=== PATIENT | male | born 1980 | race American Indian/Alaskan Native ===

== ENCOUNTER 2021-05-23 12:15 | Inpatient (IN) | payer OTHER ==
[2021-05-23] MEDS ORDERED: KETAMINE 500 MG/5 ML VIAL MDV ONE (12:18)
[2021-05-23] MEDS ORDERED: MINERAL OIL/PETROLATUM, WHITE OPHTH OINT 3.5 GM OU PRN (12:34)
[2021-05-23] MEDS ORDERED: LIP THERAPY VASELINE TP PRN (12:34)
[2021-05-23] MEDS ORDERED: KETAMINE 500 MG/5 ML VIAL MDV IV ONE (12:36)
[2021-05-23] MEDS ORDERED: TETANUS,DIPH,PERTUSS(ACELL) VACCINE 0.5 ML SYRINGE IM ONE ×2 (12:37→18:04)
--- NOTE | 2021-05-23 12:38 | Emergency Department Report ---
ED General Adult HPI - General Chief complaint: Altered Mental Status Stated complaint: UNRESPONSIVE PUI?: No Time Seen by Provider: 05/23/21 12:33 Source: EMS (Verbal report received from emergency medical services. EMS documentation not available at time of chart dictation ), RN notes reviewed, old records reviewed Mode of arrival: Stretcher Limitations: Altered Mental Status, Physical Limitation - History of Present Illness Initial comments: The patient is a 41-year-old gentleman. He is not known to myself previously. He appears to have a history of morbid obesity, hypertension, and obstructive sleep apnea. The patient arrives with EMS. History obtained from EMS as the patient is altered. EMS presents with this patient while he is receiving hys-[id number]-[id number] ventilation, with a nasal trumpet. EMS reports that they were called for complaint of altered mental status. They are not certain of the patient's last known well time. They state that the patient was apparently altered in the field, and slid down to the floor from a bed. They reported to myself her normal Accu-Chek, and it was reported to EMS that the patient is compliant with CPAP/BiPAP. EMS reported to myself that the patient moves 4 extremities in the field. EMS unable to obtain IV access in the field, and place left lower extremity IO. Upon arrival to the emergency room the patient is obtunded, without a gag reflex. Accu-Chek acceptable. EMS did report that the patient was hypoxic in the field EMS reports that they gave Narcan in the field with no effect. EMS reports they believe the patient aspirated prior to their arrival, or in the field. Patient intubated emergently for airway protection. Please see my procedure note. Patient is now post intubation. He does respond to stimuli and moves extremities intermittently. He is not able to describe the qualitative nature of symptoms, exacerbating factors, relieving factors or aggravating factors. No additional history is available at this time. Patient at this point time is not accompanied by friends or family at this time for collateral information or additional information EMS reported to myself that the patient had recently been at [facility]. -: unknown - Related Data Previous Rx's Medication Instructions Recorded Last Taken Type Amoxicillin [Amoxicillin TAB] 875 mg PO BID #20 tablet 11/12/14 Unknown Rx Allergies Allergy/AdvReac Type Severity Reaction Status Date / Time No Known Allergies Allergy Unverified 11/12/14 11:12 ED Review of Systems ROS: Stated complaint: UNRESPONSIVE Other details as noted in HPI Comment: Unobtainable due to pts medical conditions ED Past Medical Hx - Past Medical History Hx Hypertension: Yes - Social History Smoking Status: Never Smoker Substance Use Type: None - Medications Home Medications: Home Medications Medication Instructions Recorded Confirmed Last Taken Type Amoxicillin [Amoxicillin TAB] 875 mg PO BID #20 tablet 11/12/14 Unknown Rx ED Physical Exam - General Limitations: Altered Mental Status General appearance: obtunded - Head Head exam: Present: atraumatic, normocephalic - Eye Eye exam: Absent: normal appearance (Pupils are 2 mm, and minimally react to light) - ENT ENT exam: Present: mucous membranes dry, normal external ear exam, other (Oral secretions noted in the oropharynx. Poor dentition.). Absent: normal orophrayn x - Neck Neck exam: Present: normal inspection. Absent: tenderness, meningismus - Respiratory Respiratory exam: Present: respiratory distress, rhonchi, accessory muscle use. Absent: stridor - Cardiovascular Cardiovascular Exam: Present: regular rate, normal rhythm, normal heart sounds, JVD. Absent: bradycardia, tachycardia, irregular rhythm - GI/Abdominal GI/Abdominal exam: Present: soft. Absent: distended, tenderness, guarding, rebound, rigid, pulsatile mass - Rectal Rectal exam: Present: normal inspection - exam: Present: normal inspection External exam: Present: normal external exam - Extremities Exam Extremities exam: Present: pedal edema (2-3+ edema in the bilateral lower extrem ity), other (I/O line noted in the left lower extremity). Absent: normal inspection (Patient has an avulsed left great toenail. There is a superficial wound noted to the left great toe), tenderness - Back Exam Back exam: Absent: tenderness, CVA tenderness (R), CVA tenderness (L), paraspinal tenderness, vertebral tenderness - Neurological Exam Neurological exam: Present: altered, other (Upon arrival the patient is non verbal. Presents with a GCS of 3) - Skin Skin exam: Present: warm, dry, intact, normal color. Absent: rash ED Course Vital Signs 05/23/21 05/23/21 05/23/21 12:15 12:20 12:34 Temperature 99.1 F Pulse Rate 91 H 85 Respiratory 27 H 16 Rate Blood Pressure 121/76 70/34 Blood Pressure [Right] O2 Sat by Pulse 84 94 92 Oximetry 05/23/21 05/23/21 05/23/21 12:45 12:50 12:56 Temperature Pulse Rate 67 96 H 91 H Respiratory 16 23 15 Rate Blood Pressure 106/50 106/50 Blood Pressure [Right] O2 Sat by Pulse 93 95 93 Oximetry 05/23/21 05/23/21 05/23/21 13:00 13:06 13:10 Temperature Pulse Rate 90 89 90 Respiratory 15 16 16 Rate Blood Pressure 106/50 146/76 146/76 Blood Pressure [Right] O2 Sat by Pulse 95 95 96 Oximetry 05/23/21 05/23/21 05/23/21 13:16 13:20 13:26 Temperature Pulse Rate 90 88 81 Respiratory 16 19 13 Rate Blood Pressure 146/76 139/98 139/98 Blood Pressure [Right] O2 Sat by Pulse 96 97 96 Oximetry 05/23/21 05/23/21 05/23/21 13:30 13:36 13:40 Temperature Pulse Rate 83 81 85 Respiratory 10 L 16 13 Rate Blood Pressure 139/98 98/79 98/79 Blood Pressure [Right] O2 Sat by Pulse 94 94 96 Oximetry 05/23/21 05/23/21 05/23/21 13:46 13:50 13:56 Temperature Pulse Rate 84 85 85 Respiratory 9 L 14 15 Rate Blood Pressure 98/79 129/64 129/64 Blood Pressure [Right] O2 Sat by Pulse 97 97 98 Oximetry 05/23/21 05/23/21 05/23/21 14:00 14:06 14:10 Temperature Pulse Rate 84 85 82 Respiratory 16 14 13 Rate Blood Pressure 129/64 143/82 143/82 Blood Pressure [Right] O2 Sat by Pulse 98 98 99 Oximetry 05/23/21 05/23/21 05/23/21 14:16 14:20 14:26 Temperature Pulse Rate 83 85 84 Respiratory 24 14 17 Rate Blood Pressure 143/82 143/82 143/82 Blood Pressure [Right] O2 Sat by Pulse 92 99 95 Oximetry 05/23/21 05/23/21 05/23/21 14:30 14:40 14:45 Temperature Pulse Rate 84 84 Respiratory 18 16 Rate Blood Pressure 143/82 98/79 94/28 Blood Pressure [Right] O2 Sat by Pulse 95 63 L Oximetry 05/23/21 05/23/21 05/23/21 14:50 14:56 15:00 Temperature Pulse Rate 82 75 86 Respiratory 16 17 17 Rate Blood Pressure 100/40 100/40 100/40 Blood Pressure [Right] O2 Sat by Pulse 96 94 98 Oximetry 05/23/21 05/23/21 05/23/21 15:06 15:10 15:16 Temperature Pulse Rate 81 80 79 Respiratory 24 14 16 Rate Blood Pressure 95/48 95/48 95/48 Blood Pressure [Right] O2 Sat by Pulse 98 99 98 Oximetry 05/23/21 05/23/21 05/23/21 15:20 15:30 15:46 Temperature Pulse Rate 77 81 80 Respiratory 16 22 24 Rate Blood Pressure 93/41 107/84 90/53 Blood Pressure [Right] O2 Sat by Pulse 99 99 100 Oximetry 05/23/21 05/23/21 05/23/21 16:00 16:16 16:23 Temperature Pulse Rate 82 83 82 Respiratory 24 24 Rate Blood Pressure 81/30 87/39 93/41 Blood Pressure [Right] O2 Sat by Pulse 97 95 100 Oximetry 05/23/21 05/23/21 05/23/21 16:30 16:46 17:00 Temperature Pulse Rate 81 70 75 Respiratory 24 21 22 Rate Blood Pressure 86/59 95/62 93/54 Blood Pressure [Right] O2 Sat by Pulse 96 97 95 Oximetry 05/23/21 05/23/21 05/23/21 17:16 17:40 17:46 Temperature Pulse Rate 78 79 77 Respiratory 24 16 7 L Rate Blood Pressure 93/54 98/44 Blood Pressure 113/76 [Right] O2 Sat by Pulse 97 63 L 96 Oximetry 05/23/21 05/23/21 05/23/21 17:50 18:00 18:15 Temperature Pulse Rate 79 74 80 Respiratory 24 16 Rate Blood Pressure 89/35 89/35 92/45 Blood Pressure [Right] O2 Sat by Pulse 97 96 98 Oximetry 05/23/21 05/23/21 18:30 18:48 Temperature Pulse Rate 76 81 Respiratory 21 25 H Rate Blood Pressure 103/52 Blood Pressure 91/52 [Right] O2 Sat by Pulse 98 97 Oximetry - Reevaluation(s) Reevaluation #1: 05/23/21 14:33 Differential diagnosis, including but not limited to: Hypercapnic respiratory failure, hypoxemic respiratory failure, metabolic acidosis, encephalopathy, intracranial hemorrhage, bony cervical spine injury, electrolyte derangement, pneumonia, urinary tract infection, DVT, pulmonary embolism, congestive heart failure, pulmonary hypertension Assessment and plan: 41-year-old gentleman who is morbidly obese, with evidence of acute respiratory failure, requiring intubation and mechanical ventilation. Given body habitus and history, I highly suspect hypoxemic and hypercapnic respiratory failure. The patient is intubated. Contacted critical care physician on-call, Dr. Ramsey Discussed the patient's history, physical, and overall clinical impression. Requests arterial blood gas, and states that he will discuss appropriate ventilator settings with respiratory therapist. Agrees with my initial settings of volume AC, tidal volume 500, PEEP of 8, respiratory rate of 16. Patient is also found to have an avulsion to the left great toe. Local wound care will be ordered. Patient was medicated empirically with ceftriaxone and azithromycin for presumed pneumonia/and/or aspiration. Noncontrast CT scan of the brain and cervical spine ordered. CT scan of the chest is ordered. The patient may be too obese to fit on the CT scanner for CT scan of the chest. Therefore, a lower extremity DVT study was acquired, and was negative for acute findings. Doubt Covid at this time, but we will order Covid swab as well. The patient will require admission to our ICU once his initial diagnostics have been completed. Please note that this patient experienced a delay in disposition as the phlebotomy team had difficulty obtaining laboratory studies. Therefore, have requested that respiratory therapy obtain arterial blood gas, and simultaneously obtain needed laboratory studies for our phlebotomy colleagues. 05/23/21 15:57 Laboratory studies demonstrate hyperammonemia, and renal insufficiency. Elevated troponin is likely a type II troponin leak. IV fluids, and lactulose ordered. Garcia catheter in place, draining dark yellow urine. Blood pressure reviewed and appreciated. Blood pressure cuff is noted to be around the patient's elbow/forearm. It is not around his upper extremity as it should be. Have communicated to nursing team the need to reposition the blood pressure cuff. CT angiogram chest will be canceled. 05/23/21 17:40 Blood pressure 96 systolic milliliters of mercury. Hospital physician, Dr. Jacobo Hill to admit to ICU I have personally evaluated the patient's noncontrast CT scan of the brain. I do not appreciate any abnormality. I have evaluated the noncontrast CT scan of the cervical spine. I do not appreciate any abnormality. Formal radiology interpretation pending 05/23/21 17:43 05/23/21 19:39 Blood pressure improved, 110 systolic. - EJ/Peripheral Line Neck R Time Out Performed: No (Emergency situation) Indications: multiple IV sites needed Skin Cleansed in Sterile Fashion: Yes Size: 20 Dressing Placed: Tegaderm Patient Tolerated Procedure: well - Intubation Time Out Performed: No (Emergency situation) Sedative: Ketamine Mg Given: 100 Laryngoscope: fiberoptic video scope Size: 4 ET Tube Size: 7.5 Tube Secured Depth (cm): 23 Tube Secured Location: teeth Tube Placement Confirmation: visualized tube passing t, equal breath sounds bilat, no breath sounds over epi, confirmation by capnometr Patient Tolerated Procedure: well Intubation Complications: difficult intubation Additional Comments: Upon arrival, patient hypoxic, without a gag reflex. He has a nasal trumpet in the right nostril, and is receiving [id number]-raxhj-cdap ventilation. He does not have a gag reflex. He is not protecting his airway, has evidence of oral secretions in the oropharynx. Patient placed on nasal cannula at 15 L/min. R eceives [id number]-biof ventilation. Video laryngoscopy performed, larynx is identified easily, and aggressively suctioned. The patient did not require preintubation paralysis or induction, and a 7.5 endotracheal tube is inserted in the trachea/larynx under direct visualization. ED Medical Decision Making - Lab Data Result diagrams: 05/23/21 15:09 05/23/21 15:09 Vital Signs 05/23/21 05/23/21 05/23/21 12:15 12:20 12:45 Temperature 99.1 F Pulse Rate 91 H 85 67 Respiratory 27 H 16 Rate Blood Pressure 121/76 70/34 O2 Sat by Pulse 84 94 93 Oximetry 05/23/21 12:50 Temperature Pulse Rate 96 H Respiratory 23 Rate Blood Pressure 106/50 O2 Sat by Pulse 95 Oximetry - EKG Data -: EKG Interpreted by Ak EKG shows normal: sinus rhythm Rate: normal - EKG Data When compared to previous EKG there are: previous EKG unavailable 05/23/21 14:32 The EKG is interpreted at 12: 40 Sinus rhythm, 85 bpm. Normal axis, normal P wave axis, QTC 477 ms. Incomplete right bundle branch block. Lateral T wave abnormalities. This is an abnormal EKG. This is not a STEMI. - Radiology Data Radiology results: pending, report reviewed, image reviewed CHEST 1 VIEW 05/23/2021 12:09 PM INDICATION / CLINICAL INFORMATION: Altered Mental Status /ett placement. COMPARISON: None available. FINDINGS: SUPPORT DEVICES: The tip of the endotracheal tube is positioned approximately 1 cm above the jade. Nasogastric tube descends into the stomach. HEART / MEDIASTINUM: There is enlargement of the cardiac silhouette. LUNGS / PLEURA: There are low lung volumes bilaterally. There is elevation of the right hemidiaphragm. No pneumothorax is seen. No pneumothorax. ADDITIONAL FINDINGS: No significant additional findings. IMPRESSION: 1. The tip of endotracheal tube is positioned approximately 1 cm above the jade. 2. There are low lung volumes. There is elevation of the right hemidiaphragm. 3. There is enlargement of the cardiac silhouette. Signer Name: Jag Swift MD Signed: 05/23/2021 12:17 PM Workstation Name: [id number] LEFT GREAT TOE 5 VIEWS INDICATION / CLINICAL INFORMATION: Left great toe injury and in a lot of pain with limited movement. COMPARISON: None available. FINDINGS: BONES / JOINT(S): There is slight hallux valgus. No acute fracture or subluxation. There are small dorsal and plantar calcaneal spurs. There are are mild degenerative changes involving the dorsum of the midfoot. SOFT TISSUES: There is mild soft tissue swelling involving the dorsum of the foot distally. ADDITIONAL FINDINGS: None. Signer Name: Jp Cerna MD Signed: 05/23/2021 12:14 PM Workstation Name: [id number] DUPLEX DOPPLER LOWER EXTREMITY VEINS, BILATERAL INDICATION / CLINICAL INFORMATION: Lower extremity swelling; acute respiratory failure. Unresponsive. TECHNIQUE: Duplex doppler imaging was performed through the veins of both lower extremities using venous compression and other maneuvers. COMPARISON: None available. FINDINGS: RIGHT COMMON FEMORAL VEIN: Negative. RIGHT FEMORAL VEIN: Negative. RIGHT POPLITEAL VEIN: Negative. RIGHT CALF VEINS: Negative. LEFT C OMMON FEMORAL VEIN: Negative. LEFT FEMORAL VEIN: Negative. LEFT POPLITEAL VEIN: Negative. LEFT CALF VEINS: Negative. ADDITIONAL FINDINGS: No abnormal mass or fluid collection is seen. IMPRESSION: No sonographic evidence for DVT in either lower extremity. Signer Name: Jp Cerna MD Signed: 05/23/2021 1:01 PM Workstation Name: [id number] CT head/brain wo con INDICATION / CLINICAL INFORMATION: 41 years Male; Altered Mental Status. TECHNIQUE: Routine CT head without contrast. All CT scans at this location are performed using CT dose reduction for ALARA by means of automated exposure control. COMPARISON: None. FINDINGS: BRAIN / INTRACRANIAL CONTENTS: No acute hemorrhage, mass effect, midline shift, hydrocephalus, or acute, large territorial infarct. No signs of significant atrophy or chronic infarct. No significant white matter abnormality seen. CRANIOCERVICAL JUNCTION: No significant abnormality. ORBITS: No significant abnormality of visualized orbits. SINUSES / MASTOIDS: Air-fluid level seen in the right maxillary antrum, which is partially opacified. Partial opacification of the mastoids noted on the right. Patient is intubated. NG tube is in place. ADDITIONAL FINDINGS: Subcutaneous soft tissue swelling seen in the right parietal region. No signs of underlying calvarial fracture. IMPRESSION: 1. No focal mass, hemorrhage, hydrocephalus, or acute, large territorial infarct. Signer Name: Ivan Archuleta MD, III Signed: 05/23/2021 5:09 PM Workstation Name: [id number] CT cervical spine wo con INDICATION / CLINICAL INFORMATION: 41 years Male; ams fell. TECHNIQUE: Axial CT images of the cervical spine were obtained. Sagittal and coronal reformatted images were produced. All CT scans at this location are performed using CT dose reduction for ALARA by means of automated exposure control. COMPARISON: None available. FINDINGS: POST-SURGICAL CHANGES: None. ALIGNMENT: No significant abnormality. VERTEBRAE: No signs of fracture. Vertebral bodies are grossly normal in height throughout. No significant facet joint disease or osseous foraminal narrowing appreciated. INTRAVERTEBRAL DISCS: Disc spaces are fairly well-maintained throughout without significant canal stenosis. PARASPINAL SOFT TISSUES: No significant abnormality. ADDITIONAL FINDINGS: Mild to moderate mucosal thickening in the ethmoids. Air-fluid level with moderate opacification seen in the right maxillary antrum. Partial opacification of the mastoids and middle ear cavity noted. Desiccated secretions seen in the nasopharynx. Patient is intubated. NG tube is in place. Poor dentition noted. Right upper lobe consolidation suggested posteriorly. IMPRESSION: 1. No signs of acute bony trauma to the cervical spine. 2. Right upper lobe consolidation suggested posteriorly. Signer Name: Ivan Archuleta MD, III Signed: 05/23/2021 5:12 PM Critical Care Time: Yes Critical care time in (mins) excluding proc time.: 65 Critical care attestation.: If time is entered above; I have spent that time in minutes in the direct care of this critically ill patient, excluding procedure time. ED Disposition Clinical Impression: Acute respiratory failure, Morbid obesity, Acute encephalopathy, Hyperammonemia, Renal insufficiency, Consolidation lung Disposition: ADMITTED INPATIENT Is pt being admited?: Yes Does the pt Need Aspirin: No Condition: Critical Referrals: PRIMARY CARE, [Primary Care Provider] - 3-5 Days
[2021-05-23] MEDS ORDERED: cefTRIAXone/NS 2 GM/100 ML 2 GM/100 ML BAG IV ONE (13:18)
[2021-05-23] MEDS ORDERED: AZITHROMYCIN/NS 500 MG/250 ML 500 MG/250 ML BAG IV ONE (13:18)
--- NOTE | 2021-05-23 13:19 | XRay Report ---
LEFT GREAT TOE 5 VIEWS INDICATION / CLINICAL INFORMATION: Left great toe injury and in a lot of pain with limited movement. COMPARISON: None available. FINDINGS: BONES / JOINT(S): There is slight hallux valgus. No acute fracture or subluxation. There are small do rsal and plantar calcaneal spurs. There are are mild degenerative changes involving the dorsum of the midfoot. SOFT TISSUES: There is mild soft tissue swelling involving the dorsum of the foot distally. ADDITIONAL FINDINGS: None. Signer Name: Jp Cerna MD Signed: 05/23/2021 1:14 PM Workstation Name: [id number]
--- NOTE | 2021-05-23 13:21 | XRay Report ---
CHEST 1 VIEW 05/23/2021 12:09 PM INDICATION / CLINICAL INFORMATION: Altered Mental Status /ett placement. COMPARISON: None available. FINDINGS: SUPPORT DEVICES: The tip of the endotracheal tube is positioned approximately 1 cm above the jade. Nasogastric tube descends into the stomach. HEART / MEDIASTINUM: There is enlargement of the cardiac silhouette. LUNGS / PLEURA: There are low lung volumes bilaterally. There is elevation of the right hemidiaphragm . No pneumothorax is seen. No pneumothorax. ADDITIONAL FINDINGS: No significant additional findings. IMPRESSION: 1. The tip of endotracheal tube is positioned approximately 1 cm above the jade. 2. There are low lung volumes. There is elevation of the right hemidiaphragm. 3. There is enlargement of the cardiac silhouette. Signer Name: Jag Swift MD Signed: 05/23/2021 1:17 PM Workstation Name: [id number]
--- NOTE | 2021-05-23 14:06 | Vascular Lab Report ---
DUPLEX DOPPLER LOWER EXTREMITY VEINS, BILATERAL INDICATION / CLINICAL INFORMATION: Lower extremity swelling; acute respiratory failure. Unresponsive. TECHNIQUE: Duplex doppler imaging was performed through the veins of both lower extremities using venous rimma eamon and other maneuvers. COMPARISON: None available. FINDINGS: RIGHT COMMON FEMORAL VEIN: Negative. RIGHT FEMORAL VEIN: Negative. RIGHT POPLITEAL VEIN: Negative. RIGHT CALF VEINS: Negative. LEFT COMMON FEMORAL VEIN: Negative. LEFT FEMORAL VEIN: Negative. LEFT POPLITEAL VEIN: Negative. LEFT CALF VEINS: Negative. ADDITIONAL FINDINGS: No abnormal mass or fluid collection is seen. IMPRESSION: No sonographic evidence for DVT in either lower extremity. Signer Name: Jp Cerna MD Signed: 05/23/2021 2:01 PM Workstation Name: [id number]
[2021-05-23 15:11] LABS: ABG Base Excess -1.1 mmol/L (-2.0-3.0); ABG HCO3 28.4 mmol/L (20.0-26.0); ABG Methemoglobin 0.6 % (0.0-1.5); ABG Oxygen Saturation 95.1 % (95.0-99.0); ABG PCO2 71.9 mm Hg; ABG PH 7.215 pH Units (7.350-7.450); ABG PO2 86.5 mm Hg (80.0-90.0)
[2021-05-23 15:26] LABS: Eosinophils % (Auto) 0.2 % (0.0-4.3); INR 1.36 (0.87-1.13); Monocytes # (Auto) 0.6 K/mm3 (0.0-0.8); Monocytes % (Auto) 6.1 % (0.0-7.3); Partial Thromboplastin Time 23.1 Sec. (24.2-36.6)
[2021-05-23 15:28] LABS: Hemoglobin 13.1 gm/dl (11.8-15.2); Mean Corpuscular Volume 95 fl (84-94); Red Blood Count 4.51 M/mm3 (3.65-5.03)
[2021-05-23 15:29] LABS: Basophils % (Auto) 0.3 % (0.0-1.8); Lymphocytes # (Auto) 0.6 K/mm3 (1.2-5.4); Lymphocytes % (Auto) 5.9 % (13.4-35.0); Mean Corpuscular HGB Conc 30 % (32-34); Platelet Count 177 K/mm3 (140-440); Red Cell Distribution Width 20.1 % (13.2-15.2)
[2021-05-23 15:43] LABS: Calcium 8.6 mg/dL (8.4-10.2)
[2021-05-23] MEDS ORDERED: LACTULOSE 20 GM/30 ML ORAL LIQD PO ONE (15:56)
[2021-05-23] MEDS ORDERED: LACTATED RINGERS 1,000 ML IV ONE (15:56)
[2021-05-23] MEDS ORDERED: SODIUM CHLORIDE 0.9% 1000 ML 1,000 ML IV ONE (16:18)
[2021-05-23 16:19] LABS: Chol/HDL Ratio 3.65 %
--- NOTE | 2021-05-23 18:13 | Cat Scan Report ---
CT head/brain wo con INDICATION / CLINICAL INFORMATION: 41 years Male; Altered Mental Status. TECHNIQUE: Routine CT head without contrast. All CT scans at this location are performed using CT dos e reduction for ALARA by means of automated exposure control. COMPARISON: None. FINDINGS: BRAIN / INTRACRANIAL CONTENTS: No acute hemorrhage, mass effect, midline shift, hydrocephalus, or acu te, large territorial infarct. No signs of significant atrophy or chronic infarct. No significant whi te matter abnormality seen. CRANIOCERVICAL JUNCTION: No significant abnormality. ORBITS: No significant abnormality of visualized orbits. SINUSES / MASTOIDS: Air-fluid level seen in the right maxillary antrum, which is partially opacified. Partial opacification of the mastoids noted on the right. Patient is intubated. NG tube is in place. ADDITIONAL FINDINGS: Subcutaneous soft tissue swelling seen in the right parietal region. No signs of underlying calvarial fracture. IMPRESSION: 1. No focal mass, hemorrhage, hydrocephalus, or acute, large territorial infarct. Signer Name: Ivan Archuleta MD, III Signed: 05/23/2021 6:09 PM Workstation Name: [id number]
--- NOTE | 2021-05-23 18:16 | Cat Scan Report ---
CT cervical spine wo con INDICATION / CLINICAL INFORMATION: 41 years Male; ams fell. TECHNIQUE: Axial CT images of the cervical spine were obtained. Sagittal and coronal reformatted images were pr oduced. All CT scans at this location are performed using CT dose reduction for ALARA by means of aut omated exposure control. COMPARISON: None available. FINDINGS: POST-SURGICAL CHANGES: None. ALIGNMENT: No significant abnormality. VERTEBRAE: No signs of fracture. Vertebral bodies are grossly normal in height throughout. No signif icant facet joint disease or osseous foraminal narrowing appreciated. INTRAVERTEBRAL DISCS: Disc spaces are fairly well-maintained throughout without significant canal wenceslao nosis. PARASPINAL SOFT TISSUES: No significant abnormality. ADDITIONAL FINDINGS: Mild to moderate mucosal thickening in the ethmoids. Air-fluid level with modera te opacification seen in the right maxillary antrum. Partial opacification of the mastoids and middle ear cavity noted. Desiccated secretions seen in the nasopharynx. Patient is intubated. NG tube is in place. Poor dentition noted. Right upper lobe consolidation suggested posteriorly. IMPRESSION: 1. No signs of acute bony trauma to the cervical spine. 2. Right upper lobe consolidation suggested posteriorly. Signer Name: Ivan Archuleta MD, III Signed: 05/23/2021 6:12 PM Workstation Name: [id number]
[2021-05-23] MEDS ORDERED: SODIUM CHLORIDE 0.9% 1000 ML 2,000 ML IV ONE (18:45)
--- NOTE | 2021-05-23 18:49 | Consultation ---
History of Present Illness Consult date: 05/23/21 Requesting physician: SHWETA MOORE Reason for consult: other (Acute hypercapnic and hypoxemic Respiratory [place]; PUI COVID-19) History of present illness: PCCM CONSULT NOTE (Full dictation # [id number]) Please see dictated notes for full details Medications and Allergies Allergies Allergy/AdvReac Type Severity Reaction Status Date / Time No Known Allergies Allergy Unverified 11/12/14 11:12 Home Medications Medication Instructions Recorded Confirmed Last Taken Type Amoxicillin [Amoxicillin TAB] 875 mg PO BID #20 tablet 11/12/14 Unknown Rx Active Meds: Active Medications Famotidine (Famotidine 20 Mg/2 Ml Inj) 20 mg IV BID [facility] Fentanyl (Fentanyl 100 Mcg/2 Ml Inj) 50 mcg IV Q10MIN PRN PRN Reason: ANALGESIA Hydrophilic Ointment (Lip Therapy Vaseline) 1 applic TP Q2HR PRN PRN Reason: Dry Lips Fentanyl Citrate (Fentanyl Drip Premix) 2,000 mcg in 100 mls @ 8.528 mls/hr IV TITR [facility]; Protocol Sodium Chloride (Nacl 0.9% 1000 Ml) 2,000 mls @ 999 mls/hr IV BOLUS ONE Stop: 05/23/21 20:45 Multi-Ingred Cream/Lotion/Oil/Oint (Mineral Oil/Petrolatum, White Ophth Oint 3.5 Gm) 1 applic OU Q4HR PRN PRN Reason: Dry Eye(s) Senna/Docusate Sodium (Sennosides/Docusate Sodium 8.6/50 Mg Tab) 1 tab FEEDTUBE BID [facility] Physical Examination Vital signs: Vital Signs Temp Pulse Resp BP Pulse Ox 99.1 F 91 H 27 H 121/76 84 05/23/21 12:15 05/23/21 12:15 05/23/21 12:15 05/23/21 12:15 05/23/21 12:15 Results - Laboratory Findings CBC and BMP: 05/23/21 15:09 05/23/21 15:09 ABG ABG pH 7.215 pH Units (7.350-7.450) L 05/23/21 15:00 ABG pCO2 71.9 mm Hg 05/23/21 15:00 ABG pO2 86.5 mm Hg (80.0-90.0) 05/23/21 15:00 ABG O2 Saturation 95.1 % (95.0-99.0) 05/23/21 15:00 PT/INR, D-dimer PT 18.1 Sec. (12.2-14.9) H 05/23/21 15:09 INR 1.36 (0.87-1.13) H 05/23/21 15:09 Abnormal lab findings: Abnormal Labs 05/23/21 05/23/21 05/23/21 15:00 15:09 15:09 MCV 95 H MCHC 30 L RDW 20.1 H Lymph % (Auto) 5.9 L Lymph # (Auto) 0.6 L Seg Neutrophils % 87.5 H Seg Neutrophils # 8.2 H PT 18.1 H INR 1.36 H APTT 23.1 L ABG pH 7.215 L ABG HCO3 28.4 H ABG Hemoglobin 13.5 L Oxyhemoglobin 92.6 L Potassium BUN Creatinine Glucose AST ALT Ammonia Total Creatine Kinase Troponin T NT-Pro-B Natriuret Pep Albumin HDL Cholesterol Salicylates Acetaminophen 05/23/21 05/23/21 05/23/21 15:09 15:09 15:09 MCV MCHC RDW Lymph % (Auto) Lymph # (Auto) Seg Neutrophils % Seg Neutrophils # PT INR APTT ABG pH ABG HCO3 ABG Hemoglobin Oxyhemoglobin Potassium 5.2 H BUN 40 H Creatinine 3.2 H Glucose 133 H AST 1094 H ALT 1089 H Ammonia 75.0 H Total Creatine Kinase Troponin T 0.038 H NT-Pro-B Natriuret Pep Albumin 3.0 L HDL Cholesterol 29 L Salicylates < 0.3 L Acetaminophen 05/23/21 05/23/21 15:09 15:09 MCV MCHC RDW Lymph % (Auto) Lymph # (Auto) Seg Neutrophils % Seg Neutrophils # PT INR APTT ABG pH ABG HCO3 ABG Hemoglobin Oxyhemoglobin Potassium BUN Creatinine Glucose AST ALT Ammonia Total Creatine Kinase 48 L Troponin T NT-Pro-B Natriuret Pep 00247 H Albumin HDL Cholesterol Salicylates Acetaminophen 5.0 L
[2021-05-23] MEDS: fentaNYL 100 MCG/2 ML INJ IV PRN (18:50)
[2021-05-23] MEDS: fentaNYL DRIP Premix 2,000 MCG/100 ML BAG IV SCH (19:36)
[2021-05-23] MEDS: HEPARIN 5,000 UNIT/1 ML VIAL SUB-Q SCH (19:51)
[2021-05-23] MEDS: NORepinephrine/NS 4 MG-250 ML 4 MG/250 ML BAG IV SCH (19:59)
[2021-05-23] MEDS ORDERED: methylPREDNISolone Sod Succinate 40 MG/1 ML INJ IV ONE (20:00)
[2021-05-23] MEDS ORDERED: IPRATROPIUM/ALBUTEROL SULFATE 3 ML AMPUL.NEB IH SCH (20:00)
--- NOTE | 2021-05-23 20:40 | History and Physical Report ---
History of Present Illness Date of examination: 05/23/21 Date of admission: 05/23/21 17:43 Chief complaint: Severe respiratory distress for unknown time History of present illness: 41-year-old -[place] male morbidly obese with history of hypertension and obstructive sleep apnea called EMS for severe respiratory distress. The EMS arrived the patient was altered and patient's slid down from the bed to the floor. Patient was totally altered and confused. Bladder wall mass was initiated. Patient moves moving all 4 extremities. Decreased responsiveness. No fever. Vaccination status not known. ED course because of the patient's lethargy and severe respiratory distress patient was intubated for airway protection and for maintaining oxygenation. - Past Medical History --Hypertension: Yes - Past surgical history -- Not available - Social History --Smoking Status: Never Smoker --Substance Use Type: None Family history --unavailable -Review of Systems --Stated complaint: UNRESPONSIVE --Other details as noted in HPI --Comment: Unobtainable due to pts medical conditions Medications and Allergies Allergies Allergy/AdvReac Type Severity Reaction Status Date / Time No Known Allergies Allergy Unverified 11/12/14 11:12 Home Medications Medication Instructions Recorded Confirmed Last Taken Type Amoxicillin [Amoxicillin TAB] 875 mg PO BID #20 tablet 11/12/14 Unknown Rx Active Meds: Active Medications Albuterol/Ipratropium (Ipratropium/Albuterol Sulfate 3 Ml Ampul.Neb) 1 ampul IH TIDRT [facility] Ascorbic Acid (Ascorbic Acid 500 Mg Tab) 500 mg PO BID [facility] Famotidine (Famotidine 20 Mg/2 Ml Inj) 20 mg IV BID [facility] Fentanyl (Fentanyl 100 Mcg/2 Ml Inj) 50 mcg IV Q10MIN PRN PRN Reason: ANALGESIA Heparin Sodium (Porcine) (Heparin 5,000 Unit/1 Ml Vial) 5,000 unit SUB-Q Q8HR [facility] Last Admin: 05/23/21 19:51 Dose: 5,000 unit Documented by: Hydrophilic Ointment (Lip Therapy Vaseline) 1 applic TP Q2HR PRN PRN Reason: Dry Lips Fentanyl Citrate (Fentanyl Drip Premix) 2,000 mcg in 100 mls @ 8.528 mls/hr IV TITR [facility]; Protocol Last Admin: 05/23/21 19:36 Dose: 1 mcg/kg/hr, 8.528 mls/hr Documented by: Sodium Chloride (Nacl 0.9% 1000 Ml) 2,000 mls @ 999 mls/hr IV BOLUS ONE Stop: 05/23/21 20:45 Last Admin: 05/23/21 19:36 Dose: 999 mls/hr Documented by: Ceftriaxone Sodium (Rocephin/Ns 1 Gm/50 Ml) 1 gm in 50 mls @ 100 mls/hr IV Q24H [facility]; Protocol Stop: 05/28/21 13:59 Azithromycin (Zithromax/Ns) 500 mg in 250 mls @ 250 mls/hr IV Q24H [facility] Stop: 05/27/21 07:59 Norepinephrine (Levophed Drip 4 Mg/Ns 250 Ml) 4 mg in 250 mls @ 7.5 mls/hr IV T ITR [facility]; Protocol Last Titration: 05/23/21 20:31 Dose: 4 mcg/min, 15 mls/hr Documented by: Multi-Ingred Cream/Lotion/Oil/Oint (Mineral Oil/Petrolatum, White Ophth Oint 3.5 Gm) 1 applic OU Q4HR PRN PRN Reason: Dry Eye(s) Senna/Docusate Sodium (Sennosides/Docusate Sodium 8.6/50 Mg Tab) 1 tab FEEDTUBE BID [facility] Zinc Sulfate (Zinc Sulfate 220 Mg Cap) 220 mg PO BID [facility] Exam - Physical Exam Narrative exam: Morbidly obese individual with decreased responsiveness intubated - Constitutional Vitals: Temp Pulse Resp BP Pulse Ox 99.1 F 72 25 H 110/48 97 05/23/21 12:15 05/23/21 19:52 05/23/21 18:48 05/23/21 19:52 05/23/21 19:52 General appearance: Present: severe distress, well-nourished - EENT Eyes: Present: PERRL ENT: hearing intact, clear oral mucosa - Neck Neck: Present: supple, normal ROM - Respiratory Respiratory effort: normal Respiratory: bilateral: diminished, rhonchi, wheezing - Cardiovascular Heart rate: 88 Rhythm: regular Heart Sounds: Present: S1 & S2. Absent: rub, click - Extremities Extremities: no ischemia, pulses symmetrical, No edema, abnormal (Stasis dermatitis both lower extremities below knees) Extremity abnormal: other (Stasis dermatitis of both lower extremities below knees) Peripheral Pulses: within normal limits - Abdominal General gastrointestinal: Present: soft, non-tender, non-distended, normal bowel sounds Male genitourinary: Present: normal - Integumentary Integumentary: Present: clear, warm, dry - Musculoskeletal Musculoskeletal: generalized weakness - Psychiatric Psychiatric: other (Decreased responsiveness patient is sedated) - Neurologic Neurologic: moves all extremities, other (Decreased responsiveness) HEART Score - HEART Score Troponin: Troponin T 0.038 ng/mL (0.00-0.029) H 05/23/21 15:09 Results - Labs CBC & Chem 7: 05/24/21 04:55 05/24/21 04:55 Labs: Laboratory Last Values WBC 9.3 K/mm3 (4.5-11.0) 05/23/21 15:09 RBC 4.51 M/mm3 (3.65-5.03) 05/23/21 15:09 Hgb 13.1 gm/dl (11.8-15.2) 05/23/21 15:09 Hct 43.0 % (35.5-45.6) 05/23/21 15:09 MCV 95 fl (84-94) H 05/23/21 15:09 MCH 29 pg (28-32) 05/23/21 15:09 MCHC 30 % (32-34) L 05/23/21 15:09 RDW 20.1 % (13.2-15.2) H 05/23/21 15:09 Plt Count 177 K/mm3 (140-440) 05/23/21 15:09 Lymph % (Auto) 5.9 % (13.4-35.0) L 05/23/21 15:09 [place] % (Auto) 6.1 % (0.0-7.3) 05/23/21 15:09 Eos % (Auto) 0.2 % (0.0-4.3) 05/23/21 15:09 Baso % (Auto) 0.3 % (0.0-1.8) 05/23/21 15:09 Lymph # (Auto) 0.6 K/mm3 (1.2-5.4) L 05/23/21 15:09 [place] # (Auto) 0.6 K/mm3 (0.0-0.8) 05/23/21 15:09 Eos # (Auto) 0.0 K/mm3 (0.0-0.4) 05/23/21 15:09 Baso # (Auto) 0.0 K/mm3 (0.0-0.1) 05/23/21 15:09 Seg Neutrophils % 87.5 % (40.0-70.0) H 05/23/21 15:09 Seg Neutrophils # 8.2 K/mm3 (1.8-7.7) H 05/23/21 15:09 PT 18.1 Sec. (12.2-14.9) H 05/23/21 15:09 INR 1.36 (0.87-1.13) H 05/23/21 15:09 APTT 23.1 Sec. (24.2-36.6) L 05/23/21 15:09 D-Dimer 4444.85 ng/mlDDU (0-234) H 05/23/21 15:09 ABG pH 7.215 pH Units (7.350-7.450) L 05/23/21 15:00 ABG pCO2 71.9 mm Hg 05/23/21 15:00 ABG pO2 86.5 mm Hg (80.0-90.0) 05/23/21 15:00 ABG HCO3 28.4 mmol/L (20.0-26.0) H 05/23/21 15:00 ABG O2 Saturation 95.1 % (95.0-99.0) 05/23/21 15:00 ABG O2 Content 17.6 (0.0-44) 05/23/21 15:00 ABG Base Excess -1.1 mmol/L (-2.0-3.0) 05/23/21 15:00 ABG Hemoglobin 13.5 gm/dl (14.0-18.0) L 05/23/21 15:00 ABG Carboxyhemoglobin 2.0 % (0.0-5.0) 05/23/21 15:00 ABG Methemoglobin 0.6 % (0.0-1.5) 05/23/21 15:00 Oxyhemoglobin 92.6 % (95.0-99.0) L 05/23/21 15:00 FiO2 100 % 05/23/21 15:00 Sodium 138 mmol/L (137-145) 05/23/21 15:09 Potassium 5.2 mmol/L (3.6-5.0) H 05/23/21 15:09 Chloride 101.3 mmol/L (98-107) 05/23/21 15:09 Carbon Dioxide 23 mmol/L (22-30) 05/23/21 15:09 Anion Gap 19 mmol/L 05/23/21 15:09 BUN 40 mg/dL (9-20) H 05/23/21 15:09 Creatinine 3.2 mg/dL (0.8-1.3) H 05/23/21 15:09 Estimated GFR 26 ml/min 05/23/21 15:09 BUN/Creatinine Ratio 13 % 05/23/21 15:09 Glucose 133 mg/dL (75-100) H 05/23/21 15:09 Lactic Acid 1.50 mmol/L (0.7-2.0) 05/23/21 15:09 Calcium 8.6 mg/dL (8.4-10.2) 05/23/21 15:09 Magnesium 2.30 mg/dL (1.7-2.3) 05/23/21 15:09 Total Bilirubin 1.00 mg/dL (0.1-1.2) 05/23/21 15:09 AST 1094 units/L (5-40) H 05/23/21 15:09 ALT 1089 units/L (7-56) H 05/23/21 15:09 Alkaline Phosphatase 91 units/L (35-129) 05/23/21 15:09 Ammonia 75.0 umol/L (25-60) H 05/23/21 15:09 Total Creatine Kinase 48 units/L (55-170) L 05/23/21 15:09 Troponin T 0.038 ng/mL (0.00-0.029) H 05/23/21 15:09 C-Reactive Protein 10.00 mg/dL (0.00-1.30) H 05/23/21 19:10 NT-Pro-B Natriuret Pep 33299 pg/mL (0-450) H 05/23/21 15:09 Total Protein 7.6 g/dL (6.3-8.2) 05/23/21 15:09 Albumin 3.0 g/dL (3.9-5) L 05/23/21 15:09 Albumin/Globulin Ratio 0.7 % 05/23/21 15:09 Triglycerides 88 mg/dL (2-149) 05/23/21 15:09 Cholesterol 106 mg/dL (50-199) 05/23/21 15:09 LDL Cholesterol Direct 58 mg/dL (50-130) 05/23/21 15:09 HDL Cholesterol 29 mg/dL (40-59) L 05/23/21 15:09 Cholesterol/HDL Ratio 3.65 % 05/23/21 15:09 TSH 2.380 mlU/mL (0.270-4.200) 05/23/21 15:09 Salicylates < 0.3 mg/dL (2.8-20.0) L 05/23/21 15:09 Acetaminophen 5.0 ug/mL (10.0-30.0) L 05/23/21 15:09 Plasma/Serum Alcohol < 0.01 % (0-0.07) 05/23/21 15:09 Blood Type O POSITIVE 05/23/21 15:01 Antibody Screen Negative 05/23/21 15:01 Short CBC 05/23/21 05/24/21 Range/Units 15:09 04:55 WBC 9.3 8.7 (4.5-11.0) K/mm3 Hgb 13.1 13.2 (11.8-15.2) gm/dl Hct 43.0 43.2 (35.5-45.6) % Plt Count 177 183 (140-440) K/mm3 BMP 05/23/21 05/24/21 15:09 04:55 Sodium 138 141 Potassium 5.2 H 5.5 H Chloride 101.3 104.7 Carbon Dioxide 23 20 L BUN 40 H 39 H Creatinine 3.2 H 2.2 H Glucose 133 H 155 H Calcium 8.6 8.3 L Cardiac Enzymes 05/23/21 05/23/21 Range/Units 15:09 15:09 Total Creatine Kinase 48 L (55-170) units/L Troponin T 0.038 H (0.00-0.029) ng/mL Liver Function 05/23/21 05/24/21 Range/Units 15:09 04:55 Total Bilirubin 1.00 0.80 (0.1-1.2) mg/dL AST 1094 H 571 H (5-40) units/L ALT 1089 H 951 H (7-56) units/L Alkaline Phosphatase 91 84 (35-129) units/L Albumin 3.0 L 3.2 L (3.9-5) g/dL Urine 05/23/21 Range/Units Unknown Urine Color [place] (Yellow) Urine pH 5.0 (5.0-7.0) Ur Specific [place] 1.014 (1.003-1.030) Urine Protein 30 mg/dl (Negative) mg/dL Urine Glucose (UA) Neg (Negative) mg/dL Microbiology: Microbiology 05/23/21 15:09 Peripheral/Venous Blood Culture - Preliminary Culture in Progress 05/23/21 15:09 Peripheral/Venous Blood Culture - Preliminary Culture in Progress - Imaging and Cardiology EKG: report reviewed (Sinus tachycardia no acute ST-T wave changes) Imaging and Cardiology: Chest x-ray Low lung volumes evaluation of the right hemidiaphragm There is enlargement of the cardiac silhouette The tip of endotracheal tube is positioned approximately 1 cm above the jade Cervical spine CT No signs of acute bony trauma to the cervical spine Right upper lobe consolidation suggestive posteriorly Head CT No focal mass hemorrhage hydrocephalus or acute large territorial infarct Left great toe No acute findings Duplex scan venous No sonographic evidence for DVT in either lower extremity Assessment and Plan Assessment and plan: Critical care statement The high probability OF a clinically significant sudden or life-threatening deterioration of the cardiorespiratory system and endocrine system required my full and direct attention, intervention and postoperative management. The aggregate critical care time was 40 minutes. The time is in addition to time spent performing reported procedures but includes the followin: Data review and interpretation 2: Patient assessment and monitoring of vital signs 3: Documentation 4:: Medication orders and management Advance Directives: Yes (Full code) VTE prophylaxis?: Chemical Plan of care discussed with patient/family: Yes - Patient Problems (1) Acute respiratory failure with hypoxia Current Visit: Yes Status: Acute Plan to address problem: Patient is intubated and on vent support Vent management as per protocol IV Solu-Medrol at high doses IV antibiotics cefepime and vancomycin Small Boat Engineer consult Duo nebs [id number] And as needed (2) Acute encephalopathy Current Visit: Yes Status: Acute Plan to address problem: Secondary to hypoxia and possible hypercarbia (3) Systemic inflammatory response syndrome Current Visit: Yes Status: Acute Plan to address problem: Patient's inflammatory markers are very elevated with high D-dimers and CRP of 10. (4) Right lower lobe pneumonia Current Visit: Yes Status: Acute Plan to address problem: Questionable aspiration Patient started on cefepime and vancomycin also Zithromax to cover Legionella and atypical organisms (5) Morbid obesity Current Visit: Yes Status: Acute Plan to address problem: Patient to be referred to bariatric surgery at the time of discharge (6) Hyperammonemia Current Visit: Yes Status: Acute Plan to address problem: Etiology unclear Lactulose as needed (7) Transaminitis Current Visit: Yes Status: Acute Plan to address problem: Liver enzymes are highly elevated AST is 1094 and ALT is 1089 Acute hepatitis profile requested (8) Elevated brain natriuretic peptide (BNP) level Current Visit: Yes Status: Acute Plan to address problem: Echocardiogram for ejection fraction IV fluids discontinued Cardiology consult requested (9) Hyperkalemia Current Visit: Yes Status: Acute Plan to address problem: Corrected (10) DVT prophylaxis Current Visit: Yes Status: Acute Plan to address problem: On anticoagulation GI prophylaxis
[2021-05-23] MEDS ORDERED: ONDANSETRON 4 MG/2 ML INJ IV PRN (20:42)
[2021-05-23] MEDS ORDERED: HYDROmorphone 1 MG/1 ML INJ IV PRN (20:43)
[2021-05-23] MEDS ORDERED: MORPHINE 2 MG/1 ML INJ IV PRN (20:43)
[2021-05-23] MEDS ORDERED: IPRATROPIUM/ALBUTEROL SULFATE 3 ML AMPUL.NEB IH PRN (20:50)
[2021-05-23] MEDS ORDERED: CEFEPIME/NS 2 GM/100 ML 2 GM/100 ML BAG IV SCH (21:00)
[2021-05-23 21:07] LABS: ABG Base Excess -1.1 mmol/L (-2.0-3.0); ABG HCO3 25.2 mmol/L (20.0-26.0); ABG Methemoglobin 0.6 % (0.0-1.5); ABG Oxygen Saturation 94.4 % (95.0-99.0); ABG PCO2 48.6 mm Hg; ABG PH 7.332 pH Units (7.350-7.450)
[2021-05-23] MEDS ORDERED: ALBUTEROL 2.5 MG/3 ML NEBU IH PRN (21:11)
[2021-05-23 21:32] LABS: Amphetamine Screen,Urine Negative; Benzodiazepines Screen,Urine Negative; Cannabinoid Screen,Urine Negative; Cocaine Screen,Urine Negative; Methadone Screen,Urine Negative; Opiate Screen,Urine Negative
[2021-05-23] MEDS: SODIUM CHLORIDE 0.45% 1000 ML 1,000 ML IV SCH (21:46)
[2021-05-23 21:47] LABS: Bacteria,Urine 1+ /HPF (Negative); Bilirubin,Urine NEG (Negative); Blood,Urine MOD (Negative); Color,Urine Amber (Yellow); Mucus,Urine FEW /HPF
[2021-05-23] MEDS: methylPREDNISolone Sod Succinate 125 MG/2 ML INJ IV SCH (23:19)
[2021-05-23] MEDS: CEFEPIME/NS 2 GM/100 ML 2 GM/100 ML BAG IV SCH (23:19)
[2021-05-23] MEDS: FAMOTIDINE 20 MG/2 ML INJ IV SCH (23:19)
[2021-05-24] MEDS: fentaNYL DRIP Premix 2,000 MCG/100 ML BAG IV SCH ×6 (00:21→20:01)
[2021-05-24] MEDS: ZINC SULFATE 220 MG CAP PO SCH ×3 (00:22→21:39)
[2021-05-24] MEDS: SENNOSIDES/DOCUSATE SODIUM 8.6/50 MG TAB FEEDTUBE SCH ×3 (00:22→21:38)
[2021-05-24] MEDS: ASCORBIC ACID 500 MG TAB PO SCH ×3 (00:22→21:47)
[2021-05-24] MEDS: NORepinephrine/NS 4 MG-250 ML 4 MG/250 ML BAG IV SCH (04:23)
[2021-05-24 05:16] LABS: Mean Corpuscular HGB Conc 31 % (32-34); Mean Corpuscular Volume 95 fl (84-94); Platelet Count 183 K/mm3 (140-440); Red Blood Count 4.57 M/mm3 (3.65-5.03); Red Cell Distribution Width 19.4 % (13.2-15.2)
[2021-05-24 05:28] LABS: Hematocrit 43.2 % (35.5-45.6); Hemoglobin 13.2 gm/dl (11.8-15.2)
[2021-05-24 05:45] LABS: Albumin 3.2 g/dL (3.9-5); Calcium 8.3 mg/dL (8.4-10.2)
--- NOTE | 2021-05-24 06:25 | Consultation ---
DATE OF CONSULTATION: 05/23/2021 PULMONARY CRITICAL CARE CONSULT NOTE CONSULTING PHYSICIAN: Dr. Prabhu Seth. REASON FOR CONSULTATION: Acute hypercapnic and hypoxemic respiratory failure, on mechanical ventilatory support. CHIEF COMPLAINT AND HISTORY OF PRESENT ILLNESS: The patient is a 41-year-old morbidly obese male, unknown to me, presented to the Emergency Room via [facility] with altered mental status. He reportedly also has a history of obstructive sleep apnea and hypertension. He was receiving bag valve mask ventilation with a nasal trumpet at presentation. Evaluation by the Emergency Room physician showed that he required intubation to maintain an airway. He was obtunded at that time. He did not have a gag reflex and to protect his airway at the same time. We are asked to assist with management. When I stopped by to see him, he was resting in bed, on the mechanical ventilator. I believe his settings were assist control mode of ventilation, tidal volumes 450, rate was initially 18, PEEP of 6 and 100% FiO2. O2 sats when I saw him were about 98%. I do not have any history of vomiting or overt aspiration, although I cannot rule that out. The patient's tobacco use/abuse history is unknown, but he is described as a never smoker in the charts. The above is as much of the history of presentation as I have. PAST MEDICAL HISTORY: Hypertension, morbid obesity, obstructive sleep apnea. PAST SURGICAL HISTORY: Unknown. MEDICATIONS: He was on at the time I stopped by to see him according to the medication administration record included the following: Pepcid 20 mg IV b.i.d., fentanyl drip was going at 1 mcg per kilogram per hour. Senna, docusate 1 tablet p.o. b.i.d. ALLERGIES: No known drug allergies. DIET: Morbidly obese gentleman, acute weight loss or gain history is unknown. FAMILY AND SOCIAL HISTORY: Lives in the community, described as a never smoker. Alcohol, illicit drug use or abuse history are unknown. Family history is otherwise unknown. REVIEW OF SYSTEMS: Unobtainable secondary to the patient's medical and mental condition. Since he has been here, no gross hematochezia or melena, no gross hematuria, no hematemesis, no witnessed seizures, no bloody tracheal secretions. Review of systems otherwise unobtainable or as in the body of history above. PHYSICAL EXAMINATION: VITAL SIGNS: At presentation in the Emergency Room revealed, vital signs shows he was febrile, temperature 100.5 degrees Fahrenheit; pulse of 110; respiratory rate 20; blood pressure 167/92; O2 sats were 97%; inspired oxygen concentration at that time was not recorded. GENERAL: He is a middle-aged, morbidly obese male. Normocephalic, atraumatic, on the mechanical ventilator without significant patient ventilator dyssynchrony. Attempts to open his eyes to name calling. HEAD, EYES, EARS, NOSE, AND THROAT: Anicteric. No conjunctival erythema. Oropharynx was moist. He has ET tube around 25-26 cm taped at the lips. NECK: No gross jugular venous distention. He does have a large neck circumference. Grossly, there were no palpable lymph nodes in the supraclavicular or submandibular lymph node chains. LUNGS: Auscultation of both lung brantley significant for diminished bilateral breath sounds. Occasional rhonchi, no active wheezing. HEART: Sounds 1 and 2 are heard at the time of my evaluation, regular rate and rhythm without overt rubs or murmurs. ABDOMEN: Soft, full, protuberant. Bowel sounds are positive, nontender. No palpable hepatosplenomegaly. EXTREMITIES: Without overt digital clubbing or cyanosis. He has about 2+ bipedal pitting edema. Pedal pulses are 2+ bilaterally. NEUROLOGIC: Pupils were equal, round, about 3 mm, sluggishly reactive to light. Extraocular muscle movements cannot be assessed. He did have spontaneous movements to his extremities. He moves his extremities a little bit to touch, opened his eyes to name calling, but was not following commands. SKIN: Normal turgor. He had stasis dermatitis type rash to the lower extremities. Of note, the left big toe, I believe, the nail was missing, otherwise, no overt cellulitis noted. Please see the wound care nurses' notes for full description of his skin. PSYCHIATRIC: Mood and affect could not be evaluated, he was sedated. LABORATORY DATA: From my review are as follows: White count at presentation 9300, hemoglobin 13.1, hematocrit 43.0, platelet count 177. No manual differential. INR was 1.36. Arterial blood gas showed a pH of 7.22, pCO2 of 72, pO2 of 87 that was on 100% at that time and the above-mentioned vent settings. Serum sodium 138, potassium 5.2, chloride 101, bicarbonate 23, BUN 40, creatinine of 3.2. Creatinine was 0.8 in 09/2017. Glucose 133. AST 1094, ALT 1089. Ammonia level was elevated at 75. Troponin elevated at 0.038. BNP elevated at 29,050. LDL cholesterol within normal limits. Aspirin, Tylenol, alcohol levels within normal limits. Two sets of blood cultures, no growth to date. Chest x-ray has been reviewed. ____ chest x-ray ____ elevation of the right hemidiaphragm. I do not see a gross pneumothorax. I cannot rule out the right lower lobe infiltrate, really low lung volumes. X-ray was done of the foot. Mild soft tissue swelling involving the dorsum of the foot distally. This was of the left great toe. Vascular ultrasounds were done bilateral. No evidence of DVTs. CT of the head was done, no acute process. CT of the neck was done. No C-spine fracture. ASSESSMENT: 1. Acute possibly on chronic hypoxemic and hypercapnic respiratory failure. 2. Pneumonia, community-acquired. 3. Acute toxic metabolic encephalopathy. 4. Person under investigation for COVID-19. 5. Morbid obesity. 6. Obstructive sleep apnea. 7. History of hypertension. 8. Acute kidney injury. 9. Hyperkalemia, mild. 10. Elevated serum transaminases. 11. Possible shock liver. 12. Hyperammonemia. 13. Non-ST elevation myocardial infarction. PLAN: I will increase the set rate to 24, blow off some of the CO2 as he is not too far from being compensated. I will also increase the PEEP to 10 and begin to wean the FiO2 down. The elevation of the right hemidiaphragm might be chronic, we will keep a close eye on that. I will get a stat D-dimer level and consideration will be given for a CT angio. Ventilator-associated pneumonia bundle has been introduced. Oxygen will be weaned to keep sats greater than or equal to about 90%. Aspiration precautions will be maintained. I will begin empiric community-acquired pneumonia therapy and empiric systemic steroids for possible COVID-19 infection. He is not a candidate for remdesivir. I will put him on zinc and vitamin C in the short term supplementation. In the absence of a DVT, he will be placed on VTE prophylaxis doses of heparin. He is appropriately on GI prophylaxis and about to go on DVT prophylaxis. Flu and pneumonia vaccination will be addressed per protocol. I have put in an order for vasopressors, to begin Levophed for MAP less than 65. At this time, his mean arterial pressure is about 66-67. Nephrology evaluation is appropriate. Neurology evaluation may be appropriate. I will defer to the attending physician. Enteral nutrition will be the feeding modality of choice. Glycemic control will be for a serum blood glucose of about 140-180 mg/dL while critically ill. Thank you very much for the consult, Dr. Seth. We will follow along and make further recommendations as picture progresses/becomes clearer. I should mention he will also be placed empirically in contact and airborne precautions. At this time, I spent about 35-40 minutes of critical care time without overlap and excluding any procedural time that may be necessary. TID: [id number] RECEIPT: [id number] KIEL/DENISHA/YELENA
[2021-05-24] MEDS: methylPREDNISolone Sod Succinate 125 MG/2 ML INJ IV SCH ×3 (06:57→21:38)
[2021-05-24] MEDS: HEPARIN 5,000 UNIT/1 ML VIAL SUB-Q SCH ×3 (06:57→21:39)
[2021-05-24 07:55] LABS: Anisocytosis 1+; Total Cells Counted 100
[2021-05-24 07:56] LABS: Platelet Estimate Consistent w Auto
--- NOTE | 2021-05-24 08:12 | Progress Note ---
Assessment and Plan Assessment and plan: 05/24/2021: Patient intubated and sedated. VQ scan ordered secondary to elevated D-dimer. Cardiology consulted secondary to elevated troponin and elevated BNP. Echocardiogram ordered and pending. #Acute hypoxic hypercapnic respiratory failure -intubated, vent settings: A/C FIO2 75%, TV 405, rate 24, PEEP 10 -V/Q scan ordered -COVID PCR pending -Pulmonology/Critical care following, appreciate assistance #Right upper lobe pneumonia -CT cervical spine showed R upper lobe consolidation -rocephin and azithromycin for now #Acute encephalopathy -UDS, salicylate, tylenol, and ETOH levels negative -CT head and cervical spine negative for acute process -TSH WNL -could be 2/2 to hypercapnea #FERMIN -SCr 3.2 -> 2.2 -baseline 0.8 in 2018 -likely 2/2 to vasomotor nephropathy -will continue to monitor -will consider Nephrology consult #Hypotension -hx of hypertension -currently requiring norepinephrine, will wean as tolerated -will continue to monitor #Elevated D-dimer -4444.85 d-dimer -duplex of lower extremities negative for DVT -V/Q scan ordered to r/o PE #Elevated BNP -NTproBNP 36270 -Cardiology following, recs appreciated -TTE ordered #Elevated liver enzymes -AST, ALT downtrending #hx of obstructive sleep apnea -complaint with CPAP at home -continue mechanical ventillation for now Disposition Plan: Continue medical management, CCU Total Time Spent with Patient (Minutes): 60 minutes History Interval history: No acute events. Patient intubated. Opens eyes spontaneously but does not respond to commands. Hospitalist Physical - Physical exam Narrative exam: GENERAL: Obese. Intubated on mechanical ventilation. HEENT: ETT in place CHEST/LUNGS: Coarse breath sounds bilaterally. HEART/CARDIOVASCULAR: RRR. No murmur, rubs or gallops appreciated. ABDOMEN: +BS. NT/ND. NEURO: Unable to assess. EXTREMITIES: Chronic venous stasis changes noted bilateral lower extremity. Left great toe bleeding, present on presentation. No edema appreciated PSYCH: Unable to assess. - Constitutional Vitals: Temp Pulse Resp BP Pulse Ox 99.1 F 58 L 25 H 111/56 98 05/23/21 12:15 05/24/21 07:00 05/24/21 07:00 05/24/21 07:00 05/24/21 07:00 General appearance: Present: severe distress, well-nourished HEART Score - HEART Score Troponin: Troponin T 0.038 ng/mL (0.00-0.029) H 05/23/21 15:09 Results - Labs CBC & Chem 7: 05/24/21 04:55 05/24/21 04:55 Labs: Laboratory Last Values WBC 8.7 K/mm3 (4.5-11.0) 05/24/21 04:55 RBC 4.57 M/mm3 (3.65-5.03) 05/24/21 04:55 Hgb 13.2 gm/dl (11.8-15.2) 05/24/21 04:55 Hct 43.2 % (35.5-45.6) 05/24/21 04:55 MCV 95 fl (84-94) H 05/24/21 04:55 MCH 29 pg (28-32) 05/24/21 04:55 MCHC 31 % (32-34) L 05/24/21 04:55 RDW 19.4 % (13.2-15.2) H 05/24/21 04:55 Plt Count 183 K/mm3 (140-440) 05/24/21 04:55 Lymph % (Auto) 5.9 % (13.4-35.0) L 05/23/21 15:09 [place] % (Auto) 6.1 % (0.0-7.3) 05/23/21 15:09 Eos % (Auto) 0.2 % (0.0-4.3) 05/23/21 15:09 Baso % (Auto) 0.3 % (0.0-1.8) 05/23/21 15:09 Lymph # (Auto) 0.6 K/mm3 (1.2-5.4) L 05/23/21 15:09 [place] # (Auto) 0.6 K/mm3 (0.0-0.8) 05/23/21 15:09 Eos # (Auto) 0.0 K/mm3 (0.0-0.4) 05/23/21 15:09 Baso # (Auto) 0.0 K/mm3 (0.0-0.1) 05/23/21 15:09 Add Manual Diff Complete 05/24/21 04:55 Total Counted 100 05/24/21 04:55 Seg Neutrophils % Zoning Assistant 05/24/21 04:55 Seg Neuts % (Manual) 97.0 % (40.0-70.0) H 05/24/21 04:55 Lymphocytes % (Manual) 3.0 % (13.4-35.0) L 05/24/21 04:55 Nucleated RBC % Not Reportable 05/24/21 04:55 Seg Neutrophils # 8.2 K/mm3 (1.8-7.7) H 05/23/21 15:09 Seg Neutrophils # Man 8.4 K/mm3 (1.8-7.7) H 05/24/21 04:55 Band Neutrophils # 0.0 K/mm3 05/24/21 04:55 Lymphocytes # (Manual) 0.3 K/mm3 (1.2-5.4) L 05/24/21 04:55 Abs React Lymphs (Man) 0.0 K/mm3 05/24/21 04:55 Monocytes # (Manual) 0.0 K/mm3 (0.0-0.8) 05/24/21 04:55 Eosinophils # (Manual) 0.0 K/mm3 (0.0-0.4) 05/24/21 04:55 Basophils # (Manual) 0.0 K/mm3 (0.0-0.1) 05/24/21 04:55 Metamyelocytes # 0.0 K/mm3 05/24/21 04:55 Myelocytes # 0.0 K/mm3 05/24/21 04:55 Promyelocytes # 0.0 K/mm3 05/24/21 04:55 Blast Cells # 0.0 K/mm3 05/24/21 04:55 WBC Morphology Not Reportable 05/24/21 04:55 Hypersegmented Neuts Not Reportable 05/24/21 04:55 Hyposegmented Neuts Not Reportable 05/24/21 04:55 Hypogranular Neuts Not Reportable 05/24/21 04:55 Smudge Cells Not Reportable 05/24/21 04:55 Toxic Granulation Not Reportable 05/24/21 04:55 Toxic Vacuolation Not Reportable 05/24/21 04:55 Dohle Bodies Not Reportable 05/24/21 04:55 Pelger-Huet Anomaly Not Reportable 05/24/21 04:55 Cynthia Rods Not Reportable 05/24/21 04:55 Platelet Estimate Consistent w auto 05/24/21 04:55 Clumped Platelets Not Reportable 05/24/21 04:55 Plt Clumps, EDTA Not Reportable 05/24/21 04:55 Large Platelets Not Reportable 05/24/21 04:55 Giant Platelets Not Reportable 05/24/21 04:55 Platelet Satelliting Not Reportable 05/24/21 04:55 Plt Morphology Comment Not Reportable 05/24/21 04:55 RBC Morphology Not Reportable 05/24/21 04:55 Dimorphic RBCs Not Reportable 05/24/21 04:55 Polychromasia Not Reportable 05/24/21 04:55 Hypochromasia Not Reportable 05/24/21 04:55 Poikilocytosis Not Reportable 05/24/21 04:55 Anisocytosis 1+ 05/24/21 04:55 Microcytosis Not Reportable 05/24/21 04:55 Macrocytosis Not Reportable 05/24/21 04:55 Spherocytes Not Reportable 05/24/21 04:55 Pappenheimer Bodies Not Reportable 05/24/21 04:55 Sickle Cells Not Reportable 05/24/21 04:55 Target Cells Not Reportable 05/24/21 04:55 Tear Drop Cells Not Reportable 05/24/21 04:55 Ovalocytes Not Reportable 05/24/21 04:55 Helmet Cells Not Reportable 05/24/21 04:55 [place] Bodies Not Reportable 05/24/21 04:55 [place] Rings Not Reportable 05/24/21 04:55 [place] Cells Not Reportable 05/24/21 04:55 Bite Cells Not Reportable 05/24/21 04:55 Crenated Cell Not Reportable 05/24/21 04:55 Elliptocytes Not Reportable 05/24/21 04:55 Acanthocytes (Spur) Not Reportable 05/24/21 04:55 Rouleaux Not Reportable 05/24/21 04:55 Hemoglobin C Crystals Not Reportable 05/24/21 04:55 Schistocytes Not Reportable 05/24/21 04:55 Malaria parasites Not Reportable 05/24/21 04:55 Uli Bodies Not Reportable 05/24/21 04:55 Hem Pathologist Commnt No 05/24/21 04:55 PT 18.1 Sec. (12.2-14.9) H 05/23/21 15:09 INR 1.36 (0.87-1.13) H 05/23/21 15:09 APTT 23.1 Sec. (24.2-36.6) L 05/23/21 15:09 D-Dimer 4444.85 ng/mlDDU (0-234) H 05/23/21 15:09 ABG pH 7.332 pH Units (7.350-7.450) L 05/23/21 20:48 ABG pCO2 48.6 mm Hg 05/23/21 20:48 ABG pO2 74.0 mm Hg (80.0-90.0) L 05/23/21 20:48 ABG HCO3 25.2 mmol/L (20.0-26.0) 05/23/21 20:48 ABG O2 Saturation 94.4 % (95.0-99.0) L 05/23/21 20:48 ABG O2 Content 16.2 (0.0-44) 05/23/21 20:48 ABG Base Excess -1.1 mmol/L (-2.0-3.0) 05/23/21 20:48 ABG Hemoglobin 12.5 gm/dl (14.0-18.0) L 05/23/21 20:48 ABG Carboxyhemoglobin 1.7 % (0.0-5.0) 05/23/21 20:48 ABG Methemoglobin 0.6 % (0.0-1.5) 05/23/21 20:48 Oxyhemoglobin 92.3 % (95.0-99.0) L 05/23/21 20:48 FiO2 80 % 05/23/21 20:48 Sodium 141 mmol/L (137-145) 05/24/21 04:55 Potassium 5.5 mmol/L (3.6-5.0) H 05/24/21 04:55 Chloride 104.7 mmol/L (98-107) 05/24/21 04:55 Carbon Dioxide 20 mmol/L (22-30) L 05/24/21 04:55 Anion Gap 22 mmol/L 05/24/21 04:55 BUN 39 mg/dL (9-20) H 05/24/21 04:55 Creatinine 2.2 mg/dL (0.8-1.3) H 05/24/21 04:55 Estimated GFR 40 ml/min 05/24/21 04:55 BUN/Creatinine Ratio 18 % 05/24/21 04:55 Glucose 155 mg/dL (75-100) H 05/24/21 04:55 Lactic Acid 1.50 mmol/L (0.7-2.0) 05/23/21 15:09 Calcium 8.3 mg/dL (8.4-10.2) L 05/24/21 04:55 Magnesium 2.30 mg/dL (1.7-2.3) 05/23/21 15:09 Total Bilirubin 0.80 mg/dL (0.1-1.2) 05/24/21 04:55 AST 571 units/L (5-40) H 05/24/21 04:55 ALT 951 units/L (7-56) H 05/24/21 04:55 Alkaline Phosphatase 84 units/L (35-129) 05/24/21 04:55 Ammonia 30.0 umol/L (25-60) 05/24/21 04:55 Total Creatine Kinase 48 units/L (55-170) L 05/23/21 15:09 Troponin T 0.038 ng/mL (0.00-0.029) H 05/23/21 15:09 C-Reactive Protein 10.00 mg/dL (0.00-1.30) H 05/23/21 19:10 NT-Pro-B Natriuret Pep 19764 pg/mL (0-450) H 05/23/21 15:09 Total Protein 7.0 g/dL (6.3-8.2) 05/24/21 04:55 Albumin 3.2 g/dL (3.9-5) L 05/24/21 04:55 Albumin/Globulin Ratio 0.8 % 05/24/21 04:55 Triglycerides 88 mg/dL (2-149) 05/23/21 15:09 Cholesterol 106 mg/dL (50-199) 05/23/21 15:09 LDL Cholesterol Direct 58 mg/dL (50-130) 05/23/21 15:09 HDL Cholesterol 29 mg/dL (40-59) L 05/23/21 15:09 Cholesterol/HDL Ratio 3.65 % 05/23/21 15:09 TSH 2.380 mlU/mL (0.270-4.200) 05/23/21 15:09 Urine Color [place] (Yellow) 05/23/21 Unknown Urine Turbidity Slightly-cloudy (Clear) 05/23/21 Unknown Urine pH 5.0 (5.0-7.0) 05/23/21 Unknown Ur Specific [place] 1.014 (1.003-1.030) 05/23/21 Unknown Urine Protein 30 mg/dl mg/dL (Negative) 05/23/21 Unknown Urine Glucose (UA) Neg mg/dL (Negative) 05/23/21 Unknown Urine Ketones Neg mg/dL (Negative) 05/23/21 Unknown Urine Blood Mod (Negative) 05/23/21 Unknown Urine Nitrite Neg (Negative) 05/23/21 Unknown Urine Bilirubin Neg (Negative) 05/23/21 Unknown Urine Urobilinogen 4.0 mg/dL (<2.0) 05/23/21 Unknown Ur Leukocyte Esterase Tr (Negative) 05/23/21 Unknown Urine WBC (Auto) 34.0 /HPF (0.0-6.0) H 05/23/21 Unknown Urine RBC (Auto) 20.0 /HPF (0.0-6.0) 05/23/21 Unknown U Epithel Cells (Auto) 2.0 /HPF (0-13.0) 05/23/21 Unknown Urine Bacteria (Auto) 1+ /HPF (Negative) 05/23/21 Unknown Urine Mucus Few /HPF 05/23/21 Unknown Salicylates < 0.3 mg/dL (2.8-20.0) L 05/23/21 15:09 Urine Opiates Screen Negative 05/23/21 Unknown Urine Methadone Screen Negative 05/23/21 Unknown Acetaminophen 5.0 ug/mL (10.0-30.0) L 05/23/21 15:09 Ur Barbiturates Screen Negative 05/23/21 Unknown Ur Phencyclidine Scrn Negative 05/23/21 Unknown Ur Amphetamines Screen Negative 05/23/21 Unknown U Benzodiazepines Scrn Negative 05/23/21 Unknown Urine Cocaine Screen Negative 05/23/21 Unknown U Marijuana (THC) Screen Negative 05/23/21 Unknown Drugs of Abuse Note Disclamer 05/23/21 Unknown Plasma/Serum Alcohol < 0.01 % (0-0.07) 05/23/21 15:09 Blood Type O POSITIVE 05/23/21 15:01 Antibody Screen Negative 05/23/21 15:01 Microbiology: Microbiology 05/23/21 15:09 Peripheral/Venous Blood Culture - Preliminary Culture in Progress 05/23/21 15:09 Peripheral/Venous Blood Culture - Preliminary Culture in Progress Active Medications - Current Medications Current Medications: Generic Name Dose Route Start Last Admin Trade Name Freq PRN Reason Stop Dose Admin Acetaminophen 650 mg 05/23/21 20:42 Acetaminophen 325 Mg Tab PO Q4H PRN Pain MILD(1-3)/Fever >100.5/CASTORENA Albuterol 2.5 mg 05/23/21 21:11 Albuterol 2.5 Mg/3 Ml Nebu IH Q4HRT PRN Shortness Of Breath Albuterol/Ipratropium 1 ampul 05/24/21 08:00 Ipratropium/Albuterol Sulfate 3 Ml Ampul.Neb IH QIDRT ROSEMARIE Ascorbic Acid 500 mg 05/23/21 22:00 05/24/21 00:22 Ascorbic Acid 500 Mg Tab PO 500 mg BID ROSEMARIE Administration Famotidine 20 mg 05/23/21 22:00 05/23/21 23:19 Famotidine 20 Mg/2 Ml Inj IV 20 mg BID ROSEMARIE Administration Fentanyl 50 mcg 05/23/21 12:34 05/23/21 18:50 Fentanyl 100 Mcg/2 Ml Inj IV 50 mcg Q10MIN PRN Administration ANALGESIA Heparin Sodium (Porcine) 5,000 unit 05/23/21 20:00 05/24/21 06:57 Heparin 5,000 Unit/1 Ml Vial SUB-Q 5,000 unit Q8HR ROSEMARIE Administration Hydromorphone HCl 0.5 mg 05/23/21 20:43 Hydromorphone 1 Mg/1 Ml Inj IV Q3H PRN Pain , Severe (7-10) Hydrophilic Ointment 1 applic 05/23/21 12:34 Lip Therapy Vaseline TP Q2HR PRN Dry Lips Fentanyl Citrate 2,000 mcg in 100 mls @ 8.528 mls/hr 05/23/21 13:00 05/24/21 06:53 Fentanyl Drip Premix IV 4 mcg/kg/hr TITR ROSEMARIE 34.11 mls/hr Administration Protocol 1 MCG/KG/HR Azithromycin 500 mg in 250 mls @ 250 mls/hr 05/24/21 08:00 Zithromax/Ns IV 05/27/21 07:59 Q24H ROSEMARIE Norepinephrine 4 mg in 250 mls @ 7.5 mls/hr 05/23/21 20:00 05/24/21 04:23 Levophed Drip 4 Mg/Ns 250 Ml IV 8 mcg/min TITR ROSEMARIE 30 mls/hr Administration Protocol 2 MCG/MIN Sodium Chloride 1,000 mls @ 75 mls/hr 05/23/21 21:00 05/23/21 21:46 Nacl 0.45% 1000 Ml IV 05/24/21 10:00 75 mls/hr DIRECT ROSEMARIE Administration Cefepime HCl 2 gm in 100 mls @ 200 mls/hr 05/23/21 22:00 05/23/21 23:19 Cefepime/Ns 2 Gm/100 Ml IV 200 mls/hr Q12H ROSEMARIE Administration Protocol Methylprednisolone Sodium Succinate 125 mg 05/23/21 22:00 05/24/21 06:57 Methylprednisolone Sod Succinate 125 Mg/2 Ml Inj IV 125 mg Q8HR ROSEMARIE Administration Morphine Sulfate 2 mg 05/23/21 20:43 Morphine 2 Mg/1 Ml Inj IV Q4H PRN Pain, Moderate (4-6) Multi-Ingred Cream/Lotion/Oil/Oint 1 applic 05/23/21 12:34 Mineral Oil/Petrolatum, White Ophth Oint 3.5 Gm OU Q4HR PRN Dry Eye(s) Ondansetron HCl 4 mg 05/23/21 20:42 Ondansetron 4 Mg/2 Ml Inj IV Q8H PRN Nausea And Vomiting Senna/Docusate Sodium 1 tab 05/23/21 22:00 05/24/21 00:22 Sennosides/Docusate Sodium 8.6/50 Mg Tab FEEDTUBE 1 tab BID ROSEMARIE Administration Sodium Chloride 10 ml 05/23/21 22:00 05/23/21 23:29 Sodium Chloride 0.9% 10 Ml Flush Syringe IV 10 ml BID ROSEMARIE Administration Sodium Chloride 10 ml 05/23/21 20:42 Sodium Chloride 0.9% 10 Ml Flush Syringe IV PRN PRN LINE FLUSH Zinc Sulfate 220 mg 05/23/21 22:00 05/24/21 00:22 Zinc Sulfate 220 Mg Cap PO 220 mg BID ROSEMARIE Administration
[2021-05-24] MEDS: AZITHROMYCIN/NS 500 MG/250 ML 500 MG/250 ML BAG IV SCH (08:30)
[2021-05-24] MEDS: IPRATROPIUM/ALBUTEROL SULFATE 3 ML AMPUL.NEB IH SCH ×3 (08:59→16:47)
--- NOTE | 2021-05-24 09:09 | XRay Report ---
CHEST 1 VIEW 05/24/2021 7:58 AM INDICATION / CLINICAL INFORMATION: Follow-up respiratory failure. COMPARISON: Yesterday. FINDINGS: SUPPORT DEVICES: The tip of the endotracheal tube is approximately 2 cm above the jade. The positio n of the nasogastric tube has not changed. HEART / MEDIASTINUM: Enlargement of the cardiopericardial silhouette is stable. LUNGS / PLEURA: There are low lung volumes. Diffuse pleuroparenchymal disease bilaterally has not daniel nged significantly. The right hemidiaphragm is elevated and obscured No pneumothorax. ADDITIONAL FINDINGS: No significant additional findings. IMPRESSION: Diffuse bilateral pleuroparenchymal disease is similar to yesterday. Signer Name: Jp Cerna MD Signed: 05/24/2021 9:05 AM Workstation Name: [id number]
[2021-05-24 09:42] LABS: ABG Base Excess -3.7 mmol/L (-2.0-3.0); ABG HCO3 21.6 mmol/L (20.0-26.0); ABG Methemoglobin 0.5 % (0.0-1.5); ABG Oxygen Saturation 96.9 % (95.0-99.0); ABG PH 7.35 pH Units (7.350-7.450); ABG PO2 90.6 mm Hg (80.0-90.0)
[2021-05-24] MEDS ORDERED: SIMPLE SYRUP 15 ML FEEDTUBE PRN ×2 (10:14)
[2021-05-24] MEDS ORDERED: SODIUM BICARBONATE 325 MG TAB FEEDTUBE PRN (10:14)
[2021-05-24] MEDS ORDERED: LIPASE 10,500/PROTEASE 25,000/AMYLASE 43,750 (UNITS) DR CAP FEEDTUBE PRN (10:14)
[2021-05-24] MEDS: SODIUM CHLORIDE 0.45% 1000 ML 1,000 ML IV SCH (10:25)
[2021-05-24] MEDS: CEFEPIME/NS 2 GM/100 ML 2 GM/100 ML BAG IV SCH ×2 (10:30→21:39)
[2021-05-24] MEDS: FAMOTIDINE 20 MG/2 ML INJ IV SCH ×2 (10:30→21:38)
[2021-05-24] MEDS ORDERED: cefTRIAXone/NS 1 GM/50 ML 1 GM/50 ML BAG IV SCH (14:00)
--- NOTE | 2021-05-24 14:36 | Consultation ---
History of Present Illness Consult date: 05/24/21 Consult reason: other (Elevated BNP) History of present illness: a 41 years old male with history of HTN and REVA presented with respi ratory failure and acute mental status change. His CXR indicated Rt lower lung pneumonia;Cardiology is consulted for elevated BNP (81879) and troponin (0.038); High D-dime, FERMIN,hyperkalemia and transaminitis were noted. Patient is intubated and cannot provide history; All history is obtained from chartes. Patient is on pressors. Past History Past Medical History: hypertension, other (REVA) Medications and Allergies Allergies Allergy/AdvReac Type Severity Reaction Status Date / Time No Known Allergies Allergy Unverified 11/12/14 11:12 Home Medications Medication Instructions Recorded Confirmed Last Taken Type Amoxicillin [Amoxicillin TAB] 875 mg PO BID #20 tablet 11/12/14 Unknown Rx Active Meds: Active Medications Acetaminophen (Acetaminophen 325 Mg Tab) 650 mg PO Q4H PRN PRN Reason: Pain MILD(1-3)/Fever >100.5/CAST[place]NA Albuterol (Albuterol 2.5 Mg/3 Ml Nebu) 2.5 mg IH Q4HRT PRN PRN Reason: Shortness Of Breath Albuterol/Ipratropium (Ipratropium/Albuterol Sulfate 3 Ml Ampul.Neb) 1 ampul IH QIDRT [facility] Last Admin: 05/24/21 13:17 Dose: 1 ampul Documented by: Lipase/Protease/Amylase (Lipase 10,500/Protease 25,000/Amylase 43,750 (Units) Dr Higgins) 1 each FEEDTUBE PRN PRN PRN Reason: For Clogged Feeding Tube Ascorbic Acid (Ascorbic Acid 500 Mg Tab) 500 mg PO BID [facility] Last Admin: 05/24/21 10:30 Dose: 500 mg Documented by: Famotidine (Famotidine 20 Mg/2 Ml Inj) 20 mg IV BID [facility] Last Admin: 05/24/21 10:30 Dose: 20 mg Documented by: Fentanyl (Fentanyl 100 Mcg/2 Ml Inj) 50 mcg IV Q10MIN PRN PRN Reason: ANALGESIA Last Admin: 05/23/21 18:50 Dose: 50 mcg Documented by: Heparin Sodium (Porcine) (Heparin 5,000 Unit/1 Ml Vial) 5,000 unit SUB-Q Q8HR [facility] Last Admin: 05/24/21 06:57 Dose: 5,000 unit Documented by: Hydromorphone HCl (Hydromorphone 1 Mg/1 Ml Inj) 0.5 mg IV Q3H PRN PRN Reason: Pain , Severe (7-10) Hydrophilic Ointment (Lip Therapy Vaseline) 1 applic TP Q2HR PRN PRN Reason: Dry Lips Fentanyl Citrate (Fentanyl Drip Premix) 2,000 mcg in 100 mls @ 8.528 mls/hr IV TITR [facility]; Protocol Last Admin: 05/24/21 10:31 Dose: 4 mcg/kg/hr, 34.11 mls/hr Documented by: Azithromycin (Zithromax/Ns) 500 mg in 250 mls @ 250 mls/hr IV Q24H [facility] Stop: 05/27/21 07:59 Last Admin: 05/24/21 08:30 Dose: 250 mls/hr Documented by: Norepinephrine (Levophed Drip 4 Mg/Ns 250 Ml) 4 mg in 250 mls @ 7.5 mls/hr IV TITR [facility]; Protocol Last Titration: 05/24/21 10:33 Dose: 7 mcg/min, 26.25 mls/hr Documented by: Cefepime HCl (Cefepime/Ns 2 Gm/100 Ml) 2 gm in 100 mls @ 200 mls/hr IV Q12H [facility]; Protocol Last Admin: 05/24/21 10:30 Dose: 200 mls/hr Documented by: Methylprednisolone Sodium Succinate (Methylprednisolone Sod Succinate 125 Mg/2 Ml Inj) 125 mg IV Q8HR [facility] Last Admin: 05/24/21 06:57 Dose: 125 mg Documented by: Morphine Sulfate (Morphine 2 Mg/1 Ml Inj) 2 mg IV Q4H PRN PRN Reason: Pain, Moderate (4-6) Multi-Ingred Cream/Lotion/Oil/Oint (Mineral Oil/Petrolatum, White Ophth Oint 3.5 Gm) 1 applic OU Q4HR PRN PRN Reason: Dry Eye(s) Ondansetron HCl (Ondansetron 4 Mg/2 Ml Inj) 4 mg IV Q8H PRN PRN Reason: Nausea And Vomiting Senna/Docusate Sodium (Sennosides/Docusate Sodium 8.6/50 Mg Tab) 1 tab FEEDTUBE BID [facility] Last Admin: 10/31/21 10:30 Dose: 1 tab Documented by: Simple Syrup (Simple Syrup 15 Ml) 15 ml FEEDTUBE PRN PRN PRN Reason: Hypoglycemia Simple Syrup (Simple Syrup 15 Ml) 30 ml FEEDTUBE PRN PRN PRN Reason: Hypoglycemia Sodium Bicarbonate (Sodium Bicarbonate 325 Mg Tab) 325 mg FEEDTUBE PRN PRN PRN Reason: For Clogged Feeding Tube Sodium Chloride (Sodium Chloride 0.9% 10 Ml Flush Syringe) 10 ml IV BID [facility] Last Admin: 05/24/21 10:51 Dose: Not Given Documented by: Sodium Chloride (Sodium Chloride 0.9% 10 Ml Flush Syringe) 10 ml IV PRN PRN PRN Reason: LINE FLUSH Zinc Sulfate (Zinc Sulfate 220 Mg Cap) 220 mg PO BID [facility] Last Admin: 05/24/21 10:30 Dose: 220 mg Documented by: Review of Systems ROS unobtainable: due to endotracheal tube, due to mental status Physical Examination Vital Signs Temp Pulse Resp BP Pulse Ox 99.1 F 91 H 27 H 121/76 84 05/23/21 12:15 05/23/21 12:15 05/23/21 12:15 05/23/21 12:15 05/23/21 12:15 General appearance: other (Intubated) Neck: Positive: JVD/HJR (Could not assess JVD) Cardiac: Positive: Regular Rate, Regular Rhythm Lungs: Positive: Ventilated Respirations Extremities: Present: +1 Edema Results 05/24/21 04:55 05/24/21 04:55 Cardiac Enzymes 05/23/21 05/24/21 Range/Units 15:09 04:55 AST 1094 H 571 H (5-40) units/L Coagulation 05/23/21 Range/Units 15:09 PT 18.1 H (12.2-14.9) Sec. INR 1.36 H (0.87-1.13) APTT 23.1 L (24.2-36.6) Sec. Lipids 05/23/21 Range/Units 15:09 Triglycerides 88 (2-149) mg/dL Cholesterol 106 (50-199) mg/dL HDL Cholesterol 29 L (40-59) mg/dL Cholesterol/HDL Ratio 3.65 % CBC 05/23/21 05/24/21 Range/Units 15:09 04:55 WBC 9.3 8.7 (4.5-11.0) K/mm3 RBC 4.51 4.57 (3.65-5.03) M/mm3 Hgb 13.1 13.2 (11.8-15.2) gm/dl Hct 43.0 43.2 (35.5-45.6) % Plt Count 177 183 (140-440) K/mm3 Lymph # (Auto) 0.6 L (1.2-5.4) K/mm3 [place] # (Auto) 0.6 (0.0-0.8) K/mm3 Eos # (Auto) 0.0 (0.0-0.4) K/mm3 Baso # (Auto) 0.0 (0.0-0.1) K/mm3 Comprehensive Metabolic Panel 05/23/21 05/24/21 Range/Units 15:09 04:55 Sodium 138 141 (137-145) mmol/L Potassium 5.2 H 5.5 H (3.6-5.0) mmol/L Chloride 101.3 104.7 (98-107) mmol/L Carbon Dioxide 23 20 L (22-30) mmol/L BUN 40 H 39 H (9-20) mg/dL Creatinine 3.2 H 2.2 H (0.8-1.3) mg/dL Glucose 133 H 155 H (75-100) mg/dL Calcium 8.6 8.3 L (8.4-10.2) mg/dL AST 1094 H 571 H (5-40) units/L ALT 1089 H 951 H (7-56) units/L Alkaline Phosphatase 91 84 (35-129) units/L Total Protein 7.6 7.0 (6.3-8.2) g/dL Albumin 3.0 L 3.2 L (3.9-5) g/dL Assessment and Plan # Elevated BNP # Elevation of troponin - ECG showed sinus rhythm with non-specific ST-T change - recommend V/Q study given high D-dimer (>4000); elevated BNP and troponin may be secondary to RV strain - Slightly elevated troponin with non-specific ST-T change in setting of Sepsis and FERMIN, demanded type 2 VA more likely; Recommend to trend troponin till peaked; - pending ECHO for LVEF, RV function - Patient's transminitis and FERMIN improved a lots after IVF in the ER; Further recommendations will follow after V/Q study. - Defer to primary team for management of septic shock. Thanks for consult, we will continue to follow.
[2021-05-24] MEDS ORDERED: SODIUM CHLORIDE 0.9% 1000 ML 1,000 ML IV ONE (15:24)
[2021-05-24] MEDS ORDERED: ALBUMIN HUMAN 25% (25 GM/100 ML) INJ IV STA (15:33)
--- NOTE | 2021-05-24 19:07 | Progress Note ---
Assessment and Plan Acute possibly on chronic hypoxemic and hypercapnic respiratory failure Pneumonia, community-acquired Acute toxic metabolic encephalopathy Person under investigation for COVID-19 Morbid obesity Obstructive sleep apnea History of hypertension Acute kidney injury Hyperkalemia Elevated serum transaminases Possible shock liver Hyperammonemia Non-ST elevation myocardial infarction - volume resuscitation (1 liter IVNS bolus and 50 gm's IV Albumin bolus) - wean off Levophed aggressively thereafter - will place CVL if unable to wean off - sending urine lytes - azotemia improving - nephrology consultation per attending - continue care as below otherwise; - continue Daily SAT and SBT assessment as tolerated - continue to wean supplemental oxygen for target O2 sat's > 90% acutely - VAP bundle addressed - continue lung protective strategies - continue bronchodilators with pulmonary hygiene per RT - wean per pulmonary driven protocols otherwise - avoid nephrotoxins, renally dose all medications - continue accuchecks with glycemic control per SSI (While critically ill target blood glucose of 140-180 mg/dL; avoid hypoglycemia) - sedation prn for target RASS 0 to -1 - continue to avoid benzodiazepine's, reduce the possibility of delirium - AB's per ID rec's - prn analgesia per CPOT score - Maintenance of sleep-wake cycle, avoid delirium - continue enteral nutritional support at goal rate as tolerated - G.I. & VTE prophylaxis - PT/OT/ROM exercises - continue mobility protocols for pressure ulcer prophylaxis - Monitor hemodynamics closely - continue other care per attending / other consultants - discharge planning ongoing concurrently COVID SPECIFIC INTERVENTIONS - COVID-19 test result pending .... Re-evaluate in am & prn CONDITION: CRITICAL PROGNOSIS: GUARDED CODE STATUS: FULL CODE The high probability of a clinically significant, sudden or life-threatening deterioration of the [respiratory, cardiovascular, renal & neurologic] system(s) required my full and direct attention, intervention and personal management. The aggregate critical care time was [35] minutes without overlap. Time includes spent on; [x] Data Review and interpretation [x] Patient assessment and monitoring of vital signs [x] Documentation [x] Medication orders and management Subjective Date of service: 05/24/21 Principal diagnosis: Acute hypoxemic and hypercapnic resp failure; PUI COVID-19; Pneumonia; FERMIN Interval history: Patient is seen today for: Acute hypoxemic and hypercapnic respiratory failure; PUI NCOVID-19; Pneumonia; CAP; FERMIN; REVA Seen and examined at bedside; 24hour events reviewed; nursing and respiratory care staff consulted; no adverse overnight events reported to me; remaions on MVS; COVID-19 test result pending; remains on Levophed drip but down to 6 gunnar's/min; no emesis or overt aspiration Objective Vital Signs - 12hr 05/24/21 05/24/21 05/24/21 07:16 07:30 07:46 Pulse Rate 60 59 L 65 Pulse Rate [ Throughout] Respiratory 24 24 23 Rate Respiratory Rate [ Throughout] Blood Pressure 102/55 115/60 111/56 O2 Sat by Pulse 99 99 99 Oximetry 05/24/21 05/24/21 05/24/21 08:00 08:16 08:30 Pulse Rate 60 63 61 Pulse Rate [ Throughout] Respiratory 24 24 24 Rate Respiratory Rate [ Throughout] Blood Pressure 126/92 127/83 111/52 O2 Sat by Pulse 98 98 98 Oximetry 05/24/21 05/24/21 05/24/21 08:46 08:59 09:00 Pulse Rate 75 68 71 Pulse Rate [ 72 Throughout] Respiratory 24 24 Rate Respiratory 24 Rate [ Throughout] Blood Pressure 112/56 122/63 O2 Sat by Pulse 96 96 Oximetry 05/24/21 05/24/21 05/24/21 09:16 09:30 09:46 Pulse Rate 70 69 70 Pulse Rate [ Throughout] Respiratory 24 24 24 Rate Respiratory Rate [ Throughout] Blood Pressure 115/56 110/56 115/63 O2 Sat by Pulse 94 97 97 Oximetry 05/24/21 05/24/21 05/24/21 10:00 10:16 10:30 Pulse Rate 68 68 72 Pulse Rate [ Throughout] Respiratory 24 24 24 Rate Respiratory Rate [ Throughout] Blood Pressure 107/58 111/57 113/57 O2 Sat by Pulse 97 97 96 Oximetry 05/24/21 05/24/21 05/24/21 10:46 11:00 11:16 Pulse Rate 74 88 73 Pulse Rate [ Throughout] Respiratory 24 18 24 Rate Respiratory Rate [ Throughout] Blood Pressure 106/56 100/55 100/62 O2 Sat by Pulse 97 97 97 Oximetry 05/24/21 05/24/21 05/24/21 11:30 11:46 12:00 Pulse Rate 71 75 71 Pulse Rate [ Throughout] Respiratory 24 24 24 Rate Respiratory Rate [ Throughout] Blood Pressure 101/60 108/60 105/57 O2 Sat by Pulse 97 96 96 Oximetry 05/24/21 05/24/21 05/24/21 12:16 12:30 12:46 Pulse Rate 83 68 80 Pulse Rate [ Throughout] Respiratory 18 24 24 Rate Respiratory Rate [ Throughout] Blood Pressure 106/54 112/59 105/57 O2 Sat by Pulse 94 97 96 Oximetry 05/24/21 05/24/21 05/24/21 12:58 13:00 13:15 Pulse Rate 68 71 68 Pulse Rate [ 74 Throughout] Respiratory 24 24 Rate Respiratory 24 Rate [ Throughout] Blood Pressure 111/59 90/46 90/46 O2 Sat by Pulse 96 96 97 Oximetry 05/24/21 05/24/21 05/24/21 13:30 13:46 14:00 Pulse Rate 66 76 72 Pulse Rate [ Throughout] Respiratory 24 24 24 Rate Respiratory Rate [ Throughout] Blood Pressure 108/55 95/59 90/46 O2 Sat by Pulse 95 94 95 Oximetry 05/24/21 05/24/21 05/24/21 14:16 14:30 14:46 Pulse Rate 79 77 76 Pulse Rate [ Throughout] Respiratory 24 24 24 Rate Respiratory Rate [ Throughout] Blood Pressure 107/55 108/53 102/50 O2 Sat by Pulse 94 93 94 Oximetry 05/24/21 05/24/21 05/24/21 15:00 15:16 15:30 Pulse Rate 68 70 68 Pulse Rate [ Throughout] Respiratory 24 24 25 H Rate Respiratory Rate [ Throughout] Blood Pressure 107/55 107/48 101/47 O2 Sat by Pulse 94 94 94 Oximetry 05/24/21 05/24/21 05/24/21 15:46 16:00 16:16 Pulse Rate 67 66 73 Pulse Rate [ Throughout] Respiratory 24 24 24 Rate Respiratory Rate [ Throughout] Blood Pressure 103/50 106/51 102/49 O2 Sat by Pulse 94 94 93 Oximetry 05/24/21 05/24/21 05/24/21 16:30 16:44 16:46 Pulse Rate 67 69 69 Pulse Rate [ Throughout] Respiratory 24 24 Rate Respiratory Rate [ Throughout] Blood Pressure 95/49 91/42 91/42 O2 Sat by Pulse 95 95 95 Oximetry 05/24/21 05/24/21 05/24/21 16:48 17:00 17:16 Pulse Rate 70 68 Pulse Rate [ 80 Throughout] Respiratory 24 24 Rate Respiratory 24 Rate [ Throughout] Blood Pressure 102/42 93/40 O2 Sat by Pulse 95 93 Oximetry 05/24/21 05/24/21 05/24/21 17:30 17:46 18:00 Pulse Rate 68 77 79 Pulse Rate [ Throughout] Respiratory 24 24 24 Rate Respiratory Rate [ Throughout] Blood Pressure 92/42 95/43 85/49 O2 Sat by Pulse 94 94 94 Oximetry 05/24/21 05/24/21 18:16 18:30 Pulse Rate 90 80 Pulse Rate [ Throughout] Respiratory 20 25 H Rate Respiratory Rate [ Throughout] Blood Pressure 97/54 80/54 O2 Sat by Pulse 95 94 Oximetry Constitutional: appears uncomfortable, other (middle aged morbidly obese male with mildly increased respiratory effort at rest on MVS) Eyes: non-icteric ENT: oropharynx moist, other (ETT 24 cm FRANCIS) Neck: supple, no lymphadenopathy, no JVD Effort: mildly labored Ascultation: Bilateral: rhonchi Percussion: Bilateral: not dull Cardiovascular: regular rate and rhythm Gastrointestinal: normoactive bowel sounds, soft, non-tender, non-distended Integumentary: rash (stasis dermatitis) Extremities: no cyanosis, no edema, pulses normal, no ischemia or petechiae Neurologic: non-focal exam (grossly), pupils equal and round, unable to assess, other (sedated) Psychiatric: other (unable to assess re: AMS) CBC and BMP: 05/24/21 04:55 05/24/21 04:55 ABG, PT/INR, D-dimer: ABG ABG pH 7.350 pH Units (7.350-7.450) 05/24/21 09:15 ABG pCO2 40.0 mm Hg 05/24/21 09:15 ABG pO2 90.6 mm Hg (80.0-90.0) H 05/24/21 09:15 ABG O2 Saturation 96.9 % (95.0-99.0) 05/24/21 09:15 PT/INR, D-dimer PT 18.1 Sec. (12.2-14.9) H 05/23/21 15:09 INR 1.36 (0.87-1.13) H 05/23/21 15:09 D-Dimer 4444.85 ng/mlDDU (0-234) H 05/23/21 15:09 Abnormal lab findings: Abnormal Labs 05/23/21 05/23/21 05/23/21 15:00 15:09 15:09 MCV 95 H MCHC 30 L RDW 20.1 H Lymph % (Auto) 5.9 L Lymph # (Auto) 0.6 L Seg Neutrophils % 87.5 H Seg Neuts % (Manual) Lymphocytes % (Manual) Seg Neutrophils # 8.2 H Seg Neutrophils # Man Lymphocytes # (Manual) PT 18.1 H INR 1.36 H APTT 23.1 L D-Dimer ABG pH 7.215 L ABG pO2 ABG HCO3 28.4 H ABG O2 Saturation ABG Base Excess ABG Hemoglobin 13.5 L Oxyhemoglobin 92.6 L Potassium Carbon Dioxide BUN Creatinine Glucose Calcium AST ALT Ammonia Total Creatine Kinase Troponin T C-Reactive Protein NT-Pro-B Natriuret Pep Albumin HDL Cholesterol Urine WBC (Auto) Salicylates Acetaminophen 05/23/21 05/23/21 05/23/21 15:09 15:09 15:09 MCV MCHC RDW Lymph % (Auto) Lymph # (Auto) Seg Neutrophils % Seg Neuts % (Manual) Lymphocytes % (Manual) Seg Neutrophils # Seg Neutrophils # Man Lymphocytes # (Manual) PT INR APTT D-Dimer ABG pH ABG pO2 ABG HCO3 ABG O2 Saturation ABG Base Excess ABG Hemoglobin Oxyhemoglobin Potassium 5.2 H Carbon Dioxide BUN 40 H Creatinine 3.2 H Glucose 133 H Calcium AST 1094 H ALT 1089 H Ammonia 75.0 H Total Creatine Kinase Troponin T 0.038 H C-Reactive Protein NT-Pro-B Natriuret Pep Albumin 3.0 L HDL Cholesterol 29 L Urine WBC (Auto) Salicylates < 0.3 L Acetaminophen 05/23/21 05/23/21 05/23/21 15:09 15:09 15:09 MCV MCHC RDW Lymph % (Auto) Lymph # (Auto) Seg Neutrophils % Seg Neuts % (Manual) Lymphocytes % (Manual) Seg Neutrophils # Seg Neutrophils # Man Lymphocytes # (Manual) PT INR APTT D-Dimer 4444.85 H ABG pH ABG pO2 ABG HCO3 ABG O2 Saturation ABG Base Excess ABG Hemoglobin Oxyhemoglobin Potassium Carbon Dioxide BUN Creatinine Glucose Calcium AST ALT Ammonia Total Creatine Kinase 48 L Troponin T C-Reactive Protein NT-Pro-B Natriuret Pep 87611 H Albumin HDL Cholesterol Urine WBC (Auto) Salicylates Acetaminophen 5.0 L 05/23/21 05/23/21 05/23/21 19:10 20:48 Unknown MCV MCHC RDW Lymph % (Auto) Lymph # (Auto) Seg Neutrophils % Seg Neuts % (Manual) Lymphocytes % (Manual) Seg Neutrophils # Seg Neutrophils # Man Lymphocytes # (Manual) PT INR APTT D-Dimer ABG pH 7.332 L ABG pO2 74.0 L ABG HCO3 ABG O2 Saturation 94.4 L ABG Base Excess ABG Hemoglobin 12.5 L Oxyhemoglobin 92.3 L Potassium Carbon Dioxide BUN Creatinine Glucose Calcium AST ALT Ammonia Total Creatine Kinase Troponin T C-Reactive Protein 10.00 H NT-Pro-B Natriuret Pep Albumin HDL Cholesterol Urine WBC (Auto) 34.0 H Salicylates Acetaminophen 05/24/21 05/24/21 05/24/21 04:55 04:55 09:15 MCV 95 H MCHC 31 L RDW 19.4 H Lymph % (Auto) Lymph # (Auto) Seg Neutrophils % Seg Neuts % (Manual) 97.0 H Lymphocytes % (Manual) 3.0 L Seg Neutrophils # Seg Neutrophils # Man 8.4 H Lymphocytes # (Manual) 0.3 L PT INR APTT D-Dimer ABG pH ABG pO2 90.6 H ABG HCO3 ABG O2 Saturation ABG Base Excess -3.7 L ABG Hemoglobin 13.5 L Oxyhemoglobin Potassium 5.5 H Carbon Dioxide 20 L BUN 39 H Creatinine 2.2 H Glucose 155 H Calcium 8.3 L AST 571 H ALT 951 H Ammonia Total Creatine Kinase Troponin T C-Reactive Protein NT-Pro-B Natriuret Pep Albumin 3.2 L HDL Cholesterol Urine WBC (Auto) Salicylates Acetaminophen Chest x-ray: image reviewed (stable with basilar infiltrates and right radha- diaphragm elevation) Allied health notes reviewed: nursing
[2021-05-24] MEDS: NORepinephrine/NS 8 MG-250 ML 8 MG/250 ML INFUS..BTL IV SCH (21:39)
[2021-05-25] MEDS: IPRATROPIUM/ALBUTEROL SULFATE 3 ML AMPUL.NEB IH SCH ×5 (00:08→20:41)
[2021-05-25] MEDS: fentaNYL DRIP Premix 2,000 MCG/100 ML BAG IV SCH ×4 (05:19→22:07)
--- NOTE | 2021-05-25 06:17 | XRay Report ---
CHEST 1 VIEW INDICATION: follow up respiratory failure. COMPARISON: One day prior. FINDINGS: Support devices: Unchanged. Heart: Enlarged, unchanged. Lungs/Pleura: Bilateral pulmonary opacities have improved. No pneumothorax. IMPRESSION: 1. Interval improvement. Signer Name: Brennan Sanders MD Signed: 05/25/2021 6:12 AM Workstation Name: [id number]
[2021-05-25] MEDS: HEPARIN 5,000 UNIT/1 ML VIAL SUB-Q SCH ×2 (06:25→22:08)
[2021-05-25] MEDS: methylPREDNISolone Sod Succinate 125 MG/2 ML INJ IV SCH ×2 (06:25→22:07)
[2021-05-25] MEDS: AZITHROMYCIN/NS 500 MG/250 ML 500 MG/250 ML BAG IV SCH (08:19)
[2021-05-25] MEDS: NORepinephrine/NS 8 MG-250 ML 8 MG/250 ML INFUS..BTL IV SCH (08:26)
[2021-05-25] MEDS ORDERED: VANCOMYCIN 2,000 MG in SODIUM CHLORIDE 0.9% 500 ML 500 ML IV SCH (09:00)
[2021-05-25] MEDS: FAMOTIDINE 20 MG/2 ML INJ IV SCH ×2 (11:49→22:07)
[2021-05-25] MEDS: ZINC SULFATE 220 MG CAP PO SCH ×2 (11:49→22:07)
[2021-05-25] MEDS: CEFEPIME/NS 2 GM/100 ML 2 GM/100 ML BAG IV SCH (11:49)
[2021-05-25] MEDS: ASCORBIC ACID 500 MG TAB PO SCH ×2 (11:49→22:07)
[2021-05-25] MEDS: SENNOSIDES/DOCUSATE SODIUM 8.6/50 MG TAB FEEDTUBE SCH ×2 (11:50→22:08)
--- NOTE | 2021-05-25 13:50 | Progress Note ---
Assessment and Plan Assessment and plan: 05/24/2021: Patient intubated and sedated. VQ scan ordered secondary to elevated D-dimer. Cardiology consulted secondary to elevated troponin and elevated BNP. Echocardiogram ordered and pending. 05/25/2021: Patient still intubated. Responsive to commands. Hypotensive, norepinephrine increased to 15mcg. Unable to get V/Q scan due to body habitus. #Acute hypoxic hypercapnic respiratory failure -intubated, vent settings: A/C FIO2 75%, TV 405, rate 24, PEEP 10 -V/Q scan not completed due to size -COVID PCR pending -Pulmonology/Critical care following, appreciate assistance #Right upper lobe pneumonia -CT cervical spine showed R upper lobe consolidation -rocephin and azithromycin for now #Acute encephalopathy -UDS, salicylate, tylenol, and ETOH levels negative -CT head and cervical spine negative for acute process -TSH WNL -could be 2/2 to hypercapnea #FERMIN -morning labs pending -baseline 0.8 in 2018 -likely 2/2 to vasomotor nephropathy -will continue to monitor -will consider Nephrology consult #Hypotension -hx of hypertension -currently requiring norepinephrine, will wean as tolerated -will continue to monitor #Elevated D-dimer -4444.85 d-dimer -duplex of lower extremities negative for DVT -V/Q scan not completed due to size #Elevated BNP -NTproBNP 71546 -Cardiology following, recs appreciated -TTE ordered #Elevated liver enzymes -AST, ALT downtrending on 05/24 -todays labs pending #hx of obstructive sleep apnea -complaint with CPAP at home -continue mechanical ventillation for now Disposition Plan: ICU Total Time Spent with Patient (Minutes): 40 minutes History Interval history: No acute events. Patient intubated. Opens eyes spontaneously but does not respond to commands. Hospitalist Physical - Physical exam Narrative exam: GENERAL: Obese. Intubated on mechanical ventilation. HEENT: ETT in place CHEST/LUNGS: Coarse breath sounds bilaterally. HEART/CARDIOVASCULAR: RRR. No murmur, rubs or gallops appreciated. ABDOMEN: +BS. NT/ND. NEURO: Unable to assess. EXTREMITIES: Chronic venous stasis changes noted bilateral lower extremity. Left great toe bleeding, present on presentation. No edema appreciated PSYCH: Unable to assess. - Constitutional Vitals: Temp Pulse Resp BP Pulse Ox 99.1 F 109 H 28 H 138/83 89 05/23/21 12:15 05/25/21 13:31 05/25/21 13:31 05/25/21 13:31 05/25/21 13:31 General appearance: Present: other (Intubated) HEART Score - HEART Score Troponin: Troponin T 0.038 ng/mL (0.00-0.029) H 05/23/21 15:09 Results - Labs CBC & Chem 7: 05/24/21 04:55 05/24/21 04:55 Labs: Laboratory Last Values WBC 8.7 K/mm3 (4.5-11.0) 05/24/21 04:55 RBC 4.57 M/mm3 (3.65-5.03) 05/24/21 04:55 Hgb 13.2 gm/dl (11.8-15.2) 05/24/21 04:55 Hct 43.2 % (35.5-45.6) 05/24/21 04:55 MCV 95 fl (84-94) H 05/24/21 04:55 MCH 29 pg (28-32) 05/24/21 04:55 MCHC 31 % (32-34) L 05/24/21 04:55 RDW 19.4 % (13.2-15.2) H 05/24/21 04:55 Plt Count 183 K/mm3 (140-440) 05/24/21 04:55 Lymph % (Auto) 5.9 % (13.4-35.0) L 05/23/21 15:09 [place] % (Auto) 6.1 % (0.0-7.3) 05/23/21 15:09 Eos % (Auto) 0.2 % (0.0-4.3) 05/23/21 15:09 Baso % (Auto) 0.3 % (0.0-1.8) 05/23/21 15:09 Lymph # (Auto) 0.6 K/mm3 (1.2-5.4) L 05/23/21 15:09 [place] # (Auto) 0.6 K/mm3 (0.0-0.8) 05/23/21 15:09 Eos # (Auto) 0.0 K/mm3 (0.0-0.4) 05/23/21 15:09 Baso # (Auto) 0.0 K/mm3 (0.0-0.1) 05/23/21 15:09 Add Manual Diff Complete 05/24/21 04:55 Total Counted 100 05/24/21 04:55 Seg Neutrophils % [place] 05/24/21 04:55 Seg Neuts % (Manual) 97.0 % (40.0-70.0) H 05/24/21 04:55 Lymphocytes % (Manual) 3.0 % (13.4-35.0) L 05/24/21 04:55 Nucleated RBC % Not Reportable 05/24/21 04:55 Seg Neutrophils # 8.2 K/mm3 (1.8-7.7) H 05/23/21 15:09 Seg Neutrophils # Man 8.4 K/mm3 (1.8-7.7) H 05/24/21 04:55 Band Neutrophils # 0.0 K/mm3 05/24/21 04:55 Lymphocytes # (Manual) 0.3 K/mm3 (1.2-5.4) L 05/24/21 04:55 Abs React Lymphs (Man) 0.0 K/mm3 05/24/21 04:55 Monocytes # (Manual) 0.0 K/mm3 (0.0-0.8) 05/24/21 04:55 Eosinophils # (Manual) 0.0 K/mm3 (0.0-0.4) 05/24/21 04:55 Basophils # (Manual) 0.0 K/mm3 (0.0-0.1) 05/24/21 04:55 Metamyelocytes # 0.0 K/mm3 05/24/21 04:55 Myelocytes # 0.0 K/mm3 05/24/21 04:55 Promyelocytes # 0.0 K/mm3 05/24/21 04:55 Blast Cells # 0.0 K/mm3 05/24/21 04:55 WBC Morphology Not Reportable 05/24/21 04:55 Hypersegmented Neuts Not Reportable 05/24/21 04:55 Hyposegmented Neuts Not Reportable 05/24/21 04:55 Hypogranular Neuts Not Reportable 05/24/21 04:55 Smudge Cells Not Reportable 05/24/21 04:55 Toxic Granulation Not Reportable 05/24/21 04:55 Toxic Vacuolation Not Reportable 05/24/21 04:55 Dohle Bodies Not Reportable 05/24/21 04:55 Pelger-Huet Anomaly Not Reportable 05/24/21 04:55 Cynthia Rods Not Reportable 05/24/21 04:55 Platelet Estimate Consistent w auto 05/24/21 04:55 Clumped Platelets Not Reportable 05/24/21 04:55 Plt Clumps, EDTA Not Reportable 05/24/21 04:55 Large Platelets Not Reportable 05/24/21 04:55 Giant Platelets Not Reportable 05/24/21 04:55 Platelet Satelliting Not Reportable 05/24/21 04:55 Plt Morphology Comment Not Reportable 05/24/21 04:55 RBC Morphology Not Reportable 05/24/21 04:55 Dimorphic RBCs Not Reportable 05/24/21 04:55 Polychromasia Not Reportable 05/24/21 04:55 Hypochromasia Not Reportable 05/24/21 04:55 Poikilocytosis Not Reportable 05/24/21 04:55 Anisocytosis 1+ 05/24/21 04:55 Microcytosis Not Reportable 05/24/21 04:55 Macrocytosis Not Reportable 05/24/21 04:55 Spherocytes Not Reportable 05/24/21 04:55 Pappenheimer Bodies Not Reportable 05/24/21 04:55 Sickle Cells Not Reportable 05/24/21 04:55 Target Cells Not Reportable 05/24/21 04:55 Tear Drop Cells Not Reportable 05/24/21 04:55 Ovalocytes Not Reportable 05/24/21 04:55 Helmet Cells Not Reportable 05/24/21 04:55 [place] Bodies Not Reportable 05/24/21 04:55 [place] Rings Not Reportable 05/24/21 04:55 [place] Cells Not Reportable 05/24/21 04:55 Bite Cells Not Reportable 05/24/21 04:55 Crenated Cell Not Reportable 05/24/21 04:55 Elliptocytes Not Reportable 05/24/21 04:55 Acanthocytes (Spur) Not Reportable 05/24/21 04:55 Rouleaux Not Reportable 05/24/21 04:55 Hemoglobin C Crystals Not Reportable 05/24/21 04:55 Schistocytes Not Reportable 05/24/21 04:55 Malaria parasites Not Reportable 05/24/21 04:55 Uli Bodies Not Reportable 05/24/21 04:55 Hem Pathologist Commnt No 05/24/21 04:55 PT 18.1 Sec. (12.2-14.9) H 05/23/21 15:09 INR 1.36 (0.87-1.13) H 05/23/21 15:09 APTT 23.1 Sec. (24.2-36.6) L 05/23/21 15:09 D-Dimer 4444.85 ng/mlDDU (0-234) H 05/23/21 15:09 ABG pH 7.222 (7.320-7.450) L 05/25/21 04:20 POC ABG pCO2 57.8 mmHg (32.0-48.0) H 05/25/21 04:20 ABG pCO2 40.0 mm Hg 05/24/21 09:15 POC ABG pO2 67.3 mmHg (83-108) L 05/25/21 04:20 ABG pO2 90.6 mm Hg (80.0-90.0) H 05/24/21 09:15 POC ABG HCO3 23.2 05/25/21 04:20 ABG HCO3 21.6 mmol/L (20.0-26.0) 05/24/21 09:15 ABG O2 Saturation 89.9 (0-100) 05/25/21 04:20 ABG O2 Content 89.9 05/25/21 04:20 POC ABG Base Excess -5.3 05/25/21 04:20 ABG Base Excess -3.7 mmol/L (-2.0-3.0) L 05/24/21 09:15 ABG Hemoglobin 14.3 (12.0-17.5) 05/25/21 04:20 ABG Oxyhemoglobin 89.1 (94-98) L 05/25/21 04:20 ABG Carboxyhemoglobin 1.5 % (0.0-5.0) 05/24/21 09:15 ABG Methemoglobin 0.2 (0.0-1.5) 05/25/21 04:20 ABG Sodium 140.6 mmol/L (136.0-145.0) 05/25/21 04:20 ABG Potassium 5.1 mmol/L (3.40-4.50) H 05/25/21 04:20 ABG Chloride 104.0 mmol/L (98-107) 05/25/21 04:20 ABG Glucose 182 mg/dL (65-95) H 05/25/21 04:20 Oxyhemoglobin 95.0 % (95.0-99.0) 05/24/21 09:15 Carboxyhemoglobin 0.7 (0.5-1.5) 05/25/21 04:20 FiO2 75 % 05/24/21 09:15 FiO2 % 75.0 05/25/21 04:20 Sodium 141 mmol/L (137-145) 05/24/21 04:55 Potassium 5.5 mmol/L (3.6-5.0) H 05/24/21 04:55 Chloride 104.7 mmol/L (98-107) 05/24/21 04:55 Carbon Dioxide 20 mmol/L (22-30) L 05/24/21 04:55 Anion Gap 22 mmol/L 05/24/21 04:55 BUN 39 mg/dL (9-20) H 05/24/21 04:55 Creatinine 2.2 mg/dL (0.8-1.3) H 05/24/21 04:55 Estimated GFR 40 ml/min 05/24/21 04:55 BUN/Creatinine Ratio 18 % 05/24/21 04:55 Glucose 155 mg/dL (75-100) H 05/24/21 04:55 Lactic Acid 1.50 mmol/L (0.7-2.0) 05/23/21 15:09 Calcium 8.3 mg/dL (8.4-10.2) L 05/24/21 04:55 Magnesium 2.30 mg/dL (1.7-2.3) 05/23/21 15:09 Total Bilirubin 0.80 mg/dL (0.1-1.2) 05/24/21 04:55 AST 571 units/L (5-40) H 05/24/21 04:55 ALT 951 units/L (7-56) H 05/24/21 04:55 Alkaline Phosphatase 84 units/L (35-129) 05/24/21 04:55 Ammonia 30.0 umol/L (25-60) 05/24/21 04:55 Total Creatine Kinase 48 units/L (55-170) L 05/23/21 15:09 Troponin T 0.038 ng/mL (0.00-0.029) H 05/23/21 15:09 C-Reactive Protein 10.00 mg/dL (0.00-1.30) H 05/23/21 19:10 NT-Pro-B Natriuret Pep 72720 pg/mL (0-450) H 05/23/21 15:09 Total Protein 7.0 g/dL (6.3-8.2) 05/24/21 04:55 Albumin 3.2 g/dL (3.9-5) L 05/24/21 04:55 Albumin/Globulin Ratio 0.8 % 05/24/21 04:55 Triglycerides 88 mg/dL (2-149) 05/23/21 15:09 Cholesterol 106 mg/dL (50-199) 05/23/21 15:09 LDL Cholesterol Direct 58 mg/dL (50-130) 05/23/21 15:09 HDL Cholesterol 29 mg/dL (40-59) L 05/23/21 15:09 Cholesterol/HDL Ratio 3.65 % 05/23/21 15:09 Procalcitonin 0.83 ng/mL (<0.15) 05/23/21 15:09 TSH 2.380 mlU/mL (0.270-4.200) 05/23/21 15:09 Arterial Blood Glucose 182 mg/dL (65-95) H 05/25/21 04:20 Urine Color [place] (Yellow) 05/23/21 Unknown Urine Turbidity Slightly-cloudy (Clear) 05/23/21 Unknown Urine pH 5.0 (5.0-7.0) 05/23/21 Unknown Ur Specific [place] 1.014 (1.003-1.030) 05/23/21 Unknown Urine Protein 30 mg/dl mg/dL (Negative) 05/23/21 Unknown Urine Glucose (UA) Neg mg/dL (Negative) 05/23/21 Unknown Urine Ketones Neg mg/dL (Negative) 05/23/21 Unknown Urine Blood Mod (Negative) 05/23/21 Unknown Urine Nitrite Neg (Negative) 05/23/21 Unknown Urine Bilirubin Neg (Negative) 05/23/21 Unknown Urine Urobilinogen 4.0 mg/dL (<2.0) 05/23/21 Unknown Ur Leukocyte Esterase Tr (Negative) 05/23/21 Unknown Urine WBC (Auto) 34.0 /HPF (0.0-6.0) H 05/23/21 Unknown Urine RBC (Auto) 20.0 /HPF (0.0-6.0) 05/23/21 Unknown U Epithel Cells (Auto) 2.0 /HPF (0-13.0) 05/23/21 Unknown Urine Bacteria (Auto) 1+ /HPF (Negative) 05/23/21 Unknown Urine Mucus Few /HPF 05/23/21 Unknown Salicylates < 0.3 mg/dL (2.8-20.0) L 05/23/21 15:09 Urine Opiates Screen Negative 05/23/21 Unknown Urine Methadone Screen Negative 05/23/21 Unknown Acetaminophen 5.0 ug/mL (10.0-30.0) L 05/23/21 15:09 Ur Barbiturates Screen Negative 05/23/21 Unknown Ur Phencyclidine Scrn Negative 05/23/21 Unknown Ur Amphetamines Screen Negative 05/23/21 Unknown U Benzodiazepines Scrn Negative 05/23/21 Unknown Urine Cocaine Screen Negative 05/23/21 Unknown U Marijuana (THC) Screen Negative 05/23/21 Unknown Drugs of Abuse Note Disclamer 05/23/21 Unknown Plasma/Serum Alcohol < 0.01 % (0-0.07) 05/23/21 15:09 Blood Type O POSITIVE 05/23/21 15:01 Antibody Screen Negative 05/23/21 15:01 Microbiology: Microbiology 05/23/21 15:00 Tracheal Aspirate Sputum Culture - Final 05/23/21 15:09 Peripheral/Venous Blood Culture - Preliminary 05/23/21 Unknown Urine,Catheterized - Indwelling Catheter Urine Culture - Final NO GROWTH AFTER 48 HOURS 05/23/21 15:09 Peripheral/Venous Blood Culture - Preliminary NO GROWTH AFTER 24 HOURS Garcia/IV: Voiding Method Indwelling Catheter Active Medications - Current Medications Current Medications: Generic Name Dose Route Start Last Admin Trade Name Freq PRN Reason Stop Dose Admin Acetaminophen 650 mg 05/23/21 20:42 Acetaminophen 325 Mg Tab PO Q4H PRN Pain MILD(1-3)/Fever >100.5/CASTORENA Albuterol 2.5 mg 05/23/21 21:11 Albuterol 2.5 Mg/3 Ml Nebu IH Q4HRT PRN Shortness Of Breath Albuterol/Ipratropium 1 ampul 05/24/21 08:00 05/25/21 12:40 Ipratropium/Albuterol Sulfate 3 Ml Ampul.Neb IH 1 ampul QIDRT ROSEMARIE Administration Lipase/Protease/Amylase 1 each 05/24/21 10:14 Lipase 10,500/Protease 25,000/Amylase 43,750 (Units) Dr Cap FEEDTUBE PRN PRN For Clogged Feeding Tube Ascorbic Acid 500 mg 05/23/21 22:00 05/25/21 11:49 Ascorbic Acid 500 Mg Tab PO 500 mg BID ROSEMARIE Administration Famotidine 20 mg 05/23/21 22:00 05/25/21 11:49 Famotidine 20 Mg/2 Ml Inj IV 20 mg BID ROSEMARIE Administration Fentanyl 50 mcg 05/23/21 12:34 05/23/21 18:50 Fentanyl 100 Mcg/2 Ml Inj IV 50 mcg Q10MIN PRN Administration ANALGESIA Heparin Sodium (Porcine) 5,000 unit 05/23/21 20:00 05/25/21 06:25 Heparin 5,000 Unit/1 Ml Vial SUB-Q 5,000 unit Q8HR ROSEMARIE Administration Hydromorphone HCl 0.5 mg 05/23/21 20:43 Hydromorphone 1 Mg/1 Ml Inj IV Q3H PRN Pain , Severe (7-10) Hydrophilic Ointment 1 applic 05/23/21 12:34 Lip Therapy Vaseline TP Q2HR PRN Dry Lips Fentanyl Citrate 2,000 mcg in 100 mls @ 8.528 mls/hr 05/23/21 13:00 05/25/21 11:04 Fentanyl Drip Premix IV 2 mcg/kg/hr TITR ROSEMARIE 17.055 mls/hr Administration Protocol 1 MCG/KG/HR Azithromycin 500 mg in 250 mls @ 250 mls/hr 05/24/21 08:00 05/25/21 08:19 Zithromax/Ns IV 05/27/21 07:59 250 mls/hr Q24H ROSEMARIE Administration Cefepime HCl 2 gm in 100 mls @ 200 mls/hr 05/23/21 22:00 05/25/21 11:49 Cefepime/Ns 2 Gm/100 Ml IV 200 mls/hr Q12H ROSEMARIE Administration Protocol NORepinephrine/NS 8 MG-250 ML 8 mg in 250 mls @ 3.75 mls/hr 05/24/21 20:00 05/25/21 12:08 Norepinephrine/Ns 8 Mg-250 Ml (Double Conc) IV 8 mcg/min TITRATE ROSEMARIE 15 mls/hr Titration Protocol 2 MCG/MIN Methylprednisolone Sodium Succinate 125 mg 05/23/21 22:00 05/25/21 06:25 Methylprednisolone Sod Succinate 125 Mg/2 Ml Inj IV 125 mg Q8HR ROSEMARIE Administration Morphine Sulfate 2 mg 05/23/21 20:43 Morphine 2 Mg/1 Ml Inj IV Q4H PRN Pain, Moderate (4-6) Multi-Ingred Cream/Lotion/Oil/Oint 1 applic 05/23/21 12:34 Mineral Oil/Petrolatum, White Ophth Oint 3.5 Gm OU Q4HR PRN Dry Eye(s) Ondansetron HCl 4 mg 05/23/21 20:42 Ondansetron 4 Mg/2 Ml Inj IV Q8H PRN Nausea And Vomiting Senna/Docusate Sodium 1 tab 05/23/21 22:00 05/25/21 11:50 Sennosides/Docusate Sodium 8.6/50 Mg Tab FEEDTUBE 1 tab BID ROSEMARIE Administration Simple Syrup 15 ml 05/24/21 10:14 Simple Syrup 15 Ml FEEDTUBE PRN PRN Hypoglycemia Simple Syrup 30 ml 05/24/21 10:14 Simple Syrup 15 Ml FEEDTUBE PRN PRN Hypoglycemia Sodium Bicarbonate 325 mg 05/24/21 10:14 Sodium Bicarbonate 325 Mg Tab FEEDTUBE PRN PRN For Clogged Feeding Tube Sodium Chloride 10 ml 05/23/21 22:00 05/25/21 11:50 Sodium Chloride 0.9% 10 Ml Flush Syringe IV 10 ml BID ROSEMARIE Administration Sodium Chloride 10 ml 05/23/21 20:42 Sodium Chloride 0.9% 10 Ml Flush Syringe IV PRN PRN LINE FLUSH Zinc Sulfate 220 mg 05/23/21 22:00 05/25/21 11:49 Zinc Sulfate 220 Mg Cap PO 220 mg BID ROSEMARIE Administration Nutrition/Malnutrition Assess - Dietary Evaluation Nutrition/Malnutrition Findings: Nutrition Notes Start: 05/24/21 09:53 Freq: Status: Active Protocol: Document 05/25/21 12:00 GB (Rec: 05/25/21 12:14 GB [id number]) Nutrition Notes Initial or Follow up Reassessment Current Diagnosis Acute Kidney Injury, Hypertension,Respiratory Failure Other Pertinent Diagnosis SIRS, encephalopathy, pneu, transaminitis Current Diet NPO, Tube Feeding Nepro @ 45m/ hr Labs/Tests K 5.5 - increasing trend x2days, Ca 8.3 BUN 39 Cr 2.2 AST 571, ALT 951 (both showing improvement) BG 155 Pertinent Medications VitC, Azithromycin, Fentanyl Citrate, Norepenephrin/NS 8 Mg 250, Vancomycin HCl/NaCl, Zn Sulfate Height 5 ft 8 in Weight 170.551 kg [place] Body Weight (kg) 70.00 BMI 57.2 Weight change and time frame Admit weight. No reports of change upon admission Weight Status Morbidly Obese Subjective/Other Information Pt continues Intubated/sedated TF started MD note Bilateral pumponary opacities have improved. No pneumothorax BM: none recorded at time of assessment Skin: BLE edema 1+ non-pitting Percent of energy/protein needs met: TF at goal to meet 75% or greater of minimal estimated energy needs Burn Absent Trauma Absent GI Symptoms Other Difficulty In Swallowing Food Allergy No Skin Integrity/Comment not WNL Current % PO Other Minimum of two criteria No #1 Nutrition Diagnosis Swallowing difficulty Comments: 05/25: intubation/sedation continues. TF started Etiology ARF As Evidenced by Signs and Symptoms pt on vent and unable to consume PO Diagnosis Progress(for reassessment Continues documentation) Is patient on ventilator? Yes Is Patient Ambulatory and/or Out of Bed No REE-([facility]-confined to bed) 3092.088 Kcal/Kg value to use for calculation 11 Approximate Energy Requirements Using 1876 kcal/Kg Calculation Used for Recommendations Kcal/kg Additional Notes Protein: 0.6g/kg or greater @ 170kg Fluid: 1 ml/kcal or per MD Nutrition Intervention Change Diet Order: Continue NPO, Tube feeding Nutrition Support: Nepro 1.8 at 45 ml/hr Flush 175 ml q4h or per MD Total free water: TF@goal + flush = 1835ml Kcal 1,944 Protein (gm) 87 Fluid (mL) 785 Add Supplement/Snack (indicate name/kcal n/a /protein ) Goal #1 Meet at least 75% or greater of EEN via TF 05/25: met, continues Goal #2 TF (Nepro) at goal rate (45ml/ hr) by f/u 05/25: TF started Follow-Up By: 05/28/21 Additional Comments F/u: TF tolerance, renal labs, vent status
--- NOTE | 2021-05-25 14:47 | Progress Note ---
Assessment and Plan Acute possibly on chronic hypoxemic and hypercapnic respiratory failure Pneumonia, community-acquired Acute toxic metabolic encephalopathy Person under investigation for COVID-19 Morbid obesity Obstructive sleep apnea History of hypertension Acute kidney injury Hyperkalemia Elevated serum transaminases Possible shock liver Hyperammonemia Non-ST elevation myocardial infarction - wean Levophed for target MAP > 65 mmHg - nephrology evaluation ongoing - continue care as below otherwise; - continue Daily SAT and SBT assessment as tolerated - continue to wean supplemental oxygen for target O2 sat's > 90% acutely - VAP bundle addressed - continue lung protective strategies - continue bronchodilators with pulmonary hygiene per RT - wean per pulmonary driven protocols otherwise - avoid nephrotoxins, renally dose all medications - continue accuchecks with glycemic control per SSI (While critically ill target blood glucose of 140-180 mg/dL; avoid hypoglycemia) - sedation prn for target RASS 0 to -1 - continue to avoid benzodiazepine's, reduce the possibility of delirium - AB's per ID rec's - prn analgesia per CPOT score - Maintenance of sleep-wake cycle, avoid delirium - continue enteral nutritional support at goal rate as tolerated - G.I. & VTE prophylaxis - PT/OT/ROM exercises - continue mobility protocols for pressure ulcer prophylaxis - Monitor hemodynamics closely - continue other care per attending / other consultants - discharge planning ongoing concurrently COVID SPECIFIC INTERVENTIONS - COVID-19 test result pending .... Re-evaluate in am & prn CONDITION: CRITICAL PROGNOSIS: GUARDED CODE STATUS: FULL CODE The high probability of a clinically significant, sudden or life-threatening deterioration of the [respiratory, cardiovascular, renal & neurologic] system(s) required my full and direct attention, intervention and personal management. The aggregate critical care time was [33] minutes without overlap. Time includes spe nt on; [x] Data Review and interpretation [x] Patient assessment and monitoring of vital signs [x] Documentation [x] Medication orders and management Subjective Date of service: 05/25/21 Principal diagnosis: Acute hypoxemic and hypercapnic resp failure; PUI COVID-19; Pneumonia; FERMIN Interval history: Patient is seen today for: Acute hypoxemic and hypercapnic respiratory failure; PUI NCOVID-19; Pneumonia; CAP; FERMIN; REVA Seen and examined at bedside; 24hour events reviewed; nursing and respiratory care staff consulted; no adverse overnight events reported to me; remaions on MVS; COVID-19 test result still pending; s/p PICC line placement; azotemia is improved but persistent; no emesdis or overt aspiration; follows simple commands Objective Vital Signs - 12hr 05/25/21 05/25/21 05/25/21 03:01 03:15 03:31 Pulse Rate 86 84 94 H Pulse Rate [ Anterior Bilateral Throughout] Pulse Rate [ Throughout] Respiratory 29 H 28 H 28 H Rate Respiratory Rate [Anterior Bilateral Throughout] Respiratory Rate [ Throughout] Blood Pressure 97/49 98/49 100/48 O2 Sat by Pulse 94 94 93 Oximetry 05/25/21 05/25/21 05/25/21 03:45 04:00 04:01 Pulse Rate 99 H 112 H 99 H Pulse Rate [ Anterior Bilateral Throughout] Pulse Rate [ Throughout] Respiratory 27 H 27 H Rate Respiratory Rate [Anterior Bilateral Throughout] Respiratory Rate [ Throughout] Blood Pressure 98/49 97/49 94/46 O2 Sat by Pulse 92 92 92 Oximetry 05/25/21 05/25/21 05/25/21 04:15 04:31 04:45 Pulse Rate 102 H 94 H 95 H Pulse Rate [ Anterior Bilateral Throughout] Pulse Rate [ Throughout] Respiratory 24 28 H 28 H Rate Respiratory Rate [Anterior Bilateral Throughout] Respiratory Rate [ Throughout] Blood Pressure 97/49 101/66 91/61 O2 Sat by Pulse 92 93 93 Oximetry 05/25/21 05/25/21 05/25/21 05:01 05:15 05:31 Pulse Rate 106 H 100 H 100 H Pulse Rate [ Anterior Bilateral Throughout] Pulse Rate [ Throughout] Respiratory 26 H 20 25 H Rate Respiratory Rate [Anterior Bilateral Throughout] Respiratory Rate [ Throughout] Blood Pressure 94/54 96/49 87/47 O2 Sat by Pulse 93 93 93 Oximetry 05/25/21 05/25/21 05/25/21 05:45 06:01 06:15 Pulse Rate 82 97 H 84 Pulse Rate [ Anterior Bilateral Throughout] Pulse Rate [ Throughout] Respiratory 28 H 29 H 28 H Rate Respiratory Rate [Anterior Bilateral Throughout] Respiratory Rate [ Throughout] Blood Pressure 87/47 98/56 O2 Sat by Pulse 94 93 94 Oximetry 05/25/21 05/25/21 05/25/21 06:31 06:45 07:01 Pulse Rate 84 76 82 Pulse Rate [ Anterior Bilateral Throughout] Pulse Rate [ Throughout] Respiratory 29 H 30 H 30 H Rate Respiratory Rate [Anterior Bilateral Throughout] Respiratory Rate [ Throughout] Blood Pressure 97/51 99/49 102/46 O2 Sat by Pulse 93 93 94 Oximetry 05/25/21 05/25/21 05/25/21 07:15 07:31 07:45 Pulse Rate 73 79 70 Pulse Rate [ Anterior Bilateral Throughout] Pulse Rate [ Throughout] Respiratory 29 H 30 H 30 H Rate Respiratory Rate [Anterior Bilateral Throughout] Respiratory Rate [ Throughout] Blood Pressure 94/48 86/41 94/48 O2 Sat by Pulse 95 94 95 Oximetry 05/25/21 05/25/21 05/25/21 08:01 08:15 08:31 Pulse Rate 99 H 97 H 89 Pulse Rate [ Anterior Bilateral Throughout] Pulse Rate [ Throughout] Respiratory 16 30 H 30 H Rate Respiratory Rate [Anterior Bilateral Throughout] Respiratory Rate [ Throughout] Blood Pressure 98/47 102/38 107/54 O2 Sat by Pulse 93 92 92 Oximetry 05/25/21 05/25/21 05/25/21 08:45 09:01 09:03 Pulse Rate 98 H 93 H 102 H Pulse Rate [ Anterior Bilateral Throughout] Pulse Rate [ Throughout] Respiratory 22 30 H Rate Respiratory Rate [Anterior Bilateral Throughout] Respiratory Rate [ Throughout] Blood Pressure 126/64 96/55 97/53 O2 Sat by Pulse 93 94 93 Oximetry 05/25/21 05/25/21 05/25/21 09:05 09:15 09:31 Pulse Rate 102 H 100 H Pulse Rate [ 92 H Anterior Bilateral Throughout] Pulse Rate [ 106 H Throughout] Respiratory 16 25 H Rate Respiratory 31 H Rate [Anterior Bilateral Throughout] Respiratory 30 H Rate [ Throughout] Blood Pressure 97/53 90/50 O2 Sat by Pulse 92 93 Oximetry 05/25/21 05/25/21 05/25/21 09:45 10:01 10:15 Pulse Rate 93 H 95 H 85 Pulse Rate [ Anterior Bilateral Throughout] Pulse Rate [ Throughout] Respiratory 30 H 29 H 29 H Rate Respiratory Rate [Anterior Bilateral Throughout] Respiratory Rate [ Throughout] Blood Pressure 86/48 88/54 97/47 O2 Sat by Pulse 93 94 93 Oximetry 05/25/21 05/25/21 05/25/21 10:31 10:45 11:00 Pulse Rate 87 85 93 H Pulse Rate [ Anterior Bilateral Throughout] Pulse Rate [ Throughout] Respiratory 30 H 30 H 28 H Rate Respiratory Rate [Anterior Bilateral Throughout] Respiratory Rate [ Throughout] Blood Pressure 94/51 102/43 102/43 O2 Sat by Pulse 92 92 91 Oximetry 05/25/21 05/25/21 05/25/21 11:15 11:31 11:45 Pulse Rate 105 H 92 H 86 Pulse Rate [ Anterior Bilateral Throughout] Pulse Rate [ Throughout] Respiratory 22 23 30 H Rate Respiratory Rate [Anterior Bilateral Throughout] Respiratory Rate [ Throughout] Blood Pressure 101/56 154/79 133/76 O2 Sat by Pulse 91 93 92 Oximetry 05/25/21 05/25/21 05/25/21 12:01 12:15 12:30 Pulse Rate 95 H 102 H 98 H Pulse Rate [ Anterior Bilateral Throughout] Pulse Rate [ Throughout] Respiratory 28 H 30 H Rate Respiratory Rate [Anterior Bilateral Throughout] Respiratory Rate [ Throughout] Blood Pressure 151/85 150/79 O2 Sat by Pulse 92 91 92 Oximetry 05/25/21 05/25/21 05/25/21 12:31 12:40 12:45 Pulse Rate 89 108 H Pulse Rate [ 98 H Anterior Bilateral Throughout] Pulse Rate [ 107 H Throughout] Respiratory 31 H 31 H Rate Respiratory 30 H Rate [Anterior Bilateral Throughout] Respiratory 30 H Rate [ Throughout] Blood Pressure 135/77 134/74 O2 Sat by Pulse 92 90 Oximetry 05/25/21 05/25/21 05/25/21 13:01 13:15 13:31 Pulse Rate 86 91 H 109 H Pulse Rate [ Anterior Bilateral Throughout] Pulse Rate [ Throughout] Respiratory 30 H 22 28 H Rate Respiratory Rate [Anterior Bilateral Throughout] Respiratory Rate [ Throughout] Blood Pressure 141/78 142/72 138/83 O2 Sat by Pulse 91 93 89 Oximetry Constitutional: appears uncomfortable, other (middle aged morbidly obese male with mildly increased respiratory effort at rest on MVS) Eyes: non-icteric ENT: oropharynx moist, other (ETT 24 cm FRANCIS) Neck: supple, no lymphadenopathy, no JVD Effort: mildly labored Ascultation: Bilateral: rhonchi Percussion: Bilateral: not dull Cardiovascular: regular rate and rhythm Gastrointestinal: normoactive bowel sounds, soft, non-tender, non-distended Integumentary: rash (stasis dermatitis) Extremities: no cyanosis, no edema, pulses normal, no ischemia or petechiae Neurologic: non-focal exam (grossly), pupils equal and round, unable to assess, other (sedated) Psychiatric: other (unable to assess re: AMS) CBC and BMP: 05/26/21 Unknown 05/26/21 Unknown ABG, PT/INR, D-dimer: ABG ABG pH 7.222 (7.320-7.450) L 05/25/21 04:20 POC ABG pCO2 57.8 mmHg (32.0-48.0) H 05/25/21 04:20 ABG pCO2 40.0 mm Hg 05/24/21 09:15 POC ABG pO2 67.3 mmHg (83-108) L 05/25/21 04:20 ABG pO2 90.6 mm Hg (80.0-90.0) H 05/24/21 09:15 POC ABG HCO3 23.2 05/25/21 04:20 ABG O2 Saturation 89.9 (0-100) 05/25/21 04:20 PT/INR, D-dimer PT 18.1 Sec. (12.2-14.9) H 05/23/21 15:09 INR 1.36 (0.87-1.13) H 05/23/21 15:09 D-Dimer 4444.85 ng/mlDDU (0-234) H 05/23/21 15:09 Abnormal lab findings: Abnormal Labs 05/23/21 05/23/21 05/23/21 15:00 15:09 15:09 MCV 95 H MCHC 30 L RDW 20.1 H Lymph % (Auto) 5.9 L Lymph # (Auto) 0.6 L Seg Neutrophils % 87.5 H Seg Neuts % (Manual) Lymphocytes % (Manual) Seg Neutrophils # 8.2 H Seg Neutrophils # Man Lymphocytes # (Manual) PT 18.1 H INR 1.36 H APTT 23.1 L D-Dimer ABG pH 7.215 L POC ABG pCO2 POC ABG pO2 ABG pO2 ABG HCO3 28.4 H ABG O2 Saturation ABG Base Excess ABG Hemoglobin 13.5 L ABG Oxyhemoglobin ABG Potassium ABG Glucose Oxyhemoglobin 92.6 L Potassium Carbon Dioxide BUN Creatinine Glucose Calcium AST ALT Ammonia Total Creatine Kinase Troponin T C-Reactive Protein NT-Pro-B Natriuret Pep Albumin HDL Cholesterol Arterial Blood Glucose Urine WBC (Auto) Salicylates Acetaminophen 05/23/21 05/23/21 05/23/21 15:09 15:09 15:09 MCV MCHC RDW Lymph % (Auto) Lymph # (Auto) Seg Neutrophils % Seg Neuts % (Manual) Lymphocytes % (Manual) Seg Neutrophils # Seg Neutrophils # Man Lymphocytes # (Manual) PT INR APTT D-Dimer ABG pH POC ABG pCO2 POC ABG pO2 ABG pO2 ABG HCO3 ABG O2 Saturation ABG Base Excess ABG Hemoglobin ABG Oxyhemoglobin ABG Potassium ABG Glucose Oxyhemoglobin Potassium 5.2 H Carbon Dioxide BUN 40 H Creatinine 3.2 H Glucose 133 H Calcium AST 1094 H ALT 1089 H Ammonia 75.0 H Total Creatine Kinase Troponin T 0.038 H C-Reactive Protein NT-Pro-B Natriuret Pep Albumin 3.0 L HDL Cholesterol 29 L Arterial Blood Glucose Urine WBC (Auto) Salicylates < 0.3 L Acetaminophen 05/23/21 05/23/21 05/23/21 15:09 15:09 15:09 MCV MCHC RDW Lymph % (Auto) Lymph # (Auto) Seg Neutrophils % Seg Neuts % (Manual) Lymphocytes % (Manual) Seg Neutrophils # Seg Neutrophils # Man Lymphocytes # (Manual) PT INR APTT D-Dimer 4444.85 H ABG pH POC ABG pCO2 POC ABG pO2 ABG pO2 ABG HCO3 ABG O2 Saturation ABG Base Excess ABG Hemoglobin ABG Oxyhemoglobin ABG Potassium ABG Glucose Oxyhemoglobin Potassium Carbon Dioxide BUN Creatinine Glucose Calcium AST ALT Ammonia Total Creatine Kinase 48 L Troponin T C-Reactive Protein NT-Pro-B Natriuret Pep 60082 H Albumin HDL Cholesterol Arterial Blood Glucose Urine WBC (Auto) Salicylates Acetaminophen 5.0 L 05/23/21 05/23/21 05/23/21 19:10 20:48 Unknown MCV MCHC RDW Lymph % (Auto) Lymph # (Auto) Seg Neutrophils % Seg Neuts % (Manual) Lymphocytes % (Manual) Seg Neutrophils # Seg Neutrophils # Man Lymphocytes # (Manual) PT INR APTT D-Dimer ABG pH 7.332 L POC ABG pCO2 POC ABG pO2 ABG pO2 74.0 L ABG HCO3 ABG O2 Saturation 94.4 L ABG Base Excess ABG Hemoglobin 12.5 L ABG Oxyhemoglobin ABG Potassium ABG Glucose Oxyhemoglobin 92.3 L Potassium Carbon Dioxide BUN Creatinine Glucose Calcium AST ALT Ammonia Total Creatine Kinase Troponin T C-Reactive Protein 10.00 H NT-Pro-B Natriuret Pep Albumin HDL Cholesterol Arterial Blood Glucose Urine WBC (Auto) 34.0 H Salicylates Acetaminophen 05/24/21 05/24/21 05/24/21 04:55 04:55 09:15 MCV 95 H MCHC 31 L RDW 19.4 H Lymph % (Auto) Lymph # (Auto) Seg Neutrophils % Seg Neuts % (Manual) 97.0 H Lymphocytes % (Manual) 3.0 L Seg Neutrophils # Seg Neutrophils # Man 8.4 H Lymphocytes # (Manual) 0.3 L PT INR APTT D-Dimer ABG pH POC ABG pCO2 POC ABG pO2 ABG pO2 90.6 H ABG HCO3 ABG O2 Saturation ABG Base Excess -3.7 L ABG Hemoglobin 13.5 L ABG Oxyhemoglobin ABG Potassium ABG Glucose Oxyhemoglobin Potassium 5.5 H Carbon Dioxide 20 L BUN 39 H Creatinine 2.2 H Glucose 155 H Calcium 8.3 L AST 571 H ALT 951 H Ammonia Total Creatine Kinase Troponin T C-Reactive Protein NT-Pro-B Natriuret Pep Albumin 3.2 L HDL Cholesterol Arterial Blood Glucose Urine WBC (Auto) Salicylates Acetaminophen 05/25/21 04:20 MCV MCHC RDW Lymph % (Auto) Lymph # (Auto) Seg Neutrophils % Seg Neuts % (Manual) Lymphocytes % (Manual) Seg Neutrophils # Seg Neutrophils # Man Lymphocytes # (Manual) PT INR APTT D-Dimer ABG pH 7.222 L POC ABG pCO2 57.8 H POC ABG pO2 67.3 L ABG pO2 ABG HCO3 ABG O2 Saturation ABG Base Excess ABG Hemoglobin ABG Oxyhemoglobin 89.1 L ABG Potassium 5.1 H ABG Glucose 182 H Oxyhemoglobin Potassium Carbon Dioxide BUN Creatinine Glucose Calcium AST ALT Ammonia Total Creatine Kinase Troponin T C-Reactive Protein NT-Pro-B Natriuret Pep Albumin HDL Cholesterol Arterial Blood Glucose 182 H Urine WBC (Auto) Salicylates Acetaminophen Chest x-ray: image reviewed (PICC line in good position) Allied health notes reviewed: nursing
--- NOTE | 2021-05-25 14:57 | XRay Report ---
CHEST 1 VIEW 05/25/2021 1:50 PM INDICATION / CLINICAL INFORMATION: VERIFICATION picc line. COMPARISON: 05/25/2021 FINDINGS: SUPPORT DEVICES: Left sided PICC line which terminates at the cavoatrial junction. Endotracheal tube terminates approximately 1.0 cm the jade, consider retraction. Unchanged positioning of enteric tub e. HEART / MEDIASTINUM: No significant abnormality. LUNGS / PLEURA: Redemonstrated bibasilar opacities. No pneumothorax. ADDITIONAL FINDINGS: No significant additional findings. IMPRESSION: 1. Left-sided PICC line terminating at the cavoatrial junction. 2. Endotracheal tube terminating approximately 1.0 cm from the jade, consider retraction. 3. Otherwise no significant change Signer Name: Xavier Greer DO Signed: 05/25/2021 2:53 PM Workstation Name: [id number]
[2021-05-25 15:03] LABS: Hematocrit 40.9 % (35.5-45.6); Hemoglobin 12.4 gm/dl (11.8-15.2); Mean Corpuscular HGB Conc 30 % (32-34); Mean Corpuscular Volume 96 fl (84-94); Platelet Count 161 K/mm3 (140-440); Red Blood Count 4.28 M/mm3 (3.65-5.03); Red Cell Distribution Width 20.7 % (13.2-15.2)
[2021-05-25 15:08] LABS: Albumin 3.6 g/dL (3.9-5); Calcium 8.7 mg/dL (8.4-10.2)
--- NOTE | 2021-05-25 17:42 | Progress Note ---
Assessment and Plan - Patient Problems (1) Acute respiratory failure Current Visit: Yes Status: Acute Plan to address problem: 41-year-old man who is morbidly obese, weighing over 375 pounds, admitted with acute respiratory failure. Cardiology consultation is requested for assessment of heart failure, chest x-ray shows a normal-sized cardiac silhouette and clear lungs. EKG is sinus with an incomplete right bundle branch block. In addition to his chronic pulmonary disease, possible underlying sleep apnea, we have recommended further assessment for pulmonary embolism as likely etiologies of his respiratory decompensation, but patient is reported not able to undergo pulmonary embolism evaluation due to his large size. An echocardiogram is pending for left ventricular function and right ventricular function size and assessment. Further cardiac evaluation will depend on clinical course. Subjective Date of service: 05/25/21 Principal diagnosis: Acute hypoxemic and hypercapnic resp failure; PUI COVID-19; Pneumonia; FERMIN Interval history: Patient is sedated, on the vent, and the emergency room awaiting CCU admission. On acid patroller there is a sinus rhythm at 99. Blood pressure is 131 systolic, patient is Levophed infusion therapy. No new cardiac issues have been reported. Objective Vital Signs Pulse Pulse Pulse Resp Resp Resp BP 05/25/21 16:35 91 H 87 30 H 30 H 05/25/21 16:31 89 26 H 123/64 05/25/21 16:30 91 H 123/64 05/25/21 16:15 88 30 H 115/65 05/25/21 16:01 108 H 29 H 112/74 05/25/21 15:45 97 H 30 H 118/70 05/25/21 15:31 100 H 30 H 118/71 05/25/21 15:15 108 H 30 H 134/79 05/25/21 15:01 126 H 22 141/76 05/25/21 14:45 136 H 16 143/78 05/25/21 14:31 116 H 22 123/87 05/25/21 14:15 97 H 30 H 130/76 05/25/21 14:01 104 H 16 141/73 05/25/21 14:00 96 H 05/25/21 13:45 100 H 27 H 136/88 05/25/21 13:31 109 H 28 H 138/83 05/25/21 13:15 91 H 22 142/72 05/25/21 13:01 86 30 H 141/78 05/25/21 12:45 108 H 31 H 134/74 05/25/21 12:40 98 H 107 H 30 H 30 H 05/25/21 12:31 89 31 H 135/77 05/25/21 12:30 98 H 05/25/21 12:15 102 H 30 H 150/79 05/25/21 12:01 95 H 28 H 151/85 05/25/21 11:45 86 30 H 133/76 05/25/21 11:31 92 H 23 154/79 05/25/21 11:15 105 H 22 101/56 05/25/21 11:00 93 H 28 H 102/43 05/25/21 10:45 85 30 H 102/43 05/25/21 10:31 87 30 H 94/51 05/25/21 10:15 85 29 H 97/47 05/25/21 10:01 95 H 29 H 88/54 05/25/21 10:00 16 05/25/21 09:45 93 H 30 H 86/48 05/25/21 09:31 100 H 25 H 90/50 05/25/21 09:15 102 H 16 97/53 05/25/21 09:05 92 H 106 H 31 H 30 H 05/25/21 09:03 102 H 97/53 05/25/21 09:01 93 H 30 H 96/55 05/25/21 08:45 98 H 22 126/64 05/25/21 08:31 89 30 H 107/54 05/25/21 08:15 97 H 30 H 102/38 05/25/21 08:01 99 H 16 98/47 05/25/21 07:45 70 30 H 94/48 05/25/21 07:31 79 30 H 86/41 05/25/21 07:15 73 29 H 94/48 05/25/21 07:01 82 30 H 102/46 05/25/21 06:45 76 30 H 99/49 05/25/21 06:31 84 29 H 97/51 05/25/21 06:15 84 28 H 98/56 05/25/21 06:01 97 H 29 H 87/47 05/25/21 05:45 82 28 H 05/25/21 05:31 100 H 25 H 87/47 05/25/21 05:15 100 H 20 96/49 05/25/21 05:01 106 H 26 H 94/54 05/25/21 04:45 95 H 28 H 91/61 05/25/21 04:31 94 H 28 H 101/66 05/25/21 04:15 102 H 24 97/49 05/25/21 04:01 99 H 27 H 94/46 05/25/21 04:00 112 H 97/49 05/25/21 03:45 99 H 27 H 98/49 05/25/21 03:31 94 H 28 H 100/48 05/25/21 03:15 84 28 H 98/49 05/25/21 03:01 86 29 H 97/49 05/25/21 02:45 96 H 27 H 77/53 05/25/21 02:31 129 H 18 05/25/21 02:16 92 H 31 H 95/47 05/25/21 02:00 82 27 H 95/47 05/25/21 01:46 78 26 H 102/51 05/25/21 01:30 86 29 H 105/49 05/25/21 01:16 94 H 25 H 98/59 05/25/21 01:00 99 H 27 H 102/50 05/25/21 00:46 92 H 28 H 108/56 05/25/21 00:30 91 H 22 98/59 05/25/21 00:16 85 29 H 99/52 05/25/21 00:00 106 H 22 95/44 05/24/21 23:46 74 25 H 99/52 05/24/21 23:30 102 H 29 H 91/44 05/24/21 23:16 79 26 H 93/49 05/24/21 23:00 92 H 25 H 91/50 05/24/21 22:46 91 H 25 H 97/49 05/24/21 22:30 88 30 H 94/46 05/24/21 22:16 94 H 19 97/49 05/24/21 22:00 88 30 H 99/50 05/24/21 21:46 92 H 30 H 98/55 05/24/21 21:30 89 29 H 96/48 05/24/21 21:16 87 29 H 94/52 05/24/21 21:00 89 30 H 92/52 05/24/21 20:59 116 H 104/51 05/24/21 20:46 113 H 29 H 103/50 05/24/21 20:30 89 30 H 98/52 05/24/21 20:16 91 H 29 H 103/50 05/24/21 20:00 100 H 26 H 109/58 05/24/21 19:46 87 28 H 92/53 05/24/21 19:30 82 28 H 102/53 05/24/21 19:16 84 28 H 91/40 05/24/21 19:00 91 H 30 H 91/41 05/24/21 18:46 90 29 H 86/47 05/24/21 18:34 79 24 86/47 05/24/21 18:30 80 25 H 80/54 05/24/21 18:16 90 20 97/54 05/24/21 18:00 79 24 85/49 05/24/21 17:46 77 24 95/43 Pulse Ox 05/25/21 16:35 05/25/21 16:31 97 05/25/21 16:30 96 05/25/21 16:15 96 05/25/21 16:01 94 05/25/21 15:45 94 05/25/21 15:31 94 05/25/21 15:15 94 05/25/21 15:01 94 05/25/21 14:45 87 05/25/21 14:31 89 05/25/21 14:15 91 05/25/21 14:01 90 05/25/21 14:00 05/25/21 13:45 90 05/25/21 13:31 89 05/25/21 13:15 93 05/25/21 13:01 91 05/25/21 12:45 90 05/25/21 12:40 05/25/21 12:31 92 05/25/21 12:30 92 05/25/21 12:15 91 05/25/21 12:01 92 05/25/21 11:45 92 05/25/21 11:31 93 05/25/21 11:15 91 05/25/21 11:00 91 05/25/21 10:45 92 05/25/21 10:31 92 05/25/21 10:15 93 05/25/21 10:01 94 05/25/21 10:00 94 05/25/21 09:45 93 05/25/21 09:31 93 05/25/21 09:15 92 05/25/21 09:05 05/25/21 09:03 93 05/25/21 09:01 94 05/25/21 08:45 93 05/25/21 08:31 92 05/25/21 08:15 92 05/25/21 08:01 93 05/25/21 07:45 95 05/25/21 07:31 94 05/25/21 07:15 95 05/25/21 07:01 94 05/25/21 06:45 93 05/25/21 06:31 93 05/25/21 06:15 94 05/25/21 06:01 93 05/25/21 05:45 94 05/25/21 05:31 93 05/25/21 05:15 93 05/25/21 05:01 93 05/25/21 04:45 93 05/25/21 04:31 93 05/25/21 04:15 92 05/25/21 04:01 92 05/25/21 04:00 92 05/25/21 03:45 92 05/25/21 03:31 93 05/25/21 03:15 94 05/25/21 03:01 94 05/25/21 02:45 94 05/25/21 02:31 92 05/25/21 02:16 92 05/25/21 02:00 95 05/25/21 01:46 95 05/25/21 01:30 95 05/25/21 01:16 93 05/25/21 01:00 93 05/25/21 00:46 92 05/25/21 00:30 93 05/25/21 00:16 94 05/25/21 00:00 93 05/24/21 23:46 95 05/24/21 23:30 95 05/24/21 23:16 94 05/24/21 23:00 94 05/24/21 22:46 93 05/24/21 22:30 94 05/24/21 22:16 95 05/24/21 22:00 94 05/24/21 21:46 94 05/24/21 21:30 95 05/24/21 21:16 95 05/24/21 21:00 95 05/24/21 20:59 94 05/24/21 20:46 95 05/24/21 20:30 95 05/24/21 20:16 95 05/24/21 20:00 95 05/24/21 19:46 95 05/24/21 19:30 95 05/24/21 19:16 96 05/24/21 19:00 94 05/24/21 18:46 95 05/24/21 18:34 94 05/24/21 18:30 94 05/24/21 18:16 95 05/24/21 18:00 94 05/24/21 17:46 94 - Physical Examination General: Other (Sedated, on the vent) HEENT: Positive: Normocephaly Neck: Positive: neck supple Cardiac: Positive: Reg Rate and Rhythm Lungs: Positive: Decreased Breath Sounds Neuro: Positive: Other (Sedated, on the vent) Abdomen: Positive: Soft Skin: Positive: Clear Extremities: Present: +1 Edema - Labs and Meds Cardiac Enzymes 05/25/21 Range/Units 14:37 AST 93 H (5-40) units/L CBC 05/25/21 Range/Units 14:37 WBC 5.5 (4.5-11.0) K/mm3 RBC 4.28 (3.65-5.03) M/mm3 Hgb 12.4 (11.8-15.2) gm/dl Hct 40.9 (35.5-45.6) % Plt Count 161 (140-440) K/mm3 Comprehensive Metabolic Panel 05/25/21 Range/Units 14:37 Sodium 140 (137-145) mmol/L Potassium 5.3 H (3.6-5.0) mmol/L Chloride 104.6 (98-107) mmol/L Carbon Dioxide 22 (22-30) mmol/L BUN 47 H (9-20) mg/dL Creatinine 2.0 H (0.8-1.3) mg/dL Glucose 154 H (75-100) mg/dL Calcium 8.7 (8.4-10.2) mg/dL AST 93 H (5-40) units/L ALT 590 H (7-56) units/L Alkaline Phosphatase 71 (35-129) units/L Total Protein 7.9 (6.3-8.2) g/dL Albumin 3.6 L (3.9-5) g/dL - Imaging and Cardiology EKG: report reviewed (Sinus tachycardia no acute ST-T wave changes) - Allied health notes Allied health notes reviewed: nursing
[2021-05-25 22:01] LABS: ABG Base Excess -2.4 mmol/L (-2.0-3.0); ABG HCO3 23.7 mmol/L (20.0-26.0); ABG Methemoglobin 0.5 % (0.0-1.5); ABG Oxygen Saturation 92.1 % (95.0-99.0); ABG PCO2 46.1 mm Hg; ABG PH 7.328 pH Units (7.350-7.450); ABG PO2 63.3 mm Hg (80.0-90.0)
[2021-05-26] MEDS: CEFEPIME/NS 2 GM/100 ML 2 GM/100 ML BAG IV SCH ×3 (01:08→22:21)
[2021-05-26] MEDS: fentaNYL DRIP Premix 2,000 MCG/100 ML BAG IV SCH ×4 (03:20→20:11)
[2021-05-26] MEDS: methylPREDNISolone Sod Succinate 125 MG/2 ML INJ IV SCH ×4 (05:03→22:23)
[2021-05-26] MEDS: HEPARIN 5,000 UNIT/1 ML VIAL SUB-Q SCH ×4 (05:03→22:23)
[2021-05-26 05:19] LABS: Hematocrit 37.8 % (35.5-45.6); Hemoglobin 11.7 gm/dl (11.8-15.2); Mean Corpuscular HGB Conc 31 % (32-34); Mean Corpuscular Volume 94 fl (84-94); Platelet Count 132 K/mm3 (140-440); Red Blood Count 4.03 M/mm3 (3.65-5.03)
[2021-05-26 05:25] LABS: Red Cell Distribution Width 20.3 % (13.2-15.2)
[2021-05-26 05:46] LABS: Albumin 3.4 g/dL (3.9-5); Calcium 8.8 mg/dL (8.4-10.2)
--- NOTE | 2021-05-26 05:54 | XRay Report ---
CHEST 1 VIEW INDICATION: follow up respiratory failure. COMPARISON: One day prior. FINDINGS: Support devices: Unchanged. Heart: Stable. Lungs/Pleura: Bibasilar opacities are stable. No pneumothorax. IMPRESSION: 1. No significant change. Signer Name: Brennan Sanders MD Signed: 05/26/2021 5:50 AM Workstation Name: [id number]
[2021-05-26] MEDS: IPRATROPIUM/ALBUTEROL SULFATE 3 ML AMPUL.NEB IH SCH ×4 (07:53→21:48)
[2021-05-26] MEDS: AZITHROMYCIN/NS 500 MG/250 ML 500 MG/250 ML BAG IV SCH (09:05)
[2021-05-26] MEDS: FAMOTIDINE 20 MG/2 ML INJ IV SCH ×2 (09:05→22:23)
[2021-05-26] MEDS: SENNOSIDES/DOCUSATE SODIUM 8.6/50 MG TAB FEEDTUBE SCH ×2 (09:06→22:24)
[2021-05-26] MEDS: ASCORBIC ACID 500 MG TAB PO SCH ×2 (09:06→22:24)
[2021-05-26] MEDS: ZINC SULFATE 220 MG CAP PO SCH ×2 (09:06→22:24)
[2021-05-26 10:05] LABS: ABG Base Excess -1.8 mmol/L (-2.0-3.0); ABG Methemoglobin 0.5 % (0.0-1.5); ABG Oxygen Saturation 90.7 % (95.0-99.0); ABG PCO2 44.9 mm Hg; ABG PH 7.346 pH Units (7.350-7.450); ABG PO2 60.5 mm Hg (80.0-90.0)
--- NOTE | 2021-05-26 11:04 | Consultation ---
History of Present Illness - Reason for Consult Consult date: 05/26/21 chronic renal failure - History of Present Illness This is a 41 year old male who presented to the hospital for respiratory failure requiring intubation. Patient is currently seen in ICU sedated and intubated. Patient has history of Obesity, Hypertension and REVA. Pertinent labs revealed an elevated serum creatinine of 3.2 on admission. Baseline serum creatinine unknown at present, it was 0.8 in 2018. We are being consulted for management of this patient's Acute on CKD. Past History Past Medical History: hypertension, other (REVA, obesity) Past Surgical History: No surgical history Social history: no significant social history Family history: no significant family history Medications and Allergies Allergies Allergy/AdvReac Type Severity Reaction Status Date / Time No Known Allergies Allergy Unverified 05/25/21 12:48 Home Medications Medication Instructions Recorded Confirmed Last Taken Type Amoxicillin [Amoxicillin TAB] 875 mg PO BID #20 tablet 11/12/14 Unknown Rx Active Meds: Active Medications Acetaminophen (Acetaminophen 325 Mg Tab) 650 mg PO Q4H PRN PRN Reason: Pain MILD(1-3)/Fever >100.5/[place] Albuterol (Albuterol 2.5 Mg/3 Ml Nebu) 2.5 mg IH Q4HRT PRN PRN Reason: Shortness Of Breath Albuterol/Ipratropium (Ipratropium/Albuterol Sulfate 3 Ml Ampul.Neb) 1 ampul IH QIDRT [facility] Last Admin: 05/26/21 07:53 Dose: 1 ampul Documented by: Lipase/Protease/Amylase (Lipase 10,500/Protease 25,000/Amylase 43,750 (Units) Dr Higgins) 1 each FEEDTUBE PRN PRN PRN Reason: For Clogged Feeding Tube Ascorbic Acid (Ascorbic Acid 500 Mg Tab) 500 mg PO BID [facility] Last Admin: 05/26/21 09:06 Dose: 500 mg Documented by: Famotidine (Famotidine 20 Mg/2 Ml Inj) 20 mg IV BID [facility] Last Admin: 05/26/21 09:05 Dose: 20 mg Documented by: Fentanyl (Fentanyl 100 Mcg/2 Ml Inj) 50 mcg IV Q10MIN PRN PRN Reason: ANALGESIA Last Admin: 05/23/21 18:50 Dose: 50 mcg Documented by: Heparin Sodium (Porcine) (Heparin 5,000 Unit/1 Ml Vial) 5,000 unit SUB-Q Q8HR [facility] Last Admin: 05/26/21 05:03 Dose: 5,000 unit Documented by: Hydrophilic Ointment (Lip Therapy Vaseline) 1 applic TP Q2HR PRN PRN Reason: Dry Lips Fentanyl Citrate (Fentanyl Drip Premix) 2,000 mcg in 100 mls @ 8.528 mls/hr IV TITR [facility]; Protocol Last Admin: 05/26/21 09:02 Dose: 2 mcg/kg/hr, 17.055 mls/hr Documented by: Azithromycin (Zithromax/Ns) 500 mg in 250 mls @ 250 mls/hr IV Q24H [facility] Stop: 05/27/21 07:59 Last Admin: 05/26/21 09:05 Dose: 250 mls/hr Documented by: Cefepime HCl (Cefepime/Ns 2 Gm/100 Ml) 2 gm in 100 mls @ 200 mls/hr IV Q12H [facility]; Protocol Last Admin: 05/26/21 09:04 Dose: 200 mls/hr Documented by: NORepinephrine/NS 8 MG-250 ML (Norepinephrine/Ns 8 Mg-250 Ml (Double Conc)) 8 mg in 250 mls @ 3.75 mls/hr IV TITRATE [facility]; Protocol Last Titration: 05/25/21 15:20 Dose: 0 mcg/min, 0 mls/hr Documented by: Propofol (Diprivan 10 Mg/Ml) 1,000 mg in 100 mls @ 5.117 mls/hr IV TITR [facility]; Protocol Last Titration: 05/26/21 10:30 Dose: 20 mcg/kg/min, 20.466 mls/hr Documented by: Methylprednisolone Sodium Succinate (Methylprednisolone Sod Succinate 125 Mg/2 Ml Inj) 125 mg IV Q8HR [facility] Last Admin: 05/26/21 05:04 Dose: Not Given Documented by: Multi-Ingred Cream/Lotion/Oil/Oint (Mineral Oil/Petrolatum, White Ophth Oint 3.5 Gm) 1 applic OU Q4HR PRN PRN Reason: Dry Eye(s) Ondansetron HCl (Ondansetron 4 Mg/2 Ml Inj) 4 mg IV Q8H PRN PRN Reason: Nausea And Vomiting Senna/Docusate Sodium (Sennosides/Docusate Sodium 8.6/50 Mg Tab) 1 tab FEEDTUBE BID [facility] Last Admin: 05/26/21 09:06 Dose: 1 tab Documented by: Simple Syrup (Simple Syrup 15 Ml) 15 ml FEEDTUBE PRN PRN PRN Reason: Hypoglycemia Simple Syrup (Simple Syrup 15 Ml) 30 ml FEEDTUBE PRN PRN PRN Reason: Hypoglycemia Sodium Bicarbonate (Sodium Bicarbonate 325 Mg Tab) 325 mg FEEDTUBE PRN PRN PRN Reason: For Clogged Feeding Tube Sodium Chloride (Sodium Chloride 0.9% 10 Ml Flush Syringe) 10 ml IV BID [facility] Last Admin: 05/26/21 09:06 Dose: 10 ml Documented by: Sodium Chloride (Sodium Chloride 0.9% 10 Ml Flush Syringe) 10 ml IV PRN PRN PRN Reason: LINE FLUSH Zinc Sulfate (Zinc Sulfate 220 Mg Cap) 220 mg PO BID [facility] Last Admin: 05/26/21 09:06 Dose: 220 mg Documented by: Review of Systems ROS unobtainable: due to endotracheal tube, due to mental status Exam - Vital Signs Vital signs: Vital Signs Temp Pulse Resp BP Pulse Ox 99.1 F 91 H 27 H 121/76 84 05/23/21 12:15 05/23/21 12:15 05/23/21 12:15 05/23/21 12:15 05/23/21 12:15 - General Appearance General appearance: sedated on ventilator, intubated EENT: ATNC Neck: Present: neck supple Respiratory: Decreased Breath Sounds Heart: S1S2 Gastrointestinal: Present: other (Obese abdomen) Integumentary: other (has calluus to feet and dry skin) Neurologic: other (Sedated) Musculoskeletal: Present: joint swelling, other (has 1+ edema to BLE) Results - Lab Results 05/26/21 Unknown 05/26/21 Unknown Most recent lab results WBC 4.2 K/mm3 (4.5-11.0) L 05/26/21 Unknown RBC 4.03 M/mm3 (3.65-5.03) 05/26/21 Unknown Hgb 11.7 gm/dl (11.8-15.2) L 05/26/21 Unknown Hct 37.8 % (35.5-45.6) 05/26/21 Unknown MCV 94 fl (84-94) 05/26/21 Unknown MCH 29 pg (28-32) 05/26/21 Unknown MCHC 31 % (32-34) L 05/26/21 Unknown RDW 20.3 % (13.2-15.2) H 05/26/21 Unknown Plt Count 132 K/mm3 (140-440) L 05/26/21 Unknown Lymph % (Auto) 5.9 % (13.4-35.0) L 05/23/21 15:09 [place] % (Auto) 6.1 % (0.0-7.3) 05/23/21 15:09 Eos % (Auto) 0.2 % (0.0-4.3) 05/23/21 15:09 Baso % (Auto) 0.3 % (0.0-1.8) 05/23/21 15:09 Lymph # (Auto) 0.6 K/mm3 (1.2-5.4) L 05/23/21 15:09 [place] # (Auto) 0.6 K/mm3 (0.0-0.8) 05/23/21 15:09 Eos # (Auto) 0.0 K/mm3 (0.0-0.4) 05/23/21 15:09 Baso # (Auto) 0.0 K/mm3 (0.0-0.1) 05/23/21 15:09 Add Manual Diff Complete 05/24/21 04:55 Total Counted 100 05/24/21 04:55 Seg Neutrophils % [place] [employer] 05/24/21 04:55 Seg Neuts % (Manual) 97.0 % (40.0-70.0) H 05/24/21 04:55 Lymphocytes % (Manual) 3.0 % (13.4-35.0) L 05/24/21 04:55 Nucleated RBC % Not Reportable 05/24/21 04:55 Seg Neutrophils # 8.2 K/mm3 (1.8-7.7) H 05/23/21 15:09 Seg Neutrophils # Man 8.4 K/mm3 (1.8-7.7) H 05/24/21 04:55 Band Neutrophils # 0.0 K/mm3 05/24/21 04:55 Lymphocytes # (Manual) 0.3 K/mm3 (1.2-5.4) L 05/24/21 04:55 Abs React Lymphs (Man) 0.0 K/mm3 05/24/21 04:55 Monocytes # (Manual) 0.0 K/mm3 (0.0-0.8) 05/24/21 04:55 Eosinophils # (Manual) 0.0 K/mm3 (0.0-0.4) 05/24/21 04:55 Basophils # (Manual) 0.0 K/mm3 (0.0-0.1) 05/24/21 04:55 Metamyelocytes # 0.0 K/mm3 05/24/21 04:55 Myelocytes # 0.0 K/mm3 05/24/21 04:55 Promyelocytes # 0.0 K/mm3 05/24/21 04:55 Blast Cells # 0.0 K/mm3 05/24/21 04:55 WBC Morphology Not Reportable 05/24/21 04:55 Hypersegmented Neuts Not Reportable 05/24/21 04:55 Hyposegmented Neuts Not Reportable 05/24/21 04:55 Hypogranular Neuts Not Reportable 05/24/21 04:55 Smudge Cells Not Reportable 05/24/21 04:55 Toxic Granulation Not Reportable 05/24/21 04:55 Toxic Vacuolation Not Reportable 05/24/21 04:55 Dohle Bodies Not Reportable 05/24/21 04:55 Pelger-Huet Anomaly Not Reportable 05/24/21 04:55 Cynthia Rods Not Reportable 05/24/21 04:55 Platelet Estimate Consistent w auto 05/24/21 04:55 Clumped Platelets Not Reportable 05/24/21 04:55 Plt Clumps, EDTA Not Reportable 05/24/21 04:55 Large Platelets Not Reportable 05/24/21 04:55 Giant Platelets Not Reportable 05/24/21 04:55 Platelet Satelliting Not Reportable 05/24/21 04:55 Plt Morphology Comment Not Reportable 05/24/21 04:55 RBC Morphology Not Reportable 05/24/21 04:55 Dimorphic RBCs Not Reportable 05/24/21 04:55 Polychromasia Not Reportable 05/24/21 04:55 Hypochromasia Not Reportable 05/24/21 04:55 Poikilocytosis Not Reportable 05/24/21 04:55 Anisocytosis 1+ 05/24/21 04:55 Microcytosis Not Reportable 05/24/21 04:55 Macrocytosis Not Reportable 05/24/21 04:55 Spherocytes Not Reportable 05/24/21 04:55 Pappenheimer Bodies Not Reportable 05/24/21 04:55 Sickle Cells Not Reportable 05/24/21 04:55 Target Cells Not Reportable 05/24/21 04:55 Tear Drop Cells Not Reportable 05/24/21 04:55 Ovalocytes Not Reportable 05/24/21 04:55 Helmet Cells Not Reportable 05/24/21 04:55 James-[place]andal Bodies Not Reportable 05/24/21 04:55 [place] Rings Not Reportable 05/24/21 04:55 [place] Cells Not Reportable 05/24/21 04:55 Bite Cells Not Reportable 05/24/21 04:55 Crenated Cell Not Reportable 05/24/21 04:55 Elliptocytes Not Reportable 05/24/21 04:55 Acanthocytes (Spur) Not Reportable 05/24/21 04:55 Rouleaux Not Reportable 05/24/21 04:55 Hemoglobin C Crystals Not Reportable 05/24/21 04:55 Schistocytes Not Reportable 05/24/21 04:55 Malaria parasites Not Reportable 05/24/21 04:55 Uli Bodies Not Reportable 05/24/21 04:55 Hem Pathologist Commnt No 05/24/21 04:55 PT 18.1 Sec. (12.2-14.9) H 05/23/21 15:09 INR 1.36 (0.87-1.13) H 05/23/21 15:09 APTT 23.1 Sec. (24.2-36.6) L 05/23/21 15:09 D-Dimer 4444.85 ng/mlDDU (0-234) H 05/23/21 15:09 ABG pH 7.346 pH Units (7.350-7.450) L 05/26/21 09:02 POC ABG pCO2 57.8 mmHg (32.0-48.0) H 05/25/21 04:20 ABG pCO2 44.9 mm Hg 05/26/21 09:02 POC ABG pO2 67.3 mmHg (83-108) L 05/25/21 04:20 ABG pO2 60.5 mm Hg (80.0-90.0) L 05/26/21 09:02 POC ABG HCO3 23.2 05/25/21 04:20 ABG HCO3 24.0 mmol/L (20.0-26.0) 05/26/21 09:02 ABG O2 Saturation 90.7 % (95.0-99.0) L 05/26/21 09:02 ABG O2 Content 16.4 (0.0-44) 05/26/21 09:02 POC ABG Base Excess -5.3 05/25/21 04:20 ABG Base Excess -1.8 mmol/L (-2.0-3.0) 05/26/21 09:02 ABG Hemoglobin 13.1 gm/dl (14.0-18.0) L 05/26/21 09:02 ABG Oxyhemoglobin 89.1 (94-98) L 05/25/21 04:20 ABG Carboxyhemoglobin 1.4 % (0.0-5.0) 05/26/21 09:02 ABG Methemoglobin 0.5 % (0.0-1.5) 05/26/21 09:02 ABG Sodium 140.6 mmol/L (136.0-145.0) 05/25/21 04:20 ABG Potassium 5.1 mmol/L (3.40-4.50) H 05/25/21 04:20 ABG Chloride 104.0 mmol/L (98-107) 05/25/21 04:20 ABG Glucose 182 mg/dL (65-95) H 05/25/21 04:20 Oxyhemoglobin 88.9 % (95.0-99.0) L 05/26/21 09:02 Carboxyhemoglobin 0.7 (0.5-1.5) 05/25/21 04:20 FiO2 100 % 05/26/21 09:02 FiO2 % 75.0 05/25/21 04:20 Sodium 142 mmol/L (137-145) 05/26/21 Unknown Potassium 5.2 mmol/L (3.6-5.0) H 05/26/21 Unknown Chloride 106.6 mmol/L (98-107) 05/26/21 Unknown Carbon Dioxide 23 mmol/L (22-30) 05/26/21 Unknown Anion Gap 18 mmol/L 05/26/21 Unknown BUN 47 mg/dL (9-20) H 05/26/21 Unknown Creatinine 2.0 mg/dL (0.8-1.3) H 05/26/21 Unknown Estimated GFR 44 ml/min 05/26/21 Unknown BUN/Creatinine Ratio 24 % 05/26/21 Unknown Glucose 136 mg/dL (75-100) H 05/26/21 Unknown POC Glucose 127 mg/dL (70-105) H 05/26/21 10:57 Lactic Acid 1.50 mmol/L (0.7-2.0) 05/23/21 15:09 Calcium 8.8 mg/dL (8.4-10.2) 05/26/21 Unknown Magnesium 2.30 mg/dL (1.7-2.3) 05/23/21 15:09 Total Bilirubin 0.60 mg/dL (0.1-1.2) 05/26/21 Unknown AST 64 units/L (5-40) H 05/26/21 Unknown ALT 448 units/L (7-56) H 05/26/21 Unknown Alkaline Phosphatase 58 units/L (35-129) 05/26/21 Unknown Ammonia 30.0 umol/L (25-60) 05/24/21 04:55 Total Creatine Kinase 48 units/L (55-170) L 05/23/21 15:09 Troponin T 0.038 ng/mL (0.00-0.029) H 05/23/21 15:09 C-Reactive Protein 10.00 mg/dL (0.00-1.30) H 05/23/21 19:10 NT-Pro-B Natriuret Pep 26591 pg/mL (0-450) H 05/23/21 15:09 Total Protein 7.0 g/dL (6.3-8.2) 05/26/21 Unknown Albumin 3.4 g/dL (3.9-5) L 05/26/21 Unknown Albumin/Globulin Ratio 0.9 % 05/26/21 Unknown Triglycerides 88 mg/dL (2-149) 05/23/21 15:09 Cholesterol 106 mg/dL (50-199) 05/23/21 15:09 LDL Cholesterol Direct 58 mg/dL (50-130) 05/23/21 15:09 HDL Cholesterol 29 mg/dL (40-59) L 05/23/21 15:09 Cholesterol/HDL Ratio 3.65 % 05/23/21 15:09 Procalcitonin 0.83 ng/mL (<0.15) 05/23/21 15:09 TSH 2.380 mlU/mL (0.270-4.200) 05/23/21 15:09 Arterial Blood Glucose 182 mg/dL (65-95) H 05/25/21 04:20 Urine Color [place] (Yellow) 05/23/21 Unknown Urine Turbidity Slightly-cloudy (Clear) 05/23/21 Unknown Urine pH 5.0 (5.0-7.0) 05/23/21 Unknown Ur Specific [place] 1.014 (1.003-1.030) 05/23/21 Unknown Urine Protein 30 mg/dl mg/dL (Negative) 05/23/21 Unknown Urine Glucose (UA) Neg mg/dL (Negative) 05/23/21 Unknown Urine Ketones Neg mg/dL (Negative) 05/23/21 Unknown Urine Blood Mod (Negative) 05/23/21 Unknown Urine Nitrite Neg (Negative) 05/23/21 Unknown Urine Bilirubin Neg (Negative) 05/23/21 Unknown Urine Urobilinogen 4.0 mg/dL (<2.0) 05/23/21 Unknown Ur Leukocyte Esterase Tr (Negative) 05/23/21 Unknown Urine WBC (Auto) 34.0 /HPF (0.0-6.0) H 05/23/21 Unknown Urine RBC (Auto) 20.0 /HPF (0.0-6.0) 05/23/21 Unknown U Epithel Cells (Auto) 2.0 /HPF (0-13.0) 05/23/21 Unknown Urine Bacteria (Auto) 1+ /HPF (Negative) 05/23/21 Unknown Urine Mucus Few /HPF 05/23/21 Unknown Salicylates < 0.3 mg/dL (2.8-20.0) L 05/23/21 15:09 Urine Opiates Screen Negative 05/23/21 Unknown Urine Methadone Screen Negative 05/23/21 Unknown Acetaminophen 5.0 ug/mL (10.0-30.0) L 05/23/21 15:09 Ur Barbiturates Screen Negative 05/23/21 Unknown Ur Phencyclidine Scrn Negative 05/23/21 Unknown Ur Amphetamines Screen Negative 05/23/21 Unknown U Benzodiazepines Scrn Negative 05/23/21 Unknown Urine Cocaine Screen Negative 05/23/21 Unknown U Marijuana (THC) Screen Negative 05/23/21 Unknown Drugs of Abuse Note Disclamer 05/23/21 Unknown Plasma/Serum Alcohol < 0.01 % (0-0.07) 05/23/21 15:09 Coronavirus (PCR) Negative (Negative) 05/23/21 Unknown Assessment and Plan Assessment: Acute Renal Failure likely on CKD Hypertension Acute Respiratory Failure Pneumonia, community-acquired Morbid obesity Obstructive sleep apnea Edema Plan: Renal labs reviewed. Serum creatinine trend down to 2.0 today, admission level was 3.2, non-oliguric May have unerlying CKD given history of Obesity and Hypertension. His serum creatinine was 0.8 in 2018 but current baseline is to be determined Obtain urine lytes, protein and eosinophils Not a candidate for renal ultrasound due to size/ body habitus Renally dose medications Obtain daily weights Monitor I/O's daily Avoid nephrotoxic agents No acute indication for HEATING AND VENTILATING TENDER Will monitor renal function closely Plan of care reviewed by Dr. Santos
[2021-05-26] MEDS ORDERED: SODIUM POLYSTYRENE 15 GM/60 ML ORAL LIQD PR SCH (13:00)
--- NOTE | 2021-05-26 13:06 | Progress Note ---
Assessment and Plan Acute respiratory failure intubated on the vent an echo shows mild to moderate dilated right heart chambers, mild to moderate TR, with moderate pulmonary HTN. RVSP 53 mmHG. Normal LVEF 55%. Renal failure Morbidly obese Underlying sleep apnea pt not able to undergo pulmonary embolism evaluation due to his large size. Conservative cardiac management. Subjective Date of service: 05/26/21 Principal diagnosis: Acute hypoxemic and hypercapnic resp failure; PUI COVID-19; Pneumonia; FERMIN Interval history: Pt remains intubated, unresponsive, on mechanical ventilation. Objective Vital Signs Temp Pulse Pulse Pulse Resp Resp Resp 05/26/21 12:31 61 30 H 05/26/21 12:21 60 30 H 05/26/21 12:10 60 30 H 05/26/21 12:00 98.6 F 65 30 H 05/26/21 11:51 61 30 H 05/26/21 11:41 59 L 30 H 05/26/21 11:31 62 30 H 05/26/21 11:21 60 20 05/26/21 11:19 60 05/26/21 11:10 64 30 H 05/26/21 11:00 70 29 H 05/26/21 10:50 62 30 H 05/26/21 10:41 61 23 05/26/21 10:31 66 30 H 05/26/21 10:21 69 30 H 05/26/21 10:11 74 30 H 05/26/21 10:00 96 H 30 H 05/26/21 09:51 79 30 H 05/26/21 09:41 89 29 H 05/26/21 09:31 86 30 H 05/26/21 09:21 94 H 28 H 05/26/21 09:11 89 30 H 05/26/21 09:00 105 H 22 05/26/21 08:51 64 30 H 05/26/21 08:41 62 30 H 05/26/21 08:31 60 30 H 05/26/21 08:21 64 30 H 05/26/21 08:11 66 24 05/26/21 08:00 67 30 H 05/26/21 07:53 74 77 30 H 05/26/21 07:51 73 30 H 05/26/21 07:44 98.2 F 05/26/21 07:41 78 30 H 05/26/21 07:31 66 30 H 05/26/21 07:21 66 30 H 05/26/21 07:11 66 30 H 05/26/21 07:00 72 30 H 05/26/21 06:51 69 30 H 05/26/21 06:41 67 30 H 05/26/21 06:30 73 29 H 05/26/21 06:21 71 30 H 05/26/21 06:11 69 30 H 05/26/21 06:00 71 30 H 05/26/21 05:51 70 30 H 05/26/21 05:41 75 30 H 05/26/21 05:31 85 30 H 05/26/21 05:21 76 30 H 05/26/21 05:11 78 30 H 05/26/21 05:00 92 H 30 H 05/26/21 04:51 104 H 22 05/26/21 04:41 100 H 19 05/26/21 04:30 78 30 H 05/26/21 04:21 101 H 19 05/26/21 04:11 90 26 H 05/26/21 04:00 69 26 H 05/26/21 03:51 71 16 05/26/21 03:41 63 23 05/26/21 03:30 91 H 15 05/26/21 03:26 99.8 F H 05/26/21 03:23 65 05/26/21 03:21 64 30 H 05/26/21 03:11 65 30 H 05/26/21 03:00 68 13 05/26/21 02:51 64 4 L 05/26/21 02:41 64 6 L 05/26/21 02:30 70 0 L 05/26/21 02:21 70 7 L 05/26/21 02:11 87 16 05/26/21 02:00 85 12 05/26/21 01:51 98 H 13 05/26/21 01:41 97 H 11 L 05/26/21 01:30 69 12 05/26/21 01:21 75 15 05/26/21 01:11 68 8 L 05/26/21 01:00 69 15 05/26/21 00:51 68 24 05/26/21 00:41 67 27 H 05/26/21 00:30 76 13 05/26/21 00:21 68 11 L 05/26/21 00:11 73 9 L 05/26/21 00:00 81 30 H 05/25/21 23:51 87 15 05/25/21 23:41 90 12 05/25/21 23:39 98.8 F 05/25/21 23:30 96 H 11 L 05/25/21 23:21 93 H 13 05/25/21 23:11 88 13 05/25/21 23:00 69 8 L 05/25/21 22:51 67 12 05/25/21 22:41 68 30 H 05/25/21 22:30 70 30 H 05/25/21 22:21 68 30 H 05/25/21 22:11 69 30 H 05/25/21 22:00 74 30 H 05/25/21 21:51 69 13 05/25/21 21:41 69 9 L 05/25/21 21:30 69 9 L 05/25/21 21:21 70 13 05/25/21 21:11 71 6 L 05/25/21 21:00 71 8 L 05/25/21 20:51 70 11 L 05/25/21 20:41 70 8 L 05/25/21 20:30 67 9 L 05/25/21 20:21 74 7 L 05/25/21 20:11 69 11 L 05/25/21 20:05 74 7 L 05/25/21 20:00 98.9 F 71 05/25/21 18:00 108 H 21 05/25/21 17:50 19 05/25/21 17:41 05/25/21 17:34 87 30 H 05/25/21 17:31 27 H 05/25/21 17:20 28 H 05/25/21 17:15 118 H 15 05/25/21 17:01 12 05/25/21 16:45 81 30 H 05/25/21 16:35 91 H 87 30 H 30 H 05/25/21 16:31 89 26 H 05/25/21 16:30 91 H 05/25/21 16:15 88 30 H 05/25/21 16:01 108 H 29 H 05/25/21 15:45 97 H 30 H 05/25/21 15:31 100 H 30 H 05/25/21 15:15 108 H 30 H 05/25/21 15:01 126 H 22 05/25/21 14:45 136 H 16 05/25/21 14:31 116 H 22 05/25/21 14:15 97 H 30 H 05/25/21 14:01 104 H 16 05/25/21 14:00 96 H 05/25/21 13:45 100 H 27 H 05/25/21 13:31 109 H 28 H 05/25/21 13:15 91 H 22 BP Pulse Ox 05/26/21 12:31 122/63 95 05/26/21 12:21 122/63 95 05/26/21 12:10 129/68 96 05/26/21 12:00 122/63 96 05/26/21 11:51 129/68 96 05/26/21 11:41 129/68 96 05/26/21 11:31 129/68 95 05/26/21 11:21 129/68 96 05/26/21 11:19 129/68 96 05/26/21 11:10 129/68 96 05/26/21 11:00 129/68 95 05/26/21 10:50 126/75 96 05/26/21 10:41 126/75 96 05/26/21 10:31 126/75 97 05/26/21 10:21 126/75 96 05/26/21 10:11 126/75 95 05/26/21 10:00 126/75 94 05/26/21 09:51 131/84 95 05/26/21 09:41 131/84 94 05/26/21 09:31 131/84 95 05/26/21 09:21 131/84 94 05/26/21 09:11 131/84 95 05/26/21 09:00 131/84 94 05/26/21 08:51 118/66 96 05/26/21 08:41 118/66 96 05/26/21 08:31 118/66 96 05/26/21 08:21 118/66 95 05/26/21 08:11 118/66 97 05/26/21 08:00 118/66 96 05/26/21 07:53 120/66 96 05/26/21 07:51 120/66 96 05/26/21 07:44 05/26/21 07:41 120/66 96 05/26/21 07:31 120/66 96 05/26/21 07:21 120/66 95 05/26/21 07:11 120/66 95 05/26/21 07:00 120/66 94 05/26/21 06:51 122/69 95 05/26/21 06:41 122/69 95 05/26/21 06:30 122/69 95 05/26/21 06:21 122/69 96 05/26/21 06:11 122/69 96 05/26/21 06:00 122/69 95 05/26/21 05:51 142/80 97 05/26/21 05:41 142/80 96 05/26/21 05:31 142/80 93 05/26/21 05:21 142/80 95 05/26/21 05:11 142/80 94 05/26/21 05:00 142/80 92 05/26/21 04:51 141/80 91 05/26/21 04:41 121/67 90 05/26/21 04:30 121/67 95 05/26/21 04:21 123/62 92 05/26/21 04:11 123/62 93 05/26/21 04:00 123/62 95 05/26/21 03:51 123/74 98 05/26/21 03:41 123/70 97 05/26/21 03:30 123/70 96 05/26/21 03:26 05/26/21 03:23 05/26/21 03:21 118/67 96 05/26/21 03:11 130/69 95 05/26/21 03:00 130/69 96 05/26/21 02:51 130/64 96 05/26/21 02:41 124/65 95 05/26/21 02:30 127/66 93 05/26/21 02:21 124/65 92 05/26/21 02:11 130/77 91 05/26/21 02:00 130/77 88 05/26/21 01:51 128/87 85 05/26/21 01:41 124/68 86 05/26/21 01:30 124/68 88 05/26/21 01:21 125/69 90 05/26/21 01:11 124/67 90 05/26/21 01:00 124/67 94 05/26/21 00:51 119/69 96 05/26/21 00:41 119/65 92 05/26/21 00:30 120/66 94 05/26/21 00:21 119/65 97 05/26/21 00:11 122/68 98 05/26/21 00:00 122/68 99 05/25/21 23:51 125/75 98 05/25/21 23:41 120/67 97 05/25/21 23:39 05/25/21 23:30 137/82 97 05/25/21 23:21 133/99 100 05/25/21 23:11 118/60 89 05/25/21 23:00 120/67 96 05/25/21 22:51 118/60 98 05/25/21 22:41 112/60 97 05/25/21 22:30 113/62 93 05/25/21 22:21 112/60 96 05/25/21 22:11 121/62 96 05/25/21 22:00 121/62 98 05/25/21 21:51 113/60 96 05/25/21 21:41 120/63 95 05/25/21 21:30 114/59 96 05/25/21 21:21 114/64 97 05/25/21 21:11 120/63 96 05/25/21 21:00 120/63 96 05/25/21 20:51 112/60 97 05/25/21 20:41 116/61 94 05/25/21 20:30 114/60 97 05/25/21 20:21 116/61 97 05/25/21 20:11 98 05/25/21 20:05 97 05/25/21 20:00 112/60 97 05/25/21 18:00 129/64 93 05/25/21 17:50 132/60 92 05/25/21 17:41 129/64 93 05/25/21 17:34 133/68 95 05/25/21 17:31 127/68 93 05/25/21 17:20 127/68 94 05/25/21 17:15 128/66 92 05/25/21 17:01 127/68 92 05/25/21 16:45 119/71 95 05/25/21 16:35 05/25/21 16:31 123/64 97 05/25/21 16:30 123/64 96 05/25/21 16:15 115/65 96 05/25/21 16:01 112/74 94 05/25/21 15:45 118/70 94 05/25/21 15:31 118/71 94 05/25/21 15:15 134/79 94 05/25/21 15:01 141/76 94 05/25/21 14:45 143/78 87 05/25/21 14:31 123/87 89 05/25/21 14:15 130/76 91 05/25/21 14:01 141/73 90 05/25/21 14:00 05/25/21 13:45 136/88 90 05/25/21 13:31 138/83 89 05/25/21 13:15 142/72 93 - Physical Examination General: Other (Sedated, on the vent; obese) Cardiac: Positive: Reg Rate and Rhythm - Labs and Meds Cardiac Enzymes 05/25/21 05/26/21 Range/Units 14:37 Unknown AST 93 H 64 H (5-40) units/L CBC 05/25/21 05/26/21 Range/Units 14:37 Unknown WBC 5.5 4.2 L (4.5-11.0) K/mm3 RBC 4.28 4.03 (3.65-5.03) M/mm3 Hgb 12.4 11.7 L (11.8-15.2) gm/dl Hct 40.9 37.8 (35.5-45.6) % Plt Count 161 132 L (140-440) K/mm3 Comprehensive Metabolic Panel 05/25/21 05/26/21 Range/Units 14:37 Unknown Sodium 140 142 (137-145) mmol/L Potassium 5.3 H 5.2 H (3.6-5.0) mmol/L Chloride 104.6 106.6 (98-107) mmol/L Carbon Dioxide 22 23 (22-30) mmol/L BUN 47 H 47 H (9-20) mg/dL Creatinine 2.0 H 2.0 H (0.8-1.3) mg/dL Glucose 154 H 136 H (75-100) mg/dL Calcium 8.7 8.8 (8.4-10.2) mg/dL AST 93 H 64 H (5-40) units/L ALT 590 H 448 H (7-56) units/L Alkaline Phosphatase 71 58 (35-129) units/L Total Protein 7.9 7.0 (6.3-8.2) g/dL Albumin 3.6 L 3.4 L (3.9-5) g/dL - Allied health notes Allied health notes reviewed: nursing
--- NOTE | 2021-05-26 14:08 | Progress Note ---
Assessment and Plan Acute possibly on chronic hypoxemic and hypercapnic respiratory failure Pneumonia, community-acquired Acute toxic metabolic encephalopathy Person under investigation for COVID-19 Morbid obesity Obstructive sleep apnea History of hypertension Acute kidney injury Hyperkalemia Elevated serum transaminases Possible shock liver Hyperammonemia Non-ST elevation myocardial infarction - increased peep to 14 cm H2O - [id number] FiO2 to 90% - ABG at 9 pm and address - wean vasopressors for target MAP > 65 mmHg - nephrology evaluation ongoing - continue care as below otherwise; - continue Daily SAT and SBT assessment as tolerated - continue to wean supplemental oxygen for target O2 sat's > 90% acutely - VAP bundle addressed - continue lung protective strategies - continue bronchodilators with pulmonary hygiene per RT - wean per pulmonary driven protocols otherwise - avoid nephrotoxins, renally dose all medications - continue accuchecks with glycemic control per SSI (While critically ill target blood glucose of 140-180 mg/dL; avoid hypoglycemia) - sedation prn for target RASS 0 to -1 - continue to avoid benzodiazepine's, reduce the possibility of delirium - AB's per ID rec's - prn analgesia per CPOT score - Maintenance of sleep-wake cycle, avoid delirium - continue enteral nutritional support at goal rate as tolerated - G.I. & VTE prophylaxis - PT/OT/ROM exercises - continue mobility protocols for pressure ulcer prophylaxis - Monitor hemodynamics closely - continue other care per attending / other consultants - discharge planning ongoing concurrently COVID SPECIFIC INTERVENTIONS - COVID-19 test result pending .... Re-evaluate in am & prn CONDITION: CRITICAL PROGNOSIS: GUARDED CODE STATUS: FULL CODE The high probability of a clinically significant, sudden or life-threatening deterioration of the [respiratory, cardiovascular, renal & neurologic] system(s) required my full and direct attention, intervention and personal management. The aggregate critical care time was [33] minutes without overlap. Time includes spent on; [x] Data Review and interpretation [x] Patient assessment and monitoring of vital signs [x] Documentation [x] Medication orders and management Subjective Date of service: 05/26/21 Principal diagnosis: Acute hypoxemic and hypercapnic resp failure; PUI COVID-19; Pneumonia; FERMIN Interval history: Patient is seen today for: Acute hypoxemic and hypercapnic respiratory failure; PUI NCOVID-19; Pneumonia; CAP; FERMIN; REVA Seen and examined at bedside; 24hour events reviewed; nursing and respiratory care staff consulted; no adverse overnight events reported to me; remaions on MVS; COVID-19 test result still pending; dopplers negative for VTE; remains on 100% FiO2 and peep of 12 with minimal room to wean Objective Vital Signs - 12hr 05/26/21 05/26/21 05/26/21 02:11 02:21 02:30 Temperature Pulse Rate 87 70 70 Pulse Rate [ Anterior Bilateral Throughout] Respiratory 16 7 L 0 L Rate Respiratory Rate [Anterior Bilateral Throughout] Blood Pressure 130/77 124/65 127/66 O2 Sat by Pulse 91 92 93 Oximetry 05/26/21 05/26/21 05/26/21 02:41 02:51 03:00 Temperature Pulse Rate 64 64 68 Pulse Rate [ Anterior Bilateral Throughout] Respiratory 6 L 4 L 13 Rate Respiratory Rate [Anterior Bilateral Throughout] Blood Pressure 124/65 130/64 130/69 O2 Sat by Pulse 95 96 96 Oximetry 05/26/21 05/26/21 05/26/21 03:11 03:21 03:23 Temperature Pulse Rate 65 64 65 Pulse Rate [ Anterior Bilateral Throughout] Respiratory 30 H 30 H Rate Respiratory Rate [Anterior Bilateral Throughout] Blood Pressure 130/69 118/67 O2 Sat by Pulse 95 96 Oximetry 05/26/21 05/26/21 05/26/21 03:26 03:30 03:41 Temperature 99.8 F H Pulse Rate 91 H 63 Pulse Rate [ Anterior Bilateral Throughout] Respiratory 15 23 Rate Respiratory Rate [Anterior Bilateral Throughout] Blood Pressure 123/70 123/70 O2 Sat by Pulse 96 97 Oximetry 05/26/21 05/26/21 05/26/21 03:51 04:00 04:11 Temperature Pulse Rate 71 69 90 Pulse Rate [ Anterior Bilateral Throughout] Respiratory 16 26 H 26 H Rate Respiratory Rate [Anterior Bilateral Throughout] Blood Pressure 123/74 123/62 123/62 O2 Sat by Pulse 98 95 93 Oximetry 05/26/21 05/26/21 05/26/21 04:21 04:30 04:41 Temperature Pulse Rate 101 H 78 100 H Pulse Rate [ Anterior Bilateral Throughout] Respiratory 19 30 H 19 Rate Respiratory Rate [Anterior Bilateral Throughout] Blood Pressure 123/62 121/67 121/67 O2 Sat by Pulse 92 95 90 Oximetry 05/26/21 05/26/21 05/26/21 04:51 05:00 05:11 Temperature Pulse Rate 104 H 92 H 78 Pulse Rate [ Anterior Bilateral Throughout] Respiratory 22 30 H 30 H Rate Respiratory Rate [Anterior Bilateral Throughout] Blood Pressure 141/80 142/80 142/80 O2 Sat by Pulse 91 92 94 Oximetry 05/26/21 05/26/21 05/26/21 05:21 05:31 05:41 Temperature Pulse Rate 76 85 75 Pulse Rate [ Anterior Bilateral Throughout] Respiratory 30 H 30 H 30 H Rate Respiratory Rate [Anterior Bilateral Throughout] Blood Pressure 142/80 142/80 142/80 O2 Sat by Pulse 95 93 96 Oximetry 05/26/21 05/26/21 05/26/21 05:51 06:00 06:11 Temperature Pulse Rate 70 71 69 Pulse Rate [ Anterior Bilateral Throughout] Respiratory 30 H 30 H 30 H Rate Respiratory Rate [Anterior Bilateral Throughout] Blood Pressure 142/80 122/69 122/69 O2 Sat by Pulse 97 95 96 Oximetry 05/26/21 05/26/21 05/26/21 06:21 06:30 06:41 Temperature Pulse Rate 71 73 67 Pulse Rate [ Anterior Bilateral Throughout] Respiratory 30 H 29 H 30 H Rate Respiratory Rate [Anterior Bilateral Throughout] Blood Pressure 122/69 122/69 122/69 O2 Sat by Pulse 96 95 95 Oximetry 05/26/21 05/26/21 05/26/21 06:51 07:00 07:11 Temperature Pulse Rate 69 72 66 Pulse Rate [ Anterior Bilateral Throughout] Respiratory 30 H 30 H 30 H Rate Respiratory Rate [Anterior Bilateral Throughout] Blood Pressure 122/69 120/66 120/66 O2 Sat by Pulse 95 94 95 Oximetry 05/26/21 05/26/21 05/26/21 07:21 07:31 07:41 Temperature Pulse Rate 66 66 78 Pulse Rate [ Anterior Bilateral Throughout] Respiratory 30 H 30 H 30 H Rate Respiratory Rate [Anterior Bilateral Throughout] Blood Pressure 120/66 120/66 120/66 O2 Sat by Pulse 95 96 96 Oximetry 05/26/21 05/26/21 05/26/21 07:44 07:51 07:53 Temperature 98.2 F Pulse Rate 73 74 Pulse Rate [ 77 Anterior Bilateral Throughout] Respiratory 30 H Rate Respiratory 30 H Rate [Anterior Bilateral Throughout] Blood Pressure 120/66 120/66 O2 Sat by Pulse 96 96 Oximetry 05/26/21 05/26/21 05/26/21 08:00 08:11 08:21 Temperature Pulse Rate 67 66 64 Pulse Rate [ Anterior Bilateral Throughout] Respiratory 30 H 24 30 H Rate Respiratory Rate [Anterior Bilateral Throughout] Blood Pressure 118/66 118/66 118/66 O2 Sat by Pulse 96 97 95 Oximetry 05/26/21 05/26/21 05/26/21 08:31 08:41 08:51 Temperature Pulse Rate 60 62 64 Pulse Rate [ Anterior Bilateral Throughout] Respiratory 30 H 30 H 30 H Rate Respiratory Rate [Anterior Bilateral Throughout] Blood Pressure 118/66 118/66 118/66 O2 Sat by Pulse 96 96 96 Oximetry 05/26/21 05/26/21 05/26/21 09:00 09:11 09:21 Temperature Pulse Rate 105 H 89 94 H Pulse Rate [ Anterior Bilateral Throughout] Respiratory 22 30 H 28 H Rate Respiratory Rate [Anterior Bilateral Throughout] Blood Pressure 131/84 131/84 131/84 O2 Sat by Pulse 94 95 94 Oximetry 05/26/21 05/26/21 05/26/21 09:31 09:41 09:51 Temperature Pulse Rate 86 89 79 Pulse Rate [ Anterior Bilateral Throughout] Respiratory 30 H 29 H 30 H Rate Respiratory Rate [Anterior Bilateral Throughout] Blood Pressure 131/84 131/84 131/84 O2 Sat by Pulse 95 94 95 Oximetry 05/26/21 05/26/21 05/26/21 10:00 10:11 10:21 Temperature Pulse Rate 96 H 74 69 Pulse Rate [ Anterior Bilateral Throughout] Respiratory 30 H 30 H 30 H Rate Respiratory Rate [Anterior Bilateral Throughout] Blood Pressure 126/75 126/75 126/75 O2 Sat by Pulse 94 95 96 Oximetry 05/26/21 05/26/21 05/26/21 10:31 10:41 10:50 Temperature Pulse Rate 66 61 62 Pulse Rate [ Anterior Bilateral Throughout] Respiratory 30 H 23 30 H Rate Respiratory Rate [Anterior Bilateral Throughout] Blood Pressure 126/75 126/75 126/75 O2 Sat by Pulse 97 96 96 Oximetry 05/26/21 05/26/21 05/26/21 11:00 11:10 11:19 Temperature Pulse Rate 70 64 60 Pulse Rate [ Anterior Bilateral Throughout] Respiratory 29 H 30 H Rate Respiratory Rate [Anterior Bilateral Throughout] Blood Pressure 129/68 129/68 129/68 O2 Sat by Pulse 95 96 96 Oximetry 05/26/21 05/26/21 05/26/21 11:21 11:31 11:41 Temperature Pulse Rate 60 62 59 L Pulse Rate [ Anterior Bilateral Throughout] Respiratory 20 30 H 30 H Rate Respiratory Rate [Anterior Bilateral Throughout] Blood Pressure 129/68 129/68 129/68 O2 Sat by Pulse 96 95 96 Oximetry 05/26/21 05/26/21 05/26/21 11:51 12:00 12:10 Temperature 98.6 F Pulse Rate 61 65 60 Pulse Rate [ Anterior Bilateral Throughout] Respiratory 30 H 30 H 30 H Rate Respiratory Rate [Anterior Bilateral Throughout] Blood Pressure 129/68 122/63 129/68 O2 Sat by Pulse 96 96 96 Oximetry 05/26/21 05/26/21 12:21 12:31 Temperature Pulse Rate 60 61 Pulse Rate [ Anterior Bilateral Throughout] Respiratory 30 H 30 H Rate Respiratory Rate [Anterior Bilateral Throughout] Blood Pressure 122/63 122/63 O2 Sat by Pulse 95 95 Oximetry Constitutional: no acute distress, other (middle aged morbidly obese male with m ildly increased respiratory effort at rest on MVS) Eyes: non-icteric ENT: oropharynx moist, other (ETT 24 cm FRANCIS) Neck: supple, no lymphadenopathy, no JVD Effort: mildly labored Ascultation: Bilateral: rhonchi Percussion: Bilateral: not dull Cardiovascular: regular rate and rhythm Gastrointestinal: normoactive bowel sounds, soft, non-tender, non-distended Integumentary: rash (stasis dermatitis) Extremities: no cyanosis, no edema, pulses normal, no ischemia or petechiae, other (Right big toe wound) Neurologic: non-focal exam (grossly), pupils equal and round, other (follows simple commands) Psychiatric: other (unable to assess re: AMS) CBC and BMP: 05/27/21 08:00 05/27/21 08:00 ABG, PT/INR, D-dimer: ABG ABG pH 7.346 pH Units (7.350-7.450) L 05/26/21 09:02 POC ABG pCO2 57.8 mmHg (32.0-48.0) H 05/25/21 04:20 ABG pCO2 44.9 mm Hg 05/26/21 09:02 POC ABG pO2 67.3 mmHg (83-108) L 05/25/21 04:20 ABG pO2 60.5 mm Hg (80.0-90.0) L 05/26/21 09:02 POC ABG HCO3 23.2 05/25/21 04:20 ABG O2 Saturation 90.7 % (95.0-99.0) L 05/26/21 09:02 PT/INR, D-dimer PT 18.1 Sec. (12.2-14.9) H 05/23/21 15:09 INR 1.36 (0.87-1.13) H 05/23/21 15:09 D-Dimer 4444.85 ng/mlDDU (0-234) H 05/23/21 15:09 Abnormal lab findings: Abnormal Labs 05/23/21 05/23/21 05/23/21 15:00 15:09 15:09 WBC Hgb MCV 95 H MCHC 30 L RDW 20.1 H Plt Count Lymph % (Auto) 5.9 L Lymph # (Auto) 0.6 L Seg Neutrophils % 87.5 H Seg Neuts % (Manual) Lymphocytes % (Manual) Seg Neutrophils # 8.2 H Seg Neutrophils # Man Lymphocytes # (Manual) PT 18.1 H INR 1.36 H APTT 23.1 L D-Dimer ABG pH 7.215 L POC ABG pCO2 POC ABG pO2 ABG pO2 ABG HCO3 28.4 H ABG O2 Saturation ABG Base Excess ABG Hemoglobin 13.5 L ABG Oxyhemoglobin ABG Potassium ABG Glucose Oxyhemoglobin 92.6 L Potassium Carbon Dioxide BUN Creatinine Glucose POC Glucose Calcium AST ALT Ammonia Total Creatine Kinase Troponin T C-Reactive Protein NT-Pro-B Natriuret Pep Albumin HDL Cholesterol Arterial Blood Glucose Urine WBC (Auto) Salicylates Acetaminophen 05/23/21 05/23/21 05/23/21 15:09 15:09 15:09 WBC Hgb MCV MCHC RDW Plt Count Lymph % (Auto) Lymph # (Auto) Seg Neutrophils % Seg Neuts % (Manual) Lymphocytes % (Manual) Seg Neutrophils # Seg Neutrophils # Man Lymphocytes # (Manual) PT INR APTT D-Dimer ABG pH POC ABG pCO2 POC ABG pO2 ABG pO2 ABG HCO3 ABG O2 Saturation ABG Base Excess ABG Hemoglobin ABG Oxyhemoglobin ABG Potassium ABG Glucose Oxyhemoglobin Potassium 5.2 H Carbon Dioxide BUN 40 H Creatinine 3.2 H Glucose 133 H POC Glucose Calcium AST 1094 H ALT 1089 H Ammonia 75.0 H Total Creatine Kinase Troponin T 0.038 H C-Reactive Protein NT-Pro-B Natriuret Pep Albumin 3.0 L HDL Cholesterol 29 L Arterial Blood Glucose Urine WBC (Auto) Salicylates < 0.3 L Acetaminophen 05/23/21 05/23/21 05/23/21 15:09 15:09 15:09 WBC Hgb MCV MCHC RDW Plt Count Lymph % (Auto) Lymph # (Auto) Seg Neutrophils % Seg Neuts % (Manual) Lymphocytes % (Manual) Seg Neutrophils # Seg Neutrophils # Man Lymphocytes # (Manual) PT INR APTT D-Dimer 4444.85 H ABG pH POC ABG pCO2 POC ABG pO2 ABG pO2 ABG HCO3 ABG O2 Saturation ABG Base Excess ABG Hemoglobin ABG Oxyhemoglobin ABG Potassium ABG Glucose Oxyhemoglobin Potassium Carbon Dioxide BUN Creatinine Glucose POC Glucose Calcium AST ALT Ammonia Total Creatine Kinase 48 L Troponin T C-Reactive Protein NT-Pro-B Natriuret Pep 09080 H Albumin HDL Cholesterol Arterial Blood Glucose Urine WBC (Auto) Salicylates Acetaminophen 5.0 L 05/23/21 05/23/21 05/23/21 19:10 20:48 Unknown WBC Hgb MCV MCHC RDW Plt Count Lymph % (Auto) Lymph # (Auto) Seg Neutrophils % Seg Neuts % (Manual) Lymphocytes % (Manual) Seg Neutrophils # Seg Neutrophils # Man Lymphocytes # (Manual) PT INR APTT D-Dimer ABG pH 7.332 L POC ABG pCO2 POC ABG pO2 ABG pO2 74.0 L ABG HCO3 ABG O2 Saturation 94.4 L ABG Base Excess ABG Hemoglobin 12.5 L ABG Oxyhemoglobin ABG Potassium ABG Glucose Oxyhemoglobin 92.3 L Potassium Carbon Dioxide BUN Creatinine Glucose POC Glucose Calcium AST ALT Ammonia Total Creatine Kinase Troponin T C-Reactive Protein 10.00 H NT-Pro-B Natriuret Pep Albumin HDL Cholesterol Arterial Blood Glucose Urine WBC (Auto) 34.0 H Salicylates Acetaminophen 05/24/21 05/24/21 05/24/21 04:55 04:55 09:15 WBC Hgb MCV 95 H MCHC 31 L RDW 19.4 H Plt Count Lymph % (Auto) Lymph # (Auto) Seg Neutrophils % Seg Neuts % (Manual) 97.0 H Lymphocytes % (Manual) 3.0 L Seg Neutrophils # Seg Neutrophils # Man 8.4 H Lymphocytes # (Manual) 0.3 L PT INR APTT D-Dimer ABG pH POC ABG pCO2 POC ABG pO2 ABG pO2 90.6 H ABG HCO3 ABG O2 Saturation ABG Base Excess -3.7 L ABG Hemoglobin 13.5 L ABG Oxyhemoglobin ABG Potassium ABG Glucose Oxyhemoglobin Potassium 5.5 H Carbon Dioxide 20 L BUN 39 H Creatinine 2.2 H Glucose 155 H POC Glucose Calcium 8.3 L AST 571 H ALT 951 H Ammonia Total Creatine Kinase Troponin T C-Reactive Protein NT-Pro-B Natriuret Pep Albumin 3.2 L HDL Cholesterol Arterial Blood Glucose Urine WBC (Auto) Salicylates Acetaminophen 05/25/21 05/25/21 05/25/21 04:20 14:37 14:37 WBC Hgb MCV 96 H MCHC 30 L RDW 20.7 H Plt Count Lymph % (Auto) Lymph # (Auto) Seg Neutrophils % Seg Neuts % (Manual) Lymphocytes % (Manual) Seg Neutrophils # Seg Neutrophils # Man Lymphocytes # (Manual) PT INR APTT D-Dimer ABG pH 7.222 L POC ABG pCO2 57.8 H POC ABG pO2 67.3 L ABG pO2 ABG HCO3 ABG O2 Saturation ABG Base Excess ABG Hemoglobin ABG Oxyhemoglobin 89.1 L ABG Potassium 5.1 H ABG Glucose 182 H Oxyhemoglobin Potassium 5.3 H Carbon Dioxide BUN 47 H Creatinine 2.0 H Glucose 154 H POC Glucose Calcium AST 93 H ALT 590 H Ammonia Total Creatine Kinase Troponin T C-Reactive Protein NT-Pro-B Natriuret Pep Albumin 3.6 L HDL Cholesterol Arterial Blood Glucose 182 H Urine WBC (Auto) Salicylates Acetaminophen 05/25/21 05/25/21 05/26/21 21:50 23:30 05:31 WBC Hgb MCV MCHC RDW Plt Count Lymph % (Auto) Lymph # (Auto) Seg Neutrophils % Seg Neuts % (Manual) Lymphocytes % (Manual) Seg Neutrophils # Seg Neutrophils # Man Lymphocytes # (Manual) PT INR APTT D-Dimer ABG pH 7.328 L POC ABG pCO2 POC ABG pO2 ABG pO2 63.3 L ABG HCO3 ABG O2 Saturation 92.1 L ABG Base Excess -2.4 L ABG Hemoglobin 11.3 L ABG Oxyhemoglobin ABG Potassium ABG Glucose Oxyhemoglobin 90.3 L Potassium Carbon Dioxide BUN Creatinine Glucose POC Glucose 131 H 123 H Calcium AST ALT Ammonia Total Creatine Kinase Troponin T C-Reactive Protein NT-Pro-B Natriuret Pep Albumin HDL Cholesterol Arterial Blood Glucose Urine WBC (Auto) Salicylates Acetaminophen 05/26/21 05/26/21 05/26/21 09:02 10:57 Unknown WBC 4.2 L Hgb 11.7 L MCV MCHC 31 L RDW 20.3 H Plt Count 132 L Lymph % (Auto) Lymph # (Auto) Seg Neutrophils % Seg Neuts % (Manual) Lymphocytes % (Manual) Seg Neutrophils # Seg Neutrophils # Man Lymphocytes # (Manual) PT INR APTT D-Dimer ABG pH 7.346 L POC ABG pCO2 POC ABG pO2 ABG pO2 60.5 L ABG HCO3 ABG O2 Saturation 90.7 L ABG Base Excess ABG Hemoglobin 13.1 L ABG Oxyhemoglobin ABG Potassium ABG Glucose Oxyhemoglobin 88.9 L Potassium Carbon Dioxide BUN Creatinine Glucose POC Glucose 127 H Calcium AST ALT Ammonia Total Creatine Kinase Troponin T C-Reactive Protein NT-Pro-B Natriuret Pep Albumin HDL Cholesterol Arterial Blood Glucose Urine WBC (Auto) Salicylates Acetaminophen 05/26/21 Unknown WBC Hgb MCV MCHC RDW Plt Count Lymph % (Auto) Lymph # (Auto) Seg Neutrophils % Seg Neuts % (Manual) Lymphocytes % (Manual) Seg Neutrophils # Seg Neutrophils # Man Lymphocytes # (Manual) PT INR APTT D-Dimer ABG pH POC ABG pCO2 POC ABG pO2 ABG pO2 ABG HCO3 ABG O2 Saturation ABG Base Excess ABG Hemoglobin ABG Oxyhemoglobin ABG Potassium ABG Glucose Oxyhemoglobin Potassium 5.2 H Carbon Dioxide BUN 47 H Creatinine 2.0 H Glucose 136 H POC Glucose Calcium AST 64 H ALT 448 H Ammonia Total Creatine Kinase Troponin T C-Reactive Protein NT-Pro-B Natriuret Pep Albumin 3.4 L HDL Cholesterol Arterial Blood Glucose Urine WBC (Auto) Salicylates Acetaminophen Chest x-ray: image reviewed (worsening interstitial edema pattern) Allied health notes reviewed: nursing
[2021-05-26 15:25] LABS: Creatinine,Urine 128.6 mg/dL (0.1-20.0)
--- NOTE | 2021-05-26 17:56 | Progress Note ---
Assessment and Plan Assessment and plan: This is a 41-year-old male with acute hypoxic respiratory failure, elevated D- dimer, acute kidney injury, hyperkalemia and transaminitis Neuro: Acute metabolic encephalopathy -CT head and C-spine negative for acute process -TSH WNL -Patient is sedated with propofol and fentanyl -Goal RASS 0 to -1 -Avoid delirium -Reorientation ICU -Maintain sleep-wake cycle Cardio: Hypotension, possible CHF, h/o HTN -Cardiology consulted, appreciate recommendations -S/p Levophed -Patient received echocardiogram which showed mild to moderate dilated right heart chambers, LVEF 55% -Cardiology recommends conservative cardiac management -Patient currently not hypertensive -No home antihypertensive regimen found on home med list -Blood pressure monitoring per protocol -As needed hydralazine Respiratory: Acute possibly on chronic hypoxemic and hypercapnic respiratory failure, h/o sleep apnea -CCM/pulmonary consulted, appreciate recommendations -Patient intubated on 05/23 for airway protection in the ED -Intubated with 7.50 ETT at 24 the lips -A.m. ABG noted -A.m. vent settings: Assist control tidal volume 400, rate 30, PEEP 12 on 100% FiO2 -See RT notes for titration -AM CXR noted -VAP bundle GI: Transaminitis, morbid obesity -NTR consult for tube feedings -Tube feedings Nepro at 45 mL's per hour -Free water flush 4 1 to 75 mL every 4 -24-hour +1012 -Presented with elevated LFTs -Trend LFTs : Acute renal failure, hyperkalemia -Nephrology consulted, appreciate recommendations -Garcia catheter for strict intake and output -Avoid nephrotoxic medications -Knee dose medications -Urine lites ordered -Renal calculated at 0.41% indicating prerenal -Patient admitted with volume overload (proBNP 90662) ID: CAP, COVID-19 PUI, leukopenia, coag negative Staphylococcus in blood culture 1/2 -CT C-spine showed right upper lobe pneumonia -Antibiotic therapy with Rocephin and azithromycin -Monitor fever and WBC curve -05/23 UC, tracheal aspirate no growth to date -05/23 blood culture with coag negative staph in 1 of 2 bottles Endo: NAD -Accu-Cheks every 6 while on tube feedings -No indication for SSI at this time -Avoid hypoglycemia -Target blood glucose while critically ill less than 180 Heme: Elevated D-dimer -VQ scan unable to be performed due to patient being intubated -CTA head unable to be performed due to renal function and size -Heparin subcu -SCDs to bilateral lower extremity while in bed -Echocardiogram shows no right heart strain -Trend CBC -Transfuse for hemoglobin less than 7 -Bilateral lower extremity Doppler ultrasound negative for DVT The high probability of a clinically significant, sudden or life threatening deterioration of the [renal/pulm] system(s) required my full and direct attention, intervention and personal management. The aggregate critical care time was [60] minutes. This time is in addition to time spent performing reported procedures but includes the following: [x] Data Review and interpretation [x] Patient assessment and monitoring of vital signs [x] Documentation [x] Medication orders and management Disposition Plan: icu Total Time Spent with Patient (Minutes): 60 History Interval history: This is a 41-year-old male who has HTN, REVA and morbid obesity who presents to the emergency department on 05/23 via EMS for severe respiratory distress. Upon EMS arrival patient was found to be altered and sedated from bed to floor and reports noncompliant with CPAP/BiPAP. Patient received bag valve mask ventilation via nasal trumpet with EMS on route. Work-up in the emergency department included a CXR which showed [place] [address], elevated troponin at 0.038, elevated D-dimer, acute kidney injury, hyperkalemia and transaminitis. Patient was intubated in the emergency department for for airway protection as he was reported to be obtunded and without a gag reflex. Patient did receive Narcan in the field by EMS however there was no reported affect. Hospital course to date: 05/24/2021: Patient intubated and sedated. VQ scan ordered secondary to elevated D-dimer. Cardiology consulted secondary to elevated troponin and elevated BNP. Echocardiogram ordered and pending. 05/25/2021: Patient still intubated. Responsive to commands. Hypotensive, norepinephrine increased to 15mcg. Unable to get V/Q scan due to body habitus. 05/26: Overnight patient experienced desaturation to the 80s and FiO2 was increased. This morning on ABG patient exhibited hypoxemia and FiO2 was unchanged. CCM later increased PEEP and decrease FiO2. Nephrology was consulted due to no recovery in renal function noted. Urine lites were ordered. Hyperkalemia treated medically. Hospitalist Physical - Constitutional Vitals: Temp Pulse Resp BP Pulse Ox 98.4 F 95 H 29 H 138/74 92 05/26/21 16:00 05/26/21 17:00 05/26/21 17:00 05/26/21 17:00 05/26/21 17:00 General appearance: Present: no acute distress, other (Intubated) - EENT Eyes: Present: PERRL, EOM intact ENT: dentition normal - Neck Neck: Present: normal ROM - Respiratory Respiratory effort: normal Respiratory: bilateral: diminished - Cardiovascular Rhythm: regular Heart Sounds: Present: S1 & S2. Absent: systolic murmur, diastolic murmur - Extremities Extremities: no ischemia, pulses intact, pulses symmetrical, No edema, normal temperature, normal color Peripheral Pulses: within normal limits - Abdominal General gastrointestinal: soft, non-tender, non-distended, normal bowel sounds - Integumentary Integumentary: Present: warm, dry - Psychiatric Psychiatric: agitated, other (sedated) - Neurologic Neurologic: other (track/focus, intact cough/gag reflex) - Allied Health Allied health notes reviewed: nursing, RT, social work HEART Score - HEART Score Troponin: Troponin T 0.038 ng/mL (0.00-0.029) H 05/23/21 15:09 Results - Labs CBC & Chem 7: 05/26/21 Unknown 05/26/21 Unknown Labs: Laboratory Last Values WBC 4.2 K/mm3 (4.5-11.0) L 05/26/21 Unknown RBC 4.03 M/mm3 (3.65-5.03) 05/26/21 Unknown Hgb 11.7 gm/dl (11.8-15.2) L 05/26/21 Unknown Hct 37.8 % (35.5-45.6) 05/26/21 Unknown MCV 94 fl (84-94) 05/26/21 Unknown MCH 29 pg (28-32) 05/26/21 Unknown MCHC 31 % (32-34) L 05/26/21 Unknown RDW 20.3 % (13.2-15.2) H 05/26/21 Unknown Plt Count 132 K/mm3 (140-440) L 05/26/21 Unknown Lymph % (Auto) 5.9 % (13.4-35.0) L 05/23/21 15:09 [place] % (Auto) 6.1 % (0.0-7.3) 05/23/21 15:09 Eos % (Auto) 0.2 % (0.0-4.3) 05/23/21 15:09 Baso % (Auto) 0.3 % (0.0-1.8) 05/23/21 15:09 Lymph # (Auto) 0.6 K/mm3 (1.2-5.4) L 05/23/21 15:09 [place] # (Auto) 0.6 K/mm3 (0.0-0.8) 05/23/21 15:09 Eos # (Auto) 0.0 K/mm3 (0.0-0.4) 05/23/21 15:09 Baso # (Auto) 0.0 K/mm3 (0.0-0.1) 05/23/21 15:09 Add Manual Diff Complete 05/24/21 04:55 Total Counted 100 05/24/21 04:55 Seg Neutrophils % [employer] 05/24/21 04:55 Seg Neuts % (Manual) 97.0 % (40.0-70.0) H 05/24/21 04:55 Lymphocytes % (Manual) 3.0 % (13.4-35.0) L 05/24/21 04:55 Nucleated RBC % Not Reportable 05/24/21 04:55 Seg Neutrophils # 8.2 K/mm3 (1.8-7.7) H 05/23/21 15:09 Seg Neutrophils # Man 8.4 K/mm3 (1.8-7.7) H 05/24/21 04:55 Band Neutrophils # 0.0 K/mm3 05/24/21 04:55 Lymphocytes # (Manual) 0.3 K/mm3 (1.2-5.4) L 05/24/21 04:55 Abs React Lymphs (Man) 0.0 K/mm3 05/24/21 04:55 Monocytes # (Manual) 0.0 K/mm3 (0.0-0.8) 05/24/21 04:55 Eosinophils # (Manual) 0.0 K/mm3 (0.0-0.4) 05/24/21 04:55 Basophils # (Manual) 0.0 K/mm3 (0.0-0.1) 05/24/21 04:55 Metamyelocytes # 0.0 K/mm3 05/24/21 04:55 Myelocytes # 0.0 K/mm3 05/24/21 04:55 Promyelocytes # 0.0 K/mm3 05/24/21 04:55 Blast Cells # 0.0 K/mm3 05/24/21 04:55 WBC Morphology Not Reportable 05/24/21 04:55 Hypersegmented Neuts Not Reportable 05/24/21 04:55 Hyposegmented Neuts Not Reportable 05/24/21 04:55 Hypogranular Neuts Not Reportable 05/24/21 04:55 Smudge Cells Not Reportable 05/24/21 04:55 Toxic Granulation Not Reportable 05/24/21 04:55 Toxic Vacuolation Not Reportable 05/24/21 04:55 Dohle Bodies Not Reportable 05/24/21 04:55 Pelger-Huet Anomaly Not Reportable 05/24/21 04:55 Cynthia Rods Not Reportable 05/24/21 04:55 Platelet Estimate Consistent w auto 05/24/21 04:55 Clumped Platelets Not Reportable 05/24/21 04:55 Plt Clumps, EDTA Not Reportable 05/24/21 04:55 Large Platelets Not Reportable 05/24/21 04:55 Giant Platelets Not Reportable 05/24/21 04:55 Platelet Satelliting Not Reportable 05/24/21 04:55 Plt Morphology Comment Not Reportable 05/24/21 04:55 RBC Morphology Not Reportable 05/24/21 04:55 Dimorphic RBCs Not Reportable 05/24/21 04:55 Polychromasia Not Reportable 05/24/21 04:55 Hypochromasia Not Reportable 05/24/21 04:55 Poikilocytosis Not Reportable 05/24/21 04:55 Anisocytosis 1+ 05/24/21 04:55 Microcytosis Not Reportable 05/24/21 04:55 Macrocytosis Not Reportable 05/24/21 04:55 Spherocytes Not Reportable 05/24/21 04:55 Pappenheimer Bodies Not Reportable 05/24/21 04:55 Sickle Cells Not Reportable 05/24/21 04:55 Target Cells Not Reportable 05/24/21 04:55 Tear Drop Cells Not Reportable 05/24/21 04:55 Ovalocytes Not Reportable 05/24/21 04:55 Helmet Cells Not Reportable 05/24/21 04:55 [place] Bodies Not Reportable 05/24/21 04:55 [place] Rings Not Reportable 05/24/21 04:55 Luis Cells Not Reportable 05/24/21 04:55 Bite Cells Not Reportable 05/24/21 04:55 Crenated Cell Not Reportable 05/24/21 04:55 Elliptocytes Not Reportable 05/24/21 04:55 Acanthocytes (Spur) Not Reportable 05/24/21 04:55 Rouleaux Not Reportable 05/24/21 04:55 Hemoglobin C Crystals Not Reportable 05/24/21 04:55 Schistocytes Not Reportable 05/24/21 04:55 Malaria parasites Not Reportable 05/24/21 04:55 Uli Bodies Not Reportable 05/24/21 04:55 Hem Pathologist Commnt No 05/24/21 04:55 PT 18.1 Sec. (12.2-14.9) H 05/23/21 15:09 INR 1.36 (0.87-1.13) H 05/23/21 15:09 APTT 23.1 Sec. (24.2-36.6) L 05/23/21 15:09 D-Dimer 4444.85 ng/mlDDU (0-234) H 05/23/21 15:09 ABG pH 7.346 pH Units (7.350-7.450) L 05/26/21 09:02 POC ABG pCO2 57.8 mmHg (32.0-48.0) H 05/25/21 04:20 ABG pCO2 44.9 mm Hg 05/26/21 09:02 POC ABG pO2 67.3 mmHg (83-108) L 05/25/21 04:20 ABG pO2 60.5 mm Hg (80.0-90.0) L 05/26/21 09:02 POC ABG HCO3 23.2 05/25/21 04:20 ABG HCO3 24.0 mmol/L (20.0-26.0) 05/26/21 09:02 ABG O2 Saturation 90.7 % (95.0-99.0) L 05/26/21 09:02 ABG O2 Content 16.4 (0.0-44) 05/26/21 09:02 POC ABG Base Excess -5.3 05/25/21 04:20 ABG Base Excess -1.8 mmol/L (-2.0-3.0) 05/26/21 09:02 ABG Hemoglobin 13.1 gm/dl (14.0-18.0) L 05/26/21 09:02 ABG Oxyhemoglobin 89.1 (94-98) L 05/25/21 04:20 ABG Carboxyhemoglobin 1.4 % (0.0-5.0) 05/26/21 09:02 ABG Methemoglobin 0.5 % (0.0-1.5) 05/26/21 09:02 ABG Sodium 140.6 mmol/L (136.0-145.0) 05/25/21 04:20 ABG Potassium 5.1 mmol/L (3.40-4.50) H 05/25/21 04:20 ABG Chloride 104.0 mmol/L (98-107) 05/25/21 04:20 ABG Glucose 182 mg/dL (65-95) H 05/25/21 04:20 Oxyhemoglobin 88.9 % (95.0-99.0) L 05/26/21 09:02 Carboxyhemoglobin 0.7 (0.5-1.5) 05/25/21 04:20 FiO2 100 % 05/26/21 09:02 FiO2 % 75.0 05/25/21 04:20 Sodium 142 mmol/L (137-145) 05/26/21 Unknown Potassium 5.2 mmol/L (3.6-5.0) H 05/26/21 Unknown Chloride 106.6 mmol/L (98-107) 05/26/21 Unknown Carbon Dioxide 23 mmol/L (22-30) 05/26/21 Unknown Anion Gap 18 mmol/L 05/26/21 Unknown BUN 47 mg/dL (9-20) H 05/26/21 Unknown Creatinine 2.0 mg/dL (0.8-1.3) H 05/26/21 Unknown Estimated GFR 44 ml/min 05/26/21 Unknown BUN/Creatinine Ratio 24 % 05/26/21 Unknown Glucose 136 mg/dL (75-100) H 05/26/21 Unknown POC Glucose 141 mg/dL (70-105) H 05/26/21 17:30 Lactic Acid 1.50 mmol/L (0.7-2.0) 05/23/21 15:09 Calcium 8.8 mg/dL (8.4-10.2) 05/26/21 Unknown Magnesium 2.30 mg/dL (1.7-2.3) 05/23/21 15:09 Total Bilirubin 0.60 mg/dL (0.1-1.2) 05/26/21 Unknown AST 64 units/L (5-40) H 05/26/21 Unknown ALT 448 units/L (7-56) H 05/26/21 Unknown Alkaline Phosphatase 58 units/L (35-129) 05/26/21 Unknown Ammonia 30.0 umol/L (25-60) 05/24/21 04:55 Total Creatine Kinase 48 units/L (55-170) L 05/23/21 15:09 Troponin T 0.038 ng/mL (0.00-0.029) H 05/23/21 15:09 C-Reactive Protein 10.00 mg/dL (0.00-1.30) H 05/23/21 19:10 NT-Pro-B Natriuret Pep 79538 pg/mL (0-450) H 05/23/21 15:09 Total Protein 7.0 g/dL (6.3-8.2) 05/26/21 Unknown Albumin 3.4 g/dL (3.9-5) L 05/26/21 Unknown Albumin/Globulin Ratio 0.9 % 05/26/21 Unknown Triglycerides 88 mg/dL (2-149) 05/23/21 15:09 Cholesterol 106 mg/dL (50-199) 05/23/21 15:09 LDL Cholesterol Direct 58 mg/dL (50-130) 05/23/21 15:09 HDL Cholesterol 29 mg/dL (40-59) L 05/23/21 15:09 Cholesterol/HDL Ratio 3.65 % 05/23/21 15:09 Procalcitonin 0.83 ng/mL (<0.15) 05/23/21 15:09 TSH 2.380 mlU/mL (0.270-4.200) 05/23/21 15:09 Arterial Blood Glucose 182 mg/dL (65-95) H 05/25/21 04:20 Urine Color [place] (Yellow) 05/23/21 Unknown Urine Turbidity Slightly-cloudy (Clear) 05/23/21 Unknown Urine pH 5.0 (5.0-7.0) 05/23/21 Unknown Ur Specific [place] 1.014 (1.003-1.030) 05/23/21 Unknown Urine Protein 30 mg/dl mg/dL (Negative) 05/23/21 Unknown Urine Glucose (UA) Neg mg/dL (Negative) 05/23/21 Unknown Urine Ketones Neg mg/dL (Negative) 05/23/21 Unknown Urine Blood Mod (Negative) 05/23/21 Unknown Urine Nitrite Neg (Negative) 05/23/21 Unknown Urine Bilirubin Neg (Negative) 05/23/21 Unknown Urine Urobilinogen 4.0 mg/dL (<2.0) 05/23/21 Unknown Ur Leukocyte Esterase Tr (Negative) 05/23/21 Unknown Urine WBC (Auto) 34.0 /HPF (0.0-6.0) H 05/23/21 Unknown Urine RBC (Auto) 20.0 /HPF (0.0-6.0) 05/23/21 Unknown U Epithel Cells (Auto) 2.0 /HPF (0-13.0) 05/23/21 Unknown Urine Bacteria (Auto) 1+ /HPF (Negative) 05/23/21 Unknown Urine Mucus Few /HPF 05/23/21 Unknown Urine Osmolality 612 Mosm/kg 05/26/21 Unknown Urine Creatinine 128.6 mg/dL (0.1-20.0) H 05/26/21 Unknown Urine Sodium 37 mmol/L 05/26/21 Unknown Urine Potassium 45.15 mmol/L 05/26/21 Unknown Urine Urea Nitrogen 989 05/26/21 Unknown Salicylates < 0.3 mg/dL (2.8-20.0) L 05/23/21 15:09 Urine Opiates Screen Negative 05/23/21 Unknown Urine Methadone Screen Negative 05/23/21 Unknown Acetaminophen 5.0 ug/mL (10.0-30.0) L 05/23/21 15:09 Ur Barbiturates Screen Negative 05/23/21 Unknown Ur Phencyclidine Scrn Negative 05/23/21 Unknown Ur Amphetamines Screen Negative 05/23/21 Unknown U Benzodiazepines Scrn Negative 05/23/21 Unknown Urine Cocaine Screen Negative 05/23/21 Unknown U Marijuana (THC) Screen Negative 05/23/21 Unknown Drugs of Abuse Note Disclamer 05/23/21 Unknown Plasma/Serum Alcohol < 0.01 % (0-0.07) 05/23/21 15:09 Coronavirus (PCR) Negative (Negative) 05/23/21 Unknown Blood Type O POSITIVE 05/23/21 15:01 Antibody Screen Negative 05/23/21 15:01 Microbiology: Microbiology 05/23/21 15:09 Peripheral/Venous Blood Culture - Preliminary NO GROWTH AFTER 72 HOURS 05/23/21 15:09 Peripheral/Venous Blood Culture - Preliminary Coag Negative Staphylococcus Garcia/IV: Voiding Method Indwelling Catheter Active Medications - Current Medications Current Medications: Generic Name Dose Route Start Last Admin Trade Name Freq PRN Reason Stop Dose Admin Acetaminophen 650 mg 05/23/21 20:42 Acetaminophen 325 Mg Tab PO Q4H PRN Pain MILD(1-3)/Fever >100.5/CASTORENA Albuterol 2.5 mg 05/23/21 21:11 Albuterol 2.5 Mg/3 Ml Nebu IH Q4HRT PRN Shortness Of Breath Albuterol/Ipratropium 1 ampul 05/24/21 08:00 05/26/21 15:17 Ipratropium/Albuterol Sulfate 3 Ml Ampul.Neb IH 1 ampul QIDRT ROSEMARIE Administration Lipase/Protease/Amylase 1 each 05/24/21 10:14 Lipase 10,500/Protease 25,000/Amylase 43,750 (Units) Dr Ronaldo ARAYA PRN PRN For Clogged Feeding Tube Ascorbic Acid 500 mg 05/23/21 22:00 05/26/21 09:06 Ascorbic Acid 500 Mg Tab PO 500 mg BID ROSEMARIE Administration Famotidine 20 mg 05/23/21 22:00 05/26/21 09:05 Famotidine 20 Mg/2 Ml Inj IV 20 mg BID ROSEMARIE Administration Fentanyl 50 mcg 05/23/21 12:34 05/23/21 18:50 Fentanyl 100 Mcg/2 Ml Inj IV 50 mcg Q10MIN PRN Administration ANALGESIA Heparin Sodium (Porcine) 5,000 unit 05/23/21 20:00 05/26/21 14:28 Heparin 5,000 Unit/1 Ml Vial SUB-Q 5,000 unit Q8HR ROSEMARIE Administration Hydrophilic Ointment 1 applic 05/23/21 12:34 Lip Therapy Vaseline TP Q2HR PRN Dry Lips Fentanyl Citrate 2,000 mcg in 100 mls @ 8.528 mls/hr 05/23/21 13:00 05/26/21 14:28 Fentanyl Drip Premix IV 2 mcg/kg/hr TITR ROSEMARIE 17.055 mls/hr Administration Protocol 1 MCG/KG/HR Azithromycin 500 mg in 250 mls @ 250 mls/hr 05/24/21 08:00 05/26/21 09:05 Zithromax/Ns IV 05/27/21 07:59 250 mls/hr Q24H ROSEMARIE Administration Cefepime HCl 2 gm in 100 mls @ 200 mls/hr 05/23/21 22:00 05/26/21 09:04 Cefepime/Ns 2 Gm/100 Ml IV 05/28/21 10:29 200 mls/hr Q12H ROSEMARIE Administration Protocol NORepinephrine/NS 8 MG-250 ML 8 mg in 250 mls @ 3.75 mls/hr 05/24/21 20:00 05/25/21 15:20 Norepinephrine/Ns 8 Mg-250 Ml (Double Conc) IV 0 mcg/min TITRATE ROSEMARIE 0 mls/hr Titration Protocol 2 MCG/MIN Propofol 1,000 mg in 100 mls @ 5.117 mls/hr 05/25/21 19:00 05/26/21 15:30 Diprivan 10 Mg/Ml IV 15 mcg/kg/min TITR ROSEMARIE 15.35 mls/hr Titration Protocol 5 MCG/KG/MIN Methylprednisolone Sodium Succinate 125 mg 05/23/21 22:00 05/26/21 14:28 Methylprednisolone Sod Succinate 125 Mg/2 Ml Inj IV 125 mg Q8HR ROSEMARIE Administration Multi-Ingred Cream/Lotion/Oil/Oint 1 applic 05/23/21 12:34 Mineral Oil/Petrolatum, White Ophth Oint 3.5 Gm OU Q4HR PRN Dry Eye(s) Ondansetron HCl 4 mg 05/23/21 20:42 Ondansetron 4 Mg/2 Ml Inj IV Q8H PRN Nausea And Vomiting Senna/Docusate Sodium 1 tab 05/23/21 22:00 05/26/21 09:06 Sennosides/Docusate Sodium 8.6/50 Mg Tab FEEDTUBE 1 tab BID ROSEMARIE Administration Simple Syrup 15 ml 05/24/21 10:14 Simple Syrup 15 Ml FEEDTUBE PRN PRN Hypoglycemia Simple Syrup 30 ml 05/24/21 10:14 Simple Syrup 15 Ml FEEDTUBE PRN PRN Hypoglycemia Sodium Bicarbonate 325 mg 05/24/21 10:14 Sodium Bicarbonate 325 Mg Tab FEEDTUBE PRN PRN For Clogged Feeding Tube Sodium Chloride 10 ml 05/23/21 22:00 05/26/21 09:06 Sodium Chloride 0.9% 10 Ml Flush Syringe IV 10 ml BID ROSEMARIE Administration Sodium Chloride 10 ml 05/23/21 20:42 Sodium Chloride 0.9% 10 Ml Flush Syringe IV PRN PRN LINE FLUSH Zinc Sulfate 220 mg 05/23/21 22:00 05/26/21 09:06 Zinc Sulfate 220 Mg Cap PO 220 mg BID ROSEMARIE Administration Nutrition/Malnutrition Assess - Dietary Evaluation Nutrition/Malnutrition Findings: Nutrition Notes Start: 05/24/21 09:53 Freq: Status: Active Protocol: Document 05/25/21 12:00 GB (Rec: 05/25/21 12:14 GB [id number]) Nutrition Notes Initial or Follow up Reassessment Current Diagnosis Acute Kidney Injury, Hypertension,Respiratory Failure Other Pertinent Diagnosis SIRS, encephalopathy, pneu, transaminitis Current Diet NPO, Tube Feeding Nepro @ 45m/ hr Labs/Tests K 5.5 - increasing trend x2days, Ca 8.3 BUN 39 Cr 2.2 AST 571, ALT 951 (both showing improvement) BG 155 Pertinent Medications VitC, Azithromycin, Fentanyl Citrate, Norepenephrin/NS 8 Mg 250, Vancomycin HCl/NaCl, Zn Sulfate Height 5 ft 8 in Weight 170.551 kg [place] Body Weight (kg) 70.00 BMI 57.2 Weight change and time frame Admit weight. No reports of change upon admission Weight Status Morbidly Obese Subjective/Other Information Pt continues Intubated/sedated TF started MD note Bilateral pumponary opacities have improved. No pneumothorax BM: none recorded at time of assessment Skin: BLE edema 1+ non-pitting Percent of energy/protein needs met: TF at goal to meet 75% or greater of minimal estimated energy needs Burn Absent Trauma Absent GI Symptoms Other Difficulty In Swallowing Food Allergy No Skin Integrity/Comment not WNL Current % PO Other Minimum of two criteria No #1 Nutrition Diagnosis Swallowing difficulty Comments: 05/25: intubation/sedation continues. TF started Etiology ARF As Evidenced by Signs and Symptoms pt on vent and unable to consume PO Diagnosis Progress(for reassessment Continues documentation) Is patient on ventilator? Yes Is Patient Ambulatory and/or Out of Bed No REE-([facility]-confined to bed) 3092.088 Kcal/Kg value to use for calculation 11 Approximate Energy Requirements Using 1876 kcal/Kg Calculation Used for Recommendations Kcal/kg Additional Notes Protein: 0.6g/kg or greater @ 170kg Fluid: 1 ml/kcal or per MD Nutrition Intervention Change Diet Order: Continue NPO, Tube feeding Nutrition Support: Nepro 1.8 at 45 ml/hr Flush 175 ml q4h or per MD Total free water: TF@goal + flush = 1835ml Kcal 1,944 Protein (gm) 87 Fluid (mL) 785 Add Supplement/Snack (indicate name/kcal n/a /protein ) Goal #1 Meet at least 75% or greater of EEN via TF 05/25: met, continues Goal #2 TF (Nepro) at goal rate (45ml/ hr) by f/u 05/25: TF started Follow-Up By: 05/28/21 Additional Comments F/u: TF tolerance, renal labs, vent status
--- NOTE | 2021-05-26 18:48 | Electrocardiograph Report ---
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
[2021-05-27] MEDS: fentaNYL DRIP Premix 2,000 MCG/100 ML BAG IV SCH ×6 (02:22→23:44)
--- NOTE | 2021-05-27 04:36 | XRay Report ---
CHEST 1 VIEW INDICATION: follow up respiratory failure. COMPARISON: One day prior. FINDINGS: Support devices: The distal end of the left PICC is flipped superiorly and is likely within the right brachiocephalic vein. Heart: Stable. Cardiomediastinal silhouette remains enlarged. Lungs/Pleura: Pulmonary opacities are slightly worsened. Pleural effusions are present. No pneumothor ax. IMPRESSION: 1. Worsening bilateral pulmonary opacities with small effusions. Signer Name: Brennan Sanders MD Signed: 05/27/2021 4:31 AM Workstation Name: [id number]
[2021-05-27] MEDS: HEPARIN 5,000 UNIT/1 ML VIAL SUB-Q SCH ×3 (06:05→21:07)
[2021-05-27] MEDS: methylPREDNISolone Sod Succinate 125 MG/2 ML INJ IV SCH (06:06)
[2021-05-27 08:46] LABS: Hematocrit 37.5 % (35.5-45.6); Mean Corpuscular HGB Conc 32 % (32-34); Mean Corpuscular Volume 94 fl (84-94); Platelet Count 126 K/mm3 (140-440); Red Blood Count 3.99 M/mm3 (3.65-5.03)
[2021-05-27 08:50] LABS: Red Cell Distribution Width 21.2 % (13.2-15.2)
[2021-05-27 09:02] LABS: Calcium 8.3 mg/dL (8.4-10.2)
[2021-05-27] MEDS: IPRATROPIUM/ALBUTEROL SULFATE 3 ML AMPUL.NEB IH SCH ×4 (09:02→20:33)
[2021-05-27] MEDS: FAMOTIDINE 20 MG TAB FEEDTUBE SCH ×2 (10:30→21:07)
[2021-05-27] MEDS: SENNOSIDES/DOCUSATE SODIUM 8.6/50 MG TAB FEEDTUBE SCH ×2 (10:30→21:06)
[2021-05-27] MEDS: CEFEPIME/NS 2 GM/100 ML 2 GM/100 ML BAG IV SCH ×2 (10:30→21:08)
--- NOTE | 2021-05-27 10:34 | Progress Note ---
Assessment and Plan Acute respiratory failure intubated on the vent an echo shows mild to moderate dilated right heart chambers, mild to moderate TR, with moderate pulmonary HTN. RVSP 53 mmHG. Normal LVEF 55%. Renal failure Morbidly obese Underlying sleep apnea pt not able to undergo pulmonary embolism evaluation due to his large size. Conservative cardiac management. Subjective Date of service: 05/27/21 Principal diagnosis: Acute hypoxemic and hypercapnic resp failure; PUI COVID-19; Pneumonia; FERMIN Interval history: Pt remains intubated, unresponsive, on mechanical ventilation. Objective Vital Signs Temp Pulse Pulse Resp Resp BP Pulse Ox 05/27/21 10:00 77 17 115/58 91 05/27/21 09:45 85 21 118/61 91 05/27/21 09:30 90 26 H 117/60 92 05/27/21 09:15 85 24 112/61 92 05/27/21 09:02 67 25 H 05/27/21 09:00 72 19 103/57 90 05/27/21 08:45 77 20 114/58 91 05/27/21 08:30 96 H 21 120/69 90 05/27/21 08:15 83 19 106/57 91 05/27/21 08:00 94 H 14 117/67 91 05/27/21 07:45 87 21 114/60 92 05/27/21 07:33 98.1 F 05/27/21 07:30 99 H 14 119/73 91 05/27/21 07:15 70 23 105/56 92 05/27/21 07:00 79 22 103/54 92 05/27/21 06:45 72 18 106/55 92 05/27/21 06:30 71 25 H 105/56 91 05/27/21 06:15 70 25 H 110/59 91 05/27/21 06:00 70 26 H 110/57 91 05/27/21 05:45 82 22 105/57 91 05/27/21 05:30 75 15 108/58 91 05/27/21 05:15 76 21 106/58 91 05/27/21 05:00 83 22 109/61 91 05/27/21 04:45 84 18 105/54 91 05/27/21 04:30 91 H 25 H 115/64 90 05/27/21 04:21 87 109/62 91 05/27/21 04:15 92 H 25 H 109/62 91 05/27/21 04:00 85 26 H 100/64 92 05/27/21 03:48 98.4 F 05/27/21 03:45 82 25 H 103/64 92 05/27/21 03:30 84 25 H 104/58 91 05/27/21 03:15 84 25 H 112/61 91 05/27/21 03:00 95 H 25 H 108/61 90 05/27/21 02:45 101 H 25 H 108/67 90 05/27/21 02:30 102 H 25 H 121/70 89 05/27/21 02:15 144 H 12 119/66 86 05/27/21 02:00 81 8 L 119/66 91 05/27/21 01:45 85 12 121/65 92 05/27/21 01:30 93 H 11 L 113/58 90 05/27/21 01:15 92 H 11 L 112/53 90 05/27/21 01:00 90 7 L 111/60 90 05/27/21 00:59 89 111/60 90 05/27/21 00:45 91 H 11 L 116/62 91 05/27/21 00:30 98 H 11 L 110/57 91 05/27/21 00:15 96 H 7 L 122/66 92 05/27/21 00:07 94 H 9 L 122/63 92 05/27/21 00:00 98.6 F 118 H 25 H 122/63 93 05/26/21 23:45 98 H 15 124/63 92 05/26/21 23:30 102 H 7 L 117/66 91 05/26/21 23:15 99 H 13 124/68 91 05/26/21 23:00 95 H 11 L 120/66 91 05/26/21 22:45 109 H 14 124/65 91 05/26/21 22:30 113 H 22 131/73 93 05/26/21 22:15 111 H 26 H 119/65 93 05/26/21 22:00 90 17 117/64 96 05/26/21 21:45 114 H 9 L 111/61 94 05/26/21 21:38 92 H 25 H 05/26/21 21:30 89 10 L 113/58 93 05/26/21 21:15 96 H 16 121/69 94 05/26/21 21:00 96 H 20 117/67 93 05/26/21 20:45 86 21 121/65 93 05/26/21 20:33 90 119/63 93 05/26/21 20:30 95 H 12 119/63 93 05/26/21 20:15 106 H 30 H 134/87 92 05/26/21 20:00 99.0 F 101 H 30 H 124/69 93 05/26/21 19:45 115 H 22 120/66 94 05/26/21 19:30 81 15 111/58 94 05/26/21 19:15 92 H 26 H 120/67 94 05/26/21 19:00 86 18 126/72 93 05/26/21 18:15 97 H 18 121/72 92 05/26/21 18:00 87 13 121/72 93 05/26/21 17:51 94 H 20 138/74 94 05/26/21 17:41 138/74 90 05/26/21 17:31 107 H 30 H 138/74 92 05/26/21 17:21 77 30 H 138/74 92 05/26/21 17:11 90 30 H 138/74 92 05/26/21 17:00 95 H 29 H 138/74 92 05/26/21 16:51 87 30 H 125/69 93 05/26/21 16:41 83 30 H 125/69 93 05/26/21 16:31 87 30 H 92 05/26/21 16:20 76 30 H 125/69 93 05/26/21 16:10 79 30 H 125/69 93 05/26/21 16:00 98.4 F 72 24 125/69 93 05/26/21 15:51 68 30 H 132/70 93 05/26/21 15:41 68 30 H 132/70 93 05/26/21 15:31 65 30 H 132/70 93 05/26/21 15:21 72 30 H 132/70 93 05/26/21 15:17 62 66 30 H 132/70 93 05/26/21 15:11 66 30 H 132/70 93 05/26/21 15:00 66 30 H 132/70 92 05/26/21 14:51 72 27 H 133/70 94 05/26/21 14:41 74 30 H 133/70 94 05/26/21 14:31 94 H 30 H 133/70 94 05/26/21 14:21 73 30 H 133/70 94 05/26/21 14:11 59 L 26 H 133/70 96 05/26/21 14:00 59 L 30 H 133/70 96 05/26/21 13:51 57 L 30 H 128/66 96 05/26/21 13:41 58 L 30 H 128/66 97 05/26/21 13:31 58 L 30 H 128/66 96 05/26/21 13:21 56 L 30 H 128/66 96 05/26/21 13:11 56 L 30 H 128/66 97 05/26/21 13:00 57 L 30 H 128/66 96 05/26/21 12:51 56 L 30 H 122/63 96 05/26/21 12:41 57 L 30 H 122/63 96 05/26/21 12:31 61 30 H 122/63 95 05/26/21 12:21 60 30 H 122/63 95 05/26/21 12:10 60 30 H 129/68 96 05/26/21 12:00 98.6 F 65 30 H 122/63 96 05/26/21 11:51 61 30 H 129/68 96 05/26/21 11:41 59 L 30 H 129/68 96 05/26/21 11:31 62 30 H 129/68 95 05/26/21 11:21 60 20 129/68 96 05/26/21 11:19 60 129/68 96 05/26/21 11:10 64 30 H 129/68 96 05/26/21 11:00 70 29 H 129/68 95 05/26/21 10:50 62 30 H 126/75 96 05/26/21 10:41 61 23 126/75 96 - Physical Examination General: Other (On the vent; obese) Cardiac: Positive: Reg Rate and Rhythm - Labs and Meds CBC 05/27/21 Range/Units 08:00 WBC 4.2 L (4.5-11.0) K/mm3 RBC 3.99 (3.65-5.03) M/mm3 Hgb 12.0 (11.8-15.2) gm/dl Hct 37.5 (35.5-45.6) % Plt Count 126 L (140-440) K/mm3 Comprehensive Metabolic Panel 05/27/21 Range/Units 08:00 Sodium 138 (137-145) mmol/L Potassium 4.6 (3.6-5.0) mmol/L Chloride 105.2 (98-107) mmol/L Carbon Dioxide 23 (22-30) mmol/L BUN 52 H (9-20) mg/dL Creatinine 1.8 H (0.8-1.3) mg/dL Glucose 171 H (75-100) mg/dL Calcium 8.3 L (8.4-10.2) mg/dL - Allied health notes Allied health notes reviewed: nursing
[2021-05-27 11:23] LABS: ABG Base Excess -1.1 mmol/L (-2.0-3.0); ABG Methemoglobin 0.7 % (0.0-1.5); ABG Oxygen Saturation 72.8 % (95.0-99.0); ABG PH 7.3 pH Units (7.350-7.450); ABG PO2 42.1 mm Hg (80.0-90.0)
--- NOTE | 2021-05-27 12:39 | Progress Note ---
Assessment and Plan Assessment: Acute Renal Failure likely on CKD Hypertension Acute Respiratory Failure Pneumonia, community-acquired Morbid obesity Obstructive sleep apnea Edema Plan: Renal labs reviewed. Serum creatinine trend down to 1.8 today, yesterday's was 2.0, non-oliguric May have unerlying CKD given history of Obesity and Hypertension. 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 Santos Subjective Date of service: 05/27/21 Principal diagnosis: Acute hypoxemic and hypercapnic resp failure; PUI COVID-19; Pneumonia; FERMIN Interval history: Patient intubated and sedated. Objective - Vital Signs Vital signs: Vital Signs - 12hr 05/27/21 05/27/21 05/27/21 00:45 00:59 01:00 Temperature Pulse Rate 91 H 89 90 Pulse Rate [ Anterior Bilateral Throughout] Respiratory 11 L 7 L Rate Respiratory Rate [Anterior Bilateral Throughout] Blood Pressure 116/62 111/60 111/60 O2 Sat by Pulse 91 90 90 Oximetry 05/27/21 05/27/21 05/27/21 01:15 01:30 01:45 Temperature Pulse Rate 92 H 93 H 85 Pulse Rate [ Anterior Bilateral Throughout] Respiratory 11 L 11 L 12 Rate Respiratory Rate [Anterior Bilateral Throughout] Blood Pressure 112/53 113/58 121/65 O2 Sat by Pulse 90 90 92 Oximetry 05/27/21 05/27/21 05/27/21 02:00 02:15 02:30 Temperature Pulse Rate 81 144 H 102 H Pulse Rate [ Anterior Bilateral Throughout] Respiratory 8 L 12 25 H Rate Respiratory Rate [Anterior Bilateral Throughout] Blood Pressure 119/66 119/66 121/70 O2 Sat by Pulse 91 86 89 Oximetry 05/27/21 05/27/21 05/27/21 02:45 03:00 03:15 Temperature Pulse Rate 101 H 95 H 84 Pulse Rate [ Anterior Bilateral Throughout] Respiratory 25 H 25 H 25 H Rate Respiratory Rate [Anterior Bilateral Throughout] Blood Pressure 108/67 108/61 112/61 O2 Sat by Pulse 90 90 91 Oximetry 05/27/21 05/27/21 05/27/21 03:30 03:45 03:48 Temperature 98.4 F Pulse Rate 84 82 Pulse Rate [ Anterior Bilateral Throughout] Respiratory 25 H 25 H Rate Respiratory Rate [Anterior Bilateral Throughout] Blood Pressure 104/58 103/64 O2 Sat by Pulse 91 92 Oximetry 05/27/21 05/27/21 05/27/21 04:00 04:15 04:21 Temperature Pulse Rate 85 92 H 87 Pulse Rate [ Anterior Bilateral Throughout] Respiratory 26 H 25 H Rate Respiratory Rate [Anterior Bilateral Throughout] Blood Pressure 100/64 109/62 109/62 O2 Sat by Pulse 92 91 91 Oximetry 05/27/21 05/27/21 05/27/21 04:30 04:45 05:00 Temperature Pulse Rate 91 H 84 83 Pulse Rate [ Anterior Bilateral Throughout] Respiratory 25 H 18 22 Rate Respiratory Rate [Anterior Bilateral Throughout] Blood Pressure 115/64 105/54 109/61 O2 Sat by Pulse 90 91 91 Oximetry 05/27/21 05/27/21 05/27/21 05:15 05:30 05:45 Temperature Pulse Rate 76 75 82 Pulse Rate [ Anterior Bilateral Throughout] Respiratory 21 15 22 Rate Respiratory Rate [Anterior Bilateral Throughout] Blood Pressure 106/58 108/58 105/57 O2 Sat by Pulse 91 91 91 Oximetry 05/27/21 05/27/21 05/27/21 06:00 06:15 06:30 Temperature Pulse Rate 70 70 71 Pulse Rate [ Anterior Bilateral Throughout] Respiratory 26 H 25 H 25 H Rate Respiratory Rate [Anterior Bilateral Throughout] Blood Pressure 110/57 110/59 105/56 O2 Sat by Pulse 91 91 91 Oximetry 05/27/21 05/27/21 05/27/21 06:45 07:00 07:15 Temperature Pulse Rate 72 79 70 Pulse Rate [ Anterior Bilateral Throughout] Respiratory 18 22 23 Rate Respiratory Rate [Anterior Bilateral Throughout] Blood Pressure 106/55 103/54 105/56 O2 Sat by Pulse 92 92 92 Oximetry 05/27/21 05/27/21 05/27/21 07:30 07:33 07:45 Temperature 98.1 F Pulse Rate 99 H 87 Pulse Rate [ Anterior Bilateral Throughout] Respiratory 14 21 Rate Respiratory Rate [Anterior Bilateral Throughout] Blood Pressure 119/73 114/60 O2 Sat by Pulse 91 92 Oximetry 05/27/21 05/27/21 05/27/21 08:00 08:15 08:30 Temperature Pulse Rate 94 H 83 96 H Pulse Rate [ Anterior Bilateral Throughout] Respiratory 14 19 21 Rate Respiratory Rate [Anterior Bilateral Throughout] Blood Pressure 117/67 106/57 120/69 O2 Sat by Pulse 91 91 90 Oximetry 05/27/21 05/27/21 05/27/21 08:45 09:00 09:02 Temperature Pulse Rate 77 72 Pulse Rate [ 67 Anterior Bilateral Throughout] Respiratory 20 19 Rate Respiratory 25 H Rate [Anterior Bilateral Throughout] Blood Pressure 114/58 103/57 O2 Sat by Pulse 91 90 Oximetry 05/27/21 05/27/21 05/27/21 09:15 09:30 09:45 Temperature Pulse Rate 85 90 85 Pulse Rate [ Anterior Bilateral Throughout] Respiratory 24 26 H 21 Rate Respiratory Rate [Anterior Bilateral Throughout] Blood Pressure 112/61 117/60 118/61 O2 Sat by Pulse 92 92 91 Oximetry 05/27/21 10:00 Temperature Pulse Rate 77 Pulse Rate [ Anterior Bilateral Throughout] Respiratory 17 Rate Respiratory Rate [Anterior Bilateral Throughout] Blood Pressure 115/58 O2 Sat by Pulse 91 Oximetry - General Appearance General appearance: obese, sedated on ventilator, intubated EENT: ATNC Neck: no JVD Respiratory: Present: Decreased Breath Sounds, Other (intubated) Cardiology: S1S2 Gastrointestinal: normoactive bowel sounds, obese Integumentary: other (dry skin, callus) Neurologic: other (sedated) - Lab 05/27/21 08:00 05/27/21 08:00 Most recent lab results ABG pH 7.300 pH Units (7.350-7.450) L 05/27/21 10:15 ABG pCO2 54.0 mm Hg 05/27/21 10:15 ABG pO2 42.1 mm Hg (80.0-90.0) L 05/27/21 10:15 ABG HCO3 26.0 mmol/L (20.0-26.0) 05/27/21 10:15 ABG O2 Saturation 72.8 % (95.0-99.0) L 05/27/21 10:15 Calcium 8.3 mg/dL (8.4-10.2) L 05/27/21 08:00 Phosphorus 2.90 mg/dL (2.5-4.5) 05/27/21 05:30 Magnesium 2.30 mg/dL (1.7-2.3) 05/23/21 15:09 Urine Creatinine 128.6 mg/dL (0.1-20.0) H 05/26/21 Unknown Urine Sodium 37 mmol/L 05/26/21 Unknown Medications & Allergies - Medications Allergies/Adverse Reactions: Allergies No Known Allergies Allergy (Unverified 05/25/21 12:48) Home Medications: Home Medications Medication Instructions Recorded Confirmed Last Taken Type Amoxicillin [Amoxicillin TAB] 875 mg PO BID #20 tablet 11/12/14 Unknown Rx Active Medications: Generic Name Dose Route Start Last Admin Trade Name Freq PRN Reason Stop Dose Admin Acetaminophen 650 mg 05/23/21 20:42 Acetaminophen 325 Mg Tab PO Q4H PRN Pain MILD(1-3)/Fever >100.5/CASTORENA Albuterol 2.5 mg 05/23/21 21:11 Albuterol 2.5 Mg/3 Ml Nebu IH Q4HRT PRN Shortness Of Breath Albuterol/Ipratropium 1 ampul 05/24/21 08:00 05/27/21 09:02 Ipratropium/Albuterol Sulfate 3 Ml Ampul.Neb IH 1 ampul QIDRT ROSEMARIE Administration Lipase/Protease/Amylase 1 each 05/24/21 10:14 Lipase 10,500/Protease 25,000/Amylase 43,750 (Units) Dr Cap FEEDTUBE PRN PRN For Clogged Feeding Tube Famotidine 20 mg 05/27/21 10:00 05/27/21 10:30 Famotidine 20 Mg Tab FEEDTUBE 20 mg BID ROSEMARIE Administration Fentanyl 50 mcg 05/23/21 12:34 05/23/21 18:50 Fentanyl 100 Mcg/2 Ml Inj IV 50 mcg Q10MIN PRN Administration ANALGESIA Heparin Sodium (Porcine) 5,000 unit 05/23/21 20:00 05/27/21 06:05 Heparin 5,000 Unit/1 Ml Vial SUB-Q 5,000 unit Q8HR ROSEMARIE Administration Hydrophilic Ointment 1 applic 05/23/21 12:34 Lip Therapy Vaseline TP Q2HR PRN Dry Lips Fentanyl Citrate 2,000 mcg in 100 mls @ 8.528 mls/hr 05/23/21 13:00 05/27/21 07:51 Fentanyl Drip Premix IV 2 mcg/kg/hr TITR ROSEMARIE 17.055 mls/hr Administration Protocol 1 MCG/KG/HR Cefepime HCl 2 gm in 100 mls @ 200 mls/hr 05/23/21 22:00 05/27/21 10:30 Cefepime/Ns 2 Gm/100 Ml IV 05/28/21 10:29 200 mls/hr Q12H ROSEMARIE Administration Protocol NORepinephrine/NS 8 MG-250 ML 8 mg in 250 mls @ 3.75 mls/hr 05/24/21 20:00 05/25/21 15:20 Norepinephrine/Ns 8 Mg-250 Ml (Double Conc) IV 0 mcg/min TITRATE ROSEMARIE 0 mls/hr Titration Protocol 2 MCG/MIN Propofol 1,000 mg in 100 mls @ 5.117 mls/hr 05/25/21 19:00 05/27/21 07:06 Diprivan 10 Mg/Ml IV 15 mcg/kg/min TITR ROSEMARIE 15.35 mls/hr Administration Protocol 5 MCG/KG/MIN Methylprednisolone Sodium Succinate 125 mg 05/23/21 22:00 05/27/21 06:06 Methylprednisolone Sod Succinate 125 Mg/2 Ml Inj IV 125 mg Q8HR ROSEMARIE Administration Multi-Ingred Cream/Lotion/Oil/Oint 1 applic 05/23/21 12:34 Mineral Oil/Petrolatum, White Ophth Oint 3.5 Gm OU Q4HR PRN Dry Eye(s) Ondansetron HCl 4 mg 05/23/21 20:42 Ondansetron 4 Mg/2 Ml Inj IV Q8H PRN Nausea And Vomiting Senna/Docusate Sodium 1 tab 05/23/21 22:00 05/27/21 10:30 Sennosides/Docusate Sodium 8.6/50 Mg Tab FEEDTUBE 1 tab BID ROSEMARIE Administration Simple Syrup 15 ml 05/24/21 10:14 Simple Syrup 15 Ml FEEDTUBE PRN PRN Hypoglycemia Simple Syrup 30 ml 05/24/21 10:14 Simple Syrup 15 Ml FEEDTUBE PRN PRN Hypoglycemia Sodium Bicarbonate 325 mg 05/24/21 10:14 Sodium Bicarbonate 325 Mg Tab FEEDTUBE PRN PRN For Clogged Feeding Tube Sodium Chloride 10 ml 05/23/21 22:00 05/27/21 10:33 Sodium Chloride 0.9% 10 Ml Flush Syringe IV 10 ml BID ROSEMARIE Administration Sodium Chloride 10 ml 10/30/21 20:42 Sodium Chloride 0.9% 10 Ml Flush Syringe IV PRN PRN LINE FLUSH
--- NOTE | 2021-05-27 13:08 | Progress Note ---
Assessment and Plan Acute possibly on chronic hypoxemic and hypercapnic respiratory failure Pneumonia, community-acquired Acute toxic metabolic encephalopathy Person under investigation for COVID-19 Morbid obesity Obstructive sleep apnea History of hypertension Acute kidney injury Hyperkalemia Elevated serum transaminases Possible shock liver Hyperammonemia Non-ST elevation myocardial infarction - lasiux 40 mg IV X 1 (conservative volume management going forwards) - get bilateral chest US scans +/- thoracentesis - reduced FiO2 to 80% and keep peep at 14 cm H2O - repeat ABG at 9 pm tonight and address - vasopressors for target MAP > 65 mmHg - nephrology input appreciated - continue care as below otherwise; - continue Daily SAT and SBT assessment as tolerated - continue to wean supplemental oxygen for target O2 sat's > 90% acutely - VAP bundle addressed - continue lung protective strategies - continue bronchodilators with pulmonary hygiene per RT - wean per pulmonary driven protocols otherwise - avoid nephrotoxins, renally dose all medications - continue accuchecks with glycemic control per SSI (While critically ill target blood glucose of 140-180 mg/dL; avoid hypoglycemia) - sedation prn for target RASS 0 to -1 - continue to avoid benzodiazepine's, reduce the possibility of delirium - AB's per ID rec's - prn analgesia per CPOT score - Maintenance of sleep-wake cycle, avoid delirium - continue enteral nutritional support at goal rate as tolerated - G.I. & VTE prophylaxis - PT/OT/ROM exercises - continue mobility protocols for pressure ulcer prophylaxis - Monitor hemodynamics closely - continue other care per attending / other consultants - discharge planning ongoing concurrently COVID SPECIFIC INTERVENTIONS - COVID-19 test result pending .... Re-evaluate in am & prn CONDITION: CRITICAL PROGNOSIS: GUARDED CODE STATUS: FULL CODE The high probability of a clinically significant, sudden or life-threatening deterioration of the [respiratory, cardiovascular, renal & neurologic] system(s) required my full and direct attention, intervention and personal management. The aggregate critical care time was [36] minutes without overlap. Time includes spent on; [x] Data Review and interpretation [x] Patient assessment and monitoring of vital signs [x] Documentation [x] Medication orders and management Subjective Date of service: 05/27/21 Principal diagnosis: Acute hypoxemic and hypercapnic resp failure; PUI COVID-19; Pneumonia; FERMIN Interval history: Patient is seen today for: Acute hypoxemic and hypercapnic respiratory failure; PUI NCOVID-19; Pneumonia; CAP; FERMIN; REVA Seen and examined at bedside; 24hour events reviewed; nursing and respiratory care staff consulted; no adverse overnight events reported to me; remaicelestine on MVS; COVID-19 test result negative; remains with significant hypoxemia; no emesis or overt aspiration; denies uncontrolled pain; azotemia a little better but CXR with worsening volume overload pattern Objective Vital Signs - 12hr 05/27/21 05/27/21 05/27/21 01:15 01:30 01:45 Temperature Pulse Rate 92 H 93 H 85 Pulse Rate [ Anterior Bilateral Throughout] Respiratory 11 L 11 L 12 Rate Respiratory Rate [Anterior Bilateral Throughout] Blood Pressure 112/53 113/58 121/65 O2 Sat by Pulse 90 90 92 Oximetry 05/27/21 05/27/21 05/27/21 02:00 02:15 02:30 Temperature Pulse Rate 81 144 H 102 H Pulse Rate [ Anterior Bilateral Throughout] Respiratory 8 L 12 25 H Rate Respiratory Rate [Anterior Bilateral Throughout] Blood Pressure 119/66 119/66 121/70 O2 Sat by Pulse 91 86 89 Oximetry 05/27/21 05/27/21 05/27/21 02:45 03:00 03:15 Temperature Pulse Rate 101 H 95 H 84 Pulse Rate [ Anterior Bilateral Throughout] Respiratory 25 H 25 H 25 H Rate Respiratory Rate [Anterior Bilateral Throughout] Blood Pressure 108/67 108/61 112/61 O2 Sat by Pulse 90 90 91 Oximetry 05/27/21 05/27/21 05/27/21 03:30 03:45 03:48 Temperature 98.4 F Pulse Rate 84 82 Pulse Rate [ Anterior Bilateral Throughout] Respiratory 25 H 25 H Rate Respiratory Rate [Anterior Bilateral Throughout] Blood Pressure 104/58 103/64 O2 Sat by Pulse 91 92 Oximetry 05/27/21 05/27/21 05/27/21 04:00 04:15 04:21 Temperature Pulse Rate 85 92 H 87 Pulse Rate [ Anterior Bilateral Throughout] Respiratory 26 H 25 H Rate Respiratory Rate [Anterior Bilateral Throughout] Blood Pressure 100/64 109/62 109/62 O2 Sat by Pulse 92 91 91 Oximetry 05/27/21 05/27/21 05/27/21 04:30 04:45 05:00 Temperature Pulse Rate 91 H 84 83 Pulse Rate [ Anterior Bilateral Throughout] Respiratory 25 H 18 22 Rate Respiratory Rate [Anterior Bilateral Throughout] Blood Pressure 115/64 105/54 109/61 O2 Sat by Pulse 90 91 91 Oximetry 05/27/21 05/27/21 05/27/21 05:15 05:30 05:45 Temperature Pulse Rate 76 75 82 Pulse Rate [ Anterior Bilateral Throughout] Respiratory 21 15 22 Rate Respiratory Rate [Anterior Bilateral Throughout] Blood Pressure 106/58 108/58 105/57 O2 Sat by Pulse 91 91 91 Oximetry 05/27/21 05/27/21 05/27/21 06:00 06:15 06:30 Temperature Pulse Rate 70 70 71 Pulse Rate [ Anterior Bilateral Throughout] Respiratory 26 H 25 H 25 H Rate Respiratory Rate [Anterior Bilateral Throughout] Blood Pressure 110/57 110/59 105/56 O2 Sat by Pulse 91 91 91 Oximetry 05/27/21 05/27/21 05/27/21 06:45 07:00 07:15 Temperature Pulse Rate 72 79 70 Pulse Rate [ Anterior Bilateral Throughout] Respiratory 18 22 23 Rate Respiratory Rate [Anterior Bilateral Throughout] Blood Pressure 106/55 103/54 105/56 O2 Sat by Pulse 92 92 92 Oximetry 05/27/21 05/27/21 05/27/21 07:30 07:33 07:45 Temperature 98.1 F Pulse Rate 99 H 87 Pulse Rate [ Anterior Bilateral Throughout] Respiratory 14 21 Rate Respiratory Rate [Anterior Bilateral Throughout] Blood Pressure 119/73 114/60 O2 Sat by Pulse 91 92 Oximetry 05/27/21 05/27/21 05/27/21 08:00 08:15 08:30 Temperature Pulse Rate 94 H 83 96 H Pulse Rate [ Anterior Bilateral Throughout] Respiratory 14 19 21 Rate Respiratory Rate [Anterior Bilateral Throughout] Blood Pressure 117/67 106/57 120/69 O2 Sat by Pulse 91 91 90 Oximetry 05/27/21 05/27/21 05/27/21 08:45 09:00 09:02 Temperature Pulse Rate 77 72 Pulse Rate [ 67 Anterior Bilateral Throughout] Respiratory 20 19 Rate Respiratory 25 H Rate [Anterior Bilateral Throughout] Blood Pressure 114/58 103/57 O2 Sat by Pulse 91 90 Oximetry 05/27/21 05/27/21 05/27/21 09:15 09:30 09:45 Temperature Pulse Rate 85 90 85 Pulse Rate [ Anterior Bilateral Throughout] Respiratory 24 26 H 21 Rate Respiratory Rate [Anterior Bilateral Throughout] Blood Pressure 112/61 117/60 118/61 O2 Sat by Pulse 92 92 91 Oximetry 05/27/21 05/27/21 05/27/21 10:00 10:15 10:31 Temperature Pulse Rate 77 73 92 H Pulse Rate [ Anterior Bilateral Throughout] Respiratory 17 16 15 Rate Respiratory Rate [Anterior Bilateral Throughout] Blood Pressure 115/58 114/59 114/59 O2 Sat by Pulse 91 91 92 Oximetry 05/27/21 05/27/21 05/27/21 10:45 11:00 11:15 Temperature Pulse Rate 89 75 76 Pulse Rate [ Anterior Bilateral Throughout] Respiratory 15 15 24 Rate Respiratory Rate [Anterior Bilateral Throughout] Blood Pressure 108/62 110/63 111/62 O2 Sat by Pulse 91 91 91 Oximetry 05/27/21 05/27/21 05/27/21 11:30 11:45 12:00 Temperature Pulse Rate 77 71 106 H Pulse Rate [ Anterior Bilateral Throughout] Respiratory 24 28 H 22 Rate Respiratory Rate [Anterior Bilateral Throughout] Blood Pressure 113/65 112/59 134/82 O2 Sat by Pulse 90 91 90 Oximetry 05/27/21 05/27/21 05/27/21 12:15 12:30 12:45 Temperature Pulse Rate 86 80 76 Pulse Rate [ Anterior Bilateral Throughout] Respiratory 12 16 19 Rate Respiratory Rate [Anterior Bilateral Throughout] Blood Pressure 118/60 113/61 111/60 O2 Sat by Pulse 90 90 90 Oximetry Constitutional: appears uncomfortable, other (middle aged morbidly obese male with mildly increased respiratory effort at rest on MVS) Eyes: non-icteric ENT: oropharynx moist, other (ETT 24 cm FRANCIS) Neck: supple, no lymphadenopathy, no JVD Effort: mildly labored Ascultation: Bilateral: rhonchi Percussion: Bilateral: not dull Cardiovascular: regular rate and rhythm Gastrointestinal: normoactive bowel sounds, soft, non-tender, non-distended Integumentary: rash (stasis dermatitis) Extremities: no cyanosis, pulses normal, no ischemia or petechiae, edema (trace) Neurologic: non-focal exam (grossly), pupils equal and round, unable to assess, other (sedated) Psychiatric: other (unable to assess re: AMS) CBC and BMP: 05/27/21 08:00 05/27/21 08:00 ABG, PT/INR, D-dimer: ABG ABG pH 7.300 pH Units (7.350-7.450) L 05/27/21 10:15 POC ABG pCO2 40.1 mmHg (32.0-48.0) 05/26/21 21:00 ABG pCO2 54.0 mm Hg 05/27/21 10:15 POC ABG pO2 56.7 mmHg (83-108) L 05/26/21 21:00 ABG pO2 42.1 mm Hg (80.0-90.0) L 05/27/21 10:15 POC ABG HCO3 23.8 05/26/21 21:00 ABG O2 Saturation 72.8 % (95.0-99.0) L 05/27/21 10:15 PT/INR, D-dimer PT 18.1 Sec. (12.2-14.9) H 05/23/21 15:09 INR 1.36 (0.87-1.13) H 05/23/21 15:09 D-Dimer 4444.85 ng/mlDDU (0-234) H 05/23/21 15:09 Abnormal lab findings: Abnormal Labs 05/23/21 05/23/21 05/23/21 15:00 15:09 15:09 WBC Hgb MCV 95 H MCHC 30 L RDW 20.1 H Plt Count Lymph % (Auto) 5.9 L Lymph # (Auto) 0.6 L Seg Neutrophils % 87.5 H Seg Neuts % (Manual) Lymphocytes % (Manual) Seg Neutrophils # 8.2 H Seg Neutrophils # Man Lymphocytes # (Manual) PT 18.1 H INR 1.36 H APTT 23.1 L D-Dimer ABG pH 7.215 L POC ABG pCO2 POC ABG pO2 ABG pO2 ABG HCO3 28.4 H ABG O2 Saturation ABG Base Excess ABG Hemoglobin 13.5 L ABG Oxyhemoglobin ABG Potassium ABG Glucose Oxyhemoglobin 92.6 L Potassium Carbon Dioxide BUN Creatinine Glucose POC Glucose Calcium AST ALT Ammonia Total Creatine Kinase Troponin T C-Reactive Protein NT-Pro-B Natriuret Pep Albumin HDL Cholesterol Arterial Blood Glucose Urine WBC (Auto) Urine Creatinine Salicylates Acetaminophen 05/23/21 05/23/21 05/23/21 15:09 15:09 15:09 WBC Hgb MCV MCHC RDW Plt Count Lymph % (Auto) Lymph # (Auto) Seg Neutrophils % Seg Neuts % (Manual) Lymphocytes % (Manual) Seg Neutrophils # Seg Neutrophils # Man Lymphocytes # (Manual) PT INR APTT D-Dimer ABG pH POC ABG pCO2 POC ABG pO2 ABG pO2 ABG HCO3 ABG O2 Saturation ABG Base Excess ABG Hemoglobin ABG Oxyhemoglobin ABG Potassium ABG Glucose Oxyhemoglobin Potassium 5.2 H Carbon Dioxide BUN 40 H Creatinine 3.2 H Glucose 133 H POC Glucose Calcium AST 1094 H ALT 1089 H Ammonia 75.0 H Total Creatine Kinase Troponin T 0.038 H C-Reactive Protein NT-Pro-B Natriuret Pep Albumin 3.0 L HDL Cholesterol 29 L Arterial Blood Glucose Urine WBC (Auto) Urine Creatinine Salicylates < 0.3 L Acetaminophen 05/23/21 05/23/21 05/23/21 15:09 15:09 15:09 WBC Hgb MCV MCHC RDW Plt Count Lymph % (Auto) Lymph # (Auto) Seg Neutrophils % Seg Neuts % (Manual) Lymphocytes % (Manual) Seg Neutrophils # Seg Neutrophils # Man Lymphocytes # (Manual) PT INR APTT D-Dimer 4444.85 H ABG pH POC ABG pCO2 POC ABG pO2 ABG pO2 ABG HCO3 ABG O2 Saturation ABG Base Excess ABG Hemoglobin ABG Oxyhemoglobin ABG Potassium ABG Glucose Oxyhemoglobin Potassium Carbon Dioxide BUN Creatinine Glucose POC Glucose Calcium AST ALT Ammonia Total Creatine Kinase 48 L Troponin T C-Reactive Protein NT-Pro-B Natriuret Pep 07510 H Albumin HDL Cholesterol Arterial Blood Glucose Urine WBC (Auto) Urine Creatinine Salicylates Acetaminophen 5.0 L 05/23/21 05/23/21 05/23/21 19:10 20:48 Unknown WBC Hgb MCV MCHC RDW Plt Count Lymph % (Auto) Lymph # (Auto) Seg Neutrophils % Seg Neuts % (Manual) Lymphocytes % (Manual) Seg Neutrophils # Seg Neutrophils # Man Lymphocytes # (Manual) PT INR APTT D-Dimer ABG pH 7.332 L POC ABG pCO2 POC ABG pO2 ABG pO2 74.0 L ABG HCO3 ABG O2 Saturation 94.4 L ABG Base Excess ABG Hemoglobin 12.5 L ABG Oxyhemoglobin ABG Potassium ABG Glucose Oxyhemoglobin 92.3 L Potassium Carbon Dioxide BUN Creatinine Glucose POC Glucose Calcium AST ALT Ammonia Total Creatine Kinase Troponin T C-Reactive Protein 10.00 H NT-Pro-B Natriuret Pep Albumin HDL Cholesterol Arterial Blood Glucose Urine WBC (Auto) 34.0 H Urine Creatinine Salicylates Acetaminophen 05/24/21 05/24/21 05/24/21 04:55 04:55 09:15 WBC Hgb MCV 95 H MCHC 31 L RDW 19.4 H Plt Count Lymph % (Auto) Lymph # (Auto) Seg Neutrophils % Seg Neuts % (Manual) 97.0 H Lymphocytes % (Manual) 3.0 L Seg Neutrophils # Seg Neutrophils # Man 8.4 H Lymphocytes # (Manual) 0.3 L PT INR APTT D-Dimer ABG pH POC ABG pCO2 POC ABG pO2 ABG pO2 90.6 H ABG HCO3 ABG O2 Saturation ABG Base Excess -3.7 L ABG Hemoglobin 13.5 L ABG Oxyhemoglobin ABG Potassium ABG Glucose Oxyhemoglobin Potassium 5.5 H Carbon Dioxide 20 L BUN 39 H Creatinine 2.2 H Glucose 155 H POC Glucose Calcium 8.3 L AST 571 H ALT 951 H Ammonia Total Creatine Kinase Troponin T C-Reactive Protein NT-Pro-B Natriuret Pep Albumin 3.2 L HDL Cholesterol Arterial Blood Glucose Urine WBC (Auto) Urine Creatinine Salicylates Acetaminophen 05/25/21 05/25/21 05/25/21 04:20 14:37 14:37 WBC Hgb MCV 96 H MCHC 30 L RDW 20.7 H Plt Count Lymph % (Auto) Lymph # (Auto) Seg Neutrophils % Seg Neuts % (Manual) Lymphocytes % (Manual) Seg Neutrophils # Seg Neutrophils # Man Lymphocytes # (Manual) PT INR APTT D-Dimer ABG pH 7.222 L POC ABG pCO2 57.8 H POC ABG pO2 67.3 L ABG pO2 ABG HCO3 ABG O2 Saturation ABG Base Excess ABG Hemoglobin ABG Oxyhemoglobin 89.1 L ABG Potassium 5.1 H ABG Glucose 182 H Oxyhemoglobin Potassium 5.3 H Carbon Dioxide BUN 47 H Creatinine 2.0 H Glucose 154 H POC Glucose Calcium AST 93 H ALT 590 H Ammonia Total Creatine Kinase Troponin T C-Reactive Protein NT-Pro-B Natriuret Pep Albumin 3.6 L HDL Cholesterol Arterial Blood Glucose 182 H Urine WBC (Auto) Urine Creatinine Salicylates Acetaminophen 05/25/21 05/25/21 05/26/21 21:50 23:30 05:31 WBC Hgb MCV MCHC RDW Plt Count Lymph % (Auto) Lymph # (Auto) Seg Neutrophils % Seg Neuts % (Manual) Lymphocytes % (Manual) Seg Neutrophils # Seg Neutrophils # Man Lymphocytes # (Manual) PT INR APTT D-Dimer ABG pH 7.328 L POC ABG pCO2 POC ABG pO2 ABG pO2 63.3 L ABG HCO3 ABG O2 Saturation 92.1 L ABG Base Excess -2.4 L ABG Hemoglobin 11.3 L ABG Oxyhemoglobin ABG Potassium ABG Glucose Oxyhemoglobin 90.3 L Potassium Carbon Dioxide BUN Creatinine Glucose POC Glucose 131 H 123 H Calcium AST ALT Ammonia Total Creatine Kinase Troponin T C-Reactive Protein NT-Pro-B Natriuret Pep Albumin HDL Cholesterol Arterial Blood Glucose Urine WBC (Auto) Urine Creatinine Salicylates Acetaminophen 05/26/21 05/26/21 05/26/21 09:02 10:57 17:30 WBC Hgb MCV MCHC RDW Plt Count Lymph % (Auto) Lymph # (Auto) Seg Neutrophils % Seg Neuts % (Manual) Lymphocytes % (Manual) Seg Neutrophils # Seg Neutrophils # Man Lymphocytes # (Manual) PT INR APTT D-Dimer ABG pH 7.346 L POC ABG pCO2 POC ABG pO2 ABG pO2 60.5 L ABG HCO3 ABG O2 Saturation 90.7 L ABG Base Excess ABG Hemoglobin 13.1 L ABG Oxyhemoglobin ABG Potassium ABG Glucose Oxyhemoglobin 88.9 L Potassium Carbon Dioxide BUN Creatinine Glucose POC Glucose 127 H 141 H Calcium AST ALT Ammonia Total Creatine Kinase Troponin T C-Reactive Protein NT-Pro-B Natriuret Pep Albumin HDL Cholesterol Arterial Blood Glucose Urine WBC (Auto) Urine Creatinine Salicylates Acetaminophen 05/26/21 05/26/21 05/26/21 21:00 Unknown Unknown WBC 4.2 L Hgb 11.7 L MCV MCHC 31 L RDW 20.3 H Plt Count 132 L Lymph % (Auto) Lymph # (Auto) Seg Neutrophils % Seg Neuts % (Manual) Lymphocytes % (Manual) Seg Neutrophils # Seg Neutrophils # Man Lymphocytes # (Manual) PT INR APTT D-Dimer ABG pH POC ABG pCO2 POC ABG pO2 56.7 L ABG pO2 ABG HCO3 ABG O2 Saturation ABG Base Excess ABG Hemoglobin ABG Oxyhemoglobin 88.8 L ABG Potassium 4.7 H ABG Glucose 152 H Oxyhemoglobin Potassium 5.2 H Carbon Dioxide BUN 47 H Creatinine 2.0 H Glucose 136 H POC Glucose Calcium AST 64 H ALT 448 H Ammonia Total Creatine Kinase Troponin T C-Reactive Protein NT-Pro-B Natriuret Pep Albumin 3.4 L HDL Cholesterol Arterial Blood Glucose 152 H Urine WBC (Auto) Urine Creatinine Salicylates Acetaminophen 05/26/21 05/27/21 05/27/21 Unknown 08:00 08:00 WBC 4.2 L Hgb MCV MCHC RDW 21.2 H Plt Count 126 L Lymph % (Auto) Lymph # (Auto) Seg Neutrophils % Seg Neuts % (Manual) Lymphocytes % (Manual) Seg Neutrophils # Seg Neutrophils # Man Lymphocytes # (Manual) PT INR APTT D-Dimer ABG pH POC ABG pCO2 POC ABG pO2 ABG pO2 ABG HCO3 ABG O2 Saturation ABG Base Excess ABG Hemoglobin ABG Oxyhemoglobin ABG Potassium ABG Glucose Oxyhemoglobin Potassium Carbon Dioxide BUN 52 H Creatinine 1.8 H Glucose 171 H POC Glucose Calcium 8.3 L AST ALT Ammonia Total Creatine Kinase Troponin T C-Reactive Protein NT-Pro-B Natriuret Pep Albumin HDL Cholesterol Arterial Blood Glucose Urine WBC (Auto) Urine Creatinine 128.6 H Salicylates Acetaminophen 05/27/21 05/27/21 10:15 11:48 WBC Hgb MCV MCHC RDW Plt Count Lymph % (Auto) Lymph # (Auto) Seg Neutrophils % Seg Neuts % (Manual) Lymphocytes % (Manual) Seg Neutrophils # Seg Neutrophils # Man Lymphocytes # (Manual) PT INR APTT D-Dimer ABG pH 7.300 L POC ABG pCO2 POC ABG pO2 ABG pO2 42.1 L ABG HCO3 ABG O2 Saturation 72.8 L ABG Base Excess ABG Hemoglobin 12.7 L ABG Oxyhemoglobin ABG Potassium ABG Glucose Oxyhemoglobin 71.4 L Potassium Carbon Dioxide BUN Creatinine Glucose POC Glucose 139 H Calcium AST ALT Ammonia Total Creatine Kinase Troponin T C-Reactive Protein NT-Pro-B Natriuret Pep Albumin HDL Cholesterol Arterial Blood Glucose Urine WBC (Auto) Urine Creatinine Salicylates Acetaminophen Chest x-ray: image reviewed (pulm edema with small effusions) Allied health notes reviewed: nursing
[2021-05-27] MEDS ORDERED: FUROSEMIDE 40 MG/4 ML INJ IV SCH (15:15)
--- NOTE | 2021-05-27 15:38 | Progress Note ---
Assessment and Plan Assessment and plan: This is a 41-year-old male with acute hypoxic respiratory failure, elevated D- dimer, acute kidney injury, hyperkalemia and transaminitis Neuro: Acute metabolic encephalopathy -CT head and C-spine negative for acute process -TSH WNL -Patient is sedated with propofol and fentanyl -Goal RASS 0 to -1 -Avoid delirium -Reorientation ICU -Maintain sleep-wake cycle Cardio: Hypotension, possible CHF, h/o HTN -Cardiology consulted, appreciate recommendations -S/p Levophed -echocardiogram showed mild to moderate dilated right heart chambers, LVEF 55% -Cardiology recommends conservative cardiac management -Patient currently not hypertensive -No home antihypertensive regimen found on home med list -Blood pressure monitoring per protocol -As needed hydralazine Respiratory: Acute possibly on chronic hypoxemic and hypercapnic respiratory nayeli lure, ARDS, h/o sleep apnea -[facility]/pulmonary consulted, appreciate recommendations -Patient intubated on 05/23 for airway protection in the ED -Intubated with 7.50 ETT at 24 the lips -A.m. ABG noted -A.m. vent settings: Assist control tidal line 450, rate 25, PEEP 14, FiO2 85% -[facility] decreased FiO2 to 80% -See RT notes for titration -AM CXR noted -VAP bundle GI: Transaminitis, morbid obesity -NTR consult for tube feedings -Tube feedings Nepro at 45 mL's per hour -Free water flush 175 mL/4hr -24-hour +1012 -Presented with elevated LFTs which are now improving -Trend LFTs : Acute renal failure secondary to vasomotor nephropathy -Nephrology consulted, appreciate recommendations -Garcia catheter for strict intake and output -Avoid nephrotoxic medications -Renally dose medications -Renal calculated at 0.41% indicating prerenal -Patient admitted with volume overload (proBNP 88048) -Patient will receive Lasix x1 ID: CAP, leukopenia, coag negative Staphylococcus in blood culture 07/26 -CT C-spine showed right upper lobe pneumonia -Antibiotic therapy with cefepime and azithromycin -Monitor fever and WBC curve -05/23 UC, tracheal aspirate no growth to date -05/23 blood culture with coag negative staph in 1 of 2 bottles Endo: NAD -Accu-Cheks every 6 while on tube feedings -No indication for SSI at this time -Avoid hypoglycemia -Target blood glucose while critically ill less than 180 Heme: Elevated D-dimer -VQ scan unable to be performed due to patient being intubated -CTA head unable to be performed due to renal function and size -Heparin subcu -SCDs to bilateral lower extremity while in bed -Echocardiogram shows no right heart strain -Trend CBC -Transfuse for hemoglobin less than 7 -Bilateral lower extremity Doppler ultrasound negative for DVT The high probability of a clinically significant, sudden or life threatening deterioration of the [renal/pulm] system(s) required my full and direct attention, intervention and personal management. The aggregate critical care time was [60] minutes. This time is in addition to time spent performing reported procedures but includes the following: [x] Data Review and interpretation [x] Patient assessment and monitoring of vital signs [x] Documentation [x] Medication orders and management Disposition Plan: ICU Total Time Spent with Patient (Minutes): 60 History Interval history: This is a 41-year-old male who has HTN, REVA and morbid obesity who presents to the emergency department on 05/23 via EMS for severe respiratory distress. Upon EMS arrival patient was found to be altered and sedated from bed to floor and reports noncompliant with CPAP/BiPAP. Patient received bag valve mask ventilation via nasal trumpet with EMS on route. Work-up in the emergency department included a CXR which showed [place] [address], elevated troponin at 0.038, elevated D-dimer, acute kidney injury, hyperkalemia and transaminitis. Patient was intubated in the emergency department for for airway protection as he was reported to be obtunded and without a gag reflex. Patient did receive Narcan in the field by EMS however there was no reported affect. Hospital course to date: 05/24/2021: Patient intubated and sedated. VQ scan ordered secondary to elevated D-dimer. Cardiology consulted secondary to elevated troponin and elevated BNP. Echocardiogram ordered and pending. 05/25/2021: Patient still intubated. Responsive to commands. Hypotensive, nor epinephrine increased to 15mcg. Unable to get V/Q scan due to body habitus. 05/26: Overnight patient experienced desaturation to the 80s and FiO2 was increased. This morning on ABG patient exhibited hypoxemia and FiO2 was unchanged. CCM later increased PEEP and decrease FiO2. Nephrology was cons ulted due to no recovery in renal function noted. Urine lites were ordered. Hyperkalemia treated medically. 05/27: Patient remains sedated on fentanyl and propofol, [facility] will taper Solu- Medrol and repeat ABG in 1899. Patient received 40 mg of Lasix x1. Slight improvement to renal function noted Hospitalist Physical - Constitutional Vitals: Temp Pulse Resp BP Pulse Ox 98.1 F 78 6 L 107/52 91 05/27/21 12:00 05/27/21 14:30 05/27/21 14:30 05/27/21 14:30 05/27/21 14:30 General appearance: Present: no acute distress, other (Intubated) - EENT Eyes: Present: PERRL, EOM intact ENT: dentition normal - Neck Neck: Present: normal ROM - Respiratory Respiratory effort: normal Respiratory: bilateral: diminished - Cardiovascular Rhythm: regular Heart Sounds: Present: S1 & S2. Absent: systolic murmur, diastolic murmur - Extremities Extremities: no ischemia, pulses intact, pulses symmetrical, normal temperature, normal color Extremity abnormal: edema Peripheral Pulses: within normal limits - Abdominal General gastrointestinal: soft, non-tender, non-distended, normal bowel sounds - Integumentary Integumentary: Present: warm, dry - Psychiatric Psychiatric: other (Sedated) - Neurologic Neurologic: other (Intact cough/gag, track/focus) - Allied Health Allied health notes reviewed: nursing, RT, social work HEART Score - HEART Score Troponin: Troponin T 0.038 ng/mL (0.00-0.029) H 05/23/21 15:09 Results - Labs CBC & Chem 7: 05/27/21 08:00 05/27/21 08:00 Labs: Laboratory Last Values WBC 4.2 K/mm3 (4.5-11.0) L 05/27/21 08:00 RBC 3.99 M/mm3 (3.65-5.03) 05/27/21 08:00 Hgb 12.0 gm/dl (11.8-15.2) 05/27/21 08:00 Hct 37.5 % (35.5-45.6) 05/27/21 08:00 MCV 94 fl (84-94) 05/27/21 08:00 MCH 30 pg (28-32) 05/27/21 08:00 MCHC 32 % (32-34) 05/27/21 08:00 RDW 21.2 % (13.2-15.2) H 05/27/21 08:00 Plt Count 126 K/mm3 (140-440) L 05/27/21 08:00 Lymph % (Auto) 5.9 % (13.4-35.0) L 05/23/21 15:09 Curry % (Auto) 6.1 % (0.0-7.3) 05/23/21 15:09 Eos % (Auto) 0.2 % (0.0-4.3) 05/23/21 15:09 Baso % (Auto) 0.3 % (0.0-1.8) 05/23/21 15:09 Lymph # (Auto) 0.6 K/mm3 (1.2-5.4) L 05/23/21 15:09 Curry # (Auto) 0.6 K/mm3 (0.0-0.8) 05/23/21 15:09 Eos # (Auto) 0.0 K/mm3 (0.0-0.4) 05/23/21 15:09 Baso # (Auto) 0.0 K/mm3 (0.0-0.1) 05/23/21 15:09 Add Manual Diff Complete 05/24/21 04:55 Total Counted 100 05/24/21 04:55 Seg Neutrophils % Technical Mgr 05/24/21 04:55 Seg Neuts % (Manual) 97.0 % (40.0-70.0) H 05/24/21 04:55 Lymphocytes % (Manual) 3.0 % (13.4-35.0) L 05/24/21 04:55 Nucleated RBC % Not Reportable 05/24/21 04:55 Seg Neutrophils # 8.2 K/mm3 (1.8-7.7) H 05/23/21 15:09 Seg Neutrophils # Man 8.4 K/mm3 (1.8-7.7) H 05/24/21 04:55 Band Neutrophils # 0.0 K/mm3 05/24/21 04:55 Lymphocytes # (Manual) 0.3 K/mm3 (1.2-5.4) L 05/24/21 04:55 Abs React Lymphs (Man) 0.0 K/mm3 05/24/21 04:55 Monocytes # (Manual) 0.0 K/mm3 (0.0-0.8) 05/24/21 04:55 Eosinophils # (Manual) 0.0 K/mm3 (0.0-0.4) 05/24/21 04:55 Basophils # (Manual) 0.0 K/mm3 (0.0-0.1) 05/24/21 04:55 Metamyelocytes # 0.0 K/mm3 05/24/21 04:55 Myelocytes # 0.0 K/mm3 05/24/21 04:55 Promyelocytes # 0.0 K/mm3 05/24/21 04:55 Blast Cells # 0.0 K/mm3 05/24/21 04:55 WBC Morphology Not Reportable 05/24/21 04:55 Hypersegmented Neuts Not Reportable 05/24/21 04:55 Hyposegmented Neuts Not Reportable 05/24/21 04:55 Hypogranular Neuts Not Reportable 05/24/21 04:55 Smudge Cells Not Reportable 05/24/21 04:55 Toxic Granulation Not Reportable 05/24/21 04:55 Toxic Vacuolation Not Reportable 05/24/21 04:55 Dohle Bodies Not Reportable 05/24/21 04:55 Pelger-Huet Anomaly Not Reportable 05/24/21 04:55 Cynthia Rods Not Reportable 05/24/21 04:55 Platelet Estimate Consistent w auto 05/24/21 04:55 Clumped Platelets Not Reportable 05/24/21 04:55 Plt Clumps, EDTA Not Reportable 05/24/21 04:55 Large Platelets Not Reportable 05/24/21 04:55 Giant Platelets Not Reportable 05/24/21 04:55 Platelet Satelliting Not Reportable 05/24/21 04:55 Plt Morphology Comment Not Reportable 05/24/21 04:55 RBC Morphology Not Reportable 05/24/21 04:55 Dimorphic RBCs Not Reportable 05/24/21 04:55 Polychromasia Not Reportable 05/24/21 04:55 Hypochromasia Not Reportable 05/24/21 04:55 Poikilocytosis Not Reportable 05/24/21 04:55 Anisocytosis 1+ 05/24/21 04:55 Microcytosis Not Reportable 05/24/21 04:55 Macrocytosis Not Reportable 05/24/21 04:55 Spherocytes Not Reportable 05/24/21 04:55 Pappenheimer Bodies Not Reportable 05/24/21 04:55 Sickle Cells Not Reportable 05/24/21 04:55 Target Cells Not Reportable 05/24/21 04:55 Tear Drop Cells Not Reportable 05/24/21 04:55 Ovalocytes Not Reportable 05/24/21 04:55 Helmet Cells Not Reportable 05/24/21 04:55 [place] Bodies Not Reportable 05/24/21 04:55 [place] Rings Not Reportable 05/24/21 04:55 Luis Cells Not Reportable 05/24/21 04:55 Bite Cells Not Reportable 05/24/21 04:55 Crenated Cell Not Reportable 05/24/21 04:55 Elliptocytes Not Reportable 05/24/21 04:55 Acanthocytes (Spur) Not Reportable 05/24/21 04:55 Rouleaux Not Reportable 05/24/21 04:55 Hemoglobin C Crystals Not Reportable 05/24/21 04:55 Schistocytes Not Reportable 05/24/21 04:55 Malaria parasites Not Reportable 05/24/21 04:55 Uli Bodies Not Reportable 05/24/21 04:55 Hem Pathologist Commnt No 05/24/21 04:55 PT 18.1 Sec. (12.2-14.9) H 05/23/21 15:09 INR 1.36 (0.87-1.13) H 05/23/21 15:09 APTT 23.1 Sec. (24.2-36.6) L 05/23/21 15:09 D-Dimer 4444.85 ng/mlDDU (0-234) H 05/23/21 15:09 ABG pH 7.300 pH Units (7.350-7.450) L 05/27/21 10:15 POC ABG pCO2 40.1 mmHg (32.0-48.0) 05/26/21 21:00 ABG pCO2 54.0 mm Hg 05/27/21 10:15 POC ABG pO2 56.7 mmHg (83-108) L 05/26/21 21:00 ABG pO2 42.1 mm Hg (80.0-90.0) L 05/27/21 10:15 POC ABG HCO3 23.8 05/26/21 21:00 ABG HCO3 26.0 mmol/L (20.0-26.0) 05/27/21 10:15 ABG O2 Saturation 72.8 % (95.0-99.0) L 05/27/21 10:15 ABG O2 Content 12.8 (0.0-44) 05/27/21 10:15 POC ABG Base Excess -1.0 05/26/21 21:00 ABG Base Excess -1.1 mmol/L (-2.0-3.0) 05/27/21 10:15 ABG Hemoglobin 12.7 gm/dl (14.0-18.0) L 05/27/21 10:15 ABG Oxyhemoglobin 88.8 (94-98) L 05/26/21 21:00 ABG Carboxyhemoglobin 1.3 % (0.0-5.0) 05/27/21 10:15 ABG Methemoglobin 0.7 % (0.0-1.5) 05/27/21 10:15 ABG Sodium 140.4 mmol/L (136.0-145.0) 05/26/21 21:00 ABG Potassium 4.7 mmol/L (3.40-4.50) H 05/26/21 21:00 ABG Chloride 107.0 mmol/L (98-107) 05/26/21 21:00 ABG Glucose 152 mg/dL (65-95) H 05/26/21 21:00 Oxyhemoglobin 71.4 % (95.0-99.0) L 05/27/21 10:15 Carboxyhemoglobin 0.8 (0.5-1.5) 05/26/21 21:00 FiO2 85 % 05/27/21 10:15 FiO2 % 85.0 05/26/21 21:00 Sodium 138 mmol/L (137-145) 05/27/21 08:00 Potassium 4.6 mmol/L (3.6-5.0) 05/27/21 08:00 Chloride 105.2 mmol/L (98-107) 05/27/21 08:00 Carbon Dioxide 23 mmol/L (22-30) 05/27/21 08:00 Anion Gap 14 mmol/L 05/27/21 08:00 BUN 52 mg/dL (9-20) H 05/27/21 08:00 Creatinine 1.8 mg/dL (0.8-1.3) H 05/27/21 08:00 Estimated GFR 50 ml/min 05/27/21 08:00 BUN/Creatinine Ratio 29 % 05/27/21 08:00 Glucose 171 mg/dL (75-100) H 05/27/21 08:00 POC Glucose 139 mg/dL (70-105) H 05/27/21 11:48 Lactic Acid 1.50 mmol/L (0.7-2.0) 05/23/21 15:09 Calcium 8.3 mg/dL (8.4-10.2) L 05/27/21 08:00 Phosphorus 2.90 mg/dL (2.5-4.5) 05/27/21 05:30 Magnesium 2.30 mg/dL (1.7-2.3) 05/23/21 15:09 Total Bilirubin 0.60 mg/dL (0.1-1.2) 05/26/21 Unknown AST 64 units/L (5-40) H 05/26/21 Unknown ALT 448 units/L (7-56) H 05/26/21 Unknown Alkaline Phosphatase 58 units/L (35-129) 05/26/21 Unknown Ammonia 30.0 umol/L (25-60) 05/24/21 04:55 Total Creatine Kinase 48 units/L (55-170) L 05/23/21 15:09 Troponin T 0.038 ng/mL (0.00-0.029) H 05/23/21 15:09 C-Reactive Protein 10.00 mg/dL (0.00-1.30) H 05/23/21 19:10 NT-Pro-B Natriuret Pep 84513 pg/mL (0-450) H 05/23/21 15:09 Total Protein 7.0 g/dL (6.3-8.2) 05/26/21 Unknown Albumin 3.4 g/dL (3.9-5) L 05/26/21 Unknown Albumin/Globulin Ratio 0.9 % 05/26/21 Unknown Triglycerides 88 mg/dL (2-149) 05/23/21 15:09 Cholesterol 106 mg/dL (50-199) 05/23/21 15:09 LDL Cholesterol Direct 58 mg/dL (50-130) 05/23/21 15:09 HDL Cholesterol 29 mg/dL (40-59) L 05/23/21 15:09 Cholesterol/HDL Ratio 3.65 % 05/23/21 15:09 Procalcitonin 0.83 ng/mL (<0.15) 05/23/21 15:09 TSH 2.380 mlU/mL (0.270-4.200) 05/23/21 15:09 Arterial Blood Glucose 152 mg/dL (65-95) H 05/26/21 21:00 Urine Color [place] (Yellow) 05/23/21 Unknown Urine Turbidity Slightly-cloudy (Clear) 05/23/21 Unknown Urine pH 5.0 (5.0-7.0) 05/23/21 Unknown Ur Specific [place] 1.014 (1.003-1.030) 05/23/21 Unknown Urine Protein 30 mg/dl mg/dL (Negative) 05/23/21 Unknown Urine Glucose (UA) Neg mg/dL (Negative) 05/23/21 Unknown Urine Ketones Neg mg/dL (Negative) 05/23/21 Unknown Urine Blood Mod (Negative) 05/23/21 Unknown Urine Nitrite Neg (Negative) 05/23/21 Unknown Urine Bilirubin Neg (Negative) 05/23/21 Unknown Urine Urobilinogen 4.0 mg/dL (<2.0) 05/23/21 Unknown Ur Leukocyte Esterase Tr (Negative) 05/23/21 Unknown Urine WBC (Auto) 34.0 /HPF (0.0-6.0) H 05/23/21 Unknown Urine RBC (Auto) 20.0 /HPF (0.0-6.0) 05/23/21 Unknown U Epithel Cells (Auto) 2.0 /HPF (0-13.0) 05/23/21 Unknown Urine Bacteria (Auto) 1+ /HPF (Negative) 05/23/21 Unknown Urine Mucus Few /HPF 05/23/21 Unknown Urine Osmolality 612 Mosm/kg 05/26/21 Unknown Urine Creatinine 128.6 mg/dL (0.1-20.0) H 05/26/21 Unknown Urine Sodium 37 mmol/L 05/26/21 Unknown Urine Potassium 45.15 mmol/L 05/26/21 Unknown Urine Urea Nitrogen 989 05/26/21 Unknown Salicylates < 0.3 mg/dL (2.8-20.0) L 05/23/21 15:09 Urine Opiates Screen Negative 05/23/21 Unknown Urine Methadone Screen Negative 05/23/21 Unknown Acetaminophen 5.0 ug/mL (10.0-30.0) L 05/23/21 15:09 Ur Barbiturates Screen Negative 05/23/21 Unknown Ur Phencyclidine Scrn Negative 05/23/21 Unknown Ur Amphetamines Screen Negative 05/23/21 Unknown U Benzodiazepines Scrn Negative 05/23/21 Unknown Urine Cocaine Screen Negative 05/23/21 Unknown U Marijuana (THC) Screen Negative 05/23/21 Unknown Drugs of Abuse Note Disclamer 05/23/21 Unknown Plasma/Serum Alcohol < 0.01 % (0-0.07) 05/23/21 15:09 Coronavirus (PCR) Negative (Negative) 05/23/21 Unknown Blood Type O POSITIVE 05/23/21 15:01 Antibody Screen Negative 05/23/21 15:01 Microbiology: Microbiology 05/23/21 15:09 Peripheral/Venous Blood Culture - Preliminary NO GROWTH AFTER 4 DAYS 05/23/21 15:09 Peripheral/Venous Blood Culture - Preliminary Coag Negative Staphylococcus Garcia/IV: Voiding Method Indwelling Catheter Active Medications - Current Medications Current Medications: Generic Name Dose Route Start Last Admin Trade Name Freq PRN Reason Stop Dose Admin Acetaminophen 650 mg 05/23/21 20:42 Acetaminophen 325 Mg Tab PO Q4H PRN Pain MILD(1-3)/Fever >100.5/CASTORENA Albuterol 2.5 mg 05/23/21 21:11 Albuterol 2.5 Mg/3 Ml Nebu IH Q4HRT PRN Shortness Of Breath Albuterol/Ipratropium 1 ampul 05/24/21 08:00 05/27/21 13:23 Ipratropium/Albuterol Sulfate 3 Ml Ampul.Neb IH 1 ampul QIDRT ROSEMARIE Administration Lipase/Protease/Amylase 1 each 05/24/21 10:14 Lipase 10,500/Protease 25,000/Amylase 43,750 (Units) Dr Higgins FEEDTUBE PRN PRN For Clogged Feeding Tube Famotidine 20 mg 05/27/21 10:00 05/27/21 10:30 Famotidine 20 Mg Tab FEEDTUBE 20 mg BID ROSEMARIE Administration Fentanyl 50 mcg 05/23/21 12:34 05/23/21 18:50 Fentanyl 100 Mcg/2 Ml Inj IV 50 mcg Q10MIN PRN Administration ANALGESIA Furosemide 40 mg 05/27/21 15:15 Furosemide 40 Mg/4 Ml Inj IV 05/27/21 19:15 ONCE@1515 ROSEMARIE Heparin Sodium (Porcine) 5,000 unit 05/23/21 20:00 05/27/21 13:09 Heparin 5,000 Unit/1 Ml Vial SUB-Q 5,000 unit Q8HR ROSEMARIE Administration Hydrophilic Ointment 1 applic 05/23/21 12:34 Lip Therapy Vaseline TP Q2HR PRN Dry Lips Fentanyl Citrate 2,000 mcg in 100 mls @ 8.528 mls/hr 05/23/21 13:00 05/27/21 13:07 Fentanyl Drip Premix IV 3 mcg/kg/hr TITR ROSEMARIE 25.583 mls/hr Administration Protocol 1 MCG/KG/HR Cefepime HCl 2 gm in 100 mls @ 200 mls/hr 05/23/21 22:00 05/27/21 10:30 Cefepime/Ns 2 Gm/100 Ml IV 05/28/21 10:29 200 mls/hr Q12H ROSEMARIE Administration Protocol NORepinephrine/NS 8 MG-250 ML 8 mg in 250 mls @ 3.75 mls/hr 05/24/21 20:00 05/25/21 15:20 Norepinephrine/Ns 8 Mg-250 Ml (Double Conc) IV 0 mcg/min TITRATE ROSEMARIE 0 mls/hr Titration Protocol 2 MCG/MIN Propofol 1,000 mg in 100 mls @ 5.117 mls/hr 05/25/21 19:00 05/27/21 13:06 Diprivan 10 Mg/Ml IV 25 mcg/kg/min TITR ROSEMARIE 25.583 mls/hr Administration Protocol 5 MCG/KG/MIN Methylprednisolone Sodium Succinate 40 mg 05/28/21 10:00 Methylprednisolone Sod Succinate 40 Mg/1 Ml Inj IV 05/29/21 10:01 Q24HR ROSEMARIE Multi-Ingred Cream/Lotion/Oil/Oint 1 applic 05/23/21 12:34 Mineral Oil/Petrolatum, White Ophth Oint 3.5 Gm OU Q4HR PRN Dry Eye(s) Ondansetron HCl 4 mg 05/23/21 20:42 Ondansetron 4 Mg/2 Ml Inj IV Q8H PRN Nausea And Vomiting Senna/Docusate Sodium 1 tab 05/23/21 22:00 05/27/21 10:30 Sennosides/Docusate Sodium 8.6/50 Mg Tab FEEDTUBE 1 tab BID ROSEMARIE Administration Simple Syrup 15 ml 05/24/21 10:14 Simple Syrup 15 Ml FEEDTUBE PRN PRN Hypoglycemia Simple Syrup 30 ml 05/24/21 10:14 Simple Syrup 15 Ml FEEDTUBE PRN PRN Hypoglycemia Sodium Bicarbonate 325 mg 05/24/21 10:14 Sodium Bicarbonate 325 Mg Tab FEEDTUBE PRN PRN For Clogged Feeding Tube Sodium Chloride 10 ml 05/23/21 22:00 05/27/21 10:33 Sodium Chloride 0.9% 10 Ml Flush Syringe IV 10 ml BID ROSEMARIE Administration Sodium Chloride 10 ml 05/23/21 20:42 Sodium Chloride 0.9% 10 Ml Flush Syringe IV PRN PRN LINE FLUSH Nutrition/Malnutrition Assess - Dietary Evaluation Nutrition/Malnutrition Findings: Nutrition Notes Start: 05/24/21 09:53 Freq: Status: Active Protocol: Document 05/25/21 12:00 GB (Rec: 05/25/21 12:14 GB [id number]) Nutrition Notes Initial or Follow up Reassessment Current Diagnosis Acute Kidney Injury, Hypertension,Respiratory Failure Other Pertinent Diagnosis SIRS, encephalopathy, pneu, transaminitis Current Diet NPO, Tube Feeding Nepro @ 45m/ hr Labs/Tests K 5.5 - increasing trend x2days, Ca 8.3 BUN 39 Cr 2.2 AST 571, ALT 951 (both showing improvement) BG 155 Pertinent Medications VitC, Azithromycin, Fentanyl Citrate, Norepenephrin/NS 8 Mg 250, Vancomycin HCl/NaCl, Zn Sulfate Height 5 ft 8 in Weight 170.551 kg [place] Body Weight (kg) 70.00 BMI 57.2 Weight change and time frame Admit weight. No reports of change upon admission Weight Status Morbidly Obese Subjective/Other Information Pt continues Intubated/sedated TF started MD note Bilateral pumponary opacities have improved. No pneumothorax BM: none recorded at time of assessment Skin: BLE edema 1+ non-pitting Percent of energy/protein needs met: TF at goal to meet 75% or greater of minimal estimated energy needs Burn Absent Trauma Absent GI Symptoms Other Difficulty In Swallowing Food Allergy No Skin Integrity/Comment not WNL Current % PO Other Minimum of two criteria No #1 Nutrition Diagnosis Swallowing difficulty Comments: 05/25: intubation/sedation continues. TF started Etiology ARF As Evidenced by Signs and Symptoms pt on vent and unable to consume PO Diagnosis Progress(for reassessment Continues documentation) Is patient on ventilator? Yes Is Patient Ambulatory and/or Out of Bed No REE-([facility]-confined to bed) 3092.088 Kcal/Kg value to use for calculation 11 Approximate Energy Requirements Using 1876 kcal/Kg Calculation Used for Recommendations Kcal/kg Additional Notes Protein: 0.6g/kg or greater @ 170kg Fluid: 1 ml/kcal or per MD Nutrition Intervention Change Diet Order: Continue NPO, Tube feeding Nutrition Support: Nepro 1.8 at 45 ml/hr Flush 175 ml q4h or per MD Total free water: TF@goal + flush = 1835ml Kcal 1,944 Protein (gm) 87 Fluid (mL) 785 Add Supplement/Snack (indicate name/kcal n/a /protein ) Goal #1 Meet at least 75% or greater of EEN via TF 05/25: met, continues Goal #2 TF (Nepro) at goal rate (45ml/ hr) by f/u 05/25: TF started Follow-Up By: 05/28/21 Additional Comments F/u: TF tolerance, renal labs, vent status
--- NOTE | 2021-05-27 17:57 | Ultrasound Report ---
BILATERAL CHEST ULTRASOUND INDICATION: Bilateral pleural effusions vs Atelectasis. COMPARISON: Chest x-ray same day FINDINGS: Small bilateral pleural effusions Signer Name: Henry Neri MD Signed: 05/27/2021 5:53 PM Workstation Name: [id number]
[2021-05-28] MEDS: fentaNYL DRIP Premix 2,000 MCG/100 ML BAG IV SCH ×6 (03:17→21:56)
--- NOTE | 2021-05-28 05:45 | XRay Report ---
CHEST 1 VIEW INDICATION: follow up respiratory failure. COMPARISON: One day prior. FINDINGS: Support devices: Left PICC tip projects within the SVC. Tubes are in satisfactory position. Heart: Widening of the cardiomediastinal silhouette is again noted. Lungs/Pleura: Pulmonary opacities are stable. No pneumothorax. IMPRESSION: 1. No significant change. Signer Name: Brennan Sanders MD Signed: 05/28/2021 5:41 AM Workstation Name: [id number]
[2021-05-28] MEDS: HEPARIN 5,000 UNIT/1 ML VIAL SUB-Q SCH ×3 (06:15→21:37)
[2021-05-28] MEDS: IPRATROPIUM/ALBUTEROL SULFATE 3 ML AMPUL.NEB IH SCH ×4 (08:11→20:42)
[2021-05-28 10:23] LABS: Mean Corpuscular HGB Conc 31 % (32-34); Mean Corpuscular Volume 94 fl (84-94); Platelet Count 121 K/mm3 (140-440); Red Blood Count 4.08 M/mm3 (3.65-5.03)
[2021-05-28 10:29] LABS: Hematocrit 38.4 % (35.5-45.6); Hemoglobin 11.7 gm/dl (11.8-15.2); Red Cell Distribution Width 21.3 % (13.2-15.2)
[2021-05-28] MEDS: methylPREDNISolone Sod Succinate 40 MG/1 ML INJ IV SCH (10:44)
[2021-05-28] MEDS: SENNOSIDES/DOCUSATE SODIUM 8.6/50 MG TAB FEEDTUBE SCH ×2 (10:44→21:39)
[2021-05-28] MEDS: FAMOTIDINE 20 MG TAB FEEDTUBE SCH ×2 (10:44→21:36)
[2021-05-28] MEDS: CEFEPIME/NS 2 GM/100 ML 2 GM/100 ML BAG IV SCH (10:45)
--- NOTE | 2021-05-28 11:25 | Progress Note ---
Assessment and Plan Acute Renal Failure likely on CKD Hypertension Acute Respiratory Failure Pneumonia, community-acquired Morbid obesity Obstructive sleep apnea Edema Plan: Cr si trending down, good UOP May have unerlying CKD given history of Obesity and Hypertension. 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 Subjective Date of service: 05/28/21 Principal diagnosis: Acute hypoxemic and hypercapnic resp failure; PUI COVID-19; Pneumonia; FERMIN Interval history: No overnight events reported Objective - Vital Signs Vital signs: Vital Signs - 12hr 05/27/21 05/27/21 05/27/21 23:30 23:45 23:57 Temperature Pulse Rate 101 H 129 H 96 H Pulse Rate [ Anterior Bilateral Throughout] Respiratory 26 H 25 H 25 H Rate Respiratory Rate [Anterior Bilateral Throughout] Blood Pressure 119/71 119/71 130/87 O2 Sat by Pulse 91 78 L 93 Oximetry 05/28/21 05/28/21 05/28/21 00:00 00:15 00:30 Temperature 98.1 F Pulse Rate 97 H 94 H 74 Pulse Rate [ Anterior Bilateral Throughout] Respiratory 25 H 25 H 25 H Rate Respiratory Rate [Anterior Bilateral Throughout] Blood Pressure 103/59 104/56 112/62 O2 Sat by Pulse 93 94 90 Oximetry 05/28/21 05/28/21 05/28/21 00:45 00:50 01:00 Temperature Pulse Rate 83 86 82 Pulse Rate [ Anterior Bilateral Throughout] Respiratory 25 H 24 Rate Respiratory Rate [Anterior Bilateral Throughout] Blood Pressure 102/55 102/54 O2 Sat by Pulse 95 95 Oximetry 05/28/21 05/28/21 05/28/21 01:15 01:30 01:45 Temperature Pulse Rate 78 70 70 Pulse Rate [ Anterior Bilateral Throughout] Respiratory 26 H 25 H 25 H Rate Respiratory Rate [Anterior Bilateral Throughout] Blood Pressure 103/54 102/54 103/56 O2 Sat by Pulse 95 95 95 Oximetry 05/28/21 05/28/21 05/28/21 02:00 02:15 02:30 Temperature Pulse Rate 69 69 67 Pulse Rate [ Anterior Bilateral Throughout] Respiratory 25 H 25 H 25 H Rate Respiratory Rate [Anterior Bilateral Throughout] Blood Pressure 104/57 104/58 104/57 O2 Sat by Pulse 95 96 95 Oximetry 05/28/21 05/28/21 05/28/21 02:45 03:00 03:15 Temperature Pulse Rate 65 67 66 Pulse Rate [ Anterior Bilateral Throughout] Respiratory 25 H 25 H 25 H Rate Respiratory Rate [Anterior Bilateral Throughout] Blood Pressure 107/57 107/59 106/61 O2 Sat by Pulse 95 96 96 Oximetry 05/28/21 05/28/21 05/28/21 03:30 03:45 04:00 Temperature 97.3 F L Pulse Rate 66 64 64 Pulse Rate [ Anterior Bilateral Throughout] Respiratory 25 H 25 H 25 H Rate Respiratory Rate [Anterior Bilateral Throughout] Blood Pressure 104/59 106/56 105/59 O2 Sat by Pulse 95 96 96 Oximetry 05/28/21 05/28/21 05/28/21 04:15 04:30 04:45 Temperature Pulse Rate 64 65 64 Pulse Rate [ Anterior Bilateral Throughout] Respiratory 25 H 25 H 25 H Rate Respiratory Rate [Anterior Bilateral Throughout] Blood Pressure 108/59 111/61 110/62 O2 Sat by Pulse 97 97 97 Oximetry 05/28/21 05/28/21 05/28/21 05:00 05:08 05:15 Temperature Pulse Rate 85 72 73 Pulse Rate [ Anterior Bilateral Throughout] Respiratory 25 H 25 H Rate Respiratory Rate [Anterior Bilateral Throughout] Blood Pressure 110/62 104/59 O2 Sat by Pulse 92 90 92 Oximetry 05/28/21 05/28/21 05/28/21 05:30 05:45 06:00 Temperature Pulse Rate 70 67 64 Pulse Rate [ Anterior Bilateral Throughout] Respiratory 25 H 25 H 25 H Rate Respiratory Rate [Anterior Bilateral Throughout] Blood Pressure 101/54 101/56 103/56 O2 Sat by Pulse 93 94 95 Oximetry 05/28/21 05/28/21 05/28/21 06:15 06:30 06:45 Temperature Pulse Rate 65 64 63 Pulse Rate [ Anterior Bilateral Throughout] Respiratory 25 H 24 25 H Rate Respiratory Rate [Anterior Bilateral Throughout] Blood Pressure 102/56 104/57 103/58 O2 Sat by Pulse 96 96 96 Oximetry 05/28/21 05/28/21 05/28/21 07:00 07:15 07:23 Temperature 97.3 F L Pulse Rate 67 63 Pulse Rate [ Anterior Bilateral Throughout] Respiratory 25 H 25 H Rate Respiratory Rate [Anterior Bilateral Throughout] Blood Pressure 104/58 104/58 O2 Sat by Pulse 96 96 Oximetry 05/28/21 05/28/21 05/28/21 07:30 07:45 08:00 Temperature Pulse Rate 65 114 H 85 Pulse Rate [ Anterior Bilateral Throughout] Respiratory 25 H 16 25 H Rate Respiratory Rate [Anterior Bilateral Throughout] Blood Pressure 104/58 123/84 106/58 O2 Sat by Pulse 96 92 94 Oximetry 05/28/21 05/28/21 05/28/21 08:09 08:11 08:15 Temperature Pulse Rate 94 H 99 H Pulse Rate [ 101 H Anterior Bilateral Throughout] Respiratory 23 Rate Respiratory 25 H Rate [Anterior Bilateral Throughout] Blood Pressure 112/65 O2 Sat by Pulse 93 91 Oximetry 05/28/21 05/28/21 05/28/21 08:30 08:45 09:00 Temperature Pulse Rate 102 H 108 H 107 H Pulse Rate [ Anterior Bilateral Throughout] Respiratory 24 25 H 24 Rate Respiratory Rate [Anterior Bilateral Throughout] Blood Pressure 108/59 96/56 97/57 O2 Sat by Pulse 92 91 91 Oximetry 05/28/21 05/28/21 05/28/21 09:15 09:30 09:45 Temperature Pulse Rate 111 H 116 H 114 H Pulse Rate [ Anterior Bilateral Throughout] Respiratory 25 H 25 H 25 H Rate Respiratory Rate [Anterior Bilateral Throughout] Blood Pressure 99/59 87/40 95/62 O2 Sat by Pulse 89 89 89 Oximetry 05/28/21 05/28/21 05/28/21 10:00 10:15 10:30 Temperature Pulse Rate 120 H 112 H 136 H Pulse Rate [ Anterior Bilateral Throughout] Respiratory 25 H 25 H 25 H Rate Respiratory Rate [Anterior Bilateral Throughout] Blood Pressure 103/67 104/66 118/76 O2 Sat by Pulse 90 90 89 Oximetry 05/28/21 05/28/21 10:45 11:00 Temperature Pulse Rate 111 H 110 H Pulse Rate [ Anterior Bilateral Throughout] Respiratory 25 H 25 H Rate Respiratory Rate [Anterior Bilateral Throughout] Blood Pressure 92/56 96/56 O2 Sat by Pulse 91 92 Oximetry - Lab 05/28/21 Unknown 05/28/21 05:30 Most recent lab results ABG pH 7.300 pH Units (7.350-7.450) L 05/27/21 10:15 ABG pCO2 54.0 mm Hg 05/27/21 10:15 ABG pO2 42.1 mm Hg (80.0-90.0) L 05/27/21 10:15 ABG HCO3 26.0 mmol/L (20.0-26.0) 05/27/21 10:15 ABG O2 Saturation 72.8 % (95.0-99.0) L 05/27/21 10:15 Calcium 8.0 mg/dL (8.4-10.2) L 05/28/21 05:30 Phosphorus 2.90 mg/dL (2.5-4.5) 05/28/21 05:30 Magnesium 2.40 mg/dL (1.7-2.3) H 05/28/21 05:30 Urine Creatinine 128.6 mg/dL (0.1-20.0) H 05/26/21 Unknown Urine Sodium 37 mmol/L 05/26/21 Unknown Medications & Allergies - Medications Allergies/Adverse Reactions: Allergies No Known Allergies Allergy (Unverified 05/25/21 12:48) Home Medications: Home Medications Medication Instructions Recorded Confirmed Last Taken Type Amoxicillin [Amoxicillin TAB] 875 mg PO BID #20 tablet 11/12/14 Unknown Rx Active Medications: Generic Name Dose Route Start Last Admin Trade Name Freq PRN Reason Stop Dose Admin Acetaminophen 650 mg 05/23/21 20:42 Acetaminophen 325 Mg Tab PO Q4H PRN Pain MILD(1-3)/Fever >100.5/CASTORENA Albuterol 2.5 mg 05/23/21 21:11 Albuterol 2.5 Mg/3 Ml Nebu IH Q4HRT PRN Shortness Of Breath Albuterol/Ipratropium 1 ampul 05/24/21 08:00 05/28/21 08:11 Ipratropium/Albuterol Sulfate 3 Ml Ampul.Neb IH 1 ampul QIDRT ROSEMARIE Administration Lipase/Protease/Amylase 1 each 05/24/21 10:14 Lipase 10,500/Protease 25,000/Amylase 43,750 (Units) Dr Higgins FEEDTUBE PRN PRN For Clogged Feeding Tube Famotidine 20 mg 05/27/21 10:00 05/28/21 10:44 Famotidine 20 Mg Tab FEEDTUBE 20 mg BID ROSEMARIE Administration Fentanyl 50 mcg 05/23/21 12:34 05/23/21 18:50 Fentanyl 100 Mcg/2 Ml Inj IV 50 mcg Q10MIN PRN Administration ANALGESIA Heparin Sodium (Porcine) 5,000 unit 05/23/21 20:00 05/28/21 06:15 Heparin 5,000 Unit/1 Ml Vial SUB-Q 5,000 unit Q8HR ROSEMARIE Administration Hydrophilic Ointment 1 applic 05/23/21 12:34 Lip Therapy Vaseline TP Q2HR PRN Dry Lips Fentanyl Citrate 2,000 mcg in 100 mls @ 8.528 mls/hr 05/23/21 13:00 05/28/21 07:44 Fentanyl Drip Premix IV 3 mcg/kg/hr TITR ROSEMARIE 25.583 mls/hr Administration Protocol 1 MCG/KG/HR NORepinephrine/NS 8 MG-250 ML 8 mg in 250 mls @ 3.75 mls/hr 05/24/21 20:00 05/25/21 15:20 Norepinephrine/Ns 8 Mg-250 Ml (Double Conc) IV 0 mcg/min TITRATE ROSEMARIE 0 mls/hr Titration Protocol 2 MCG/MIN Propofol 1,000 mg in 100 mls @ 5.117 mls/hr 05/25/21 19:00 05/28/21 08:15 Diprivan 10 Mg/Ml IV 30 mcg/kg/min TITR ROSEMARIE 30.699 mls/hr Titration Protocol 5 MCG/KG/MIN Methylprednisolone Sodium Succinate 40 mg 05/28/21 10:00 05/28/21 10:44 Methylprednisolone Sod Succinate 40 Mg/1 Ml Inj IV 05/29/21 10:01 40 mg Q24HR ROSEMARIE Administration Multi-Ingred Cream/Lotion/Oil/Oint 1 applic 05/23/21 12:34 Mineral Oil/Petrolatum, White Ophth Oint 3.5 Gm OU Q4HR PRN Dry Eye(s) Ondansetron HCl 4 mg 05/23/21 20:42 Ondansetron 4 Mg/2 Ml Inj IV Q8H PRN Nausea And Vomiting Senna/Docusate Sodium 1 tab 05/23/21 22:00 05/28/21 10:44 Sennosides/Docusate Sodium 8.6/50 Mg Tab FEEDTUBE 1 tab BID ROSEMARIE Administration Simple Syrup 15 ml 05/24/21 10:14 Simple Syrup 15 Ml FEEDTUBE PRN PRN Hypoglycemia Simple Syrup 30 ml 05/24/21 10:14 Simple Syrup 15 Ml FEEDTUBE PRN PRN Hypoglycemia Sodium Bicarbonate 325 mg 05/24/21 10:14 Sodium Bicarbonate 325 Mg Tab FEEDTUBE PRN PRN For Clogged Feeding Tube Sodium Chloride 10 ml 05/23/21 22:00 05/28/21 10:45 Sodium Chloride 0.9% 10 Ml Flush Syringe IV 10 ml BID ROSEMARIE Administration Sodium Chloride 10 ml 05/23/21 20:42 Sodium Chloride 0.9% 10 Ml Flush Syringe IV PRN PRN LINE FLUSH
--- NOTE | 2021-05-28 12:19 | Progress Note ---
Assessment and Plan - Patient Problems (1) Acute respiratory failure Current Visit: Yes Status: Acute Plan to address problem: 41-year-old man who is morbidly obese, weighing over 375 pounds, admitted with acute respiratory failure. Cardiology consultation was requested for assessment of heart failure, chest x-ray showed a normal-sized cardiac silhouette and clear lungs. EKG was sinus with an incomplete right bundle branch block. There are no clinical signs or echocardiographic findings of left-sided heart failure. Left ventricular ejection fraction was 55%. Conversely there was dilatation of the right heart chambers, moderate tricuspid regurgitation and at least moderate pulmonary hypertension with a pulmonary artery systolic pressure of 53. Findings suggest the presence of chronic cor pulmonale, likely associated with COPD and possible sleep apnea. We will continue conservative cardiac management as previously outlined. Subjective Date of service: 05/28/21 Principal diagnosis: Acute hypoxemic and hypercapnic resp failure; PUI COVID-19; Pneumonia; FERMIN Interval history: Patient is unresponsive, on the vent. On phototypesetting equipment monitor, there is mild sinus tachycardia at 113, systolic blood pressure is 104, off pressors. Objective Vital Signs Temp Pulse Pulse Resp Resp BP Pulse Ox 05/28/21 12:01 97.3 F L 05/28/21 12:00 90 24 89/49 92 05/28/21 11:45 91 H 18 86/48 91 05/28/21 11:30 94 H 25 H 90/49 91 05/28/21 11:15 101 H 25 H 94/50 91 05/28/21 11:00 110 H 25 H 96/56 92 05/28/21 10:45 111 H 25 H 92/56 91 05/28/21 10:30 136 H 25 H 118/76 89 05/28/21 10:15 112 H 25 H 104/66 90 05/28/21 10:00 120 H 25 H 103/67 90 05/28/21 09:45 114 H 25 H 95/62 89 05/28/21 09:30 116 H 25 H 87/40 89 05/28/21 09:15 111 H 25 H 99/59 89 05/28/21 09:00 107 H 24 97/57 91 05/28/21 08:45 108 H 25 H 96/56 91 05/28/21 08:30 102 H 24 108/59 92 05/28/21 08:15 99 H 23 112/65 91 05/28/21 08:11 101 H 25 H 05/28/21 08:09 94 H 93 05/28/21 08:00 85 25 H 106/58 94 05/28/21 07:45 114 H 16 123/84 92 05/28/21 07:30 65 25 H 104/58 96 05/28/21 07:23 97.3 F L 05/28/21 07:15 63 25 H 104/58 96 05/28/21 07:00 67 25 H 104/58 96 05/28/21 06:45 63 25 H 103/58 96 05/28/21 06:30 64 24 104/57 96 05/28/21 06:15 65 25 H 102/56 96 05/28/21 06:00 64 25 H 103/56 95 05/28/21 05:45 67 25 H 101/56 94 05/28/21 05:30 70 25 H 101/54 93 05/28/21 05:15 73 25 H 104/59 92 05/28/21 05:08 72 90 05/28/21 05:00 85 25 H 110/62 92 05/28/21 04:45 64 25 H 110/62 97 05/28/21 04:30 65 25 H 111/61 97 05/28/21 04:15 64 25 H 108/59 97 05/28/21 04:00 97.3 F L 64 25 H 105/59 96 05/28/21 03:45 64 25 H 106/56 96 05/28/21 03:30 66 25 H 104/59 95 05/28/21 03:15 66 25 H 106/61 96 05/28/21 03:00 67 25 H 107/59 96 05/28/21 02:45 65 25 H 107/57 95 05/28/21 02:30 67 25 H 104/57 95 05/28/21 02:15 69 25 H 104/58 96 05/28/21 02:00 69 25 H 104/57 95 05/28/21 01:45 70 25 H 103/56 95 05/28/21 01:30 70 25 H 102/54 95 05/28/21 01:15 78 26 H 103/54 95 05/28/21 01:00 82 24 102/54 95 05/28/21 00:50 86 05/28/21 00:45 83 25 H 102/55 95 05/28/21 00:30 74 25 H 112/62 90 05/28/21 00:15 94 H 25 H 104/56 94 05/28/21 00:00 98.1 F 97 H 25 H 103/59 93 05/27/21 23:57 96 H 25 H 130/87 93 05/27/21 23:45 129 H 25 H 119/71 78 L 05/27/21 23:30 101 H 26 H 119/71 91 05/27/21 23:15 96 H 25 H 94/48 92 05/27/21 23:00 83 25 H 99/50 93 05/27/21 22:45 80 25 H 104/52 93 05/27/21 22:30 83 25 H 100/52 93 05/27/21 22:15 83 25 H 99/50 93 05/27/21 22:00 83 25 H 103/53 93 05/27/21 21:45 85 25 H 102/51 93 05/27/21 21:30 84 25 H 104/51 94 05/27/21 21:15 84 25 H 103/53 93 05/27/21 21:00 83 25 H 103/52 93 05/27/21 20:45 81 25 H 103/53 93 05/27/21 20:33 88 25 H 05/27/21 20:30 84 25 H 102/52 91 05/27/21 20:29 83 102/52 92 05/27/21 20:15 89 25 H 98/51 91 05/27/21 20:00 97.0 F L 86 25 H 103/55 90 05/27/21 19:45 84 20 99/54 90 05/27/21 19:30 83 21 102/54 91 05/27/21 19:15 91 H 20 106/56 90 05/27/21 19:00 87 25 H 102/56 91 05/27/21 18:00 98 H 25 H 106/59 90 05/27/21 17:45 99 H 25 H 98/57 90 05/27/21 17:30 127 H 18 103/63 83 L 05/27/21 17:15 94 H 25 H 114/69 93 05/27/21 17:00 101 H 0 L 110/61 89 05/27/21 16:49 102 H 25 H 11/03/21 16:45 113 H 25 H 113/69 87 05/27/21 16:30 97 H 16 112/67 91 05/27/21 16:15 137 H 19 126/81 87 05/27/21 16:00 98.2 F 127 H 25 H 127/81 84 05/27/21 15:45 86 25 H 111/61 90 05/27/21 15:30 100 H 25 H 108/62 89 05/27/21 15:15 82 25 H 106/55 91 05/27/21 15:00 86 24 104/57 91 05/27/21 14:45 108 H 24 123/75 89 05/27/21 14:30 78 6 L 107/52 91 05/27/21 14:15 74 7 L 106/50 90 05/27/21 14:00 76 19 121/61 92 05/27/21 13:45 78 0 L 110/58 92 05/27/21 13:30 81 10 L 111/56 93 05/27/21 13:23 85 25 H 05/27/21 13:21 84 109/60 91 05/27/21 13:15 87 25 H 109/60 91 05/27/21 13:00 91 H 16 106/59 91 05/27/21 12:45 76 19 111/60 90 05/27/21 12:30 80 16 113/61 90 - Physical Examination General: Other (Unresponsive, on the vent) HEENT: Positive: Normocephaly Neck: Positive: neck supple Cardiac: Positive: Regular Rhythm Lungs: Positive: Decreased Breath Sounds Neuro: Positive: Other (Unresponsive, on the vent) Abdomen: Positive: Soft Skin: Positive: Clear Extremities: Present: +1 Edema - Labs and Meds CBC 05/28/21 Range/Units Unknown WBC 5.7 (4.5-11.0) K/mm3 RBC 4.08 (3.65-5.03) M/mm3 Hgb 11.7 L (11.8-15.2) gm/dl Hct 38.4 (35.5-45.6) % Plt Count 121 L (140-440) K/mm3 Comprehensive Metabolic Panel 05/28/21 Range/Units 05:30 Sodium 138 (137-145) mmol/L Potassium 4.2 (3.6-5.0) mmol/L Chloride 104.8 (98-107) mmol/L Carbon Dioxide 23 (22-30) mmol/L BUN 53 H (9-20) mg/dL Creatinine 1.6 H (0.8-1.3) mg/dL Glucose 118 H (75-100) mg/dL Calcium 8.0 L (8.4-10.2) mg/dL - Imaging and Cardiology EKG: report reviewed (Sinus tachycardia no acute ST-T wave changes) - Allied health notes Allied health notes reviewed: nursing
[2021-05-28 13:44] LABS: ABG Base Excess -1.3 mmol/L (-2.0-3.0); ABG HCO3 24.8 mmol/L (20.0-26.0); ABG Methemoglobin 0.6 % (0.0-1.5); ABG Oxygen Saturation 86.5 % (95.0-99.0); ABG PCO2 47.2 mm Hg; ABG PH 7.339 pH Units (7.350-7.450); ABG PO2 53.7 mm Hg (80.0-90.0)
--- NOTE | 2021-05-28 14:15 | Progress Note ---
Assessment and Plan Acute possibly on chronic hypoxemic and hypercapnic respiratory failure Pneumonia, community-acquired Acute toxic metabolic encephalopathy Person under investigation for COVID-19 Morbid obesity Obstructive sleep apnea History of hypertension Acute kidney injury Hyperkalemia Elevated serum transaminases Possible shock liver Hyperammonemia Non-ST elevation myocardial infarction - will begin empiric Revatio re: pulm HTN - will repeat Lasix 40 mg IV X 1 (continue conservative volume management strategies) - keep peep at 14 cm H2O - repeat ABG at 9 am tomorrow - prn vasopressors for target MAP > 65 mmHg - nephrology input appreciated - continue care as below otherwise; - continue Daily SAT and SBT assessment as tolerated - continue to wean supplemental oxygen for target O2 sat's > 90% acutely - VAP bundle addressed - continue lung protective strategies - continue bronchodilators with pulmonary hygiene per RT - wean per pulmonary driven protocols otherwise - avoid nephrotoxins, renally dose all medications - continue accuchecks with glycemic control per SSI (While critically ill target blood glucose of 140-180 mg/dL; avoid hypoglycemia) - sedation prn for target RASS 0 to -1 - continue to avoid benzodiazepine's, reduce the possibility of delirium - AB's per ID rec's - prn analgesia per CPOT score - Maintenance of sleep-wake cycle, avoid delirium - continue enteral nutritional support at goal rate as tolerated - G.I. & VTE prophylaxis - PT/OT/ROM exercises - continue mobility protocols for pressure ulcer prophylaxis - Monitor hemodynamics closely - continue other care per attending / other consultants - discharge planning ongoing concurrently COVID SPECIFIC INTERVENTIONS - COVID-19 test result pending .... Re-evaluate in am & prn CONDITION: CRITICAL PROGNOSIS: GUARDED CODE STATUS: FULL CODE The high probability of a clinically significant, sudden or life-threatening deterioration of the [respiratory, cardiovascular, renal & neurologic] system(s) required my full and direct attention, intervention and personal management. The aggregate critical care time was [32] minutes without overlap. Time includes spent on; [x] Data Review and interpretation [x] Patient assessment and monitoring of vital signs [x] Documentation [x] Medication orders and management Subjective Date of service: 05/28/21 Principal diagnosis: Acute hypoxemic and hypercapnic resp failure; PUI COVID-19; Pneumonia; FERMIN Interval history: Patient is seen today for: Acute hypoxemic and hypercapnic respiratory failure; PUI NCOVID-19; Pneumonia; CAP; FERMIN; REVA Seen and examined at bedside; 24hour events reviewed; nursing and respiratory care staff consulted; no adverse overnight events reported to me; remaions on MVS; good diuresis with lasix (put out 2.25 liters); no N/V/F/C and no gross bleeding; still on 80% FiO2 and with ARDS Objective Vital Signs - 12hr 05/28/21 05/28/21 05/28/21 02:15 02:30 02:45 Temperature Pulse Rate 69 67 65 Pulse Rate [ Anterior Bilateral Throughout] Respiratory 25 H 25 H 25 H Rate Respiratory Rate [Anterior Bilateral Throughout] Blood Pressure 104/58 104/57 107/57 O2 Sat by Pulse 96 95 95 Oximetry 05/28/21 05/28/21 05/28/21 03:00 03:15 03:30 Temperature Pulse Rate 67 66 66 Pulse Rate [ Anterior Bilateral Throughout] Respiratory 25 H 25 H 25 H Rate Respiratory Rate [Anterior Bilateral Throughout] Blood Pressure 107/59 106/61 104/59 O2 Sat by Pulse 96 96 95 Oximetry 05/28/21 05/28/21 05/28/21 03:45 04:00 04:15 Temperature 97.3 F L Pulse Rate 64 64 64 Pulse Rate [ Anterior Bilateral Throughout] Respiratory 25 H 25 H 25 H Rate Respiratory Rate [Anterior Bilateral Throughout] Blood Pressure 106/56 105/59 108/59 O2 Sat by Pulse 96 96 97 Oximetry 05/28/21 05/28/21 05/28/21 04:30 04:45 05:00 Temperature Pulse Rate 65 64 85 Pulse Rate [ Anterior Bilateral Throughout] Respiratory 25 H 25 H 25 H Rate Respiratory Rate [Anterior Bilateral Throughout] Blood Pressure 111/61 110/62 110/62 O2 Sat by Pulse 97 97 92 Oximetry 05/28/21 05/28/21 05/28/21 05:08 05:15 05:30 Temperature Pulse Rate 72 73 70 Pulse Rate [ Anterior Bilateral Throughout] Respiratory 25 H 25 H Rate Respiratory Rate [Anterior Bilateral Throughout] Blood Pressure 104/59 101/54 O2 Sat by Pulse 90 92 93 Oximetry 05/28/21 05/28/21 05/28/21 05:45 06:00 06:15 Temperature Pulse Rate 67 64 65 Pulse Rate [ Anterior Bilateral Throughout] Respiratory 25 H 25 H 25 H Rate Respiratory Rate [Anterior Bilateral Throughout] Blood Pressure 101/56 103/56 102/56 O2 Sat by Pulse 94 95 96 Oximetry 05/28/21 05/28/21 05/28/21 06:30 06:45 07:00 Temperature Pulse Rate 64 63 67 Pulse Rate [ Anterior Bilateral Throughout] Respiratory 24 25 H 25 H Rate Respiratory Rate [Anterior Bilateral Throughout] Blood Pressure 104/57 103/58 104/58 O2 Sat by Pulse 96 96 96 Oximetry 05/28/21 05/28/21 05/28/21 07:15 07:23 07:30 Temperature 97.3 F L Pulse Rate 63 65 Pulse Rate [ Anterior Bilateral Throughout] Respiratory 25 H 25 H Rate Respiratory Rate [Anterior Bilateral Throughout] Blood Pressure 104/58 104/58 O2 Sat by Pulse 96 96 Oximetry 05/28/21 05/28/21 05/28/21 07:45 08:00 08:09 Temperature Pulse Rate 114 H 85 94 H Pulse Rate [ Anterior Bilateral Throughout] Respiratory 16 25 H Rate Respiratory Rate [Anterior Bilateral Throughout] Blood Pressure 123/84 106/58 O2 Sat by Pulse 92 94 93 Oximetry 05/28/21 05/28/21 05/28/21 08:11 08:15 08:30 Temperature Pulse Rate 99 H 102 H Pulse Rate [ 101 H Anterior Bilateral Throughout] Respiratory 23 24 Rate Respiratory 25 H Rate [Anterior Bilateral Throughout] Blood Pressure 112/65 108/59 O2 Sat by Pulse 91 92 Oximetry 05/28/21 05/28/21 05/28/21 08:45 09:00 09:15 Temperature Pulse Rate 108 H 107 H 111 H Pulse Rate [ Anterior Bilateral Throughout] Respiratory 25 H 24 25 H Rate Respiratory Rate [Anterior Bilateral Throughout] Blood Pressure 96/56 97/57 99/59 O2 Sat by Pulse 91 91 89 Oximetry 05/28/21 05/28/21 05/28/21 09:30 09:45 10:00 Temperature Pulse Rate 116 H 114 H 120 H Pulse Rate [ Anterior Bilateral Throughout] Respiratory 25 H 25 H 25 H Rate Respiratory Rate [Anterior Bilateral Throughout] Blood Pressure 87/40 95/62 103/67 O2 Sat by Pulse 89 89 90 Oximetry 05/28/21 05/28/21 05/28/21 10:15 10:30 10:45 Temperature Pulse Rate 112 H 136 H 111 H Pulse Rate [ Anterior Bilateral Throughout] Respiratory 25 H 25 H 25 H Rate Respiratory Rate [Anterior Bilateral Throughout] Blood Pressure 104/66 118/76 92/56 O2 Sat by Pulse 90 89 91 Oximetry 05/28/21 05/28/21 05/28/21 11:00 11:15 11:30 Temperature Pulse Rate 110 H 101 H 94 H Pulse Rate [ Anterior Bilateral Throughout] Respiratory 25 H 25 H 25 H Rate Respiratory Rate [Anterior Bilateral Throughout] Blood Pressure 96/56 94/50 90/49 O2 Sat by Pulse 92 91 91 Oximetry 05/28/21 05/28/21 05/28/21 11:45 12:00 12:01 Temperature 97.3 F L Pulse Rate 91 H 90 Pulse Rate [ Anterior Bilateral Throughout] Respiratory 18 24 Rate Respiratory Rate [Anterior Bilateral Throughout] Blood Pressure 86/48 89/49 O2 Sat by Pulse 91 95 Oximetry 05/28/21 05/28/21 05/28/21 12:15 12:30 12:45 Temperature Pulse Rate 86 87 89 Pulse Rate [ Anterior Bilateral Throughout] Respiratory 25 H 25 H 25 H Rate Respiratory Rate [Anterior Bilateral Throughout] Blood Pressure 95/52 99/54 98/58 O2 Sat by Pulse 91 92 92 Oximetry 05/28/21 05/28/21 05/28/21 12:57 12:58 13:00 Temperature Pulse Rate 84 82 Pulse Rate [ 84 Anterior Bilateral Throughout] Respiratory 25 H Rate Respiratory 25 H Rate [Anterior Bilateral Throughout] Blood Pressure 98/58 103/56 O2 Sat by Pulse 92 93 Oximetry 05/28/21 13:15 Temperature Pulse Rate 92 H Pulse Rate [ Anterior Bilateral Throughout] Respiratory 25 H Rate Respiratory Rate [Anterior Bilateral Throughout] Blood Pressure 108/58 O2 Sat by Pulse 89 Oximetry Constitutional: no acute distress, other (middle aged morbidly obese male with mildly increased respiratory effort at rest on MVS) Eyes: non-icteric ENT: oropharynx moist, other (ETT 24 cm FRANCIS) Neck: supple, no lymphadenopathy, no JVD Effort: mildly labored Ascultation: Bilateral: diminished breath sounds, rhonchi Percussion: Bilateral: not dull Cardiovascular: regular rate and rhythm Gastrointestinal: normoactive bowel sounds, soft, non-tender, non-distended Integumentary: rash (stasis dermatitis) Extremities: no cyanosis, pulses normal, no ischemia or petechiae, edema (trace) Neurologic: non-focal exam (grossly), pupils equal and round, unable to assess, other (sedated) Psychiatric: other (unable to assess re: AMS) CBC and BMP: 05/28/21 Unknown 05/28/21 05:30 ABG, PT/INR, D-dimer: ABG ABG pH 7.339 pH Units (7.350-7.450) L 05/28/21 13:32 POC ABG pCO2 40.1 mmHg (32.0-48.0) 05/26/21 21:00 ABG pCO2 47.2 mm Hg 05/28/21 13:32 POC ABG pO2 56.7 mmHg (83-108) L 05/26/21 21:00 ABG pO2 53.7 mm Hg (80.0-90.0) L 05/28/21 13:32 POC ABG HCO3 23.8 05/26/21 21:00 ABG O2 Saturation 86.5 % (95.0-99.0) L 05/28/21 13:32 PT/INR, D-dimer PT 18.1 Sec. (12.2-14.9) H 05/23/21 15:09 INR 1.36 (0.87-1.13) H 05/23/21 15:09 D-Dimer 4444.85 ng/mlDDU (0-234) H 05/23/21 15:09 Abnormal lab findings: Abnormal Labs 05/23/21 05/23/21 05/23/21 15:00 15:09 15:09 WBC Hgb MCV 95 H MCHC 30 L RDW 20.1 H Plt Count Lymph % (Auto) 5.9 L Lymph # (Auto) 0.6 L Seg Neutrophils % 87.5 H Seg Neuts % (Manual) Lymphocytes % (Manual) Seg Neutrophils # 8.2 H Seg Neutrophils # Man Lymphocytes # (Manual) PT 18.1 H INR 1.36 H APTT 23.1 L D-Dimer ABG pH 7.215 L POC ABG pCO2 POC ABG pO2 ABG pO2 ABG HCO3 28.4 H ABG O2 Saturation ABG Base Excess ABG Hemoglobin 13.5 L ABG Oxyhemoglobin ABG Potassium ABG Glucose Oxyhemoglobin 92.6 L Potassium Carbon Dioxide BUN Creatinine Glucose POC Glucose Calcium Magnesium AST ALT Ammonia Total Creatine Kinase Troponin T C-Reactive Protein NT-Pro-B Natriuret Pep Albumin HDL Cholesterol Arterial Blood Glucose Urine WBC (Auto) Urine Creatinine Salicylates Acetaminophen 05/23/21 05/23/21 05/23/21 15:09 15:09 15:09 WBC Hgb MCV MCHC RDW Plt Count Lymph % (Auto) Lymph # (Auto) Seg Neutrophils % Seg Neuts % (Manual) Lymphocytes % (Manual) Seg Neutrophils # Seg Neutrophils # Man Lymphocytes # (Manual) PT INR APTT D-Dimer ABG pH POC ABG pCO2 POC ABG pO2 ABG pO2 ABG HCO3 ABG O2 Saturation ABG Base Excess ABG Hemoglobin ABG Oxyhemoglobin ABG Potassium ABG Glucose Oxyhemoglobin Potassium 5.2 H Carbon Dioxide BUN 40 H Creatinine 3.2 H Glucose 133 H POC Glucose Calcium Magnesium AST 1094 H ALT 1089 H Ammonia 75.0 H Total Creatine Kinase Troponin T 0.038 H C-Reactive Protein NT-Pro-B Natriuret Pep Albumin 3.0 L HDL Cholesterol 29 L Arterial Blood Glucose Urine WBC (Auto) Urine Creatinine Salicylates < 0.3 L Acetaminophen 05/23/21 05/23/21 05/23/21 15:09 15:09 15:09 WBC Hgb MCV MCHC RDW Plt Count Lymph % (Auto) Lymph # (Auto) Seg Neutrophils % Seg Neuts % (Manual) Lymphocytes % (Manual) Seg Neutrophils # Seg Neutrophils # Man Lymphocytes # (Manual) PT INR APTT D-Dimer 4444.85 H ABG pH POC ABG pCO2 POC ABG pO2 ABG pO2 ABG HCO3 ABG O2 Saturation ABG Base Excess ABG Hemoglobin ABG Oxyhemoglobin ABG Potassium ABG Glucose Oxyhemoglobin Potassium Carbon Dioxide BUN Creatinine Glucose POC Glucose Calcium Magnesium AST ALT Ammonia Total Creatine Kinase 48 L Troponin T C-Reactive Protein NT-Pro-B Natriuret Pep 00697 H Albumin HDL Cholesterol Arterial Blood Glucose Urine WBC (Auto) Urine Creatinine Salicylates Acetaminophen 5.0 L 05/23/21 05/23/21 05/23/21 19:10 20:48 Unknown WBC Hgb MCV MCHC RDW Plt Count Lymph % (Auto) Lymph # (Auto) Seg Neutrophils % Seg Neuts % (Manual) Lymphocytes % (Manual) Seg Neutrophils # Seg Neutrophils # Man Lymphocytes # (Manual) PT INR APTT D-Dimer ABG pH 7.332 L POC ABG pCO2 POC ABG pO2 ABG pO2 74.0 L ABG HCO3 ABG O2 Saturation 94.4 L ABG Base Excess ABG Hemoglobin 12.5 L ABG Oxyhemoglobin ABG Potassium ABG Glucose Oxyhemoglobin 92.3 L Potassium Carbon Dioxide BUN Creatinine Glucose POC Glucose Calcium Magnesium AST ALT Ammonia Total Creatine Kinase Troponin T C-Reactive Protein 10.00 H NT-Pro-B Natriuret Pep Albumin HDL Cholesterol Arterial Blood Glucose Urine WBC (Auto) 34.0 H Urine Creatinine Salicylates Acetaminophen 05/24/21 05/24/21 05/24/21 04:55 04:55 09:15 WBC Hgb MCV 95 H MCHC 31 L RDW 19.4 H Plt Count Lymph % (Auto) Lymph # (Auto) Seg Neutrophils % Seg Neuts % (Manual) 97.0 H Lymphocytes % (Manual) 3.0 L Seg Neutrophils # Seg Neutrophils # Man 8.4 H Lymphocytes # (Manual) 0.3 L PT INR APTT D-Dimer ABG pH POC ABG pCO2 POC ABG pO2 ABG pO2 90.6 H ABG HCO3 ABG O2 Saturation ABG Base Excess -3.7 L ABG Hemoglobin 13.5 L ABG Oxyhemoglobin ABG Potassium ABG Glucose Oxyhemoglobin Potassium 5.5 H Carbon Dioxide 20 L BUN 39 H Creatinine 2.2 H Glucose 155 H POC Glucose Calcium 8.3 L Magnesium AST 571 H ALT 951 H Ammonia Total Creatine Kinase Troponin T C-Reactive Protein NT-Pro-B Natriuret Pep Albumin 3.2 L HDL Cholesterol Arterial Blood Glucose Urine WBC (Auto) Urine Creatinine Salicylates Acetaminophen 05/25/21 05/25/21 05/25/21 04:20 14:37 14:37 WBC Hgb MCV 96 H MCHC 30 L RDW 20.7 H Plt Count Lymph % (Auto) Lymph # (Auto) Seg Neutrophils % Seg Neuts % (Manual) Lymphocytes % (Manual) Seg Neutrophils # Seg Neutrophils # Man Lymphocytes # (Manual) PT INR APTT D-Dimer ABG pH 7.222 L POC ABG pCO2 57.8 H POC ABG pO2 67.3 L ABG pO2 ABG HCO3 ABG O2 Saturation ABG Base Excess ABG Hemoglobin ABG Oxyhemoglobin 89.1 L ABG Potassium 5.1 H ABG Glucose 182 H Oxyhemoglobin Potassium 5.3 H Carbon Dioxide BUN 47 H Creatinine 2.0 H Glucose 154 H POC Glucose Calcium Magnesium AST 93 H ALT 590 H Ammonia Total Creatine Kinase Troponin T C-Reactive Protein NT-Pro-B Natriuret Pep Albumin 3.6 L HDL Cholesterol Arterial Blood Glucose 182 H Urine WBC (Auto) Urine Creatinine Salicylates Acetaminophen 05/25/21 05/25/21 05/26/21 21:50 23:30 05:31 WBC Hgb MCV MCHC RDW Plt Count Lymph % (Auto) Lymph # (Auto) Seg Neutrophils % Seg Neuts % (Manual) Lymphocytes % (Manual) Seg Neutrophils # Seg Neutrophils # Man Lymphocytes # (Manual) PT INR APTT D-Dimer ABG pH 7.328 L POC ABG pCO2 POC ABG pO2 ABG pO2 63.3 L ABG HCO3 ABG O2 Saturation 92.1 L ABG Base Excess -2.4 L ABG Hemoglobin 11.3 L ABG Oxyhemoglobin ABG Potassium ABG Glucose Oxyhemoglobin 90.3 L Potassium Carbon Dioxide BUN Creatinine Glucose POC Glucose 131 H 123 H Calcium Magnesium AST ALT Ammonia Total Creatine Kinase Troponin T C-Reactive Protein NT-Pro-B Natriuret Pep Albumin HDL Cholesterol Arterial Blood Glucose Urine WBC (Auto) Urine Creatinine Salicylates Acetaminophen 05/26/21 05/26/21 05/26/21 09:02 10:57 17:30 WBC Hgb MCV MCHC RDW Plt Count Lymph % (Auto) Lymph # (Auto) Seg Neutrophils % Seg Neuts % (Manual) Lymphocytes % (Manual) Seg Neutrophils # Seg Neutrophils # Man Lymphocytes # (Manual) PT INR APTT D-Dimer ABG pH 7.346 L POC ABG pCO2 POC ABG pO2 ABG pO2 60.5 L ABG HCO3 ABG O2 Saturation 90.7 L ABG Base Excess ABG Hemoglobin 13.1 L ABG Oxyhemoglobin ABG Potassium ABG Glucose Oxyhemoglobin 88.9 L Potassium Carbon Dioxide BUN Creatinine Glucose POC Glucose 127 H 141 H Calcium Magnesium AST ALT Ammonia Total Creatine Kinase Troponin T C-Reactive Protein NT-Pro-B Natriuret Pep Albumin HDL Cholesterol Arterial Blood Glucose Urine WBC (Auto) Urine Creatinine Salicylates Acetaminophen 05/26/21 05/26/21 05/26/21 21:00 Unknown Unknown WBC 4.2 L Hgb 11.7 L MCV MCHC 31 L RDW 20.3 H Plt Count 132 L Lymph % (Auto) Lymph # (Auto) Seg Neutrophils % Seg Neuts % (Manual) Lymphocytes % (Manual) Seg Neutrophils # Seg Neutrophils # Man Lymphocytes # (Manual) PT INR APTT D-Dimer ABG pH POC ABG pCO2 POC ABG pO2 56.7 L ABG pO2 ABG HCO3 ABG O2 Saturation ABG Base Excess ABG Hemoglobin ABG Oxyhemoglobin 88.8 L ABG Potassium 4.7 H ABG Glucose 152 H Oxyhemoglobin Potassium 5.2 H Carbon Dioxide BUN 47 H Creatinine 2.0 H Glucose 136 H POC Glucose Calcium Magnesium AST 64 H ALT 448 H Ammonia Total Creatine Kinase Troponin T C-Reactive Protein NT-Pro-B Natriuret Pep Albumin 3.4 L HDL Cholesterol Arterial Blood Glucose 152 H Urine WBC (Auto) Urine Creatinine Salicylates Acetaminophen 05/26/21 05/27/21 05/27/21 Unknown 08:00 08:00 WBC 4.2 L Hgb MCV MCHC RDW 21.2 H Plt Count 126 L Lymph % (Auto) Lymph # (Auto) Seg Neutrophils % Seg Neuts % (Manual) Lymphocytes % (Manual) Seg Neutrophils # Seg Neutrophils # Man Lymphocytes # (Manual) PT INR APTT D-Dimer ABG pH POC ABG pCO2 POC ABG pO2 ABG pO2 ABG HCO3 ABG O2 Saturation ABG Base Excess ABG Hemoglobin ABG Oxyhemoglobin ABG Potassium ABG Glucose Oxyhemoglobin Potassium Carbon Dioxide BUN 52 H Creatinine 1.8 H Glucose 171 H POC Glucose Calcium 8.3 L Magnesium AST ALT Ammonia Total Creatine Kinase Troponin T C-Reactive Protein NT-Pro-B Natriuret Pep Albumin HDL Cholesterol Arterial Blood Glucose Urine WBC (Auto) Urine Creatinine 128.6 H Salicylates Acetaminophen 05/27/21 05/27/21 05/27/21 10:15 11:48 17:13 WBC Hgb MCV MCHC RDW Plt Count Lymph % (Auto) Lymph # (Auto) Seg Neutrophils % Seg Neuts % (Manual) Lymphocytes % (Manual) Seg Neutrophils # Seg Neutrophils # Man Lymphocytes # (Manual) PT INR APTT D-Dimer ABG pH 7.300 L POC ABG pCO2 POC ABG pO2 ABG pO2 42.1 L ABG HCO3 ABG O2 Saturation 72.8 L ABG Base Excess ABG Hemoglobin 12.7 L ABG Oxyhemoglobin ABG Potassium ABG Glucose Oxyhemoglobin 71.4 L Potassium Carbon Dioxide BUN Creatinine Glucose POC Glucose 139 H 145 H Calcium Magnesium AST ALT Ammonia Total Creatine Kinase Troponin T C-Reactive Protein NT-Pro-B Natriuret Pep Albumin HDL Cholesterol Arterial Blood Glucose Urine WBC (Auto) Urine Creatinine Salicylates Acetaminophen 05/28/21 05/28/21 05/28/21 05:30 11:37 13:32 WBC Hgb MCV MCHC RDW Plt Count Lymph % (Auto) Lymph # (Auto) Seg Neutrophils % Seg Neuts % (Manual) Lymphocytes % (Manual) Seg Neutrophils # Seg Neutrophils # Man Lymphocytes # (Manual) PT INR APTT D-Dimer ABG pH 7.339 L POC ABG pCO2 POC ABG pO2 ABG pO2 53.7 L ABG HCO3 ABG O2 Saturation 86.5 L ABG Base Excess ABG Hemoglobin 12.3 L ABG Oxyhemoglobin ABG Potassium ABG Glucose Oxyhemoglobin 84.6 L Potassium Carbon Dioxide BUN 53 H Creatinine 1.6 H Glucose 118 H POC Glucose 115 H Calcium 8.0 L Magnesium 2.40 H AST ALT Ammonia Total Creatine Kinase Troponin T C-Reactive Protein NT-Pro-B Natriuret Pep Albumin HDL Cholesterol Arterial Blood Glucose Urine WBC (Auto) Urine Creatinine Salicylates Acetaminophen 05/28/21 Unknown WBC Hgb 11.7 L MCV MCHC 31 L RDW 21.3 H Plt Count 121 L Lymph % (Auto) Lymph # (Auto) Seg Neutrophils % Seg Neuts % (Manual) Lymphocytes % (Manual) Seg Neutrophils # Seg Neutrophils # Man Lymphocytes # (Manual) PT INR APTT D-Dimer ABG pH POC ABG pCO2 POC ABG pO2 ABG pO2 ABG HCO3 ABG O2 Saturation ABG Base Excess ABG Hemoglobin ABG Oxyhemoglobin ABG Potassium ABG Glucose Oxyhemoglobin Potassium Carbon Dioxide BUN Creatinine Glucose POC Glucose Calcium Magnesium AST ALT Ammonia Total Creatine Kinase Troponin T C-Reactive Protein NT-Pro-B Natriuret Pep Albumin HDL Cholesterol Arterial Blood Glucose Urine WBC (Auto) Urine Creatinine Salicylates Acetaminophen Chest x-ray: image reviewed (improved interstitial edema) Allied health notes reviewed: nursing
--- NOTE | 2021-05-28 16:54 | Progress Note ---
Assessment and Plan Assessment and plan: This is a 41-year-old male with acute hypoxic respiratory failure, elevated D- dimer, acute kidney injury, hyperkalemia and transaminitis Neuro: Acute metabolic encephalopathy -CT head and C-spine negative for acute process -TSH WNL -Patient is sedated with propofol and fentanyl -Goal RASS 0 to -1 -Avoid delirium -Reorientation as needed -Maintain sleep-wake cycle Cardio: Hypotension, possible CHF, h/o HTN -Cardiology consulted, appreciate recommendations -S/p Levophed -echocardiogram showed mild to moderate dilated right heart chambers, LVEF 55% -Cardiology recommends conservative cardiac management -Patient currently not hypertensive -No home antihypertensive regimen found on home med list -Blood pressure monitoring per protocol -As needed hydralazine Respiratory: Acute possibly on chronic hypoxemic and hypercapnic respiratory failure, ARDS, h/o sleep apnea -CCM/pulmonary consulted, appreciate recommendations -Patient intubated on 05/23 for airway protection in the ED -Intubated with 7.50 ETT at 24 the lips -A.m. ABG noted -A.m. vent settings: Assist control tidal line 450, rate 25, PEEP 14, FiO2 85% -See RT notes for titration -VAP bundle GI: Transaminitis, morbid obesity -NTR consult for tube feedings -Tube feedings Nepro at 45 mL's per hour -Free water flush 175 mL/4hr -24-hour +2006 -Presented with elevated LFTs which are now improving -Trend LFTs : Acute renal failure secondary to vasomotor nephropathy -Nephrology consulted, appreciate recommendations -Garcia catheter for strict intake and output -Avoid nephrotoxic medications -Renally dose medications -Renal calculated at 0.41% indicating prerenal -Patient admitted with volume overload (proBNP [id number]) -Patient will receive Lasix x1 ID: CAP, leukopenia, coag negative Staphylococcus in blood culture 07/26 -CT C-spine showed right upper lobe pneumonia -Antibiotic therapy with cefepime and azithromycin -Monitor fever and WBC curve -05/23 UC, tracheal aspirate no growth to date -05/23 blood culture with coag negative staph in 1 of 2 bottles Endo: NAD -Accu-Cheks every 6 while on tube feedings -No indication for SSI at this time -Avoid hypoglycemia -Target blood glucose while critically ill less than 180 Heme: Elevated D-dimer -VQ scan unable to be performed due to patient being intubated -CTA head unable to be performed due to renal function and size -Heparin subcu -SCDs to bilateral lower extremity while in bed -Echocardiogram shows no right heart strain -Trend CBC -Transfuse for hemoglobin less than 7 -Bilateral lower extremity Doppler ultrasound negative for DVT The high probability of a clinically significant, sudden or life threatening deterioration of the [renal/pulm] system(s) required my full and direct attention, intervention and personal management. The aggregate critical care time was [60] minutes. This time is in addition to time spent performing reported procedures but includes the following: [x] Data Review and interpretation [x] Patient assessment and monitoring of vital signs [x] Documentation [x] Medication orders and management Disposition Plan: icu Total Time Spent with Patient (Minutes): 60 History Interval history: This is a 41-year-old male who has HTN, REVA and morbid obesity who presents to the emergency department on 05/23 via EMS for severe respiratory distress. Upon EMS arrival patient was found to be altered and sedated from bed to floor and reports noncompliant with CPAP/BiPAP. Patient received bag valve mask ventilation via nasal trumpet with EMS on route. Work-up in the emergency department included a CXR which showed right [place] [address], elevated troponin at 0.038, elevated D-dimer, acute kidney injury, hyperkalemia and transaminitis. Patient was intubated in the emergency department for for airway protection as he was reported to be obtunded and without a gag reflex. Patient did receive Narcan in the field by EMS however there was no reported affect. Hospital course to date: 05/24/2021: Patient intubated and sedated. VQ scan ordered secondary to elevated D-dimer. Cardiology consulted secondary to elevated troponin and elevated BNP. Echocardiogram ordered and pending. 05/25/2021: Patient still intubated. Responsive to commands. Hypotensive, norepinephrine increased to 15mcg. Unable to get V/Q scan due to body habitus. 05/26: Overnight patient experienced desaturation to the 80s and FiO2 was increased. This morning on ABG patient exhibited hypoxemia and FiO2 was unchanged. CCM later increased PEEP and decrease FiO2. Nephrology was consulted due to no recovery in renal function noted. Urine lites were ordered. Hyperkalemia treated medically. 05/27: Patient remains sedated on fentanyl and propofol, [facility] will taper Solu- Medrol and repeat ABG in 1900. Patient received 40 mg of Lasix x1. Slight improvement to renal function noted 05/28: [facility] has started revatio for pulmonary hypertension, we will repeat Lasix today as patient had improvement in renal function. No acute events reported overnight. Hospitalist Physical - Constitutional Vitals: Temp Pulse Resp BP Pulse Ox 97.3 F L 86 25 H 100/52 90 05/28/21 12:01 05/28/21 14:15 05/28/21 14:15 05/28/21 14:15 05/28/21 14:15 General appearance: Present: no acute distress, other (Intubated) - EENT Eyes: Present: PERRL, EOM intact ENT: hearing intact, clear oral mucosa, dentition normal - Neck Neck: Present: supple, normal ROM - Respiratory Respiratory effort: normal Respiratory: bilateral: diminished - Cardiovascular Rhythm: regular Heart Sounds: Present: S1 & S2. Absent: systolic murmur, diastolic murmur - Extremities Extremities: no ischemia, pulses intact, pulses symmetrical, No edema, normal temperature, normal color Peripheral Pulses: within normal limits - Abdominal General gastrointestinal: soft, non-tender, non-distended, normal bowel sounds - Psychiatric Psychiatric: cooperative - Allied Health Allied health notes reviewed: nursing, RT, social work HEART Score - HEART Score Troponin: Troponin T 0.038 ng/mL (0.00-0.029) H 05/23/21 15:09 Results - Labs CBC & Chem 7: 05/28/21 Unknown 05/28/21 05:30 Labs: Laboratory Last Values WBC 5.7 K/mm3 (4.5-11.0) 05/28/21 Unknown RBC 4.08 M/mm3 (3.65-5.03) 05/28/21 Unknown Hgb 11.7 gm/dl (11.8-15.2) L 05/28/21 Unknown Hct 38.4 % (35.5-45.6) 05/28/21 Unknown MCV 94 fl (84-94) 05/28/21 Unknown MCH 29 pg (28-32) 05/28/21 Unknown MCHC 31 % (32-34) L 05/28/21 Unknown RDW 21.3 % (13.2-15.2) H 05/28/21 Unknown Plt Count 121 K/mm3 (140-440) L 05/28/21 Unknown Lymph % (Auto) 5.9 % (13.4-35.0) L 05/23/21 15:09 Long % (Auto) 6.1 % (0.0-7.3) 05/23/21 15:09 Eos % (Auto) 0.2 % (0.0-4.3) 05/23/21 15:09 Baso % (Auto) 0.3 % (0.0-1.8) 05/23/21 15:09 Lymph # (Auto) 0.6 K/mm3 (1.2-5.4) L 05/23/21 15:09 Long # (Auto) 0.6 K/mm3 (0.0-0.8) 05/23/21 15:09 Eos # (Auto) 0.0 K/mm3 (0.0-0.4) 05/23/21 15:09 Baso # (Auto) 0.0 K/mm3 (0.0-0.1) 05/23/21 15:09 Add Manual Diff Complete 05/24/21 04:55 Total Counted 100 05/24/21 04:55 Seg Neutrophils % Greensman 05/24/21 04:55 Seg Neuts % (Manual) 97.0 % (40.0-70.0) H 05/24/21 04:55 Lymphocytes % (Manual) 3.0 % (13.4-35.0) L 05/24/21 04:55 Nucleated RBC % Not Reportable 05/24/21 04:55 Seg Neutrophils # 8.2 K/mm3 (1.8-7.7) H 05/23/21 15:09 Seg Neutrophils # Man 8.4 K/mm3 (1.8-7.7) H 05/24/21 04:55 Band Neutrophils # 0.0 K/mm3 05/24/21 04:55 Lymphocytes # (Manual) 0.3 K/mm3 (1.2-5.4) L 05/24/21 04:55 Abs React Lymphs (Man) 0.0 K/mm3 05/24/21 04:55 Monocytes # (Manual) 0.0 K/mm3 (0.0-0.8) 05/24/21 04:55 Eosinophils # (Manual) 0.0 K/mm3 (0.0-0.4) 05/24/21 04:55 Basophils # (Manual) 0.0 K/mm3 (0.0-0.1) 05/24/21 04:55 Metamyelocytes # 0.0 K/mm3 05/24/21 04:55 Myelocytes # 0.0 K/mm3 05/24/21 04:55 Promyelocytes # 0.0 K/mm3 05/24/21 04:55 Blast Cells # 0.0 K/mm3 05/24/21 04:55 WBC Morphology Not Reportable 05/24/21 04:55 Hypersegmented Neuts Not Reportable 05/24/21 04:55 Hyposegmented Neuts Not Reportable 05/24/21 04:55 Hypogranular Neuts Not Reportable 05/24/21 04:55 Smudge Cells Not Reportable 05/24/21 04:55 Toxic Granulation Not Reportable 05/24/21 04:55 Toxic Vacuolation Not Reportable 05/24/21 04:55 Dohle Bodies Not Reportable 05/24/21 04:55 Pelger-Huet Anomaly Not Reportable 05/24/21 04:55 Cynthia Rods Not Reportable 05/24/21 04:55 Platelet Estimate Consistent w auto 05/24/21 04:55 Clumped Platelets Not Reportable 05/24/21 04:55 Plt Clumps, EDTA Not Reportable 05/24/21 04:55 Large Platelets Not Reportable 05/24/21 04:55 Giant Platelets Not Reportable 05/24/21 04:55 Platelet Satelliting Not Reportable 05/24/21 04:55 Plt Morphology Comment Not Reportable 05/24/21 04:55 RBC Morphology Not Reportable 05/24/21 04:55 Dimorphic RBCs Not Reportable 05/24/21 04:55 Polychromasia Not Reportable 05/24/21 04:55 Hypochromasia Not Reportable 05/24/21 04:55 Poikilocytosis Not Reportable 05/24/21 04:55 Anisocytosis 1+ 05/24/21 04:55 Microcytosis Not Reportable 05/24/21 04:55 Macrocytosis Not Reportable 05/24/21 04:55 Spherocytes Not Reportable 05/24/21 04:55 Pappenheimer Bodies Not Reportable 05/24/21 04:55 Sickle Cells Not Reportable 05/24/21 04:55 Target Cells Not Reportable 05/24/21 04:55 Tear Drop Cells Not Reportable 05/24/21 04:55 Ovalocytes Not Reportable 05/24/21 04:55 Helmet Cells Not Reportable 05/24/21 04:55 James-Gl[place] Bodies Not Reportable 05/24/21 04:55 Maybeury Rings Not Reportable 05/24/21 04:55 Luis Cells Not Reportable 05/24/21 04:55 Bite Cells Not Reportable 05/24/21 04:55 Crenated Cell Not Reportable 05/24/21 04:55 Elliptocytes Not Reportable 05/24/21 04:55 Acanthocytes (Spur) Not Reportable 05/24/21 04:55 Rouleaux Not Reportable 05/24/21 04:55 Hemoglobin C Crystals Not Reportable 05/24/21 04:55 Schistocytes Not Reportable 05/24/21 04:55 Malaria parasites Not Reportable 05/24/21 04:55 Uli Bodies Not Reportable 05/24/21 04:55 Hem Pathologist Commnt No 05/24/21 04:55 PT 18.1 Sec. (12.2-14.9) H 05/23/21 15:09 INR 1.36 (0.87-1.13) H 05/23/21 15:09 APTT 23.1 Sec. (24.2-36.6) L 05/23/21 15:09 D-Dimer 4444.85 ng/mlDDU (0-234) H 05/23/21 15:09 ABG pH 7.339 pH Units (7.350-7.450) L 05/28/21 13:32 POC ABG pCO2 40.1 mmHg (32.0-48.0) 05/26/21 21:00 ABG pCO2 47.2 mm Hg 05/28/21 13:32 POC ABG pO2 56.7 mmHg (83-108) L 05/26/21 21:00 ABG pO2 53.7 mm Hg (80.0-90.0) L 05/28/21 13:32 POC ABG HCO3 23.8 05/26/21 21:00 ABG HCO3 24.8 mmol/L (20.0-26.0) 05/28/21 13:32 ABG O2 Saturation 86.5 % (95.0-99.0) L 05/28/21 13:32 ABG O2 Content 14.6 (0.0-44) 05/28/21 13:32 POC ABG Base Excess -1.0 05/26/21 21:00 ABG Base Excess -1.3 mmol/L (-2.0-3.0) 05/28/21 13:32 ABG Hemoglobin 12.3 gm/dl (14.0-18.0) L 05/28/21 13:32 ABG Oxyhemoglobin 88.8 (94-98) L 05/26/21 21:00 ABG Carboxyhemoglobin 1.5 % (0.0-5.0) 05/28/21 13:32 ABG Methemoglobin 0.6 % (0.0-1.5) 05/28/21 13:32 ABG Sodium 140.4 mmol/L (136.0-145.0) 05/26/21 21:00 ABG Potassium 4.7 mmol/L (3.40-4.50) H 05/26/21 21:00 ABG Chloride 107.0 mmol/L (98-107) 05/26/21 21:00 ABG Glucose 152 mg/dL (65-95) H 05/26/21 21:00 Oxyhemoglobin 84.6 % (95.0-99.0) L 05/28/21 13:32 Carboxyhemoglobin 0.8 (0.5-1.5) 05/26/21 21:00 FiO2 80 % 05/28/21 13:32 FiO2 % 85.0 05/26/21 21:00 Sodium 138 mmol/L (137-145) 05/28/21 05:30 Potassium 4.2 mmol/L (3.6-5.0) 05/28/21 05:30 Chloride 104.8 mmol/L (98-107) 05/28/21 05:30 Carbon Dioxide 23 mmol/L (22-30) 05/28/21 05:30 Anion Gap 14 mmol/L 05/28/21 05:30 BUN 53 mg/dL (9-20) H 05/28/21 05:30 Creatinine 1.6 mg/dL (0.8-1.3) H 05/28/21 05:30 Estimated GFR 57 ml/min 05/28/21 05:30 BUN/Creatinine Ratio 33 % 05/28/21 05:30 Glucose 118 mg/dL (75-100) H 05/28/21 05:30 POC Glucose 115 mg/dL (70-105) H 05/28/21 11:37 Lactic Acid 1.50 mmol/L (0.7-2.0) 05/23/21 15:09 Calcium 8.0 mg/dL (8.4-10.2) L 05/28/21 05:30 Phosphorus 2.90 mg/dL (2.5-4.5) 05/28/21 05:30 Magnesium 2.40 mg/dL (1.7-2.3) H 05/28/21 05:30 Total Bilirubin 0.60 mg/dL (0.1-1.2) 05/26/21 Unknown AST 64 units/L (5-40) H 05/26/21 Unknown ALT 448 units/L (7-56) H 05/26/21 Unknown Alkaline Phosphatase 58 units/L (35-129) 05/26/21 Unknown Ammonia 30.0 umol/L (25-60) 05/24/21 04:55 Total Creatine Kinase 48 units/L (55-170) L 05/23/21 15:09 Troponin T 0.038 ng/mL (0.00-0.029) H 05/23/21 15:09 C-Reactive Protein 10.00 mg/dL (0.00-1.30) H 05/23/21 19:10 NT-Pro-B Natriuret Pep 52669 pg/mL (0-450) H 05/23/21 15:09 Total Protein 7.0 g/dL (6.3-8.2) 05/26/21 Unknown Albumin 3.4 g/dL (3.9-5) L 05/26/21 Unknown Albumin/Globulin Ratio 0.9 % 05/26/21 Unknown Triglycerides 88 mg/dL (2-149) 05/23/21 15:09 Cholesterol 106 mg/dL (50-199) 05/23/21 15:09 LDL Cholesterol Direct 58 mg/dL (50-130) 05/23/21 15:09 HDL Cholesterol 29 mg/dL (40-59) L 05/23/21 15:09 Cholesterol/HDL Ratio 3.65 % 05/23/21 15:09 Procalcitonin 0.83 ng/mL (<0.15) 05/23/21 15:09 TSH 2.380 mlU/mL (0.270-4.200) 05/23/21 15:09 Arterial Blood Glucose 152 mg/dL (65-95) H 05/26/21 21:00 Urine Color [place] (Yellow) 05/23/21 Unknown Urine Turbidity Slightly-cloudy (Clear) 05/23/21 Unknown Urine pH 5.0 (5.0-7.0) 05/23/21 Unknown Ur Specific [place] 1.014 (1.003-1.030) 05/23/21 Unknown Urine Protein 30 mg/dl mg/dL (Negative) 05/23/21 Unknown Urine Glucose (UA) Neg mg/dL (Negative) 05/23/21 Unknown Urine Ketones Neg mg/dL (Negative) 05/23/21 Unknown Urine Blood Mod (Negative) 05/23/21 Unknown Urine Nitrite Neg (Negative) 05/23/21 Unknown Urine Bilirubin Neg (Negative) 05/23/21 Unknown Urine Urobilinogen 4.0 mg/dL (<2.0) 05/23/21 Unknown Ur Leukocyte Esterase Tr (Negative) 05/23/21 Unknown Urine WBC (Auto) 34.0 /HPF (0.0-6.0) H 05/23/21 Unknown Urine RBC (Auto) 20.0 /HPF (0.0-6.0) 05/23/21 Unknown U Epithel Cells (Auto) 2.0 /HPF (0-13.0) 05/23/21 Unknown Urine Bacteria (Auto) 1+ /HPF (Negative) 05/23/21 Unknown Urine Mucus Few /HPF 05/23/21 Unknown Urine Osmolality 612 Mosm/kg 05/26/21 Unknown Urine Creatinine 128.6 mg/dL (0.1-20.0) H 05/26/21 Unknown Urine Sodium 37 mmol/L 05/26/21 Unknown Urine Potassium 45.15 mmol/L 05/26/21 Unknown Urine Urea Nitrogen 989 05/26/21 Unknown Salicylates < 0.3 mg/dL (2.8-20.0) L 05/23/21 15:09 Urine Opiates Screen Negative 05/23/21 Unknown Urine Methadone Screen Negative 05/23/21 Unknown Acetaminophen 5.0 ug/mL (10.0-30.0) L 05/23/21 15:09 Ur Barbiturates Screen Negative 05/23/21 Unknown Ur Phencyclidine Scrn Negative 05/23/21 Unknown Ur Amphetamines Screen Negative 05/23/21 Unknown U Benzodiazepines Scrn Negative 05/23/21 Unknown Urine Cocaine Screen Negative 05/23/21 Unknown U Marijuana (THC) Screen Negative 05/23/21 Unknown Drugs of Abuse Note Disclamer 05/23/21 Unknown Plasma/Serum Alcohol < 0.01 % (0-0.07) 05/23/21 15:09 Coronavirus (PCR) Negative (Negative) 05/23/21 Unknown Blood Type O POSITIVE 05/23/21 15:01 Antibody Screen Negative 05/23/21 15:01 Microbiology: Microbiology 05/23/21 15:09 Peripheral/Venous Blood Culture - Final NO GROWTH AFTER 5 DAYS Garcia/IV: Voiding Method Indwelling Catheter Active Medications - Current Medications Current Medications: Generic Name Dose Route Start Last Admin Trade Name Freq PRN Reason Stop Dose Admin Acetaminophen 650 mg 05/23/21 20:42 Acetaminophen 325 Mg Tab PO Q4H PRN Pain MILD(1-3)/Fever >100.5/CASTORENA Albuterol 2.5 mg 05/23/21 21:11 Albuterol 2.5 Mg/3 Ml Nebu IH Q4HRT PRN Shortness Of Breath Albuterol/Ipratropium 1 ampul 05/24/21 08:00 05/28/21 16:28 Ipratropium/Albuterol Sulfate 3 Ml Ampul.Neb IH Not Given QIDRT ROSEMARIE Lipase/Protease/Amylase 1 each 05/24/21 10:14 Lipase 10,500/Protease 25,000/Amylase 43,750 (Units) Dr Higgins FEEDTUBE PRN PRN For Clogged Feeding Tube Famotidine 20 mg 05/27/21 10:00 05/28/21 10:44 Famotidine 20 Mg Tab FEEDTUBE 20 mg BID ROSEMARIE Administration Fentanyl 50 mcg 05/23/21 12:34 05/23/21 18:50 Fentanyl 100 Mcg/2 Ml Inj IV 50 mcg Q10MIN PRN Administration ANALGESIA Furosemide 40 mg 05/28/21 17:00 Furosemide 40 Mg/4 Ml Inj IV 05/28/21 17:01 ONCE ONE Heparin Sodium (Porcine) 5,000 unit 05/23/21 20:00 05/28/21 14:09 Heparin 5,000 Unit/1 Ml Vial SUB-Q 5,000 unit Q8HR ROSEMARIE Administration Hydrophilic Ointment 1 applic 05/23/21 12:34 Lip Therapy Vaseline TP Q2HR PRN Dry Lips Fentanyl Citrate 2,000 mcg in 100 mls @ 8.528 mls/hr 05/23/21 13:00 05/28/21 15:07 Fentanyl Drip Premix IV 3 mcg/kg/hr TITR ROSEMARIE 25.583 mls/hr Administration Protocol 1 MCG/KG/HR NORepinephrine/NS 8 MG-250 ML 8 mg in 250 mls @ 3.75 mls/hr 05/24/21 20:00 05/25/21 15:20 Norepinephrine/Ns 8 Mg-250 Ml (Double Conc) IV 0 mcg/min TITRATE ROSEMARIE 0 mls/hr Titration Protocol 2 MCG/MIN Propofol 1,000 mg in 100 mls @ 5.117 mls/hr 05/25/21 19:00 05/28/21 15:07 Diprivan 10 Mg/Ml IV 30 mcg/kg/min TITR ROSEMARIE 30.699 mls/hr Administration Protocol 5 MCG/KG/MIN Methylprednisolone Sodium Succinate 40 mg 05/28/21 10:00 05/28/21 10:44 Methylprednisolone Sod Succinate 40 Mg/1 Ml Inj IV 05/29/21 10:01 40 mg Q24HR ROSEMARIE Administration Multi-Ingred Cream/Lotion/Oil/Oint 1 applic 05/23/21 12:34 Mineral Oil/Petrolatum, White Ophth Oint 3.5 Gm OU Q4HR PRN Dry Eye(s) Ondansetron HCl 4 mg 05/23/21 20:42 Ondansetron 4 Mg/2 Ml Inj IV Q8H PRN Nausea And Vomiting Senna/Docusate Sodium 1 tab 05/23/21 22:00 05/28/21 10:44 Sennosides/Docusate Sodium 8.6/50 Mg Tab FEEDTUBE 1 tab BID ROSEMARIE Administration Sildenafil Citrate 20 mg 05/28/21 20:00 Sildenafil 20 Mg Tab PO TID ROSEMARIE Simple Syrup 15 ml 05/24/21 10:14 Simple Syrup 15 Ml FEEDTUBE PRN PRN Hypoglycemia Simple Syrup 30 ml 05/24/21 10:14 Simple Syrup 15 Ml FEEDTUBE PRN PRN Hypoglycemia Sodium Bicarbonate 325 mg 05/24/21 10:14 Sodium Bicarbonate 325 Mg Tab FEEDTUBE PRN PRN For Clogged Feeding Tube Sodium Chloride 10 ml 05/23/21 22:00 05/28/21 10:45 Sodium Chloride 0.9% 10 Ml Flush Syringe IV 10 ml BID ROSEMARIE Administration Sodium Chloride 10 ml 05/23/21 20:42 Sodium Chloride 0.9% 10 Ml Flush Syringe IV PRN PRN LINE FLUSH Nutrition/Malnutrition Assess - Dietary Evaluation Nutrition/Malnutrition Findings: Nutrition Notes Start: 05/24/21 09:53 Freq: Status: Active Protocol: Document 05/28/21 14:30 GB (Rec: 05/28/21 14:44 GB [id number]) Nutrition Notes Initial or Follow up Reassessment Current Diagnosis Acute Kidney Injury, Hypertension,Respiratory Failure Other Pertinent Diagnosis SIRS, encephalopathy, pneu, transaminitis Current Diet NPO, Tube Feeding Nepro @ 45m/ hr Labs/Tests 05/28: BUN 53, Creatinine 1.6, glucose 118, Ca 8, Mg 2.4 Pertinent Medications Fentanyl Citrate, Norepenephrin/NS 8 Mg 250, Propofol 30.699 ml/hr (810kcal ) Height 5 ft 8 in Weight 170.551 kg [place] Body Weight (kg) 70.00 BMI 57.2 Weight change and time frame No new weights recorded at time of assessment Weight Status Morbidly Obese Subjective/Other Information Pt continues Intubated/sedated 05/28: Chest Xray note: tubes in satisfactory position, No significant changes 05/28: note unresponsive on vent BM: no record at time of assessment Percent of energy/protein needs met: TF at goal meets 75% or greater of minimal estimated energy needs Burn Absent Trauma Absent GI Symptoms Other Difficulty In Swallowing Food Allergy No Skin Integrity/Comment wound to left toe Current % PO Other Minimum of two criteria No #1 Nutrition Diagnosis Swallowing difficulty Comments: 05/25: intubation/sedation continues. TF started 05/28: intubation/sedation continues. TF Nepro @ goal 45ml/hr Etiology ARF As Evidenced by Signs and Symptoms Intubated/sedated Diagnosis Progress(for reassessment Continues documentation) Is patient on ventilator? Yes Is Patient Ambulatory and/or Out of Bed No REE-([facility]-confined to bed) 3092.088 Kcal/Kg value to use for calculation 12 Approximate Energy Requirements Using 2047 kcal/Kg Calculation Used for Recommendations Kcal/kg Additional Notes Protein: 0.6g/kg or greater @ 170kg Fluid: 1 ml/kcal or per MD Nutrition Intervention Change Diet Order: Continue NPO, Tube feeding Nutrition Support: Nepro 1.8 at 45 ml/hr Flush 175 ml q4h or per MD Total free water: TF@goal + flush = 1835ml Kcal 1,950 Protein (gm) 88 Carbohydrates (gm) 174 Fat (gm) 104 Fluid (mL) 788 Fiber (gm) 14 % RDI: 100%kcal / 86%pro Goal #1 Meet at least 75% or greater of EEN via TF 05/25: met, continues 05/28: met, continues Goal #2 TF (Nepro) at goal rate (45ml/ hr) by f/u 05/25: TF started 05/28: TF at goal. met, continues Follow-Up By: 06/02/21 Additional Comments F/u: TF tolerance, renal labs, vent status
[2021-05-28] MEDS ORDERED: FUROSEMIDE 40 MG/4 ML INJ IV ONE (17:00)
[2021-05-28] MEDS: SILDENAFIL 20 MG TAB PO SCH (21:34)
[2021-05-29] MEDS: fentaNYL DRIP Premix 2,000 MCG/100 ML BAG IV SCH ×5 (01:43→18:18)
--- NOTE | 2021-05-29 03:53 | XRay Report ---
CHEST 1 VIEW INDICATION: follow up respiratory failure. COMPARISON: One day prior. FINDINGS: Support devices: Unchanged. Heart: Stable. Lungs/Pleura: Bilateral pulmonary opacities are slightly worsened. No pneumothorax. IMPRESSION: 1. Slight worsening of pulmonary opacities particularly in the right lower lung. Signer Name: Brennan Sanders MD Signed: 05/29/2021 3:49 AM Workstation Name: [id number]
[2021-05-29] MEDS: IPRATROPIUM/ALBUTEROL SULFATE 3 ML AMPUL.NEB IH SCH ×3 (08:38→19:14)
[2021-05-29] MEDS: SENNOSIDES/DOCUSATE SODIUM 8.6/50 MG TAB FEEDTUBE SCH ×2 (09:21→21:58)
[2021-05-29] MEDS: methylPREDNISolone Sod Succinate 40 MG/1 ML INJ IV SCH (09:25)
[2021-05-29] MEDS: FAMOTIDINE 20 MG TAB FEEDTUBE SCH ×2 (09:25→21:58)
[2021-05-29] MEDS: HEPARIN 5,000 UNIT/1 ML VIAL SUB-Q SCH (09:25)
[2021-05-29] MEDS: SILDENAFIL 20 MG TAB PO SCH ×3 (09:40→20:33)
--- NOTE | 2021-05-29 09:53 | Progress Note ---
Assessment and Plan - Patient Problems (1) Acute respiratory failure Current Visit: Yes Status: Acute Plan to address problem: 41-year-old man who is morbidly obese, weighing over 375 pounds, admitted with acute respiratory failure. Cardiology consultation was requested for assessment of heart failure. Chest x-ray showed a normal-sized cardiac silhouette and clear lungs. EKG was sinus with an incomplete right bundle branch block. There are no clinical signs or echocardiographic findings of left-sided heart failure. Left ventricular ejection fraction was 55%. Conversely there was dilatation of the right heart chambers, moderate tricuspid regurgitation and at least moderate pulmonary hypertension with a pulmonary artery systolic pressure of 53. Findings suggest the presence of chronic cor pulmonale, likely associated with COPD and possible sleep apnea. We will continue conservative cardiac management as previously outlined. Subjective Date of service: 05/29/21 Principal diagnosis: Acute hypoxemic and hypercapnic resp failure; PUI COVID-19; Pneumonia; FERMIN Interval history: Patient is sedated, on the vent. No new cardiac complaints reported. Objective Vital Signs Temp Pulse Pulse Resp Resp BP Pulse Ox 05/29/21 09:30 77 25 H 96/51 97 05/29/21 09:15 81 16 96/51 97 05/29/21 09:00 75 13 100/52 96 05/29/21 08:45 80 13 100/53 97 05/29/21 08:38 79 25 H 05/29/21 08:35 78 96/53 95 05/29/21 08:30 83 22 96/53 96 05/29/21 08:15 79 17 93/52 96 05/29/21 08:00 80 13 94/52 95 05/29/21 07:45 82 16 89/47 95 05/29/21 07:31 98.1 F 05/29/21 07:30 85 23 89/50 94 05/29/21 07:15 91 H 30 H 98/57 94 05/29/21 07:01 116 H 26 H 95/64 85 05/29/21 06:45 88 25 H 92/51 93 05/29/21 06:30 90 25 H 96/55 94 05/29/21 06:15 96 H 25 H 99/57 94 05/29/21 06:00 98 H 25 H 110/65 95 05/29/21 05:45 105 H 25 H 108/67 94 05/29/21 05:31 113 H 21 118/82 94 05/29/21 05:15 79 25 H 94/55 94 05/29/21 05:00 76 25 H 94/52 94 05/29/21 04:45 76 25 H 93/53 93 05/29/21 04:35 76 91/51 94 05/29/21 04:30 75 25 H 91/51 94 05/29/21 04:15 77 25 H 91/49 94 05/29/21 04:00 73 25 H 93/52 94 05/29/21 03:45 77 25 H 88/49 91 05/29/21 03:30 72 26 H 95/54 93 05/29/21 03:20 99.7 F H 05/29/21 03:15 76 25 H 94/48 93 05/29/21 03:00 73 25 H 93/54 94 05/29/21 02:45 77 26 H 97/56 94 05/29/21 02:30 77 25 H 93/52 94 05/29/21 02:15 77 24 95/54 94 05/29/21 02:00 81 25 H 94/50 93 05/29/21 01:45 82 25 H 94/56 92 05/29/21 01:30 83 21 95/51 94 05/29/21 01:15 80 20 105/62 93 05/29/21 01:00 88 21 95/52 91 05/29/21 00:45 91 H 25 H 97/55 91 05/29/21 00:30 100 H 21 105/62 91 05/29/21 00:25 91 05/29/21 00:15 89 24 97/55 90 05/29/21 00:00 90 22 97/55 89 05/28/21 23:47 99.4 F 05/28/21 23:45 96 H 19 111/66 89 05/28/21 23:30 105 H 18 107/68 89 05/28/21 23:15 102 H 24 133/89 91 05/28/21 23:00 107 H 24 111/66 90 05/28/21 22:45 105 H 29 H 133/89 94 05/28/21 22:31 138 H 26 H 133/89 92 05/28/21 22:15 82 25 H 108/61 93 05/28/21 22:00 78 25 H 108/61 95 05/28/21 21:45 78 25 H 104/61 94 05/28/21 21:30 76 25 H 104/61 95 05/28/21 21:15 73 25 H 103/57 95 05/28/21 21:00 74 25 H 102/59 96 05/28/21 20:45 80 25 H 100/62 95 05/28/21 20:39 84 25 H 05/28/21 20:31 89 19 98/60 93 05/28/21 20:15 82 12 98/60 93 05/28/21 20:00 98.4 F 84 19 100/59 91 05/28/21 19:45 83 24 98/56 91 05/28/21 19:30 87 23 101/59 91 05/28/21 19:15 109 H 25 H 99/61 90 05/28/21 19:11 85 25 H 101/60 90 05/28/21 19:00 24 101/60 89 05/28/21 18:45 94 H 17 102/61 88 05/28/21 18:30 90 25 H 106/65 92 05/28/21 18:15 73 25 H 98/54 91 05/28/21 18:00 82 25 H 94/52 90 05/28/21 17:47 83 103/61 90 05/28/21 17:45 89 25 H 103/61 92 05/28/21 17:30 93 H 25 H 110/61 91 05/28/21 17:15 88 21 98/57 90 05/28/21 17:00 88 21 105/59 91 05/28/21 16:45 91 H 12 108/60 90 05/28/21 16:30 90 25 H 108/60 91 05/28/21 16:15 83 25 H 98/54 91 05/28/21 16:00 97.6 F 84 26 H 98/51 92 05/28/21 15:45 76 25 H 103/52 90 05/28/21 15:30 74 25 H 99/49 90 05/28/21 15:15 79 25 H 101/52 90 05/28/21 15:00 89 25 H 104/56 88 05/28/21 14:45 92 H 25 H 104/56 89 05/28/21 14:30 84 25 H 105/54 91 05/28/21 14:15 86 25 H 100/52 90 05/28/21 14:00 86 25 H 100/54 90 05/28/21 13:45 85 25 H 99/54 90 05/28/21 13:30 102 H 21 94/58 90 05/28/21 13:15 92 H 25 H 108/58 89 05/28/21 13:00 82 25 H 103/56 93 05/28/21 12:58 84 25 H 05/28/21 12:57 84 98/58 92 05/28/21 12:45 89 25 H 98/58 92 05/28/21 12:30 87 25 H 99/54 92 05/28/21 12:15 86 25 H 95/52 91 05/28/21 12:01 97.3 F L 05/28/21 12:00 90 24 89/49 95 05/28/21 11:45 91 H 18 86/48 91 05/28/21 11:30 94 H 25 H 90/49 91 05/28/21 11:15 101 H 25 H 94/50 91 05/28/21 11:00 110 H 25 H 96/56 92 05/28/21 10:45 111 H 25 H 92/56 91 05/28/21 10:30 136 H 25 H 118/76 89 05/28/21 10:15 112 H 25 H 104/66 90 05/28/21 10:00 120 H 25 H 103/67 90 - Physical Examination General: Other (Unresponsive, on the vent) HEENT: Positive: Normocephaly Neck: Positive: neck supple Cardiac: Positive: Reg Rate and Rhythm Lungs: Positive: Decreased Breath Sounds Neuro: Positive: Other (Unresponsive, on the vent) Abdomen: Positive: Soft Skin: Positive: Clear Extremities: Present: +1 Edema - Labs and Meds CBC 05/28/21 Range/Units Unknown WBC 5.7 (4.5-11.0) K/mm3 RBC 4.08 (3.65-5.03) M/mm3 Hgb 11.7 L (11.8-15.2) gm/dl Hct 38.4 (35.5-45.6) % Plt Count 121 L (140-440) K/mm3 - Imaging and Cardiology EKG: report reviewed (Sinus tachycardia no acute ST-T wave changes) - Allied health notes Allied health notes reviewed: nursing
[2021-05-29 10:07] LABS: ABG Base Excess -1.2 mmol/L (-2.0-3.0); ABG HCO3 24.6 mmol/L (20.0-26.0); ABG Methemoglobin 0.5 % (0.0-1.5); ABG Oxygen Saturation 90.7 % (95.0-99.0); ABG PCO2 45.6 mm Hg; ABG PH 7.35 pH Units (7.350-7.450); ABG PO2 60.9 mm Hg (80.0-90.0)
--- NOTE | 2021-05-29 10:15 | Progress Note ---
Assessment and Plan Acute Renal Failure likely on CKD Hypertension Acute Respiratory Failure Pneumonia, community-acquired Morbid obesity Obstructive sleep apnea Edema Plan: labs are pending this AM Renally dose medications Obtain daily weights Monitor I/O's daily Avoid nephrotoxic agents No acute indication for [employer] [place] Will monitor renal function closely Subjective Date of service: 05/29/21 Principal diagnosis: Acute hypoxemic and hypercapnic resp failure; PUI COVID-19; Pneumonia; FERMIN Interval history: No overnight events reported Objective - Vital Signs Vital signs: Vital Signs - 12hr 05/28/21 05/28/21 05/28/21 22:15 22:31 22:45 Temperature Pulse Rate 82 138 H 105 H Pulse Rate [ Anterior Bilateral Throughout] Respiratory 25 H 26 H 29 H Rate Respiratory Rate [Anterior Bilateral Throughout] Blood Pressure 108/61 133/89 133/89 O2 Sat by Pulse 93 92 94 Oximetry 05/28/21 05/28/21 05/28/21 23:00 23:15 23:30 Temperature Pulse Rate 107 H 102 H 105 H Pulse Rate [ Anterior Bilateral Throughout] Respiratory 24 24 18 Rate Respiratory Rate [Anterior Bilateral Throughout] Blood Pressure 111/66 133/89 107/68 O2 Sat by Pulse 90 91 89 Oximetry 05/28/21 05/28/21 05/29/21 23:45 23:47 00:00 Temperature 99.4 F Pulse Rate 96 H 90 Pulse Rate [ Anterior Bilateral Throughout] Respiratory 19 22 Rate Respiratory Rate [Anterior Bilateral Throughout] Blood Pressure 111/66 97/55 O2 Sat by Pulse 89 89 Oximetry 05/29/21 05/29/21 05/29/21 00:15 00:25 00:30 Temperature Pulse Rate 89 100 H Pulse Rate [ Anterior Bilateral Throughout] Respiratory 24 21 Rate Respiratory Rate [Anterior Bilateral Throughout] Blood Pressure 97/55 105/62 O2 Sat by Pulse 90 91 91 Oximetry 05/29/21 05/29/21 05/29/21 00:45 01:00 01:15 Temperature Pulse Rate 91 H 88 80 Pulse Rate [ Anterior Bilateral Throughout] Respiratory 25 H 21 20 Rate Respiratory Rate [Anterior Bilateral Throughout] Blood Pressure 97/55 95/52 105/62 O2 Sat by Pulse 91 91 93 Oximetry 05/29/21 05/29/21 05/29/21 01:30 01:45 02:00 Temperature Pulse Rate 83 82 81 Pulse Rate [ Anterior Bilateral Throughout] Respiratory 21 25 H 25 H Rate Respiratory Rate [Anterior Bilateral Throughout] Blood Pressure 95/51 94/56 94/50 O2 Sat by Pulse 94 92 93 Oximetry 05/29/21 05/29/21 05/29/21 02:15 02:30 02:45 Temperature Pulse Rate 77 77 77 Pulse Rate [ Anterior Bilateral Throughout] Respiratory 24 25 H 26 H Rate Respiratory Rate [Anterior Bilateral Throughout] Blood Pressure 95/54 93/52 97/56 O2 Sat by Pulse 94 94 94 Oximetry 05/29/21 05/29/21 05/29/21 03:00 03:15 03:20 Temperature 99.7 F H Pulse Rate 73 76 Pulse Rate [ Anterior Bilateral Throughout] Respiratory 25 H 25 H Rate Respiratory Rate [Anterior Bilateral Throughout] Blood Pressure 93/54 94/48 O2 Sat by Pulse 94 93 Oximetry 05/29/21 05/29/21 05/29/21 03:30 03:45 04:00 Temperature Pulse Rate 72 77 73 Pulse Rate [ Anterior Bilateral Throughout] Respiratory 26 H 25 H 25 H Rate Respiratory Rate [Anterior Bilateral Throughout] Blood Pressure 95/54 88/49 93/52 O2 Sat by Pulse 93 91 94 Oximetry 05/29/21 05/29/21 05/29/21 04:15 04:30 04:35 Temperature Pulse Rate 77 75 76 Pulse Rate [ Anterior Bilateral Throughout] Respiratory 25 H 25 H Rate Respiratory Rate [Anterior Bilateral Throughout] Blood Pressure 91/49 91/51 91/51 O2 Sat by Pulse 94 94 94 Oximetry 05/29/21 05/29/21 05/29/21 04:45 05:00 05:15 Temperature Pulse Rate 76 76 79 Pulse Rate [ Anterior Bilateral Throughout] Respiratory 25 H 25 H 25 H Rate Respiratory Rate [Anterior Bilateral Throughout] Blood Pressure 93/53 94/52 94/55 O2 Sat by Pulse 93 94 94 Oximetry 05/29/21 05/29/21 05/29/21 05:31 05:45 06:00 Temperature Pulse Rate 113 H 105 H 98 H Pulse Rate [ Anterior Bilateral Throughout] Respiratory 21 25 H 25 H Rate Respiratory Rate [Anterior Bilateral Throughout] Blood Pressure 118/82 108/67 110/65 O2 Sat by Pulse 94 94 95 Oximetry 05/29/21 05/29/21 05/29/21 06:15 06:30 06:45 Temperature Pulse Rate 96 H 90 88 Pulse Rate [ Anterior Bilateral Throughout] Respiratory 25 H 25 H 25 H Rate Respiratory Rate [Anterior Bilateral Throughout] Blood Pressure 99/57 96/55 92/51 O2 Sat by Pulse 94 94 93 Oximetry 05/29/21 05/29/21 05/29/21 07:01 07:15 07:30 Temperature Pulse Rate 116 H 91 H 85 Pulse Rate [ Anterior Bilateral Throughout] Respiratory 26 H 30 H 23 Rate Respiratory Rate [Anterior Bilateral Throughout] Blood Pressure 95/64 98/57 89/50 O2 Sat by Pulse 85 94 94 Oximetry 05/29/21 05/29/21 05/29/21 07:31 07:45 08:00 Temperature 98.1 F Pulse Rate 82 80 Pulse Rate [ Anterior Bilateral Throughout] Respiratory 16 13 Rate Respiratory Rate [Anterior Bilateral Throughout] Blood Pressure 89/47 94/52 O2 Sat by Pulse 95 95 Oximetry 05/29/21 05/29/21 05/29/21 08:15 08:30 08:35 Temperature Pulse Rate 79 83 78 Pulse Rate [ Anterior Bilateral Throughout] Respiratory 17 22 Rate Respiratory Rate [Anterior Bilateral Throughout] Blood Pressure 93/52 96/53 96/53 O2 Sat by Pulse 96 96 95 Oximetry 05/29/21 05/29/21 05/29/21 08:38 08:45 09:00 Temperature Pulse Rate 80 75 Pulse Rate [ 79 Anterior Bilateral Throughout] Respiratory 13 13 Rate Respiratory 25 H Rate [Anterior Bilateral Throughout] Blood Pressure 100/53 100/52 O2 Sat by Pulse 97 96 Oximetry 05/29/21 05/29/21 09:15 09:30 Temperature Pulse Rate 81 77 Pulse Rate [ Anterior Bilateral Throughout] Respiratory 16 25 H Rate Respiratory Rate [Anterior Bilateral Throughout] Blood Pressure 96/51 96/51 O2 Sat by Pulse 97 97 Oximetry - Lab 05/28/21 Unknown 05/28/21 05:30 Most recent lab results ABG pH 7.350 pH Units (7.350-7.450) 05/29/21 09:43 ABG pCO2 45.6 mm Hg 05/29/21 09:43 ABG pO2 60.9 mm Hg (80.0-90.0) L 05/29/21 09:43 ABG HCO3 24.6 mmol/L (20.0-26.0) 05/29/21 09:43 ABG O2 Saturation 90.7 % (95.0-99.0) L 05/29/21 09:43 Calcium 8.0 mg/dL (8.4-10.2) L 05/28/21 05:30 Phosphorus 2.90 mg/dL (2.5-4.5) 05/28/21 05:30 Magnesium 2.40 mg/dL (1.7-2.3) H 05/28/21 05:30 Urine Creatinine 128.6 mg/dL (0.1-20.0) H 05/26/21 Unknown Urine Sodium 37 mmol/L 05/26/21 Unknown Medications & Allergies - Medications Allergies/Adverse Reactions: Allergies No Known Allergies Allergy (Unverified 05/25/21 12:48) Home Medications: Home Medications Medication Instructions Recorded Confirmed Last Taken Type Amoxicillin [Amoxicillin TAB] 875 mg PO BID #20 tablet 11/12/14 Unknown Rx Active Medications: Generic Name Dose Route Start Last Admin Trade Name Freq PRN Reason Stop Dose Admin Acetaminophen 650 mg 05/23/21 20:42 Acetaminophen 325 Mg Tab PO Q4H PRN Pain MILD(1-3)/Fever >100.5/CASTORENA Albuterol 2.5 mg 05/23/21 21:11 Albuterol 2.5 Mg/3 Ml Nebu IH Q4HRT PRN Shortness Of Breath Albuterol/Ipratropium 1 ampul 05/29/21 08:00 05/29/21 08:38 Ipratropium/Albuterol Sulfate 3 Ml Ampul.Neb IH 1 ampul TIDRT ROSEMARIE Administration Lipase/Protease/Amylase 1 each 05/24/21 10:14 Lipase 10,500/Protease 25,000/Amylase 43,750 (Units) Dr Higgins FEEDTUBE PRN PRN For Clogged Feeding Tube Famotidine 20 mg 05/27/21 10:00 05/29/21 09:25 Famotidine 20 Mg Tab FEEDTUBE 20 mg BID ROSEMARIE Administration Fentanyl 50 mcg 05/23/21 12:34 05/23/21 18:50 Fentanyl 100 Mcg/2 Ml Inj IV 50 mcg Q10MIN PRN Administration ANALGESIA Heparin Sodium (Porcine) 5,000 unit 05/23/21 20:00 05/29/21 09:25 Heparin 5,000 Unit/1 Ml Vial SUB-Q Not Given Q8HR ROSEMARIE Hydrophilic Ointment 1 applic 05/23/21 12:34 Lip Therapy Vaseline TP Q2HR PRN Dry Lips Fentanyl Citrate 2,000 mcg in 100 mls @ 8.528 mls/hr 05/23/21 13:00 05/29/21 09:21 Fentanyl Drip Premix IV 3 mcg/kg/hr TITR ROSEMARIE 25.583 mls/hr Administration Protocol 1 MCG/KG/HR NORepinephrine/NS 8 MG-250 ML 8 mg in 250 mls @ 3.75 mls/hr 05/24/21 20:00 05/25/21 15:20 Norepinephrine/Ns 8 Mg-250 Ml (Double Conc) IV 0 mcg/min TITRATE ROSEMARIE 0 mls/hr Titration Protocol 2 MCG/MIN Propofol 1,000 mg in 100 mls @ 5.117 mls/hr 05/25/21 19:00 05/29/21 09:22 Diprivan 10 Mg/Ml IV 25 mcg/kg/min TITR ROSEMARIE 25.583 mls/hr Administration Protocol 5 MCG/KG/MIN Multi-Ingred Cream/Lotion/Oil/Oint 1 applic 05/23/21 12:34 Mineral Oil/Petrolatum, White Ophth Oint 3.5 Gm OU Q4HR PRN Dry Eye(s) Ondansetron HCl 4 mg 05/23/21 20:42 Ondansetron 4 Mg/2 Ml Inj IV Q8H PRN Nausea And Vomiting Senna/Docusate Sodium 1 tab 05/23/21 22:00 05/29/21 09:21 Sennosides/Docusate Sodium 8.6/50 Mg Tab FEEDTUBE 1 tab BID ROSEMARIE Administration Sildenafil Citrate 20 mg 05/28/21 20:00 05/28/21 21:34 Sildenafil 20 Mg Tab PO 20 mg TID ROSEMARIE Administration Simple Syrup 15 ml 05/24/21 10:14 Simple Syrup 15 Ml FEEDTUBE PRN PRN Hypoglycemia Simple Syrup 30 ml 05/24/21 10:14 Simple Syrup 15 Ml FEEDTUBE PRN PRN Hypoglycemia Sodium Bicarbonate 325 mg 05/24/21 10:14 Sodium Bicarbonate 325 Mg Tab FEEDTUBE PRN PRN For Clogged Feeding Tube Sodium Chloride 10 ml 05/23/21 22:00 05/29/21 09:25 Sodium Chloride 0.9% 10 Ml Flush Syringe IV 10 ml BID ROSEMARIE Administration Sodium Chloride 10 ml 05/23/21 20:42 Sodium Chloride 0.9% 10 Ml Flush Syringe IV PRN PRN LINE FLUSH
--- NOTE | 2021-05-29 11:58 | Progress Note ---
Assessment and Plan Acute possibly on chronic hypoxemic and hypercapnic respiratory failure Pneumonia, community-acquired Acute toxic metabolic encephalopathy Person under investigation for COVID-19 Morbid obesity Obstructive sleep apnea History of hypertension Acute kidney injury Hyperkalemia Elevated serum transaminases Possible shock liver Hyperammonemia Non-ST elevation myocardial infarction - resume home Eliquis dosing - continue Revatio re: pulm HTN - repeat BMP in am - prn vasopressors for target MAP > 65 mmHg - nephrology input appreciated (azotemia improving) - continue care as below otherwise; - continue Daily SAT and SBT assessment as tolerated - continue to wean supplemental oxygen for target O2 sat's > 90% acutely - VAP bundle addressed - continue lung protective strategies - continue bronchodilators with pulmonary hygiene per RT - wean per pulmonary driven protocols otherwise - avoid nephrotoxins, renally dose all medications - continue accuchecks with glycemic control per SSI (While critically ill target blood glucose of 140-180 mg/dL; avoid hypoglycemia) - sedation prn for target RASS 0 to -1 - continue to avoid benzodiazepine's, reduce the possibility of delirium - AB's per ID rec's - prn analgesia per CPOT score - Maintenance of sleep-wake cycle, avoid delirium - continue enteral nutritional support at goal rate as tolerated - G.I. & VTE prophylaxis - PT/OT/ROM exercises - continue mobility protocols for pressure ulcer prophylaxis - Monitor hemodynamics closely - continue other care per attending / other consultants - discharge planning ongoing concurrently COVID SPECIFIC INTERVENTIONS - COVID-19 test result pending .... Re-evaluate in am & prn CONDITION: CRITICAL PROGNOSIS: GUARDED CODE STATUS: FULL CODE The high probability of a clinically significant, sudden or life-threatening deterioration of the [respiratory, cardiovascular, renal & neurologic] system(s) required my full and direct attention, intervention and personal management. The aggregate critical care time was [36] minutes without overlap. Time includes spent on; [x] Data Review and interpretation [x] Patient assessment and monitoring of vital signs [x] Documentation [x] Medication orders and management Subjective Date of service: 05/29/21 Principal diagnosis: Acute hypoxemic and hypercapnic resp failure; PUI COVID-19; Pneumonia; FERMIN Interval history: Patient is seen today for: Acute hypoxemic and hypercapnic respiratory failure; PUI NCOVID-19; Pneumonia; CAP; FERMIN; REVA Seen and examined at bedside; 24hour events reviewed; nursing and respiratory care staff consulted; no adverse overnight events reported to me; carmen on MVS; per his sister patient was on chronic anticoagulation for DVT's; oxygenation with some improvement; no emesis or overt aspiration Objective Vital Signs - 12hr 05/29/21 05/29/21 05/29/21 00:00 00:15 00:25 Temperature Pulse Rate 90 89 Pulse Rate [ Anterior Bilateral Throughout] Respiratory 22 24 Rate Respiratory Rate [Anterior Bilateral Throughout] Blood Pressure 97/55 97/55 O2 Sat by Pulse 89 90 91 Oximetry 05/29/21 05/29/21 05/29/21 00:30 00:45 01:00 Temperature Pulse Rate 100 H 91 H 88 Pulse Rate [ Anterior Bilateral Throughout] Respiratory 21 25 H 21 Rate Respiratory Rate [Anterior Bilateral Throughout] Blood Pressure 105/62 97/55 95/52 O2 Sat by Pulse 91 91 91 Oximetry 05/29/21 05/29/21 05/29/21 01:15 01:30 01:45 Temperature Pulse Rate 80 83 82 Pulse Rate [ Anterior Bilateral Throughout] Respiratory 20 21 25 H Rate Respiratory Rate [Anterior Bilateral Throughout] Blood Pressure 105/62 95/51 94/56 O2 Sat by Pulse 93 94 92 Oximetry 05/29/21 05/29/21 05/29/21 02:00 02:15 02:30 Temperature Pulse Rate 81 77 77 Pulse Rate [ Anterior Bilateral Throughout] Respiratory 25 H 24 25 H Rate Respiratory Rate [Anterior Bilateral Throughout] Blood Pressure 94/50 95/54 93/52 O2 Sat by Pulse 93 94 94 Oximetry 05/29/21 05/29/21 05/29/21 02:45 03:00 03:15 Temperature Pulse Rate 77 73 76 Pulse Rate [ Anterior Bilateral Throughout] Respiratory 26 H 25 H 25 H Rate Respiratory Rate [Anterior Bilateral Throughout] Blood Pressure 97/56 93/54 94/48 O2 Sat by Pulse 94 94 93 Oximetry 05/29/21 05/29/21 05/29/21 03:20 03:30 03:45 Temperature 99.7 F H Pulse Rate 72 77 Pulse Rate [ Anterior Bilateral Throughout] Respiratory 26 H 25 H Rate Respiratory Rate [Anterior Bilateral Throughout] Blood Pressure 95/54 88/49 O2 Sat by Pulse 93 91 Oximetry 05/29/21 05/29/21 05/29/21 04:00 04:15 04:30 Temperature Pulse Rate 73 77 75 Pulse Rate [ Anterior Bilateral Throughout] Respiratory 25 H 25 H 25 H Rate Respiratory Rate [Anterior Bilateral Throughout] Blood Pressure 93/52 91/49 91/51 O2 Sat by Pulse 94 94 94 Oximetry 05/29/21 05/29/21 05/29/21 04:35 04:45 05:00 Temperature Pulse Rate 76 76 76 Pulse Rate [ Anterior Bilateral Throughout] Respiratory 25 H 25 H Rate Respiratory Rate [Anterior Bilateral Throughout] Blood Pressure 91/51 93/53 94/52 O2 Sat by Pulse 94 93 94 Oximetry 05/29/21 05/29/21 05/29/21 05:15 05:31 05:45 Temperature Pulse Rate 79 113 H 105 H Pulse Rate [ Anterior Bilateral Throughout] Respiratory 25 H 21 25 H Rate Respiratory Rate [Anterior Bilateral Throughout] Blood Pressure 94/55 118/82 108/67 O2 Sat by Pulse 94 94 94 Oximetry 05/29/21 05/29/21 05/29/21 06:00 06:15 06:30 Temperature Pulse Rate 98 H 96 H 90 Pulse Rate [ Anterior Bilateral Throughout] Respiratory 25 H 25 H 25 H Rate Respiratory Rate [Anterior Bilateral Throughout] Blood Pressure 110/65 99/57 96/55 O2 Sat by Pulse 95 94 94 Oximetry 05/29/21 05/29/21 05/29/21 06:45 07:01 07:15 Temperature Pulse Rate 88 116 H 91 H Pulse Rate [ Anterior Bilateral Throughout] Respiratory 25 H 26 H 30 H Rate Respiratory Rate [Anterior Bilateral Throughout] Blood Pressure 92/51 95/64 98/57 O2 Sat by Pulse 93 85 94 Oximetry 05/29/21 05/29/21 05/29/21 07:30 07:31 07:45 Temperature 98.1 F Pulse Rate 85 82 Pulse Rate [ Anterior Bilateral Throughout] Respiratory 23 16 Rate Respiratory Rate [Anterior Bilateral Throughout] Blood Pressure 89/50 89/47 O2 Sat by Pulse 94 95 Oximetry 05/29/21 05/29/21 05/29/21 08:00 08:15 08:30 Temperature Pulse Rate 80 79 83 Pulse Rate [ Anterior Bilateral Throughout] Respiratory 13 17 22 Rate Respiratory Rate [Anterior Bilateral Throughout] Blood Pressure 94/52 93/52 96/53 O2 Sat by Pulse 92 96 96 Oximetry 05/29/21 05/29/21 05/29/21 08:35 08:38 08:45 Temperature Pulse Rate 78 80 Pulse Rate [ 79 Anterior Bilateral Throughout] Respiratory 13 Rate Respiratory 25 H Rate [Anterior Bilateral Throughout] Blood Pressure 96/53 100/53 O2 Sat by Pulse 95 97 Oximetry 05/29/21 05/29/21 05/29/21 09:00 09:15 09:30 Temperature Pulse Rate 75 81 77 Pulse Rate [ Anterior Bilateral Throughout] Respiratory 13 16 25 H Rate Respiratory Rate [Anterior Bilateral Throughout] Blood Pressure 100/52 96/51 96/51 O2 Sat by Pulse 96 97 97 Oximetry 05/29/21 05/29/21 05/29/21 09:45 10:00 10:15 Temperature Pulse Rate 97 H 98 H 95 H Pulse Rate [ Anterior Bilateral Throughout] Respiratory 29 H 25 H 16 Rate Respiratory Rate [Anterior Bilateral Throughout] Blood Pressure 84/48 95/56 97/52 O2 Sat by Pulse 89 90 93 Oximetry 05/29/21 05/29/21 05/29/21 10:30 10:45 11:00 Temperature Pulse Rate 87 85 82 Pulse Rate [ Anterior Bilateral Throughout] Respiratory 19 14 15 Rate Respiratory Rate [Anterior Bilateral Throughout] Blood Pressure 90/51 93/51 91/47 O2 Sat by Pulse 94 93 92 Oximetry 05/29/21 05/29/21 11:15 11:30 Temperature Pulse Rate 79 78 Pulse Rate [ Anterior Bilateral Throughout] Respiratory 16 14 Rate Respiratory Rate [Anterior Bilateral Throughout] Blood Pressure 96/50 97/50 O2 Sat by Pulse 93 93 Oximetry Constitutional: no acute distress, other (middle aged morbidly obese male with mildly increased respiratory effort at rest on MVS) Eyes: non-icteric ENT: oropharynx moist, other (ETT 24 cm FRANCIS) Neck: supple, no lymphadenopathy, no JVD Effort: mildly labored Ascultation: Bilateral: diminished breath sounds, rhonchi Percussion: Bilateral: not dull Cardiovascular: regular rate and rhythm Gastrointestinal: normoactive bowel sounds, soft, non-tender, non-distended Integumentary: rash (stasis dermatitis) Extremities: no cyanosis, pulses normal, no ischemia or petechiae, edema (trace) Neurologic: non-focal exam (grossly), pupils equal and round, unable to assess, other (sedated) Psychiatric: other (unable to assess re: AMS) CBC and BMP: 05/30/21 04:42 05/30/21 07:47 ABG, PT/INR, D-dimer: ABG ABG pH 7.350 pH Units (7.350-7.450) 05/29/21 09:43 POC ABG pCO2 40.1 mmHg (32.0-48.0) 05/26/21 21:00 ABG pCO2 45.6 mm Hg 05/29/21 09:43 POC ABG pO2 56.7 mmHg (83-108) L 05/26/21 21:00 ABG pO2 60.9 mm Hg (80.0-90.0) L 05/29/21 09:43 POC ABG HCO3 23.8 05/26/21 21:00 ABG O2 Saturation 90.7 % (95.0-99.0) L 05/29/21 09:43 PT/INR, D-dimer PT 18.1 Sec. (12.2-14.9) H 05/23/21 15:09 INR 1.36 (0.87-1.13) H 05/23/21 15:09 D-Dimer 4444.85 ng/mlDDU (0-234) H 05/23/21 15:09 Abnormal lab findings: Abnormal Labs 05/23/21 05/23/21 05/23/21 15:00 15:09 15:09 WBC Hgb MCV 95 H MCHC 30 L RDW 20.1 H Plt Count Lymph % (Auto) 5.9 L Lymph # (Auto) 0.6 L Seg Neutrophils % 87.5 H Seg Neuts % (Manual) Lymphocytes % (Manual) Seg Neutrophils # 8.2 H Seg Neutrophils # Man Lymphocytes # (Manual) PT 18.1 H INR 1.36 H APTT 23.1 L D-Dimer ABG pH 7.215 L POC ABG pCO2 POC ABG pO2 ABG pO2 ABG HCO3 28.4 H ABG O2 Saturation ABG Base Excess ABG Hemoglobin 13.5 L ABG Oxyhemoglobin ABG Potassium ABG Glucose Oxyhemoglobin 92.6 L Potassium Carbon Dioxide BUN Creatinine Glucose POC Glucose Calcium Magnesium AST ALT Ammonia Total Creatine Kinase Troponin T C-Reactive Protein NT-Pro-B Natriuret Pep Albumin HDL Cholesterol Arterial Blood Glucose Urine WBC (Auto) Urine Creatinine Salicylates Acetaminophen 05/23/21 05/23/21 05/23/21 15:09 15:09 15:09 WBC Hgb MCV MCHC RDW Plt Count Lymph % (Auto) Lymph # (Auto) Seg Neutrophils % Seg Neuts % (Manual) Lymphocytes % (Manual) Seg Neutrophils # Seg Neutrophils # Man Lymphocytes # (Manual) PT INR APTT D-Dimer ABG pH POC ABG pCO2 POC ABG pO2 ABG pO2 ABG HCO3 ABG O2 Saturation ABG Base Excess ABG Hemoglobin ABG Oxyhemoglobin ABG Potassium ABG Glucose Oxyhemoglobin Potassium 5.2 H Carbon Dioxide BUN 40 H Creatinine 3.2 H Glucose 133 H POC Glucose Calcium Magnesium AST 1094 H ALT 1089 H Ammonia 75.0 H Total Creatine Kinase Troponin T 0.038 H C-Reactive Protein NT-Pro-B Natriuret Pep Albumin 3.0 L HDL Cholesterol 29 L Arterial Blood Glucose Urine WBC (Auto) Urine Creatinine Salicylates < 0.3 L Acetaminophen 05/23/21 05/23/21 05/23/21 15:09 15:09 15:09 WBC Hgb MCV MCHC RDW Plt Count Lymph % (Auto) Lymph # (Auto) Seg Neutrophils % Seg Neuts % (Manual) Lymphocytes % (Manual) Seg Neutrophils # Seg Neutrophils # Man Lymphocytes # (Manual) PT INR APTT D-Dimer 4444.85 H ABG pH POC ABG pCO2 POC ABG pO2 ABG pO2 ABG HCO3 ABG O2 Saturation ABG Base Excess ABG Hemoglobin ABG Oxyhemoglobin ABG Potassium ABG Glucose Oxyhemoglobin Potassium Carbon Dioxide BUN Creatinine Glucose POC Glucose Calcium Magnesium AST ALT Ammonia Total Creatine Kinase 48 L Troponin T C-Reactive Protein NT-Pro-B Natriuret Pep 70087 H Albumin HDL Cholesterol Arterial Blood Glucose Urine WBC (Auto) Urine Creatinine Salicylates Acetaminophen 5.0 L 05/23/21 05/23/21 05/23/21 19:10 20:48 Unknown WBC Hgb MCV MCHC RDW Plt Count Lymph % (Auto) Lymph # (Auto) Seg Neutrophils % Seg Neuts % (Manual) Lymphocytes % (Manual) Seg Neutrophils # Seg Neutrophils # Man Lymphocytes # (Manual) PT INR APTT D-Dimer ABG pH 7.332 L POC ABG pCO2 POC ABG pO2 ABG pO2 74.0 L ABG HCO3 ABG O2 Saturation 94.4 L ABG Base Excess ABG Hemoglobin 12.5 L ABG Oxyhemoglobin ABG Potassium ABG Glucose Oxyhemoglobin 92.3 L Potassium Carbon Dioxide BUN Creatinine Glucose POC Glucose Calcium Magnesium AST ALT Ammonia Total Creatine Kinase Troponin T C-Reactive Protein 10.00 H NT-Pro-B Natriuret Pep Albumin HDL Cholesterol Arterial Blood Glucose Urine WBC (Auto) 34.0 H Urine Creatinine Salicylates Acetaminophen 05/24/21 05/24/21 05/24/21 04:55 04:55 09:15 WBC Hgb MCV 95 H MCHC 31 L RDW 19.4 H Plt Count Lymph % (Auto) Lymph # (Auto) Seg Neutrophils % Seg Neuts % (Manual) 97.0 H Lymphocytes % (Manual) 3.0 L Seg Neutrophils # Seg Neutrophils # Man 8.4 H Lymphocytes # (Manual) 0.3 L PT INR APTT D-Dimer ABG pH POC ABG pCO2 POC ABG pO2 ABG pO2 90.6 H ABG HCO3 ABG O2 Saturation ABG Base Excess -3.7 L ABG Hemoglobin 13.5 L ABG Oxyhemoglobin ABG Potassium ABG Glucose Oxyhemoglobin Potassium 5.5 H Carbon Dioxide 20 L BUN 39 H Creatinine 2.2 H Glucose 155 H POC Glucose Calcium 8.3 L Magnesium AST 571 H ALT 951 H Ammonia Total Creatine Kinase Troponin T C-Reactive Protein NT-Pro-B Natriuret Pep Albumin 3.2 L HDL Cholesterol Arterial Blood Glucose Urine WBC (Auto) Urine Creatinine Salicylates Acetaminophen 05/25/21 05/25/21 05/25/21 04:20 14:37 14:37 WBC Hgb MCV 96 H MCHC 30 L RDW 20.7 H Plt Count Lymph % (Auto) Lymph # (Auto) Seg Neutrophils % Seg Neuts % (Manual) Lymphocytes % (Manual) Seg Neutrophils # Seg Neutrophils # Man Lymphocytes # (Manual) PT INR APTT D-Dimer ABG pH 7.222 L POC ABG pCO2 57.8 H POC ABG pO2 67.3 L ABG pO2 ABG HCO3 ABG O2 Saturation ABG Base Excess ABG Hemoglobin ABG Oxyhemoglobin 89.1 L ABG Potassium 5.1 H ABG Glucose 182 H Oxyhemoglobin Potassium 5.3 H Carbon Dioxide BUN 47 H Creatinine 2.0 H Glucose 154 H POC Glucose Calcium Magnesium AST 93 H ALT 590 H Ammonia Total Creatine Kinase Troponin T C-Reactive Protein NT-Pro-B Natriuret Pep Albumin 3.6 L HDL Cholesterol Arterial Blood Glucose 182 H Urine WBC (Auto) Urine Creatinine Salicylates Acetaminophen 05/25/21 05/25/21 05/26/21 21:50 23:30 05:31 WBC Hgb MCV MCHC RDW Plt Count Lymph % (Auto) Lymph # (Auto) Seg Neutrophils % Seg Neuts % (Manual) Lymphocytes % (Manual) Seg Neutrophils # Seg Neutrophils # Man Lymphocytes # (Manual) PT INR APTT D-Dimer ABG pH 7.328 L POC ABG pCO2 POC ABG pO2 ABG pO2 63.3 L ABG HCO3 ABG O2 Saturation 92.1 L ABG Base Excess -2.4 L ABG Hemoglobin 11.3 L ABG Oxyhemoglobin ABG Potassium ABG Glucose Oxyhemoglobin 90.3 L Potassium Carbon Dioxide BUN Creatinine Glucose POC Glucose 131 H 123 H Calcium Magnesium AST ALT Ammonia Total Creatine Kinase Troponin T C-Reactive Protein NT-Pro-B Natriuret Pep Albumin HDL Cholesterol Arterial Blood Glucose Urine WBC (Auto) Urine Creatinine Salicylates Acetaminophen 05/26/21 05/26/21 05/26/21 09:02 10:57 17:30 WBC Hgb MCV MCHC RDW Plt Count Lymph % (Auto) Lymph # (Auto) Seg Neutrophils % Seg Neuts % (Manual) Lymphocytes % (Manual) Seg Neutrophils # Seg Neutrophils # Man Lymphocytes # (Manual) PT INR APTT D-Dimer ABG pH 7.346 L POC ABG pCO2 POC ABG pO2 ABG pO2 60.5 L ABG HCO3 ABG O2 Saturation 90.7 L ABG Base Excess ABG Hemoglobin 13.1 L ABG Oxyhemoglobin ABG Potassium ABG Glucose Oxyhemoglobin 88.9 L Potassium Carbon Dioxide BUN Creatinine Glucose POC Glucose 127 H 141 H Calcium Magnesium AST ALT Ammonia Total Creatine Kinase Troponin T C-Reactive Protein NT-Pro-B Natriuret Pep Albumin HDL Cholesterol Arterial Blood Glucose Urine WBC (Auto) Urine Creatinine Salicylates Acetaminophen 05/26/21 05/26/21 05/26/21 21:00 Unknown Unknown WBC 4.2 L Hgb 11.7 L MCV MCHC 31 L RDW 20.3 H Plt Count 132 L Lymph % (Auto) Lymph # (Auto) Seg Neutrophils % Seg Neuts % (Manual) Lymphocytes % (Manual) Seg Neutrophils # Seg Neutrophils # Man Lymphocytes # (Manual) PT INR APTT D-Dimer ABG pH POC ABG pCO2 POC ABG pO2 56.7 L ABG pO2 ABG HCO3 ABG O2 Saturation ABG Base Excess ABG Hemoglobin ABG Oxyhemoglobin 88.8 L ABG Potassium 4.7 H ABG Glucose 152 H Oxyhemoglobin Potassium 5.2 H Carbon Dioxide BUN 47 H Creatinine 2.0 H Glucose 136 H POC Glucose Calcium Magnesium AST 64 H ALT 448 H Ammonia Total Creatine Kinase Troponin T C-Reactive Protein NT-Pro-B Natriuret Pep Albumin 3.4 L HDL Cholesterol Arterial Blood Glucose 152 H Urine WBC (Auto) Urine Creatinine Salicylates Acetaminophen 05/26/21 05/27/21 05/27/21 Unknown 08:00 08:00 WBC 4.2 L Hgb MCV MCHC RDW 21.2 H Plt Count 126 L Lymph % (Auto) Lymph # (Auto) Seg Neutrophils % Seg Neuts % (Manual) Lymphocytes % (Manual) Seg Neutrophils # Seg Neutrophils # Man Lymphocytes # (Manual) PT INR APTT D-Dimer ABG pH POC ABG pCO2 POC ABG pO2 ABG pO2 ABG HCO3 ABG O2 Saturation ABG Base Excess ABG Hemoglobin ABG Oxyhemoglobin ABG Potassium ABG Glucose Oxyhemoglobin Potassium Carbon Dioxide BUN 52 H Creatinine 1.8 H Glucose 171 H POC Glucose Calcium 8.3 L Magnesium AST ALT Ammonia Total Creatine Kinase Troponin T C-Reactive Protein NT-Pro-B Natriuret Pep Albumin HDL Cholesterol Arterial Blood Glucose Urine WBC (Auto) Urine Creatinine 128.6 H Salicylates Acetaminophen 05/27/21 05/27/21 05/27/21 10:15 11:48 17:13 WBC Hgb MCV MCHC RDW Plt Count Lymph % (Auto) Lymph # (Auto) Seg Neutrophils % Seg Neuts % (Manual) Lymphocytes % (Manual) Seg Neutrophils # Seg Neutrophils # Man Lymphocytes # (Manual) PT INR APTT D-Dimer ABG pH 7.300 L POC ABG pCO2 POC ABG pO2 ABG pO2 42.1 L ABG HCO3 ABG O2 Saturation 72.8 L ABG Base Excess ABG Hemoglobin 12.7 L ABG Oxyhemoglobin ABG Potassium ABG Glucose Oxyhemoglobin 71.4 L Potassium Carbon Dioxide BUN Creatinine Glucose POC Glucose 139 H 145 H Calcium Magnesium AST ALT Ammonia Total Creatine Kinase Troponin T C-Reactive Protein NT-Pro-B Natriuret Pep Albumin HDL Cholesterol Arterial Blood Glucose Urine WBC (Auto) Urine Creatinine Salicylates Acetaminophen 11/11/1205/28/21 05/28/21 05:30 11:37 13:32 WBC Hgb MCV MCHC RDW Plt Count Lymph % (Auto) Lymph # (Auto) Seg Neutrophils % Seg Neuts % (Manual) Lymphocytes % (Manual) Seg Neutrophils # Seg Neutrophils # Man Lymphocytes # (Manual) PT INR APTT D-Dimer ABG pH 7.339 L POC ABG pCO2 POC ABG pO2 ABG pO2 53.7 L ABG HCO3 ABG O2 Saturation 86.5 L ABG Base Excess ABG Hemoglobin 12.3 L ABG Oxyhemoglobin ABG Potassium ABG Glucose Oxyhemoglobin 84.6 L Potassium Carbon Dioxide BUN 53 H Creatinine 1.6 H Glucose 118 H POC Glucose 115 H Calcium 8.0 L Magnesium 2.40 H AST ALT Ammonia Total Creatine Kinase Troponin T C-Reactive Protein NT-Pro-B Natriuret Pep Albumin HDL Cholesterol Arterial Blood Glucose Urine WBC (Auto) Urine Creatinine Salicylates Acetaminophen 05/28/21 05/29/21 Unknown 09:43 WBC Hgb 11.7 L MCV MCHC 31 L RDW 21.3 H Plt Count 121 L Lymph % (Auto) Lymph # (Auto) Seg Neutrophils % Seg Neuts % (Manual) Lymphocytes % (Manual) Seg Neutrophils # Seg Neutrophils # Man Lymphocytes # (Manual) PT INR APTT D-Dimer ABG pH POC ABG pCO2 POC ABG pO2 ABG pO2 60.9 L ABG HCO3 ABG O2 Saturation 90.7 L ABG Base Excess ABG Hemoglobin 12.0 L ABG Oxyhemoglobin ABG Potassium ABG Glucose Oxyhemoglobin 88.9 L Potassium Carbon Dioxide BUN Creatinine Glucose POC Glucose Calcium Magnesium AST ALT Ammonia Total Creatine Kinase Troponin T C-Reactive Protein NT-Pro-B Natriuret Pep Albumin HDL Cholesterol Arterial Blood Glucose Urine WBC (Auto) Urine Creatinine Salicylates Acetaminophen Allied health notes reviewed: nursing
[2021-05-29] MEDS: APIXABAN 2.5 MG TAB PO SCH ×2 (13:23→21:58)
[2021-05-29 13:46] LABS: Hematocrit 36.4 % (35.5-45.6); Mean Corpuscular HGB Conc 33 % (32-34); Mean Corpuscular Volume 93 fl (84-94); Platelet Count 103 K/mm3 (140-440); Red Blood Count 3.92 M/mm3 (3.65-5.03)
[2021-05-29 13:57] LABS: INR 1.09 (0.87-1.13)
[2021-05-29 13:58] LABS: Partial Thromboplastin Time 25.7 Sec. (24.2-36.6)
[2021-05-29 14:10] LABS: Red Cell Distribution Width 20.9 % (13.2-15.2)
--- NOTE | 2021-05-29 17:07 | Progress Note ---
Assessment and Plan Assessment and plan: This is a 41-year-old male with acute hypoxic respiratory failure, elevated D- dimer, acute kidney injury, hyperkalemia and transaminitis Neuro: Acute metabolic encephalopathy -CT head and C-spine negative for acute process -TSH WNL -Patient is sedated with propofol and fentanyl -Goal RASS 0 to -1 -Avoid delirium -Reorientation as needed -Maintain sleep-wake cycle Cardio: Hypotension, possible CHF, h/o HTN -Cardiology consulted, appreciate recommendations -S/p Levophed -echocardiogram showed mild to moderate dilated right heart chambers, LVEF 55% -Cardiology recommends conservative cardiac management -Patient currently not hypertensive -No home antihypertensive regimen found on home med list -Blood pressure monitoring per protocol -As needed hydralazine Respiratory: Acute possibly on chronic hypoxemic and hypercapnic respiratory failure, ARDS, h/o sleep apnea -CCM/pulmonary consulted, appreciate recommendations -Patient intubated on 05/23 for airway protection in the ED -Intubated with 7.50 ETT at 24 the lips -pm ABG noted -A.m. vent settings: Assist control tidal volume 450, rate 25, PEEP 14, FiO2 70% -See RT notes for titration -VAP bundle GI: Transaminitis, morbid obesity -NTR consult for tube feedings -Tube feedings Nepro at 45 mL's per hour -Free water flush 175 mL/4hr -24-hour +639 -Presented with elevated LFTs which are now improving -Trend LFTs : Acute renal failure secondary to vasomotor nephropathy -Nephrology consulted, appreciate recommendations -Garcia catheter for strict intake and output -Avoid nephrotoxic medications -Renally dose medications -Renal calculated at 0.41% indicating prerenal -Patient admitted with volume overload (proBNP 25019) ID: CAP, leukopenia, coag negative Staphylococcus in blood culture / -CT C-spine showed right upper lobe pneumonia -Antibiotic therapy with cefepime and azithromycin -Monitor fever and WBC curve -05/23 UC, tracheal aspirate no growth to date -05/23 blood culture with coag negative staph in 1 of 2 bottles Endo: NAD -Accu-Cheks every 6 while on tube feedings -No indication for SSI at this time -Avoid hypoglycemia -Target blood glucose while critically ill less than 180 Heme: Elevated D-dimer, h/o PE/DVT -VQ scan unable to be performed due to patient being intubated -CTA head unable to be performed due to renal function and size -restarted on home eliquis -SCDs to bilateral lower extremity while in bed -Echocardiogram shows no right heart strain -Trend CBC -Transfuse for hemoglobin less than 7 -Bilateral lower extremity Doppler ultrasound negative for DVT The high probability of a clinically significant, sudden or life threatening deterioration of the [renal/pulm] system(s) required my full and direct attention, intervention and personal management. The aggregate critical care time was [60] minutes. This time is in addition to time spent performing reported procedures but includes the following: [x] Data Review and interpretation [x] Patient assessment and monitoring of vital signs [x] Documentation [x] Medication orders and management Disposition Plan: icu Total Time Spent with Patient (Minutes): 60 History Interval history: This is a 41-year-old male who has HTN, REVA and morbid obesity who presents to the emergency department on 05/23 via EMS for severe respiratory distress. Upon EMS arrival patient was found to be altered and sedated from bed to floor and reports noncompliant with CPAP/BiPAP. Patient received bag valve mask ventilation via nasal trumpet with EMS on route. Work-up in the emergency department included a CXR which showed [place] [address], elevated troponin at 0.038, elevated D-dimer, acute kidney injury, hyperkalemia and transaminitis. Patient was intubated in the emergency department for for airway protection as he was reported to be obtunded and without a gag reflex. Patient did receive Narcan in the field by EMS however there was no reported affect. Hospital course to date: 05/24/2021: Patient intubated and sedated. VQ scan ordered secondary to elevated D-dimer. Cardiology consulted secondary to elevated troponin and elevated BNP. Echocardiogram ordered and pending. 05/25/2021: Patient still intubated. Responsive to commands. Hypotensive, norepinephrine increased to 15mcg. Unable to get V/Q scan due to body habitus. 05/26: Overnight patient experienced desaturation to the 80s and FiO2 was increased. This morning on ABG patient exhibited hypoxemia and FiO2 was unchanged. CCM later increased PEEP and decrease FiO2. Nephrology was consulted due to no recovery in renal function noted. Urine lites were ordered. Hyperkalemia treated medically. 05/27: Patient remains sedated on fentanyl and propofol, [facility] will taper Solu- Medrol and repeat ABG in 0. Patient received 40 mg of Lasix x1. Slight improvement to renal function noted 05/28: [facility] has started revatio for pulmonary hypertension, we will repeat Lasix today as patient had improvement in renal function. No acute events reported overnight. 05/29: 1900 ABG with improved hypoxia, good UOP noted from lasix. Repeat labs for am. no acute events reported oovernight Hospitalist Physical - Constitutional Vitals: Temp Pulse Resp BP Pulse Ox 97.5 F L 108 H 25 H 100/64 93 05/29/21 12:00 05/29/21 17:00 05/29/21 17:00 05/29/21 17:00 05/29/21 17:00 General appearance: Present: no acute distress, other (Intubated) - EENT Eyes: Present: PERRL, EOM intact ENT: clear oral mucosa - Neck Neck: Present: normal ROM - Respiratory Respiratory effort: normal Respiratory: bilateral: diminished - Cardiovascular Rhythm: regular Heart Sounds: Present: S1 & S2. Absent: systolic murmur, diastolic murmur - Extremities Extremities: no ischemia, pulses intact, pulses symmetrical, normal temperature, normal color Peripheral Pulses: within normal limits - Abdominal General gastrointestinal: soft, non-tender, non-distended, normal bowel sounds - Integumentary Integumentary: Present: warm, dry - Psychiatric Psychiatric: other (sedated) - Neurologic Neurologic: moves all extremities, other - Allied Health Allied health notes reviewed: nursing, RT, social work HEART Score - HEART Score Troponin: Troponin T 0.038 ng/mL (0.00-0.029) H 05/23/21 15:09 Results - Labs CBC & Chem 7: 05/29/21 13:40 05/29/21 13:40 Labs: Laboratory Last Values WBC 7.3 K/mm3 (4.5-11.0) 05/29/21 13:40 RBC 3.92 M/mm3 (3.65-5.03) 05/29/21 13:40 Hgb 12.0 gm/dl (11.8-15.2) 05/29/21 13:40 Hct 36.4 % (35.5-45.6) 05/29/21 13:40 MCV 93 fl (84-94) 05/29/21 13:40 MCH 31 pg (28-32) 05/29/21 13:40 MCHC 33 % (32-34) 05/29/21 13:40 RDW 20.9 % (13.2-15.2) H 05/29/21 13:40 Plt Count 103 K/mm3 (140-440) L 05/29/21 13:40 Lymph % (Auto) 5.9 % (13.4-35.0) L 05/23/21 15:09 [place] % (Auto) 6.1 % (0.0-7.3) 05/23/21 15:09 Eos % (Auto) 0.2 % (0.0-4.3) 05/23/21 15:09 Baso % (Auto) 0.3 % (0.0-1.8) 05/23/21 15:09 Lymph # (Auto) 0.6 K/mm3 (1.2-5.4) L 05/23/21 15:09 [place] # (Auto) 0.6 K/mm3 (0.0-0.8) 05/23/21 15:09 Eos # (Auto) 0.0 K/mm3 (0.0-0.4) 05/23/21 15:09 Baso # (Auto) 0.0 K/mm3 (0.0-0.1) 05/23/21 15:09 Add Manual Diff Complete 05/24/21 04:55 Total Counted 100 05/24/21 04:55 Seg Neutrophils % Hand Glove Cleaner 05/24/21 04:55 Seg Neuts % (Manual) 97.0 % (40.0-70.0) H 05/24/21 04:55 Lymphocytes % (Manual) 3.0 % (13.4-35.0) L 05/24/21 04:55 Nucleated RBC % Not Reportable 05/24/21 04:55 Seg Neutrophils # 8.2 K/mm3 (1.8-7.7) H 05/23/21 15:09 Seg Neutrophils # Man 8.4 K/mm3 (1.8-7.7) H 05/24/21 04:55 Band Neutrophils # 0.0 K/mm3 05/24/21 04:55 Lymphocytes # (Manual) 0.3 K/mm3 (1.2-5.4) L 05/24/21 04:55 Abs React Lymphs (Man) 0.0 K/mm3 05/24/21 04:55 Monocytes # (Manual) 0.0 K/mm3 (0.0-0.8) 05/24/21 04:55 Eosinophils # (Manual) 0.0 K/mm3 (0.0-0.4) 05/24/21 04:55 Basophils # (Manual) 0.0 K/mm3 (0.0-0.1) 05/24/21 04:55 Metamyelocytes # 0.0 K/mm3 05/24/21 04:55 Myelocytes # 0.0 K/mm3 05/24/21 04:55 Promyelocytes # 0.0 K/mm3 05/24/21 04:55 Blast Cells # 0.0 K/mm3 05/24/21 04:55 WBC Morphology Not Reportable 05/24/21 04:55 Hypersegmented Neuts Not Reportable 05/24/21 04:55 Hyposegmented Neuts Not Reportable 05/24/21 04:55 Hypogranular Neuts Not Reportable 05/24/21 04:55 Smudge Cells Not Reportable 05/24/21 04:55 Toxic Granulation Not Reportable 05/24/21 04:55 Toxic Vacuolation Not Reportable 05/24/21 04:55 Dohle Bodies Not Reportable 05/24/21 04:55 Pelger-Huet Anomaly Not Reportable 05/24/21 04:55 Cynthia Rods Not Reportable 05/24/21 04:55 Platelet Estimate Consistent w auto 05/24/21 04:55 Clumped Platelets Not Reportable 05/24/21 04:55 Plt Clumps, EDTA Not Reportable 05/24/21 04:55 Large Platelets Not Reportable 05/24/21 04:55 Giant Platelets Not Reportable 05/24/21 04:55 Platelet Satelliting Not Reportable 05/24/21 04:55 Plt Morphology Comment Not Reportable 05/24/21 04:55 RBC Morphology Not Reportable 05/24/21 04:55 Dimorphic RBCs Not Reportable 05/24/21 04:55 Polychromasia Not Reportable 05/24/21 04:55 Hypochromasia Not Reportable 05/24/21 04:55 Poikilocytosis Not Reportable 05/24/21 04:55 Anisocytosis 1+ 05/24/21 04:55 Microcytosis Not Reportable 05/24/21 04:55 Macrocytosis Not Reportable 05/24/21 04:55 Spherocytes Not Reportable 05/24/21 04:55 Pappenheimer Bodies Not Reportable 05/24/21 04:55 Sickle Cells Not Reportable 05/24/21 04:55 Target Cells Not Reportable 05/24/21 04:55 Tear Drop Cells Not Reportable 05/24/21 04:55 Ovalocytes Not Reportable 05/24/21 04:55 Helmet Cells Not Reportable 05/24/21 04:55 James-Cantril Bodies Not Reportable 05/24/21 04:55 [place] Rings Not Reportable 05/24/21 04:55 Luis Cells Not Reportable 05/24/21 04:55 Bite Cells Not Reportable 05/24/21 04:55 Crenated Cell Not Reportable 05/24/21 04:55 Elliptocytes Not Reportable 05/24/21 04:55 Acanthocytes (Spur) Not Reportable 05/24/21 04:55 Rouleaux Not Reportable 05/24/21 04:55 Hemoglobin C Crystals Not Reportable 05/24/21 04:55 Schistocytes Not Reportable 05/24/21 04:55 Malaria parasites Not Reportable 05/24/21 04:55 Uli Bodies Not Reportable 05/24/21 04:55 Hem Pathologist Commnt No 05/24/21 04:55 PT 15.3 Sec. (12.2-14.9) H 05/29/21 13:40 INR 1.09 (0.87-1.13) 05/29/21 13:40 APTT 25.7 Sec. (24.2-36.6) 05/29/21 13:40 D-Dimer 4444.85 ng/mlDDU (0-234) H 05/23/21 15:09 ABG pH 7.350 pH Units (7.350-7.450) 05/29/21 09:43 POC ABG pCO2 40.1 mmHg (32.0-48.0) 05/26/21 21:00 ABG pCO2 45.6 mm Hg 05/29/21 09:43 POC ABG pO2 56.7 mmHg (83-108) L 05/26/21 21:00 ABG pO2 60.9 mm Hg (80.0-90.0) L 05/29/21 09:43 POC ABG HCO3 23.8 05/26/21 21:00 ABG HCO3 24.6 mmol/L (20.0-26.0) 05/29/21 09:43 ABG O2 Saturation 90.7 % (95.0-99.0) L 05/29/21 09:43 ABG O2 Content 15.0 (0.0-44) 05/29/21 09:43 POC ABG Base Excess -1.0 05/26/21 21:00 ABG Base Excess -1.2 mmol/L (-2.0-3.0) 05/29/21 09:43 ABG Hemoglobin 12.0 gm/dl (14.0-18.0) L 05/29/21 09:43 ABG Oxyhemoglobin 88.8 (94-98) L 05/26/21 21:00 ABG Carboxyhemoglobin 1.5 % (0.0-5.0) 05/29/21 09:43 ABG Methemoglobin 0.5 % (0.0-1.5) 05/29/21 09:43 ABG Sodium 140.4 mmol/L (136.0-145.0) 05/26/21 21:00 ABG Potassium 4.7 mmol/L (3.40-4.50) H 05/26/21 21:00 ABG Chloride 107.0 mmol/L (98-107) 05/26/21 21:00 ABG Glucose 152 mg/dL (65-95) H 05/26/21 21:00 Oxyhemoglobin 88.9 % (95.0-99.0) L 05/29/21 09:43 Carboxyhemoglobin 0.8 (0.5-1.5) 05/26/21 21:00 FiO2 70 % 05/29/21 09:43 FiO2 % 85.0 05/26/21 21:00 Sodium 138 mmol/L (137-145) 05/28/21 05:30 Potassium 4.2 mmol/L (3.6-5.0) 05/28/21 05:30 Chloride 104.8 mmol/L (98-107) 05/28/21 05:30 Carbon Dioxide 23 mmol/L (22-30) 05/28/21 05:30 Anion Gap 14 mmol/L 05/28/21 05:30 BUN 53 mg/dL (9-20) H 05/28/21 05:30 Creatinine 1.7 mg/dL (0.8-1.3) H 05/29/21 13:40 Estimated GFR 53 ml/min 05/29/21 13:40 BUN/Creatinine Ratio 33 % 05/28/21 05:30 Glucose 118 mg/dL (75-100) H 05/28/21 05:30 POC Glucose 104 mg/dL (70-105) 05/29/21 16:53 Lactic Acid 1.50 mmol/L (0.7-2.0) 05/23/21 15:09 Calcium 8.0 mg/dL (8.4-10.2) L 05/28/21 05:30 Phosphorus 2.90 mg/dL (2.5-4.5) 05/28/21 05:30 Magnesium 2.40 mg/dL (1.7-2.3) H 05/28/21 05:30 Total Bilirubin 0.60 mg/dL (0.1-1.2) 05/26/21 Unknown AST 64 units/L (5-40) H 05/26/21 Unknown ALT 448 units/L (7-56) H 05/26/21 Unknown Alkaline Phosphatase 58 units/L (35-129) 05/26/21 Unknown Ammonia 30.0 umol/L (25-60) 05/24/21 04:55 Total Creatine Kinase 48 units/L (55-170) L 05/23/21 15:09 Troponin T 0.038 ng/mL (0.00-0.029) H 05/23/21 15:09 C-Reactive Protein 10.00 mg/dL (0.00-1.30) H 05/23/21 19:10 NT-Pro-B Natriuret Pep 23525 pg/mL (0-450) H 05/23/21 15:09 Total Protein 7.0 g/dL (6.3-8.2) 05/26/21 Unknown Albumin 3.4 g/dL (3.9-5) L 05/26/21 Unknown Albumin/Globulin Ratio 0.9 % 05/26/21 Unknown Triglycerides 88 mg/dL (2-149) 05/23/21 15:09 Cholesterol 106 mg/dL (50-199) 05/23/21 15:09 LDL Cholesterol Direct 58 mg/dL (50-130) 05/23/21 15:09 HDL Cholesterol 29 mg/dL (40-59) L 05/23/21 15:09 Cholesterol/HDL Ratio 3.65 % 05/23/21 15:09 Procalcitonin 0.83 ng/mL (<0.15) 05/23/21 15:09 TSH 2.380 mlU/mL (0.270-4.200) 05/23/21 15:09 Arterial Blood Glucose 152 mg/dL (65-95) H 05/26/21 21:00 Urine Color [place] (Yellow) 05/23/21 Unknown Urine Turbidity Slightly-cloudy (Clear) 05/23/21 Unknown Urine pH 5.0 (5.0-7.0) 05/23/21 Unknown Ur Specific [place] 1.014 (1.003-1.030) 05/23/21 Unknown Urine Protein 30 mg/dl mg/dL (Negative) 05/23/21 Unknown Urine Glucose (UA) Neg mg/dL (Negative) 05/23/21 Unknown Urine Ketones Neg mg/dL (Negative) 05/23/21 Unknown Urine Blood Mod (Negative) 05/23/21 Unknown Urine Nitrite Neg (Negative) 05/23/21 Unknown Urine Bilirubin Neg (Negative) 05/23/21 Unknown Urine Urobilinogen 4.0 mg/dL (<2.0) 05/23/21 Unknown Ur Leukocyte Esterase Tr (Negative) 05/23/21 Unknown Urine WBC (Auto) 34.0 /HPF (0.0-6.0) H 05/23/21 Unknown Urine RBC (Auto) 20.0 /HPF (0.0-6.0) 05/23/21 Unknown U Epithel Cells (Auto) 2.0 /HPF (0-13.0) 05/23/21 Unknown Urine Bacteria (Auto) 1+ /HPF (Negative) 05/23/21 Unknown Urine Mucus Few /HPF 05/23/21 Unknown Urine Osmolality 612 Mosm/kg 05/26/21 Unknown Urine Creatinine 128.6 mg/dL (0.1-20.0) H 05/26/21 Unknown Urine Sodium 37 mmol/L 05/26/21 Unknown Urine Potassium 45.15 mmol/L 05/26/21 Unknown Urine Urea Nitrogen 989 05/26/21 Unknown Salicylates < 0.3 mg/dL (2.8-20.0) L 05/23/21 15:09 Urine Opiates Screen Negative 05/23/21 Unknown Urine Methadone Screen Negative 05/23/21 Unknown Acetaminophen 5.0 ug/mL (10.0-30.0) L 05/23/21 15:09 Ur Barbiturates Screen Negative 05/23/21 Unknown Ur Phencyclidine Scrn Negative 05/23/21 Unknown Ur Amphetamines Screen Negative 05/23/21 Unknown U Benzodiazepines Scrn Negative 05/23/21 Unknown Urine Cocaine Screen Negative 05/23/21 Unknown U Marijuana (THC) Screen Negative 05/23/21 Unknown Drugs of Abuse Note Disclamer 05/23/21 Unknown Plasma/Serum Alcohol < 0.01 % (0-0.07) 05/23/21 15:09 Coronavirus (PCR) Negative (Negative) 05/23/21 Unknown Blood Type O POSITIVE 05/23/21 15:01 Antibody Screen Negative 05/23/21 15:01 Microbiology: Microbiology 05/23/21 15:09 Peripheral/Venous Blood Culture - Final NO GROWTH AFTER 5 DAYS Garcia/IV: Voiding Method Indwelling Catheter Active Medications - Current Medications Current Medications: Generic Name Dose Route Start Last Admin Trade Name Freq PRN Reason Stop Dose Admin Acetaminophen 650 mg 05/23/21 20:42 Acetaminophen 325 Mg Tab PO Q4H PRN Pain MILD(1-3)/Fever >100.5/CASTORENA Albuterol 2.5 mg 05/23/21 21:11 Albuterol 2.5 Mg/3 Ml Nebu IH Q4HRT PRN Shortness Of Breath Albuterol/Ipratropium 1 ampul 05/29/21 08:00 05/29/21 15:39 Ipratropium/Albuterol Sulfate 3 Ml Ampul.Neb IH 1 ampul TIDRT ROSEMARIE Administration Lipase/Protease/Amylase 1 each 05/24/21 10:14 Lipase 10,500/Protease 25,000/Amylase 43,750 (Units) Dr Cap FEEDTUBE PRN PRN For Clogged Feeding Tube Apixaban 2.5 mg 05/29/21 13:00 05/29/21 13:23 Apixaban 2.5 Mg Tab PO 2.5 mg Q12HR ROSEMARIE Administration Protocol Famotidine 20 mg 05/27/21 10:00 05/29/21 09:25 Famotidine 20 Mg Tab FEEDTUBE 20 mg BID ROSEMARIE Administration Fentanyl 50 mcg 05/23/21 12:34 05/23/21 18:50 Fentanyl 100 Mcg/2 Ml Inj IV 50 mcg Q10MIN PRN Administration ANALGESIA Hydrophilic Ointment 1 applic 05/23/21 12:34 Lip Therapy Vaseline TP Q2HR PRN Dry Lips Fentanyl Citrate 2,000 mcg in 100 mls @ 8.528 mls/hr 05/23/21 13:00 05/29/21 13:24 Fentanyl Drip Premix IV 2 mcg/kg/hr TITR ROSEMARIE 17.055 mls/hr Administration Protocol 1 MCG/KG/HR NORepinephrine/NS 8 MG-250 ML 8 mg in 250 mls @ 3.75 mls/hr 05/24/21 20:00 05/25/21 15:20 Norepinephrine/Ns 8 Mg-250 Ml (Double Conc) IV 0 mcg/min TITRATE ROSEMARIE 0 mls/hr Titration Protocol 2 MCG/MIN Propofol 1,000 mg in 100 mls @ 5.117 mls/hr 05/25/21 19:00 05/29/21 13:24 Diprivan 10 Mg/Ml IV 20 mcg/kg/min TITR ROSEMARIE 20.466 mls/hr Administration Protocol 5 MCG/KG/MIN Multi-Ingred Cream/Lotion/Oil/Oint 1 applic 05/23/21 12:34 Mineral Oil/Petrolatum, White Ophth Oint 3.5 Gm OU Q4HR PRN Dry Eye(s) Ondansetron HCl 4 mg 05/23/21 20:42 Ondansetron 4 Mg/2 Ml Inj IV Q8H PRN Nausea And Vomiting Senna/Docusate Sodium 1 tab 05/23/21 22:00 05/29/21 09:21 Sennosides/Docusate Sodium 8.6/50 Mg Tab FEEDTUBE 1 tab BID ROSEMARIE Administration Sildenafil Citrate 20 mg 05/28/21 20:00 05/29/21 13:24 Sildenafil 20 Mg Tab PO 20 mg TID ROSEMARIE Administration Simple Syrup 15 ml 05/24/21 10:14 Simple Syrup 15 Ml FEEDTUBE PRN PRN Hypoglycemia Simple Syrup 30 ml 05/24/21 10:14 Simple Syrup 15 Ml FEEDTUBE PRN PRN Hypoglycemia Sodium Bicarbonate 325 mg 05/24/21 10:14 Sodium Bicarbonate 325 Mg Tab FEEDTUBE PRN PRN For Clogged Feeding Tube Sodium Chloride 10 ml 05/23/21 22:00 05/29/21 09:25 Sodium Chloride 0.9% 10 Ml Flush Syringe IV 10 ml BID ROSEMARIE Administration Sodium Chloride 10 ml 05/23/21 20:42 Sodium Chloride 0.9% 10 Ml Flush Syringe IV PRN PRN LINE FLUSH Nutrition/Malnutrition Assess - Dietary Evaluation Nutrition/Malnutrition Findings: Nutrition Notes Start: 05/24/21 09:53 Freq: Status: Active Protocol: Document 05/28/21 14:30 GB (Rec: 05/28/21 14:44 GB [id number]) Nutrition Notes Initial or Follow up Reassessment Current Diagnosis Acute Kidney Injury, Hypertension,Respiratory Failure Other Pertinent Diagnosis SIRS, encephalopathy, pneu, transaminitis Current Diet NPO, Tube Feeding Nepro @ 45m/ hr Labs/Tests 05/28: BUN 53, Creatinine 1.6, glucose 118, Ca 8, Mg 2.4 Pertinent Medications Fentanyl Citrate, Norepenephrin/NS 8 Mg 250, Propofol 30.699 ml/hr (810kcal ) Height 5 ft 8 in Weight 170.551 kg [place] Body Weight (kg) 70.00 BMI 57.2 Weight change and time frame No new weights recorded at time of assessment Weight Status Morbidly Obese Subjective/Other Information Pt continues Intubated/sedated 05/28: Chest Xray note: tubes in satisfactory position, No significant changes 05/28: note unresponsive on vent BM: no record at time of assessment Percent of energy/protein needs met: TF at goal meets 75% or greater of minimal estimated energy needs Burn Absent Trauma Absent GI Symptoms Other Difficulty In Swallowing Food Allergy No Skin Integrity/Comment wound to left toe Current % PO Other Minimum of two criteria No #1 Nutrition Diagnosis Swallowing difficulty Comments: 05/25: intubation/sedation continues. TF started 05/28: intubation/sedation continues. TF Nepro @ goal 45ml/hr Etiology ARF As Evidenced by Signs and Symptoms Intubated/sedated Diagnosis Progress(for reassessment Continues documentation) Is patient on ventilator? Yes Is Patient Ambulatory and/or Out of Bed No REE[facility]) 3092.088 Kcal/Kg value to use for calculation 12 Approximate Energy Requirements Using 2047 kcal/Kg Calculation Used for Recommendations Kcal/kg Additional Notes Protein: 0.6g/kg or greater @ 170kg Fluid: 1 ml/kcal or per MD Nutrition Intervention Change Diet Order: Continue NPO, Tube feeding Nutrition Support: Nepro 1.8 at 45 ml/hr Flush 175 ml q4h or per MD Total free water: TF@goal + flush = 1835ml Kcal 1,950 Protein (gm) 88 Carbohydrates (gm) 174 Fat (gm) 104 Fluid (mL) 788 Fiber (gm) 14 % RDI: 100%kcal / 86%pro Goal #1 Meet at least 75% or greater of EEN via TF 05/25: met, continues 05/28: met, continues Goal #2 TF (Nepro) at goal rate (45ml/ hr) by f/u 05/25: TF started 05/28: TF at goal. met, continues Follow-Up By: 06/02/21 Additional Comments F/u: TF tolerance, renal labs, vent status
--- NOTE | 2021-05-30 05:19 | XRay Report ---
CHEST 1 VIEW 05/30/2021 3:40 AM INDICATION / CLINICAL INFORMATION: follow up respiratory failure. COMPARISON: 05/29/21 FINDINGS: SUPPORT DEVICES: Unchanged. HEART / MEDIASTINUM: Stable. LUNGS / PLEURA: Bilateral pulmonary opacities are unchanged. No pneumothorax. ADDITIONAL FINDINGS: No significant additional findings. IMPRESSION: 1. No significant change. Signer Name: Gurinder Betancourt MD Signed: 05/30/2021 5:15 AM Workstation Name: [id number]
[2021-05-30 05:22] LABS: Hematocrit 36.7 % (35.5-45.6); Hemoglobin 11.7 gm/dl (11.8-15.2); Mean Corpuscular HGB Conc 32 % (32-34); Mean Corpuscular Volume 95 fl (84-94); Platelet Count 106 K/mm3 (140-440); Red Blood Count 3.87 M/mm3 (3.65-5.03)
[2021-05-30 05:45] LABS: Calcium 8.2 mg/dL (8.4-10.2)
[2021-05-30 05:48] LABS: Red Cell Distribution Width 20.8 % (13.2-15.2)
[2021-05-30] MEDS: fentaNYL DRIP Premix 2,000 MCG/100 ML BAG IV SCH ×4 (07:23→22:16)
[2021-05-30] MEDS: IPRATROPIUM/ALBUTEROL SULFATE 3 ML AMPUL.NEB IH SCH ×3 (08:08→19:11)
[2021-05-30 08:22] LABS: Calcium 8.5 mg/dL (8.4-10.2)
[2021-05-30] MEDS: SILDENAFIL 20 MG TAB PO SCH ×3 (09:33→22:14)
[2021-05-30] MEDS: SENNOSIDES/DOCUSATE SODIUM 8.6/50 MG TAB FEEDTUBE SCH ×2 (09:33→22:14)
[2021-05-30] MEDS: FAMOTIDINE 20 MG TAB FEEDTUBE SCH ×2 (09:33→22:14)
[2021-05-30 09:34] LABS: ABG Base Excess -1.9 mmol/L (-2.0-3.0); ABG HCO3 24.4 mmol/L (20.0-26.0); ABG Methemoglobin 0.5 % (0.0-1.5); ABG Oxygen Saturation 97.6 % (95.0-99.0); ABG PCO2 48.1 mm Hg; ABG PH 7.323 pH Units (7.350-7.450)
[2021-05-30] MEDS: APIXABAN 2.5 MG TAB PO SCH ×2 (09:34→22:14)
--- NOTE | 2021-05-30 09:52 | Progress Note ---
Assessment and Plan Acute Renal Failure likely on CKD Hypertension Acute Respiratory Failure Pneumonia, community-acquired Morbid obesity Obstructive sleep apnea Edema Plan: Cr stable. Renally dose medications Obtain daily weights Monitor I/O's daily Avoid nephrotoxic agents No acute indication for [employer] Will monitor renal function closely Subjective Date of service: 05/30/21 Principal diagnosis: Acute hypoxemic and hypercapnic resp failure; PUI COVID-19; Pneumonia; FERMIN Interval history: Making urine. Objective - Exam Narrative Exam: General appearance: Present: no acute distress, other (Intubated) - EENT Eyes: Present: PERRL, EOM intact ENT: clear oral mucosa - Neck Neck: Present: normal ROM - Respiratory Respiratory effort: normal Respiratory: bilateral: diminished - Cardiovascular Rhythm: regular Heart Sounds: Present: S1 & S2. Absent: systolic murmur, diastolic murmur - Extremities Extremities: no ischemia, pulses intact, pulses symmetrical, normal temperature, normal color Peripheral Pulses: within normal limits - Abdominal General gastrointestinal: soft, non-tender, non-distended, normal bowel sounds - Integumentary Integumentary: Present: warm, dry - Psychiatric Psychiatric: other (sedated) - Neurologic Neurologic: moves all extremities, other - Vital Signs Vital signs: Vital Signs - 12hr 05/29/21 05/29/21 05/29/21 22:00 22:15 22:30 Temperature Pulse Rate 98 H 98 H 93 H Pulse Rate [ Anterior Bilateral Throughout] Respiratory 25 H 25 H 25 H Rate Respiratory Rate [Anterior Bilateral Throughout] Blood Pressure 105/62 108/61 101/57 O2 Sat by Pulse 96 97 95 Oximetry 05/29/21 05/29/21 05/29/21 22:45 23:01 23:15 Temperature Pulse Rate 94 H 139 H 121 H Pulse Rate [ Anterior Bilateral Throughout] Respiratory 25 H 25 H 25 H Rate Respiratory Rate [Anterior Bilateral Throughout] Blood Pressure 101/57 148/100 124/73 O2 Sat by Pulse 95 93 96 Oximetry 05/29/21 05/29/21 05/29/21 23:24 23:30 23:45 Temperature Pulse Rate 123 H 109 H 127 H Pulse Rate [ Anterior Bilateral Throughout] Respiratory 25 H 25 H Rate Respiratory Rate [Anterior Bilateral Throughout] Blood Pressure 124/73 102/61 118/73 O2 Sat by Pulse 96 97 95 Oximetry 05/29/21 05/30/21 05/30/21 23:56 00:00 00:15 Temperature 98.8 F Pulse Rate 119 H 111 H Pulse Rate [ Anterior Bilateral Throughout] Respiratory 25 H 25 H Rate Respiratory Rate [Anterior Bilateral Throughout] Blood Pressure 116/70 108/60 O2 Sat by Pulse 96 95 Oximetry 05/30/21 05/30/21 05/30/21 00:30 00:45 01:00 Temperature Pulse Rate 110 H 102 H 98 H Pulse Rate [ Anterior Bilateral Throughout] Respiratory 25 H 25 H 25 H Rate Respiratory Rate [Anterior Bilateral Throughout] Blood Pressure 107/59 104/59 100/58 O2 Sat by Pulse 95 96 95 Oximetry 05/30/21 05/30/21 05/30/21 01:15 01:30 01:45 Temperature Pulse Rate 97 H 97 H 91 H Pulse Rate [ Anterior Bilateral Throughout] Respiratory 25 H 25 H 25 H Rate Respiratory Rate [Anterior Bilateral Throughout] Blood Pressure 106/63 104/63 105/60 O2 Sat by Pulse 95 95 97 Oximetry 05/30/21 05/30/21 05/30/21 02:00 02:15 02:30 Temperature Pulse Rate 87 93 H 92 H Pulse Rate [ Anterior Bilateral Throughout] Respiratory 25 H 25 H 25 H Rate Respiratory Rate [Anterior Bilateral Throughout] Blood Pressure 101/57 107/62 110/62 O2 Sat by Pulse 95 96 97 Oximetry 05/30/21 05/30/21 05/30/21 02:45 03:00 03:15 Temperature Pulse Rate 104 H 109 H 129 H Pulse Rate [ Anterior Bilateral Throughout] Respiratory 25 H 25 H 20 Rate Respiratory Rate [Anterior Bilateral Throughout] Blood Pressure 127/77 132/78 133/84 O2 Sat by Pulse 97 96 93 Oximetry 05/30/21 05/30/21 05/30/21 03:30 03:36 03:45 Temperature 99.5 F Pulse Rate 110 H 102 H Pulse Rate [ Anterior Bilateral Throughout] Respiratory 25 H 25 H Rate Respiratory Rate [Anterior Bilateral Throughout] Blood Pressure 125/80 120/73 O2 Sat by Pulse 96 97 Oximetry 05/30/21 05/30/21 05/30/21 04:00 04:15 04:30 Temperature Pulse Rate 111 H 119 H 106 H Pulse Rate [ Anterior Bilateral Throughout] Respiratory 25 H 25 H 25 H Rate Respiratory Rate [Anterior Bilateral Throughout] Blood Pressure 130/82 130/82 110/67 O2 Sat by Pulse 97 95 96 Oximetry 05/30/21 05/30/21 05/30/21 04:41 04:45 05:00 Temperature Pulse Rate 114 H 111 H 110 H Pulse Rate [ Anterior Bilateral Throughout] Respiratory 25 H 25 H Rate Respiratory Rate [Anterior Bilateral Throughout] Blood Pressure 130/82 125/77 92/35 O2 Sat by Pulse 96 96 95 Oximetry 05/30/21 05/30/21 05/30/21 05:15 05:30 05:45 Temperature Pulse Rate 106 H 115 H 101 H Pulse Rate [ Anterior Bilateral Throughout] Respiratory 25 H 25 H 25 H Rate Respiratory Rate [Anterior Bilateral Throughout] Blood Pressure 98/47 106/50 89/45 O2 Sat by Pulse 96 96 96 Oximetry 05/30/21 05/30/21 05/30/21 06:00 06:15 06:30 Temperature Pulse Rate 102 H 112 H 99 H Pulse Rate [ Anterior Bilateral Throughout] Respiratory 24 25 H 25 H Rate Respiratory Rate [Anterior Bilateral Throughout] Blood Pressure 89/46 98/52 83/41 O2 Sat by Pulse 96 94 96 Oximetry 05/30/21 05/30/21 05/30/21 06:45 07:00 07:15 Temperature Pulse Rate 103 H 98 H 107 H Pulse Rate [ Anterior Bilateral Throughout] Respiratory 25 H 25 H 25 H Rate Respiratory Rate [Anterior Bilateral Throughout] Blood Pressure 112/64 91/50 91/50 O2 Sat by Pulse 96 96 96 Oximetry 05/30/21 05/30/21 05/30/21 07:30 07:39 08:08 Temperature 99.5 F Pulse Rate 101 H Pulse Rate [ 133 H Anterior Bilateral Throughout] Respiratory 25 H Rate Respiratory 36 H Rate [Anterior Bilateral Throughout] Blood Pressure 100/55 O2 Sat by Pulse 96 Oximetry 05/30/21 08:10 Temperature Pulse Rate 105 H Pulse Rate [ Anterior Bilateral Throughout] Respiratory Rate Respiratory Rate [Anterior Bilateral Throughout] Blood Pressure 103/55 O2 Sat by Pulse 96 Oximetry - Lab 05/30/21 04:42 05/30/21 07:47 Most recent lab results ABG pH 7.323 pH Units (7.350-7.450) L 05/30/21 09:22 ABG pCO2 48.1 mm Hg 05/30/21 09:22 ABG pO2 107.0 mm Hg (80.0-90.0) H 05/30/21 09:22 ABG HCO3 24.4 mmol/L (20.0-26.0) 05/30/21 09:22 ABG O2 Saturation 97.6 % (95.0-99.0) 05/30/21 09:22 Calcium 8.5 mg/dL (8.4-10.2) 05/30/21 07:47 Phosphorus 2.90 mg/dL (2.5-4.5) 05/28/21 05:30 Magnesium 2.40 mg/dL (1.7-2.3) H 05/28/21 05:30 Urine Creatinine 128.6 mg/dL (0.1-20.0) H 05/26/21 Unknown Urine Sodium 37 mmol/L 05/26/21 Unknown Medications & Allergies - Medications Allergies/Adverse Reactions: Allergies No Known Allergies Allergy (Unverified 05/25/21 12:48) Home Medications: Home Medications Medication Instructions Recorded Confirmed Last Taken Type Amoxicillin [Amoxicillin TAB] 875 mg PO BID #20 tablet 11/12/14 05/29/21 Unknown Rx Apixaban 2.5 mg PO BID 05/29/21 05/29/21 Unknown History Cholecalciferol (Vitamin D3) 3 mg PO 1XW 05/29/21 05/29/21 Unknown History Metoprolol 150 mg PO BID 05/29/21 05/29/21 Unknown History Torsemide 80 mg PO DAILY 05/29/21 05/29/21 Unknown History Active Medications: Generic Name Dose Route Start Last Admin Trade Name Freq PRN Reason Stop Dose Admin Acetaminophen 650 mg 05/23/21 20:42 Acetaminophen 325 Mg Tab PO Q4H PRN Pain MILD(1-3)/Fever >100.5/CASTORENA Albuterol 2.5 mg 05/23/21 21:11 Albuterol 2.5 Mg/3 Ml Nebu IH Q4HRT PRN Shortness Of Breath Albuterol/Ipratropium 1 ampul 05/29/21 08:00 05/30/21 08:08 Ipratropium/Albuterol Sulfate 3 Ml Ampul.Neb IH 1 ampul TIDRT ROSEMARIE Administration Lipase/Protease/Amylase 1 each 05/24/21 10:14 Lipase 10,500/Protease 25,000/Amylase 43,750 (Units) Dr Higgins FEEDTUBE PRN PRN For Clogged Feeding Tube Apixaban 2.5 mg 05/29/21 13:00 05/30/21 09:34 Apixaban 2.5 Mg Tab PO 2.5 mg Q12HR ROSEMARIE Administration Protocol Famotidine 20 mg 05/27/21 10:00 05/30/21 09:33 Famotidine 20 Mg Tab FEEDTUBE 20 mg BID ROSEMARIE Administration Fentanyl 50 mcg 05/23/21 12:34 05/23/21 18:50 Fentanyl 100 Mcg/2 Ml Inj IV 50 mcg Q10MIN PRN Administration ANALGESIA Hydrophilic Ointment 1 applic 05/23/21 12:34 Lip Therapy Vaseline TP Q2HR PRN Dry Lips Fentanyl Citrate 2,000 mcg in 100 mls @ 8.528 mls/hr 05/23/21 13:00 05/30/21 07:23 Fentanyl Drip Premix IV 2 mcg/kg/hr TITR ROSEMARIE 17.055 mls/hr Administration Protocol 1 MCG/KG/HR NORepinephrine/NS 8 MG-250 ML 8 mg in 250 mls @ 3.75 mls/hr 05/24/21 20:00 05/25/21 15:20 Norepinephrine/Ns 8 Mg-250 Ml (Double Conc) IV 0 mcg/min TITRATE ROSEMARIE 0 mls/hr Titration Protocol 2 MCG/MIN Propofol 1,000 mg in 100 mls @ 5.117 mls/hr 05/25/21 19:00 05/30/21 00:10 Diprivan 10 Mg/Ml IV 15 mcg/kg/min TITR ROSEMARIE 15.35 mls/hr Titration Protocol 5 MCG/KG/MIN Multi-Ingred Cream/Lotion/Oil/Oint 1 applic 05/23/21 12:34 Mineral Oil/Petrolatum, White Ophth Oint 3.5 Gm OU Q4HR PRN Dry Eye(s) Ondansetron HCl 4 mg 05/23/21 20:42 Ondansetron 4 Mg/2 Ml Inj IV Q8H PRN Nausea And Vomiting Senna/Docusate Sodium 1 tab 05/23/21 22:00 05/30/21 09:33 Sennosides/Docusate Sodium 8.6/50 Mg Tab FEEDTUBE 1 tab BID ROSEMARIE Administration Sildenafil Citrate 20 mg 05/28/21 20:00 05/30/21 09:33 Sildenafil 20 Mg Tab PO 20 mg TID ROSEMARIE Administration Simple Syrup 15 ml 05/24/21 10:14 Simple Syrup 15 Ml FEEDTUBE PRN PRN Hypoglycemia Simple Syrup 30 ml 05/24/21 10:14 Simple Syrup 15 Ml FEEDTUBE PRN PRN Hypoglycemia Sodium Bicarbonate 325 mg 05/24/21 10:14 Sodium Bicarbonate 325 Mg Tab FEEDTUBE PRN PRN For Clogged Feeding Tube Sodium Chloride 10 ml 05/23/21 22:00 05/30/21 09:35 Sodium Chloride 0.9% 10 Ml Flush Syringe IV 10 ml BID ROSEMARIE Administration Sodium Chloride 10 ml 05/23/21 20:42 Sodium Chloride 0.9% 10 Ml Flush Syringe IV PRN PRN LINE FLUSH
--- NOTE | 2021-05-30 10:26 | Progress Note ---
Assessment and Plan 1. Chronic hypoxemic hypercapnic respiratory failure 2. Chronic cor pulmonale 3. Right heart failure 4. Severe morbid obesity 5. History of COVID-19 infection Plan. Currently cardiac tinoco stable will monitor input and output closely. Supportive cardiac management Subjective Date of service: 05/30/21 Principal diagnosis: Acute hypoxemic and hypercapnic resp failure; PUI COVID-19; Pneumonia; FERMIN Interval history: No change in clincal status Objective Vital Signs Temp Pulse Pulse Resp Resp BP Pulse Ox 05/30/21 08:10 105 H 103/55 96 05/30/21 08:08 133 H 36 H 05/30/21 07:39 99.5 F 05/30/21 07:30 101 H 25 H 100/55 96 05/30/21 07:15 107 H 25 H 91/50 96 05/30/21 07:00 98 H 25 H 91/50 96 05/30/21 06:45 103 H 25 H 112/64 96 05/30/21 06:30 99 H 25 H 83/41 96 05/30/21 06:15 112 H 25 H 98/52 94 05/30/21 06:00 102 H 24 89/46 96 05/30/21 05:45 101 H 25 H 89/45 96 05/30/21 05:30 115 H 25 H 106/50 96 05/30/21 05:15 106 H 25 H 98/47 96 05/30/21 05:00 110 H 25 H 92/35 95 05/30/21 04:45 111 H 25 H 125/77 96 05/30/21 04:41 114 H 130/82 96 05/30/21 04:30 106 H 25 H 110/67 96 05/30/21 04:15 119 H 25 H 130/82 95 05/30/21 04:00 111 H 25 H 130/82 97 05/30/21 03:45 102 H 25 H 120/73 97 05/30/21 03:36 99.5 F 05/30/21 03:30 110 H 25 H 125/80 96 05/30/21 03:15 129 H 20 133/84 93 05/30/21 03:00 109 H 25 H 132/78 96 05/30/21 02:45 104 H 25 H 127/77 97 05/30/21 02:30 92 H 25 H 110/62 97 05/30/21 02:15 93 H 25 H 107/62 96 05/30/21 02:00 87 25 H 101/57 95 05/30/21 01:45 91 H 25 H 105/60 97 05/30/21 01:30 97 H 25 H 104/63 95 05/30/21 01:15 97 H 25 H 106/63 95 05/30/21 01:00 98 H 25 H 100/58 95 05/30/21 00:45 102 H 25 H 104/59 96 05/30/21 00:30 110 H 25 H 107/59 95 05/30/21 00:15 111 H 25 H 108/60 95 05/30/21 00:00 119 H 25 H 116/70 96 05/29/21 23:56 98.8 F 05/29/21 23:45 127 H 25 H 118/73 95 05/29/21 23:30 109 H 25 H 102/61 97 05/29/21 23:24 123 H 124/73 96 05/29/21 23:15 121 H 25 H 124/73 96 05/29/21 23:01 139 H 25 H 148/100 93 05/29/21 22:45 94 H 25 H 101/57 95 05/29/21 22:30 93 H 25 H 101/57 95 05/29/21 22:15 98 H 25 H 108/61 97 05/29/21 22:00 98 H 25 H 105/62 96 05/29/21 21:45 96 H 25 H 107/62 97 05/29/21 21:30 98 H 25 H 101/58 95 05/29/21 21:15 104 H 25 H 107/62 96 05/29/21 21:01 109 H 25 H 121/71 95 05/29/21 21:00 111 H 25 H 121/71 95 05/29/21 20:45 109 H 25 H 114/70 97 05/29/21 20:30 106 H 25 H 107/69 97 05/29/21 20:15 107 H 25 H 113/68 96 05/29/21 20:00 113 H 25 H 112/69 92 05/29/21 19:48 98.4 F 05/29/21 19:45 111 H 25 H 116/71 96 05/29/21 19:30 111 H 27 H 107/68 98 05/29/21 19:17 113 H 25 H 05/29/21 19:15 117 H 25 H 105/71 97 05/29/21 19:00 114 H 25 H 115/66 98 05/29/21 18:45 127 H 22 105/58 97 05/29/21 18:30 114 H 25 H 104/62 99 05/29/21 18:15 110 H 25 H 106/64 99 05/29/21 18:00 116 H 25 H 101/61 100 05/29/21 17:45 147 H 15 117/73 97 05/29/21 17:30 115 H 25 H 117/73 93 05/29/21 17:15 102 H 25 H 105/57 94 05/29/21 17:00 108 H 25 H 100/64 93 05/29/21 16:45 108 H 25 H 109/69 94 05/29/21 16:30 109 H 25 H 104/61 93 05/29/21 16:15 120 H 25 H 111/71 94 05/29/21 16:00 97.6 F 108 H 25 H 95/62 92 05/29/21 15:45 103 H 25 H 97/57 95 05/29/21 15:43 99 H 105/64 96 05/29/21 15:41 100 H 25 H 05/29/21 15:30 108 H 25 H 105/64 95 05/29/21 15:15 113 H 25 H 102/63 95 05/29/21 15:00 112 H 25 H 111/68 96 05/29/21 14:45 113 H 25 H 100/59 94 05/29/21 14:30 117 H 19 102/72 94 05/29/21 14:15 22 104/64 96 05/29/21 14:00 127 H 26 H 121/72 95 05/29/21 13:45 111 H 33 H 117/74 96 05/29/21 13:30 94 H 14 115/66 94 05/29/21 13:15 79 12 98/54 94 05/29/21 13:00 80 18 93/51 94 05/29/21 12:45 80 23 96/54 94 05/29/21 12:30 84 23 101/58 94 05/29/21 12:27 83 98/52 93 05/29/21 12:15 77 17 98/52 93 05/29/21 12:00 97.5 F L 77 17 95/53 93 05/29/21 11:45 77 13 91/50 92 05/29/21 11:30 78 14 97/50 93 05/29/21 11:15 79 16 96/50 93 05/29/21 11:00 82 15 91/47 92 05/29/21 10:45 85 14 93/51 93 05/29/21 10:30 87 19 90/51 94 - Physical Examination General: No Apparent Distress, Other (On mechanical ventilator) HEENT: Positive: Normocephaly Neck: Positive: neck supple Cardiac: Positive: Regular Rate Lungs: Positive: clear to auscultation, No Wheeze, Rales, Rhonchi Neuro: Positive: Other (sedated intubated) Abdomen: Positive: Soft Skin: Positive: Clear Extremities: Present: +1 Edema - Labs and Meds Coagulation 05/29/21 Range/Units 13:40 PT 15.3 H (12.2-14.9) Sec. INR 1.09 (0.87-1.13) APTT 25.7 (24.2-36.6) Sec. Lipids 05/30/21 Range/Units 07:47 Triglycerides 94 (2-149) mg/dL CBC 05/29/21 05/30/21 Range/Units 13:40 04:42 WBC 7.3 8.6 (4.5-11.0) K/mm3 RBC 3.92 3.87 (3.65-5.03) M/mm3 Hgb 12.0 11.7 L (11.8-15.2) gm/dl Hct 36.4 36.7 (35.5-45.6) % Plt Count 103 L 106 L (140-440) K/mm3 Comprehensive Metabolic Panel 05/29/21 05/30/21 05/30/21 Range/Units 13:40 04:42 07:47 Sodium 135 L 140 (137-145) mmol/L Potassium 4.3 4.6 (3.6-5.0) mmol/L Chloride 100.8 105.0 (98-107) mmol/L Carbon Dioxide 23 24 (22-30) mmol/L BUN 63 H 63 H (9-20) mg/dL Creatinine 1.7 H 1.6 H 1.6 H (0.8-1.3) mg/dL Glucose 95 98 (75-100) mg/dL Calcium 8.2 L 8.5 (8.4-10.2) mg/dL - Imaging and Cardiology EKG: report reviewed (Sinus tachycardia no acute ST-T wave changes) - Allied health notes Allied health notes reviewed: nursing
--- NOTE | 2021-05-30 14:32 | Progress Note ---
Assessment and Plan Acute possibly on chronic hypoxemic and hypercapnic respiratory failure Pneumonia, community-acquired Acute toxic metabolic encephalopathy Person under investigation for COVID-19 Morbid obesity Obstructive sleep apnea History of hypertension Acute kidney injury Hyperkalemia Elevated serum transaminases Possible shock liver Hyperammonemia Non-ST elevation myocardial infarction - dill replaced with good diuresis - reduced FiO2 to 60% - keep peep at 14 cm H2O overnight - continue care as below otherwise; - continue home Eliquis dosing - continue Revatio re: pulm HTN - prn vasopressors for target MAP > 65 mmHg - nephrology input appreciated (azotemia improving) - continue Daily SAT and SBT assessment as tolerated - continue to wean supplemental oxygen for target O2 sat's > 90% acutely - VAP bundle addressed - continue lung protective strategies - continue bronchodilators with pulmonary hygiene per RT - wean per pulmonary driven protocols otherwise - avoid nephrotoxins, renally dose all medications - continue accuchecks with glycemic control per SSI (While critically ill target blood glucose of 140-180 mg/dL; avoid hypoglycemia) - sedation prn for target RASS 0 to -1 - continue to avoid benzodiazepine's, reduce the possibility of delirium - AB's per ID rec's - prn analgesia per CPOT score - Maintenance of sleep-wake cycle, avoid delirium - continue enteral nutritional support at goal rate as tolerated - G.I. & VTE prophylaxis - PT/OT/ROM exercises - continue mobility protocols for pressure ulcer prophylaxis - Monitor hemodynamics closely - continue other care per attending / other consultants - discharge planning ongoing concurrently COVID SPECIFIC INTERVENTIONS - COVID-19 test result pending .... Re-evaluate in am & prn CONDITION: CRITICAL PROGNOSIS: GUARDED CODE STATUS: FULL CODE The high probability of a clinically significant, sudden or life-threatening deterioration of the [respiratory, cardiovascular, renal & neurologic] system(s) required my full and direct attention, intervention and personal management. The aggregate critical care time was [32] minutes without overlap. Time includes spent on; [x] Data Review and interpretation [x] Patient assessment and monitoring of vital signs [x] Documentation [x] Medication orders and management Subjective Date of service: 05/30/21 Principal diagnosis: Acute hypoxemic and hypercapnic resp failure; PUI COVID-19; Pneumonia; FERMIN Interval history: Patient is seen today for: Acute hypoxemic and hypercapnic respiratory failure; PUI NCOVID-19; Pneumonia; CAP; FERMIN; REVA Seen and examined at bedside; 24hour events reviewed; nursing and respiratory care staff consulted; no adverse overnight events reported to me; remaions on MVS; dill switched out due to retention; no gross bleeding; no emesis or overt aspiration; slow improvement in oxygenation Objective Vital Signs - 12hr 05/30/21 05/30/21 05/30/21 02:45 03:00 03:15 Temperature Pulse Rate 104 H 109 H 129 H Pulse Rate [ Anterior Bilateral Throughout] Respiratory 25 H 25 H 20 Rate Respiratory Rate [Anterior Bilateral Throughout] Blood Pressure 127/77 132/78 133/84 O2 Sat by Pulse 97 96 93 Oximetry 05/30/21 05/30/21 05/30/21 03:30 03:36 03:45 Temperature 99.5 F Pulse Rate 110 H 102 H Pulse Rate [ Anterior Bilateral Throughout] Respiratory 25 H 25 H Rate Respiratory Rate [Anterior Bilateral Throughout] Blood Pressure 125/80 120/73 O2 Sat by Pulse 96 97 Oximetry 05/30/21 05/30/21 05/30/21 04:00 04:15 04:30 Temperature Pulse Rate 111 H 119 H 106 H Pulse Rate [ Anterior Bilateral Throughout] Respiratory 25 H 25 H 25 H Rate Respiratory Rate [Anterior Bilateral Throughout] Blood Pressure 130/82 130/82 110/67 O2 Sat by Pulse 97 95 96 Oximetry 05/30/21 05/30/21 05/30/21 04:41 04:45 05:00 Temperature Pulse Rate 114 H 111 H 110 H Pulse Rate [ Anterior Bilateral Throughout] Respiratory 25 H 25 H Rate Respiratory Rate [Anterior Bilateral Throughout] Blood Pressure 130/82 125/77 92/35 O2 Sat by Pulse 96 96 95 Oximetry 05/30/21 05/30/21 05/30/21 05:15 05:30 05:45 Temperature Pulse Rate 106 H 115 H 101 H Pulse Rate [ Anterior Bilateral Throughout] Respiratory 25 H 25 H 25 H Rate Respiratory Rate [Anterior Bilateral Throughout] Blood Pressure 98/47 106/50 89/45 O2 Sat by Pulse 96 96 96 Oximetry 05/30/21 05/30/21 05/30/21 06:00 06:15 06:30 Temperature Pulse Rate 102 H 112 H 99 H Pulse Rate [ Anterior Bilateral Throughout] Respiratory 24 25 H 25 H Rate Respiratory Rate [Anterior Bilateral Throughout] Blood Pressure 89/46 98/52 83/41 O2 Sat by Pulse 96 94 96 Oximetry 05/30/21 05/30/21 05/30/21 06:45 07:00 07:15 Temperature Pulse Rate 103 H 98 H 107 H Pulse Rate [ Anterior Bilateral Throughout] Respiratory 25 H 25 H 25 H Rate Respiratory Rate [Anterior Bilateral Throughout] Blood Pressure 112/64 91/50 91/50 O2 Sat by Pulse 96 96 96 Oximetry 05/30/21 05/30/21 05/30/21 07:30 07:39 07:45 Temperature 99.5 F Pulse Rate 101 H 109 H Pulse Rate [ Anterior Bilateral Throughout] Respiratory 25 H 25 H Rate Respiratory Rate [Anterior Bilateral Throughout] Blood Pressure 100/55 100/55 O2 Sat by Pulse 96 97 Oximetry 05/30/21 05/30/21 05/30/21 08:00 08:08 08:10 Temperature Pulse Rate 107 H 105 H Pulse Rate [ 133 H Anterior Bilateral Throughout] Respiratory 25 H Rate Respiratory 36 H Rate [Anterior Bilateral Throughout] Blood Pressure 103/55 103/55 O2 Sat by Pulse 96 96 Oximetry 05/30/21 05/30/21 05/30/21 08:15 08:30 08:45 Temperature Pulse Rate 106 H 112 H 124 H Pulse Rate [ Anterior Bilateral Throughout] Respiratory 25 H 25 H 25 H Rate Respiratory Rate [Anterior Bilateral Throughout] Blood Pressure 103/55 98/59 98/59 O2 Sat by Pulse 97 97 96 Oximetry 05/30/21 05/30/21 05/30/21 09:00 09:15 09:30 Temperature Pulse Rate 107 H 137 H 145 H Pulse Rate [ Anterior Bilateral Throughout] Respiratory 25 H 25 H 22 Rate Respiratory Rate [Anterior Bilateral Throughout] Blood Pressure 90/51 90/51 119/73 O2 Sat by Pulse 95 96 95 Oximetry 05/30/21 05/30/21 05/30/21 09:45 10:00 10:15 Temperature Pulse Rate 142 H 147 H 126 H Pulse Rate [ Anterior Bilateral Throughout] Respiratory 25 H 25 H 25 H Rate Respiratory Rate [Anterior Bilateral Throughout] Blood Pressure 119/73 116/80 116/80 O2 Sat by Pulse 93 93 92 Oximetry 05/30/21 05/30/21 05/30/21 10:30 10:45 11:00 Temperature Pulse Rate 143 H 124 H 134 H Pulse Rate [ Anterior Bilateral Throughout] Respiratory 25 H 25 H 25 H Rate Respiratory Rate [Anterior Bilateral Throughout] Blood Pressure 124/71 124/71 106/58 O2 Sat by Pulse 91 92 93 Oximetry 05/30/21 05/30/21 05/30/21 11:15 11:30 11:45 Temperature Pulse Rate 129 H 115 H Pulse Rate [ Anterior Bilateral Throughout] Respiratory 26 H 14 Rate Respiratory Rate [Anterior Bilateral Throughout] Blood Pressure 106/58 120/70 120/70 O2 Sat by Pulse 93 94 Oximetry 05/30/21 05/30/21 05/30/21 12:00 12:16 12:19 Temperature 99.6 F Pulse Rate 108 H 108 H 105 H Pulse Rate [ Anterior Bilateral Throughout] Respiratory 25 H 18 Rate Respiratory Rate [Anterior Bilateral Throughout] Blood Pressure 120/70 104/57 104/57 O2 Sat by Pulse 96 93 94 Oximetry 05/30/21 05/30/21 05/30/21 12:30 12:46 13:00 Temperature Pulse Rate 112 H 101 H 99 H Pulse Rate [ Anterior Bilateral Throughout] Respiratory 23 25 H 25 H Rate Respiratory Rate [Anterior Bilateral Throughout] Blood Pressure 110/70 110/70 119/66 O2 Sat by Pulse 94 94 93 Oximetry 05/30/21 05/30/21 05/30/21 13:16 13:30 13:46 Temperature Pulse Rate 90 93 H 88 Pulse Rate [ Anterior Bilateral Throughout] Respiratory 15 16 23 Rate Respiratory Rate [Anterior Bilateral Throughout] Blood Pressure 119/66 109/62 109/62 O2 Sat by Pulse 94 94 94 Oximetry 05/30/21 05/30/21 05/30/21 14:00 14:16 14:20 Temperature Pulse Rate 87 90 Pulse Rate [ 88 Anterior Bilateral Throughout] Respiratory 25 H 25 H Rate Respiratory 25 H Rate [Anterior Bilateral Throughout] Blood Pressure 103/57 103/57 O2 Sat by Pulse 96 96 Oximetry Constitutional: no acute distress, other (middle aged morbidly obese male with mildly increased respiratory effort at rest on MVS) Eyes: non-icteric ENT: oropharynx moist, other (ETT 24 cm FRANCIS) Neck: supple, no lymphadenopathy, no JVD Effort: mildly labored Ascultation: Bilateral: diminished breath sounds, rhonchi Percussion: Bilateral: not dull Cardiovascular: regular rate and rhythm Gastrointestinal: normoactive bowel sounds, soft, non-tender, non-distended Integumentary: rash (stasis dermatitis) Extremities: no cyanosis, pulses normal, no ischemia or petechiae, edema (trace) Neurologic: non-focal exam (grossly), pupils equal and round, unable to assess, other (sedated) Psychiatric: other (unable to assess re: AMS) CBC and BMP: 05/30/21 04:42 05/30/21 07:47 ABG, PT/INR, D-dimer: ABG ABG pH 7.323 pH Units (7.350-7.450) L 05/30/21 09:22 POC ABG pCO2 40.1 mmHg (32.0-48.0) 05/26/21 21:00 ABG pCO2 48.1 mm Hg 05/30/21 09:22 POC ABG pO2 56.7 mmHg (83-108) L 05/26/21 21:00 ABG pO2 107.0 mm Hg (80.0-90.0) H 05/30/21 09:22 POC ABG HCO3 23.8 05/26/21 21:00 ABG O2 Saturation 97.6 % (95.0-99.0) 05/30/21 09:22 PT/INR, D-dimer PT 15.3 Sec. (12.2-14.9) H 05/29/21 13:40 INR 1.09 (0.87-1.13) 05/29/21 13:40 D-Dimer 4444.85 ng/mlDDU (0-234) H 05/23/21 15:09 Abnormal lab findings: Abnormal Labs 05/23/21 05/23/21 05/23/21 15:00 15:09 15:09 WBC Hgb MCV 95 H MCHC 30 L RDW 20.1 H Plt Count Lymph % (Auto) 5.9 L Lymph # (Auto) 0.6 L Seg Neutrophils % 87.5 H Seg Neuts % (Manual) Lymphocytes % (Manual) Seg Neutrophils # 8.2 H Seg Neutrophils # Man Lymphocytes # (Manual) PT 18.1 H INR 1.36 H APTT 23.1 L D-Dimer ABG pH 7.215 L POC ABG pCO2 POC ABG pO2 ABG pO2 ABG HCO3 28.4 H ABG O2 Saturation ABG Base Excess ABG Hemoglobin 13.5 L ABG Oxyhemoglobin ABG Potassium ABG Glucose Oxyhemoglobin 92.6 L Sodium Potassium Carbon Dioxide BUN Creatinine Glucose POC Glucose Calcium Magnesium AST ALT Ammonia Total Creatine Kinase Troponin T C-Reactive Protein NT-Pro-B Natriuret Pep Albumin HDL Cholesterol Arterial Blood Glucose Urine WBC (Auto) Urine Creatinine Salicylates Acetaminophen 05/23/21 05/23/21 05/23/21 15:09 15:09 15:09 WBC Hgb MCV MCHC RDW Plt Count Lymph % (Auto) Lymph # (Auto) Seg Neutrophils % Seg Neuts % (Manual) Lymphocytes % (Manual) Seg Neutrophils # Seg Neutrophils # Man Lymphocytes # (Manual) PT INR APTT D-Dimer ABG pH POC ABG pCO2 POC ABG pO2 ABG pO2 ABG HCO3 ABG O2 Saturation ABG Base Excess ABG Hemoglobin ABG Oxyhemoglobin ABG Potassium ABG Glucose Oxyhemoglobin Sodium Potassium 5.2 H Carbon Dioxide BUN 40 H Creatinine 3.2 H Glucose 133 H POC Glucose Calcium Magnesium AST 1094 H ALT 1089 H Ammonia 75.0 H Total Creatine Kinase Troponin T 0.038 H C-Reactive Protein NT-Pro-B Natriuret Pep Albumin 3.0 L HDL Cholesterol 29 L Arterial Blood Glucose Urine WBC (Auto) Urine Creatinine Salicylates < 0.3 L Acetaminophen 05/23/21 05/23/21 05/23/21 15:09 15:09 15:09 WBC Hgb MCV MCHC RDW Plt Count Lymph % (Auto) Lymph # (Auto) Seg Neutrophils % Seg Neuts % (Manual) Lymphocytes % (Manual) Seg Neutrophils # Seg Neutrophils # Man Lymphocytes # (Manual) PT INR APTT D-Dimer 4444.85 H ABG pH POC ABG pCO2 POC ABG pO2 ABG pO2 ABG HCO3 ABG O2 Saturation ABG Base Excess ABG Hemoglobin ABG Oxyhemoglobin ABG Potassium ABG Glucose Oxyhemoglobin Sodium Potassium Carbon Dioxide BUN Creatinine Glucose POC Glucose Calcium Magnesium AST ALT Ammonia Total Creatine Kinase 48 L Troponin T C-Reactive Protein NT-Pro-B Natriuret Pep 18845 H Albumin HDL Cholesterol Arterial Blood Glucose Urine WBC (Auto) Urine Creatinine Salicylates Acetaminophen 5.0 L 05/23/21 05/23/21 05/23/21 19:10 20:48 Unknown WBC Hgb MCV MCHC RDW Plt Count Lymph % (Auto) Lymph # (Auto) Seg Neutrophils % Seg Neuts % (Manual) Lymphocytes % (Manual) Seg Neutrophils # Seg Neutrophils # Man Lymphocytes # (Manual) PT INR APTT D-Dimer ABG pH 7.332 L POC ABG pCO2 POC ABG pO2 ABG pO2 74.0 L ABG HCO3 ABG O2 Saturation 94.4 L ABG Base Excess ABG Hemoglobin 12.5 L ABG Oxyhemoglobin ABG Potassium ABG Glucose Oxyhemoglobin 92.3 L Sodium Potassium Carbon Dioxide BUN Creatinine Glucose POC Glucose Calcium Magnesium AST ALT Ammonia Total Creatine Kinase Troponin T C-Reactive Protein 10.00 H NT-Pro-B Natriuret Pep Albumin HDL Cholesterol Arterial Blood Glucose Urine WBC (Auto) 34.0 H Urine Creatinine Salicylates Acetaminophen 05/24/21 05/24/21 05/24/21 04:55 04:55 09:15 WBC Hgb MCV 95 H MCHC 31 L RDW 19.4 H Plt Count Lymph % (Auto) Lymph # (Auto) Seg Neutrophils % Seg Neuts % (Manual) 97.0 H Lymphocytes % (Manual) 3.0 L Seg Neutrophils # Seg Neutrophils # Man 8.4 H Lymphocytes # (Manual) 0.3 L PT INR APTT D-Dimer ABG pH POC ABG pCO2 POC ABG pO2 ABG pO2 90.6 H ABG HCO3 ABG O2 Saturation ABG Base Excess -3.7 L ABG Hemoglobin 13.5 L ABG Oxyhemoglobin ABG Potassium ABG Glucose Oxyhemoglobin Sodium Potassium 5.5 H Carbon Dioxide 20 L BUN 39 H Creatinine 2.2 H Glucose 155 H POC Glucose Calcium 8.3 L Magnesium AST 571 H ALT 951 H Ammonia Total Creatine Kinase Troponin T C-Reactive Protein NT-Pro-B Natriuret Pep Albumin 3.2 L HDL Cholesterol Arterial Blood Glucose Urine WBC (Auto) Urine Creatinine Salicylates Acetaminophen 05/25/21 05/25/21 05/25/21 04:20 14:37 14:37 WBC Hgb MCV 96 H MCHC 30 L RDW 20.7 H Plt Count Lymph % (Auto) Lymph # (Auto) Seg Neutrophils % Seg Neuts % (Manual) Lymphocytes % (Manual) Seg Neutrophils # Seg Neutrophils # Man Lymphocytes # (Manual) PT INR APTT D-Dimer ABG pH 7.222 L POC ABG pCO2 57.8 H POC ABG pO2 67.3 L ABG pO2 ABG HCO3 ABG O2 Saturation ABG Base Excess ABG Hemoglobin ABG Oxyhemoglobin 89.1 L ABG Potassium 5.1 H ABG Glucose 182 H Oxyhemoglobin Sodium Potassium 5.3 H Carbon Dioxide BUN 47 H Creatinine 2.0 H Glucose 154 H POC Glucose Calcium Magnesium AST 93 H ALT 590 H Ammonia Total Creatine Kinase Troponin T C-Reactive Protein NT-Pro-B Natriuret Pep Albumin 3.6 L HDL Cholesterol Arterial Blood Glucose 182 H Urine WBC (Auto) Urine Creatinine Salicylates Acetaminophen 05/25/21 05/25/21 05/26/21 21:50 23:30 05:31 WBC Hgb MCV MCHC RDW Plt Count Lymph % (Auto) Lymph # (Auto) Seg Neutrophils % Seg Neuts % (Manual) Lymphocytes % (Manual) Seg Neutrophils # Seg Neutrophils # Man Lymphocytes # (Manual) PT INR APTT D-Dimer ABG pH 7.328 L POC ABG pCO2 POC ABG pO2 ABG pO2 63.3 L ABG HCO3 ABG O2 Saturation 92.1 L ABG Base Excess -2.4 L ABG Hemoglobin 11.3 L ABG Oxyhemoglobin ABG Potassium ABG Glucose Oxyhemoglobin 90.3 L Sodium Potassium Carbon Dioxide BUN Creatinine Glucose POC Glucose 131 H 123 H Calcium Magnesium AST ALT Ammonia Total Creatine Kinase Troponin T C-Reactive Protein NT-Pro-B Natriuret Pep Albumin HDL Cholesterol Arterial Blood Glucose Urine WBC (Auto) Urine Creatinine Salicylates Acetaminophen 05/26/21 05/26/21 05/26/21 09:02 10:57 17:30 WBC Hgb MCV MCHC RDW Plt Count Lymph % (Auto) Lymph # (Auto) Seg Neutrophils % Seg Neuts % (Manual) Lymphocytes % (Manual) Seg Neutrophils # Seg Neutrophils # Man Lymphocytes # (Manual) PT INR APTT D-Dimer ABG pH 7.346 L POC ABG pCO2 POC ABG pO2 ABG pO2 60.5 L ABG HCO3 ABG O2 Saturation 90.7 L ABG Base Excess ABG Hemoglobin 13.1 L ABG Oxyhemoglobin ABG Potassium ABG Glucose Oxyhemoglobin 88.9 L Sodium Potassium Carbon Dioxide BUN Creatinine Glucose POC Glucose 127 H 141 H Calcium Magnesium AST ALT Ammonia Total Creatine Kinase Troponin T C-Reactive Protein NT-Pro-B Natriuret Pep Albumin HDL Cholesterol Arterial Blood Glucose Urine WBC (Auto) Urine Creatinine Salicylates Acetaminophen 05/26/21 05/26/21 05/26/21 21:00 Unknown Unknown WBC 4.2 L Hgb 11.7 L MCV MCHC 31 L RDW 20.3 H Plt Count 132 L Lymph % (Auto) Lymph # (Auto) Seg Neutrophils % Seg Neuts % (Manual) Lymphocytes % (Manual) Seg Neutrophils # Seg Neutrophils # Man Lymphocytes # (Manual) PT INR APTT D-Dimer ABG pH POC ABG pCO2 POC ABG pO2 56.7 L ABG pO2 ABG HCO3 ABG O2 Saturation ABG Base Excess ABG Hemoglobin ABG Oxyhemoglobin 88.8 L ABG Potassium 4.7 H ABG Glucose 152 H Oxyhemoglobin Sodium Potassium 5.2 H Carbon Dioxide BUN 47 H Creatinine 2.0 H Glucose 136 H POC Glucose Calcium Magnesium AST 64 H ALT 448 H Ammonia Total Creatine Kinase Troponin T C-Reactive Protein NT-Pro-B Natriuret Pep Albumin 3.4 L HDL Cholesterol Arterial Blood Glucose 152 H Urine WBC (Auto) Urine Creatinine Salicylates Acetaminophen 05/26/21 05/27/21 05/27/21 Unknown 08:00 08:00 WBC 4.2 L Hgb MCV MCHC RDW 21.2 H Plt Count 126 L Lymph % (Auto) Lymph # (Auto) Seg Neutrophils % Seg Neuts % (Manual) Lymphocytes % (Manual) Seg Neutrophils # Seg Neutrophils # Man Lymphocytes # (Manual) PT INR APTT D-Dimer ABG pH POC ABG pCO2 POC ABG pO2 ABG pO2 ABG HCO3 ABG O2 Saturation ABG Base Excess ABG Hemoglobin ABG Oxyhemoglobin ABG Potassium ABG Glucose Oxyhemoglobin Sodium Potassium Carbon Dioxide BUN 52 H Creatinine 1.8 H Glucose 171 H POC Glucose Calcium 8.3 L Magnesium AST ALT Ammonia Total Creatine Kinase Troponin T C-Reactive Protein NT-Pro-B Natriuret Pep Albumin HDL Cholesterol Arterial Blood Glucose Urine WBC (Auto) Urine Creatinine 128.6 H Salicylates Acetaminophen 05/27/21 05/27/21 05/27/21 10:15 11:48 17:13 WBC Hgb MCV MCHC RDW Plt Count Lymph % (Auto) Lymph # (Auto) Seg Neutrophils % Seg Neuts % (Manual) Lymphocytes % (Manual) Seg Neutrophils # Seg Neutrophils # Man Lymphocytes # (Manual) PT INR APTT D-Dimer ABG pH 7.300 L POC ABG pCO2 POC ABG pO2 ABG pO2 42.1 L ABG HCO3 ABG O2 Saturation 72.8 L ABG Base Excess ABG Hemoglobin 12.7 L ABG Oxyhemoglobin ABG Potassium ABG Glucose Oxyhemoglobin 71.4 L Sodium Potassium Carbon Dioxide BUN Creatinine Glucose POC Glucose 139 H 145 H Calcium Magnesium AST ALT Ammonia Total Creatine Kinase Troponin T C-Reactive Protein NT-Pro-B Natriuret Pep Albumin HDL Cholesterol Arterial Blood Glucose Urine WBC (Auto) Urine Creatinine Salicylates Acetaminophen 05/28/21 05/28/21 05/28/21 05:30 11:37 13:32 WBC Hgb MCV MCHC RDW Plt Count Lymph % (Auto) Lymph # (Auto) Seg Neutrophils % Seg Neuts % (Manual) Lymphocytes % (Manual) Seg Neutrophils # Seg Neutrophils # Man Lymphocytes # (Manual) PT INR APTT D-Dimer ABG pH 7.339 L POC ABG pCO2 POC ABG pO2 ABG pO2 53.7 L ABG HCO3 ABG O2 Saturation 86.5 L ABG Base Excess ABG Hemoglobin 12.3 L ABG Oxyhemoglobin ABG Potassium ABG Glucose Oxyhemoglobin 84.6 L Sodium Potassium Carbon Dioxide BUN 53 H Creatinine 1.6 H Glucose 118 H POC Glucose 115 H Calcium 8.0 L Magnesium 2.40 H AST ALT Ammonia Total Creatine Kinase Troponin T C-Reactive Protein NT-Pro-B Natriuret Pep Albumin HDL Cholesterol Arterial Blood Glucose Urine WBC (Auto) Urine Creatinine Salicylates Acetaminophen 05/28/21 05/29/21 05/29/21 Unknown 09:43 13:40 WBC Hgb 11.7 L MCV MCHC 31 L RDW 21.3 H 20.9 H Plt Count 121 L 103 L Lymph % (Auto) Lymph # (Auto) Seg Neutrophils % Seg Neuts % (Manual) Lymphocytes % (Manual) Seg Neutrophils # Seg Neutrophils # Man Lymphocytes # (Manual) PT INR APTT D-Dimer ABG pH POC ABG pCO2 POC ABG pO2 ABG pO2 60.9 L ABG HCO3 ABG O2 Saturation 90.7 L ABG Base Excess ABG Hemoglobin 12.0 L ABG Oxyhemoglobin ABG Potassium ABG Glucose Oxyhemoglobin 88.9 L Sodium Potassium Carbon Dioxide BUN Creatinine Glucose POC Glucose Calcium Magnesium AST ALT Ammonia Total Creatine Kinase Troponin T C-Reactive Protein NT-Pro-B Natriuret Pep Albumin HDL Cholesterol Arterial Blood Glucose Urine WBC (Auto) Urine Creatinine Salicylates Acetaminophen 05/29/21 05/29/21 05/30/21 13:40 13:40 04:42 WBC Hgb 11.7 L MCV 95 H MCHC RDW 20.8 H Plt Count 106 L Lymph % (Auto) Lymph # (Auto) Seg Neutrophils % Seg Neuts % (Manual) Lymphocytes % (Manual) Seg Neutrophils # Seg Neutrophils # Man Lymphocytes # (Manual) PT 15.3 H INR APTT D-Dimer ABG pH POC ABG pCO2 POC ABG pO2 ABG pO2 ABG HCO3 ABG O2 Saturation ABG Base Excess ABG Hemoglobin ABG Oxyhemoglobin ABG Potassium ABG Glucose Oxyhemoglobin Sodium Potassium Carbon Dioxide BUN Creatinine 1.7 H Glucose POC Glucose Calcium Magnesium AST ALT Ammonia Total Creatine Kinase Troponin T C-Reactive Protein NT-Pro-B Natriuret Pep Albumin HDL Cholesterol Arterial Blood Glucose Urine WBC (Auto) Urine Creatinine Salicylates Acetaminophen 05/30/21 05/30/21 05/30/21 04:42 07:47 09:22 WBC Hgb MCV MCHC RDW Plt Count Lymph % (Auto) Lymph # (Auto) Seg Neutrophils % Seg Neuts % (Manual) Lymphocytes % (Manual) Seg Neutrophils # Seg Neutrophils # Man Lymphocytes # (Manual) PT INR APTT D-Dimer ABG pH 7.323 L POC ABG pCO2 POC ABG pO2 ABG pO2 107.0 H ABG HCO3 ABG O2 Saturation ABG Base Excess ABG Hemoglobin 12.4 L ABG Oxyhemoglobin ABG Potassium ABG Glucose Oxyhemoglobin Sodium 135 L Potassium Carbon Dioxide BUN 63 H 63 H Creatinine 1.6 H 1.6 H Glucose POC Glucose Calcium 8.2 L Magnesium AST ALT Ammonia Total Creatine Kinase Troponin T C-Reactive Protein NT-Pro-B Natriuret Pep Albumin HDL Cholesterol Arterial Blood Glucose Urine WBC (Auto) Urine Creatinine Salicylates Acetaminophen Chest x-ray: image reviewed (persistent infiltrates) Allied health notes reviewed: nursing
--- NOTE | 2021-05-30 14:39 | Progress Note ---
<ENOCLEFTY BecerraAntony - Last Filed: 05/30/21 14:36> Assessment and Plan Assessment and plan: This is a 41-year-old male with acute hypoxic respiratory failure, elevated D- dimer, acute kidney injury, hyperkalemia and transaminitis Neuro: Acute metabolic encephalopathy -CT head and C-spine negative for acute process -TSH WNL -Patient is sedated with propofol and fentanyl -Goal RASS 0 to -1 -Avoid delirium -Reorientation as needed -Maintain sleep-wake cycle Cardio: Hypotension, possible CHF, h/o HTN -Cardiology consulted, appreciate recommendations -S/p Levophed -echocardiogram showed mild to moderate dilated right heart chambers, LVEF 55% -Cardiology recommends conservative cardiac management -Patient currently not hypertensive -No home antihypertensive regimen found on home med list -Blood pressure monitoring per protocol -As needed hydralazine Respiratory: Acute possibly on chronic hypoxemic and hypercapnic respiratory failure, ARDS, h/o sleep apnea -CCM/pulmonary consulted, appreciate recommendations -Patient intubated on 05/23 for airway protection in the ED -Intubated with 7.50 ETT at 24 the lips -pm ABG noted -A.m. vent settings: Assist control tidal volume 450, rate 25, PEEP 14, FiO2 65% -See RT notes for titration -VAP bundle GI: Transaminitis, morbid obesity -NTR consult for tube feedings -Tube feedings Nepro at 45 mL's per hour -Free water flush 100 mL/4hr -24-hour +1527 -Presented with elevated LFTs which are now improving -Trend LFTs : Acute renal failure secondary to vasomotor nephropathy -Nephrology consulted, appreciate recommendations -Garcia catheter for strict intake and output -Avoid nephrotoxic medications -Renally dose medications -Renal calculated at 0.41% indicating prerenal -Patient admitted with volume overload (proBNP 49882) -Repeat lasix today ID: CAP, leukopenia, coag negative Staphylococcus in blood culture 07/26 -CT C-spine showed right upper lobe pneumonia -Antibiotic therapy with cefepime and azithromycin -Monitor fever and WBC curve -05/23 UC, tracheal aspirate no growth to date -05/23 blood culture with coag negative staph in 1 of 2 bottles Endo: NAD -Accu-Cheks every 6 while on tube feedings -No indication for SSI at this time -Avoid hypoglycemia -Target blood glucose while critically ill less than 180 Heme: Elevated D-dimer, h/o PE/DVT -VQ scan unable to be performed due to patient being intubated -CTA head unable to be performed due to renal function and size -restarted on home eliquis -SCDs to bilateral lower extremity while in bed -Echocardiogram shows no right heart strain -Trend CBC -Transfuse for hemoglobin less than 7 -Bilateral lower extremity Doppler ultrasound negative for DVT The high probability of a clinically significant, sudden or life threatening deterioration of the [renal/pulm] system(s) required my full and direct attention, intervention and personal management. The aggregate critical care time was [90] minutes. This time is in addition to time spent performing reported procedures but includes the following: [x] Data Review and interpretation [x] Patient assessment and monitoring of vital signs [x] Documentation [x] Medication orders and management Disposition Plan: icu Total Time Spent with Patient (Minutes): 90 History Interval history: This is a 41-year-old male who has HTN, REVA and morbid obesity who presents to the emergency department on 05/23 via EMS for severe respiratory distress. Upon EMS arrival patient was found to be altered and sedated from bed to floor and reports noncompliant with CPAP/BiPAP. Patient received bag valve mask ventilation via nasal trumpet with EMS on route. Work-up in the emergency department included a CXR which [place] [address], elevated troponin at 0.038, elevated D-dimer, acute kidney injury, hyperk alemia and transaminitis. Patient was intubated in the emergency department for for airway protection as he was reported to be obtunded and without a gag reflex. Patient did receive Narcan in the field by EMS however there was no reported affect. Hospital course to date: 05/24/2021: Patient intubated and sedated. VQ scan ordered secondary to elevated D-dimer. Cardiology consulted secondary to elevated troponin and elevated BNP. Echocardiogram ordered and pending. 05/25/2021: Patient still intubated. Responsive to commands. Hypotensive, norepinephrine increased to 15mcg. Unable to get V/Q scan due to body habitus. 05/26: Overnight patient experienced desaturation to the 80s and FiO2 was increased. This morning on ABG patient exhibited hypoxemia and FiO2 was unchanged. CCM later increased PEEP and decrease FiO2. Nephrology was consulted due to no recovery in renal function noted. Urine lites were ordered. Hyperkalemia treated medically. 05/27: Patient remains sedated on fentanyl and propofol, [facility] will taper Solu- Medrol and repeat ABG in 1899. Patient received 40 mg of Lasix x1. Slight improvement to renal function noted 05/28: [facility] has started revatio for pulmonary hypertension, we will repeat Lasix today as patient had improvement in renal function. No acute events reported overnight. 05/29: 0 ABG with improved hypoxia, good UOP noted from lasix. Repeat labs for am. no acute events reported overnight 05/30: 1 pressure is decreased we will repeat 40 mg of Lasix today. Garcia catheter replaced due to sediment. Family updated today at bedside. Hospitalist Physical - Constitutional Vitals: Temp Pulse Resp BP Pulse Ox 99.6 F 88 25 H 103/57 96 05/30/21 12:00 05/30/21 14:20 05/30/21 14:20 05/30/21 14:16 05/30/21 14:16 General appearance: Present: no acute distress, other (Intubated) HEART Score - HEART Score Troponin: Troponin T 0.038 ng/mL (0.00-0.029) H 05/23/21 15:09 Results - Labs CBC & Chem 7: 05/30/21 04:42 05/30/21 07:47 Labs: Laboratory Last Values WBC 8.6 K/mm3 (4.5-11.0) 05/30/21 04:42 RBC 3.87 M/mm3 (3.65-5.03) 05/30/21 04:42 Hgb 11.7 gm/dl (11.8-15.2) L 05/30/21 04:42 Hct 36.7 % (35.5-45.6) 05/30/21 04:42 MCV 95 fl (84-94) H 05/30/21 04:42 MCH 30 pg (28-32) 05/30/21 04:42 MCHC 32 % (32-34) 05/30/21 04:42 RDW 20.8 % (13.2-15.2) H 05/30/21 04:42 Plt Count 106 K/mm3 (140-440) L 05/30/21 04:42 Lymph % (Auto) 5.9 % (13.4-35.0) L 05/23/21 15:09 [place] % (Auto) 6.1 % (0.0-7.3) 05/23/21 15:09 Eos % (Auto) 0.2 % (0.0-4.3) 05/23/21 15:09 Baso % (Auto) 0.3 % (0.0-1.8) 05/23/21 15:09 Lymph # (Auto) 0.6 K/mm3 (1.2-5.4) L 05/23/21 15:09 [place] # (Auto) 0.6 K/mm3 (0.0-0.8) 05/23/21 15:09 Eos # (Auto) 0.0 K/mm3 (0.0-0.4) 05/23/21 15:09 Baso # (Auto) 0.0 K/mm3 (0.0-0.1) 05/23/21 15:09 Add Manual Diff Complete 05/24/21 04:55 Total Counted 100 05/24/21 04:55 Seg Neutrophils % Belt Loop Machine Operator 05/24/21 04:55 Seg Neuts % (Manual) 97.0 % (40.0-70.0) H 05/24/21 04:55 Lymphocytes % (Manual) 3.0 % (13.4-35.0) L 05/24/21 04:55 Nucleated RBC % Not Reportable 05/24/21 04:55 Seg Neutrophils # 8.2 K/mm3 (1.8-7.7) H 05/23/21 15:09 Seg Neutrophils # Man 8.4 K/mm3 (1.8-7.7) H 05/24/21 04:55 Band Neutrophils # 0.0 K/mm3 05/24/21 04:55 Lymphocytes # (Manual) 0.3 K/mm3 (1.2-5.4) L 05/24/21 04:55 Abs React Lymphs (Man) 0.0 K/mm3 05/24/21 04:55 Monocytes # (Manual) 0.0 K/mm3 (0.0-0.8) 05/24/21 04:55 Eosinophils # (Manual) 0.0 K/mm3 (0.0-0.4) 05/24/21 04:55 Basophils # (Manual) 0.0 K/mm3 (0.0-0.1) 05/24/21 04:55 Metamyelocytes # 0.0 K/mm3 05/24/21 04:55 Myelocytes # 0.0 K/mm3 05/24/21 04:55 Promyelocytes # 0.0 K/mm3 05/24/21 04:55 Blast Cells # 0.0 K/mm3 05/24/21 04:55 WBC Morphology Not Reportable 05/24/21 04:55 Hypersegmented Neuts Not Reportable 05/24/21 04:55 Hyposegmented Neuts Not Reportable 05/24/21 04:55 Hypogranular Neuts Not Reportable 05/24/21 04:55 Smudge Cells Not Reportable 05/24/21 04:55 Toxic Granulation Not Reportable 05/24/21 04:55 Toxic Vacuolation Not Reportable 05/24/21 04:55 Dohle Bodies Not Reportable 05/24/21 04:55 Pelger-Huet Anomaly Not Reportable 05/24/21 04:55 Cynthia Rods Not Reportable 05/24/21 04:55 Platelet Estimate Consistent w auto 05/24/21 04:55 Clumped Platelets Not Reportable 05/24/21 04:55 Plt Clumps, EDTA Not Reportable 05/24/21 04:55 Large Platelets Not Reportable 05/24/21 04:55 Giant Platelets Not Reportable 05/24/21 04:55 Platelet Satelliting Not Reportable 05/24/21 04:55 Plt Morphology Comment Not Reportable 05/24/21 04:55 RBC Morphology Not Reportable 05/24/21 04:55 Dimorphic RBCs Not Reportable 05/24/21 04:55 Polychromasia Not Reportable 05/24/21 04:55 Hypochromasia Not Reportable 05/24/21 04:55 Poikilocytosis Not Reportable 05/24/21 04:55 Anisocytosis 1+ 05/24/21 04:55 Microcytosis Not Reportable 05/24/21 04:55 Macrocytosis Not Reportable 05/24/21 04:55 Spherocytes Not Reportable 05/24/21 04:55 Pappenheimer Bodies Not Reportable 05/24/21 04:55 Sickle Cells Not Reportable 05/24/21 04:55 Target Cells Not Reportable 05/24/21 04:55 Tear Drop Cells Not Reportable 05/24/21 04:55 Ovalocytes Not Reportable 05/24/21 04:55 Helmet Cells Not Reportable 05/24/21 04:55 [place] Bodies Not Reportable 05/24/21 04:55 [place] Rings Not Reportable 05/24/21 04:55 Candia Cells Not Reportable 05/24/21 04:55 Bite Cells Not Reportable 05/24/21 04:55 Crenated Cell Not Reportable 05/24/21 04:55 Elliptocytes Not Reportable 05/24/21 04:55 Acanthocytes (Spur) Not Reportable 05/24/21 04:55 Rouleaux Not Reportable 05/24/21 04:55 Hemoglobin C Crystals Not Reportable 05/24/21 04:55 Schistocytes Not Reportable 05/24/21 04:55 Malaria parasites Not Reportable 05/24/21 04:55 Uli Bodies Not Reportable 05/24/21 04:55 Hem Pathologist Commnt No 05/24/21 04:55 PT 15.3 Sec. (12.2-14.9) H 05/29/21 13:40 INR 1.09 (0.87-1.13) 05/29/21 13:40 APTT 25.7 Sec. (24.2-36.6) 05/29/21 13:40 D-Dimer 4444.85 ng/mlDDU (0-234) H 05/23/21 15:09 ABG pH 7.323 pH Units (7.350-7.450) L 05/30/21 09:22 POC ABG pCO2 40.1 mmHg (32.0-48.0) 05/26/21 21:00 ABG pCO2 48.1 mm Hg 05/30/21 09:22 POC ABG pO2 56.7 mmHg (83-108) L 05/26/21 21:00 ABG pO2 107.0 mm Hg (80.0-90.0) H 05/30/21 09:22 POC ABG HCO3 23.8 05/26/21 21:00 ABG HCO3 24.4 mmol/L (20.0-26.0) 05/30/21 09:22 ABG O2 Saturation 97.6 % (95.0-99.0) 05/30/21 09:22 ABG O2 Content 16.8 (0.0-44) 05/30/21 09:22 POC ABG Base Excess -1.0 05/26/21 21:00 ABG Base Excess -1.9 mmol/L (-2.0-3.0) 05/30/21 09: ABG Hemoglobin 12.4 gm/dl (14.0-18.0) L 05/30/21 09:22 ABG Oxyhemoglobin 88.8 (94-98) L 05/26/21 21:00 ABG Carboxyhemoglobin 1.7 % (0.0-5.0) 05/30/21: ABG Methemoglobin 0.5 % (0.0-1.5) 05/30/21 09: ABG Sodium 140.4 mmol/L (136.0-145.0) 05/26/21 21:00 ABG Potassium 4.7 mmol/L (3.40-4.50) H 05/26/21 21:00 ABG Chloride 107.0 mmol/L (98-107) 05/26/21 21:00 ABG Glucose 152 mg/dL (65-95) H 05/26/21 21:00 Oxyhemoglobin 95.5 % (95.0-99.0) 05/30/21: Carboxyhemoglobin 0.8 (0.5-1.5) 05/26/21 21:00 FiO2 65 % 05/30/21 09:22 FiO2 % 85.0 05/26/21 21:00 Sodium 140 mmol/L (137-145) 05/30/21 07:47 Potassium 4.6 mmol/L (3.6-5.0) 05/30/21 07:47 Chloride 105.0 mmol/L (98-107) 05/30/21 07:47 Carbon Dioxide 24 mmol/L (22-30) 05/30/21 07:47 Anion Gap 16 mmol/L 05/30/21 07:47 BUN 63 mg/dL (9-20) H 05/30/21 07:47 Creatinine 1.6 mg/dL (0.8-1.3) H 05/30/21 07:47 Estimated GFR 57 ml/min 05/30/21 07:47 BUN/Creatinine Ratio 39 % 05/30/21 07:47 Glucose 98 mg/dL (75-100) 05/30/21 07:47 POC Glucose 89 mg/dL (70-105) 05/30/21 11:52 Lactic Acid 1.50 mmol/L (0.7-2.0) 05/23/21 15:09 Calcium 8.5 mg/dL (8.4-10.2) 05/30/21 07:47 Phosphorus 2.90 mg/dL (2.5-4.5) 05/28/21 05:30 Magnesium 2.40 mg/dL (1.7-2.3) H 05/28/21 05:30 Total Bilirubin 0.60 mg/dL (0.1-1.2) 05/26/21 Unknown AST 64 units/L (5-40) H 05/26/21 Unknown ALT 448 units/L (7-56) H 05/26/21 Unknown Alkaline Phosphatase 58 units/L (35-129) 05/26/21 Unknown Ammonia 30.0 umol/L (25-60) 05/24/21 04:55 Total Creatine Kinase 48 units/L (55-170) L 05/23/21 15:09 Troponin T 0.038 ng/mL (0.00-0.029) H 05/23/21 15:09 C-Reactive Protein 10.00 mg/dL (0.00-1.30) H 05/23/21 19:10 NT-Pro-B Natriuret Pep 78260 pg/mL (0-450) H 05/23/21 15:09 Total Protein 7.0 g/dL (6.3-8.2) 05/26/21 Unknown Albumin 3.4 g/dL (3.9-5) L 05/26/21 Unknown Albumin/Globulin Ratio 0.9 % 05/26/21 Unknown Triglycerides 94 mg/dL (2-149) 05/30/21 07:47 Cholesterol 106 mg/dL (50-199) 05/23/21 15:09 LDL Cholesterol Direct 58 mg/dL (50-130) 05/23/21 15:09 HDL Cholesterol 29 mg/dL (40-59) L 05/23/21 15:09 Cholesterol/HDL Ratio 3.65 % 05/23/21 15:09 Procalcitonin 0.83 ng/mL (<0.15) 05/23/21 15:09 TSH 2.380 mlU/mL (0.270-4.200) 05/23/21 15:09 Arterial Blood Glucose 152 mg/dL (65-95) H 05/26/21 21:00 Urine Color [place] (Yellow) 05/23/21 Unknown Urine Turbidity Slightly-cloudy (Clear) 05/23/21 Unknown Urine pH 5.0 (5.0-7.0) 05/23/21 Unknown Ur Specific [place] 1.014 (1.003-1.030) 05/23/21 Unknown Urine Protein 30 mg/dl mg/dL (Negative) 05/23/21 Unknown Urine Glucose (UA) Neg mg/dL (Negative) 05/23/21 Unknown Urine Ketones Neg mg/dL (Negative) 05/23/21 Unknown Urine Blood Mod (Negative) 05/23/21 Unknown Urine Nitrite Neg (Negative) 05/23/21 Unknown Urine Bilirubin Neg (Negative) 05/23/21 Unknown Urine Urobilinogen 4.0 mg/dL (<2.0) 05/23/21 Unknown Ur Leukocyte Esterase Tr (Negative) 05/23/21 Unknown Urine WBC (Auto) 34.0 /HPF (0.0-6.0) H 05/23/21 Unknown Urine RBC (Auto) 20.0 /HPF (0.0-6.0) 05/23/21 Unknown U Epithel Cells (Auto) 2.0 /HPF (0-13.0) 05/23/21 Unknown Urine Bacteria (Auto) 1+ /HPF (Negative) 05/23/21 Unknown Urine Mucus Few /HPF 05/23/21 Unknown Urine Osmolality 612 Mosm/kg 05/26/21 Unknown Urine Creatinine 128.6 mg/dL (0.1-20.0) H 05/26/21 Unknown Urine Sodium 37 mmol/L 05/26/21 Unknown Urine Potassium 45.15 mmol/L 05/26/21 Unknown Urine Urea Nitrogen 989 05/26/21 Unknown Salicylates < 0.3 mg/dL (2.8-20.0) L 05/23/21 15:09 Urine Opiates Screen Negative 05/23/21 Unknown Urine Methadone Screen Negative 05/23/21 Unknown Acetaminophen 5.0 ug/mL (10.0-30.0) L 05/23/21 15:09 Ur Barbiturates Screen Negative 05/23/21 Unknown Ur Phencyclidine Scrn Negative 05/23/21 Unknown Ur Amphetamines Screen Negative 05/23/21 Unknown U Benzodiazepines Scrn Negative 05/23/21 Unknown Urine Cocaine Screen Negative 05/23/21 Unknown U Marijuana (THC) Screen Negative 05/23/21 Unknown Drugs of Abuse Note Disclamer 05/23/21 Unknown Plasma/Serum Alcohol < 0.01 % (0-0.07) 05/23/21 15:09 Coronavirus (PCR) Negative (Negative) 05/23/21 Unknown Blood Type O POSITIVE 05/23/21 15:01 Antibody Screen Negative 05/23/21 15:01 Garcia/IV: Voiding Method Indwelling Catheter Active Medications - Current Medications Current Medications: Generic Name Dose Route Start Last Admin Trade Name Freq PRN Reason Stop Dose Admin Acetaminophen 650 mg 05/23/21 20:42 Acetaminophen 325 Mg Tab PO Q4H PRN Pain MILD(1-3)/Fever >100.5/CASTORENA Albuterol 2.5 mg 05/23/21 21:11 Albuterol 2.5 Mg/3 Ml Nebu IH Q4HRT PRN Shortness Of Breath Albuterol/Ipratropium 1 ampul 05/29/21 08:00 05/30/21 14:19 Ipratropium/Albuterol Sulfate 3 Ml Ampul.Neb IH 1 ampul TIDRT ROSEMARIE Administration Lipase/Protease/Amylase 1 each 05/24/21 10:14 Lipase 10,500/Protease 25,000/Amylase 43,750 (Units) Dr Higgins FEEDTUBE PRN PRN For Clogged Feeding Tube Apixaban 2.5 mg 05/29/21 13:00 05/30/21 09:34 Apixaban 2.5 Mg Tab PO 2.5 mg Q12HR ROSEMARIE Administration Protocol Famotidine 20 mg 05/27/21 10:00 05/30/21 09:33 Famotidine 20 Mg Tab FEEDTUBE 20 mg BID ROSEMARIE Administration Fentanyl 50 mcg 05/23/21 12:34 05/23/21 18:50 Fentanyl 100 Mcg/2 Ml Inj IV 50 mcg Q10MIN PRN Administration ANALGESIA Hydrophilic Ointment 1 applic 05/23/21 12:34 Lip Therapy Vaseline TP Q2HR PRN Dry Lips Fentanyl Citrate 2,000 mcg in 100 mls @ 8.528 mls/hr 05/23/21 13:00 05/30/21 12:57 Fentanyl Drip Premix IV 2 mcg/kg/hr TITR ROSEMARIE 17.055 mls/hr Administration Protocol 1 MCG/KG/HR NORepinephrine/NS 8 MG-250 ML 8 mg in 250 mls @ 3.75 mls/hr 05/24/21 20:00 05/25/21 15:20 Norepinephrine/Ns 8 Mg-250 Ml (Double Conc) IV 0 mcg/min TITRATE ROSEMARIE 0 mls/hr Titration Protocol 2 MCG/MIN Propofol 1,000 mg in 100 mls @ 5.117 mls/hr 05/25/21 19:00 05/30/21 11:56 Diprivan 10 Mg/Ml IV 15 mcg/kg/min TITR ROSEMARIE 15.35 mls/hr Administration Protocol 5 MCG/KG/MIN Multi-Ingred Cream/Lotion/Oil/Oint 1 applic 05/23/21 12:34 Mineral Oil/Petrolatum, White Ophth Oint 3.5 Gm OU Q4HR PRN Dry Eye(s) Ondansetron HCl 4 mg 05/23/21 20:42 Ondansetron 4 Mg/2 Ml Inj IV Q8H PRN Nausea And Vomiting Senna/Docusate Sodium 1 tab 05/23/21 22:00 05/30/21 09:33 Sennosides/Docusate Sodium 8.6/50 Mg Tab FEEDTUBE 1 tab BID ROSEMARIE Administration Sildenafil Citrate 20 mg 05/28/21 20:00 05/30/21 09:33 Sildenafil 20 Mg Tab PO 20 mg TID ROSEMARIE Administration Simple Syrup 15 ml 05/24/21 10:14 Simple Syrup 15 Ml FEEDTUBE PRN PRN Hypoglycemia Simple Syrup 30 ml 05/24/21 10:14 Simple Syrup 15 Ml FEEDTUBE PRN PRN Hypoglycemia Sodium Bicarbonate 325 mg 05/24/21 10:14 Sodium Bicarbonate 325 Mg Tab FEEDTUBE PRN PRN For Clogged Feeding Tube Sodium Chloride 10 ml 05/23/21 22:00 05/30/21 09:35 Sodium Chloride 0.9% 10 Ml Flush Syringe IV 10 ml BID ROSEMARIE Administration Sodium Chloride 10 ml 05/23/21 20:42 Sodium Chloride 0.9% 10 Ml Flush Syringe IV PRN PRN LINE FLUSH Nutrition/Malnutrition Assess - Dietary Evaluation Nutrition/Malnutrition Findings: Nutrition Notes Start: 05/24/21 09:53 Freq: Status: Active Protocol: Document 05/28/21 14:30 GB (Rec: 05/28/21 14:44 GB [id number]) Nutrition Notes Initial or Follow up Reassessment Current Diagnosis Acute Kidney Injury, Hypertension,Respiratory Failure Other Pertinent Diagnosis SIRS, encephalopathy, pneu, transaminitis Current Diet NPO, Tube Feeding Nepro @ 45m/ hr Labs/Tests 05/28: BUN 53, Creatinine 1.6, glucose 118, Ca 8, Mg 2.4 Pertinent Medications Fentanyl Citrate, Norepenephrin/NS 8 Mg 250, Propofol 30.699 ml/hr (810kcal ) Height 5 ft 8 in Weight 170.551 kg [place] Body Weight (kg) 70.00 BMI 57.2 Weight change and time frame No new weights recorded at time of assessment Weight Status Morbidly Obese Subjective/Other Information Pt continues Intubated/sedated 05/28: Chest Xray note: tubes in satisfactory position, No significant changes 05/28: MD note unresponsive on vent BM: no record at time of assessment Percent of energy/protein needs met: TF at goal meets 75% or greater of minimal estimated energy needs Burn Absent Trauma Absent GI Symptoms Other Difficulty In Swallowing Food Allergy No Skin Integrity/Comment wound to left toe Current % PO Other Minimum of two criteria No #1 Nutrition Diagnosis Swallowing difficulty Comments: 05/25: intubation/sedation continues. TF started 05/28: intubation/sedation continues. TF Nepro @ goal 45ml/hr Etiology ARF As Evidenced by Signs and Symptoms Intubated/sedated Diagnosis Progress(for reassessment Continues documentation) Is patient on ventilator? Yes Is Patient Ambulatory and/or Out of Bed No REE-([facility]-confined to bed) 3092.088 Kcal/Kg value to use for calculation 12 Approximate Energy Requirements Using 2047 kcal/Kg Calculation Used for Recommendations Kcal/kg Additional Notes Protein: 0.6g/kg or greater @ 170kg Fluid: 1 ml/kcal or per MD Nutrition Intervention Change Diet Order: Continue NPO, Tube feeding Nutrition Support: Nepro 1.8 at 45 ml/hr Flush 175 ml q4h or per MD Total free water: TF@goal + flush = 1835ml Kcal 1,950 Protein (gm) 88 Carbohydrates (gm) 174 Fat (gm) 104 Fluid (mL) 788 Fiber (gm) 14 % RDI: 100%kcal / 86%pro Goal #1 Meet at least 75% or greater of EEN via TF 05/25: met, continues 05/28: met, continues Goal #2 TF (Nepro) at goal rate (45ml/ hr) by f/u 05/25: TF started 05/28: TF at goal. met, continues Follow-Up By: 06/02/21 Additional Comments F/u: TF tolerance, renal labs, vent status <TATO BUENO - Last Filed: 05/31/21 07:48> Assessment and Plan Assessment and plan: I saw and evaluated the patient. Discussed with the nurse practitioner and agree with their findings and plan as documented in this note. Hospitalist Physical - Constitutional Vitals: Temp Pulse Resp BP Pulse Ox 99.0 F 122 H 16 92/44 94 05/31/21 02:42 05/31/21 07:30 05/31/21 07:30 05/31/21 07:30 05/31/21 07:30 HEART Score - HEART Score Troponin: Troponin T 0.038 ng/mL (0.00-0.029) H 05/23/21 15:09 Results - Labs CBC & Chem 7: 05/31/21 05:16 05/31/21 05:16 Labs: Laboratory Last Values WBC 10.9 K/mm3 (4.5-11.0) 05/31/21 05:16 RBC 3.78 M/mm3 (3.65-5.03) 05/31/21 05:16 Hgb 11.1 gm/dl (11.8-15.2) L 05/31/21 05:16 Hct 35.6 % (35.5-45.6) 05/31/21 05:16 MCV 94 fl (84-94) 05/31/21 05:16 MCH 29 pg (28-32) 05/31/21 05:16 MCHC 31 % (32-34) L 05/31/21 05:16 RDW 20.8 % (13.2-15.2) H 05/31/21 05:16 Plt Count 116 K/mm3 (140-440) L 05/31/21 05:16 Lymph % (Auto) 5.9 % (13.4-35.0) L 05/23/21 15:09 [place] % (Auto) 6.1 % (0.0-7.3) 05/23/21 15:09 Eos % (Auto) 0.2 % (0.0-4.3) 05/23/21 15:09 Baso % (Auto) 0.3 % (0.0-1.8) 05/23/21 15:09 Lymph # (Auto) 0.6 K/mm3 (1.2-5.4) L 05/23/21 15:09 [place] # (Auto) 0.6 K/mm3 (0.0-0.8) 05/23/21 15:09 Eos # (Auto) 0.0 K/mm3 (0.0-0.4) 05/23/21 15:09 Baso # (Auto) 0.0 K/mm3 (0.0-0.1) 05/23/21 15:09 Add Manual Diff Complete 05/24/21 04:55 Total Counted 100 05/24/21 04:55 Seg Neutrophils % Belt Loop Machine Operator 05/24/21 04:55 Seg Neuts % (Manual) 97.0 % (40.0-70.0) H 05/24/21 04:55 Lymphocytes % (Manual) 3.0 % (13.4-35.0) L 05/24/21 04:55 Nucleated RBC % Not Reportable 05/24/21 04:55 Seg Neutrophils # 8.2 K/mm3 (1.8-7.7) H 05/23/21 15:09 Seg Neutrophils # Man 8.4 K/mm3 (1.8-7.7) H 05/24/21 04:55 Band Neutrophils # 0.0 K/mm3 05/24/21 04:55 Lymphocytes # (Manual) 0.3 K/mm3 (1.2-5.4) L 05/24/21 04:55 Abs React Lymphs (Man) 0.0 K/mm3 05/24/21 04:55 Monocytes # (Manual) 0.0 K/mm3 (0.0-0.8) 05/24/21 04:55 Eosinophils # (Manual) 0.0 K/mm3 (0.0-0.4) 05/24/21 04:55 Basophils # (Manual) 0.0 K/mm3 (0.0-0.1) 05/24/21 04:55 Metamyelocytes # 0.0 K/mm3 05/24/21 04:55 Myelocytes # 0.0 K/mm3 05/24/21 04:55 Promyelocytes # 0.0 K/mm3 05/24/21 04:55 Blast Cells # 0.0 K/mm3 05/24/21 04:55 WBC Morphology Not Reportable 05/24/21 04:55 Hypersegmented Neuts Not Reportable 05/24/21 04:55 Hyposegmented Neuts Not Reportable 05/24/21 04:55 Hypogranular Neuts Not Reportable 05/24/21 04:55 Smudge Cells Not Reportable 05/24/21 04:55 Toxic Granulation Not Reportable 05/24/21 04:55 Toxic Vacuolation Not Reportable 05/24/21 04:55 Dohle Bodies Not Reportable 05/24/21 04:55 Pelger-Huet Anomaly Not Reportable 05/24/21 04:55 Cynthia Rods Not Reportable 05/24/21 04:55 Platelet Estimate Consistent w auto 05/24/21 04:55 Clumped Platelets Not Reportable 05/24/21 04:55 Plt Clumps, EDTA Not Reportable 05/24/21 04:55 Large Platelets Not Reportable 05/24/21 04:55 Giant Platelets Not Reportable 05/24/21 04:55 Platelet Satelliting Not Reportable 05/24/21 04:55 Plt Morphology Comment Not Reportable 05/24/21 04:55 RBC Morphology Not Reportable 05/24/21 04:55 Dimorphic RBCs Not Reportable 05/24/21 04:55 Polychromasia Not Reportable 05/24/21 04:55 Hypochromasia Not Reportable 05/24/21 04:55 Poikilocytosis Not Reportable 05/24/21 04:55 Anisocytosis 1+ 05/24/21 04:55 Microcytosis Not Reportable 05/24/21 04:55 Macrocytosis Not Reportable 05/24/21 04:55 Spherocytes Not Reportable 05/24/21 04:55 Pappenheimer Bodies Not Reportable 05/24/21 04:55 Sickle Cells Not Reportable 05/24/21 04:55 Target Cells Not Reportable 05/24/21 04:55 Tear Drop Cells Not Reportable 05/24/21 04:55 Ovalocytes Not Reportable 05/24/21 04:55 Helmet Cells Not Reportable 05/24/21 04:55 [place] Bodies Not Reportable 05/24/21 04:55 [place] Rings Not Reportable 05/24/21 04:55 Luis Cells Not Reportable 05/24/21 04:55 Bite Cells Not Reportable 05/24/21 04:55 Crenated Cell Not Reportable 05/24/21 04:55 Elliptocytes Not Reportable 05/24/21 04:55 Acanthocytes (Spur) Not Reportable 05/24/21 04:55 Rouleaux Not Reportable 05/24/21 04:55 Hemoglobin C Crystals Not Reportable 05/24/21 04:55 Schistocytes Not Reportable 05/24/21 04:55 Malaria parasites Not Reportable 05/24/21 04:55 Uli Bodies Not Reportable 05/24/21 04:55 Hem Pathologist Commnt No 05/24/21 04:55 PT 15.3 Sec. (12.2-14.9) H 05/29/21 13:40 INR 1.09 (0.87-1.13) 05/29/21 13:40 APTT 25.7 Sec. (24.2-36.6) 05/29/21 13:40 D-Dimer 4444.85 ng/mlDDU (0-234) H 05/23/21 15:09 ABG pH 7.348 (7.320-7.450) 05/31/21 Unknown POC ABG pCO2 48.4 mmHg (32.0-48.0) H 05/31/21 Unknown ABG pCO2 48.1 mm Hg 05/30/21 09:22 POC ABG pO2 63.0 mmHg (83-108) L 05/31/21 Unknown ABG pO2 107.0 mm Hg (80.0-90.0) H 05/30/21 09:22 POC ABG HCO3 26.0 05/31/21 Unknown ABG HCO3 24.4 mmol/L (20.0-26.0) 05/30/21 09:22 ABG O2 Saturation 92.3 (0-100) 05/31/21 Unknown ABG O2 Content 16.8 (0.0-44) 05/30/21 09:22 POC ABG Base Excess -0.1 05/31/21 Unknown ABG Base Excess -1.9 mmol/L (-2.0-3.0) 05/30/21 09:22 ABG Hemoglobin 11.9 (12.0-17.5) L 05/31/21 Unknown ABG Oxyhemoglobin 91.4 (94-98) L 05/31/21 Unknown ABG Carboxyhemoglobin 1.7 % (0.0-5.0) 05/30/21 09: ABG Methemoglobin 0.2 (0.0-1.5) 05/31/21 Unknown ABG Sodium 137.6 mmol/L (136.0-145.0) 05/31/21 Unknown ABG Potassium 4.6 mmol/L (3.40-4.50) H 05/31/21 Unknown ABG Chloride 107.0 mmol/L (98-107) 05/31/21 Unknown ABG Glucose 110 mg/dL (65-95) H 05/31/21 Unknown Oxyhemoglobin 95.5 % (95.0-99.0) 05/30/21 09:22 Carboxyhemoglobin 0.7 (0.5-1.5) 05/31/21 Unknown FiO2 65 % 05/30/21 09:22 FiO2 % 60 05/31/21 Unknown Sodium 140 mmol/L (137-145) 05/31/21 05:16 Potassium 4.8 mmol/L (3.6-5.0) 05/31/21 05:16 Chloride 105.5 mmol/L (98-107) 05/31/21 05:16 Carbon Dioxide 25 mmol/L (22-30) 05/31/21 05:16 Anion Gap 14 mmol/L 05/31/21 05:16 BUN 62 mg/dL (9-20) H 05/31/21 05:16 Creatinine 1.9 mg/dL (0.8-1.3) H 05/31/21 05:16 Estimated GFR 47 ml/min 05/31/21 05:16 BUN/Creatinine Ratio 33 % 05/31/21 05:16 Glucose 103 mg/dL (75-100) H 05/31/21 05:16 POC Glucose 109 mg/dL (70-105) H 05/31/21 05:17 Lactic Acid 1.50 mmol/L (0.7-2.0) 05/23/21 15:09 Calcium 8.9 mg/dL (8.4-10.2) 05/31/21 05:16 Phosphorus 2.90 mg/dL (2.5-4.5) 05/28/21 05:30 Magnesium 2.40 mg/dL (1.7-2.3) H 05/28/21 05:30 Total Bilirubin 0.60 mg/dL (0.1-1.2) 05/26/21 Unknown AST 64 units/L (5-40) H 05/26/21 Unknown ALT 448 units/L (7-56) H 05/26/21 Unknown Alkaline Phosphatase 58 units/L (35-129) 05/26/21 Unknown Ammonia 30.0 umol/L (25-60) 05/24/21 04:55 Total Creatine Kinase 48 units/L (55-170) L 05/23/21 15:09 Troponin T 0.038 ng/mL (0.00-0.029) H 05/23/21 15:09 C-Reactive Protein 10.00 mg/dL (0.00-1.30) H 05/23/21 19:10 NT-Pro-B Natriuret Pep 01935 pg/mL (0-450) H 05/23/21 15:09 Total Protein 7.0 g/dL (6.3-8.2) 05/26/21 Unknown Albumin 3.4 g/dL (3.9-5) L 05/26/21 Unknown Albumin/Globulin Ratio 0.9 % 05/26/21 Unknown Triglycerides 94 mg/dL (2-149) 05/30/21 07:47 Cholesterol 106 mg/dL (50-199) 05/23/21 15:09 LDL Cholesterol Direct 58 mg/dL (50-130) 05/23/21 15:09 HDL Cholesterol 29 mg/dL (40-59) L 05/23/21 15:09 Cholesterol/HDL Ratio 3.65 % 05/23/21 15:09 Procalcitonin 0.83 ng/mL (<0.15) 05/23/21 15:09 TSH 2.380 mlU/mL (0.270-4.200) 05/23/21 15:09 Arterial Blood Glucose 110 mg/dL (65-95) H 05/31/21 Unknown Arterial Blood Ionized Calcium 4.9 mg/dL (4.6-5.3) 05/31/21 Unknown Urine Color [place] (Yellow) 05/23/21 Unknown Urine Turbidity Slightly-cloudy (Clear) 05/23/21 Unknown Urine pH 5.0 (5.0-7.0) 05/23/21 Unknown Ur Specific [place] 1.014 (1.003-1.030) 05/23/21 Unknown Urine Protein 30 mg/dl mg/dL (Negative) 05/23/21 Unknown Urine Glucose (UA) Neg mg/dL (Negative) 05/23/21 Unknown Urine Ketones Neg mg/dL (Negative) 05/23/21 Unknown Urine Blood Mod (Negative) 05/23/21 Unknown Urine Nitrite Neg (Negative) 05/23/21 Unknown Urine Bilirubin Neg (Negative) 05/23/21 Unknown Urine Urobilinogen 4.0 mg/dL (<2.0) 05/23/21 Unknown Ur Leukocyte Esterase Tr (Negative) 05/23/21 Unknown Urine WBC (Auto) 34.0 /HPF (0.0-6.0) H 05/23/21 Unknown Urine RBC (Auto) 20.0 /HPF (0.0-6.0) 05/23/21 Unknown U Epithel Cells (Auto) 2.0 /HPF (0-13.0) 05/23/21 Unknown Urine Bacteria (Auto) 1+ /HPF (Negative) 05/23/21 Unknown Urine Mucus Few /HPF 05/23/21 Unknown Urine Osmolality 612 Mosm/kg 05/26/21 Unknown Urine Creatinine 128.6 mg/dL (0.1-20.0) H 05/26/21 Unknown Urine Sodium 37 mmol/L 05/26/21 Unknown Urine Potassium 45.15 mmol/L 05/26/21 Unknown Urine Urea Nitrogen 989 05/26/21 Unknown Salicylates < 0.3 mg/dL (2.8-20.0) L 05/23/21 15:09 Urine Opiates Screen Negative 05/23/21 Unknown Urine Methadone Screen Negative 05/23/21 Unknown Acetaminophen 5.0 ug/mL (10.0-30.0) L 05/23/21 15:09 Ur Barbiturates Screen Negative 05/23/21 Unknown Ur Phencyclidine Scrn Negative 05/23/21 Unknown Ur Amphetamines Screen Negative 05/23/21 Unknown U Benzodiazepines Scrn Negative 05/23/21 Unknown Urine Cocaine Screen Negative 05/23/21 Unknown U Marijuana (THC) Screen Negative 05/23/21 Unknown Drugs of Abuse Note Disclamer 05/23/21 Unknown Plasma/Serum Alcohol < 0.01 % (0-0.07) 05/23/21 15:09 Coronavirus (PCR) Negative (Negative) 05/23/21 Unknown Blood Type O POSITIVE 05/23/21 15:01 Antibody Screen Negative 05/23/21 15:01 Garcia/IV: Voiding Method Indwelling Catheter Active Medications - Current Medications Current Medications: Generic Name Dose Route Start Last Admin Trade Name Freq PRN Reason Stop Dose Admin Acetaminophen 650 mg 05/23/21 20:42 Acetaminophen 325 Mg Tab PO Q4H PRN Pain MILD(1-3)/Fever >100.5/CASTORENA Albuterol 2.5 mg 05/23/21 21:11 Albuterol 2.5 Mg/3 Ml Nebu IH Q4HRT PRN Shortness Of Breath Albuterol/Ipratropium 1 ampul 05/29/21 08:00 05/30/21 19:11 Ipratropium/Albuterol Sulfate 3 Ml Ampul.Neb IH 1 ampul TIDRT ROSEMARIE Administration Lipase/Protease/Amylase 1 each 05/24/21 10:14 Lipase 10,500/Protease 25,000/Amylase 43,750 (Units) Dr Higgins FEEDTUBE PRN PRN For Clogged Feeding Tube Apixaban 2.5 mg 05/29/21 13:00 05/30/21 22:14 Apixaban 2.5 Mg Tab PO 2.5 mg Q12HR ROSEMARIE Administration Protocol Famotidine 20 mg 05/27/21 10:00 05/30/21 22:14 Famotidine 20 Mg Tab FEEDTUBE 20 mg BID ROSEMARIE Administration Fentanyl 50 mcg 05/23/21 12:34 05/23/21 18:50 Fentanyl 100 Mcg/2 Ml Inj IV 50 mcg Q10MIN PRN Administration ANALGESIA Hydrophilic Ointment 1 applic 05/23/21 12:34 Lip Therapy Vaseline TP Q2HR PRN Dry Lips Fentanyl Citrate 2,000 mcg in 100 mls @ 8.528 mls/hr 05/23/21 13:00 05/30/21 22:16 Fentanyl Drip Premix IV 2 mcg/kg/hr TITR ROSEMARIE 17.055 mls/hr Administration Protocol 1 MCG/KG/HR NORepinephrine/NS 8 MG-250 ML 8 mg in 250 mls @ 3.75 mls/hr 05/24/21 20:00 05/25/21 15:20 Norepinephrine/Ns 8 Mg-250 Ml (Double Conc) IV 0 mcg/min TITRATE ROSEMARIE 0 mls/hr Titration Protocol 2 MCG/MIN Propofol 1,000 mg in 100 mls @ 5.117 mls/hr 05/25/21 19:00 05/30/21 22:15 Diprivan 10 Mg/Ml IV 15 mcg/kg/min TITR ROSEMARIE 15.35 mls/hr Administration Protocol 5 MCG/KG/MIN Multi-Ingred Cream/Lotion/Oil/Oint 1 applic 05/23/21 12:34 05/30/21 22:14 Mineral Oil/Petrolatum, White Ophth Oint 3.5 Gm OU 1 applic Q4HR PRN Administration Dry Eye(s) Ondansetron HCl 4 mg 05/23/21 20:42 Ondansetron 4 Mg/2 Ml Inj IV Q8H PRN Nausea And Vomiting Senna/Docusate Sodium 1 tab 05/23/21 22:00 05/30/21 22:14 Sennosides/Docusate Sodium 8.6/50 Mg Tab FEEDTUBE 1 tab BID ROSEMARIE Administration Sildenafil Citrate 20 mg 05/28/21 20:00 05/30/21 22:14 Sildenafil 20 Mg Tab PO 20 mg TID ROSEMARIE Administration Simple Syrup 15 ml 05/24/21 10:14 Simple Syrup 15 Ml FEEDTUBE PRN PRN Hypoglycemia Simple Syrup 30 ml 05/24/21 10:14 Simple Syrup 15 Ml FEEDTUBE PRN PRN Hypoglycemia Sodium Bicarbonate 325 mg 05/24/21 10:14 Sodium Bicarbonate 325 Mg Tab FEEDTUBE PRN PRN For Clogged Feeding Tube Sodium Chloride 10 ml 05/23/21 22:00 05/30/21 22:14 Sodium Chloride 0.9% 10 Ml Flush Syringe IV 10 ml BID ROSEMARIE Administration Sodium Chloride 10 ml 05/23/21 20:42 Sodium Chloride 0.9% 10 Ml Flush Syringe IV PRN PRN LINE FLUSH Nutrition/Malnutrition Assess - Dietary Evaluation Nutrition/Malnutrition Findings: Nutrition Notes Start: 05/24/21 09:53 Freq: Status: Active Protocol: Document 05/28/21 14:30 GB (Rec: 05/28/21 14:44 GB [id number]) Nutrition Notes Initial or Follow up Reassessment Current Diagnosis Acute Kidney Injury, Hypertension,Respiratory Failure Other Pertinent Diagnosis SIRS, encephalopathy, pneu, transaminitis Current Diet NPO, Tube Feeding Nepro @ 45m/ hr Labs/Tests 05/28: BUN 53, Creatinine 1.6, glucose 118, Ca 8, Mg 2.4 Pertinent Medications Fentanyl Citrate, Norepenephrin/NS 8 Mg 250, Propofol 30.699 ml/hr (810kcal ) Height 5 ft 8 in Weight 170.551 kg [place] Body Weight (kg) 70.00 BMI 57.2 Weight change and time frame No new weights recorded at time of assessment Weight Status Morbidly Obese Subjective/Other Information Pt continues Intubated/sedated 05/28: Chest Xray note: tubes in satisfactory position, No significant changes 05/28: MD note unresponsive on vent BM: no record at time of assessment Percent of energy/protein needs met: TF at goal meets 75% or greater of minimal estimated energy needs Burn Absent Trauma Absent GI Symptoms Other Difficulty In Swallowing Food Allergy No Skin Integrity/Comment wound to left toe Current % PO Other Minimum of two criteria No #1 Nutrition Diagnosis Swallowing difficulty Comments: 05/25: intubation/sedation continues. TF started 05/28: intubation/sedation continues. TF Nepro @ goal 45ml/hr Etiology ARF As Evidenced by Signs and Symptoms Intubated/sedated Diagnosis Progress(for reassessment Continues documentation) Is patient on ventilator? Yes Is Patient Ambulatory and/or Out of Bed No REE-([facility]-confined to bed) 3092.088 Kcal/Kg value to use for calculation 12 Approximate Energy Requirements Using 2047 kcal/Kg Calculation Used for Recommendations Kcal/kg Additional Notes Protein: 0.6g/kg or greater @ 170kg Fluid: 1 ml/kcal or per MD Nutrition Intervention Change Diet Order: Continue NPO, Tube feeding Nutrition Support: Nepro 1.8 at 45 ml/hr Flush 175 ml q4h or per MD Total free water: TF@goal + flush = 1835ml Kcal 1,950 Protein (gm) 88 Carbohydrates (gm) 174 Fat (gm) 104 Fluid (mL) 788 Fiber (gm) 14 % RDI: 100%kcal / 86%pro Goal #1 Meet at least 75% or greater of EEN via TF 05/25: met, continues 05/28: met, continues Goal #2 TF (Nepro) at goal rate (45ml/ hr) by f/u 05/25: TF started 05/28: TF at goal. met, continues Follow-Up By: 06/02/21 Additional Comments F/u: TF tolerance, renal labs, vent status
[2021-05-31] MEDS ORDERED: METOPROLOL TARTRATE 5 MG/5 ML INJ IV ONE (00:48)
[2021-05-31 05:55] LABS: Calcium 8.9 mg/dL (8.4-10.2)
[2021-05-31 06:10] LABS: Hematocrit 35.6 % (35.5-45.6); Hemoglobin 11.1 gm/dl (11.8-15.2); Mean Corpuscular HGB Conc 31 % (32-34); Mean Corpuscular Volume 94 fl (84-94); Platelet Count 116 K/mm3 (140-440); Red Blood Count 3.78 M/mm3 (3.65-5.03)
[2021-05-31 06:41] LABS: Red Cell Distribution Width 20.8 % (13.2-15.2)
--- NOTE | 2021-05-31 08:02 | Progress Note ---
Assessment and Plan 1. Chronic hypoxemic hypercapnic respiratory failure 2. Chronic cor pulmonale 3. Right heart failure 4. Severe morbid obesity 5. History of COVID-19 infection Plan. Currently cardiac tinoco stable will monitor input and output closely. Supportive cardiac management Subjective Date of service: 05/31/21 Principal diagnosis: Acute hypoxemic and hypercapnic resp failure; PUI COVID-19; Pneumonia; FERMIN Interval history: No change in clincal status Objective Vital Signs Temp Pulse Pulse Resp Resp BP Pulse Ox 05/31/21 07:30 122 H 16 92/44 94 05/31/21 07:15 136 H 21 114/52 05/31/21 07:00 123 H 25 H 117/61 05/31/21 06:45 119 H 25 H 100/55 05/31/21 06:30 103 H 25 H 89/40 05/31/21 06:15 109 H 25 H 89/41 96 05/31/21 06:00 112 H 25 H 89/41 91 05/31/21 05:45 118 H 25 H 95/41 93 05/31/21 05:30 131 H 25 H 112/53 97 05/31/21 05:15 146 H 25 H 138/80 93 05/31/21 05:00 117 H 25 H 99/53 94 05/31/21 04:45 102 H 25 H 101/44 97 05/31/21 04:30 102 H 25 H 94/40 97 05/31/21 04:15 109 H 25 H 86/37 97 05/31/21 04:10 107 H 92/41 97 05/31/21 04:00 105 H 25 H 92/41 96 05/31/21 03:45 109 H 25 H 99/48 95 05/31/21 03:30 118 H 25 H 110/54 97 05/31/21 03:15 111 H 25 H 95/59 94 05/31/21 03:00 106 H 25 H 93/45 96 05/31/21 02:45 101 H 25 H 88/45 96 05/31/21 02:42 99.0 F 05/31/21 02:30 106 H 25 H 88/45 97 05/31/21 02:16 132 H 25 H 100/53 96 05/31/21 02:00 119 H 25 H 100/53 98 05/31/21 01:46 EST 114 H 25 H 99/57 97 05/31/21 01:30 EST 107 H 25 H 99/57 96 05/31/21 01:16 EST 106 H 24 97/53 98 05/31/21 01:00 EST 123 H 25 H 99/57 96 05/31/21 00:46 110 H 18 110/59 98 05/31/21 00:30 119 H 26 H 110/59 97 05/31/21 00:16 127 H 25 H 147/86 95 05/31/21 00:00 98.8 F 110 H 25 H 98/41 97 05/30/21 23:46 103 H 25 H 74/35 96 05/30/21 23:30 102 H 25 H 87/48 97 05/30/21 23:16 104 H 25 H 136/75 97 05/30/21 23:00 115 H 25 H 117/64 91 05/30/21 22:45 118 H 15 136/75 94 05/30/21 22:30 118 H 25 H 136/75 94 05/30/21 22:16 126 H 25 H 134/78 96 05/30/21 22:00 126 H 25 H 142/74 97 05/30/21 21:46 118 H 25 H 134/78 97 05/30/21 21:30 127 H 25 H 134/78 97 05/30/21 21:16 128 H 25 H 118/64 96 05/30/21 21:00 122 H 25 H 118/64 96 05/30/21 20:46 131 H 25 H 135/72 93 05/30/21 20:30 125 H 24 135/72 97 05/30/21 20:16 119 H 25 H 103/64 96 05/30/21 20:00 98.6 F 110 H 24 136/74 97 05/30/21 19:46 111 H 25 H 103/64 97 05/30/21 19:30 93 H 25 H 103/64 97 05/30/21 19:16 85 25 H 104/56 97 05/30/21 19:12 84 25 H 05/30/21 19:09 86 104/56 96 05/30/21 18:46 81 25 H 102/52 96 05/30/21 18:30 82 25 H 102/52 95 05/30/21 18:16 87 25 H 104/55 96 05/30/21 18:00 83 25 H 104/55 96 05/30/21 17:46 83 25 H 103/54 95 05/30/21 17:30 85 25 H 103/54 97 05/30/21 17:16 88 24 107/58 95 05/30/21 17:00 86 17 107/58 95 05/30/21 16:46 92 H 17 107/57 95 05/30/21 16:30 88 26 H 107/57 93 05/30/21 16:16 88 25 H 101/54 93 05/30/21 16:12 88 101/54 94 05/30/21 16:00 98.9 F 84 25 H 101/54 97 05/30/21 15:46 86 25 H 110/57 98 05/30/21 15:30 86 25 H 110/57 98 05/30/21 15:16 84 25 H 103/54 98 05/30/21 15:00 82 25 H 103/54 98 05/30/21 14:46 82 25 H 99/53 98 05/30/21 14:30 87 25 H 99/53 98 05/30/21 14:20 86 25 H 05/30/21 14:16 90 25 H 103/57 96 05/30/21 14:00 87 25 H 103/57 96 05/30/21 13:46 88 23 109/62 94 05/30/21 13:30 93 H 16 109/62 94 05/30/21 13:16 90 15 119/66 94 05/30/21 13:00 99 H 25 H 119/66 93 05/30/21 12:46 101 H 25 H 110/70 94 05/30/21 12:30 112 H 23 110/70 94 05/30/21 12:19 105 H 104/57 94 05/30/21 12:16 108 H 18 104/57 93 05/30/21 12:00 99.6 F 108 H 25 H 120/70 96 05/30/21 11:45 115 H 14 120/70 94 05/30/21 11:30 120/70 05/30/21 11:15 129 H 26 H 106/58 93 05/30/21 11:00 134 H 25 H 106/58 93 05/30/21 10:45 124 H 25 H 124/71 92 05/30/21 10:30 143 H 25 H 124/71 91 05/30/21 10:15 126 H 25 H 116/80 92 05/30/21 10:00 147 H 25 H 116/80 93 05/30/21 09:45 142 H 25 H 119/73 93 05/30/21 09:30 145 H 22 119/73 95 05/30/21 09:15 137 H 25 H 90/51 96 - Physical Examination General: No Apparent Distress, Other (Sedated on mechanical ventilator) HEENT: Positive: Normocephaly Neck: Positive: neck supple. Negative: JVD/HJR Cardiac: Positive: Regular Rate, S1/S2, PMI, Laterally Displaced. Negative: S4 Lungs: Positive: clear to auscultation, No Wheeze, Rales, Rhonchi Neuro: Positive: Other (sedated intubated) Abdomen: Positive: Soft Skin: Positive: Clear Extremities: Present: +1 Edema - Labs and Meds CBC 05/31/21 Range/Units 05:16 WBC 10.9 (4.5-11.0) K/mm3 RBC 3.78 (3.65-5.03) M/mm3 Hgb 11.1 L (11.8-15.2) gm/dl Hct 35.6 (35.5-45.6) % Plt Count 116 L (140-440) K/mm3 Comprehensive Metabolic Panel 05/31/21 Range/Units 05:16 Sodium 140 (137-145) mmol/L Potassium 4.8 (3.6-5.0) mmol/L Chloride 105.5 (98-107) mmol/L Carbon Dioxide 25 (22-30) mmol/L BUN 62 H (9-20) mg/dL Creatinine 1.9 H (0.8-1.3) mg/dL Glucose 103 H (75-100) mg/dL Calcium 8.9 (8.4-10.2) mg/dL - Imaging and Cardiology EKG: report reviewed (Sinus tachycardia no acute ST-T wave changes) - Allied health notes Allied health notes reviewed: nursing
[2021-05-31] MEDS: IPRATROPIUM/ALBUTEROL SULFATE 3 ML AMPUL.NEB IH SCH ×3 (08:06→19:07)
[2021-05-31] MEDS: SILDENAFIL 20 MG TAB PO SCH ×3 (09:15→22:05)
[2021-05-31] MEDS: FAMOTIDINE 20 MG TAB FEEDTUBE SCH ×2 (09:16→22:04)
[2021-05-31] MEDS: APIXABAN 2.5 MG TAB PO SCH ×2 (09:16→22:05)
[2021-05-31] MEDS: SENNOSIDES/DOCUSATE SODIUM 8.6/50 MG TAB FEEDTUBE SCH ×2 (09:16→22:05)
[2021-05-31] MEDS: fentaNYL DRIP Premix 2,000 MCG/100 ML BAG IV SCH ×5 (09:38→23:05)
--- NOTE | 2021-05-31 10:16 | Progress Note ---
Assessment and Plan Acute Renal Failure likely on CKD Hypertension Acute Respiratory Failure Pneumonia, community-acquired Morbid obesity Obstructive sleep apnea Edema Plan: Cr slightly up, monitor. Renally dose medications Obtain daily weights Monitor I/O's daily Avoid nephrotoxic agents No acute indication for [employer] Will monitor renal function closely Subjective Date of service: 05/31/21 Principal diagnosis: Acute hypoxemic and hypercapnic resp failure; PUI COVID-19; Pneumonia; FERMIN Interval history: Making urine. Objective - Exam Narrative Exam: General appearance: Present: no acute distress, other (Intubated) - EENT Eyes: Present: PERRL, EOM intact ENT: clear oral mucosa - Neck Neck: Present: normal ROM - Respiratory Respiratory effort: normal Respiratory: bilateral: diminished - Cardiovascular Rhythm: regular Heart Sounds: Present: S1 & S2. Absent: systolic murmur, diastolic murmur - Extremities Extremities: no ischemia, pulses intact, pulses symmetrical, normal temperature, normal color Peripheral Pulses: within normal limits - Abdominal General gastrointestinal: soft, non-tender, non-distended, normal bowel sounds - Integumentary Integumentary: Present: warm, dry - Psychiatric Psychiatric: other (sedated) - Neurologic Neurologic: moves all extremities, other - Vital Signs Vital signs: Vital Signs - 12hr 05/30/21 05/30/21 05/31/21 23:30 23:46 00:00 Temperature 98.8 F Pulse Rate 102 H 103 H 110 H Pulse Rate [ Anterior Bilateral Throughout] Respiratory 25 H 25 H 25 H Rate Respiratory Rate [Anterior Bilateral Throughout] Blood Pressure 87/48 74/35 98/41 O2 Sat by Pulse 97 96 97 Oximetry 05/31/21 05/31/21 05/31/21 00:16 00:30 00:46 Temperature Pulse Rate 127 H 119 H 110 H Pulse Rate [ Anterior Bilateral Throughout] Respiratory 25 H 26 H 18 Rate Respiratory Rate [Anterior Bilateral Throughout] Blood Pressure 147/86 110/59 110/59 O2 Sat by Pulse 95 97 98 Oximetry 05/31/21 05/31/21 05/31/21 01:00 EST 01:16 EST 01:30 EST Temperature Pulse Rate 123 H 106 H 107 H Pulse Rate [ Anterior Bilateral Throughout] Respiratory 25 H 24 25 H Rate Respiratory Rate [Anterior Bilateral Throughout] Blood Pressure 99/57 97/53 99/57 O2 Sat by Pulse 96 98 96 Oximetry 1105/31/21 05/31/21 01:46 EST 02:00 02:16 Temperature Pulse Rate 114 H 119 H 132 H Pulse Rate [ Anterior Bilateral Throughout] Respiratory 25 H 25 H 25 H Rate Respiratory Rate [Anterior Bilateral Throughout] Blood Pressure 99/57 100/53 100/53 O2 Sat by Pulse 97 98 96 Oximetry 05/31/21 05/31/21 05/31/21 02:30 02:42 02:45 Temperature 99.0 F Pulse Rate 106 H 101 H Pulse Rate [ Anterior Bilateral Throughout] Respiratory 25 H 25 H Rate Respiratory Rate [Anterior Bilateral Throughout] Blood Pressure 88/45 88/45 O2 Sat by Pulse 97 96 Oximetry 05/31/21 05/31/21 05/31/21 03:00 03:15 03:30 Temperature Pulse Rate 106 H 111 H 118 H Pulse Rate [ Anterior Bilateral Throughout] Respiratory 25 H 25 H 25 H Rate Respiratory Rate [Anterior Bilateral Throughout] Blood Pressure 93/45 95/59 110/54 O2 Sat by Pulse 96 94 97 Oximetry 05/31/21 05/31/21 05/31/21 03:45 04:00 04:10 Temperature Pulse Rate 109 H 105 H 107 H Pulse Rate [ Anterior Bilateral Throughout] Respiratory 25 H 25 H Rate Respiratory Rate [Anterior Bilateral Throughout] Blood Pressure 99/48 92/41 92/41 O2 Sat by Pulse 95 96 97 Oximetry 05/31/21 05/31/21 05/31/21 04:15 04:30 04:45 Temperature Pulse Rate 109 H 102 H 102 H Pulse Rate [ Anterior Bilateral Throughout] Respiratory 25 H 25 H 25 H Rate Respiratory Rate [Anterior Bilateral Throughout] Blood Pressure 86/37 94/40 101/44 O2 Sat by Pulse 97 97 97 Oximetry 05/31/21 05/31/21 05/31/21 05:00 05:15 05:30 Temperature Pulse Rate 117 H 146 H 131 H Pulse Rate [ Anterior Bilateral Throughout] Respiratory 25 H 25 H 25 H Rate Respiratory Rate [Anterior Bilateral Throughout] Blood Pressure 99/53 138/80 112/53 O2 Sat by Pulse 94 93 97 Oximetry 05/31/21 05/31/21 05/31/21 05:45 06:00 06:15 Temperature Pulse Rate 118 H 112 H 109 H Pulse Rate [ Anterior Bilateral Throughout] Respiratory 25 H 25 H 25 H Rate Respiratory Rate [Anterior Bilateral Throughout] Blood Pressure 95/41 89/41 89/41 O2 Sat by Pulse 93 91 96 Oximetry 05/31/21 05/31/21 05/31/21 06:30 06:45 07:00 Temperature Pulse Rate 103 H 119 H 123 H Pulse Rate [ Anterior Bilateral Throughout] Respiratory 25 H 25 H 25 H Rate Respiratory Rate [Anterior Bilateral Throughout] Blood Pressure 89/40 100/55 117/61 O2 Sat by Pulse Oximetry 05/31/21 05/31/21 05/31/21 07:15 07:30 08:00 Temperature 99.5 F Pulse Rate 136 H 122 H Pulse Rate [ Anterior Bilateral Throughout] Respiratory 21 16 Rate Respiratory Rate [Anterior Bilateral Throughout] Blood Pressure 114/52 92/44 O2 Sat by Pulse 94 Oximetry 05/31/21 08:06 Temperature Pulse Rate 115 H Pulse Rate [ 111 H Anterior Bilateral Throughout] Respiratory Rate Respiratory 25 H Rate [Anterior Bilateral Throughout] Blood Pressure 97/50 O2 Sat by Pulse 95 Oximetry - Lab 05/31/21 05:16 05/31/21 05:16 Most recent lab results ABG pH 7.348 (7.320-7.450) 05/31/21 Unknown ABG pCO2 48.1 mm Hg 05/30/21 09:22 ABG pO2 107.0 mm Hg (80.0-90.0) H 05/30/21 09:22 ABG HCO3 24.4 mmol/L (20.0-26.0) 05/30/21 09:22 ABG O2 Saturation 92.3 (0-100) 05/31/21 Unknown Calcium 8.9 mg/dL (8.4-10.2) 05/31/21 05:16 Phosphorus 2.90 mg/dL (2.5-4.5) 05/28/21 05:30 Magnesium 2.40 mg/dL (1.7-2.3) H 05/28/21 05:30 Urine Creatinine 128.6 mg/dL (0.1-20.0) H 05/26/21 Unknown Urine Sodium 37 mmol/L 05/26/21 Unknown Medications & Allergies - Medications Allergies/Adverse Reactions: Allergies No Known Allergies Allergy (Unverified 05/25/21 12:48) Home Medications: Home Medications Medication Instructions Recorded Confirmed Last Taken Type Amoxicillin [Amoxicillin TAB] 875 mg PO BID #20 tablet 11/12/14 05/29/21 Unknown Rx Apixaban 2.5 mg PO BID 05/29/21 05/29/21 Unknown History Cholecalciferol (Vitamin D3) 3 mg PO 1XW 05/29/21 05/29/21 Unknown History Metoprolol 150 mg PO BID 05/29/21 05/29/21 Unknown History Torsemide 80 mg PO DAILY 05/29/21 05/29/21 Unknown History Active Medications: Generic Name Dose Route Start Last Admin Trade Name Freq PRN Reason Stop Dose Admin Acetaminophen 650 mg 05/23/21 20:42 Acetaminophen 325 Mg Tab PO Q4H PRN Pain MILD(1-3)/Fever >100.5/CASTORENA Albuterol 2.5 mg 05/23/21 21:11 Albuterol 2.5 Mg/3 Ml Nebu IH Q4HRT PRN Shortness Of Breath Albuterol/Ipratropium 1 ampul 05/29/21 08:00 05/31/21 08:06 Ipratropium/Albuterol Sulfate 3 Ml Ampul.Neb IH 1 ampul TIDRT ROSEMARIE Administration Lipase/Protease/Amylase 1 each 05/24/21 10:14 Lipase 10,500/Protease 25,000/Amylase 43,750 (Units) Dr Cap FEEDTUBE PRN PRN For Clogged Feeding Tube Apixaban 2.5 mg 05/29/21 13:00 05/31/21 09:16 Apixaban 2.5 Mg Tab PO 2.5 mg Q12HR ROSEMARIE Administration Protocol Famotidine 20 mg 05/27/21 10:00 05/31/21 09:16 Famotidine 20 Mg Tab FEEDTUBE 20 mg BID ROSEMARIE Administration Fentanyl 50 mcg 05/23/21 12:34 05/23/21 18:50 Fentanyl 100 Mcg/2 Ml Inj IV 50 mcg Q10MIN PRN Administration ANALGESIA Hydrophilic Ointment 1 applic 05/23/21 12:34 Lip Therapy Vaseline TP Q2HR PRN Dry Lips Fentanyl Citrate 2,000 mcg in 100 mls @ 8.528 mls/hr 05/23/21 13:00 05/31/21 09:38 Fentanyl Drip Premix IV 2 mcg/kg/hr TITR ROSEMARIE 17.055 mls/hr Administration Protocol 1 MCG/KG/HR NORepinephrine/NS 8 MG-250 ML 8 mg in 250 mls @ 3.75 mls/hr 05/24/21 20:00 05/25/21 15:20 Norepinephrine/Ns 8 Mg-250 Ml (Double Conc) IV 0 mcg/min TITRATE ROSEMARIE 0 mls/hr Titration Protocol 2 MCG/MIN Propofol 1,000 mg in 100 mls @ 5.117 mls/hr 05/25/21 19:00 05/31/21 09:37 Diprivan 10 Mg/Ml IV 5 mcg/kg/min TITR ROSEMARIE 5.117 mls/hr Administration Protocol 5 MCG/KG/MIN Multi-Ingred Cream/Lotion/Oil/Oint 1 applic 05/23/21 12:34 05/30/21 22:14 Mineral Oil/Petrolatum, White Ophth Oint 3.5 Gm OU 1 applic Q4HR PRN Administration Dry Eye(s) Ondansetron HCl 4 mg 05/23/21 20:42 Ondansetron 4 Mg/2 Ml Inj IV Q8H PRN Nausea And Vomiting Senna/Docusate Sodium 1 tab 05/23/21 22:00 05/31/21 09:16 Sennosides/Docusate Sodium 8.6/50 Mg Tab FEEDTUBE 1 tab BID ROSEMARIE Administration Sildenafil Citrate 20 mg 05/28/21 20:00 05/31/21 09:15 Sildenafil 20 Mg Tab PO Not Given TID ROSEMARIE Simple Syrup 15 ml 05/24/21 10:14 Simple Syrup 15 Ml FEEDTUBE PRN PRN Hypoglycemia Simple Syrup 30 ml 05/24/21 10:14 Simple Syrup 15 Ml FEEDTUBE PRN PRN Hypoglycemia Sodium Bicarbonate 325 mg 05/24/21 10:14 Sodium Bicarbonate 325 Mg Tab FEEDTUBE PRN PRN For Clogged Feeding Tube Sodium Chloride 10 ml 05/23/21 22:00 05/31/21 09:39 Sodium Chloride 0.9% 10 Ml Flush Syringe IV 10 ml BID ROSEMARIE Administration Sodium Chloride 10 ml 05/23/21 20:42 Sodium Chloride 0.9% 10 Ml Flush Syringe IV PRN PRN LINE FLUSH
[2021-05-31] MEDS: fentaNYL 100 MCG/2 ML INJ IV PRN (10:20)
[2021-05-31] MEDS ORDERED: LACTATED RINGERS 250 ML IV SCH (11:00)
--- NOTE | 2021-05-31 14:10 | Progress Note ---
Assessment and Plan Acute possibly on chronic hypoxemic and hypercapnic respiratory failure Pneumonia, community-acquired Acute toxic metabolic encephalopathy Person under investigation for COVID-19 Morbid obesity Obstructive sleep apnea History of hypertension Acute kidney injury Hyperkalemia Elevated serum transaminases Possible shock liver Hyperammonemia Non-ST elevation myocardial infarction - IVNS & 75 mls/ hr X 2 liters - reduced peep to 12 cm H2O - FiO2 at 50% - continue care as below otherwise; - continue Eliquis - continue Revatio re: pulm HTN - prn vasopressors for target MAP > 65 mmHg - nephrology input appreciated (azotemia improving) - continue Daily SAT and SBT assessment as tolerated - continue to wean supplemental oxygen for target O2 sat's > 90% acutely - VAP bundle addressed - continue lung protective strategies - continue bronchodilators with pulmonary hygiene per RT - wean per pulmonary driven protocols otherwise - avoid nephrotoxins, renally dose all medications - continue accuchecks with glycemic control per SSI (While critically ill target blood glucose of 140-180 mg/dL; avoid hypoglycemia) - sedation prn for target RASS 0 to -1 - continue to avoid benzodiazepine's, reduce the possibility of delirium - AB's per ID rec's - prn analgesia per CPOT score - Maintenance of sleep-wake cycle, avoid delirium - continue enteral nutritional support at goal rate as tolerated - G.I. & VTE prophylaxis - PT/OT/ROM exercises - continue mobility protocols for pressure ulcer prophylaxis - Monitor hemodynamics closely - continue other care per attending / other consultants - discharge planning ongoing concurrently COVID SPECIFIC INTERVENTIONS - COVID-19 test result pending .... Re-evaluate in am & prn CONDITION: CRITICAL PROGNOSIS: GUARDED CODE STATUS: FULL CODE The high probability of a clinically significant, sudden or life-threatening deterioration of the [respiratory, cardiovascular, renal & neurologic] system(s) required my full and direct attention, intervention and personal management. The aggregate critical care time was [34] minutes without overlap. Time includes spent on; [x] Data Review and interpretation [x] Patient assessment and monitoring of vital signs [x] Documentation [x] Medication orders and management Subjective Date of service: 05/31/21 Principal diagnosis: Acute hypoxemic and hypercapnic resp failure; PUI COVID-19; Pneumonia; FERMIN Interval history: Patient is seen today for: Acute hypoxemic and hypercapnic respiratory failure; PUI NCOVID-19; Pneumonia; CAP; FERMIN; REVA Seen and examined at bedside; 24hour events reviewed; nursing and respiratory c are staff consulted; no adverse overnight events reported to me; remaions on MVS; tachycardia today and heart rate variability; also serun Cr rising; he denies acute pain; no N/V; urine output trending lower also. Objective Vital Signs - 12hr 05/31/21 05/31/21 05/31/21 02:16 02:30 02:42 Temperature 99.0 F Pulse Rate 132 H 106 H Pulse Rate [ Anterior Bilateral Throughout] Respiratory 25 H 25 H Rate Respiratory Rate [Anterior Bilateral Throughout] Blood Pressure 100/53 88/45 O2 Sat by Pulse 96 97 Oximetry 05/31/21 05/31/21 05/31/21 02:45 03:00 03:15 Temperature Pulse Rate 101 H 106 H 111 H Pulse Rate [ Anterior Bilateral Throughout] Respiratory 25 H 25 H 25 H Rate Respiratory Rate [Anterior Bilateral Throughout] Blood Pressure 88/45 93/45 95/59 O2 Sat by Pulse 96 96 94 Oximetry 05/31/21 05/31/21 05/31/21 03:30 03:45 04:00 Temperature Pulse Rate 118 H 109 H 105 H Pulse Rate [ Anterior Bilateral Throughout] Respiratory 25 H 25 H 25 H Rate Respiratory Rate [Anterior Bilateral Throughout] Blood Pressure 110/54 99/48 92/41 O2 Sat by Pulse 97 95 96 Oximetry 05/31/21 05/31/21 05/31/21 04:10 04:15 04:30 Temperature Pulse Rate 107 H 109 H 102 H Pulse Rate [ Anterior Bilateral Throughout] Respiratory 25 H 25 H Rate Respiratory Rate [Anterior Bilateral Throughout] Blood Pressure 92/41 86/37 94/40 O2 Sat by Pulse 97 97 97 Oximetry 05/31/21 05/31/21 05/31/21 04:45 05:00 05:15 Temperature Pulse Rate 102 H 117 H 146 H Pulse Rate [ Anterior Bilateral Throughout] Respiratory 25 H 25 H 25 H Rate Respiratory Rate [Anterior Bilateral Throughout] Blood Pressure 101/44 99/53 138/80 O2 Sat by Pulse 97 94 93 Oximetry 05/31/21 05/31/21 05/31/21 05:30 05:45 06:00 Temperature Pulse Rate 131 H 118 H 112 H Pulse Rate [ Anterior Bilateral Throughout] Respiratory 25 H 25 H 25 H Rate Respiratory Rate [Anterior Bilateral Throughout] Blood Pressure 112/53 95/41 89/41 O2 Sat by Pulse 97 93 91 Oximetry 05/31/21 05/31/21 05/31/21 06:15 06:30 06:45 Temperature Pulse Rate 109 H 103 H 119 H Pulse Rate [ Anterior Bilateral Throughout] Respiratory 25 H 25 H 25 H Rate Respiratory Rate [Anterior Bilateral Throughout] Blood Pressure 89/41 89/40 100/55 O2 Sat by Pulse 96 Oximetry 05/31/21 05/31/21 05/31/21 07:00 07:15 07:30 Temperature Pulse Rate 123 H 136 H 122 H Pulse Rate [ Anterior Bilateral Throughout] Respiratory 25 H 21 16 Rate Respiratory Rate [Anterior Bilateral Throughout] Blood Pressure 117/61 114/52 92/44 O2 Sat by Pulse 94 Oximetry 05/31/21 05/31/21 05/31/21 07:45 08:00 08:06 Temperature 99.5 F Pulse Rate 117 H 117 H 115 H Pulse Rate [ 111 H Anterior Bilateral Throughout] Respiratory 17 23 Rate Respiratory 25 H Rate [Anterior Bilateral Throughout] Blood Pressure 90/41 95/44 97/50 O2 Sat by Pulse 94 96 95 Oximetry 05/31/21 05/31/21 05/31/21 08:15 08:30 08:45 Temperature Pulse Rate 111 H 111 H 127 H Pulse Rate [ Anterior Bilateral Throughout] Respiratory 20 21 19 Rate Respiratory Rate [Anterior Bilateral Throughout] Blood Pressure 84/37 96/46 114/55 O2 Sat by Pulse 95 95 95 Oximetry 05/31/21 05/31/21 05/31/21 09:00 09:15 09:30 Temperature Pulse Rate 116 H 112 H 129 H Pulse Rate [ Anterior Bilateral Throughout] Respiratory 21 25 H 28 H Rate Respiratory Rate [Anterior Bilateral Throughout] Blood Pressure 93/45 95/46 112/55 O2 Sat by Pulse 95 98 98 Oximetry 05/31/21 05/31/21 05/31/21 09:45 10:00 10:15 Temperature Pulse Rate 123 H 136 H 131 H Pulse Rate [ Anterior Bilateral Throughout] Respiratory 25 H 25 H 21 Rate Respiratory Rate [Anterior Bilateral Throughout] Blood Pressure 105/49 101/53 93/42 O2 Sat by Pulse 96 95 94 Oximetry 05/31/21 05/31/21 05/31/21 10:30 10:45 11:00 Temperature Pulse Rate 121 H 121 H 134 H Pulse Rate [ Anterior Bilateral Throughout] Respiratory 20 23 21 Rate Respiratory Rate [Anterior Bilateral Throughout] Blood Pressure 103/51 103/52 107/59 O2 Sat by Pulse 95 96 96 Oximetry 05/31/21 05/31/21 05/31/21 11:14 11:15 11:30 Temperature Pulse Rate 130 H 120 H 139 H Pulse Rate [ Anterior Bilateral Throughout] Respiratory 17 12 Rate Respiratory Rate [Anterior Bilateral Throughout] Blood Pressure 107/59 99/49 119/70 O2 Sat by Pulse 95 96 96 Oximetry 05/31/21 05/31/21 05/31/21 11:45 12:00 12:15 Temperature 99.3 F Pulse Rate 110 H 119 H 107 H Pulse Rate [ Anterior Bilateral Throughout] Respiratory 28 H 25 H 25 H Rate Respiratory Rate [Anterior Bilateral Throughout] Blood Pressure 99/48 105/56 93/42 O2 Sat by Pulse 95 94 95 Oximetry 05/31/21 05/31/21 05/31/21 12:30 12:45 13:00 Temperature Pulse Rate 108 H 104 H 115 H Pulse Rate [ Anterior Bilateral Throughout] Respiratory 26 H 24 25 H Rate Respiratory Rate [Anterior Bilateral Throughout] Blood Pressure 95/53 93/49 112/62 O2 Sat by Pulse 96 96 97 Oximetry 05/31/21 05/31/21 05/31/21 13:15 13:30 13:32 Temperature Pulse Rate 119 H 112 H Pulse Rate [ 109 H Anterior Bilateral Throughout] Respiratory 25 H 26 H Rate Respiratory 25 H Rate [Anterior Bilateral Throughout] Blood Pressure 112/65 110/59 O2 Sat by Pulse 96 98 Oximetry 05/31/21 05/31/21 13:45 14:00 Temperature Pulse Rate 116 H 123 H Pulse Rate [ Anterior Bilateral Throughout] Respiratory 25 H 21 Rate Respiratory Rate [Anterior Bilateral Throughout] Blood Pressure 111/59 110/61 O2 Sat by Pulse 99 97 Oximetry Constitutional: no acute distress, other (middle aged morbidly obese male with mildly increased respiratory effort at rest on MVS) Eyes: non-icteric ENT: oropharynx moist, other (ETT 24 cm FRANCIS) Neck: supple, no lymphadenopathy, no JVD Effort: mildly labored Ascultation: Bilateral: diminished breath sounds, rhonchi Percussion: Bilateral: not dull Cardiovascular: regular rate and rhythm Gastrointestinal: normoactive bowel sounds, soft, non-tender, non-distended Integumentary: rash (stasis dermatitis) Extremities: no cyanosis, pulses normal, no ischemia or petechiae, edema (trace) Neurologic: non-focal exam (grossly), pupils equal and round, CN II-XII normal, other (sedated) Psychiatric: mood appropriate, affect normal CBC and BMP: 05/31/21 05:16 05/31/21 05:16 ABG, PT/INR, D-dimer: ABG ABG pH 7.348 (7.320-7.450) 05/31/21 Unknown POC ABG pCO2 48.4 mmHg (32.0-48.0) H 05/31/21 Unknown ABG pCO2 48.1 mm Hg 05/30/21 09:22 POC ABG pO2 63.0 mmHg (83-108) L 05/31/21 Unknown ABG pO2 107.0 mm Hg (80.0-90.0) H 05/30/21 09:22 POC ABG HCO3 26.0 05/31/21 Unknown ABG O2 Saturation 92.3 (0-100) 05/31/21 Unknown PT/INR, D-dimer PT 15.3 Sec. (12.2-14.9) H 05/29/21 13:40 INR 1.09 (0.87-1.13) 05/29/21 13:40 D-Dimer 4444.85 ng/mlDDU (0-234) H 05/23/21 15:09 Abnormal lab findings: Abnormal Labs 05/23/21 05/23/21 05/23/21 15:00 15:09 15:09 WBC Hgb MCV 95 H MCHC 30 L RDW 20.1 H Plt Count Lymph % (Auto) 5.9 L Lymph # (Auto) 0.6 L Seg Neutrophils % 87.5 H Seg Neuts % (Manual) Lymphocytes % (Manual) Seg Neutrophils # 8.2 H Seg Neutrophils # Man Lymphocytes # (Manual) PT 18.1 H INR 1.36 H APTT 23.1 L D-Dimer ABG pH 7.215 L POC ABG pCO2 POC ABG pO2 ABG pO2 ABG HCO3 28.4 H ABG O2 Saturation ABG Base Excess ABG Hemoglobin 13.5 L ABG Oxyhemoglobin ABG Potassium ABG Glucose Oxyhemoglobin 92.6 L Sodium Potassium Carbon Dioxide BUN Creatinine Glucose POC Glucose Calcium Magnesium AST ALT Ammonia Total Creatine Kinase Troponin T C-Reactive Protein NT-Pro-B Natriuret Pep Albumin HDL Cholesterol Arterial Blood Glucose Urine WBC (Auto) Urine Creatinine Salicylates Acetaminophen 05/23/21 05/23/21 05/23/21 15:09 15:09 15:09 WBC Hgb MCV MCHC RDW Plt Count Lymph % (Auto) Lymph # (Auto) Seg Neutrophils % Seg Neuts % (Manual) Lymphocytes % (Manual) Seg Neutrophils # Seg Neutrophils # Man Lymphocytes # (Manual) PT INR APTT D-Dimer ABG pH POC ABG pCO2 POC ABG pO2 ABG pO2 ABG HCO3 ABG O2 Saturation ABG Base Excess ABG Hemoglobin ABG Oxyhemoglobin ABG Potassium ABG Glucose Oxyhemoglobin Sodium Potassium 5.2 H Carbon Dioxide BUN 40 H Creatinine 3.2 H Glucose 133 H POC Glucose Calcium Magnesium AST 1094 H ALT 1089 H Ammonia 75.0 H Total Creatine Kinase Troponin T 0.038 H C-Reactive Protein NT-Pro-B Natriuret Pep Albumin 3.0 L HDL Cholesterol 29 L Arterial Blood Glucose Urine WBC (Auto) Urine Creatinine Salicylates < 0.3 L Acetaminophen 05/23/21 05/23/21 05/23/21 15:09 15:09 15:09 WBC Hgb MCV MCHC RDW Plt Count Lymph % (Auto) Lymph # (Auto) Seg Neutrophils % Seg Neuts % (Manual) Lymphocytes % (Manual) Seg Neutrophils # Seg Neutrophils # Man Lymphocytes # (Manual) PT INR APTT D-Dimer 4444.85 H ABG pH POC ABG pCO2 POC ABG pO2 ABG pO2 ABG HCO3 ABG O2 Saturation ABG Base Excess ABG Hemoglobin ABG Oxyhemoglobin ABG Potassium ABG Glucose Oxyhemoglobin Sodium Potassium Carbon Dioxide BUN Creatinine Glucose POC Glucose Calcium Magnesium AST ALT Ammonia Total Creatine Kinase 48 L Troponin T C-Reactive Protein NT-Pro-B Natriuret Pep 23712 H Albumin HDL Cholesterol Arterial Blood Glucose Urine WBC (Auto) Urine Creatinine Salicylates Acetaminophen 5.0 L 05/23/21 05/23/21 05/23/21 19:10 20:48 Unknown WBC Hgb MCV MCHC RDW Plt Count Lymph % (Auto) Lymph # (Auto) Seg Neutrophils % Seg Neuts % (Manual) Lymphocytes % (Manual) Seg Neutrophils # Seg Neutrophils # Man Lymphocytes # (Manual) PT INR APTT D-Dimer ABG pH 7.332 L POC ABG pCO2 POC ABG pO2 ABG pO2 74.0 L ABG HCO3 ABG O2 Saturation 94.4 L ABG Base Excess ABG Hemoglobin 12.5 L ABG Oxyhemoglobin ABG Potassium ABG Glucose Oxyhemoglobin 92.3 L Sodium Potassium Carbon Dioxide BUN Creatinine Glucose POC Glucose Calcium Magnesium AST ALT Ammonia Total Creatine Kinase Troponin T C-Reactive Protein 10.00 H NT-Pro-B Natriuret Pep Albumin HDL Cholesterol Arterial Blood Glucose Urine WBC (Auto) 34.0 H Urine Creatinine Salicylates Acetaminophen 05/24/21 05/24/21 05/24/21 04:55 04:55 09:15 WBC Hgb MCV 95 H MCHC 31 L RDW 19.4 H Plt Count Lymph % (Auto) Lymph # (Auto) Seg Neutrophils % Seg Neuts % (Manual) 97.0 H Lymphocytes % (Manual) 3.0 L Seg Neutrophils # Seg Neutrophils # Man 8.4 H Lymphocytes # (Manual) 0.3 L PT INR APTT D-Dimer ABG pH POC ABG pCO2 POC ABG pO2 ABG pO2 90.6 H ABG HCO3 ABG O2 Saturation ABG Base Excess -3.7 L ABG Hemoglobin 13.5 L ABG Oxyhemoglobin ABG Potassium ABG Glucose Oxyhemoglobin Sodium Potassium 5.5 H Carbon Dioxide 20 L BUN 39 H Creatinine 2.2 H Glucose 155 H POC Glucose Calcium 8.3 L Magnesium AST 571 H ALT 951 H Ammonia Total Creatine Kinase Troponin T C-Reactive Protein NT-Pro-B Natriuret Pep Albumin 3.2 L HDL Cholesterol Arterial Blood Glucose Urine WBC (Auto) Urine Creatinine Salicylates Acetaminophen 05/25/21 05/25/21 05/25/21 04:20 14:37 14:37 WBC Hgb MCV 96 H MCHC 30 L RDW 20.7 H Plt Count Lymph % (Auto) Lymph # (Auto) Seg Neutrophils % Seg Neuts % (Manual) Lymphocytes % (Manual) Seg Neutrophils # Seg Neutrophils # Man Lymphocytes # (Manual) PT INR APTT D-Dimer ABG pH 7.222 L POC ABG pCO2 57.8 H POC ABG pO2 67.3 L ABG pO2 ABG HCO3 ABG O2 Saturation ABG Base Excess ABG Hemoglobin ABG Oxyhemoglobin 89.1 L ABG Potassium 5.1 H ABG Glucose 182 H Oxyhemoglobin Sodium Potassium 5.3 H Carbon Dioxide BUN 47 H Creatinine 2.0 H Glucose 154 H POC Glucose Calcium Magnesium AST 93 H ALT 590 H Ammonia Total Creatine Kinase Troponin T C-Reactive Protein NT-Pro-B Natriuret Pep Albumin 3.6 L HDL Cholesterol Arterial Blood Glucose 182 H Urine WBC (Auto) Urine Creatinine Salicylates Acetaminophen 05/25/21 05/25/21 05/26/21 21:50 23:30 05:31 WBC Hgb MCV MCHC RDW Plt Count Lymph % (Auto) Lymph # (Auto) Seg Neutrophils % Seg Neuts % (Manual) Lymphocytes % (Manual) Seg Neutrophils # Seg Neutrophils # Man Lymphocytes # (Manual) PT INR APTT D-Dimer ABG pH 7.328 L POC ABG pCO2 POC ABG pO2 ABG pO2 63.3 L ABG HCO3 ABG O2 Saturation 92.1 L ABG Base Excess -2.4 L ABG Hemoglobin 11.3 L ABG Oxyhemoglobin ABG Potassium ABG Glucose Oxyhemoglobin 90.3 L Sodium Potassium Carbon Dioxide BUN Creatinine Glucose POC Glucose 131 H 123 H Calcium Magnesium AST ALT Ammonia Total Creatine Kinase Troponin T C-Reactive Protein NT-Pro-B Natriuret Pep Albumin HDL Cholesterol Arterial Blood Glucose Urine WBC (Auto) Urine Creatinine Salicylates Acetaminophen 05/26/21 05/26/21 05/26/21 09:02 10:57 17:30 WBC Hgb MCV MCHC RDW Plt Count Lymph % (Auto) Lymph # (Auto) Seg Neutrophils % Seg Neuts % (Manual) Lymphocytes % (Manual) Seg Neutrophils # Seg Neutrophils # Man Lymphocytes # (Manual) PT INR APTT D-Dimer ABG pH 7.346 L POC ABG pCO2 POC ABG pO2 ABG pO2 60.5 L ABG HCO3 ABG O2 Saturation 90.7 L ABG Base Excess ABG Hemoglobin 13.1 L ABG Oxyhemoglobin ABG Potassium ABG Glucose Oxyhemoglobin 88.9 L Sodium Potassium Carbon Dioxide BUN Creatinine Glucose POC Glucose 127 H 141 H Calcium Magnesium AST ALT Ammonia Total Creatine Kinase Troponin T C-Reactive Protein NT-Pro-B Natriuret Pep Albumin HDL Cholesterol Arterial Blood Glucose Urine WBC (Auto) Urine Creatinine Salicylates Acetaminophen 05/26/21 05/26/21 05/26/21 21:00 Unknown Unknown WBC 4.2 L Hgb 11.7 L MCV MCHC 31 L RDW 20.3 H Plt Count 132 L Lymph % (Auto) Lymph # (Auto) Seg Neutrophils % Seg Neuts % (Manual) Lymphocytes % (Manual) Seg Neutrophils # Seg Neutrophils # Man Lymphocytes # (Manual) PT INR APTT D-Dimer ABG pH POC ABG pCO2 POC ABG pO2 56.7 L ABG pO2 ABG HCO3 ABG O2 Saturation ABG Base Excess ABG Hemoglobin ABG Oxyhemoglobin 88.8 L ABG Potassium 4.7 H ABG Glucose 152 H Oxyhemoglobin Sodium Potassium 5.2 H Carbon Dioxide BUN 47 H Creatinine 2.0 H Glucose 136 H POC Glucose Calcium Magnesium AST 64 H ALT 448 H Ammonia Total Creatine Kinase Troponin T C-Reactive Protein NT-Pro-B Natriuret Pep Albumin 3.4 L HDL Cholesterol Arterial Blood Glucose 152 H Urine WBC (Auto) Urine Creatinine Salicylates Acetaminophen 05/26/21 05/27/21 05/27/21 Unknown 08:00 08:00 WBC 4.2 L Hgb MCV MCHC RDW 21.2 H Plt Count 126 L Lymph % (Auto) Lymph # (Auto) Seg Neutrophils % Seg Neuts % (Manual) Lymphocytes % (Manual) Seg Neutrophils # Seg Neutrophils # Man Lymphocytes # (Manual) PT INR APTT D-Dimer ABG pH POC ABG pCO2 POC ABG pO2 ABG pO2 ABG HCO3 ABG O2 Saturation ABG Base Excess ABG Hemoglobin ABG Oxyhemoglobin ABG Potassium ABG Glucose Oxyhemoglobin Sodium Potassium Carbon Dioxide BUN 52 H Creatinine 1.8 H Glucose 171 H POC Glucose Calcium 8.3 L Magnesium AST ALT Ammonia Total Creatine Kinase Troponin T C-Reactive Protein NT-Pro-B Natriuret Pep Albumin HDL Cholesterol Arterial Blood Glucose Urine WBC (Auto) Urine Creatinine 128.6 H Salicylates Acetaminophen 05/27/21 05/27/21 05/27/21 10:15 11:48 17:13 WBC Hgb MCV MCHC RDW Plt Count Lymph % (Auto) Lymph # (Auto) Seg Neutrophils % Seg Neuts % (Manual) Lymphocytes % (Manual) Seg Neutrophils # Seg Neutrophils # Man Lymphocytes # (Manual) PT INR APTT D-Dimer ABG pH 7.300 L POC ABG pCO2 POC ABG pO2 ABG pO2 42.1 L ABG HCO3 ABG O2 Saturation 72.8 L ABG Base Excess ABG Hemoglobin 12.7 L ABG Oxyhemoglobin ABG Potassium ABG Glucose Oxyhemoglobin 71.4 L Sodium Potassium Carbon Dioxide BUN Creatinine Glucose POC Glucose 139 H 145 H Calcium Magnesium AST ALT Ammonia Total Creatine Kinase Troponin T C-Reactive Protein NT-Pro-B Natriuret Pep Albumin HDL Cholesterol Arterial Blood Glucose Urine WBC (Auto) Urine Creatinine Salicylates Acetaminophen 05/28/21 05/28/21 05/28/21 05:30 11:37 13:32 WBC Hgb MCV MCHC RDW Plt Count Lymph % (Auto) Lymph # (Auto) Seg Neutrophils % Seg Neuts % (Manual) Lymphocytes % (Manual) Seg Neutrophils # Seg Neutrophils # Man Lymphocytes # (Manual) PT INR APTT D-Dimer ABG pH 7.339 L POC ABG pCO2 POC ABG pO2 ABG pO2 53.7 L ABG HCO3 ABG O2 Saturation 86.5 L ABG Base Excess ABG Hemoglobin 12.3 L ABG Oxyhemoglobin ABG Potassium ABG Glucose Oxyhemoglobin 84.6 L Sodium Potassium Carbon Dioxide BUN 53 H Creatinine 1.6 H Glucose 118 H POC Glucose 115 H Calcium 8.0 L Magnesium 2.40 H AST ALT Ammonia Total Creatine Kinase Troponin T C-Reactive Protein NT-Pro-B Natriuret Pep Albumin HDL Cholesterol Arterial Blood Glucose Urine WBC (Auto) Urine Creatinine Salicylates Acetaminophen 05/28/21 05/29/21 05/29/21 Unknown 09:43 13:40 WBC Hgb 11.7 L MCV MCHC 31 L RDW 21.3 H 20.9 H Plt Count 121 L 103 L Lymph % (Auto) Lymph # (Auto) Seg Neutrophils % Seg Neuts % (Manual) Lymphocytes % (Manual) Seg Neutrophils # Seg Neutrophils # Man Lymphocytes # (Manual) PT INR APTT D-Dimer ABG pH POC ABG pCO2 POC ABG pO2 ABG pO2 60.9 L ABG HCO3 ABG O2 Saturation 90.7 L ABG Base Excess ABG Hemoglobin 12.0 L ABG Oxyhemoglobin ABG Potassium ABG Glucose Oxyhemoglobin 88.9 L Sodium Potassium Carbon Dioxide BUN Creatinine Glucose POC Glucose Calcium Magnesium AST ALT Ammonia Total Creatine Kinase Troponin T C-Reactive Protein NT-Pro-B Natriuret Pep Albumin HDL Cholesterol Arterial Blood Glucose Urine WBC (Auto) Urine Creatinine Salicylates Acetaminophen 05/29/21 05/29/21 05/30/21 13:40 13:40 04:42 WBC Hgb 11.7 L MCV 95 H MCHC RDW 20.8 H Plt Count 106 L Lymph % (Auto) Lymph # (Auto) Seg Neutrophils % Seg Neuts % (Manual) Lymphocytes % (Manual) Seg Neutrophils # Seg Neutrophils # Man Lymphocytes # (Manual) PT 15.3 H INR APTT D-Dimer ABG pH POC ABG pCO2 POC ABG pO2 ABG pO2 ABG HCO3 ABG O2 Saturation ABG Base Excess ABG Hemoglobin ABG Oxyhemoglobin ABG Potassium ABG Glucose Oxyhemoglobin Sodium Potassium Carbon Dioxide BUN Creatinine 1.7 H Glucose POC Glucose Calcium Magnesium AST ALT Ammonia Total Creatine Kinase Troponin T C-Reactive Protein NT-Pro-B Natriuret Pep Albumin HDL Cholesterol Arterial Blood Glucose Urine WBC (Auto) Urine Creatinine Salicylates Acetaminophen 05/30/21 05/30/21 05/30/21 04:42 07:47 09:22 WBC Hgb MCV MCHC RDW Plt Count Lymph % (Auto) Lymph # (Auto) Seg Neutrophils % Seg Neuts % (Manual) Lymphocytes % (Manual) Seg Neutrophils # Seg Neutrophils # Man Lymphocytes # (Manual) PT INR APTT D-Dimer ABG pH 7.323 L POC ABG pCO2 POC ABG pO2 ABG pO2 107.0 H ABG HCO3 ABG O2 Saturation ABG Base Excess ABG Hemoglobin 12.4 L ABG Oxyhemoglobin ABG Potassium ABG Glucose Oxyhemoglobin Sodium 135 L Potassium Carbon Dioxide BUN 63 H 63 H Creatinine 1.6 H 1.6 H Glucose POC Glucose Calcium 8.2 L Magnesium AST ALT Ammonia Total Creatine Kinase Troponin T C-Reactive Protein NT-Pro-B Natriuret Pep Albumin HDL Cholesterol Arterial Blood Glucose Urine WBC (Auto) Urine Creatinine Salicylates Acetaminophen 05/31/21 05/31/21 05/31/21 05:16 05:16 05:17 WBC Hgb 11.1 L MCV MCHC 31 L RDW 20.8 H Plt Count 116 L Lymph % (Auto) Lymph # (Auto) Seg Neutrophils % Seg Neuts % (Manual) Lymphocytes % (Manual) Seg Neutrophils # Seg Neutrophils # Man Lymphocytes # (Manual) PT INR APTT D-Dimer ABG pH POC ABG pCO2 POC ABG pO2 ABG pO2 ABG HCO3 ABG O2 Saturation ABG Base Excess ABG Hemoglobin ABG Oxyhemoglobin ABG Potassium ABG Glucose Oxyhemoglobin Sodium Potassium Carbon Dioxide BUN 62 H Creatinine 1.9 H Glucose 103 H POC Glucose 109 H Calcium Magnesium AST ALT Ammonia Total Creatine Kinase Troponin T C-Reactive Protein NT-Pro-B Natriuret Pep Albumin HDL Cholesterol Arterial Blood Glucose Urine WBC (Auto) Urine Creatinine Salicylates Acetaminophen 05/31/21 Unknown WBC Hgb MCV MCHC RDW Plt Count Lymph % (Auto) Lymph # (Auto) Seg Neutrophils % Seg Neuts % (Manual) Lymphocytes % (Manual) Seg Neutrophils # Seg Neutrophils # Man Lymphocytes # (Manual) PT INR APTT D-Dimer ABG pH POC ABG pCO2 48.4 H POC ABG pO2 63.0 L ABG pO2 ABG HCO3 ABG O2 Saturation ABG Base Excess ABG Hemoglobin 11.9 L ABG Oxyhemoglobin 91.4 L ABG Potassium 4.6 H ABG Glucose 110 H Oxyhemoglobin Sodium Potassium Carbon Dioxide BUN Creatinine Glucose POC Glucose Calcium Magnesium AST ALT Ammonia Total Creatine Kinase Troponin T C-Reactive Protein NT-Pro-B Natriuret Pep Albumin HDL Cholesterol Arterial Blood Glucose 110 H Urine WBC (Auto) Urine Creatinine Salicylates Acetaminophen Chest x-ray: pending Allied health notes reviewed: nursing
--- NOTE | 2021-05-31 14:41 | Progress Note ---
<ENOCLEFTY BecerraAntony - Last Filed: 05/31/21 14:35> Assessment and Plan Assessment and plan: This is a 41-year-old male with acute hypoxic respiratory failure, elevated D- dimer, acute kidney injury, hyperkalemia and transaminitis Neuro: Acute metabolic encephalopathy -CT head and C-spine negative for acute process -TSH WNL -Patient is sedated with propofol and fentanyl -Goal RASS 0 to -1 -Avoid delirium -Reorientation as needed -Maintain sleep-wake cycle Cardio: Hypotension, possible CHF, h/o HTN -Cardiology consulted, appreciate recommendations -S/p Levophed -echocardiogram showed mild to moderate dilated right heart chambers, LVEF 55% -Cardiology recommends conservative cardiac management -Patient currently not hypertensive -No home antihypertensive regimen found on home med list -Blood pressure monitoring per protocol -As needed hydralazine Respiratory: Acute possibly on chronic hypoxemic and hypercapnic respiratory failure, ARDS, h/o sleep apnea -CCM/pulmonary consulted, appreciate recommendations -Patient intubated on 05/23 for airway protection in the ED -Intubated with 7.50 ETT at 24 the lips -pm ABG noted -A.m. vent settings: Assist control tidal volume 450, rate 25, peep 14, 60% FiO2 -PEEP and FiO2 decreased -PM Abg -See RT notes for titration -VAP bundle GI: Transaminitis, morbid obesity -NTR consult for tube feedings -Tube feedings Nepro at 45 mL's per hour -Free water flush 100 mL/4hr -24-hour +1812 -Presented with elevated LFTs which are now improving -Trend LFTs : Acute renal failure secondary to vasomotor nephropathy -Nephrology consulted, appreciate recommendations -Garcia catheter for strict intake and output -Avoid nephrotoxic medications -Renally dose medications -Renal calculated at 0.41% indicating prerenal -Patient admitted with volume overload (proBNP [id number]) -IVF for 2 liters ID: CAP, leukopenia, coag negative Staphylococcus in blood culture 07/26, MRSA nasal swab (+) -CT C-spine showed right upper lobe pneumonia -Antibiotic therapy with cefepime and azithromycin -Monitor fever and WBC curve -05/23 UC, tracheal aspirate no growth to date -05/23 blood culture with coag negative staph in 1 of 2 bottles Endo: NAD -Accu-Cheks every 6 while on tube feedings -No indication for SSI at this time -Avoid hypoglycemia -Target blood glucose while critically ill less than 180 Heme: Elevated D-dimer, h/o PE/DVT -VQ scan unable to be performed due to patient being intubated -CTA head unable to be performed due to renal function and size -restarted on home eliquis -SCDs to bilateral lower extremity while in bed -Echocardiogram shows no right heart strain -Trend CBC -Transfuse for hemoglobin less than 7 -Bilateral lower extremity Doppler ultrasound negative for DVT The high probability of a clinically significant, sudden or life threatening deterioration of the [renal/pulm] system(s) required my full and direct attention, intervention and personal management. The aggregate critical care time was [60] minutes. This time is in addition to time spent performing reported procedures but includes the following: [x] Data Review and interpretation [x] Patient assessment and monitoring of vital signs [x] Documentation [x] Medication orders and management Disposition Plan: icu Total Time Spent with Patient (Minutes): 60 History Interval history: This is a 41-year-old male who has HTN, REVA and morbid obesity who presents to the emergency department on 05/23 via EMS for severe respiratory distress. Upon EMS arrival patient was found to be altered and sedated from bed to floor and reports noncompliant with CPAP/BiPAP. Patient received bag valve mask ventilation via nasal trumpet with EMS on route. Work-up in the emergency dep artment included a CXR which showed [place] [address], elevated troponin at 0.038, elevated D-dimer, acute kidney injury, hyperkalemia and transaminitis. Patient was intubated in the emergency department for for airway protection as he was reported to be obtunded and without a gag reflex. Patient did receive Narcan in the field by EMS however there was no reported affect. Hospital course to date: 05/24/2021: Patient intubated and sedated. VQ scan ordered secondary to elevated D-dimer. Cardiology consulted secondary to elevated troponin and elevated BNP. Echocardiogram ordered and pending. 05/25/2021: Patient still intubated. Responsive to commands. Hypotensive, norepinephrine increased to 15mcg. Unable to get V/Q scan due to body habitus. 05/26: Overnight patient experienced desaturation to the 80s and FiO2 was increased. This morning on ABG patient exhibited hypoxemia and FiO2 was unchanged. [facility] later increased PEEP and decrease FiO2. Nephrology was c onsulted due to no recovery in renal function noted. Urine lites were ordered. Hyperkalemia treated medically. 05/27: Patient remains sedated on fentanyl and propofol, [facility] will taper Solu- Medrol and repeat ABG in 1899. Patient received 40 mg of Lasix x1. Slight improvement to renal function noted 05/28: [facility] has started revatio for pulmonary hypertension, we will repeat Lasix today as patient had improvement in renal function. No acute events reported overnight. 05/29: 1900 ABG with improved hypoxia, good UOP noted from lasix. Repeat labs for am. no acute events reported overnight 05/30: FWF decreased. Garcia catheter replaced due to sediment. Family updated today at bedside. 05/31: noted to have persistent tachycardia, given fent bolus without improvement. EKG showed ST, passive leg raise by RN showed decrease in tachycardia therefore given LR. Noted increase in Cr today. MIVF for 2 liters started by [facility]. Hospitalist Physical - Constitutional Vitals: Temp Pulse Resp BP Pulse Ox 99.3 F 123 H 21 110/61 97 05/31/21 12:00 05/31/21 14:00 05/31/21 14:00 05/31/21 14:00 05/31/21 14:00 General appearance: Present: no acute distress, other (Intubated) - EENT Eyes: Present: PERRL, EOM intact ENT: hearing intact, clear oral mucosa, dentition normal - Neck Neck: Present: normal ROM - Respiratory Respiratory effort: normal - Cardiovascular Rhythm: regular Heart Sounds: Present: S1 & S2. Absent: systolic murmur, diastolic murmur - Extremities Extremities: no ischemia, pulses intact, pulses symmetrical, No edema, normal t emperature, normal color Peripheral Pulses: within normal limits - Abdominal General gastrointestinal: soft, non-tender, non-distended, normal bowel sounds - Integumentary Integumentary: Present: warm, dry - Psychiatric Psychiatric: cooperative - Neurologic Neurologic: no focal deficits, moves all extremities - Allied Health Allied health notes reviewed: nursing, RT, social work HEART Score - HEART Score Troponin: Troponin T 0.038 ng/mL (0.00-0.029) H 05/23/21 15:09 Results - Labs CBC & Chem 7: 05/31/21 05:16 05/31/21 05:16 Labs: Laboratory Last Values WBC 10.9 K/mm3 (4.5-11.0) 05/31/21 05:16 RBC 3.78 M/mm3 (3.65-5.03) 05/31/21 05:16 Hgb 11.1 gm/dl (11.8-15.2) L 05/31/21 05:16 Hct 35.6 % (35.5-45.6) 05/31/21 05:16 MCV 94 fl (84-94) 05/31/21 05:16 MCH 29 pg (28-32) 05/31/21 05:16 MCHC 31 % (32-34) L 05/31/21 05:16 RDW 20.8 % (13.2-15.2) H 05/31/21 05:16 Plt Count 116 K/mm3 (140-440) L 05/31/21 05:16 Lymph % (Auto) 5.9 % (13.4-35.0) L 05/23/21 15:09 Morton % (Auto) 6.1 % (0.0-7.3) 05/23/21 15:09 Eos % (Auto) 0.2 % (0.0-4.3) 05/23/21 15:09 Baso % (Auto) 0.3 % (0.0-1.8) 05/23/21 15:09 Lymph # (Auto) 0.6 K/mm3 (1.2-5.4) L 05/23/21 15:09 Morton # (Auto) 0.6 K/mm3 (0.0-0.8) 05/23/21 15:09 Eos # (Auto) 0.0 K/mm3 (0.0-0.4) 05/23/21 15:09 Baso # (Auto) 0.0 K/mm3 (0.0-0.1) 05/23/21 15:09 Add Manual Diff Complete 05/24/21 04:55 Total Counted 100 05/24/21 04:55 Seg Neutrophils % Machinery Rigger 05/24/21 04:55 Seg Neuts % (Manual) 97.0 % (40.0-70.0) H 05/24/21 04:55 Lymphocytes % (Manual) 3.0 % (13.4-35.0) L 05/24/21 04:55 Nucleated RBC % Not Reportable 05/24/21 04:55 Seg Neutrophils # 8.2 K/mm3 (1.8-7.7) H 05/23/21 15:09 Seg Neutrophils # Man 8.4 K/mm3 (1.8-7.7) H 05/24/21 04:55 Band Neutrophils # 0.0 K/mm3 05/24/21 04:55 Lymphocytes # (Manual) 0.3 K/mm3 (1.2-5.4) L 05/24/21 04:55 Abs React Lymphs (Man) 0.0 K/mm3 05/24/21 04:55 Monocytes # (Manual) 0.0 K/mm3 (0.0-0.8) 05/24/21 04:55 Eosinophils # (Manual) 0.0 K/mm3 (0.0-0.4) 05/24/21 04:55 Basophils # (Manual) 0.0 K/mm3 (0.0-0.1) 05/24/21 04:55 Metamyelocytes # 0.0 K/mm3 05/24/21 04:55 Myelocytes # 0.0 K/mm3 05/24/21 04:55 Promyelocytes # 0.0 K/mm3 05/24/21 04:55 Blast Cells # 0.0 K/mm3 05/24/21 04:55 WBC Morphology Not Reportable 05/24/21 04:55 Hypersegmented Neuts Not Reportable 05/24/21 04:55 Hyposegmented Neuts Not Reportable 05/24/21 04:55 Hypogranular Neuts Not Reportable 05/24/21 04:55 Smudge Cells Not Reportable 05/24/21 04:55 Toxic Granulation Not Reportable 05/24/21 04:55 Toxic Vacuolation Not Reportable 05/24/21 04:55 Dohle Bodies Not Reportable 05/24/21 04:55 Pelger-Huet Anomaly Not Reportable 05/24/21 04:55 Cynthia Rods Not Reportable 05/24/21 04:55 Platelet Estimate Consistent w auto 05/24/21 04:55 Clumped Platelets Not Reportable 05/24/21 04:55 Plt Clumps, EDTA Not Reportable 05/24/21 04:55 Large Platelets Not Reportable 05/24/21 04:55 Giant Platelets Not Reportable 05/24/21 04:55 Platelet Satelliting Not Reportable 05/24/21 04:55 Plt Morphology Comment Not Reportable 05/24/21 04:55 RBC Morphology Not Reportable 05/24/21 04:55 Dimorphic RBCs Not Reportable 05/24/21 04:55 Polychromasia Not Reportable 05/24/21 04:55 Hypochromasia Not Reportable 05/24/21 04:55 Poikilocytosis Not Reportable 05/24/21 04:55 Anisocytosis 1+ 05/24/21 04:55 Microcytosis Not Reportable 05/24/21 04:55 Macrocytosis Not Reportable 05/24/21 04:55 Spherocytes Not Reportable 05/24/21 04:55 Pappenheimer Bodies Not Reportable 05/24/21 04:55 Sickle Cells Not Reportable 05/24/21 04:55 Target Cells Not Reportable 05/24/21 04:55 Tear Drop Cells Not Reportable 05/24/21 04:55 Ovalocytes Not Reportable 05/24/21 04:55 Helmet Cells Not Reportable 05/24/21 04:55 [place] Bodies Not Reportable 05/24/21 04:55 [place] Rings Not Reportable 05/24/21 04:55 Luis Cells Not Reportable 05/24/21 04:55 Bite Cells Not Reportable 05/24/21 04:55 Crenated Cell Not Reportable 05/24/21 04:55 Elliptocytes Not Reportable 05/24/21 04:55 Acanthocytes (Spur) Not Reportable 05/24/21 04:55 Rouleaux Not Reportable 05/24/21 04:55 Hemoglobin C Crystals Not Reportable 05/24/21 04:55 Schistocytes Not Reportable 05/24/21 04:55 Malaria parasites Not Reportable 05/24/21 04:55 Uli Bodies Not Reportable 05/24/21 04:55 Hem Pathologist Commnt No 05/24/21 04:55 PT 15.3 Sec. (12.2-14.9) H 05/29/21 13:40 INR 1.09 (0.87-1.13) 05/29/21 13:40 APTT 25.7 Sec. (24.2-36.6) 05/29/21 13:40 D-Dimer 4444.85 ng/mlDDU (0-234) H 05/23/21 15:09 ABG pH 7.348 (7.320-7.450) 05/31/21 Unknown POC ABG pCO2 48.4 mmHg (32.0-48.0) H 05/31/21 Unknown ABG pCO2 48.1 mm Hg 05/30/21 09: POC ABG pO2 63.0 mmHg (83-108) L 05/31/21 Unknown ABG pO2 107.0 mm Hg (80.0-90.0) H 05/30/21 09: POC ABG HCO3 26.0 05/31/21 Unknown ABG HCO3 24.4 mmol/L (20.0-26.0) 05/30/21 09: ABG O2 Saturation 92.3 (0-100) 05/31/21 Unknown ABG O2 Content 16.8 (0.0-44) 05/30/21 09:22 POC ABG Base Excess -0.1 05/31/21 Unknown ABG Base Excess -1.9 mmol/L (-2.0-3.0) 05/30/21 09: ABG Hemoglobin 11.9 (12.0-17.5) L 05/31/21 Unknown ABG Oxyhemoglobin 91.4 (94-98) L 05/31/21 Unknown ABG Carboxyhemoglobin 1.7 % (0.0-5.0) 05/30/21 09: ABG Methemoglobin 0.2 (0.0-1.5) 05/31/21 Unknown ABG Sodium 137.6 mmol/L (136.0-145.0) 05/31/21 Unknown ABG Potassium 4.6 mmol/L (3.40-4.50) H 05/31/21 Unknown ABG Chloride 107.0 mmol/L (98-107) 05/31/21 Unknown ABG Glucose 110 mg/dL (65-95) H 05/31/21 Unknown Oxyhemoglobin 95.5 % (95.0-99.0) 05/30/21 09:22 Carboxyhemoglobin 0.7 (0.5-1.5) 05/31/21 Unknown FiO2 65 % 05/30/21 09:22 FiO2 % 60 05/31/21 Unknown Sodium 140 mmol/L (137-145) 05/31/21 05:16 Potassium 4.8 mmol/L (3.6-5.0) 05/31/21 05:16 Chloride 105.5 mmol/L (98-107) 05/31/21 05:16 Carbon Dioxide 25 mmol/L (22-30) 05/31/21 05:16 Anion Gap 14 mmol/L 05/31/21 05:16 BUN 62 mg/dL (9-20) H 05/31/21 05:16 Creatinine 1.9 mg/dL (0.8-1.3) H 05/31/21 05:16 Estimated GFR 47 ml/min 05/31/21 05:16 BUN/Creatinine Ratio 33 % 05/31/21 05:16 Glucose 103 mg/dL (75-100) H 05/31/21 05:16 POC Glucose 105 mg/dL (70-105) 05/31/21 11:22 Lactic Acid 1.50 mmol/L (0.7-2.0) 05/23/21 15:09 Calcium 8.9 mg/dL (8.4-10.2) 05/31/21 05:16 Phosphorus 2.90 mg/dL (2.5-4.5) 05/28/21 05:30 Magnesium 2.40 mg/dL (1.7-2.3) H 05/28/21 05:30 Total Bilirubin 0.60 mg/dL (0.1-1.2) 05/26/21 Unknown AST 64 units/L (5-40) H 05/26/21 Unknown ALT 448 units/L (7-56) H 05/26/21 Unknown Alkaline Phosphatase 58 units/L (35-129) 05/26/21 Unknown Ammonia 30.0 umol/L (25-60) 05/24/21 04:55 Total Creatine Kinase 48 units/L (55-170) L 05/23/21 15:09 Troponin T 0.038 ng/mL (0.00-0.029) H 05/23/21 15:09 C-Reactive Protein 10.00 mg/dL (0.00-1.30) H 05/23/21 19:10 NT-Pro-B Natriuret Pep 55338 pg/mL (0-450) H 05/23/21 15:09 Total Protein 7.0 g/dL (6.3-8.2) 05/26/21 Unknown Albumin 3.4 g/dL (3.9-5) L 05/26/21 Unknown Albumin/Globulin Ratio 0.9 % 05/26/21 Unknown Triglycerides 94 mg/dL (2-149) 05/30/21 07:47 Cholesterol 106 mg/dL (50-199) 05/23/21 15:09 LDL Cholesterol Direct 58 mg/dL (50-130) 05/23/21 15:09 HDL Cholesterol 29 mg/dL (40-59) L 05/23/21 15:09 Cholesterol/HDL Ratio 3.65 % 05/23/21 15:09 Procalcitonin 0.83 ng/mL (<0.15) 05/23/21 15:09 TSH 2.380 mlU/mL (0.270-4.200) 05/23/21 15:09 Arterial Blood Glucose 110 mg/dL (65-95) H 05/31/21 Unknown Arterial Blood Ionized Calcium 4.9 mg/dL (4.6-5.3) 05/31/21 Unknown Urine Color [place] (Yellow) 05/23/21 Unknown Urine Turbidity Slightly-cloudy (Clear) 05/23/21 Unknown Urine pH 5.0 (5.0-7.0) 05/23/21 Unknown Ur Specific [place] 1.014 (1.003-1.030) 05/23/21 Unknown Urine Protein 30 mg/dl mg/dL (Negative) 05/23/21 Unknown Urine Glucose (UA) Neg mg/dL (Negative) 05/23/21 Unknown Urine Ketones Neg mg/dL (Negative) 05/23/21 Unknown Urine Blood Mod (Negative) 05/23/21 Unknown Urine Nitrite Neg (Negative) 05/23/21 Unknown Urine Bilirubin Neg (Negative) 05/23/21 Unknown Urine Urobilinogen 4.0 mg/dL (<2.0) 05/23/21 Unknown Ur Leukocyte Esterase Tr (Negative) 05/23/21 Unknown Urine WBC (Auto) 34.0 /HPF (0.0-6.0) H 05/23/21 Unknown Urine RBC (Auto) 20.0 /HPF (0.0-6.0) 05/23/21 Unknown U Epithel Cells (Auto) 2.0 /HPF (0-13.0) 05/23/21 Unknown Urine Bacteria (Auto) 1+ /HPF (Negative) 05/23/21 Unknown Urine Mucus Few /HPF 05/23/21 Unknown Urine Osmolality 612 Mosm/kg 05/26/21 Unknown Urine Creatinine 128.6 mg/dL (0.1-20.0) H 05/26/21 Unknown Urine Sodium 37 mmol/L 05/26/21 Unknown Urine Potassium 45.15 mmol/L 05/26/21 Unknown Urine Urea Nitrogen 989 05/26/21 Unknown Nasal Screen MRSA (PCR) Positive (Negative) 05/30/21 12:00 Salicylates < 0.3 mg/dL (2.8-20.0) L 05/23/21 15:09 Urine Opiates Screen Negative 05/23/21 Unknown Urine Methadone Screen Negative 05/23/21 Unknown Acetaminophen 5.0 ug/mL (10.0-30.0) L 05/23/21 15:09 Ur Barbiturates Screen Negative 05/23/21 Unknown Ur Phencyclidine Scrn Negative 05/23/21 Unknown Ur Amphetamines Screen Negative 05/23/21 Unknown U Benzodiazepines Scrn Negative 05/23/21 Unknown Urine Cocaine Screen Negative 05/23/21 Unknown U Marijuana (THC) Screen Negative 05/23/21 Unknown Drugs of Abuse Note Disclamer 05/23/21 Unknown Plasma/Serum Alcohol < 0.01 % (0-0.07) 05/23/21 15:09 Coronavirus (PCR) Negative (Negative) 05/23/21 Unknown Blood Type O POSITIVE 05/23/21 15:01 Antibody Screen Negative 05/23/21 15:01 Garcia/IV: Voiding Method Indwelling Catheter Active Medications - Current Medications Current Medications: Generic Name Dose Route Start Last Admin Trade Name Freq PRN Reason Stop Dose Admin Acetaminophen 650 mg 05/23/21 20:42 Acetaminophen 325 Mg Tab PO Q4H PRN Pain MILD(1-3)/Fever >100.5/CASTORENA Albuterol 2.5 mg 05/23/21 21:11 Albuterol 2.5 Mg/3 Ml Nebu IH Q4HRT PRN Shortness Of Breath Albuterol/Ipratropium 1 ampul 05/29/21 08:00 05/31/21 13:32 Ipratropium/Albuterol Sulfate 3 Ml Ampul.Neb IH 1 ampul TIDRT ROSEMARIE Administration Lipase/Protease/Amylase 1 each 05/24/21 10:14 Lipase 10,500/Protease 25,000/Amylase 43,750 (Units) Dr Cap FEEDTUBE PRN PRN For Clogged Feeding Tube Apixaban 2.5 mg 05/29/21 13:00 05/31/21 09:16 Apixaban 2.5 Mg Tab PO 2.5 mg Q12HR ROSEMARIE Administration Protocol Famotidine 20 mg 05/27/21 10:00 05/31/21 09:16 Famotidine 20 Mg Tab FEEDTUBE 20 mg BID ROSEMARIE Administration Fentanyl 50 mcg 05/23/21 12:34 05/31/21 10:20 Fentanyl 100 Mcg/2 Ml Inj IV 50 mcg Q10MIN PRN Administration ANALGESIA Hydrophilic Ointment 1 applic 05/23/21 12:34 Lip Therapy Vaseline TP Q2HR PRN Dry Lips Fentanyl Citrate 2,000 mcg in 100 mls @ 8.528 mls/hr 05/23/21 13:00 05/31/21 12:32 Fentanyl Drip Premix IV 3 mcg/kg/hr TITR ROSEMARIE 25.583 mls/hr Administration Protocol 1 MCG/KG/HR NORepinephrine/NS 8 MG-250 ML 8 mg in 250 mls @ 3.75 mls/hr 05/24/21 20:00 05/25/21 15:20 Norepinephrine/Ns 8 Mg-250 Ml (Double Conc) IV 0 mcg/min TITRATE ROSEMARIE 0 mls/hr Titration Protocol 2 MCG/MIN Propofol 1,000 mg in 100 mls @ 5.117 mls/hr 05/25/21 19:00 05/31/21 09:37 Diprivan 10 Mg/Ml IV 5 mcg/kg/min TITR ROSEMARIE 5.117 mls/hr Administration Protocol 5 MCG/KG/MIN Lactated Ringer's 250 mls @ 999 mls/hr 05/31/21 11:00 05/31/21 12:34 Lactated Ringers IV 999 mls/hr DIRECT ROSEMARIE Administration Sodium Chloride 1,000 mls @ 75 mls/hr 05/31/21 14:30 Nacl 0.9% 1000 Ml IV 06/02/21 03:49 DIRECT ROSEMARIE Multi-Ingred Cream/Lotion/Oil/Oint 1 applic 05/23/21 12:34 05/30/21 22:14 Mineral Oil/Petrolatum, White Ophth Oint 3.5 Gm OU 1 applic Q4HR PRN Administration Dry Eye(s) Ondansetron HCl 4 mg 05/23/21 20:42 Ondansetron 4 Mg/2 Ml Inj IV Q8H PRN Nausea And Vomiting Senna/Docusate Sodium 1 tab 05/23/21 22:00 05/31/21 09:16 Sennosides/Docusate Sodium 8.6/50 Mg Tab FEEDTUBE 1 tab BID ROSEMARIE Administration Sildenafil Citrate 20 mg 05/28/21 20:00 05/31/21 09:15 Sildenafil 20 Mg Tab PO Not Given TID ROSEMARIE Simple Syrup 15 ml 05/24/21 10:14 Simple Syrup 15 Ml FEEDTUBE PRN PRN Hypoglycemia Simple Syrup 30 ml 05/24/21 10:14 Simple Syrup 15 Ml FEEDTUBE PRN PRN Hypoglycemia Sodium Bicarbonate 325 mg 05/24/21 10:14 Sodium Bicarbonate 325 Mg Tab FEEDTUBE PRN PRN For Clogged Feeding Tube Sodium Chloride 10 ml 05/23/21 22:00 05/31/21 09:39 Sodium Chloride 0.9% 10 Ml Flush Syringe IV 10 ml BID ROSEMARIE Administration Sodium Chloride 10 ml 05/23/21 20:42 Sodium Chloride 0.9% 10 Ml Flush Syringe IV PRN PRN LINE FLUSH Nutrition/Malnutrition Assess - Dietary Evaluation Nutrition/Malnutrition Findings: Nutrition Notes Start: 05/24/21 09:53 Freq: Status: Active Protocol: Document 05/28/21 14:30 GB (Rec: 05/28/21 14:44 GB [email or web address]) Nutrition Notes Initial or Follow up Reassessment Current Diagnosis Acute Kidney Injury, Hypertension,Respiratory Failure Other Pertinent Diagnosis SIRS, encephalopathy, pneu, transaminitis Current Diet NPO, Tube Feeding Nepro @ 45m/ hr Labs/Tests 05/28: BUN 53, Creatinine 1.6, glucose 118, Ca 8, Mg 2.4 Pertinent Medications Fentanyl Citrate, Norepenephrin/NS 8 Mg 250, Propofol 30.699 ml/hr (810kcal ) Height 5 ft 8 in Weight 170.551 kg [place] Body Weight (kg) 70.00 BMI 57.2 Weight change and time frame No new weights recorded at time of assessment Weight Status Morbidly Obese Subjective/Other Information Pt continues Intubated/sedated 05/28: Chest Xray note: tubes in satisfactory position, No significant changes 05/28: MD note unresponsive on vent BM: no record at time of assessment Percent of energy/protein needs met: TF at goal meets 75% or greater of minimal estimated energy needs Burn Absent Trauma Absent GI Symptoms Other Difficulty In Swallowing Food Allergy No Skin Integrity/Comment wound to left toe Current % PO Other Minimum of two criteria No #1 Nutrition Diagnosis Swallowing difficulty Comments: 05/25: intubation/sedation continues. TF started 05/28: intubation/sedation continues. TF Nepro @ goal 45ml/hr Etiology ARF As Evidenced by Signs and Symptoms Intubated/sedated Diagnosis Progress(for reassessment Continues documentation) Is patient on ventilator? Yes Is Patient Ambulatory and/or Out of Bed No REE-([facility]-confined to bed) 3092.088 Kcal/Kg value to use for calculation 12 Approximate Energy Requirements Using 2047 kcal/Kg Calculation Used for Recommendations Kcal/kg Additional Notes Protein: 0.6g/kg or greater @ 170kg Fluid: 1 ml/kcal or per MD Nutrition Intervention Change Diet Order: Continue NPO, Tube feeding Nutrition Support: Nepro 1.8 at 45 ml/hr Flush 175 ml q4h or per MD Total free water: TF@goal + flush = 1835ml Kcal 1,950 Protein (gm) 88 Carbohydrates (gm) 174 Fat (gm) 104 Fluid (mL) 788 Fiber (gm) 14 % RDI: 100%kcal / 86%pro Goal #1 Meet at least 75% or greater of EEN via TF 05/25: met, continues 05/28: met, continues Goal #2 TF (Nepro) at goal rate (45ml/ hr) by f/u 05/25: TF started 05/28: TF at goal. met, continues Follow-Up By: 06/02/21 Additional Comments F/u: TF tolerance, renal labs, vent status <TATO BUENO - Last Filed: 06/01/21 07:25> Assessment and Plan Assessment and plan: I saw and evaluated the patient. Discussed with the nurse practitioner and agree with their findings and plan as documented in this note. Hospitalist Physical - Constitutional Vitals: Temp Pulse Resp BP Pulse Ox 100.8 F H 149 H 25 H 121/75 93 06/01/21 03:42 06/01/21 07:00 06/01/21 07:00 06/01/21 07:00 06/01/21 07:00 HEART Score - HEART Score Troponin: Troponin T 0.038 ng/mL (0.00-0.029) H 05/23/21 15:09 Results - Labs CBC & Chem 7: 06/01/21 07:00 05/31/21 05:16 Labs: Laboratory Last Values WBC 10.8 K/mm3 (4.5-11.0) 06/01/21 07:00 RBC 3.80 M/mm3 (3.65-5.03) 06/01/21 07:00 Hgb 11.2 gm/dl (11.8-15.2) L 06/01/21 07:00 Hct 36.4 % (35.5-45.6) 06/01/21 07:00 MCV 96 fl (84-94) H 06/01/21 07:00 MCH 30 pg (28-32) 06/01/21 07:00 MCHC 31 % (32-34) L 06/01/21 07:00 RDW 20.6 % (13.2-15.2) H 06/01/21 07:00 Plt Count 152 K/mm3 (140-440) 06/01/21 07:00 Lymph % (Auto) 5.9 % (13.4-35.0) L 05/23/21 15:09 [place] % (Auto) 6.1 % (0.0-7.3) 05/23/21 15:09 Eos % (Auto) 0.2 % (0.0-4.3) 05/23/21 15:09 Baso % (Auto) 0.3 % (0.0-1.8) 05/23/21 15:09 Lymph # (Auto) 0.6 K/mm3 (1.2-5.4) L 05/23/21 15:09 [place] # (Auto) 0.6 K/mm3 (0.0-0.8) 05/23/21 15:09 Eos # (Auto) 0.0 K/mm3 (0.0-0.4) 05/23/21 15:09 Baso # (Auto) 0.0 K/mm3 (0.0-0.1) 05/23/21 15:09 Add Manual Diff Complete 05/24/21 04:55 Total Counted 100 05/24/21 04:55 Seg Neutrophils % Machinery Rigger 05/24/21 04:55 Seg Neuts % (Manual) 97.0 % (40.0-70.0) H 05/24/21 04:55 Lymphocytes % (Manual) 3.0 % (13.4-35.0) L 05/24/21 04:55 Nucleated RBC % Not Reportable 05/24/21 04:55 Seg Neutrophils # 8.2 K/mm3 (1.8-7.7) H 05/23/21 15:09 Seg Neutrophils # Man 8.4 K/mm3 (1.8-7.7) H 05/24/21 04:55 Band Neutrophils # 0.0 K/mm3 05/24/21 04:55 Lymphocytes # (Manual) 0.3 K/mm3 (1.2-5.4) L 05/24/21 04:55 Abs React Lymphs (Man) 0.0 K/mm3 05/24/21 04:55 Monocytes # (Manual) 0.0 K/mm3 (0.0-0.8) 05/24/21 04:55 Eosinophils # (Manual) 0.0 K/mm3 (0.0-0.4) 05/24/21 04:55 Basophils # (Manual) 0.0 K/mm3 (0.0-0.1) 05/24/21 04:55 Metamyelocytes # 0.0 K/mm3 05/24/21 04:55 Myelocytes # 0.0 K/mm3 05/24/21 04:55 Promyelocytes # 0.0 K/mm3 05/24/21 04:55 Blast Cells # 0.0 K/mm3 05/24/21 04:55 WBC Morphology Not Reportable 05/24/21 04:55 Hypersegmented Neuts Not Reportable 05/24/21 04:55 Hyposegmented Neuts Not Reportable 05/24/21 04:55 Hypogranular Neuts Not Reportable 05/24/21 04:55 Smudge Cells Not Reportable 05/24/21 04:55 Toxic Granulation Not Reportable 05/24/21 04:55 Toxic Vacuolation Not Reportable 05/24/21 04:55 Dohle Bodies Not Reportable 05/24/21 04:55 Pelger-Huet Anomaly Not Reportable 05/24/21 04:55 Cynthia Rods Not Reportable 05/24/21 04:55 Platelet Estimate Consistent w auto 05/24/21 04:55 Clumped Platelets Not Reportable 05/24/21 04:55 Plt Clumps, EDTA Not Reportable 05/24/21 04:55 Large Platelets Not Reportable 05/24/21 04:55 Giant Platelets Not Reportable 05/24/21 04:55 Platelet Satelliting Not Reportable 05/24/21 04:55 Plt Morphology Comment Not Reportable 05/24/21 04:55 RBC Morphology Not Reportable 05/24/21 04:55 Dimorphic RBCs Not Reportable 05/24/21 04:55 Polychromasia Not Reportable 05/24/21 04:55 Hypochromasia Not Reportable 05/24/21 04:55 Poikilocytosis Not Reportable 05/24/21 04:55 Anisocytosis 1+ 05/24/21 04:55 Microcytosis Not Reportable 05/24/21 04:55 Macrocytosis Not Reportable 05/24/21 04:55 Spherocytes Not Reportable 05/24/21 04:55 Pappenheimer Bodies Not Reportable 05/24/21 04:55 Sickle Cells Not Reportable 05/24/21 04:55 Target Cells Not Reportable 05/24/21 04:55 Tear Drop Cells Not Reportable 05/24/21 04:55 Ovalocytes Not Reportable 05/24/21 04:55 Helmet Cells Not Reportable 05/24/21 04:55 [place] Bodies Not Reportable 05/24/21 04:55 [place] Rings Not Reportable 05/24/21 04:55 Luis Cells Not Reportable 05/24/21 04:55 Bite Cells Not Reportable 05/24/21 04:55 Crenated Cell Not Reportable 05/24/21 04:55 Elliptocytes Not Reportable 05/24/21 04:55 Acanthocytes (Spur) Not Reportable 05/24/21 04:55 Rouleaux Not Reportable 05/24/21 04:55 Hemoglobin C Crystals Not Reportable 05/24/21 04:55 Schistocytes Not Reportable 05/24/21 04:55 Malaria parasites Not Reportable 05/24/21 04:55 Uli Bodies Not Reportable 05/24/21 04:55 Hem Pathologist Commnt No 05/24/21 04:55 PT 15.3 Sec. (12.2-14.9) H 05/29/21 13:40 INR 1.09 (0.87-1.13) 05/29/21 13:40 APTT 25.7 Sec. (24.2-36.6) 05/29/21 13:40 D-Dimer 4444.85 ng/mlDDU (0-234) H 05/23/21 15:09 ABG pH 7.351 (7.320-7.450) 06/01/21 03:06 POC ABG pCO2 46.5 mmHg (32.0-48.0) 06/01/21 03:06 ABG pCO2 48.1 mm Hg 05/30/21 09:22 POC ABG pO2 55.0 mmHg (83-108) L 06/01/21 03:06 ABG pO2 107.0 mm Hg (80.0-90.0) H 05/30/21 09:22 POC ABG HCO3 25.2 06/01/21 03:06 ABG HCO3 24.4 mmol/L (20.0-26.0) 05/30/21 09:22 ABG O2 Saturation 88.5 (0-100) 06/01/21 03:06 ABG O2 Content 16.8 (0.0-44) 05/30/21 09:22 POC ABG Base Excess -0.7 06/01/21 03:06 ABG Base Excess -1.9 mmol/L (-2.0-3.0) 05/30/21 09:22 ABG Hemoglobin 10.9 (12.0-17.5) L 06/01/21 03:06 ABG Oxyhemoglobin 87.5 (94-98) L 06/01/21 03:06 ABG Carboxyhemoglobin 1.7 % (0.0-5.0) 05/30/21 09:22 ABG Methemoglobin 0.3 (0.0-1.5) 06/01/21 03:06 ABG Sodium 127.4 mmol/L (136.0-145.0) L 06/01/21 03:06 ABG Potassium 4.6 mmol/L (3.40-4.50) H 06/01/21 03:06 ABG Chloride 108.0 mmol/L (98-107) H 06/01/21 03:06 ABG Glucose 108 mg/dL (65-95) H 06/01/21 03:06 Oxyhemoglobin 95.5 % (95.0-99.0) 05/30/21 09:22 Carboxyhemoglobin 0.8 (0.5-1.5) 06/01/21 03:06 FiO2 65 % 05/30/21 09:22 FiO2 % 60.0 06/01/21 03:06 Sodium 140 mmol/L (137-145) 05/31/21 05:16 Potassium 4.8 mmol/L (3.6-5.0) 05/31/21 05:16 Chloride 105.5 mmol/L (98-107) 05/31/21 05:16 Carbon Dioxide 25 mmol/L (22-30) 05/31/21 05:16 Anion Gap 14 mmol/L 05/31/21 05:16 BUN 62 mg/dL (9-20) H 05/31/21 05:16 Creatinine 1.9 mg/dL (0.8-1.3) H 05/31/21 05:16 Estimated GFR 47 ml/min 05/31/21 05:16 BUN/Creatinine Ratio 33 % 05/31/21 05:16 Glucose 103 mg/dL (75-100) H 05/31/21 05:16 POC Glucose 100 mg/dL (70-105) 06/01/21 05:18 Lactic Acid 1.50 mmol/L (0.7-2.0) 05/23/21 15:09 Calcium 8.9 mg/dL (8.4-10.2) 05/31/21 05:16 Phosphorus 2.90 mg/dL (2.5-4.5) 05/28/21 05:30 Magnesium 2.40 mg/dL (1.7-2.3) H 05/28/21 05:30 Total Bilirubin 0.60 mg/dL (0.1-1.2) 05/26/21 Unknown AST 64 units/L (5-40) H 05/26/21 Unknown ALT 448 units/L (7-56) H 05/26/21 Unknown Alkaline Phosphatase 58 units/L (35-129) 05/26/21 Unknown Ammonia 30.0 umol/L (25-60) 05/24/21 04:55 Total Creatine Kinase 48 units/L (55-170) L 05/23/21 15:09 Troponin T 0.038 ng/mL (0.00-0.029) H 05/23/21 15:09 C-Reactive Protein 10.00 mg/dL (0.00-1.30) H 05/23/21 19:10 NT-Pro-B Natriuret Pep 70804 pg/mL (0-450) H 05/23/21 15:09 Total Protein 7.0 g/dL (6.3-8.2) 05/26/21 Unknown Albumin 3.4 g/dL (3.9-5) L 05/26/21 Unknown Albumin/Globulin Ratio 0.9 % 05/26/21 Unknown Triglycerides 94 mg/dL (2-149) 05/30/21 07:47 Cholesterol 106 mg/dL (50-199) 05/23/21 15:09 LDL Cholesterol Direct 58 mg/dL (50-130) 05/23/21 15:09 HDL Cholesterol 29 mg/dL (40-59) L 05/23/21 15:09 Cholesterol/HDL Ratio 3.65 % 05/23/21 15:09 Procalcitonin 0.83 ng/mL (<0.15) 05/23/21 15:09 TSH 2.380 mlU/mL (0.270-4.200) 05/23/21 15:09 Arterial Blood Glucose 108 mg/dL (65-95) H 06/01/21 03:06 Arterial Blood Ionized Calcium 4.9 mg/dL (4.6-5.3) 05/31/21 Unknown Urine Color [place] (Yellow) 05/23/21 Unknown Urine Turbidity Slightly-cloudy (Clear) 05/23/21 Unknown Urine pH 5.0 (5.0-7.0) 05/23/21 Unknown Ur Specific [place] 1.014 (1.003-1.030) 05/23/21 Unknown Urine Protein 30 mg/dl mg/dL (Negative) 05/23/21 Unknown Urine Glucose (UA) Neg mg/dL (Negative) 05/23/21 Unknown Urine Ketones Neg mg/dL (Negative) 05/23/21 Unknown Urine Blood Mod (Negative) 05/23/21 Unknown Urine Nitrite Neg (Negative) 05/23/21 Unknown Urine Bilirubin Neg (Negative) 05/23/21 Unknown Urine Urobilinogen 4.0 mg/dL (<2.0) 05/23/21 Unknown Ur Leukocyte Esterase Tr (Negative) 05/23/21 Unknown Urine WBC (Auto) 34.0 /HPF (0.0-6.0) H 05/23/21 Unknown Urine RBC (Auto) 20.0 /HPF (0.0-6.0) 05/23/21 Unknown U Epithel Cells (Auto) 2.0 /HPF (0-13.0) 05/23/21 Unknown Urine Bacteria (Auto) 1+ /HPF (Negative) 05/23/21 Unknown Urine Mucus Few /HPF 05/23/21 Unknown Urine Osmolality 612 Mosm/kg 05/26/21 Unknown Urine Creatinine 128.6 mg/dL (0.1-20.0) H 05/26/21 Unknown Urine Sodium 37 mmol/L 05/26/21 Unknown Urine Potassium 45.15 mmol/L 05/26/21 Unknown Urine Urea Nitrogen 989 05/26/21 Unknown Nasal Screen MRSA (PCR) Positive (Negative) 05/30/21 12:00 Salicylates < 0.3 mg/dL (2.8-20.0) L 05/23/21 15:09 Urine Opiates Screen Negative 05/23/21 Unknown Urine Methadone Screen Negative 05/23/21 Unknown Acetaminophen 5.0 ug/mL (10.0-30.0) L 05/23/21 15:09 Ur Barbiturates Screen Negative 05/23/21 Unknown Ur Phencyclidine Scrn Negative 05/23/21 Unknown Ur Amphetamines Screen Negative 05/23/21 Unknown U Benzodiazepines Scrn Negative 05/23/21 Unknown Urine Cocaine Screen Negative 05/23/21 Unknown U Marijuana (THC) Screen Negative 05/23/21 Unknown Drugs of Abuse Note Disclamer 05/23/21 Unknown Plasma/Serum Alcohol < 0.01 % (0-0.07) 05/23/21 15:09 Coronavirus (PCR) Negative (Negative) 05/23/21 Unknown Blood Type O POSITIVE 05/23/21 15:01 Antibody Screen Negative 05/23/21 15:01 Garcia/IV: Voiding Method Indwelling Catheter Active Medications - Current Medications Current Medications: Generic Name Dose Route Start Last Admin Trade Name Freq PRN Reason Stop Dose Admin Acetaminophen 650 mg 05/23/21 20:42 Acetaminophen 325 Mg Tab PO Q4H PRN Pain MILD(1-3)/Fever >100.5/CASTORENA Albuterol 2.5 mg 05/23/21 21:11 Albuterol 2.5 Mg/3 Ml Nebu IH Q4HRT PRN Shortness Of Breath Albuterol/Ipratropium 1 ampul 05/29/21 08:00 05/31/21 19:07 Ipratropium/Albuterol Sulfate 3 Ml Ampul.Neb IH 1 ampul TIDRT ROSEMARIE Administration Lipase/Protease/Amylase 1 each 05/24/21 10:14 Lipase 10,500/Protease 25,000/Amylase 43,750 (Units) Dr Cap FEEDTUBE PRN PRN For Clogged Feeding Tube Apixaban 2.5 mg 05/29/21 13:00 05/31/21 22:05 Apixaban 2.5 Mg Tab PO 2.5 mg Q12HR ROSEMARIE Administration Protocol Famotidine 20 mg 05/27/21 10:00 05/31/21 22:04 Famotidine 20 Mg Tab FEEDTUBE 20 mg BID ROSEMARIE Administration Fentanyl 50 mcg 05/23/21 12:34 05/31/21 10:20 Fentanyl 100 Mcg/2 Ml Inj IV 50 mcg Q10MIN PRN Administration ANALGESIA Hydrophilic Ointment 1 applic 05/23/21 12:34 Lip Therapy Vaseline TP Q2HR PRN Dry Lips Fentanyl Citrate 2,000 mcg in 100 mls @ 8.528 mls/hr 05/23/21 13:00 06/01/21 05:34 Fentanyl Drip Premix IV 3.5 mcg/kg/hr TITR ROSEMARIE 29.846 mls/hr Administration Protocol 1 MCG/KG/HR NORepinephrine/NS 8 MG-250 ML 8 mg in 250 mls @ 3.75 mls/hr 05/24/21 20:00 05/25/21 15:20 Norepinephrine/Ns 8 Mg-250 Ml (Double Conc) IV 0 mcg/min TITRATE ROSEMARIE 0 mls/hr Titration Protocol 2 MCG/MIN Propofol 1,000 mg in 100 mls @ 5.117 mls/hr 05/25/21 19:00 06/01/21 03:07 Diprivan 10 Mg/Ml IV 5 mcg/kg/min TITR ROSEMARIE 5.117 mls/hr Titration Protocol 5 MCG/KG/MIN Lactated Ringer's 250 mls @ 999 mls/hr 05/31/21 11:00 05/31/21 12:34 Lactated Ringers IV 999 mls/hr DIRECT ROSEMARIE Administration Sodium Chloride 1,000 mls @ 75 mls/hr 05/31/21 14:30 06/01/21 03:42 Nacl 0.9% 1000 Ml IV 06/02/21 03:49 75 mls/hr DIRECT ROSEMARIE Administration Multi-Ingred Cream/Lotion/Oil/Oint 1 applic 05/23/21 12:34 05/30/21 22:14 Mineral Oil/Petrolatum, White Ophth Oint 3.5 Gm OU 1 applic Q4HR PRN Administration Dry Eye(s) Ondansetron HCl 4 mg 05/23/21 20:42 Ondansetron 4 Mg/2 Ml Inj IV Q8H PRN Nausea And Vomiting Senna/Docusate Sodium 1 tab 05/23/21 22:00 05/31/21 22:05 Sennosides/Docusate Sodium 8.6/50 Mg Tab FEEDTUBE 1 tab BID ROSEMARIE Administration Sildenafil Citrate 20 mg 05/28/21 20:00 05/31/21 22:05 Sildenafil 20 Mg Tab PO 20 mg TID ROSEMARIE Administration Simple Syrup 15 ml 05/24/21 10:14 Simple Syrup 15 Ml FEEDTUBE PRN PRN Hypoglycemia Simple Syrup 30 ml 05/24/21 10:14 Simple Syrup 15 Ml FEEDTUBE PRN PRN Hypoglycemia Sodium Bicarbonate 325 mg 05/24/21 10:14 Sodium Bicarbonate 325 Mg Tab FEEDTUBE PRN PRN For Clogged Feeding Tube Sodium Chloride 10 ml 05/23/21 22:00 05/31/21 22:05 Sodium Chloride 0.9% 10 Ml Flush Syringe IV 10 ml BID ROSEMARIE Administration Sodium Chloride 10 ml 05/23/21 20:42 Sodium Chloride 0.9% 10 Ml Flush Syringe IV PRN PRN LINE FLUSH Nutrition/Malnutrition Assess - Dietary Evaluation Nutrition/Malnutrition Findings: Nutrition Notes Start: 05/24/21 09:53 Freq: Status: Active Protocol: Document 05/28/21 14:30 GB (Rec: 05/28/21 14:44 GB [id number]) Nutrition Notes Initial or Follow up Reassessment Current Diagnosis Acute Kidney Injury, Hypertension,Respiratory Failure Other Pertinent Diagnosis SIRS, encephalopathy, pneu, transaminitis Current Diet NPO, Tube Feeding Nepro @ 45m/ hr Labs/Tests 05/28: BUN 53, Creatinine 1.6, glucose 118, Ca 8, Mg 2.4 Pertinent Medications Fentanyl Citrate, Norepenephrin/NS 8 Mg 250, Propofol 30.699 ml/hr (810kcal ) Height 5 ft 8 in Weight 170.551 kg [place] Body Weight (kg) 70.00 BMI 57.2 Weight change and time frame No new weights recorded at time of assessment Weight Status Morbidly Obese Subjective/Other Information Pt continues Intubated/sedated 05/28: Chest Xray note: tubes in satisfactory position, No significant changes 05/28: MD note unresponsive on vent BM: no record at time of assessment Percent of energy/protein needs met: TF at goal meets 75% or greater of minimal estimated energy needs Burn Absent Trauma Absent GI Symptoms Other Difficulty In Swallowing Food Allergy No Skin Integrity/Comment wound to left toe Current % PO Other Minimum of two criteria No #1 Nutrition Diagnosis Swallowing difficulty Comments: 05/25: intubation/sedation continues. TF started 05/28: intubation/sedation continues. TF Nepro @ goal 45ml/hr Etiology ARF As Evidenced by Signs and Symptoms Intubated/sedated Diagnosis Progress(for reassessment Continues documentation) Is patient on ventilator? Yes Is Patient Ambulatory and/or Out of Bed No REE-([facility]-confined to bed) 3092.088 Kcal/Kg value to use for calculation 12 Approximate Energy Requirements Using 2047 kcal/Kg Calculation Used for Recommendations Kcal/kg Additional Notes Protein: 0.6g/kg or greater @ 170kg Fluid: 1 ml/kcal or per MD Nutrition Intervention Change Diet Order: Continue NPO, Tube feeding Nutrition Support: Nepro 1.8 at 45 ml/hr Flush 175 ml q4h or per MD Total free water: TF@goal + flush = 1835ml Kcal 1,950 Protein (gm) 88 Carbohydrates (gm) 174 Fat (gm) 104 Fluid (mL) 788 Fiber (gm) 14 % RDI: 100%kcal / 86%pro Goal #1 Meet at least 75% or greater of EEN via TF 05/25: met, continues 05/28: met, continues Goal #2 TF (Nepro) at goal rate (45ml/ hr) by f/u 05/25: TF started 05/28: TF at goal. met, continues Follow-Up By: 06/02/21 Additional Comments F/u: TF tolerance, renal labs, vent status
[2021-05-31] MEDS: SODIUM CHLORIDE 0.9% 1000 ML 1,000 ML IV SCH (15:45)
[2021-06-01] MEDS: fentaNYL DRIP Premix 2,000 MCG/100 ML BAG IV SCH ×5 (02:38→19:47)
[2021-06-01] MEDS: SODIUM CHLORIDE 0.9% 1000 ML 1,000 ML IV SCH (03:42)
[2021-06-01 07:21] LABS: Hematocrit 36.4 % (35.5-45.6); Hemoglobin 11.2 gm/dl (11.8-15.2); Mean Corpuscular HGB Conc 31 % (32-34); Mean Corpuscular Volume 96 fl (84-94); Platelet Count 152 K/mm3 (140-440)
[2021-06-01 07:22] LABS: Red Cell Distribution Width 20.6 % (13.2-15.2)
[2021-06-01] MEDS: NORepinephrine/NS 8 MG-250 ML 8 MG/250 ML INFUS..BTL IV SCH ×2 (07:30→22:18)
[2021-06-01 07:33] LABS: Calcium 8.9 mg/dL (8.4-10.2)
[2021-06-01] MEDS: IPRATROPIUM/ALBUTEROL SULFATE 3 ML AMPUL.NEB IH SCH ×3 (07:56→20:01)
[2021-06-01] MEDS: FAMOTIDINE 20 MG TAB FEEDTUBE SCH ×2 (09:37→22:23)
[2021-06-01] MEDS: SENNOSIDES/DOCUSATE SODIUM 8.6/50 MG TAB FEEDTUBE SCH ×2 (09:37→22:23)
[2021-06-01] MEDS: APIXABAN 2.5 MG TAB PO SCH ×2 (09:37→22:23)
[2021-06-01] MEDS: SILDENAFIL 20 MG TAB PO SCH ×3 (09:38→22:23)
--- NOTE | 2021-06-01 10:01 | Progress Note ---
Assessment and Plan Assessment: Acute Renal Failure likely on CKD Hypertension Acute Respiratory Failure Pneumonia, community-acquired Morbid obesity Obstructive sleep apnea Edema Plan: Renal labs reviewed. Serum creatinine trend down to 1.6 today, yesterday's was 1.90, non-oliguric His serum creatinine was 0.8 in 2018 but current baseline is to be determine May have underlying CKD given history of Obesity and Hypertension Urine protein, eosinophils-pending Renally dose medications Obtain daily weights Monitor I/O's daily Avoid nephrotoxic agents No acute indication for [employer] Will continue to monitor renal function closely Plan of care reviewed by Dr. Santos Subjective Date of service: 06/01/21 Principal diagnosis: Acute hypoxemic and hypercapnic resp failure; PUI COVID-19; Pneumonia; FERMIN Interval history: Patient intubated and sedated. Objective - Vital Signs Vital signs: Vital Signs - 12hr 05/31/21 05/31/21 05/31/21 22:00 22:16 22:30 Temperature Pulse Rate 107 H 125 H 152 H Pulse Rate [ Anterior Bilateral Throughout] Respiratory 25 H 24 25 H Rate Respiratory Rate [Anterior Bilateral Throughout] Blood Pressure 101/50 101/50 101/50 O2 Sat by Pulse 94 93 86 Oximetry 05/31/21 05/31/21 05/31/21 22:46 23:00 23:06 Temperature Pulse Rate 116 H 114 H 112 H Pulse Rate [ Anterior Bilateral Throughout] Respiratory 25 H 24 Rate Respiratory Rate [Anterior Bilateral Throughout] Blood Pressure 141/84 141/84 O2 Sat by Pulse 89 94 90 Oximetry 05/31/21 05/31/21 05/31/21 23:08 23:16 23:30 Temperature Pulse Rate 111 H 108 H 102 H Pulse Rate [ Anterior Bilateral Throughout] Respiratory 25 H 26 H 25 H Rate Respiratory Rate [Anterior Bilateral Throughout] Blood Pressure 88/39 O2 Sat by Pulse 88 88 88 Oximetry 05/31/21 05/31/21 05/31/21 23:41 23:42 23:46 Temperature Pulse Rate 104 H 106 H Pulse Rate [ Anterior Bilateral Throughout] Respiratory 25 H 25 H Rate Respiratory Rate [Anterior Bilateral Throughout] Blood Pressure 105/56 105/56 105/56 O2 Sat by Pulse 89 87 Oximetry 05/31/21 06/01/21 06/01/21 23:54 00:00 00:16 Temperature 99.7 F H Pulse Rate 99 H 102 H Pulse Rate [ Anterior Bilateral Throughout] Respiratory 25 H 26 H Rate Respiratory Rate [Anterior Bilateral Throughout] Blood Pressure O2 Sat by Pulse 88 90 Oximetry 06/01/21 06/01/21 06/01/21 00:30 00:46 01:00 Temperature Pulse Rate 99 H 130 H 137 H Pulse Rate [ Anterior Bilateral Throughout] Respiratory 25 H 55 H 55 H Rate Respiratory Rate [Anterior Bilateral Throughout] Blood Pressure 96/48 96/48 134/81 O2 Sat by Pulse 89 91 90 Oximetry 06/01/21 06/01/21 06/01/21 01:16 01:30 01:46 Temperature Pulse Rate 139 H 143 H 136 H Pulse Rate [ Anterior Bilateral Throughout] Respiratory 63 H 46 H 56 H Rate Respiratory Rate [Anterior Bilateral Throughout] Blood Pressure 134/81 130/76 130/76 O2 Sat by Pulse 88 90 91 Oximetry 06/01/21 06/01/21 06/01/21 02:00 02:16 02:30 Temperature Pulse Rate 138 H 119 H 120 H Pulse Rate [ Anterior Bilateral Throughout] Respiratory 27 H 25 H 25 H Rate Respiratory Rate [Anterior Bilateral Throughout] Blood Pressure 121/56 121/56 98/43 O2 Sat by Pulse 90 91 90 Oximetry 06/01/21 06/01/21 06/01/21 02:46 03:00 03:18 Temperature Pulse Rate 123 H 105 H 99 H Pulse Rate [ Anterior Bilateral Throughout] Respiratory 25 H 25 H Rate Respiratory Rate [Anterior Bilateral Throughout] Blood Pressure 98/43 89/47 O2 Sat by Pulse 94 86 89 Oximetry 06/01/21 06/01/21 06/01/21 03:30 03:42 04:00 Temperature 100.8 F H Pulse Rate 96 H 92 H Pulse Rate [ Anterior Bilateral Throughout] Respiratory 25 H 25 H Rate Respiratory Rate [Anterior Bilateral Throughout] Blood Pressure O2 Sat by Pulse 91 90 Oximetry 06/01/21 06/01/21 06/01/21 04:30 05:00 05:30 Temperature Pulse Rate 98 H 89 99 H Pulse Rate [ Anterior Bilateral Throughout] Respiratory 25 H 25 H 25 H Rate Respiratory Rate [Anterior Bilateral Throughout] Blood Pressure 95/48 91/43 97/51 O2 Sat by Pulse 95 95 95 Oximetry 06/01/21 06/01/21 06/01/21 06:00 06:30 07:00 Temperature Pulse Rate 96 H 118 H 149 H Pulse Rate [ Anterior Bilateral Throughout] Respiratory 25 H 25 H 25 H Rate Respiratory Rate [Anterior Bilateral Throughout] Blood Pressure 90/45 108/62 121/75 O2 Sat by Pulse 95 95 93 Oximetry 06/01/21 06/01/21 07:25 07:56 Temperature 100.2 F H Pulse Rate 91 H Pulse Rate [ 95 H Anterior Bilateral Throughout] Respiratory Rate Respiratory 25 H Rate [Anterior Bilateral Throughout] Blood Pressure 103/58 O2 Sat by Pulse 94 Oximetry - General Appearance General appearance: sedated on ventilator, intubated EENT: ATNC Neck: no JVD Respiratory: Present: Decreased Breath Sounds, Other (intubated) Cardiology: S1S2 Gastrointestinal: normoactive bowel sounds Integumentary: chronic venous stasis Neurologic: other (sedated) Musculoskeletal: joint swelling - Lab 06/01/21 07:00 06/01/21 07:00 Most recent lab results ABG pH 7.351 (7.320-7.450) 06/01/21 03:06 ABG pCO2 48.1 mm Hg 05/30/21 09:22 ABG pO2 107.0 mm Hg (80.0-90.0) H 05/30/21 09:22 ABG HCO3 24.4 mmol/L (20.0-26.0) 05/30/21 09:22 ABG O2 Saturation 88.5 (0-100) 06/01/21 03:06 Calcium 8.9 mg/dL (8.4-10.2) 06/01/21 07:00 Phosphorus 2.90 mg/dL (2.5-4.5) 05/28/21 05:30 Magnesium 2.40 mg/dL (1.7-2.3) H 05/28/21 05:30 Urine Creatinine 128.6 mg/dL (0.1-20.0) H 05/26/21 Unknown Urine Sodium 37 mmol/L 05/26/21 Unknown Medications & Allergies - Medications Allergies/Adverse Reactions: Allergies No Known Allergies Allergy (Unverified 05/25/21 12:48) Home Medications: Home Medications Medication Instructions Recorded Confirmed Last Taken Type Amoxicillin [Amoxicillin TAB] 875 mg PO BID #20 tablet 11/12/14 05/29/21 Unknown Rx Apixaban 2.5 mg PO BID 05/29/21 05/29/21 Unknown History Cholecalciferol (Vitamin D3) 3 mg PO 1XW 11/05/21 11/05/21 Unknown History Metoprolol 150 mg PO BID 05/29/21 05/29/21 Unknown History Torsemide 80 mg PO DAILY 05/29/21 05/29/21 Unknown History Active Medications: Generic Name Dose Route Start Last Admin Trade Name Freq PRN Reason Stop Dose Admin Acetaminophen 650 mg 05/23/21 20:42 Acetaminophen 325 Mg Tab PO Q4H PRN Pain MILD(1-3)/Fever >100.5/CAST[place]NA Albuterol 2.5 mg 05/23/21 21:11 Albuterol 2.5 Mg/3 Ml Nebu IH Q4HRT PRN Shortness Of Breath Albuterol/Ipratropium 1 ampul 05/29/21 08:00 06/01/21 07:56 Ipratropium/Albuterol Sulfate 3 Ml Ampul.Neb IH 1 ampul TIDRT ROSEMARIE Administration Lipase/Protease/Amylase 1 each 05/24/21 10:14 Lipase 10,500/Protease 25,000/Amylase 43,750 (Units) Dr Cap FEEDTUBE PRN PRN For Clogged Feeding Tube Apixaban 2.5 mg 05/29/21 13:00 06/01/21 09:37 Apixaban 2.5 Mg Tab PO 2.5 mg Q12HR ROSEMARIE Administration Protocol Famotidine 20 mg 05/27/21 10:00 06/01/21 09:37 Famotidine 20 Mg Tab FEEDTUBE 20 mg BID ROSEMARIE Administration Fentanyl 50 mcg 05/23/21 12:34 05/31/21 10:20 Fentanyl 100 Mcg/2 Ml Inj IV 50 mcg Q10MIN PRN Administration ANALGESIA Hydrophilic Ointment 1 applic 05/23/21 12:34 Lip Therapy Vaseline TP Q2HR PRN Dry Lips Fentanyl Citrate 2,000 mcg in 100 mls @ 8.528 mls/hr 05/23/21 13:00 06/01/21 09:39 Fentanyl Drip Premix IV 2 mcg/kg/hr TITR ROSEMARIE 17.055 mls/hr Administration Protocol 1 MCG/KG/HR NORepinephrine/NS 8 MG-250 ML 8 mg in 250 mls @ 3.75 mls/hr 05/24/21 20:00 05/25/21 15:20 Norepinephrine/Ns 8 Mg-250 Ml (Double Conc) IV 0 mcg/min TITRATE ROSEMARIE 0 mls/hr Titration Protocol 2 MCG/MIN Propofol 1,000 mg in 100 mls @ 5.117 mls/hr 05/25/21 19:00 06/01/21 09:40 Diprivan 10 Mg/Ml IV 10 mcg/kg/min TITR ROSEMARIE 10.233 mls/hr Administration Protocol 5 MCG/KG/MIN Sodium Chloride 1,000 mls @ 75 mls/hr 05/31/21 14:30 06/01/21 03:42 Nacl 0.9% 1000 Ml IV 06/02/21 03:49 75 mls/hr DIRECT ROSEMARIE Administration Multi-Ingred Cream/Lotion/Oil/Oint 1 applic 05/23/21 12:34 05/30/21 22:14 Mineral Oil/Petrolatum, White Ophth Oint 3.5 Gm OU 1 applic Q4HR PRN Administration Dry Eye(s) Ondansetron HCl 4 mg 05/23/21 20:42 Ondansetron 4 Mg/2 Ml Inj IV Q8H PRN Nausea And Vomiting Senna/Docusate Sodium 1 tab 05/23/21 22:00 06/01/21 09:37 Sennosides/Docusate Sodium 8.6/50 Mg Tab FEEDTUBE 1 tab BID ROSEMARIE Administration Sildenafil Citrate 20 mg 05/28/21 20:00 06/01/21 09:38 Sildenafil 20 Mg Tab PO 20 mg TID ROSEMARIE Administration Simple Syrup 15 ml 05/24/21 10:14 Simple Syrup 15 Ml FEEDTUBE PRN PRN Hypoglycemia Simple Syrup 30 ml 05/24/21 10:14 Simple Syrup 15 Ml FEEDTUBE PRN PRN Hypoglycemia Sodium Bicarbonate 325 mg 05/24/21 10:14 Sodium Bicarbonate 325 Mg Tab FEEDTUBE PRN PRN For Clogged Feeding Tube Sodium Chloride 10 ml 05/23/21 22:00 06/01/21 09:38 Sodium Chloride 0.9% 10 Ml Flush Syringe IV 10 ml BID ROSEMARIE Administration Sodium Chloride 10 ml 05/23/21 20:42 Sodium Chloride 0.9% 10 Ml Flush Syringe IV PRN PRN LINE FLUSH
--- NOTE | 2021-06-01 11:27 | Progress Note ---
Assessment and Plan Acute possibly on chronic hypoxemic and hypercapnic respiratory failure Pneumonia, community-acquired Acute toxic metabolic encephalopathy Person under investigation for COVID-19 Morbid obesity Obstructive sleep apnea History of hypertension Acute kidney injury Hyperkalemia Elevated serum transaminases Possible shock liver Hyperammonemia Non-ST elevation myocardial infarction - complete IVNS & 75 mls/ hr X 2 liters - wean Levophed for target MAP > 65 mmHg - reduced FiO2 to 65% - repeat ABG in am - continue care as below otherwise; - continue Eliquis - continue Revatio re: pulm HTN - nephrology input appreciated (azotemia improving) - continue Daily SAT and SBT assessment as tolerated - continue to wean supplemental oxygen for target O2 sat's > 90% acutely - VAP bundle addressed - continue lung protective strategies - continue bronchodilators with pulmonary hygiene per RT - wean per pulmonary driven protocols otherwise - avoid nephrotoxins, renally dose all medications - continue accuchecks with glycemic control per SSI (While critically ill target blood glucose of 140-180 mg/dL; avoid hypoglycemia) - sedation prn for target RASS 0 to -1 - continue to avoid benzodiazepine's, reduce the possibility of delirium - AB's per ID rec's - prn analgesia per CPOT score - Maintenance of sleep-wake cycle, avoid delirium - continue enteral nutritional support at goal rate as tolerated - G.I. & VTE prophylaxis - PT/OT/ROM exercises - continue mobility protocols for pressure ulcer prophylaxis - Monitor hemodynamics closely - continue other care per attending / other consultants - discharge planning ongoing concurrently COVID SPECIFIC INTERVENTIONS - COVID-19 test result pending .... Re-evaluate in am & prn CONDITION: CRITICAL PROGNOSIS: GUARDED CODE STATUS: FULL CODE The high probability of a clinically significant, sudden or life-threatening deterioration of the [respiratory, cardiovascular, renal & neurologic] system(s) required my full and direct attention, intervention and personal management. The aggregate critical care time was [32] minutes without overlap. Time includes spent on; [x] Data Review and interpretation [x] Patient assessment and monitoring of vital signs [x] Documentation [x] Medication orders and management Subjective Date of service: 06/01/21 Principal diagnosis: Acute hypoxemic and hypercapnic resp failure; PUI COVID-19; Pneumonia; FERMIN Interval history: Patient is seen today for: Acute hypoxemic and hypercapnic respiratory failure; PUI NCOVID-19; Pneumonia; CAP; FERMIN; REVA Seen and examined at bedside; 24hour events reviewed; nursing and respiratory care staff consulted; no adverse overnight events reported to me; remains on MVS; started on Levophed but at 2 mics/min; azotemia is stable but persistent; tachyarrythmia improved; no emesis or overt aspiration; no high grade fevers and no bleeding Objective Vital Signs - 12hr 05/31/21 05/31/21 05/31/21 23:30 23:41 23:42 Temperature Pulse Rate 102 H 104 H Pulse Rate [ Anterior Bilateral Throughout] Respiratory 25 H 25 H Rate Respiratory Rate [Anterior Bilateral Throughout] Blood Pressure 105/56 105/56 O2 Sat by Pulse 88 89 Oximetry 05/31/21 05/31/21 06/01/21 23:46 23:54 00:00 Temperature 99.7 F H Pulse Rate 106 H 99 H Pulse Rate [ Anterior Bilateral Throughout] Respiratory 25 H 25 H Rate Respiratory Rate [Anterior Bilateral Throughout] Blood Pressure 105/56 O2 Sat by Pulse 87 88 Oximetry 06/01/21 06/01/21 06/01/21 00:16 00:30 00:46 Temperature Pulse Rate 102 H 99 H 130 H Pulse Rate [ Anterior Bilateral Throughout] Respiratory 26 H 25 H 55 H Rate Respiratory Rate [Anterior Bilateral Throughout] Blood Pressure 96/48 96/48 O2 Sat by Pulse 90 89 91 Oximetry 06/01/21 06/01/21 06/01/21 01:00 01:16 01:30 Temperature Pulse Rate 137 H 139 H 143 H Pulse Rate [ Anterior Bilateral Throughout] Respiratory 55 H 63 H 46 H Rate Respiratory Rate [Anterior Bilateral Throughout] Blood Pressure 134/81 134/81 130/76 O2 Sat by Pulse 90 88 90 Oximetry 06/01/21 06/01/21 06/01/21 01:46 02:00 02:16 Temperature Pulse Rate 136 H 138 H 119 H Pulse Rate [ Anterior Bilateral Throughout] Respiratory 56 H 27 H 25 H Rate Respiratory Rate [Anterior Bilateral Throughout] Blood Pressure 130/76 121/56 121/56 O2 Sat by Pulse 91 90 91 Oximetry 06/01/21 06/01/21 06/01/21 02:30 02:46 03:00 Temperature Pulse Rate 120 H 123 H 105 H Pulse Rate [ Anterior Bilateral Throughout] Respiratory 25 H 25 H 25 H Rate Respiratory Rate [Anterior Bilateral Throughout] Blood Pressure 98/43 98/43 O2 Sat by Pulse 90 94 86 Oximetry 06/01/21 06/01/21 06/01/21 03:18 03:30 03:42 Temperature 100.8 F H Pulse Rate 99 H 96 H Pulse Rate [ Anterior Bilateral Throughout] Respiratory 25 H Rate Respiratory Rate [Anterior Bilateral Throughout] Blood Pressure 89/47 O2 Sat by Pulse 89 91 Oximetry 06/01/21 06/01/21 06/01/21 04:00 04:30 05:00 Temperature Pulse Rate 92 H 98 H 89 Pulse Rate [ Anterior Bilateral Throughout] Respiratory 25 H 25 H 25 H Rate Respiratory Rate [Anterior Bilateral Throughout] Blood Pressure 95/48 91/43 O2 Sat by Pulse 90 95 95 Oximetry 06/01/21 06/01/21 06/01/21 05:30 06:00 06:30 Temperature Pulse Rate 99 H 96 H 118 H Pulse Rate [ Anterior Bilateral Throughout] Respiratory 25 H 25 H 25 H Rate Respiratory Rate [Anterior Bilateral Throughout] Blood Pressure 97/51 90/45 108/62 O2 Sat by Pulse 95 95 95 Oximetry 06/01/21 06/01/21 06/01/21 07:00 07:25 07:56 Temperature 100.2 F H Pulse Rate 149 H 91 H Pulse Rate [ 95 H Anterior Bilateral Throughout] Respiratory 25 H Rate Respiratory 25 H Rate [Anterior Bilateral Throughout] Blood Pressure 121/75 103/58 O2 Sat by Pulse 93 94 Oximetry Constitutional: no acute distress, other (middle aged morbidly obese male with mildly increased respiratory effort at rest on MVS) Eyes: non-icteric ENT: oropharynx moist, other (ETT 24 cm FRANCIS) Neck: supple, no lymphadenopathy, no JVD Effort: mildly labored Ascultation: Bilateral: diminished breath sounds, rhonchi Percussion: Bilateral: not dull Cardiovascular: regular rate and rhythm Gastrointestinal: normoactive bowel sounds, soft, non-tender, non-distended Integumentary: rash (stasis dermatitis) Extremities: no cyanosis, pulses normal, no ischemia or petechiae, edema (trace) Neurologic: non-focal exam (grossly), pupils equal and round, CN II-XII normal, other (sedated) Psychiatric: other (sedated) CBC and BMP: 06/02/21 04:23 06/02/21 04:23 ABG, PT/INR, D-dimer: ABG ABG pH 7.351 (7.320-7.450) 06/01/21 03:06 POC ABG pCO2 46.5 mmHg (32.0-48.0) 06/01/21 03:06 ABG pCO2 48.1 mm Hg 05/30/21 09:22 POC ABG pO2 55.0 mmHg (83-108) L 06/01/21 03:06 ABG pO2 107.0 mm Hg (80.0-90.0) H 05/30/21 09:22 POC ABG HCO3 25.2 06/01/21 03:06 ABG O2 Saturation 88.5 (0-100) 06/01/21 03:06 PT/INR, D-dimer PT 15.3 Sec. (12.2-14.9) H 05/29/21 13:40 INR 1.09 (0.87-1.13) 05/29/21 13:40 D-Dimer 4444.85 ng/mlDDU (0-234) H 05/23/21 15:09 Abnormal lab findings: Abnormal Labs 05/23/21 05/23/21 05/23/21 15:00 15:09 15:09 WBC Hgb MCV 95 H MCHC 30 L RDW 20.1 H Plt Count Lymph % (Auto) 5.9 L Lymph # (Auto) 0.6 L Seg Neutrophils % 87.5 H Seg Neuts % (Manual) Lymphocytes % (Manual) Seg Neutrophils # 8.2 H Seg Neutrophils # Man Lymphocytes # (Manual) PT 18.1 H INR 1.36 H APTT 23.1 L D-Dimer ABG pH 7.215 L POC ABG pCO2 POC ABG pO2 ABG pO2 ABG HCO3 28.4 H ABG O2 Saturation ABG Base Excess ABG Hemoglobin 13.5 L ABG Oxyhemoglobin ABG Sodium ABG Potassium ABG Chloride ABG Glucose Oxyhemoglobin 92.6 L Sodium Potassium Carbon Dioxide BUN Creatinine Glucose POC Glucose Calcium Magnesium AST ALT Ammonia Total Creatine Kinase Troponin T C-Reactive Protein NT-Pro-B Natriuret Pep Albumin HDL Cholesterol Arterial Blood Glucose Urine WBC (Auto) Urine Creatinine Salicylates Acetaminophen 05/23/21 05/23/21 05/23/21 15:09 15:09 15:09 WBC Hgb MCV MCHC RDW Plt Count Lymph % (Auto) Lymph # (Auto) Seg Neutrophils % Seg Neuts % (Manual) Lymphocytes % (Manual) Seg Neutrophils # Seg Neutrophils # Man Lymphocytes # (Manual) PT INR APTT D-Dimer ABG pH POC ABG pCO2 POC ABG pO2 ABG pO2 ABG HCO3 ABG O2 Saturation ABG Base Excess ABG Hemoglobin ABG Oxyhemoglobin ABG Sodium ABG Potassium ABG Chloride ABG Glucose Oxyhemoglobin Sodium Potassium 5.2 H Carbon Dioxide BUN 40 H Creatinine 3.2 H Glucose 133 H POC Glucose Calcium Magnesium AST 1094 H ALT 1089 H Ammonia 75.0 H Total Creatine Kinase Troponin T 0.038 H C-Reactive Protein NT-Pro-B Natriuret Pep Albumin 3.0 L HDL Cholesterol 29 L Arterial Blood Glucose Urine WBC (Auto) Urine Creatinine Salicylates < 0.3 L Acetaminophen 05/23/21 05/23/21 05/23/21 15:09 15:09 15:09 WBC Hgb MCV MCHC RDW Plt Count Lymph % (Auto) Lymph # (Auto) Seg Neutrophils % Seg Neuts % (Manual) Lymphocytes % (Manual) Seg Neutrophils # Seg Neutrophils # Man Lymphocytes # (Manual) PT INR APTT D-Dimer 4444.85 H ABG pH POC ABG pCO2 POC ABG pO2 ABG pO2 ABG HCO3 ABG O2 Saturation ABG Base Excess ABG Hemoglobin ABG Oxyhemoglobin ABG Sodium ABG Potassium ABG Chloride ABG Glucose Oxyhemoglobin Sodium Potassium Carbon Dioxide BUN Creatinine Glucose POC Glucose Calcium Magnesium AST ALT Ammonia Total Creatine Kinase 48 L Troponin T C-Reactive Protein NT-Pro-B Natriuret Pep 38527 H Albumin HDL Cholesterol Arterial Blood Glucose Urine WBC (Auto) Urine Creatinine Salicylates Acetaminophen 5.0 L 05/23/21 05/23/21 05/23/21 19:10 20:48 Unknown WBC Hgb MCV MCHC RDW Plt Count Lymph % (Auto) Lymph # (Auto) Seg Neutrophils % Seg Neuts % (Manual) Lymphocytes % (Manual) Seg Neutrophils # Seg Neutrophils # Man Lymphocytes # (Manual) PT INR APTT D-Dimer ABG pH 7.332 L POC ABG pCO2 POC ABG pO2 ABG pO2 74.0 L ABG HCO3 ABG O2 Saturation 94.4 L ABG Base Excess ABG Hemoglobin 12.5 L ABG Oxyhemoglobin ABG Sodium ABG Potassium ABG Chloride ABG Glucose Oxyhemoglobin 92.3 L Sodium Potassium Carbon Dioxide BUN Creatinine Glucose POC Glucose Calcium Magnesium AST ALT Ammonia Total Creatine Kinase Troponin T C-Reactive Protein 10.00 H NT-Pro-B Natriuret Pep Albumin HDL Cholesterol Arterial Blood Glucose Urine WBC (Auto) 34.0 H Urine Creatinine Salicylates Acetaminophen 05/24/21 05/24/21 05/24/21 04:55 04:55 09:15 WBC Hgb MCV 95 H MCHC 31 L RDW 19.4 H Plt Count Lymph % (Auto) Lymph # (Auto) Seg Neutrophils % Seg Neuts % (Manual) 97.0 H Lymphocytes % (Manual) 3.0 L Seg Neutrophils # Seg Neutrophils # Man 8.4 H Lymphocytes # (Manual) 0.3 L PT INR APTT D-Dimer ABG pH POC ABG pCO2 POC ABG pO2 ABG pO2 90.6 H ABG HCO3 ABG O2 Saturation ABG Base Excess -3.7 L ABG Hemoglobin 13.5 L ABG Oxyhemoglobin ABG Sodium ABG Potassium ABG Chloride ABG Glucose Oxyhemoglobin Sodium Potassium 5.5 H Carbon Dioxide 20 L BUN 39 H Creatinine 2.2 H Glucose 155 H POC Glucose Calcium 8.3 L Magnesium AST 571 H ALT 951 H Ammonia Total Creatine Kinase Troponin T C-Reactive Protein NT-Pro-B Natriuret Pep Albumin 3.2 L HDL Cholesterol Arterial Blood Glucose Urine WBC (Auto) Urine Creatinine Salicylates Acetaminophen 05/25/21 05/25/21 05/25/21 04:20 14:37 14:37 WBC Hgb MCV 96 H MCHC 30 L RDW 20.7 H Plt Count Lymph % (Auto) Lymph # (Auto) Seg Neutrophils % Seg Neuts % (Manual) Lymphocytes % (Manual) Seg Neutrophils # Seg Neutrophils # Man Lymphocytes # (Manual) PT INR APTT D-Dimer ABG pH 7.222 L POC ABG pCO2 57.8 H POC ABG pO2 67.3 L ABG pO2 ABG HCO3 ABG O2 Saturation ABG Base Excess ABG Hemoglobin ABG Oxyhemoglobin 89.1 L ABG Sodium ABG Potassium 5.1 H ABG Chloride ABG Glucose 182 H Oxyhemoglobin Sodium Potassium 5.3 H Carbon Dioxide BUN 47 H Creatinine 2.0 H Glucose 154 H POC Glucose Calcium Magnesium AST 93 H ALT 590 H Ammonia Total Creatine Kinase Troponin T C-Reactive Protein NT-Pro-B Natriuret Pep Albumin 3.6 L HDL Cholesterol Arterial Blood Glucose 182 H Urine WBC (Auto) Urine Creatinine Salicylates Acetaminophen 05/25/21 05/25/21 05/26/21 21:50 23:30 05:31 WBC Hgb MCV MCHC RDW Plt Count Lymph % (Auto) Lymph # (Auto) Seg Neutrophils % Seg Neuts % (Manual) Lymphocytes % (Manual) Seg Neutrophils # Seg Neutrophils # Man Lymphocytes # (Manual) PT INR APTT D-Dimer ABG pH 7.328 L POC ABG pCO2 POC ABG pO2 ABG pO2 63.3 L ABG HCO3 ABG O2 Saturation 92.1 L ABG Base Excess -2.4 L ABG Hemoglobin 11.3 L ABG Oxyhemoglobin ABG Sodium ABG Potassium ABG Chloride ABG Glucose Oxyhemoglobin 90.3 L Sodium Potassium Carbon Dioxide BUN Creatinine Glucose POC Glucose 131 H 123 H Calcium Magnesium AST ALT Ammonia Total Creatine Kinase Troponin T C-Reactive Protein NT-Pro-B Natriuret Pep Albumin HDL Cholesterol Arterial Blood Glucose Urine WBC (Auto) Urine Creatinine Salicylates Acetaminophen 05/26/21 05/26/21 05/26/21 09:02 10:57 17:30 WBC Hgb MCV MCHC RDW Plt Count Lymph % (Auto) Lymph # (Auto) Seg Neutrophils % Seg Neuts % (Manual) Lymphocytes % (Manual) Seg Neutrophils # Seg Neutrophils # Man Lymphocytes # (Manual) PT INR APTT D-Dimer ABG pH 7.346 L POC ABG pCO2 POC ABG pO2 ABG pO2 60.5 L ABG HCO3 ABG O2 Saturation 90.7 L ABG Base Excess ABG Hemoglobin 13.1 L ABG Oxyhemoglobin ABG Sodium ABG Potassium ABG Chloride ABG Glucose Oxyhemoglobin 88.9 L Sodium Potassium Carbon Dioxide BUN Creatinine Glucose POC Glucose 127 H 141 H Calcium Magnesium AST ALT Ammonia Total Creatine Kinase Troponin T C-Reactive Protein NT-Pro-B Natriuret Pep Albumin HDL Cholesterol Arterial Blood Glucose Urine WBC (Auto) Urine Creatinine Salicylates Acetaminophen 05/26/21 05/26/21 05/26/21 21:00 Unknown Unknown WBC 4.2 L Hgb 11.7 L MCV MCHC 31 L RDW 20.3 H Plt Count 132 L Lymph % (Auto) Lymph # (Auto) Seg Neutrophils % Seg Neuts % (Manual) Lymphocytes % (Manual) Seg Neutrophils # Seg Neutrophils # Man Lymphocytes # (Manual) PT INR APTT D-Dimer ABG pH POC ABG pCO2 POC ABG pO2 56.7 L ABG pO2 ABG HCO3 ABG O2 Saturation ABG Base Excess ABG Hemoglobin ABG Oxyhemoglobin 88.8 L ABG Sodium ABG Potassium 4.7 H ABG Chloride ABG Glucose 152 H Oxyhemoglobin Sodium Potassium 5.2 H Carbon Dioxide BUN 47 H Creatinine 2.0 H Glucose 136 H POC Glucose Calcium Magnesium AST 64 H ALT 448 H Ammonia Total Creatine Kinase Troponin T C-Reactive Protein NT-Pro-B Natriuret Pep Albumin 3.4 L HDL Cholesterol Arterial Blood Glucose 152 H Urine WBC (Auto) Urine Creatinine Salicylates Acetaminophen 05/26/21 05/27/21 05/27/21 Unknown 08:00 08:00 WBC 4.2 L Hgb MCV MCHC RDW 21.2 H Plt Count 126 L Lymph % (Auto) Lymph # (Auto) Seg Neutrophils % Seg Neuts % (Manual) Lymphocytes % (Manual) Seg Neutrophils # Seg Neutrophils # Man Lymphocytes # (Manual) PT INR APTT D-Dimer ABG pH POC ABG pCO2 POC ABG pO2 ABG pO2 ABG HCO3 ABG O2 Saturation ABG Base Excess ABG Hemoglobin ABG Oxyhemoglobin ABG Sodium ABG Potassium ABG Chloride ABG Glucose Oxyhemoglobin Sodium Potassium Carbon Dioxide BUN 52 H Creatinine 1.8 H Glucose 171 H POC Glucose Calcium 8.3 L Magnesium AST ALT Ammonia Total Creatine Kinase Troponin T C-Reactive Protein NT-Pro-B Natriuret Pep Albumin HDL Cholesterol Arterial Blood Glucose Urine WBC (Auto) Urine Creatinine 128.6 H Salicylates Acetaminophen 05/27/21 05/27/21 05/27/21 10:15 11:48 17:13 WBC Hgb MCV MCHC RDW Plt Count Lymph % (Auto) Lymph # (Auto) Seg Neutrophils % Seg Neuts % (Manual) Lymphocytes % (Manual) Seg Neutrophils # Seg Neutrophils # Man Lymphocytes # (Manual) PT INR APTT D-Dimer ABG pH 7.300 L POC ABG pCO2 POC ABG pO2 ABG pO2 42.1 L ABG HCO3 ABG O2 Saturation 72.8 L ABG Base Excess ABG Hemoglobin 12.7 L ABG Oxyhemoglobin ABG Sodium ABG Potassium ABG Chloride ABG Glucose Oxyhemoglobin 71.4 L Sodium Potassium Carbon Dioxide BUN Creatinine Glucose POC Glucose 139 H 145 H Calcium Magnesium AST ALT Ammonia Total Creatine Kinase Troponin T C-Reactive Protein NT-Pro-B Natriuret Pep Albumin HDL Cholesterol Arterial Blood Glucose Urine WBC (Auto) Urine Creatinine Salicylates Acetaminophen 05/28/21 05/28/21 05/28/21 05:30 11:37 13:32 WBC Hgb MCV MCHC RDW Plt Count Lymph % (Auto) Lymph # (Auto) Seg Neutrophils % Seg Neuts % (Manual) Lymphocytes % (Manual) Seg Neutrophils # Seg Neutrophils # Man Lymphocytes # (Manual) PT INR APTT D-Dimer ABG pH 7.339 L POC ABG pCO2 POC ABG pO2 ABG pO2 53.7 L ABG HCO3 ABG O2 Saturation 86.5 L ABG Base Excess ABG Hemoglobin 12.3 L ABG Oxyhemoglobin ABG Sodium ABG Potassium ABG Chloride ABG Glucose Oxyhemoglobin 84.6 L Sodium Potassium Carbon Dioxide BUN 53 H Creatinine 1.6 H Glucose 118 H POC Glucose 115 H Calcium 8.0 L Magnesium 2.40 H AST ALT Ammonia Total Creatine Kinase Troponin T C-Reactive Protein NT-Pro-B Natriuret Pep Albumin HDL Cholesterol Arterial Blood Glucose Urine WBC (Auto) Urine Creatinine Salicylates Acetaminophen 05/28/21 05/29/21 05/29/21 Unknown 09:43 13:40 WBC Hgb 11.7 L MCV MCHC 31 L RDW 21.3 H 20.9 H Plt Count 121 L 103 L Lymph % (Auto) Lymph # (Auto) Seg Neutrophils % Seg Neuts % (Manual) Lymphocytes % (Manual) Seg Neutrophils # Seg Neutrophils # Man Lymphocytes # (Manual) PT INR APTT D-Dimer ABG pH POC ABG pCO2 POC ABG pO2 ABG pO2 60.9 L ABG HCO3 ABG O2 Saturation 90.7 L ABG Base Excess ABG Hemoglobin 12.0 L ABG Oxyhemoglobin ABG Sodium ABG Potassium ABG Chloride ABG Glucose Oxyhemoglobin 88.9 L Sodium Potassium Carbon Dioxide BUN Creatinine Glucose POC Glucose Calcium Magnesium AST ALT Ammonia Total Creatine Kinase Troponin T C-Reactive Protein NT-Pro-B Natriuret Pep Albumin HDL Cholesterol Arterial Blood Glucose Urine WBC (Auto) Urine Creatinine Salicylates Acetaminophen 05/29/21 05/29/21 05/30/21 13:40 13:40 04:42 WBC Hgb 11.7 L MCV 95 H MCHC RDW 20.8 H Plt Count 106 L Lymph % (Auto) Lymph # (Auto) Seg Neutrophils % Seg Neuts % (Manual) Lymphocytes % (Manual) Seg Neutrophils # Seg Neutrophils # Man Lymphocytes # (Manual) PT 15.3 H INR APTT D-Dimer ABG pH POC ABG pCO2 POC ABG pO2 ABG pO2 ABG HCO3 ABG O2 Saturation ABG Base Excess ABG Hemoglobin ABG Oxyhemoglobin ABG Sodium ABG Potassium ABG Chloride ABG Glucose Oxyhemoglobin Sodium Potassium Carbon Dioxide BUN Creatinine 1.7 H Glucose POC Glucose Calcium Magnesium AST ALT Ammonia Total Creatine Kinase Troponin T C-Reactive Protein NT-Pro-B Natriuret Pep Albumin HDL Cholesterol Arterial Blood Glucose Urine WBC (Auto) Urine Creatinine Salicylates Acetaminophen 05/30/21 05/30/21 05/30/21 04:42 07:47 09:22 WBC Hgb MCV MCHC RDW Plt Count Lymph % (Auto) Lymph # (Auto) Seg Neutrophils % Seg Neuts % (Manual) Lymphocytes % (Manual) Seg Neutrophils # Seg Neutrophils # Man Lymphocytes # (Manual) PT INR APTT D-Dimer ABG pH 7.323 L POC ABG pCO2 POC ABG pO2 ABG pO2 107.0 H ABG HCO3 ABG O2 Saturation ABG Base Excess ABG Hemoglobin 12.4 L ABG Oxyhemoglobin ABG Sodium ABG Potassium ABG Chloride ABG Glucose Oxyhemoglobin Sodium 135 L Potassium Carbon Dioxide BUN 63 H 63 H Creatinine 1.6 H 1.6 H Glucose POC Glucose Calcium 8.2 L Magnesium AST ALT Ammonia Total Creatine Kinase Troponin T C-Reactive Protein NT-Pro-B Natriuret Pep Albumin HDL Cholesterol Arterial Blood Glucose Urine WBC (Auto) Urine Creatinine Salicylates Acetaminophen 05/31/21 05/31/21 05/31/21 05:16 05:16 05:17 WBC Hgb 11.1 L MCV MCHC 31 L RDW 20.8 H Plt Count 116 L Lymph % (Auto) Lymph # (Auto) Seg Neutrophils % Seg Neuts % (Manual) Lymphocytes % (Manual) Seg Neutrophils # Seg Neutrophils # Man Lymphocytes # (Manual) PT INR APTT D-Dimer ABG pH POC ABG pCO2 POC ABG pO2 ABG pO2 ABG HCO3 ABG O2 Saturation ABG Base Excess ABG Hemoglobin ABG Oxyhemoglobin ABG Sodium ABG Potassium ABG Chloride ABG Glucose Oxyhemoglobin Sodium Potassium Carbon Dioxide BUN 62 H Creatinine 1.9 H Glucose 103 H POC Glucose 109 H Calcium Magnesium AST ALT Ammonia Total Creatine Kinase Troponin T C-Reactive Protein NT-Pro-B Natriuret Pep Albumin HDL Cholesterol Arterial Blood Glucose Urine WBC (Auto) Urine Creatinine Salicylates Acetaminophen 05/31/21 05/31/21 06/01/21 16:49 Unknown 03:06 WBC Hgb MCV MCHC RDW Plt Count Lymph % (Auto) Lymph # (Auto) Seg Neutrophils % Seg Neuts % (Manual) Lymphocytes % (Manual) Seg Neutrophils # Seg Neutrophils # Man Lymphocytes # (Manual) PT INR APTT D-Dimer ABG pH POC ABG pCO2 48.4 H POC ABG pO2 63.0 L 55.0 L ABG pO2 ABG HCO3 ABG O2 Saturation ABG Base Excess ABG Hemoglobin 11.9 L 10.9 L ABG Oxyhemoglobin 91.4 L 87.5 L ABG Sodium 127.4 L ABG Potassium 4.6 H 4.6 H ABG Chloride 108.0 H ABG Glucose 110 H 108 H Oxyhemoglobin Sodium Potassium Carbon Dioxide BUN Creatinine Glucose POC Glucose 107 H Calcium Magnesium AST ALT Ammonia Total Creatine Kinase Troponin T C-Reactive Protein NT-Pro-B Natriuret Pep Albumin HDL Cholesterol Arterial Blood Glucose 110 H 108 H Urine WBC (Auto) Urine Creatinine Salicylates Acetaminophen 06/01/21 06/01/21 07:00 07:00 WBC Hgb 11.2 L MCV 96 H MCHC 31 L RDW 20.6 H Plt Count Lymph % (Auto) Lymph # (Auto) Seg Neutrophils % Seg Neuts % (Manual) Lymphocytes % (Manual) Seg Neutrophils # Seg Neutrophils # Man Lymphocytes # (Manual) PT INR APTT D-Dimer ABG pH POC ABG pCO2 POC ABG pO2 ABG pO2 ABG HCO3 ABG O2 Saturation ABG Base Excess ABG Hemoglobin ABG Oxyhemoglobin ABG Sodium ABG Potassium ABG Chloride ABG Glucose Oxyhemoglobin Sodium Potassium Carbon Dioxide BUN 59 H Creatinine 1.6 H Glucose 104 H POC Glucose Calcium Magnesium AST ALT Ammonia Total Creatine Kinase Troponin T C-Reactive Protein NT-Pro-B Natriuret Pep Albumin HDL Cholesterol Arterial Blood Glucose Urine WBC (Auto) Urine Creatinine Salicylates Acetaminophen Chest x-ray: pending Allied health notes reviewed: nursing
--- NOTE | 2021-06-01 13:30 | Progress Note ---
Assessment and Plan - Patient Problems (1) Acute respiratory failure Current Visit: Yes Status: Acute Plan to address problem: 41-year-old man who is morbidly obese, weighing over 375 pounds, admitted with acute respiratory failure. Cardiology consultation was requested for assessment of heart failure. Chest x-ray showed a normal-sized cardiac silhouette and clear lungs. EKG was sinus with an incomplete right bundle branch block. There are no clinical signs or echocardiographic findings of left-sided heart failure. Left ventricular ejection fraction was 55%. Conversely there was dilatation of the right heart chambers, moderate tricuspid regurgitation and at least moderate pulmonary hypertension with a pulmonary artery systolic pressure of 53. Findings suggest the presence of chronic cor pulmonale, likely associated with COPD and possible sleep apnea. We will continue conservative cardiac management as previously outlined. Subjective Date of service: 06/01/21 Principal diagnosis: Acute hypoxemic and hypercapnic resp failure; PUI COVID-19; Pneumonia; FERMIN Interval history: Patient is unresponsive, on the vent. No new cardiac complaints reported. On ekg monitor, there is a sinus rhythm at 93, systolic blood pressure 98. Objective Vital Signs Temp Pulse Pulse Resp Resp BP Pulse Ox 06/01/21 11:30 95 H 25 H 104/52 93 06/01/21 11:00 93 H 21 105/51 95 06/01/21 10:30 88 30 H 103/51 95 06/01/21 10:00 94 H 30 H 106/52 95 06/01/21 09:30 94 H 16 103/54 96 06/01/21 09:00 95 H 24 89/41 93 06/01/21 08:30 103 H 24 82/35 92 06/01/21 08:00 125 H 25 H 104/48 93 06/01/21 07:56 91 H 95 H 25 H 103/58 94 06/01/21 07:30 130 H 25 H 119/62 93 06/01/21 07:25 100.2 F H 06/01/21 07:00 149 H 25 H 121/75 93 06/01/21 06:30 118 H 25 H 108/62 95 06/01/21 06:00 96 H 25 H 90/45 95 06/01/21 05:30 99 H 25 H 97/51 95 06/01/21 05:00 89 25 H 91/43 95 06/01/21 04:30 98 H 25 H 95/48 95 06/01/21 04:00 92 H 25 H 90 06/01/21 03:42 100.8 F H 06/01/21 03:30 96 H 25 H 91 06/01/21 03:18 99 H 89/47 89 06/01/21 03:00 105 H 25 H 86 06/01/21 02:46 123 H 25 H 98/43 94 06/01/21 02:30 120 H 25 H 98/43 90 06/01/21 02:16 119 H 25 H 121/56 91 06/01/21 02:00 138 H 27 H 121/56 90 06/01/21 01:46 136 H 56 H 130/76 91 06/01/21 01:30 143 H 46 H 130/76 90 06/01/21 01:16 139 H 63 H 134/81 88 06/01/21 01:00 137 H 55 H 134/81 90 06/01/21 00:46 130 H 55 H 96/48 91 06/01/21 00:30 99 H 25 H 96/48 89 06/01/21 00:16 102 H 26 H 90 06/01/21 00:00 99 H 25 H 88 05/31/21 23:54 99.7 F H 05/31/21 23:46 106 H 25 H 105/56 87 05/31/21 23:42 104 H 25 H 105/56 89 05/31/21 23:41 105/56 05/31/21 23:30 102 H 25 H 88 05/31/21 23:16 108 H 26 H 88 05/31/21 23:08 111 H 25 H 88/39 88 05/31/21 23:06 112 H 141/84 90 05/31/21 23:00 114 H 24 94 05/31/21 22:46 116 H 25 H 141/84 89 05/31/21 22:30 152 H 25 H 101/50 86 05/31/21 22:16 125 H 24 101/50 93 05/31/21 22:00 107 H 25 H 101/50 94 05/31/21 21:46 104 H 25 H 103/52 94 05/31/21 21:30 116 H 24 103/52 93 05/31/21 21:16 109 H 21 106/51 94 05/31/21 21:00 117 H 22 106/51 95 05/31/21 20:46 117 H 24 110/60 94 05/31/21 20:30 125 H 26 H 106/59 95 05/31/21 20:16 118 H 25 H 111/57 94 05/31/21 20:00 123 H 26 H 110/60 96 05/31/21 19:55 99.7 F H 05/31/21 19:46 121 H 25 H 111/57 95 05/31/21 19:30 124 H 22 111/57 95 05/31/21 19:16 128 H 17 108/54 96 05/31/21 19:09 124 H 25 H 05/31/21 19:08 123 H 108/54 95 05/31/21 19:00 117 H 19 108/54 95 05/31/21 18:46 119 H 13 99/49 95 05/31/21 18:30 110 H 25 H 99/49 94 05/31/21 18:16 110 H 25 H 129/77 93 05/31/21 18:00 138 H 25 H 129/77 95 05/31/21 17:45 114 H 21 99/52 94 05/31/21 17:30 117 H 24 103/52 94 05/31/21 17:15 121 H 24 107/55 94 05/31/21 17:00 110 H 20 86/38 92 05/31/21 16:45 138 H 24 121/76 95 05/31/21 16:30 121 H 19 114/67 95 05/31/21 16:15 111 H 19 107/57 94 05/31/21 16:00 99.9 F H 110 H 17 102/56 93 05/31/21 15:45 110 H 13 103/56 94 05/31/21 15:43 115 H 97/49 95 05/31/21 15:30 113 H 20 92/48 94 05/31/21 15:15 112 H 20 89/41 94 05/31/21 15:00 120 H 26 H 92/50 95 05/31/21 14:45 114 H 16 101/50 96 05/31/21 14:30 118 H 14 106/53 96 05/31/21 14:15 128 H 16 119/66 97 05/31/21 14:00 123 H 21 110/61 97 05/31/21 13:45 116 H 25 H 111/59 99 05/31/21 13:32 109 H 25 H 05/31/21 13:30 112 H 26 H 110/59 98 - Physical Examination General: No Apparent Distress, Other (Sedated on mechanical ventilator) HEENT: Positive: Normocephaly Neck: Positive: neck supple. Negative: JVD/HJR Cardiac: Positive: Reg Rate and Rhythm Lungs: Positive: Decreased Breath Sounds Neuro: Positive: Other (Unresponsive, on the vent) Abdomen: Positive: Soft Skin: Positive: Clear Extremities: Present: +1 Edema - Labs and Meds CBC 06/01/21 Range/Units 07:00 WBC 10.8 (4.5-11.0) K/mm3 RBC 3.80 (3.65-5.03) M/mm3 Hgb 11.2 L (11.8-15.2) gm/dl Hct 36.4 (35.5-45.6) % Plt Count 152 (140-440) K/mm3 Comprehensive Metabolic Panel 06/01/21 Range/Units 07:00 Sodium 137 (137-145) mmol/L Potassium 4.8 (3.6-5.0) mmol/L Chloride 103.9 (98-107) mmol/L Carbon Dioxide 22 (22-30) mmol/L BUN 59 H (9-20) mg/dL Creatinine 1.6 H (0.8-1.3) mg/dL Glucose 104 H (75-100) mg/dL Calcium 8.9 (8.4-10.2) mg/dL - Imaging and Cardiology EKG: report reviewed (Sinus tachycardia no acute ST-T wave changes) - Allied health notes Allied health notes reviewed: nursing
--- NOTE | 2021-06-01 17:52 | Progress Note ---
<JUAN C FELIX - Last Filed: 06/01/21 17:55> Assessment and Plan Assessment and plan: This is a 41-year-old male with past medical history of HTN, REVA and morbid obesity who presented to the ER with severe respiratory distress and eventually was intubated for acute respiratory failure secondatory to possible pneumonia vs pulmonary edema. Patient was also found to have an FERMIN. Patient remains intubated and in the ICU for further management. Hospital Course to Date: 05/24/2021: Patient intubated and sedated. VQ scan ordered secondary to elevated D-dimer. Cardiology consulted secondary to elevated troponin and elevated BNP. Echocardiogram ordered and pending. 05/25/2021: Patient still intubated. Responsive to commands. Hypotensive, norepinephrine increased to 15mcg. Unable to get V/Q scan due to body habitus. 05/26: Overnight patient experienced desaturation to the 80s and FiO2 was increased. This morning on ABG patient exhibited hypoxemia and FiO2 was unchanged. [facility] later increased PEEP and decrease FiO2. Nephrology was consulted due to no recovery in renal function noted. Urine lites were ordered. Hyperkalemia treated medically. 05/27: Patient remains sedated on fentanyl and propofol, [facility] will taper Solu- Medrol and repeat ABG in 1900. Patient received 40 mg of Lasix x1. Slight improvement to renal function noted 05/28: [facility] has started revatio for pulmonary hypertension, we will repeat Lasix today as patient had improvement in renal function. No acute events reported overnight. 05/29: 1900 ABG with improved hypoxia, good UOP noted from lasix. Repeat labs for am. no acute events reported overnight 05/30: FWF decreased. Garcia catheter replaced due to sediment. Family updated today at bedside. 05/31: noted to have persistent tachycardia, given fent bolus without improvement. EKG showed ST, passive leg raise by RN showed decrease in tachycardia therefore given LR. Noted increase in Cr today. MIVF for 2 liters started by [facility]. 06/01/21- Remains intubated, sedation was increased this am due to agitation, Levo was initiated due to hypotension. Patient remains on IVF, D/C once current bag is completed. D/w CCM plan to gently wean vent setting for SPO2 goal above 92%. Assessment and Plan #Neuro: Acute metabolic encephalopathy -CT head and C-spine negative for acute process -TSH WNL -Patient is sedated with propofol and fentanyl -Goal RASS 0 to -2 -Avoid delirium -Reorientation as needed -Maintain sleep-wake cycle #CV:Hypotension #Possible CHF #h/o HTN -Cardiology consulted, appreciate recommendations -05/24 echocardiogram showed mild to moderate dilated right heart chambers, LVEF 55% -ProBNP 34452 -Diuretic on hold due to worsen kidney function -Cardiology recommends conservative cardiac management -Maintain adequate perfusion -Continue rehydration with cont. IVF -Patient is back on pressors -Titrate pressors to maintain MAP above 65 -Continue AC- Eliquis #Acute hypoxemic and hypercapnic respiratory failure/ARDS #H/o sleep apnea -Patient intubated on 05/23 -vent settings:PRVC- 70%,12,25,450 -AM ABG noted -CCM consulted, appreciate recommendations -Continue IV Steroids and Nebs per CCM -VAP bundle addressed -Aspiration precaution HOB above 30 -Daily SBT and SAT trials as tolerated -Daily ABG and CXR -Continue SPO2 monitoring for SPO2 goal above 92% #GI: Transaminitis- improved #morbid obesity -NTR consult for tube feedings -Continue enteral nutrition -Continue BR- senokot -Continue PPI- Pepcid -Trend LFTs #: Acute renal failure secondary to vasomotor nephropathy -[place] [address], was diuresed, now on hold -FENa 0.41% indicating prerenal -Nephrology consulted, appreciate recommendations -Garcia catheter for strict intake and output -Avoid nephrotoxic medications -Renally dose medications -Continue IVF for now -Continue to monitor renal function and electrolytes, replete as needed #Heme: Elevated D-dimer, h/o PE/DVT -VQ scan unable to be performed due to patient being intubated -CTA head unable to be performed due to renal function and size -restarted on home eliquis -SCDs to bilateral lower extremity while in bed -Echocardiogram shows no right heart strain -Trend CBC -Transfuse for hemoglobin less than 7 -Bilateral lower extremity Doppler ultrasound negative for DVT #ID: CAP #leukopenia- improved #coag negative Staphylococcus in blood culture / -CT showed right upper lobe pneumonia -05/23 UC, tracheal aspirate no growth to date -05/23 blood culture with coag negative staph in 1 of 2 bottles -WBcs 10.8, patient remains afebrile -Completed IV abx course- cefepime and azithromycin - Daily CBC monitor - Consider ID consult if febrile or/and if leukocytosis occur Endo: Glycemic control -Accu-Cheks every 6 while on tube feedings -SSI if hyperglycemic -Avoid hypoglycemia -Target blood glucose while critically ill less than 180 The high probability of a clinically significant, sudden or life threatening deterioration of the [Neuro,CV,pulm] system(s) required my full and direct attention, intervention and personal management. The aggregate critical care time was [60] minutes. This time is in addition to time spent performing reported procedures but includes the following: [x] Data Review and interpretation [x] Patient assessment and monitoring of vital signs [x] Documentation [x] Medication orders and management Disposition Plan: ICU Total Time Spent with Patient (Minutes): 60 History Interval history: Patient seen and examined at the bedside. Remains on the vent and sedated on propofol and fentanyl. Increased agitation this am, sedation was increased, patient now hypotensive requiring low dose Levo. Hospitalist Physical - Constitutional Vitals: Temp Pulse Resp BP Pulse Ox 99.6 F 109 H 25 H 96/46 92 06/01/21 15:51 06/01/21 16:30 06/01/21 16:30 06/01/21 16:30 06/01/21 16:30 General appearance: Present: no acute distress, other (Intubated/Sedated) - EENT Eyes: Present: PERRL - Respiratory Respiratory effort: normal Respiratory: bilateral: diminished - Cardiovascular Rhythm: regular Heart Sounds: Present: S1 & S2 - Extremities Extremities: no ischemia, pulses intact, pulses symmetrical Extremity abnormal: edema - Peripheral Assessment Generalized Edema Type: Non-pitting Edema Degree: 1+ Capillary Refill: < 3 seconds Skin Temperature: Warm Peripheral Pulses: within normal limits - Abdominal General gastrointestinal: soft, non-tender, normal bowel sounds - Integumentary Integumentary: Present: clear, warm, dry - Psychiatric Psychiatric: other (Intubated/Sedated) - Neurologic Neurologic: other (Intubated/Sedated) HEART Score - HEART Score Troponin: Troponin T 0.038 ng/mL (0.00-0.029) H 05/23/21 15:09 Results - Labs CBC & Chem 7: 06/01/21 07:00 06/01/21 07:00 Labs: Laboratory Last Values WBC 10.8 K/mm3 (4.5-11.0) 06/01/21 07:00 RBC 3.80 M/mm3 (3.65-5.03) 06/01/21 07:00 Hgb 11.2 gm/dl (11.8-15.2) L 06/01/21 07:00 Hct 36.4 % (35.5-45.6) 06/01/21 07:00 MCV 96 fl (84-94) H 06/01/21 07:00 MCH 30 pg (28-32) 06/01/21 07:00 MCHC 31 % (32-34) L 06/01/21 07:00 RDW 20.6 % (13.2-15.2) H 06/01/21 07:00 Plt Count 152 K/mm3 (140-440) 06/01/21 07:00 Lymph % (Auto) 5.9 % (13.4-35.0) L 05/23/21 15:09 [place] % (Auto) 6.1 % (0.0-7.3) 05/23/21 15:09 Eos % (Auto) 0.2 % (0.0-4.3) 05/23/21 15:09 Baso % (Auto) 0.3 % (0.0-1.8) 05/23/21 15:09 Lymph # (Auto) 0.6 K/mm3 (1.2-5.4) L 05/23/21 15:09 [place] # (Auto) 0.6 K/mm3 (0.0-0.8) 05/23/21 15:09 Eos # (Auto) 0.0 K/mm3 (0.0-0.4) 05/23/21 15:09 Baso # (Auto) 0.0 K/mm3 (0.0-0.1) 05/23/21 15:09 Add Manual Diff Complete 05/24/21 04:55 Total Counted 100 05/24/21 04:55 Seg Neutrophils % Method Consultant 05/24/21 04:55 Seg Neuts % (Manual) 97.0 % (40.0-70.0) H 05/24/21 04:55 Lymphocytes % (Manual) 3.0 % (13.4-35.0) L 05/24/21 04:55 Nucleated RBC % Not Reportable 05/24/21 04:55 Seg Neutrophils # 8.2 K/mm3 (1.8-7.7) H 05/23/21 15:09 Seg Neutrophils # Man 8.4 K/mm3 (1.8-7.7) H 05/24/21 04:55 Band Neutrophils # 0.0 K/mm3 05/24/21 04:55 Lymphocytes # (Manual) 0.3 K/mm3 (1.2-5.4) L 05/24/21 04:55 Abs React Lymphs (Man) 0.0 K/mm3 05/24/21 04:55 Monocytes # (Manual) 0.0 K/mm3 (0.0-0.8) 05/24/21 04:55 Eosinophils # (Manual) 0.0 K/mm3 (0.0-0.4) 05/24/21 04:55 Basophils # (Manual) 0.0 K/mm3 (0.0-0.1) 05/24/21 04:55 Metamyelocytes # 0.0 K/mm3 05/24/21 04:55 Myelocytes # 0.0 K/mm3 05/24/21 04:55 Promyelocytes # 0.0 K/mm3 05/24/21 04:55 Blast Cells # 0.0 K/mm3 05/24/21 04:55 WBC Morphology Not Reportable 05/24/21 04:55 Hypersegmented Neuts Not Reportable 05/24/21 04:55 Hyposegmented Neuts Not Reportable 05/24/21 04:55 Hypogranular Neuts Not Reportable 05/24/21 04:55 Smudge Cells Not Reportable 05/24/21 04:55 Toxic Granulation Not Reportable 05/24/21 04:55 Toxic Vacuolation Not Reportable 05/24/21 04:55 Dohle Bodies Not Reportable 05/24/21 04:55 Pelger-Huet Anomaly Not Reportable 05/24/21 04:55 Cynthia Rods Not Reportable 05/24/21 04:55 Platelet Estimate Consistent w auto 05/24/21 04:55 Clumped Platelets Not Reportable 05/24/21 04:55 Plt Clumps, EDTA Not Reportable 05/24/21 04:55 Large Platelets Not Reportable 05/24/21 04:55 Giant Platelets Not Reportable 05/24/21 04:55 Platelet Satelliting Not Reportable 05/24/21 04:55 Plt Morphology Comment Not Reportable 05/24/21 04:55 RBC Morphology Not Reportable 05/24/21 04:55 Dimorphic RBCs Not Reportable 05/24/21 04:55 Polychromasia Not Reportable 05/24/21 04:55 Hypochromasia Not Reportable 05/24/21 04:55 Poikilocytosis Not Reportable 05/24/21 04:55 Anisocytosis 1+ 05/24/21 04:55 Microcytosis Not Reportable 05/24/21 04:55 Macrocytosis Not Reportable 05/24/21 04:55 Spherocytes Not Reportable 05/24/21 04:55 Pappenheimer Bodies Not Reportable 05/24/21 04:55 Sickle Cells Not Reportable 05/24/21 04:55 Target Cells Not Reportable 05/24/21 04:55 Tear Drop Cells Not Reportable 05/24/21 04:55 Ovalocytes Not Reportable 05/24/21 04:55 Helmet Cells Not Reportable 05/24/21 04:55 [place] Bodies Not Reportable 05/24/21 04:55 [place] Rings Not Reportable 05/24/21 04:55 Luis Cells Not Reportable 05/24/21 04:55 Bite Cells Not Reportable 05/24/21 04:55 Crenated Cell Not Reportable 05/24/21 04:55 Elliptocytes Not Reportable 05/24/21 04:55 Acanthocytes (Spur) Not Reportable 05/24/21 04:55 Rouleaux Not Reportable 05/24/21 04:55 Hemoglobin C Crystals Not Reportable 05/24/21 04:55 Schistocytes Not Reportable 05/24/21 04:55 Malaria parasites Not Reportable 05/24/21 04:55 Uli Bodies Not Reportable 05/24/21 04:55 Hem Pathologist Commnt No 05/24/21 04:55 PT 15.3 Sec. (12.2-14.9) H 05/29/21 13:40 INR 1.09 (0.87-1.13) 05/29/21 13:40 APTT 25.7 Sec. (24.2-36.6) 05/29/21 13:40 D-Dimer 4444.85 ng/mlDDU (0-234) H 05/23/21 15:09 ABG pH 7.351 (7.320-7.450) 06/01/21 03:06 POC ABG pCO2 46.5 mmHg (32.0-48.0) 06/01/21 03:06 ABG pCO2 48.1 mm Hg 05/30/21 09:22 POC ABG pO2 55.0 mmHg (83-108) L 06/01/21 03:06 ABG pO2 107.0 mm Hg (80.0-90.0) H 05/30/21 09:22 POC ABG HCO3 25.2 06/01/21 03:06 ABG HCO3 24.4 mmol/L (20.0-26.0) 05/30/21 09:22 ABG O2 Saturation 88.5 (0-100) 06/01/21 03:06 ABG O2 Content 16.8 (0.0-44) 05/30/21 09:22 POC ABG Base Excess -0.7 06/01/21 03:06 ABG Base Excess -1.9 mmol/L (-2.0-3.0) 05/30/21 09:22 ABG Hemoglobin 10.9 (12.0-17.5) L 06/01/21 03:06 ABG Oxyhemoglobin 87.5 (94-98) L 06/01/21 03:06 ABG Carboxyhemoglobin 1.7 % (0.0-5.0) 05/30/21 09:22 ABG Methemoglobin 0.3 (0.0-1.5) 06/01/21 03:06 ABG Sodium 127.4 mmol/L (136.0-145.0) L 06/01/21 03:06 ABG Potassium 4.6 mmol/L (3.40-4.50) H 06/01/21 03:06 ABG Chloride 108.0 mmol/L (98-107) H 06/01/21 03:06 ABG Glucose 108 mg/dL (65-95) H 06/01/21 03:06 Oxyhemoglobin 95.5 % (95.0-99.0) 05/30/21 09:22 Carboxyhemoglobin 0.8 (0.5-1.5) 06/01/21 03:06 FiO2 65 % 05/30/21 09:22 FiO2 % 60.0 06/01/21 03:06 Sodium 137 mmol/L (137-145) 06/01/21 07:00 Potassium 4.8 mmol/L (3.6-5.0) 06/01/21 07:00 Chloride 103.9 mmol/L (98-107) 06/01/21 07:00 Carbon Dioxide 22 mmol/L (22-30) 06/01/21 07:00 Anion Gap 16 mmol/L 06/01/21 07:00 BUN 59 mg/dL (9-20) H 06/01/21 07:00 Creatinine 1.6 mg/dL (0.8-1.3) H 06/01/21 07:00 Estimated GFR 57 ml/min 06/01/21 07:00 BUN/Creatinine Ratio 37 % 06/01/21 07:00 Glucose 104 mg/dL (75-100) H 06/01/21 07:00 POC Glucose 106 mg/dL (70-105) H 06/01/21 17:09 Lactic Acid 1.50 mmol/L (0.7-2.0) 05/23/21 15:09 Calcium 8.9 mg/dL (8.4-10.2) 06/01/21 07:00 Phosphorus 2.90 mg/dL (2.5-4.5) 05/28/21 05:30 Magnesium 2.40 mg/dL (1.7-2.3) H 05/28/21 05:30 Total Bilirubin 0.60 mg/dL (0.1-1.2) 05/26/21 Unknown AST 64 units/L (5-40) H 05/26/21 Unknown ALT 448 units/L (7-56) H 05/26/21 Unknown Alkaline Phosphatase 58 units/L (35-129) 05/26/21 Unknown Ammonia 30.0 umol/L (25-60) 05/24/21 04:55 Total Creatine Kinase 48 units/L (55-170) L 05/23/21 15:09 Troponin T 0.038 ng/mL (0.00-0.029) H 05/23/21 15:09 C-Reactive Protein 10.00 mg/dL (0.00-1.30) H 05/23/21 19:10 NT-Pro-B Natriuret Pep 52974 pg/mL (0-450) H 05/23/21 15:09 Total Protein 7.0 g/dL (6.3-8.2) 05/26/21 Unknown Albumin 3.4 g/dL (3.9-5) L 05/26/21 Unknown Albumin/Globulin Ratio 0.9 % 05/26/21 Unknown Triglycerides 94 mg/dL (2-149) 05/30/21 07:47 Cholesterol 106 mg/dL (50-199) 05/23/21 15:09 LDL Cholesterol Direct 58 mg/dL (50-130) 05/23/21 15:09 HDL Cholesterol 29 mg/dL (40-59) L 05/23/21 15:09 Cholesterol/HDL Ratio 3.65 % 05/23/21 15:09 Procalcitonin 0.83 ng/mL (<0.15) 05/23/21 15:09 TSH 2.380 mlU/mL (0.270-4.200) 05/23/21 15:09 Arterial Blood Glucose 108 mg/dL (65-95) H 06/01/21 03:06 Arterial Blood Ionized Calcium 4.9 mg/dL (4.6-5.3) 05/31/21 Unknown Urine Color [place] (Yellow) 05/23/21 Unknown Urine Turbidity Slightly-cloudy (Clear) 05/23/21 Unknown Urine pH 5.0 (5.0-7.0) 05/23/21 Unknown Ur Specific [place] 1.014 (1.003-1.030) 05/23/21 Unknown Urine Protein 30 mg/dl mg/dL (Negative) 05/23/21 Unknown Urine Glucose (UA) Neg mg/dL (Negative) 05/23/21 Unknown Urine Ketones Neg mg/dL (Negative) 05/23/21 Unknown Urine Blood Mod (Negative) 05/23/21 Unknown Urine Nitrite Neg (Negative) 05/23/21 Unknown Urine Bilirubin Neg (Negative) 05/23/21 Unknown Urine Urobilinogen 4.0 mg/dL (<2.0) 05/23/21 Unknown Ur Leukocyte Esterase Tr (Negative) 05/23/21 Unknown Urine WBC (Auto) 34.0 /HPF (0.0-6.0) H 05/23/21 Unknown Urine RBC (Auto) 20.0 /HPF (0.0-6.0) 05/23/21 Unknown U Epithel Cells (Auto) 2.0 /HPF (0-13.0) 05/23/21 Unknown Urine Bacteria (Auto) 1+ /HPF (Negative) 05/23/21 Unknown Urine Mucus Few /HPF 05/23/21 Unknown Urine Osmolality 612 Mosm/kg 05/26/21 Unknown Urine Creatinine 128.6 mg/dL (0.1-20.0) H 05/26/21 Unknown Urine Sodium 37 mmol/L 05/26/21 Unknown Urine Potassium 45.15 mmol/L 05/26/21 Unknown Urine Urea Nitrogen 989 05/26/21 Unknown Nasal Screen MRSA (PCR) Positive (Negative) 05/30/21 12:00 Salicylates < 0.3 mg/dL (2.8-20.0) L 05/23/21 15:09 Urine Opiates Screen Negative 05/23/21 Unknown Urine Methadone Screen Negative 05/23/21 Unknown Acetaminophen 5.0 ug/mL (10.0-30.0) L 05/23/21 15:09 Ur Barbiturates Screen Negative 05/23/21 Unknown Ur Phencyclidine Scrn Negative 05/23/21 Unknown Ur Amphetamines Screen Negative 05/23/21 Unknown U Benzodiazepines Scrn Negative 05/23/21 Unknown Urine Cocaine Screen Negative 05/23/21 Unknown U Marijuana (THC) Screen Negative 05/23/21 Unknown Drugs of Abuse Note Disclamer 05/23/21 Unknown Plasma/Serum Alcohol < 0.01 % (0-0.07) 05/23/21 15:09 Coronavirus (PCR) Negative (Negative) 05/23/21 Unknown Blood Type O POSITIVE 05/23/21 15:01 Antibody Screen Negative 05/23/21 15:01 Garcia/IV: Voiding Method Indwelling Catheter Active Medications - Current Medications Current Medications: Generic Name Dose Route Start Last Admin Trade Name Freq PRN Reason Stop Dose Admin Acetaminophen 650 mg 05/23/21 20:42 Acetaminophen 325 Mg Tab PO Q4H PRN Pain MILD(1-3)/Fever >100.5/CASTORENA Albuterol 2.5 mg 05/23/21 21:11 Albuterol 2.5 Mg/3 Ml Nebu IH Q4HRT PRN Shortness Of Breath Albuterol/Ipratropium 1 ampul 05/29/21 08:00 06/01/21 13:31 Ipratropium/Albuterol Sulfate 3 Ml Ampul.Neb IH 1 ampul TIDRT ROSEMARIE Administration Lipase/Protease/Amylase 1 each 05/24/21 10:14 Lipase 10,500/Protease 25,000/Amylase 43,750 (Units) Dr Cap FEEDTUBE PRN PRN For Clogged Feeding Tube Apixaban 2.5 mg 05/29/21 13:00 06/01/21 09:37 Apixaban 2.5 Mg Tab PO 2.5 mg Q12HR ROSEMARIE Administration Protocol Famotidine 20 mg 05/27/21 10:00 06/01/21 09:37 Famotidine 20 Mg Tab FEEDTUBE 20 mg BID ROSEMARIE Administration Fentanyl 50 mcg 05/23/21 12:34 05/31/21 10:20 Fentanyl 100 Mcg/2 Ml Inj IV 50 mcg Q10MIN PRN Administration ANALGESIA Hydrophilic Ointment 1 applic 05/23/21 12:34 Lip Therapy Vaseline TP Q2HR PRN Dry Lips Fentanyl Citrate 2,000 mcg in 100 mls @ 8.528 mls/hr 05/23/21 13:00 06/01/21 13:48 Fentanyl Drip Premix IV 2 mcg/kg/hr TITR ROSEMARIE 17.055 mls/hr Administration Protocol 1 MCG/KG/HR NORepinephrine/NS 8 MG-250 ML 8 mg in 250 mls @ 3.75 mls/hr 05/24/21 20:00 06/01/21 07:30 Norepinephrine/Ns 8 Mg-250 Ml (Double Conc) IV 2.5 mcg/min TITRATE ROSEMARIE 4.688 mls/hr Administration Protocol 2 MCG/MIN Propofol 1,000 mg in 100 mls @ 5.117 mls/hr 05/25/21 19:00 06/01/21 17:18 Diprivan 10 Mg/Ml IV 10 mcg/kg/min TITR ROSEMARIE 10.233 mls/hr Administration Protocol 5 MCG/KG/MIN Sodium Chloride 1,000 mls @ 75 mls/hr 05/31/21 14:30 06/01/21 03:42 Nacl 0.9% 1000 Ml IV 06/02/21 03:49 75 mls/hr DIRECT ROSEMARIE Administration Multi-Ingred Cream/Lotion/Oil/Oint 1 applic 05/23/21 12:34 05/30/21 22:14 Mineral Oil/Petrolatum, White Ophth Oint 3.5 Gm OU 1 applic Q4HR PRN Administration Dry Eye(s) Ondansetron HCl 4 mg 05/23/21 20:42 Ondansetron 4 Mg/2 Ml Inj IV Q8H PRN Nausea And Vomiting Senna/Docusate Sodium 1 tab 05/23/21 22:00 06/01/21 09:37 Sennosides/Docusate Sodium 8.6/50 Mg Tab FEEDTUBE 1 tab BID ROSEMARIE Administration Sildenafil Citrate 20 mg 05/28/21 20:00 06/01/21 13:48 Sildenafil 20 Mg Tab PO 20 mg TID ROSEMARIE Administration Simple Syrup 15 ml 05/24/21 10:14 Simple Syrup 15 Ml FEEDTUBE PRN PRN Hypoglycemia Simple Syrup 30 ml 05/24/21 10:14 Simple Syrup 15 Ml FEEDTUBE PRN PRN Hypoglycemia Sodium Bicarbonate 325 mg 05/24/21 10:14 Sodium Bicarbonate 325 Mg Tab FEEDTUBE PRN PRN For Clogged Feeding Tube Sodium Chloride 10 ml 05/23/21 22:00 06/01/21 09:38 Sodium Chloride 0.9% 10 Ml Flush Syringe IV 10 ml BID ROSEMARIE Administration Sodium Chloride 10 ml 05/23/21 20:42 Sodium Chloride 0.9% 10 Ml Flush Syringe IV PRN PRN LINE FLUSH Nutrition/Malnutrition Assess - Dietary Evaluation Nutrition/Malnutrition Findings: Nutrition Notes Start: 05/24/21 09:53 Freq: Status: Active Protocol: Document 05/28/21 14:30 GB (Rec: 05/28/21 14:44 GB [email or web address]) Nutrition Notes Initial or Follow up Reassessment Current Diagnosis Acute Kidney Injury, Hypertension,Respiratory Failure Other Pertinent Diagnosis SIRS, encephalopathy, pneu, transaminitis Current Diet NPO, Tube Feeding Nepro @ 45m/ hr Labs/Tests 05/28: BUN 53, Creatinine 1.6, glucose 118, Ca 8, Mg 2.4 Pertinent Medications Fentanyl Citrate, Norepenephrin/NS 8 Mg 250, Propofol 30.699 ml/hr (810kcal ) Height 5 ft 8 in Weight 170.551 kg [place] Body Weight (kg) 70.00 BMI 57.2 Weight change and time frame No new weights recorded at time of assessment Weight Status Morbidly Obese Subjective/Other Information Pt continues Intubated/sedated 05/28: Chest Xray note: tubes in satisfactory position, No significant changes 05/28: MD note unresponsive on vent BM: no record at time of assessment Percent of energy/protein needs met: TF at goal meets 75% or greater of minimal estimated energy needs Burn Absent Trauma Absent GI Symptoms Other Difficulty In Swallowing Food Allergy No Skin Integrity/Comment wound to left toe Current % PO Other Minimum of two criteria No #1 Nutrition Diagnosis Swallowing difficulty Comments: 05/25: intubation/sedation continues. TF started 05/28: intubation/sedation continues. TF Nepro @ goal 45ml/hr Etiology ARF As Evidenced by Signs and Symptoms Intubated/sedated Diagnosis Progress(for reassessment Continues documentation) Is patient on ventilator? Yes Is Patient Ambulatory and/or Out of Bed No REE-([facility]-confined to bed) 3092.088 Kcal/Kg value to use for calculation 12 Approximate Energy Requirements Using 2047 kcal/Kg Calculation Used for Recommendations Kcal/kg Additional Notes Protein: 0.6g/kg or greater @ 170kg Fluid: 1 ml/kcal or per MD Nutrition Intervention Change Diet Order: Continue NPO, Tube feeding Nutrition Support: Nepro 1.8 at 45 ml/hr Flush 175 ml q4h or per MD Total free water: TF@goal + flush = 1835ml Kcal 1,950 Protein (gm) 88 Carbohydrates (gm) 174 Fat (gm) 104 Fluid (mL) 788 Fiber (gm) 14 % RDI: 100%kcal / 86%pro Goal #1 Meet at least 75% or greater of EEN via TF 05/25: met, continues 05/28: met, continues Goal #2 TF (Nepro) at goal rate (45ml/ hr) by f/u 05/25: TF started 05/28: TF at goal. met, continues Follow-Up By: 06/02/21 Additional Comments F/u: TF tolerance, renal labs, vent status <TATO BUENO - Last Filed: 06/02/21 10:20> Assessment and Plan Assessment and plan: I saw and evaluated the patient. Discussed with the nurse practitioner and agree with their findings and plan as documented in this note. Hospitalist Physical - Constitutional Vitals: Temp Pulse Resp BP Pulse Ox 99.9 F H 101 H 23 94/47 92 06/02/21 07:32 06/02/21 10:00 06/02/21 10:00 06/02/21 10:00 06/02/21 10:00 HEART Score - HEART Score Troponin: Troponin T 0.038 ng/mL (0.00-0.029) H 05/23/21 15:09 Results - Labs CBC & Chem 7: 06/02/21 04:23 06/02/21 04:23 Labs: Laboratory Last Values WBC 9.9 K/mm3 (4.5-11.0) 06/02/21 04:23 RBC 3.48 M/mm3 (3.65-5.03) L 06/02/21 04:23 Hgb 10.1 gm/dl (11.8-15.2) L 06/02/21 04:23 Hct 33.1 % (35.5-45.6) L 06/02/21 04:23 MCV 95 fl (84-94) H 06/02/21 04:23 MCH 29 pg (28-32) 06/02/21 04:23 MCHC 31 % (32-34) L 06/02/21 04:23 RDW 19.9 % (13.2-15.2) H 06/02/21 04:23 Plt Count 156 K/mm3 (140-440) 06/02/21 04:23 Lymph % (Auto) 5.9 % (13.4-35.0) L 05/23/21 15:09 [place] % (Auto) 6.1 % (0.0-7.3) 05/23/21 15:09 Eos % (Auto) 0.2 % (0.0-4.3) 05/23/21 15:09 Baso % (Auto) 0.3 % (0.0-1.8) 05/23/21 15:09 Lymph # (Auto) 0.6 K/mm3 (1.2-5.4) L 05/23/21 15:09 [place] # (Auto) 0.6 K/mm3 (0.0-0.8) 05/23/21 15:09 Eos # (Auto) 0.0 K/mm3 (0.0-0.4) 05/23/21 15:09 Baso # (Auto) 0.0 K/mm3 (0.0-0.1) 05/23/21 15:09 Add Manual Diff Complete 05/24/21 04:55 Total Counted 100 05/24/21 04:55 Seg Neutrophils % Method Consultant 05/24/21 04:55 Seg Neuts % (Manual) 97.0 % (40.0-70.0) H 05/24/21 04:55 Lymphocytes % (Manual) 3.0 % (13.4-35.0) L 05/24/21 04:55 Nucleated RBC % Not Reportable 05/24/21 04:55 Seg Neutrophils # 8.2 K/mm3 (1.8-7.7) H 05/23/21 15:09 Seg Neutrophils # Man 8.4 K/mm3 (1.8-7.7) H 05/24/21 04:55 Band Neutrophils # 0.0 K/mm3 05/24/21 04:55 Lymphocytes # (Manual) 0.3 K/mm3 (1.2-5.4) L 05/24/21 04:55 Abs React Lymphs (Man) 0.0 K/mm3 05/24/21 04:55 Monocytes # (Manual) 0.0 K/mm3 (0.0-0.8) 05/24/21 04:55 Eosinophils # (Manual) 0.0 K/mm3 (0.0-0.4) 05/24/21 04:55 Basophils # (Manual) 0.0 K/mm3 (0.0-0.1) 05/24/21 04:55 Metamyelocytes # 0.0 K/mm3 05/24/21 04:55 Myelocytes # 0.0 K/mm3 05/24/21 04:55 Promyelocytes # 0.0 K/mm3 05/24/21 04:55 Blast Cells # 0.0 K/mm3 05/24/21 04:55 WBC Morphology Not Reportable 05/24/21 04:55 Hypersegmented Neuts Not Reportable 05/24/21 04:55 Hyposegmented Neuts Not Reportable 05/24/21 04:55 Hypogranular Neuts Not Reportable 05/24/21 04:55 Smudge Cells Not Reportable 05/24/21 04:55 Toxic Granulation Not Reportable 05/24/21 04:55 Toxic Vacuolation Not Reportable 05/24/21 04:55 Dohle Bodies Not Reportable 05/24/21 04:55 Pelger-Huet Anomaly Not Reportable 05/24/21 04:55 Cynthia Rods Not Reportable 05/24/21 04:55 Platelet Estimate Consistent w auto 05/24/21 04:55 Clumped Platelets Not Reportable 05/24/21 04:55 Plt Clumps, EDTA Not Reportable 05/24/21 04:55 Large Platelets Not Reportable 05/24/21 04:55 Giant Platelets Not Reportable 05/24/21 04:55 Platelet Satelliting Not Reportable 05/24/21 04:55 Plt Morphology Comment Not Reportable 05/24/21 04:55 RBC Morphology Not Reportable 05/24/21 04:55 Dimorphic RBCs Not Reportable 05/24/21 04:55 Polychromasia Not Reportable 05/24/21 04:55 Hypochromasia Not Reportable 05/24/21 04:55 Poikilocytosis Not Reportable 05/24/21 04:55 Anisocytosis 1+ 05/24/21 04:55 Microcytosis Not Reportable 05/24/21 04:55 Macrocytosis Not Reportable 05/24/21 04:55 Spherocytes Not Reportable 05/24/21 04:55 Pappenheimer Bodies Not Reportable 05/24/21 04:55 Sickle Cells Not Reportable 05/24/21 04:55 Target Cells Not Reportable 05/24/21 04:55 Tear Drop Cells Not Reportable 05/24/21 04:55 Ovalocytes Not Reportable 05/24/21 04:55 Helmet Cells Not Reportable 05/24/21 04:55 [place] Bodies Not Reportable 05/24/21 04:55 [place] Rings Not Reportable 05/24/21 04:55 Luis Cells Not Reportable 05/24/21 04:55 Bite Cells Not Reportable 05/24/21 04:55 Crenated Cell Not Reportable 05/24/21 04:55 Elliptocytes Not Reportable 05/24/21 04:55 Acanthocytes (Spur) Not Reportable 05/24/21 04:55 Rouleaux Not Reportable 05/24/21 04:55 Hemoglobin C Crystals Not Reportable 05/24/21 04:55 Schistocytes Not Reportable 05/24/21 04:55 Malaria parasites Not Reportable 05/24/21 04:55 Uli Bodies Not Reportable 05/24/21 04:55 Hem Pathologist Commnt No 05/24/21 04:55 PT 15.3 Sec. (12.2-14.9) H 05/29/21 13:40 INR 1.09 (0.87-1.13) 05/29/21 13:40 APTT 25.7 Sec. (24.2-36.6) 05/29/21 13:40 D-Dimer 4444.85 ng/mlDDU (0-234) H 05/23/21 15:09 ABG pH 7.351 (7.320-7.450) 06/01/21 03:06 POC ABG pCO2 46.5 mmHg (32.0-48.0) 06/01/21 03:06 ABG pCO2 48.1 mm Hg 05/30/21 09:22 POC ABG pO2 55.0 mmHg (83-108) L 06/01/21 03:06 ABG pO2 107.0 mm Hg (80.0-90.0) H 05/30/21 09:22 POC ABG HCO3 25.2 06/01/21 03:06 ABG HCO3 24.4 mmol/L (20.0-26.0) 05/30/21 09:22 ABG O2 Saturation 88.5 (0-100) 06/01/21 03:06 ABG O2 Content 16.8 (0.0-44) 05/30/21 09:22 POC ABG Base Excess -0.7 06/01/21 03:06 ABG Base Excess -1.9 mmol/L (-2.0-3.0) 05/30/21 09:22 ABG Hemoglobin 10.9 (12.0-17.5) L 06/01/21 03:06 ABG Oxyhemoglobin 87.5 (94-98) L 06/01/21 03:06 ABG Carboxyhemoglobin 1.7 % (0.0-5.0) 05/30/21 09:22 ABG Methemoglobin 0.3 (0.0-1.5) 06/01/21 03:06 ABG Sodium 127.4 mmol/L (136.0-145.0) L 06/01/21 03:06 ABG Potassium 4.6 mmol/L (3.40-4.50) H 06/01/21 03:06 ABG Chloride 108.0 mmol/L (98-107) H 06/01/21 03:06 ABG Glucose 108 mg/dL (65-95) H 06/01/21 03:06 Oxyhemoglobin 95.5 % (95.0-99.0) 05/30/21 09:22 Carboxyhemoglobin 0.8 (0.5-1.5) 06/01/21 03:06 FiO2 65 % 05/30/21 09:22 FiO2 % 60.0 06/01/21 03:06 Sodium 138 mmol/L (137-145) 06/02/21 04:23 Potassium 4.9 mmol/L (3.6-5.0) 06/02/21 04:23 Chloride 105.7 mmol/L (98-107) 06/02/21 04:23 Carbon Dioxide 22 mmol/L (22-30) 06/02/21 04:23 Anion Gap 15 mmol/L 06/02/21 04:23 BUN 61 mg/dL (9-20) H 06/02/21 04:23 Creatinine 1.7 mg/dL (0.8-1.3) H 06/02/21 04:23 Estimated GFR 53 ml/min 06/02/21 04:23 BUN/Creatinine Ratio 36 % 06/02/21 04:23 Glucose 119 mg/dL (75-100) H 06/02/21 04:23 POC Glucose 107 mg/dL (70-105) H 06/02/21 05:40 Lactic Acid 1.50 mmol/L (0.7-2.0) 05/23/21 15:09 Calcium 8.7 mg/dL (8.4-10.2) 06/02/21 04:23 Phosphorus 2.90 mg/dL (2.5-4.5) 05/28/21 05:30 Magnesium 2.40 mg/dL (1.7-2.3) H 05/28/21 05:30 Total Bilirubin 0.60 mg/dL (0.1-1.2) 05/26/21 Unknown AST 64 units/L (5-40) H 05/26/21 Unknown ALT 448 units/L (7-56) H 05/26/21 Unknown Alkaline Phosphatase 58 units/L (35-129) 05/26/21 Unknown Ammonia 30.0 umol/L (25-60) 05/24/21 04:55 Total Creatine Kinase 48 units/L (55-170) L 05/23/21 15:09 Troponin T 0.038 ng/mL (0.00-0.029) H 05/23/21 15:09 C-Reactive Protein 10.00 mg/dL (0.00-1.30) H 05/23/21 19:10 NT-Pro-B Natriuret Pep 11020 pg/mL (0-450) H 05/23/21 15:09 Total Protein 7.0 g/dL (6.3-8.2) 05/26/21 Unknown Albumin 3.4 g/dL (3.9-5) L 05/26/21 Unknown Albumin/Globulin Ratio 0.9 % 05/26/21 Unknown Triglycerides 94 mg/dL (2-149) 05/30/21 07:47 Cholesterol 106 mg/dL (50-199) 05/23/21 15:09 LDL Cholesterol Direct 58 mg/dL (50-130) 05/23/21 15:09 HDL Cholesterol 29 mg/dL (40-59) L 05/23/21 15:09 Cholesterol/HDL Ratio 3.65 % 05/23/21 15:09 Procalcitonin 0.83 ng/mL (<0.15) 05/23/21 15:09 TSH 2.380 mlU/mL (0.270-4.200) 05/23/21 15:09 Arterial Blood Glucose 108 mg/dL (65-95) H 06/01/21 03:06 Arterial Blood Ionized Calcium 4.9 mg/dL (4.6-5.3) 05/31/21 Unknown Urine Color [place] (Yellow) 05/23/21 Unknown Urine Turbidity Slightly-cloudy (Clear) 05/23/21 Unknown Urine pH 5.0 (5.0-7.0) 05/23/21 Unknown Ur Specific [place] 1.014 (1.003-1.030) 05/23/21 Unknown Urine Protein 30 mg/dl mg/dL (Negative) 05/23/21 Unknown Urine Glucose (UA) Neg mg/dL (Negative) 05/23/21 Unknown Urine Ketones Neg mg/dL (Negative) 05/23/21 Unknown Urine Blood Mod (Negative) 05/23/21 Unknown Urine Nitrite Neg (Negative) 05/23/21 Unknown Urine Bilirubin Neg (Negative) 05/23/21 Unknown Urine Urobilinogen 4.0 mg/dL (<2.0) 05/23/21 Unknown Ur Leukocyte Esterase Tr (Negative) 05/23/21 Unknown Urine WBC (Auto) 34.0 /HPF (0.0-6.0) H 05/23/21 Unknown Urine RBC (Auto) 20.0 /HPF (0.0-6.0) 05/23/21 Unknown U Epithel Cells (Auto) 2.0 /HPF (0-13.0) 05/23/21 Unknown Urine Bacteria (Auto) 1+ /HPF (Negative) 05/23/21 Unknown Urine Mucus Few /HPF 05/23/21 Unknown Urine Osmolality 612 Mosm/kg 05/26/21 Unknown Urine Creatinine 128.6 mg/dL (0.1-20.0) H 05/26/21 Unknown Urine Sodium 37 mmol/L 05/26/21 Unknown Urine Potassium 45.15 mmol/L 05/26/21 Unknown Urine Urea Nitrogen 989 05/26/21 Unknown Nasal Screen MRSA (PCR) Positive (Negative) 05/30/21 12:00 Salicylates < 0.3 mg/dL (2.8-20.0) L 05/23/21 15:09 Urine Opiates Screen Negative 05/23/21 Unknown Urine Methadone Screen Negative 05/23/21 Unknown Acetaminophen 5.0 ug/mL (10.0-30.0) L 05/23/21 15:09 Ur Barbiturates Screen Negative 05/23/21 Unknown Ur Phencyclidine Scrn Negative 05/23/21 Unknown Ur Amphetamines Screen Negative 05/23/21 Unknown U Benzodiazepines Scrn Negative 05/23/21 Unknown Urine Cocaine Screen Negative 05/23/21 Unknown U Marijuana (THC) Screen Negative 05/23/21 Unknown Drugs of Abuse Note Disclamer 05/23/21 Unknown Plasma/Serum Alcohol < 0.01 % (0-0.07) 05/23/21 15:09 Coronavirus (PCR) Negative (Negative) 05/23/21 Unknown Blood Type O POSITIVE 05/23/21 15:01 Antibody Screen Negative 05/23/21 15:01 Garcia/IV: Voiding Method Indwelling Catheter Active Medications - Current Medications Current Medications: Generic Name Dose Route Start Last Admin Trade Name Freq PRN Reason Stop Dose Admin Acetaminophen 650 mg 05/23/21 20:42 06/02/21 09:14 Acetaminophen 325 Mg Tab PO 650 mg Q4H PRN Administration Pain MILD(1-3)/Fever >100.5/CASTORE[place] Albuterol 2.5 mg 05/23/21 21:11 Albuterol 2.5 Mg/3 Ml Nebu IH Q4HRT PRN Shortness Of Breath Albuterol/Ipratropium 1 ampul 05/29/21 08:00 06/02/21 07:23 Ipratropium/Albuterol Sulfate 3 Ml Ampul.Neb IH Not Given TIDRT ROSEMARIE Lipase/Protease/Amylase 1 each 05/24/21 10:14 Lipase 10,500/Protease 25,000/Amylase 43,750 (Units) Dr Cap FEEDTUBE PRN PRN For Clogged Feeding Tube Apixaban 2.5 mg 05/29/21 13:00 06/02/21 09:13 Apixaban 2.5 Mg Tab PO 2.5 mg Q12HR ROSEMARIE Administration Protocol Famotidine 20 mg 05/27/21 10:00 06/02/21 09:13 Famotidine 20 Mg Tab FEEDTUBE 20 mg BID ROSEMARIE Administration Fentanyl 50 mcg 05/23/21 12:34 05/31/21 10:20 Fentanyl 100 Mcg/2 Ml Inj IV 50 mcg Q10MIN PRN Administration ANALGESIA Hydrophilic Ointment 1 applic 05/23/21 12:34 Lip Therapy Vaseline TP Q2HR PRN Dry Lips Fentanyl Citrate 2,000 mcg in 100 mls @ 8.528 mls/hr 05/23/21 13:00 06/02/21 06:54 Fentanyl Drip Premix IV 2 mcg/kg/hr TITR ROSEMARIE 17.055 mls/hr Titration Protocol 1 MCG/KG/HR NORepinephrine/NS 8 MG-250 ML 8 mg in 250 mls @ 3.75 mls/hr 05/24/21 20:00 06/02/21 09:12 Norepinephrine/Ns 8 Mg-250 Ml (Double Conc) IV 2 mcg/min TITRATE ROSEMARIE 3.75 mls/hr Administration Protocol 2 MCG/MIN Propofol 1,000 mg in 100 mls @ 5.117 mls/hr 05/25/21 19:00 06/02/21 07:22 Diprivan 10 Mg/Ml IV 20 mcg/kg/min TITR ROSEMARIE 20.466 mls/hr Administration Protocol 5 MCG/KG/MIN Multi-Ingred Cream/Lotion/Oil/Oint 1 applic 05/23/21 12:34 05/30/21 22:14 Mineral Oil/Petrolatum, White Ophth Oint 3.5 Gm OU 1 applic Q4HR PRN Administration Dry Eye(s) Ondansetron HCl 4 mg 05/23/21 20:42 Ondansetron 4 Mg/2 Ml Inj IV Q8H PRN Nausea And Vomiting Senna/Docusate Sodium 1 tab 05/23/21 22:00 06/02/21 09:13 Sennosides/Docusate Sodium 8.6/50 Mg Tab FEEDTUBE 1 tab BID ROSEMARIE Administration Sildenafil Citrate 20 mg 05/28/21 20:00 06/02/21 09:00 Sildenafil 20 Mg Tab PO 20 mg TID ROSEMARIE Administration Simple Syrup 15 ml 05/24/21 10:14 Simple Syrup 15 Ml FEEDTUBE PRN PRN Hypoglycemia Simple Syrup 30 ml 05/24/21 10:14 Simple Syrup 15 Ml FEEDTUBE PRN PRN Hypoglycemia Sodium Bicarbonate 325 mg 05/24/21 10:14 Sodium Bicarbonate 325 Mg Tab FEEDTUBE PRN PRN For Clogged Feeding Tube Sodium Chloride 10 ml 05/23/21 22:00 06/01/21 22:23 Sodium Chloride 0.9% 10 Ml Flush Syringe IV 10 ml BID ROSEMARIE Administration Sodium Chloride 10 ml 05/23/21 20:42 Sodium Chloride 0.9% 10 Ml Flush Syringe IV PRN PRN LINE FLUSH Nutrition/Malnutrition Assess - Dietary Evaluation Nutrition/Malnutrition Findings: Nutrition Notes Start: 05/24/21 09:53 Freq: Status: Active Protocol: Document 05/28/21 14:30 GB (Rec: 05/28/21 14:44 GB [id number]) Nutrition Notes Initial or Follow up Reassessment Current Diagnosis Acute Kidney Injury, Hypertension,Respiratory Failure Other Pertinent Diagnosis SIRS, encephalopathy, pneu, transaminitis Current Diet NPO, Tube Feeding Nepro @ 45m/ hr Labs/Tests 05/28: BUN 53, Creatinine 1.6, glucose 118, Ca 8, Mg 2.4 Pertinent Medications Fentanyl Citrate, Norepenephrin/NS 8 Mg 250, Propofol 30.699 ml/hr (810kcal ) Height 5 ft 8 in Weight 170.551 kg [place] Body Weight (kg) 70.00 BMI 57.2 Weight change and time frame No new weights recorded at time of assessment Weight Status Morbidly Obese Subjective/Other Information Pt continues Intubated/sedated 05/28: Chest Xray note: tubes in satisfactory position, No significant changes 05/28: MD note unresponsive on vent BM: no record at time of assessment Percent of energy/protein needs met: TF at goal meets 75% or greater of minimal estimated energy needs Burn Absent Trauma Absent GI Symptoms Other Difficulty In Swallowing Food Allergy No Skin Integrity/Comment wound to left toe Current % PO Other Minimum of two criteria No #1 Nutrition Diagnosis Swallowing difficulty Comments: 05/25: intubation/sedation continues. TF started 05/28: intubation/sedation continues. TF Nepro @ goal 45ml/hr Etiology ARF As Evidenced by Signs and Symptoms Intubated/sedated Diagnosis Progress(for reassessment Continues documentation) Is patient on ventilator? Yes Is Patient Ambulatory and/or Out of Bed No REE-([facility]-confined to bed) 3092.088 Kcal/Kg value to use for calculation 12 Approximate Energy Requirements Using 2047 kcal/Kg Calculation Used for Recommendations Kcal/kg Additional Notes Protein: 0.6g/kg or greater @ 170kg Fluid: 1 ml/kcal or per MD Nutrition Intervention Change Diet Order: Continue NPO, Tube feeding Nutrition Support: Nepro 1.8 at 45 ml/hr Flush 175 ml q4h or per MD Total free water: TF@goal + flush = 1835ml Kcal 1,950 Protein (gm) 88 Carbohydrates (gm) 174 Fat (gm) 104 Fluid (mL) 788 Fiber (gm) 14 % RDI: 100%kcal / 86%pro Goal #1 Meet at least 75% or greater of EEN via TF 05/25: met, continues 05/28: met, continues Goal #2 TF (Nepro) at goal rate (45ml/ hr) by f/u 05/25: TF started 05/28: TF at goal. met, continues Follow-Up By: 06/02/21 Additional Comments F/u: TF tolerance, renal labs, vent status
[2021-06-01] MEDS: ACETAMINOPHEN 325 MG TAB PO PRN (23:54)
[2021-06-02] MEDS: fentaNYL DRIP Premix 2,000 MCG/100 ML BAG IV SCH ×5 (01:51→23:00)
[2021-06-02 04:36] LABS: Hematocrit 33.1 % (35.5-45.6); Hemoglobin 10.1 gm/dl (11.8-15.2); Mean Corpuscular HGB Conc 31 % (32-34); Mean Corpuscular Volume 95 fl (84-94); Platelet Count 156 K/mm3 (140-440); Red Blood Count 3.48 M/mm3 (3.65-5.03); Red Cell Distribution Width 19.9 % (13.2-15.2)
[2021-06-02 04:49] LABS: Calcium 8.7 mg/dL (8.4-10.2)
[2021-06-02] MEDS: IPRATROPIUM/ALBUTEROL SULFATE 3 ML AMPUL.NEB IH SCH ×4 (07:23→20:18)
[2021-06-02] MEDS: SILDENAFIL 20 MG TAB PO SCH ×3 (09:00→15:20)
[2021-06-02] MEDS: NORepinephrine/NS 8 MG-250 ML 8 MG/250 ML INFUS..BTL IV SCH (09:12)
--- NOTE | 2021-06-02 09:12 | Progress Note ---
Assessment and Plan Acute possibly on chronic hypoxemic and hypercapnic respiratory failure Pneumonia, community-acquired Acute toxic metabolic encephalopathy Person under investigation for COVID-19 Morbid obesity Obstructive sleep apnea History of hypertension Acute kidney injury Hyperkalemia Elevated serum transaminases Possible shock liver Hyperammonemia Non-ST elevation myocardial infarction - stopped Revatio - wean Levophed for target MAP > 65 mmHg - FiO2 up to 100% - repeat ABG in am - continue care as below otherwise; - continue Eliquis - continue Revatio re: pulm HTN - nephrology input appreciated (azotemia improving) - continue Daily SAT and SBT assessment as tolerated - continue to wean supplemental oxygen for target O2 sat's > 90% acutely - VAP bundle addressed - continue lung protective strategies - continue bronchodilators with pulmonary hygiene per RT - wean per pulmonary driven protocols otherwise - avoid nephrotoxins, renally dose all medications - continue accuchecks with glycemic control per SSI (While critically ill target blood glucose of 140-180 mg/dL; avoid hypoglycemia) - sedation prn for target RASS 0 to -1 - continue to avoid benzodiazepine's, reduce the possibility of delirium - AB's per ID rec's - prn analgesia per CPOT score - Maintenance of sleep-wake cycle, avoid delirium - continue enteral nutritional support at goal rate as tolerated - G.I. & VTE prophylaxis - PT/OT/ROM exercises - continue mobility protocols for pressure ulcer prophylaxis - Monitor hemodynamics closely - continue other care per attending / other consultants - discharge planning ongoing concurrently COVID SPECIFIC INTERVENTIONS - COVID-19 test result pending .... Re-evaluate in am & prn CONDITION: CRITICAL PROGNOSIS: GUARDED CODE STATUS: FULL CODE The high probability of a clinically significant, sudden or life-threatening deterioration of the [respiratory, cardiovascular, renal & neurologic] system(s) required my full and direct attention, intervention and personal management. The aggregate critical care time was [33] minutes without overlap. Time includes spent on; [x] Data Review and interpretation [x] Patient assessment and monitoring of vital signs [x] Documentation [x] Medication orders and management Subjective Date of service: 06/02/21 Principal diagnosis: Acute hypoxemic and hypercapnic resp failure; PUI COVID-19; Pneumonia; FERMIN Interval history: Patient is seen today for: Acute hypoxemic and hypercapnic respiratory failure; PUI NCOVID-19; Pneumonia; CAP; FERMIN; REVA Seen and examined at bedside; 24hour events reviewed; nursing and respiratory care staff consulted; no adverse overnight events reported to me; remains on MVS; BP's running low; no emesis or overt aspiration; remains on fentanyl and propofol for sedation; no gross bleeding but remains with ARDS Objective Vital Signs - 12hr 06/01/21 06/01/21 06/01/21 21:30 22:00 22:30 Temperature Pulse Rate 128 H 126 H 124 H Respiratory 24 25 H 25 H Rate Blood Pressure 116/64 114/63 107/49 O2 Sat by Pulse 94 94 91 Oximetry 06/01/21 06/01/21 06/01/21 23:00 23:30 23:54 Temperature Pulse Rate 126 H 118 H 122 H Respiratory 25 H 24 18 Rate Blood Pressure 103/55 108/54 104/52 O2 Sat by Pulse 92 93 91 Oximetry 06/02/21 06/02/21 06/02/21 00:00 00:04 00:07 Temperature 100.6 F H Pulse Rate 112 H 105 H 112 H Respiratory 21 19 25 H Rate Blood Pressure 103/55 103/55 O2 Sat by Pulse 92 92 92 Oximetry 06/02/21 06/02/21 06/02/21 00:16 00:30 00:54 Temperature Pulse Rate 101 H 97 H Respiratory 21 25 H Rate Blood Pressure 96/49 100/48 O2 Sat by Pulse 93 93 Oximetry 06/02/21 06/02/21 06/02/21 01:00 01:10 01:30 Temperature 100.0 F H Pulse Rate 107 H Respiratory 25 H 24 Rate Blood Pressure 100/55 99/50 O2 Sat by Pulse 86 74 L 98 Oximetry 06/02/21 06/02/21 06/02/21 02:00 02:30 03:00 Temperature Pulse Rate 120 H 112 H 102 H Respiratory 27 H 25 H 19 Rate Blood Pressure 111/61 93/45 93/46 O2 Sat by Pulse 98 91 90 Oximetry 06/02/21 06/02/21 06/02/21 03:10 03:27 03:30 Temperature 100.0 F H 99.9 F H Pulse Rate 94 H Respiratory 24 Rate Blood Pressure 98/48 O2 Sat by Pulse 91 Oximetry 06/02/21 06/02/21 06/02/21 04:00 04:28 04:30 Temperature Pulse Rate 95 H 129 H 140 H Respiratory 25 H 25 H Rate Blood Pressure 114/66 155/97 155/97 O2 Sat by Pulse 92 93 88 Oximetry 06/02/21 06/02/21 06/02/21 05:00 05:30 06:00 Temperature Pulse Rate 108 H 122 H 114 H Respiratory 25 H 25 H 24 Rate Blood Pressure 116/60 133/72 97/40 O2 Sat by Pulse 92 91 90 Oximetry 06/02/21 06/02/21 07:23 07:32 Temperature 99.9 F H Pulse Rate 135 H Respiratory Rate Blood Pressure 161/98 O2 Sat by Pulse 93 Oximetry Constitutional: no acute distress, other (middle aged morbidly obese male with mildly increased respiratory effort at rest on MVS) Eyes: non-icteric ENT: oropharynx moist, other (ETT 24 cm FRANCIS) Neck: supple, no lymphadenopathy, no JVD Effort: mildly labored Ascultation: Bilateral: diminished breath sounds, rhonchi Percussion: Bilateral: not dull Cardiovascular: regular rate and rhythm Gastrointestinal: normoactive bowel sounds, soft, non-tender, non-distended Integumentary: rash (stasis dermatitis) Extremities: no cyanosis, pulses normal, no ischemia or petechiae, edema (trace) Neurologic: non-focal exam (grossly), pupils equal and round, CN II-XII normal, other (sedated) Psychiatric: other (sedated) CBC and BMP: 06/03/21 04:10 06/03/21 04:10 ABG, PT/INR, D-dimer: ABG ABG pH 7.351 (7.320-7.450) 06/01/21 03:06 POC ABG pCO2 46.5 mmHg (32.0-48.0) 06/01/21 03:06 ABG pCO2 48.1 mm Hg 05/30/21 09:22 POC ABG pO2 55.0 mmHg (83-108) L 06/01/21 03:06 ABG pO2 107.0 mm Hg (80.0-90.0) H 05/30/21 09:22 POC ABG HCO3 25.2 06/01/21 03:06 ABG O2 Saturation 88.5 (0-100) 06/01/21 03:06 PT/INR, D-dimer PT 15.3 Sec. (12.2-14.9) H 05/29/21 13:40 INR 1.09 (0.87-1.13) 05/29/21 13:40 D-Dimer 4444.85 ng/mlDDU (0-234) H 05/23/21 15:09 Abnormal lab findings: Abnormal Labs 05/23/21 05/23/21 05/23/21 15:00 15:09 15:09 WBC RBC Hgb Hct MCV 95 H MCHC 30 L RDW 20.1 H Plt Count Lymph % (Auto) 5.9 L Lymph # (Auto) 0.6 L Seg Neutrophils % 87.5 H Seg Neuts % (Manual) Lymphocytes % (Manual) Seg Neutrophils # 8.2 H Seg Neutrophils # Man Lymphocytes # (Manual) PT 18.1 H INR 1.36 H APTT 23.1 L D-Dimer ABG pH 7.215 L POC ABG pCO2 POC ABG pO2 ABG pO2 ABG HCO3 28.4 H ABG O2 Saturation ABG Base Excess ABG Hemoglobin 13.5 L ABG Oxyhemoglobin ABG Sodium ABG Potassium ABG Chloride ABG Glucose Oxyhemoglobin 92.6 L Sodium Potassium Carbon Dioxide BUN Creatinine Glucose POC Glucose Calcium Magnesium AST ALT Ammonia Total Creatine Kinase Troponin T C-Reactive Protein NT-Pro-B Natriuret Pep Albumin HDL Cholesterol Arterial Blood Glucose Urine WBC (Auto) Urine Creatinine Salicylates Acetaminophen 05/23/21 05/23/21 05/23/21 15:09 15:09 15:09 WBC RBC Hgb Hct MCV MCHC RDW Plt Count Lymph % (Auto) Lymph # (Auto) Seg Neutrophils % Seg Neuts % (Manual) Lymphocytes % (Manual) Seg Neutrophils # Seg Neutrophils # Man Lymphocytes # (Manual) PT INR APTT D-Dimer ABG pH POC ABG pCO2 POC ABG pO2 ABG pO2 ABG HCO3 ABG O2 Saturation ABG Base Excess ABG Hemoglobin ABG Oxyhemoglobin ABG Sodium ABG Potassium ABG Chloride ABG Glucose Oxyhemoglobin Sodium Potassium 5.2 H Carbon Dioxide BUN 40 H Creatinine 3.2 H Glucose 133 H POC Glucose Calcium Magnesium AST 1094 H ALT 1089 H Ammonia 75.0 H Total Creatine Kinase Troponin T 0.038 H C-Reactive Protein NT-Pro-B Natriuret Pep Albumin 3.0 L HDL Cholesterol 29 L Arterial Blood Glucose Urine WBC (Auto) Urine Creatinine Salicylates < 0.3 L Acetaminophen 05/23/21 05/23/21 05/23/21 15:09 15:09 15:09 WBC RBC Hgb Hct MCV MCHC RDW Plt Count Lymph % (Auto) Lymph # (Auto) Seg Neutrophils % Seg Neuts % (Manual) Lymphocytes % (Manual) Seg Neutrophils # Seg Neutrophils # Man Lymphocytes # (Manual) PT INR APTT D-Dimer 4444.85 H ABG pH POC ABG pCO2 POC ABG pO2 ABG pO2 ABG HCO3 ABG O2 Saturation ABG Base Excess ABG Hemoglobin ABG Oxyhemoglobin ABG Sodium ABG Potassium ABG Chloride ABG Glucose Oxyhemoglobin Sodium Potassium Carbon Dioxide BUN Creatinine Glucose POC Glucose Calcium Magnesium AST ALT Ammonia Total Creatine Kinase 48 L Troponin T C-Reactive Protein NT-Pro-B Natriuret Pep 26926 H Albumin HDL Cholesterol Arterial Blood Glucose Urine WBC (Auto) Urine Creatinine Salicylates Acetaminophen 5.0 L 05/23/21 05/23/21 05/23/21 19:10 20:48 Unknown WBC RBC Hgb Hct MCV MCHC RDW Plt Count Lymph % (Auto) Lymph # (Auto) Seg Neutrophils % Seg Neuts % (Manual) Lymphocytes % (Manual) Seg Neutrophils # Seg Neutrophils # Man Lymphocytes # (Manual) PT INR APTT D-Dimer ABG pH 7.332 L POC ABG pCO2 POC ABG pO2 ABG pO2 74.0 L ABG HCO3 ABG O2 Saturation 94.4 L ABG Base Excess ABG Hemoglobin 12.5 L ABG Oxyhemoglobin ABG Sodium ABG Potassium ABG Chloride ABG Glucose Oxyhemoglobin 92.3 L Sodium Potassium Carbon Dioxide BUN Creatinine Glucose POC Glucose Calcium Magnesium AST ALT Ammonia Total Creatine Kinase Troponin T C-Reactive Protein 10.00 H NT-Pro-B Natriuret Pep Albumin HDL Cholesterol Arterial Blood Glucose Urine WBC (Auto) 34.0 H Urine Creatinine Salicylates Acetaminophen 05/24/21 05/24/21 05/24/21 04:55 04:55 09:15 WBC RBC Hgb Hct MCV 95 H MCHC 31 L RDW 19.4 H Plt Count Lymph % (Auto) Lymph # (Auto) Seg Neutrophils % Seg Neuts % (Manual) 97.0 H Lymphocytes % (Manual) 3.0 L Seg Neutrophils # Seg Neutrophils # Man 8.4 H Lymphocytes # (Manual) 0.3 L PT INR APTT D-Dimer ABG pH POC ABG pCO2 POC ABG pO2 ABG pO2 90.6 H ABG HCO3 ABG O2 Saturation ABG Base Excess -3.7 L ABG Hemoglobin 13.5 L ABG Oxyhemoglobin ABG Sodium ABG Potassium ABG Chloride ABG Glucose Oxyhemoglobin Sodium Potassium 5.5 H Carbon Dioxide 20 L BUN 39 H Creatinine 2.2 H Glucose 155 H POC Glucose Calcium 8.3 L Magnesium AST 571 H ALT 951 H Ammonia Total Creatine Kinase Troponin T C-Reactive Protein NT-Pro-B Natriuret Pep Albumin 3.2 L HDL Cholesterol Arterial Blood Glucose Urine WBC (Auto) Urine Creatinine Salicylates Acetaminophen 05/25/21 05/25/21 05/25/21 04:20 14:37 14:37 WBC RBC Hgb Hct MCV 96 H MCHC 30 L RDW 20.7 H Plt Count Lymph % (Auto) Lymph # (Auto) Seg Neutrophils % Seg Neuts % (Manual) Lymphocytes % (Manual) Seg Neutrophils # Seg Neutrophils # Man Lymphocytes # (Manual) PT INR APTT D-Dimer ABG pH 7.222 L POC ABG pCO2 57.8 H POC ABG pO2 67.3 L ABG pO2 ABG HCO3 ABG O2 Saturation ABG Base Excess ABG Hemoglobin ABG Oxyhemoglobin 89.1 L ABG Sodium ABG Potassium 5.1 H ABG Chloride ABG Glucose 182 H Oxyhemoglobin Sodium Potassium 5.3 H Carbon Dioxide BUN 47 H Creatinine 2.0 H Glucose 154 H POC Glucose Calcium Magnesium AST 93 H ALT 590 H Ammonia Total Creatine Kinase Troponin T C-Reactive Protein NT-Pro-B Natriuret Pep Albumin 3.6 L HDL Cholesterol Arterial Blood Glucose 182 H Urine WBC (Auto) Urine Creatinine Salicylates Acetaminophen 05/25/21 05/25/21 05/26/21 21:50 23:30 05:31 WBC RBC Hgb Hct MCV MCHC RDW Plt Count Lymph % (Auto) Lymph # (Auto) Seg Neutrophils % Seg Neuts % (Manual) Lymphocytes % (Manual) Seg Neutrophils # Seg Neutrophils # Man Lymphocytes # (Manual) PT INR APTT D-Dimer ABG pH 7.328 L POC ABG pCO2 POC ABG pO2 ABG pO2 63.3 L ABG HCO3 ABG O2 Saturation 92.1 L ABG Base Excess -2.4 L ABG Hemoglobin 11.3 L ABG Oxyhemoglobin ABG Sodium ABG Potassium ABG Chloride ABG Glucose Oxyhemoglobin 90.3 L Sodium Potassium Carbon Dioxide BUN Creatinine Glucose POC Glucose 131 H 123 H Calcium Magnesium AST ALT Ammonia Total Creatine Kinase Troponin T C-Reactive Protein NT-Pro-B Natriuret Pep Albumin HDL Cholesterol Arterial Blood Glucose Urine WBC (Auto) Urine Creatinine Salicylates Acetaminophen 05/26/21 05/26/21 05/26/21 09:02 10:57 17:30 WBC RBC Hgb Hct MCV MCHC RDW Plt Count Lymph % (Auto) Lymph # (Auto) Seg Neutrophils % Seg Neuts % (Manual) Lymphocytes % (Manual) Seg Neutrophils # Seg Neutrophils # Man Lymphocytes # (Manual) PT INR APTT D-Dimer ABG pH 7.346 L POC ABG pCO2 POC ABG pO2 ABG pO2 60.5 L ABG HCO3 ABG O2 Saturation 90.7 L ABG Base Excess ABG Hemoglobin 13.1 L ABG Oxyhemoglobin ABG Sodium ABG Potassium ABG Chloride ABG Glucose Oxyhemoglobin 88.9 L Sodium Potassium Carbon Dioxide BUN Creatinine Glucose POC Glucose 127 H 141 H Calcium Magnesium AST ALT Ammonia Total Creatine Kinase Troponin T C-Reactive Protein NT-Pro-B Natriuret Pep Albumin HDL Cholesterol Arterial Blood Glucose Urine WBC (Auto) Urine Creatinine Salicylates Acetaminophen 05/26/21 05/26/21 05/26/21 21:00 Unknown Unknown WBC 4.2 L RBC Hgb 11.7 L Hct MCV MCHC 31 L RDW 20.3 H Plt Count 132 L Lymph % (Auto) Lymph # (Auto) Seg Neutrophils % Seg Neuts % (Manual) Lymphocytes % (Manual) Seg Neutrophils # Seg Neutrophils # Man Lymphocytes # (Manual) PT INR APTT D-Dimer ABG pH POC ABG pCO2 POC ABG pO2 56.7 L ABG pO2 ABG HCO3 ABG O2 Saturation ABG Base Excess ABG Hemoglobin ABG Oxyhemoglobin 88.8 L ABG Sodium ABG Potassium 4.7 H ABG Chloride ABG Glucose 152 H Oxyhemoglobin Sodium Potassium 5.2 H Carbon Dioxide BUN 47 H Creatinine 2.0 H Glucose 136 H POC Glucose Calcium Magnesium AST 64 H ALT 448 H Ammonia Total Creatine Kinase Troponin T C-Reactive Protein NT-Pro-B Natriuret Pep Albumin 3.4 L HDL Cholesterol Arterial Blood Glucose 152 H Urine WBC (Auto) Urine Creatinine Salicylates Acetaminophen 05/26/21 05/27/21 05/27/21 Unknown 08:00 08:00 WBC 4.2 L RBC Hgb Hct MCV MCHC RDW 21.2 H Plt Count 126 L Lymph % (Auto) Lymph # (Auto) Seg Neutrophils % Seg Neuts % (Manual) Lymphocytes % (Manual) Seg Neutrophils # Seg Neutrophils # Man Lymphocytes # (Manual) PT INR APTT D-Dimer ABG pH POC ABG pCO2 POC ABG pO2 ABG pO2 ABG HCO3 ABG O2 Saturation ABG Base Excess ABG Hemoglobin ABG Oxyhemoglobin ABG Sodium ABG Potassium ABG Chloride ABG Glucose Oxyhemoglobin Sodium Potassium Carbon Dioxide BUN 52 H Creatinine 1.8 H Glucose 171 H POC Glucose Calcium 8.3 L Magnesium AST ALT Ammonia Total Creatine Kinase Troponin T C-Reactive Protein NT-Pro-B Natriuret Pep Albumin HDL Cholesterol Arterial Blood Glucose Urine WBC (Auto) Urine Creatinine 128.6 H Salicylates Acetaminophen 05/27/21 05/27/21 05/27/21 10:15 11:48 17:13 WBC RBC Hgb Hct MCV MCHC RDW Plt Count Lymph % (Auto) Lymph # (Auto) Seg Neutrophils % Seg Neuts % (Manual) Lymphocytes % (Manual) Seg Neutrophils # Seg Neutrophils # Man Lymphocytes # (Manual) PT INR APTT D-Dimer ABG pH 7.300 L POC ABG pCO2 POC ABG pO2 ABG pO2 42.1 L ABG HCO3 ABG O2 Saturation 72.8 L ABG Base Excess ABG Hemoglobin 12.7 L ABG Oxyhemoglobin ABG Sodium ABG Potassium ABG Chloride ABG Glucose Oxyhemoglobin 71.4 L Sodium Potassium Carbon Dioxide BUN Creatinine Glucose POC Glucose 139 H 145 H Calcium Magnesium AST ALT Ammonia Total Creatine Kinase Troponin T C-Reactive Protein NT-Pro-B Natriuret Pep Albumin HDL Cholesterol Arterial Blood Glucose Urine WBC (Auto) Urine Creatinine Salicylates Acetaminophen 05/28/21 05/28/21 05/28/21 05:30 11:37 13:32 WBC RBC Hgb Hct MCV MCHC RDW Plt Count Lymph % (Auto) Lymph # (Auto) Seg Neutrophils % Seg Neuts % (Manual) Lymphocytes % (Manual) Seg Neutrophils # Seg Neutrophils # Man Lymphocytes # (Manual) PT INR APTT D-Dimer ABG pH 7.339 L POC ABG pCO2 POC ABG pO2 ABG pO2 53.7 L ABG HCO3 ABG O2 Saturation 86.5 L ABG Base Excess ABG Hemoglobin 12.3 L ABG Oxyhemoglobin ABG Sodium ABG Potassium ABG Chloride ABG Glucose Oxyhemoglobin 84.6 L Sodium Potassium Carbon Dioxide BUN 53 H Creatinine 1.6 H Glucose 118 H POC Glucose 115 H Calcium 8.0 L Magnesium 2.40 H AST ALT Ammonia Total Creatine Kinase Troponin T C-Reactive Protein NT-Pro-B Natriuret Pep Albumin HDL Cholesterol Arterial Blood Glucose Urine WBC (Auto) Urine Creatinine Salicylates Acetaminophen 05/28/21 05/29/21 05/29/21 Unknown 09:43 13:40 WBC RBC Hgb 11.7 L Hct MCV MCHC 31 L RDW 21.3 H 20.9 H Plt Count 121 L 103 L Lymph % (Auto) Lymph # (Auto) Seg Neutrophils % Seg Neuts % (Manual) Lymphocytes % (Manual) Seg Neutrophils # Seg Neutrophils # Man Lymphocytes # (Manual) PT INR APTT D-Dimer ABG pH POC ABG pCO2 POC ABG pO2 ABG pO2 60.9 L ABG HCO3 ABG O2 Saturation 90.7 L ABG Base Excess ABG Hemoglobin 12.0 L ABG Oxyhemoglobin ABG Sodium ABG Potassium ABG Chloride ABG Glucose Oxyhemoglobin 88.9 L Sodium Potassium Carbon Dioxide BUN Creatinine Glucose POC Glucose Calcium Magnesium AST ALT Ammonia Total Creatine Kinase Troponin T C-Reactive Protein NT-Pro-B Natriuret Pep Albumin HDL Cholesterol Arterial Blood Glucose Urine WBC (Auto) Urine Creatinine Salicylates Acetaminophen 05/29/21 05/29/21 05/30/21 13:40 13:40 04:42 WBC RBC Hgb 11.7 L Hct MCV 95 H MCHC RDW 20.8 H Plt Count 106 L Lymph % (Auto) Lymph # (Auto) Seg Neutrophils % Seg Neuts % (Manual) Lymphocytes % (Manual) Seg Neutrophils # Seg Neutrophils # Man Lymphocytes # (Manual) PT 15.3 H INR APTT D-Dimer ABG pH POC ABG pCO2 POC ABG pO2 ABG pO2 ABG HCO3 ABG O2 Saturation ABG Base Excess ABG Hemoglobin ABG Oxyhemoglobin ABG Sodium ABG Potassium ABG Chloride ABG Glucose Oxyhemoglobin Sodium Potassium Carbon Dioxide BUN Creatinine 1.7 H Glucose POC Glucose Calcium Magnesium AST ALT Ammonia Total Creatine Kinase Troponin T C-Reactive Protein NT-Pro-B Natriuret Pep Albumin HDL Cholesterol Arterial Blood Glucose Urine WBC (Auto) Urine Creatinine Salicylates Acetaminophen 05/30/21 05/30/21 05/30/21 04:42 07:47 09:22 WBC RBC Hgb Hct MCV MCHC RDW Plt Count Lymph % (Auto) Lymph # (Auto) Seg Neutrophils % Seg Neuts % (Manual) Lymphocytes % (Manual) Seg Neutrophils # Seg Neutrophils # Man Lymphocytes # (Manual) PT INR APTT D-Dimer ABG pH 7.323 L POC ABG pCO2 POC ABG pO2 ABG pO2 107.0 H ABG HCO3 ABG O2 Saturation ABG Base Excess ABG Hemoglobin 12.4 L ABG Oxyhemoglobin ABG Sodium ABG Potassium ABG Chloride ABG Glucose Oxyhemoglobin Sodium 135 L Potassium Carbon Dioxide BUN 63 H 63 H Creatinine 1.6 H 1.6 H Glucose POC Glucose Calcium 8.2 L Magnesium AST ALT Ammonia Total Creatine Kinase Troponin T C-Reactive Protein NT-Pro-B Natriuret Pep Albumin HDL Cholesterol Arterial Blood Glucose Urine WBC (Auto) Urine Creatinine Salicylates Acetaminophen 05/31/21 05/31/21 05/31/21 05:16 05:16 05:17 WBC RBC Hgb 11.1 L Hct MCV MCHC 31 L RDW 20.8 H Plt Count 116 L Lymph % (Auto) Lymph # (Auto) Seg Neutrophils % Seg Neuts % (Manual) Lymphocytes % (Manual) Seg Neutrophils # Seg Neutrophils # Man Lymphocytes # (Manual) PT INR APTT D-Dimer ABG pH POC ABG pCO2 POC ABG pO2 ABG pO2 ABG HCO3 ABG O2 Saturation ABG Base Excess ABG Hemoglobin ABG Oxyhemoglobin ABG Sodium ABG Potassium ABG Chloride ABG Glucose Oxyhemoglobin Sodium Potassium Carbon Dioxide BUN 62 H Creatinine 1.9 H Glucose 103 H POC Glucose 109 H Calcium Magnesium AST ALT Ammonia Total Creatine Kinase Troponin T C-Reactive Protein NT-Pro-B Natriuret Pep Albumin HDL Cholesterol Arterial Blood Glucose Urine WBC (Auto) Urine Creatinine Salicylates Acetaminophen 05/31/21 05/31/21 06/01/21 16:49 Unknown 03:06 WBC RBC Hgb Hct MCV MCHC RDW Plt Count Lymph % (Auto) Lymph # (Auto) Seg Neutrophils % Seg Neuts % (Manual) Lymphocytes % (Manual) Seg Neutrophils # Seg Neutrophils # Man Lymphocytes # (Manual) PT INR APTT D-Dimer ABG pH POC ABG pCO2 48.4 H POC ABG pO2 63.0 L 55.0 L ABG pO2 ABG HCO3 ABG O2 Saturation ABG Base Excess ABG Hemoglobin 11.9 L 10.9 L ABG Oxyhemoglobin 91.4 L 87.5 L ABG Sodium 127.4 L ABG Potassium 4.6 H 4.6 H ABG Chloride 108.0 H ABG Glucose 110 H 108 H Oxyhemoglobin Sodium Potassium Carbon Dioxide BUN Creatinine Glucose POC Glucose 107 H Calcium Magnesium AST ALT Ammonia Total Creatine Kinase Troponin T C-Reactive Protein NT-Pro-B Natriuret Pep Albumin HDL Cholesterol Arterial Blood Glucose 110 H 108 H Urine WBC (Auto) Urine Creatinine Salicylates Acetaminophen 06/01/21 06/01/21 06/01/21 07:00 07:00 17:09 WBC RBC Hgb 11.2 L Hct MCV 96 H MCHC 31 L RDW 20.6 H Plt Count Lymph % (Auto) Lymph # (Auto) Seg Neutrophils % Seg Neuts % (Manual) Lymphocytes % (Manual) Seg Neutrophils # Seg Neutrophils # Man Lymphocytes # (Manual) PT INR APTT D-Dimer ABG pH POC ABG pCO2 POC ABG pO2 ABG pO2 ABG HCO3 ABG O2 Saturation ABG Base Excess ABG Hemoglobin ABG Oxyhemoglobin ABG Sodium ABG Potassium ABG Chloride ABG Glucose Oxyhemoglobin Sodium Potassium Carbon Dioxide BUN 59 H Creatinine 1.6 H Glucose 104 H POC Glucose 106 H Calcium Magnesium AST ALT Ammonia Total Creatine Kinase Troponin T C-Reactive Protein NT-Pro-B Natriuret Pep Albumin HDL Cholesterol Arterial Blood Glucose Urine WBC (Auto) Urine Creatinine Salicylates Acetaminophen 06/01/21 06/02/21 06/02/21 23:42 04:23 04:23 WBC RBC 3.48 L Hgb 10.1 L Hct 33.1 L MCV 95 H MCHC 31 L RDW 19.9 H Plt Count Lymph % (Auto) Lymph # (Auto) Seg Neutrophils % Seg Neuts % (Manual) Lymphocytes % (Manual) Seg Neutrophils # Seg Neutrophils # Man Lymphocytes # (Manual) PT INR APTT D-Dimer ABG pH POC ABG pCO2 POC ABG pO2 ABG pO2 ABG HCO3 ABG O2 Saturation ABG Base Excess ABG Hemoglobin ABG Oxyhemoglobin ABG Sodium ABG Potassium ABG Chloride ABG Glucose Oxyhemoglobin Sodium Potassium Carbon Dioxide BUN 61 H Creatinine 1.7 H Glucose 119 H POC Glucose 109 H Calcium Magnesium AST ALT Ammonia Total Creatine Kinase Troponin T C-Reactive Protein NT-Pro-B Natriuret Pep Albumin HDL Cholesterol Arterial Blood Glucose Urine WBC (Auto) Urine Creatinine Salicylates Acetaminophen 06/02/21 06/02/21 05:38 05:40 WBC RBC Hgb Hct MCV MCHC RDW Plt Count Lymph % (Auto) Lymph # (Auto) Seg Neutrophils % Seg Neuts % (Manual) Lymphocytes % (Manual) Seg Neutrophils # Seg Neutrophils # Man Lymphocytes # (Manual) PT INR APTT D-Dimer ABG pH POC ABG pCO2 POC ABG pO2 ABG pO2 ABG HCO3 ABG O2 Saturation ABG Base Excess ABG Hemoglobin ABG Oxyhemoglobin ABG Sodium ABG Potassium ABG Chloride ABG Glucose Oxyhemoglobin Sodium Potassium Carbon Dioxide BUN Creatinine Glucose POC Glucose 49 L 107 H Calcium Magnesium AST ALT Ammonia Total Creatine Kinase Troponin T C-Reactive Protein NT-Pro-B Natriuret Pep Albumin HDL Cholesterol Arterial Blood Glucose Urine WBC (Auto) Urine Creatinine Salicylates Acetaminophen Chest x-ray: other (none today) Allied health notes reviewed: nursing
[2021-06-02] MEDS: FAMOTIDINE 20 MG TAB FEEDTUBE SCH ×2 (09:13→21:15)
[2021-06-02] MEDS: SENNOSIDES/DOCUSATE SODIUM 8.6/50 MG TAB FEEDTUBE SCH ×2 (09:13→21:16)
[2021-06-02] MEDS: APIXABAN 2.5 MG TAB PO SCH ×2 (09:13→21:15)
[2021-06-02] MEDS: ACETAMINOPHEN 325 MG TAB PO PRN (09:14)
--- NOTE | 2021-06-02 10:04 | Progress Note ---
Assessment and Plan Acute Renal Failure likely on CKD Hypertension Acute Respiratory Failure Pneumonia, community-acquired Morbid obesity Obstructive sleep apnea Edema Plan: stable kidney function, good UOP May have unerlying CKD given history of Obesity and Hypertension. His serum creatinine was 0.8 in 2018 but current baseline is to be determined Renally dose medications Obtain daily weights Monitor I/O's daily Avoid nephrotoxic agents No acute indication for SPECIALTY FOODS COOK Will monitor renal function closely Subjective Date of service: 06/02/21 Principal diagnosis: Acute hypoxemic and hypercapnic resp failure; PUI COVID-19; Pneumonia; FERMIN Interval history: No overnight events reported Objective - Vital Signs Vital signs: Vital Signs - 12hr 06/01/21 06/01/21 06/01/21 22:30 23:00 23:30 Temperature Pulse Rate 124 H 126 H 118 H Respiratory 25 H 25 H 24 Rate Blood Pressure 107/49 103/55 108/54 O2 Sat by Pulse 91 92 93 Oximetry 06/01/21 06/02/21 06/02/21 23:54 00:00 00:04 Temperature 100.6 F H Pulse Rate 122 H 112 H 105 H Respiratory 18 21 19 Rate Blood Pressure 104/52 103/55 103/55 O2 Sat by Pulse 91 92 92 Oximetry 06/02/21 06/02/21 06/02/21 00:07 00:16 00:30 Temperature Pulse Rate 112 H 101 H 97 H Respiratory 25 H 21 Rate Blood Pressure 96/49 100/48 O2 Sat by Pulse 92 93 93 Oximetry 06/02/21 06/02/21 06/02/21 00:54 01:00 01:10 Temperature 100.0 F H Pulse Rate Respiratory 25 H 25 H Rate Blood Pressure 100/55 O2 Sat by Pulse 86 74 L Oximetry 06/02/21 06/02/21 06/02/21 01:30 02:00 02:30 Temperature Pulse Rate 107 H 120 H 112 H Respiratory 24 27 H 25 H Rate Blood Pressure 99/50 111/61 93/45 O2 Sat by Pulse 98 98 91 Oximetry 06/02/21 06/02/21 06/02/21 03:00 03:10 03:27 Temperature 100.0 F H 99.9 F H Pulse Rate 102 H Respiratory 19 Rate Blood Pressure 93/46 O2 Sat by Pulse 90 Oximetry 06/02/21 06/02/21 06/02/21 03:30 04:00 04:28 Temperature Pulse Rate 94 H 95 H 129 H Respiratory 24 25 H Rate Blood Pressure 98/48 114/66 155/97 O2 Sat by Pulse 91 92 93 Oximetry 06/02/21 06/02/21 06/02/21 04:30 05:00 05:30 Temperature Pulse Rate 140 H 108 H 122 H Respiratory 25 H 25 H 25 H Rate Blood Pressure 155/97 116/60 133/72 O2 Sat by Pulse 88 92 91 Oximetry 06/02/21 06/02/21 06/02/21 06:00 07:23 07:32 Temperature 99.9 F H Pulse Rate 114 H 135 H Respiratory 24 Rate Blood Pressure 97/40 161/98 O2 Sat by Pulse 90 93 Oximetry - Lab 06/02/21 04:23 06/02/21 04:23 Most recent lab results ABG pH 7.351 (7.320-7.450) 06/01/21 03:06 ABG pCO2 48.1 mm Hg 05/30/21 09:22 ABG pO2 107.0 mm Hg (80.0-90.0) H 05/30/21 09:22 ABG HCO3 24.4 mmol/L (20.0-26.0) 05/30/21 09:22 ABG O2 Saturation 88.5 (0-100) 06/01/21 03:06 Calcium 8.7 mg/dL (8.4-10.2) 06/02/21 04:23 Phosphorus 2.90 mg/dL (2.5-4.5) 05/28/21 05:30 Magnesium 2.40 mg/dL (1.7-2.3) H 05/28/21 05:30 Urine Creatinine 128.6 mg/dL (0.1-20.0) H 05/26/21 Unknown Urine Sodium 37 mmol/L 05/26/21 Unknown Medications & Allergies - Medications Allergies/Adverse Reactions: Allergies No Known Allergies Allergy (Unverified 05/25/21 12:48) Home Medications: Home Medications Medication Instructions Recorded Confirmed Last Taken Type Amoxicillin [Amoxicillin TAB] 875 mg PO BID #20 tablet 11/12/14 05/29/21 Unknown Rx Apixaban 2.5 mg PO BID 05/29/21 05/29/21 Unknown History Cholecalciferol (Vitamin D3) 3 mg PO 1XW 05/29/21 05/29/21 Unknown History Metoprolol 150 mg PO BID 05/29/21 05/29/21 Unknown History Torsemide 80 mg PO DAILY 05/29/21 05/29/21 Unknown History Active Medications: Generic Name Dose Route Start Last Admin Trade Name Freq PRN Reason Stop Dose Admin Acetaminophen 650 mg 05/23/21 20:42 06/02/21 09:14 Acetaminophen 325 Mg Tab PO 650 mg Q4H PRN Administration Pain MILD(1-3)/Fever >100.5/CAST[place] Albuterol 2.5 mg 05/23/21 21:11 Albuterol 2.5 Mg/3 Ml Nebu IH Q4HRT PRN Shortness Of Breath Albuterol/Ipratropium 1 ampul 05/29/21 08:00 06/02/21 07:23 Ipratropium/Albuterol Sulfate 3 Ml Ampul.Neb IH Not Given TIDRT ROSEMARIE Lipase/Protease/Amylase 1 each 05/24/21 10:14 Lipase 10,500/Protease 25,000/Amylase 43,750 (Units) Dr Cap FEEDTUBE PRN PRN For Clogged Feeding Tube Apixaban 2.5 mg 05/29/21 13:00 06/02/21 09:13 Apixaban 2.5 Mg Tab PO 2.5 mg Q12HR ROSEMARIE Administration Protocol Famotidine 20 mg 05/27/21 10:00 06/02/21 09:13 Famotidine 20 Mg Tab FEEDTUBE 20 mg BID ROSEMARIE Administration Fentanyl 50 mcg 05/23/21 12:34 05/31/21 10:20 Fentanyl 100 Mcg/2 Ml Inj IV 50 mcg Q10MIN PRN Administration ANALGESIA Hydrophilic Ointment 1 applic 05/23/21 12:34 Lip Therapy Vaseline TP Q2HR PRN Dry Lips Fentanyl Citrate 2,000 mcg in 100 mls @ 8.528 mls/hr 05/23/21 13:00 06/02/21 06:54 Fentanyl Drip Premix IV 2 mcg/kg/hr TITR ROSEMARIE 17.055 mls/hr Titration Protocol 1 MCG/KG/HR NORepinephrine/NS 8 MG-250 ML 8 mg in 250 mls @ 3.75 mls/hr 05/24/21 20:00 06/02/21 09:12 Norepinephrine/Ns 8 Mg-250 Ml (Double Conc) IV 2 mcg/min TITRATE ROSEMARIE 3.75 mls/hr Administration Protocol 2 MCG/MIN Propofol 1,000 mg in 100 mls @ 5.117 mls/hr 05/25/21 19:00 06/02/21 07:22 Diprivan 10 Mg/Ml IV 20 mcg/kg/min TITR ROSEMARIE 20.466 mls/hr Administration Protocol 5 MCG/KG/MIN Multi-Ingred Cream/Lotion/Oil/Oint 1 applic 05/23/21 12:34 05/30/21 22:14 Mineral Oil/Petrolatum, White Ophth Oint 3.5 Gm OU 1 applic Q4HR PRN Administration Dry Eye(s) Ondansetron HCl 4 mg 05/23/21 20:42 Ondansetron 4 Mg/2 Ml Inj IV Q8H PRN Nausea And Vomiting Senna/Docusate Sodium 1 tab 05/23/21 22:00 06/02/21 09:13 Sennosides/Docusate Sodium 8.6/50 Mg Tab FEEDTUBE 1 tab BID ROSEMARIE Administration Sildenafil Citrate 20 mg 05/28/21 20:00 06/02/21 09:00 Sildenafil 20 Mg Tab PO 20 mg TID ROSEMARIE Administration Simple Syrup 15 ml 05/24/21 10:14 Simple Syrup 15 Ml FEEDTUBE PRN PRN Hypoglycemia Simple Syrup 30 ml 05/24/21 10:14 Simple Syrup 15 Ml FEEDTUBE PRN PRN Hypoglycemia Sodium Bicarbonate 325 mg 05/24/21 10:14 Sodium Bicarbonate 325 Mg Tab FEEDTUBE PRN PRN For Clogged Feeding Tube Sodium Chloride 10 ml 05/23/21 22:00 06/01/21 22:23 Sodium Chloride 0.9% 10 Ml Flush Syringe IV 10 ml BID ROSEMARIE Administration Sodium Chloride 10 ml 05/23/21 20:42 Sodium Chloride 0.9% 10 Ml Flush Syringe IV PRN PRN LINE FLUSH
--- NOTE | 2021-06-02 10:25 | Progress Note ---
Assessment and Plan Acute respiratory failure intubated on the vent an echo shows mild to moderate dilated right heart chambers, mild to moderate TR, with at least moderate pulmonary HTN. RVSP 53 mmHG. Normal LVEF 55%. Renal failure Morbidly obese Underlying sleep apnea pt not able to undergo pulmonary embolism evaluation due to his large size. Conservative cardiac management. Subjective Date of service: 06/02/21 Principal diagnosis: Acute hypoxemic and hypercapnic resp failure; PUI COVID-19; Pneumonia; FERMIN Interval history: Pt remains sedated, on mechanical ventilation. Objective Vital Signs Temp Pulse Pulse Resp Resp BP Pulse Ox 06/02/21 10:00 101 H 23 94/47 92 06/02/21 09:45 102 H 24 101/44 92 06/02/21 09:30 104 H 25 H 113/64 91 06/02/21 09:15 115 H 24 94/42 91 06/02/21 09:00 113 H 25 H 95/39 91 06/02/21 08:45 117 H 24 96/41 90 06/02/21 08:30 124 H 27 H 99/45 90 06/02/21 08:15 129 H 27 H 115/56 92 06/02/21 08:00 146 H 23 178/89 91 06/02/21 07:45 143 H 30 H 185/101 92 06/02/21 07:32 99.9 F H 06/02/21 07:30 29 H 161/98 91 06/02/21 07:23 135 H 161/98 93 06/02/21 07:15 105 H 22 101/50 91 06/02/21 07:00 106 H 21 105/46 91 06/02/21 06:45 119 H 17 120/77 89 06/02/21 06:30 105 H 25 H 96/45 90 06/02/21 06:00 114 H 24 97/40 90 06/02/21 05:30 122 H 25 H 133/72 91 06/02/21 05:00 108 H 25 H 116/60 92 06/02/21 04:30 140 H 25 H 155/97 88 06/02/21 04:28 129 H 155/97 93 06/02/21 04:00 95 H 25 H 114/66 92 06/02/21 03:30 94 H 24 98/48 91 06/02/21 03:27 99.9 F H 06/02/21 03:10 100.0 F H 06/02/21 03:00 102 H 19 93/46 90 06/02/21 02:30 112 H 25 H 93/45 91 06/02/21 02:00 120 H 27 H 111/61 98 06/02/21 01:30 107 H 24 99/50 98 06/02/21 01:10 25 H 74 L 06/02/21 01:00 100.0 F H 100/55 86 06/02/21 00:54 25 H 06/02/21 00:30 97 H 21 100/48 93 06/02/21 00:16 101 H 96/49 93 06/02/21 00:07 112 H 25 H 92 06/02/21 00:04 105 H 19 103/55 92 06/02/21 00:00 100.6 F H 112 H 21 103/55 92 06/01/21 23:54 122 H 18 104/52 91 06/01/21 23:30 118 H 24 108/54 93 06/01/21 23:00 126 H 25 H 103/55 92 06/01/21 22:30 124 H 25 H 107/49 91 06/01/21 22:00 126 H 25 H 114/63 94 06/01/21 21:30 128 H 24 116/64 94 06/01/21 21:00 117 H 24 112/59 95 06/01/21 20:30 113 H 24 110/61 95 06/01/21 20:00 95 H 110 H 25 H 25 H 97/50 93 06/01/21 19:36 100.4 F H 06/01/21 19:30 95 H 25 H 97/52 94 06/01/21 19:00 98.8 F 92 H 25 H 97/48 93 06/01/21 18:30 94 H 25 H 97/48 92 06/01/21 18:00 101 H 25 H 92/49 92 06/01/21 17:30 103 H 25 H 105/48 91 06/01/21 17:00 122 H 26 H 104/54 92 06/01/21 16:30 109 H 25 H 96/46 92 06/01/21 16:00 132 H 24 104/54 96 06/01/21 15:51 99.6 F 06/01/21 15:30 123 H 25 H 120/66 90 06/01/21 15:00 98 H 25 H 95/48 90 06/01/21 14:30 98 H 25 H 99/48 91 06/01/21 14:00 96 H 25 H 106/51 92 06/01/21 13:31 100 H 25 H 06/01/21 13:30 92 H 25 H 103/50 92 06/01/21 13:00 94 H 20 97/45 92 06/01/21 12:30 93 H 21 98/48 91 06/01/21 12:00 94 H 17 101/51 96 06/01/21 11:30 95 H 25 H 104/52 93 06/01/21 11:00 93 H 21 105/51 95 06/01/21 10:30 88 30 H 103/51 95 - Physical Examination General: Other (Sedated on mechanical ventilator) Cardiac: Positive: Tachycardia Neuro: Positive: Other (Unresponsive, on the vent) - Labs and Meds CBC 06/02/21 Range/Units 04:23 WBC 9.9 (4.5-11.0) K/mm3 RBC 3.48 L (3.65-5.03) M/mm3 Hgb 10.1 L (11.8-15.2) gm/dl Hct 33.1 L (35.5-45.6) % Plt Count 156 (140-440) K/mm3 Comprehensive Metabolic Panel 06/02/21 Range/Units 04:23 Sodium 138 (137-145) mmol/L Potassium 4.9 (3.6-5.0) mmol/L Chloride 105.7 (98-107) mmol/L Carbon Dioxide 22 (22-30) mmol/L BUN 61 H (9-20) mg/dL Creatinine 1.7 H (0.8-1.3) mg/dL Glucose 119 H (75-100) mg/dL Calcium 8.7 (8.4-10.2) mg/dL - Allied health notes Allied health notes reviewed: nursing
--- NOTE | 2021-06-02 11:17 | Progress Note ---
Assessment and Plan Assessment and plan: This is a 41-year-old male with past medical history of HTN, REVA and morbid obesity who presented to the ER with severe respiratory distress and eventually was intubated for acute respiratory failure secondatory to possible pneumonia vs pulmonary edema. Patient was also found to have an FERMIN. Patient remains intubated and in the ICU for further management. Hospital Course to Date: 05/24/2021: Patient intubated and sedated. VQ scan ordered secondary to elevated D-dimer. Cardiology consulted secondary to elevated troponin and elevated BNP. Echocardiogram ordered and pending. 05/25/2021: Patient still intubated. Responsive to commands. Hypotensive, norepinephrine increased to 15mcg. Unable to get V/Q scan due to body habitus. 05/26: Overnight patient experienced desaturation to the 80s and FiO2 was increased. This morning on ABG patient exhibited hypoxemia and FiO2 was unchanged. [facility] later increased PEEP and decrease FiO2. Nephrology was consulted due to no recovery in renal function noted. Urine lites were ordered. Hyperkalemia treated medically. 05/27: Patient remains sedated on fentanyl and propofol, [facility] will taper Solu- Medrol and repeat ABG in 1899. Patient received 40 mg of Lasix x1. Slight improvement to renal function noted 05/28: [facility] has started revatio for pulmonary hypertension, we will repeat Lasix today as patient had improvement in renal function. No acute events reported overnight. 05/29: 1900 ABG with improved hypoxia, good UOP noted from lasix. Repeat labs for am. no acute events reported overnight 05/30: FWF decreased. Garcia catheter replaced due to sediment. Family updated today at bedside. 05/31: noted to have persistent tachycardia, given fent bolus without improvement. EKG showed ST, passive leg raise by RN showed decrease in tachycardia therefore given LR. Noted increase in Cr today. MIVF for 2 liters started by [facility]. 06/01/21- Remains intubated, sedation was increased this am due to agitation, Levo was initiated due to hypotension. Patient remains on IVF, D/C once current bag is completed. D/w CCM plan to gently wean vent setting for SPO2 goal above 92%. 06/02/21- Patient remains on the vent, on max support this am. Per RN patient desated this am after he was turned, SPO2 was sustaining in the low 80s. Patient is also spiking temp, TMAX 101 this am, WBC wnl. Orders placed for stat CXR, blood cultureX2, and procal. Will hold off on AbX for now. Will continue to trend CBC, am labs ordered Assessment and Plan #Neuro: Acute metabolic encephalopathy -CT head and C-spine negative for acute process -TSH WNL -Patient is sedated with propofol and fentanyl -Goal RASS 0 to -2 -Avoid delirium -Reorientation as needed -Maintain sleep-wake cycle #CV:Hypotension #Possible CHF #h/o HTN -Cardiology consulted, appreciate recommendations -05/24 echocardiogram showed mild to moderate dilated right heart chambers, LVEF 55% -ProBNP 80488 -Diuretic on hold due to worsen kidney function -Cardiology recommends conservative cardiac management -Maintain adequate perfusion -Continue rehydration with cont. IVF -Patient is back on pressors -Titrate pressors to maintain MAP above 65 -Continue AC- Eliquis #Acute hypoxemic and hypercapnic respiratory failure/ARDS #H/o sleep apnea -Patient intubated on 05/23 -vent settings:PRVC- 100%,12,25,450 -AM ABG noted -CCM consulted, appreciate recommendations -Continue IV Steroids and Nebs per CCM -VAP bundle addressed -Aspiration precaution HOB above 30 -Daily SBT and SAT trials as tolerated -Daily ABG and CXR -Continue SPO2 monitoring for SPO2 goal above 92% #GI: Transaminitis- improved #morbid obesity -NTR consult for tube feedings -Continue enteral nutrition -Continue BR- senokot -Continue PPI- Pepcid -Trend LFTs #: Acute renal failure secondary to vasomotor nephropathy -Initial ProBNP was 8[address]33, was diuresed, now on hold -FENa 0.41% indicating prerenal -Nephrology consulted, appreciate recommendations -Garcia catheter for strict intake and output -Avoid nephrotoxic medications -Renally dose medications -Continue IVF for now -Continue to monitor renal function and electrolytes, replete as needed #Heme: Elevated D-dimer, h/o PE/DVT -VQ scan unable to be performed due to patient being intubated -CTA head unable to be performed due to renal function and size -restarted on home eliquis -SCDs to bilateral lower extremity while in bed -Echocardiogram shows no right heart strain -Trend CBC -Transfuse for hemoglobin less than 7 -Bilateral lower extremity Doppler ultrasound negative for DVT #ID: CAP #leukopenia- improved #coag negative Staphylococcus in blood culture 07/26 -CT showed right upper lobe pneumonia -05/23 UC, tracheal aspirate no growth to date -05/23 blood culture with coag negative staph in 1 of 2 bottles -WBcs 10.8, patient remains afebrile -Completed IV abx course- cefepime and azithromycin - Daily CBC monitor - Consider ID consult if febrile or/and if leukocytosis occur #Endo: Glycemic control -Accu-Cheks every 6 while on tube feedings -SSI if hyperglycemic -Avoid hypoglycemia -Target blood glucose while critically ill less than 180 The high probability of a clinically significant, sudden or life threatening deterioration of the [Neuro,CV,pulm] system(s) required my full and direct a ttention, intervention and personal management. The aggregate critical care time was [60] minutes. This time is in addition to time spent performing reported procedures but includes the following: [x] Data Review and interpretation [x] Patient assessment and monitoring of vital signs [x] Documentation [x] Medication orders and management Disposition Plan: ICU Total Time Spent with Patient (Minutes): 60 History Interval history: Patient seen and examined at the bedside. Remains on the vent and sedated on propofol and fentanyl. Desated in the low 80s this am, now on max support on the vent. NILAY overnight Hospitalist Physical - Constitutional Vitals: Temp Pulse Resp BP Pulse Ox 101.0 F H 101 H 23 94/47 92 06/02/21 08:00 06/02/21 10:00 06/02/21 10:00 06/02/21 10:00 06/02/21 10:00 General appearance: Present: no acute distress, other (Intubated/Sedated) - EENT Eyes: Present: PERRL - Respiratory Respiratory effort: normal Respiratory: bilateral: rhonchi - Cardiovascular Rhythm: regular Heart Sounds: Present: S1 & S2 - Extremities Extremities: no ischemia, pulses intact, pulses symmetrical Extremity abnormal: edema - Peripheral Assessment Generalized Edema Type: Non-pitting Edema Degree: 2+ Capillary Refill: < 3 seconds Skin Temperature: Warm Peripheral Pulses: within normal limits - Abdominal General gastrointestinal: soft, non-tender, normal bowel sounds - Integumentary Integumentary: Present: warm, dry - Psychiatric Psychiatric: other (Intubated/Sedated) - Neurologic Neurologic: other (Intubated/Sedated) - Allied Health Allied health notes reviewed: nursing HEART Score - HEART Score Troponin: Troponin T 0.038 ng/mL (0.00-0.029) H 05/23/21 15:09 Results - Labs CBC & Chem 7: 06/02/21 04:23 06/02/21 04:23 Labs: Laboratory Last Values WBC 9.9 K/mm3 (4.5-11.0) 06/02/21 04:23 RBC 3.48 M/mm3 (3.65-5.03) L 06/02/21 04:23 Hgb 10.1 gm/dl (11.8-15.2) L 06/02/21 04:23 Hct 33.1 % (35.5-45.6) L 06/02/21 04:23 MCV 95 fl (84-94) H 06/02/21 04:23 MCH 29 pg (28-32) 06/02/21 04:23 MCHC 31 % (32-34) L 06/02/21 04:23 RDW 19.9 % (13.2-15.2) H 06/02/21 04:23 Plt Count 156 K/mm3 (140-440) 06/02/21 04:23 Lymph % (Auto) 5.9 % (13.4-35.0) L 05/23/21 15:09 [place] % (Auto) 6.1 % (0.0-7.3) 05/23/21 15:09 Eos % (Auto) 0.2 % (0.0-4.3) 05/23/21 15:09 Baso % (Auto) 0.3 % (0.0-1.8) 05/23/21 15:09 Lymph # (Auto) 0.6 K/mm3 (1.2-5.4) L 05/23/21 15:09 [place] # (Auto) 0.6 K/mm3 (0.0-0.8) 05/23/21 15:09 Eos # (Auto) 0.0 K/mm3 (0.0-0.4) 05/23/21 15:09 Baso # (Auto) 0.0 K/mm3 (0.0-0.1) 05/23/21 15:09 Add Manual Diff Complete 05/24/21 04:55 Total Counted 100 05/24/21 04:55 Seg Neutrophils % Cloth Calender 05/24/21 04:55 Seg Neuts % (Manual) 97.0 % (40.0-70.0) H 05/24/21 04:55 Lymphocytes % (Manual) 3.0 % (13.4-35.0) L 05/24/21 04:55 Nucleated RBC % Not Reportable 05/24/21 04:55 Seg Neutrophils # 8.2 K/mm3 (1.8-7.7) H 05/23/21 15:09 Seg Neutrophils # Man 8.4 K/mm3 (1.8-7.7) H 05/24/21 04:55 Band Neutrophils # 0.0 K/mm3 05/24/21 04:55 Lymphocytes # (Manual) 0.3 K/mm3 (1.2-5.4) L 05/24/21 04:55 Abs React Lymphs (Man) 0.0 K/mm3 05/24/21 04:55 Monocytes # (Manual) 0.0 K/mm3 (0.0-0.8) 05/24/21 04:55 Eosinophils # (Manual) 0.0 K/mm3 (0.0-0.4) 05/24/21 04:55 Basophils # (Manual) 0.0 K/mm3 (0.0-0.1) 05/24/21 04:55 Metamyelocytes # 0.0 K/mm3 05/24/21 04:55 Myelocytes # 0.0 K/mm3 05/24/21 04:55 Promyelocytes # 0.0 K/mm3 05/24/21 04:55 Blast Cells # 0.0 K/mm3 05/24/21 04:55 WBC Morphology Not Reportable 05/24/21 04:55 Hypersegmented Neuts Not Reportable 05/24/21 04:55 Hyposegmented Neuts Not Reportable 05/24/21 04:55 Hypogranular Neuts Not Reportable 05/24/21 04:55 Smudge Cells Not Reportable 05/24/21 04:55 Toxic Granulation Not Reportable 05/24/21 04:55 Toxic Vacuolation Not Reportable 05/24/21 04:55 Dohle Bodies Not Reportable 05/24/21 04:55 Pelger-Huet Anomaly Not Reportable 05/24/21 04:55 Cynthia Rods Not Reportable 05/24/21 04:55 Platelet Estimate Consistent w auto 05/24/21 04:55 Clumped Platelets Not Reportable 05/24/21 04:55 Plt Clumps, EDTA Not Reportable 05/24/21 04:55 Large Platelets Not Reportable 05/24/21 04:55 Giant Platelets Not Reportable 05/24/21 04:55 Platelet Satelliting Not Reportable 05/24/21 04:55 Plt Morphology Comment Not Reportable 05/24/21 04:55 RBC Morphology Not Reportable 05/24/21 04:55 Dimorphic RBCs Not Reportable 05/24/21 04:55 Polychromasia Not Reportable 05/24/21 04:55 Hypochromasia Not Reportable 05/24/21 04:55 Poikilocytosis Not Reportable 05/24/21 04:55 Anisocytosis 1+ 05/24/21 04:55 Microcytosis Not Reportable 05/24/21 04:55 Macrocytosis Not Reportable 05/24/21 04:55 Spherocytes Not Reportable 05/24/21 04:55 Pappenheimer Bodies Not Reportable 05/24/21 04:55 Sickle Cells Not Reportable 05/24/21 04:55 Target Cells Not Reportable 05/24/21 04:55 Tear Drop Cells Not Reportable 05/24/21 04:55 Ovalocytes Not Reportable 05/24/21 04:55 Helmet Cells Not Reportable 05/24/21 04:55 [place] Bodies Not Reportable 05/24/21 04:55 [place] Rings Not Reportable 05/24/21 04:55 [place] Cells Not Reportable 05/24/21 04:55 Bite Cells Not Reportable 05/24/21 04:55 Crenated Cell Not Reportable 05/24/21 04:55 Elliptocytes Not Reportable 05/24/21 04:55 Acanthocytes (Spur) Not Reportable 05/24/21 04:55 Rouleaux Not Reportable 05/24/21 04:55 Hemoglobin C Crystals Not Reportable 05/24/21 04:55 Schistocytes Not Reportable 05/24/21 04:55 Malaria parasites Not Reportable 05/24/21 04:55 Uli Bodies Not Reportable 05/24/21 04:55 Hem Pathologist Commnt No 05/24/21 04:55 PT 15.3 Sec. (12.2-14.9) H 05/29/21 13:40 INR 1.09 (0.87-1.13) 05/29/21 13:40 APTT 25.7 Sec. (24.2-36.6) 05/29/21 13:40 D-Dimer 4444.85 ng/mlDDU (0-234) H 05/23/21 15:09 ABG pH 7.315 (7.320-7.450) L 06/02/21 10:01 POC ABG pCO2 48.0 mmHg (32.0-48.0) 06/02/21 10:01 ABG pCO2 48.1 mm Hg 05/30/21 09:22 POC ABG pO2 62.1 mmHg (83-108) L 06/02/21 10:01 ABG pO2 107.0 mm Hg (80.0-90.0) H 05/30/21 09:22 POC ABG HCO3 8.9 06/02/21 10:01 ABG HCO3 24.4 mmol/L (20.0-26.0) 05/30/21 09:22 ABG O2 Saturation 91.0 (0-100) 06/02/21 10:01 ABG O2 Content 16.8 (0.0-44) 05/30/21 09:22 POC ABG Base Excess -2.4 06/02/21 10:01 ABG Base Excess -1.9 mmol/L (-2.0-3.0) 05/30/21 09:22 ABG Hemoglobin 10.8 (12.0-17.5) L 06/02/21 10:01 ABG Oxyhemoglobin 91.0 (94-98) L 06/02/21 10:01 ABG Carboxyhemoglobin 1.7 % (0.0-5.0) 05/30/21 09:22 ABG Methemoglobin 0.3 (0.0-1.5) 06/02/21 10:01 ABG Sodium 133.5 mmol/L (136.0-145.0) L 06/02/21 10:01 ABG Potassium 5.0 mmol/L (3.40-4.50) H 06/02/21 10:01 ABG Chloride 109.0 mmol/L (98-107) H 06/02/21 10:01 ABG Glucose 124 mg/dL (65-95) H 06/02/21 10:01 Oxyhemoglobin 95.5 % (95.0-99.0) 05/30/21 09: Carboxyhemoglobin 0.7 (0.5-1.5) 06/02/21 10:01 FiO2 65 % 05/30/21 09:22 FiO2 % 1.0 06/02/21 10:01 Sodium 138 mmol/L (137-145) 06/02/21 04:23 Potassium 4.9 mmol/L (3.6-5.0) 06/02/21 04:23 Chloride 105.7 mmol/L (98-107) 06/02/21 04:23 Carbon Dioxide 22 mmol/L (22-30) 06/02/21 04:23 Anion Gap 15 mmol/L 06/02/21 04:23 BUN 61 mg/dL (9-20) H 06/02/21 04:23 Creatinine 1.7 mg/dL (0.8-1.3) H 06/02/21 04:23 Estimated GFR 53 ml/min 06/02/21 04:23 BUN/Creatinine Ratio 36 % 06/02/21 04:23 Glucose 119 mg/dL (75-100) H 06/02/21 04:23 POC Glucose 107 mg/dL (70-105) H 06/02/21 05:40 Lactic Acid 1.50 mmol/L (0.7-2.0) 05/23/21 15:09 Calcium 8.7 mg/dL (8.4-10.2) 06/02/21 04:23 Phosphorus 2.90 mg/dL (2.5-4.5) 05/28/21 05:30 Magnesium 2.40 mg/dL (1.7-2.3) H 05/28/21 05:30 Total Bilirubin 0.60 mg/dL (0.1-1.2) 05/26/21 Unknown AST 64 units/L (5-40) H 05/26/21 Unknown ALT 448 units/L (7-56) H 05/26/21 Unknown Alkaline Phosphatase 58 units/L (35-129) 05/26/21 Unknown Ammonia 30.0 umol/L (25-60) 05/24/21 04:55 Total Creatine Kinase 48 units/L (55-170) L 05/23/21 15:09 Troponin T 0.038 ng/mL (0.00-0.029) H 05/23/21 15:09 C-Reactive Protein 10.00 mg/dL (0.00-1.30) H 05/23/21 19:10 NT-Pro-B Natriuret Pep 65255 pg/mL (0-450) H 05/23/21 15:09 Total Protein 7.0 g/dL (6.3-8.2) 05/26/21 Unknown Albumin 3.4 g/dL (3.9-5) L 05/26/21 Unknown Albumin/Globulin Ratio 0.9 % 05/26/21 Unknown Triglycerides 94 mg/dL (2-149) 05/30/21 07:47 Cholesterol 106 mg/dL (50-199) 05/23/21 15:09 LDL Cholesterol Direct 58 mg/dL (50-130) 05/23/21 15:09 HDL Cholesterol 29 mg/dL (40-59) L 05/23/21 15:09 Cholesterol/HDL Ratio 3.65 % 05/23/21 15:09 Procalcitonin 0.83 ng/mL (<0.15) 05/23/21 15:09 TSH 2.380 mlU/mL (0.270-4.200) 05/23/21 15:09 Arterial Blood Glucose 124 mg/dL (65-95) H 06/02/21 10:01 Arterial Blood Ionized Calcium 4.9 mg/dL (4.6-5.3) 06/02/21 10:01 Urine Color [place] (Yellow) 05/23/21 Unknown Urine Turbidity Slightly-cloudy (Clear) 05/23/21 Unknown Urine pH 5.0 (5.0-7.0) 05/23/21 Unknown Ur Specific [place] 1.014 (1.003-1.030) 05/23/21 Unknown Urine Protein 30 mg/dl mg/dL (Negative) 05/23/21 Unknown Urine Glucose (UA) Neg mg/dL (Negative) 05/23/21 Unknown Urine Ketones Neg mg/dL (Negative) 05/23/21 Unknown Urine Blood Mod (Negative) 05/23/21 Unknown Urine Nitrite Neg (Negative) 05/23/21 Unknown Urine Bilirubin Neg (Negative) 05/23/21 Unknown Urine Urobilinogen 4.0 mg/dL (<2.0) 05/23/21 Unknown Ur Leukocyte Esterase Tr (Negative) 05/23/21 Unknown Urine WBC (Auto) 34.0 /HPF (0.0-6.0) H 05/23/21 Unknown Urine RBC (Auto) 20.0 /HPF (0.0-6.0) 05/23/21 Unknown U Epithel Cells (Auto) 2.0 /HPF (0-13.0) 05/23/21 Unknown Urine Bacteria (Auto) 1+ /HPF (Negative) 05/23/21 Unknown Urine Mucus Few /HPF 05/23/21 Unknown Urine Osmolality 612 Mosm/kg 05/26/21 Unknown Urine Creatinine 128.6 mg/dL (0.1-20.0) H 05/26/21 Unknown Urine Sodium 37 mmol/L 05/26/21 Unknown Urine Potassium 45.15 mmol/L 05/26/21 Unknown Urine Urea Nitrogen 989 05/26/21 Unknown Nasal Screen MRSA (PCR) Positive (Negative) 05/30/21 12:00 Salicylates < 0.3 mg/dL (2.8-20.0) L 05/23/21 15:09 Urine Opiates Screen Negative 05/23/21 Unknown Urine Methadone Screen Negative 05/23/21 Unknown Acetaminophen 5.0 ug/mL (10.0-30.0) L 05/23/21 15:09 Ur Barbiturates Screen Negative 05/23/21 Unknown Ur Phencyclidine Scrn Negative 05/23/21 Unknown Ur Amphetamines Screen Negative 05/23/21 Unknown U Benzodiazepines Scrn Negative 05/23/21 Unknown Urine Cocaine Screen Negative 05/23/21 Unknown U Marijuana (THC) Screen Negative 05/23/21 Unknown Drugs of Abuse Note Disclamer 05/23/21 Unknown Plasma/Serum Alcohol < 0.01 % (0-0.07) 05/23/21 15:09 Coronavirus (PCR) Negative (Negative) 05/23/21 Unknown Blood Type O POSITIVE 05/23/21 15:01 Antibody Screen Negative 05/23/21 15:01 Garcia/IV: Voiding Method Indwelling Catheter Active Medications - Current Medications Current Medications: Generic Name Dose Route Start Last Admin Trade Name Freq PRN Reason Stop Dose Admin Acetaminophen 650 mg 05/23/21 20:42 06/02/21 09:14 Acetaminophen 325 Mg Tab PO 650 mg Q4H PRN Administration Pain MILD(1-3)/Fever >100.5/CASTORENA Albuterol 2.5 mg 05/23/21 21:11 Albuterol 2.5 Mg/3 Ml Nebu IH Q4HRT PRN Shortness Of Breath Albuterol/Ipratropium 1 ampul 05/29/21 08:00 06/02/21 07:23 Ipratropium/Albuterol Sulfate 3 Ml Ampul.Neb IH Not Given TIDRT ROSEMARIE Lipase/Protease/Amylase 1 each 05/24/21 10:14 Lipase 10,500/Protease 25,000/Amylase 43,750 (Units) Dr Cap FEEDTUBE PRN PRN For Clogged Feeding Tube Apixaban 2.5 mg 05/29/21 13:00 06/02/21 09:13 Apixaban 2.5 Mg Tab PO 2.5 mg Q12HR ROSEMARIE Administration Protocol Famotidine 20 mg 05/27/21 10:00 06/02/21 09:13 Famotidine 20 Mg Tab FEEDTUBE 20 mg BID ROSEMARIE Administration Fentanyl 50 mcg 05/23/21 12:34 05/31/21 10:20 Fentanyl 100 Mcg/2 Ml Inj IV 50 mcg Q10MIN PRN Administration ANALGESIA Hydrophilic Ointment 1 applic 05/23/21 12:34 Lip Therapy Vaseline TP Q2HR PRN Dry Lips Fentanyl Citrate 2,000 mcg in 100 mls @ 8.528 mls/hr 05/23/21 13:00 06/02/21 06:54 Fentanyl Drip Premix IV 2 mcg/kg/hr TITR ROSEMARIE 17.055 mls/hr Titration Protocol 1 MCG/KG/HR NORepinephrine/NS 8 MG-250 ML 8 mg in 250 mls @ 3.75 mls/hr 05/24/21 20:00 06/02/21 09:12 Norepinephrine/Ns 8 Mg-250 Ml (Double Conc) IV 2 mcg/min TITRATE ROSEMARIE 3.75 mls/hr Administration Protocol 2 MCG/MIN Propofol 1,000 mg in 100 mls @ 5.117 mls/hr 05/25/21 19:00 06/02/21 07:22 Diprivan 10 Mg/Ml IV 20 mcg/kg/min TITR ROSEMARIE 20.466 mls/hr Administration Protocol 5 MCG/KG/MIN Multi-Ingred Cream/Lotion/Oil/Oint 1 applic 05/23/21 12:34 05/30/21 22:14 Mineral Oil/Petrolatum, White Ophth Oint 3.5 Gm OU 1 applic Q4HR PRN Administration Dry Eye(s) Ondansetron HCl 4 mg 05/23/21 20:42 Ondansetron 4 Mg/2 Ml Inj IV Q8H PRN Nausea And Vomiting Senna/Docusate Sodium 1 tab 05/23/21 22:00 06/02/21 09:13 Sennosides/Docusate Sodium 8.6/50 Mg Tab FEEDTUBE 1 tab BID ROSEMARIE Administration Simple Syrup 15 ml 05/24/21 10:14 Simple Syrup 15 Ml FEEDTUBE PRN PRN Hypoglycemia Simple Syrup 30 ml 05/24/21 10:14 Simple Syrup 15 Ml FEEDTUBE PRN PRN Hypoglycemia Sodium Bicarbonate 325 mg 05/24/21 10:14 Sodium Bicarbonate 325 Mg Tab FEEDTUBE PRN PRN For Clogged Feeding Tube Sodium Chloride 10 ml 05/23/21 22:00 06/01/21 22:23 Sodium Chloride 0.9% 10 Ml Flush Syringe IV 10 ml BID ROSEMARIE Administration Sodium Chloride 10 ml 05/23/21 20:42 Sodium Chloride 0.9% 10 Ml Flush Syringe IV PRN PRN LINE FLUSH Nutrition/Malnutrition Assess - Dietary Evaluation Nutrition/Malnutrition Findings: Nutrition Notes Start: 05/24/21 09:53 Freq: Status: Active Protocol: Document 05/28/21 14:30 GB (Rec: 05/28/21 14:44 GB [id number]) Nutrition Notes Initial or Follow up Reassessment Current Diagnosis Acute Kidney Injury, Hypertension,Respiratory Failure Other Pertinent Diagnosis SIRS, encephalopathy, pneu, transaminitis Current Diet NPO, Tube Feeding Nepro @ 45m/ hr Labs/Tests 05/28: BUN 53, Creatinine 1.6, glucose 118, Ca 8, Mg 2.4 Pertinent Medications Fentanyl Citrate, Norepenephrin/NS 8 Mg 250, Propofol 30.699 ml/hr (810kcal ) Height 5 ft 8 in Weight 170.551 kg [place] Body Weight (kg) 70.00 BMI 57.2 Weight change and time frame No new weights recorded at time of assessment Weight Status Morbidly Obese Subjective/Other Information Pt continues Intubated/sedated 05/28: Chest Xray note: tubes in satisfactory position, No significant changes 05/28: MD note unresponsive on vent BM: no record at time of assessment Percent of energy/protein needs met: TF at goal meets 75% or greater of minimal estimated energy needs Burn Absent Trauma Absent GI Symptoms Other Difficulty In Swallowing Food Allergy No Skin Integrity/Comment wound to left toe Current % PO Other Minimum of two criteria No #1 Nutrition Diagnosis Swallowing difficulty Comments: 05/25: intubation/sedation continues. TF started 05/28: intubation/sedation continues. TF Nepro @ goal 45ml/hr Etiology ARF As Evidenced by Signs and Symptoms Intubated/sedated Diagnosis Progress(for reassessment Continues documentation) Is patient on ventilator? Yes Is Patient Ambulatory and/or Out of Bed No REE-([facility]-confined to bed) 3092.088 Kcal/Kg value to use for calculation 12 Approximate Energy Requirements Using 2047 kcal/Kg Calculation Used for Recommendations Kcal/kg Additional Notes Protein: 0.6g/kg or greater @ 170kg Fluid: 1 ml/kcal or per MD Nutrition Intervention Change Diet Order: Continue NPO, Tube feeding Nutrition Support: Nepro 1.8 at 45 ml/hr Flush 175 ml q4h or per MD Total free water: TF@goal + flush = 1835ml Kcal 1,950 Protein (gm) 88 Carbohydrates (gm) 174 Fat (gm) 104 Fluid (mL) 788 Fiber (gm) 14 % RDI: 100%kcal / 86%pro Goal #1 Meet at least 75% or greater of EEN via TF 05/25: met, continues 05/28: met, continues Goal #2 TF (Nepro) at goal rate (45ml/ hr) by f/u 05/25: TF started 05/28: TF at goal. met, continues Follow-Up By: 06/02/21 Additional Comments F/u: TF tolerance, renal labs, vent status
--- NOTE | 2021-06-02 13:45 | XRay Report ---
CHEST 1 VIEW INDICATION / CLINICAL INFORMATION: Hypoxia. COMPARISON: 05/30/2021, 05/29/2021, 05/28/2021. FINDINGS: SUPPORT DEVICES: Slightly low position of endotracheal tube with tip 2.2 cm above the jade. HEART / MEDIASTINUM: Cardia silhouette is enlarged, but stable LUNGS / PLEURA: Persistent lower lobe predominant airspace disease, slightly improved. No pneumothora x.. ADDITIONAL FINDINGS: No significant additional findings. IMPRESSION: Persistent lower lobe predominant airspace disease, slightly improved. Slightly low position of endotracheal tube with tip 2.2 cm above the jade. Signer Name: Prabhu Love MD Signed: 06/02/2021 1:40 PM Workstation Name: [id number]
[2021-06-03 04:38] LABS: Basophils % (Auto) 0.4 % (0.0-1.8); Eosinophils # (Auto) 0.3 K/mm3 (0.0-0.4); Eosinophils % (Auto) 3.2 % (0.0-4.3); Hematocrit 31.8 % (35.5-45.6); Hemoglobin 9.9 gm/dl (11.8-15.2); Lymphocytes # (Auto) 0.5 K/mm3 (1.2-5.4); Lymphocytes % (Auto) 6.2 % (13.4-35.0); Mean Corpuscular HGB Conc 31 % (32-34); Mean Corpuscular Volume 98 fl (84-94); Monocytes # (Auto) 1.1 K/mm3 (0.0-0.8); Monocytes % (Auto) 13.1 % (0.0-7.3); Platelet Count 147 K/mm3 (140-440); Red Blood Count 3.25 M/mm3 (3.65-5.03); Red Cell Distribution Width 19.9 % (13.2-15.2)
[2021-06-03 04:46] LABS: Calcium 8.2 mg/dL (8.4-10.2)
[2021-06-03] MEDS: fentaNYL DRIP Premix 2,000 MCG/100 ML BAG IV SCH ×6 (05:03→22:47)
[2021-06-03] MEDS: IPRATROPIUM/ALBUTEROL SULFATE 3 ML AMPUL.NEB IH SCH ×3 (07:59→20:41)
[2021-06-03] MEDS: FAMOTIDINE 20 MG TAB FEEDTUBE SCH ×2 (09:19→21:29)
[2021-06-03] MEDS: SENNOSIDES/DOCUSATE SODIUM 8.6/50 MG TAB FEEDTUBE SCH ×2 (09:19→21:29)
[2021-06-03] MEDS: APIXABAN 2.5 MG TAB PO SCH ×2 (09:20→21:29)
--- NOTE | 2021-06-03 12:41 | Progress Note ---
Assessment and Plan Acute possibly on chronic hypoxemic and hypercapnic respiratory failure Pneumonia, community-acquired Acute toxic metabolic encephalopathy Person under investigation for COVID-19 Morbid obesity Obstructive sleep apnea History of hypertension Acute kidney injury Hyperkalemia Elevated serum transaminases Possible shock liver Hyperammonemia Non-ST elevation myocardial infarction - reduced FiO2 to 80% - repeat ABG in am - IVNS @ 75 mls/hr X 2 more liters - stopped Propofol - prn Levophed for target MAP > 65 mmHg - continue care as below otherwise; - continue Eliquis - continue Revatio re: pulm HTN - nephrology input appreciated (azotemia improving) - continue Daily SAT and SBT assessment as tolerated - continue to wean supplemental oxygen for target O2 sat's > 90% acutely - VAP bundle addressed - continue lung protective strategies - continue bronchodilators with pulmonary hygiene per RT - wean per pulmonary driven protocols otherwise - avoid nephrotoxins, renally dose all medications - continue accuchecks with glycemic control per SSI (While critically ill target blood glucose of 140-180 mg/dL; avoid hypoglycemia) - sedation prn for target RASS 0 to -1 - continue to avoid benzodiazepine's, reduce the possibility of delirium - AB's per ID rec's - prn analgesia per CPOT score - Maintenance of sleep-wake cycle, avoid delirium - continue enteral nutritional support at goal rate as tolerated - G.I. & VTE prophylaxis - PT/OT/ROM exercises - continue mobility protocols for pressure ulcer prophylaxis - Monitor hemodynamics closely - continue other care per attending / other consultants - discharge planning ongoing concurrently COVID SPECIFIC INTERVENTIONS - COVID-19 test result pending .... Re-evaluate in am & prn CONDITION: CRITICAL PROGNOSIS: GUARDED CODE STATUS: FULL CODE The high probability of a clinically significant, sudden or life-threatening deterioration of the [respiratory, cardiovascular, renal & neurologic] system(s) required my full and direct attention, intervention and personal management. The aggregate critical care time was [34] minutes without overlap. Time includes spent on; [x] Data Review and interpretation [x] Patient assessment and monitoring of vital signs [x] Documentation [x] Medication orders and management Subjective Date of service: 06/03/21 Principal diagnosis: Acute hypoxemic and hypercapnic resp failure; PUI COVID-19; Pneumonia; FERMIN Interval history: Patient is seen today for: Acute hypoxemic and hypercapnic respiratory failure; PUI NCOVID-19; Pneumonia; CAP; FERMIN; REVA Seen and examined at bedside; 24hour events reviewed; nursing and respiratory care staff consulted; no adverse overnight events reported to me; remains on MVS; weaned off Levophed; tachycardia to 120's today; no emesis or overt aspiration and denies pain; no gross bleeding and FiO2 down to 90%; triglyceride level elevated to 800's Objective Vital Signs - 12hr 06/03/21 06/03/21 06/03/21 00:45 01:00 01:15 Temperature Pulse Rate 106 H 104 H 105 H Pulse Rate [ Anterior Bilateral Throughout] Respiratory 25 H 25 H 25 H Rate Respiratory Rate [Anterior Bilateral Throughout] Blood Pressure 102/48 104/50 112/64 O2 Sat by Pulse 94 94 95 Oximetry 06/03/21 06/03/21 06/03/21 01:30 01:45 02:00 Temperature Pulse Rate 108 H 105 H 107 H Pulse Rate [ Anterior Bilateral Throughout] Respiratory 25 H 25 H 25 H Rate Respiratory Rate [Anterior Bilateral Throughout] Blood Pressure 110/61 100/53 104/52 O2 Sat by Pulse 95 95 93 Oximetry 06/03/21 06/03/21 06/03/21 02:15 02:30 02:45 Temperature Pulse Rate 114 H 113 H 112 H Pulse Rate [ Anterior Bilateral Throughout] Respiratory 25 H 25 H 25 H Rate Respiratory Rate [Anterior Bilateral Throughout] Blood Pressure 105/58 103/56 111/61 O2 Sat by Pulse 91 91 91 Oximetry 06/03/21 06/03/21 06/03/21 03:00 03:15 03:30 Temperature Pulse Rate 122 H 114 H 110 H Pulse Rate [ Anterior Bilateral Throughout] Respiratory 25 H 25 H 25 H Rate Respiratory Rate [Anterior Bilateral Throughout] Blood Pressure 146/90 122/69 114/54 O2 Sat by Pulse 91 94 91 Oximetry 06/03/21 06/03/21 06/03/21 03:40 03:45 04:00 Temperature 98.8 F Pulse Rate 111 H 109 H Pulse Rate [ Anterior Bilateral Throughout] Respiratory 25 H 25 H Rate Respiratory Rate [Anterior Bilateral Throughout] Blood Pressure 114/54 115/57 115/57 O2 Sat by Pulse 92 92 92 Oximetry 06/03/21 06/03/21 06/03/21 04:15 04:30 04:45 Temperature Pulse Rate 113 H 112 H 119 H Pulse Rate [ Anterior Bilateral Throughout] Respiratory 25 H 25 H 28 H Rate Respiratory Rate [Anterior Bilateral Throughout] Blood Pressure 114/58 120/67 133/79 O2 Sat by Pulse 91 93 93 Oximetry 06/03/21 06/03/21 06/03/21 05:00 05:15 05:30 Temperature Pulse Rate 123 H 108 H 109 H Pulse Rate [ Anterior Bilateral Throughout] Respiratory 27 H 22 25 H Rate Respiratory Rate [Anterior Bilateral Throughout] Blood Pressure 115/63 99/47 94/41 O2 Sat by Pulse 99 99 98 Oximetry 06/03/21 06/03/21 06/03/21 05:45 06:00 06:15 Temperature Pulse Rate 115 H 112 H 113 H Pulse Rate [ Anterior Bilateral Throughout] Respiratory 25 H 25 H 25 H Rate Respiratory Rate [Anterior Bilateral Throughout] Blood Pressure 117/61 106/48 127/70 O2 Sat by Pulse 99 96 97 Oximetry 06/03/21 06/03/21 06/03/21 06:30 06:45 07:00 Temperature Pulse Rate 114 H 111 H 115 H Pulse Rate [ Anterior Bilateral Throughout] Respiratory 25 H 25 H 25 H Rate Respiratory Rate [Anterior Bilateral Throughout] Blood Pressure 123/66 115/60 125/63 O2 Sat by Pulse 97 97 97 Oximetry 06/03/21 06/03/21 06/03/21 07:15 07:30 07:45 Temperature Pulse Rate 111 H 110 H 106 H Pulse Rate [ Anterior Bilateral Throughout] Respiratory 25 H 26 H 25 H Rate Respiratory Rate [Anterior Bilateral Throughout] Blood Pressure 116/57 118/59 104/45 O2 Sat by Pulse 97 98 98 Oximetry 06/03/21 06/03/21 06/03/21 07:57 07:59 08:00 Temperature 98.6 F Pulse Rate 104 H 106 H Pulse Rate [ 106 H Anterior Bilateral Throughout] Respiratory 26 H Rate Respiratory 25 H Rate [Anterior Bilateral Throughout] Blood Pressure 104/45 110/54 O2 Sat by Pulse 97 97 Oximetry 06/03/21 06/03/21 06/03/21 08:15 08:30 08:45 Temperature Pulse Rate 111 H 106 H 108 H Pulse Rate [ Anterior Bilateral Throughout] Respiratory 25 H 25 H 25 H Rate Respiratory Rate [Anterior Bilateral Throughout] Blood Pressure 103/49 103/47 101/47 O2 Sat by Pulse 95 98 97 Oximetry 06/03/21 06/03/21 06/03/21 09:00 09:15 09:30 Temperature Pulse Rate 106 H 105 H 114 H Pulse Rate [ Anterior Bilateral Throughout] Respiratory 25 H 26 H 13 Rate Respiratory Rate [Anterior Bilateral Throughout] Blood Pressure 104/49 101/50 108/61 O2 Sat by Pulse 97 98 97 Oximetry 06/03/21 06/03/21 06/03/21 09:45 10:00 10:15 Temperature Pulse Rate 116 H 114 H 121 H Pulse Rate [ Anterior Bilateral Throughout] Respiratory 24 25 H 26 H Rate Respiratory Rate [Anterior Bilateral Throughout] Blood Pressure 119/60 101/52 124/64 O2 Sat by Pulse 96 97 96 Oximetry 06/03/21 06/03/21 06/03/21 10:30 10:45 11:00 Temperature Pulse Rate 148 H 137 H 139 H Pulse Rate [ Anterior Bilateral Throughout] Respiratory 15 17 25 H Rate Respiratory Rate [Anterior Bilateral Throughout] Blood Pressure 124/64 114/56 121/69 O2 Sat by Pulse 92 96 95 Oximetry 06/03/21 06/03/21 06/03/21 11:15 11:30 11:45 Temperature Pulse Rate 138 H 137 H 134 H Pulse Rate [ Anterior Bilateral Throughout] Respiratory 25 H 25 H 25 H Rate Respiratory Rate [Anterior Bilateral Throughout] Blood Pressure 124/60 113/56 120/55 O2 Sat by Pulse 96 95 95 Oximetry 06/03/21 06/03/21 12:00 12:15 Temperature 99.1 F Pulse Rate 137 H 124 H Pulse Rate [ Anterior Bilateral Throughout] Respiratory 25 H 25 H Rate Respiratory Rate [Anterior Bilateral Throughout] Blood Pressure 114/55 110/47 O2 Sat by Pulse 96 97 Oximetry Constitutional: appears uncomfortable, other (middle aged morbidly obese male with mildly increased respiratory effort at rest on MVS) Eyes: non-icteric ENT: oropharynx moist, other (ETT 24 cm FRANCIS) Neck: supple, no lymphadenopathy, no JVD Effort: mildly labored Ascultation: Bilateral: diminished breath sounds, rhonchi Percussion: Bilateral: not dull Cardiovascular: regular rate and rhythm Gastrointestinal: normoactive bowel sounds, soft, non-tender, non-distended Integumentary: rash (stasis dermatitis) Extremities: no cyanosis, pulses normal, no ischemia or petechiae, edema (trace) Neurologic: non-focal exam (grossly), pupils equal and round, CN II-XII normal, other (sedated) Psychiatric: other (sedated) CBC and BMP: 06/03/21 04:10 06/03/21 04:10 ABG, PT/INR, D-dimer: ABG ABG pH 7.315 (7.320-7.450) L 06/02/21 10:01 POC ABG pCO2 48.0 mmHg (32.0-48.0) 06/02/21 10:01 ABG pCO2 48.1 mm Hg 05/30/21 09:22 POC ABG pO2 62.1 mmHg (83-108) L 06/02/21 10:01 ABG pO2 107.0 mm Hg (80.0-90.0) H 05/30/21 09:22 POC ABG HCO3 8.9 06/02/21 10:01 ABG O2 Saturation 91.0 (0-100) 06/02/21 10:01 PT/INR, D-dimer PT 15.3 Sec. (12.2-14.9) H 05/29/21 13:40 INR 1.09 (0.87-1.13) 05/29/21 13:40 D-Dimer 4444.85 ng/mlDDU (0-234) H 05/23/21 15:09 Abnormal lab findings: Abnormal Labs 05/23/21 05/23/21 05/23/21 15:00 15:09 15:09 WBC RBC Hgb Hct MCV 95 H MCHC 30 L RDW 20.1 H Plt Count Lymph % (Auto) 5.9 L Kay % (Auto) Lymph # (Auto) 0.6 L Kay # (Auto) Seg Neutrophils % 87.5 H Seg Neuts % (Manual) Lymphocytes % (Manual) Seg Neutrophils # 8.2 H Seg Neutrophils # Man Lymphocytes # (Manual) PT 18.1 H INR 1.36 H APTT 23.1 L D-Dimer ABG pH 7.215 L POC ABG pCO2 POC ABG pO2 ABG pO2 ABG HCO3 28.4 H ABG O2 Saturation ABG Base Excess ABG Hemoglobin 13.5 L ABG Oxyhemoglobin ABG Sodium ABG Potassium ABG Chloride ABG Glucose Oxyhemoglobin 92.6 L Sodium Potassium Carbon Dioxide BUN Creatinine Glucose POC Glucose Calcium Magnesium AST ALT Ammonia Total Creatine Kinase Troponin T C-Reactive Protein NT-Pro-B Natriuret Pep Albumin Triglycerides HDL Cholesterol Arterial Blood Glucose Urine WBC (Auto) Urine Creatinine Salicylates Acetaminophen 05/23/21 05/23/21 05/23/21 15:09 15:09 15:09 WBC RBC Hgb Hct MCV MCHC RDW Plt Count Lymph % (Auto) Kay % (Auto) Lymph # (Auto) Kay # (Auto) Seg Neutrophils % Seg Neuts % (Manual) Lymphocytes % (Manual) Seg Neutrophils # Seg Neutrophils # Man Lymphocytes # (Manual) PT INR APTT D-Dimer ABG pH POC ABG pCO2 POC ABG pO2 ABG pO2 ABG HCO3 ABG O2 Saturation ABG Base Excess ABG Hemoglobin ABG Oxyhemoglobin ABG Sodium ABG Potassium ABG Chloride ABG Glucose Oxyhemoglobin Sodium Potassium 5.2 H Carbon Dioxide BUN 40 H Creatinine 3.2 H Glucose 133 H POC Glucose Calcium Magnesium AST 1094 H ALT 1089 H Ammonia 75.0 H Total Creatine Kinase Troponin T 0.038 H C-Reactive Protein NT-Pro-B Natriuret Pep Albumin 3.0 L Triglycerides HDL Cholesterol 29 L Arterial Blood Glucose Urine WBC (Auto) Urine Creatinine Salicylates < 0.3 L Acetaminophen 05/23/21 05/23/21 05/23/21 15:09 15:09 15:09 WBC RBC Hgb Hct MCV MCHC RDW Plt Count Lymph % (Auto) Kay % (Auto) Lymph # (Auto) Kay # (Auto) Seg Neutrophils % Seg Neuts % (Manual) Lymphocytes % (Manual) Seg Neutrophils # Seg Neutrophils # Man Lymphocytes # (Manual) PT INR APTT D-Dimer 4444.85 H ABG pH POC ABG pCO2 POC ABG pO2 ABG pO2 ABG HCO3 ABG O2 Saturation ABG Base Excess ABG Hemoglobin ABG Oxyhemoglobin ABG Sodium ABG Potassium ABG Chloride ABG Glucose Oxyhemoglobin Sodium Potassium Carbon Dioxide BUN Creatinine Glucose POC Glucose Calcium Magnesium AST ALT Ammonia Total Creatine Kinase 48 L Troponin T C-Reactive Protein NT-Pro-B Natriuret Pep 37113 H Albumin Triglycerides HDL Cholesterol Arterial Blood Glucose Urine WBC (Auto) Urine Creatinine Salicylates Acetaminophen 5.0 L 05/23/21 05/23/21 05/23/21 19:10 20:48 Unknown WBC RBC Hgb Hct MCV MCHC RDW Plt Count Lymph % (Auto) Kay % (Auto) Lymph # (Auto) Kay # (Auto) Seg Neutrophils % Seg Neuts % (Manual) Lymphocytes % (Manual) Seg Neutrophils # Seg Neutrophils # Man Lymphocytes # (Manual) PT INR APTT D-Dimer ABG pH 7.332 L POC ABG pCO2 POC ABG pO2 ABG pO2 74.0 L ABG HCO3 ABG O2 Saturation 94.4 L ABG Base Excess ABG Hemoglobin 12.5 L ABG Oxyhemoglobin ABG Sodium ABG Potassium ABG Chloride ABG Glucose Oxyhemoglobin 92.3 L Sodium Potassium Carbon Dioxide BUN Creatinine Glucose POC Glucose Calcium Magnesium AST ALT Ammonia Total Creatine Kinase Troponin T C-Reactive Protein 10.00 H NT-Pro-B Natriuret Pep Albumin Triglycerides HDL Cholesterol Arterial Blood Glucose Urine WBC (Auto) 34.0 H Urine Creatinine Salicylates Acetaminophen 05/24/21 05/24/21 05/24/21 04:55 04:55 09:15 WBC RBC Hgb Hct MCV 95 H MCHC 31 L RDW 19.4 H Plt Count Lymph % (Auto) Kay % (Auto) Lymph # (Auto) Kay # (Auto) Seg Neutrophils % Seg Neuts % (Manual) 97.0 H Lymphocytes % (Manual) 3.0 L Seg Neutrophils # Seg Neutrophils # Man 8.4 H Lymphocytes # (Manual) 0.3 L PT INR APTT D-Dimer ABG pH POC ABG pCO2 POC ABG pO2 ABG pO2 90.6 H ABG HCO3 ABG O2 Saturation ABG Base Excess -3.7 L ABG Hemoglobin 13.5 L ABG Oxyhemoglobin ABG Sodium ABG Potassium ABG Chloride ABG Glucose Oxyhemoglobin Sodium Potassium 5.5 H Carbon Dioxide 20 L BUN 39 H Creatinine 2.2 H Glucose 155 H POC Glucose Calcium 8.3 L Magnesium AST 571 H ALT 951 H Ammonia Total Creatine Kinase Troponin T C-Reactive Protein NT-Pro-B Natriuret Pep Albumin 3.2 L Triglycerides HDL Cholesterol Arterial Blood Glucose Urine WBC (Auto) Urine Creatinine Salicylates Acetaminophen 05/25/21 05/25/21 05/25/21 04:20 14:37 14:37 WBC RBC Hgb Hct MCV 96 H MCHC 30 L RDW 20.7 H Plt Count Lymph % (Auto) Kay % (Auto) Lymph # (Auto) Kay # (Auto) Seg Neutrophils % Seg Neuts % (Manual) Lymphocytes % (Manual) Seg Neutrophils # Seg Neutrophils # Man Lymphocytes # (Manual) PT INR APTT D-Dimer ABG pH 7.222 L POC ABG pCO2 57.8 H POC ABG pO2 67.3 L ABG pO2 ABG HCO3 ABG O2 Saturation ABG Base Excess ABG Hemoglobin ABG Oxyhemoglobin 89.1 L ABG Sodium ABG Potassium 5.1 H ABG Chloride ABG Glucose 182 H Oxyhemoglobin Sodium Potassium 5.3 H Carbon Dioxide BUN 47 H Creatinine 2.0 H Glucose 154 H POC Glucose Calcium Magnesium AST 93 H ALT 590 H Ammonia Total Creatine Kinase Troponin T C-Reactive Protein NT-Pro-B Natriuret Pep Albumin 3.6 L Triglycerides HDL Cholesterol Arterial Blood Glucose 182 H Urine WBC (Auto) Urine Creatinine Salicylates Acetaminophen 05/25/21 05/25/21 05/26/21 21:50 23:30 05:31 WBC RBC Hgb Hct MCV MCHC RDW Plt Count Lymph % (Auto) Kay % (Auto) Lymph # (Auto) Kay # (Auto) Seg Neutrophils % Seg Neuts % (Manual) Lymphocytes % (Manual) Seg Neutrophils # Seg Neutrophils # Man Lymphocytes # (Manual) PT INR APTT D-Dimer ABG pH 7.328 L POC ABG pCO2 POC ABG pO2 ABG pO2 63.3 L ABG HCO3 ABG O2 Saturation 92.1 L ABG Base Excess -2.4 L ABG Hemoglobin 11.3 L ABG Oxyhemoglobin ABG Sodium ABG Potassium ABG Chloride ABG Glucose Oxyhemoglobin 90.3 L Sodium Potassium Carbon Dioxide BUN Creatinine Glucose POC Glucose 131 H 123 H Calcium Magnesium AST ALT Ammonia Total Creatine Kinase Troponin T C-Reactive Protein NT-Pro-B Natriuret Pep Albumin Triglycerides HDL Cholesterol Arterial Blood Glucose Urine WBC (Auto) Urine Creatinine Salicylates Acetaminophen 05/26/21 05/26/21 05/26/21 09:02 10:57 17:30 WBC RBC Hgb Hct MCV MCHC RDW Plt Count Lymph % (Auto) Kay % (Auto) Lymph # (Auto) Kay # (Auto) Seg Neutrophils % Seg Neuts % (Manual) Lymphocytes % (Manual) Seg Neutrophils # Seg Neutrophils # Man Lymphocytes # (Manual) PT INR APTT D-Dimer ABG pH 7.346 L POC ABG pCO2 POC ABG pO2 ABG pO2 60.5 L ABG HCO3 ABG O2 Saturation 90.7 L ABG Base Excess ABG Hemoglobin 13.1 L ABG Oxyhemoglobin ABG Sodium ABG Potassium ABG Chloride ABG Glucose Oxyhemoglobin 88.9 L Sodium Potassium Carbon Dioxide BUN Creatinine Glucose POC Glucose 127 H 141 H Calcium Magnesium AST ALT Ammonia Total Creatine Kinase Troponin T C-Reactive Protein NT-Pro-B Natriuret Pep Albumin Triglycerides HDL Cholesterol Arterial Blood Glucose Urine WBC (Auto) Urine Creatinine Salicylates Acetaminophen 05/26/21 05/26/21 05/26/21 21:00 Unknown Unknown WBC 4.2 L RBC Hgb 11.7 L Hct MCV MCHC 31 L RDW 20.3 H Plt Count 132 L Lymph % (Auto) Kay % (Auto) Lymph # (Auto) Kay # (Auto) Seg Neutrophils % Seg Neuts % (Manual) Lymphocytes % (Manual) Seg Neutrophils # Seg Neutrophils # Man Lymphocytes # (Manual) PT INR APTT D-Dimer ABG pH POC ABG pCO2 POC ABG pO2 56.7 L ABG pO2 ABG HCO3 ABG O2 Saturation ABG Base Excess ABG Hemoglobin ABG Oxyhemoglobin 88.8 L ABG Sodium ABG Potassium 4.7 H ABG Chloride ABG Glucose 152 H Oxyhemoglobin Sodium Potassium 5.2 H Carbon Dioxide BUN 47 H Creatinine 2.0 H Glucose 136 H POC Glucose Calcium Magnesium AST 64 H ALT 448 H Ammonia Total Creatine Kinase Troponin T C-Reactive Protein NT-Pro-B Natriuret Pep Albumin 3.4 L Triglycerides HDL Cholesterol Arterial Blood Glucose 152 H Urine WBC (Auto) Urine Creatinine Salicylates Acetaminophen 05/26/21 05/27/21 05/27/21 Unknown 08:00 08:00 WBC 4.2 L RBC Hgb Hct MCV MCHC RDW 21.2 H Plt Count 126 L Lymph % (Auto) Kay % (Auto) Lymph # (Auto) Kay # (Auto) Seg Neutrophils % Seg Neuts % (Manual) Lymphocytes % (Manual) Seg Neutrophils # Seg Neutrophils # Man Lymphocytes # (Manual) PT INR APTT D-Dimer ABG pH POC ABG pCO2 POC ABG pO2 ABG pO2 ABG HCO3 ABG O2 Saturation ABG Base Excess ABG Hemoglobin ABG Oxyhemoglobin ABG Sodium ABG Potassium ABG Chloride ABG Glucose Oxyhemoglobin Sodium Potassium Carbon Dioxide BUN 52 H Creatinine 1.8 H Glucose 171 H POC Glucose Calcium 8.3 L Magnesium AST ALT Ammonia Total Creatine Kinase Troponin T C-Reactive Protein NT-Pro-B Natriuret Pep Albumin Triglycerides HDL Cholesterol Arterial Blood Glucose Urine WBC (Auto) Urine Creatinine 128.6 H Salicylates Acetaminophen 05/27/21 05/27/21 05/27/21 10:15 11:48 17:13 WBC RBC Hgb Hct MCV MCHC RDW Plt Count Lymph % (Auto) Kay % (Auto) Lymph # (Auto) Kay # (Auto) Seg Neutrophils % Seg Neuts % (Manual) Lymphocytes % (Manual) Seg Neutrophils # Seg Neutrophils # Man Lymphocytes # (Manual) PT INR APTT D-Dimer ABG pH 7.300 L POC ABG pCO2 POC ABG pO2 ABG pO2 42.1 L ABG HCO3 ABG O2 Saturation 72.8 L ABG Base Excess ABG Hemoglobin 12.7 L ABG Oxyhemoglobin ABG Sodium ABG Potassium ABG Chloride ABG Glucose Oxyhemoglobin 71.4 L Sodium Potassium Carbon Dioxide BUN Creatinine Glucose POC Glucose 139 H 145 H Calcium Magnesium AST ALT Ammonia Total Creatine Kinase Troponin T C-Reactive Protein NT-Pro-B Natriuret Pep Albumin Triglycerides HDL Cholesterol Arterial Blood Glucose Urine WBC (Auto) Urine Creatinine Salicylates Acetaminophen 05/28/21 05/28/21 05/28/21 05:30 11:37 13:32 WBC RBC Hgb Hct MCV MCHC RDW Plt Count Lymph % (Auto) Kay % (Auto) Lymph # (Auto) Kay # (Auto) Seg Neutrophils % Seg Neuts % (Manual) Lymphocytes % (Manual) Seg Neutrophils # Seg Neutrophils # Man Lymphocytes # (Manual) PT INR APTT D-Dimer ABG pH 7.339 L POC ABG pCO2 POC ABG pO2 ABG pO2 53.7 L ABG HCO3 ABG O2 Saturation 86.5 L ABG Base Excess ABG Hemoglobin 12.3 L ABG Oxyhemoglobin ABG Sodium ABG Potassium ABG Chloride ABG Glucose Oxyhemoglobin 84.6 L Sodium Potassium Carbon Dioxide BUN 53 H Creatinine 1.6 H Glucose 118 H POC Glucose 115 H Calcium 8.0 L Magnesium 2.40 H AST ALT Ammonia Total Creatine Kinase Troponin T C-Reactive Protein NT-Pro-B Natriuret Pep Albumin Triglycerides HDL Cholesterol Arterial Blood Glucose Urine WBC (Auto) Urine Creatinine Salicylates Acetaminophen 05/28/21 05/29/21 05/29/21 Unknown 09:43 13:40 WBC RBC Hgb 11.7 L Hct MCV MCHC 31 L RDW 21.3 H 20.9 H Plt Count 121 L 103 L Lymph % (Auto) Kay % (Auto) Lymph # (Auto) Kay # (Auto) Seg Neutrophils % Seg Neuts % (Manual) Lymphocytes % (Manual) Seg Neutrophils # Seg Neutrophils # Man Lymphocytes # (Manual) PT INR APTT D-Dimer ABG pH POC ABG pCO2 POC ABG pO2 ABG pO2 60.9 L ABG HCO3 ABG O2 Saturation 90.7 L ABG Base Excess ABG Hemoglobin 12.0 L ABG Oxyhemoglobin ABG Sodium ABG Potassium ABG Chloride ABG Glucose Oxyhemoglobin 88.9 L Sodium Potassium Carbon Dioxide BUN Creatinine Glucose POC Glucose Calcium Magnesium AST ALT Ammonia Total Creatine Kinase Troponin T C-Reactive Protein NT-Pro-B Natriuret Pep Albumin Triglycerides HDL Cholesterol Arterial Blood Glucose Urine WBC (Auto) Urine Creatinine Salicylates Acetaminophen 05/29/21 05/29/21 05/30/21 13:40 13:40 04:42 WBC RBC Hgb 11.7 L Hct MCV 95 H MCHC RDW 20.8 H Plt Count 106 L Lymph % (Auto) Kay % (Auto) Lymph # (Auto) Kay # (Auto) Seg Neutrophils % Seg Neuts % (Manual) Lymphocytes % (Manual) Seg Neutrophils # Seg Neutrophils # Man Lymphocytes # (Manual) PT 15.3 H INR APTT D-Dimer ABG pH POC ABG pCO2 POC ABG pO2 ABG pO2 ABG HCO3 ABG O2 Saturation ABG Base Excess ABG Hemoglobin ABG Oxyhemoglobin ABG Sodium ABG Potassium ABG Chloride ABG Glucose Oxyhemoglobin Sodium Potassium Carbon Dioxide BUN Creatinine 1.7 H Glucose POC Glucose Calcium Magnesium AST ALT Ammonia Total Creatine Kinase Troponin T C-Reactive Protein NT-Pro-B Natriuret Pep Albumin Triglycerides HDL Cholesterol Arterial Blood Glucose Urine WBC (Auto) Urine Creatinine Salicylates Acetaminophen 05/30/21 05/30/21 05/30/21 04:42 07:47 09:22 WBC RBC Hgb Hct MCV MCHC RDW Plt Count Lymph % (Auto) Kay % (Auto) Lymph # (Auto) Kay # (Auto) Seg Neutrophils % Seg Neuts % (Manual) Lymphocytes % (Manual) Seg Neutrophils # Seg Neutrophils # Man Lymphocytes # (Manual) PT INR APTT D-Dimer ABG pH 7.323 L POC ABG pCO2 POC ABG pO2 ABG pO2 107.0 H ABG HCO3 ABG O2 Saturation ABG Base Excess ABG Hemoglobin 12.4 L ABG Oxyhemoglobin ABG Sodium ABG Potassium ABG Chloride ABG Glucose Oxyhemoglobin Sodium 135 L Potassium Carbon Dioxide BUN 63 H 63 H Creatinine 1.6 H 1.6 H Glucose POC Glucose Calcium 8.2 L Magnesium AST ALT Ammonia Total Creatine Kinase Troponin T C-Reactive Protein NT-Pro-B Natriuret Pep Albumin Triglycerides HDL Cholesterol Arterial Blood Glucose Urine WBC (Auto) Urine Creatinine Salicylates Acetaminophen 05/31/21 05/31/21 05/31/21 05:16 05:16 05:17 WBC RBC Hgb 11.1 L Hct MCV MCHC 31 L RDW 20.8 H Plt Count 116 L Lymph % (Auto) Kay % (Auto) Lymph # (Auto) Kay # (Auto) Seg Neutrophils % Seg Neuts % (Manual) Lymphocytes % (Manual) Seg Neutrophils # Seg Neutrophils # Man Lymphocytes # (Manual) PT INR APTT D-Dimer ABG pH POC ABG pCO2 POC ABG pO2 ABG pO2 ABG HCO3 ABG O2 Saturation ABG Base Excess ABG Hemoglobin ABG Oxyhemoglobin ABG Sodium ABG Potassium ABG Chloride ABG Glucose Oxyhemoglobin Sodium Potassium Carbon Dioxide BUN 62 H Creatinine 1.9 H Glucose 103 H POC Glucose 109 H Calcium Magnesium AST ALT Ammonia Total Creatine Kinase Troponin T C-Reactive Protein NT-Pro-B Natriuret Pep Albumin Triglycerides HDL Cholesterol Arterial Blood Glucose Urine WBC (Auto) Urine Creatinine Salicylates Acetaminophen 05/31/21 05/31/21 06/01/21 16:49 Unknown 03:06 WBC RBC Hgb Hct MCV MCHC RDW Plt Count Lymph % (Auto) Kay % (Auto) Lymph # (Auto) Kay # (Auto) Seg Neutrophils % Seg Neuts % (Manual) Lymphocytes % (Manual) Seg Neutrophils # Seg Neutrophils # Man Lymphocytes # (Manual) PT INR APTT D-Dimer ABG pH POC ABG pCO2 48.4 H POC ABG pO2 63.0 L 55.0 L ABG pO2 ABG HCO3 ABG O2 Saturation ABG Base Excess ABG Hemoglobin 11.9 L 10.9 L ABG Oxyhemoglobin 91.4 L 87.5 L ABG Sodium 127.4 L ABG Potassium 4.6 H 4.6 H ABG Chloride 108.0 H ABG Glucose 110 H 108 H Oxyhemoglobin Sodium Potassium Carbon Dioxide BUN Creatinine Glucose POC Glucose 107 H Calcium Magnesium AST ALT Ammonia Total Creatine Kinase Troponin T C-Reactive Protein NT-Pro-B Natriuret Pep Albumin Triglycerides HDL Cholesterol Arterial Blood Glucose 110 H 108 H Urine WBC (Auto) Urine Creatinine Salicylates Acetaminophen 06/01/21 06/01/21 06/01/21 07:00 07:00 17:09 WBC RBC Hgb 11.2 L Hct MCV 96 H MCHC 31 L RDW 20.6 H Plt Count Lymph % (Auto) Kay % (Auto) Lymph # (Auto) Kay # (Auto) Seg Neutrophils % Seg Neuts % (Manual) Lymphocytes % (Manual) Seg Neutrophils # Seg Neutrophils # Man Lymphocytes # (Manual) PT INR APTT D-Dimer ABG pH POC ABG pCO2 POC ABG pO2 ABG pO2 ABG HCO3 ABG O2 Saturation ABG Base Excess ABG Hemoglobin ABG Oxyhemoglobin ABG Sodium ABG Potassium ABG Chloride ABG Glucose Oxyhemoglobin Sodium Potassium Carbon Dioxide BUN 59 H Creatinine 1.6 H Glucose 104 H POC Glucose 106 H Calcium Magnesium AST ALT Ammonia Total Creatine Kinase Troponin T C-Reactive Protein NT-Pro-B Natriuret Pep Albumin Triglycerides HDL Cholesterol Arterial Blood Glucose Urine WBC (Auto) Urine Creatinine Salicylates Acetaminophen 06/01/21 06/02/21 06/02/21 23:42 04:23 04:23 WBC RBC 3.48 L Hgb 10.1 L Hct 33.1 L MCV 95 H MCHC 31 L RDW 19.9 H Plt Count Lymph % (Auto) Kay % (Auto) Lymph # (Auto) Kay # (Auto) Seg Neutrophils % Seg Neuts % (Manual) Lymphocytes % (Manual) Seg Neutrophils # Seg Neutrophils # Man Lymphocytes # (Manual) PT INR APTT D-Dimer ABG pH POC ABG pCO2 POC ABG pO2 ABG pO2 ABG HCO3 ABG O2 Saturation ABG Base Excess ABG Hemoglobin ABG Oxyhemoglobin ABG Sodium ABG Potassium ABG Chloride ABG Glucose Oxyhemoglobin Sodium Potassium Carbon Dioxide BUN 61 H Creatinine 1.7 H Glucose 119 H POC Glucose 109 H Calcium Magnesium AST ALT Ammonia Total Creatine Kinase Troponin T C-Reactive Protein NT-Pro-B Natriuret Pep Albumin Triglycerides HDL Cholesterol Arterial Blood Glucose Urine WBC (Auto) Urine Creatinine Salicylates Acetaminophen 06/02/21 06/02/21 06/02/21 05:38 05:40 10:01 WBC RBC Hgb Hct MCV MCHC RDW Plt Count Lymph % (Auto) Kay % (Auto) Lymph # (Auto) Kay # (Auto) Seg Neutrophils % Seg Neuts % (Manual) Lymphocytes % (Manual) Seg Neutrophils # Seg Neutrophils # Man Lymphocytes # (Manual) PT INR APTT D-Dimer ABG pH 7.315 L POC ABG pCO2 POC ABG pO2 62.1 L ABG pO2 ABG HCO3 ABG O2 Saturation ABG Base Excess ABG Hemoglobin 10.8 L ABG Oxyhemoglobin 91.0 L ABG Sodium 133.5 L ABG Potassium 5.0 H ABG Chloride 109.0 H ABG Glucose 124 H Oxyhemoglobin Sodium Potassium Carbon Dioxide BUN Creatinine Glucose POC Glucose 49 L 107 H Calcium Magnesium AST ALT Ammonia Total Creatine Kinase Troponin T C-Reactive Protein NT-Pro-B Natriuret Pep Albumin Triglycerides HDL Cholesterol Arterial Blood Glucose 124 H Urine WBC (Auto) Urine Creatinine Salicylates Acetaminophen 06/02/21 06/03/21 06/03/21 11:26 04:10 04:10 WBC RBC 3.25 L Hgb 9.9 L Hct 31.8 L MCV 98 H MCHC 31 L RDW 19.9 H Plt Count Lymph % (Auto) 6.2 L Kay % (Auto) 13.1 H Lymph # (Auto) 0.5 L Kay # (Auto) 1.1 H Seg Neutrophils % Seg Neuts % (Manual) Lymphocytes % (Manual) Seg Neutrophils # Seg Neutrophils # Man Lymphocytes # (Manual) PT INR APTT D-Dimer ABG pH POC ABG pCO2 POC ABG pO2 ABG pO2 ABG HCO3 ABG O2 Saturation ABG Base Excess ABG Hemoglobin ABG Oxyhemoglobin ABG Sodium ABG Potassium ABG Chloride ABG Glucose Oxyhemoglobin Sodium Potassium Carbon Dioxide BUN Creatinine Glucose POC Glucose 117 H Calcium Magnesium AST ALT Ammonia Total Creatine Kinase Troponin T C-Reactive Protein NT-Pro-B Natriuret Pep Albumin Triglycerides 830 H HDL Cholesterol Arterial Blood Glucose Urine WBC (Auto) Urine Creatinine Salicylates Acetaminophen 06/03/21 06/03/21 04:10 05:36 WBC RBC Hgb Hct MCV MCHC RDW Plt Count Lymph % (Auto) Kay % (Auto) Lymph # (Auto) Kay # (Auto) Seg Neutrophils % Seg Neuts % (Manual) Lymphocytes % (Manual) Seg Neutrophils # Seg Neutrophils # Man Lymphocytes # (Manual) PT INR APTT D-Dimer ABG pH POC ABG pCO2 POC ABG pO2 ABG pO2 ABG HCO3 ABG O2 Saturation ABG Base Excess ABG Hemoglobin ABG Oxyhemoglobin ABG Sodium ABG Potassium ABG Chloride ABG Glucose Oxyhemoglobin Sodium 136 L Potassium Carbon Dioxide 20 L BUN 57 H Creatinine 1.7 H Glucose 108 H POC Glucose 114 H Calcium 8.2 L Magnesium AST ALT Ammonia Total Creatine Kinase Troponin T C-Reactive Protein NT-Pro-B Natriuret Pep Albumin Triglycerides HDL Cholesterol Arterial Blood Glucose Urine WBC (Auto) Urine Creatinine Salicylates Acetaminophen Chest x-ray: image reviewed (mild improvements in atelectasis / hypoventilation) Allied health notes reviewed: nursing
--- NOTE | 2021-06-03 12:47 | Progress Note ---
Assessment and Plan Assessment and plan: This is a 41-year-old male with past medical history of HTN, REVA and morbid obesity who presented to the ER with severe respiratory distress and eventually was intubated for acute respiratory failure secondatory to possible pneumonia vs pulmonary edema. Patient was also found to have an FERMIN. Patient remains intubated and in the ICU for further management. Hospital Course to Date: 05/24/2021: Patient intubated and sedated. VQ scan ordered secondary to elevated D-dimer. Cardiology consulted secondary to elevated troponin and elevated BNP. Echocardiogram ordered and pending. 05/25/2021: Patient still intubated. Responsive to commands. Hypotensive, norepinephrine increased to 15mcg. Unable to get V/Q scan due to body habitus. 05/26: Overnight patient experienced desaturation to the 80s and FiO2 was increased. This morning on ABG patient exhibited hypoxemia and FiO2 was unchanged. [facility] later increased PEEP and decrease FiO2. Nephrology was consulted due to no recovery in renal function noted. Urine lites were ordered. Hyperkalemia treated medically. 05/27: Patient remains sedated on fentanyl and propofol, [facility] will taper Solu- Medrol and repeat ABG in 1899. Patient received 40 mg of Lasix x1. Slight improvement to renal function noted 05/28: [facility] has started revatio for pulmonary hypertension, we will repeat Lasix today as patient had improvement in renal function. No acute events reported overnight. 05/29: 1900 ABG with improved hypoxia, good UOP noted from lasix. Repeat labs for am. no acute events reported overnight 05/30: FWF decreased. Garcia catheter replaced due to sediment. Family updated today at bedside. 05/31: noted to have persistent tachycardia, given fent bolus without improvement. EKG showed ST, passive leg raise by RN showed decrease in tachycardia therefore given LR. Noted increase in Cr today. MIVF for 2 liters started by [facility]. 06/01/21- Remains intubated, sedation was increased this am due to agitation, Levo was initiated due to hypotension. Patient remains on IVF, D/C once current bag is completed. D/w CCM plan to gently wean vent setting for SPO2 goal above 92%. 06/02/21- Patient remains on the vent, on max support this am. Per RN patient desated this am after he was turned, SPO2 was sustaining in the low 80s. Patient is also spiking temp, TMAX 101 this am, WBC wnl. Orders placed for stat CXR, blood cultureX2, and procal. Will hold off on AbX for now. Will continue to trend CBC, am labs ordered 06/03/21- Patient remains on the vent and sedated. High triglyceride level this am, propofol stopped and seroquel added BID. No fever overnight, wbcs remains stable, pending B.cult result. Continue to trend CBC Assessment and Plan #Neuro: Acute metabolic encephalopathy -CT head and C-spine negative for acute process -TSH WNL -Elevated triglyceride 830, propofol D/C -Seroquel added BID -Patient remains on fentanyl -Goal RASS 0 to -1 -Avoid delirium -Reorientation as needed -Maintain sleep-wake cycle #CV:Hypotension #Possible CHF #h/o HTN -Cardiology consulted, appreciate recommendations -05/24 echocardiogram showed mild to moderate dilated right heart chambers, LVEF 55% -ProBNP 80023 -Diuretic on hold due to worsen kidney function -Cardiology recommends conservative cardiac management -Maintain adequate perfusion -Continue rehydration with cont. IVF -Off pressors -maintain MAP above 65 -Continue AC- Eliquis #Acute hypoxemic and hypercapnic respiratory failure/ARDS #H/o sleep apnea -Patient intubated on 05/23 -vent settings:PRVC- 90%,12,25,450 -AM ABG noted -CCM consulted, appreciate recommendations -Continue IV Steroids and Nebs per CCM -VAP bundle addressed -Aspiration precaution HOB above 30 -Daily SBT and SAT trials as tolerated -Daily ABG and CXR -Continue SPO2 monitoring for SPO2 goal above 92% #GI: Transaminitis- improved #morbid obesity -NTR consult for tube feedings -Continue enteral nutrition -Continue BR- senokot -Continue PPI- Pepcid -Trend LFTs #: Acute renal failure secondary to vasomotor nephropathy -[place] ProBNP [place] [address], was diuresed, now on hold -FENa 0.41% indicating prerenal -Nephrology consulted, appreciate recommendations -Garcia catheter for strict intake and output -Avoid nephrotoxic medications -Renally dose medications -Continue IVF for now -Continue to monitor renal function and electrolytes, replete as needed #Heme: Elevated D-dimer, h/o PE/DVT -VQ scan unable to be performed due to patient being intubated -CTA head unable to be performed due to renal function and size -restarted on home eliquis -SCDs to bilateral lower extremity while in bed -Echocardiogram shows no right heart strain -Trend CBC -Transfuse for hemoglobin less than 7 -Bilateral lower extremity Doppler ultrasound negative for DVT #ID: CAP #leukopenia- improved #coag negative Staphylococcus in blood culture 07/26 -CT showed right upper lobe pneumonia -05/23 UC, tracheal aspirate no growth to date -05/23 blood culture with coag negative staph in 1 of 2 bottles -WBcs 10.8, patient remains afebrile -Completed IV abx course- cefepime and azithromycin - Daily CBC monitor - Consider ID consult if febrile or/and if leukocytosis occur #Endo: Glycemic control -Accu-Cheks every 6 while on tube feedings -SSI if hyperglycemic -Avoid hypoglycemia -Target blood glucose while critically ill less than 180 The high probability of a clinically significant, sudden or life threatening deterioration of the [Neuro,CV,pulm] system(s) required my full and direct attention, intervention and personal management. The aggregate critical care time was [60] minutes. This time is in addition to time spent performing reported procedures but includes the following: [x] Data Review and interpretation [x] Patient assessment and monitoring of vital signs [x] Documentation [x] Medication orders and management Disposition Plan: ICU Total Time Spent with Patient (Minutes): 60 History Interval history: Patient seen and examined at the bedside. Remains on the vent and sedated on propofol and fentanyl. Afebrile overnight and off pressors. NILAY overnight Hospitalist Physical - Constitutional Vitals: Temp Pulse Resp BP Pulse Ox 99.1 F 124 H 25 H 110/47 97 06/03/21 12:00 06/03/21 12:15 06/03/21 12:15 06/03/21 12:15 06/03/21 12:15 General appearance: Present: no acute distress, obese, other (Intubated/Sedated) - EENT Eyes: Present: PERRL - Neck Neck: Present: normal ROM - Respiratory Respiratory effort: normal Respiratory: bilateral: diminished - Cardiovascular Rhythm: regular Heart Sounds: Present: S1 & S2 - Extremities Extremities: no ischemia, pulses intact, pulses symmetrical Extremity abnormal: edema - Peripheral Assessment Generalized Edema Type: Non-pitting Edema Degree: 1+ Capillary Refill: < 3 seconds Skin Temperature: Warm Peripheral Pulses: within normal limits - Abdominal General gastrointestinal: soft, non-tender, normal bowel sounds - Integumentary Integumentary: Present: clear, warm, dry - Psychiatric Psychiatric: other (Intubated/Sedated) - Neurologic Neurologic: other (Intubated/Sedated) - Allied Health Allied health notes reviewed: nursing HEART Score - HEART Score Troponin: Troponin T 0.038 ng/mL (0.00-0.029) H 05/23/21 15:09 Results - Labs CBC & Chem 7: 06/03/21 04:10 06/03/21 04:10 Labs: Laboratory Last Values WBC 8.1 K/mm3 (4.5-11.0) 06/03/21 04:10 RBC 3.25 M/mm3 (3.65-5.03) L 06/03/21 04:10 Hgb 9.9 gm/dl (11.8-15.2) L 06/03/21 04:10 Hct 31.8 % (35.5-45.6) L 06/03/21 04:10 MCV 98 fl (84-94) H 06/03/21 04:10 MCH 31 pg (28-32) 06/03/21 04:10 MCHC 31 % (32-34) L 06/03/21 04:10 RDW 19.9 % (13.2-15.2) H 06/03/21 04:10 Plt Count 147 K/mm3 (140-440) 06/03/21 04:10 Lymph % (Auto) 6.2 % (13.4-35.0) L 06/03/21 04:10 [place] % (Auto) 13.1 % (0.0-7.3) H 06/03/21 04:10 Eos % (Auto) 3.2 % (0.0-4.3) 06/03/21 04:10 Baso % (Auto) 0.4 % (0.0-1.8) 06/03/21 04:10 Lymph # (Auto) 0.5 K/mm3 (1.2-5.4) L 06/03/21 04:10 [place] # (Auto) 1.1 K/mm3 (0.0-0.8) H 06/03/21 04:10 Eos # (Auto) 0.3 K/mm3 (0.0-0.4) 06/03/21 04:10 Baso # (Auto) 0.0 K/mm3 (0.0-0.1) 06/03/21 04:10 Add Manual Diff Complete 05/24/21 04:55 Total Counted 100 05/24/21 04:55 Seg Neutrophils % Senior Court Office Assistant 06/03/21 04:10 Seg Neuts % (Manual) 97.0 % (40.0-70.0) H 05/24/21 04:55 Lymphocytes % (Manual) 3.0 % (13.4-35.0) L 05/24/21 04:55 Nucleated RBC % Not Reportable 05/24/21 04:55 Seg Neutrophils # 6.2 K/mm3 (1.8-7.7) 06/03/21 04:10 Seg Neutrophils # Man 8.4 K/mm3 (1.8-7.7) H 05/24/21 04:55 Band Neutrophils # 0.0 K/mm3 05/24/21 04:55 Lymphocytes # (Manual) 0.3 K/mm3 (1.2-5.4) L 05/24/21 04:55 Abs React Lymphs (Man) 0.0 K/mm3 05/24/21 04:55 Monocytes # (Manual) 0.0 K/mm3 (0.0-0.8) 05/24/21 04:55 Eosinophils # (Manual) 0.0 K/mm3 (0.0-0.4) 05/24/21 04:55 Basophils # (Manual) 0.0 K/mm3 (0.0-0.1) 05/24/21 04:55 Metamyelocytes # 0.0 K/mm3 05/24/21 04:55 Myelocytes # 0.0 K/mm3 05/24/21 04:55 Promyelocytes # 0.0 K/mm3 05/24/21 04:55 Blast Cells # 0.0 K/mm3 05/24/21 04:55 WBC Morphology Not Reportable 05/24/21 04:55 Hypersegmented Neuts Not Reportable 05/24/21 04:55 Hyposegmented Neuts Not Reportable 05/24/21 04:55 Hypogranular Neuts Not Reportable 05/24/21 04:55 Smudge Cells Not Reportable 05/24/21 04:55 Toxic Granulation Not Reportable 05/24/21 04:55 Toxic Vacuolation Not Reportable 05/24/21 04:55 Dohle Bodies Not Reportable 05/24/21 04:55 Pelger-Huet Anomaly Not Reportable 05/24/21 04:55 Cynthia Rods Not Reportable 05/24/21 04:55 Platelet Estimate Consistent w auto 05/24/21 04:55 Clumped Platelets Not Reportable 05/24/21 04:55 Plt Clumps, EDTA Not Reportable 05/24/21 04:55 Large Platelets Not Reportable 05/24/21 04:55 Giant Platelets Not Reportable 05/24/21 04:55 Platelet Satelliting Not Reportable 05/24/21 04:55 Plt Morphology Comment Not Reportable 05/24/21 04:55 RBC Morphology Not Reportable 05/24/21 04:55 Dimorphic RBCs Not Reportable 05/24/21 04:55 Polychromasia Not Reportable 05/24/21 04:55 Hypochromasia Not Reportable 05/24/21 04:55 Poikilocytosis Not Reportable 05/24/21 04:55 Anisocytosis 1+ 05/24/21 04:55 Microcytosis Not Reportable 05/24/21 04:55 Macrocytosis Not Reportable 05/24/21 04:55 Spherocytes Not Reportable 05/24/21 04:55 Pappenheimer Bodies Not Reportable 05/24/21 04:55 Sickle Cells Not Reportable 05/24/21 04:55 Target Cells Not Reportable 05/24/21 04:55 Tear Drop Cells Not Reportable 05/24/21 04:55 Ovalocytes Not Reportable 05/24/21 04:55 Helmet Cells Not Reportable 05/24/21 04:55 James-[place] Bodies Not Reportable 05/24/21 04:55 [place] Rings Not Reportable 05/24/21 04:55 [place] Cells Not Reportable 05/24/21 04:55 Bite Cells Not Reportable 05/24/21 04:55 Crenated Cell Not Reportable 05/24/21 04:55 Elliptocytes Not Reportable 05/24/21 04:55 Acanthocytes (Spur) Not Reportable 05/24/21 04:55 Rouleaux Not Reportable 05/24/21 04:55 Hemoglobin C Crystals Not Reportable 05/24/21 04:55 Schistocytes Not Reportable 05/24/21 04:55 Malaria parasites Not Reportable 05/24/21 04:55 Uli Bodies Not Reportable 05/24/21 04:55 Hem Pathologist Commnt No 05/24/21 04:55 PT 15.3 Sec. (12.2-14.9) H 05/29/21 13:40 INR 1.09 (0.87-1.13) 05/29/21 13:40 APTT 25.7 Sec. (24.2-36.6) 05/29/21 13:40 D-Dimer 4444.85 ng/mlDDU (0-234) H 05/23/21 15:09 ABG pH 7.315 (7.320-7.450) L 06/02/21 10:01 POC ABG pCO2 48.0 mmHg (32.0-48.0) 06/02/21 10:01 ABG pCO2 48.1 mm Hg 05/30/21 09:22 POC ABG pO2 62.1 mmHg (83-108) L 06/02/21 10:01 ABG pO2 107.0 mm Hg (80.0-90.0) H 05/30/21 09:22 POC ABG HCO3 8.9 06/02/21 10:01 ABG HCO3 24.4 mmol/L (20.0-26.0) 05/30/21 09: ABG O2 Saturation 91.0 (0-100) 06/02/21 10:01 ABG O2 Content 16.8 (0.0-44) 05/30/21 09:22 POC ABG Base Excess -2.4 06/02/21 10:01 ABG Base Excess -1.9 mmol/L (-2.0-3.0) 05/30/21 09:22 ABG Hemoglobin 10.8 (12.0-17.5) L 06/02/21 10:01 ABG Oxyhemoglobin 91.0 (94-98) L 06/02/21 10:01 ABG Carboxyhemoglobin 1.7 % (0.0-5.0) 05/30/21 09:22 ABG Methemoglobin 0.3 (0.0-1.5) 06/02/21 10:01 ABG Sodium 133.5 mmol/L (136.0-145.0) L 06/02/21 10:01 ABG Potassium 5.0 mmol/L (3.40-4.50) H 06/02/21 10:01 ABG Chloride 109.0 mmol/L (98-107) H 06/02/21 10:01 ABG Glucose 124 mg/dL (65-95) H 06/02/21 10:01 Oxyhemoglobin 95.5 % (95.0-99.0) 05/30/21 09:22 Carboxyhemoglobin 0.7 (0.5-1.5) 06/02/21 10:01 FiO2 65 % 05/30/21 09: FiO2 % 1.0 06/02/21 10:01 Sodium 136 mmol/L (137-145) L 06/03/21 04:10 Potassium 4.6 mmol/L (3.6-5.0) 06/03/21 04:10 Chloride 106.6 mmol/L (98-107) 06/03/21 04:10 Carbon Dioxide 20 mmol/L (22-30) L 06/03/21 04:10 Anion Gap 14 mmol/L 06/03/21 04:10 BUN 57 mg/dL (9-20) H 06/03/21 04:10 Creatinine 1.7 mg/dL (0.8-1.3) H 06/03/21 04:10 Estimated GFR 53 ml/min 06/03/21 04:10 BUN/Creatinine Ratio 34 % 06/03/21 04:10 Glucose 108 mg/dL (75-100) H 06/03/21 04:10 POC Glucose 114 mg/dL (70-105) H 06/03/21 05:36 Lactic Acid 1.50 mmol/L (0.7-2.0) 05/23/21 15:09 Calcium 8.2 mg/dL (8.4-10.2) L 06/03/21 04:10 Phosphorus 2.90 mg/dL (2.5-4.5) 05/28/21 05:30 Magnesium 2.40 mg/dL (1.7-2.3) H 05/28/21 05:30 Total Bilirubin 0.60 mg/dL (0.1-1.2) 05/26/21 Unknown AST 64 units/L (5-40) H 05/26/21 Unknown ALT 448 units/L (7-56) H 05/26/21 Unknown Alkaline Phosphatase 58 units/L (35-129) 05/26/21 Unknown Ammonia 30.0 umol/L (25-60) 05/24/21 04:55 Total Creatine Kinase 48 units/L (55-170) L 05/23/21 15:09 Troponin T 0.038 ng/mL (0.00-0.029) H 05/23/21 15:09 C-Reactive Protein 10.00 mg/dL (0.00-1.30) H 05/23/21 19:10 NT-Pro-B Natriuret Pep 65057 pg/mL (0-450) H 05/23/21 15:09 Total Protein 7.0 g/dL (6.3-8.2) 05/26/21 Unknown Albumin 3.4 g/dL (3.9-5) L 05/26/21 Unknown Albumin/Globulin Ratio 0.9 % 05/26/21 Unknown Triglycerides 830 mg/dL (2-149) H 06/03/21 04:10 Cholesterol 106 mg/dL (50-199) 05/23/21 15:09 LDL Cholesterol Direct 58 mg/dL (50-130) 05/23/21 15:09 HDL Cholesterol 29 mg/dL (40-59) L 05/23/21 15:09 Cholesterol/HDL Ratio 3.65 % 05/23/21 15:09 Procalcitonin 0.82 ng/mL (<0.15) 06/02/21 13:53 TSH 2.380 mlU/mL (0.270-4.200) 05/23/21 15:09 Arterial Blood Glucose 124 mg/dL (65-95) H 06/02/21 10:01 Arterial Blood Ionized Calcium 4.9 mg/dL (4.6-5.3) 06/02/21 10:01 Urine Color [place] (Yellow) 05/23/21 Unknown Urine Turbidity Slightly-cloudy (Clear) 05/23/21 Unknown Urine pH 5.0 (5.0-7.0) 05/23/21 Unknown Ur Specific [place] 1.014 (1.003-1.030) 05/23/21 Unknown Urine Protein 30 mg/dl mg/dL (Negative) 05/23/21 Unknown Urine Glucose (UA) Neg mg/dL (Negative) 05/23/21 Unknown Urine Ketones Neg mg/dL (Negative) 05/23/21 Unknown Urine Blood Mod (Negative) 05/23/21 Unknown Urine Nitrite Neg (Negative) 05/23/21 Unknown Urine Bilirubin Neg (Negative) 05/23/21 Unknown Urine Urobilinogen 4.0 mg/dL (<2.0) 05/23/21 Unknown Ur Leukocyte Esterase Tr (Negative) 05/23/21 Unknown Urine WBC (Auto) 34.0 /HPF (0.0-6.0) H 05/23/21 Unknown Urine RBC (Auto) 20.0 /HPF (0.0-6.0) 05/23/21 Unknown U Epithel Cells (Auto) 2.0 /HPF (0-13.0) 05/23/21 Unknown Urine Bacteria (Auto) 1+ /HPF (Negative) 05/23/21 Unknown Urine Mucus Few /HPF 05/23/21 Unknown Urine Osmolality 612 Mosm/kg 05/26/21 Unknown Urine Creatinine 128.6 mg/dL (0.1-20.0) H 05/26/21 Unknown Urine Sodium 37 mmol/L 05/26/21 Unknown Urine Potassium 45.15 mmol/L 05/26/21 Unknown Urine Urea Nitrogen 989 05/26/21 Unknown Nasal Screen MRSA (PCR) Positive (Negative) 05/30/21 12:00 Salicylates < 0.3 mg/dL (2.8-20.0) L 05/23/21 15:09 Urine Opiates Screen Negative 05/23/21 Unknown Urine Methadone Screen Negative 05/23/21 Unknown Acetaminophen 5.0 ug/mL (10.0-30.0) L 05/23/21 15:09 Ur Barbiturates Screen Negative 05/23/21 Unknown Ur Phencyclidine Scrn Negative 05/23/21 Unknown Ur Amphetamines Screen Negative 05/23/21 Unknown U Benzodiazepines Scrn Negative 05/23/21 Unknown Urine Cocaine Screen Negative 05/23/21 Unknown U Marijuana (THC) Screen Negative 05/23/21 Unknown Drugs of Abuse Note Disclamer 05/23/21 Unknown Plasma/Serum Alcohol < 0.01 % (0-0.07) 05/23/21 15:09 Coronavirus (PCR) Negative (Negative) 05/23/21 Unknown Blood Type O POSITIVE 05/23/21 15:01 Antibody Screen Negative 05/23/21 15:01 Microbiology: Microbiology 06/02/21 13:53 Peripheral/Venous Blood Culture - Preliminary Culture in Progress 06/02/21 13:54 Peripheral/Venous Blood Culture - Preliminary Culture in Progress Garcia/IV: Voiding Method Indwelling Catheter Active Medications - Current Medications Current Medications: Generic Name Dose Route Start Last Admin Trade Name Freq PRN Reason Stop Dose Admin Acetaminophen 650 mg 05/23/21 20:42 06/02/21 09:14 Acetaminophen 325 Mg Tab PO 650 mg Q4H PRN Administration Pain MILD(1-3)/Fever >100.5/CASTORENA Albuterol 2.5 mg 05/23/21 21:11 Albuterol 2.5 Mg/3 Ml Nebu IH Q4HRT PRN Shortness Of Breath Albuterol/Ipratropium 1 ampul 05/29/21 08:00 06/03/21 07:59 Ipratropium/Albuterol Sulfate 3 Ml Ampul.Neb IH 1 ampul TIDRT ROSEMARIE Administration Lipase/Protease/Amylase 1 each 05/24/21 10:14 Lipase 10,500/Protease 25,000/Amylase 43,750 (Units) Dr Cap FEEDTUBE PRN PRN For Clogged Feeding Tube Apixaban 2.5 mg 05/29/21 13:00 06/03/21 09:20 Apixaban 2.5 Mg Tab PO 2.5 mg Q12HR ROSEMARIE Administration Protocol Famotidine 20 mg 05/27/21 10:00 06/03/21 09:19 Famotidine 20 Mg Tab FEEDTUBE 20 mg BID ROSEMARIE Administration Fentanyl 50 mcg 05/23/21 12:34 05/31/21 10:20 Fentanyl 100 Mcg/2 Ml Inj IV 50 mcg Q10MIN PRN Administration ANALGESIA Hydrophilic Ointment 1 applic 05/23/21 12:34 Lip Therapy Vaseline TP Q2HR PRN Dry Lips Fentanyl Citrate 2,000 mcg in 100 mls @ 8.528 mls/hr 05/23/21 13:00 06/03/21 11:30 Fentanyl Drip Premix IV 4 mcg/kg/hr TITR ROSEMARIE 34.11 mls/hr Titration Protocol 1 MCG/KG/HR NORepinephrine/NS 8 MG-250 ML 8 mg in 250 mls @ 3.75 mls/hr 05/24/21 20:00 06/02/21 20:45 Norepinephrine/Ns 8 Mg-250 Ml (Double Conc) IV 0 mcg/min TITRATE ROSEMARIE 0 mls/hr Titration Protocol 2 MCG/MIN Multi-Ingred Cream/Lotion/Oil/Oint 1 applic 05/23/21 12:34 05/30/21 22:14 Mineral Oil/Petrolatum, White Ophth Oint 3.5 Gm OU 1 applic Q4HR PRN Administration Dry Eye(s) Ondansetron HCl 4 mg 05/23/21 20:42 Ondansetron 4 Mg/2 Ml Inj IV Q8H PRN Nausea And Vomiting Senna/Docusate Sodium 1 tab 05/23/21 22:00 06/03/21 09:19 Sennosides/Docusate Sodium 8.6/50 Mg Tab FEEDTUBE 1 tab BID ROSEMARIE Administration Simple Syrup 15 ml 05/24/21 10:14 Simple Syrup 15 Ml FEEDTUBE PRN PRN Hypoglycemia Simple Syrup 30 ml 05/24/21 10:14 Simple Syrup 15 Ml FEEDTUBE PRN PRN Hypoglycemia Sodium Bicarbonate 325 mg 05/24/21 10:14 Sodium Bicarbonate 325 Mg Tab FEEDTUBE PRN PRN For Clogged Feeding Tube Sodium Chloride 10 ml 05/23/21 22:00 06/03/21 09:20 Sodium Chloride 0.9% 10 Ml Flush Syringe IV 10 ml BID ROSEMARIE Administration Sodium Chloride 10 ml 05/23/21 20:42 Sodium Chloride 0.9% 10 Ml Flush Syringe IV PRN PRN LINE FLUSH Nutrition/Malnutrition Assess - Dietary Evaluation Nutrition/Malnutrition Findings: Nutrition Notes Start: 05/24/21 09:53 Freq: Status: Active Protocol: Document 06/02/21 16:14 GB (Rec: 06/02/21 16:23 GB [email or web address]) Nutrition Notes Initial or Follow up Reassessment Current Diagnosis Acute Kidney Injury, Hypertension,Respiratory Failure Other Pertinent Diagnosis SIRS, encephalopathy, pneu, transaminitis Current Diet NPO, Tube Feeding Nepro @ 45m/ hr Labs/Tests 06/02: BUN 61, Creatinine 1.7, glucose 119 Pertinent Medications Fentanyl Citrate, Norepenephrin/NS 8 Mg 250, Propofol 20.466 ml/hr (540kcal ) Height 5 ft 8 in Weight 100.6 kg [place] Body Weight (kg) 70.00 BMI 33.7 Weight change and time frame Weights recorded to nursing flow sheet - that does not tie to I/O weight results documentation. Weight taken on bed 06/02 100. 6kg, bed changed out on 05/29 r /t not working. Unsure if current weight or pervious weight is accurate. Weight Status Obese Subjective/Other Information MD notes 06/02: Continue TF@ goal as tolerated, persistent lower lobe predominant airspace disease, slightly improved. Per discussion with RN: Bed was changed out on 05/29 due to not working. Weight taken on current bed 100.6kg 06/02. Unsure if bed was zero'd or if weight from previous bed was accurate. Recommend reweigh for weight confirmation. Pt does not appear to have lost significant weight. Also discussed goal rate of TF. Goal is 45m/hr and rate was recorded at 55ml/hr. TF rate now at 45ml/hr. Intubation/Sedation: continues Last BM: 05/30 Percent of energy/protein needs met: TF at goal meets 75% or greater of minimal estimated energy needs Burn Absent Trauma Absent GI Symptoms Other Difficulty In Swallowing Food Allergy No Current % PO Other Minimum of two criteria No #1 Nutrition Diagnosis Swallowing difficulty Comments: 05/25: intubation/sedation continues. TF started 05/28: intubation/sedation continues. TF Nepro @ goal 45ml/hr 06/02: intubation/sedation continues. TF Nepro @ 45m/hr Etiology ARF As Evidenced by Signs and Symptoms Intubated/sedated Diagnosis Progress(for reassessment Continues documentation) Is patient on ventilator? Yes Is Patient Ambulatory and/or Out of Bed No REE-([facility]-confined to bed) 2253.516 Kcal/Kg value to use for calculation 20 Approximate Energy Requirements Using 2012 kcal/Kg Calculation Used for Recommendations Kcal/kg Additional Notes Protein: 1-1.2 g/kg @ 100k-120g Fluid: 1 ml/kcal or per Nutrition Intervention Change Diet Order: Continue NPO, Tube feeding Nutrition Support: Nepro 1.8 at 45 ml/hr Flush 175 ml q4h or per MD Total free water: TF@goal + flush = 1835ml Kcal 1,950 Protein (gm) 88 Carbohydrates (gm) 174 Fat (gm) 104 Fluid (mL) 788 Fiber (gm) 14 % RDI: 98%kcal / 88%pro Add Supplement/Snack (indicate name/kcal n/a /protein ) Goal #1 Meet at least 75% or greater of EEN via TF 05/25: met, continues 05/28: met, continues 06/02: met, continues Goal #2 TF (Nepro) at goal rate (45ml/ hr) by f/u 05/25: TF started 05/28: TF at goal. met, continues 06/02: met, continues Anticipated Discharge Needs: Unable to determine at this time Follow-Up By: 06/09/21 Additional Comments f/u: TF tolerance, weight, vent status
--- NOTE | 2021-06-03 12:54 | Progress Note ---
Assessment and Plan Assessment: Acute Renal Failure likely on CKD Hypertension Acute Respiratory Failure Pneumonia, community-acquired Morbid obesity Obstructive sleep apnea Edema Plan: Renal labs reviewed. 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 Santos Subjective Date of service: 06/03/21 Principal diagnosis: Acute hypoxemic and hypercapnic resp failure; PUI COVID-19; Pneumonia; FERMIN Interval history: Patient seen lying in bed, he remains intubated and sedated. Does move eye lids. Objective - Vital Signs Vital signs: Vital Signs - 12hr 06/03/21 06/03/21 06/03/21 01:00 01:15 01:30 Temperature Pulse Rate 104 H 105 H 108 H Pulse Rate [ Anterior Bilateral Throughout] Respiratory 25 H 25 H 25 H Rate Respiratory Rate [Anterior Bilateral Throughout] Blood Pressure 104/50 112/64 110/61 O2 Sat by Pulse 94 95 95 Oximetry 06/03/21 06/03/21 06/03/21 01:45 02:00 02:15 Temperature Pulse Rate 105 H 107 H 114 H Pulse Rate [ Anterior Bilateral Throughout] Respiratory 25 H 25 H 25 H Rate Respiratory Rate [Anterior Bilateral Throughout] Blood Pressure 100/53 104/52 105/58 O2 Sat by Pulse 95 93 91 Oximetry 06/03/21 06/03/21 06/03/21 02:30 02:45 03:00 Temperature Pulse Rate 113 H 112 H 122 H Pulse Rate [ Anterior Bilateral Throughout] Respiratory 25 H 25 H 25 H Rate Respiratory Rate [Anterior Bilateral Throughout] Blood Pressure 103/56 111/61 146/90 O2 Sat by Pulse 91 91 91 Oximetry 06/03/21 06/03/21 06/03/21 03:15 03:30 03:40 Temperature Pulse Rate 114 H 110 H Pulse Rate [ Anterior Bilateral Throughout] Respiratory 25 H 25 H Rate Respiratory Rate [Anterior Bilateral Throughout] Blood Pressure 122/69 114/54 114/54 O2 Sat by Pulse 94 91 92 Oximetry 06/03/21 06/03/21 06/03/21 03:45 04:00 04:15 Temperature 98.8 F Pulse Rate 111 H 109 H 113 H Pulse Rate [ Anterior Bilateral Throughout] Respiratory 25 H 25 H 25 H Rate Respiratory Rate [Anterior Bilateral Throughout] Blood Pressure 115/57 115/57 114/58 O2 Sat by Pulse 92 92 91 Oximetry 06/03/21 06/03/21 06/03/21 04:30 04:45 05:00 Temperature Pulse Rate 112 H 119 H 123 H Pulse Rate [ Anterior Bilateral Throughout] Respiratory 25 H 28 H 27 H Rate Respiratory Rate [Anterior Bilateral Throughout] Blood Pressure 120/67 133/79 115/63 O2 Sat by Pulse 93 93 99 Oximetry 06/03/21 06/03/21 06/03/21 05:15 05:30 05:45 Temperature Pulse Rate 108 H 109 H 115 H Pulse Rate [ Anterior Bilateral Throughout] Respiratory 22 25 H 25 H Rate Respiratory Rate [Anterior Bilateral Throughout] Blood Pressure 99/47 94/41 117/61 O2 Sat by Pulse 99 98 99 Oximetry 06/03/21 06/03/21 06/03/21 06:00 06:15 06:30 Temperature Pulse Rate 112 H 113 H 114 H Pulse Rate [ Anterior Bilateral Throughout] Respiratory 25 H 25 H 25 H Rate Respiratory Rate [Anterior Bilateral Throughout] Blood Pressure 106/48 127/70 123/66 O2 Sat by Pulse 96 97 97 Oximetry 06/03/21 06/03/21 06/03/21 06:45 07:00 07:15 Temperature Pulse Rate 111 H 115 H 111 H Pulse Rate [ Anterior Bilateral Throughout] Respiratory 25 H 25 H 25 H Rate Respiratory Rate [Anterior Bilateral Throughout] Blood Pressure 115/60 125/63 116/57 O2 Sat by Pulse 97 97 97 Oximetry 06/03/21 06/03/21 06/03/21 07:30 07:45 07:57 Temperature Pulse Rate 110 H 106 H 104 H Pulse Rate [ Anterior Bilateral Throughout] Respiratory 26 H 25 H Rate Respiratory Rate [Anterior Bilateral Throughout] Blood Pressure 118/59 104/45 104/45 O2 Sat by Pulse 98 98 97 Oximetry 06/03/21 06/03/21 06/03/21 07:59 08:00 08:15 Temperature 98.6 F Pulse Rate 106 H 111 H Pulse Rate [ 106 H Anterior Bilateral Throughout] Respiratory 26 H 25 H Rate Respiratory 25 H Rate [Anterior Bilateral Throughout] Blood Pressure 110/54 103/49 O2 Sat by Pulse 97 95 Oximetry 06/03/21 06/03/21 06/03/21 08:30 08:45 09:00 Temperature Pulse Rate 106 H 108 H 106 H Pulse Rate [ Anterior Bilateral Throughout] Respiratory 25 H 25 H 25 H Rate Respiratory Rate [Anterior Bilateral Throughout] Blood Pressure 103/47 101/47 104/49 O2 Sat by Pulse 98 97 97 Oximetry 06/03/21 06/03/21 06/03/21 09:15 09:30 09:45 Temperature Pulse Rate 105 H 114 H 116 H Pulse Rate [ Anterior Bilateral Throughout] Respiratory 26 H 13 24 Rate Respiratory Rate [Anterior Bilateral Throughout] Blood Pressure 101/50 108/61 119/60 O2 Sat by Pulse 98 97 96 Oximetry 06/03/21 06/03/21 06/03/21 10:00 10:15 10:30 Temperature Pulse Rate 114 H 121 H 148 H Pulse Rate [ Anterior Bilateral Throughout] Respiratory 25 H 26 H 15 Rate Respiratory Rate [Anterior Bilateral Throughout] Blood Pressure 101/52 124/64 124/64 O2 Sat by Pulse 97 96 92 Oximetry 06/03/21 06/03/21 06/03/21 10:45 11:00 11:15 Temperature Pulse Rate 137 H 139 H 138 H Pulse Rate [ Anterior Bilateral Throughout] Respiratory 17 25 H 25 H Rate Respiratory Rate [Anterior Bilateral Throughout] Blood Pressure 114/56 121/69 124/60 O2 Sat by Pulse 96 95 96 Oximetry 06/03/21 06/03/21 06/03/21 11:30 11:45 12:00 Temperature 99.1 F Pulse Rate 137 H 134 H 137 H Pulse Rate [ Anterior Bilateral Throughout] Respiratory 25 H 25 H 25 H Rate Respiratory Rate [Anterior Bilateral Throughout] Blood Pressure 113/56 120/55 114/55 O2 Sat by Pulse 95 95 96 Oximetry 06/03/21 12:15 Temperature Pulse Rate 124 H Pulse Rate [ Anterior Bilateral Throughout] Respiratory 25 H Rate Respiratory Rate [Anterior Bilateral Throughout] Blood Pressure 110/47 O2 Sat by Pulse 97 Oximetry - General Appearance General appearance: obese, sedated on ventilator, intubated, other EENT: ATNC Neck: no JVD Respiratory: Present: Decreased Breath Sounds, Other (intubated) Cardiology: S1S2 Gastrointestinal: normoactive bowel sounds Integumentary: warm and dry Neurologic: other (sedated) - Lab 06/03/21 04:10 06/03/21 04:10 Most recent lab results ABG pH 7.315 (7.320-7.450) L 06/02/21 10:01 ABG pCO2 48.1 mm Hg 05/30/21 09:22 ABG pO2 107.0 mm Hg (80.0-90.0) H 05/30/21 09:22 ABG HCO3 24.4 mmol/L (20.0-26.0) 05/30/21 09:22 ABG O2 Saturation 91.0 (0-100) 06/02/21 10:01 Calcium 8.2 mg/dL (8.4-10.2) L 06/03/21 04:10 Phosphorus 2.90 mg/dL (2.5-4.5) 05/28/21 05:30 Magnesium 2.40 mg/dL (1.7-2.3) H 05/28/21 05:30 Urine Creatinine 128.6 mg/dL (0.1-20.0) H 05/26/21 Unknown Urine Sodium 37 mmol/L 05/26/21 Unknown Medications & Allergies - Medications Allergies/Adverse Reactions: Allergies No Known Allergies Allergy (Unverified 05/25/21 12:48) Home Medications: Home Medications Medication Instructions Recorded Confirmed Last Taken Type Amoxicillin [Amoxicillin TAB] 875 mg PO BID #20 tablet 11/12/14 05/29/21 Unknown Rx Apixaban 2.5 mg PO BID 05/29/21 05/29/21 Unknown History Cholecalciferol (Vitamin D3) 3 mg PO 1XW 05/29/21 05/29/21 Unknown History Metoprolol 150 mg PO BID 05/29/21 05/29/21 Unknown History Torsemide 80 mg PO DAILY 05/29/21 05/29/21 Unknown History Active Medications: Generic Name Dose Route Start Last Admin Trade Name Freq PRN Reason Stop Dose Admin Acetaminophen 650 mg 05/23/21 20:42 06/02/21 09:14 Acetaminophen 325 Mg Tab PO 650 mg Q4H PRN Administration Pain MILD(1-3)/Fever >100.5/CASTORENA Albuterol 2.5 mg 05/23/21 21:11 Albuterol 2.5 Mg/3 Ml Nebu IH Q4HRT PRN Shortness Of Breath Albuterol/Ipratropium 1 ampul 05/29/21 08:00 06/03/21 07:59 Ipratropium/Albuterol Sulfate 3 Ml Ampul.Neb IH 1 ampul TIDRT ROSEMARIE Administration Lipase/Protease/Amylase 1 each 05/24/21 10:14 Lipase 10,500/Protease 25,000/Amylase 43,750 (Units) Dr Cap FEEDTUBE PRN PRN For Clogged Feeding Tube Apixaban 2.5 mg 05/29/21 13:00 06/03/21 09:20 Apixaban 2.5 Mg Tab PO 2.5 mg Q12HR ROSEMARIE Administration Protocol Famotidine 20 mg 05/27/21 10:00 06/03/21 09:19 Famotidine 20 Mg Tab FEEDTUBE 20 mg BID ROSEMARIE Administration Fentanyl 50 mcg 05/23/21 12:34 05/31/21 10:20 Fentanyl 100 Mcg/2 Ml Inj IV 50 mcg Q10MIN PRN Administration ANALGESIA Hydrophilic Ointment 1 applic 05/23/21 12:34 Lip Therapy Vaseline TP Q2HR PRN Dry Lips Fentanyl Citrate 2,000 mcg in 100 mls @ 8.528 mls/hr 05/23/21 13:00 06/03/21 11:30 Fentanyl Drip Premix IV 4 mcg/kg/hr TITR ROSEMARIE 34.11 mls/hr Titration Protocol 1 MCG/KG/HR NORepinephrine/NS 8 MG-250 ML 8 mg in 250 mls @ 3.75 mls/hr 05/24/21 20:00 06/02/21 20:45 Norepinephrine/Ns 8 Mg-250 Ml (Double Conc) IV 0 mcg/min TITRATE ROSEMARIE 0 mls/hr Titration Protocol 2 MCG/MIN Multi-Ingred Cream/Lotion/Oil/Oint 1 applic 05/23/21 12:34 05/30/21 22:14 Mineral Oil/Petrolatum, White Ophth Oint 3.5 Gm OU 1 applic Q4HR PRN Administration Dry Eye(s) Ondansetron HCl 4 mg 05/23/21 20:42 Ondansetron 4 Mg/2 Ml Inj IV Q8H PRN Nausea And Vomiting Quetiapine Fumarate 100 mg 06/03/21 22:00 Quetiapine 100 Mg Tab PO BID ROSEMARIE Senna/Docusate Sodium 1 tab 05/23/21 22:00 06/03/21 09:19 Sennosides/Docusate Sodium 8.6/50 Mg Tab FEEDTUBE 1 tab BID ROSEMARIE Administration Simple Syrup 15 ml 10/31/21 10:14 Simple Syrup 15 Ml FEEDTUBE PRN PRN Hypoglycemia Simple Syrup 30 ml 05/24/21 10:14 Simple Syrup 15 Ml FEEDTUBE PRN PRN Hypoglycemia Sodium Bicarbonate 325 mg 05/24/21 10:14 Sodium Bicarbonate 325 Mg Tab FEEDTUBE PRN PRN For Clogged Feeding Tube Sodium Chloride 10 ml 05/23/21 22:00 06/03/21 09:20 Sodium Chloride 0.9% 10 Ml Flush Syringe IV 10 ml BID ROSEMARIE Administration Sodium Chloride 10 ml 05/23/21 20:42 Sodium Chloride 0.9% 10 Ml Flush Syringe IV PRN PRN LINE FLUSH
--- NOTE | 2021-06-03 14:44 | Progress Note ---
Assessment and Plan - Patient Problems (1) Acute respiratory failure Current Visit: Yes Status: Acute Plan to address problem: 41-year-old man who is morbidly obese, weighing over 375 pounds, admitted with acute respiratory failure. Cardiology consultation was requested for assessment of heart failure. Chest x-ray showed a normal-sized cardiac silhouette and clear lungs. EKG was sinus with an incomplete right bundle branch block. There are no clinical signs or echocardiographic findings of left-sided heart failure. Left ventricular ejection fraction was 55%. Conversely there was dilatation of the right heart chambers, moderate tricuspid regurgitation and at least moderate pulmonary hypertension with a pulmonary artery systolic pressure of 53. Findings suggest the presence of chronic cor pulmonale, likely associated with COPD and possible sleep apnea. We will continue conservative cardiac management as previously outlined. Subjective Date of service: 06/03/21 Principal diagnosis: Acute hypoxemic and hypercapnic resp failure; PUI COVID-19; Pneumonia; FERMIN Interval history: No new cardiac complaints, patient remains in ICU on supportive management. Objective Vital Signs Temp Pulse Pulse Resp Resp BP Pulse Ox 06/03/21 12:15 124 H 25 H 110/47 97 06/03/21 12:00 99.1 F 136 H 25 H 114/55 96 06/03/21 11:45 134 H 25 H 120/55 95 06/03/21 11:30 137 H 25 H 113/56 95 06/03/21 11:15 138 H 25 H 124/60 96 06/03/21 11:00 139 H 25 H 121/69 95 06/03/21 10:45 137 H 17 114/56 96 06/03/21 10:30 148 H 15 124/64 92 06/03/21 10:15 121 H 26 H 124/64 96 06/03/21 10:00 114 H 25 H 101/52 97 06/03/21 09:45 116 H 24 119/60 96 06/03/21 09:30 114 H 13 108/61 97 06/03/21 09:15 105 H 26 H 101/50 98 06/03/21 09:00 106 H 25 H 104/49 97 06/03/21 08:45 108 H 25 H 101/47 97 06/03/21 08:30 106 H 25 H 103/47 98 06/03/21 08:15 111 H 25 H 103/49 95 06/03/21 08:00 98.6 F 106 H 26 H 110/54 97 06/03/21 07:59 106 H 25 H 06/03/21 07:57 104 H 104/45 97 06/03/21 07:45 106 H 25 H 104/45 98 06/03/21 07:30 110 H 26 H 118/59 98 06/03/21 07:15 111 H 25 H 116/57 97 06/03/21 07:00 115 H 25 H 125/63 97 06/03/21 06:45 111 H 25 H 115/60 97 06/03/21 06:30 114 H 25 H 123/66 97 06/03/21 06:15 113 H 25 H 127/70 97 06/03/21 06:00 112 H 25 H 106/48 96 06/03/21 05:45 115 H 25 H 117/61 99 06/03/21 05:30 109 H 25 H 94/41 98 06/03/21 05:15 108 H 22 99/47 99 06/03/21 05:00 123 H 27 H 115/63 99 06/03/21 04:45 119 H 28 H 133/79 93 06/03/21 04:30 112 H 25 H 120/67 93 06/03/21 04:15 113 H 25 H 114/58 91 06/03/21 04:00 98.8 F 109 H 25 H 115/57 92 06/03/21 03:45 111 H 25 H 115/57 92 06/03/21 03:40 114/54 92 06/03/21 03:30 110 H 25 H 114/54 91 06/03/21 03:15 114 H 25 H 122/69 94 06/03/21 03:00 122 H 25 H 146/90 91 06/03/21 02:45 112 H 25 H 111/61 91 06/03/21 02:30 113 H 25 H 103/56 91 06/03/21 02:15 114 H 25 H 105/58 91 06/03/21 02:00 107 H 25 H 104/52 93 06/03/21 01:45 105 H 25 H 100/53 95 06/03/21 01:30 108 H 25 H 110/61 95 06/03/21 01:15 105 H 25 H 112/64 95 06/03/21 01:00 104 H 25 H 104/50 94 06/03/21 00:45 106 H 25 H 102/48 94 06/03/21 00:30 106 H 25 H 104/48 93 06/03/21 00:15 111 H 25 H 115/59 93 06/03/21 00:00 99.0 F 119 H 25 H 117/59 93 06/02/21 23:45 121 H 25 H 120/71 92 06/02/21 23:38 88 110/60 94 06/02/21 23:30 111 H 25 H 111/57 93 06/02/21 23:15 116 H 25 H 118/62 94 06/02/21 23:10 109 H 25 H 134/78 93 06/02/21 23:00 117 H 25 H 134/78 93 06/02/21 22:45 109 H 25 H 125/69 94 06/02/21 22:30 117 H 25 H 122/77 92 06/02/21 22:15 97 H 25 H 108/57 95 06/02/21 22:00 98 H 25 H 99/46 94 06/02/21 21:45 101 H 25 H 105/50 94 06/02/21 21:30 104 H 25 H 108/50 93 06/02/21 21:15 113 H 25 H 120/67 95 06/02/21 21:00 104 H 25 H 117/61 94 06/02/21 20:45 109 H 25 H 141/80 91 06/02/21 20:30 107 H 25 H 136/82 93 06/02/21 20:15 94 H 25 H 115/59 96 06/02/21 20:00 99 F 96 H 95 H 21 25 H 119/65 95 06/02/21 19:45 97 H 26 H 115/63 95 06/02/21 19:30 97 H 25 H 116/60 95 06/02/21 19:15 105 H 25 H 129/80 94 06/02/21 19:00 96 H 25 H 116/61 95 06/02/21 18:45 101 H 25 H 116/64 95 06/02/21 18:30 97 H 25 H 117/64 96 06/02/21 18:15 96 H 25 H 119/64 96 06/02/21 18:00 95 H 25 H 120/65 96 06/02/21 17:45 93 H 25 H 117/63 97 06/02/21 17:30 85 25 H 110/55 97 06/02/21 17:15 83 25 H 113/56 97 06/02/21 17:00 84 25 H 112/56 97 06/02/21 16:51 85 109/52 97 06/02/21 16:45 82 25 H 109/52 97 06/02/21 16:30 84 25 H 110/54 97 06/02/21 16:15 88 25 H 107/52 96 06/02/21 16:00 99.1 F 91 H 25 H 110/51 93 06/02/21 15:45 84 85 25 H 25 H 107/50 96 06/02/21 15:30 84 25 H 100/48 95 06/02/21 15:15 86 21 106/50 95 06/02/21 15:00 83 31 H 104/48 95 06/02/21 14:45 83 25 H 102/49 95 - Physical Examination General: Other (Sedated on mechanical ventilator) HEENT: Positive: Normocephaly Neck: Positive: neck supple. Negative: JVD/HJR Neuro: Positive: Other (Unresponsive, on the vent) Abdomen: Positive: Soft Skin: Positive: Clear Extremities: Present: +1 Edema - Labs and Meds Lipids 06/03/21 Range/Units 04:10 Triglycerides 830 H (2-149) mg/dL CBC 06/03/21 Range/Units 04:10 WBC 8.1 (4.5-11.0) K/mm3 RBC 3.25 L (3.65-5.03) M/mm3 Hgb 9.9 L (11.8-15.2) gm/dl Hct 31.8 L (35.5-45.6) % Plt Count 147 (140-440) K/mm3 Lymph # (Auto) 0.5 L (1.2-5.4) K/mm3 [place] # (Auto) 1.1 H (0.0-0.8) K/mm3 Eos # (Auto) 0.3 (0.0-0.4) K/mm3 Baso # (Auto) 0.0 (0.0-0.1) K/mm3 Comprehensive Metabolic Panel 06/03/21 Range/Units 04:10 Sodium 136 L (137-145) mmol/L Potassium 4.6 (3.6-5.0) mmol/L Chloride 106.6 (98-107) mmol/L Carbon Dioxide 20 L (22-30) mmol/L BUN 57 H (9-20) mg/dL Creatinine 1.7 H (0.8-1.3) mg/dL Glucose 108 H (75-100) mg/dL Calcium 8.2 L (8.4-10.2) mg/dL - Imaging and Cardiology EKG: report reviewed (Sinus tachycardia no acute ST-T wave changes) - Allied health notes Allied health notes reviewed: nursing
[2021-06-03] MEDS: QUEtiapine 100 MG TAB PO SCH (21:29)
[2021-06-03] MEDS: ACETAMINOPHEN 325 MG TAB PO PRN (22:01)
[2021-06-04] MEDS: ACETAMINOPHEN 325 MG TAB PO PRN ×3 (03:28→21:25)
[2021-06-04] MEDS: fentaNYL DRIP Premix 2,000 MCG/100 ML BAG IV SCH ×2 (05:27→17:27)
[2021-06-04 05:46] LABS: ABG HCO3 22.4 mmol/L (20.0-26.0); ABG Methemoglobin 0.5 % (0.0-1.5); ABG Oxygen Saturation 92.3 % (95.0-99.0); ABG PCO2 47.3 mm Hg; ABG PH 7.293 pH Units (7.350-7.450); ABG PO2 69.1 mm Hg (80.0-90.0)
[2021-06-04 06:04] LABS: Hematocrit 31.6 % (35.5-45.6); Hemoglobin 9.7 gm/dl (11.8-15.2); Mean Corpuscular HGB Conc 31 % (32-34); Mean Corpuscular Volume 97 fl (84-94); Platelet Count 176 K/mm3 (140-440); Red Blood Count 3.27 M/mm3 (3.65-5.03); Red Cell Distribution Width 19.3 % (13.2-15.2)
[2021-06-04 06:18] LABS: Albumin 2.7 g/dL (3.9-5); Calcium 8.9 mg/dL (8.4-10.2)
[2021-06-04] MEDS: IPRATROPIUM/ALBUTEROL SULFATE 3 ML AMPUL.NEB IH SCH ×3 (08:39→20:53)
--- NOTE | 2021-06-04 09:58 | Electrocardiograph Report ---
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 Electronically Signed On 06-04-2021 9:58:10 EST by Prakash Johnson
[2021-06-04] MEDS: FAMOTIDINE 20 MG TAB FEEDTUBE SCH ×2 (10:10→21:16)
[2021-06-04] MEDS: QUEtiapine 100 MG TAB PO SCH ×2 (10:10→21:17)
[2021-06-04] MEDS: APIXABAN 2.5 MG TAB PO SCH ×2 (10:10→21:16)
[2021-06-04] MEDS: SENNOSIDES/DOCUSATE SODIUM 8.6/50 MG TAB FEEDTUBE SCH ×2 (10:10→21:16)
--- NOTE | 2021-06-04 10:20 | Progress Note ---
Assessment and Plan Acute Renal Failure likely on CKD Hypertension Acute Respiratory Failure Pneumonia, community-acquired Morbid obesity Obstructive sleep apnea Edema Plan: cont to maintain stable kidney function and good UOP May have unerlying CKD given history of Obesity and Hypertension. His serum creatinine was 0.8 in 2018 but current baseline is to be determined Renally dose medications Obtain daily weights Monitor I/O's daily Avoid nephrotoxic agents No acute indication for DIGITAL COORDINATOR will sign off, please re-consult if needed Subjective Date of service: 06/04/21 Principal diagnosis: Acute hypoxemic and hypercapnic resp failure; PUI COVID-19; Pneumonia; FERMIN Interval history: No overnight events reported Objective - Vital Signs Vital signs: Vital Signs - 12hr 06/03/21 06/03/21 06/03/21 22:30 22:45 23:00 Temperature Pulse Rate 121 H 119 H 116 H Pulse Rate [ Anterior Bilateral Throughout] Pulse Rate [ Posterior Tibial] Respiratory 24 24 25 H Rate Respiratory Rate [Anterior Bilateral Throughout] Blood Pressure 104/41 102/39 100/41 O2 Sat by Pulse 93 94 95 Oximetry 06/03/21 06/03/21 06/03/21 23:15 23:30 23:45 Temperature Pulse Rate 112 H 116 H 110 H Pulse Rate [ Anterior Bilateral Throughout] Pulse Rate [ Posterior Tibial] Respiratory 24 21 21 Rate Respiratory Rate [Anterior Bilateral Throughout] Blood Pressure 97/40 101/42 100/45 O2 Sat by Pulse 95 95 95 Oximetry 06/04/21 06/04/21 06/04/21 00:00 00:15 00:30 Temperature 101.5 F H Pulse Rate 107 H 109 H 107 H Pulse Rate [ Anterior Bilateral Throughout] Pulse Rate [ Posterior Tibial] Respiratory 25 H 26 H 24 Rate Respiratory Rate [Anterior Bilateral Throughout] Blood Pressure 97/42 96/45 96/46 O2 Sat by Pulse 94 95 96 Oximetry 06/04/21 06/04/21 06/04/21 00:43 00:45 01:00 Temperature Pulse Rate 106 H 105 H 105 H Pulse Rate [ Anterior Bilateral Throughout] Pulse Rate [ Posterior Tibial] Respiratory 25 H 25 H Rate Respiratory Rate [Anterior Bilateral Throughout] Blood Pressure 96/46 95/45 95/46 O2 Sat by Pulse 96 97 97 Oximetry 06/04/21 06/04/21 06/04/21 01:15 01:30 01:45 Temperature Pulse Rate 105 H 106 H 105 H Pulse Rate [ Anterior Bilateral Throughout] Pulse Rate [ Posterior Tibial] Respiratory 25 H 25 H 24 Rate Respiratory Rate [Anterior Bilateral Throughout] Blood Pressure 97/46 96/45 97/44 O2 Sat by Pulse 97 97 98 Oximetry 06/04/21 06/04/21 06/04/21 02:00 02:15 02:30 Temperature Pulse Rate 108 H 135 H 119 H Pulse Rate [ Anterior Bilateral Throughout] Pulse Rate [ Posterior Tibial] Respiratory 26 H 25 H 21 Rate Respiratory Rate [Anterior Bilateral Throughout] Blood Pressure 92/34 102/55 105/41 O2 Sat by Pulse 98 98 96 Oximetry 06/04/21 06/04/21 06/04/21 02:45 03:00 03:15 Temperature Pulse Rate 120 H 123 H 118 H Pulse Rate [ Anterior Bilateral Throughout] Pulse Rate [ Posterior Tibial] Respiratory 16 20 13 Rate Respiratory Rate [Anterior Bilateral Throughout] Blood Pressure 105/40 102/40 108/36 O2 Sat by Pulse 96 96 97 Oximetry 06/04/21 06/04/21 06/04/21 03:28 03:30 03:45 Temperature 101.4 F H Pulse Rate 113 H 110 H Pulse Rate [ Anterior Bilateral Throughout] Pulse Rate [ Posterior Tibial] Respiratory 22 24 Rate Respiratory Rate [Anterior Bilateral Throughout] Blood Pressure 90/34 104/49 O2 Sat by Pulse 96 96 Oximetry 06/04/21 06/04/21 06/04/21 04:00 04:15 04:23 Temperature 101.7 F H Pulse Rate 122 H 125 H Pulse Rate [ Anterior Bilateral Throughout] Pulse Rate [ Posterior Tibial] Respiratory 24 23 Rate Respiratory Rate [Anterior Bilateral Throughout] Blood Pressure 143/79 121/63 O2 Sat by Pulse 94 91 Oximetry 06/04/21 06/04/21 06/04/21 04:30 04:45 04:55 Temperature Pulse Rate 137 H 137 H 142 H Pulse Rate [ Anterior Bilateral Throughout] Pulse Rate [ Posterior Tibial] Respiratory 29 H 24 Rate Respiratory Rate [Anterior Bilateral Throughout] Blood Pressure 139/69 129/65 129/65 O2 Sat by Pulse 90 94 92 Oximetry 06/04/21 06/04/21 06/04/21 05:00 05:11 05:15 Temperature 101.7 F H Pulse Rate 140 H 135 H Pulse Rate [ Anterior Bilateral Throughout] Pulse Rate [ Posterior Tibial] Respiratory 25 H 26 H Rate Respiratory Rate [Anterior Bilateral Throughout] Blood Pressure 128/57 125/58 O2 Sat by Pulse 92 91 Oximetry 06/04/21 06/04/21 06/04/21 05:30 05:45 06:00 Temperature Pulse Rate 138 H 133 H 132 H Pulse Rate [ Anterior Bilateral Throughout] Pulse Rate [ Posterior Tibial] Respiratory 23 22 25 H Rate Respiratory Rate [Anterior Bilateral Throughout] Blood Pressure 124/58 121/55 125/52 O2 Sat by Pulse 91 91 91 Oximetry 06/04/21 06/04/21 06/04/21 06:15 06:30 06:45 Temperature Pulse Rate 132 H 128 H 125 H Pulse Rate [ Anterior Bilateral Throughout] Pulse Rate [ Posterior Tibial] Respiratory 24 25 H 25 H Rate Respiratory Rate [Anterior Bilateral Throughout] Blood Pressure 123/53 121/50 117/47 O2 Sat by Pulse 92 91 92 Oximetry 06/04/21 06/04/21 06/04/21 07:00 07:15 07:30 Temperature Pulse Rate 122 H 123 H 122 H Pulse Rate [ Anterior Bilateral Throughout] Pulse Rate [ Posterior Tibial] Respiratory 23 23 25 H Rate Respiratory Rate [Anterior Bilateral Throughout] Blood Pressure 120/51 119/52 111/48 O2 Sat by Pulse 91 91 93 Oximetry 06/04/21 06/04/21 06/04/21 07:45 08:00 08:15 Temperature 102 F H Pulse Rate 130 H 124 H 123 H Pulse Rate [ Anterior Bilateral Throughout] Pulse Rate [ 123 H Posterior Tibial] Respiratory 25 H 25 H 23 Rate Respiratory Rate [Anterior Bilateral Throughout] Blood Pressure 123/63 123/55 123/57 O2 Sat by Pulse 90 90 91 Oximetry 06/04/21 06/04/21 06/04/21 08:30 08:34 08:45 Temperature Pulse Rate 121 H 122 H 124 H Pulse Rate [ Anterior Bilateral Throughout] Pulse Rate [ Posterior Tibial] Respiratory 25 H 25 H Rate Respiratory Rate [Anterior Bilateral Throughout] Blood Pressure 120/51 120/51 122/55 O2 Sat by Pulse 92 91 92 Oximetry 06/04/21 06/04/21 06/04/21 09:00 09:15 09:30 Temperature Pulse Rate 121 H 121 H 120 H Pulse Rate [ 120 H Anterior Bilateral Throughout] Pulse Rate [ Posterior Tibial] Respiratory 25 H 25 H 24 Rate Respiratory 25 H Rate [Anterior Bilateral Throughout] Blood Pressure 115/50 116/52 113/52 O2 Sat by Pulse 94 94 93 Oximetry 06/04/21 06/04/21 09:45 10:00 Temperature Pulse Rate 122 H 120 H Pulse Rate [ Anterior Bilateral Throughout] Pulse Rate [ Posterior Tibial] Respiratory 24 25 H Rate Respiratory Rate [Anterior Bilateral Throughout] Blood Pressure 125/53 115/52 O2 Sat by Pulse 94 93 Oximetry - Lab 06/04/21 05:15 06/04/21 05:15 Most recent lab results ABG pH 7.293 pH Units (7.350-7.450) L 06/04/21 05:00 ABG pCO2 47.3 mm Hg 06/04/21 05:00 ABG pO2 69.1 mm Hg (80.0-90.0) L 06/04/21 05:00 ABG HCO3 22.4 mmol/L (20.0-26.0) 06/04/21 05:00 ABG O2 Saturation 92.3 % (95.0-99.0) L 06/04/21 05:00 Calcium 8.9 mg/dL (8.4-10.2) 06/04/21 05:15 Phosphorus 2.90 mg/dL (2.5-4.5) 05/28/21 05:30 Magnesium 2.40 mg/dL (1.7-2.3) H 05/28/21 05:30 Urine Creatinine 128.6 mg/dL (0.1-20.0) H 05/26/21 Unknown Urine Sodium 37 mmol/L 05/26/21 Unknown Medications & Allergies - Medications Allergies/Adverse Reactions: Allergies No Known Allergies Allergy (Unverified 05/25/21 12:48) Home Medications: Home Medications Medication Instructions Recorded Confirmed Last Taken Type Amoxicillin [Amoxicillin TAB] 875 mg PO BID #20 tablet 11/12/14 05/29/21 Unknown Rx Apixaban 2.5 mg PO BID 05/29/21 05/29/21 Unknown History Cholecalciferol (Vitamin D3) 3 mg PO 1XW 05/29/21 05/29/21 Unknown History Metoprolol 150 mg PO BID 05/29/21 05/29/21 Unknown History Torsemide 80 mg PO DAILY 05/29/21 05/29/21 Unknown History Active Medications: Generic Name Dose Route Start Last Admin Trade Name Freq PRN Reason Stop Dose Admin Acetaminophen 650 mg 05/23/21 20:42 06/04/21 10:10 Acetaminophen 325 Mg Tab PO 650 mg Q4H PRN Administration Pain MILD(1-3)/Fever >100.5/CASTORENA Albuterol 2.5 mg 05/23/21 21:11 Albuterol 2.5 Mg/3 Ml Nebu IH Q4HRT PRN Shortness Of Breath Albuterol/Ipratropium 1 ampul 05/29/21 08:00 06/04/21 08:39 Ipratropium/Albuterol Sulfate 3 Ml Ampul.Neb IH 1 ampul TIDRT ROSEMARIE Administration Lipase/Protease/Amylase 1 each 05/24/21 10:14 Lipase 10,500/Protease 25,000/Amylase 43,750 (Units) Dr Cap FEEDTUBE PRN PRN For Clogged Feeding Tube Apixaban 2.5 mg 05/29/21 13:00 06/04/21 10:10 Apixaban 2.5 Mg Tab PO 2.5 mg Q12HR ROSEMARIE Administration Protocol Famotidine 20 mg 05/27/21 10:00 06/04/21 10:10 Famotidine 20 Mg Tab FEEDTUBE 20 mg BID ROSEMARIE Administration Fentanyl 50 mcg 05/23/21 12:34 05/31/21 10:20 Fentanyl 100 Mcg/2 Ml Inj IV 50 mcg Q10MIN PRN Administration ANALGESIA Hydrophilic Ointment 1 applic 05/23/21 12:34 Lip Therapy Vaseline TP Q2HR PRN Dry Lips Fentanyl Citrate 2,000 mcg in 100 mls @ 8.528 mls/hr 05/23/21 13:00 06/04/21 10:10 Fentanyl Drip Premix IV Infused TITR ROSEMARIE Titration Protocol 1 MCG/KG/HR NORepinephrine/NS 8 MG-250 ML 8 mg in 250 mls @ 3.75 mls/hr 05/24/21 20:00 06/04/21 05:07 Norepinephrine/Ns 8 Mg-250 Ml (Double Conc) IV 0 mcg/min TITRATE ROSEMARIE 0 mls/hr Titration Protocol 2 MCG/MIN Multi-Ingred Cream/Lotion/Oil/Oint 1 applic 05/23/21 12:34 05/30/21 22:14 Mineral Oil/Petrolatum, White Ophth Oint 3.5 Gm OU 1 applic Q4HR PRN Administration Dry Eye(s) Ondansetron HCl 4 mg 05/23/21 20:42 Ondansetron 4 Mg/2 Ml Inj IV Q8H PRN Nausea And Vomiting Quetiapine Fumarate 100 mg 06/03/21 22:00 06/04/21 10:10 Quetiapine 100 Mg Tab PO 100 mg BID ROSEMARIE Administration Senna/Docusate Sodium 1 tab 05/23/21 22:00 06/04/21 10:10 Sennosides/Docusate Sodium 8.6/50 Mg Tab FEEDTUBE 1 tab BID ROSEMARIE Administration Simple Syrup 15 ml 05/24/21 10:14 Simple Syrup 15 Ml FEEDTUBE PRN PRN Hypoglycemia Simple Syrup 30 ml 05/24/21 10:14 Simple Syrup 15 Ml FEEDTUBE PRN PRN Hypoglycemia Sodium Bicarbonate 325 mg 05/24/21 10:14 Sodium Bicarbonate 325 Mg Tab FEEDTUBE PRN PRN For Clogged Feeding Tube Sodium Chloride 10 ml 05/23/21 22:00 06/04/21 10:09 Sodium Chloride 0.9% 10 Ml Flush Syringe IV 10 ml BID ROSEMARIE Administration Sodium Chloride 10 ml 05/23/21 20:42 Sodium Chloride 0.9% 10 Ml Flush Syringe IV PRN PRN LINE FLUSH
[2021-06-04] MEDS: SODIUM CHLORIDE 0.9% 1000 ML 1,000 ML IV SCH (11:43)
--- NOTE | 2021-06-04 13:11 | XRay Report ---
CHEST 1 VIEW 06/04/2021 12:02 PM INDICATION / CLINICAL INFORMATION: Increase FiO2. COMPARISON: 06/02/2021 FINDINGS: SUPPORT DEVICES: Stable, satisfactory device positioning. HEART / MEDIASTINUM: Stable. LUNGS / PLEURA: Stable bibasilar opacities. No pneumothorax. ADDITIONAL FINDINGS: No significant additional findings. IMPRESSION: 1. No adverse change from the prior exam. Signer Name: Lior Branch MD Signed: 06/04/2021 1:06 PM Workstation Name: [id number]
--- NOTE | 2021-06-04 13:34 | Progress Note ---
Assessment and Plan Acute possibly on chronic hypoxemic and hypercapnic respiratory failure Pneumonia, community-acquired Acute toxic metabolic encephalopathy Person under investigation for COVID-19 Morbid obesity Obstructive sleep apnea History of hypertension Acute kidney injury Hyperkalemia Elevated serum transaminases Possible shock liver Hyperammonemia Non-ST elevation myocardial infarction - 2 sets of blood cultures - ID reconsulted - Empiric Cefepime and Vancomycin started - FiO2 increased to 100% - repeat ABG in am - complete IVNS @ 75 mls/hr X 2 more liters - wean Levophed for target MAP > 65 mmHg - continue care as below otherwise; - continue Eliquis - continue Revatio re: pulm HTN - nephrology input appreciated (azotemia improving) - continue Daily SAT and SBT assessment as tolerated - continue to wean supplemental oxygen for target O2 sat's > 90% acutely - VAP bundle addressed - continue lung protective strategies - continue bronchodilators with pulmonary hygiene per RT - wean per pulmonary driven protocols otherwise - avoid nephrotoxins, renally dose all medications - continue accuchecks with glycemic control per SSI (While critically ill target blood glucose of 140-180 mg/dL; avoid hypoglycemia) - sedation prn for target RASS 0 to -1 - continue to avoid benzodiazepine's, reduce the possibility of delirium - AB's per ID rec's - prn analgesia per CPOT score - Maintenance of sleep-wake cycle, avoid delirium - continue enteral nutritional support at goal rate as tolerated - G.I. & VTE prophylaxis - PT/OT/ROM exercises - continue mobility protocols for pressure ulcer prophylaxis - Monitor hemodynamics closely - continue other care per attending / other consultants - discharge planning ongoing concurrently COVID SPECIFIC INTERVENTIONS - COVID-19 test result pending .... Re-evaluate in am & prn CONDITION: CRITICAL PROGNOSIS: GUARDED CODE STATUS: FULL CODE The high probability of a clinically significant, sudden or life-threatening deterioration of the [respiratory, cardiovascular, renal & neurologic] system(s) required my full and direct attention, intervention and personal management. The aggregate critical care time was [32] minutes without overlap. Time includes spent on; [x] Data Review and interpretation [x] Patient assessment and monitoring of vital signs [x] Documentation [x] Medication orders and management Subjective Date of service: 06/04/21 Principal diagnosis: Acute hypoxemic and hypercapnic resp failure; PUI COVID-19; Pneumonia; FERMIN Interval history: Patient is seen today for: Acute hypoxemic and hypercapnic respiratory failure; PUI NCOVID-19; Pneumonia; CAP; FERMIN; REVA Seen and examined at bedside; 24hour events reviewed; nursing and respiratory care staff consulted; no adverse overnight events reported to me; remains on MVS; fevers up to 102F today; oxygenation also has worsened; no emesis or overt aspiration reported Objective Vital Signs - 12hr 06/04/21 06/04/21 06/04/21 01:45 02:00 02:15 Temperature Pulse Rate 105 H 108 H 135 H Pulse Rate [ Anterior Bilateral Throughout] Pulse Rate [ Posterior Tibial] Respiratory 24 26 H 25 H Rate Respiratory Rate [Anterior Bilateral Throughout] Blood Pressure 97/44 92/34 102/55 O2 Sat by Pulse 98 98 98 Oximetry 06/04/21 06/04/21 06/04/21 02:30 02:45 03:00 Temperature Pulse Rate 119 H 120 H 123 H Pulse Rate [ Anterior Bilateral Throughout] Pulse Rate [ Posterior Tibial] Respiratory 21 16 20 Rate Respiratory Rate [Anterior Bilateral Throughout] Blood Pressure 105/41 105/40 102/40 O2 Sat by Pulse 96 96 96 Oximetry 06/04/21 06/04/21 06/04/21 03:15 03:28 03:30 Temperature 101.4 F H Pulse Rate 118 H 113 H Pulse Rate [ Anterior Bilateral Throughout] Pulse Rate [ Posterior Tibial] Respiratory 13 22 Rate Respiratory Rate [Anterior Bilateral Throughout] Blood Pressure 108/36 90/34 O2 Sat by Pulse 97 96 Oximetry 06/04/21 06/04/21 06/04/21 03:45 04:00 04:15 Temperature Pulse Rate 110 H 122 H 125 H Pulse Rate [ Anterior Bilateral Throughout] Pulse Rate [ Posterior Tibial] Respiratory 24 24 23 Rate Respiratory Rate [Anterior Bilateral Throughout] Blood Pressure 104/49 143/79 121/63 O2 Sat by Pulse 96 94 91 Oximetry 06/04/21 06/04/21 06/04/21 04:23 04:30 04:45 Temperature 101.7 F H Pulse Rate 137 H 137 H Pulse Rate [ Anterior Bilateral Throughout] Pulse Rate [ Posterior Tibial] Respiratory 29 H 24 Rate Respiratory Rate [Anterior Bilateral Throughout] Blood Pressure 139/69 129/65 O2 Sat by Pulse 90 94 Oximetry 06/04/21 06/04/21 06/04/21 04:55 05:00 05:11 Temperature 101.7 F H Pulse Rate 142 H 140 H Pulse Rate [ Anterior Bilateral Throughout] Pulse Rate [ Posterior Tibial] Respiratory 25 H Rate Respiratory Rate [Anterior Bilateral Throughout] Blood Pressure 129/65 128/57 O2 Sat by Pulse 92 92 Oximetry 06/04/21 06/04/21 06/04/21 05:15 05:30 05:45 Temperature Pulse Rate 135 H 138 H 133 H Pulse Rate [ Anterior Bilateral Throughout] Pulse Rate [ Posterior Tibial] Respiratory 26 H 23 22 Rate Respiratory Rate [Anterior Bilateral Throughout] Blood Pressure 125/58 124/58 121/55 O2 Sat by Pulse 91 91 91 Oximetry 06/04/21 06/04/21 06/04/21 06:00 06:15 06:30 Temperature Pulse Rate 132 H 132 H 128 H Pulse Rate [ Anterior Bilateral Throughout] Pulse Rate [ Posterior Tibial] Respiratory 25 H 24 25 H Rate Respiratory Rate [Anterior Bilateral Throughout] Blood Pressure 125/52 123/53 121/50 O2 Sat by Pulse 91 92 91 Oximetry 06/04/21 06/04/21 06/04/21 06:45 07:00 07:15 Temperature Pulse Rate 125 H 122 H 123 H Pulse Rate [ Anterior Bilateral Throughout] Pulse Rate [ Posterior Tibial] Respiratory 25 H 23 23 Rate Respiratory Rate [Anterior Bilateral Throughout] Blood Pressure 117/47 120/51 119/52 O2 Sat by Pulse 92 91 91 Oximetry 06/04/21 06/04/21 06/04/21 07:30 07:45 08:00 Temperature 102 F H Pulse Rate 122 H 130 H 124 H Pulse Rate [ Anterior Bilateral Throughout] Pulse Rate [ 123 H Posterior Tibial] Respiratory 25 H 25 H 25 H Rate Respiratory Rate [Anterior Bilateral Throughout] Blood Pressure 111/48 123/63 123/55 O2 Sat by Pulse 93 90 90 Oximetry 06/04/21 06/04/21 06/04/21 08:15 08:30 08:34 Temperature Pulse Rate 123 H 121 H 122 H Pulse Rate [ Anterior Bilateral Throughout] Pulse Rate [ Posterior Tibial] Respiratory 23 25 H Rate Respiratory Rate [Anterior Bilateral Throughout] Blood Pressure 123/57 120/51 120/51 O2 Sat by Pulse 91 92 91 Oximetry 06/04/21 06/04/21 06/04/21 08:45 09:00 09:15 Temperature Pulse Rate 124 H 121 H 121 H Pulse Rate [ 120 H Anterior Bilateral Throughout] Pulse Rate [ Posterior Tibial] Respiratory 25 H 25 H 25 H Rate Respiratory 25 H Rate [Anterior Bilateral Throughout] Blood Pressure 122/55 115/50 116/52 O2 Sat by Pulse 92 94 94 Oximetry 06/04/21 06/04/21 06/04/21 09:30 09:45 10:00 Temperature Pulse Rate 120 H 122 H 120 H Pulse Rate [ Anterior Bilateral Throughout] Pulse Rate [ Posterior Tibial] Respiratory 24 24 25 H Rate Respiratory Rate [Anterior Bilateral Throughout] Blood Pressure 113/52 125/53 115/52 O2 Sat by Pulse 93 94 93 Oximetry 06/04/21 06/04/21 06/04/21 10:15 10:30 10:46 Temperature Pulse Rate 122 H 143 H Pulse Rate [ Anterior Bilateral Throughout] Pulse Rate [ Posterior Tibial] Respiratory 26 H 43 H 32 H Rate Respiratory Rate [Anterior Bilateral Throughout] Blood Pressure 119/58 130/63 144/73 O2 Sat by Pulse 92 93 91 Oximetry 06/04/21 06/04/21 06/04/21 11:01 11:57 12:00 Temperature 101.7 F H Pulse Rate 139 H 131 H Pulse Rate [ Anterior Bilateral Throughout] Pulse Rate [ Posterior Tibial] Respiratory 29 H Rate Respiratory Rate [Anterior Bilateral Throughout] Blood Pressure 135/63 119/48 O2 Sat by Pulse 91 91 Oximetry Constitutional: appears uncomfortable, other (middle aged morbidly obese male with mildly increased respiratory effort at rest on MVS) Eyes: non-icteric ENT: oropharynx moist, other (ETT 24 cm FRANCIS) Neck: supple, no lymphadenopathy, no JVD Effort: mildly labored Ascultation: Bilateral: diminished breath sounds, rhonchi Percussion: Bilateral: not dull Cardiovascular: regular rate and rhythm Gastrointestinal: normoactive bowel sounds, soft, non-tender, non-distended Integumentary: rash (stasis dermatitis) Extremities: no cyanosis, pulses normal, no ischemia or petechiae, edema (trace) Neurologic: non-focal exam (grossly), pupils equal and round, CN II-XII normal, other (sedated) Psychiatric: other (sedated) CBC and BMP: 06/04/21 13:54 06/04/21 13:56 ABG, PT/INR, D-dimer: ABG ABG pH 7.293 pH Units (7.350-7.450) L 06/04/21 05:00 POC ABG pCO2 47.3 mmHg (32.0-48.0) 06/03/21 06:55 ABG pCO2 47.3 mm Hg 06/04/21 05:00 POC ABG pO2 67.4 mmHg (83-108) L 06/03/21 06:55 ABG pO2 69.1 mm Hg (80.0-90.0) L 06/04/21 05:00 POC ABG HCO3 22.6 06/03/21 06:55 ABG O2 Saturation 92.3 % (95.0-99.0) L 06/04/21 05:00 PT/INR, D-dimer PT 15.3 Sec. (12.2-14.9) H 05/29/21 13:40 INR 1.09 (0.87-1.13) 05/29/21 13:40 D-Dimer 4444.85 ng/mlDDU (0-234) H 05/23/21 15:09 Abnormal lab findings: Abnormal Labs 05/23/21 05/23/21 05/23/21 15:00 15:09 15:09 WBC RBC Hgb Hct MCV 95 H MCHC 30 L RDW 20.1 H Plt Count Lymph % (Auto) 5.9 L [place] % (Auto) Lymph # (Auto) 0.6 L [place] # (Auto) Seg Neutrophils % 87.5 H Seg Neuts % (Manual) Lymphocytes % (Manual) Seg Neutrophils # 8.2 H Seg Neutrophils # Man Lymphocytes # (Manual) PT 18.1 H INR 1.36 H APTT 23.1 L D-Dimer ABG pH 7.215 L POC ABG pCO2 POC ABG pO2 ABG pO2 ABG HCO3 28.4 H ABG O2 Saturation ABG Base Excess ABG Hemoglobin 13.5 L ABG Oxyhemoglobin ABG Sodium ABG Potassium ABG Chloride ABG Glucose Oxyhemoglobin 92.6 L Sodium Potassium Carbon Dioxide BUN Creatinine Glucose POC Glucose Calcium Magnesium AST ALT Ammonia Total Creatine Kinase Troponin T C-Reactive Protein NT-Pro-B Natriuret Pep Albumin Triglycerides HDL Cholesterol Arterial Blood Glucose Urine WBC (Auto) Urine Creatinine Salicylates Acetaminophen 05/23/21 05/23/21 05/23/21 15:09 15:09 15:09 WBC RBC Hgb Hct MCV MCHC RDW Plt Count Lymph % (Auto) [place] % (Auto) Lymph # (Auto) [place] # (Auto) Seg Neutrophils % Seg Neuts % (Manual) Lymphocytes % (Manual) Seg Neutrophils # Seg Neutrophils # Man Lymphocytes # (Manual) PT INR APTT D-Dimer ABG pH POC ABG pCO2 POC ABG pO2 ABG pO2 ABG HCO3 ABG O2 Saturation ABG Base Excess ABG Hemoglobin ABG Oxyhemoglobin ABG Sodium ABG Potassium ABG Chloride ABG Glucose Oxyhemoglobin Sodium Potassium 5.2 H Carbon Dioxide BUN 40 H Creatinine 3.2 H Glucose 133 H POC Glucose Calcium Magnesium AST 1094 H ALT 1089 H Ammonia 75.0 H Total Creatine Kinase Troponin T 0.038 H C-Reactive Protein NT-Pro-B Natriuret Pep Albumin 3.0 L Triglycerides HDL Cholesterol 29 L Arterial Blood Glucose Urine WBC (Auto) Urine Creatinine Salicylates < 0.3 L Acetaminophen 05/23/21 05/23/21 05/23/21 15:09 15:09 15:09 WBC RBC Hgb Hct MCV MCHC RDW Plt Count Lymph % (Auto) [place] % (Auto) Lymph # (Auto) [place] # (Auto) Seg Neutrophils % Seg Neuts % (Manual) Lymphocytes % (Manual) Seg Neutrophils # Seg Neutrophils # Man Lymphocytes # (Manual) PT INR APTT D-Dimer 4444.85 H ABG pH POC ABG pCO2 POC ABG pO2 ABG pO2 ABG HCO3 ABG O2 Saturation ABG Base Excess ABG Hemoglobin ABG Oxyhemoglobin ABG Sodium ABG Potassium ABG Chloride ABG Glucose Oxyhemoglobin Sodium Potassium Carbon Dioxide BUN Creatinine Glucose POC Glucose Calcium Magnesium AST ALT Ammonia Total Creatine Kinase 48 L Troponin T C-Reactive Protein NT-Pro-B Natriuret Pep 17193 H Albumin Triglycerides HDL Cholesterol Arterial Blood Glucose Urine WBC (Auto) Urine Creatinine Salicylates Acetaminophen 5.0 L 05/23/21 05/23/21 05/23/21 19:10 20:48 Unknown WBC RBC Hgb Hct MCV MCHC RDW Plt Count Lymph % (Auto) [place] % (Auto) Lymph # (Auto) [place] # (Auto) Seg Neutrophils % Seg Neuts % (Manual) Lymphocytes % (Manual) Seg Neutrophils # Seg Neutrophils # Man Lymphocytes # (Manual) PT INR APTT D-Dimer ABG pH 7.332 L POC ABG pCO2 POC ABG pO2 ABG pO2 74.0 L ABG HCO3 ABG O2 Saturation 94.4 L ABG Base Excess ABG Hemoglobin 12.5 L ABG Oxyhemoglobin ABG Sodium ABG Potassium ABG Chloride ABG Glucose Oxyhemoglobin 92.3 L Sodium Potassium Carbon Dioxide BUN Creatinine Glucose POC Glucose Calcium Magnesium AST ALT Ammonia Total Creatine Kinase Troponin T C-Reactive Protein 10.00 H NT-Pro-B Natriuret Pep Albumin Triglycerides HDL Cholesterol Arterial Blood Glucose Urine WBC (Auto) 34.0 H Urine Creatinine Salicylates Acetaminophen 05/24/21 05/24/21 05/24/21 04:55 04:55 09:15 WBC RBC Hgb Hct MCV 95 H MCHC 31 L RDW 19.4 H Plt Count Lymph % (Auto) [place] % (Auto) Lymph # (Auto) [place] # (Auto) Seg Neutrophils % Seg Neuts % (Manual) 97.0 H Lymphocytes % (Manual) 3.0 L Seg Neutrophils # Seg Neutrophils # Man 8.4 H Lymphocytes # (Manual) 0.3 L PT INR APTT D-Dimer ABG pH POC ABG pCO2 POC ABG pO2 ABG pO2 90.6 H ABG HCO3 ABG O2 Saturation ABG Base Excess -3.7 L ABG Hemoglobin 13.5 L ABG Oxyhemoglobin ABG Sodium ABG Potassium ABG Chloride ABG Glucose Oxyhemoglobin Sodium Potassium 5.5 H Carbon Dioxide 20 L BUN 39 H Creatinine 2.2 H Glucose 155 H POC Glucose Calcium 8.3 L Magnesium AST 571 H ALT 951 H Ammonia Total Creatine Kinase Troponin T C-Reactive Protein NT-Pro-B Natriuret Pep Albumin 3.2 L Triglycerides HDL Cholesterol Arterial Blood Glucose Urine WBC (Auto) Urine Creatinine Salicylates Acetaminophen 05/25/21 05/25/21 05/25/21 04:20 14:37 14:37 WBC RBC Hgb Hct MCV 96 H MCHC 30 L RDW 20.7 H Plt Count Lymph % (Auto) [place] % (Auto) Lymph # (Auto) [place] # (Auto) Seg Neutrophils % Seg Neuts % (Manual) Lymphocytes % (Manual) Seg Neutrophils # Seg Neutrophils # Man Lymphocytes # (Manual) PT INR APTT D-Dimer ABG pH 7.222 L POC ABG pCO2 57.8 H POC ABG pO2 67.3 L ABG pO2 ABG HCO3 ABG O2 Saturation ABG Base Excess ABG Hemoglobin ABG Oxyhemoglobin 89.1 L ABG Sodium ABG Potassium 5.1 H ABG Chloride ABG Glucose 182 H Oxyhemoglobin Sodium Potassium 5.3 H Carbon Dioxide BUN 47 H Creatinine 2.0 H Glucose 154 H POC Glucose Calcium Magnesium AST 93 H ALT 590 H Ammonia Total Creatine Kinase Troponin T C-Reactive Protein NT-Pro-B Natriuret Pep Albumin 3.6 L Triglycerides HDL Cholesterol Arterial Blood Glucose 182 H Urine WBC (Auto) Urine Creatinine Salicylates Acetaminophen 05/25/21 05/25/21 05/26/21 21:50 23:30 05:31 WBC RBC Hgb Hct MCV MCHC RDW Plt Count Lymph % (Auto) [place] % (Auto) Lymph # (Auto) [place] # (Auto) Seg Neutrophils % Seg Neuts % (Manual) Lymphocytes % (Manual) Seg Neutrophils # Seg Neutrophils # Man Lymphocytes # (Manual) PT INR APTT D-Dimer ABG pH 7.328 L POC ABG pCO2 POC ABG pO2 ABG pO2 63.3 L ABG HCO3 ABG O2 Saturation 92.1 L ABG Base Excess -2.4 L ABG Hemoglobin 11.3 L ABG Oxyhemoglobin ABG Sodium ABG Potassium ABG Chloride ABG Glucose Oxyhemoglobin 90.3 L Sodium Potassium Carbon Dioxide BUN Creatinine Glucose POC Glucose 131 H 123 H Calcium Magnesium AST ALT Ammonia Total Creatine Kinase Troponin T C-Reactive Protein NT-Pro-B Natriuret Pep Albumin Triglycerides HDL Cholesterol Arterial Blood Glucose Urine WBC (Auto) Urine Creatinine Salicylates Acetaminophen 05/26/21 05/26/21 05/26/21 09:02 10:57 17:30 WBC RBC Hgb Hct MCV MCHC RDW Plt Count Lymph % (Auto) [place] % (Auto) Lymph # (Auto) [place] # (Auto) Seg Neutrophils % Seg Neuts % (Manual) Lymphocytes % (Manual) Seg Neutrophils # Seg Neutrophils # Man Lymphocytes # (Manual) PT INR APTT D-Dimer ABG pH 7.346 L POC ABG pCO2 POC ABG pO2 ABG pO2 60.5 L ABG HCO3 ABG O2 Saturation 90.7 L ABG Base Excess ABG Hemoglobin 13.1 L ABG Oxyhemoglobin ABG Sodium ABG Potassium ABG Chloride ABG Glucose Oxyhemoglobin 88.9 L Sodium Potassium Carbon Dioxide BUN Creatinine Glucose POC Glucose 127 H 141 H Calcium Magnesium AST ALT Ammonia Total Creatine Kinase Troponin T C-Reactive Protein NT-Pro-B Natriuret Pep Albumin Triglycerides HDL Cholesterol Arterial Blood Glucose Urine WBC (Auto) Urine Creatinine Salicylates Acetaminophen 05/26/21 05/26/21 05/26/21 21:00 Unknown Unknown WBC 4.2 L RBC Hgb 11.7 L Hct MCV MCHC 31 L RDW 20.3 H Plt Count 132 L Lymph % (Auto) [place] % (Auto) Lymph # (Auto) [place] # (Auto) Seg Neutrophils % Seg Neuts % (Manual) Lymphocytes % (Manual) Seg Neutrophils # Seg Neutrophils # Man Lymphocytes # (Manual) PT INR APTT D-Dimer ABG pH POC ABG pCO2 POC ABG pO2 56.7 L ABG pO2 ABG HCO3 ABG O2 Saturation ABG Base Excess ABG Hemoglobin ABG Oxyhemoglobin 88.8 L ABG Sodium ABG Potassium 4.7 H ABG Chloride ABG Glucose 152 H Oxyhemoglobin Sodium Potassium 5.2 H Carbon Dioxide BUN 47 H Creatinine 2.0 H Glucose 136 H POC Glucose Calcium Magnesium AST 64 H ALT 448 H Ammonia Total Creatine Kinase Troponin T C-Reactive Protein NT-Pro-B Natriuret Pep Albumin 3.4 L Triglycerides HDL Cholesterol Arterial Blood Glucose 152 H Urine WBC (Auto) Urine Creatinine Salicylates Acetaminophen 05/26/21 05/27/21 05/27/21 Unknown 08:00 08:00 WBC 4.2 L RBC Hgb Hct MCV MCHC RDW 21.2 H Plt Count 126 L Lymph % (Auto) [place] % (Auto) Lymph # (Auto) [place] # (Auto) Seg Neutrophils % Seg Neuts % (Manual) Lymphocytes % (Manual) Seg Neutrophils # Seg Neutrophils # Man Lymphocytes # (Manual) PT INR APTT D-Dimer ABG pH POC ABG pCO2 POC ABG pO2 ABG pO2 ABG HCO3 ABG O2 Saturation ABG Base Excess ABG Hemoglobin ABG Oxyhemoglobin ABG Sodium ABG Potassium ABG Chloride ABG Glucose Oxyhemoglobin Sodium Potassium Carbon Dioxide BUN 52 H Creatinine 1.8 H Glucose 171 H POC Glucose Calcium 8.3 L Magnesium AST ALT Ammonia Total Creatine Kinase Troponin T C-Reactive Protein NT-Pro-B Natriuret Pep Albumin Triglycerides HDL Cholesterol Arterial Blood Glucose Urine WBC (Auto) Urine Creatinine 128.6 H Salicylates Acetaminophen 05/27/21 05/27/21 05/27/21 10:15 11:48 17:13 WBC RBC Hgb Hct MCV MCHC RDW Plt Count Lymph % (Auto) [place] % (Auto) Lymph # (Auto) [place] # (Auto) Seg Neutrophils % Seg Neuts % (Manual) Lymphocytes % (Manual) Seg Neutrophils # Seg Neutrophils # Man Lymphocytes # (Manual) PT INR APTT D-Dimer ABG pH 7.300 L POC ABG pCO2 POC ABG pO2 ABG pO2 42.1 L ABG HCO3 ABG O2 Saturation 72.8 L ABG Base Excess ABG Hemoglobin 12.7 L ABG Oxyhemoglobin ABG Sodium ABG Potassium ABG Chloride ABG Glucose Oxyhemoglobin 71.4 L Sodium Potassium Carbon Dioxide BUN Creatinine Glucose POC Glucose 139 H 145 H Calcium Magnesium AST ALT Ammonia Total Creatine Kinase Troponin T C-Reactive Protein NT-Pro-B Natriuret Pep Albumin Triglycerides HDL Cholesterol Arterial Blood Glucose Urine WBC (Auto) Urine Creatinine Salicylates Acetaminophen 05/28/21 05/28/21 05/28/21 05:30 11:37 13:32 WBC RBC Hgb Hct MCV MCHC RDW Plt Count Lymph % (Auto) [place] % (Auto) Lymph # (Auto) [place] # (Auto) Seg Neutrophils % Seg Neuts % (Manual) Lymphocytes % (Manual) Seg Neutrophils # Seg Neutrophils # Man Lymphocytes # (Manual) PT INR APTT D-Dimer ABG pH 7.339 L POC ABG pCO2 POC ABG pO2 ABG pO2 53.7 L ABG HCO3 ABG O2 Saturation 86.5 L ABG Base Excess ABG Hemoglobin 12.3 L ABG Oxyhemoglobin ABG Sodium ABG Potassium ABG Chloride ABG Glucose Oxyhemoglobin 84.6 L Sodium Potassium Carbon Dioxide BUN 53 H Creatinine 1.6 H Glucose 118 H POC Glucose 115 H Calcium 8.0 L Magnesium 2.40 H AST ALT Ammonia Total Creatine Kinase Troponin T C-Reactive Protein NT-Pro-B Natriuret Pep Albumin Triglycerides HDL Cholesterol Arterial Blood Glucose Urine WBC (Auto) Urine Creatinine Salicylates Acetaminophen 05/28/21 05/29/21 05/29/21 Unknown 09:43 13:40 WBC RBC Hgb 11.7 L Hct MCV MCHC 31 L RDW 21.3 H 20.9 H Plt Count 121 L 103 L Lymph % (Auto) [place] % (Auto) Lymph # (Auto) [place] # (Auto) Seg Neutrophils % Seg Neuts % (Manual) Lymphocytes % (Manual) Seg Neutrophils # Seg Neutrophils # Man Lymphocytes # (Manual) PT INR APTT D-Dimer ABG pH POC ABG pCO2 POC ABG pO2 ABG pO2 60.9 L ABG HCO3 ABG O2 Saturation 90.7 L ABG Base Excess ABG Hemoglobin 12.0 L ABG Oxyhemoglobin ABG Sodium ABG Potassium ABG Chloride ABG Glucose Oxyhemoglobin 88.9 L Sodium Potassium Carbon Dioxide BUN Creatinine Glucose POC Glucose Calcium Magnesium AST ALT Ammonia Total Creatine Kinase Troponin T C-Reactive Protein NT-Pro-B Natriuret Pep Albumin Triglycerides HDL Cholesterol Arterial Blood Glucose Urine WBC (Auto) Urine Creatinine Salicylates Acetaminophen 05/29/21 05/29/21 05/30/21 13:40 13:40 04:42 WBC RBC Hgb 11.7 L Hct MCV 95 H MCHC RDW 20.8 H Plt Count 106 L Lymph % (Auto) [place] % (Auto) Lymph # (Auto) [place] # (Auto) Seg Neutrophils % Seg Neuts % (Manual) Lymphocytes % (Manual) Seg Neutrophils # Seg Neutrophils # Man Lymphocytes # (Manual) PT 15.3 H INR APTT D-Dimer ABG pH POC ABG pCO2 POC ABG pO2 ABG pO2 ABG HCO3 ABG O2 Saturation ABG Base Excess ABG Hemoglobin ABG Oxyhemoglobin ABG Sodium ABG Potassium ABG Chloride ABG Glucose Oxyhemoglobin Sodium Potassium Carbon Dioxide BUN Creatinine 1.7 H Glucose POC Glucose Calcium Magnesium AST ALT Ammonia Total Creatine Kinase Troponin T C-Reactive Protein NT-Pro-B Natriuret Pep Albumin Triglycerides HDL Cholesterol Arterial Blood Glucose Urine WBC (Auto) Urine Creatinine Salicylates Acetaminophen 05/30/21 05/30/21 05/30/21 04:42 07:47 09:22 WBC RBC Hgb Hct MCV MCHC RDW Plt Count Lymph % (Auto) [place] % (Auto) Lymph # (Auto) [place] # (Auto) Seg Neutrophils % Seg Neuts % (Manual) Lymphocytes % (Manual) Seg Neutrophils # Seg Neutrophils # Man Lymphocytes # (Manual) PT INR APTT D-Dimer ABG pH 7.323 L POC ABG pCO2 POC ABG pO2 ABG pO2 107.0 H ABG HCO3 ABG O2 Saturation ABG Base Excess ABG Hemoglobin 12.4 L ABG Oxyhemoglobin ABG Sodium ABG Potassium ABG Chloride ABG Glucose Oxyhemoglobin Sodium 135 L Potassium Carbon Dioxide BUN 63 H 63 H Creatinine 1.6 H 1.6 H Glucose POC Glucose Calcium 8.2 L Magnesium AST ALT Ammonia Total Creatine Kinase Troponin T C-Reactive Protein NT-Pro-B Natriuret Pep Albumin Triglycerides HDL Cholesterol Arterial Blood Glucose Urine WBC (Auto) Urine Creatinine Salicylates Acetaminophen 05/31/21 05/31/21 05/31/21 05:16 05:16 05:17 WBC RBC Hgb 11.1 L Hct MCV MCHC 31 L RDW 20.8 H Plt Count 116 L Lymph % (Auto) [place] % (Auto) Lymph # (Auto) [place] # (Auto) Seg Neutrophils % Seg Neuts % (Manual) Lymphocytes % (Manual) Seg Neutrophils # Seg Neutrophils # Man Lymphocytes # (Manual) PT INR APTT D-Dimer ABG pH POC ABG pCO2 POC ABG pO2 ABG pO2 ABG HCO3 ABG O2 Saturation ABG Base Excess ABG Hemoglobin ABG Oxyhemoglobin ABG Sodium ABG Potassium ABG Chloride ABG Glucose Oxyhemoglobin Sodium Potassium Carbon Dioxide BUN 62 H Creatinine 1.9 H Glucose 103 H POC Glucose 109 H Calcium Magnesium AST ALT Ammonia Total Creatine Kinase Troponin T C-Reactive Protein NT-Pro-B Natriuret Pep Albumin Triglycerides HDL Cholesterol Arterial Blood Glucose Urine WBC (Auto) Urine Creatinine Salicylates Acetaminophen 05/31/21 05/31/21 06/01/21 16:49 Unknown 03:06 WBC RBC Hgb Hct MCV MCHC RDW Plt Count Lymph % (Auto) [place] % (Auto) Lymph # (Auto) [place] # (Auto) Seg Neutrophils % Seg Neuts % (Manual) Lymphocytes % (Manual) Seg Neutrophils # Seg Neutrophils # Man Lymphocytes # (Manual) PT INR APTT D-Dimer ABG pH POC ABG pCO2 48.4 H POC ABG pO2 63.0 L 55.0 L ABG pO2 ABG HCO3 ABG O2 Saturation ABG Base Excess ABG Hemoglobin 11.9 L 10.9 L ABG Oxyhemoglobin 91.4 L 87.5 L ABG Sodium 127.4 L ABG Potassium 4.6 H 4.6 H ABG Chloride 108.0 H ABG Glucose 110 H 108 H Oxyhemoglobin Sodium Potassium Carbon Dioxide BUN Creatinine Glucose POC Glucose 107 H Calcium Magnesium AST ALT Ammonia Total Creatine Kinase Troponin T C-Reactive Protein NT-Pro-B Natriuret Pep Albumin Triglycerides HDL Cholesterol Arterial Blood Glucose 110 H 108 H Urine WBC (Auto) Urine Creatinine Salicylates Acetaminophen 06/01/21 06/01/21 06/01/21 07:00 07:00 17:09 WBC RBC Hgb 11.2 L Hct MCV 96 H MCHC 31 L RDW 20.6 H Plt Count Lymph % (Auto) [place] % (Auto) Lymph # (Auto) [place] # (Auto) Seg Neutrophils % Seg Neuts % (Manual) Lymphocytes % (Manual) Seg Neutrophils # Seg Neutrophils # Man Lymphocytes # (Manual) PT INR APTT D-Dimer ABG pH POC ABG pCO2 POC ABG pO2 ABG pO2 ABG HCO3 ABG O2 Saturation ABG Base Excess ABG Hemoglobin ABG Oxyhemoglobin ABG Sodium ABG Potassium ABG Chloride ABG Glucose Oxyhemoglobin Sodium Potassium Carbon Dioxide BUN 59 H Creatinine 1.6 H Glucose 104 H POC Glucose 106 H Calcium Magnesium AST ALT Ammonia Total Creatine Kinase Troponin T C-Reactive Protein NT-Pro-B Natriuret Pep Albumin Triglycerides HDL Cholesterol Arterial Blood Glucose Urine WBC (Auto) Urine Creatinine Salicylates Acetaminophen 06/01/21 06/02/21 06/02/21 23:42 04:23 04:23 WBC RBC 3.48 L Hgb 10.1 L Hct 33.1 L MCV 95 H MCHC 31 L RDW 19.9 H Plt Count Lymph % (Auto) [place] % (Auto) Lymph # (Auto) [place] # (Auto) Seg Neutrophils % Seg Neuts % (Manual) Lymphocytes % (Manual) Seg Neutrophils # Seg Neutrophils # Man Lymphocytes # (Manual) PT INR APTT D-Dimer ABG pH POC ABG pCO2 POC ABG pO2 ABG pO2 ABG HCO3 ABG O2 Saturation ABG Base Excess ABG Hemoglobin ABG Oxyhemoglobin ABG Sodium ABG Potassium ABG Chloride ABG Glucose Oxyhemoglobin Sodium Potassium Carbon Dioxide BUN 61 H Creatinine 1.7 H Glucose 119 H POC Glucose 109 H Calcium Magnesium AST ALT Ammonia Total Creatine Kinase Troponin T C-Reactive Protein NT-Pro-B Natriuret Pep Albumin Triglycerides HDL Cholesterol Arterial Blood Glucose Urine WBC (Auto) Urine Creatinine Salicylates Acetaminophen 06/02/21 06/02/21 06/02/21 05:38 05:40 10:01 WBC RBC Hgb Hct MCV MCHC RDW Plt Count Lymph % (Auto) [place] % (Auto) Lymph # (Auto) [place] # (Auto) Seg Neutrophils % Seg Neuts % (Manual) Lymphocytes % (Manual) Seg Neutrophils # Seg Neutrophils # Man Lymphocytes # (Manual) PT INR APTT D-Dimer ABG pH 7.315 L POC ABG pCO2 POC ABG pO2 62.1 L ABG pO2 ABG HCO3 ABG O2 Saturation ABG Base Excess ABG Hemoglobin 10.8 L ABG Oxyhemoglobin 91.0 L ABG Sodium 133.5 L ABG Potassium 5.0 H ABG Chloride 109.0 H ABG Glucose 124 H Oxyhemoglobin Sodium Potassium Carbon Dioxide BUN Creatinine Glucose POC Glucose 49 L 107 H Calcium Magnesium AST ALT Ammonia Total Creatine Kinase Troponin T C-Reactive Protein NT-Pro-B Natriuret Pep Albumin Triglycerides HDL Cholesterol Arterial Blood Glucose 124 H Urine WBC (Auto) Urine Creatinine Salicylates Acetaminophen 06/02/21 06/03/21 06/03/21 11:26 04:10 04:10 WBC RBC 3.25 L Hgb 9.9 L Hct 31.8 L MCV 98 H MCHC 31 L RDW 19.9 H Plt Count Lymph % (Auto) 6.2 L [place] % (Auto) 13.1 H Lymph # (Auto) 0.5 L [place] # (Auto) 1.1 H Seg Neutrophils % Seg Neuts % (Manual) Lymphocytes % (Manual) Seg Neutrophils # Seg Neutrophils # Man Lymphocytes # (Manual) PT INR APTT D-Dimer ABG pH POC ABG pCO2 POC ABG pO2 ABG pO2 ABG HCO3 ABG O2 Saturation ABG Base Excess ABG Hemoglobin ABG Oxyhemoglobin ABG Sodium ABG Potassium ABG Chloride ABG Glucose Oxyhemoglobin Sodium Potassium Carbon Dioxide BUN Creatinine Glucose POC Glucose 117 H Calcium Magnesium AST ALT Ammonia Total Creatine Kinase Troponin T C-Reactive Protein NT-Pro-B Natriuret Pep Albumin Triglycerides 830 H HDL Cholesterol Arterial Blood Glucose Urine WBC (Auto) Urine Creatinine Salicylates Acetaminophen 06/03/21 06/03/21 06/03/21 04:10 05:36 06:55 WBC RBC Hgb Hct MCV MCHC RDW Plt Count Lymph % (Auto) [place] % (Auto) Lymph # (Auto) [place] # (Auto) Seg Neutrophils % Seg Neuts % (Manual) Lymphocytes % (Manual) Seg Neutrophils # Seg Neutrophils # Man Lymphocytes # (Manual) PT INR APTT D-Dimer ABG pH 7.298 L POC ABG pCO2 POC ABG pO2 67.4 L ABG pO2 ABG HCO3 ABG O2 Saturation ABG Base Excess ABG Hemoglobin 11.7 L ABG Oxyhemoglobin 91.2 L ABG Sodium 134.3 L ABG Potassium 4.7 H ABG Chloride 108.0 H ABG Glucose 110 H Oxyhemoglobin Sodium 136 L Potassium Carbon Dioxide 20 L BUN 57 H Creatinine 1.7 H Glucose 108 H POC Glucose 114 H Calcium 8.2 L Magnesium AST ALT Ammonia Total Creatine Kinase Troponin T C-Reactive Protein NT-Pro-B Natriuret Pep Albumin Triglycerides HDL Cholesterol Arterial Blood Glucose 110 H Urine WBC (Auto) Urine Creatinine Salicylates Acetaminophen 06/03/21 06/03/21 06/04/21 13:06 23:30 05:00 WBC RBC Hgb Hct MCV MCHC RDW Plt Count Lymph % (Auto) [place] % (Auto) Lymph # (Auto) [place] # (Auto) Seg Neutrophils % Seg Neuts % (Manual) Lymphocytes % (Manual) Seg Neutrophils # Seg Neutrophils # Man Lymphocytes # (Manual) PT INR APTT D-Dimer ABG pH 7.293 L POC ABG pCO2 POC ABG pO2 ABG pO2 69.1 L ABG HCO3 ABG O2 Saturation 92.3 L ABG Base Excess -4.0 L ABG Hemoglobin 8.9 L ABG Oxyhemoglobin ABG Sodium ABG Potassium ABG Chloride ABG Glucose Oxyhemoglobin 90.3 L Sodium Potassium Carbon Dioxide BUN Creatinine Glucose POC Glucose 106 H 106 H Calcium Magnesium AST ALT Ammonia Total Creatine Kinase Troponin T C-Reactive Protein NT-Pro-B Natriuret Pep Albumin Triglycerides HDL Cholesterol Arterial Blood Glucose Urine WBC (Auto) Urine Creatinine Salicylates Acetaminophen 06/04/21 06/04/21 06/04/21 05:15 05:15 05:37 WBC RBC 3.27 L Hgb 9.7 L Hct 31.6 L MCV 97 H MCHC 31 L RDW 19.3 H Plt Count Lymph % (Auto) [place] % (Auto) Lymph # (Auto) [place] # (Auto) Seg Neutrophils % Seg Neuts % (Manual) Lymphocytes % (Manual) Seg Neutrophils # Seg Neutrophils # Man Lymphocytes # (Manual) PT INR APTT D-Dimer ABG pH POC ABG pCO2 POC ABG pO2 ABG pO2 ABG HCO3 ABG O2 Saturation ABG Base Excess ABG Hemoglobin ABG Oxyhemoglobin ABG Sodium ABG Potassium ABG Chloride ABG Glucose Oxyhemoglobin Sodium Potassium Carbon Dioxide 21 L BUN 60 H Creatinine 1.7 H Glucose 106 H POC Glucose 115 H Calcium Magnesium AST ALT Ammonia Total Creatine Kinase Troponin T C-Reactive Protein NT-Pro-B Natriuret Pep Albumin 2.7 L Triglycerides HDL Cholesterol Arterial Blood Glucose Urine WBC (Auto) Urine Creatinine Salicylates Acetaminophen Chest x-ray: image reviewed (cardiomegaly; right hemidiaphragm elevation and basilar atelectasis / infiltrates) Allied health notes reviewed: nursing
--- NOTE | 2021-06-04 13:47 | Consultation ---
History of Present Illness - Reason for Consult Consult date: 06/04/21 - History of Present Illness 41-year-old past medical history obesity presented the hospital medical history of severe respiratory distress. He was found to be altered mental status on admission. He has been intubated since admission, and was found to have elevated D-dimer as well as troponin. We are consulted due to positive blood cultures for coag negative staph. Febrile to 102 with a white count of 7.5. Covid negative. Improving renal function. Blood cultures from 05/23/2021 with 1 bottle coag negative staph, repeat blood cultures no growth so far. Imaging personally reviewed: Chest x-ray: Stable bibasilar opacities Past History Past Medical History: hypertension, other (REVA, obesity) Past Surgical History: No surgical history Social history: no significant social history Family history: no significant family history Medications and Allergies Allergies Allergy/AdvReac Type Severity Reaction Status Date / Time No Known Allergies Allergy Unverified 05/25/21 12:48 Home Medications Medication Instructions Recorded Confirmed Last Taken Type Amoxicillin [Amoxicillin TAB] 875 mg PO BID #20 tablet 11/12/14 05/29/21 Unknown Rx Apixaban 2.5 mg PO BID 05/29/21 05/29/21 Unknown History Cholecalciferol (Vitamin D3) 3 mg PO 1XW 05/29/21 05/29/21 Unknown History Metoprolol 150 mg PO BID 05/29/21 05/29/21 Unknown History Torsemide 80 mg PO DAILY 05/29/21 05/29/21 Unknown History Active Meds: Active Medications Acetaminophen (Acetaminophen 325 Mg Tab) 650 mg PO Q4H PRN PRN Reason: Pain MILD(1-3)/Fever >100.5/CASTORENA Last Admin: 06/04/21 10:10 Dose: 650 mg Documented by: Albuterol (Albuterol 2.5 Mg/3 Ml Nebu) 2.5 mg IH Q4HRT PRN PRN Reason: Shortness Of Breath Albuterol/Ipratropium (Ipratropium/Albuterol Sulfate 3 Ml Ampul.Neb) 1 ampul IH TIDRT ROSEMARIE Last Admin: 06/04/21 08:39 Dose: 1 ampul Documented by: Lipase/Protease/Amylase (Lipase 10,500/Protease 25,000/Amylase 43,750 (Units) Dr Cap) 1 each FEEDTUBE PRN PRN PRN Reason: For Clogged Feeding Tube Apixaban (Apixaban 2.5 Mg Tab) 2.5 mg PO Q12HR ROSEMARIE; Protocol Last Admin: 06/04/21 10:10 Dose: 2.5 mg Documented by: Famotidine (Famotidine 20 Mg Tab) 20 mg FEEDTUBE BID ROSEMARIE Last Admin: 06/04/21 10:10 Dose: 20 mg Documented by: Fentanyl (Fentanyl 100 Mcg/2 Ml Inj) 50 mcg IV Q10MIN PRN PRN Reason: ANALGESIA Last Admin: 05/31/21 10:20 Dose: 50 mcg Documented by: Hydrophilic Ointment (Lip Therapy Vaseline) 1 applic TP Q2HR PRN PRN Reason: Dry Lips Fentanyl Citrate (Fentanyl Drip Premix) 2,000 mcg in 100 mls @ 8.528 mls/hr IV TITR ROSEMARIE; Protocol Last Titration: 06/04/21 10:10 Dose: Infused Documented by: NORepinephrine/NS 8 MG-250 ML (Norepinephrine/Ns 8 Mg-250 Ml (Double Conc)) 8 mg in 250 mls @ 3.75 mls/hr IV TITRATE ROSEMARIE; Protocol Last Titration: 06/04/21 05:07 Dose: 0 mcg/min, 0 mls/hr Documented by: Sodium Chloride (Nacl 0.9% 1000 Ml) 1,000 mls @ 75 mls/hr IV DIRECT ROSEMARIE Stop: 06/06/21 01:19 Last Admin: 06/04/21 11:43 Dose: 75 mls/hr Documented by: Multi-Ingred Cream/Lotion/Oil/Oint (Mineral Oil/Petrolatum, White Ophth Oint 3.5 Gm) 1 applic OU Q4HR PRN PRN Reason: Dry Eye(s) Last Admin: 05/30/21 22:14 Dose: 1 applic Documented by: Ondansetron HCl (Ondansetron 4 Mg/2 Ml Inj) 4 mg IV Q8H PRN PRN Reason: Nausea And Vomiting Quetiapine Fumarate (Quetiapine 100 Mg Tab) 100 mg PO BID ROSEMARIE Last Admin: 06/04/21 10:10 Dose: 100 mg Documented by: Senna/Docusate Sodium (Sennosides/Docusate Sodium 8.6/50 Mg Tab) 1 tab FEEDTUBE BID ROSEMARIE Last Admin: 06/04/21 10:10 Dose: 1 tab Documented by: Simple Syrup (Simple Syrup 15 Ml) 15 ml FEEDTUBE PRN PRN PRN Reason: Hypoglycemia Simple Syrup (Simple Syrup 15 Ml) 30 ml FEEDTUBE PRN PRN PRN Reason: Hypoglycemia Sodium Bicarbonate (Sodium Bicarbonate 325 Mg Tab) 325 mg FEEDTUBE PRN PRN PRN Reason: For Clogged Feeding Tube Sodium Chloride (Sodium Chloride 0.9% 10 Ml Flush Syringe) 10 ml IV BID [facility] Last Admin: 06/04/21 10:09 Dose: 10 ml Documented by: Sodium Chloride (Sodium Chloride 0.9% 10 Ml Flush Syringe) 10 ml IV PRN PRN PRN Reason: LINE FLUSH Review of Systems ROS unobtainable: due to endotracheal tube Physical Examination - Physical Exam Narrative exam: Physical Exam: Constitutional: Intubated, sedated Head, Ears, Nose: Normocephalic, atraumatic. External ears, nose normal Eyes: Conjunctivae/corneas clear. No icterus. No ptosis. Neck: Intubated Oral: Intubated Cardiovascular: S1, S2 normal. Respiratory: Good air entry, clear to auscultation bilaterally GI: Soft, non-tender; bowel sounds normal. No peritoneal signs. Musculoskeletal: No pedal edema, no cyanosis. Skin: No rash or abscess Hem/Lymphatic: No palpable cervical or supraclavicular nodes. No lymphangitis Psych: No agitation Neurological: No agitation - Constitutional Vitals: Vital Signs Temp Pulse Resp BP Pulse Ox 101.7 F H 131 H 29 H 119/48 91 06/04/21 12:00 06/04/21 11:57 06/04/21 11:01 06/04/21 11:57 06/04/21 11:57 Temperature -Last 24 Hours Temperature 101.7 F Temperature 102 F Temperature 101.7 F Temperature 101.7 F Temperature 101.4 F Temperature 101.5 F Temperature 101.1 F Temperature 101.1 F Temperature 98.4 F Results - Labs CBC & Chem 7: 06/04/21 05:15 06/04/21 05:15 Labs: Abnormal lab results 06/03/21 06/03/21 06/04/21 Range/Units 06:55 23:30 05:00 RBC (3.65-5.03) M/mm3 Hgb (11.8-15.2) gm/dl Hct (35.5-45.6) % MCV (84-94) fl MCHC (32-34) % RDW (13.2-15.2) % ABG pH 7.298 L 7.293 L (7.320-7.450) POC ABG pO2 67.4 L (83-108) mmHg ABG pO2 69.1 L (80.0-90.0) mm Hg ABG O2 Saturation 92.3 L (95.0-99.0) % ABG Base Excess -4.0 L (-2.0-3.0) mmol/L ABG Hemoglobin 11.7 L 8.9 L (12.0-17.5) ABG Oxyhemoglobin 91.2 L (94-98) ABG Sodium 134.3 L (136.0-145.0) mmol/L ABG Potassium 4.7 H (3.40-4.50) mmol/L ABG Chloride 108.0 H (98-107) mmol/L ABG Glucose 110 H (65-95) mg/dL Oxyhemoglobin 90.3 L (95.0-99.0) % Carbon Dioxide (22-30) mmol/L BUN (9-20) mg/dL Creatinine (0.8-1.3) mg/dL Glucose (75-100) mg/dL POC Glucose 106 H (70-105) mg/dL Albumin (3.9-5) g/dL Arterial Blood Glucose 110 H (65-95) mg/dL 06/04/21 06/04/21 06/04/21 Range/Units 05:15 05:15 05:37 RBC 3.27 L (3.65-5.03) M/mm3 Hgb 9.7 L (11.8-15.2) gm/dl Hct 31.6 L (35.5-45.6) % MCV 97 H (84-94) fl MCHC 31 L (32-34) % RDW 19.3 H (13.2-15.2) % ABG pH (7.320-7.450) POC ABG pO2 (83-108) mmHg ABG pO2 (80.0-90.0) mm Hg ABG O2 Saturation (95.0-99.0) % ABG Base Excess (-2.0-3.0) mmol/L ABG Hemoglobin (12.0-17.5) ABG Oxyhemoglobin (94-98) ABG Sodium (136.0-145.0) mmol/L ABG Potassium (3.40-4.50) mmol/L ABG Chloride (98-107) mmol/L ABG Glucose (65-95) mg/dL Oxyhemoglobin (95.0-99.0) % Carbon Dioxide 21 L (22-30) mmol/L BUN 60 H (9-20) mg/dL Creatinine 1.7 H (0.8-1.3) mg/dL Glucose 106 H (75-100) mg/dL POC Glucose 115 H (70-105) mg/dL Albumin 2.7 L (3.9-5) g/dL Arterial Blood Glucose (65-95) mg/dL Assessment and Plan Cultures: Blood culture 06/02/2021 no growth so far Blood culture 05/23/2021 1 bottle coag negative staph Urine culture 05/23/2021 no growth A/P: 41-year-old man past medical history obesity presented to hospital in respiratory failure. #Acute hypoxic respiratory failure: Covid negative. Currently on the vent. #New onset fevers: Unclear etiology, chest x-ray without acute change, procalcitonin approximately the same as previous. #FERMIN: renally dose medications. Improving. Recs: -Start vancomycin dosed per pharmacy goal trough 10-20. -Start renally dosed cefepime -Obtain tracheal aspirate cultures -Obtain UA with reflex to culture. Thank you for the consult, we will continue to follow. Mere Cesar MD [facility] ([facility] O: [phone] F: [phone]
[2021-06-04 13:56] LABS: Amorphous Crystals,Urine 3+; Bilirubin,Urine NEG (Negative); Blood,Urine MOD (Negative); Color,Urine Yellow (Yellow); Mucus,Urine FEW /HPF
[2021-06-04 13:57] LABS: RBC,Urine > 182.0 /HPF (0.0-6.0)
[2021-06-04 14:14] LABS: Creatinine,Urine 79.3 mg/dL (0.1-20.0); Protein/Creatinine Ratio,Urine 1.01
--- NOTE | 2021-06-04 14:20 | Progress Note ---
Assessment and Plan - Patient Problems (1) Acute respiratory failure Current Visit: Yes Status: Acute Plan to address problem: Continue supportive management, stable cardiovascular status. Subjective Date of service: 06/04/21 Principal diagnosis: Acute hypoxemic and hypercapnic resp failure; PUI COVID-19; Pneumonia; FERMIN Interval history: Patient is unresponsive, on the vent. No cardiac complaints reported. Objective Vital Signs Temp Pulse Pulse Pulse Resp Resp BP 06/04/21 12:00 101.7 F H 06/04/21 11:57 131 H 119/48 06/04/21 11:01 139 H 29 H 135/63 06/04/21 10:46 143 H 32 H 144/73 06/04/21 10:30 43 H 130/63 06/04/21 10:15 122 H 26 H 119/58 06/04/21 10:00 120 H 25 H 115/52 06/04/21 09:45 122 H 24 125/53 06/04/21 09:30 120 H 24 113/52 06/04/21 09:15 121 H 25 H 116/52 06/04/21 09:00 121 H 120 H 25 H 25 H 115/50 06/04/21 08:45 124 H 25 H 122/55 06/04/21 08:34 122 H 120/51 06/04/21 08:30 121 H 25 H 120/51 06/04/21 08:15 123 H 23 123/57 06/04/21 08:00 102 F H 124 H 123 H 25 H 123/55 06/04/21 07:45 130 H 25 H 123/63 06/04/21 07:30 122 H 25 H 111/48 06/04/21 07:15 123 H 23 119/52 06/04/21 07:00 122 H 23 120/51 06/04/21 06:45 125 H 25 H 117/47 06/04/21 06:30 128 H 25 H 121/50 06/04/21 06:15 132 H 24 123/53 06/04/21 06:00 132 H 25 H 125/52 06/04/21 05:45 133 H 22 121/55 06/04/21 05:30 138 H 23 124/58 06/04/21 05:15 135 H 26 H 125/58 06/04/21 05:11 101.7 F H 06/04/21 05:00 140 H 25 H 128/57 06/04/21 04:55 142 H 129/65 06/04/21 04:45 137 H 24 129/65 06/04/21 04:30 137 H 29 H 139/69 06/04/21 04:23 101.7 F H 06/04/21 04:15 125 H 23 121/63 06/04/21 04:00 122 H 24 143/79 06/04/21 03:45 110 H 24 104/49 06/04/21 03:30 113 H 22 90/34 06/04/21 03:28 101.4 F H 06/04/21 03:15 118 H 13 108/36 06/04/21 03:00 123 H 20 102/40 06/04/21 02:45 120 H 16 105/40 06/04/21 02:30 119 H 21 105/41 06/04/21 02:15 135 H 25 H 102/55 06/04/21 02:00 108 H 26 H 92/34 06/04/21 01:45 105 H 24 97/44 06/04/21 01:30 106 H 25 H 96/45 06/04/21 01:15 105 H 25 H 97/46 06/04/21 01:00 105 H 25 H 95/46 06/04/21 00:45 105 H 25 H 95/45 06/04/21 00:43 106 H 96/46 06/04/21 00:30 107 H 24 96/46 06/04/21 00:15 109 H 26 H 96/45 06/04/21 00:00 101.5 F H 107 H 25 H 97/42 06/03/21 23:45 110 H 21 100/45 06/03/21 23:30 116 H 21 101/42 06/03/21 23:15 112 H 24 97/40 06/03/21 23:00 116 H 25 H 100/41 06/03/21 22:45 119 H 24 102/39 06/03/21 22:30 121 H 24 104/41 06/03/21 22:15 122 H 24 109/40 06/03/21 22:02 124 H 21 113/41 06/03/21 22:00 123 H 23 113/41 06/03/21 21:45 131 H 24 112/42 06/03/21 21:30 127 H 21 113/42 06/03/21 21:15 130 H 24 108/37 06/03/21 21:00 134 H 24 112/39 06/03/21 20:45 140 H 25 H 144/76 06/03/21 20:42 134 H 139 H 25 H 144/76 06/03/21 20:30 140 H 25 H 144/76 06/03/21 20:15 127 H 40 H 127/60 06/03/21 20:00 101.1 F H 128 H 33 H 133/69 06/03/21 19:45 122 H 39 H 118/49 06/03/21 19:30 134 H 25 H 113/47 06/03/21 19:17 101.1 F H 06/03/21 19:15 119 H 24 110/46 06/03/21 19:00 147 H 12 116/52 06/03/21 18:45 125 H 22 116/52 06/03/21 18:30 127 H 13 117/54 06/03/21 18:15 129 H 26 H 120/57 06/03/21 18:00 37 H 124/59 06/03/21 17:45 130 H 24 132/59 06/03/21 17:30 140 H 18 148/80 06/03/21 17:15 128 H 19 130/58 06/03/21 17:00 135 H 26 H 135/66 06/03/21 16:45 127 H 22 122/57 06/03/21 16:30 133 H 15 128/59 06/03/21 16:15 123 H 20 115/50 06/03/21 16:00 98.4 F 126 H 26 H 120/55 06/03/21 15:51 133 H 119/55 06/03/21 15:45 125 H 21 119/55 06/03/21 15:30 125 H 25 H 114/50 06/03/21 15:15 125 H 26 H 118/52 06/03/21 15:00 124 H 25 H 115/49 06/03/21 14:45 128 H 21 112/52 06/03/21 14:30 24 111/47 Pulse Ox 06/04/21 12:00 06/04/21 11:57 91 06/04/21 11:01 91 06/04/21 10:46 91 06/04/21 10:30 93 06/04/21 10:15 92 06/04/21 10:00 93 06/04/21 09:45 94 06/04/21 09:30 93 06/04/21 09:15 94 06/04/21 09:00 94 06/04/21 08:45 92 06/04/21 08:34 91 06/04/21 08:30 92 06/04/21 08:15 91 06/04/21 08:00 90 06/04/21 07:45 90 06/04/21 07:30 93 06/04/21 07:15 91 06/04/21 07:00 91 06/04/21 06:45 92 06/04/21 06:30 91 06/04/21 06:15 92 06/04/21 06:00 91 06/04/21 05:45 91 06/04/21 05:30 91 06/04/21 05:15 91 06/04/21 05:11 06/04/21 05:00 92 06/04/21 04:55 92 06/04/21 04:45 94 06/04/21 04:30 90 06/04/21 04:23 06/04/21 04:15 91 06/04/21 04:00 94 06/04/21 03:45 96 06/04/21 03:30 96 06/04/21 03:28 06/04/21 03:15 97 06/04/21 03:00 96 06/04/21 02:45 96 06/04/21 02:30 96 06/04/21 02:15 98 06/04/21 02:00 98 06/04/21 01:45 98 06/04/21 01:30 97 06/04/21 01:15 97 06/04/21 01:00 97 06/04/21 00:45 97 06/04/21 00:43 96 06/04/21 00:30 96 06/04/21 00:15 95 06/04/21 00:00 94 06/03/21 23:45 95 06/03/21 23:30 95 06/03/21 23:15 95 06/03/21 23:00 95 06/03/21 22:45 94 06/03/21 22:30 93 06/03/21 22:15 93 06/03/21 22:02 93 06/03/21 22:00 92 06/03/21 21:45 92 06/03/21 21:30 91 06/03/21 21:15 90 06/03/21 21:00 89 06/03/21 20:45 93 06/03/21 20:42 93 06/03/21 20:30 93 06/03/21 20:15 92 06/03/21 20:00 96 06/03/21 19:45 96 06/03/21 19:30 95 06/03/21 19:17 06/03/21 19:15 95 06/03/21 19:00 94 06/03/21 18:45 95 06/03/21 18:30 95 06/03/21 18:15 95 06/03/21 18:00 95 06/03/21 17:45 96 06/03/21 17:30 94 06/03/21 17:15 96 06/03/21 17:00 95 06/03/21 16:45 92 06/03/21 16:30 92 06/03/21 16:15 90 06/03/21 16:00 90 06/03/21 15:51 93 06/03/21 15:45 93 06/03/21 15:30 91 06/03/21 15:15 93 06/03/21 15:00 91 06/03/21 14:45 93 06/03/21 14:30 93 - Physical Examination General: Other (Sedated on mechanical ventilator) HEENT: Positive: Normocephaly Neck: Positive: neck supple. Negative: JVD/HJR Cardiac: Positive: Reg Rate and Rhythm Lungs: Positive: Decreased Breath Sounds Neuro: Positive: Other (Unresponsive, on the vent) Abdomen: Positive: Soft Skin: Positive: Clear Extremities: Present: +1 Edema - Labs and Meds Cardiac Enzymes 06/04/21 Range/Units 05:15 AST 17 (5-40) units/L CBC 06/04/21 Range/Units 05:15 WBC 7.5 (4.5-11.0) K/mm3 RBC 3.27 L (3.65-5.03) M/mm3 Hgb 9.7 L (11.8-15.2) gm/dl Hct 31.6 L (35.5-45.6) % Plt Count 176 (140-440) K/mm3 Comprehensive Metabolic Panel 06/04/21 Range/Units 05:15 Sodium 139 (137-145) mmol/L Potassium 4.7 (3.6-5.0) mmol/L Chloride 106.4 (98-107) mmol/L Carbon Dioxide 21 L (22-30) mmol/L BUN 60 H (9-20) mg/dL Creatinine 1.7 H (0.8-1.3) mg/dL Glucose 106 H (75-100) mg/dL Calcium 8.9 (8.4-10.2) mg/dL AST 17 (5-40) units/L ALT 44 (7-56) units/L Alkaline Phosphatase 74 (35-129) units/L Total Protein 6.8 (6.3-8.2) g/dL Albumin 2.7 L (3.9-5) g/dL - Imaging and Cardiology EKG: report reviewed (Sinus tachycardia no acute ST-T wave changes) - Allied health notes Allied health notes reviewed: nursing
[2021-06-04 14:44] LABS: Hematocrit 29.5 % (35.5-45.6); Hemoglobin 8.9 gm/dl (11.8-15.2); Mean Corpuscular HGB Conc 30 % (32-34); Mean Corpuscular Volume 96 fl (84-94); Platelet Count 175 K/mm3 (140-440); Red Blood Count 3.07 M/mm3 (3.65-5.03); Red Cell Distribution Width 19.4 % (13.2-15.2)
[2021-06-04] MEDS ORDERED: VANCOMYCIN PHARMACY TO DOSE IV SCH (15:00)
[2021-06-04 15:02] LABS: Calcium 8.5 mg/dL (8.4-10.2)
[2021-06-04] MEDS: CEFEPIME/NS 2 GM/100 ML 2 GM/100 ML BAG IV SCH (15:46)
--- NOTE | 2021-06-04 15:47 | Progress Note ---
Assessment and Plan Assessment and plan: This is a 41-year-old male with past medical history of HTN, REVA and morbid obesity who presented to the ER with severe respiratory distress and eventually was intubated for acute respiratory failure secondatory to possible pneumonia vs pulmonary edema. Patient was also found to have an FERMIN. Patient remains intubated and in the ICU for further management. Hospital Course to Date: 05/24/2021: Patient intubated and sedated. VQ scan ordered secondary to elevated D-dimer. Cardiology consulted secondary to elevated troponin and elevated BNP. Echocardiogram ordered and pending. 05/25/2021: Patient still intubated. Responsive to commands. Hypotensive, norepinephrine increased to 15mcg. Unable to get V/Q scan due to body habitus. 05/26: Overnight patient experienced desaturation to the 80s and FiO2 was increased. This morning on ABG patient exhibited hypoxemia and FiO2 was unchanged. [facility] later increased PEEP and decrease FiO2. Nephrology was consulted due to no recovery in renal function noted. Urine lites were ordered. Hyperkalemia treated medically. 05/27: Patient remains sedated on fentanyl and propofol, [facility] will taper Solu- Medrol and repeat ABG in 1899. Patient received 40 mg of Lasix x1. Slight improvement to renal function noted 05/28: [facility] has started revatio for pulmonary hypertension, we will repeat Lasix today as patient had improvement in renal function. No acute events reported overnight. 05/29: 1900 ABG with improved hypoxia, good UOP noted from lasix. Repeat labs for am. no acute events reported overnight 05/30: FWF decreased. Garcia catheter replaced due to sediment. Family updated today at bedside. 05/31: noted to have persistent tachycardia, given fent bolus without improvement. EKG showed ST, passive leg raise by RN showed decrease in tachycardia therefore given LR. Noted increase in Cr today. MIVF for 2 liters started by [facility]. 06/01/21- Remains intubated, sedation was increased this am due to agitation, Levo was initiated due to hypotension. Patient remains on IVF, D/C once current bag is completed. D/w CCM plan to gently wean vent setting for SPO2 goal above 92%. 06/02/21- Patient remains on the vent, on max support this am. Per RN patient desated this am after he was turned, SPO2 was sustaining in the low 80s. Patient is also spiking temp, TMAX 101 this am, WBC wnl. Orders placed for stat CXR, blood cultureX2, and procal. Will hold off on AbX for now. Will continue to trend CBC, am labs ordered 06/03/21- Patient remains on the vent and sedated. High triglyceride level this am, propofol stopped and seroquel added BID. No fever overnight, wbcs remains stable, pending B.cult result. Continue to trend CBC 06/04/21- Patient remains on the vent, no longer on sedation. Easily arousable, follow commands at time. Persistent fever, wbcs remains stable, B.cultX2 pending, procal normal, ID consulted. Assessment and Plan #Neuro: Acute metabolic encephalopathy -CT head and C-spine negative for acute process -TSH WNL -Elevated triglyceride 830, propofol D/C -Seroquel added BID -Patient off sedation -Avoid delirium -Reorientation as needed -Maintain sleep-wake cycle #CV:Hypotension #Possible CHF #h/o HTN -Cardiology consulted, appreciate recommendations -05/24 echocardiogram showed mild to moderate dilated right heart chambers, LVEF 55% -ProBNP 55457 -Diuretic on hold due to worsen kidney function -Cardiology recommends conservative cardiac management -Maintain adequate perfusion -Continue rehydration with cont. IVF -Off pressors -maintain MAP above 65 -Continue AC- Eliquis #Acute hypoxemic and hypercapnic respiratory failure/ARDS #H/o sleep apnea -Patient intubated on 05/23 -vent settings:PRVC- 90%,12,25,450 -AM ABG noted -CCM consulted, appreciate recommendations -Continue IV Steroids and Nebs per CCM -VAP bundle addressed -Aspiration precaution HOB above 30 -Daily SBT and SAT trials as tolerated -Daily ABG and CXR -Continue SPO2 monitoring for SPO2 goal above 92% #GI: Transaminitis- improved #morbid obesity -NTR consult for tube feedings -Continue enteral nutrition -Continue BR- senokot -Continue PPI- Pepcid -Trend LFTs #: Acute renal failure secondary to vasomotor nephropathy -Initial ProBNP was 10019, was diuresed, now on hold -FENa 0.41% indicating prerenal -Nephrology consulted, appreciate recommendations -Garcia catheter for strict intake and output -Avoid nephrotoxic medications -Renally dose medications -Continue IVF for now -Continue to monitor renal function and electrolytes, replete as needed #Heme: Elevated D-dimer, h/o PE/DVT -VQ scan unable to be performed due to patient being intubated -CTA head unable to be performed due to renal function and size -restarted on home eliquis -SCDs to bilateral lower extremity while in bed -Echocardiogram shows no right heart strain -Trend CBC -Transfuse for hemoglobin less than 7 -Bilateral lower extremity Doppler ultrasound negative for DVT #ID: CAP #leukopenia- improved #coag negative Staphylococcus in blood culture 07/26 -CT showed right upper lobe pneumonia -05/23 UC, tracheal aspirate no growth to date -05/23 blood culture with coag negative staph in 1 of 2 bottles -Persistent fever, WBCs wnl -ID consulted -Completed IV abx course- cefepime and azithromycin -Daily CBC monitor #Endo: Glycemic control -Accu-Cheks every 6 while on tube feedings -SSI if hyperglycemic -Avoid hypoglycemia -Target blood glucose while critically ill less than 180 The high probability of a clinically significant, sudden or life threatening deterioration of the [Neuro,CV,pulm] system(s) required my full and direct attention, intervention and personal management. The aggregate critical care time was [60] minutes. This time is in addition to time spent performing reported procedures but includes the following: [x] Data Review and interpretation [x] Patient assessment and monitoring of vital signs [x] Documentation [x] Medication orders and management Disposition Plan: ICU Total Time Spent with Patient (Minutes): 60 History Interval history: Patient seen and examined at the bedside. Patient remains on the vent, no longer on sedation. Easily arousable, follow commands at time. Persistent fevers overnight, per RN patient was restarted on levophed overnight due to low BP. Pressors are off this am Hospitalist Physical - Constitutional Vitals: Temp Pulse Resp BP Pulse Ox 101.7 F H 124 H 24 128/56 94 06/04/21 12:00 06/04/21 14:30 06/04/21 14:30 06/04/21 14:30 06/04/21 14:30 General appearance: Present: no acute distress, obese, other (Intubated) - EENT Eyes: Present: PERRL - Respiratory Respiratory effort: normal Respiratory: bilateral: wheezing - Cardiovascular Rhythm: regular Heart Sounds: Present: S1 & S2 - Extremities Extremities: no ischemia, pulses intact, pulses symmetrical Extremity abnormal: edema - Peripheral Assessment Generalized Edema Type: Non-pitting Edema Degree: 2+ Capillary Refill: < 3 seconds Skin Temperature: Warm Peripheral Pulses: within normal limits - Abdominal General gastrointestinal: soft, non-tender, normal bowel sounds - Integumentary Integumentary: Present: warm, dry - Psychiatric Psychiatric: other (Intubated) - Neurologic Neurologic: other (Intubated) HEART Score - HEART Score Troponin: Troponin T 0.038 ng/mL (0.00-0.029) H 05/23/21 15:09 Results - Labs CBC & Chem 7: 06/04/21 13:54 06/04/21 13:56 Labs: Laboratory Last Values WBC 8.0 K/mm3 (4.5-11.0) 06/04/21 13:54 RBC 3.07 M/mm3 (3.65-5.03) L 06/04/21 13:54 Hgb 8.9 gm/dl (11.8-15.2) L 06/04/21 13:54 Hct 29.5 % (35.5-45.6) L 06/04/21 13:54 MCV 96 fl (84-94) H 06/04/21 13:54 MCH 29 pg (28-32) 06/04/21 13:54 MCHC 30 % (32-34) L 06/04/21 13:54 RDW 19.4 % (13.2-15.2) H 06/04/21 13:54 Plt Count 175 K/mm3 (140-440) 06/04/21 13:54 Lymph % (Auto) 6.2 % (13.4-35.0) L 06/03/21 04:10 [place] % (Auto) 13.1 % (0.0-7.3) H 06/03/21 04:10 Eos % (Auto) 3.2 % (0.0-4.3) 06/03/21 04:10 Baso % (Auto) 0.4 % (0.0-1.8) 06/03/21 04:10 Lymph # (Auto) 0.5 K/mm3 (1.2-5.4) L 06/03/21 04:10 [place] # (Auto) 1.1 K/mm3 (0.0-0.8) H 06/03/21 04:10 Eos # (Auto) 0.3 K/mm3 (0.0-0.4) 06/03/21 04:10 Baso # (Auto) 0.0 K/mm3 (0.0-0.1) 06/03/21 04:10 Add Manual Diff Complete 05/24/21 04:55 Total Counted 100 05/24/21 04:55 Seg Neutrophils % Senior [employer] Payable Specialist 06/03/21 04:10 Seg Neuts % (Manual) 97.0 % (40.0-70.0) H 05/24/21 04:55 Lymphocytes % (Manual) 3.0 % (13.4-35.0) L 05/24/21 04:55 Nucleated RBC % Not Reportable 05/24/21 04:55 Seg Neutrophils # 6.2 K/mm3 (1.8-7.7) 06/03/21 04:10 Seg Neutrophils # Man 8.4 K/mm3 (1.8-7.7) H 05/24/21 04:55 Band Neutrophils # 0.0 K/mm3 05/24/21 04:55 Lymphocytes # (Manual) 0.3 K/mm3 (1.2-5.4) L 05/24/21 04:55 Abs React Lymphs (Man) 0.0 K/mm3 05/24/21 04:55 Monocytes # (Manual) 0.0 K/mm3 (0.0-0.8) 05/24/21 04:55 Eosinophils # (Manual) 0.0 K/mm3 (0.0-0.4) 05/24/21 04:55 Basophils # (Manual) 0.0 K/mm3 (0.0-0.1) 05/24/21 04:55 Metamyelocytes # 0.0 K/mm3 05/24/21 04:55 Myelocytes # 0.0 K/mm3 05/24/21 04:55 Promyelocytes # 0.0 K/mm3 05/24/21 04:55 Blast Cells # 0.0 K/mm3 05/24/21 04:55 WBC Morphology Not Reportable 05/24/21 04:55 Hypersegmented Neuts Not Reportable 05/24/21 04:55 Hyposegmented Neuts Not Reportable 05/24/21 04:55 Hypogranular Neuts Not Reportable 05/24/21 04:55 Smudge Cells Not Reportable 05/24/21 04:55 Toxic Granulation Not Reportable 05/24/21 04:55 Toxic Vacuolation Not Reportable 05/24/21 04:55 Dohle Bodies Not Reportable 05/24/21 04:55 Pelger-Huet Anomaly Not Reportable 05/24/21 04:55 Cynthia Rods Not Reportable 05/24/21 04:55 Platelet Estimate Consistent w auto 05/24/21 04:55 Clumped Platelets Not Reportable 05/24/21 04:55 Plt Clumps, EDTA Not Reportable 05/24/21 04:55 Large Platelets Not Reportable 05/24/21 04:55 Giant Platelets Not Reportable 05/24/21 04:55 Platelet Satelliting Not Reportable 05/24/21 04:55 Plt Morphology Comment Not Reportable 05/24/21 04:55 RBC Morphology Not Reportable 05/24/21 04:55 Dimorphic RBCs Not Reportable 05/24/21 04:55 Polychromasia Not Reportable 05/24/21 04:55 Hypochromasia Not Reportable 05/24/21 04:55 Poikilocytosis Not Reportable 05/24/21 04:55 Anisocytosis 1+ 05/24/21 04:55 Microcytosis Not Reportable 05/24/21 04:55 Macrocytosis Not Reportable 05/24/21 04:55 Spherocytes Not Reportable 05/24/21 04:55 Pappenheimer Bodies Not Reportable 05/24/21 04:55 Sickle Cells Not Reportable 05/24/21 04:55 Target Cells Not Reportable 05/24/21 04:55 Tear Drop Cells Not Reportable 05/24/21 04:55 Ovalocytes Not Reportable 05/24/21 04:55 Helmet Cells Not Reportable 05/24/21 04:55 James-Paint Bodies Not Reportable 05/24/21 04:55 Menard Rings Not Reportable 05/24/21 04:55 [place] Cells Not Reportable 05/24/21 04:55 Bite Cells Not Reportable 05/24/21 04:55 Crenated Cell Not Reportable 05/24/21 04:55 Elliptocytes Not Reportable 05/24/21 04:55 Acanthocytes (Spur) Not Reportable 05/24/21 04:55 Rouleaux Not Reportable 05/24/21 04:55 Hemoglobin C Crystals Not Reportable 05/24/21 04:55 Schistocytes Not Reportable 05/24/21 04:55 Malaria parasites Not Reportable 05/24/21 04:55 Uli Bodies Not Reportable 05/24/21 04:55 Hem Pathologist Commnt No 05/24/21 04:55 PT 15.3 Sec. (12.2-14.9) H 05/29/21 13:40 INR 1.09 (0.87-1.13) 05/29/21 13:40 APTT 25.7 Sec. (24.2-36.6) 05/29/21 13:40 D-Dimer 4444.85 ng/mlDDU (0-234) H 05/23/21 15:09 ABG pH 7.293 pH Units (7.350-7.450) L 06/04/21 05:00 POC ABG pCO2 47.3 mmHg (32.0-48.0) 06/03/21 06:55 ABG pCO2 47.3 mm Hg 06/04/21 05:00 POC ABG pO2 67.4 mmHg (83-108) L 06/03/21 06:55 ABG pO2 69.1 mm Hg (80.0-90.0) L 06/04/21 05:00 POC ABG HCO3 22.6 06/03/21 06:55 ABG HCO3 22.4 mmol/L (20.0-26.0) 06/04/21 05:00 ABG O2 Saturation 92.3 % (95.0-99.0) L 06/04/21 05:00 ABG O2 Content 11.4 (0.0-44) 06/04/21 05:00 POC ABG Base Excess -3.9 06/03/21 06:55 ABG Base Excess -4.0 mmol/L (-2.0-3.0) L 06/04/21 05:00 ABG Hemoglobin 8.9 gm/dl (14.0-18.0) L 06/04/21 05:00 ABG Oxyhemoglobin 91.2 (94-98) L 06/03/21 06:55 ABG Carboxyhemoglobin 1.7 % (0.0-5.0) 06/04/21 05:00 ABG Methemoglobin 0.5 % (0.0-1.5) 06/04/21 05:00 ABG Sodium 134.3 mmol/L (136.0-145.0) L 06/03/21 06:55 ABG Potassium 4.7 mmol/L (3.40-4.50) H 06/03/21 06:55 ABG Chloride 108.0 mmol/L (98-107) H 06/03/21 06:55 ABG Glucose 110 mg/dL (65-95) H 06/03/21 06:55 Oxyhemoglobin 90.3 % (95.0-99.0) L 06/04/21 05:00 Carboxyhemoglobin 0.8 (0.5-1.5) 06/03/21 06:55 FiO2 90 % 06/04/21 05:00 FiO2 % 90.0 06/03/21 06:55 Sodium 142 mmol/L (137-145) 06/04/21 13:56 Potassium 4.7 mmol/L (3.6-5.0) 06/04/21 13:56 Chloride 108.8 mmol/L (98-107) H 06/04/21 13:56 Carbon Dioxide 21 mmol/L (22-30) L 06/04/21 13:56 Anion Gap 17 mmol/L 06/04/21 13:56 BUN 58 mg/dL (9-20) H 06/04/21 13:56 Creatinine 1.8 mg/dL (0.8-1.3) H 06/04/21 13:56 Estimated GFR 50 ml/min 06/04/21 13:56 BUN/Creatinine Ratio 32 % 06/04/21 13:56 Glucose 105 mg/dL (75-100) H 06/04/21 13:56 POC Glucose 97 mg/dL (70-105) 06/04/21 11:15 Lactic Acid 1.50 mmol/L (0.7-2.0) 05/23/21 15:09 Calcium 8.5 mg/dL (8.4-10.2) 06/04/21 13:56 Phosphorus 2.90 mg/dL (2.5-4.5) 05/28/21 05:30 Magnesium 2.40 mg/dL (1.7-2.3) H 05/28/21 05:30 Total Bilirubin 0.80 mg/dL (0.1-1.2) 06/04/21 05:15 AST 17 units/L (5-40) 06/04/21 05:15 ALT 44 units/L (7-56) 06/04/21 05:15 Alkaline Phosphatase 74 units/L (35-129) 06/04/21 05:15 Ammonia 30.0 umol/L (25-60) 05/24/21 04:55 Total Creatine Kinase 48 units/L (55-170) L 05/23/21 15:09 Troponin T 0.038 ng/mL (0.00-0.029) H 05/23/21 15:09 C-Reactive Protein 10.00 mg/dL (0.00-1.30) H 05/23/21 19:10 NT-Pro-B Natriuret Pep 36113 pg/mL (0-450) H 05/23/21 15:09 Total Protein 6.8 g/dL (6.3-8.2) 06/04/21 05:15 Albumin 2.7 g/dL (3.9-5) L 06/04/21 05:15 Albumin/Globulin Ratio 0.7 % 06/04/21 05:15 Triglycerides 830 mg/dL (2-149) H 06/03/21 04:10 Cholesterol 106 mg/dL (50-199) 05/23/21 15:09 LDL Cholesterol Direct 58 mg/dL (50-130) 05/23/21 15:09 HDL Cholesterol 29 mg/dL (40-59) L 05/23/21 15:09 Cholesterol/HDL Ratio 3.65 % 05/23/21 15:09 Procalcitonin 0.82 ng/mL (<0.15) 06/02/21 13:53 TSH 2.380 mlU/mL (0.270-4.200) 05/23/21 15:09 Arterial Blood Glucose 110 mg/dL (65-95) H 06/03/21 06:55 Arterial Blood Ionized Calcium 5.0 mg/dL (4.6-5.3) 06/03/21 06:55 Urine Color Yellow (Yellow) 06/04/21 13:39 Urine Turbidity Turbid (Clear) 06/04/21 13:39 Urine pH 5.0 (5.0-7.0) 06/04/21 13:39 Ur Specific [place] 1.015 (1.003-1.030) 06/04/21 13:39 Urine Protein 100 mg/dl mg/dL (Negative) 06/04/21 13:39 Urine Glucose (UA) Neg mg/dL (Negative) 06/04/21 13:39 Urine Ketones Neg mg/dL (Negative) 06/04/21 13:39 Urine Blood Mod (Negative) 06/04/21 13:39 Urine Nitrite Neg (Negative) 06/04/21 13:39 Urine Bilirubin Neg (Negative) 06/04/21 13:39 Urine Urobilinogen 2.0 mg/dL (<2.0) 06/04/21 13:39 Ur Leukocyte Esterase Neg (Negative) 06/04/21 13:39 Urine WBC (Auto) 17.0 /HPF (0.0-6.0) H 06/04/21 13:39 Urine RBC (Auto) > 182.0 /HPF (0.0-6.0) 06/04/21 13:39 U Epithel Cells (Auto) 7.0 /HPF (0-13.0) 06/04/21 13:39 Urine Bacteria (Auto) 1+ /HPF (Negative) 05/23/21 Unknown Amorphous Crystals 3+ 06/04/21 13:39 Urine Mucus Few /HPF 06/04/21 13:39 Ur Yeast w Hyphae Few /HPF 06/04/21 13:39 Urine Yeast (Budding) 3+ /HPF 06/04/21 13:39 Urine Osmolality 612 Mosm/kg 05/26/21 Unknown Urine Creatinine 128.6 mg/dL (0.1-20.0) H 05/26/21 Unknown Protein/Creatinin Ratio 1.01 05/26/21 12:37 Urine Sodium 37 mmol/L 05/26/21 Unknown Urine Potassium 45.15 mmol/L 05/26/21 Unknown Urine Urea Nitrogen 989 05/26/21 Unknown Urine Total Protein 80 mg/dL (5-11.8) H 05/26/21 12:37 Nasal Screen MRSA (PCR) Positive (Negative) 05/30/21 12:00 Salicylates < 0.3 mg/dL (2.8-20.0) L 05/23/21 15:09 Urine Opiates Screen Negative 05/23/21 Unknown Urine Methadone Screen Negative 05/23/21 Unknown Acetaminophen 5.0 ug/mL (10.0-30.0) L 05/23/21 15:09 Ur Barbiturates Screen Negative 05/23/21 Unknown Ur Phencyclidine Scrn Negative 05/23/21 Unknown Ur Amphetamines Screen Negative 05/23/21 Unknown U Benzodiazepines Scrn Negative 05/23/21 Unknown Urine Cocaine Screen Negative 05/23/21 Unknown U Marijuana (THC) Screen Negative 05/23/21 Unknown Drugs of Abuse Note Disclamer 05/23/21 Unknown Plasma/Serum Alcohol < 0.01 % (0-0.07) 05/23/21 15:09 Coronavirus (PCR) Negative (Negative) 05/23/21 Unknown Blood Type O POSITIVE 05/23/21 15:01 Antibody Screen Negative 05/23/21 15:01 Microbiology: Microbiology 06/02/21 13:53 Peripheral/Venous Blood Culture - Preliminary NO GROWTH AFTER 24 HOURS 06/02/21 13:54 Peripheral/Venous Blood Culture - Preliminary NO GROWTH AFTER 24 HOURS Garcia/IV: Voiding Method Indwelling Catheter Active Medications - Current Medications Current Medications: Generic Name Dose Route Start Last Admin Trade Name Freq PRN Reason Stop Dose Admin Acetaminophen 650 mg 05/23/21 20:42 06/04/21 10:10 Acetaminophen 325 Mg Tab PO 650 mg Q4H PRN Administration Pain MILD(1-3)/Fever >100.5/CASTORENA Albuterol 2.5 mg 05/23/21 21:11 Albuterol 2.5 Mg/3 Ml Nebu IH Q4HRT PRN Shortness Of Breath Albuterol/Ipratropium 1 ampul 05/29/21 08:00 06/04/21 14:15 Ipratropium/Albuterol Sulfate 3 Ml Ampul.Neb IH 1 ampul TIDRT ROSEMARIE Administration Lipase/Protease/Amylase 1 each 05/24/21 10:14 Lipase 10,500/Protease 25,000/Amylase 43,750 (Units) Dr Higgins FEEDTUBE PRN PRN For Clogged Feeding Tube Apixaban 2.5 mg 05/29/21 13:00 06/04/21 10:10 Apixaban 2.5 Mg Tab PO 2.5 mg Q12HR ROSEMARIE Administration Protocol Famotidine 20 mg 05/27/21 10:00 06/04/21 10:10 Famotidine 20 Mg Tab FEEDTUBE 20 mg BID ROSEMARIE Administration Fentanyl 50 mcg 05/23/21 12:34 05/31/21 10:20 Fentanyl 100 Mcg/2 Ml Inj IV 50 mcg Q10MIN PRN Administration ANALGESIA Hydrophilic Ointment 1 applic 05/23/21 12:34 Lip Therapy Vaseline TP Q2HR PRN Dry Lips Fentanyl Citrate 2,000 mcg in 100 mls @ 8.528 mls/hr 05/23/21 13:00 06/04/21 10:10 Fentanyl Drip Premix IV Infused TITR ROSEMARIE Titration Protocol 1 MCG/KG/HR NORepinephrine/NS 8 MG-250 ML 8 mg in 250 mls @ 3.75 mls/hr 05/24/21 20:00 06/04/21 05:07 Norepinephrine/Ns 8 Mg-250 Ml (Double Conc) IV 0 mcg/min TITRATE ROSEMARIE 0 mls/hr Titration Protocol 2 MCG/MIN Sodium Chloride 1,000 mls @ 75 mls/hr 06/04/21 12:00 06/04/21 11:43 Nacl 0.9% 1000 Ml IV 06/06/21 01:19 75 mls/hr DIRECT ROSEMARIE Administration Cefepime HCl 2 gm in 100 mls @ 200 mls/hr 06/04/21 15:00 Cefepime/Ns 2 Gm/100 Ml IV Q12H ROSEMARIE Protocol Multi-Ingred Cream/Lotion/Oil/Oint 1 applic 05/23/21 12:34 05/30/21 22:14 Mineral Oil/Petrolatum, White Ophth Oint 3.5 Gm OU 1 applic Q4HR PRN Administration Dry Eye(s) Ondansetron HCl 4 mg 05/23/21 20:42 Ondansetron 4 Mg/2 Ml Inj IV Q8H PRN Nausea And Vomiting Quetiapine Fumarate 100 mg 06/03/21 22:00 06/04/21 10:10 Quetiapine 100 Mg Tab PO 100 mg BID ROSEMARIE Administration Senna/Docusate Sodium 1 tab 05/23/21 22:00 06/04/21 10:10 Sennosides/Docusate Sodium 8.6/50 Mg Tab FEEDTUBE 1 tab BID ROSEMARIE Administration Simple Syrup 15 ml 05/24/21 10:14 Simple Syrup 15 Ml FEEDTUBE PRN PRN Hypoglycemia Simple Syrup 30 ml 05/24/21 10:14 Simple Syrup 15 Ml FEEDTUBE PRN PRN Hypoglycemia Sodium Bicarbonate 325 mg 05/24/21 10:14 Sodium Bicarbonate 325 Mg Tab FEEDTUBE PRN PRN For Clogged Feeding Tube Sodium Chloride 10 ml 05/23/21 22:00 06/04/21 10:09 Sodium Chloride 0.9% 10 Ml Flush Syringe IV 10 ml BID ROSEMARIE Administration Sodium Chloride 10 ml 05/23/21 20:42 Sodium Chloride 0.9% 10 Ml Flush Syringe IV PRN PRN LINE FLUSH Nutrition/Malnutrition Assess - Dietary Evaluation Nutrition/Malnutrition Findings: Nutrition Notes Start: 05/24/21 09:53 Freq: Status: Active Protocol: Document 06/02/21 16:14 GB (Rec: 06/02/21 16:23 GB [id number]) Nutrition Notes Initial or Follow up Reassessment Current Diagnosis Acute Kidney Injury, Hypertension,Respiratory Failure Other Pertinent Diagnosis SIRS, encephalopathy, pneu, transaminitis Current Diet NPO, Tube Feeding Nepro @ 45m/ hr Labs/Tests 06/02: BUN 61, Creatinine 1.7, glucose 119 Pertinent Medications Fentanyl Citrate, Norepenephrin/NS 8 Mg 250, Propofol 20.466 ml/hr (540kcal ) Height 5 ft 8 in Weight 100.6 kg [place] Body Weight (kg) 70.00 BMI 33.7 Weight change and time frame Weights recorded to nursing flow sheet - that does not tie to I/O weight results documentation. Weight taken on bed 06/02 100. 6kg, bed changed out on 05/29 r /t not working. Unsure if current weight or pervious weight is accurate. Weight Status Obese Subjective/Other Information MD notes 06/02: Continue TF@ goal as tolerated, persistent lower lobe predominant airspace disease, slightly improved. Per discussion with RN: Bed was changed out on 05/29 due to not working. Weight taken on current bed 100.6kg 06/02. Unsure if bed was zero'd or if weight from previous bed was accurate. Recommend reweigh for weight confirmation. Pt does not appear to have lost significant weight. Also discussed goal rate of TF. Goal is 45m/hr and rate was recorded at 55ml/hr. TF rate now at 45ml/hr. Intubation/Sedation: continues Last BM: 05/30 Percent of energy/protein needs met: TF at goal meets 75% or greater of minimal estimated energy needs Burn Absent Trauma Absent GI Symptoms Other Difficulty In Swallowing Food Allergy No Current % PO Other Minimum of two criteria No #1 Nutrition Diagnosis Swallowing difficulty Comments: 05/25: intubation/sedation continues. TF started 05/28: intubation/sedation continues. TF Nepro @ goal 45ml/hr 06/02: intubation/sedation continues. TF Nepro @ 45m/hr Etiology ARF As Evidenced by Signs and Symptoms Intubated/sedated Diagnosis Progress(for reassessment Continues documentation) Is patient on ventilator? Yes Is Patient Ambulatory and/or Out of Bed No REE-([facility]-confined to bed) 2253.516 Kcal/Kg value to use for calculation 20 Approximate Energy Requirements Using 2011 kcal/Kg Calculation Used for Recommendations Kcal/kg Additional Notes Protein: 1-1.2 g/kg @ 100k-120g Fluid: 1 ml/kcal or per MD Nutrition Intervention Change Diet Order: Continue NPO, Tube feeding Nutrition Support: Nepro 1.8 at 45 ml/hr Flush 175 ml q4h or per MD Total free water: TF@goal + flush = 1835ml Kcal 1,950 Protein (gm) 88 Carbohydrates (gm) 174 Fat (gm) 104 Fluid (mL) 788 Fiber (gm) 14 % RDI: 98%kcal / 88%pro Add Supplement/Snack (indicate name/kcal n/a /protein ) Goal #1 Meet at least 75% or greater of EEN via TF 05/25: met, continues 05/28: met, continues 06/02: met, continues Goal #2 TF (Nepro) at goal rate (45ml/ hr) by f/u 05/25: TF started 05/28: TF at goal. met, continues 06/02: met, continues Anticipated Discharge Needs: Unable to determine at this time Follow-Up By: 06/09/21 Additional Comments f/u: TF tolerance, weight, vent status
[2021-06-04] MEDS: fentaNYL 100 MCG/2 ML INJ IV PRN ×2 (16:09→16:48)
[2021-06-04] MEDS: VANCOMYCIN 750 MG in SODIUM CHLORIDE 0.9% 250ML 250 ML IV SCH (16:41)
[2021-06-05] MEDS: fentaNYL DRIP Premix 2,000 MCG/100 ML BAG IV SCH ×9 (00:05→23:00)
[2021-06-05] MEDS: fentaNYL 100 MCG/2 ML INJ IV PRN (01:06)
[2021-06-05] MEDS: ACETAMINOPHEN 325 MG TAB PO PRN ×2 (01:23→20:30)
[2021-06-05] MEDS: SODIUM CHLORIDE 0.9% 1000 ML 1,000 ML IV SCH (01:40)
[2021-06-05] MEDS: CEFEPIME/NS 2 GM/100 ML 2 GM/100 ML BAG IV SCH ×2 (03:37→15:32)
[2021-06-05] MEDS: VANCOMYCIN 750 MG in SODIUM CHLORIDE 0.9% 250ML 250 ML IV SCH (04:39)
[2021-06-05 05:08] LABS: Hematocrit 29.6 % (35.5-45.6); Mean Corpuscular HGB Conc 30 % (32-34); Mean Corpuscular Volume 97 fl (84-94); Platelet Count 172 K/mm3 (140-440); Red Blood Count 3.07 M/mm3 (3.65-5.03); Red Cell Distribution Width 19.1 % (13.2-15.2)
[2021-06-05 05:34] LABS: Calcium 8.7 mg/dL (8.4-10.2)
[2021-06-05] MEDS: IPRATROPIUM/ALBUTEROL SULFATE 3 ML AMPUL.NEB IH SCH ×3 (09:10→20:56)
[2021-06-05 09:22] LABS: ABG Base Excess -4.2 mmol/L (-2.0-3.0); ABG HCO3 22.3 mmol/L (20.0-26.0); ABG Methemoglobin 0.5 % (0.0-1.5); ABG Oxygen Saturation 96.8 % (95.0-99.0); ABG PCO2 47.7 mm Hg; ABG PH 7.287 pH Units (7.350-7.450); ABG PO2 79.5 mm Hg (80.0-90.0)
[2021-06-05] MEDS: QUEtiapine 100 MG TAB PO SCH ×2 (09:24→21:19)
[2021-06-05] MEDS: SENNOSIDES/DOCUSATE SODIUM 8.6/50 MG TAB FEEDTUBE SCH ×2 (09:24→21:18)
[2021-06-05] MEDS: FAMOTIDINE 20 MG TAB FEEDTUBE SCH ×2 (09:24→21:18)
[2021-06-05] MEDS: APIXABAN 2.5 MG TAB PO SCH ×2 (09:24→21:18)
--- NOTE | 2021-06-05 10:36 | Progress Note ---
Assessment and Plan - Patient Problems (1) Acute respiratory failure Current Visit: Yes Status: Acute Plan to address problem: Continue supportive management of respiratory failure, no acute cardiac complaints. Subjective Date of service: 06/05/21 Principal diagnosis: Acute hypoxemic and hypercapnic resp failure; PUI COVID-19; Pneumonia; FERMIN Interval history: Patient is sedated, on the vent, but appears to open and close his eyes intermittently. He is in a sinus tachycardia at 114, systolic blood pressure is 120s, off pressors. Objective Vital Signs Temp Pulse Pulse Pulse Resp Resp BP 06/05/21 10:08 06/05/21 09:10 117 H 25 H 06/05/21 08:59 115 H 113/63 06/05/21 08:00 101.1 F H 06/05/21 07:30 112 H 14 112/62 06/05/21 07:15 112 H 15 113/61 06/05/21 07:00 112 H 23 112/59 06/05/21 06:45 112 H 19 111/63 06/05/21 06:30 113 H 25 H 114/61 06/05/21 06:15 112 H 25 H 115/62 06/05/21 06:00 113 H 25 H 112/61 06/05/21 05:45 119 H 20 115/61 06/05/21 05:30 117 H 25 H 113/60 06/05/21 05:15 111 H 25 H 116/66 06/05/21 05:00 113 H 25 H 111/63 06/05/21 04:45 118 H 25 H 115/59 06/05/21 04:30 115 H 25 H 113/63 06/05/21 04:15 112 H 24 114/62 06/05/21 04:00 100.8 F H 112 H 25 H 115/60 06/05/21 03:45 111 H 20 114/65 06/05/21 03:40 100.8 F H 138 H 27 H 06/05/21 03:30 113 H 20 117/60 06/05/21 03:28 114 H 117/60 06/05/21 03:15 115 H 21 119/58 06/05/21 03:00 116 H 17 123/61 06/05/21 02:45 118 H 23 121/59 06/05/21 02:30 120 H 26 H 124/60 06/05/21 02:15 124 H 13 126/62 06/05/21 02:00 128 H 18 129/57 06/05/21 01:45 132 H 22 137/65 06/05/21 01:30 136 H 23 139/66 06/05/21 01:15 145 H 17 148/71 06/05/21 01:00 140 H 23 148/72 06/05/21 00:45 133 H 24 143/73 06/05/21 00:30 131 H 16 141/75 06/05/21 00:15 129 H 18 113/65 06/05/21 00:00 100.0 F H 110 H 138 H 25 H 113/65 06/04/21 23:45 110 H 25 H 113/61 06/04/21 23:30 111 H 25 H 116/60 06/04/21 23:15 111 H 19 114/60 06/04/21 23:00 109 H 17 115/62 06/04/21 22:45 112 H 16 118/60 06/04/21 22:30 112 H 23 116/59 06/04/21 22:15 113 H 21 114/60 06/04/21 22:00 113 H 27 H 114/56 06/04/21 21:45 115 H 22 116/55 06/04/21 21:31 118 H 19 120/55 06/04/21 21:30 120 H 27 H 120/55 06/04/21 21:15 122 H 21 121/53 06/04/21 21:00 121 H 17 122/53 06/04/21 20:57 120 H 225 H 06/04/21 20:53 120 H 133/66 06/04/21 20:45 126 H 19 133/66 06/04/21 20:30 122 H 25 H 121/58 06/04/21 20:15 124 H 29 H 127/68 06/04/21 20:00 100.6 F H 129 H 27 H 130/74 06/04/21 19:54 138 H 27 H 06/04/21 19:52 100.4 F H 06/04/21 19:45 127 H 25 H 125/58 06/04/21 19:30 128 H 22 128/63 06/04/21 19:15 127 H 21 129/60 06/04/21 19:00 128 H 25 H 127/62 06/04/21 18:45 130 H 20 131/67 06/04/21 18:30 133 H 26 H 134/66 06/04/21 18:22 06/04/21 18:15 134 H 28 H 134/62 06/04/21 18:00 27 H 143/72 06/04/21 17:45 137 H 28 H 136/67 06/04/21 17:30 137 H 19 144/66 06/04/21 17:15 159 H 31 H 142/72 06/04/21 17:00 142 H 25 H 142/72 06/04/21 16:45 139 H 24 140/75 06/04/21 16:30 138 H 55 H 132/69 06/04/21 16:15 136 H 31 H 135/70 06/04/21 16:14 137 H 135/70 06/04/21 16:00 100.4 F H 122 H 138 H 22 146/78 06/04/21 15:45 25 H 144/85 06/04/21 15:30 23 144/85 06/04/21 15:15 121 H 25 H 124/59 06/04/21 15:00 122 H 26 H 130/55 06/04/21 14:45 124 H 24 125/61 06/04/21 14:30 124 H 24 128/56 06/04/21 14:28 124 H 25 H 06/04/21 14:15 124 H 18 132/61 06/04/21 14:00 124 H 28 H 126/56 06/04/21 13:45 126 H 30 H 132/59 06/04/21 13:30 127 H 22 124/56 06/04/21 13:15 128 H 22 117/60 06/04/21 13:00 130 H 31 H 126/57 06/04/21 12:45 133 H 25 H 130/60 06/04/21 12:30 130 H 22 124/45 06/04/21 12:15 132 H 37 H 122/52 06/04/21 12:00 101.7 F H 137 H 138 H 53 H 123/53 06/04/21 11:57 131 H 119/48 06/04/21 11:45 137 H 57 H 119/48 06/04/21 11:30 137 H 40 H 127/50 06/04/21 11:15 142 H 24 139/65 06/04/21 11:01 139 H 29 H 135/63 06/04/21 10:46 143 H 32 H 144/73 Pulse Ox 06/05/21 10:08 96 06/05/21 09:10 06/05/21 08:59 95 06/05/21 08:00 06/05/21 07:30 95 06/05/21 07:15 96 06/05/21 07:00 96 06/05/21 06:45 96 06/05/21 06:30 95 06/05/21 06:15 95 06/05/21 06:00 94 06/05/21 05:45 94 06/05/21 05:30 93 06/05/21 05:15 94 06/05/21 05:00 92 06/05/21 04:45 92 06/05/21 04:30 94 06/05/21 04:15 95 06/05/21 04:00 94 06/05/21 03:45 94 06/05/21 03:40 94 06/05/21 03:30 95 06/05/21 03:28 95 06/05/21 03:15 95 06/05/21 03:00 95 06/05/21 02:45 94 06/05/21 02:30 95 06/05/21 02:15 94 06/05/21 02:00 95 06/05/21 01:45 94 06/05/21 01:30 94 06/05/21 01:15 93 06/05/21 01:00 94 06/05/21 00:45 94 06/05/21 00:30 95 06/05/21 00:15 95 06/05/21 00:00 97 06/04/21 23:45 97 06/04/21 23:30 97 06/04/21 23:15 97 06/04/21 23:00 97 06/04/21 22:45 97 06/04/21 22:30 97 06/04/21 22:15 97 06/04/21 22:00 97 06/04/21 21:45 97 06/04/21 21:31 96 06/04/21 21:30 96 06/04/21 21:15 96 06/04/21 21:00 95 06/04/21 20:57 06/04/21 20:53 95 06/04/21 20:45 94 06/04/21 20:30 94 06/04/21 20:15 92 06/04/21 20:00 95 06/04/21 19:54 94 06/04/21 19:52 06/04/21 19:45 93 06/04/21 19:30 93 06/04/21 19:15 93 06/04/21 19:00 92 06/04/21 18:45 92 06/04/21 18:30 93 06/04/21 18:22 93 06/04/21 18:15 93 06/04/21 18:00 92 06/04/21 17:45 92 06/04/21 17:30 92 06/04/21 17:15 86 06/04/21 17:00 89 06/04/21 16:45 89 06/04/21 16:30 88 06/04/21 16:15 89 06/04/21 16:14 89 06/04/21 16:00 87 06/04/21 15:45 96 06/04/21 15:30 94 06/04/21 15:15 94 06/04/21 15:00 92 06/04/21 14:45 93 06/04/21 14:30 94 06/04/21 14:28 06/04/21 14:15 94 06/04/21 14:00 93 06/04/21 13:45 93 06/04/21 13:30 94 06/04/21 13:15 93 06/04/21 13:00 93 06/04/21 12:45 93 06/04/21 12:30 93 06/04/21 12:15 90 06/04/21 12:00 91 06/04/21 11:57 91 06/04/21 11:45 92 06/04/21 11:30 91 06/04/21 11:15 90 06/04/21 11:01 91 06/04/21 10:46 91 - Physical Examination General: Other (Sedated on mechanical ventilator) HEENT: Positive: Normocephaly Neck: Positive: neck supple. Negative: JVD/HJR Cardiac: Positive: Regular Rhythm Lungs: Positive: Decreased Breath Sounds Neuro: Positive: Other (Sedated, on the vent) Abdomen: Positive: Soft Skin: Positive: Clear Extremities: Present: +1 Edema - Labs and Meds CBC 06/04/21 06/05/21 Range/Units 13:54 04:30 WBC 8.0 8.2 (4.5-11.0) K/mm3 RBC 3.07 L 3.07 L (3.65-5.03) M/mm3 Hgb 8.9 L 9.0 L (11.8-15.2) gm/dl Hct 29.5 L 29.6 L (35.5-45.6) % Plt Count 175 172 (140-440) K/mm3 Comprehensive Metabolic Panel 06/04/21 06/05/21 Range/Units 13:56 04:30 Sodium 142 139 (137-145) mmol/L Potassium 4.7 4.8 (3.6-5.0) mmol/L Chloride 108.8 H 108.5 H (98-107) mmol/L Carbon Dioxide 21 L 21 L (22-30) mmol/L BUN 58 H 60 H (9-20) mg/dL Creatinine 1.8 H 1.7 H (0.8-1.3) mg/dL Glucose 105 H 110 H (75-100) mg/dL Calcium 8.5 8.7 (8.4-10.2) mg/dL - Imaging and Cardiology EKG: report reviewed (Sinus tachycardia no acute ST-T wave changes) - Allied health notes Allied health notes reviewed: nursing
--- NOTE | 2021-06-05 13:45 | Progress Note ---
Assessment and Plan Acute possibly on chronic hypoxemic and hypercapnic respiratory failure Pneumonia, community-acquired Acute toxic metabolic encephalopathy Person under investigation for COVID-19 Morbid obesity Obstructive sleep apnea History of hypertension Acute kidney injury Hyperkalemia Elevated serum transaminases Possible shock liver Hyperammonemia Non-ST elevation myocardial infarction - FiO2 reduced to 95% - repeat CXR in am - AB's per ID recommendations (Cefepime and Vancomycin) - repeat ABG in am - complete IVNS @ 75 mls/hr X 2 more liters - prn Levophed for target MAP > 65 mmHg - continue care as below otherwise; - continue Eliquis - continue Revatio re: pulm HTN - nephrology input appreciated (azotemia improving) - continue Daily SAT and SBT assessment as tolerated - continue to wean supplemental oxygen for target O2 sat's > 90% acutely - VAP bundle addressed - continue lung protective strategies - continue bronchodilators with pulmonary hygiene per RT - wean per pulmonary driven protocols otherwise - avoid nephrotoxins, renally dose all medications - continue accuchecks with glycemic control per SSI (While critically ill target blood glucose of 140-180 mg/dL; avoid hypoglycemia) - sedation prn for target RASS 0 to -1 - continue to avoid benzodiazepine's, reduce the possibility of delirium - AB's per ID rec's - prn analgesia per CPOT score - Maintenance of sleep-wake cycle, avoid delirium - continue enteral nutritional support at goal rate as tolerated - G.I. & VTE prophylaxis - PT/OT/ROM exercises - continue mobility protocols for pressure ulcer prophylaxis - Monitor hemodynamics closely - continue other care per attending / other consultants - discharge planning ongoing concurrently COVID SPECIFIC INTERVENTIONS - COVID-19 test result pending .... Re-evaluate in am & prn CONDITION: CRITICAL PROGNOSIS: GUARDED CODE STATUS: FULL CODE The high probability of a clinically significant, sudden or life-threatening deterioration of the [respiratory, cardiovascular, renal & neurologic] system(s) required my full and direct attention, intervention and personal management. The aggregate critical care time was [34] minutes without overlap. Time includes spent on; [x] Data Review and interpretation [x] Patient assessment and monitoring of vital signs [x] Documentation [x] Medication orders and management Subjective Date of service: 06/05/21 Principal diagnosis: Acute hypoxemic and hypercapnic resp failure; PUI COVID-19; Pneumonia; FERMIN Interval history: Patient is seen today for: Acute hypoxemic and hypercapnic respiratory failure; PUI NCOVID-19; Pneumonia; CAP; FERMIN; REVA Seen and examined at bedside; 24hour events reviewed; nursing and respiratory care staff consulted; no adverse overnight events reported to me; remains on MVS; remains with ARDS; intermittent Levophed needs but off now; making urine; BMP pending; no emesis or overt aspiration and no gross bleeding Objective Vital Signs - 12hr 06/05/21 06/05/21 06/05/21 01:45 02:00 02:15 Temperature Pulse Rate 132 H 128 H 124 H Pulse Rate [ Anterior Bilateral Throughout] Pulse Rate [ Posterior Tibial] Respiratory 22 18 13 Rate Respiratory Rate [Anterior Bilateral Throughout] Blood Pressure 137/65 129/57 126/62 O2 Sat by Pulse 94 95 94 Oximetry 06/05/21 06/05/21 06/05/21 02:30 02:45 03:00 Temperature Pulse Rate 120 H 118 H 116 H Pulse Rate [ Anterior Bilateral Throughout] Pulse Rate [ Posterior Tibial] Respiratory 26 H 23 17 Rate Respiratory Rate [Anterior Bilateral Throughout] Blood Pressure 124/60 121/59 123/61 O2 Sat by Pulse 95 94 95 Oximetry 06/05/21 06/05/21 06/05/21 03:15 03:28 03:30 Temperature Pulse Rate 115 H 114 H 113 H Pulse Rate [ Anterior Bilateral Throughout] Pulse Rate [ Posterior Tibial] Respiratory 21 20 Rate Respiratory Rate [Anterior Bilateral Throughout] Blood Pressure 119/58 117/60 117/60 O2 Sat by Pulse 95 95 95 Oximetry 06/05/21 06/05/21 06/05/21 03:40 03:45 04:00 Temperature 100.8 F H 100.8 F H Pulse Rate 111 H 112 H Pulse Rate [ Anterior Bilateral Throughout] Pulse Rate [ 138 H Posterior Tibial] Respiratory 27 H 20 25 H Rate Respiratory Rate [Anterior Bilateral Throughout] Blood Pressure 114/65 115/60 O2 Sat by Pulse 94 94 94 Oximetry 06/05/21 06/05/21 06/05/21 04:15 04:30 04:45 Temperature Pulse Rate 112 H 115 H 118 H Pulse Rate [ Anterior Bilateral Throughout] Pulse Rate [ Posterior Tibial] Respiratory 24 25 H 25 H Rate Respiratory Rate [Anterior Bilateral Throughout] Blood Pressure 114/62 113/63 115/59 O2 Sat by Pulse 95 94 92 Oximetry 06/05/21 06/05/21 06/05/21 05:00 05:15 05:30 Temperature Pulse Rate 113 H 111 H 117 H Pulse Rate [ Anterior Bilateral Throughout] Pulse Rate [ Posterior Tibial] Respiratory 25 H 25 H 25 H Rate Respiratory Rate [Anterior Bilateral Throughout] Blood Pressure 111/63 116/66 113/60 O2 Sat by Pulse 92 94 93 Oximetry 06/05/21 06/05/21 06/05/21 05:45 06:00 06:15 Temperature Pulse Rate 119 H 113 H 112 H Pulse Rate [ Anterior Bilateral Throughout] Pulse Rate [ Posterior Tibial] Respiratory 20 25 H 25 H Rate Respiratory Rate [Anterior Bilateral Throughout] Blood Pressure 115/61 112/61 115/62 O2 Sat by Pulse 94 94 95 Oximetry 06/05/21 06/05/21 06/05/21 06:30 06:45 07:00 Temperature Pulse Rate 113 H 112 H 112 H Pulse Rate [ Anterior Bilateral Throughout] Pulse Rate [ Posterior Tibial] Respiratory 25 H 19 23 Rate Respiratory Rate [Anterior Bilateral Throughout] Blood Pressure 114/61 111/63 112/59 O2 Sat by Pulse 95 96 96 Oximetry 06/05/21 06/05/21 06/05/21 07:15 07:30 07:45 Temperature Pulse Rate 112 H 112 H 114 H Pulse Rate [ Anterior Bilateral Throughout] Pulse Rate [ Posterior Tibial] Respiratory 15 14 15 Rate Respiratory Rate [Anterior Bilateral Throughout] Blood Pressure 113/61 112/62 118/60 O2 Sat by Pulse 96 95 96 Oximetry 06/05/21 06/05/21 06/05/21 08:00 08:15 08:30 Temperature 101.1 F H Pulse Rate 113 H 114 H 116 H Pulse Rate [ Anterior Bilateral Throughout] Pulse Rate [ Posterior Tibial] Respiratory 17 29 H 27 H Rate Respiratory Rate [Anterior Bilateral Throughout] Blood Pressure 114/60 113/65 120/78 O2 Sat by Pulse 95 95 96 Oximetry 06/05/21 06/05/21 06/05/21 08:45 08:59 09:00 Temperature Pulse Rate 116 H 115 H 115 H Pulse Rate [ Anterior Bilateral Throughout] Pulse Rate [ Posterior Tibial] Respiratory 13 17 Rate Respiratory Rate [Anterior Bilateral Throughout] Blood Pressure 113/63 113/63 118/63 O2 Sat by Pulse 94 95 95 Oximetry 06/05/21 06/05/21 06/05/21 09:10 09:15 09:30 Temperature Pulse Rate 117 H 118 H Pulse Rate [ 117 H Anterior Bilateral Throughout] Pulse Rate [ Posterior Tibial] Respiratory 46 H 39 H Rate Respiratory 25 H Rate [Anterior Bilateral Throughout] Blood Pressure 128/72 130/72 O2 Sat by Pulse 95 97 Oximetry 06/05/21 06/05/21 06/05/21 09:45 10:00 10:08 Temperature Pulse Rate 133 H 118 H Pulse Rate [ Anterior Bilateral Throughout] Pulse Rate [ Posterior Tibial] Respiratory 32 H 46 H Rate Respiratory Rate [Anterior Bilateral Throughout] Blood Pressure 128/68 128/74 O2 Sat by Pulse 97 96 96 Oximetry 06/05/21 06/05/21 06/05/21 10:15 10:30 10:45 Temperature Pulse Rate 117 H 118 H 118 H Pulse Rate [ Anterior Bilateral Throughout] Pulse Rate [ Posterior Tibial] Respiratory 26 H 25 H 19 Rate Respiratory Rate [Anterior Bilateral Throughout] Blood Pressure 128/70 133/70 129/68 O2 Sat by Pulse 94 94 93 Oximetry 06/05/21 06/05/21 06/05/21 11:00 11:15 11:30 Temperature Pulse Rate 121 H 124 H 125 H Pulse Rate [ Anterior Bilateral Throughout] Pulse Rate [ Posterior Tibial] Respiratory 25 H 29 H 22 Rate Respiratory Rate [Anterior Bilateral Throughout] Blood Pressure 137/70 130/67 128/67 O2 Sat by Pulse 93 90 93 Oximetry 06/05/21 06/05/21 06/05/21 11:45 12:00 12:15 Temperature 100 F H Pulse Rate 126 H 130 H 127 H Pulse Rate [ Anterior Bilateral Throughout] Pulse Rate [ Posterior Tibial] Respiratory 27 H 16 22 Rate Respiratory Rate [Anterior Bilateral Throughout] Blood Pressure 133/78 141/82 134/71 O2 Sat by Pulse 93 94 94 Oximetry 06/05/21 06/05/21 06/05/21 12:19 12:30 12:45 Temperature Pulse Rate 125 H 127 H 125 H Pulse Rate [ Anterior Bilateral Throughout] Pulse Rate [ Posterior Tibial] Respiratory 24 18 Rate Respiratory Rate [Anterior Bilateral Throughout] Blood Pressure 134/71 134/65 128/69 O2 Sat by Pulse 94 94 94 Oximetry Constitutional: appears uncomfortable, other (middle aged morbidly obese male with mildly increased respiratory effort at rest on MVS) Eyes: non-icteric ENT: oropharynx moist, other (ETT 24 cm FRANCIS) Neck: supple, no lymphadenopathy, no JVD Effort: mildly labored Ascultation: Bilateral: diminished breath sounds, rhonchi Percussion: Bilateral: not dull Cardiovascular: regular rate and rhythm Gastrointestinal: normoactive bowel sounds, soft, non-tender, non-distended Integumentary: rash (stasis dermatitis) Extremities: no cyanosis, pulses normal, no ischemia or petechiae, edema (trace) Neurologic: non-focal exam (grossly), pupils equal and round, CN II-XII normal, other (sedated) Psychiatric: other (sedated) CBC and BMP: 06/06/21 Unknown 06/06/21 Unknown ABG, PT/INR, D-dimer: ABG ABG pH 7.287 pH Units (7.350-7.450) L 06/05/21 09:07 POC ABG pCO2 47.3 mmHg (32.0-48.0) 06/03/21 06:55 ABG pCO2 47.7 mm Hg 06/05/21 09:07 POC ABG pO2 67.4 mmHg (83-108) L 06/03/21 06:55 ABG pO2 79.5 mm Hg (80.0-90.0) L 06/05/21 09:07 POC ABG HCO3 22.6 06/03/21 06:55 ABG O2 Saturation 96.8 % (95.0-99.0) 06/05/21 09:07 PT/INR, D-dimer PT 15.3 Sec. (12.2-14.9) H 05/29/21 13:40 INR 1.09 (0.87-1.13) 05/29/21 13:40 D-Dimer 4444.85 ng/mlDDU (0-234) H 05/23/21 15:09 Abnormal lab findings: Abnormal Labs 05/23/21 05/23/21 05/23/21 15:00 15:09 15:09 WBC RBC Hgb Hct MCV 95 H MCHC 30 L RDW 20.1 H Plt Count Lymph % (Auto) 5.9 L [place] % (Auto) Lymph # (Auto) 0.6 L [place] # (Auto) Seg Neutrophils % 87.5 H Seg Neuts % (Manual) Lymphocytes % (Manual) Seg Neutrophils # 8.2 H Seg Neutrophils # Man Lymphocytes # (Manual) PT 18.1 H INR 1.36 H APTT 23.1 L D-Dimer ABG pH 7.215 L POC ABG pCO2 POC ABG pO2 ABG pO2 ABG HCO3 28.4 H ABG O2 Saturation ABG Base Excess ABG Hemoglobin 13.5 L ABG Oxyhemoglobin ABG Sodium ABG Potassium ABG Chloride ABG Glucose Oxyhemoglobin 92.6 L Sodium Potassium Chloride Carbon Dioxide BUN Creatinine Glucose POC Glucose Calcium Magnesium AST ALT Ammonia Total Creatine Kinase Troponin T C-Reactive Protein NT-Pro-B Natriuret Pep Albumin Triglycerides HDL Cholesterol Arterial Blood Glucose Urine WBC (Auto) Urine Creatinine Urine Total Protein Salicylates Acetaminophen 05/23/21 05/23/21 05/23/21 15:09 15:09 15:09 WBC RBC Hgb Hct MCV MCHC RDW Plt Count Lymph % (Auto) [place] % (Auto) Lymph # (Auto) [place] # (Auto) Seg Neutrophils % Seg Neuts % (Manual) Lymphocytes % (Manual) Seg Neutrophils # Seg Neutrophils # Man Lymphocytes # (Manual) PT INR APTT D-Dimer ABG pH POC ABG pCO2 POC ABG pO2 ABG pO2 ABG HCO3 ABG O2 Saturation ABG Base Excess ABG Hemoglobin ABG Oxyhemoglobin ABG Sodium ABG Potassium ABG Chloride ABG Glucose Oxyhemoglobin Sodium Potassium 5.2 H Chloride Carbon Dioxide BUN 40 H Creatinine 3.2 H Glucose 133 H POC Glucose Calcium Magnesium AST 1094 H ALT 1089 H Ammonia 75.0 H Total Creatine Kinase Troponin T 0.038 H C-Reactive Protein NT-Pro-B Natriuret Pep Albumin 3.0 L Triglycerides HDL Cholesterol 29 L Arterial Blood Glucose Urine WBC (Auto) Urine Creatinine Urine Total Protein Salicylates < 0.3 L Acetaminophen 05/23/21 05/23/21 05/23/21 15:09 15:09 15:09 WBC RBC Hgb Hct MCV MCHC RDW Plt Count Lymph % (Auto) [place] % (Auto) Lymph # (Auto) [place] # (Auto) Seg Neutrophils % Seg Neuts % (Manual) Lymphocytes % (Manual) Seg Neutrophils # Seg Neutrophils # Man Lymphocytes # (Manual) PT INR APTT D-Dimer 4444.85 H ABG pH POC ABG pCO2 POC ABG pO2 ABG pO2 ABG HCO3 ABG O2 Saturation ABG Base Excess ABG Hemoglobin ABG Oxyhemoglobin ABG Sodium ABG Potassium ABG Chloride ABG Glucose Oxyhemoglobin Sodium Potassium Chloride Carbon Dioxide BUN Creatinine Glucose POC Glucose Calcium Magnesium AST ALT Ammonia Total Creatine Kinase 48 L Troponin T C-Reactive Protein NT-Pro-B Natriuret Pep 35347 H Albumin Triglycerides HDL Cholesterol Arterial Blood Glucose Urine WBC (Auto) Urine Creatinine Urine Total Protein Salicylates Acetaminophen 5.0 L 05/23/21 05/23/21 05/23/21 19:10 20:48 Unknown WBC RBC Hgb Hct MCV MCHC RDW Plt Count Lymph % (Auto) [place] % (Auto) Lymph # (Auto) [place] # (Auto) Seg Neutrophils % Seg Neuts % (Manual) Lymphocytes % (Manual) Seg Neutrophils # Seg Neutrophils # Man Lymphocytes # (Manual) PT INR APTT D-Dimer ABG pH 7.332 L POC ABG pCO2 POC ABG pO2 ABG pO2 74.0 L ABG HCO3 ABG O2 Saturation 94.4 L ABG Base Excess ABG Hemoglobin 12.5 L ABG Oxyhemoglobin ABG Sodium ABG Potassium ABG Chloride ABG Glucose Oxyhemoglobin 92.3 L Sodium Potassium Chloride Carbon Dioxide BUN Creatinine Glucose POC Glucose Calcium Magnesium AST ALT Ammonia Total Creatine Kinase Troponin T C-Reactive Protein 10.00 H NT-Pro-B Natriuret Pep Albumin Triglycerides HDL Cholesterol Arterial Blood Glucose Urine WBC (Auto) 34.0 H Urine Creatinine Urine Total Protein Salicylates Acetaminophen 05/24/21 05/24/21 05/24/21 04:55 04:55 09:15 WBC RBC Hgb Hct MCV 95 H MCHC 31 L RDW 19.4 H Plt Count Lymph % (Auto) [place] % (Auto) Lymph # (Auto) [place] # (Auto) Seg Neutrophils % Seg Neuts % (Manual) 97.0 H Lymphocytes % (Manual) 3.0 L Seg Neutrophils # Seg Neutrophils # Man 8.4 H Lymphocytes # (Manual) 0.3 L PT INR APTT D-Dimer ABG pH POC ABG pCO2 POC ABG pO2 ABG pO2 90.6 H ABG HCO3 ABG O2 Saturation ABG Base Excess -3.7 L ABG Hemoglobin 13.5 L ABG Oxyhemoglobin ABG Sodium ABG Potassium ABG Chloride ABG Glucose Oxyhemoglobin Sodium Potassium 5.5 H Chloride Carbon Dioxide 20 L BUN 39 H Creatinine 2.2 H Glucose 155 H POC Glucose Calcium 8.3 L Magnesium AST 571 H ALT 951 H Ammonia Total Creatine Kinase Troponin T C-Reactive Protein NT-Pro-B Natriuret Pep Albumin 3.2 L Triglycerides HDL Cholesterol Arterial Blood Glucose Urine WBC (Auto) Urine Creatinine Urine Total Protein Salicylates Acetaminophen 05/25/21 05/25/21 05/25/21 04:20 14:37 14:37 WBC RBC Hgb Hct MCV 96 H MCHC 30 L RDW 20.7 H Plt Count Lymph % (Auto) [place] % (Auto) Lymph # (Auto) [place] # (Auto) Seg Neutrophils % Seg Neuts % (Manual) Lymphocytes % (Manual) Seg Neutrophils # Seg Neutrophils # Man Lymphocytes # (Manual) PT INR APTT D-Dimer ABG pH 7.222 L POC ABG pCO2 57.8 H POC ABG pO2 67.3 L ABG pO2 ABG HCO3 ABG O2 Saturation ABG Base Excess ABG Hemoglobin ABG Oxyhemoglobin 89.1 L ABG Sodium ABG Potassium 5.1 H ABG Chloride ABG Glucose 182 H Oxyhemoglobin Sodium Potassium 5.3 H Chloride Carbon Dioxide BUN 47 H Creatinine 2.0 H Glucose 154 H POC Glucose Calcium Magnesium AST 93 H ALT 590 H Ammonia Total Creatine Kinase Troponin T C-Reactive Protein NT-Pro-B Natriuret Pep Albumin 3.6 L Triglycerides HDL Cholesterol Arterial Blood Glucose 182 H Urine WBC (Auto) Urine Creatinine Urine Total Protein Salicylates Acetaminophen 05/25/21 05/25/21 05/26/21 21:50 23:30 05:31 WBC RBC Hgb Hct MCV MCHC RDW Plt Count Lymph % (Auto) [place] % (Auto) Lymph # (Auto) [place] # (Auto) Seg Neutrophils % Seg Neuts % (Manual) Lymphocytes % (Manual) Seg Neutrophils # Seg Neutrophils # Man Lymphocytes # (Manual) PT INR APTT D-Dimer ABG pH 7.328 L POC ABG pCO2 POC ABG pO2 ABG pO2 63.3 L ABG HCO3 ABG O2 Saturation 92.1 L ABG Base Excess -2.4 L ABG Hemoglobin 11.3 L ABG Oxyhemoglobin ABG Sodium ABG Potassium ABG Chloride ABG Glucose Oxyhemoglobin 90.3 L Sodium Potassium Chloride Carbon Dioxide BUN Creatinine Glucose POC Glucose 131 H 123 H Calcium Magnesium AST ALT Ammonia Total Creatine Kinase Troponin T C-Reactive Protein NT-Pro-B Natriuret Pep Albumin Triglycerides HDL Cholesterol Arterial Blood Glucose Urine WBC (Auto) Urine Creatinine Urine Total Protein Salicylates Acetaminophen 05/26/21 05/26/21 05/26/21 09:02 10:57 12:37 WBC RBC Hgb Hct MCV MCHC RDW Plt Count Lymph % (Auto) [place] % (Auto) Lymph # (Auto) [place] # (Auto) Seg Neutrophils % Seg Neuts % (Manual) Lymphocytes % (Manual) Seg Neutrophils # Seg Neutrophils # Man Lymphocytes # (Manual) PT INR APTT D-Dimer ABG pH 7.346 L POC ABG pCO2 POC ABG pO2 ABG pO2 60.5 L ABG HCO3 ABG O2 Saturation 90.7 L ABG Base Excess ABG Hemoglobin 13.1 L ABG Oxyhemoglobin ABG Sodium ABG Potassium ABG Chloride ABG Glucose Oxyhemoglobin 88.9 L Sodium Potassium Chloride Carbon Dioxide BUN Creatinine Glucose POC Glucose 127 H Calcium Magnesium AST ALT Ammonia Total Creatine Kinase Troponin T C-Reactive Protein NT-Pro-B Natriuret Pep Albumin Triglycerides HDL Cholesterol Arterial Blood Glucose Urine WBC (Auto) Urine Creatinine 79.3 H Urine Total Protein 80 H Salicylates Acetaminophen 05/26/21 05/26/21 05/26/21 17:30 21:00 Unknown WBC 4.2 L RBC Hgb 11.7 L Hct MCV MCHC 31 L RDW 20.3 H Plt Count 132 L Lymph % (Auto) [place] % (Auto) Lymph # (Auto) [place] # (Auto) Seg Neutrophils % Seg Neuts % (Manual) Lymphocytes % (Manual) Seg Neutrophils # Seg Neutrophils # Man Lymphocytes # (Manual) PT INR APTT D-Dimer ABG pH POC ABG pCO2 POC ABG pO2 56.7 L ABG pO2 ABG HCO3 ABG O2 Saturation ABG Base Excess ABG Hemoglobin ABG Oxyhemoglobin 88.8 L ABG Sodium ABG Potassium 4.7 H ABG Chloride ABG Glucose 152 H Oxyhemoglobin Sodium Potassium Chloride Carbon Dioxide BUN Creatinine Glucose POC Glucose 141 H Calcium Magnesium AST ALT Ammonia Total Creatine Kinase Troponin T C-Reactive Protein NT-Pro-B Natriuret Pep Albumin Triglycerides HDL Cholesterol Arterial Blood Glucose 152 H Urine WBC (Auto) Urine Creatinine Urine Total Protein Salicylates Acetaminophen 05/26/21 05/26/21 05/27/21 Unknown Unknown 08:00 WBC 4.2 L RBC Hgb Hct MCV MCHC RDW 21.2 H Plt Count 126 L Lymph % (Auto) [place] % (Auto) Lymph # (Auto) [place] # (Auto) Seg Neutrophils % Seg Neuts % (Manual) Lymphocytes % (Manual) Seg Neutrophils # Seg Neutrophils # Man Lymphocytes # (Manual) PT INR APTT D-Dimer ABG pH POC ABG pCO2 POC ABG pO2 ABG pO2 ABG HCO3 ABG O2 Saturation ABG Base Excess ABG Hemoglobin ABG Oxyhemoglobin ABG Sodium ABG Potassium ABG Chloride ABG Glucose Oxyhemoglobin Sodium Potassium 5.2 H Chloride Carbon Dioxide BUN 47 H Creatinine 2.0 H Glucose 136 H POC Glucose Calcium Magnesium AST 64 H ALT 448 H Ammonia Total Creatine Kinase Troponin T C-Reactive Protein NT-Pro-B Natriuret Pep Albumin 3.4 L Triglycerides HDL Cholesterol Arterial Blood Glucose Urine WBC (Auto) Urine Creatinine 128.6 H Urine Total Protein Salicylates Acetaminophen 05/27/21 05/27/21 05/27/21 08:00 10:15 11:48 WBC RBC Hgb Hct MCV MCHC RDW Plt Count Lymph % (Auto) [place] % (Auto) Lymph # (Auto) [place] # (Auto) Seg Neutrophils % Seg Neuts % (Manual) Lymphocytes % (Manual) Seg Neutrophils # Seg Neutrophils # Man Lymphocytes # (Manual) PT INR APTT D-Dimer ABG pH 7.300 L POC ABG pCO2 POC ABG pO2 ABG pO2 42.1 L ABG HCO3 ABG O2 Saturation 72.8 L ABG Base Excess ABG Hemoglobin 12.7 L ABG Oxyhemoglobin ABG Sodium ABG Potassium ABG Chloride ABG Glucose Oxyhemoglobin 71.4 L Sodium Potassium Chloride Carbon Dioxide BUN 52 H Creatinine 1.8 H Glucose 171 H POC Glucose 139 H Calcium 8.3 L Magnesium AST ALT Ammonia Total Creatine Kinase Troponin T C-Reactive Protein NT-Pro-B Natriuret Pep Albumin Triglycerides HDL Cholesterol Arterial Blood Glucose Urine WBC (Auto) Urine Creatinine Urine Total Protein Salicylates Acetaminophen 05/27/21 05/28/21 05/28/21 17:13 05:30 11:37 WBC RBC Hgb Hct MCV MCHC RDW Plt Count Lymph % (Auto) [place] % (Auto) Lymph # (Auto) [place] # (Auto) Seg Neutrophils % Seg Neuts % (Manual) Lymphocytes % (Manual) Seg Neutrophils # Seg Neutrophils # Man Lymphocytes # (Manual) PT INR APTT D-Dimer ABG pH POC ABG pCO2 POC ABG pO2 ABG pO2 ABG HCO3 ABG O2 Saturation ABG Base Excess ABG Hemoglobin ABG Oxyhemoglobin ABG Sodium ABG Potassium ABG Chloride ABG Glucose Oxyhemoglobin Sodium Potassium Chloride Carbon Dioxide BUN 53 H Creatinine 1.6 H Glucose 118 H POC Glucose 145 H 115 H Calcium 8.0 L Magnesium 2.40 H AST ALT Ammonia Total Creatine Kinase Troponin T C-Reactive Protein NT-Pro-B Natriuret Pep Albumin Triglycerides HDL Cholesterol Arterial Blood Glucose Urine WBC (Auto) Urine Creatinine Urine Total Protein Salicylates Acetaminophen 05/28/21 05/28/21 05/29/21 13:32 Unknown 09:43 WBC RBC Hgb 11.7 L Hct MCV MCHC 31 L RDW 21.3 H Plt Count 121 L Lymph % (Auto) [place] % (Auto) Lymph # (Auto) [place] # (Auto) Seg Neutrophils % Seg Neuts % (Manual) Lymphocytes % (Manual) Seg Neutrophils # Seg Neutrophils # Man Lymphocytes # (Manual) PT INR APTT D-Dimer ABG pH 7.339 L POC ABG pCO2 POC ABG pO2 ABG pO2 53.7 L 60.9 L ABG HCO3 ABG O2 Saturation 86.5 L 90.7 L ABG Base Excess ABG Hemoglobin 12.3 L 12.0 L ABG Oxyhemoglobin ABG Sodium ABG Potassium ABG Chloride ABG Glucose Oxyhemoglobin 84.6 L 88.9 L Sodium Potassium Chloride Carbon Dioxide BUN Creatinine Glucose POC Glucose Calcium Magnesium AST ALT Ammonia Total Creatine Kinase Troponin T C-Reactive Protein NT-Pro-B Natriuret Pep Albumin Triglycerides HDL Cholesterol Arterial Blood Glucose Urine WBC (Auto) Urine Creatinine Urine Total Protein Salicylates Acetaminophen 05/29/21 05/29/21 05/29/21 13:40 13:40 13:40 WBC RBC Hgb Hct MCV MCHC RDW 20.9 H Plt Count 103 L Lymph % (Auto) [place] % (Auto) Lymph # (Auto) [place] # (Auto) Seg Neutrophils % Seg Neuts % (Manual) Lymphocytes % (Manual) Seg Neutrophils # Seg Neutrophils # Man Lymphocytes # (Manual) PT 15.3 H INR APTT D-Dimer ABG pH POC ABG pCO2 POC ABG pO2 ABG pO2 ABG HCO3 ABG O2 Saturation ABG Base Excess ABG Hemoglobin ABG Oxyhemoglobin ABG Sodium ABG Potassium ABG Chloride ABG Glucose Oxyhemoglobin Sodium Potassium Chloride Carbon Dioxide BUN Creatinine 1.7 H Glucose POC Glucose Calcium Magnesium AST ALT Ammonia Total Creatine Kinase Troponin T C-Reactive Protein NT-Pro-B Natriuret Pep Albumin Triglycerides HDL Cholesterol Arterial Blood Glucose Urine WBC (Auto) Urine Creatinine Urine Total Protein Salicylates Acetaminophen 05/30/21 05/30/21 05/30/21 04:42 04:42 07:47 WBC RBC Hgb 11.7 L Hct MCV 95 H MCHC RDW 20.8 H Plt Count 106 L Lymph % (Auto) [place] % (Auto) Lymph # (Auto) [place] # (Auto) Seg Neutrophils % Seg Neuts % (Manual) Lymphocytes % (Manual) Seg Neutrophils # Seg Neutrophils # Man Lymphocytes # (Manual) PT INR APTT D-Dimer ABG pH POC ABG pCO2 POC ABG pO2 ABG pO2 ABG HCO3 ABG O2 Saturation ABG Base Excess ABG Hemoglobin ABG Oxyhemoglobin ABG Sodium ABG Potassium ABG Chloride ABG Glucose Oxyhemoglobin Sodium 135 L Potassium Chloride Carbon Dioxide BUN 63 H 63 H Creatinine 1.6 H 1.6 H Glucose POC Glucose Calcium 8.2 L Magnesium AST ALT Ammonia Total Creatine Kinase Troponin T C-Reactive Protein NT-Pro-B Natriuret Pep Albumin Triglycerides HDL Cholesterol Arterial Blood Glucose Urine WBC (Auto) Urine Creatinine Urine Total Protein Salicylates Acetaminophen 05/30/21 05/31/21 05/31/21 09:22 05:16 05:16 WBC RBC Hgb 11.1 L Hct MCV MCHC 31 L RDW 20.8 H Plt Count 116 L Lymph % (Auto) [place] % (Auto) Lymph # (Auto) [place] # (Auto) Seg Neutrophils % Seg Neuts % (Manual) Lymphocytes % (Manual) Seg Neutrophils # Seg Neutrophils # Man Lymphocytes # (Manual) PT INR APTT D-Dimer ABG pH 7.323 L POC ABG pCO2 POC ABG pO2 ABG pO2 107.0 H ABG HCO3 ABG O2 Saturation ABG Base Excess ABG Hemoglobin 12.4 L ABG Oxyhemoglobin ABG Sodium ABG Potassium ABG Chloride ABG Glucose Oxyhemoglobin Sodium Potassium Chloride Carbon Dioxide BUN 62 H Creatinine 1.9 H Glucose 103 H POC Glucose Calcium Magnesium AST ALT Ammonia Total Creatine Kinase Troponin T C-Reactive Protein NT-Pro-B Natriuret Pep Albumin Triglycerides HDL Cholesterol Arterial Blood Glucose Urine WBC (Auto) Urine Creatinine Urine Total Protein Salicylates Acetaminophen 05/31/21 05/31/21 05/31/21 05:17 16:49 Unknown WBC RBC Hgb Hct MCV MCHC RDW Plt Count Lymph % (Auto) [place] % (Auto) Lymph # (Auto) [place] # (Auto) Seg Neutrophils % Seg Neuts % (Manual) Lymphocytes % (Manual) Seg Neutrophils # Seg Neutrophils # Man Lymphocytes # (Manual) PT INR APTT D-Dimer ABG pH POC ABG pCO2 48.4 H POC ABG pO2 63.0 L ABG pO2 ABG HCO3 ABG O2 Saturation ABG Base Excess ABG Hemoglobin 11.9 L ABG Oxyhemoglobin 91.4 L ABG Sodium ABG Potassium 4.6 H ABG Chloride ABG Glucose 110 H Oxyhemoglobin Sodium Potassium Chloride Carbon Dioxide BUN Creatinine Glucose POC Glucose 109 H 107 H Calcium Magnesium AST ALT Ammonia Total Creatine Kinase Troponin T C-Reactive Protein NT-Pro-B Natriuret Pep Albumin Triglycerides HDL Cholesterol Arterial Blood Glucose 110 H Urine WBC (Auto) Urine Creatinine Urine Total Protein Salicylates Acetaminophen 06/01/21 06/01/21 06/01/21 03:06 07:00 07:00 WBC RBC Hgb 11.2 L Hct MCV 96 H MCHC 31 L RDW 20.6 H Plt Count Lymph % (Auto) [place] % (Auto) Lymph # (Auto) [place] # (Auto) Seg Neutrophils % Seg Neuts % (Manual) Lymphocytes % (Manual) Seg Neutrophils # Seg Neutrophils # Man Lymphocytes # (Manual) PT INR APTT D-Dimer ABG pH POC ABG pCO2 POC ABG pO2 55.0 L ABG pO2 ABG HCO3 ABG O2 Saturation ABG Base Excess ABG Hemoglobin 10.9 L ABG Oxyhemoglobin 87.5 L ABG Sodium 127.4 L ABG Potassium 4.6 H ABG Chloride 108.0 H ABG Glucose 108 H Oxyhemoglobin Sodium Potassium Chloride Carbon Dioxide BUN 59 H Creatinine 1.6 H Glucose 104 H POC Glucose Calcium Magnesium AST ALT Ammonia Total Creatine Kinase Troponin T C-Reactive Protein NT-Pro-B Natriuret Pep Albumin Triglycerides HDL Cholesterol Arterial Blood Glucose 108 H Urine WBC (Auto) Urine Creatinine Urine Total Protein Salicylates Acetaminophen 06/01/21 06/01/21 06/02/21 17:09 23:42 04:23 WBC RBC 3.48 L Hgb 10.1 L Hct 33.1 L MCV 95 H MCHC 31 L RDW 19.9 H Plt Count Lymph % (Auto) [place] % (Auto) Lymph # (Auto) [place] # (Auto) Seg Neutrophils % Seg Neuts % (Manual) Lymphocytes % (Manual) Seg Neutrophils # Seg Neutrophils # Man Lymphocytes # (Manual) PT INR APTT D-Dimer ABG pH POC ABG pCO2 POC ABG pO2 ABG pO2 ABG HCO3 ABG O2 Saturation ABG Base Excess ABG Hemoglobin ABG Oxyhemoglobin ABG Sodium ABG Potassium ABG Chloride ABG Glucose Oxyhemoglobin Sodium Potassium Chloride Carbon Dioxide BUN Creatinine Glucose POC Glucose 106 H 109 H Calcium Magnesium AST ALT Ammonia Total Creatine Kinase Troponin T C-Reactive Protein NT-Pro-B Natriuret Pep Albumin Triglycerides HDL Cholesterol Arterial Blood Glucose Urine WBC (Auto) Urine Creatinine Urine Total Protein Salicylates Acetaminophen 06/02/21 06/02/21 06/02/21 04:23 05:38 05:40 WBC RBC Hgb Hct MCV MCHC RDW Plt Count Lymph % (Auto) [place] % (Auto) Lymph # (Auto) [place] # (Auto) Seg Neutrophils % Seg Neuts % (Manual) Lymphocytes % (Manual) Seg Neutrophils # Seg Neutrophils # Man Lymphocytes # (Manual) PT INR APTT D-Dimer ABG pH POC ABG pCO2 POC ABG pO2 ABG pO2 ABG HCO3 ABG O2 Saturation ABG Base Excess ABG Hemoglobin ABG Oxyhemoglobin ABG Sodium ABG Potassium ABG Chloride ABG Glucose Oxyhemoglobin Sodium Potassium Chloride Carbon Dioxide BUN 61 H Creatinine 1.7 H Glucose 119 H POC Glucose 49 L 107 H Calcium Magnesium AST ALT Ammonia Total Creatine Kinase Troponin T C-Reactive Protein NT-Pro-B Natriuret Pep Albumin Triglycerides HDL Cholesterol Arterial Blood Glucose Urine WBC (Auto) Urine Creatinine Urine Total Protein Salicylates Acetaminophen 06/02/21 06/02/21 06/03/21 10:01 11:26 04:10 WBC RBC Hgb Hct MCV MCHC RDW Plt Count Lymph % (Auto) [place] % (Auto) Lymph # (Auto) [place] # (Auto) Seg Neutrophils % Seg Neuts % (Manual) Lymphocytes % (Manual) Seg Neutrophils # Seg Neutrophils # Man Lymphocytes # (Manual) PT INR APTT D-Dimer ABG pH 7.315 L POC ABG pCO2 POC ABG pO2 62.1 L ABG pO2 ABG HCO3 ABG O2 Saturation ABG Base Excess ABG Hemoglobin 10.8 L ABG Oxyhemoglobin 91.0 L ABG Sodium 133.5 L ABG Potassium 5.0 H ABG Chloride 109.0 H ABG Glucose 124 H Oxyhemoglobin Sodium Potassium Chloride Carbon Dioxide BUN Creatinine Glucose POC Glucose 117 H Calcium Magnesium AST ALT Ammonia Total Creatine Kinase Troponin T C-Reactive Protein NT-Pro-B Natriuret Pep Albumin Triglycerides 830 H HDL Cholesterol Arterial Blood Glucose 124 H Urine WBC (Auto) Urine Creatinine Urine Total Protein Salicylates Acetaminophen 06/03/21 06/03/21 06/03/21 04:10 04:10 05:36 WBC RBC 3.25 L Hgb 9.9 L Hct 31.8 L MCV 98 H MCHC 31 L RDW 19.9 H Plt Count Lymph % (Auto) 6.2 L [place] % (Auto) 13.1 H Lymph # (Auto) 0.5 L [place] # (Auto) 1.1 H Seg Neutrophils % Seg Neuts % (Manual) Lymphocytes % (Manual) Seg Neutrophils # Seg Neutrophils # Man Lymphocytes # (Manual) PT INR APTT D-Dimer ABG pH POC ABG pCO2 POC ABG pO2 ABG pO2 ABG HCO3 ABG O2 Saturation ABG Base Excess ABG Hemoglobin ABG Oxyhemoglobin ABG Sodium ABG Potassium ABG Chloride ABG Glucose Oxyhemoglobin Sodium 136 L Potassium Chloride Carbon Dioxide 20 L BUN 57 H Creatinine 1.7 H Glucose 108 H POC Glucose 114 H Calcium 8.2 L Magnesium AST ALT Ammonia Total Creatine Kinase Troponin T C-Reactive Protein NT-Pro-B Natriuret Pep Albumin Triglycerides HDL Cholesterol Arterial Blood Glucose Urine WBC (Auto) Urine Creatinine Urine Total Protein Salicylates Acetaminophen 06/03/21 06/03/21 06/03/21 06:55 13:06 23:30 WBC RBC Hgb Hct MCV MCHC RDW Plt Count Lymph % (Auto) [place] % (Auto) Lymph # (Auto) [place] # (Auto) Seg Neutrophils % Seg Neuts % (Manual) Lymphocytes % (Manual) Seg Neutrophils # Seg Neutrophils # Man Lymphocytes # (Manual) PT INR APTT D-Dimer ABG pH 7.298 L POC ABG pCO2 POC ABG pO2 67.4 L ABG pO2 ABG HCO3 ABG O2 Saturation ABG Base Excess ABG Hemoglobin 11.7 L ABG Oxyhemoglobin 91.2 L ABG Sodium 134.3 L ABG Potassium 4.7 H ABG Chloride 108.0 H ABG Glucose 110 H Oxyhemoglobin Sodium Potassium Chloride Carbon Dioxide BUN Creatinine Glucose POC Glucose 106 H 106 H Calcium Magnesium AST ALT Ammonia Total Creatine Kinase Troponin T C-Reactive Protein NT-Pro-B Natriuret Pep Albumin Triglycerides HDL Cholesterol Arterial Blood Glucose 110 H Urine WBC (Auto) Urine Creatinine Urine Total Protein Salicylates Acetaminophen 06/04/21 06/04/21 06/04/21 05:00 05:15 05:15 WBC RBC 3.27 L Hgb 9.7 L Hct 31.6 L MCV 97 H MCHC 31 L RDW 19.3 H Plt Count Lymph % (Auto) [place] % (Auto) Lymph # (Auto) [place] # (Auto) Seg Neutrophils % Seg Neuts % (Manual) Lymphocytes % (Manual) Seg Neutrophils # Seg Neutrophils # Man Lymphocytes # (Manual) PT INR APTT D-Dimer ABG pH 7.293 L POC ABG pCO2 POC ABG pO2 ABG pO2 69.1 L ABG HCO3 ABG O2 Saturation 92.3 L ABG Base Excess -4.0 L ABG Hemoglobin 8.9 L ABG Oxyhemoglobin ABG Sodium ABG Potassium ABG Chloride ABG Glucose Oxyhemoglobin 90.3 L Sodium Potassium Chloride Carbon Dioxide 21 L BUN 60 H Creatinine 1.7 H Glucose 106 H POC Glucose Calcium Magnesium AST ALT Ammonia Total Creatine Kinase Troponin T C-Reactive Protein NT-Pro-B Natriuret Pep Albumin 2.7 L Triglycerides HDL Cholesterol Arterial Blood Glucose Urine WBC (Auto) Urine Creatinine Urine Total Protein Salicylates Acetaminophen 06/04/21 06/04/21 06/04/21 05:37 13:39 13:54 WBC RBC 3.07 L Hgb 8.9 L Hct 29.5 L MCV 96 H MCHC 30 L RDW 19.4 H Plt Count Lymph % (Auto) [place] % (Auto) Lymph # (Auto) [place] # (Auto) Seg Neutrophils % Seg Neuts % (Manual) Lymphocytes % (Manual) Seg Neutrophils # Seg Neutrophils # Man Lymphocytes # (Manual) PT INR APTT D-Dimer ABG pH POC ABG pCO2 POC ABG pO2 ABG pO2 ABG HCO3 ABG O2 Saturation ABG Base Excess ABG Hemoglobin ABG Oxyhemoglobin ABG Sodium ABG Potassium ABG Chloride ABG Glucose Oxyhemoglobin Sodium Potassium Chloride Carbon Dioxide BUN Creatinine Glucose POC Glucose 115 H Calcium Magnesium AST ALT Ammonia Total Creatine Kinase Troponin T C-Reactive Protein NT-Pro-B Natriuret Pep Albumin Triglycerides HDL Cholesterol Arterial Blood Glucose Urine WBC (Auto) 17.0 H Urine Creatinine Urine Total Protein Salicylates Acetaminophen 06/04/21 06/04/21 06/05/21 13:56 23:17 04:30 WBC RBC 3.07 L Hgb 9.0 L Hct 29.6 L MCV 97 H MCHC 30 L RDW 19.1 H Plt Count Lymph % (Auto) [place] % (Auto) Lymph # (Auto) [place] # (Auto) Seg Neutrophils % Seg Neuts % (Manual) Lymphocytes % (Manual) Seg Neutrophils # Seg Neutrophils # Man Lymphocytes # (Manual) PT INR APTT D-Dimer ABG pH POC ABG pCO2 POC ABG pO2 ABG pO2 ABG HCO3 ABG O2 Saturation ABG Base Excess ABG Hemoglobin ABG Oxyhemoglobin ABG Sodium ABG Potassium ABG Chloride ABG Glucose Oxyhemoglobin Sodium Potassium Chloride 108.8 H Carbon Dioxide 21 L BUN 58 H Creatinine 1.8 H Glucose 105 H POC Glucose 108 H Calcium Magnesium AST ALT Ammonia Total Creatine Kinase Troponin T C-Reactive Protein NT-Pro-B Natriuret Pep Albumin Triglycerides HDL Cholesterol Arterial Blood Glucose Urine WBC (Auto) Urine Creatinine Urine Total Protein Salicylates Acetaminophen 06/05/21 06/05/21 06/05/21 04:30 05:41 09:07 WBC RBC Hgb Hct MCV MCHC RDW Plt Count Lymph % (Auto) [place] % (Auto) Lymph # (Auto) [place] # (Auto) Seg Neutrophils % Seg Neuts % (Manual) Lymphocytes % (Manual) Seg Neutrophils # Seg Neutrophils # Man Lymphocytes # (Manual) PT INR APTT D-Dimer ABG pH 7.287 L POC ABG pCO2 POC ABG pO2 ABG pO2 79.5 L ABG HCO3 ABG O2 Saturation ABG Base Excess -4.2 L ABG Hemoglobin 8.6 L ABG Oxyhemoglobin ABG Sodium ABG Potassium ABG Chloride ABG Glucose Oxyhemoglobin 94.9 L Sodium Potassium Chloride 108.5 H Carbon Dioxide 21 L BUN 60 H Creatinine 1.7 H Glucose 110 H POC Glucose 111 H Calcium Magnesium AST ALT Ammonia Total Creatine Kinase Troponin T C-Reactive Protein NT-Pro-B Natriuret Pep Albumin Triglycerides HDL Cholesterol Arterial Blood Glucose Urine WBC (Auto) Urine Creatinine Urine Total Protein Salicylates Acetaminophen 06/05/21 11:39 WBC RBC Hgb Hct MCV MCHC RDW Plt Count Lymph % (Auto) [place] % (Auto) Lymph # (Auto) [place] # (Auto) Seg Neutrophils % Seg Neuts % (Manual) Lymphocytes % (Manual) Seg Neutrophils # Seg Neutrophils # Man Lymphocytes # (Manual) PT INR APTT D-Dimer ABG pH POC ABG pCO2 POC ABG pO2 ABG pO2 ABG HCO3 ABG O2 Saturation ABG Base Excess ABG Hemoglobin ABG Oxyhemoglobin ABG Sodium ABG Potassium ABG Chloride ABG Glucose Oxyhemoglobin Sodium Potassium Chloride Carbon Dioxide BUN Creatinine Glucose POC Glucose 111 H Calcium Magnesium AST ALT Ammonia Total Creatine Kinase Troponin T C-Reactive Protein NT-Pro-B Natriuret Pep Albumin Triglycerides HDL Cholesterol Arterial Blood Glucose Urine WBC (Auto) Urine Creatinine Urine Total Protein Salicylates Acetaminophen Chest x-ray: other (none today) Allied health notes reviewed: nursing
--- NOTE | 2021-06-05 15:04 | Progress Note ---
Assessment and Plan Cultures: Blood culture 06/02/2021 no growth so far Blood culture 05/23/2021 1 bottle coag negative staph Urine culture 05/23/2021 no growth Urine culture 06/04/2021 no growth so far A/P: 41-year-old man past medical history obesity presented to hospital in respiratory failure. #Acute hypoxic respiratory failure: Covid negative. Currently on the vent. #New onset fevers: Unclear etiology, chest x-ray without acute change, procalcitonin approximately the same as previous. Urinalysis without convincing evidence of infection. #FERMIN: renally dose medications. Improving. #Coag negative Staph bacteremia: likely contaminant. Recs: -Start vancomycin dosed per pharmacy goal trough 10-20. -Start renally dosed cefepime -Obtain tracheal aspirate cultures -Urinalysis with mild pyuria in the setting of significant hematuria. -Persistent fevers, unclear etiology at the present time. -Considering persistent fevers would exchange any indwelling lines. Thank you for the consult, we will continue to follow. Dr. Brasher taking over Mo nday. Mere Cesar MD [facility] ([facility]) O: [phone] F: [phone] Subjective Date of service: 06/05/21 Principal diagnosis: Acute hypoxemic and hypercapnic resp failure; PUI COVID-19; Pneumonia; FERMIN Interval history: Persistently febrile, fever up to 101.1. White count normal at 8.2. Cultures all remain negative. Remains on the vent. No acute issues overnight. Objective - Exam Narrative Exam: Physical Exam: Constitutional: Intubated, sedated Head, Ears, Nose: Normocephalic, atraumatic. Eyes: Conjunctivae/corneas clear. No icterus. No ptosis. Neck: Intubated Oral: Intubated Cardiovascular: S1, S2 normal. Respiratory: Good air entry, clear to auscultation bilaterally GI: Soft, non-tender; bowel sounds normal. No peritoneal signs. Musculoskeletal: No pedal edema, no cyanosis. Skin: No rash or abscess Hem/Lymphatic: No palpable cervical or supraclavicular nodes. No lymphangitis Psych: No agitation Neurological: No agitation - Constitutional Vitals: Vital Signs Temp Pulse Resp BP Pulse Ox 100 F H 121 H 19 128/65 93 06/05/21 12:00 06/05/21 14:15 06/05/21 14:15 06/05/21 14:15 06/05/21 14:15 Temperature -Last 24 Hours Temperature 100 F Temperature 101.1 F Temperature 100.8 F Temperature 100.8 F Temperature 100.0 F Temperature 100.6 F Temperature 100.4 F Temperature 100.4 F - Labs CBC & Chem 7: 06/05/21 04:30 06/05/21 04:30 Labs: Abnormal lab results 06/04/21 06/04/21 06/05/21 Range/Units 13:56 23:17 04:30 RBC 3.07 L (3.65-5.03) M/mm3 Hgb 9.0 L (11.8-15.2) gm/dl Hct 29.6 L (35.5-45.6) % MCV 97 H (84-94) fl MCHC 30 L (32-34) % RDW 19.1 H (13.2-15.2) % ABG pH (7.350-7.450) pH Units ABG pO2 (80.0-90.0) mm Hg ABG Base Excess (-2.0-3.0) mmol/L ABG Hemoglobin (14.0-18.0) gm/dl Oxyhemoglobin (95.0-99.0) % Chloride 108.8 H (98-107) mmol/L Carbon Dioxide 21 L (22-30) mmol/L BUN 58 H (9-20) mg/dL Creatinine 1.8 H (0.8-1.3) mg/dL Glucose 105 H (75-100) mg/dL POC Glucose 108 H (70-105) mg/dL 06/05/21 06/05/21 06/05/21 Range/Units 04:30 05:41 09:07 RBC (3.65-5.03) M/mm3 Hgb (11.8-15.2) gm/dl Hct (35.5-45.6) % MCV (84-94) fl MCHC (32-34) % RDW (13.2-15.2) % ABG pH 7.287 L (7.350-7.450) pH Units ABG pO2 79.5 L (80.0-90.0) mm Hg ABG Base Excess -4.2 L (-2.0-3.0) mmol/L ABG Hemoglobin 8.6 L (14.0-18.0) gm/dl Oxyhemoglobin 94.9 L (95.0-99.0) % Chloride 108.5 H (98-107) mmol/L Carbon Dioxide 21 L (22-30) mmol/L BUN 60 H (9-20) mg/dL Creatinine 1.7 H (0.8-1.3) mg/dL Glucose 110 H (75-100) mg/dL POC Glucose 111 H (70-105) mg/dL 06/05/21 Range/Units 11:39 RBC (3.65-5.03) M/mm3 Hgb (11.8-15.2) gm/dl Hct (35.5-45.6) % MCV (84-94) fl MCHC (32-34) % RDW (13.2-15.2) % ABG pH (7.350-7.450) pH Units ABG pO2 (80.0-90.0) mm Hg ABG Base Excess (-2.0-3.0) mmol/L ABG Hemoglobin (14.0-18.0) gm/dl Oxyhemoglobin (95.0-99.0) % Chloride (98-107) mmol/L Carbon Dioxide (22-30) mmol/L BUN (9-20) mg/dL Creatinine (0.8-1.3) mg/dL Glucose (75-100) mg/dL POC Glucose 111 H (70-105) mg/dL
--- NOTE | 2021-06-05 18:09 | Progress Note ---
Assessment and Plan Assessment and plan: This is a 41-year-old male with past medical history of HTN, REVA and morbid obesity who presented to the ER with severe respiratory distress and eventually was intubated for acute respiratory failure secondatory to possible pneumonia vs pulmonary edema. Patient was also found to have an FERMIN. Patient remains intubated and in the ICU for further management. Hospital Course to Date: 05/24/2021: Patient intubated and sedated. VQ scan ordered secondary to elevated D-dimer. Cardiology consulted secondary to elevated troponin and elevated BNP. Echocardiogram ordered and pending. 05/25/2021: Patient still intubated. Responsive to commands. Hypotensive, norepinephrine increased to 15mcg. Unable to get V/Q scan due to body habitus. 05/26: Overnight patient experienced desaturation to the 80s and FiO2 was increased. This morning on ABG patient exhibited hypoxemia and FiO2 was unchanged. [facility] later increased PEEP and decrease FiO2. Nephrology was consulted due to no recovery in renal function noted. Urine lites were ordered. Hyperkalemia treated medically. 05/27: Patient remains sedated on fentanyl and propofol, [facility] will taper Solu- Medrol and repeat ABG in 1899. Patient received 40 mg of Lasix x1. Slight improvement to renal function noted 05/28: [facility] has started revatio for pulmonary hypertension, we will repeat Lasix today as patient had improvement in renal function. No acute events reported overnight. 05/29: 1900 ABG with improved hypoxia, good UOP noted from lasix. Repeat labs for am. no acute events reported overnight 05/30: FWF decreased. Garcia catheter replaced due to sediment. Family updated today at bedside. 05/31: noted to have persistent tachycardia, given fent bolus without improvement. EKG showed ST, passive leg raise by RN showed decrease in tachycardia therefore given LR. Noted increase in Cr today. MIVF for 2 liters started by [facility]. 06/01/21- Remains intubated, sedation was increased this am due to agitation, Levo was initiated due to hypotension. Patient remains on IVF, D/C once current bag is completed. D/w CCM plan to gently wean vent setting for SPO2 goal above 92%. 06/02/21- Patient remains on the vent, on max support this am. Per RN patient desated this am after he was turned, SPO2 was sustaining in the low 80s. Patient is also spiking temp, TMAX 101 this am, WBC wnl. Orders placed for stat CXR, blood cultureX2, and procal. Will hold off on AbX for now. Will continue to trend CBC, am labs ordered 06/03/21- Patient remains on the vent and sedated. High triglyceride level this am, propofol stopped and seroquel added BID. No fever overnight, wbcs remains stable, pending B.cult result. Continue to trend CBC 06/04/21- Patient remains on the vent, no longer on sedation. Easily arousable, follow commands at time. Persistent fever, wbcs remains stable, B.cultX2 pending, procal normal, ID consulted. 06/05/21- Patient remains on the vent on fentanyl gtt RASS -1. Back up to 100% Fio2 due to low SPO2 overnight, this am ABG noted, plan to wean FIO2 for a SPO2 goal abover 90%. Febrile overnight, continue current IV Abx per ID. Assessment and Plan #Neuro: Acute metabolic encephalopathy -CT head and C-spine negative for acute process -TSH WNL -Elevated triglyceride 830, propofol D/C -Seroquel added BID -Patient off sedation -Avoid delirium -Reorientation as needed -Maintain sleep-wake cycle #CV:Hypotension #Possible CHF #h/o HTN -Cardiology consulted, appreciate recommendations -05/24 echocardiogram showed mild to moderate dilated right heart chambers, LVEF 55% -ProBNP 16094 -Diuretic on hold due to worsen kidney function -Cardiology recommends conservative cardiac management -Maintain adequate perfusion -Continue rehydration with cont. IVF -Off pressors -maintain MAP above 65 -Continue AC- Eliquis #Acute hypoxemic and hypercapnic respiratory failure/ARDS #H/o sleep apnea -Patient intubated on 05/23 -vent settings:PRVC- 100%,12,25,450 -AM ABG noted -CCM consulted, appreciate recommendations -Continue IV Steroids and Nebs per CCM -VAP bundle addressed -Aspiration precaution HOB above 30 -Daily SBT and SAT trials as tolerated -Daily ABG and CXR -Continue SPO2 monitoring for SPO2 goal above 92% #GI: Transaminitis- improved #morbid obesity -NTR consult for tube feedings -Continue enteral nutrition -Continue BR- senokot -Continue PPI- Pepcid -Trend LFTs #: Acute renal failure secondary to vasomotor nephropathy -[place] ProBNP was 15361, was diuresed, now on hold -FENa 0.41% indicating prerenal -Nephrology consulted, appreciate recommendations -Garcia catheter for strict intake and output -Avoid nephrotoxic medications -Renally dose medications -Continue IVF for now -Continue to monitor renal function and electrolytes, replete as needed #Heme: Elevated D-dimer, h/o PE/DVT -VQ scan unable to be performed due to patient being intubated -CTA head unable to be performed due to renal function and size -restarted on home eliquis -SCDs to bilateral lower extremity while in bed -Echocardiogram shows no right heart strain -Trend CBC -Transfuse for hemoglobin less than 7 -Bilateral lower extremity Doppler ultrasound negative for DVT #ID: CAP #leukopenia- improved #coag negative Staphylococcus in blood culture 07/26 -CT showed right upper lobe pneumonia -05/23 UC, tracheal aspirate no growth to date -05/23 blood culture with coag negative staph in 1 of 2 bottles -Persistent fever, WBCs wnl -ID consulted -Completed IV abx course- cefepime and azithromycin -Daily CBC monitor #Endo: Glycemic control -Accu-Cheks every 6 while on tube feedings -SSI if hyperglycemic -Avoid hypoglycemia -Target blood glucose while critically ill less than 180 The high probability of a clinically significant, sudden or life threatening deterioration of the [Neuro,CV,pulm] system(s) required my full and direct attention, intervention and personal management. The aggregate critical care time was [60] minutes. This time is in addition to time spent performing reported procedures but includes the following: [x] Data Review and interpretation [x] Patient assessment and monitoring of vital signs [x] Documentation [x] Medication orders and management Disposition Plan: ICU Total Time Spent with Patient (Minutes): 60 History Interval history: Patient seen and examined at the bedside. Patient remains on the vent and on fentanyl gtt, RASS -1. Febrile overnight with low SPO2 in the 80s, Fio2 increased back to 100%. Hospitalist Physical - Constitutional Vitals: Temp Pulse Resp BP Pulse Ox 100 F H 128 H 25 H 139/76 94 06/05/21 12:00 06/05/21 15:49 06/05/21 15:49 06/05/21 15:47 06/05/21 15:47 General appearance: Present: no acute distress, obese, other (Intubated) - EENT Eyes: Present: PERRL ENT: hearing intact - Respiratory Respiratory effort: normal Respiratory: bilateral: wheezing - Cardiovascular Rhythm: regular Heart Sounds: Present: S1 & S2 - Extremities Extremities: no ischemia, pulses intact, pulses symmetrical Extremity abnormal: edema - Peripheral Assessment Generalized Edema Type: Non-pitting Edema Degree: 2+ Capillary Refill: < 3 seconds Skin Temperature: Warm Peripheral Pulses: within normal limits - Abdominal General gastrointestinal: soft, non-tender, normal bowel sounds - Integumentary Integumentary: Present: warm, dry - Psychiatric Psychiatric: other (Intubated/sedated) - Neurologic Neurologic: other (Intubated/sedated) - Allied Health Allied health notes reviewed: nursing HEART Score - HEART Score Troponin: Troponin T 0.038 ng/mL (0.00-0.029) H 05/23/21 15:09 Results - Labs CBC & Chem 7: 06/05/21 04:30 06/05/21 04:30 Labs: Laboratory Last Values WBC 8.2 K/mm3 (4.5-11.0) 06/05/21 04:30 RBC 3.07 M/mm3 (3.65-5.03) L 06/05/21 04:30 Hgb 9.0 gm/dl (11.8-15.2) L 06/05/21 04:30 Hct 29.6 % (35.5-45.6) L 06/05/21 04:30 MCV 97 fl (84-94) H 06/05/21 04:30 MCH 29 pg (28-32) 06/05/21 04:30 MCHC 30 % (32-34) L 06/05/21 04:30 RDW 19.1 % (13.2-15.2) H 06/05/21 04:30 Plt Count 172 K/mm3 (140-440) 06/05/21 04:30 Lymph % (Auto) 6.2 % (13.4-35.0) L 06/03/21 04:10 [place] % (Auto) 13.1 % (0.0-7.3) H 06/03/21 04:10 Eos % (Auto) 3.2 % (0.0-4.3) 06/03/21 04:10 Baso % (Auto) 0.4 % (0.0-1.8) 06/03/21 04:10 Lymph # (Auto) 0.5 K/mm3 (1.2-5.4) L 06/03/21 04:10 [place] # (Auto) 1.1 K/mm3 (0.0-0.8) H 06/03/21 04:10 Eos # (Auto) 0.3 K/mm3 (0.0-0.4) 06/03/21 04:10 Baso # (Auto) 0.0 K/mm3 (0.0-0.1) 06/03/21 04:10 Add Manual Diff Complete 05/24/21 04:55 Total Counted 100 05/24/21 04:55 Seg Neutrophils % Secretary Administrative Assistant 06/03/21 04:10 Seg Neuts % (Manual) 97.0 % (40.0-70.0) H 05/24/21 04:55 Lymphocytes % (Manual) 3.0 % (13.4-35.0) L 05/24/21 04:55 Nucleated RBC % Not Reportable 05/24/21 04:55 Seg Neutrophils # 6.2 K/mm3 (1.8-7.7) 06/03/21 04:10 Seg Neutrophils # Man 8.4 K/mm3 (1.8-7.7) H 05/24/21 04:55 Band Neutrophils # 0.0 K/mm3 05/24/21 04:55 Lymphocytes # (Manual) 0.3 K/mm3 (1.2-5.4) L 05/24/21 04:55 Abs React Lymphs (Man) 0.0 K/mm3 05/24/21 04:55 Monocytes # (Manual) 0.0 K/mm3 (0.0-0.8) 05/24/21 04:55 Eosinophils # (Manual) 0.0 K/mm3 (0.0-0.4) 05/24/21 04:55 Basophils # (Manual) 0.0 K/mm3 (0.0-0.1) 05/24/21 04:55 Metamyelocytes # 0.0 K/mm3 05/24/21 04:55 Myelocytes # 0.0 K/mm3 05/24/21 04:55 Promyelocytes # 0.0 K/mm3 05/24/21 04:55 Blast Cells # 0.0 K/mm3 05/24/21 04:55 WBC Morphology Not Reportable 05/24/21 04:55 Hypersegmented Neuts Not Reportable 05/24/21 04:55 Hyposegmented Neuts Not Reportable 05/24/21 04:55 Hypogranular Neuts Not Reportable 05/24/21 04:55 Smudge Cells Not Reportable 05/24/21 04:55 Toxic Granulation Not Reportable 05/24/21 04:55 Toxic Vacuolation Not Reportable 05/24/21 04:55 Dohle Bodies Not Reportable 05/24/21 04:55 Pelger-Huet Anomaly Not Reportable 05/24/21 04:55 Cynthia Rods Not Reportable 05/24/21 04:55 Platelet Estimate Consistent w auto 05/24/21 04:55 Clumped Platelets Not Reportable 05/24/21 04:55 Plt Clumps, EDTA Not Reportable 05/24/21 04:55 Large Platelets Not Reportable 05/24/21 04:55 Giant Platelets Not Reportable 05/24/21 04:55 Platelet Satelliting Not Reportable 05/24/21 04:55 Plt Morphology Comment Not Reportable 05/24/21 04:55 RBC Morphology Not Reportable 05/24/21 04:55 Dimorphic RBCs Not Reportable 05/24/21 04:55 Polychromasia Not Reportable 05/24/21 04:55 Hypochromasia Not Reportable 05/24/21 04:55 Poikilocytosis Not Reportable 05/24/21 04:55 Anisocytosis 1+ 05/24/21 04:55 Microcytosis Not Reportable 05/24/21 04:55 Macrocytosis Not Reportable 05/24/21 04:55 Spherocytes Not Reportable 05/24/21 04:55 Pappenheimer Bodies Not Reportable 05/24/21 04:55 Sickle Cells Not Reportable 05/24/21 04:55 Target Cells Not Reportable 05/24/21 04:55 Tear Drop Cells Not Reportable 05/24/21 04:55 Ovalocytes Not Reportable 05/24/21 04:55 Helmet Cells Not Reportable 05/24/21 04:55 James-Haysi Bodies Not Reportable 05/24/21 04:55 Cross Anchor Rings Not Reportable 05/24/21 04:55 Alpine Cells Not Reportable 05/24/21 04:55 Bite Cells Not Reportable 05/24/21 04:55 Crenated Cell Not Reportable 05/24/21 04:55 Elliptocytes Not Reportable 05/24/21 04:55 Acanthocytes (Spur) Not Reportable 05/24/21 04:55 Rouleaux Not Reportable 05/24/21 04:55 Hemoglobin C Crystals Not Reportable 05/24/21 04:55 Schistocytes Not Reportable 05/24/21 04:55 Malaria parasites Not Reportable 05/24/21 04:55 Uli Bodies Not Reportable 05/24/21 04:55 Hem Pathologist Commnt No 05/24/21 04:55 PT 15.3 Sec. (12.2-14.9) H 05/29/21 13:40 INR 1.09 (0.87-1.13) 05/29/21 13:40 APTT 25.7 Sec. (24.2-36.6) 05/29/21 13:40 D-Dimer 4444.85 ng/mlDDU (0-234) H 05/23/21 15:09 ABG pH 7.287 pH Units (7.350-7.450) L 06/05/21 09:07 POC ABG pCO2 47.3 mmHg (32.0-48.0) 06/03/21 06:55 ABG pCO2 47.7 mm Hg 06/05/21 09:07 POC ABG pO2 67.4 mmHg (83-108) L 06/03/21 06:55 ABG pO2 79.5 mm Hg (80.0-90.0) L 06/05/21 09:07 POC ABG HCO3 22.6 06/03/21 06:55 ABG HCO3 22.3 mmol/L (20.0-26.0) 06/05/21 09:07 ABG O2 Saturation 96.8 % (95.0-99.0) 06/05/21 09:07 ABG O2 Content 11.5 (0.0-44) 06/05/21 09:07 POC ABG Base Excess -3.9 06/03/21 06:55 ABG Base Excess -4.2 mmol/L (-2.0-3.0) L 06/05/21 09:07 ABG Hemoglobin 8.6 gm/dl (14.0-18.0) L 06/05/21 09:07 ABG Oxyhemoglobin 91.2 (94-98) L 06/03/21 06:55 ABG Carboxyhemoglobin 1.6 % (0.0-5.0) 06/05/21 09:07 ABG Methemoglobin 0.5 % (0.0-1.5) 06/05/21 09:07 ABG Sodium 134.3 mmol/L (136.0-145.0) L 06/03/21 06:55 ABG Potassium 4.7 mmol/L (3.40-4.50) H 06/03/21 06:55 ABG Chloride 108.0 mmol/L (98-107) H 06/03/21 06:55 ABG Glucose 110 mg/dL (65-95) H 06/03/21 06:55 Oxyhemoglobin 94.9 % (95.0-99.0) L 06/05/21 09:07 Carboxyhemoglobin 0.8 (0.5-1.5) 06/03/21 06:55 FiO2 100 % 06/05/21 09:07 FiO2 % 90.0 06/03/21 06:55 Sodium 139 mmol/L (137-145) 06/05/21 04:30 Potassium 4.8 mmol/L (3.6-5.0) 06/05/21 04:30 Chloride 108.5 mmol/L (98-107) H 06/05/21 04:30 Carbon Dioxide 21 mmol/L (22-30) L 06/05/21 04:30 Anion Gap 14 mmol/L 06/05/21 04:30 BUN 60 mg/dL (9-20) H 06/05/21 04:30 Creatinine 1.7 mg/dL (0.8-1.3) H 06/05/21 04:30 Estimated GFR 53 ml/min 06/05/21 04:30 BUN/Creatinine Ratio 35 % 06/05/21 04:30 Glucose 110 mg/dL (75-100) H 06/05/21 04:30 POC Glucose 111 mg/dL (70-105) H 06/05/21 11:39 Lactic Acid 1.50 mmol/L (0.7-2.0) 05/23/21 15:09 Calcium 8.7 mg/dL (8.4-10.2) 06/05/21 04:30 Phosphorus 2.90 mg/dL (2.5-4.5) 05/28/21 05:30 Magnesium 2.40 mg/dL (1.7-2.3) H 05/28/21 05:30 Total Bilirubin 0.80 mg/dL (0.1-1.2) 06/04/21 05:15 AST 17 units/L (5-40) 06/04/21 05:15 ALT 44 units/L (7-56) 06/04/21 05:15 Alkaline Phosphatase 74 units/L (35-129) 06/04/21 05:15 Ammonia 30.0 umol/L (25-60) 05/24/21 04:55 Total Creatine Kinase 48 units/L (55-170) L 05/23/21 15:09 Troponin T 0.038 ng/mL (0.00-0.029) H 05/23/21 15:09 C-Reactive Protein 10.00 mg/dL (0.00-1.30) H 05/23/21 19:10 NT-Pro-B Natriuret Pep 83653 pg/mL (0-450) H 05/23/21 15:09 Total Protein 6.8 g/dL (6.3-8.2) 06/04/21 05:15 Albumin 2.7 g/dL (3.9-5) L 06/04/21 05:15 Albumin/Globulin Ratio 0.7 % 06/04/21 05:15 Triglycerides 830 mg/dL (2-149) H 06/03/21 04:10 Cholesterol 106 mg/dL (50-199) 05/23/21 15:09 LDL Cholesterol Direct 58 mg/dL (50-130) 05/23/21 15:09 HDL Cholesterol 29 mg/dL (40-59) L 05/23/21 15:09 Cholesterol/HDL Ratio 3.65 % 05/23/21 15:09 Procalcitonin 0.82 ng/mL (<0.15) 06/02/21 13:53 TSH 2.380 mlU/mL (0.270-4.200) 05/23/21 15:09 Arterial Blood Glucose 110 mg/dL (65-95) H 06/03/21 06:55 Arterial Blood Ionized Calcium 5.0 mg/dL (4.6-5.3) 06/03/21 06:55 Urine Color Yellow (Yellow) 06/04/21 13:39 Urine Turbidity Turbid (Clear) 06/04/21 13:39 Urine pH 5.0 (5.0-7.0) 06/04/21 13:39 Ur Specific [place] 1.015 (1.003-1.030) 06/04/21 13:39 Urine Protein 100 mg/dl mg/dL (Negative) 06/04/21 13:39 Urine Glucose (UA) Neg mg/dL (Negative) 06/04/21 13:39 Urine Ketones Neg mg/dL (Negative) 06/04/21 13:39 Urine Blood Mod (Negative) 06/04/21 13:39 Urine Nitrite Neg (Negative) 06/04/21 13:39 Urine Bilirubin Neg (Negative) 06/04/21 13:39 Urine Urobilinogen 2.0 mg/dL (<2.0) 06/04/21 13:39 Ur Leukocyte Esterase Neg (Negative) 06/04/21 13:39 Urine WBC (Auto) 17.0 /HPF (0.0-6.0) H 06/04/21 13:39 Urine RBC (Auto) > 182.0 /HPF (0.0-6.0) 06/04/21 13:39 U Epithel Cells (Auto) 7.0 /HPF (0-13.0) 06/04/21 13:39 Urine Bacteria (Auto) 1+ /HPF (Negative) 05/23/21 Unknown Amorphous Crystals 3+ 06/04/21 13:39 Urine Mucus Few /HPF 06/04/21 13:39 Ur Yeast w Hyphae Few /HPF 06/04/21 13:39 Urine Yeast (Budding) 3+ /HPF 06/04/21 13:39 Urine Eosinophils 2+ (None Seen) 05/26/21 12:37 Urine Osmolality 612 Mosm/kg 05/26/21 Unknown Urine Creatinine 128.6 mg/dL (0.1-20.0) H 05/26/21 Unknown Protein/Creatinin Ratio 1.01 05/26/21 12:37 Urine Sodium 37 mmol/L 05/26/21 Unknown Urine Potassium 45.15 mmol/L 05/26/21 Unknown Urine Urea Nitrogen 989 05/26/21 Unknown Urine Total Protein 80 mg/dL (5-11.8) H 05/26/21 12:37 Nasal Screen MRSA (PCR) Positive (Negative) 05/30/21 12:00 Salicylates < 0.3 mg/dL (2.8-20.0) L 05/23/21 15:09 Urine Opiates Screen Negative 05/23/21 Unknown Urine Methadone Screen Negative 05/23/21 Unknown Acetaminophen 5.0 ug/mL (10.0-30.0) L 05/23/21 15:09 Ur Barbiturates Screen Negative 05/23/21 Unknown Ur Phencyclidine Scrn Negative 05/23/21 Unknown Ur Amphetamines Screen Negative 05/23/21 Unknown U Benzodiazepines Scrn Negative 05/23/21 Unknown Urine Cocaine Screen Negative 05/23/21 Unknown U Marijuana (THC) Screen Negative 05/23/21 Unknown Drugs of Abuse Note Disclamer 05/23/21 Unknown Plasma/Serum Alcohol < 0.01 % (0-0.07) 05/23/21 15:09 Coronavirus (PCR) Negative (Negative) 05/23/21 Unknown Blood Type O POSITIVE 05/23/21 15:01 Antibody Screen Negative 05/23/21 15:01 Microbiology: Microbiology 06/04/21 13:39 Urine,Clean Catch Urine Culture - Preliminary NO GROWTH AFTER 24 HOURS 06/02/21 13:53 Peripheral/Venous Blood Culture - Preliminary NO GROWTH AFTER 48 HOURS 06/02/21 13:54 Peripheral/Venous Blood Culture - Preliminary NO GROWTH AFTER 48 HOURS Garcia/IV: Voiding Method Indwelling Catheter Active Medications - Current Medications Current Medications: Generic Name Dose Route Start Last Admin Trade Name Freq PRN Reason Stop Dose Admin Acetaminophen 650 mg 05/23/21 20:42 06/05/21 01:23 Acetaminophen 325 Mg Tab PO 650 mg Q4H PRN Administration Pain MILD(1-3)/Fever >100.5/CASTORENA Albuterol 2.5 mg 05/23/21 21:11 Albuterol 2.5 Mg/3 Ml Nebu IH Q4HRT PRN Shortness Of Breath Albuterol/Ipratropium 1 ampul 05/29/21 08:00 06/05/21 15:49 Ipratropium/Albuterol Sulfate 3 Ml Ampul.Neb IH 1 ampul TIDRT ROSEMARIE Administration Lipase/Protease/Amylase 1 each 05/24/21 10:14 Lipase 10,500/Protease 25,000/Amylase 43,750 (Units) Dr Cap FEEDTUBE PRN PRN For Clogged Feeding Tube Apixaban 2.5 mg 05/29/21 13:00 06/05/21 09:24 Apixaban 2.5 Mg Tab PO 2.5 mg Q12HR ROSEMARIE Administration Protocol Famotidine 20 mg 05/27/21 10:00 06/05/21 09:24 Famotidine 20 Mg Tab FEEDTUBE 20 mg BID ROSEMARIE Administration Hydrophilic Ointment 1 applic 05/23/21 12:34 Lip Therapy Vaseline TP Q2HR PRN Dry Lips Fentanyl Citrate 2,000 mcg in 100 mls @ 8.528 mls/hr 05/23/21 13:00 06/05/21 17:43 Fentanyl Drip Premix IV 4 mcg/kg/hr TITR ROSEMARIE 34.11 mls/hr Administration Protocol 1 MCG/KG/HR NORepinephrine/NS 8 MG-250 ML 8 mg in 250 mls @ 3.75 mls/hr 05/24/21 20:00 06/04/21 05:07 Norepinephrine/Ns 8 Mg-250 Ml (Double Conc) IV 0 mcg/min TITRATE ROSEMARIE 0 mls/hr Titration Protocol 2 MCG/MIN Sodium Chloride 1,000 mls @ 75 mls/hr 06/04/21 12:00 06/05/21 17:43 Nacl 0.9% 1000 Ml IV 06/06/21 01:19 Infused DIRECT ROSEMARIE Infusion Cefepime HCl 2 gm in 100 mls @ 200 mls/hr 06/04/21 16:30 06/05/21 15:32 Cefepime/Ns 2 Gm/100 Ml IV 200 mls/hr Q12H ROSEMARIE Administration Protocol Vancomycin HCl 1,500 mg/ 530 mls @ 333.333 mls/hr 06/05/21 22:00 Sodium Chloride IV Q24H ROSEMARIE Multi-Ingred Cream/Lotion/Oil/Oint 1 applic 05/23/21 12:34 05/30/21 22:14 Mineral Oil/Petrolatum, White Ophth Oint 3.5 Gm OU 1 applic Q4HR PRN Administration Dry Eye(s) Ondansetron HCl 4 mg 05/23/21 20:42 Ondansetron 4 Mg/2 Ml Inj IV Q8H PRN Nausea And Vomiting Quetiapine Fumarate 100 mg 06/03/21 22:00 06/05/21 09:24 Quetiapine 100 Mg Tab PO 100 mg BID ROSEMARIE Administration Senna/Docusate Sodium 1 tab 05/23/21 22:00 06/05/21 09:24 Sennosides/Docusate Sodium 8.6/50 Mg Tab FEEDTUBE 1 tab BID ROSEMARIE Administration Simple Syrup 15 ml 05/24/21 10:14 Simple Syrup 15 Ml FEEDTUBE PRN PRN Hypoglycemia Simple Syrup 30 ml 05/24/21 10:14 Simple Syrup 15 Ml FEEDTUBE PRN PRN Hypoglycemia Sodium Bicarbonate 325 mg 05/24/21 10:14 Sodium Bicarbonate 325 Mg Tab FEEDTUBE PRN PRN For Clogged Feeding Tube Sodium Chloride 10 ml 05/23/21 22:00 06/05/21 09:24 Sodium Chloride 0.9% 10 Ml Flush Syringe IV 10 ml BID ROSEMARIE Administration Sodium Chloride 10 ml 05/23/21 20:42 Sodium Chloride 0.9% 10 Ml Flush Syringe IV PRN PRN LINE FLUSH Nutrition/Malnutrition Assess - Dietary Evaluation Nutrition/Malnutrition Findings: Nutrition Notes Start: 05/24/21 09:53 Freq: Status: Active Protocol: Document 06/02/21 16:14 GB (Rec: 06/02/21 16:23 GB [id number]) Nutrition Notes Initial or Follow up Reassessment Current Diagnosis Acute Kidney Injury, Hypertension,Respiratory Failure Other Pertinent Diagnosis SIRS, encephalopathy, pneu, transaminitis Current Diet NPO, Tube Feeding Nepro @ 45m/ hr Labs/Tests 06/02: BUN 61, Creatinine 1.7, glucose 119 Pertinent Medications Fentanyl Citrate, Norepenephrin/NS 8 Mg 250, Propofol 20.466 ml/hr (540kcal ) Height 5 ft 8 in Weight 100.6 kg [place] Body Weight (kg) 70.00 BMI 33.7 Weight change and time frame Weights recorded to nursing flow sheet - that does not tie to I/O weight results documentation. Weight taken on bed 06/02 100. 6kg, bed changed out on 05/29 r /t not working. Unsure if current weight or pervious weight is accurate. Weight Status Obese Subjective/Other Information MD notes 06/02: Continue TF@ goal as tolerated, persistent lower lobe predominant airspace disease, slightly improved. Per discussion with RN: Bed was changed out on 05/29 due to not working. Weight taken on current bed 100.6kg 06/02. Unsure if bed was zero'd or if weight from previous bed was accurate. Recommend reweigh for weight confirmation. Pt does not appear to have lost significant weight. Also discussed goal rate of TF. Goal is 45m/hr and rate was recorded at 55ml/hr. TF rate now at 45ml/hr. Intubation/Sedation: continues Last BM: 05/30 Percent of energy/protein needs met: TF at goal meets 75% or greater of minimal estimated energy needs Burn Absent Trauma Absent GI Symptoms Other Difficulty In Swallowing Food Allergy No Current % PO Other Minimum of two criteria No #1 Nutrition Diagnosis Swallowing difficulty Comments: 05/25: intubation/sedation continues. TF started 05/28: intubation/sedation continues. TF Nepro @ goal 45ml/hr 06/02: intubation/sedation continues. TF Nepro @ 45m/hr Etiology ARF As Evidenced by Signs and Symptoms Intubated/sedated Diagnosis Progress(for reassessment Continues documentation) Is patient on ventilator? Yes Is Patient Ambulatory and/or Out of Bed No REE-([facility]-confined to bed) 2253.516 Kcal/Kg value to use for calculation 20 Approximate Energy Requirements Using 2012 kcal/Kg Calculation Used for Recommendations Kcal/kg Additional Notes Protein: 1-1.2 g/kg @ 100k-120g Fluid: 1 ml/kcal or per Nutrition Intervention Change Diet Order: Continue NPO, Tube feeding Nutrition Support: Nepro 1.8 at 45 ml/hr Flush 175 ml q4h or per MD Total free water: TF@goal + flush = 1835ml Kcal 1,950 Protein (gm) 88 Carbohydrates (gm) 174 Fat (gm) 104 Fluid (mL) 788 Fiber (gm) 14 % RDI: 98%kcal / 88%pro Add Supplement/Snack (indicate name/kcal n/a /protein ) Goal #1 Meet at least 75% or greater of EEN via TF 05/25: met, continues 05/28: met, continues 06/02: met, continues Goal #2 TF (Nepro) at goal rate (45ml/ hr) by f/u 05/25: TF started 05/28: TF at goal. met, continues 06/02: met, continues Anticipated Discharge Needs: Unable to determine at this time Follow-Up By: 06/09/21 Additional Comments f/u: TF tolerance, weight, vent status
[2021-06-05] MEDS ORDERED: VANCOMYCIN 1,500 MG in SODIUM CHLORIDE 0.9% 500 ML 500 ML IV SCH (22:00)
[2021-06-06] MEDS: ACETAMINOPHEN 325 MG TAB PO PRN ×3 (01:10→22:42)
[2021-06-06] MEDS: fentaNYL DRIP Premix 2,000 MCG/100 ML BAG IV SCH ×7 (02:48→21:29)
[2021-06-06] MEDS: CEFEPIME/NS 2 GM/100 ML 2 GM/100 ML BAG IV SCH (04:09)
[2021-06-06] MEDS: IPRATROPIUM/ALBUTEROL SULFATE 3 ML AMPUL.NEB IH SCH ×3 (08:24→20:09)
[2021-06-06] MEDS: APIXABAN 2.5 MG TAB PO SCH ×2 (09:16→22:43)
[2021-06-06] MEDS: SENNOSIDES/DOCUSATE SODIUM 8.6/50 MG TAB FEEDTUBE SCH ×2 (09:16→22:41)
[2021-06-06] MEDS: FAMOTIDINE 20 MG TAB FEEDTUBE SCH ×2 (09:16→22:41)
[2021-06-06] MEDS: QUEtiapine 100 MG TAB PO SCH ×2 (09:16→22:42)
--- NOTE | 2021-06-06 10:36 | Progress Note ---
Assessment and Plan Acute hypoxic respiratory failure Sinus tachycardia Normal LVEF Sepsis On IV levophed Obstructive sleep apnea Secondary RV dysfunction Acute renal failure Morbid obesity Recommendations: No new cardiac recommendations Wean levophed as tolerated Wean mechanical ventilation as tolerated Discussed with family at the bedside Subjective Date of service: 06/06/21 Principal diagnosis: Acute hypoxemic and hypercapnic resp failure; PUI COVID-19; Pneumonia; FERMIN Interval history: Patient continues to be intubated and mechanically ventilated. Tele showing sinus tachycardia. On IV levophed. Family at the bedside. Objective Vital Signs Temp Pulse Pulse Pulse Resp Resp BP 06/06/21 10:00 124 H 30 H 98/54 06/06/21 09:45 128 H 30 H 93/53 06/06/21 09:30 130 H 26 H 93/52 06/06/21 09:15 127 H 22 99/63 06/06/21 09:00 123 H 30 H 96/59 06/06/21 08:45 123 H 29 H 96/59 06/06/21 08:30 136 H 30 H 141/75 06/06/21 08:24 111 H 30 H 06/06/21 08:20 111 H 93/63 06/06/21 08:16 110 H 30 H 93/63 06/06/21 08:00 117 H 30 H 82/50 06/06/21 07:45 120 H 31 H 87/49 06/06/21 07:30 124 H 30 H 93/49 06/06/21 07:17 100.6 F H 06/06/21 07:15 120 H 30 H 84/43 06/06/21 07:00 120 H 31 H 91/45 06/06/21 06:45 121 H 30 H 93/49 06/06/21 06:30 123 H 30 H 88/43 06/06/21 06:25 06/06/21 06:15 142 H 22 167/90 06/06/21 06:00 122 H 31 H 97/54 06/06/21 05:45 119 H 18 122/56 06/06/21 05:30 120 H 23 116/59 06/06/21 05:15 120 H 12 115/58 06/06/21 05:00 119 H 18 105/58 06/06/21 04:46 125 H 19 101/51 06/06/21 04:30 121 H 24 101/51 06/06/21 04:26 120 H 95/52 06/06/21 04:15 119 H 26 H 98/54 06/06/21 04:00 100.4 F H 120 H 116 H 26 H 101/51 06/06/21 03:45 119 H 24 95/53 06/06/21 03:30 119 H 25 H 95/52 06/06/21 03:15 122 H 24 96/53 06/06/21 03:00 119 H 24 101/49 06/06/21 02:45 118 H 25 H 101/49 06/06/21 02:30 118 H 24 97/56 06/06/21 02:15 118 H 24 100/54 06/06/21 02:07 100.2 F H 06/06/21 02:00 120 H 25 H 100/60 06/06/21 01:45 116 H 25 H 83/40 06/06/21 01:30 120 H 21 89/44 06/06/21 01:15 121 H 25 H 100/49 06/06/21 01:00 117 H 25 H 100/59 06/06/21 00:45 118 H 25 H 106/59 06/06/21 00:30 118 H 28 H 104/59 06/06/21 00:15 117 H 23 107/56 06/06/21 00:00 99.2 F 118 H 116 H 25 H 109/59 06/05/21 23:45 120 H 25 H 108/60 06/05/21 23:30 121 H 24 108/64 06/05/21 23:15 116 H 25 H 106/54 06/05/21 23:08 115 H 107/54 06/05/21 23:07 116 H 25 H 109/59 06/05/21 23:00 115 H 25 H 109/59 06/05/21 22:45 115 H 25 H 107/54 06/05/21 22:42 116 H 25 H 105/56 06/05/21 22:30 117 H 25 H 105/56 06/05/21 22:15 116 H 24 107/58 06/05/21 22:00 115 H 25 H 102/58 06/05/21 21:45 115 H 24 102/52 06/05/21 21:30 100.4 F H 121 H 25 H 105/53 06/05/21 21:15 117 H 25 H 106/51 06/05/21 21:00 117 H 26 H 108/56 06/05/21 20:45 117 H 25 H 109/60 06/05/21 20:30 115 H 24 112/58 06/05/21 20:15 116 H 25 H 116/60 06/05/21 20:00 100.6 F H 120 H 116 H 25 H 111/56 06/05/21 19:45 119 H 26 H 110/59 06/05/21 19:30 119 H 25 H 111/56 06/05/21 19:26 116 H 06/05/21 19:25 100.6 F H 06/05/21 19:15 118 H 26 H 114/57 06/05/21 19:00 116 H 26 H 116/58 06/05/21 18:45 118 H 25 H 118/60 06/05/21 18:30 117 H 24 120/60 06/05/21 18:15 119 H 24 121/61 06/05/21 18:00 121 H 25 H 124/66 06/05/21 17:45 123 H 26 H 126/68 06/05/21 17:30 127 H 21 120/64 06/05/21 17:15 131 H 25 H 130/66 06/05/21 17:00 125 H 24 124/65 06/05/21 16:45 128 H 25 H 121/64 06/05/21 16:30 129 H 24 124/64 06/05/21 16:15 131 H 23 133/66 06/05/21 16:00 100.6 F H 132 H 116 H 25 H 133/73 06/05/21 15:49 128 H 25 H 06/05/21 15:47 133 H 139/76 06/05/21 15:45 138 H 13 113/62 06/05/21 15:30 131 H 14 107/68 06/05/21 15:15 131 H 25 H 113/62 06/05/21 15:00 133 H 136/76 06/05/21 14:45 125 H 21 129/68 06/05/21 14:30 125 H 28 H 128/68 06/05/21 14:15 121 H 19 128/65 06/05/21 14:00 123 H 17 129/67 06/05/21 13:45 124 H 20 132/68 06/05/21 13:30 123 H 12 129/63 06/05/21 13:15 124 H 14 130/60 06/05/21 13:00 126 H 15 132/66 06/05/21 12:45 125 H 18 128/69 06/05/21 12:30 127 H 24 134/65 06/05/21 12:19 125 H 134/71 06/05/21 12:15 127 H 22 134/71 06/05/21 12:00 100 F H 130 H 125 H 20 141/82 06/05/21 11:45 126 H 27 H 133/78 06/05/21 11:30 125 H 22 128/67 06/05/21 11:15 124 H 29 H 130/67 06/05/21 11:00 121 H 25 H 137/70 06/05/21 10:45 118 H 19 129/68 Pulse Ox 06/06/21 10:00 96 06/06/21 09:45 95 06/06/21 09:30 93 06/06/21 09:15 96 06/06/21 09:00 95 06/06/21 08:45 95 06/06/21 08:30 97 06/06/21 08:24 06/06/21 08:20 97 06/06/21 08:16 98 06/06/21 08:00 98 06/06/21 07:45 97 06/06/21 07:30 95 06/06/21 07:17 06/06/21 07:15 97 06/06/21 07:00 98 06/06/21 06:45 97 06/06/21 06:30 96 06/06/21 06:25 95 06/06/21 06:15 95 06/06/21 06:00 96 06/06/21 05:45 96 06/06/21 05:30 96 06/06/21 05:15 95 06/06/21 05:00 95 06/06/21 04:46 94 06/06/21 04:30 96 06/06/21 04:26 96 06/06/21 04:15 96 06/06/21 04:00 97 06/06/21 03:45 96 06/06/21 03:30 96 06/06/21 03:15 95 06/06/21 03:00 95 06/06/21 02:45 95 06/06/21 02:30 96 06/06/21 02:15 95 06/06/21 02:07 06/06/21 02:00 95 06/06/21 01:45 96 06/06/21 01:30 95 06/06/21 01:15 96 06/06/21 01:00 96 06/06/21 00:45 95 06/06/21 00:30 96 06/06/21 00:15 95 06/06/21 00:00 96 06/05/21 23:45 95 06/05/21 23:30 96 06/05/21 23:15 96 06/05/21 23:08 96 06/05/21 23:07 96 06/05/21 23:00 96 06/05/21 22:45 96 06/05/21 22:42 95 06/05/21 22:30 95 06/05/21 22:15 96 06/05/21 22:00 96 06/05/21 21:45 96 06/05/21 21:30 94 06/05/21 21:15 95 06/05/21 21:00 95 06/05/21 20:45 94 06/05/21 20:30 95 06/05/21 20:15 94 06/05/21 20:00 94 06/05/21 19:45 94 06/05/21 19:30 95 06/05/21 19:26 06/05/21 19:25 06/05/21 19:15 94 06/05/21 19:00 94 06/05/21 18:45 93 06/05/21 18:30 94 06/05/21 18:15 95 06/05/21 18:00 94 06/05/21 17:45 95 06/05/21 17:30 94 06/05/21 17:15 94 06/05/21 17:00 95 06/05/21 16:45 94 06/05/21 16:30 95 06/05/21 16:15 96 06/05/21 16:00 96 06/05/21 15:49 06/05/21 15:47 94 06/05/21 15:45 91 06/05/21 15:30 90 06/05/21 15:15 93 06/05/21 15:00 88 06/05/21 14:45 94 06/05/21 14:30 93 06/05/21 14:15 93 06/05/21 14:00 93 06/05/21 13:45 93 06/05/21 13:30 94 06/05/21 13:15 94 06/05/21 13:00 94 06/05/21 12:45 94 06/05/21 12:30 94 06/05/21 12:19 94 06/05/21 12:15 94 06/05/21 12:00 93 06/05/21 11:45 93 06/05/21 11:30 93 06/05/21 11:15 90 06/05/21 11:00 93 06/05/21 10:45 93 - Physical Examination General: Other (Sedated on mechanical ventilator) HEENT: Positive: Normocephaly Neck: Positive: neck supple. Negative: JVD/HJR Cardiac: Positive: Tachycardia Lungs: Positive: Ventilated Respirations Neuro: Positive: Other (Sedated, on the vent) Abdomen: Positive: Soft Skin: Positive: Clear Extremities: Present: +1 Edema - Imaging and Cardiology EKG: report reviewed (Sinus tachycardia no acute ST-T wave changes) - Allied health notes Allied health notes reviewed: nursing
--- NOTE | 2021-06-06 11:10 | Progress Note ---
Assessment and Plan Assessment and plan: This is a 41-year-old male with past medical history of HTN, REVA and morbid obesity who presented to the ER with severe respiratory distress and eventually was intubated for acute respiratory failure secondatory to possible pneumonia vs pulmonary edema. Patient was also found to have an FERMIN. Patient remains intubated and in the ICU for further management. Hospital Course to Date: 05/24/2021: Patient intubated and sedated. VQ scan ordered secondary to elevated D-dimer. Cardiology consulted secondary to elevated troponin and elevated BNP. Echocardiogram ordered and pending. 05/25/2021: Patient still intubated. Responsive to commands. Hypotensive, norepinephrine increased to 15mcg. Unable to get V/Q scan due to body habitus. 05/26: Overnight patient experienced desaturation to the 80s and FiO2 was increased. This morning on ABG patient exhibited hypoxemia and FiO2 was unchanged. [facility] later increased PEEP and decrease FiO2. Nephrology was consulted due to no recovery in renal function noted. Urine lites were ordered. Hyperkalemia treated medically. 05/27: Patient remains sedated on fentanyl and propofol, [facility] will taper Solu- Medrol and repeat ABG in 1899. Patient received 40 mg of Lasix x1. Slight improvement to renal function noted 05/28: [facility] has started revatio for pulmonary hypertension, we will repeat Lasix today as patient had improvement in renal function. No acute events reported overnight. 05/29: 1900 ABG with improved hypoxia, good UOP noted from lasix. Repeat labs for am. no acute events reported overnight 05/30: FWF decreased. Garcia catheter replaced due to sediment. Family updated today at bedside. 05/31: noted to have persistent tachycardia, given fent bolus without improvement. EKG showed ST, passive leg raise by RN showed decrease in tachycardia therefore given LR. Noted increase in Cr today. MIVF for 2 liters started by [facility]. 06/01/21- Remains intubated, sedation was increased this am due to agitation, Levo was initiated due to hypotension. Patient remains on IVF, D/C once current bag is completed. D/w CCM plan to gently wean vent setting for SPO2 goal above 92%. 06/02/21- Patient remains on the vent, on max support this am. Per RN patient desated this am after he was turned, SPO2 was sustaining in the low 80s. Patient is also spiking temp, TMAX 101 this am, WBC wnl. Orders placed for stat CXR, blood cultureX2, and procal. Will hold off on AbX for now. Will continue to trend CBC, am labs ordered 06/03/21- Patient remains on the vent and sedated. High triglyceride level this am, propofol stopped and seroquel added BID. No fever overnight, wbcs remains stable, pending B.cult result. Continue to trend CBC 06/04/21- Patient remains on the vent, no longer on sedation. Easily arousable, follow commands at time. Persistent fever, wbcs remains stable, B.cultX2 pending, procal normal, ID consulted. 06/05/21- Patient remains on the vent on fentanyl gtt RASS -1. Back up to 100% Fio2 due to low SPO2 overnight, this am ABG noted, plan to wean FIO2 for a SPO2 goal abover 90%. Febrile overnight, continue current IV Abx per ID. 06/06/21- Patient remains on the vent on fentanyl gtt RASS 0 to -1. Back on pressors overnight due to hypotension, febrile TMAX 101.1, patient is on IV ABx and ID is on the case. Worsening in kidney function with hyperkalemia is also noted, X1 dose of kayaxalate given. Will continue to monitor renal function and electrolytes. Mom and sister at the bedside, were update on patient's conditions, all questions and concerns were voiced at this time. Assessment and Plan #Neuro: Acute metabolic encephalopathy -CT head and C-spine negative for acute process -TSH WNL -Patient is intubated and sedated on fentynal gtt RASS 0 to -1 -Elevated triglyceride 830, propofol D/C -On Seroquel -Avoid delirium -Reorientation as needed -Maintain sleep-wake cycle #CV:Hypotension #Possible CHF #h/o HTN -Cardiology consulted, appreciate recommendations -05/24 echocardiogram showed mild to moderate dilated right heart chambers, LVEF 55% -ProBNP 20418 -Diuretic on hold due to worsen kidney function -Cardiology recommends conservative cardiac management -Maintain adequate perfusion -Back on pressors overnight -Titrate pressors to maintain MAP above 65 -Continue AC- Eliquis #Acute hypoxemic and hypercapnic respiratory failure/ARDS #H/o sleep apnea -Patient intubated on 05/23 -vent settings:PRVC- 90%,15,30,450 -AM ABG noted -CCM consulted, appreciate recommendations -Continue IV Steroids and Nebs per CCM -VAP bundle addressed -Aspiration precaution HOB above 30 -Daily SBT and SAT trials as tolerated -Daily ABG and CXR -Continue SPO2 monitoring for SPO2 goal above 92% #GI: Transaminitis- improved #morbid obesity -NTR consult for tube feedings -Continue enteral nutrition -Continue BR- senokot -Continue PPI- Pepcid -Trend LFTs #: Acute renal failure secondary to vasomotor nephropathy #Hyperkalemia -[place] ProBNP was 54986, was diuresed, now on hold -FENa 0.41% indicating prerenal -K is 5.3 this am, X1 dose of kayaxalate given -Nephrology consulted, appreciate recommendations -Garcia catheter for strict intake and output -Avoid nephrotoxic medications -Renally dose medications -Continue IVF for now -Continue to monitor renal function and electrolytes, replete as needed #Heme: Elevated D-dimer, h/o PE/DVT -VQ scan unable to be performed due to patient being intubated -CTA head unable to be performed due to renal function and size -restarted on home eliquis -SCDs to bilateral lower extremity while in bed -Echocardiogram shows no right heart strain -Trend CBC -Transfuse for hemoglobin less than 7 -Bilateral lower extremity Doppler ultrasound negative for DVT #ID: CAP #leukopenia- improved #coag negative Staphylococcus in blood culture 07/26 -CT showed right upper lobe pneumonia -05/23 UC, tracheal aspirate no growth to date -05/23 blood culture with coag negative staph in 1 of 2 bottles -Persistent fever, WBCs wnl -ID consulted -Completed IV abx course- cefepime and azithromycin -Continue IV Abx per ID -Daily CBC monitor #Endo: Glycemic control -Accu-Cheks every 6 while on tube feedings -SSI if hyperglycemic -Avoid hypoglycemia -Target blood glucose while critically ill less than 180 The high probability of a clinically significant, sudden or life threatening deterioration of the [Neuro,CV,pulm] system(s) required my full and direct attention, intervention and personal management. The aggregate critical care jamie e was [60] minutes. This time is in addition to time spent performing reported procedures but includes the following: [x] Data Review and interpretation [x] Patient assessment and monitoring of vital signs [x] Documentation [x] Medication orders and management Disposition Plan: ICU Total Time Spent with Patient (Minutes): 60 History Interval history: Patient seen and examined at the bedside. Patient remains on the vent and on fentanyl gtt, RASS -1. Febrile and back on pressors overnight for hypotension. Remains on high vent settings Hospitalist Physical - Constitutional Vitals: Temp Pulse Resp BP Pulse Ox 100.6 F H 124 H 30 H 98/54 96 06/06/21 07:17 06/06/21 10:00 06/06/21 10:00 06/06/21 10:00 06/06/21 10:00 General appearance: Present: no acute distress, obese, other (Intubated and sedated) - EENT Eyes: Present: PERRL ENT: hearing intact - Respiratory Respiratory: bilateral: rhonchi, wheezing - Cardiovascular Rhythm: regular Heart Sounds: Present: S1 & S2 - Extremities Extremities: no ischemia, pulses intact, pulses symmetrical Extremity abnormal: edema - Peripheral Assessment Generalized Edema Type: Pitting Edema Degree: 2+ Capillary Refill: < 3 seconds Skin Temperature: Warm Peripheral Pulses: within normal limits - Abdominal General gastrointestinal: soft, non-tender, normal bowel sounds - Integumentary Integumentary: Present: warm, dry - Psychiatric Psychiatric: other (Intubated and sedated) - Neurologic Neurologic: other (Intubated and sedated) - Allied Health Allied health notes reviewed: nursing HEART Score - HEART Score Troponin: Troponin T 0.038 ng/mL (0.00-0.029) H 05/23/21 15:09 Results - Labs CBC & Chem 7: 06/06/21 Unknown 06/06/21 Unknown Labs: Laboratory Last Values WBC 8.2 K/mm3 (4.5-11.0) 06/05/21 04:30 RBC 3.07 M/mm3 (3.65-5.03) L 06/05/21 04:30 Hgb 9.0 gm/dl (11.8-15.2) L 06/05/21 04:30 Hct 29.6 % (35.5-45.6) L 06/05/21 04:30 MCV 97 fl (84-94) H 06/05/21 04:30 MCH 29 pg (28-32) 06/05/21 04:30 MCHC 30 % (32-34) L 06/05/21 04:30 RDW 19.1 % (13.2-15.2) H 06/05/21 04:30 Plt Count 172 K/mm3 (140-440) 06/05/21 04:30 Lymph % (Auto) 6.2 % (13.4-35.0) L 06/03/21 04:10 Long % (Auto) 13.1 % (0.0-7.3) H 06/03/21 04:10 Eos % (Auto) 3.2 % (0.0-4.3) 06/03/21 04:10 Baso % (Auto) 0.4 % (0.0-1.8) 06/03/21 04:10 Lymph # (Auto) 0.5 K/mm3 (1.2-5.4) L 06/03/21 04:10 Long # (Auto) 1.1 K/mm3 (0.0-0.8) H 06/03/21 04:10 Eos # (Auto) 0.3 K/mm3 (0.0-0.4) 06/03/21 04:10 Baso # (Auto) 0.0 K/mm3 (0.0-0.1) 06/03/21 04:10 Add Manual Diff Complete 05/24/21 04:55 Total Counted 100 05/24/21 04:55 Seg Neutrophils % Dust Box Worker 06/03/21 04:10 Seg Neuts % (Manual) 97.0 % (40.0-70.0) H 05/24/21 04:55 Lymphocytes % (Manual) 3.0 % (13.4-35.0) L 05/24/21 04:55 Nucleated RBC % Not Reportable 05/24/21 04:55 Seg Neutrophils # 6.2 K/mm3 (1.8-7.7) 06/03/21 04:10 Seg Neutrophils # Man 8.4 K/mm3 (1.8-7.7) H 05/24/21 04:55 Band Neutrophils # 0.0 K/mm3 05/24/21 04:55 Lymphocytes # (Manual) 0.3 K/mm3 (1.2-5.4) L 05/24/21 04:55 Abs React Lymphs (Man) 0.0 K/mm3 05/24/21 04:55 Monocytes # (Manual) 0.0 K/mm3 (0.0-0.8) 05/24/21 04:55 Eosinophils # (Manual) 0.0 K/mm3 (0.0-0.4) 05/24/21 04:55 Basophils # (Manual) 0.0 K/mm3 (0.0-0.1) 05/24/21 04:55 Metamyelocytes # 0.0 K/mm3 05/24/21 04:55 Myelocytes # 0.0 K/mm3 05/24/21 04:55 Promyelocytes # 0.0 K/mm3 05/24/21 04:55 Blast Cells # 0.0 K/mm3 05/24/21 04:55 WBC Morphology Not Reportable 05/24/21 04:55 Hypersegmented Neuts Not Reportable 05/24/21 04:55 Hyposegmented Neuts Not Reportable 05/24/21 04:55 Hypogranular Neuts Not Reportable 05/24/21 04:55 Smudge Cells Not Reportable 05/24/21 04:55 Toxic Granulation Not Reportable 05/24/21 04:55 Toxic Vacuolation Not Reportable 05/24/21 04:55 Dohle Bodies Not Reportable 05/24/21 04:55 Pelger-Huet Anomaly Not Reportable 05/24/21 04:55 Cynthia Rods Not Reportable 05/24/21 04:55 Platelet Estimate Consistent w auto 05/24/21 04:55 Clumped Platelets Not Reportable 05/24/21 04:55 Plt Clumps, EDTA Not Reportable 05/24/21 04:55 Large Platelets Not Reportable 05/24/21 04:55 Giant Platelets Not Reportable 05/24/21 04:55 Platelet Satelliting Not Reportable 05/24/21 04:55 Plt Morphology Comment Not Reportable 05/24/21 04:55 RBC Morphology Not Reportable 05/24/21 04:55 Dimorphic RBCs Not Reportable 05/24/21 04:55 Polychromasia Not Reportable 05/24/21 04:55 Hypochromasia Not Reportable 05/24/21 04:55 Poikilocytosis Not Reportable 05/24/21 04:55 Anisocytosis 1+ 10/31/21 04:55 Microcytosis Not Reportable 05/24/21 04:55 Macrocytosis Not Reportable 05/24/21 04:55 Spherocytes Not Reportable 05/24/21 04:55 Pappenheimer Bodies Not Reportable 05/24/21 04:55 Sickle Cells Not Reportable 05/24/21 04:55 Target Cells Not Reportable 05/24/21 04:55 Tear Drop Cells Not Reportable 05/24/21 04:55 Ovalocytes Not Reportable 05/24/21 04:55 Helmet Cells Not Reportable 05/24/21 04:55 [place] Bodies Not Reportable 05/24/21 04:55 [place] Rings Not Reportable 05/24/21 04:55 Luis Cells Not Reportable 05/24/21 04:55 Bite Cells Not Reportable 05/24/21 04:55 Crenated Cell Not Reportable 05/24/21 04:55 Elliptocytes Not Reportable 05/24/21 04:55 Acanthocytes (Spur) Not Reportable 05/24/21 04:55 Rouleaux Not Reportable 05/24/21 04:55 Hemoglobin C Crystals Not Reportable 05/24/21 04:55 Schistocytes Not Reportable 05/24/21 04:55 Malaria parasites Not Reportable 05/24/21 04:55 Uli Bodies Not Reportable 05/24/21 04:55 Hem Pathologist Commnt No 05/24/21 04:55 PT 15.3 Sec. (12.2-14.9) H 05/29/21 13:40 INR 1.09 (0.87-1.13) 05/29/21 13:40 APTT 25.7 Sec. (24.2-36.6) 05/29/21 13:40 D-Dimer 4444.85 ng/mlDDU (0-234) H 05/23/21 15:09 ABG pH 7.262 (7.320-7.450) L 06/06/21 03:19 POC ABG pCO2 45.9 mmHg (32.0-48.0) 06/06/21 03:19 ABG pCO2 47.7 mm Hg 06/05/21 09:07 POC ABG pO2 76.6 mmHg (83-108) L 06/06/21 03:19 ABG pO2 79.5 mm Hg (80.0-90.0) L 06/05/21 09:07 POC ABG HCO3 20.2 06/06/21 03:19 ABG HCO3 22.3 mmol/L (20.0-26.0) 06/05/21 09:07 ABG O2 Saturation 94.6 (0-100) 06/06/21 03:19 ABG O2 Content 11.5 (0.0-44) 06/05/21 09:07 POC ABG Base Excess -6.5 06/06/21 03:19 ABG Base Excess -4.2 mmol/L (-2.0-3.0) L 06/05/21 09:07 ABG Hemoglobin 10.1 (12.0-17.5) L 06/06/21 03:19 ABG Oxyhemoglobin 93.9 (94-98) L 06/06/21 03:19 ABG Carboxyhemoglobin 1.6 % (0.0-5.0) 06/05/21 09:07 ABG Methemoglobin 0.3 (0.0-1.5) 06/06/21 03:19 ABG Sodium 136.5 mmol/L (136.0-145.0) 06/06/21 03:19 ABG Potassium 5.1 mmol/L (3.40-4.50) H 06/06/21 03:19 ABG Chloride 111.0 mmol/L (98-107) H 06/06/21 03:19 ABG Glucose 122 mg/dL (65-95) H 06/06/21 03:19 Oxyhemoglobin 94.9 % (95.0-99.0) L 06/05/21 09:07 Carboxyhemoglobin 0.4 (0.5-1.5) L 06/06/21 03:19 FiO2 100 % 06/05/21 09:07 FiO2 % 90.0 06/06/21 03:19 Sodium 139 mmol/L (137-145) 06/05/21 04:30 Potassium 4.8 mmol/L (3.6-5.0) 06/05/21 04:30 Chloride 108.5 mmol/L (98-107) H 06/05/21 04:30 Carbon Dioxide 21 mmol/L (22-30) L 06/05/21 04:30 Anion Gap 14 mmol/L 06/05/21 04:30 BUN 60 mg/dL (9-20) H 06/05/21 04:30 Creatinine 1.7 mg/dL (0.8-1.3) H 06/05/21 04:30 Estimated GFR 53 ml/min 06/05/21 04:30 BUN/Creatinine Ratio 35 % 06/05/21 04:30 Glucose 110 mg/dL (75-100) H 06/05/21 04:30 POC Glucose 108 mg/dL (70-105) H 06/06/21 04:18 Lactic Acid 1.50 mmol/L (0.7-2.0) 05/23/21 15:09 Calcium 8.7 mg/dL (8.4-10.2) 06/05/21 04:30 Phosphorus 2.90 mg/dL (2.5-4.5) 05/28/21 05:30 Magnesium 2.40 mg/dL (1.7-2.3) H 05/28/21 05:30 Total Bilirubin 0.80 mg/dL (0.1-1.2) 06/04/21 05:15 AST 17 units/L (5-40) 06/04/21 05:15 ALT 44 units/L (7-56) 06/04/21 05:15 Alkaline Phosphatase 74 units/L (35-129) 06/04/21 05:15 Ammonia 30.0 umol/L (25-60) 05/24/21 04:55 Total Creatine Kinase 48 units/L (55-170) L 05/23/21 15:09 Troponin T 0.038 ng/mL (0.00-0.029) H 05/23/21 15:09 C-Reactive Protein 10.00 mg/dL (0.00-1.30) H 05/23/21 19:10 NT-Pro-B Natriuret Pep 37617 pg/mL (0-450) H 05/23/21 15:09 Total Protein 6.8 g/dL (6.3-8.2) 06/04/21 05:15 Albumin 2.7 g/dL (3.9-5) L 06/04/21 05:15 Albumin/Globulin Ratio 0.7 % 06/04/21 05:15 Triglycerides 830 mg/dL (2-149) H 06/03/21 04:10 Cholesterol 106 mg/dL (50-199) 05/23/21 15:09 LDL Cholesterol Direct 58 mg/dL (50-130) 05/23/21 15:09 HDL Cholesterol 29 mg/dL (40-59) L 05/23/21 15:09 Cholesterol/HDL Ratio 3.65 % 05/23/21 15:09 Procalcitonin 0.82 ng/mL (<0.15) 06/02/21 13:53 TSH 2.380 mlU/mL (0.270-4.200) 05/23/21 15:09 Arterial Blood Glucose 122 mg/dL (65-95) H 06/06/21 03:19 Arterial Blood Ionized Calcium 5.0 mg/dL (4.6-5.3) 06/03/21 06:55 Urine Color Yellow (Yellow) 06/04/21 13:39 Urine Turbidity Turbid (Clear) 06/04/21 13:39 Urine pH 5.0 (5.0-7.0) 06/04/21 13:39 Ur Specific [place] 1.015 (1.003-1.030) 06/04/21 13:39 Urine Protein 100 mg/dl mg/dL (Negative) 06/04/21 13:39 Urine Glucose (UA) Neg mg/dL (Negative) 06/04/21 13:39 Urine Ketones Neg mg/dL (Negative) 06/04/21 13:39 Urine Blood Mod (Negative) 06/04/21 13:39 Urine Nitrite Neg (Negative) 06/04/21 13:39 Urine Bilirubin Neg (Negative) 06/04/21 13:39 Urine Urobilinogen 2.0 mg/dL (<2.0) 06/04/21 13:39 Ur Leukocyte Esterase Neg (Negative) 06/04/21 13:39 Urine WBC (Auto) 17.0 /HPF (0.0-6.0) H 06/04/21 13:39 Urine RBC (Auto) > 182.0 /HPF (0.0-6.0) 06/04/21 13:39 U Epithel Cells (Auto) 7.0 /HPF (0-13.0) 06/04/21 13:39 Urine Bacteria (Auto) 1+ /HPF (Negative) 05/23/21 Unknown Amorphous Crystals 3+ 06/04/21 13:39 Urine Mucus Few /HPF 06/04/21 13:39 Ur Yeast w Hyphae Few /HPF 06/04/21 13:39 Urine Yeast (Budding) 3+ /HPF 06/04/21 13:39 Urine Eosinophils 2+ (None Seen) 05/26/21 12:37 Urine Osmolality 612 Mosm/kg 05/26/21 Unknown Urine Creatinine 128.6 mg/dL (0.1-20.0) H 05/26/21 Unknown Protein/Creatinin Ratio 1.01 05/26/21 12:37 Urine Sodium 37 mmol/L 05/26/21 Unknown Urine Potassium 45.15 mmol/L 05/26/21 Unknown Urine Urea Nitrogen 989 05/26/21 Unknown Urine Total Protein 80 mg/dL (5-11.8) H 05/26/21 12:37 Nasal Screen MRSA (PCR) Positive (Negative) 05/30/21 12:00 Salicylates < 0.3 mg/dL (2.8-20.0) L 05/23/21 15:09 Urine Opiates Screen Negative 05/23/21 Unknown Urine Methadone Screen Negative 05/23/21 Unknown Acetaminophen 5.0 ug/mL (10.0-30.0) L 05/23/21 15:09 Ur Barbiturates Screen Negative 05/23/21 Unknown Ur Phencyclidine Scrn Negative 05/23/21 Unknown Ur Amphetamines Screen Negative 05/23/21 Unknown U Benzodiazepines Scrn Negative 05/23/21 Unknown Urine Cocaine Screen Negative 05/23/21 Unknown U Marijuana (THC) Screen Negative 05/23/21 Unknown Drugs of Abuse Note Disclamer 05/23/21 Unknown Plasma/Serum Alcohol < 0.01 % (0-0.07) 05/23/21 15:09 Coronavirus (PCR) Negative (Negative) 05/23/21 Unknown Blood Type O POSITIVE 05/23/21 15:01 Antibody Screen Negative 05/23/21 15:01 Microbiology: Microbiology 06/02/21 13:53 Peripheral/Venous Blood Culture - Preliminary NO GROWTH AFTER 72 HOURS 06/02/21 13:54 Peripheral/Venous Blood Culture - Preliminary NO GROWTH AFTER 72 HOURS 06/04/21 13:39 Urine,Clean Catch Urine Culture - Preliminary NO GROWTH AFTER 24 HOURS Garcia/IV: Voiding Method Indwelling Catheter Active Medications - Current Medications Current Medications: Generic Name Dose Route Start Last Admin Trade Name Freq PRN Reason Stop Dose Admin Acetaminophen 650 mg 05/23/21 20:42 06/06/21 06:30 Acetaminophen 325 Mg Tab PO 650 mg Q4H PRN Administration Pain MILD(1-3)/Fever >100.5/CASTORENA Albuterol 2.5 mg 05/23/21 21:11 Albuterol 2.5 Mg/3 Ml Nebu IH Q4HRT PRN Shortness Of Breath Albuterol/Ipratropium 1 ampul 05/29/21 08:00 06/06/21 08:24 Ipratropium/Albuterol Sulfate 3 Ml Ampul.Neb IH 1 ampul TIDRT ROSEMARIE Administration Lipase/Protease/Amylase 1 each 05/24/21 10:14 Lipase 10,500/Protease 25,000/Amylase 43,750 (Units) Dr Cap FEEDTUBE PRN PRN For Clogged Feeding Tube Apixaban 2.5 mg 05/29/21 13:00 06/06/21 09:16 Apixaban 2.5 Mg Tab PO 2.5 mg Q12HR ROSEMARIE Administration Protocol Famotidine 20 mg 05/27/21 10:00 06/06/21 09:16 Famotidine 20 Mg Tab FEEDTUBE 20 mg BID ROSEMARIE Administration Hydrophilic Ointment 1 applic 05/23/21 12:34 Lip Therapy Vaseline TP Q2HR PRN Dry Lips Fentanyl Citrate 2,000 mcg in 100 mls @ 8.528 mls/hr 05/23/21 13:00 06/06/21 08:50 Fentanyl Drip Premix IV 3 mcg/kg/hr TITR ROSEMARIE 25.583 mls/hr Administration Protocol 1 MCG/KG/HR NORepinephrine/NS 8 MG-250 ML 8 mg in 250 mls @ 3.75 mls/hr 05/24/21 20:00 06/06/21 10:00 Norepinephrine/Ns 8 Mg-250 Ml (Double Conc) IV 7 mcg/min TITRATE ROSEMARIE 13.125 mls/hr Titration Protocol 2 MCG/MIN Cefepime HCl 2 gm in 100 mls @ 200 mls/hr 06/04/21 16:30 06/06/21 04:09 Cefepime/Ns 2 Gm/100 Ml IV 200 mls/hr Q12H ROSEMARIE Administration Protocol Vancomycin HCl 1,500 mg/ 530 mls @ 333.333 mls/hr 06/05/21 22:00 06/05/21 21:25 Sodium Chloride IV 333.333 mls/hr Q24H ROSEMARIE Administration Multi-Ingred Cream/Lotion/Oil/Oint 1 applic 05/23/21 12:34 05/30/21 22:14 Mineral Oil/Petrolatum, White Ophth Oint 3.5 Gm OU 1 applic Q4HR PRN Administration Dry Eye(s) Ondansetron HCl 4 mg 05/23/21 20:42 Ondansetron 4 Mg/2 Ml Inj IV Q8H PRN Nausea And Vomiting Quetiapine Fumarate 100 mg 06/03/21 22:00 06/06/21 09:16 Quetiapine 100 Mg Tab PO 100 mg BID ROSEMARIE Administration Senna/Docusate Sodium 1 tab 05/23/21 22:00 06/06/21 09:16 Sennosides/Docusate Sodium 8.6/50 Mg Tab FEEDTUBE 1 tab BID ROSEMARIE Administration Simple Syrup 15 ml 05/24/21 10:14 Simple Syrup 15 Ml FEEDTUBE PRN PRN Hypoglycemia Simple Syrup 30 ml 05/24/21 10:14 Simple Syrup 15 Ml FEEDTUBE PRN PRN Hypoglycemia Sodium Bicarbonate 325 mg 05/24/21 10:14 Sodium Bicarbonate 325 Mg Tab FEEDTUBE PRN PRN For Clogged Feeding Tube Sodium Chloride 10 ml 05/23/21 22:00 06/06/21 09:21 Sodium Chloride 0.9% 10 Ml Flush Syringe IV 10 ml BID ROSEMARIE Administration Sodium Chloride 10 ml 05/23/21 20:42 Sodium Chloride 0.9% 10 Ml Flush Syringe IV PRN PRN LINE FLUSH Nutrition/Malnutrition Assess - Dietary Evaluation Nutrition/Malnutrition Findings: Nutrition Notes Start: 05/24/21 09:53 Freq: Status: Active Protocol: Document 06/02/21 16:14 GB (Rec: 06/02/21 16:23 GB [id number]) Nutrition Notes Initial or Follow up Reassessment Current Diagnosis Acute Kidney Injury, Hypertension,Respiratory Failure Other Pertinent Diagnosis SIRS, encephalopathy, pneu, transaminitis Current Diet NPO, Tube Feeding Nepro @ 45m/ hr Labs/Tests 06/02: BUN 61, Creatinine 1.7, glucose 119 Pertinent Medications Fentanyl Citrate, Norepenephrin/NS 8 Mg 250, Propofol 20.466 ml/hr (540kcal ) Height 5 ft 8 in Weight 100.6 kg [place] Body Weight (kg) 70.00 BMI 33.7 Weight change and time frame Weights recorded to nursing flow sheet - that does not tie to I/O weight results documentation. Weight taken on bed 06/02 100. 6kg, bed changed out on 05/29 r /t not working. Unsure if current weight or pervious weight is accurate. Weight Status Obese Subjective/Other Information MD notes 06/02: Continue TF@ goal as tolerated, persistent lower lobe predominant airspace disease, slightly improved. Per discussion with RN: Bed was changed out on 05/29 due to not working. Weight taken on current bed 100.6kg 06/02. Unsure if bed was zero'd or if weight from previous bed was accurate. Recommend reweigh for weight confirmation. Pt does not appear to have lost significant weight. Also discussed goal rate of TF. Goal is 45m/hr and rate was recorded at 55ml/hr. TF rate now at 45ml/hr. Intubation/Sedation: continues Last BM: 05/30 Percent of energy/protein needs met: TF at goal meets 75% or greater of minimal estimated energy needs Burn Absent Trauma Absent GI Symptoms Other Difficulty In Swallowing Food Allergy No Current % PO Other Minimum of two criteria No #1 Nutrition Diagnosis Swallowing difficulty Comments: 05/25: intubation/sedation continues. TF started 05/28: intubation/sedation continues. TF Nepro @ goal 45ml/hr 06/02: intubation/sedation continues. TF Nepro @ 45m/hr Etiology ARF As Evidenced by Signs and Symptoms Intubated/sedated Diagnosis Progress(for reassessment Continues documentation) Is patient on ventilator? Yes Is Patient Ambulatory and/or Out of Bed No REE-([facility]-confined to bed) 2253.516 Kcal/Kg value to use for calculation 20 Approximate Energy Requirements Using 2012 kcal/Kg Calculation Used for Recommendations Kcal/kg Additional Notes Protein: 1-1.2 g/kg @ 100k-120g Fluid: 1 ml/kcal or per Nutrition Intervention Change Diet Order: Continue NPO, Tube feeding Nutrition Support: Nepro 1.8 at 45 ml/hr Flush 175 ml q4h or per MD Total free water: TF@goal + flush = 1835ml Kcal 1,950 Protein (gm) 88 Carbohydrates (gm) 174 Fat (gm) 104 Fluid (mL) 788 Fiber (gm) 14 % RDI: 98%kcal / 88%pro Add Supplement/Snack (indicate name/kcal n/a /protein ) Goal #1 Meet at least 75% or greater of EEN via TF 05/25: met, continues 05/28: met, continues 06/02: met, continues Goal #2 TF (Nepro) at goal rate (45ml/ hr) by f/u 05/25: TF started 05/28: TF at goal. met, continues 06/02: met, continues Anticipated Discharge Needs: Unable to determine at this time Follow-Up By: 06/09/21 Additional Comments f/u: TF tolerance, weight, vent status
[2021-06-06 11:24] LABS: Hematocrit 30.8 % (35.5-45.6); Hemoglobin 9.5 gm/dl (11.8-15.2); Mean Corpuscular HGB Conc 31 % (32-34); Mean Corpuscular Volume 97 fl (84-94); Platelet Count 185 K/mm3 (140-440); Red Blood Count 3.18 M/mm3 (3.65-5.03); Red Cell Distribution Width 18.9 % (13.2-15.2)
[2021-06-06 11:46] LABS: Calcium 9.2 mg/dL (8.4-10.2)
[2021-06-06] MEDS: NORepinephrine/NS 8 MG-250 ML 8 MG/250 ML INFUS..BTL IV SCH (12:17)
--- NOTE | 2021-06-06 13:33 | Progress Note ---
Assessment and Plan Acute possibly on chronic hypoxemic and hypercapnic respiratory failure Pneumonia, community-acquired Acute toxic metabolic encephalopathy Person under investigation for COVID-19 Morbid obesity Obstructive sleep apnea History of hypertension Acute kidney injury Hyperkalemia Elevated serum transaminases Possible shock liver Hyperammonemia Non-ST elevation myocardial infarction - repeat US chest +/- thoracentesis - continue Cefepime, de-escalate per ID recommendations - kayexalate 15 gms p.o. X 1 - send urine lytes - i will hold on more IVF but rather conservative volume management strategies at this point - will switch to vasopressin re: tachyarythmia - get 12 lead EKG - repeat ABG in am - continue care as below otherwise; - wean vasopressors for target MAP > 65 mmHg - continue Eliquis - continue Revatio re: pulm HTN - nephrology input appreciated (azotemia improving) - continue Daily SAT and SBT assessment as tolerated - continue to wean supplemental oxygen for target O2 sat's > 90% acutely - VAP bundle addressed - continue lung protective strategies - continue bronchodilators with pulmonary hygiene per RT - wean per pulmonary driven protocols otherwise - avoid nephrotoxins, renally dose all medications - continue accuchecks with glycemic control per SSI (While critically ill target blood glucose of 140-180 mg/dL; avoid hypoglycemia) - sedation prn for target RASS 0 to -1 - continue to avoid benzodiazepine's, reduce the possibility of delirium - AB's per ID rec's - prn analgesia per CPOT score - Maintenance of sleep-wake cycle, avoid delirium - continue enteral nutritional support at goal rate as tolerated - G.I. & VTE prophylaxis - PT/OT/ROM exercises - continue mobility protocols for pressure ulcer prophylaxis - Monitor hemodynamics closely - continue other care per attending / other consultants - discharge planning ongoing concurrently COVID SPECIFIC INTERVENTIONS - COVID-19 test result pending .... Re-evaluate in am & prn CONDITION: CRITICAL PROGNOSIS: GUARDED CODE STATUS: FULL CODE The high probability of a clinically significant, sudden or life-threatening deterioration of the [respiratory, cardiovascular, renal & neurologic] system(s) required my full and direct attention, intervention and personal management. The aggregate critical care time was [33] minutes without overlap. Time includes spent on; [x] Data Review and interpretation [x] Patient assessment and monitoring of vital signs [x] Documentation [x] Medication orders and management Subjective Date of service: 06/06/21 Principal diagnosis: Acute hypoxemic and hypercapnic resp failure; PUI COVID-19; Pneumonia; FERMIN Interval history: Patient is seen today for: Acute hypoxemic and hypercapnic respiratory failure; PUI NCOVID-19; Pneumonia; CAP; FERMIN; REVA Seen and examined at bedside; 24hour events reviewed; nursing and respiratory care staff consulted; no adverse overnight events reported to me; remains on MVS; back on vasopressors; FiO2 down to 90%; now with SVT; no emesis or overt aspiration; azotemia is worse also with hyperkalemia today Objective Vital Signs - 12hr 06/06/21 06/06/21 06/06/21 01:45 02:00 02:07 Temperature 100.2 F H Pulse Rate 116 H 120 H Pulse Rate [ Anterior Bilateral Throughout] Pulse Rate [ From Monitor] Respiratory 25 H 25 H Rate Respiratory Rate [Anterior Bilateral Throughout] Blood Pressure 83/40 100/60 O2 Sat by Pulse 96 95 Oximetry 06/06/21 06/06/21 06/06/21 02:15 02:30 02:45 Temperature Pulse Rate 118 H 118 H 118 H Pulse Rate [ Anterior Bilateral Throughout] Pulse Rate [ From Monitor] Respiratory 24 24 25 H Rate Respiratory Rate [Anterior Bilateral Throughout] Blood Pressure 100/54 97/56 101/49 O2 Sat by Pulse 95 96 95 Oximetry 06/06/21 06/06/21 06/06/21 03:00 03:15 03:30 Temperature Pulse Rate 119 H 122 H 119 H Pulse Rate [ Anterior Bilateral Throughout] Pulse Rate [ From Monitor] Respiratory 24 24 25 H Rate Respiratory Rate [Anterior Bilateral Throughout] Blood Pressure 101/49 96/53 95/52 O2 Sat by Pulse 95 95 96 Oximetry 06/06/21 06/06/21 06/06/21 03:45 04:00 04:15 Temperature 100.4 F H Pulse Rate 119 H 120 H 119 H Pulse Rate [ Anterior Bilateral Throughout] Pulse Rate [ 116 H From Monitor] Respiratory 24 26 H 26 H Rate Respiratory Rate [Anterior Bilateral Throughout] Blood Pressure 95/53 101/51 98/54 O2 Sat by Pulse 96 97 96 Oximetry 06/06/21 06/06/21 06/06/21 04:26 04:30 04:46 Temperature Pulse Rate 120 H 121 H 125 H Pulse Rate [ Anterior Bilateral Throughout] Pulse Rate [ From Monitor] Respiratory 24 19 Rate Respiratory Rate [Anterior Bilateral Throughout] Blood Pressure 95/52 101/51 101/51 O2 Sat by Pulse 96 96 94 Oximetry 06/06/21 06/06/21 06/06/21 05:00 05:15 05:30 Temperature Pulse Rate 119 H 120 H 120 H Pulse Rate [ Anterior Bilateral Throughout] Pulse Rate [ From Monitor] Respiratory 18 12 23 Rate Respiratory Rate [Anterior Bilateral Throughout] Blood Pressure 105/58 115/58 116/59 O2 Sat by Pulse 95 95 96 Oximetry 06/06/21 06/06/21 06/06/21 05:45 06:00 06:15 Temperature Pulse Rate 119 H 122 H 142 H Pulse Rate [ Anterior Bilateral Throughout] Pulse Rate [ From Monitor] Respiratory 18 31 H 22 Rate Respiratory Rate [Anterior Bilateral Throughout] Blood Pressure 122/56 97/54 167/90 O2 Sat by Pulse 96 96 95 Oximetry 06/06/21 06/06/21 06/06/21 06:25 06:30 06:45 Temperature Pulse Rate 123 H 121 H Pulse Rate [ Anterior Bilateral Throughout] Pulse Rate [ From Monitor] Respiratory 30 H 30 H Rate Respiratory Rate [Anterior Bilateral Throughout] Blood Pressure 88/43 93/49 O2 Sat by Pulse 95 96 97 Oximetry 06/06/21 06/06/21 06/06/21 07:00 07:15 07:17 Temperature 100.6 F H Pulse Rate 120 H 120 H Pulse Rate [ Anterior Bilateral Throughout] Pulse Rate [ From Monitor] Respiratory 31 H 30 H Rate Respiratory Rate [Anterior Bilateral Throughout] Blood Pressure 91/45 84/43 O2 Sat by Pulse 98 97 Oximetry 06/06/21 06/06/21 06/06/21 07:30 07:45 08:00 Temperature Pulse Rate 124 H 120 H 117 H Pulse Rate [ Anterior Bilateral Throughout] Pulse Rate [ From Monitor] Respiratory 30 H 31 H 30 H Rate Respiratory Rate [Anterior Bilateral Throughout] Blood Pressure 93/49 87/49 82/50 O2 Sat by Pulse 95 97 98 Oximetry 06/06/21 06/06/21 06/06/21 08:16 08:20 08:24 Temperature Pulse Rate 110 H 111 H Pulse Rate [ 111 H Anterior Bilateral Throughout] Pulse Rate [ From Monitor] Respiratory 30 H Rate Respiratory 30 H Rate [Anterior Bilateral Throughout] Blood Pressure 93/63 93/63 O2 Sat by Pulse 98 97 Oximetry 06/06/21 06/06/21 06/06/21 08:30 08:45 09:00 Temperature Pulse Rate 136 H 123 H 123 H Pulse Rate [ Anterior Bilateral Throughout] Pulse Rate [ From Monitor] Respiratory 30 H 29 H 30 H Rate Respiratory Rate [Anterior Bilateral Throughout] Blood Pressure 141/75 96/59 96/59 O2 Sat by Pulse 97 95 95 Oximetry 06/06/21 06/06/21 06/06/21 09:15 09:30 09:45 Temperature Pulse Rate 127 H 130 H 128 H Pulse Rate [ Anterior Bilateral Throughout] Pulse Rate [ From Monitor] Respiratory 22 26 H 30 H Rate Respiratory Rate [Anterior Bilateral Throughout] Blood Pressure 99/63 93/52 93/53 O2 Sat by Pulse 96 93 95 Oximetry 06/06/21 06/06/21 06/06/21 10:00 10:15 10:30 Temperature Pulse Rate 124 H 127 H 124 H Pulse Rate [ Anterior Bilateral Throughout] Pulse Rate [ From Monitor] Respiratory 30 H 29 H 30 H Rate Respiratory Rate [Anterior Bilateral Throughout] Blood Pressure 98/54 103/62 89/54 O2 Sat by Pulse 96 95 96 Oximetry 06/06/21 06/06/21 06/06/21 10:45 11:00 11:15 Temperature Pulse Rate 123 H 122 H 129 H Pulse Rate [ Anterior Bilateral Throughout] Pulse Rate [ From Monitor] Respiratory 30 H 30 H 29 H Rate Respiratory Rate [Anterior Bilateral Throughout] Blood Pressure 94/55 89/59 89/59 O2 Sat by Pulse 96 96 94 Oximetry 06/06/21 06/06/21 06/06/21 11:30 11:45 12:00 Temperature Pulse Rate 123 H 124 H 120 H Pulse Rate [ Anterior Bilateral Throughout] Pulse Rate [ From Monitor] Respiratory 30 H 30 H 30 H Rate Respiratory Rate [Anterior Bilateral Throughout] Blood Pressure 106/62 116/64 111/63 O2 Sat by Pulse 95 92 92 Oximetry 06/06/21 06/06/21 06/06/21 12:15 12:18 12:30 Temperature Pulse Rate 119 H 124 H 140 H Pulse Rate [ Anterior Bilateral Throughout] Pulse Rate [ From Monitor] Respiratory 30 H 21 Rate Respiratory Rate [Anterior Bilateral Throughout] Blood Pressure 114/65 114/65 111/75 O2 Sat by Pulse 90 92 93 Oximetry 06/06/21 12:45 Temperature 100.9 F H Pulse Rate Pulse Rate [ Anterior Bilateral Throughout] Pulse Rate [ From Monitor] Respiratory Rate Respiratory Rate [Anterior Bilateral Throughout] Blood Pressure O2 Sat by Pulse Oximetry Constitutional: appears uncomfortable, other (middle aged morbidly obese male with mildly increased respiratory effort at rest on MVS) Eyes: non-icteric ENT: oropharynx moist, other (ETT 24 cm FRANCIS) Neck: supple, no lymphadenopathy, no JVD Effort: mildly labored Ascultation: Bilateral: diminished breath sounds, rales Percussion: Bilateral: not dull Cardiovascular: regular rate and rhythm Gastrointestinal: normoactive bowel sounds, soft, non-tender, non-distended Integumentary: rash (stasis dermatitis) Extremities: no cyanosis, pulses normal, no ischemia or petechiae, edema (trace) Neurologic: non-focal exam (grossly), pupils equal and round, CN II-XII normal, other (sedated) Psychiatric: other (sedated) CBC and BMP: 06/06/21 Unknown 06/06/21 Unknown ABG, PT/INR, D-dimer: ABG ABG pH 7.262 (7.320-7.450) L 06/06/21 03:19 POC ABG pCO2 45.9 mmHg (32.0-48.0) 06/06/21 03:19 ABG pCO2 47.7 mm Hg 06/05/21 09:07 POC ABG pO2 76.6 mmHg (83-108) L 06/06/21 03:19 ABG pO2 79.5 mm Hg (80.0-90.0) L 06/05/21 09:07 POC ABG HCO3 20.2 06/06/21 03:19 ABG O2 Saturation 94.6 (0-100) 06/06/21 03:19 PT/INR, D-dimer PT 15.3 Sec. (12.2-14.9) H 05/29/21 13:40 INR 1.09 (0.87-1.13) 05/29/21 13:40 D-Dimer 4444.85 ng/mlDDU (0-234) H 05/23/21 15:09 Abnormal lab findings: Abnormal Labs 05/23/21 05/23/21 05/23/21 15:00 15:09 15:09 WBC RBC Hgb Hct MCV 95 H MCHC 30 L RDW 20.1 H Plt Count Lymph % (Auto) 5.9 L [place] % (Auto) Lymph # (Auto) 0.6 L [place] # (Auto) Seg Neutrophils % 87.5 H Seg Neuts % (Manual) Lymphocytes % (Manual) Seg Neutrophils # 8.2 H Seg Neutrophils # Man Lymphocytes # (Manual) PT 18.1 H INR 1.36 H APTT 23.1 L D-Dimer ABG pH 7.215 L POC ABG pCO2 POC ABG pO2 ABG pO2 ABG HCO3 28.4 H ABG O2 Saturation ABG Base Excess ABG Hemoglobin 13.5 L ABG Oxyhemoglobin ABG Sodium ABG Potassium ABG Chloride ABG Glucose Oxyhemoglobin 92.6 L Carboxyhemoglobin Sodium Potassium Chloride Carbon Dioxide BUN Creatinine Glucose POC Glucose Calcium Magnesium AST ALT Ammonia Total Creatine Kinase Troponin T C-Reactive Protein NT-Pro-B Natriuret Pep Albumin Triglycerides HDL Cholesterol Arterial Blood Glucose Urine WBC (Auto) Urine Creatinine Urine Total Protein Salicylates Acetaminophen 05/23/21 05/23/21 05/23/21 15:09 15:09 15:09 WBC RBC Hgb Hct MCV MCHC RDW Plt Count Lymph % (Auto) [place] % (Auto) Lymph # (Auto) [place] # (Auto) Seg Neutrophils % Seg Neuts % (Manual) Lymphocytes % (Manual) Seg Neutrophils # Seg Neutrophils # Man Lymphocytes # (Manual) PT INR APTT D-Dimer ABG pH POC ABG pCO2 POC ABG pO2 ABG pO2 ABG HCO3 ABG O2 Saturation ABG Base Excess ABG Hemoglobin ABG Oxyhemoglobin ABG Sodium ABG Potassium ABG Chloride ABG Glucose Oxyhemoglobin Carboxyhemoglobin Sodium Potassium 5.2 H Chloride Carbon Dioxide BUN 40 H Creatinine 3.2 H Glucose 133 H POC Glucose Calcium Magnesium AST 1094 H ALT 1089 H Ammonia 75.0 H Total Creatine Kinase Troponin T 0.038 H C-Reactive Protein NT-Pro-B Natriuret Pep Albumin 3.0 L Triglycerides HDL Cholesterol 29 L Arterial Blood Glucose Urine WBC (Auto) Urine Creatinine Urine Total Protein Salicylates < 0.3 L Acetaminophen 05/23/21 05/23/21 05/23/21 15:09 15:09 15:09 WBC RBC Hgb Hct MCV MCHC RDW Plt Count Lymph % (Auto) [place] % (Auto) Lymph # (Auto) [place] # (Auto) Seg Neutrophils % Seg Neuts % (Manual) Lymphocytes % (Manual) Seg Neutrophils # Seg Neutrophils # Man Lymphocytes # (Manual) PT INR APTT D-Dimer 4444.85 H ABG pH POC ABG pCO2 POC ABG pO2 ABG pO2 ABG HCO3 ABG O2 Saturation ABG Base Excess ABG Hemoglobin ABG Oxyhemoglobin ABG Sodium ABG Potassium ABG Chloride ABG Glucose Oxyhemoglobin Carboxyhemoglobin Sodium Potassium Chloride Carbon Dioxide BUN Creatinine Glucose POC Glucose Calcium Magnesium AST ALT Ammonia Total Creatine Kinase 48 L Troponin T C-Reactive Protein NT-Pro-B Natriuret Pep 47587 H Albumin Triglycerides HDL Cholesterol Arterial Blood Glucose Urine WBC (Auto) Urine Creatinine Urine Total Protein Salicylates Acetaminophen 5.0 L 05/23/21 05/23/21 05/23/21 19:10 20:48 Unknown WBC RBC Hgb Hct MCV MCHC RDW Plt Count Lymph % (Auto) [place] % (Auto) Lymph # (Auto) [place] # (Auto) Seg Neutrophils % Seg Neuts % (Manual) Lymphocytes % (Manual) Seg Neutrophils # Seg Neutrophils # Man Lymphocytes # (Manual) PT INR APTT D-Dimer ABG pH 7.332 L POC ABG pCO2 POC ABG pO2 ABG pO2 74.0 L ABG HCO3 ABG O2 Saturation 94.4 L ABG Base Excess ABG Hemoglobin 12.5 L ABG Oxyhemoglobin ABG Sodium ABG Potassium ABG Chloride ABG Glucose Oxyhemoglobin 92.3 L Carboxyhemoglobin Sodium Potassium Chloride Carbon Dioxide BUN Creatinine Glucose POC Glucose Calcium Magnesium AST ALT Ammonia Total Creatine Kinase Troponin T C-Reactive Protein 10.00 H NT-Pro-B Natriuret Pep Albumin Triglycerides HDL Cholesterol Arterial Blood Glucose Urine WBC (Auto) 34.0 H Urine Creatinine Urine Total Protein Salicylates Acetaminophen 05/24/21 05/24/21 05/24/21 04:55 04:55 09:15 WBC RBC Hgb Hct MCV 95 H MCHC 31 L RDW 19.4 H Plt Count Lymph % (Auto) [place] % (Auto) Lymph # (Auto) [place] # (Auto) Seg Neutrophils % Seg Neuts % (Manual) 97.0 H Lymphocytes % (Manual) 3.0 L Seg Neutrophils # Seg Neutrophils # Man 8.4 H Lymphocytes # (Manual) 0.3 L PT INR APTT D-Dimer ABG pH POC ABG pCO2 POC ABG pO2 ABG pO2 90.6 H ABG HCO3 ABG O2 Saturation ABG Base Excess -3.7 L ABG Hemoglobin 13.5 L ABG Oxyhemoglobin ABG Sodium ABG Potassium ABG Chloride ABG Glucose Oxyhemoglobin Carboxyhemoglobin Sodium Potassium 5.5 H Chloride Carbon Dioxide 20 L BUN 39 H Creatinine 2.2 H Glucose 155 H POC Glucose Calcium 8.3 L Magnesium AST 571 H ALT 951 H Ammonia Total Creatine Kinase Troponin T C-Reactive Protein NT-Pro-B Natriuret Pep Albumin 3.2 L Triglycerides HDL Cholesterol Arterial Blood Glucose Urine WBC (Auto) Urine Creatinine Urine Total Protein Salicylates Acetaminophen 05/25/21 05/25/21 05/25/21 04:20 14:37 14:37 WBC RBC Hgb Hct MCV 96 H MCHC 30 L RDW 20.7 H Plt Count Lymph % (Auto) [place] % (Auto) Lymph # (Auto) [place] # (Auto) Seg Neutrophils % Seg Neuts % (Manual) Lymphocytes % (Manual) Seg Neutrophils # Seg Neutrophils # Man Lymphocytes # (Manual) PT INR APTT D-Dimer ABG pH 7.222 L POC ABG pCO2 57.8 H POC ABG pO2 67.3 L ABG pO2 ABG HCO3 ABG O2 Saturation ABG Base Excess ABG Hemoglobin ABG Oxyhemoglobin 89.1 L ABG Sodium ABG Potassium 5.1 H ABG Chloride ABG Glucose 182 H Oxyhemoglobin Carboxyhemoglobin Sodium Potassium 5.3 H Chloride Carbon Dioxide BUN 47 H Creatinine 2.0 H Glucose 154 H POC Glucose Calcium Magnesium AST 93 H ALT 590 H Ammonia Total Creatine Kinase Troponin T C-Reactive Protein NT-Pro-B Natriuret Pep Albumin 3.6 L Triglycerides HDL Cholesterol Arterial Blood Glucose 182 H Urine WBC (Auto) Urine Creatinine Urine Total Protein Salicylates Acetaminophen 05/25/21 05/25/21 05/26/21 21:50 23:30 05:31 WBC RBC Hgb Hct MCV MCHC RDW Plt Count Lymph % (Auto) [place] % (Auto) Lymph # (Auto) [place] # (Auto) Seg Neutrophils % Seg Neuts % (Manual) Lymphocytes % (Manual) Seg Neutrophils # Seg Neutrophils # Man Lymphocytes # (Manual) PT INR APTT D-Dimer ABG pH 7.328 L POC ABG pCO2 POC ABG pO2 ABG pO2 63.3 L ABG HCO3 ABG O2 Saturation 92.1 L ABG Base Excess -2.4 L ABG Hemoglobin 11.3 L ABG Oxyhemoglobin ABG Sodium ABG Potassium ABG Chloride ABG Glucose Oxyhemoglobin 90.3 L Carboxyhemoglobin Sodium Potassium Chloride Carbon Dioxide BUN Creatinine Glucose POC Glucose 131 H 123 H Calcium Magnesium AST ALT Ammonia Total Creatine Kinase Troponin T C-Reactive Protein NT-Pro-B Natriuret Pep Albumin Triglycerides HDL Cholesterol Arterial Blood Glucose Urine WBC (Auto) Urine Creatinine Urine Total Protein Salicylates Acetaminophen 05/26/21 05/26/21 05/26/21 09:02 10:57 12:37 WBC RBC Hgb Hct MCV MCHC RDW Plt Count Lymph % (Auto) [place] % (Auto) Lymph # (Auto) [place] # (Auto) Seg Neutrophils % Seg Neuts % (Manual) Lymphocytes % (Manual) Seg Neutrophils # Seg Neutrophils # Man Lymphocytes # (Manual) PT INR APTT D-Dimer ABG pH 7.346 L POC ABG pCO2 POC ABG pO2 ABG pO2 60.5 L ABG HCO3 ABG O2 Saturation 90.7 L ABG Base Excess ABG Hemoglobin 13.1 L ABG Oxyhemoglobin ABG Sodium ABG Potassium ABG Chloride ABG Glucose Oxyhemoglobin 88.9 L Carboxyhemoglobin Sodium Potassium Chloride Carbon Dioxide BUN Creatinine Glucose POC Glucose 127 H Calcium Magnesium AST ALT Ammonia Total Creatine Kinase Troponin T C-Reactive Protein NT-Pro-B Natriuret Pep Albumin Triglycerides HDL Cholesterol Arterial Blood Glucose Urine WBC (Auto) Urine Creatinine 79.3 H Urine Total Protein 80 H Salicylates Acetaminophen 05/26/21 05/26/21 05/26/21 17:30 21:00 Unknown WBC 4.2 L RBC Hgb 11.7 L Hct MCV MCHC 31 L RDW 20.3 H Plt Count 132 L Lymph % (Auto) [place] % (Auto) Lymph # (Auto) [place] # (Auto) Seg Neutrophils % Seg Neuts % (Manual) Lymphocytes % (Manual) Seg Neutrophils # Seg Neutrophils # Man Lymphocytes # (Manual) PT INR APTT D-Dimer ABG pH POC ABG pCO2 POC ABG pO2 56.7 L ABG pO2 ABG HCO3 ABG O2 Saturation ABG Base Excess ABG Hemoglobin ABG Oxyhemoglobin 88.8 L ABG Sodium ABG Potassium 4.7 H ABG Chloride ABG Glucose 152 H Oxyhemoglobin Carboxyhemoglobin Sodium Potassium Chloride Carbon Dioxide BUN Creatinine Glucose POC Glucose 141 H Calcium Magnesium AST ALT Ammonia Total Creatine Kinase Troponin T C-Reactive Protein NT-Pro-B Natriuret Pep Albumin Triglycerides HDL Cholesterol Arterial Blood Glucose 152 H Urine WBC (Auto) Urine Creatinine Urine Total Protein Salicylates Acetaminophen 05/26/21 05/26/21 05/27/21 Unknown Unknown 08:00 WBC 4.2 L RBC Hgb Hct MCV MCHC RDW 21.2 H Plt Count 126 L Lymph % (Auto) [place] % (Auto) Lymph # (Auto) [place] # (Auto) Seg Neutrophils % Seg Neuts % (Manual) Lymphocytes % (Manual) Seg Neutrophils # Seg Neutrophils # Man Lymphocytes # (Manual) PT INR APTT D-Dimer ABG pH POC ABG pCO2 POC ABG pO2 ABG pO2 ABG HCO3 ABG O2 Saturation ABG Base Excess ABG Hemoglobin ABG Oxyhemoglobin ABG Sodium ABG Potassium ABG Chloride ABG Glucose Oxyhemoglobin Carboxyhemoglobin Sodium Potassium 5.2 H Chloride Carbon Dioxide BUN 47 H Creatinine 2.0 H Glucose 136 H POC Glucose Calcium Magnesium AST 64 H ALT 448 H Ammonia Total Creatine Kinase Troponin T C-Reactive Protein NT-Pro-B Natriuret Pep Albumin 3.4 L Triglycerides HDL Cholesterol Arterial Blood Glucose Urine WBC (Auto) Urine Creatinine 128.6 H Urine Total Protein Salicylates Acetaminophen 05/27/21 05/27/21 05/27/21 08:00 10:15 11:48 WBC RBC Hgb Hct MCV MCHC RDW Plt Count Lymph % (Auto) [place] % (Auto) Lymph # (Auto) [place] # (Auto) Seg Neutrophils % Seg Neuts % (Manual) Lymphocytes % (Manual) Seg Neutrophils # Seg Neutrophils # Man Lymphocytes # (Manual) PT INR APTT D-Dimer ABG pH 7.300 L POC ABG pCO2 POC ABG pO2 ABG pO2 42.1 L ABG HCO3 ABG O2 Saturation 72.8 L ABG Base Excess ABG Hemoglobin 12.7 L ABG Oxyhemoglobin ABG Sodium ABG Potassium ABG Chloride ABG Glucose Oxyhemoglobin 71.4 L Carboxyhemoglobin Sodium Potassium Chloride Carbon Dioxide BUN 52 H Creatinine 1.8 H Glucose 171 H POC Glucose 139 H Calcium 8.3 L Magnesium AST ALT Ammonia Total Creatine Kinase Troponin T C-Reactive Protein NT-Pro-B Natriuret Pep Albumin Triglycerides HDL Cholesterol Arterial Blood Glucose Urine WBC (Auto) Urine Creatinine Urine Total Protein Salicylates Acetaminophen 05/27/21 05/28/21 05/28/21 17:13 05:30 11:37 WBC RBC Hgb Hct MCV MCHC RDW Plt Count Lymph % (Auto) [place] % (Auto) Lymph # (Auto) [place] # (Auto) Seg Neutrophils % Seg Neuts % (Manual) Lymphocytes % (Manual) Seg Neutrophils # Seg Neutrophils # Man Lymphocytes # (Manual) PT INR APTT D-Dimer ABG pH POC ABG pCO2 POC ABG pO2 ABG pO2 ABG HCO3 ABG O2 Saturation ABG Base Excess ABG Hemoglobin ABG Oxyhemoglobin ABG Sodium ABG Potassium ABG Chloride ABG Glucose Oxyhemoglobin Carboxyhemoglobin Sodium Potassium Chloride Carbon Dioxide BUN 53 H Creatinine 1.6 H Glucose 118 H POC Glucose 145 H 115 H Calcium 8.0 L Magnesium 2.40 H AST ALT Ammonia Total Creatine Kinase Troponin T C-Reactive Protein NT-Pro-B Natriuret Pep Albumin Triglycerides HDL Cholesterol Arterial Blood Glucose Urine WBC (Auto) Urine Creatinine Urine Total Protein Salicylates Acetaminophen 05/28/21 05/28/21 05/29/21 13:32 Unknown 09:43 WBC RBC Hgb 11.7 L Hct MCV MCHC 31 L RDW 21.3 H Plt Count 121 L Lymph % (Auto) [place] % (Auto) Lymph # (Auto) [place] # (Auto) Seg Neutrophils % Seg Neuts % (Manual) Lymphocytes % (Manual) Seg Neutrophils # Seg Neutrophils # Man Lymphocytes # (Manual) PT INR APTT D-Dimer ABG pH 7.339 L POC ABG pCO2 POC ABG pO2 ABG pO2 53.7 L 60.9 L ABG HCO3 ABG O2 Saturation 86.5 L 90.7 L ABG Base Excess ABG Hemoglobin 12.3 L 12.0 L ABG Oxyhemoglobin ABG Sodium ABG Potassium ABG Chloride ABG Glucose Oxyhemoglobin 84.6 L 88.9 L Carboxyhemoglobin Sodium Potassium Chloride Carbon Dioxide BUN Creatinine Glucose POC Glucose Calcium Magnesium AST ALT Ammonia Total Creatine Kinase Troponin T C-Reactive Protein NT-Pro-B Natriuret Pep Albumin Triglycerides HDL Cholesterol Arterial Blood Glucose Urine WBC (Auto) Urine Creatinine Urine Total Protein Salicylates Acetaminophen 05/29/21 05/29/21 05/29/21 13:40 13:40 13:40 WBC RBC Hgb Hct MCV MCHC RDW 20.9 H Plt Count 103 L Lymph % (Auto) [place] % (Auto) Lymph # (Auto) [place] # (Auto) Seg Neutrophils % Seg Neuts % (Manual) Lymphocytes % (Manual) Seg Neutrophils # Seg Neutrophils # Man Lymphocytes # (Manual) PT 15.3 H INR APTT D-Dimer ABG pH POC ABG pCO2 POC ABG pO2 ABG pO2 ABG HCO3 ABG O2 Saturation ABG Base Excess ABG Hemoglobin ABG Oxyhemoglobin ABG Sodium ABG Potassium ABG Chloride ABG Glucose Oxyhemoglobin Carboxyhemoglobin Sodium Potassium Chloride Carbon Dioxide BUN Creatinine 1.7 H Glucose POC Glucose Calcium Magnesium AST ALT Ammonia Total Creatine Kinase Troponin T C-Reactive Protein NT-Pro-B Natriuret Pep Albumin Triglycerides HDL Cholesterol Arterial Blood Glucose Urine WBC (Auto) Urine Creatinine Urine Total Protein Salicylates Acetaminophen 05/30/21 05/30/21 05/30/21 04:42 04:42 07:47 WBC RBC Hgb 11.7 L Hct MCV 95 H MCHC RDW 20.8 H Plt Count 106 L Lymph % (Auto) [place] % (Auto) Lymph # (Auto) [place] # (Auto) Seg Neutrophils % Seg Neuts % (Manual) Lymphocytes % (Manual) Seg Neutrophils # Seg Neutrophils # Man Lymphocytes # (Manual) PT INR APTT D-Dimer ABG pH POC ABG pCO2 POC ABG pO2 ABG pO2 ABG HCO3 ABG O2 Saturation ABG Base Excess ABG Hemoglobin ABG Oxyhemoglobin ABG Sodium ABG Potassium ABG Chloride ABG Glucose Oxyhemoglobin Carboxyhemoglobin Sodium 135 L Potassium Chloride Carbon Dioxide BUN 63 H 63 H Creatinine 1.6 H 1.6 H Glucose POC Glucose Calcium 8.2 L Magnesium AST ALT Ammonia Total Creatine Kinase Troponin T C-Reactive Protein NT-Pro-B Natriuret Pep Albumin Triglycerides HDL Cholesterol Arterial Blood Glucose Urine WBC (Auto) Urine Creatinine Urine Total Protein Salicylates Acetaminophen 05/30/21 05/31/21 05/31/21 09:22 05:16 05:16 WBC RBC Hgb 11.1 L Hct MCV MCHC 31 L RDW 20.8 H Plt Count 116 L Lymph % (Auto) [place] % (Auto) Lymph # (Auto) [place] # (Auto) Seg Neutrophils % Seg Neuts % (Manual) Lymphocytes % (Manual) Seg Neutrophils # Seg Neutrophils # Man Lymphocytes # (Manual) PT INR APTT D-Dimer ABG pH 7.323 L POC ABG pCO2 POC ABG pO2 ABG pO2 107.0 H ABG HCO3 ABG O2 Saturation ABG Base Excess ABG Hemoglobin 12.4 L ABG Oxyhemoglobin ABG Sodium ABG Potassium ABG Chloride ABG Glucose Oxyhemoglobin Carboxyhemoglobin Sodium Potassium Chloride Carbon Dioxide BUN 62 H Creatinine 1.9 H Glucose 103 H POC Glucose Calcium Magnesium AST ALT Ammonia Total Creatine Kinase Troponin T C-Reactive Protein NT-Pro-B Natriuret Pep Albumin Triglycerides HDL Cholesterol Arterial Blood Glucose Urine WBC (Auto) Urine Creatinine Urine Total Protein Salicylates Acetaminophen 05/31/21 05/31/21 05/31/21 05:17 16:49 Unknown WBC RBC Hgb Hct MCV MCHC RDW Plt Count Lymph % (Auto) [place] % (Auto) Lymph # (Auto) [place] # (Auto) Seg Neutrophils % Seg Neuts % (Manual) Lymphocytes % (Manual) Seg Neutrophils # Seg Neutrophils # Man Lymphocytes # (Manual) PT INR APTT D-Dimer ABG pH POC ABG pCO2 48.4 H POC ABG pO2 63.0 L ABG pO2 ABG HCO3 ABG O2 Saturation ABG Base Excess ABG Hemoglobin 11.9 L ABG Oxyhemoglobin 91.4 L ABG Sodium ABG Potassium 4.6 H ABG Chloride ABG Glucose 110 H Oxyhemoglobin Carboxyhemoglobin Sodium Potassium Chloride Carbon Dioxide BUN Creatinine Glucose POC Glucose 109 H 107 H Calcium Magnesium AST ALT Ammonia Total Creatine Kinase Troponin T C-Reactive Protein NT-Pro-B Natriuret Pep Albumin Triglycerides HDL Cholesterol Arterial Blood Glucose 110 H Urine WBC (Auto) Urine Creatinine Urine Total Protein Salicylates Acetaminophen 06/01/21 06/01/21 06/01/21 03:06 07:00 07:00 WBC RBC Hgb 11.2 L Hct MCV 96 H MCHC 31 L RDW 20.6 H Plt Count Lymph % (Auto) [place] % (Auto) Lymph # (Auto) [place] # (Auto) Seg Neutrophils % Seg Neuts % (Manual) Lymphocytes % (Manual) Seg Neutrophils # Seg Neutrophils # Man Lymphocytes # (Manual) PT INR APTT D-Dimer ABG pH POC ABG pCO2 POC ABG pO2 55.0 L ABG pO2 ABG HCO3 ABG O2 Saturation ABG Base Excess ABG Hemoglobin 10.9 L ABG Oxyhemoglobin 87.5 L ABG Sodium 127.4 L ABG Potassium 4.6 H ABG Chloride 108.0 H ABG Glucose 108 H Oxyhemoglobin Carboxyhemoglobin Sodium Potassium Chloride Carbon Dioxide BUN 59 H Creatinine 1.6 H Glucose 104 H POC Glucose Calcium Magnesium AST ALT Ammonia Total Creatine Kinase Troponin T C-Reactive Protein NT-Pro-B Natriuret Pep Albumin Triglycerides HDL Cholesterol Arterial Blood Glucose 108 H Urine WBC (Auto) Urine Creatinine Urine Total Protein Salicylates Acetaminophen 06/01/21 06/01/21 06/02/21 17:09 23:42 04:23 WBC RBC 3.48 L Hgb 10.1 L Hct 33.1 L MCV 95 H MCHC 31 L RDW 19.9 H Plt Count Lymph % (Auto) [place] % (Auto) Lymph # (Auto) [place] # (Auto) Seg Neutrophils % Seg Neuts % (Manual) Lymphocytes % (Manual) Seg Neutrophils # Seg Neutrophils # Man Lymphocytes # (Manual) PT INR APTT D-Dimer ABG pH POC ABG pCO2 POC ABG pO2 ABG pO2 ABG HCO3 ABG O2 Saturation ABG Base Excess ABG Hemoglobin ABG Oxyhemoglobin ABG Sodium ABG Potassium ABG Chloride ABG Glucose Oxyhemoglobin Carboxyhemoglobin Sodium Potassium Chloride Carbon Dioxide BUN Creatinine Glucose POC Glucose 106 H 109 H Calcium Magnesium AST ALT Ammonia Total Creatine Kinase Troponin T C-Reactive Protein NT-Pro-B Natriuret Pep Albumin Triglycerides HDL Cholesterol Arterial Blood Glucose Urine WBC (Auto) Urine Creatinine Urine Total Protein Salicylates Acetaminophen 06/02/21 06/02/21 06/02/21 04:23 05:38 05:40 WBC RBC Hgb Hct MCV MCHC RDW Plt Count Lymph % (Auto) [place] % (Auto) Lymph # (Auto) [place] # (Auto) Seg Neutrophils % Seg Neuts % (Manual) Lymphocytes % (Manual) Seg Neutrophils # Seg Neutrophils # Man Lymphocytes # (Manual) PT INR APTT D-Dimer ABG pH POC ABG pCO2 POC ABG pO2 ABG pO2 ABG HCO3 ABG O2 Saturation ABG Base Excess ABG Hemoglobin ABG Oxyhemoglobin ABG Sodium ABG Potassium ABG Chloride ABG Glucose Oxyhemoglobin Carboxyhemoglobin Sodium Potassium Chloride Carbon Dioxide BUN 61 H Creatinine 1.7 H Glucose 119 H POC Glucose 49 L 107 H Calcium Magnesium AST ALT Ammonia Total Creatine Kinase Troponin T C-Reactive Protein NT-Pro-B Natriuret Pep Albumin Triglycerides HDL Cholesterol Arterial Blood Glucose Urine WBC (Auto) Urine Creatinine Urine Total Protein Salicylates Acetaminophen 06/02/21 06/02/21 06/03/21 10:01 11:26 04:10 WBC RBC Hgb Hct MCV MCHC RDW Plt Count Lymph % (Auto) [place] % (Auto) Lymph # (Auto) [place] # (Auto) Seg Neutrophils % Seg Neuts % (Manual) Lymphocytes % (Manual) Seg Neutrophils # Seg Neutrophils # Man Lymphocytes # (Manual) PT INR APTT D-Dimer ABG pH 7.315 L POC ABG pCO2 POC ABG pO2 62.1 L ABG pO2 ABG HCO3 ABG O2 Saturation ABG Base Excess ABG Hemoglobin 10.8 L ABG Oxyhemoglobin 91.0 L ABG Sodium 133.5 L ABG Potassium 5.0 H ABG Chloride 109.0 H ABG Glucose 124 H Oxyhemoglobin Carboxyhemoglobin Sodium Potassium Chloride Carbon Dioxide BUN Creatinine Glucose POC Glucose 117 H Calcium Magnesium AST ALT Ammonia Total Creatine Kinase Troponin T C-Reactive Protein NT-Pro-B Natriuret Pep Albumin Triglycerides 830 H HDL Cholesterol Arterial Blood Glucose 124 H Urine WBC (Auto) Urine Creatinine Urine Total Protein Salicylates Acetaminophen 06/03/21 06/03/21 06/03/21 04:10 04:10 05:36 WBC RBC 3.25 L Hgb 9.9 L Hct 31.8 L MCV 98 H MCHC 31 L RDW 19.9 H Plt Count Lymph % (Auto) 6.2 L [place] % (Auto) 13.1 H Lymph # (Auto) 0.5 L [place] # (Auto) 1.1 H Seg Neutrophils % Seg Neuts % (Manual) Lymphocytes % (Manual) Seg Neutrophils # Seg Neutrophils # Man Lymphocytes # (Manual) PT INR APTT D-Dimer ABG pH POC ABG pCO2 POC ABG pO2 ABG pO2 ABG HCO3 ABG O2 Saturation ABG Base Excess ABG Hemoglobin ABG Oxyhemoglobin ABG Sodium ABG Potassium ABG Chloride ABG Glucose Oxyhemoglobin Carboxyhemoglobin Sodium 136 L Potassium Chloride Carbon Dioxide 20 L BUN 57 H Creatinine 1.7 H Glucose 108 H POC Glucose 114 H Calcium 8.2 L Magnesium AST ALT Ammonia Total Creatine Kinase Troponin T C-Reactive Protein NT-Pro-B Natriuret Pep Albumin Triglycerides HDL Cholesterol Arterial Blood Glucose Urine WBC (Auto) Urine Creatinine Urine Total Protein Salicylates Acetaminophen 1106/03/21 06/03/21 06:55 13:06 23:30 WBC RBC Hgb Hct MCV MCHC RDW Plt Count Lymph % (Auto) [place] % (Auto) Lymph # (Auto) [place] # (Auto) Seg Neutrophils % Seg Neuts % (Manual) Lymphocytes % (Manual) Seg Neutrophils # Seg Neutrophils # Man Lymphocytes # (Manual) PT INR APTT D-Dimer ABG pH 7.298 L POC ABG pCO2 POC ABG pO2 67.4 L ABG pO2 ABG HCO3 ABG O2 Saturation ABG Base Excess ABG Hemoglobin 11.7 L ABG Oxyhemoglobin 91.2 L ABG Sodium 134.3 L ABG Potassium 4.7 H ABG Chloride 108.0 H ABG Glucose 110 H Oxyhemoglobin Carboxyhemoglobin Sodium Potassium Chloride Carbon Dioxide BUN Creatinine Glucose POC Glucose 106 H 106 H Calcium Magnesium AST ALT Ammonia Total Creatine Kinase Troponin T C-Reactive Protein NT-Pro-B Natriuret Pep Albumin Triglycerides HDL Cholesterol Arterial Blood Glucose 110 H Urine WBC (Auto) Urine Creatinine Urine Total Protein Salicylates Acetaminophen 06/04/21 06/04/21 06/04/21 05:00 05:15 05:15 WBC RBC 3.27 L Hgb 9.7 L Hct 31.6 L MCV 97 H MCHC 31 L RDW 19.3 H Plt Count Lymph % (Auto) [place] % (Auto) Lymph # (Auto) [place] # (Auto) Seg Neutrophils % Seg Neuts % (Manual) Lymphocytes % (Manual) Seg Neutrophils # Seg Neutrophils # Man Lymphocytes # (Manual) PT INR APTT D-Dimer ABG pH 7.293 L POC ABG pCO2 POC ABG pO2 ABG pO2 69.1 L ABG HCO3 ABG O2 Saturation 92.3 L ABG Base Excess -4.0 L ABG Hemoglobin 8.9 L ABG Oxyhemoglobin ABG Sodium ABG Potassium ABG Chloride ABG Glucose Oxyhemoglobin 90.3 L Carboxyhemoglobin Sodium Potassium Chloride Carbon Dioxide 21 L BUN 60 H Creatinine 1.7 H Glucose 106 H POC Glucose Calcium Magnesium AST ALT Ammonia Total Creatine Kinase Troponin T C-Reactive Protein NT-Pro-B Natriuret Pep Albumin 2.7 L Triglycerides HDL Cholesterol Arterial Blood Glucose Urine WBC (Auto) Urine Creatinine Urine Total Protein Salicylates Acetaminophen 06/04/21 06/04/21 06/04/21 05:37 13:39 13:54 WBC RBC 3.07 L Hgb 8.9 L Hct 29.5 L MCV 96 H MCHC 30 L RDW 19.4 H Plt Count Lymph % (Auto) [place] % (Auto) Lymph # (Auto) [place] # (Auto) Seg Neutrophils % Seg Neuts % (Manual) Lymphocytes % (Manual) Seg Neutrophils # Seg Neutrophils # Man Lymphocytes # (Manual) PT INR APTT D-Dimer ABG pH POC ABG pCO2 POC ABG pO2 ABG pO2 ABG HCO3 ABG O2 Saturation ABG Base Excess ABG Hemoglobin ABG Oxyhemoglobin ABG Sodium ABG Potassium ABG Chloride ABG Glucose Oxyhemoglobin Carboxyhemoglobin Sodium Potassium Chloride Carbon Dioxide BUN Creatinine Glucose POC Glucose 115 H Calcium Magnesium AST ALT Ammonia Total Creatine Kinase Troponin T C-Reactive Protein NT-Pro-B Natriuret Pep Albumin Triglycerides HDL Cholesterol Arterial Blood Glucose Urine WBC (Auto) 17.0 H Urine Creatinine Urine Total Protein Salicylates Acetaminophen 06/04/21 06/04/21 06/05/21 13:56 23:17 04:30 WBC RBC 3.07 L Hgb 9.0 L Hct 29.6 L MCV 97 H MCHC 30 L RDW 19.1 H Plt Count Lymph % (Auto) [place] % (Auto) Lymph # (Auto) [place] # (Auto) Seg Neutrophils % Seg Neuts % (Manual) Lymphocytes % (Manual) Seg Neutrophils # Seg Neutrophils # Man Lymphocytes # (Manual) PT INR APTT D-Dimer ABG pH POC ABG pCO2 POC ABG pO2 ABG pO2 ABG HCO3 ABG O2 Saturation ABG Base Excess ABG Hemoglobin ABG Oxyhemoglobin ABG Sodium ABG Potassium ABG Chloride ABG Glucose Oxyhemoglobin Carboxyhemoglobin Sodium Potassium Chloride 108.8 H Carbon Dioxide 21 L BUN 58 H Creatinine 1.8 H Glucose 105 H POC Glucose 108 H Calcium Magnesium AST ALT Ammonia Total Creatine Kinase Troponin T C-Reactive Protein NT-Pro-B Natriuret Pep Albumin Triglycerides HDL Cholesterol Arterial Blood Glucose Urine WBC (Auto) Urine Creatinine Urine Total Protein Salicylates Acetaminophen 06/05/21 06/05/21 06/05/21 04:30 05:41 09:07 WBC RBC Hgb Hct MCV MCHC RDW Plt Count Lymph % (Auto) [place] % (Auto) Lymph # (Auto) [place] # (Auto) Seg Neutrophils % Seg Neuts % (Manual) Lymphocytes % (Manual) Seg Neutrophils # Seg Neutrophils # Man Lymphocytes # (Manual) PT INR APTT D-Dimer ABG pH 7.287 L POC ABG pCO2 POC ABG pO2 ABG pO2 79.5 L ABG HCO3 ABG O2 Saturation ABG Base Excess -4.2 L ABG Hemoglobin 8.6 L ABG Oxyhemoglobin ABG Sodium ABG Potassium ABG Chloride ABG Glucose Oxyhemoglobin 94.9 L Carboxyhemoglobin Sodium Potassium Chloride 108.5 H Carbon Dioxide 21 L BUN 60 H Creatinine 1.7 H Glucose 110 H POC Glucose 111 H Calcium Magnesium AST ALT Ammonia Total Creatine Kinase Troponin T C-Reactive Protein NT-Pro-B Natriuret Pep Albumin Triglycerides HDL Cholesterol Arterial Blood Glucose Urine WBC (Auto) Urine Creatinine Urine Total Protein Salicylates Acetaminophen 06/05/21 06/05/21 06/05/21 11:39 15:57 23:26 WBC RBC Hgb Hct MCV MCHC RDW Plt Count Lymph % (Auto) [place] % (Auto) Lymph # (Auto) [place] # (Auto) Seg Neutrophils % Seg Neuts % (Manual) Lymphocytes % (Manual) Seg Neutrophils # Seg Neutrophils # Man Lymphocytes # (Manual) PT INR APTT D-Dimer ABG pH POC ABG pCO2 POC ABG pO2 ABG pO2 ABG HCO3 ABG O2 Saturation ABG Base Excess ABG Hemoglobin ABG Oxyhemoglobin ABG Sodium ABG Potassium ABG Chloride ABG Glucose Oxyhemoglobin Carboxyhemoglobin Sodium Potassium Chloride Carbon Dioxide BUN Creatinine Glucose POC Glucose 111 H 109 H 127 H Calcium Magnesium AST ALT Ammonia Total Creatine Kinase Troponin T C-Reactive Protein NT-Pro-B Natriuret Pep Albumin Triglycerides HDL Cholesterol Arterial Blood Glucose Urine WBC (Auto) Urine Creatinine Urine Total Protein Salicylates Acetaminophen 06/06/21 06/06/21 06/06/21 03:19 04:18 11:35 WBC RBC Hgb Hct MCV MCHC RDW Plt Count Lymph % (Auto) [place] % (Auto) Lymph # (Auto) [place] # (Auto) Seg Neutrophils % Seg Neuts % (Manual) Lymphocytes % (Manual) Seg Neutrophils # Seg Neutrophils # Man Lymphocytes # (Manual) PT INR APTT D-Dimer ABG pH 7.262 L POC ABG pCO2 POC ABG pO2 76.6 L ABG pO2 ABG HCO3 ABG O2 Saturation ABG Base Excess ABG Hemoglobin 10.1 L ABG Oxyhemoglobin 93.9 L ABG Sodium ABG Potassium 5.1 H ABG Chloride 111.0 H ABG Glucose 122 H Oxyhemoglobin Carboxyhemoglobin 0.4 L Sodium Potassium Chloride Carbon Dioxide BUN Creatinine Glucose POC Glucose 108 H 139 H Calcium Magnesium AST ALT Ammonia Total Creatine Kinase Troponin T C-Reactive Protein NT-Pro-B Natriuret Pep Albumin Triglycerides HDL Cholesterol Arterial Blood Glucose 122 H Urine WBC (Auto) Urine Creatinine Urine Total Protein Salicylates Acetaminophen 06/06/21 06/06/21 Unknown Unknown WBC RBC 3.18 L Hgb 9.5 L Hct 30.8 L MCV 97 H MCHC 31 L RDW 18.9 H Plt Count Lymph % (Auto) [place] % (Auto) Lymph # (Auto) [place] # (Auto) Seg Neutrophils % Seg Neuts % (Manual) Lymphocytes % (Manual) Seg Neutrophils # Seg Neutrophils # Man Lymphocytes # (Manual) PT INR APTT D-Dimer ABG pH POC ABG pCO2 POC ABG pO2 ABG pO2 ABG HCO3 ABG O2 Saturation ABG Base Excess ABG Hemoglobin ABG Oxyhemoglobin ABG Sodium ABG Potassium ABG Chloride ABG Glucose Oxyhemoglobin Carboxyhemoglobin Sodium Potassium 5.3 H Chloride Carbon Dioxide 17 L BUN 72 H Creatinine 2.5 H Glucose 140 H POC Glucose Calcium Magnesium AST ALT Ammonia Total Creatine Kinase Troponin T C-Reactive Protein NT-Pro-B Natriuret Pep Albumin Triglycerides HDL Cholesterol Arterial Blood Glucose Urine WBC (Auto) Urine Creatinine Urine Total Protein Salicylates Acetaminophen Chest x-ray: image reviewed (worsening airspace disease / infiltrates (R>L)) Allied health notes reviewed: nursing
[2021-06-06] MEDS ORDERED: SODIUM CHLORIDE 0.9% 500 ML 500 ML IV PRN (13:40)
[2021-06-06] MEDS ORDERED: SODIUM POLYSTYRENE 15 GM/60 ML ORAL LIQD PO SCH (13:45)
[2021-06-06] MEDS: VASOPRESSIN 20 UNIT in SODIUM CHLORIDE 0.9% 100 ML IV SCH ×3 (14:48→23:55)
--- NOTE | 2021-06-06 14:57 | XRay Report ---
XR chest 1V ap INDICATION / CLINICAL INFORMATION: pulmonary edema. COMPARISON: 06/04/2021 FINDINGS: SUPPORT DEVICES: The endotracheal tube tip is difficult to visualize, though appears to terminate in the right mainstem bronchus. Other support devices are stable. HEART /PULMONARY VASCULATURE: Stable. LUNGS / PLEURA: Worsening right greater than left pulmonary airspace disease. No sizable pleural effu eamon. No pneumothorax. ADDITIONAL FINDINGS: No significant additional findings. IMPRESSION: 1. Endotracheal tube is difficult to visualize, though may terminate within the right mainstem bronch us. Repeat imaging is recommended. 2. Worsening right greater than left airspace disease. Findings were discussed with patient's nurse by phone on 06/06/2021 at 1:52 PM Signer Name: Nikko Vidal MD Signed: 06/06/2021 2:52 PM Workstation Name: [id number]
--- NOTE | 2021-06-06 15:01 | Event Note ---
Date: 06/06/21 Attempted to reach Mother at number on file, with [employer] unsuccesfuly
[2021-06-06 15:21] LABS: Creatinine,Urine 222.7 mg/dL (0.1-20.0)
[2021-06-06] MEDS: PHENYLEPHRINE 100 MG in SODIUM CHLORIDE 0.9% 90 ML IV SCH (19:34)
[2021-06-07] MEDS: fentaNYL DRIP Premix 2,000 MCG/100 ML BAG IV SCH ×3 (00:26→15:21)
[2021-06-07] MEDS ORDERED: DEXTROSE 10% IN WATER 1,000 ML IV SCH (01:00)
[2021-06-07 04:58] LABS: ABG Base Excess -10.8 mmol/L (-2.0-3.0); ABG Methemoglobin 0.5 % (0.0-1.5); ABG PCO2 52.5 mm Hg; ABG PO2 97.5 mm Hg (80.0-90.0)
[2021-06-07 05:07] LABS: ABG PH 7.154 pH Units (7.350-7.450)
[2021-06-07] MEDS: CEFEPIME/NS 2 GM/100 ML 2 GM/100 ML BAG IV SCH (05:25)
[2021-06-07] MEDS ORDERED: SODIUM BICARB 8.4% 50 MEQ/50 ML SYRINGE IV ONE ×4 (06:04→13:50)
[2021-06-07] MEDS ORDERED: SODIUM CHLORIDE 0.9% 1000 ML 2,000 ML ONE (06:49)
[2021-06-07 07:19] LABS: Mean Corpuscular HGB Conc 30 % (32-34); Mean Corpuscular Volume 97 fl (84-94); Platelet Count 207 K/mm3 (140-440); Red Blood Count 3.23 M/mm3 (3.65-5.03); Red Cell Distribution Width 18.6 % (13.2-15.2)
[2021-06-07 07:33] LABS: Hemoglobin 9.3 gm/dl (11.8-15.2)
[2021-06-07 07:34] LABS: Hematocrit 31.1 % (35.5-45.6)
[2021-06-07] MEDS: SODIUM CHLORIDE 0.9% 1000 ML 1,000 ML IV SCH ×2 (07:36→20:17)
--- NOTE | 2021-06-07 07:43 | Progress Note ---
Assessment and Plan Acute Renal Failure likely on CKD Hypertension Acute Respiratory Failure Pneumonia, community-acquired Morbid obesity Obstructive sleep apnea Edema Plan: worsening kidney function likely ischemic ATN due to rising Cr and refractory hyperkalemia with minimal UOP, FINGERPRINT CLASSIFIER is warranted, however, sister and mother wanted to think about dialysis before agreeing to vascath placement and initiating dialysis. risk and benefit of starting dialysis explained and all questions were answered Renally dose medications Obtain daily weights Monitor I/O's daily Avoid nephrotoxic agents No acute indication for FINGERPRINT CLASSIFIER Subjective Date of service: 06/07/21 Principal diagnosis: Acute hypoxemic and hypercapnic resp failure; PUI COVID-19; Pneumonia; FERMIN Interval history: Renal service was reconsulted for worsenin g kidney function and decreased urine output after his pressors requirement started to get worse. Objective - Vital Signs Vital signs: Vital Signs - 12hr 06/06/21 06/06/21 06/06/21 19:45 19:50 20:00 Temperature 100.8 F H 100.5 F H Pulse Rate 117 H 118 H Pulse Rate [ Anterior Bilateral Throughout] Pulse Rate [ 120 H From Monitor] Respiratory 29 H 25 H Rate Respiratory Rate [Anterior Bilateral Throughout] Blood Pressure 86/41 87/43 O2 Sat by Pulse 96 94 Oximetry 06/06/21 06/06/21 06/06/21 20:09 20:11 20:15 Temperature Pulse Rate 120 H 117 H Pulse Rate [ 118 H Anterior Bilateral Throughout] Pulse Rate [ From Monitor] Respiratory 30 H Rate Respiratory 18 Rate [Anterior Bilateral Throughout] Blood Pressure 87/43 85/52 O2 Sat by Pulse 97 95 Oximetry 06/06/21 06/06/21 06/06/21 20:30 20:45 21:00 Temperature Pulse Rate 118 H 117 H 118 H Pulse Rate [ Anterior Bilateral Throughout] Pulse Rate [ From Monitor] Respiratory 20 26 H 24 Rate Respiratory Rate [Anterior Bilateral Throughout] Blood Pressure 92/48 91/52 101/56 O2 Sat by Pulse 93 92 94 Oximetry 06/06/21 06/06/21 06/06/21 21:15 21:31 21:45 Temperature Pulse Rate 119 H 120 H 119 H Pulse Rate [ Anterior Bilateral Throughout] Pulse Rate [ From Monitor] Respiratory 15 29 H 21 Rate Respiratory Rate [Anterior Bilateral Throughout] Blood Pressure 89/50 94/55 105/54 O2 Sat by Pulse 94 95 94 Oximetry 1106/06/21 06/06/21 22:00 22:15 22:30 Temperature Pulse Rate 120 H 118 H 120 H Pulse Rate [ Anterior Bilateral Throughout] Pulse Rate [ From Monitor] Respiratory 30 H 21 28 H Rate Respiratory Rate [Anterior Bilateral Throughout] Blood Pressure 105/50 100/51 98/49 O2 Sat by Pulse 96 94 94 Oximetry 06/06/21 06/06/21 06/06/21 22:45 23:00 23:05 Temperature Pulse Rate 119 H 120 H 120 H Pulse Rate [ Anterior Bilateral Throughout] Pulse Rate [ From Monitor] Respiratory 27 H 32 H 28 H Rate Respiratory Rate [Anterior Bilateral Throughout] Blood Pressure 83/53 84/63 84/63 O2 Sat by Pulse 94 94 95 Oximetry 06/06/21 06/06/21 06/06/21 23:15 23:30 23:45 Temperature Pulse Rate 119 H 120 H 124 H Pulse Rate [ Anterior Bilateral Throughout] Pulse Rate [ From Monitor] Respiratory 27 H 26 H 26 H Rate Respiratory Rate [Anterior Bilateral Throughout] Blood Pressure 84/63 98/54 98/54 O2 Sat by Pulse 95 95 96 Oximetry 06/07/21 06/07/21 06/07/21 00:00 00:15 00:17 Temperature 101.5 F H Pulse Rate 120 H 120 H 119 H Pulse Rate [ Anterior Bilateral Throughout] Pulse Rate [ 120 H From Monitor] Respiratory 22 27 H Rate Respiratory Rate [Anterior Bilateral Throughout] Blood Pressure 93/43 103/47 90/57 O2 Sat by Pulse 95 95 96 Oximetry 06/07/21 06/07/21 06/07/21 00:30 00:45 01:01 Temperature Pulse Rate 121 H 122 H 124 H Pulse Rate [ Anterior Bilateral Throughout] Pulse Rate [ From Monitor] Respiratory 24 20 20 Rate Respiratory Rate [Anterior Bilateral Throughout] Blood Pressure 112/49 112/49 130/59 O2 Sat by Pulse 95 94 92 Oximetry 06/07/21 06/07/21 06/07/21 01:15 01:30 01:45 Temperature Pulse Rate 124 H 122 H 127 H Pulse Rate [ Anterior Bilateral Throughout] Pulse Rate [ From Monitor] Respiratory 22 20 18 Rate Respiratory Rate [Anterior Bilateral Throughout] Blood Pressure 130/59 118/49 117/49 O2 Sat by Pulse 91 93 92 Oximetry 06/07/21 06/07/21 06/07/21 02:01 02:15 02:31 Temperature Pulse Rate 126 H 129 H 129 H Pulse Rate [ Anterior Bilateral Throughout] Pulse Rate [ From Monitor] Respiratory 24 18 24 Rate Respiratory Rate [Anterior Bilateral Throughout] Blood Pressure 110/54 110/54 122/71 O2 Sat by Pulse 93 90 94 Oximetry 06/07/21 06/07/21 06/07/21 02:45 03:01 03:15 Temperature Pulse Rate 122 H 124 H 127 H Pulse Rate [ Anterior Bilateral Throughout] Pulse Rate [ From Monitor] Respiratory 19 24 17 Rate Respiratory Rate [Anterior Bilateral Throughout] Blood Pressure 121/63 129/38 128/45 O2 Sat by Pulse 93 93 94 Oximetry 06/07/21 06/07/21 06/07/21 03:30 03:45 04:00 Temperature 102 F H Pulse Rate 129 H 125 H 125 H Pulse Rate [ Anterior Bilateral Throughout] Pulse Rate [ 120 H From Monitor] Respiratory 27 H 24 25 H Rate Respiratory Rate [Anterior Bilateral Throughout] Blood Pressure 118/75 118/75 O2 Sat by Pulse 97 96 94 Oximetry 06/07/21 06/07/21 06/07/21 04:01 04:15 04:31 Temperature Pulse Rate 122 H 125 H 122 H Pulse Rate [ Anterior Bilateral Throughout] Pulse Rate [ From Monitor] Respiratory 19 20 20 Rate Respiratory Rate [Anterior Bilateral Throughout] Blood Pressure 104/45 104/45 115/27 O2 Sat by Pulse 97 96 96 Oximetry 06/07/21 06/07/21 06/07/21 04:45 05:01 05:15 Temperature Pulse Rate 120 H 120 H 122 H Pulse Rate [ Anterior Bilateral Throughout] Pulse Rate [ From Monitor] Respiratory 23 19 22 Rate Respiratory Rate [Anterior Bilateral Throughout] Blood Pressure 115/27 115/27 115/27 O2 Sat by Pulse 96 96 95 Oximetry 06/07/21 06/07/21 06/07/21 05:31 05:45 06:01 Temperature Pulse Rate 124 H 120 H 123 H Pulse Rate [ Anterior Bilateral Throughout] Pulse Rate [ From Monitor] Respiratory 22 22 20 Rate Respiratory Rate [Anterior Bilateral Throughout] Blood Pressure 115/27 49/27 107/60 O2 Sat by Pulse 95 95 94 Oximetry 06/07/21 06/07/21 06/07/21 06:15 06:30 06:45 Temperature Pulse Rate 120 H 122 H 122 H Pulse Rate [ Anterior Bilateral Throughout] Pulse Rate [ From Monitor] Respiratory 20 16 27 H Rate Respiratory Rate [Anterior Bilateral Throughout] Blood Pressure 112/55 69/39 69/39 O2 Sat by Pulse 97 92 Oximetry 06/07/21 06/07/21 07:01 07:15 Temperature Pulse Rate 114 H 114 H Pulse Rate [ Anterior Bilateral Throughout] Pulse Rate [ From Monitor] Respiratory 30 H 30 H Rate Respiratory Rate [Anterior Bilateral Throughout] Blood Pressure 69/39 69/39 O2 Sat by Pulse 96 90 Oximetry - Lab 06/07/21 07:02 06/07/21 12:20 Most recent lab results ABG pH 7.154 pH Units (7.350-7.450) L* 06/07/21 04:33 ABG pCO2 52.5 mm Hg 06/07/21 04:33 ABG pO2 97.5 mm Hg (80.0-90.0) H 06/07/21 04:33 ABG HCO3 18.0 mmol/L (20.0-26.0) L 06/07/21 04:33 ABG O2 Saturation 96.0 % (95.0-99.0) 06/07/21 04:33 Calcium 9.0 mg/dL (8.4-10.2) 06/07/21 07:02 Phosphorus 2.90 mg/dL (2.5-4.5) 05/28/21 05:30 Magnesium 2.40 mg/dL (1.7-2.3) H 05/28/21 05:30 Urine Creatinine 222.7 mg/dL (0.1-20.0) H 06/06/21 13:30 Urine Sodium 18 mmol/L 06/06/21 13:30 Urine Total Protein 80 mg/dL (5-11.8) H 05/26/21 12:37 Medications & Allergies - Medications Allergies/Adverse Reactions: Allergies No Known Allergies Allergy (Unverified 05/25/21 12:48) Home Medications: Home Medications Medication Instructions Recorded Confirmed Last Taken Type Amoxicillin [Amoxicillin TAB] 875 mg PO BID #20 tablet 11/12/14 05/29/21 Unknown Rx Apixaban 2.5 mg PO BID 05/29/21 05/29/21 Unknown History Cholecalciferol (Vitamin D3) 3 mg PO 1XW 05/29/21 05/29/21 Unknown History Metoprolol 150 mg PO BID 05/29/21 05/29/21 Unknown History Torsemide 80 mg PO DAILY 05/29/21 05/29/21 Unknown History Active Medications: Generic Name Dose Route Start Last Admin Trade Name Freq PRN Reason Stop Dose Admin Acetaminophen 650 mg 05/23/21 20:42 06/06/21 22:42 Acetaminophen 325 Mg Tab PO 650 mg Q4H PRN Administration Pain MILD(1-3)/Fever >100.5/CASTORENA Albuterol 2.5 mg 05/23/21 21:11 Albuterol 2.5 Mg/3 Ml Nebu IH Q4HRT PRN Shortness Of Breath Albuterol/Ipratropium 1 ampul 05/29/21 08:00 06/06/21 20:09 Ipratropium/Albuterol Sulfate 3 Ml Ampul.Neb IH 1 ampul TIDRT ROSEMARIE Administration Lipase/Protease/Amylase 1 each 05/24/21 10:14 Lipase 10,500/Protease 25,000/Amylase 43,750 (Units) Dr Cap FEEDTUBE PRN PRN For Clogged Feeding Tube Apixaban 2.5 mg 05/29/21 13:00 06/06/21 22:43 Apixaban 2.5 Mg Tab PO 2.5 mg Q12HR ROSEMARIE Administration Protocol Famotidine 10 mg 06/06/21 22:00 06/06/21 22:41 Famotidine 20 Mg Tab FEEDTUBE 10 mg BID ROSEMARIE Administration Hydrophilic Ointment 1 applic 05/23/21 12:34 Lip Therapy Vaseline TP Q2HR PRN Dry Lips Fentanyl Citrate 2,000 mcg in 100 mls @ 8.528 mls/hr 05/23/21 13:00 06/07/21 05:30 Fentanyl Drip Premix IV 0 mcg/kg/hr TITR ROSEMARIE 0 mls/hr Titration Protocol 1 MCG/KG/HR Cefepime HCl 2 gm in 100 mls @ 200 mls/hr 06/07/21 04:00 06/07/21 05:25 Cefepime/Ns 2 Gm/100 Ml IV 200 mls/hr Q24H ROSEMARIE Administration Protocol Sodium Chloride 500 mls @ 1 mls/hr 06/06/21 13:40 06/06/21 14:18 Nacl 0.9% 500 Ml IV 1 mls/hr DIRECT PRN Administration ARTERIAL LINE FLUSH Vasopressin 20 unit/ Sodium 101 mls @ 9.09 mls/hr 06/06/21 15:00 06/06/21 23:55 Chloride IV 0.03 units/min TITR ROSEMARIE 9.09 mls/hr Administration Protocol 0.03 UNITS/MIN Phenylephrine HCl 100 mg/ 100 mls @ 3 mls/hr 06/06/21 19:00 06/07/21 07:37 Sodium Chloride IV 280 mcg/min TITR ROSEMARIE 16.8 mls/hr Titration Protocol 50 MCG/MIN Dextrose 1,000 mls @ 30 mls/hr 06/07/21 01:00 D10w IV DIRECT ROSEMARIE Sodium Bicarbonate 150 meq/ 1,150 mls @ 100 mls/hr 06/07/21 08:00 Dextrose IV DIRECT ROSEMARIE Sodium Chloride 1,000 mls @ 250 mls/hr 06/07/21 07:15 06/07/21 07:36 Nacl 0.9% 1000 Ml IV 06/08/21 11:14 250 mls/hr DIRECT ROSEMARIE Administration Multi-Ingred Cream/Lotion/Oil/Oint 1 applic 05/23/21 12:34 05/30/21 22:14 Mineral Oil/Petrolatum, White Ophth Oint 3.5 Gm OU 1 applic Q4HR PRN Administration Dry Eye(s) Ondansetron HCl 4 mg 05/23/21 20:42 Ondansetron 4 Mg/2 Ml Inj IV Q8H PRN Nausea And Vomiting Quetiapine Fumarate 100 mg 06/03/21 22:00 06/06/21 22:42 Quetiapine 100 Mg Tab PO 100 mg BID ROSEMARIE Administration Senna/Docusate Sodium 1 tab 05/23/21 22:00 06/06/21 22:41 Sennosides/Docusate Sodium 8.6/50 Mg Tab FEEDTUBE 1 tab BID ROSEMARIE Administration Simple Syrup 15 ml 05/24/21 10:14 Simple Syrup 15 Ml FEEDTUBE PRN PRN Hypoglycemia Simple Syrup 30 ml 05/24/21 10:14 Simple Syrup 15 Ml FEEDTUBE PRN PRN Hypoglycemia Sodium Bicarbonate 325 mg 05/24/21 10:14 Sodium Bicarbonate 325 Mg Tab FEEDTUBE PRN PRN For Clogged Feeding Tube Sodium Bicarbonate 50 meq 06/07/21 08:00 06/07/21 07:35 Sodium Bicarb 8.4% 50 Meq/50 Ml Syringe IV 06/07/21 08:01 50 meq ONCE ONE Administration Sodium Chloride 10 ml 05/23/21 22:00 06/06/21 22:44 Sodium Chloride 0.9% 10 Ml Flush Syringe IV 10 ml BID ROSEMARIE Administration Sodium Chloride 10 ml 05/23/21 20:42 Sodium Chloride 0.9% 10 Ml Flush Syringe IV PRN PRN LINE FLUSH
[2021-06-07] MEDS: PHENYLEPHRINE 100 MG in SODIUM CHLORIDE 0.9% 90 ML IV SCH ×3 (07:45→20:17)
[2021-06-07] MEDS ORDERED: DEXTROSE 50% IN WATER (25GM) 50 ML SYRINGE IV SCH (08:00)
[2021-06-07] MEDS ORDERED: INSULIN REGULAR, HUMAN 100 UNITS/1 ML IV SCH (08:00)
[2021-06-07] MEDS ORDERED: SODIUM POLYSTYRENE 15 GM/60 ML ORAL LIQD PO SCH (08:00)
[2021-06-07] MEDS ORDERED: CALCIUM GLUCONATE 2,000 MG in SODIUM CHLORIDE 0.9% 100 ML IV ONE ×2 (09:00→13:50)
[2021-06-07] MEDS: SODIUM BICARBONATE 150 MEQ in DEXTROSE 5% IN WATER 1,000 ML IV SCH ×2 (09:00→20:58)
[2021-06-07] MEDS: APIXABAN 2.5 MG TAB PO SCH ×2 (09:01→23:09)
[2021-06-07] MEDS: FAMOTIDINE 20 MG TAB FEEDTUBE SCH ×2 (09:01→23:08)
[2021-06-07] MEDS: SENNOSIDES/DOCUSATE SODIUM 8.6/50 MG TAB FEEDTUBE SCH ×2 (09:02→23:08)
[2021-06-07] MEDS: QUEtiapine 100 MG TAB PO SCH ×2 (09:02→23:09)
[2021-06-07] MEDS: IPRATROPIUM/ALBUTEROL SULFATE 3 ML AMPUL.NEB IH SCH ×3 (10:39→19:15)
--- NOTE | 2021-06-07 11:02 | Progress Note ---
Assessment and Plan Acute hypoxic respiratory failure Sinus tachycardia Normal LVEF Sepsis On IV levophed, IV vasopressin, IV Jaciel-Synephrine Low-grade fever Obstructive sleep apnea Secondary RV dysfunction Acute renal failure Morbid obesity Recommendations: No new cardiac recommendations Wean pressors as tolerated Wean mechanical ventilation as tolerated Prognosis guarded Subjective Date of service: 06/07/21 Principal diagnosis: Acute hypoxemic and hypercapnic resp failure; PUI COVID-19; Pneumonia; FERMIN Interval history: Patient continues to be intubated and mechanically ventilated. Tele showing sinus tachycardia. On IV levophed, IV vasopressin, IV Jaciel-Synephrine. Objective Vital Signs Temp Pulse Pulse Pulse Resp Resp BP 06/07/21 09:15 06/07/21 07:15 114 H 30 H 69/39 06/07/21 07:01 114 H 30 H 69/39 06/07/21 06:45 122 H 27 H 69/39 06/07/21 06:30 122 H 16 69/39 06/07/21 06:15 120 H 20 112/55 06/07/21 06:01 123 H 20 107/60 06/07/21 05:45 120 H 22 49/27 06/07/21 05:31 124 H 22 115/27 06/07/21 05:15 122 H 22 115/27 06/07/21 05:01 120 H 19 115/27 06/07/21 04:45 120 H 23 115/27 06/07/21 04:31 122 H 20 115/27 06/07/21 04:15 125 H 20 104/45 06/07/21 04:01 122 H 19 104/45 06/07/21 04:00 102 F H 125 H 120 H 25 H 06/07/21 03:45 125 H 24 118/75 06/07/21 03:30 129 H 27 H 118/75 06/07/21 03:15 127 H 17 128/45 06/07/21 03:01 124 H 24 129/38 06/07/21 02:45 122 H 19 121/63 06/07/21 02:31 129 H 24 122/71 06/07/21 02:15 129 H 18 110/54 06/07/21 02:01 126 H 24 110/54 06/07/21 01:45 127 H 18 117/49 06/07/21 01:30 122 H 20 118/49 06/07/21 01:15 124 H 22 130/59 06/07/21 01:01 124 H 20 130/59 06/07/21 00:45 122 H 20 112/49 06/07/21 00:30 121 H 24 112/49 06/07/21 00:17 119 H 90/57 06/07/21 00:15 120 H 27 H 103/47 06/07/21 00:00 101.5 F H 120 H 120 H 22 93/43 06/06/21 23:45 124 H 26 H 98/54 06/06/21 23:30 120 H 26 H 98/54 06/06/21 23:15 119 H 27 H 84/63 06/06/21 23:05 120 H 28 H 84/63 06/06/21 23:00 120 H 32 H 84/63 06/06/21 22:45 119 H 27 H 83/53 06/06/21 22:30 120 H 28 H 98/49 06/06/21 22:15 118 H 21 100/51 06/06/21 22:00 120 H 30 H 105/50 06/06/21 21:45 119 H 21 105/54 06/06/21 21:31 120 H 29 H 94/55 06/06/21 21:15 119 H 15 89/50 06/06/21 21:00 118 H 24 101/56 06/06/21 20:45 117 H 26 H 91/52 06/06/21 20:30 118 H 20 92/48 06/06/21 20:15 117 H 30 H 85/52 06/06/21 20:11 120 H 87/43 06/06/21 20:09 118 H 18 06/06/21 20:00 100.5 F H 118 H 120 H 25 H 87/43 06/06/21 19:50 100.8 F H 06/06/21 19:45 117 H 29 H 86/41 06/06/21 19:30 113 H 29 H 73/43 06/06/21 19:15 117 H 31 H 81/45 06/06/21 19:00 118 H 30 H 79/43 06/06/21 18:45 117 H 30 H 86/43 06/06/21 18:30 121 H 30 H 78/43 06/06/21 18:15 124 H 30 H 88/52 06/06/21 18:00 124 H 30 H 105/48 06/06/21 17:54 98.7 F 06/06/21 17:45 122 H 30 H 117/75 06/06/21 17:31 135 H 29 H 117/75 06/06/21 17:15 118 H 14 113/68 06/06/21 17:00 123 H 17 113/68 06/06/21 16:58 119 H 113/68 06/06/21 16:45 130 H 16 115/73 06/06/21 16:31 125 H 26 H 121/66 06/06/21 16:15 135 H 16 121/80 06/06/21 16:00 131 H 131 H 21 113/70 06/06/21 15:45 130 H 30 H 104/71 06/06/21 15:30 131 H 22 112/64 06/06/21 15:15 147 H 29 H 113/74 06/06/21 15:00 136 H 144 H 27 H 33 H 124/68 06/06/21 14:45 142 H 34 H 112/57 06/06/21 14:30 138 H 30 H 144/73 06/06/21 14:15 154 H 32 H 136/55 06/06/21 14:00 136 H 30 H 136/55 06/06/21 13:45 139 H 22 127/71 06/06/21 13:30 134 H 26 H 127/71 06/06/21 13:15 135 H 23 117/78 06/06/21 13:00 125 H 26 H 112/61 06/06/21 12:45 100.9 F H 128 H 23 106/63 06/06/21 12:30 140 H 21 111/75 06/06/21 12:18 124 H 114/65 06/06/21 12:15 119 H 30 H 114/65 06/06/21 12:00 120 H 124 H 30 H 111/63 06/06/21 11:45 124 H 30 H 116/64 06/06/21 11:30 123 H 30 H 106/62 06/06/21 11:15 129 H 29 H 89/59 Pulse Ox 06/07/21 09:15 97 06/07/21 07:15 90 06/07/21 07:01 96 06/07/21 06:45 11/14/21 06:30 92 06/07/21 06:15 97 06/07/21 06:01 94 06/07/21 05:45 95 06/07/21 05:31 95 06/07/21 05:15 95 06/07/21 05:01 96 06/07/21 04:45 96 06/07/21 04:31 96 06/07/21 04:15 96 06/07/21 04:01 97 06/07/21 04:00 94 06/07/21 03:45 96 06/07/21 03:30 97 06/07/21 03:15 94 06/07/21 03:01 93 06/07/21 02:45 93 06/07/21 02:31 94 06/07/21 02:15 90 06/07/21 02:01 93 06/07/21 01:45 92 06/07/21 01:30 93 06/07/21 01:15 91 06/07/21 01:01 92 06/07/21 00:45 94 06/07/21 00:30 95 06/07/21 00:17 96 06/07/21 00:15 95 06/07/21 00:00 95 06/06/21 23:45 96 06/06/21 23:30 95 06/06/21 23:15 95 06/06/21 23:05 95 06/06/21 23:00 94 06/06/21 22:45 94 06/06/21 22:30 94 06/06/21 22:15 94 06/06/21 22:00 96 06/06/21 21:45 94 06/06/21 21:31 95 06/06/21 21:15 94 06/06/21 21:00 94 06/06/21 20:45 92 06/06/21 20:30 93 06/06/21 20:15 95 06/06/21 20:11 97 06/06/21 20:09 06/06/21 20:00 94 06/06/21 19:50 06/06/21 19:45 96 06/06/21 19:30 93 06/06/21 19:15 92 06/06/21 19:00 92 06/06/21 18:45 94 06/06/21 18:30 94 06/06/21 18:15 93 06/06/21 18:00 92 06/06/21 17:54 06/06/21 17:45 93 06/06/21 17:31 92 06/06/21 17:15 93 06/06/21 17:00 89 06/06/21 16:58 89 06/06/21 16:45 89 06/06/21 16:31 89 06/06/21 16:15 88 06/06/21 16:00 92 06/06/21 15:45 89 06/06/21 15:30 87 06/06/21 15:15 90 06/06/21 15:00 93 06/06/21 14:45 89 06/06/21 14:30 06/06/21 14:15 95 06/06/21 14:00 94 06/06/21 13:45 95 06/06/21 13:30 92 06/06/21 13:15 93 06/06/21 13:00 93 06/06/21 12:45 93 06/06/21 12:30 93 06/06/21 12:18 92 06/06/21 12:15 90 06/06/21 12:00 92 06/06/21 11:45 92 06/06/21 11:30 95 06/06/21 11:15 94 - Physical Examination General: Other (Sedated on mechanical ventilator) HEENT: Positive: Normocephaly Neck: Positive: neck supple. Negative: JVD/HJR Cardiac: Positive: Tachycardia Lungs: Positive: Ventilated Respirations Neuro: Positive: Other (Sedated, on the vent) Abdomen: Positive: Soft Skin: Positive: Clear Extremities: Present: +1 Edema - Labs and Meds CBC 06/06/21 06/07/21 Range/Units Unknown 07:02 WBC 10.3 12.4 H (4.5-11.0) K/mm3 RBC 3.18 L 3.23 L (3.65-5.03) M/mm3 Hgb 9.5 L 9.3 L (11.8-15.2) gm/dl Hct 30.8 L 31.1 L (35.5-45.6) % Plt Count 185 207 (140-440) K/mm3 Comprehensive Metabolic Panel 06/06/21 06/07/21 Range/Units Unknown 07:02 Sodium 139 140 (137-145) mmol/L Potassium 5.3 H 6.6 H* D (3.6-5.0) mmol/L Chloride 106.7 105.4 (98-107) mmol/L Carbon Dioxide 17 L 18 L (22-30) mmol/L BUN 72 H 84 H (9-20) mg/dL Creatinine 2.5 H 3.0 H (0.8-1.3) mg/dL Glucose 140 H 104 H (75-100) mg/dL Calcium 9.2 9.0 (8.4-10.2) mg/dL - Imaging and Cardiology EKG: report reviewed (Sinus tachycardia no acute ST-T wave changes) - Allied health notes Allied health notes reviewed: nursing
--- NOTE | 2021-06-07 11:51 | Procedure Note ---
Date of procedure: 06/07/21 Pre-op diagnosis: Sepsis Post-op diagnosis: same Procedure: Arterial Line Placement Patient was evaluated and required arterial line placement for Hemodynanic monitoring due to high pressors requirement. This is an emergent procedure, unable to get a cuff pressure on patient at this time A time-out was completed verifying correct patient, procedure, site, and positioning. Hand hygiene were performed immediately prior to the procedure and sterile technique was used throughout the procedure. After an Enrique test was performed to ensure adequate perfusion, the vessel was identify using an ultrasound machine, the right wrist was then prepped using chlorhexidine scrub and draped in sterile fashion using a three quarter sheet drape. The radial artery was then again identified and the wrist was positioned in the usual fashion. Anesthesia was achieved using 1% lidocaine. Utilizing the Seldinger technique, a finder needle was inserted into the radial artery under ultrasound guidance, pulsating arterial blood return was obtained, then a guidewire was advanced easily into the radial artery. The catheter was then advanced over the wire and the needle and wire were withdrawn. The catheter was then connected to the diet tech and zeroed, appropriate waveform and blood pressure tracing was observed on the monitor. The catheter was sutured in place, a Biopatch was placed at the insertion site and covered with a sterile dressing. The patient tolerated the procedure well and no complications noted. Total Time Spent with Patient (Minutes): 60 minutes Estimated blood loss: minimal Disposition: ICU
[2021-06-07] MEDS: VASOPRESSIN 20 UNIT in SODIUM CHLORIDE 0.9% 100 ML IV SCH ×2 (12:45→23:45)
[2021-06-07 13:11] LABS: Calcium 9.2 mg/dL (8.4-10.2)
[2021-06-07] MEDS ORDERED: INSULIN REGULAR, HUMAN 100 UNITS/1 ML IV ONE (13:52)
[2021-06-07] MEDS ORDERED: DEXTROSE 50% IN WATER (25GM) 50 ML SYRINGE IV ONE (13:53)
--- NOTE | 2021-06-07 14:34 | Progress Note ---
Assessment and Plan Acute possibly on chronic hypoxemic and hypercapnic respiratory failure Pneumonia, community-acquired Acute toxic metabolic encephalopathy Person under investigation for COVID-19 Morbid obesity Obstructive sleep apnea History of hypertension Acute kidney injury Hyperkalemia Elevated serum transaminases Possible shock liver Hyperammonemia Non-ST elevation myocardial infarction - family has refused vascath placement or dialysis while they discuss amongst themselves; i spoke with his mother and sister yesterday as did the forestry professor) - continue compensatory hyperventilation - serum K+ better (continue medical management) - follow repeat US chest +/- thoracentesis - de-escalate antiinfective's per ID recommendations - repeat ABG at 9pm tonight - continue care as below otherwise; - wean vasopressors for target MAP > 65 mmHg - continue Eliquis - continue Revatio re: pulm HTN - nephrology input appreciated (azotemia improving) - continue Daily SAT and SBT assessment as tolerated - continue to wean supplemental oxygen for target O2 sat's > 90% acutely - VAP bundle addressed - continue lung protective strategies - continue bronchodilators with pulmonary hygiene per RT - wean per pulmonary driven protocols otherwise - avoid nephrotoxins, renally dose all medications - continue accuchecks with glycemic control per SSI (While critically ill target blood glucose of 140-180 mg/dL; avoid hypoglycemia) - sedation prn for target RASS 0 to -1 - continue to avoid benzodiazepine's, reduce the possibility of delirium - AB's per ID rec's - prn analgesia per CPOT score - Maintenance of sleep-wake cycle, avoid delirium - continue enteral nutritional support at goal rate as tolerated - G.I. & VTE prophylaxis - PT/OT/ROM exercises - continue mobility protocols for pressure ulcer prophylaxis - Monitor hemodynamics closely - continue other care per attending / other consultants - discharge planning ongoing concurrently COVID SPECIFIC INTERVENTIONS - COVID-19 test result pending .... Re-evaluate in am & prn CONDITION: CRITICAL PROGNOSIS: GUARDED CODE STATUS: FULL CODE The high probability of a clinically significant, sudden or life-threatening deterioration of the [respiratory, cardiovascular, renal & neurologic] system(s) required my full and direct attention, intervention and personal management. The aggregate critical care time was [34] minutes without overlap. Time includes spent on; [x] Data Review and interpretation [x] Patient assessment and monitoring of vital signs [x] Documentation [x] Medication orders and management Subjective Date of service: 06/07/21 Principal diagnosis: Acute hypoxemic and hypercapnic resp failure; PUI COVID-19; Pneumonia; FERMIN Interval history: Patient is seen today for: Acute hypoxemic and hypercapnic respiratory failure; PUI NCOVID-19; Pneumonia; CAP; FERMIN; REVA Seen and examined at bedside; 24hour events reviewed; nursing and respiratory care staff consulted; no adverse overnight events reported to me; remains on MVS; remains on MVS; pH better; remains on vasopressors (Levophed & Vasopressin); lethargic; no emesis or overt aspiration and no high grade fevers documented last 24 hours Objective Vital Signs - 12hr 06/07/21 06/07/21 06/07/21 02:45 03:01 03:15 Temperature Pulse Rate 122 H 124 H 127 H Pulse Rate [ From Monitor] Respiratory 19 24 17 Rate Blood Pressure 121/63 129/38 128/45 O2 Sat by Pulse 93 93 94 Oximetry 06/07/21 06/07/21 06/07/21 03:30 03:45 04:00 Temperature 102 F H Pulse Rate 129 H 125 H 125 H Pulse Rate [ 120 H From Monitor] Respiratory 27 H 24 25 H Rate Blood Pressure 118/75 118/75 O2 Sat by Pulse 97 96 94 Oximetry 06/07/21 06/07/21 06/07/21 04:01 04:15 04:31 Temperature Pulse Rate 122 H 125 H 122 H Pulse Rate [ From Monitor] Respiratory 19 20 20 Rate Blood Pressure 104/45 104/45 115/27 O2 Sat by Pulse 97 96 96 Oximetry 06/07/21 06/07/21 06/07/21 04:45 05:01 05:15 Temperature Pulse Rate 120 H 120 H 122 H Pulse Rate [ From Monitor] Respiratory 23 19 22 Rate Blood Pressure 115/27 115/27 115/27 O2 Sat by Pulse 96 96 95 Oximetry 06/07/21 06/07/21 06/07/21 05:31 05:45 06:01 Temperature Pulse Rate 124 H 120 H 123 H Pulse Rate [ From Monitor] Respiratory 22 22 20 Rate Blood Pressure 115/27 49/27 107/60 O2 Sat by Pulse 95 95 94 Oximetry 06/07/21 06/07/21 06/07/21 06:15 06:30 06:45 Temperature Pulse Rate 120 H 122 H 122 H Pulse Rate [ From Monitor] Respiratory 20 16 27 H Rate Blood Pressure 112/55 69/39 69/39 O2 Sat by Pulse 97 92 Oximetry 06/07/21 06/07/21 06/07/21 07:01 07:15 09:15 Temperature Pulse Rate 114 H 114 H Pulse Rate [ From Monitor] Respiratory 30 H 30 H Rate Blood Pressure 69/39 69/39 O2 Sat by Pulse 96 90 97 Oximetry 06/07/21 13:35 Temperature Pulse Rate Pulse Rate [ From Monitor] Respiratory Rate Blood Pressure O2 Sat by Pulse 100 Oximetry Constitutional: appears uncomfortable, other (middle aged morbidly obese male with mildly increased respiratory effort at rest on MVS) Eyes: non-icteric ENT: oropharynx moist, other (ETT 24 cm FRANCIS) Neck: supple, no lymphadenopathy, no JVD Effort: mildly labored Ascultation: Bilateral: diminished breath sounds, rhonchi Percussion: Bilateral: not dull Cardiovascular: regular rate and rhythm Gastrointestinal: normoactive bowel sounds, soft, non-tender, non-distended Integumentary: rash (stasis dermatitis) Extremities: no cyanosis, pulses normal, no ischemia or petechiae, edema (trace) Neurologic: non-focal exam (grossly), pupils equal and round, CN II-XII normal, other (sedated) Psychiatric: other (sedated) CBC and BMP: 06/08/21 04:21 06/08/21 04:21 ABG, PT/INR, D-dimer: ABG ABG pH 7.128 (7.320-7.450) L 06/07/21 09:48 POC ABG pCO2 46.8 mmHg (32.0-48.0) 06/07/21 09:48 ABG pCO2 52.5 mm Hg 06/07/21 04:33 POC ABG pO2 73.8 mmHg (83-108) L 06/07/21 09:48 ABG pO2 97.5 mm Hg (80.0-90.0) H 06/07/21 04:33 POC ABG HCO3 15.1 06/07/21 09:48 ABG O2 Saturation 91.6 (0-100) 06/07/21 09:48 PT/INR, D-dimer PT 15.3 Sec. (12.2-14.9) H 05/29/21 13:40 INR 1.09 (0.87-1.13) 05/29/21 13:40 D-Dimer 4444.85 ng/mlDDU (0-234) H 05/23/21 15:09 Abnormal lab findings: Abnormal Labs 05/23/21 05/23/21 05/23/21 15:00 15:09 15:09 WBC RBC Hgb Hct MCV 95 H MCHC 30 L RDW 20.1 H Plt Count Lymph % (Auto) 5.9 L [place] % (Auto) Lymph # (Auto) 0.6 L [place] # (Auto) Seg Neutrophils % 87.5 H Seg Neuts % (Manual) Lymphocytes % (Manual) Seg Neutrophils # 8.2 H Seg Neutrophils # Man Lymphocytes # (Manual) PT 18.1 H INR 1.36 H APTT 23.1 L D-Dimer ABG pH 7.215 L POC ABG pCO2 POC ABG pO2 ABG pO2 ABG HCO3 28.4 H ABG O2 Saturation ABG Base Excess ABG Hemoglobin 13.5 L ABG Oxyhemoglobin ABG Sodium ABG Potassium ABG Chloride ABG Glucose Oxyhemoglobin 92.6 L Carboxyhemoglobin Sodium Potassium Chloride Carbon Dioxide BUN Creatinine Glucose POC Glucose Calcium Magnesium AST ALT Ammonia Total Creatine Kinase Troponin T C-Reactive Protein NT-Pro-B Natriuret Pep Albumin Triglycerides HDL Cholesterol Arterial Blood Glucose Urine WBC (Auto) Urine Creatinine Urine Total Protein Salicylates Acetaminophen 05/23/21 05/23/21 05/23/21 15:09 15:09 15:09 WBC RBC Hgb Hct MCV MCHC RDW Plt Count Lymph % (Auto) [place] % (Auto) Lymph # (Auto) [place] # (Auto) Seg Neutrophils % Seg Neuts % (Manual) Lymphocytes % (Manual) Seg Neutrophils # Seg Neutrophils # Man Lymphocytes # (Manual) PT INR APTT D-Dimer ABG pH POC ABG pCO2 POC ABG pO2 ABG pO2 ABG HCO3 ABG O2 Saturation ABG Base Excess ABG Hemoglobin ABG Oxyhemoglobin ABG Sodium ABG Potassium ABG Chloride ABG Glucose Oxyhemoglobin Carboxyhemoglobin Sodium Potassium 5.2 H Chloride Carbon Dioxide BUN 40 H Creatinine 3.2 H Glucose 133 H POC Glucose Calcium Magnesium AST 1094 H ALT 1089 H Ammonia 75.0 H Total Creatine Kinase Troponin T 0.038 H C-Reactive Protein NT-Pro-B Natriuret Pep Albumin 3.0 L Triglycerides HDL Cholesterol 29 L Arterial Blood Glucose Urine WBC (Auto) Urine Creatinine Urine Total Protein Salicylates < 0.3 L Acetaminophen 05/23/21 05/23/21 05/23/21 15:09 15:09 15:09 WBC RBC Hgb Hct MCV MCHC RDW Plt Count Lymph % (Auto) [place] % (Auto) Lymph # (Auto) [place] # (Auto) Seg Neutrophils % Seg Neuts % (Manual) Lymphocytes % (Manual) Seg Neutrophils # Seg Neutrophils # Man Lymphocytes # (Manual) PT INR APTT D-Dimer 4444.85 H ABG pH POC ABG pCO2 POC ABG pO2 ABG pO2 ABG HCO3 ABG O2 Saturation ABG Base Excess ABG Hemoglobin ABG Oxyhemoglobin ABG Sodium ABG Potassium ABG Chloride ABG Glucose Oxyhemoglobin Carboxyhemoglobin Sodium Potassium Chloride Carbon Dioxide BUN Creatinine Glucose POC Glucose Calcium Magnesium AST ALT Ammonia Total Creatine Kinase 48 L Troponin T C-Reactive Protein NT-Pro-B Natriuret Pep 64275 H Albumin Triglycerides HDL Cholesterol Arterial Blood Glucose Urine WBC (Auto) Urine Creatinine Urine Total Protein Salicylates Acetaminophen 5.0 L 05/23/21 05/23/21 05/23/21 19:10 20:48 Unknown WBC RBC Hgb Hct MCV MCHC RDW Plt Count Lymph % (Auto) [place] % (Auto) Lymph # (Auto) [place] # (Auto) Seg Neutrophils % Seg Neuts % (Manual) Lymphocytes % (Manual) Seg Neutrophils # Seg Neutrophils # Man Lymphocytes # (Manual) PT INR APTT D-Dimer ABG pH 7.332 L POC ABG pCO2 POC ABG pO2 ABG pO2 74.0 L ABG HCO3 ABG O2 Saturation 94.4 L ABG Base Excess ABG Hemoglobin 12.5 L ABG Oxyhemoglobin ABG Sodium ABG Potassium ABG Chloride ABG Glucose Oxyhemoglobin 92.3 L Carboxyhemoglobin Sodium Potassium Chloride Carbon Dioxide BUN Creatinine Glucose POC Glucose Calcium Magnesium AST ALT Ammonia Total Creatine Kinase Troponin T C-Reactive Protein 10.00 H NT-Pro-B Natriuret Pep Albumin Triglycerides HDL Cholesterol Arterial Blood Glucose Urine WBC (Auto) 34.0 H Urine Creatinine Urine Total Protein Salicylates Acetaminophen 05/24/21 05/24/21 05/24/21 04:55 04:55 09:15 WBC RBC Hgb Hct MCV 95 H MCHC 31 L RDW 19.4 H Plt Count Lymph % (Auto) [place] % (Auto) Lymph # (Auto) [place] # (Auto) Seg Neutrophils % Seg Neuts % (Manual) 97.0 H Lymphocytes % (Manual) 3.0 L Seg Neutrophils # Seg Neutrophils # Man 8.4 H Lymphocytes # (Manual) 0.3 L PT INR APTT D-Dimer ABG pH POC ABG pCO2 POC ABG pO2 ABG pO2 90.6 H ABG HCO3 ABG O2 Saturation ABG Base Excess -3.7 L ABG Hemoglobin 13.5 L ABG Oxyhemoglobin ABG Sodium ABG Potassium ABG Chloride ABG Glucose Oxyhemoglobin Carboxyhemoglobin Sodium Potassium 5.5 H Chloride Carbon Dioxide 20 L BUN 39 H Creatinine 2.2 H Glucose 155 H POC Glucose Calcium 8.3 L Magnesium AST 571 H ALT 951 H Ammonia Total Creatine Kinase Troponin T C-Reactive Protein NT-Pro-B Natriuret Pep Albumin 3.2 L Triglycerides HDL Cholesterol Arterial Blood Glucose Urine WBC (Auto) Urine Creatinine Urine Total Protein Salicylates Acetaminophen 05/25/21 05/25/21 05/25/21 04:20 14:37 14:37 WBC RBC Hgb Hct MCV 96 H MCHC 30 L RDW 20.7 H Plt Count Lymph % (Auto) [place] % (Auto) Lymph # (Auto) [place] # (Auto) Seg Neutrophils % Seg Neuts % (Manual) Lymphocytes % (Manual) Seg Neutrophils # Seg Neutrophils # Man Lymphocytes # (Manual) PT INR APTT D-Dimer ABG pH 7.222 L POC ABG pCO2 57.8 H POC ABG pO2 67.3 L ABG pO2 ABG HCO3 ABG O2 Saturation ABG Base Excess ABG Hemoglobin ABG Oxyhemoglobin 89.1 L ABG Sodium ABG Potassium 5.1 H ABG Chloride ABG Glucose 182 H Oxyhemoglobin Carboxyhemoglobin Sodium Potassium 5.3 H Chloride Carbon Dioxide BUN 47 H Creatinine 2.0 H Glucose 154 H POC Glucose Calcium Magnesium AST 93 H ALT 590 H Ammonia Total Creatine Kinase Troponin T C-Reactive Protein NT-Pro-B Natriuret Pep Albumin 3.6 L Triglycerides HDL Cholesterol Arterial Blood Glucose 182 H Urine WBC (Auto) Urine Creatinine Urine Total Protein Salicylates Acetaminophen 05/25/21 05/25/21 05/26/21 21:50 23:30 05:31 WBC RBC Hgb Hct MCV MCHC RDW Plt Count Lymph % (Auto) [place] % (Auto) Lymph # (Auto) [place] # (Auto) Seg Neutrophils % Seg Neuts % (Manual) Lymphocytes % (Manual) Seg Neutrophils # Seg Neutrophils # Man Lymphocytes # (Manual) PT INR APTT D-Dimer ABG pH 7.328 L POC ABG pCO2 POC ABG pO2 ABG pO2 63.3 L ABG HCO3 ABG O2 Saturation 92.1 L ABG Base Excess -2.4 L ABG Hemoglobin 11.3 L ABG Oxyhemoglobin ABG Sodium ABG Potassium ABG Chloride ABG Glucose Oxyhemoglobin 90.3 L Carboxyhemoglobin Sodium Potassium Chloride Carbon Dioxide BUN Creatinine Glucose POC Glucose 131 H 123 H Calcium Magnesium AST ALT Ammonia Total Creatine Kinase Troponin T C-Reactive Protein NT-Pro-B Natriuret Pep Albumin Triglycerides HDL Cholesterol Arterial Blood Glucose Urine WBC (Auto) Urine Creatinine Urine Total Protein Salicylates Acetaminophen 05/26/21 05/26/21 05/26/21 09:02 10:57 12:37 WBC RBC Hgb Hct MCV MCHC RDW Plt Count Lymph % (Auto) [place] % (Auto) Lymph # (Auto) [place] # (Auto) Seg Neutrophils % Seg Neuts % (Manual) Lymphocytes % (Manual) Seg Neutrophils # Seg Neutrophils # Man Lymphocytes # (Manual) PT INR APTT D-Dimer ABG pH 7.346 L POC ABG pCO2 POC ABG pO2 ABG pO2 60.5 L ABG HCO3 ABG O2 Saturation 90.7 L ABG Base Excess ABG Hemoglobin 13.1 L ABG Oxyhemoglobin ABG Sodium ABG Potassium ABG Chloride ABG Glucose Oxyhemoglobin 88.9 L Carboxyhemoglobin Sodium Potassium Chloride Carbon Dioxide BUN Creatinine Glucose POC Glucose 127 H Calcium Magnesium AST ALT Ammonia Total Creatine Kinase Troponin T C-Reactive Protein NT-Pro-B Natriuret Pep Albumin Triglycerides HDL Cholesterol Arterial Blood Glucose Urine WBC (Auto) Urine Creatinine 79.3 H Urine Total Protein 80 H Salicylates Acetaminophen 05/26/21 05/26/21 05/26/21 17:30 21:00 Unknown WBC 4.2 L RBC Hgb 11.7 L Hct MCV MCHC 31 L RDW 20.3 H Plt Count 132 L Lymph % (Auto) [place] % (Auto) Lymph # (Auto) [place] # (Auto) Seg Neutrophils % Seg Neuts % (Manual) Lymphocytes % (Manual) Seg Neutrophils # Seg Neutrophils # Man Lymphocytes # (Manual) PT INR APTT D-Dimer ABG pH POC ABG pCO2 POC ABG pO2 56.7 L ABG pO2 ABG HCO3 ABG O2 Saturation ABG Base Excess ABG Hemoglobin ABG Oxyhemoglobin 88.8 L ABG Sodium ABG Potassium 4.7 H ABG Chloride ABG Glucose 152 H Oxyhemoglobin Carboxyhemoglobin Sodium Potassium Chloride Carbon Dioxide BUN Creatinine Glucose POC Glucose 141 H Calcium Magnesium AST ALT Ammonia Total Creatine Kinase Troponin T C-Reactive Protein NT-Pro-B Natriuret Pep Albumin Triglycerides HDL Cholesterol Arterial Blood Glucose 152 H Urine WBC (Auto) Urine Creatinine Urine Total Protein Salicylates Acetaminophen 05/26/21 05/26/21 05/27/21 Unknown Unknown 08:00 WBC 4.2 L RBC Hgb Hct MCV MCHC RDW 21.2 H Plt Count 126 L Lymph % (Auto) [place] % (Auto) Lymph # (Auto) [place] # (Auto) Seg Neutrophils % Seg Neuts % (Manual) Lymphocytes % (Manual) Seg Neutrophils # Seg Neutrophils # Man Lymphocytes # (Manual) PT INR APTT D-Dimer ABG pH POC ABG pCO2 POC ABG pO2 ABG pO2 ABG HCO3 ABG O2 Saturation ABG Base Excess ABG Hemoglobin ABG Oxyhemoglobin ABG Sodium ABG Potassium ABG Chloride ABG Glucose Oxyhemoglobin Carboxyhemoglobin Sodium Potassium 5.2 H Chloride Carbon Dioxide BUN 47 H Creatinine 2.0 H Glucose 136 H POC Glucose Calcium Magnesium AST 64 H ALT 448 H Ammonia Total Creatine Kinase Troponin T C-Reactive Protein NT-Pro-B Natriuret Pep Albumin 3.4 L Triglycerides HDL Cholesterol Arterial Blood Glucose Urine WBC (Auto) Urine Creatinine 128.6 H Urine Total Protein Salicylates Acetaminophen 05/27/21 05/27/21 05/27/21 08:00 10:15 11:48 WBC RBC Hgb Hct MCV MCHC RDW Plt Count Lymph % (Auto) [place] % (Auto) Lymph # (Auto) [place] # (Auto) Seg Neutrophils % Seg Neuts % (Manual) Lymphocytes % (Manual) Seg Neutrophils # Seg Neutrophils # Man Lymphocytes # (Manual) PT INR APTT D-Dimer ABG pH 7.300 L POC ABG pCO2 POC ABG pO2 ABG pO2 42.1 L ABG HCO3 ABG O2 Saturation 72.8 L ABG Base Excess ABG Hemoglobin 12.7 L ABG Oxyhemoglobin ABG Sodium ABG Potassium ABG Chloride ABG Glucose Oxyhemoglobin 71.4 L Carboxyhemoglobin Sodium Potassium Chloride Carbon Dioxide BUN 52 H Creatinine 1.8 H Glucose 171 H POC Glucose 139 H Calcium 8.3 L Magnesium AST ALT Ammonia Total Creatine Kinase Troponin T C-Reactive Protein NT-Pro-B Natriuret Pep Albumin Triglycerides HDL Cholesterol Arterial Blood Glucose Urine WBC (Auto) Urine Creatinine Urine Total Protein Salicylates Acetaminophen 05/27/21 05/28/21 05/28/21 17:13 05:30 11:37 WBC RBC Hgb Hct MCV MCHC RDW Plt Count Lymph % (Auto) [place] % (Auto) Lymph # (Auto) [place] # (Auto) Seg Neutrophils % Seg Neuts % (Manual) Lymphocytes % (Manual) Seg Neutrophils # Seg Neutrophils # Man Lymphocytes # (Manual) PT INR APTT D-Dimer ABG pH POC ABG pCO2 POC ABG pO2 ABG pO2 ABG HCO3 ABG O2 Saturation ABG Base Excess ABG Hemoglobin ABG Oxyhemoglobin ABG Sodium ABG Potassium ABG Chloride ABG Glucose Oxyhemoglobin Carboxyhemoglobin Sodium Potassium Chloride Carbon Dioxide BUN 53 H Creatinine 1.6 H Glucose 118 H POC Glucose 145 H 115 H Calcium 8.0 L Magnesium 2.40 H AST ALT Ammonia Total Creatine Kinase Troponin T C-Reactive Protein NT-Pro-B Natriuret Pep Albumin Triglycerides HDL Cholesterol Arterial Blood Glucose Urine WBC (Auto) Urine Creatinine Urine Total Protein Salicylates Acetaminophen 05/28/21 05/28/21 05/29/21 13:32 Unknown 09:43 WBC RBC Hgb 11.7 L Hct MCV MCHC 31 L RDW 21.3 H Plt Count 121 L Lymph % (Auto) [place] % (Auto) Lymph # (Auto) [place] # (Auto) Seg Neutrophils % Seg Neuts % (Manual) Lymphocytes % (Manual) Seg Neutrophils # Seg Neutrophils # Man Lymphocytes # (Manual) PT INR APTT D-Dimer ABG pH 7.339 L POC ABG pCO2 POC ABG pO2 ABG pO2 53.7 L 60.9 L ABG HCO3 ABG O2 Saturation 86.5 L 90.7 L ABG Base Excess ABG Hemoglobin 12.3 L 12.0 L ABG Oxyhemoglobin ABG Sodium ABG Potassium ABG Chloride ABG Glucose Oxyhemoglobin 84.6 L 88.9 L Carboxyhemoglobin Sodium Potassium Chloride Carbon Dioxide BUN Creatinine Glucose POC Glucose Calcium Magnesium AST ALT Ammonia Total Creatine Kinase Troponin T C-Reactive Protein NT-Pro-B Natriuret Pep Albumin Triglycerides HDL Cholesterol Arterial Blood Glucose Urine WBC (Auto) Urine Creatinine Urine Total Protein Salicylates Acetaminophen 05/29/21 05/29/21 05/29/21 13:40 13:40 13:40 WBC RBC Hgb Hct MCV MCHC RDW 20.9 H Plt Count 103 L Lymph % (Auto) [place] % (Auto) Lymph # (Auto) [place] # (Auto) Seg Neutrophils % Seg Neuts % (Manual) Lymphocytes % (Manual) Seg Neutrophils # Seg Neutrophils # Man Lymphocytes # (Manual) PT 15.3 H INR APTT D-Dimer ABG pH POC ABG pCO2 POC ABG pO2 ABG pO2 ABG HCO3 ABG O2 Saturation ABG Base Excess ABG Hemoglobin ABG Oxyhemoglobin ABG Sodium ABG Potassium ABG Chloride ABG Glucose Oxyhemoglobin Carboxyhemoglobin Sodium Potassium Chloride Carbon Dioxide BUN Creatinine 1.7 H Glucose POC Glucose Calcium Magnesium AST ALT Ammonia Total Creatine Kinase Troponin T C-Reactive Protein NT-Pro-B Natriuret Pep Albumin Triglycerides HDL Cholesterol Arterial Blood Glucose Urine WBC (Auto) Urine Creatinine Urine Total Protein Salicylates Acetaminophen 05/30/21 05/30/21 05/30/21 04:42 04:42 07:47 WBC RBC Hgb 11.7 L Hct MCV 95 H MCHC RDW 20.8 H Plt Count 106 L Lymph % (Auto) [place] % (Auto) Lymph # (Auto) [place] # (Auto) Seg Neutrophils % Seg Neuts % (Manual) Lymphocytes % (Manual) Seg Neutrophils # Seg Neutrophils # Man Lymphocytes # (Manual) PT INR APTT D-Dimer ABG pH POC ABG pCO2 POC ABG pO2 ABG pO2 ABG HCO3 ABG O2 Saturation ABG Base Excess ABG Hemoglobin ABG Oxyhemoglobin ABG Sodium ABG Potassium ABG Chloride ABG Glucose Oxyhemoglobin Carboxyhemoglobin Sodium 135 L Potassium Chloride Carbon Dioxide BUN 63 H 63 H Creatinine 1.6 H 1.6 H Glucose POC Glucose Calcium 8.2 L Magnesium AST ALT Ammonia Total Creatine Kinase Troponin T C-Reactive Protein NT-Pro-B Natriuret Pep Albumin Triglycerides HDL Cholesterol Arterial Blood Glucose Urine WBC (Auto) Urine Creatinine Urine Total Protein Salicylates Acetaminophen 05/30/21 05/31/21 05/31/21 09:22 05:16 05:16 WBC RBC Hgb 11.1 L Hct MCV MCHC 31 L RDW 20.8 H Plt Count 116 L Lymph % (Auto) [place] % (Auto) Lymph # (Auto) [place] # (Auto) Seg Neutrophils % Seg Neuts % (Manual) Lymphocytes % (Manual) Seg Neutrophils # Seg Neutrophils # Man Lymphocytes # (Manual) PT INR APTT D-Dimer ABG pH 7.323 L POC ABG pCO2 POC ABG pO2 ABG pO2 107.0 H ABG HCO3 ABG O2 Saturation ABG Base Excess ABG Hemoglobin 12.4 L ABG Oxyhemoglobin ABG Sodium ABG Potassium ABG Chloride ABG Glucose Oxyhemoglobin Carboxyhemoglobin Sodium Potassium Chloride Carbon Dioxide BUN 62 H Creatinine 1.9 H Glucose 103 H POC Glucose Calcium Magnesium AST ALT Ammonia Total Creatine Kinase Troponin T C-Reactive Protein NT-Pro-B Natriuret Pep Albumin Triglycerides HDL Cholesterol Arterial Blood Glucose Urine WBC (Auto) Urine Creatinine Urine Total Protein Salicylates Acetaminophen 05/31/21 05/31/21 05/31/21 05:17 16:49 Unknown WBC RBC Hgb Hct MCV MCHC RDW Plt Count Lymph % (Auto) [place] % (Auto) Lymph # (Auto) [place] # (Auto) Seg Neutrophils % Seg Neuts % (Manual) Lymphocytes % (Manual) Seg Neutrophils # Seg Neutrophils # Man Lymphocytes # (Manual) PT INR APTT D-Dimer ABG pH POC ABG pCO2 48.4 H POC ABG pO2 63.0 L ABG pO2 ABG HCO3 ABG O2 Saturation ABG Base Excess ABG Hemoglobin 11.9 L ABG Oxyhemoglobin 91.4 L ABG Sodium ABG Potassium 4.6 H ABG Chloride ABG Glucose 110 H Oxyhemoglobin Carboxyhemoglobin Sodium Potassium Chloride Carbon Dioxide BUN Creatinine Glucose POC Glucose 109 H 107 H Calcium Magnesium AST ALT Ammonia Total Creatine Kinase Troponin T C-Reactive Protein NT-Pro-B Natriuret Pep Albumin Triglycerides HDL Cholesterol Arterial Blood Glucose 110 H Urine WBC (Auto) Urine Creatinine Urine Total Protein Salicylates Acetaminophen 06/01/21 06/01/21 06/01/21 03:06 07:00 07:00 WBC RBC Hgb 11.2 L Hct MCV 96 H MCHC 31 L RDW 20.6 H Plt Count Lymph % (Auto) [place] % (Auto) Lymph # (Auto) [place] # (Auto) Seg Neutrophils % Seg Neuts % (Manual) Lymphocytes % (Manual) Seg Neutrophils # Seg Neutrophils # Man Lymphocytes # (Manual) PT INR APTT D-Dimer ABG pH POC ABG pCO2 POC ABG pO2 55.0 L ABG pO2 ABG HCO3 ABG O2 Saturation ABG Base Excess ABG Hemoglobin 10.9 L ABG Oxyhemoglobin 87.5 L ABG Sodium 127.4 L ABG Potassium 4.6 H ABG Chloride 108.0 H ABG Glucose 108 H Oxyhemoglobin Carboxyhemoglobin Sodium Potassium Chloride Carbon Dioxide BUN 59 H Creatinine 1.6 H Glucose 104 H POC Glucose Calcium Magnesium AST ALT Ammonia Total Creatine Kinase Troponin T C-Reactive Protein NT-Pro-B Natriuret Pep Albumin Triglycerides HDL Cholesterol Arterial Blood Glucose 108 H Urine WBC (Auto) Urine Creatinine Urine Total Protein Salicylates Acetaminophen 06/01/21 06/01/21 06/02/21 17:09 23:42 04:23 WBC RBC 3.48 L Hgb 10.1 L Hct 33.1 L MCV 95 H MCHC 31 L RDW 19.9 H Plt Count Lymph % (Auto) [place] % (Auto) Lymph # (Auto) [place] # (Auto) Seg Neutrophils % Seg Neuts % (Manual) Lymphocytes % (Manual) Seg Neutrophils # Seg Neutrophils # Man Lymphocytes # (Manual) PT INR APTT D-Dimer ABG pH POC ABG pCO2 POC ABG pO2 ABG pO2 ABG HCO3 ABG O2 Saturation ABG Base Excess ABG Hemoglobin ABG Oxyhemoglobin ABG Sodium ABG Potassium ABG Chloride ABG Glucose Oxyhemoglobin Carboxyhemoglobin Sodium Potassium Chloride Carbon Dioxide BUN Creatinine Glucose POC Glucose 106 H 109 H Calcium Magnesium AST ALT Ammonia Total Creatine Kinase Troponin T C-Reactive Protein NT-Pro-B Natriuret Pep Albumin Triglycerides HDL Cholesterol Arterial Blood Glucose Urine WBC (Auto) Urine Creatinine Urine Total Protein Salicylates Acetaminophen 06/02/21 06/02/21 06/02/21 04:23 05:38 05:40 WBC RBC Hgb Hct MCV MCHC RDW Plt Count Lymph % (Auto) [place] % (Auto) Lymph # (Auto) [place] # (Auto) Seg Neutrophils % Seg Neuts % (Manual) Lymphocytes % (Manual) Seg Neutrophils # Seg Neutrophils # Man Lymphocytes # (Manual) PT INR APTT D-Dimer ABG pH POC ABG pCO2 POC ABG pO2 ABG pO2 ABG HCO3 ABG O2 Saturation ABG Base Excess ABG Hemoglobin ABG Oxyhemoglobin ABG Sodium ABG Potassium ABG Chloride ABG Glucose Oxyhemoglobin Carboxyhemoglobin Sodium Potassium Chloride Carbon Dioxide BUN 61 H Creatinine 1.7 H Glucose 119 H POC Glucose 49 L 107 H Calcium Magnesium AST ALT Ammonia Total Creatine Kinase Troponin T C-Reactive Protein NT-Pro-B Natriuret Pep Albumin Triglycerides HDL Cholesterol Arterial Blood Glucose Urine WBC (Auto) Urine Creatinine Urine Total Protein Salicylates Acetaminophen 06/02/21 06/02/21 06/03/21 10:01 11:26 04:10 WBC RBC Hgb Hct MCV MCHC RDW Plt Count Lymph % (Auto) [place] % (Auto) Lymph # (Auto) [place] # (Auto) Seg Neutrophils % Seg Neuts % (Manual) Lymphocytes % (Manual) Seg Neutrophils # Seg Neutrophils # Man Lymphocytes # (Manual) PT INR APTT D-Dimer ABG pH 7.315 L POC ABG pCO2 POC ABG pO2 62.1 L ABG pO2 ABG HCO3 ABG O2 Saturation ABG Base Excess ABG Hemoglobin 10.8 L ABG Oxyhemoglobin 91.0 L ABG Sodium 133.5 L ABG Potassium 5.0 H ABG Chloride 109.0 H ABG Glucose 124 H Oxyhemoglobin Carboxyhemoglobin Sodium Potassium Chloride Carbon Dioxide BUN Creatinine Glucose POC Glucose 117 H Calcium Magnesium AST ALT Ammonia Total Creatine Kinase Troponin T C-Reactive Protein NT-Pro-B Natriuret Pep Albumin Triglycerides 830 H HDL Cholesterol Arterial Blood Glucose 124 H Urine WBC (Auto) Urine Creatinine Urine Total Protein Salicylates Acetaminophen 06/03/21 06/03/21 06/03/21 04:10 04:10 05:36 WBC RBC 3.25 L Hgb 9.9 L Hct 31.8 L MCV 98 H MCHC 31 L RDW 19.9 H Plt Count Lymph % (Auto) 6.2 L [place] % (Auto) 13.1 H Lymph # (Auto) 0.5 L [place] # (Auto) 1.1 H Seg Neutrophils % Seg Neuts % (Manual) Lymphocytes % (Manual) Seg Neutrophils # Seg Neutrophils # Man Lymphocytes # (Manual) PT INR APTT D-Dimer ABG pH POC ABG pCO2 POC ABG pO2 ABG pO2 ABG HCO3 ABG O2 Saturation ABG Base Excess ABG Hemoglobin ABG Oxyhemoglobin ABG Sodium ABG Potassium ABG Chloride ABG Glucose Oxyhemoglobin Carboxyhemoglobin Sodium 136 L Potassium Chloride Carbon Dioxide 20 L BUN 57 H Creatinine 1.7 H Glucose 108 H POC Glucose 114 H Calcium 8.2 L Magnesium AST ALT Ammonia Total Creatine Kinase Troponin T C-Reactive Protein NT-Pro-B Natriuret Pep Albumin Triglycerides HDL Cholesterol Arterial Blood Glucose Urine WBC (Auto) Urine Creatinine Urine Total Protein Salicylates Acetaminophen 06/03/21 06/03/21 06/03/21 06:55 13:06 23:30 WBC RBC Hgb Hct MCV MCHC RDW Plt Count Lymph % (Auto) [place] % (Auto) Lymph # (Auto) [place] # (Auto) Seg Neutrophils % Seg Neuts % (Manual) Lymphocytes % (Manual) Seg Neutrophils # Seg Neutrophils # Man Lymphocytes # (Manual) PT INR APTT D-Dimer ABG pH 7.298 L POC ABG pCO2 POC ABG pO2 67.4 L ABG pO2 ABG HCO3 ABG O2 Saturation ABG Base Excess ABG Hemoglobin 11.7 L ABG Oxyhemoglobin 91.2 L ABG Sodium 134.3 L ABG Potassium 4.7 H ABG Chloride 108.0 H ABG Glucose 110 H Oxyhemoglobin Carboxyhemoglobin Sodium Potassium Chloride Carbon Dioxide BUN Creatinine Glucose POC Glucose 106 H 106 H Calcium Magnesium AST ALT Ammonia Total Creatine Kinase Troponin T C-Reactive Protein NT-Pro-B Natriuret Pep Albumin Triglycerides HDL Cholesterol Arterial Blood Glucose 110 H Urine WBC (Auto) Urine Creatinine Urine Total Protein Salicylates Acetaminophen 06/04/21 06/04/21 06/04/21 05:00 05:15 05:15 WBC RBC 3.27 L Hgb 9.7 L Hct 31.6 L MCV 97 H MCHC 31 L RDW 19.3 H Plt Count Lymph % (Auto) [place] % (Auto) Lymph # (Auto) [place] # (Auto) Seg Neutrophils % Seg Neuts % (Manual) Lymphocytes % (Manual) Seg Neutrophils # Seg Neutrophils # Man Lymphocytes # (Manual) PT INR APTT D-Dimer ABG pH 7.293 L POC ABG pCO2 POC ABG pO2 ABG pO2 69.1 L ABG HCO3 ABG O2 Saturation 92.3 L ABG Base Excess -4.0 L ABG Hemoglobin 8.9 L ABG Oxyhemoglobin ABG Sodium ABG Potassium ABG Chloride ABG Glucose Oxyhemoglobin 90.3 L Carboxyhemoglobin Sodium Potassium Chloride Carbon Dioxide 21 L BUN 60 H Creatinine 1.7 H Glucose 106 H POC Glucose Calcium Magnesium AST ALT Ammonia Total Creatine Kinase Troponin T C-Reactive Protein NT-Pro-B Natriuret Pep Albumin 2.7 L Triglycerides HDL Cholesterol Arterial Blood Glucose Urine WBC (Auto) Urine Creatinine Urine Total Protein Salicylates Acetaminophen 06/04/21 06/04/21 06/04/21 05:37 13:39 13:54 WBC RBC 3.07 L Hgb 8.9 L Hct 29.5 L MCV 96 H MCHC 30 L RDW 19.4 H Plt Count Lymph % (Auto) [place] % (Auto) Lymph # (Auto) [place] # (Auto) Seg Neutrophils % Seg Neuts % (Manual) Lymphocytes % (Manual) Seg Neutrophils # Seg Neutrophils # Man Lymphocytes # (Manual) PT INR APTT D-Dimer ABG pH POC ABG pCO2 POC ABG pO2 ABG pO2 ABG HCO3 ABG O2 Saturation ABG Base Excess ABG Hemoglobin ABG Oxyhemoglobin ABG Sodium ABG Potassium ABG Chloride ABG Glucose Oxyhemoglobin Carboxyhemoglobin Sodium Potassium Chloride Carbon Dioxide BUN Creatinine Glucose POC Glucose 115 H Calcium Magnesium AST ALT Ammonia Total Creatine Kinase Troponin T C-Reactive Protein NT-Pro-B Natriuret Pep Albumin Triglycerides HDL Cholesterol Arterial Blood Glucose Urine WBC (Auto) 17.0 H Urine Creatinine Urine Total Protein Salicylates Acetaminophen 06/04/21 06/04/21 06/05/21 13:56 23:17 04:30 WBC RBC 3.07 L Hgb 9.0 L Hct 29.6 L MCV 97 H MCHC 30 L RDW 19.1 H Plt Count Lymph % (Auto) [place] % (Auto) Lymph # (Auto) [place] # (Auto) Seg Neutrophils % Seg Neuts % (Manual) Lymphocytes % (Manual) Seg Neutrophils # Seg Neutrophils # Man Lymphocytes # (Manual) PT INR APTT D-Dimer ABG pH POC ABG pCO2 POC ABG pO2 ABG pO2 ABG HCO3 ABG O2 Saturation ABG Base Excess ABG Hemoglobin ABG Oxyhemoglobin ABG Sodium ABG Potassium ABG Chloride ABG Glucose Oxyhemoglobin Carboxyhemoglobin Sodium Potassium Chloride 108.8 H Carbon Dioxide 21 L BUN 58 H Creatinine 1.8 H Glucose 105 H POC Glucose 108 H Calcium Magnesium AST ALT Ammonia Total Creatine Kinase Troponin T C-Reactive Protein NT-Pro-B Natriuret Pep Albumin Triglycerides HDL Cholesterol Arterial Blood Glucose Urine WBC (Auto) Urine Creatinine Urine Total Protein Salicylates Acetaminophen 06/05/21 06/05/21 06/05/21 04:30 05:41 09:07 WBC RBC Hgb Hct MCV MCHC RDW Plt Count Lymph % (Auto) [place] % (Auto) Lymph # (Auto) [place] # (Auto) Seg Neutrophils % Seg Neuts % (Manual) Lymphocytes % (Manual) Seg Neutrophils # Seg Neutrophils # Man Lymphocytes # (Manual) PT INR APTT D-Dimer ABG pH 7.287 L POC ABG pCO2 POC ABG pO2 ABG pO2 79.5 L ABG HCO3 ABG O2 Saturation ABG Base Excess -4.2 L ABG Hemoglobin 8.6 L ABG Oxyhemoglobin ABG Sodium ABG Potassium ABG Chloride ABG Glucose Oxyhemoglobin 94.9 L Carboxyhemoglobin Sodium Potassium Chloride 108.5 H Carbon Dioxide 21 L BUN 60 H Creatinine 1.7 H Glucose 110 H POC Glucose 111 H Calcium Magnesium AST ALT Ammonia Total Creatine Kinase Troponin T C-Reactive Protein NT-Pro-B Natriuret Pep Albumin Triglycerides HDL Cholesterol Arterial Blood Glucose Urine WBC (Auto) Urine Creatinine Urine Total Protein Salicylates Acetaminophen 06/05/21 06/05/21 06/05/21 11:39 15:57 23:26 WBC RBC Hgb Hct MCV MCHC RDW Plt Count Lymph % (Auto) [place] % (Auto) Lymph # (Auto) [place] # (Auto) Seg Neutrophils % Seg Neuts % (Manual) Lymphocytes % (Manual) Seg Neutrophils # Seg Neutrophils # Man Lymphocytes # (Manual) PT INR APTT D-Dimer ABG pH POC ABG pCO2 POC ABG pO2 ABG pO2 ABG HCO3 ABG O2 Saturation ABG Base Excess ABG Hemoglobin ABG Oxyhemoglobin ABG Sodium ABG Potassium ABG Chloride ABG Glucose Oxyhemoglobin Carboxyhemoglobin Sodium Potassium Chloride Carbon Dioxide BUN Creatinine Glucose POC Glucose 111 H 109 H 127 H Calcium Magnesium AST ALT Ammonia Total Creatine Kinase Troponin T C-Reactive Protein NT-Pro-B Natriuret Pep Albumin Triglycerides HDL Cholesterol Arterial Blood Glucose Urine WBC (Auto) Urine Creatinine Urine Total Protein Salicylates Acetaminophen 06/06/21 06/06/21 06/06/21 03:19 04:18 11:35 WBC RBC Hgb Hct MCV MCHC RDW Plt Count Lymph % (Auto) [place] % (Auto) Lymph # (Auto) [place] # (Auto) Seg Neutrophils % Seg Neuts % (Manual) Lymphocytes % (Manual) Seg Neutrophils # Seg Neutrophils # Man Lymphocytes # (Manual) PT INR APTT D-Dimer ABG pH 7.262 L POC ABG pCO2 POC ABG pO2 76.6 L ABG pO2 ABG HCO3 ABG O2 Saturation ABG Base Excess ABG Hemoglobin 10.1 L ABG Oxyhemoglobin 93.9 L ABG Sodium ABG Potassium 5.1 H ABG Chloride 111.0 H ABG Glucose 122 H Oxyhemoglobin Carboxyhemoglobin 0.4 L Sodium Potassium Chloride Carbon Dioxide BUN Creatinine Glucose POC Glucose 108 H 139 H Calcium Magnesium AST ALT Ammonia Total Creatine Kinase Troponin T C-Reactive Protein NT-Pro-B Natriuret Pep Albumin Triglycerides HDL Cholesterol Arterial Blood Glucose 122 H Urine WBC (Auto) Urine Creatinine Urine Total Protein Salicylates Acetaminophen 06/06/21 06/06/21 06/06/21 13:30 17:27 Unknown WBC RBC 3.18 L Hgb 9.5 L Hct 30.8 L MCV 97 H MCHC 31 L RDW 18.9 H Plt Count Lymph % (Auto) [place] % (Auto) Lymph # (Auto) [place] # (Auto) Seg Neutrophils % Seg Neuts % (Manual) Lymphocytes % (Manual) Seg Neutrophils # Seg Neutrophils # Man Lymphocytes # (Manual) PT INR APTT D-Dimer ABG pH POC ABG pCO2 POC ABG pO2 ABG pO2 ABG HCO3 ABG O2 Saturation ABG Base Excess ABG Hemoglobin ABG Oxyhemoglobin ABG Sodium ABG Potassium ABG Chloride ABG Glucose Oxyhemoglobin Carboxyhemoglobin Sodium Potassium Chloride Carbon Dioxide BUN Creatinine Glucose POC Glucose 127 H Calcium Magnesium AST ALT Ammonia Total Creatine Kinase Troponin T C-Reactive Protein NT-Pro-B Natriuret Pep Albumin Triglycerides HDL Cholesterol Arterial Blood Glucose Urine WBC (Auto) Urine Creatinine 222.7 H Urine Total Protein Salicylates Acetaminophen 06/06/21 06/07/21 06/07/21 Unknown 04:33 07:02 WBC 12.4 H RBC 3.23 L Hgb 9.3 L Hct 31.1 L MCV 97 H MCHC 30 L RDW 18.6 H Plt Count Lymph % (Auto) [place] % (Auto) Lymph # (Auto) [place] # (Auto) Seg Neutrophils % Seg Neuts % (Manual) Lymphocytes % (Manual) Seg Neutrophils # Seg Neutrophils # Man Lymphocytes # (Manual) PT INR APTT D-Dimer ABG pH 7.154 L* POC ABG pCO2 POC ABG pO2 ABG pO2 97.5 H ABG HCO3 18.0 L ABG O2 Saturation ABG Base Excess -10.8 L ABG Hemoglobin 13.0 L ABG Oxyhemoglobin ABG Sodium ABG Potassium ABG Chloride ABG Glucose Oxyhemoglobin 94.3 L Carboxyhemoglobin Sodium Potassium 5.3 H Chloride Carbon Dioxide 17 L BUN 72 H Creatinine 2.5 H Glucose 140 H POC Glucose Calcium Magnesium AST ALT Ammonia Total Creatine Kinase Troponin T C-Reactive Protein NT-Pro-B Natriuret Pep Albumin Triglycerides HDL Cholesterol Arterial Blood Glucose Urine WBC (Auto) Urine Creatinine Urine Total Protein Salicylates Acetaminophen 06/07/21 06/07/21 06/07/21 07:02 09:48 12:20 WBC RBC Hgb Hct MCV MCHC RDW Plt Count Lymph % (Auto) [place] % (Auto) Lymph # (Auto) [place] # (Auto) Seg Neutrophils % Seg Neuts % (Manual) Lymphocytes % (Manual) Seg Neutrophils # Seg Neutrophils # Man Lymphocytes # (Manual) PT INR APTT D-Dimer ABG pH 7.128 L POC ABG pCO2 POC ABG pO2 73.8 L ABG pO2 ABG HCO3 ABG O2 Saturation ABG Base Excess ABG Hemoglobin 11.1 L ABG Oxyhemoglobin 91.1 L ABG Sodium ABG Potassium 5.8 H ABG Chloride 110.0 H ABG Glucose 109 H Oxyhemoglobin Carboxyhemoglobin 0.3 L Sodium Potassium 6.6 H* D 6.1 H* Chloride Carbon Dioxide 18 L 15 L BUN 84 H 85 H Creatinine 3.0 H 3.2 H Glucose 104 H 165 H POC Glucose Calcium Magnesium AST ALT Ammonia Total Creatine Kinase Troponin T C-Reactive Protein NT-Pro-B Natriuret Pep Albumin Triglycerides HDL Cholesterol Arterial Blood Glucose 109 H Urine WBC (Auto) Urine Creatinine Urine Total Protein Salicylates Acetaminophen Chest x-ray: pending Allied health notes reviewed: nursing
[2021-06-07] MEDS: LINEZOLID 600 MG/300 ML BAG IV SCH (15:05)
--- NOTE | 2021-06-07 18:16 | Progress Note ---
Assessment and Plan Assessment and plan: This is a 41-year-old male with past medical history of HTN, REVA and morbid obesity who presented to the ER with severe respiratory distress and eventually was intubated for acute respiratory failure secondatory to possible pneumonia vs pulmonary edema. Patient was also found to have an FERMIN. Patient remains intubated and in the ICU for further management. Hospital Course to Date: 05/24/2021: Patient intubated and sedated. VQ scan ordered secondary to elevated D-dimer. Cardiology consulted secondary to elevated troponin and elevated BNP. Echocardiogram ordered and pending. 05/25/2021: Patient still intubated. Responsive to commands. Hypotensive, norepinephrine increased to 15mcg. Unable to get V/Q scan due to body habitus. 05/26: Overnight patient experienced desaturation to the 80s and FiO2 was increased. This morning on ABG patient exhibited hypoxemia and FiO2 was unchanged. [facility] later increased PEEP and decrease FiO2. Nephrology was consulted due to no recovery in renal function noted. Urine lites were ordered. Hyperkalemia treated medically. 05/27: Patient remains sedated on fentanyl and propofol, [facility] will taper Solu- Medrol and repeat ABG in 1899. Patient received 40 mg of Lasix x1. Slight improvement to renal function noted 05/28: [facility] has started revatio for pulmonary hypertension, we will repeat Lasix today as patient had improvement in renal function. No acute events reported overnight. 05/29: 1900 ABG with improved hypoxia, good UOP noted from lasix. Repeat labs for am. no acute events reported overnight 05/30: FWF decreased. Garcia catheter replaced due to sediment. Family updated today at bedside. 05/31: noted to have persistent tachycardia, given fent bolus without improvement. EKG showed ST, passive leg raise by RN showed decrease in tachycardia therefore given LR. Noted increase in Cr today. MIVF for 2 liters started by [facility]. 06/01/21- Remains intubated, sedation was increased this am due to agitation, Levo was initiated due to hypotension. Patient remains on IVF, D/C once current bag is completed. D/w CCM plan to gently wean vent setting for SPO2 goal above 92%. 06/02/21- Patient remains on the vent, on max support this am. Per RN patient desated this am after he was turned, SPO2 was sustaining in the low 80s. Patient is also spiking temp, TMAX 101 this am, WBC wnl. Orders placed for stat CXR, blood cultureX2, and procal. Will hold off on AbX for now. Will continue to trend CBC, am labs ordered 06/03/21- Patient remains on the vent and sedated. High triglyceride level this am, propofol stopped and seroquel added BID. No fever overnight, wbcs remains stable, pending B.cult result. Continue to trend CBC 06/04/21- Patient remains on the vent, no longer on sedation. Easily arousable, follow commands at time. Persistent fever, wbcs remains stable, B.cultX2 pending, procal normal, ID consulted. 06/05/21- Patient remains on the vent on fentanyl gtt RASS -1. Back up to 100% Fio2 due to low SPO2 overnight, this am ABG noted, plan to wean FIO2 for a SPO2 goal abover 90%. Febrile overnight, continue current IV Abx per ID. 06/06/21- Patient remains on the vent on fentanyl gtt RASS 0 to -1. Back on pressors overnight due to hypotension, febrile TMAX 101.1, patient is on IV ABx and ID is on the case. Worsening in kidney function with hyperkalemia is also noted, X1 dose of kayaxalate given. Will continue to monitor renal function and electrolytes. Mom and sister at the bedside, were update on patient's conditions, all questions and concerns were voiced at this time. 06/07/21- Patient remains on the vent. In critical condition this am, on three pressors with severe metabolic acidosis, MAP remains in the 50s. Will placed Artline for hemodynamic monitoring. Worsen kidney function with hyperkalemia. Hyperkalemia was treated per protocol, d/w nephro plan for possible HD today. Will repeat BMP in 4hours. Sputum culture is positive for MRSA, due to kidney function VAnco was switched to Zyvox. will continue to monitor renal function and electrolytes. Assessment and Plan #Neuro: Acute metabolic encephalopathy -CT head and C-spine negative for acute process -TSH WNL -Patient is intubated and sedated on fentynal gtt RASS 0 to -1 -Elevated triglyceride 830, propofol D/C -On Seroquel -Avoid delirium -Reorientation as needed -Maintain sleep-wake cycle #CV:Hypotension #Possible CHF #h/o HTN -Cardiology consulted, appreciate recommendations -05/24 echocardiogram showed mild to moderate dilated right heart chambers, LVEF 55% -ProBNP 93648 -Diuretic on hold due to worsen kidney function -On high pressors this am, vaso, Jaciel, and Levo gtt -Cardiology recommends conservative cardiac management -Maintain adequate perfusion -Titrate pressors to maintain MAP above 65 -Continue AC- Eliquis #Acute hypoxemic and hypercapnic respiratory failure/ARDS #H/o sleep apnea -Patient intubated on 05/23 -vent settings:PRVC- 90%,15,30,450 -AM ABG noted -CCM consulted, appreciate recommendations -Continue Nebs per CCM -VAP bundle addressed -Aspiration precaution HOB above 30 -Daily SBT and SAT trials as tolerated -Daily ABG and CXR -Continue SPO2 monitoring for SPO2 goal above 92% #GI: Transaminitis- improved #morbid obesity -NTR consult for tube feedings -Continue enteral nutrition -Continue BR- senokot -Continue PPI- Pepcid -Trend LFTs #: Acute renal failure secondary to vasomotor nephropathy #Hyperkalemia -Initial ProBNP was 20112, was diuresed, now on hold -FENa 0.41% indicating prerenal -K is 6.9 this am, treated per protocol -Repeat BMP in 4hrs -Nephrology consulted, appreciate recommendations -Garcia catheter for strict intake and output -Avoid nephrotoxic medications -Renally dose medications -Continue to monitor renal function and electrolytes, replete as needed #Heme: Elevated D-dimer, h/o PE/DVT -VQ scan unable to be performed due to patient being intubated -CTA head unable to be performed due to renal function and size -restarted on home eliquis -SCDs to bilateral lower extremity while in bed -Echocardiogram shows no right heart strain -Trend CBC -Transfuse for hemoglobin less than 7 -Bilateral lower extremity Doppler ultrasound negative for DVT #ID: CAP #leukopenia- improved #coag negative Staphylococcus in blood culture 07/26 -CT showed right upper lobe pneumonia -05/23 UC, tracheal aspirate no growth to date -05/23 blood culture with coag negative staph in 1 of 2 bottles -Persistent fever, WBCs wnl -ID consulted -Completed IV abx course- cefepime and azithromycin -Continue IV Abx per ID -Vanco switched to zyvox due to worsening renal function -Daily CBC monitor #Endo: Glycemic control -Accu-Cheks every 6 while on tube feedings -SSI if hyperglycemic -Avoid hypoglycemia -Target blood glucose while critically ill less than 180 The high probability of a clinically significant, sudden or life threatening deterioration of the [Neuro,CV,pulm] system(s) required my full and direct attention, intervention and personal management. The aggregate critical care time was [60] minutes. This time is in addition to time spent performing reported procedures but includes the following: [x] Data Review and interpretation [x] Patient assessment and monitoring of vital signs [x] Documentation [x] Medication orders and management Disposition Plan: ICU Total Time Spent with Patient (Minutes): 60 History Interval history: Patient seen and examined at the bedside. Patient remains on the vent and on fentanyl gtt, RASS -2. Febrile and on high pressors overnight for hypotension. Remains on high vent settings Hospitalist Physical - Constitutional Vitals: Temp Pulse Resp BP Pulse Ox 99.8 F H 104 H 12 157/32 100 06/07/21 12:00 06/07/21 15:15 06/07/21 15:15 06/07/21 15:15 06/07/21 15:15 General appearance: Present: no acute distress, obese, other (Intubated and sedated) - EENT Eyes: Present: PERRL - Respiratory Respiratory effort: labored Respiratory: bilateral: rhonchi, wheezing - Cardiovascular Rhythm: regular Heart Sounds: Present: S1 & S2 - Extremities Extremities: no ischemia, pulses intact, pulses symmetrical Extremity abnormal: edema - Peripheral Assessment Generalized Edema Type: Pitting Edema Degree: 2+ Capillary Refill: < 3 seconds Skin Temperature: Warm Peripheral Pulses: within normal limits - Abdominal General gastrointestinal: soft, non-tender, normal bowel sounds - Integumentary Integumentary: Present: warm, dry - Psychiatric Psychiatric: other (Intubated and sedated) - Neurologic Neurologic: other (Intubated and sedated) - Allied Health Allied health notes reviewed: nursing HEART Score - HEART Score Troponin: Troponin T 0.038 ng/mL (0.00-0.029) H 05/23/21 15:09 Results - Labs CBC & Chem 7: 06/07/21 07:02 06/07/21 12:20 Labs: Laboratory Last Values WBC 12.4 K/mm3 (4.5-11.0) H 06/07/21 07:02 RBC 3.23 M/mm3 (3.65-5.03) L 06/07/21 07:02 Hgb 9.3 gm/dl (11.8-15.2) L 06/07/21 07:02 Hct 31.1 % (35.5-45.6) L 06/07/21 07:02 MCV 97 fl (84-94) H 06/07/21 07:02 MCH 29 pg (28-32) 06/07/21 07:02 MCHC 30 % (32-34) L 06/07/21 07:02 RDW 18.6 % (13.2-15.2) H 06/07/21 07:02 Plt Count 207 K/mm3 (140-440) 06/07/21 07:02 Lymph % (Auto) 6.2 % (13.4-35.0) L 06/03/21 04:10 [place] % (Auto) 13.1 % (0.0-7.3) H 06/03/21 04:10 Eos % (Auto) 3.2 % (0.0-4.3) 06/03/21 04:10 Baso % (Auto) 0.4 % (0.0-1.8) 06/03/21 04:10 Lymph # (Auto) 0.5 K/mm3 (1.2-5.4) L 06/03/21 04:10 [place] # (Auto) 1.1 K/mm3 (0.0-0.8) H 06/03/21 04:10 Eos # (Auto) 0.3 K/mm3 (0.0-0.4) 06/03/21 04:10 Baso # (Auto) 0.0 K/mm3 (0.0-0.1) 06/03/21 04:10 Add Manual Diff Complete 05/24/21 04:55 Total Counted 100 05/24/21 04:55 Seg Neutrophils % Methods And Procedures Analyst 06/03/21 04:10 Seg Neuts % (Manual) 97.0 % (40.0-70.0) H 05/24/21 04:55 Lymphocytes % (Manual) 3.0 % (13.4-35.0) L 05/24/21 04:55 Nucleated RBC % Not Reportable 05/24/21 04:55 Seg Neutrophils # 6.2 K/mm3 (1.8-7.7) 06/03/21 04:10 Seg Neutrophils # Man 8.4 K/mm3 (1.8-7.7) H 05/24/21 04:55 Band Neutrophils # 0.0 K/mm3 05/24/21 04:55 Lymphocytes # (Manual) 0.3 K/mm3 (1.2-5.4) L 05/24/21 04:55 Abs React Lymphs (Man) 0.0 K/mm3 05/24/21 04:55 Monocytes # (Manual) 0.0 K/mm3 (0.0-0.8) 05/24/21 04:55 Eosinophils # (Manual) 0.0 K/mm3 (0.0-0.4) 05/24/21 04:55 Basophils # (Manual) 0.0 K/mm3 (0.0-0.1) 05/24/21 04:55 Metamyelocytes # 0.0 K/mm3 05/24/21 04:55 Myelocytes # 0.0 K/mm3 05/24/21 04:55 Promyelocytes # 0.0 K/mm3 05/24/21 04:55 Blast Cells # 0.0 K/mm3 05/24/21 04:55 WBC Morphology Not Reportable 05/24/21 04:55 Hypersegmented Neuts Not Reportable 05/24/21 04:55 Hyposegmented Neuts Not Reportable 05/24/21 04:55 Hypogranular Neuts Not Reportable 05/24/21 04:55 Smudge Cells Not Reportable 05/24/21 04:55 Toxic Granulation Not Reportable 05/24/21 04:55 Toxic Vacuolation Not Reportable 05/24/21 04:55 Dohle Bodies Not Reportable 05/24/21 04:55 Pelger-Huet Anomaly Not Reportable 05/24/21 04:55 Cynthia Rods Not Reportable 05/24/21 04:55 Platelet Estimate Consistent w auto 05/24/21 04:55 Clumped Platelets Not Reportable 05/24/21 04:55 Plt Clumps, EDTA Not Reportable 05/24/21 04:55 Large Platelets Not Reportable 05/24/21 04:55 Giant Platelets Not Reportable 05/24/21 04:55 Platelet Satelliting Not Reportable 05/24/21 04:55 Plt Morphology Comment Not Reportable 05/24/21 04:55 RBC Morphology Not Reportable 05/24/21 04:55 Dimorphic RBCs Not Reportable 05/24/21 04:55 Polychromasia Not Reportable 05/24/21 04:55 Hypochromasia Not Reportable 05/24/21 04:55 Poikilocytosis Not Reportable 05/24/21 04:55 Anisocytosis 1+ 05/24/21 04:55 Microcytosis Not Reportable 05/24/21 04:55 Macrocytosis Not Reportable 05/24/21 04:55 Spherocytes Not Reportable 05/24/21 04:55 Pappenheimer Bodies Not Reportable 05/24/21 04:55 Sickle Cells Not Reportable 05/24/21 04:55 Target Cells Not Reportable 05/24/21 04:55 Tear Drop Cells Not Reportable 05/24/21 04:55 Ovalocytes Not Reportable 05/24/21 04:55 Helmet Cells Not Reportable 05/24/21 04:55 James-Crary Bodies Not Reportable 05/24/21 04:55 [place] Rings Not Reportable 05/24/21 04:55 [place] Cells Not Reportable 05/24/21 04:55 Bite Cells Not Reportable 05/24/21 04:55 Crenated Cell Not Reportable 05/24/21 04:55 Elliptocytes Not Reportable 05/24/21 04:55 Acanthocytes (Spur) Not Reportable 05/24/21 04:55 Rouleaux Not Reportable 05/24/21 04:55 Hemoglobin C Crystals Not Reportable 05/24/21 04:55 Schistocytes Not Reportable 05/24/21 04:55 Malaria parasites Not Reportable 05/24/21 04:55 Uli Bodies Not Reportable 05/24/21 04:55 Hem Pathologist Commnt No 05/24/21 04:55 PT 15.3 Sec. (12.2-14.9) H 05/29/21 13:40 INR 1.09 (0.87-1.13) 05/29/21 13:40 APTT 25.7 Sec. (24.2-36.6) 05/29/21 13:40 D-Dimer 4444.85 ng/mlDDU (0-234) H 05/23/21 15:09 ABG pH 7.128 (7.320-7.450) L 06/07/21 09:48 POC ABG pCO2 46.8 mmHg (32.0-48.0) 06/07/21 09:48 ABG pCO2 52.5 mm Hg 06/07/21 04:33 POC ABG pO2 73.8 mmHg (83-108) L 06/07/21 09:48 ABG pO2 97.5 mm Hg (80.0-90.0) H 06/07/21 04:33 POC ABG HCO3 15.1 06/07/21 09:48 ABG HCO3 18.0 mmol/L (20.0-26.0) L 06/07/21 04:33 ABG O2 Saturation 91.6 (0-100) 06/07/21 09:48 ABG O2 Content 17.3 (0.0-44) 06/07/21 04:33 POC ABG Base Excess -13.6 06/07/21 09:48 ABG Base Excess -10.8 mmol/L (-2.0-3.0) L 06/07/21 04:33 ABG Hemoglobin 11.1 (12.0-17.5) L 06/07/21 09:48 ABG Oxyhemoglobin 91.1 (94-98) L 06/07/21 09:48 ABG Carboxyhemoglobin 1.4 % (0.0-5.0) 06/07/21 04:33 ABG Methemoglobin 0.3 (0.0-1.5) 06/07/21 09:48 ABG Sodium 139.3 mmol/L (136.0-145.0) 06/07/21 09:48 ABG Potassium 5.8 mmol/L (3.40-4.50) H 06/07/21 09:48 ABG Chloride 110.0 mmol/L (98-107) H 06/07/21 09:48 ABG Glucose 109 mg/dL (65-95) H 06/07/21 09:48 Oxyhemoglobin 94.3 % (95.0-99.0) L 06/07/21 04:33 Carboxyhemoglobin 0.3 (0.5-1.5) L 06/07/21 09:48 FiO2 90 % 06/07/21 04:33 FiO2 % 90.0 06/07/21 09:48 Sodium 141 mmol/L (137-145) 06/07/21 12:20 Potassium 6.1 mmol/L (3.6-5.0) H* 06/07/21 12:20 Chloride 106.6 mmol/L (98-107) 06/07/21 12:20 Carbon Dioxide 15 mmol/L (22-30) L 06/07/21 12:20 Anion Gap 26 mmol/L 06/07/21 12:20 BUN 85 mg/dL (9-20) H 06/07/21 12:20 Creatinine 3.2 mg/dL (0.8-1.3) H 06/07/21 12:20 Estimated GFR 26 ml/min 06/07/21 12:20 BUN/Creatinine Ratio 27 % 06/07/21 12:20 Glucose 165 mg/dL (75-100) H 06/07/21 12:20 POC Glucose 103 mg/dL (70-105) 06/07/21 14:50 Lactic Acid 1.50 mmol/L (0.7-2.0) 05/23/21 15:09 Calcium 9.2 mg/dL (8.4-10.2) 06/07/21 12:20 Phosphorus 2.90 mg/dL (2.5-4.5) 05/28/21 05:30 Magnesium 2.40 mg/dL (1.7-2.3) H 05/28/21 05:30 Total Bilirubin 0.80 mg/dL (0.1-1.2) 06/04/21 05:15 AST 17 units/L (5-40) 06/04/21 05:15 ALT 44 units/L (7-56) 06/04/21 05:15 Alkaline Phosphatase 74 units/L (35-129) 06/04/21 05:15 Ammonia 30.0 umol/L (25-60) 05/24/21 04:55 Total Creatine Kinase 48 units/L (55-170) L 05/23/21 15:09 Troponin T 0.038 ng/mL (0.00-0.029) H 05/23/21 15:09 C-Reactive Protein 10.00 mg/dL (0.00-1.30) H 05/23/21 19:10 NT-Pro-B Natriuret Pep 92175 pg/mL (0-450) H 05/23/21 15:09 Total Protein 6.8 g/dL (6.3-8.2) 06/04/21 05:15 Albumin 2.7 g/dL (3.9-5) L 06/04/21 05:15 Albumin/Globulin Ratio 0.7 % 06/04/21 05:15 Triglycerides 830 mg/dL (2-149) H 06/03/21 04:10 Cholesterol 106 mg/dL (50-199) 05/23/21 15:09 LDL Cholesterol Direct 58 mg/dL (50-130) 05/23/21 15:09 HDL Cholesterol 29 mg/dL (40-59) L 05/23/21 15:09 Cholesterol/HDL Ratio 3.65 % 05/23/21 15:09 Procalcitonin 0.82 ng/mL (<0.15) 06/02/21 13:53 TSH 2.380 mlU/mL (0.270-4.200) 05/23/21 15:09 Arterial Blood Glucose 109 mg/dL (65-95) H 06/07/21 09:48 Arterial Blood Ionized Calcium 5.3 mg/dL (4.6-5.3) 06/07/21 09:48 Urine Color Yellow (Yellow) 06/04/21 13:39 Urine Turbidity Turbid (Clear) 06/04/21 13:39 Urine pH 5.0 (5.0-7.0) 06/04/21 13:39 Ur Specific [place] 1.015 (1.003-1.030) 06/04/21 13:39 Urine Protein 100 mg/dl mg/dL (Negative) 06/04/21 13:39 Urine Glucose (UA) Neg mg/dL (Negative) 06/04/21 13:39 Urine Ketones Neg mg/dL (Negative) 06/04/21 13:39 Urine Blood Mod (Negative) 06/04/21 13:39 Urine Nitrite Neg (Negative) 06/04/21 13:39 Urine Bilirubin Neg (Negative) 06/04/21 13:39 Urine Urobilinogen 2.0 mg/dL (<2.0) 06/04/21 13:39 Ur Leukocyte Esterase Neg (Negative) 06/04/21 13:39 Urine WBC (Auto) 17.0 /HPF (0.0-6.0) H 06/04/21 13:39 Urine RBC (Auto) > 182.0 /HPF (0.0-6.0) 06/04/21 13:39 U Epithel Cells (Auto) 7.0 /HPF (0-13.0) 06/04/21 13:39 Urine Bacteria (Auto) 1+ /HPF (Negative) 05/23/21 Unknown Amorphous Crystals 3+ 06/04/21 13:39 Urine Mucus Few /HPF 06/04/21 13:39 Ur Yeast w Hyphae Few /HPF 06/04/21 13:39 Urine Yeast (Budding) 3+ /HPF 06/04/21 13:39 Urine Eosinophils 2+ (None Seen) 05/26/21 12:37 Urine Osmolality 612 Mosm/kg 05/26/21 Unknown Urine Creatinine 222.7 mg/dL (0.1-20.0) H 06/06/21 13:30 Protein/Creatinin Ratio 1.01 05/26/21 12:37 Urine Sodium 18 mmol/L 06/06/21 13:30 Urine Potassium 45.15 mmol/L 05/26/21 Unknown Urine Urea Nitrogen 989 05/26/21 Unknown Urine Total Protein 80 mg/dL (5-11.8) H 05/26/21 12:37 Nasal Screen MRSA (PCR) Positive (Negative) 05/30/21 12:00 Salicylates < 0.3 mg/dL (2.8-20.0) L 05/23/21 15:09 Urine Opiates Screen Negative 05/23/21 Unknown Urine Methadone Screen Negative 05/23/21 Unknown Acetaminophen 5.0 ug/mL (10.0-30.0) L 05/23/21 15:09 Ur Barbiturates Screen Negative 05/23/21 Unknown Ur Phencyclidine Scrn Negative 05/23/21 Unknown Ur Amphetamines Screen Negative 05/23/21 Unknown U Benzodiazepines Scrn Negative 05/23/21 Unknown Urine Cocaine Screen Negative 05/23/21 Unknown U Marijuana (THC) Screen Negative 05/23/21 Unknown Drugs of Abuse Note Disclamer 05/23/21 Unknown Plasma/Serum Alcohol < 0.01 % (0-0.07) 05/23/21 15:09 Coronavirus (PCR) Negative (Negative) 05/23/21 Unknown Blood Type O POSITIVE 05/23/21 15:01 Antibody Screen Negative 05/23/21 15:01 Microbiology: Microbiology 06/04/21 15:59 Tracheal Aspirate Sputum Culture - Final Methicillin Resist S. Aureus A.baumannii/Haemolyticus 06/02/21 13:53 Peripheral/Venous Blood Culture - Preliminary NO GROWTH AFTER 4 DAYS 06/02/21 13:54 Peripheral/Venous Blood Culture - Preliminary NO GROWTH AFTER 4 DAYS Garcia/IV: Voiding Method Indwelling Catheter Active Medications - Current Medications Current Medications: Generic Name Dose Route Start Last Admin Trade Name Freq PRN Reason Stop Dose Admin Acetaminophen 650 mg 05/23/21 20:42 06/06/21 22:42 Acetaminophen 325 Mg Tab PO 650 mg Q4H PRN Administration Pain MILD(1-3)/Fever >100.5/CASTORENA Albuterol 2.5 mg 05/23/21 21:11 Albuterol 2.5 Mg/3 Ml Nebu IH Q4HRT PRN Shortness Of Breath Albuterol/Ipratropium 1 ampul 05/29/21 08:00 06/07/21 13:34 Ipratropium/Albuterol Sulfate 3 Ml Ampul.Neb IH 1 ampul TIDRT [facility] Administration Lipase/Protease/Amylase 1 each 05/24/21 10:14 Lipase 10,500/Protease 25,000/Amylase 43,750 (Units) Dr Cap FEEDTUBE PRN PRN For Clogged Feeding Tube Apixaban 2.5 mg 05/29/21 13:00 06/07/21 09:01 Apixaban 2.5 Mg Tab PO Not Given Q12HR ROSEMARIE Protocol Famotidine 10 mg 06/06/21 22:00 06/07/21 09:01 Famotidine 20 Mg Tab FEEDTUBE Not Given BID ROSEMARIE Hydrophilic Ointment 1 applic 05/23/21 12:34 Lip Therapy Vaseline TP Q2HR PRN Dry Lips Fentanyl Citrate 2,000 mcg in 100 mls @ 8.528 mls/hr 05/23/21 13:00 06/07/21 15:21 Fentanyl Drip Premix IV 1 mcg/kg/hr TITR ROSEMARIE 8.528 mls/hr Administration Protocol 1 MCG/KG/HR Cefepime HCl 2 gm in 100 mls @ 200 mls/hr 06/07/21 04:00 06/07/21 05:25 Cefepime/Ns 2 Gm/100 Ml IV 200 mls/hr Q24H ROSEMARIE Administration Protocol Sodium Chloride 500 mls @ 1 mls/hr 06/06/21 13:40 06/06/21 14:18 Nacl 0.9% 500 Ml IV 1 mls/hr DIRECT PRN Administration ARTERIAL LINE FLUSH Vasopressin 20 unit/ Sodium 101 mls @ 9.09 mls/hr 06/06/21 15:00 06/07/21 12:45 Chloride IV 0.03 units/min TITR ROSEMARIE 9.09 mls/hr Administration Protocol 0.03 UNITS/MIN Phenylephrine HCl 100 mg/ 100 mls @ 3 mls/hr 06/06/21 19:00 06/07/21 12:45 Sodium Chloride IV 280 mcg/min TITR ROSEMARIE 16.8 mls/hr Administration Protocol 50 MCG/MIN Dextrose 1,000 mls @ 30 mls/hr 06/07/21 01:00 D10w IV DIRECT ROSEMARIE Sodium Bicarbonate 150 meq/ 1,150 mls @ 100 mls/hr 06/07/21 08:00 06/07/21 09:00 Dextrose IV 100 mls/hr DIRECT ROSEMARIE Administration Sodium Chloride 1,000 mls @ 250 mls/hr 06/07/21 07:15 06/07/21 07:36 Nacl 0.9% 1000 Ml IV 06/08/21 11:14 250 mls/hr DIRECT ROSEMARIE Administration NORepinephrine/NS 8 MG-250 ML 8 mg in 250 mls @ 3.75 mls/hr 06/07/21 09:00 Norepinephrine/Ns 8 Mg-250 Ml (Double Conc) IV TITRATE ROSEMARIE Protocol 2 MCG/MIN Linezolid 600 mg in 300 mls @ 300 mls/hr 06/07/21 14:00 06/07/21 15:05 Zyvox 600mg/300ml IV 300 mls/hr Q12H ROSEMARIE Administration Protocol Propofol 1,000 mg in 100 mls @ 3.018 mls/hr 06/07/21 15:00 06/07/21 15:14 Diprivan 10 Mg/Ml IV 15 mcg/kg/min TITR ROSEMARIE 9.054 mls/hr Administration Protocol 5 MCG/KG/MIN Multi-Ingred Cream/Lotion/Oil/Oint 1 applic 05/23/21 12:34 05/30/21 22:14 Mineral Oil/Petrolatum, White Ophth Oint 3.5 Gm OU 1 applic Q4HR PRN Administration Dry Eye(s) Ondansetron HCl 4 mg 05/23/21 20:42 Ondansetron 4 Mg/2 Ml Inj IV Q8H PRN Nausea And Vomiting Quetiapine Fumarate 100 mg 06/03/21 22:00 06/07/21 09:02 Quetiapine 100 Mg Tab PO Not Given BID ROSEMARIE Senna/Docusate Sodium 1 tab 05/23/21 22:00 06/07/21 09:02 Sennosides/Docusate Sodium 8.6/50 Mg Tab FEEDTUBE Not Given BID ROSEMARIE Simple Syrup 15 ml 05/24/21 10:14 Simple Syrup 15 Ml FEEDTUBE PRN PRN Hypoglycemia Simple Syrup 30 ml 05/24/21 10:14 Simple Syrup 15 Ml FEEDTUBE PRN PRN Hypoglycemia Sodium Bicarbonate 325 mg 05/24/21 10:14 Sodium Bicarbonate 325 Mg Tab FEEDTUBE PRN PRN For Clogged Feeding Tube Sodium Chloride 10 ml 05/23/21 22:00 06/07/21 12:46 Sodium Chloride 0.9% 10 Ml Flush Syringe IV 10 ml BID ROSEMARIE Administration Sodium Chloride 10 ml 05/23/21 20:42 Sodium Chloride 0.9% 10 Ml Flush Syringe IV PRN PRN LINE FLUSH Nutrition/Malnutrition Assess - Dietary Evaluation Nutrition/Malnutrition Findings: Nutrition Notes Start: 05/24/21 09:53 Freq: Status: Active Protocol: Document 06/02/21 16:14 GB (Rec: 06/02/21 16:23 GB [id number]) Nutrition Notes Initial or Follow up Reassessment Current Diagnosis Acute Kidney Injury, Hypertension,Respiratory Failure Other Pertinent Diagnosis SIRS, encephalopathy, pneu, transaminitis Current Diet NPO, Tube Feeding Nepro @ 45m/ hr Labs/Tests 06/02: BUN 61, Creatinine 1.7, glucose 119 Pertinent Medications Fentanyl Citrate, Norepenephrin/NS 8 Mg 250, Propofol 20.466 ml/hr (540kcal ) Height 5 ft 8 in Weight 100.6 kg [place] Body Weight (kg) 70.00 BMI 33.7 Weight change and time frame Weights recorded to nursing flow sheet - that does not tie to I/O weight results documentation. Weight taken on bed 06/02 100. 6kg, bed changed out on 05/29 r /t not working. Unsure if current weight or pervious weight is accurate. Weight Status Obese Subjective/Other Information MD notes 06/02: Continue TF@ goal as tolerated, persistent lower lobe predominant airspace disease, slightly improved. Per discussion with RN: Bed was changed out on 05/29 due to not working. Weight taken on current bed 100.6kg 06/02. Unsure if bed was zero'd or if weight from previous bed was accurate. Recommend reweigh for weight confirmation. Pt does not appear to have lost significant weight. Also discussed goal rate of TF. Goal is 45m/hr and rate was recorded at 55ml/hr. TF rate now at 45ml/hr. Intubation/Sedation: continues Last BM: 05/30 Percent of energy/protein needs met: TF at goal meets 75% or greater of minimal estimated energy needs Burn Absent Trauma Absent GI Symptoms Other Difficulty In Swallowing Food Allergy No Current % PO Other Minimum of two criteria No #1 Nutrition Diagnosis Swallowing difficulty Comments: 05/25: intubation/sedation continues. TF started 05/28: intubation/sedation continues. TF Nepro @ goal 45ml/hr 06/02: intubation/sedation continues. TF Nepro @ 45m/hr Etiology ARF As Evidenced by Signs and Symptoms Intubated/sedated Diagnosis Progress(for reassessment Continues documentation) Is patient on ventilator? Yes Is Patient Ambulatory and/or Out of Bed No REE-([facility]-confined to bed) 2253.516 Kcal/Kg value to use for calculation 20 Approximate Energy Requirements Using 2012 kcal/Kg Calculation Used for Recommendations Kcal/kg Additional Notes Protein: 1-1.2 g/kg @ 100k-120g Fluid: 1 ml/kcal or per MD Nutrition Intervention Change Diet Order: Continue NPO, Tube feeding Nutrition Support: Nepro 1.8 at 45 ml/hr Flush 175 ml q4h or per MD Total free water: TF@goal + flush = 1835ml Kcal 1,950 Protein (gm) 88 Carbohydrates (gm) 174 Fat (gm) 104 Fluid (mL) 788 Fiber (gm) 14 % RDI: 98%kcal / 88%pro Add Supplement/Snack (indicate name/kcal n/a /protein ) Goal #1 Meet at least 75% or greater of EEN via TF 05/25: met, continues 05/28: met, continues 06/02: met, continues Goal #2 TF (Nepro) at goal rate (45ml/ hr) by f/u 05/25: TF started 05/28: TF at goal. met, continues 06/02: met, continues Anticipated Discharge Needs: Unable to determine at this time Follow-Up By: 06/09/21 Additional Comments f/u: TF tolerance, weight, vent status
[2021-06-07 18:47] LABS: Calcium 9.2 mg/dL (8.4-10.2)
[2021-06-07] MEDS: NORepinephrine/NS 8 MG-250 ML 8 MG/250 ML INFUS..BTL IV SCH (20:20)
[2021-06-08] MEDS: LINEZOLID 600 MG/300 ML BAG IV SCH ×2 (02:15→13:46)
[2021-06-08] MEDS: fentaNYL DRIP Premix 2,000 MCG/100 ML BAG IV SCH ×2 (03:08→17:51)
[2021-06-08] MEDS: CEFEPIME/NS 2 GM/100 ML 2 GM/100 ML BAG IV SCH (04:36)
[2021-06-08 05:14] LABS: Hematocrit 30.4 % (35.5-45.6); Hemoglobin 9.4 gm/dl (11.8-15.2); Mean Corpuscular HGB Conc 31 % (32-34); Mean Corpuscular Volume 95 fl (84-94); Platelet Count 171 K/mm3 (140-440); Red Cell Distribution Width 18.6 % (13.2-15.2)
[2021-06-08 05:41] LABS: Albumin 2.3 g/dL (3.9-5); Calcium 8.9 mg/dL (8.4-10.2)
[2021-06-08] MEDS: NORepinephrine/NS 8 MG-250 ML 8 MG/250 ML INFUS..BTL IV SCH ×3 (06:37→21:10)
[2021-06-08] MEDS: IPRATROPIUM/ALBUTEROL SULFATE 3 ML AMPUL.NEB IH SCH ×3 (08:23→19:25)
[2021-06-08] MEDS: FAMOTIDINE 20 MG TAB FEEDTUBE SCH ×2 (09:09→22:04)
[2021-06-08] MEDS: SENNOSIDES/DOCUSATE SODIUM 8.6/50 MG TAB FEEDTUBE SCH ×2 (09:09→22:04)
[2021-06-08] MEDS: APIXABAN 2.5 MG TAB PO SCH ×2 (09:10→22:05)
[2021-06-08] MEDS: QUEtiapine 100 MG TAB PO SCH ×2 (09:10→22:05)
[2021-06-08] MEDS: SODIUM BICARBONATE 150 MEQ in DEXTROSE 5% IN WATER 1,000 ML IV SCH ×2 (09:30→20:34)
[2021-06-08] MEDS ORDERED: DEXTROSE 50% IN WATER (25GM) 50 ML SYRINGE IV PRN (10:33)
[2021-06-08] MEDS: INSULIN REGULAR, HUMAN 100 UNITS/1 ML SUB-Q SCH ×2 (11:21→18:30)
[2021-06-08 11:28] LABS: ABG Base Excess -5.1 mmol/L (-2.0-3.0); ABG HCO3 21.2 mmol/L (20.0-26.0); ABG Methemoglobin 0.5 % (0.0-1.5); ABG Oxygen Saturation 94.8 % (95.0-99.0); ABG PH 7.291 pH Units (7.350-7.450); ABG PO2 78.8 mm Hg (80.0-90.0)
[2021-06-08] MEDS: VASOPRESSIN 20 UNIT in SODIUM CHLORIDE 0.9% 100 ML IV SCH ×2 (11:39→23:26)
--- NOTE | 2021-06-08 12:08 | Progress Note ---
Assessment and Plan Assessment: Acute Renal Failure likely on CKD Hypertension Acute Respiratory Failure Pneumonia, community-acquired Morbid obesity Obstructive sleep apnea Edema Plan: Renal labs reviewed. Worsening renal function likely due to ischemic ATN. Serum creatinine 3.5 today, yesterday's was 3.2, no UOP recorded Due to rising serum creatinine with minimal UOP, hemodialysis is recommended. I spoke with patient's mother on the phone today and she states that she and her family is still deciding on dialysis initiation and that they are not ready to give an answer as of yet. Risk and benefit of starting dialysis explained and all questions were answered Potassium is better today at 5.0 Hypotension- On Norepi and Vasopressin Renally dose medications Obtain daily weights Monitor I/O's daily-has dill catheter- only 20 ml seen in dill during my rounds today. RN reports no UOP overnight Avoid nephrotoxic agents Continue to monitor renal function closely Awaiting family's decision regarding initiation of hemodialysis Plan of care reviewed by Dr. Santos Subjective Date of service: 06/08/21 Principal diagnosis: Acute hypoxemic and hypercapnic resp failure; PUI COVID-19; Pneumonia; FERMIN Interval history: Patient seen lying in bed, he remains intubated and sedated.Spoke to mother over the phone who states she still has not decided on dialysis initiation as of yet. Objective - Vital Signs Vital signs: Vital Signs - 12hr 06/08/21 06/08/21 06/08/21 00:15 00:30 00:45 Temperature Pulse Rate 108 H 105 H 105 H Pulse Rate [ Anterior Bilateral Throughout] Pulse Rate [ From Monitor] Respiratory 18 13 18 Rate Respiratory Rate [Anterior Bilateral Throughout] Blood Pressure 123/63 123/63 121/55 O2 Sat by Pulse 100 100 100 Oximetry 06/08/21 06/08/21 06/08/21 01:00 01:15 01:30 Temperature Pulse Rate 106 H 102 H 102 H Pulse Rate [ Anterior Bilateral Throughout] Pulse Rate [ From Monitor] Respiratory 17 17 18 Rate Respiratory Rate [Anterior Bilateral Throughout] Blood Pressure 142/61 116/47 120/65 O2 Sat by Pulse 100 95 96 Oximetry 06/08/21 06/08/21 06/08/21 01:45 02:00 02:15 Temperature Pulse Rate 102 H 103 H 103 H Pulse Rate [ Anterior Bilateral Throughout] Pulse Rate [ From Monitor] Respiratory 17 15 20 Rate Respiratory Rate [Anterior Bilateral Throughout] Blood Pressure 126/60 138/65 120/67 O2 Sat by Pulse 97 98 94 Oximetry 06/08/21 06/08/21 06/08/21 02:30 02:45 03:00 Temperature Pulse Rate 103 H 101 H 102 H Pulse Rate [ Anterior Bilateral Throughout] Pulse Rate [ From Monitor] Respiratory 19 14 15 Rate Respiratory Rate [Anterior Bilateral Throughout] Blood Pressure 122/61 117/65 114/60 O2 Sat by Pulse 99 99 99 Oximetry 06/08/21 06/08/21 06/08/21 03:15 03:23 03:30 Temperature 99.5 F Pulse Rate 105 H 102 H Pulse Rate [ Anterior Bilateral Throughout] Pulse Rate [ From Monitor] Respiratory 17 18 Rate Respiratory Rate [Anterior Bilateral Throughout] Blood Pressure 126/57 121/60 O2 Sat by Pulse 100 99 Oximetry 06/08/21 06/08/21 06/08/21 03:45 04:00 04:15 Temperature Pulse Rate 104 H 107 H 103 H Pulse Rate [ Anterior Bilateral Throughout] Pulse Rate [ 101 H From Monitor] Respiratory 21 12 20 Rate Respiratory Rate [Anterior Bilateral Throughout] Blood Pressure 140/64 122/61 130/63 O2 Sat by Pulse 99 100 99 Oximetry 06/08/21 06/08/21 06/08/21 04:26 04:30 04:45 Temperature Pulse Rate 92 H 109 H 103 H Pulse Rate [ Anterior Bilateral Throughout] Pulse Rate [ From Monitor] Respiratory 22 17 Rate Respiratory Rate [Anterior Bilateral Throughout] Blood Pressure 160/78 122/61 134/71 O2 Sat by Pulse 100 96 98 Oximetry 06/08/21 06/08/21 06/08/21 05:00 05:15 05:30 Temperature Pulse Rate 104 H 107 H 107 H Pulse Rate [ Anterior Bilateral Throughout] Pulse Rate [ From Monitor] Respiratory 19 28 H 16 Rate Respiratory Rate [Anterior Bilateral Throughout] Blood Pressure 129/66 151/64 129/66 O2 Sat by Pulse 100 98 98 Oximetry 06/08/21 06/08/21 06/08/21 05:45 06:00 06:16 Temperature Pulse Rate 106 H 113 H 108 H Pulse Rate [ Anterior Bilateral Throughout] Pulse Rate [ From Monitor] Respiratory 17 18 30 H Rate Respiratory Rate [Anterior Bilateral Throughout] Blood Pressure 154/69 151/61 118/54 O2 Sat by Pulse 99 97 92 Oximetry 06/08/21 06/08/21 06/08/21 06:30 06:46 07:00 Temperature Pulse Rate 112 H 115 H 121 H Pulse Rate [ Anterior Bilateral Throughout] Pulse Rate [ From Monitor] Respiratory 30 H 30 H 30 H Rate Respiratory Rate [Anterior Bilateral Throughout] Blood Pressure 122/56 107/63 95/62 O2 Sat by Pulse 91 98 100 Oximetry 06/08/21 06/08/21 06/08/21 07:15 07:30 07:45 Temperature Pulse Rate 120 H 119 H 119 H Pulse Rate [ Anterior Bilateral Throughout] Pulse Rate [ From Monitor] Respiratory 30 H 29 H 28 H Rate Respiratory Rate [Anterior Bilateral Throughout] Blood Pressure 140/55 120/49 132/58 O2 Sat by Pulse 99 96 97 Oximetry 06/08/21 06/08/21 06/08/21 08:00 08:16 08:21 Temperature 98.4 F Pulse Rate 112 H 111 H 112 H Pulse Rate [ Anterior Bilateral Throughout] Pulse Rate [ 109 H From Monitor] Respiratory 30 H 24 Rate Respiratory Rate [Anterior Bilateral Throughout] Blood Pressure 94/54 94/54 91/53 O2 Sat by Pulse 96 97 96 Oximetry 06/08/21 06/08/21 06/08/21 08:23 08:30 08:46 Temperature Pulse Rate 111 H 108 H Pulse Rate [ 109 H Anterior Bilateral Throughout] Pulse Rate [ From Monitor] Respiratory 24 17 Rate Respiratory 30 H Rate [Anterior Bilateral Throughout] Blood Pressure 94/54 117/56 O2 Sat by Pulse 99 85 Oximetry 06/08/21 06/08/21 06/08/21 09:00 09:16 09:30 Temperature Pulse Rate 105 H 106 H 108 H Pulse Rate [ Anterior Bilateral Throughout] Pulse Rate [ From Monitor] Respiratory 12 29 H 27 H Rate Respiratory Rate [Anterior Bilateral Throughout] Blood Pressure 120/58 120/58 106/52 O2 Sat by Pulse 92 90 88 Oximetry 06/08/21 06/08/21 06/08/21 09:46 10:00 10:16 Temperature Pulse Rate 108 H 109 H 110 H Pulse Rate [ Anterior Bilateral Throughout] Pulse Rate [ From Monitor] Respiratory 30 H 22 15 Rate Respiratory Rate [Anterior Bilateral Throughout] Blood Pressure 106/52 100/49 100/49 O2 Sat by Pulse 89 93 86 Oximetry 06/08/21 06/08/21 06/08/21 10:30 10:46 11:00 Temperature Pulse Rate 105 H 106 H 108 H Pulse Rate [ Anterior Bilateral Throughout] Pulse Rate [ From Monitor] Respiratory 30 H 21 30 H Rate Respiratory Rate [Anterior Bilateral Throughout] Blood Pressure 93/57 93/57 113/51 O2 Sat by Pulse 99 97 100 Oximetry 06/08/21 06/08/21 11:16 11:30 Temperature Pulse Rate 108 H 110 H Pulse Rate [ Anterior Bilateral Throughout] Pulse Rate [ From Monitor] Respiratory 27 H 23 Rate Respiratory Rate [Anterior Bilateral Throughout] Blood Pressure 113/51 110/50 O2 Sat by Pulse 100 96 Oximetry - General Appearance General appearance: obese, sedated on ventilator, intubated EENT: ATNC Neck: no JVD Respiratory: Present: Decreased Breath Sounds, Other (Intubated) Cardiology: S1S2, other Gastrointestinal: other (Obese Abdomen) Integumentary: other (dry skin) Neurologic: other (Sedated) Musculoskeletal: joint swelling - Lab 06/08/21 04:21 06/08/21 04:21 Most recent lab results ABG pH 7.291 pH Units (7.350-7.450) L 06/08/21 Unknown ABG pCO2 45.0 mm Hg 06/08/21 Unknown ABG pO2 78.8 mm Hg (80.0-90.0) L 06/08/21 Unknown ABG HCO3 21.2 mmol/L (20.0-26.0) 06/08/21 Unknown ABG O2 Saturation 94.8 % (95.0-99.0) L 06/08/21 Unknown Calcium 8.9 mg/dL (8.4-10.2) 06/08/21 04:21 Phosphorus 2.90 mg/dL (2.5-4.5) 05/28/21 05:30 Magnesium 2.40 mg/dL (1.7-2.3) H 05/28/21 05:30 Urine Creatinine 222.7 mg/dL (0.1-20.0) H 06/06/21 13:30 Urine Sodium 18 mmol/L 06/06/21 13:30 Urine Total Protein 80 mg/dL (5-11.8) H 05/26/21 12:37 Medications & Allergies - Medications Allergies/Adverse Reactions: Allergies No Known Allergies Allergy (Unverified 05/25/21 12:48) Home Medications: Home Medications Medication Instructions Recorded Confirmed Last Taken Type Amoxicillin [Amoxicillin TAB] 875 mg PO BID #20 tablet 11/12/14 05/29/21 Unknown Rx Apixaban 2.5 mg PO BID 05/29/21 05/29/21 Unknown History Cholecalciferol (Vitamin D3) 3 mg PO 1XW 05/29/21 05/29/21 Unknown History Metoprolol 150 mg PO BID 05/29/21 05/29/21 Unknown History Torsemide 80 mg PO DAILY 05/29/21 05/29/21 Unknown History Active Medications: Generic Name Dose Route Start Last Admin Trade Name Freq PRN Reason Stop Dose Admin Acetaminophen 650 mg 05/23/21 20:42 06/06/21 22:42 Acetaminophen 325 Mg Tab PO 650 mg Q4H PRN Administration Pain MILD(1-3)/Fever >100.5/CASTORENA Albuterol 2.5 mg 05/23/21 21:11 Albuterol 2.5 Mg/3 Ml Nebu IH Q4HRT PRN Shortness Of Breath Albuterol/Ipratropium 1 ampul 05/29/21 08:00 06/08/21 08:23 Ipratropium/Albuterol Sulfate 3 Ml Ampul.Neb IH 1 ampul TIDRT ROSEMARIE Administration Lipase/Protease/Amylase 1 each 05/24/21 10:14 Lipase 10,500/Protease 25,000/Amylase 43,750 (Units) Dr Cap FEEDTUBE PRN PRN For Clogged Feeding Tube Apixaban 2.5 mg 05/29/21 13:00 06/08/21 09:10 Apixaban 2.5 Mg Tab PO 2.5 mg Q12HR ROSEMARIE Administration Protocol Dextrose 50 ml 06/08/21 10:33 Dextrose 50% In Water (25gm) 50 Ml Syringe IV Q30MIN PRN Hypoglycemia Protocol Famotidine 10 mg 06/06/21 22:00 06/08/21 09:09 Famotidine 20 Mg Tab FEEDTUBE 10 mg BID ROSEMARIE Administration Hydrophilic Ointment 1 applic 05/23/21 12:34 Lip Therapy Vaseline TP Q2HR PRN Dry Lips Fentanyl Citrate 2,000 mcg in 100 mls @ 8.528 mls/hr 05/23/21 13:00 06/08/21 11:39 Fentanyl Drip Premix IV 0.6 mcg/kg/hr TITR ROSEMARIE 5.117 mls/hr Titration Protocol 1 MCG/KG/HR Cefepime HCl 2 gm in 100 mls @ 200 mls/hr 06/07/21 04:00 06/08/21 04:36 Cefepime/Ns 2 Gm/100 Ml IV 200 mls/hr Q24H ROSEMARIE Administration Protocol Sodium Chloride 500 mls @ 1 mls/hr 06/06/21 13:40 06/06/21 14:18 Nacl 0.9% 500 Ml IV 1 mls/hr DIRECT PRN Administration ARTERIAL LINE FLUSH Vasopressin 20 unit/ Sodium 101 mls @ 9.09 mls/hr 06/06/21 15:00 06/08/21 11:39 Chloride IV 0.03 units/min TITR ROSEMARIE 9.09 mls/hr Administration Protocol 0.03 UNITS/MIN Phenylephrine HCl 100 mg/ 100 mls @ 3 mls/hr 06/06/21 19:00 06/08/21 11:39 Sodium Chloride IV 10 mcg/min TITR ROSEMARIE 0.6 mls/hr Titration Protocol 50 MCG/MIN Sodium Bicarbonate 150 meq/ 1,150 mls @ 100 mls/hr 06/07/21 08:00 06/08/21 09:30 Dextrose IV 100 mls/hr DIRECT ROSEMARIE Administration NORepinephrine/NS 8 MG-250 ML 8 mg in 250 mls @ 3.75 mls/hr 06/07/21 09:00 06/08/21 10:26 Norepinephrine/Ns 8 Mg-250 Ml (Double Conc) IV 20 mcg/min TITRATE ROSEMARIE 37.5 mls/hr Titration Protocol 2 MCG/MIN Linezolid 600 mg in 300 mls @ 300 mls/hr 06/07/21 14:00 06/08/21 02:15 Zyvox 600mg/300ml IV 300 mls/hr Q12H ROSEMARIE Administration Protocol Propofol 1,000 mg in 100 mls @ 3.018 mls/hr 06/07/21 15:00 06/08/21 11:40 Diprivan 10 Mg/Ml IV 5 mcg/kg/min TITR ROSEMARIE 3.018 mls/hr Titration Protocol 5 MCG/KG/MIN Insulin Human Regular 0 units 06/08/21 12:00 06/08/21 11:21 Insulin Regular, Human 100 Units/1 Ml SUB-Q Not Given Q6H ROSEMARIE Protocol Multi-Ingred Cream/Lotion/Oil/Oint 1 applic 05/23/21 12:34 05/30/21 22:14 Mineral Oil/Petrolatum, White Ophth Oint 3.5 Gm OU 1 applic Q4HR PRN Administration Dry Eye(s) Ondansetron HCl 4 mg 05/23/21 20:42 Ondansetron 4 Mg/2 Ml Inj IV Q8H PRN Nausea And Vomiting Quetiapine Fumarate 100 mg 06/03/21 22:00 06/08/21 09:10 Quetiapine 100 Mg Tab PO 100 mg BID ROSEMARIE Administration Senna/Docusate Sodium 1 tab 05/23/21 22:00 06/08/21 09:09 Sennosides/Docusate Sodium 8.6/50 Mg Tab FEEDTUBE 1 tab BID ROSEMARIE Administration Simple Syrup 15 ml 05/24/21 10:14 Simple Syrup 15 Ml FEEDTUBE PRN PRN Hypoglycemia Simple Syrup 30 ml 05/24/21 10:14 Simple Syrup 15 Ml FEEDTUBE PRN PRN Hypoglycemia Sodium Bicarbonate 325 mg 05/24/21 10:14 Sodium Bicarbonate 325 Mg Tab FEEDTUBE PRN PRN For Clogged Feeding Tube Sodium Chloride 10 ml 05/23/21 22:00 06/08/21 09:11 Sodium Chloride 0.9% 10 Ml Flush Syringe IV 10 ml BID ROSEMARIE Administration Sodium Chloride 10 ml 05/23/21 20:42 Sodium Chloride 0.9% 10 Ml Flush Syringe IV PRN PRN LINE FLUSH
--- NOTE | 2021-06-08 12:42 | Progress Note ---
Assessment and Plan Cultures: Blood culture 05/23/2021 1 bottle coag negative staph Urine culture 05/23/2021 no growth Blood culture 06/02/2021 no growth so far Urine culture 06/04/2021 no growth so far 06/04/2021 tracheal aspirate culture: MRSA, Acinetobacter A/P: 41-year-old man past medical history obesity presented to hospital in respiratory failure: #Septic shock: Likely secondary to dense right lower lobe pneumonia. Urinalysis without convincing evidence of infection. #Acute hypoxic respiratory failure: COVID-19 negative. Currently on the vent. #Shock liver #FERMIN: renally dose medications. #Coag negative Staph bacteremia: likely contaminant. Recs: Continue renally dosed cefepime Continue IV linezolid Poor prognosis Jonathan Brasher MD, FACP [facility], [facility] O: [phone] F: [phone] Subjective Date of service: 06/08/21 Principal diagnosis: Acute hypoxemic and hypercapnic resp failure; PUI COVID-19; Pneumonia; FERMIN Interval history: Febrile yesterday. Remains on the vent. On multiple pressors. Objective - Exam Narrative Exam: Physical Exam: Constitutional: sedated, intubated, on the vent. Morbidly obese. Head, Ears, Nose: Normocephalic, atraumatic. External ears, nose normal Eyes: Conjunctivae/corneas clear. No icterus. No ptosis. Neck: intubated Oral: intubated Cardiovascular: S1, S2 + Respiratory: AE fair bilaterally and equal GI: Soft, bowel sounds hypo Musculoskeletal: No pedal edema, no cyanosis. Skin: No rash or abscess Hem/Lymphatic: No palpable cervical or supraclavicular nodes. No lymphangitis Psych: no agitation Neurological: sedated, intubated, on the vent, exam limited - Constitutional Vitals: Vital Signs Temp Pulse Resp BP Pulse Ox 98.4 F 115 H 23 85/57 92 06/08/21 08:00 06/08/21 12:23 06/08/21 11:30 06/08/21 12:23 06/08/21 12:23 Temperature -Last 24 Hours Temperature 98.4 F Temperature 99.5 F Temperature 99.0 F Temperature 98.2 F Temperature 99.2 F - Labs CBC & Chem 7: 06/08/21 04:21 06/08/21 04:21 Labs: Abnormal lab results 06/07/21 06/07/21 06/07/21 Range/Units 12:20 18:04 21:26 WBC (4.5-11.0) K/mm3 RBC (3.65-5.03) M/mm3 Hgb (11.8-15.2) gm/dl Hct (35.5-45.6) % MCV (84-94) fl MCHC (32-34) % RDW (13.2-15.2) % ABG pH 7.279 L (7.320-7.450) POC ABG pO2 72.3 L (83-108) mmHg ABG pO2 (80.0-90.0) mm Hg ABG O2 Saturation (95.0-99.0) % ABG Base Excess (-2.0-3.0) mmol/L ABG Hemoglobin 11.1 L (12.0-17.5) ABG Oxyhemoglobin 92.4 L (94-98) ABG Potassium 5.3 H (3.40-4.50) mmol/L ABG Chloride 109.0 H (98-107) mmol/L ABG Glucose 165 H (65-95) mg/dL Oxyhemoglobin (95.0-99.0) % Carboxyhemoglobin 0.2 L (0.5-1.5) Potassium 6.1 H* 5.8 H (3.6-5.0) mmol/L Chloride (98-107) mmol/L Carbon Dioxide 15 L 16 L (22-30) mmol/L BUN 85 H 84 H (9-20) mg/dL Creatinine 3.2 H 3.2 H (0.8-1.3) mg/dL Glucose 165 H 186 H (75-100) mg/dL POC Glucose (70-105) mg/dL Total Bilirubin (0.1-1.2) mg/dL AST (5-40) units/L ALT (7-56) units/L Albumin (3.9-5) g/dL Lipase (13-60) units/L Arterial Blood Glucose 165 H (65-95) mg/dL 06/07/21 06/08/21 06/08/21 Range/Units 23:18 04:20 04:21 WBC 15.6 H (4.5-11.0) K/mm3 RBC 3.20 L (3.65-5.03) M/mm3 Hgb 9.4 L (11.8-15.2) gm/dl Hct 30.4 L (35.5-45.6) % MCV 95 H (84-94) fl MCHC 31 L (32-34) % RDW 18.6 H (13.2-15.2) % ABG pH (7.320-7.450) POC ABG pO2 (83-108) mmHg ABG pO2 (80.0-90.0) mm Hg ABG O2 Saturation (95.0-99.0) % ABG Base Excess (-2.0-3.0) mmol/L ABG Hemoglobin (12.0-17.5) ABG Oxyhemoglobin (94-98) ABG Potassium (3.40-4.50) mmol/L ABG Chloride (98-107) mmol/L ABG Glucose (65-95) mg/dL Oxyhemoglobin (95.0-99.0) % Carboxyhemoglobin (0.5-1.5) Potassium (3.6-5.0) mmol/L Chloride (98-107) mmol/L Carbon Dioxide (22-30) mmol/L BUN (9-20) mg/dL Creatinine (0.8-1.3) mg/dL Glucose (75-100) mg/dL POC Glucose 133 H (70-105) mg/dL Total Bilirubin (0.1-1.2) mg/dL AST (5-40) units/L ALT (7-56) units/L Albumin (3.9-5) g/dL Lipase 86 H (13-60) units/L Arterial Blood Glucose (65-95) mg/dL 06/08/21 06/08/21 06/08/21 Range/Units 04:21 05:19 11:14 WBC (4.5-11.0) K/mm3 RBC (3.65-5.03) M/mm3 Hgb (11.8-15.2) gm/dl Hct (35.5-45.6) % MCV (84-94) fl MCHC (32-34) % RDW (13.2-15.2) % ABG pH (7.320-7.450) POC ABG pO2 (83-108) mmHg ABG pO2 (80.0-90.0) mm Hg ABG O2 Saturation (95.0-99.0) % ABG Base Excess (-2.0-3.0) mmol/L ABG Hemoglobin (12.0-17.5) ABG Oxyhemoglobin (94-98) ABG Potassium (3.40-4.50) mmol/L ABG Chloride (98-107) mmol/L ABG Glucose (65-95) mg/dL Oxyhemoglobin (95.0-99.0) % Carboxyhemoglobin (0.5-1.5) Potassium (3.6-5.0) mmol/L Chloride 107.3 H (98-107) mmol/L Carbon Dioxide 19 L (22-30) mmol/L BUN 83 H (9-20) mg/dL Creatinine 3.5 H (0.8-1.3) mg/dL Glucose 139 H (75-100) mg/dL POC Glucose 142 H 128 H (70-105) mg/dL Total Bilirubin 1.30 H (0.1-1.2) mg/dL AST 9433 H (5-40) units/L ALT 5071 H (7-56) units/L Albumin 2.3 L (3.9-5) g/dL Lipase (13-60) units/L Arterial Blood Glucose (65-95) mg/dL 06/08/21 06/08/21 Range/Units 12:19 Unknown WBC (4.5-11.0) K/mm3 RBC (3.65-5.03) M/mm3 Hgb (11.8-15.2) gm/dl Hct (35.5-45.6) % MCV (84-94) fl MCHC (32-34) % RDW (13.2-15.2) % ABG pH 7.291 L (7.320-7.450) POC ABG pO2 (83-108) mmHg ABG pO2 78.8 L (80.0-90.0) mm Hg ABG O2 Saturation 94.8 L (95.0-99.0) % ABG Base Excess -5.1 L (-2.0-3.0) mmol/L ABG Hemoglobin 9.9 L (12.0-17.5) ABG Oxyhemoglobin (94-98) ABG Potassium (3.40-4.50) mmol/L ABG Chloride (98-107) mmol/L ABG Glucose (65-95) mg/dL Oxyhemoglobin 93.1 L (95.0-99.0) % Carboxyhemoglobin (0.5-1.5) Potassium (3.6-5.0) mmol/L Chloride (98-107) mmol/L Carbon Dioxide (22-30) mmol/L BUN (9-20) mg/dL Creatinine (0.8-1.3) mg/dL Glucose (75-100) mg/dL POC Glucose 120 H (70-105) mg/dL Total Bilirubin (0.1-1.2) mg/dL AST (5-40) units/L ALT (7-56) units/L Albumin (3.9-5) g/dL Lipase (13-60) units/L Arterial Blood Glucose (65-95) mg/dL
--- NOTE | 2021-06-08 14:10 | Progress Note ---
Assessment and Plan Acute possibly on chronic hypoxemic and hypercapnic respiratory failure Pneumonia, community-acquired Acute toxic metabolic encephalopathy Person under investigation for COVID-19 Morbid obesity Obstructive sleep apnea History of hypertension Acute kidney injury Hyperkalemia Elevated serum transaminases Possible shock liver Hyperammonemia Non-ST elevation myocardial infarction - continue compensatory hyperventilation - serum K+ better (continue medical management) - follow repeat US chest +/- thoracentesis - repeat ABG at 9pm tonight - continue care as below otherwise; - wean vasopressors for target MAP > 65 mmHg - continue Eliquis - continue Revatio re: pulm HTN - nephrology input appreciated (azotemia improving) - continue Daily SAT and SBT assessment as tolerated - continue to wean supplemental oxygen for target O2 sat's > 90% acutely - VAP bundle addressed - continue lung protective strategies - continue bronchodilators with pulmonary hygiene per RT - wean per pulmonary driven protocols otherwise - avoid nephrotoxins, renally dose all medications - continue accuchecks with glycemic control per SSI (While critically ill target blood glucose of 140-180 mg/dL; avoid hypoglycemia) - sedation prn for target RASS 0 to -1 - continue to avoid benzodiazepine's, reduce the possibility of delirium - de-escalate antiinfective's per ID recommendations - prn analgesia per CPOT score - Maintenance of sleep-wake cycle, avoid delirium - continue enteral nutritional support at goal rate as tolerated - G.I. & VTE prophylaxis - PT/OT/ROM exercises - continue mobility protocols for pressure ulcer prophylaxis - Monitor hemodynamics closely - continue other care per attending / other consultants - discharge planning ongoing concurrently COVID SPECIFIC INTERVENTIONS - COVID-19 test result pending .... Re-evaluate in am & prn CONDITION: CRITICAL PROGNOSIS: GUARDED CODE STATUS: FULL CODE The high probability of a clinically significant, sudden or life-threatening deterioration of the [respiratory, cardiovascular, renal & neurologic] system(s) required my full and direct attention, intervention and personal management. The aggregate critical care time was [32] minutes without overlap. Time includes spent on; [x] Data Review and interpretation [x] Patient assessment and monitoring of vital signs [x] Documentation [x] Medication orders and management Subjective Date of service: 06/08/21 Principal diagnosis: Acute hypoxemic and hypercapnic resp failure; PUI COVID-19; Pneumonia; FERMIN Interval history: Patient is seen today for: Acute hypoxemic and hypercapnic respiratory failure; PUI NCOVID-19; Pneumonia; CAP; FERMIN; REVA Seen and examined at bedside; 24hour events reviewed; nursing and respiratory care staff consulted; no adverse overnight events reported to me; remains on MVS; remains on MVS; pH better but remains on vasopressors; NOK still refuses dialysis; responsive and nods head "No" to pain question Objective Vital Signs - 12hr 06/08/21 06/08/21 06/08/21 02:15 02:30 02:45 Temperature Pulse Rate 103 H 103 H 101 H Pulse Rate [ Anterior Bilateral Throughout] Pulse Rate [ From Monitor] Respiratory 20 19 14 Rate Respiratory Rate [Anterior Bilateral Throughout] Blood Pressure 120/67 122/61 117/65 O2 Sat by Pulse 94 99 99 Oximetry 06/08/21 06/08/21 06/08/21 03:00 03:15 03:23 Temperature 99.5 F Pulse Rate 102 H 105 H Pulse Rate [ Anterior Bilateral Throughout] Pulse Rate [ From Monitor] Respiratory 15 17 Rate Respiratory Rate [Anterior Bilateral Throughout] Blood Pressure 114/60 126/57 O2 Sat by Pulse 99 100 Oximetry 06/08/21 06/08/21 06/08/21 03:30 03:45 04:00 Temperature Pulse Rate 102 H 104 H 107 H Pulse Rate [ Anterior Bilateral Throughout] Pulse Rate [ 101 H From Monitor] Respiratory 18 21 12 Rate Respiratory Rate [Anterior Bilateral Throughout] Blood Pressure 121/60 140/64 122/61 O2 Sat by Pulse 99 99 100 Oximetry 06/08/21 06/08/21 06/08/21 04:15 04:26 04:30 Temperature Pulse Rate 103 H 92 H 109 H Pulse Rate [ Anterior Bilateral Throughout] Pulse Rate [ From Monitor] Respiratory 20 22 Rate Respiratory Rate [Anterior Bilateral Throughout] Blood Pressure 130/63 160/78 122/61 O2 Sat by Pulse 99 100 96 Oximetry 06/08/21 06/08/21 06/08/21 04:45 05:00 05:15 Temperature Pulse Rate 103 H 104 H 107 H Pulse Rate [ Anterior Bilateral Throughout] Pulse Rate [ From Monitor] Respiratory 17 19 28 H Rate Respiratory Rate [Anterior Bilateral Throughout] Blood Pressure 134/71 129/66 151/64 O2 Sat by Pulse 98 100 98 Oximetry 06/08/21 06/08/21 06/08/21 05:30 05:45 06:00 Temperature Pulse Rate 107 H 106 H 113 H Pulse Rate [ Anterior Bilateral Throughout] Pulse Rate [ From Monitor] Respiratory 16 17 18 Rate Respiratory Rate [Anterior Bilateral Throughout] Blood Pressure 129/66 154/69 151/61 O2 Sat by Pulse 98 99 97 Oximetry 06/08/21 06/08/21 06/08/21 06:16 06:30 06:46 Temperature Pulse Rate 108 H 112 H 115 H Pulse Rate [ Anterior Bilateral Throughout] Pulse Rate [ From Monitor] Respiratory 30 H 30 H 30 H Rate Respiratory Rate [Anterior Bilateral Throughout] Blood Pressure 118/54 122/56 107/63 O2 Sat by Pulse 92 91 98 Oximetry 06/08/21 06/08/21 06/08/21 07:00 07:15 07:30 Temperature Pulse Rate 121 H 120 H 119 H Pulse Rate [ Anterior Bilateral Throughout] Pulse Rate [ From Monitor] Respiratory 30 H 30 H 29 H Rate Respiratory Rate [Anterior Bilateral Throughout] Blood Pressure 95/62 140/55 120/49 O2 Sat by Pulse 100 99 96 Oximetry 06/08/21 06/08/21 06/08/21 07:45 08:00 08:16 Temperature 98.4 F Pulse Rate 119 H 112 H 111 H Pulse Rate [ Anterior Bilateral Throughout] Pulse Rate [ 109 H From Monitor] Respiratory 28 H 30 H 24 Rate Respiratory Rate [Anterior Bilateral Throughout] Blood Pressure 132/58 94/54 94/54 O2 Sat by Pulse 97 96 97 Oximetry 06/08/21 06/08/21 06/08/21 08:21 08:23 08:30 Temperature Pulse Rate 112 H 111 H Pulse Rate [ 109 H Anterior Bilateral Throughout] Pulse Rate [ From Monitor] Respiratory 24 Rate Respiratory 30 H Rate [Anterior Bilateral Throughout] Blood Pressure 91/53 94/54 O2 Sat by Pulse 96 99 Oximetry 06/08/21 06/08/21 06/08/21 08:46 09:00 09:16 Temperature Pulse Rate 108 H 105 H 106 H Pulse Rate [ Anterior Bilateral Throughout] Pulse Rate [ From Monitor] Respiratory 17 12 29 H Rate Respiratory Rate [Anterior Bilateral Throughout] Blood Pressure 117/56 120/58 120/58 O2 Sat by Pulse 85 92 90 Oximetry 06/08/21 06/08/21 06/08/21 09:30 09:46 10:00 Temperature Pulse Rate 108 H 108 H 109 H Pulse Rate [ Anterior Bilateral Throughout] Pulse Rate [ From Monitor] Respiratory 27 H 30 H 22 Rate Respiratory Rate [Anterior Bilateral Throughout] Blood Pressure 106/52 106/52 100/49 O2 Sat by Pulse 88 89 93 Oximetry 06/08/21 06/08/21 06/08/21 10:16 10:30 10:46 Temperature Pulse Rate 110 H 105 H 106 H Pulse Rate [ Anterior Bilateral Throughout] Pulse Rate [ From Monitor] Respiratory 15 30 H 21 Rate Respiratory Rate [Anterior Bilateral Throughout] Blood Pressure 100/49 93/57 93/57 O2 Sat by Pulse 86 99 97 Oximetry 06/08/21 06/08/21 06/08/21 11:00 11:16 11:30 Temperature Pulse Rate 108 H 108 H 110 H Pulse Rate [ Anterior Bilateral Throughout] Pulse Rate [ From Monitor] Respiratory 30 H 27 H 23 Rate Respiratory Rate [Anterior Bilateral Throughout] Blood Pressure 113/51 113/51 110/50 O2 Sat by Pulse 100 100 96 Oximetry 06/08/21 06/08/21 06/08/21 11:46 12:00 12:16 Temperature 97.6 F Pulse Rate 110 H 111 H 110 H Pulse Rate [ Anterior Bilateral Throughout] Pulse Rate [ 112 H From Monitor] Respiratory 20 30 H 18 Rate Respiratory Rate [Anterior Bilateral Throughout] Blood Pressure 110/50 110/50 110/50 O2 Sat by Pulse 94 93 90 Oximetry 06/08/21 06/08/21 06/08/21 12:23 12:30 12:46 Temperature Pulse Rate 115 H 110 H 112 H Pulse Rate [ Anterior Bilateral Throughout] Pulse Rate [ From Monitor] Respiratory 30 H 30 H Rate Respiratory Rate [Anterior Bilateral Throughout] Blood Pressure 85/57 113/54 113/54 O2 Sat by Pulse 92 91 93 Oximetry 06/08/21 13:00 Temperature Pulse Rate 118 H Pulse Rate [ Anterior Bilateral Throughout] Pulse Rate [ From Monitor] Respiratory 13 Rate Respiratory Rate [Anterior Bilateral Throughout] Blood Pressure 116/58 O2 Sat by Pulse 93 Oximetry Constitutional: appears uncomfortable, other (middle aged morbidly obese male with mildly increased respiratory effort at rest on MVS) Eyes: non-icteric ENT: oropharynx moist, other (ETT 24 cm FRANCIS) Neck: supple, no lymphadenopathy, no JVD Effort: mildly labored Ascultation: Bilateral: diminished breath sounds, rhonchi Percussion: Bilateral: not dull Cardiovascular: regular rate and rhythm Gastrointestinal: normoactive bowel sounds, soft, non-tender, non-distended Integumentary: rash (stasis dermatitis) Extremities: no cyanosis, pulses normal, no ischemia or petechiae, edema (trace) Neurologic: non-focal exam (grossly), pupils equal and round, CN II-XII normal, other (sedated) Psychiatric: other (sedated) CBC and BMP: 06/08/21 04:21 06/09/21 04:00 ABG, PT/INR, D-dimer: ABG ABG pH 7.291 pH Units (7.350-7.450) L 06/08/21 Unknown POC ABG pCO2 43.4 mmHg (32.0-48.0) 06/07/21 21:26 ABG pCO2 45.0 mm Hg 06/08/21 Unknown POC ABG pO2 72.3 mmHg (83-108) L 06/07/21 21:26 ABG pO2 78.8 mm Hg (80.0-90.0) L 06/08/21 Unknown POC ABG HCO3 19.9 06/07/21 21:26 ABG O2 Saturation 94.8 % (95.0-99.0) L 06/08/21 Unknown PT/INR, D-dimer PT 15.3 Sec. (12.2-14.9) H 05/29/21 13:40 INR 1.09 (0.87-1.13) 05/29/21 13:40 D-Dimer 4444.85 ng/mlDDU (0-234) H 05/23/21 15:09 Abnormal lab findings: Abnormal Labs 05/23/21 05/23/21 05/23/21 15:00 15:09 15:09 WBC RBC Hgb Hct MCV 95 H MCHC 30 L RDW 20.1 H Plt Count Lymph % (Auto) 5.9 L [place] % (Auto) Lymph # (Auto) 0.6 L [place] # (Auto) Seg Neutrophils % 87.5 H Seg Neuts % (Manual) Lymphocytes % (Manual) Seg Neutrophils # 8.2 H Seg Neutrophils # Man Lymphocytes # (Manual) PT 18.1 H INR 1.36 H APTT 23.1 L D-Dimer ABG pH 7.215 L POC ABG pCO2 POC ABG pO2 ABG pO2 ABG HCO3 28.4 H ABG O2 Saturation ABG Base Excess ABG Hemoglobin 13.5 L ABG Oxyhemoglobin ABG Sodium ABG Potassium ABG Chloride ABG Glucose Oxyhemoglobin 92.6 L Carboxyhemoglobin Sodium Potassium Chloride Carbon Dioxide BUN Creatinine Glucose POC Glucose Calcium Magnesium Total Bilirubin AST ALT Ammonia Total Creatine Kinase Troponin T C-Reactive Protein NT-Pro-B Natriuret Pep Albumin Triglycerides HDL Cholesterol Lipase Arterial Blood Glucose Urine WBC (Auto) Urine Creatinine Urine Total Protein Salicylates Acetaminophen 05/23/21 05/23/21 05/23/21 15:09 15:09 15:09 WBC RBC Hgb Hct MCV MCHC RDW Plt Count Lymph % (Auto) [place] % (Auto) Lymph # (Auto) [place] # (Auto) Seg Neutrophils % Seg Neuts % (Manual) Lymphocytes % (Manual) Seg Neutrophils # Seg Neutrophils # Man Lymphocytes # (Manual) PT INR APTT D-Dimer ABG pH POC ABG pCO2 POC ABG pO2 ABG pO2 ABG HCO3 ABG O2 Saturation ABG Base Excess ABG Hemoglobin ABG Oxyhemoglobin ABG Sodium ABG Potassium ABG Chloride ABG Glucose Oxyhemoglobin Carboxyhemoglobin Sodium Potassium 5.2 H Chloride Carbon Dioxide BUN 40 H Creatinine 3.2 H Glucose 133 H POC Glucose Calcium Magnesium Total Bilirubin AST 1094 H ALT 1089 H Ammonia 75.0 H Total Creatine Kinase Troponin T 0.038 H C-Reactive Protein NT-Pro-B Natriuret Pep Albumin 3.0 L Triglycerides HDL Cholesterol 29 L Lipase Arterial Blood Glucose Urine WBC (Auto) Urine Creatinine Urine Total Protein Salicylates < 0.3 L Acetaminophen 05/23/21 05/23/21 05/23/21 15: 15:09 15:09 WBC RBC Hgb Hct MCV MCHC RDW Plt Count Lymph % (Auto) [place] % (Auto) Lymph # (Auto) [place] # (Auto) Seg Neutrophils % Seg Neuts % (Manual) Lymphocytes % (Manual) Seg Neutrophils # Seg Neutrophils # Man Lymphocytes # (Manual) PT INR APTT D-Dimer 4444.85 H ABG pH POC ABG pCO2 POC ABG pO2 ABG pO2 ABG HCO3 ABG O2 Saturation ABG Base Excess ABG Hemoglobin ABG Oxyhemoglobin ABG Sodium ABG Potassium ABG Chloride ABG Glucose Oxyhemoglobin Carboxyhemoglobin Sodium Potassium Chloride Carbon Dioxide BUN Creatinine Glucose POC Glucose Calcium Magnesium Total Bilirubin AST ALT Ammonia Total Creatine Kinase 48 L Troponin T C-Reactive Protein NT-Pro-B Natriuret Pep 80079 H Albumin Triglycerides HDL Cholesterol Lipase Arterial Blood Glucose Urine WBC (Auto) Urine Creatinine Urine Total Protein Salicylates Acetaminophen 5.0 L 05/23/21 05/23/21 05/23/21 19:10 20:48 Unknown WBC RBC Hgb Hct MCV MCHC RDW Plt Count Lymph % (Auto) [place] % (Auto) Lymph # (Auto) [place] # (Auto) Seg Neutrophils % Seg Neuts % (Manual) Lymphocytes % (Manual) Seg Neutrophils # Seg Neutrophils # Man Lymphocytes # (Manual) PT INR APTT D-Dimer ABG pH 7.332 L POC ABG pCO2 POC ABG pO2 ABG pO2 74.0 L ABG HCO3 ABG O2 Saturation 94.4 L ABG Base Excess ABG Hemoglobin 12.5 L ABG Oxyhemoglobin ABG Sodium ABG Potassium ABG Chloride ABG Glucose Oxyhemoglobin 92.3 L Carboxyhemoglobin Sodium Potassium Chloride Carbon Dioxide BUN Creatinine Glucose POC Glucose Calcium Magnesium Total Bilirubin AST ALT Ammonia Total Creatine Kinase Troponin T C-Reactive Protein 10.00 H NT-Pro-B Natriuret Pep Albumin Triglycerides HDL Cholesterol Lipase Arterial Blood Glucose Urine WBC (Auto) 34.0 H Urine Creatinine Urine Total Protein Salicylates Acetaminophen 05/24/21 05/24/21 05/24/21 04:55 04:55 09:15 WBC RBC Hgb Hct MCV 95 H MCHC 31 L RDW 19.4 H Plt Count Lymph % (Auto) [place] % (Auto) Lymph # (Auto) [place] # (Auto) Seg Neutrophils % Seg Neuts % (Manual) 97.0 H Lymphocytes % (Manual) 3.0 L Seg Neutrophils # Seg Neutrophils # Man 8.4 H Lymphocytes # (Manual) 0.3 L PT INR APTT D-Dimer ABG pH POC ABG pCO2 POC ABG pO2 ABG pO2 90.6 H ABG HCO3 ABG O2 Saturation ABG Base Excess -3.7 L ABG Hemoglobin 13.5 L ABG Oxyhemoglobin ABG Sodium ABG Potassium ABG Chloride ABG Glucose Oxyhemoglobin Carboxyhemoglobin Sodium Potassium 5.5 H Chloride Carbon Dioxide 20 L BUN 39 H Creatinine 2.2 H Glucose 155 H POC Glucose Calcium 8.3 L Magnesium Total Bilirubin AST 571 H ALT 951 H Ammonia Total Creatine Kinase Troponin T C-Reactive Protein NT-Pro-B Natriuret Pep Albumin 3.2 L Triglycerides HDL Cholesterol Lipase Arterial Blood Glucose Urine WBC (Auto) Urine Creatinine Urine Total Protein Salicylates Acetaminophen 05/25/21 05/25/21 05/25/21 04:20 14:37 14:37 WBC RBC Hgb Hct MCV 96 H MCHC 30 L RDW 20.7 H Plt Count Lymph % (Auto) [place] % (Auto) Lymph # (Auto) [place] # (Auto) Seg Neutrophils % Seg Neuts % (Manual) Lymphocytes % (Manual) Seg Neutrophils # Seg Neutrophils # Man Lymphocytes # (Manual) PT INR APTT D-Dimer ABG pH 7.222 L POC ABG pCO2 57.8 H POC ABG pO2 67.3 L ABG pO2 ABG HCO3 ABG O2 Saturation ABG Base Excess ABG Hemoglobin ABG Oxyhemoglobin 89.1 L ABG Sodium ABG Potassium 5.1 H ABG Chloride ABG Glucose 182 H Oxyhemoglobin Carboxyhemoglobin Sodium Potassium 5.3 H Chloride Carbon Dioxide BUN 47 H Creatinine 2.0 H Glucose 154 H POC Glucose Calcium Magnesium Total Bilirubin AST 93 H ALT 590 H Ammonia Total Creatine Kinase Troponin T C-Reactive Protein NT-Pro-B Natriuret Pep Albumin 3.6 L Triglycerides HDL Cholesterol Lipase Arterial Blood Glucose 182 H Urine WBC (Auto) Urine Creatinine Urine Total Protein Salicylates Acetaminophen 05/25/21 05/25/21 05/26/21 21:50 23:30 05:31 WBC RBC Hgb Hct MCV MCHC RDW Plt Count Lymph % (Auto) [place] % (Auto) Lymph # (Auto) [place] # (Auto) Seg Neutrophils % Seg Neuts % (Manual) Lymphocytes % (Manual) Seg Neutrophils # Seg Neutrophils # Man Lymphocytes # (Manual) PT INR APTT D-Dimer ABG pH 7.328 L POC ABG pCO2 POC ABG pO2 ABG pO2 63.3 L ABG HCO3 ABG O2 Saturation 92.1 L ABG Base Excess -2.4 L ABG Hemoglobin 11.3 L ABG Oxyhemoglobin ABG Sodium ABG Potassium ABG Chloride ABG Glucose Oxyhemoglobin 90.3 L Carboxyhemoglobin Sodium Potassium Chloride Carbon Dioxide BUN Creatinine Glucose POC Glucose 131 H 123 H Calcium Magnesium Total Bilirubin AST ALT Ammonia Total Creatine Kinase Troponin T C-Reactive Protein NT-Pro-B Natriuret Pep Albumin Triglycerides HDL Cholesterol Lipase Arterial Blood Glucose Urine WBC (Auto) Urine Creatinine Urine Total Protein Salicylates Acetaminophen 05/26/21 05/26/21 05/26/21 09:02 10:57 12:37 WBC RBC Hgb Hct MCV MCHC RDW Plt Count Lymph % (Auto) [place] % (Auto) Lymph # (Auto) [place] # (Auto) Seg Neutrophils % Seg Neuts % (Manual) Lymphocytes % (Manual) Seg Neutrophils # Seg Neutrophils # Man Lymphocytes # (Manual) PT INR APTT D-Dimer ABG pH 7.346 L POC ABG pCO2 POC ABG pO2 ABG pO2 60.5 L ABG HCO3 ABG O2 Saturation 90.7 L ABG Base Excess ABG Hemoglobin 13.1 L ABG Oxyhemoglobin ABG Sodium ABG Potassium ABG Chloride ABG Glucose Oxyhemoglobin 88.9 L Carboxyhemoglobin Sodium Potassium Chloride Carbon Dioxide BUN Creatinine Glucose POC Glucose 127 H Calcium Magnesium Total Bilirubin AST ALT Ammonia Total Creatine Kinase Troponin T C-Reactive Protein NT-Pro-B Natriuret Pep Albumin Triglycerides HDL Cholesterol Lipase Arterial Blood Glucose Urine WBC (Auto) Urine Creatinine 79.3 H Urine Total Protein 80 H Salicylates Acetaminophen 05/26/21 05/26/21 05/26/21 17:30 21:00 Unknown WBC 4.2 L RBC Hgb 11.7 L Hct MCV MCHC 31 L RDW 20.3 H Plt Count 132 L Lymph % (Auto) [place] % (Auto) Lymph # (Auto) [place] # (Auto) Seg Neutrophils % Seg Neuts % (Manual) Lymphocytes % (Manual) Seg Neutrophils # Seg Neutrophils # Man Lymphocytes # (Manual) PT INR APTT D-Dimer ABG pH POC ABG pCO2 POC ABG pO2 56.7 L ABG pO2 ABG HCO3 ABG O2 Saturation ABG Base Excess ABG Hemoglobin ABG Oxyhemoglobin 88.8 L ABG Sodium ABG Potassium 4.7 H ABG Chloride ABG Glucose 152 H Oxyhemoglobin Carboxyhemoglobin Sodium Potassium Chloride Carbon Dioxide BUN Creatinine Glucose POC Glucose 141 H Calcium Magnesium Total Bilirubin AST ALT Ammonia Total Creatine Kinase Troponin T C-Reactive Protein NT-Pro-B Natriuret Pep Albumin Triglycerides HDL Cholesterol Lipase Arterial Blood Glucose 152 H Urine WBC (Auto) Urine Creatinine Urine Total Protein Salicylates Acetaminophen 05/26/21 05/26/21 05/27/21 Unknown Unknown 08:00 WBC 4.2 L RBC Hgb Hct MCV MCHC RDW 21.2 H Plt Count 126 L Lymph % (Auto) [place] % (Auto) Lymph # (Auto) [place] # (Auto) Seg Neutrophils % Seg Neuts % (Manual) Lymphocytes % (Manual) Seg Neutrophils # Seg Neutrophils # Man Lymphocytes # (Manual) PT INR APTT D-Dimer ABG pH POC ABG pCO2 POC ABG pO2 ABG pO2 ABG HCO3 ABG O2 Saturation ABG Base Excess ABG Hemoglobin ABG Oxyhemoglobin ABG Sodium ABG Potassium ABG Chloride ABG Glucose Oxyhemoglobin Carboxyhemoglobin Sodium Potassium 5.2 H Chloride Carbon Dioxide BUN 47 H Creatinine 2.0 H Glucose 136 H POC Glucose Calcium Magnesium Total Bilirubin AST 64 H ALT 448 H Ammonia Total Creatine Kinase Troponin T C-Reactive Protein NT-Pro-B Natriuret Pep Albumin 3.4 L Triglycerides HDL Cholesterol Lipase Arterial Blood Glucose Urine WBC (Auto) Urine Creatinine 128.6 H Urine Total Protein Salicylates Acetaminophen 05/27/21 05/27/21 05/27/21 08:00 10:15 11:48 WBC RBC Hgb Hct MCV MCHC RDW Plt Count Lymph % (Auto) [place] % (Auto) Lymph # (Auto) [place] # (Auto) Seg Neutrophils % Seg Neuts % (Manual) Lymphocytes % (Manual) Seg Neutrophils # Seg Neutrophils # Man Lymphocytes # (Manual) PT INR APTT D-Dimer ABG pH 7.300 L POC ABG pCO2 POC ABG pO2 ABG pO2 42.1 L ABG HCO3 ABG O2 Saturation 72.8 L ABG Base Excess ABG Hemoglobin 12.7 L ABG Oxyhemoglobin ABG Sodium ABG Potassium ABG Chloride ABG Glucose Oxyhemoglobin 71.4 L Carboxyhemoglobin Sodium Potassium Chloride Carbon Dioxide BUN 52 H Creatinine 1.8 H Glucose 171 H POC Glucose 139 H Calcium 8.3 L Magnesium Total Bilirubin AST ALT Ammonia Total Creatine Kinase Troponin T C-Reactive Protein NT-Pro-B Natriuret Pep Albumin Triglycerides HDL Cholesterol Lipase Arterial Blood Glucose Urine WBC (Auto) Urine Creatinine Urine Total Protein Salicylates Acetaminophen 05/27/21 05/28/21 05/28/21 17:13 05:30 11:37 WBC RBC Hgb Hct MCV MCHC RDW Plt Count Lymph % (Auto) [place] % (Auto) Lymph # (Auto) [place] # (Auto) Seg Neutrophils % Seg Neuts % (Manual) Lymphocytes % (Manual) Seg Neutrophils # Seg Neutrophils # Man Lymphocytes # (Manual) PT INR APTT D-Dimer ABG pH POC ABG pCO2 POC ABG pO2 ABG pO2 ABG HCO3 ABG O2 Saturation ABG Base Excess ABG Hemoglobin ABG Oxyhemoglobin ABG Sodium ABG Potassium ABG Chloride ABG Glucose Oxyhemoglobin Carboxyhemoglobin Sodium Potassium Chloride Carbon Dioxide BUN 53 H Creatinine 1.6 H Glucose 118 H POC Glucose 145 H 115 H Calcium 8.0 L Magnesium 2.40 H Total Bilirubin AST ALT Ammonia Total Creatine Kinase Troponin T C-Reactive Protein NT-Pro-B Natriuret Pep Albumin Triglycerides HDL Cholesterol Lipase Arterial Blood Glucose Urine WBC (Auto) Urine Creatinine Urine Total Protein Salicylates Acetaminophen 05/28/21 05/28/21 05/29/21 13:32 Unknown 09:43 WBC RBC Hgb 11.7 L Hct MCV MCHC 31 L RDW 21.3 H Plt Count 121 L Lymph % (Auto) [place] % (Auto) Lymph # (Auto) [place] # (Auto) Seg Neutrophils % Seg Neuts % (Manual) Lymphocytes % (Manual) Seg Neutrophils # Seg Neutrophils # Man Lymphocytes # (Manual) PT INR APTT D-Dimer ABG pH 7.339 L POC ABG pCO2 POC ABG pO2 ABG pO2 53.7 L 60.9 L ABG HCO3 ABG O2 Saturation 86.5 L 90.7 L ABG Base Excess ABG Hemoglobin 12.3 L 12.0 L ABG Oxyhemoglobin ABG Sodium ABG Potassium ABG Chloride ABG Glucose Oxyhemoglobin 84.6 L 88.9 L Carboxyhemoglobin Sodium Potassium Chloride Carbon Dioxide BUN Creatinine Glucose POC Glucose Calcium Magnesium Total Bilirubin AST ALT Ammonia Total Creatine Kinase Troponin T C-Reactive Protein NT-Pro-B Natriuret Pep Albumin Triglycerides HDL Cholesterol Lipase Arterial Blood Glucose Urine WBC (Auto) Urine Creatinine Urine Total Protein Salicylates Acetaminophen 05/29/21 05/29/21 05/29/21 13:40 13:40 13:40 WBC RBC Hgb Hct MCV MCHC RDW 20.9 H Plt Count 103 L Lymph % (Auto) [place] % (Auto) Lymph # (Auto) [place] # (Auto) Seg Neutrophils % Seg Neuts % (Manual) Lymphocytes % (Manual) Seg Neutrophils # Seg Neutrophils # Man Lymphocytes # (Manual) PT 15.3 H INR APTT D-Dimer ABG pH POC ABG pCO2 POC ABG pO2 ABG pO2 ABG HCO3 ABG O2 Saturation ABG Base Excess ABG Hemoglobin ABG Oxyhemoglobin ABG Sodium ABG Potassium ABG Chloride ABG Glucose Oxyhemoglobin Carboxyhemoglobin Sodium Potassium Chloride Carbon Dioxide BUN Creatinine 1.7 H Glucose POC Glucose Calcium Magnesium Total Bilirubin AST ALT Ammonia Total Creatine Kinase Troponin T C-Reactive Protein NT-Pro-B Natriuret Pep Albumin Triglycerides HDL Cholesterol Lipase Arterial Blood Glucose Urine WBC (Auto) Urine Creatinine Urine Total Protein Salicylates Acetaminophen 05/30/21 05/30/21 05/30/21 04:42 04:42 07:47 WBC RBC Hgb 11.7 L Hct MCV 95 H MCHC RDW 20.8 H Plt Count 106 L Lymph % (Auto) [place] % (Auto) Lymph # (Auto) [place] # (Auto) Seg Neutrophils % Seg Neuts % (Manual) Lymphocytes % (Manual) Seg Neutrophils # Seg Neutrophils # Man Lymphocytes # (Manual) PT INR APTT D-Dimer ABG pH POC ABG pCO2 POC ABG pO2 ABG pO2 ABG HCO3 ABG O2 Saturation ABG Base Excess ABG Hemoglobin ABG Oxyhemoglobin ABG Sodium ABG Potassium ABG Chloride ABG Glucose Oxyhemoglobin Carboxyhemoglobin Sodium 135 L Potassium Chloride Carbon Dioxide BUN 63 H 63 H Creatinine 1.6 H 1.6 H Glucose POC Glucose Calcium 8.2 L Magnesium Total Bilirubin AST ALT Ammonia Total Creatine Kinase Troponin T C-Reactive Protein NT-Pro-B Natriuret Pep Albumin Triglycerides HDL Cholesterol Lipase Arterial Blood Glucose Urine WBC (Auto) Urine Creatinine Urine Total Protein Salicylates Acetaminophen 05/30/21 05/31/21 05/31/21 09:22 05:16 05:16 WBC RBC Hgb 11.1 L Hct MCV MCHC 31 L RDW 20.8 H Plt Count 116 L Lymph % (Auto) [place] % (Auto) Lymph # (Auto) [place] # (Auto) Seg Neutrophils % Seg Neuts % (Manual) Lymphocytes % (Manual) Seg Neutrophils # Seg Neutrophils # Man Lymphocytes # (Manual) PT INR APTT D-Dimer ABG pH 7.323 L POC ABG pCO2 POC ABG pO2 ABG pO2 107.0 H ABG HCO3 ABG O2 Saturation ABG Base Excess ABG Hemoglobin 12.4 L ABG Oxyhemoglobin ABG Sodium ABG Potassium ABG Chloride ABG Glucose Oxyhemoglobin Carboxyhemoglobin Sodium Potassium Chloride Carbon Dioxide BUN 62 H Creatinine 1.9 H Glucose 103 H POC Glucose Calcium Magnesium Total Bilirubin AST ALT Ammonia Total Creatine Kinase Troponin T C-Reactive Protein NT-Pro-B Natriuret Pep Albumin Triglycerides HDL Cholesterol Lipase Arterial Blood Glucose Urine WBC (Auto) Urine Creatinine Urine Total Protein Salicylates Acetaminophen 05/31/21 05/31/21 05/31/21 05:17 16:49 Unknown WBC RBC Hgb Hct MCV MCHC RDW Plt Count Lymph % (Auto) [place] % (Auto) Lymph # (Auto) [place] # (Auto) Seg Neutrophils % Seg Neuts % (Manual) Lymphocytes % (Manual) Seg Neutrophils # Seg Neutrophils # Man Lymphocytes # (Manual) PT INR APTT D-Dimer ABG pH POC ABG pCO2 48.4 H POC ABG pO2 63.0 L ABG pO2 ABG HCO3 ABG O2 Saturation ABG Base Excess ABG Hemoglobin 11.9 L ABG Oxyhemoglobin 91.4 L ABG Sodium ABG Potassium 4.6 H ABG Chloride ABG Glucose 110 H Oxyhemoglobin Carboxyhemoglobin Sodium Potassium Chloride Carbon Dioxide BUN Creatinine Glucose POC Glucose 109 H 107 H Calcium Magnesium Total Bilirubin AST ALT Ammonia Total Creatine Kinase Troponin T C-Reactive Protein NT-Pro-B Natriuret Pep Albumin Triglycerides HDL Cholesterol Lipase Arterial Blood Glucose 110 H Urine WBC (Auto) Urine Creatinine Urine Total Protein Salicylates Acetaminophen 06/01/21 06/01/21 06/01/21 03:06 07:00 07:00 WBC RBC Hgb 11.2 L Hct MCV 96 H MCHC 31 L RDW 20.6 H Plt Count Lymph % (Auto) [place] % (Auto) Lymph # (Auto) [place] # (Auto) Seg Neutrophils % Seg Neuts % (Manual) Lymphocytes % (Manual) Seg Neutrophils # Seg Neutrophils # Man Lymphocytes # (Manual) PT INR APTT D-Dimer ABG pH POC ABG pCO2 POC ABG pO2 55.0 L ABG pO2 ABG HCO3 ABG O2 Saturation ABG Base Excess ABG Hemoglobin 10.9 L ABG Oxyhemoglobin 87.5 L ABG Sodium 127.4 L ABG Potassium 4.6 H ABG Chloride 108.0 H ABG Glucose 108 H Oxyhemoglobin Carboxyhemoglobin Sodium Potassium Chloride Carbon Dioxide BUN 59 H Creatinine 1.6 H Glucose 104 H POC Glucose Calcium Magnesium Total Bilirubin AST ALT Ammonia Total Creatine Kinase Troponin T C-Reactive Protein NT-Pro-B Natriuret Pep Albumin Triglycerides HDL Cholesterol Lipase Arterial Blood Glucose 108 H Urine WBC (Auto) Urine Creatinine Urine Total Protein Salicylates Acetaminophen 06/01/21 06/01/21 06/02/21 17:09 23:42 04:23 WBC RBC 3.48 L Hgb 10.1 L Hct 33.1 L MCV 95 H MCHC 31 L RDW 19.9 H Plt Count Lymph % (Auto) [place] % (Auto) Lymph # (Auto) [place] # (Auto) Seg Neutrophils % Seg Neuts % (Manual) Lymphocytes % (Manual) Seg Neutrophils # Seg Neutrophils # Man Lymphocytes # (Manual) PT INR APTT D-Dimer ABG pH POC ABG pCO2 POC ABG pO2 ABG pO2 ABG HCO3 ABG O2 Saturation ABG Base Excess ABG Hemoglobin ABG Oxyhemoglobin ABG Sodium ABG Potassium ABG Chloride ABG Glucose Oxyhemoglobin Carboxyhemoglobin Sodium Potassium Chloride Carbon Dioxide BUN Creatinine Glucose POC Glucose 106 H 109 H Calcium Magnesium Total Bilirubin AST ALT Ammonia Total Creatine Kinase Troponin T C-Reactive Protein NT-Pro-B Natriuret Pep Albumin Triglycerides HDL Cholesterol Lipase Arterial Blood Glucose Urine WBC (Auto) Urine Creatinine Urine Total Protein Salicylates Acetaminophen 06/02/21 06/02/21 06/02/21 04:23 05:38 05:40 WBC RBC Hgb Hct MCV MCHC RDW Plt Count Lymph % (Auto) [place] % (Auto) Lymph # (Auto) [place] # (Auto) Seg Neutrophils % Seg Neuts % (Manual) Lymphocytes % (Manual) Seg Neutrophils # Seg Neutrophils # Man Lymphocytes # (Manual) PT INR APTT D-Dimer ABG pH POC ABG pCO2 POC ABG pO2 ABG pO2 ABG HCO3 ABG O2 Saturation ABG Base Excess ABG Hemoglobin ABG Oxyhemoglobin ABG Sodium ABG Potassium ABG Chloride ABG Glucose Oxyhemoglobin Carboxyhemoglobin Sodium Potassium Chloride Carbon Dioxide BUN 61 H Creatinine 1.7 H Glucose 119 H POC Glucose 49 L 107 H Calcium Magnesium Total Bilirubin AST ALT Ammonia Total Creatine Kinase Troponin T C-Reactive Protein NT-Pro-B Natriuret Pep Albumin Triglycerides HDL Cholesterol Lipase Arterial Blood Glucose Urine WBC (Auto) Urine Creatinine Urine Total Protein Salicylates Acetaminophen 06/02/21 06/02/21 06/03/21 10:01 11:26 04:10 WBC RBC Hgb Hct MCV MCHC RDW Plt Count Lymph % (Auto) [place] % (Auto) Lymph # (Auto) [place] # (Auto) Seg Neutrophils % Seg Neuts % (Manual) Lymphocytes % (Manual) Seg Neutrophils # Seg Neutrophils # Man Lymphocytes # (Manual) PT INR APTT D-Dimer ABG pH 7.315 L POC ABG pCO2 POC ABG pO2 62.1 L ABG pO2 ABG HCO3 ABG O2 Saturation ABG Base Excess ABG Hemoglobin 10.8 L ABG Oxyhemoglobin 91.0 L ABG Sodium 133.5 L ABG Potassium 5.0 H ABG Chloride 109.0 H ABG Glucose 124 H Oxyhemoglobin Carboxyhemoglobin Sodium Potassium Chloride Carbon Dioxide BUN Creatinine Glucose POC Glucose 117 H Calcium Magnesium Total Bilirubin AST ALT Ammonia Total Creatine Kinase Troponin T C-Reactive Protein NT-Pro-B Natriuret Pep Albumin Triglycerides 830 H HDL Cholesterol Lipase Arterial Blood Glucose 124 H Urine WBC (Auto) Urine Creatinine Urine Total Protein Salicylates Acetaminophen 06/03/21 06/03/21 06/03/21 04:10 04:10 05:36 WBC RBC 3.25 L Hgb 9.9 L Hct 31.8 L MCV 98 H MCHC 31 L RDW 19.9 H Plt Count Lymph % (Auto) 6.2 L [place] % (Auto) 13.1 H Lymph # (Auto) 0.5 L [place] # (Auto) 1.1 H Seg Neutrophils % Seg Neuts % (Manual) Lymphocytes % (Manual) Seg Neutrophils # Seg Neutrophils # Man Lymphocytes # (Manual) PT INR APTT D-Dimer ABG pH POC ABG pCO2 POC ABG pO2 ABG pO2 ABG HCO3 ABG O2 Saturation ABG Base Excess ABG Hemoglobin ABG Oxyhemoglobin ABG Sodium ABG Potassium ABG Chloride ABG Glucose Oxyhemoglobin Carboxyhemoglobin Sodium 136 L Potassium Chloride Carbon Dioxide 20 L BUN 57 H Creatinine 1.7 H Glucose 108 H POC Glucose 114 H Calcium 8.2 L Magnesium Total Bilirubin AST ALT Ammonia Total Creatine Kinase Troponin T C-Reactive Protein NT-Pro-B Natriuret Pep Albumin Triglycerides HDL Cholesterol Lipase Arterial Blood Glucose Urine WBC (Auto) Urine Creatinine Urine Total Protein Salicylates Acetaminophen 06/03/21 06/03/21 06/03/21 06:55 13:06 23:30 WBC RBC Hgb Hct MCV MCHC RDW Plt Count Lymph % (Auto) [place] % (Auto) Lymph # (Auto) [place] # (Auto) Seg Neutrophils % Seg Neuts % (Manual) Lymphocytes % (Manual) Seg Neutrophils # Seg Neutrophils # Man Lymphocytes # (Manual) PT INR APTT D-Dimer ABG pH 7.298 L POC ABG pCO2 POC ABG pO2 67.4 L ABG pO2 ABG HCO3 ABG O2 Saturation ABG Base Excess ABG Hemoglobin 11.7 L ABG Oxyhemoglobin 91.2 L ABG Sodium 134.3 L ABG Potassium 4.7 H ABG Chloride 108.0 H ABG Glucose 110 H Oxyhemoglobin Carboxyhemoglobin Sodium Potassium Chloride Carbon Dioxide BUN Creatinine Glucose POC Glucose 106 H 106 H Calcium Magnesium Total Bilirubin AST ALT Ammonia Total Creatine Kinase Troponin T C-Reactive Protein NT-Pro-B Natriuret Pep Albumin Triglycerides HDL Cholesterol Lipase Arterial Blood Glucose 110 H Urine WBC (Auto) Urine Creatinine Urine Total Protein Salicylates Acetaminophen 06/04/21 06/04/21 06/04/21 05:00 05:15 05:15 WBC RBC 3.27 L Hgb 9.7 L Hct 31.6 L MCV 97 H MCHC 31 L RDW 19.3 H Plt Count Lymph % (Auto) [place] % (Auto) Lymph # (Auto) [place] # (Auto) Seg Neutrophils % Seg Neuts % (Manual) Lymphocytes % (Manual) Seg Neutrophils # Seg Neutrophils # Man Lymphocytes # (Manual) PT INR APTT D-Dimer ABG pH 7.293 L POC ABG pCO2 POC ABG pO2 ABG pO2 69.1 L ABG HCO3 ABG O2 Saturation 92.3 L ABG Base Excess -4.0 L ABG Hemoglobin 8.9 L ABG Oxyhemoglobin ABG Sodium ABG Potassium ABG Chloride ABG Glucose Oxyhemoglobin 90.3 L Carboxyhemoglobin Sodium Potassium Chloride Carbon Dioxide 21 L BUN 60 H Creatinine 1.7 H Glucose 106 H POC Glucose Calcium Magnesium Total Bilirubin AST ALT Ammonia Total Creatine Kinase Troponin T C-Reactive Protein NT-Pro-B Natriuret Pep Albumin 2.7 L Triglycerides HDL Cholesterol Lipase Arterial Blood Glucose Urine WBC (Auto) Urine Creatinine Urine Total Protein Salicylates Acetaminophen 06/04/21 06/04/21 06/04/21 05:37 13:39 13:54 WBC RBC 3.07 L Hgb 8.9 L Hct 29.5 L MCV 96 H MCHC 30 L RDW 19.4 H Plt Count Lymph % (Auto) [place] % (Auto) Lymph # (Auto) [place] # (Auto) Seg Neutrophils % Seg Neuts % (Manual) Lymphocytes % (Manual) Seg Neutrophils # Seg Neutrophils # Man Lymphocytes # (Manual) PT INR APTT D-Dimer ABG pH POC ABG pCO2 POC ABG pO2 ABG pO2 ABG HCO3 ABG O2 Saturation ABG Base Excess ABG Hemoglobin ABG Oxyhemoglobin ABG Sodium ABG Potassium ABG Chloride ABG Glucose Oxyhemoglobin Carboxyhemoglobin Sodium Potassium Chloride Carbon Dioxide BUN Creatinine Glucose POC Glucose 115 H Calcium Magnesium Total Bilirubin AST ALT Ammonia Total Creatine Kinase Troponin T C-Reactive Protein NT-Pro-B Natriuret Pep Albumin Triglycerides HDL Cholesterol Lipase Arterial Blood Glucose Urine WBC (Auto) 17.0 H Urine Creatinine Urine Total Protein Salicylates Acetaminophen 06/04/21 06/04/21 06/05/21 13:56 23:17 04:30 WBC RBC 3.07 L Hgb 9.0 L Hct 29.6 L MCV 97 H MCHC 30 L RDW 19.1 H Plt Count Lymph % (Auto) [place] % (Auto) Lymph # (Auto) [place] # (Auto) Seg Neutrophils % Seg Neuts % (Manual) Lymphocytes % (Manual) Seg Neutrophils # Seg Neutrophils # Man Lymphocytes # (Manual) PT INR APTT D-Dimer ABG pH POC ABG pCO2 POC ABG pO2 ABG pO2 ABG HCO3 ABG O2 Saturation ABG Base Excess ABG Hemoglobin ABG Oxyhemoglobin ABG Sodium ABG Potassium ABG Chloride ABG Glucose Oxyhemoglobin Carboxyhemoglobin Sodium Potassium Chloride 108.8 H Carbon Dioxide 21 L BUN 58 H Creatinine 1.8 H Glucose 105 H POC Glucose 108 H Calcium Magnesium Total Bilirubin AST ALT Ammonia Total Creatine Kinase Troponin T C-Reactive Protein NT-Pro-B Natriuret Pep Albumin Triglycerides HDL Cholesterol Lipase Arterial Blood Glucose Urine WBC (Auto) Urine Creatinine Urine Total Protein Salicylates Acetaminophen 06/05/21 06/05/21 06/05/21 04:30 05:41 09:07 WBC RBC Hgb Hct MCV MCHC RDW Plt Count Lymph % (Auto) [place] % (Auto) Lymph # (Auto) [place] # (Auto) Seg Neutrophils % Seg Neuts % (Manual) Lymphocytes % (Manual) Seg Neutrophils # Seg Neutrophils # Man Lymphocytes # (Manual) PT INR APTT D-Dimer ABG pH 7.287 L POC ABG pCO2 POC ABG pO2 ABG pO2 79.5 L ABG HCO3 ABG O2 Saturation ABG Base Excess -4.2 L ABG Hemoglobin 8.6 L ABG Oxyhemoglobin ABG Sodium ABG Potassium ABG Chloride ABG Glucose Oxyhemoglobin 94.9 L Carboxyhemoglobin Sodium Potassium Chloride 108.5 H Carbon Dioxide 21 L BUN 60 H Creatinine 1.7 H Glucose 110 H POC Glucose 111 H Calcium Magnesium Total Bilirubin AST ALT Ammonia Total Creatine Kinase Troponin T C-Reactive Protein NT-Pro-B Natriuret Pep Albumin Triglycerides HDL Cholesterol Lipase Arterial Blood Glucose Urine WBC (Auto) Urine Creatinine Urine Total Protein Salicylates Acetaminophen 06/05/21 06/05/21 06/05/21 11:39 15:57 23:26 WBC RBC Hgb Hct MCV MCHC RDW Plt Count Lymph % (Auto) [place] % (Auto) Lymph # (Auto) [place] # (Auto) Seg Neutrophils % Seg Neuts % (Manual) Lymphocytes % (Manual) Seg Neutrophils # Seg Neutrophils # Man Lymphocytes # (Manual) PT INR APTT D-Dimer ABG pH POC ABG pCO2 POC ABG pO2 ABG pO2 ABG HCO3 ABG O2 Saturation ABG Base Excess ABG Hemoglobin ABG Oxyhemoglobin ABG Sodium ABG Potassium ABG Chloride ABG Glucose Oxyhemoglobin Carboxyhemoglobin Sodium Potassium Chloride Carbon Dioxide BUN Creatinine Glucose POC Glucose 111 H 109 H 127 H Calcium Magnesium Total Bilirubin AST ALT Ammonia Total Creatine Kinase Troponin T C-Reactive Protein NT-Pro-B Natriuret Pep Albumin Triglycerides HDL Cholesterol Lipase Arterial Blood Glucose Urine WBC (Auto) Urine Creatinine Urine Total Protein Salicylates Acetaminophen 06/06/21 06/06/21 06/06/21 03:19 04:18 11:35 WBC RBC Hgb Hct MCV MCHC RDW Plt Count Lymph % (Auto) [place] % (Auto) Lymph # (Auto) [place] # (Auto) Seg Neutrophils % Seg Neuts % (Manual) Lymphocytes % (Manual) Seg Neutrophils # Seg Neutrophils # Man Lymphocytes # (Manual) PT INR APTT D-Dimer ABG pH 7.262 L POC ABG pCO2 POC ABG pO2 76.6 L ABG pO2 ABG HCO3 ABG O2 Saturation ABG Base Excess ABG Hemoglobin 10.1 L ABG Oxyhemoglobin 93.9 L ABG Sodium ABG Potassium 5.1 H ABG Chloride 111.0 H ABG Glucose 122 H Oxyhemoglobin Carboxyhemoglobin 0.4 L Sodium Potassium Chloride Carbon Dioxide BUN Creatinine Glucose POC Glucose 108 H 139 H Calcium Magnesium Total Bilirubin AST ALT Ammonia Total Creatine Kinase Troponin T C-Reactive Protein NT-Pro-B Natriuret Pep Albumin Triglycerides HDL Cholesterol Lipase Arterial Blood Glucose 122 H Urine WBC (Auto) Urine Creatinine Urine Total Protein Salicylates Acetaminophen 06/06/21 06/06/21 06/06/21 13:30 17:27 Unknown WBC RBC 3.18 L Hgb 9.5 L Hct 30.8 L MCV 97 H MCHC 31 L RDW 18.9 H Plt Count Lymph % (Auto) [place] % (Auto) Lymph # (Auto) [place] # (Auto) Seg Neutrophils % Seg Neuts % (Manual) Lymphocytes % (Manual) Seg Neutrophils # Seg Neutrophils # Man Lymphocytes # (Manual) PT INR APTT D-Dimer ABG pH POC ABG pCO2 POC ABG pO2 ABG pO2 ABG HCO3 ABG O2 Saturation ABG Base Excess ABG Hemoglobin ABG Oxyhemoglobin ABG Sodium ABG Potassium ABG Chloride ABG Glucose Oxyhemoglobin Carboxyhemoglobin Sodium Potassium Chloride Carbon Dioxide BUN Creatinine Glucose POC Glucose 127 H Calcium Magnesium Total Bilirubin AST ALT Ammonia Total Creatine Kinase Troponin T C-Reactive Protein NT-Pro-B Natriuret Pep Albumin Triglycerides HDL Cholesterol Lipase Arterial Blood Glucose Urine WBC (Auto) Urine Creatinine 222.7 H Urine Total Protein Salicylates Acetaminophen 06/06/21 06/07/21 06/07/21 Unknown 04:33 07:02 WBC 12.4 H RBC 3.23 L Hgb 9.3 L Hct 31.1 L MCV 97 H MCHC 30 L RDW 18.6 H Plt Count Lymph % (Auto) [place] % (Auto) Lymph # (Auto) [place] # (Auto) Seg Neutrophils % Seg Neuts % (Manual) Lymphocytes % (Manual) Seg Neutrophils # Seg Neutrophils # Man Lymphocytes # (Manual) PT INR APTT D-Dimer ABG pH 7.154 L* POC ABG pCO2 POC ABG pO2 ABG pO2 97.5 H ABG HCO3 18.0 L ABG O2 Saturation ABG Base Excess -10.8 L ABG Hemoglobin 13.0 L ABG Oxyhemoglobin ABG Sodium ABG Potassium ABG Chloride ABG Glucose Oxyhemoglobin 94.3 L Carboxyhemoglobin Sodium Potassium 5.3 H Chloride Carbon Dioxide 17 L BUN 72 H Creatinine 2.5 H Glucose 140 H POC Glucose Calcium Magnesium Total Bilirubin AST ALT Ammonia Total Creatine Kinase Troponin T C-Reactive Protein NT-Pro-B Natriuret Pep Albumin Triglycerides HDL Cholesterol Lipase Arterial Blood Glucose Urine WBC (Auto) Urine Creatinine Urine Total Protein Salicylates Acetaminophen 06/07/21 06/07/21 06/07/21 07:02 09:48 12:20 WBC RBC Hgb Hct MCV MCHC RDW Plt Count Lymph % (Auto) [place] % (Auto) Lymph # (Auto) [place] # (Auto) Seg Neutrophils % Seg Neuts % (Manual) Lymphocytes % (Manual) Seg Neutrophils # Seg Neutrophils # Man Lymphocytes # (Manual) PT INR APTT D-Dimer ABG pH 7.128 L POC ABG pCO2 POC ABG pO2 73.8 L ABG pO2 ABG HCO3 ABG O2 Saturation ABG Base Excess ABG Hemoglobin 11.1 L ABG Oxyhemoglobin 91.1 L ABG Sodium ABG Potassium 5.8 H ABG Chloride 110.0 H ABG Glucose 109 H Oxyhemoglobin Carboxyhemoglobin 0.3 L Sodium Potassium 6.6 H* D 6.1 H* Chloride Carbon Dioxide 18 L 15 L BUN 84 H 85 H Creatinine 3.0 H 3.2 H Glucose 104 H 165 H POC Glucose Calcium Magnesium Total Bilirubin AST ALT Ammonia Total Creatine Kinase Troponin T C-Reactive Protein NT-Pro-B Natriuret Pep Albumin Triglycerides HDL Cholesterol Lipase Arterial Blood Glucose 109 H Urine WBC (Auto) Urine Creatinine Urine Total Protein Salicylates Acetaminophen 06/07/21 06/07/21 06/07/21 18:04 21:26 23:18 WBC RBC Hgb Hct MCV MCHC RDW Plt Count Lymph % (Auto) [place] % (Auto) Lymph # (Auto) [place] # (Auto) Seg Neutrophils % Seg Neuts % (Manual) Lymphocytes % (Manual) Seg Neutrophils # Seg Neutrophils # Man Lymphocytes # (Manual) PT INR APTT D-Dimer ABG pH 7.279 L POC ABG pCO2 POC ABG pO2 72.3 L ABG pO2 ABG HCO3 ABG O2 Saturation ABG Base Excess ABG Hemoglobin 11.1 L ABG Oxyhemoglobin 92.4 L ABG Sodium ABG Potassium 5.3 H ABG Chloride 109.0 H ABG Glucose 165 H Oxyhemoglobin Carboxyhemoglobin 0.2 L Sodium Potassium 5.8 H Chloride Carbon Dioxide 16 L BUN 84 H Creatinine 3.2 H Glucose 186 H POC Glucose 133 H Calcium Magnesium Total Bilirubin AST ALT Ammonia Total Creatine Kinase Troponin T C-Reactive Protein NT-Pro-B Natriuret Pep Albumin Triglycerides HDL Cholesterol Lipase Arterial Blood Glucose 165 H Urine WBC (Auto) Urine Creatinine Urine Total Protein Salicylates Acetaminophen 06/08/21 06/08/21 06/08/21 04:20 04:21 04:21 WBC 15.6 H RBC 3.20 L Hgb 9.4 L Hct 30.4 L MCV 95 H MCHC 31 L RDW 18.6 H Plt Count Lymph % (Auto) [place] % (Auto) Lymph # (Auto) [place] # (Auto) Seg Neutrophils % Seg Neuts % (Manual) Lymphocytes % (Manual) Seg Neutrophils # Seg Neutrophils # Man Lymphocytes # (Manual) PT INR APTT D-Dimer ABG pH POC ABG pCO2 POC ABG pO2 ABG pO2 ABG HCO3 ABG O2 Saturation ABG Base Excess ABG Hemoglobin ABG Oxyhemoglobin ABG Sodium ABG Potassium ABG Chloride ABG Glucose Oxyhemoglobin Carboxyhemoglobin Sodium Potassium Chloride 107.3 H Carbon Dioxide 19 L BUN 83 H Creatinine 3.5 H Glucose 139 H POC Glucose Calcium Magnesium Total Bilirubin 1.30 H AST 9433 H ALT 5071 H Ammonia Total Creatine Kinase Troponin T C-Reactive Protein NT-Pro-B Natriuret Pep Albumin 2.3 L Triglycerides HDL Cholesterol Lipase 86 H Arterial Blood Glucose Urine WBC (Auto) Urine Creatinine Urine Total Protein Salicylates Acetaminophen 06/08/21 06/08/21 06/08/21 05:19 11:14 12:19 WBC RBC Hgb Hct MCV MCHC RDW Plt Count Lymph % (Auto) [place] % (Auto) Lymph # (Auto) [place] # (Auto) Seg Neutrophils % Seg Neuts % (Manual) Lymphocytes % (Manual) Seg Neutrophils # Seg Neutrophils # Man Lymphocytes # (Manual) PT INR APTT D-Dimer ABG pH POC ABG pCO2 POC ABG pO2 ABG pO2 ABG HCO3 ABG O2 Saturation ABG Base Excess ABG Hemoglobin ABG Oxyhemoglobin ABG Sodium ABG Potassium ABG Chloride ABG Glucose Oxyhemoglobin Carboxyhemoglobin Sodium Potassium Chloride Carbon Dioxide BUN Creatinine Glucose POC Glucose 142 H 128 H 120 H Calcium Magnesium Total Bilirubin AST ALT Ammonia Total Creatine Kinase Troponin T C-Reactive Protein NT-Pro-B Natriuret Pep Albumin Triglycerides HDL Cholesterol Lipase Arterial Blood Glucose Urine WBC (Auto) Urine Creatinine Urine Total Protein Salicylates Acetaminophen 06/08/21 Unknown WBC RBC Hgb Hct MCV MCHC RDW Plt Count Lymph % (Auto) [place] % (Auto) Lymph # (Auto) [place] # (Auto) Seg Neutrophils % Seg Neuts % (Manual) Lymphocytes % (Manual) Seg Neutrophils # Seg Neutrophils # Man Lymphocytes # (Manual) PT INR APTT D-Dimer ABG pH 7.291 L POC ABG pCO2 POC ABG pO2 ABG pO2 78.8 L ABG HCO3 ABG O2 Saturation 94.8 L ABG Base Excess -5.1 L ABG Hemoglobin 9.9 L ABG Oxyhemoglobin ABG Sodium ABG Potassium ABG Chloride ABG Glucose Oxyhemoglobin 93.1 L Carboxyhemoglobin Sodium Potassium Chloride Carbon Dioxide BUN Creatinine Glucose POC Glucose Calcium Magnesium Total Bilirubin AST ALT Ammonia Total Creatine Kinase Troponin T C-Reactive Protein NT-Pro-B Natriuret Pep Albumin Triglycerides HDL Cholesterol Lipase Arterial Blood Glucose Urine WBC (Auto) Urine Creatinine Urine Total Protein Salicylates Acetaminophen Allied health notes reviewed: nursing
--- NOTE | 2021-06-08 17:41 | Progress Note ---
Assessment and Plan Assessment and plan: This is a 41-year-old male with acute hypoxic respiratory failure, elevated D- dimer, acute kidney injury, hyperkalemia and transaminitis Neuro: Acute metabolic encephalopathy -CT head and C-spine negative for acute process -TSH WNL -Patient is sedated with propofol and fentanyl -Goal RASS 0 to -1 -Seroquel -Avoid delirium -Reorientation as needed -Maintain sleep-wake cycle Cardio: Hypotension, possible CHF, h/o HTN -Cardiology consulted, appreciate recommendations -vasopressor support with Levophed, vasopressin, and phenylepi -Goal MAP>65 -echocardiogram showed mild to moderate dilated right heart chambers, LVEF 55% -Cardiology recommends conservative cardiac management -Patient currently not hypertensive -ProBNP 29149 -Diuretics discontinued d/t worsening renal function -Blood pressure monitoring via ibrahima -Trend CVP q shift -Chest US completed-> f/u results Respiratory: Acute possibly on chronic hypoxemic and hypercapnic respiratory failure, ARDS, h/o sleep apnea -CCM/pulmonary consulted, appreciate recommendations -Patient intubated on 05/23 for airway protection in the ED -Intubated with 7.50 ETT at 24 the lips -pm ABG noted -A.m. vent settings: Assist control tidal volume 500, rate 30, peep 15, 90% FiO2 -See RT notes for titration -Increase in FiO2 for desaturation -VAP bundle GI: Transaminitis, morbid obesity -NTR consult for tube feedings -Tube feedings Nepro at 45 mL's per hour -Free water flush 100 mL/4hr -24-hour +2937 -Presented with elevated LFTs which are now improving -Trend LFTs -Amylase 101, lipase 86 -Abd US pending : Acute renal failure secondary to vasomotor nephropathy, hyperkalemia -Nephrology consulted, appreciate recommendations -Garcia catheter for strict intake and output -Avoid nephrotoxic medications -Renally dose medications -Renal calculated at 0.41% indicating prerenal -Patient admitted with volume overload (proBNP 43302) -s/p IVF -Trend BMP -Nephrology recommends ALARM SIGNALER -family is still undecided on HD -vascath not placed ID: CAP, MRSA is tracheal aspirate -CT C-spine showed right upper lobe pneumonia -Antibiotic therapy with cefepime and azithromycin -Currently on Cefepime (06/07) and Linezolid started 06/05 -Monitor fever and WBC curve -05/23 UC, tracheal aspirate no growth to date -05/23 blood culture with coag negative staph in 1 of 2 bottles -ID consulted, appreciate recommendations Endo: NAD -Accu-Cheks every 6 while on tube feedings -No indication for SSI at this time -Avoid hypoglycemia -Target blood glucose while critically ill less than 180 Heme: Elevated D-dimer, h/o PE/DVT -VQ scan unable to be performed due to patient being intubated -CTA head unable to be performed due to renal function and size -restarted on home eliquis -SCDs to bilateral lower extremity while in bed -Echocardiogram shows no right heart strain -Trend CBC -Transfuse for hemoglobin less than 7 -Bilateral lower extremity Doppler ultrasound negative for DVT The high probability of a clinically significant, sudden or life threatening deterioration of the [renal/pulm] system(s) required my full and direct attention, intervention and personal management. The aggregate critical care time was [60] minutes. This time is in addition to time spent performing reported procedures but includes the following: [x] Data Review and interpretation [x] Patient assessment and monitoring of vital signs [x] Documentation [x] Medication orders and management Disposition Plan: icu Total Time Spent with Patient (Minutes): 60 History Interval history: This is a 41-year-old male who has HTN, REVA and morbid obesity who presents to the emergency department on 05/23 via EMS for severe respiratory distress. Upon EMS arrival patient was found to be altered and sedated from bed to floor and reports noncompliant with CPAP/BiPAP. Patient received bag valve mask ventilation via nasal trumpet with EMS on route. Work-up in the emergency department included a CXR which showed [place] [address], elevated troponin at 0.038, elevated D-dimer, acute kidney injury, hyperkalemia and transaminitis. Patient was intubated in the emergency department for for airway protection as he was reported to be obtunded and without a gag reflex. Patient did receive Narcan in the field by EMS however there was no reported affect. Hospital course to date: 05/24/2021: Patient intubated and sedated. VQ scan ordered secondary to elevated D-dimer. Cardiology consulted secondary to elevated troponin and elevated BNP. Echocardiogram ordered and pending. 05/25/2021: Patient still intubated. Responsive to commands. Hypotensive, norepinephrine increased to 15mcg. Unable to get V/Q scan due to body habitus. 05/26: Overnight patient experienced desaturation to the 80s and FiO2 was increased. This morning on ABG patient exhibited hypoxemia and FiO2 was unchanged. [facility] later increased PEEP and decrease FiO2. Nephrology was consulted due to no recovery in renal function noted. Urine lites were ordered. Hyperkalemia treated medically. 05/27: Patient remains sedated on fentanyl and propofol, [facility] will taper Solu- Medrol and repeat ABG in 1900. Patient received 40 mg of Lasix x1. Slight improvement to renal function noted 05/28: [facility] has started revatio for pulmonary hypertension, we will repeat Lasix today as patient had improvement in renal function. No acute events reported overnight. 05/29: 1900 ABG with improved hypoxia, good UOP noted from lasix. Repeat labs for am. no acute events reported overnight 05/30: FWF decreased. Garcia catheter replaced due to sediment. Family updated today at bedside. 05/31: noted to have persistent tachycardia, given fent bolus without improvement. EKG showed ST, passive leg raise by RN showed decrease in tachycardia therefore given LR. Noted increase in Cr today. MIVF for 2 liters started by [facility]. 06/01/21- Remains intubated, sedation was increased this am due to agitation, Levo was initiated due to hypotension. Patient remains on IVF, D/C once current bag is completed. D/w [facility] plan to gently wean vent setting for SPO2 goal above 92%. 06/02/21- Patient remains on the vent, on max support this am. Per RN patient desated this am after he was turned, SPO2 was sustaining in the low 80s. Patient is also spiking temp, TMAX 101 this am, WBC wnl. Orders placed for stat CXR, blood cultureX2, and procal. Will hold off on AbX for now. Will continue to t rend CBC, am labs ordered 06/03/21- Patient remains on the vent and sedated. High triglyceride level this am, propofol stopped and seroquel added BID. No fever overnight, wbcs remains stable, pending B.cult result. Continue to trend CBC 06/04/21- Patient remains on the vent, no longer on sedation. Easily arousable, follow commands at time. Persistent fever, wbcs remains stable, B.cultX2 pending, procal normal, ID consulted. 06/05/21- Patient remains on the vent on fentanyl gtt RASS -1. Back up to 100% Fio2 due to low SPO2 overnight, this am ABG noted, plan to wean FIO2 for a SPO2 goal abover 90%. Febrile overnight, continue current IV Abx per ID. 06/06/21- Patient remains on the vent on fentanyl gtt RASS 0 to -1. Back on pressors overnight due to hypotension, febrile TMAX 101.1, patient is on IV ABx and ID is on the case. Worsening in kidney function with hyperkalemia is also noted, X1 dose of kayaxalate given. Will continue to monitor renal function and electrolytes. Mom and sister at the bedside, were update on patient's conditions, all questions and concerns were voiced at this time. 06/07/21- Patient remains on the vent. In critical condition this am, on three pressors with severe metabolic acidosis, MAP remains in the 50s. Will placed Artline for hemodynamic monitoring. Worsen kidney function with hyperkalemia. Hyperkalemia was treated per protocol, d/w nephro plan for possible HD today. Will repeat BMP in 4hours. Sputum culture is positive for MRSA, due to kidney function VAnco was switched to Zyvox. will continue to monitor renal function and electrolytes. 06/08: Awaiting family decision regarding hemodialysis, renal function continues to worsen with decreased urine output, patient will continue cefepime and linezolid, chest ultrasound ordered with repeat ABG at 9 PM. Hospitalist Physical - Constitutional Vitals: Temp Pulse Resp BP Pulse Ox 97.6 F 118 H 30 H 76/64 93 06/08/21 12:00 06/08/21 16:00 06/08/21 14:23 06/08/21 16:00 06/08/21 16:00 General appearance: Present: no acute distress, obese, other (Intubated and sedated) - EENT Eyes: Present: PERRL, EOM intact ENT: hearing intact, clear oral mucosa - Neck Neck: Present: normal ROM - Respiratory Respiratory effort: normal Respiratory: bilateral: diminished - Cardiovascular Rhythm: regular Heart Sounds: Present: S1 & S2. Absent: systolic murmur, diastolic murmur - Extremities Extremities: no ischemia, pulses intact, pulses symmetrical, No edema, normal temperature, normal color Peripheral Pulses: within normal limits - Abdominal General gastrointestinal: soft, non-tender, non-distended, normal bowel sounds - Integumentary Integumentary: Present: warm, dry - Psychiatric Psychiatric: other (sedated) - Neurologic Neurologic: other (PERRL, intact cough/gag) - Allied Health Allied health notes reviewed: nursing, RT, social work HEART Score - HEART Score Troponin: Troponin T 0.038 ng/mL (0.00-0.029) H 05/23/21 15:09 Results - Labs CBC & Chem 7: 06/08/21 04:21 06/08/21 04:21 Labs: Laboratory Last Values WBC 15.6 K/mm3 (4.5-11.0) H 06/08/21 04:21 RBC 3.20 M/mm3 (3.65-5.03) L 06/08/21 04:21 Hgb 9.4 gm/dl (11.8-15.2) L 06/08/21 04:21 Hct 30.4 % (35.5-45.6) L 06/08/21 04:21 MCV 95 fl (84-94) H 06/08/21 04:21 MCH 29 pg (28-32) 06/08/21 04:21 MCHC 31 % (32-34) L 06/08/21 04:21 RDW 18.6 % (13.2-15.2) H 06/08/21 04:21 Plt Count 171 K/mm3 (140-440) 06/08/21 04:21 Lymph % (Auto) 6.2 % (13.4-35.0) L 06/03/21 04:10 Hawkins % (Auto) 13.1 % (0.0-7.3) H 06/03/21 04:10 Eos % (Auto) 3.2 % (0.0-4.3) 06/03/21 04:10 Baso % (Auto) 0.4 % (0.0-1.8) 06/03/21 04:10 Lymph # (Auto) 0.5 K/mm3 (1.2-5.4) L 06/03/21 04:10 Hawkins # (Auto) 1.1 K/mm3 (0.0-0.8) H 06/03/21 04:10 Eos # (Auto) 0.3 K/mm3 (0.0-0.4) 06/03/21 04:10 Baso # (Auto) 0.0 K/mm3 (0.0-0.1) 06/03/21 04:10 Add Manual Diff Complete 05/24/21 04:55 Total Counted 100 05/24/21 04:55 Seg Neutrophils % Coat Ironer Hand 06/03/21 04:10 Seg Neuts % (Manual) 97.0 % (40.0-70.0) H 05/24/21 04:55 Lymphocytes % (Manual) 3.0 % (13.4-35.0) L 05/24/21 04:55 Nucleated RBC % Not Reportable 05/24/21 04:55 Seg Neutrophils # 6.2 K/mm3 (1.8-7.7) 06/03/21 04:10 Seg Neutrophils # Man 8.4 K/mm3 (1.8-7.7) H 05/24/21 04:55 Band Neutrophils # 0.0 K/mm3 05/24/21 04:55 Lymphocytes # (Manual) 0.3 K/mm3 (1.2-5.4) L 05/24/21 04:55 Abs React Lymphs (Man) 0.0 K/mm3 05/24/21 04:55 Monocytes # (Manual) 0.0 K/mm3 (0.0-0.8) 05/24/21 04:55 Eosinophils # (Manual) 0.0 K/mm3 (0.0-0.4) 05/24/21 04:55 Basophils # (Manual) 0.0 K/mm3 (0.0-0.1) 05/24/21 04:55 Metamyelocytes # 0.0 K/mm3 05/24/21 04:55 Myelocytes # 0.0 K/mm3 05/24/21 04:55 Promyelocytes # 0.0 K/mm3 05/24/21 04:55 Blast Cells # 0.0 K/mm3 05/24/21 04:55 WBC Morphology Not Reportable 05/24/21 04:55 Hypersegmented Neuts Not Reportable 05/24/21 04:55 Hyposegmented Neuts Not Reportable 05/24/21 04:55 Hypogranular Neuts Not Reportable 05/24/21 04:55 Smudge Cells Not Reportable 05/24/21 04:55 Toxic Granulation Not Reportable 05/24/21 04:55 Toxic Vacuolation Not Reportable 05/24/21 04:55 Dohle Bodies Not Reportable 05/24/21 04:55 Pelger-Huet Anomaly Not Reportable 05/24/21 04:55 Cynthia Rods Not Reportable 05/24/21 04:55 Platelet Estimate Consistent w auto 05/24/21 04:55 Clumped Platelets Not Reportable 05/24/21 04:55 Plt Clumps, EDTA Not Reportable 05/24/21 04:55 Large Platelets Not Reportable 05/24/21 04:55 Giant Platelets Not Reportable 05/24/21 04:55 Platelet Satelliting Not Reportable 05/24/21 04:55 Plt Morphology Comment Not Reportable 05/24/21 04:55 RBC Morphology Not Reportable 05/24/21 04:55 Dimorphic RBCs Not Reportable 05/24/21 04:55 Polychromasia Not Reportable 05/24/21 04:55 Hypochromasia Not Reportable 05/24/21 04:55 Poikilocytosis Not Reportable 05/24/21 04:55 Anisocytosis 1+ 05/24/21 04:55 Microcytosis Not Reportable 05/24/21 04:55 Macrocytosis Not Reportable 05/24/21 04:55 Spherocytes Not Reportable 05/24/21 04:55 Pappenheimer Bodies Not Reportable 05/24/21 04:55 Sickle Cells Not Reportable 05/24/21 04:55 Target Cells Not Reportable 05/24/21 04:55 Tear Drop Cells Not Reportable 05/24/21 04:55 Ovalocytes Not Reportable 05/24/21 04:55 Helmet Cells Not Reportable 05/24/21 04:55 James-Isola Bodies Not Reportable 05/24/21 04:55 [place] Rings Not Reportable 05/24/21 04:55 Hastings Cells Not Reportable 05/24/21 04:55 Bite Cells Not Reportable 05/24/21 04:55 Crenated Cell Not Reportable 05/24/21 04:55 Elliptocytes Not Reportable 05/24/21 04:55 Acanthocytes (Spur) Not Reportable 05/24/21 04:55 Rouleaux Not Reportable 05/24/21 04:55 Hemoglobin C Crystals Not Reportable 05/24/21 04:55 Schistocytes Not Reportable 05/24/21 04:55 Malaria parasites Not Reportable 05/24/21 04:55 Uli Bodies Not Reportable 05/24/21 04:55 Hem Pathologist Commnt No 05/24/21 04:55 PT 15.3 Sec. (12.2-14.9) H 05/29/21 13:40 INR 1.09 (0.87-1.13) 05/29/21 13:40 APTT 25.7 Sec. (24.2-36.6) 05/29/21 13:40 D-Dimer 4444.85 ng/mlDDU (0-234) H 05/23/21 15:09 ABG pH 7.291 pH Units (7.350-7.450) L 06/08/21 Unknown POC ABG pCO2 43.4 mmHg (32.0-48.0) 06/07/21 21:26 ABG pCO2 45.0 mm Hg 06/08/21 Unknown POC ABG pO2 72.3 mmHg (83-108) L 06/07/21 21:26 ABG pO2 78.8 mm Hg (80.0-90.0) L 06/08/21 Unknown POC ABG HCO3 19.9 06/07/21 21:26 ABG HCO3 21.2 mmol/L (20.0-26.0) 06/08/21 Unknown ABG O2 Saturation 94.8 % (95.0-99.0) L 06/08/21 Unknown ABG O2 Content 13.0 (0.0-44) 06/08/21 Unknown POC ABG Base Excess -6.6 06/07/21 21:26 ABG Base Excess -5.1 mmol/L (-2.0-3.0) L 06/08/21 Unknown ABG Hemoglobin 9.9 gm/dl (14.0-18.0) L 06/08/21 Unknown ABG Oxyhemoglobin 92.4 (94-98) L 06/07/21 21:26 ABG Carboxyhemoglobin 1.3 % (0.0-5.0) 06/08/21 Unknown ABG Methemoglobin 0.5 % (0.0-1.5) 06/08/21 Unknown ABG Sodium 136.8 mmol/L (136.0-145.0) 06/07/21 21:26 ABG Potassium 5.3 mmol/L (3.40-4.50) H 06/07/21 21:26 ABG Chloride 109.0 mmol/L (98-107) H 06/07/21 21:26 ABG Glucose 165 mg/dL (65-95) H 06/07/21 21:26 Oxyhemoglobin 93.1 % (95.0-99.0) L 06/08/21 Unknown Carboxyhemoglobin 0.2 (0.5-1.5) L 06/07/21 21:26 FiO2 95 % 06/08/21 Unknown FiO2 % 90.0 06/07/21 21:26 Sodium 143 mmol/L (137-145) 06/08/21 04:21 Potassium 5.0 mmol/L (3.6-5.0) 06/08/21 04:21 Chloride 107.3 mmol/L (98-107) H 06/08/21 04:21 Carbon Dioxide 19 mmol/L (22-30) L 06/08/21 04:21 Anion Gap 22 mmol/L 06/08/21 04:21 BUN 83 mg/dL (9-20) H 06/08/21 04:21 Creatinine 3.5 mg/dL (0.8-1.3) H 06/08/21 04:21 Estimated GFR 23 ml/min 06/08/21 04:21 BUN/Creatinine Ratio 24 % 06/08/21 04:21 Glucose 139 mg/dL (75-100) H 06/08/21 04:21 POC Glucose 121 mg/dL (70-105) H 06/08/21 17:39 Lactic Acid 1.50 mmol/L (0.7-2.0) 05/23/21 15:09 Calcium 8.9 mg/dL (8.4-10.2) 06/08/21 04:21 Phosphorus 2.90 mg/dL (2.5-4.5) 05/28/21 05:30 Magnesium 2.40 mg/dL (1.7-2.3) H 05/28/21 05:30 Total Bilirubin 1.30 mg/dL (0.1-1.2) H 06/08/21 04:21 AST 9433 units/L (5-40) H 06/08/21 04:21 ALT 5071 units/L (7-56) H 06/08/21 04:21 Alkaline Phosphatase 92 units/L (35-129) 06/08/21 04:21 Ammonia 30.0 umol/L (25-60) 05/24/21 04:55 Total Creatine Kinase 48 units/L (55-170) L 05/23/21 15:09 Troponin T 0.038 ng/mL (0.00-0.029) H 05/23/21 15:09 C-Reactive Protein 10.00 mg/dL (0.00-1.30) H 05/23/21 19:10 NT-Pro-B Natriuret Pep 90854 pg/mL (0-450) H 05/23/21 15:09 Total Protein 6.6 g/dL (6.3-8.2) 06/08/21 04:21 Albumin 2.3 g/dL (3.9-5) L 06/08/21 04:21 Albumin/Globulin Ratio 0.5 % 06/08/21 04:21 Triglycerides 830 mg/dL (2-149) H 06/03/21 04:10 Cholesterol 106 mg/dL (50-199) 05/23/21 15:09 LDL Cholesterol Direct 58 mg/dL (50-130) 05/23/21 15:09 HDL Cholesterol 29 mg/dL (40-59) L 05/23/21 15:09 Cholesterol/HDL Ratio 3.65 % 05/23/21 15:09 Amylase 101 units/L (27-131) 06/08/21 04:20 Lipase 86 units/L (13-60) H 06/08/21 04:20 Procalcitonin 0.82 ng/mL (<0.15) 06/02/21 13:53 TSH 2.380 mlU/mL (0.270-4.200) 05/23/21 15:09 Arterial Blood Glucose 165 mg/dL (65-95) H 06/07/21 21:26 Arterial Blood Ionized Calcium 5.3 mg/dL (4.6-5.3) 06/07/21 09:48 Urine Color Yellow (Yellow) 06/04/21 13:39 Urine Turbidity Turbid (Clear) 06/04/21 13:39 Urine pH 5.0 (5.0-7.0) 06/04/21 13:39 Ur Specific [place] 1.015 (1.003-1.030) 06/04/21 13:39 Urine Protein 100 mg/dl mg/dL (Negative) 06/04/21 13:39 Urine Glucose (UA) Neg mg/dL (Negative) 06/04/21 13:39 Urine Ketones Neg mg/dL (Negative) 06/04/21 13:39 Urine Blood Mod (Negative) 06/04/21 13:39 Urine Nitrite Neg (Negative) 06/04/21 13:39 Urine Bilirubin Neg (Negative) 06/04/21 13:39 Urine Urobilinogen 2.0 mg/dL (<2.0) 06/04/21 13:39 Ur Leukocyte Esterase Neg (Negative) 06/04/21 13:39 Urine WBC (Auto) 17.0 /HPF (0.0-6.0) H 06/04/21 13:39 Urine RBC (Auto) > 182.0 /HPF (0.0-6.0) 06/04/21 13:39 U Epithel Cells (Auto) 7.0 /HPF (0-13.0) 06/04/21 13:39 Urine Bacteria (Auto) 1+ /HPF (Negative) 05/23/21 Unknown Amorphous Crystals 3+ 06/04/21 13:39 Urine Mucus Few /HPF 06/04/21 13:39 Ur Yeast w Hyphae Few /HPF 06/04/21 13:39 Urine Yeast (Budding) 3+ /HPF 06/04/21 13:39 Urine Eosinophils 2+ (None Seen) 05/26/21 12:37 Urine Osmolality 612 Mosm/kg 05/26/21 Unknown Urine Creatinine 222.7 mg/dL (0.1-20.0) H 06/06/21 13:30 Protein/Creatinin Ratio 1.01 05/26/21 12:37 Urine Sodium 18 mmol/L 06/06/21 13:30 Urine Potassium 45.15 mmol/L 05/26/21 Unknown Urine Urea Nitrogen 989 05/26/21 Unknown Urine Total Protein 80 mg/dL (5-11.8) H 05/26/21 12:37 Nasal Screen MRSA (PCR) Positive (Negative) 05/30/21 12:00 Salicylates < 0.3 mg/dL (2.8-20.0) L 05/23/21 15:09 Urine Opiates Screen Negative 05/23/21 Unknown Urine Methadone Screen Negative 05/23/21 Unknown Acetaminophen 5.0 ug/mL (10.0-30.0) L 05/23/21 15:09 Ur Barbiturates Screen Negative 05/23/21 Unknown Ur Phencyclidine Scrn Negative 05/23/21 Unknown Ur Amphetamines Screen Negative 05/23/21 Unknown U Benzodiazepines Scrn Negative 05/23/21 Unknown Urine Cocaine Screen Negative 05/23/21 Unknown U Marijuana (THC) Screen Negative 05/23/21 Unknown Drugs of Abuse Note Disclamer 05/23/21 Unknown Plasma/Serum Alcohol < 0.01 % (0-0.07) 05/23/21 15:09 Coronavirus (PCR) Negative (Negative) 05/23/21 Unknown Blood Type O POSITIVE 05/23/21 15:01 Antibody Screen Negative 05/23/21 15:01 Microbiology: Microbiology 06/02/21 13:53 Peripheral/Venous Blood Culture - Final NO GROWTH AFTER 5 DAYS 06/02/21 13:54 Peripheral/Venous Blood Culture - Final NO GROWTH AFTER 5 DAYS 06/04/21 15:59 Tracheal Aspirate Sputum Culture - Final Methicillin Resist S. Aureus A.baumannii/Haemolyticus Garcia/IV: Voiding Method Indwelling Catheter Active Medications - Current Medications Current Medications: Generic Name Dose Route Start Last Admin Trade Name Freq PRN Reason Stop Dose Admin Acetaminophen 650 mg 05/23/21 20:42 06/06/21 22:42 Acetaminophen 325 Mg Tab PO 650 mg Q4H PRN Administration Pain MILD(1-3)/Fever >100.5/CASTORENA Albuterol 2.5 mg 05/23/21 21:11 Albuterol 2.5 Mg/3 Ml Nebu IH Q4HRT PRN Shortness Of Breath Albuterol/Ipratropium 1 ampul 05/29/21 08:00 06/08/21 14:23 Ipratropium/Albuterol Sulfate 3 Ml Ampul.Neb IH 1 ampul TIDRT ROSEMARIE Administration Lipase/Protease/Amylase 1 each 05/24/21 10:14 Lipase 10,500/Protease 25,000/Amylase 43,750 (Units) Dr Cap FEEDTUBE PRN PRN For Clogged Feeding Tube Apixaban 2.5 mg 05/29/21 13:00 06/08/21 09:10 Apixaban 2.5 Mg Tab PO 2.5 mg Q12HR ROSEMARIE Administration Protocol Dextrose 50 ml 06/08/21 10:33 Dextrose 50% In Water (25gm) 50 Ml Syringe IV Q30MIN PRN Hypoglycemia Protocol Famotidine 10 mg 06/06/21 22:00 06/08/21 09:09 Famotidine 20 Mg Tab FEEDTUBE 10 mg BID ROSEMARIE Administration Hydrophilic Ointment 1 applic 05/23/21 12:34 Lip Therapy Vaseline TP Q2HR PRN Dry Lips Fentanyl Citrate 2,000 mcg in 100 mls @ 8.528 mls/hr 05/23/21 13:00 06/08/21 11:39 Fentanyl Drip Premix IV 0.6 mcg/kg/hr TITR ROSEMARIE 5.117 mls/hr Titration Protocol 1 MCG/KG/HR Cefepime HCl 2 gm in 100 mls @ 200 mls/hr 06/07/21 04:00 06/08/21 04:36 Cefepime/Ns 2 Gm/100 Ml IV 200 mls/hr Q24H ROSEMARIE Administration Protocol Sodium Chloride 500 mls @ 1 mls/hr 06/06/21 13:40 06/06/21 14:18 Nacl 0.9% 500 Ml IV 1 mls/hr DIRECT PRN Administration ARTERIAL LINE FLUSH Vasopressin 20 unit/ Sodium 101 mls @ 9.09 mls/hr 06/06/21 15:00 06/08/21 11:39 Chloride IV 0.03 units/min TITR ROSEMARIE 9.09 mls/hr Administration Protocol 0.03 UNITS/MIN Phenylephrine HCl 100 mg/ 100 mls @ 3 mls/hr 06/06/21 19:00 06/08/21 11:39 Sodium Chloride IV 10 mcg/min TITR ROSEMARIE 0.6 mls/hr Titration Protocol 50 MCG/MIN Sodium Bicarbonate 150 meq/ 1,150 mls @ 100 mls/hr 06/07/21 08:00 06/08/21 09:30 Dextrose IV 100 mls/hr DIRECT ROSEMARIE Administration NORepinephrine/NS 8 MG-250 ML 8 mg in 250 mls @ 3.75 mls/hr 06/07/21 09:00 06/08/21 15:00 Norepinephrine/Ns 8 Mg-250 Ml (Double Conc) IV 22 mcg/min TITRATE ROSEMARIE 41.25 mls/hr Administration Protocol 2 MCG/MIN Linezolid 600 mg in 300 mls @ 300 mls/hr 06/07/21 14:00 06/08/21 13:46 Zyvox 600mg/300ml IV 300 mls/hr Q12H ROSEMARIE Administration Protocol Propofol 1,000 mg in 100 mls @ 3.018 mls/hr 06/07/21 15:00 06/08/21 15:01 Diprivan 10 Mg/Ml IV 5 mcg/kg/min TITR ROSEMARIE 3.018 mls/hr Administration Protocol 5 MCG/KG/MIN Insulin Human Regular 0 units 06/08/21 12:00 06/08/21 11:21 Insulin Regular, Human 100 Units/1 Ml SUB-Q Not Given Q6H ROSEMARIE Protocol Multi-Ingred Cream/Lotion/Oil/Oint 1 applic 05/23/21 12:34 05/30/21 22:14 Mineral Oil/Petrolatum, White Ophth Oint 3.5 Gm OU 1 applic Q4HR PRN Administration Dry Eye(s) Ondansetron HCl 4 mg 05/23/21 20:42 Ondansetron 4 Mg/2 Ml Inj IV Q8H PRN Nausea And Vomiting Quetiapine Fumarate 100 mg 06/03/21 22:00 06/08/21 09:10 Quetiapine 100 Mg Tab PO 100 mg BID ROSEMARIE Administration Senna/Docusate Sodium 1 tab 05/23/21 22:00 06/08/21 09:09 Sennosides/Docusate Sodium 8.6/50 Mg Tab FEEDTUBE 1 tab BID ROSEMARIE Administration Simple Syrup 15 ml 05/24/21 10:14 Simple Syrup 15 Ml FEEDTUBE PRN PRN Hypoglycemia Simple Syrup 30 ml 05/24/21 10:14 Simple Syrup 15 Ml FEEDTUBE PRN PRN Hypoglycemia Sodium Bicarbonate 325 mg 05/24/21 10:14 Sodium Bicarbonate 325 Mg Tab FEEDTUBE PRN PRN For Clogged Feeding Tube Sodium Chloride 10 ml 05/23/21 22:00 06/08/21 09:11 Sodium Chloride 0.9% 10 Ml Flush Syringe IV 10 ml BID ROSEMARIE Administration Sodium Chloride 10 ml 05/23/21 20:42 Sodium Chloride 0.9% 10 Ml Flush Syringe IV PRN PRN LINE FLUSH Nutrition/Malnutrition Assess - Dietary Evaluation Nutrition/Malnutrition Findings: Nutrition Notes Start: 05/24/21 09:53 Freq: Status: Active Protocol: Document 06/02/21 16:14 GB (Rec: 06/02/21 16:23 GB [id number]) Nutrition Notes Initial or Follow up Reassessment Current Diagnosis Acute Kidney Injury, Hypertension,Respiratory Failure Other Pertinent Diagnosis SIRS, encephalopathy, pneu, transaminitis Current Diet NPO, Tube Feeding Nepro @ 45m/ hr Labs/Tests 06/02: BUN 61, Creatinine 1.7, glucose 119 Pertinent Medications Fentanyl Citrate, Norepenephrin/NS 8 Mg 250, Propofol 20.466 ml/hr (540kcal ) Height 5 ft 8 in Weight 100.6 kg [place] Body Weight (kg) 70.00 BMI 33.7 Weight change and time frame Weights recorded to nursing flow sheet - that does not tie to I/O weight results documentation. Weight taken on bed 06/02 100. 6kg, bed changed out on 05/29 r /t not working. Unsure if current weight or pervious weight is accurate. Weight Status Obese Subjective/Other Information MD notes 06/02: Continue TF@ goal as tolerated, persistent lower lobe predominant airspace disease, slightly improved. Per discussion with RN: Bed was changed out on 05/29 due to not working. Weight taken on current bed 100.6kg 06/02. Unsure if bed was zero'd or if weight from previous bed was accurate. Recommend reweigh for weight confirmation. Pt does not appear to have lost significant weight. Also discussed goal rate of TF. Goal is 45m/hr and rate was recorded at 55ml/hr. TF rate now at 45ml/hr. Intubation/Sedation: continues Last BM: 05/30 Percent of energy/protein needs met: TF at goal meets 75% or greater of minimal estimated energy needs Burn Absent Trauma Absent GI Symptoms Other Difficulty In Swallowing Food Allergy No Current % PO Other Minimum of two criteria No #1 Nutrition Diagnosis Swallowing difficulty Comments: 05/25: intubation/sedation continues. TF started 05/28: intubation/sedation continues. TF Nepro @ goal 45ml/hr 06/02: intubation/sedation continues. TF Nepro @ 45m/hr Etiology ARF As Evidenced by Signs and Symptoms Intubated/sedated Diagnosis Progress(for reassessment Continues documentation) Is patient on ventilator? Yes Is Patient Ambulatory and/or Out of Bed No REE-([facility]-confined to bed) 2253.516 Kcal/Kg value to use for calculation 20 Approximate Energy Requirements Using 2011 kcal/Kg Calculation Used for Recommendations Kcal/kg Additional Notes Protein: 1-1.2 g/kg @ 100k-120g Fluid: 1 ml/kcal or per MD Nutrition Intervention Change Diet Order: Continue NPO, Tube feeding Nutrition Support: Nepro 1.8 at 45 ml/hr Flush 175 ml q4h or per MD Total free water: TF@goal + flush = 1835ml Kcal 1,950 Protein (gm) 88 Carbohydrates (gm) 174 Fat (gm) 104 Fluid (mL) 788 Fiber (gm) 14 % RDI: 98%kcal / 88%pro Add Supplement/Snack (indicate name/kcal n/a /protein ) Goal #1 Meet at least 75% or greater of EEN via TF 05/25: met, continues 05/28: met, continues 06/02: met, continues Goal #2 TF (Nepro) at goal rate (45ml/ hr) by f/u 05/25: TF started 05/28: TF at goal. met, continues 06/02: met, continues Anticipated Discharge Needs: Unable to determine at this time Follow-Up By: 06/09/21 Additional Comments f/u: TF tolerance, weight, vent status
--- NOTE | 2021-06-08 18:14 | Ultrasound Report ---
Limited chest Ultrasound HISTORY: Effusion R>L to evaluate for thoracentesis. TECHNIQUE: Grayscale and color imaging performed. COMPARISON: Chest x-ray from 2 days prior FINDINGS: Tiny amount of right-sided pleural fluid. No significant pleural fluid on the left. IMPRESSION: Tiny amount of pleural fluid on the right, insufficient for thoracentesis. Signer Name: Junior Sierra MD Signed: 06/08/2021 6:10 PM Workstation Name: [id number]
--- NOTE | 2021-06-08 18:48 | Progress Note ---
Assessment and Plan - Patient Problems (1) Acute respiratory failure Current Visit: Yes Status: Acute Plan to address problem: Continue supportive management, no acute cardiac complaints, we will follow intermittently. Subjective Date of service: 06/08/21 Principal diagnosis: Acute hypoxemic and hypercapnic resp failure; PUI COVID-19; Pneumonia; FERMIN Interval history: The patient is on the vent, telemetry shows mild sinus tachycardia 111, blood pressure is 116 systolic. Objective Vital Signs Temp Pulse Pulse Pulse Resp Resp BP 06/08/21 18:16 115 H 29 H 97/46 06/08/21 18:00 114 H 30 H 72/37 06/08/21 17:46 113 H 30 H 110/44 06/08/21 17:30 115 H 31 H 110/44 06/08/21 17:16 113/55 06/08/21 17:00 117 H 30 H 113/55 06/08/21 16:46 118 H 30 H 99/49 06/08/21 16:30 118 H 30 H 105/54 06/08/21 16:16 116 H 30 H 108/46 06/08/21 16:00 98.8 F 116 H 112 H 9 L 108/46 06/08/21 15:46 108/46 06/08/21 15:30 82 34 H 108/46 06/08/21 15:16 114 H 30 H 108/46 06/08/21 15:00 123 H 30 H 130/66 06/08/21 14:46 112 H 30 H 108/52 06/08/21 14:30 114 H 30 H 107/56 06/08/21 14:23 111 H 30 H 06/08/21 14:16 113 H 30 H 100/48 06/08/21 14:00 111 H 30 H 108/52 06/08/21 13:46 111 H 30 H 100/48 06/08/21 13:30 111 H 30 H 100/48 06/08/21 13:16 116 H 30 H 105/49 06/08/21 13:00 118 H 13 116/58 06/08/21 12:46 112 H 30 H 113/54 06/08/21 12:30 110 H 30 H 113/54 06/08/21 12:23 115 H 85/57 06/08/21 12:16 110 H 18 110/50 06/08/21 12:00 97.6 F 111 H 112 H 30 H 110/50 06/08/21 11:46 110 H 20 110/50 06/08/21 11:30 110 H 23 110/50 06/08/21 11:16 108 H 27 H 113/51 06/08/21 11:00 108 H 30 H 113/51 06/08/21 10:46 106 H 21 93/57 06/08/21 10:30 105 H 30 H 93/57 06/08/21 10:16 110 H 15 100/49 06/08/21 10:00 109 H 22 100/49 06/08/21 09:46 108 H 30 H 106/52 06/08/21 09:30 108 H 27 H 106/52 06/08/21 09:16 106 H 29 H 120/58 06/08/21 09:00 105 H 12 120/58 06/08/21 08:46 108 H 17 117/56 06/08/21 08:30 111 H 24 94/54 06/08/21 08:23 109 H 30 H 06/08/21 08:21 112 H 91/53 06/08/21 08:16 111 H 24 94/54 06/08/21 08:00 98.4 F 112 H 109 H 30 H 94/54 06/08/21 07:45 119 H 28 H 132/58 06/08/21 07:30 119 H 29 H 120/49 06/08/21 07:15 120 H 30 H 140/55 06/08/21 07:00 121 H 30 H 95/62 06/08/21 06:46 115 H 30 H 107/63 06/08/21 06:30 112 H 30 H 122/56 06/08/21 06:16 108 H 30 H 118/54 06/08/21 06:00 113 H 18 151/61 06/08/21 05:45 106 H 17 154/69 06/08/21 05:30 107 H 16 129/66 06/08/21 05:15 107 H 28 H 151/64 06/08/21 05:00 104 H 19 129/66 06/08/21 04:45 103 H 17 134/71 06/08/21 04:30 109 H 22 122/61 06/08/21 04:26 92 H 160/78 06/08/21 04:15 103 H 20 130/63 06/08/21 04:00 107 H 101 H 12 122/61 06/08/21 03:45 104 H 21 140/64 06/08/21 03:30 102 H 18 121/60 06/08/21 03:23 99.5 F 06/08/21 03:15 105 H 17 126/57 06/08/21 03:00 102 H 15 114/60 06/08/21 02:45 101 H 14 117/65 06/08/21 02:30 103 H 19 122/61 06/08/21 02:15 103 H 20 120/67 06/08/21 02:00 103 H 15 138/65 06/08/21 01:45 102 H 17 126/60 06/08/21 01:30 102 H 18 120/65 06/08/21 01:15 102 H 17 116/47 06/08/21 01:00 106 H 17 142/61 06/08/21 00:45 105 H 18 121/55 06/08/21 00:30 105 H 13 123/63 06/08/21 00:15 108 H 18 123/63 06/08/21 00:00 102 H 101 H 24 149/59 06/07/21 23:56 99.0 F 06/07/21 23:45 103 H 22 147/69 06/07/21 23:30 101 H 23 127/66 06/07/21 23:19 101 H 136/71 06/07/21 23:15 102 H 18 136/71 06/07/21 23:00 101 H 21 129/69 06/07/21 22:46 101 H 26 H 128/66 06/07/21 22:30 101 H 20 128/66 06/07/21 22:16 102 H 23 128/66 06/07/21 22:00 107 H 17 157/32 06/07/21 21:46 99 H 27 H 157/32 06/07/21 21:30 100 H 15 157/32 06/07/21 21:16 98 H 18 157/32 06/07/21 21:02 96 H 21 157/32 06/07/21 21:00 90 21 157/32 06/07/21 20:46 95 H 25 H 157/32 06/07/21 20:30 96 H 26 H 157/32 06/07/21 20:16 98 H 18 157/32 06/07/21 20:00 96 H 101 H 21 157/32 06/07/21 19:48 98.2 F 06/07/21 19:46 100 H 22 157/32 06/07/21 19:30 101 H 18 157/32 06/07/21 19:19 97 H 30 H 06/07/21 19:16 97 H 20 157/32 06/07/21 19:15 97 H 110/81 06/07/21 19:00 98 H 14 157/32 Pulse Ox 06/08/21 18:16 97 06/08/21 18:00 100 06/08/21 17:46 100 06/08/21 17:30 97 06/08/21 17:16 96 06/08/21 17:00 91 06/08/21 16:46 93 06/08/21 16:30 93 06/08/21 16:16 97 06/08/21 16:00 96 06/08/21 15:46 100 06/08/21 15:30 98 06/08/21 15:16 91 06/08/21 15:00 91 06/08/21 14:46 93 06/08/21 14:30 94 06/08/21 14:23 06/08/21 14:16 93 06/08/21 14:00 93 06/08/21 13:46 93 06/08/21 13:30 91 06/08/21 13:16 91 06/08/21 13:00 93 06/08/21 12:46 93 06/08/21 12:30 91 06/08/21 12:23 92 06/08/21 12:16 90 06/08/21 12:00 93 06/08/21 11:46 94 06/08/21 11:30 96 06/08/21 11:16 100 06/08/21 11:00 100 06/08/21 10:46 97 06/08/21 10:30 99 06/08/21 10:16 86 06/08/21 10:00 93 06/08/21 09:46 89 06/08/21 09:30 88 06/08/21 09:16 90 06/08/21 09:00 92 06/08/21 08:46 85 06/08/21 08:30 99 06/08/21 08:23 06/08/21 08:21 96 06/08/21 08:16 97 06/08/21 08:00 96 06/08/21 07:45 97 06/08/21 07:30 96 06/08/21 07:15 99 06/08/21 07:00 100 06/08/21 06:46 98 06/08/21 06:30 91 06/08/21 06:16 92 06/08/21 06:00 97 06/08/21 05:45 99 06/08/21 05:30 98 06/08/21 05:15 98 06/08/21 05:00 100 06/08/21 04:45 98 06/08/21 04:30 96 06/08/21 04:26 100 06/08/21 04:15 99 06/08/21 04:00 100 06/08/21 03:45 99 06/08/21 03:30 99 06/08/21 03:23 06/08/21 03:15 100 06/08/21 03:00 99 06/08/21 02:45 99 06/08/21 02:30 99 06/08/21 02:15 94 06/08/21 02:00 98 06/08/21 01:45 97 06/08/21 01:30 96 06/08/21 01:15 95 06/08/21 01:00 100 06/08/21 00:45 100 06/08/21 00:30 100 06/08/21 00:15 100 06/08/21 00:00 100 06/07/21 23:56 06/07/21 23:45 100 06/07/21 23:30 100 06/07/21 23:19 100 06/07/21 23:15 99 06/07/21 23:00 100 06/07/21 22:46 99 06/07/21 22:30 99 06/07/21 22:16 100 06/07/21 22:00 100 06/07/21 21:46 100 06/07/21 21:30 98 06/07/21 21:16 100 06/07/21 21:02 95 06/07/21 21:00 96 06/07/21 20:46 94 06/07/21 20:30 95 06/07/21 20:16 99 06/07/21 20:00 97 06/07/21 19:48 06/07/21 19:46 98 06/07/21 19:30 98 06/07/21 19:19 06/07/21 19:16 96 06/07/21 19:15 96 06/07/21 19:00 97 - Physical Examination General: Other (Sedated on mechanical ventilator, patient is massively obese) HEENT: Positive: Normocephaly Neck: Positive: neck supple. Negative: JVD/HJR Cardiac: Positive: Regular Rhythm Lungs: Positive: Decreased Breath Sounds Neuro: Positive: Other (Sedated, on the vent) Abdomen: Positive: Soft Skin: Positive: Clear Extremities: Present: +1 Edema (Patient has severe chronic stasis changes) - Labs and Meds Cardiac Enzymes 06/08/21 Range/Units 04:21 AST 9433 H (5-40) units/L CBC 06/08/21 Range/Units 04:21 WBC 15.6 H (4.5-11.0) K/mm3 RBC 3.20 L (3.65-5.03) M/mm3 Hgb 9.4 L (11.8-15.2) gm/dl Hct 30.4 L (35.5-45.6) % Plt Count 171 (140-440) K/mm3 Comprehensive Metabolic Panel 06/07/21 06/08/21 Range/Units 18:04 04:21 Sodium 139 143 (137-145) mmol/L Potassium 5.8 H 5.0 (3.6-5.0) mmol/L Chloride 103.7 107.3 H (98-107) mmol/L Carbon Dioxide 16 L 19 L (22-30) mmol/L BUN 84 H 83 H (9-20) mg/dL Creatinine 3.2 H 3.5 H (0.8-1.3) mg/dL Glucose 186 H 139 H (75-100) mg/dL Calcium 9.2 8.9 (8.4-10.2) mg/dL AST 9433 H (5-40) units/L ALT 5071 H (7-56) units/L Alkaline Phosphatase 92 (35-129) units/L Total Protein 6.6 (6.3-8.2) g/dL Albumin 2.3 L (3.9-5) g/dL - Imaging and Cardiology EKG: report reviewed (Sinus tachycardia no acute ST-T wave changes) - Allied health notes Allied health notes reviewed: nursing
[2021-06-08 21:31] LABS: ABG Base Excess -5.2 mmol/L (-2.0-3.0); ABG HCO3 21.3 mmol/L (20.0-26.0); ABG Methemoglobin 0.5 % (0.0-1.5); ABG Oxygen Saturation 96.8 % (95.0-99.0); ABG PCO2 46.2 mm Hg; ABG PH 7.282 pH Units (7.350-7.450); ABG PO2 91.3 mm Hg (80.0-90.0)
[2021-06-09] MEDS: LINEZOLID 600 MG/300 ML BAG IV SCH ×2 (02:55→15:24)
[2021-06-09] MEDS: NORepinephrine/NS 8 MG-250 ML 8 MG/250 ML INFUS..BTL IV SCH ×4 (04:31→18:55)
[2021-06-09] MEDS: CEFEPIME/NS 2 GM/100 ML 2 GM/100 ML BAG IV SCH (04:55)
[2021-06-09] MEDS: INSULIN REGULAR, HUMAN 100 UNITS/1 ML SUB-Q SCH ×4 (05:53→20:55)
[2021-06-09 06:01] LABS: Albumin 2.1 g/dL (3.9-5); Calcium 7.8 mg/dL (8.4-10.2)
--- NOTE | 2021-06-09 07:52 | Progress Note ---
Assessment and Plan Acute Renal Failure likely on CKD Hypertension Acute Respiratory Failure Pneumonia, community-acquired Morbid obesity Obstructive sleep apnea Edema Plan: Cont to have rising Cr with minimal UOP Hypotension- On Norepi and Vasopressin Renally dose medications Obtain daily weights Monitor I/O's daily-has dill catheter Avoid nephrotoxic agents Continue to monitor renal function closely family was consentsed regarding initaing dialysis, now they are agreeable, will have first HD today after vascath placement Subjective Date of service: 06/09/21 Principal diagnosis: Acute hypoxemic and hypercapnic resp failure; PUI COVID-19; Pneumonia; FERMIN Interval history: remains intubated Objective - Vital Signs Vital signs: Vital Signs - 12hr 06/08/21 06/08/21 06/08/21 20:00 20:16 20:30 Temperature 99.0 F Pulse Rate 120 H 113 H 114 H Pulse Rate [ 112 H From Monitor] Respiratory 29 H 27 H 29 H Rate Blood Pressure 101/42 101/42 96/36 O2 Sat by Pulse 95 96 93 Oximetry 06/08/21 06/08/21 06/08/21 20:46 21:00 21:15 Temperature Pulse Rate 121 H 113 H 112 H Pulse Rate [ From Monitor] Respiratory 22 30 H 30 H Rate Blood Pressure 118/50 118/46 111/48 O2 Sat by Pulse 92 90 92 Oximetry 06/08/21 06/08/21 06/08/21 21:30 21:45 21:50 Temperature Pulse Rate 116 H 113 H Pulse Rate [ From Monitor] Respiratory 25 H 29 H Rate Blood Pressure 107/43 111/40 O2 Sat by Pulse 92 93 93 Oximetry 06/08/21 06/08/21 06/08/21 22:00 22:15 22:30 Temperature Pulse Rate 112 H 117 H 112 H Pulse Rate [ From Monitor] Respiratory 30 H 35 H 30 H Rate Blood Pressure 101/41 123/64 113/44 O2 Sat by Pulse 93 96 92 Oximetry 06/08/21 06/08/21 06/08/21 22:45 23:00 23:06 Temperature Pulse Rate 112 H 121 H 115 H Pulse Rate [ From Monitor] Respiratory 30 H 22 29 H Rate Blood Pressure 112/45 133/59 133/59 O2 Sat by Pulse 91 98 90 Oximetry 06/08/21 06/08/21 06/08/21 23:15 23:30 23:45 Temperature Pulse Rate 113 H 111 H 110 H Pulse Rate [ From Monitor] Respiratory 29 H 21 21 Rate Blood Pressure 108/47 118/45 109/43 O2 Sat by Pulse 91 91 93 Oximetry 06/08/21 06/09/21 06/09/21 23:52 00:00 00:15 Temperature 99.2 F Pulse Rate 111 H 112 H 110 H Pulse Rate [ 112 H From Monitor] Respiratory 28 H 30 H Rate Blood Pressure 80/67 116/48 115/46 O2 Sat by Pulse 93 91 92 Oximetry 06/09/21 06/09/21 06/09/21 00:30 00:45 01:00 Temperature Pulse Rate 110 H 110 H 110 H Pulse Rate [ From Monitor] Respiratory 27 H 28 H 16 Rate Blood Pressure 117/52 114/52 117/47 O2 Sat by Pulse 93 93 93 Oximetry 06/09/21 06/09/21 06/09/21 01:15 01:30 01:45 Temperature Pulse Rate 109 H 108 H 109 H Pulse Rate [ From Monitor] Respiratory 15 14 11 L Rate Blood Pressure 120/48 117/49 121/50 O2 Sat by Pulse 93 93 94 Oximetry 06/09/21 06/09/21 06/09/21 02:00 02:15 02:30 Temperature Pulse Rate 114 H 108 H 108 H Pulse Rate [ From Monitor] Respiratory 26 H 29 H 27 H Rate Blood Pressure 110/53 119/50 119/50 O2 Sat by Pulse 96 93 93 Oximetry 06/09/21 06/09/21 06/09/21 02:45 03:00 03:15 Temperature Pulse Rate 107 H 107 H 112 H Pulse Rate [ From Monitor] Respiratory 30 H 22 21 Rate Blood Pressure 118/50 124/55 127/58 O2 Sat by Pulse 94 98 100 Oximetry 06/09/21 06/09/21 06/09/21 03:30 03:45 04:00 Temperature 98.8 F Pulse Rate 108 H 109 H 109 H Pulse Rate [ 112 H From Monitor] Respiratory 14 18 30 H Rate Blood Pressure 134/51 136/60 108/44 O2 Sat by Pulse 96 95 88 Oximetry 06/09/21 06/09/21 06/09/21 04:11 04:15 04:30 Temperature Pulse Rate 109 H 120 H 110 H Pulse Rate [ From Monitor] Respiratory 31 H 30 H Rate Blood Pressure 80/65 128/62 143/62 O2 Sat by Pulse 92 95 97 Oximetry 06/09/21 06/09/21 06/09/21 04:45 05:00 05:15 Temperature Pulse Rate 110 H 109 H 110 H Pulse Rate [ From Monitor] Respiratory 30 H 30 H 30 H Rate Blood Pressure 119/40 124/46 125/44 O2 Sat by Pulse 94 89 88 Oximetry 06/09/21 06/09/21 06/09/21 05:30 05:45 06:00 Temperature Pulse Rate 110 H 108 H 110 H Pulse Rate [ From Monitor] Respiratory 30 H 30 H 30 H Rate Blood Pressure 130/53 138/55 126/59 O2 Sat by Pulse 87 100 92 Oximetry - Lab 06/08/21 04:21 06/09/21 04:00 Most recent lab results ABG pH 7.291 pH Units (7.350-7.450) L 06/08/21 Unknown ABG pCO2 45.0 mm Hg 06/08/21 Unknown ABG pO2 78.8 mm Hg (80.0-90.0) L 06/08/21 Unknown ABG HCO3 21.2 mmol/L (20.0-26.0) 06/08/21 Unknown ABG O2 Saturation 94.8 % (95.0-99.0) L 06/08/21 Unknown Calcium 7.8 mg/dL (8.4-10.2) L 06/09/21 04:00 Phosphorus 5.90 mg/dL (2.5-4.5) H 06/09/21 04:00 Magnesium 2.30 mg/dL (1.7-2.3) 06/09/21 04:00 Urine Creatinine 222.7 mg/dL (0.1-20.0) H 06/06/21 13:30 Urine Sodium 18 mmol/L 06/06/21 13:30 Urine Total Protein 80 mg/dL (5-11.8) H 05/26/21 12:37 Medications & Allergies - Medications Allergies/Adverse Reactions: Allergies No Known Allergies Allergy (Unverified 05/25/21 12:48) Home Medications: Home Medications Medication Instructions Recorded Confirmed Last Taken Type Amoxicillin [Amoxicillin TAB] 875 mg PO BID #20 tablet 11/12/14 05/29/21 Unknown Rx Apixaban 2.5 mg PO BID 05/29/21 05/29/21 Unknown History Cholecalciferol (Vitamin D3) 3 mg PO 1XW 05/29/21 05/29/21 Unknown History Metoprolol 150 mg PO BID 05/29/21 05/29/21 Unknown History Torsemide 80 mg PO DAILY 05/29/21 05/29/21 Unknown History Active Medications: Generic Name Dose Route Start Last Admin Trade Name Freq PRN Reason Stop Dose Admin Acetaminophen 650 mg 05/23/21 20:42 06/06/21 22:42 Acetaminophen 325 Mg Tab PO 650 mg Q4H PRN Administration Pain MILD(1-3)/Fever >100.5/CASTORENA Albuterol 2.5 mg 05/23/21 21:11 Albuterol 2.5 Mg/3 Ml Nebu IH Q4HRT PRN Shortness Of Breath Albuterol/Ipratropium 1 ampul 05/29/21 08:00 06/08/21 19:25 Ipratropium/Albuterol Sulfate 3 Ml Ampul.Neb IH 1 ampul TIDRT ROSEMARIE Administration Lipase/Protease/Amylase 1 each 05/24/21 10:14 Lipase 10,500/Protease 25,000/Amylase 43,750 (Units) Dr Cap FEEDTUBE PRN PRN For Clogged Feeding Tube Apixaban 2.5 mg 05/29/21 13:00 06/08/21 22:05 Apixaban 2.5 Mg Tab PO 2.5 mg Q12HR ROSEMARIE Administration Protocol Dextrose 50 ml 06/08/21 10:33 Dextrose 50% In Water (25gm) 50 Ml Syringe IV Q30MIN PRN Hypoglycemia Protocol Famotidine 10 mg 06/06/21 22:00 06/08/21 22:04 Famotidine 20 Mg Tab FEEDTUBE 10 mg BID ROSEMARIE Administration Hydrophilic Ointment 1 applic 05/23/21 12:34 Lip Therapy Vaseline TP Q2HR PRN Dry Lips Fentanyl Citrate 2,000 mcg in 100 mls @ 8.528 mls/hr 05/23/21 13:00 06/08/21 20:00 Fentanyl Drip Premix IV 0.6 mcg/kg/hr TITR ROSEMARIE 5.117 mls/hr Titration Protocol 1 MCG/KG/HR Cefepime HCl 2 gm in 100 mls @ 200 mls/hr 06/07/21 04:00 06/09/21 04:55 Cefepime/Ns 2 Gm/100 Ml IV 200 mls/hr Q24H ROSEMARIE Administration Protocol Sodium Chloride 500 mls @ 1 mls/hr 06/06/21 13:40 06/06/21 14:18 Nacl 0.9% 500 Ml IV 1 mls/hr DIRECT PRN Administration ARTERIAL LINE FLUSH Vasopressin 20 unit/ Sodium 101 mls @ 9.09 mls/hr 06/06/21 15:00 06/08/21 23:26 Chloride IV 0.03 units/min TITR ROSEMARIE 9.09 mls/hr Administration Protocol 0.03 UNITS/MIN Phenylephrine HCl 100 mg/ 100 mls @ 3 mls/hr 06/06/21 19:00 06/09/21 04:33 Sodium Chloride IV 100 mcg/min TITR ROSEMARIE 6 mls/hr Titration Protocol 50 MCG/MIN Sodium Bicarbonate 150 meq/ 1,150 mls @ 100 mls/hr 06/07/21 08:00 06/08/21 20:34 Dextrose IV 100 mls/hr DIRECT ROSEMARIE Administration NORepinephrine/NS 8 MG-250 ML 8 mg in 250 mls @ 3.75 mls/hr 06/07/21 09:00 06/09/21 04:31 Norepinephrine/Ns 8 Mg-250 Ml (Double Conc) IV 20 mcg/min TITRATE ROSEMARIE 37.5 mls/hr Administration Protocol 2 MCG/MIN Linezolid 600 mg in 300 mls @ 300 mls/hr 06/07/21 14:00 06/09/21 02:55 Zyvox 600mg/300ml IV 300 mls/hr Q12H ROSEMARIE Administration Protocol Propofol 1,000 mg in 100 mls @ 3.018 mls/hr 06/07/21 15:00 06/08/21 20:00 Diprivan 10 Mg/Ml IV 5 mcg/kg/min TITR ROSEMARIE 3.018 mls/hr Titration Protocol 5 MCG/KG/MIN Insulin Human Regular 0 units 06/08/21 12:00 06/09/21 05:53 Insulin Regular, Human 100 Units/1 Ml SUB-Q Not Given Q6H ROSEMARIE Protocol Multi-Ingred Cream/Lotion/Oil/Oint 1 applic 05/23/21 12:34 05/30/21 22:14 Mineral Oil/Petrolatum, White Ophth Oint 3.5 Gm OU 1 applic Q4HR PRN Administration Dry Eye(s) Ondansetron HCl 4 mg 05/23/21 20:42 Ondansetron 4 Mg/2 Ml Inj IV Q8H PRN Nausea And Vomiting Quetiapine Fumarate 100 mg 06/03/21 22:00 06/08/21 22:05 Quetiapine 100 Mg Tab PO 100 mg BID ROSEMARIE Administration Senna/Docusate Sodium 1 tab 05/23/21 22:00 06/08/21 22:04 Sennosides/Docusate Sodium 8.6/50 Mg Tab FEEDTUBE 1 tab BID ROSEMARIE Administration Simple Syrup 15 ml 05/24/21 10:14 Simple Syrup 15 Ml FEEDTUBE PRN PRN Hypoglycemia Simple Syrup 30 ml 05/24/21 10:14 Simple Syrup 15 Ml FEEDTUBE PRN PRN Hypoglycemia Sodium Bicarbonate 325 mg 05/24/21 10:14 Sodium Bicarbonate 325 Mg Tab FEEDTUBE PRN PRN For Clogged Feeding Tube Sodium Chloride 10 ml 05/23/21 22:00 06/08/21 22:05 Sodium Chloride 0.9% 10 Ml Flush Syringe IV 10 ml BID ROSEMARIE Administration Sodium Chloride 10 ml 05/23/21 20:42 Sodium Chloride 0.9% 10 Ml Flush Syringe IV PRN PRN LINE FLUSH
[2021-06-09] MEDS: VASOPRESSIN 20 UNIT in SODIUM CHLORIDE 0.9% 100 ML IV SCH ×2 (08:14→18:50)
[2021-06-09] MEDS: PHENYLEPHRINE 100 MG in SODIUM CHLORIDE 0.9% 90 ML IV SCH ×2 (08:15→18:54)
[2021-06-09] MEDS: SODIUM BICARBONATE 150 MEQ in DEXTROSE 5% IN WATER 1,000 ML IV SCH (08:16)
[2021-06-09] MEDS: IPRATROPIUM/ALBUTEROL SULFATE 3 ML AMPUL.NEB IH SCH ×3 (09:12→19:26)
[2021-06-09] MEDS: APIXABAN 2.5 MG TAB PO SCH ×2 (10:21→23:00)
[2021-06-09] MEDS: SENNOSIDES/DOCUSATE SODIUM 8.6/50 MG TAB FEEDTUBE SCH ×2 (10:21→23:00)
[2021-06-09] MEDS: QUEtiapine 100 MG TAB PO SCH ×2 (10:21→23:00)
[2021-06-09] MEDS: FAMOTIDINE 20 MG TAB FEEDTUBE SCH ×2 (10:22→23:00)
--- NOTE | 2021-06-09 10:56 | Electrocardiograph Report ---
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
--- NOTE | 2021-06-09 11:23 | Ultrasound Report ---
ULTRASOUND ABDOMEN, LIMITED INDICATION / CLINICAL INFORMATION: elevated lfts/lipase. COMPARISON: None available. FINDINGS: PANCREAS: Visualized portion shows no significant abnormality. AORTA: The proximal aorta is obscured by overlying bowel gas. The remainder of the aorta shows no sig nificant abnormality. IVC: No significant abnormality. LIVER: The liver is enlarged measuring 21.6 cm with diffusely heterogeneous appearance and decreased acoustic penetration. Normal hepatopedal blood flow within the main portal vein. GALLBLADDER: Surgically absent. BILE DUCTS: No significant abnormality. Common bile duct measures 5 mm. RIGHT KIDNEY: The right kidney measures 10.7 cm. Increased cortical echogenicity. FREE FLUID: None. ADDITIONAL FINDINGS: None. IMPRESSION: 1. Hepatomegaly with diffusely heterogeneous appearance of the liver, most commonly seen with steatos is. 2. Prior cholecystectomy. Scribed by: Laura Mckeon RDMS, RVT Scribed: 06/09/2021 10:09 AM I have reviewed the images, agree with this report, and edited this report as needed. Signer Name: Lior Branch MD Signed: 06/09/2021 11:18 AM Workstation Name: [email or web address]
--- NOTE | 2021-06-09 12:25 | Progress Note ---
Assessment and Plan Assessment and plan: This is a 41-year-old male with acute hypoxic respiratory failure, elevated D- dimer, acute kidney injury, hyperkalemia and transaminitis Neuro: Acute metabolic encephalopathy -CT head and C-spine negative for acute process -TSH WNL -Patient is sedated with propofol and fentanyl -Goal RASS 0 to -1 -Seroquel -Avoid delirium -Reorientation as needed -Maintain sleep-wake cycle Cardio: Hypotension, possible CHF, h/o HTN -Cardiology consulted, appreciate recommendations -vasopressor support with Levophed, vasopressin, and phenylepi -Goal MAP>65 -echocardiogram showed mild to moderate dilated right heart chambers, LVEF 55% -Cardiology recommends conservative cardiac management -Patient currently not hypertensive -ProBNP 42048 -Diuretics discontinued d/t worsening renal function -Blood pressure monitoring via ibrahima -Trend CVP q shift -Chest US completed-> f/u results Respiratory: Acute possibly on chronic hypoxemic and hypercapnic respiratory failure, ARDS, h/o sleep apnea -CCM/pulmonary consulted, appreciate recommendations -Patient intubated on 05/23 for airway protection in the ED -Intubated with 7.50 ETT at 24 the lips -pm ABG noted on 95% -A.m. vent settings: Assist control tidal volume 500, rate 30, peep 15, 85% FiO2 -See RT notes for titration -VAP bundle GI: Transaminitis, morbid obesity -NTR consult for tube feedings -Tube feedings Nepro at 45 mL's per hour -Free water flush 100 mL/4hr -24-hour +4408 -Presented with elevated LFTs which are now improving -Trend LFTs -Amylase 101, lipase 86 -Abd US shows hepatomegaly with diffuse heterogenous apperence; prior cholecystectomy : Acute renal failure secondary to vasomotor nephropathy, hyperkalemia -Nephrology consulted, appreciate recommendations -Garcia catheter for strict intake and output -Avoid nephrotoxic medications -Renally dose medications -Renal calculated at 0.41% indicating prerenal -Patient admitted with volume overload (proBNP 77289) -s/p IVF -Trend BMP -vascath to be placed today -family consented to procedure ID: CAP, MRSA is tracheal aspirate -CT C-spine showed right upper lobe pneumonia -Antibiotic therapy with cefepime and azithromycin -Currently on Cefepime (06/07) and Linezolid started 06/05 -Monitor fever and WBC curve -05/23 UC, tracheal aspirate no growth to date -05/23 blood culture with coag negative staph in 1 of 2 bottles -ID consulted, appreciate recommendations Endo: NAD -Accu-Cheks every 6 while on tube feedings -No indication for SSI at this time -Avoid hypoglycemia -Target blood glucose while critically ill less than 180 Heme: Elevated D-dimer, h/o PE/DVT -VQ scan unable to be performed due to patient being intubated -CTA head unable to be performed due to renal function and size -restarted on home eliquis -SCDs to bilateral lower extremity while in bed -Echocardiogram shows no right heart strain -Trend CBC -Transfuse for hemoglobin less than 7 -Bilateral lower extremity Doppler ultrasound negative for DVT The high probability of a clinically significant, sudden or life threatening deterioration of the [renal/pulm] system(s) required my full and direct attention, intervention and personal management. The aggregate critical care jamie e was [60] minutes. This time is in addition to time spent performing reported procedures but includes the following: [x] Data Review and interpretation [x] Patient assessment and monitoring of vital signs [x] Documentation [x] Medication orders and management Disposition Plan: icu Total Time Spent with Patient (Minutes): 60 History Interval history: This is a 41-year-old male who has HTN, REVA and morbid obesity who presents to the emergency department on 05/23 via EMS for severe respiratory distress. Upon EMS arrival patient was found to be altered and sedated from bed to floor and reports noncompliant with CPAP/BiPAP. Patient received bag valve mask ventilation via nasal trumpet with EMS on route. Work-up in the emergency department included a CXR which showed [place] [address], elevated troponin at 0.038, elevated D-dimer, acute kidney injury, hyperkalemia and transaminitis. Patient was intubated in the emergency department for for airway protection as he was reported to be obtunded and without a gag reflex. Patient did receive Narcan in the field by EMS however there was no reported affect. Hospital course to date: 05/24/2021: Patient intubated and sedated. VQ scan ordered secondary to elevated D-dimer. Cardiology consulted secondary to elevated troponin and elevated BNP. Echocardiogram ordered and pending. 05/25/2021: Patient still intubated. Responsive to commands. Hypotensive, norepinephrine increased to 15mcg. Unable to get V/Q scan due to body habitus. 05/26: Overnight patient experienced desaturation to the 80s and FiO2 was increas ed. This morning on ABG patient exhibited hypoxemia and FiO2 was unchanged. [facility] later increased PEEP and decrease FiO2. Nephrology was consulted due to no recovery in renal function noted. Urine lites were ordered. Hyperkalemia treated medically. 05/27: Patient remains sedated on fentanyl and propofol, [facility] will taper Solu- Medrol and repeat ABG in 1900. Patient received 40 mg of Lasix x1. Slight improvement to renal function noted 05/28: [facility] has started revatio for pulmonary hypertension, we will repeat Lasix today as patient had improvement in renal function. No acute events reported o vernight. 05/29: 1900 ABG with improved hypoxia, good UOP noted from lasix. Repeat labs for am. no acute events reported overnight 05/30: FWF decreased. Garcia catheter replaced due to sediment. Family updated today at bedside. 05/31: noted to have persistent tachycardia, given fent bolus without im provement. EKG showed ST, passive leg raise by RN showed decrease in tachycardia therefore given LR. Noted increase in Cr today. MIVF for 2 liters started by [facility]. 06/01/21- Remains intubated, sedation was increased this am due to agitation, Levo was initiated due to hypotension. Patient remains on IVF, D/C once current bag is completed. D/w [facility] plan to gently wean vent setting for SPO2 goal above 92%. 06/02/21- Patient remains on the vent, on max support this am. Per RN patient desated this am after he was turned, SPO2 was sustaining in the low 80s. Patient is also spiking temp, TMAX 101 this am, WBC wnl. Orders placed for stat CXR, blood cultureX2, and procal. Will hold off on AbX for now. Will continue to trend CBC, am labs ordered 06/03/21- Patient remains on the vent and sedated. High triglyceride level this am, propofol stopped and seroquel added BID. No fever overnight, wbcs remains stable, pending B.cult result. Continue to trend CBC 06/04/21- Patient remains on the vent, no longer on sedation. Easily arousable, follow commands at time. Persistent fever, wbcs remains stable, B.cultX2 pending, procal normal, ID consulted. 06/05/21- Patient remains on the vent on fentanyl gtt RASS -1. Back up to 100% Fio2 due to low SPO2 overnight, this am ABG noted, plan to wean FIO2 for a SPO2 goal abover 90%. Febrile overnight, continue current IV Abx per ID. 06/06/21- Patient remains on the vent on fentanyl gtt RASS 0 to -1. Back on pressors overnight due to hypotension, febrile TMAX 101.1, patient is on IV ABx and ID is on the case. Worsening in kidney function with hyperkalemia is also noted, X1 dose of kayaxalate given. Will continue to monitor renal function and electrolytes. Mom and sister at the bedside, were update on patient's conditions, all questions and concerns were voiced at this time. 06/07/21- Patient remains on the vent. In critical condition this am, on three pressors with severe metabolic acidosis, MAP remains in the 50s. Will placed Artline for hemodynamic monitoring. Worsen kidney function with hyperkalemia. Hyperkalemia was treated per protocol, d/w nephro plan for possible HD today. Will repeat BMP in 4hours. Sputum culture is positive for MRSA, due to kidney function VAnco was switched to Zyvox. will continue to monitor renal function and electrolytes. 06/08: Awaiting family decision regarding hemodialysis, renal function continues to worsen with decreased urine output, patient will continue cefepime and linezolid, chest ultrasound ordered with repeat ABG at 9 PM. 06/09: Family is agreeable to place vascath and for HD. Nephro aware. Remains on levo/vaso/colten for BP support. Hospitalist Physical - Constitutional Vitals: Temp Pulse Resp BP Pulse Ox 98.7 F 110 H 32 H 75/40 96 06/09/21 08:00 06/09/21 11:34 06/09/21 10:30 06/09/21 11:34 06/09/21 11:34 General appearance: Present: no acute distress, obese, other (Intubated and sedated) HEART Score - HEART Score Troponin: Troponin T 0.038 ng/mL (0.00-0.029) H 05/23/21 15:09 Results - Labs CBC & Chem 7: 06/08/21 04:21 06/09/21 04:00 Labs: Laboratory Last Values WBC 15.6 K/mm3 (4.5-11.0) H 06/08/21 04:21 RBC 3.20 M/mm3 (3.65-5.03) L 06/08/21 04:21 Hgb 9.4 gm/dl (11.8-15.2) L 06/08/21 04:21 Hct 30.4 % (35.5-45.6) L 06/08/21 04:21 MCV 95 fl (84-94) H 06/08/21 04:21 MCH 29 pg (28-32) 06/08/21 04:21 MCHC 31 % (32-34) L 06/08/21 04:21 RDW 18.6 % (13.2-15.2) H 06/08/21 04:21 Plt Count 171 K/mm3 (140-440) 06/08/21 04:21 Lymph % (Auto) 6.2 % (13.4-35.0) L 06/03/21 04:10 [place] % (Auto) 13.1 % (0.0-7.3) H 06/03/21 04:10 Eos % (Auto) 3.2 % (0.0-4.3) 06/03/21 04:10 Baso % (Auto) 0.4 % (0.0-1.8) 06/03/21 04:10 Lymph # (Auto) 0.5 K/mm3 (1.2-5.4) L 06/03/21 04:10 [place] # (Auto) 1.1 K/mm3 (0.0-0.8) H 06/03/21 04:10 Eos # (Auto) 0.3 K/mm3 (0.0-0.4) 06/03/21 04:10 Baso # (Auto) 0.0 K/mm3 (0.0-0.1) 06/03/21 04:10 Add Manual Diff Complete 05/24/21 04:55 Total Counted 100 05/24/21 04:55 Seg Neutrophils % Hockey Instructor 06/03/21 04:10 Seg Neuts % (Manual) 97.0 % (40.0-70.0) H 05/24/21 04:55 Lymphocytes % (Manual) 3.0 % (13.4-35.0) L 05/24/21 04:55 Nucleated RBC % Not Reportable 05/24/21 04:55 Seg Neutrophils # 6.2 K/mm3 (1.8-7.7) 06/03/21 04:10 Seg Neutrophils # Man 8.4 K/mm3 (1.8-7.7) H 05/24/21 04:55 Band Neutrophils # 0.0 K/mm3 05/24/21 04:55 Lymphocytes # (Manual) 0.3 K/mm3 (1.2-5.4) L 05/24/21 04:55 Abs React Lymphs (Man) 0.0 K/mm3 05/24/21 04:55 Monocytes # (Manual) 0.0 K/mm3 (0.0-0.8) 05/24/21 04:55 Eosinophils # (Manual) 0.0 K/mm3 (0.0-0.4) 05/24/21 04:55 Basophils # (Manual) 0.0 K/mm3 (0.0-0.1) 05/24/21 04:55 Metamyelocytes # 0.0 K/mm3 05/24/21 04:55 Myelocytes # 0.0 K/mm3 05/24/21 04:55 Promyelocytes # 0.0 K/mm3 05/24/21 04:55 Blast Cells # 0.0 K/mm3 05/24/21 04:55 WBC Morphology Not Reportable 05/24/21 04:55 Hypersegmented Neuts Not Reportable 05/24/21 04:55 Hyposegmented Neuts Not Reportable 05/24/21 04:55 Hypogranular Neuts Not Reportable 05/24/21 04:55 Smudge Cells Not Reportable 05/24/21 04:55 Toxic Granulation Not Reportable 05/24/21 04:55 Toxic Vacuolation Not Reportable 05/24/21 04:55 Dohle Bodies Not Reportable 05/24/21 04:55 Pelger-Huet Anomaly Not Reportable 05/24/21 04:55 Cynthia Rods Not Reportable 05/24/21 04:55 Platelet Estimate Consistent w auto 05/24/21 04:55 Clumped Platelets Not Reportable 05/24/21 04:55 Plt Clumps, EDTA Not Reportable 05/24/21 04:55 Large Platelets Not Reportable 05/24/21 04:55 Giant Platelets Not Reportable 05/24/21 04:55 Platelet Satelliting Not Reportable 05/24/21 04:55 Plt Morphology Comment Not Reportable 05/24/21 04:55 RBC Morphology Not Reportable 05/24/21 04:55 Dimorphic RBCs Not Reportable 05/24/21 04:55 Polychromasia Not Reportable 05/24/21 04:55 Hypochromasia Not Reportable 05/24/21 04:55 Poikilocytosis Not Reportable 05/24/21 04:55 Anisocytosis 1+ 05/24/21 04:55 Microcytosis Not Reportable 05/24/21 04:55 Macrocytosis Not Reportable 05/24/21 04:55 Spherocytes Not Reportable 05/24/21 04:55 Pappenheimer Bodies Not Reportable 05/24/21 04:55 Sickle Cells Not Reportable 05/24/21 04:55 Target Cells Not Reportable 05/24/21 04:55 Tear Drop Cells Not Reportable 05/24/21 04:55 Ovalocytes Not Reportable 05/24/21 04:55 Helmet Cells Not Reportable 05/24/21 04:55 [place] Bodies Not Reportable 05/24/21 04:55 [place] Rings Not Reportable 05/24/21 04:55 [place] Cells Not Reportable 05/24/21 04:55 Bite Cells Not Reportable 05/24/21 04:55 Crenated Cell Not Reportable 05/24/21 04:55 Elliptocytes Not Reportable 05/24/21 04:55 Acanthocytes (Spur) Not Reportable 05/24/21 04:55 Rouleaux Not Reportable 05/24/21 04:55 Hemoglobin C Crystals Not Reportable 05/24/21 04:55 Schistocytes Not Reportable 05/24/21 04:55 Malaria parasites Not Reportable 05/24/21 04:55 Uli Bodies Not Reportable 05/24/21 04:55 Hem Pathologist Commnt No 05/24/21 04:55 PT 15.3 Sec. (12.2-14.9) H 05/29/21 13:40 INR 1.09 (0.87-1.13) 05/29/21 13:40 APTT 25.7 Sec. (24.2-36.6) 05/29/21 13:40 D-Dimer 4444.85 ng/mlDDU (0-234) H 05/23/21 15:09 ABG pH 7.291 pH Units (7.350-7.450) L 06/08/21 Unknown POC ABG pCO2 43.4 mmHg (32.0-48.0) 06/07/21 21:26 ABG pCO2 45.0 mm Hg 06/08/21 Unknown POC ABG pO2 72.3 mmHg (83-108) L 06/07/21 21: ABG pO2 78.8 mm Hg (80.0-90.0) L 06/08/21 Unknown POC ABG HCO3 19.9 06/07/21 21:26 ABG HCO3 21.2 mmol/L (20.0-26.0) 06/08/21 Unknown ABG O2 Saturation 94.8 % (95.0-99.0) L 06/08/21 Unknown ABG O2 Content 13.0 (0.0-44) 06/08/21 Unknown POC ABG Base Excess -6.6 06/07/21 21: ABG Base Excess -5.1 mmol/L (-2.0-3.0) L 06/08/21 Unknown ABG Hemoglobin 9.9 gm/dl (14.0-18.0) L 06/08/21 Unknown ABG Oxyhemoglobin 92.4 (94-98) L 06/07/21 21:26 ABG Carboxyhemoglobin 1.3 % (0.0-5.0) 06/08/21 Unknown ABG Methemoglobin 0.5 % (0.0-1.5) 06/08/21 Unknown ABG Sodium 136.8 mmol/L (136.0-145.0) 06/07/21 21:26 ABG Potassium 5.3 mmol/L (3.40-4.50) H 06/07/21 21:26 ABG Chloride 109.0 mmol/L (98-107) H 06/07/21 21:26 ABG Glucose 165 mg/dL (65-95) H 06/07/21 21:26 Oxyhemoglobin 93.1 % (95.0-99.0) L 06/08/21 Unknown Carboxyhemoglobin 0.2 (0.5-1.5) L 06/07/21 21:26 FiO2 95 % 06/08/21 Unknown FiO2 % 90.0 06/07/21 21:26 Sodium 138 mmol/L (137-145) 06/09/21 04:00 Potassium 4.9 mmol/L (3.6-5.0) 06/09/21 04:00 Chloride 101.3 mmol/L (98-107) 06/09/21 04:00 Carbon Dioxide 19 mmol/L (22-30) L 06/09/21 04:00 Anion Gap 23 mmol/L 06/09/21 04:00 BUN 84 mg/dL (9-20) H 06/09/21 04:00 Creatinine 3.7 mg/dL (0.8-1.3) H 06/09/21 04:00 Estimated GFR 22 ml/min 06/09/21 04:00 BUN/Creatinine Ratio 23 % 06/09/21 04:00 Glucose 124 mg/dL (75-100) H 06/09/21 04:00 POC Glucose 113 mg/dL (70-105) H 06/09/21 11:25 Lactic Acid 1.50 mmol/L (0.7-2.0) 05/23/21 15:09 Calcium 7.8 mg/dL (8.4-10.2) L 06/09/21 04:00 Phosphorus 5.90 mg/dL (2.5-4.5) H 06/09/21 04:00 Magnesium 2.30 mg/dL (1.7-2.3) 06/09/21 04:00 Total Bilirubin 2.30 mg/dL (0.1-1.2) H 06/09/21 04:00 AST 3183 units/L (5-40) H 06/09/21 04:00 ALT 4140 units/L (7-56) H 06/09/21 04:00 Alkaline Phosphatase 113 units/L (35-129) 06/09/21 04:00 Ammonia 30.0 umol/L (25-60) 05/24/21 04:55 Total Creatine Kinase 48 units/L (55-170) L 05/23/21 15:09 Troponin T 0.038 ng/mL (0.00-0.029) H 05/23/21 15:09 C-Reactive Protein 10.00 mg/dL (0.00-1.30) H 05/23/21 19:10 NT-Pro-B Natriuret Pep 40537 pg/mL (0-450) H 05/23/21 15:09 Total Protein 6.4 g/dL (6.3-8.2) 06/09/21 04:00 Albumin 2.1 g/dL (3.9-5) L 06/09/21 04:00 Albumin/Globulin Ratio 0.5 % 06/09/21 04:00 Triglycerides 164 mg/dL (2-149) H 06/09/21 04:45 Cholesterol 106 mg/dL (50-199) 05/23/21 15:09 LDL Cholesterol Direct 58 mg/dL (50-130) 05/23/21 15:09 HDL Cholesterol 29 mg/dL (40-59) L 05/23/21 15:09 Cholesterol/HDL Ratio 3.65 % 05/23/21 15:09 Amylase 101 units/L (27-131) 06/08/21 04:20 Lipase 86 units/L (13-60) H 06/08/21 04:20 Procalcitonin 0.82 ng/mL (<0.15) 06/02/21 13:53 TSH 2.380 mlU/mL (0.270-4.200) 05/23/21 15:09 Arterial Blood Glucose 165 mg/dL (65-95) H 06/07/21 21:26 Arterial Blood Ionized Calcium 5.3 mg/dL (4.6-5.3) 06/07/21 09:48 Urine Color Yellow (Yellow) 06/04/21 13:39 Urine Turbidity Turbid (Clear) 06/04/21 13:39 Urine pH 5.0 (5.0-7.0) 06/04/21 13:39 Ur Specific [place] 1.015 (1.003-1.030) 06/04/21 13:39 Urine Protein 100 mg/dl mg/dL (Negative) 06/04/21 13:39 Urine Glucose (UA) Neg mg/dL (Negative) 06/04/21 13:39 Urine Ketones Neg mg/dL (Negative) 06/04/21 13:39 Urine Blood Mod (Negative) 06/04/21 13:39 Urine Nitrite Neg (Negative) 06/04/21 13:39 Urine Bilirubin Neg (Negative) 06/04/21 13:39 Urine Urobilinogen 2.0 mg/dL (<2.0) 06/04/21 13:39 Ur Leukocyte Esterase Neg (Negative) 06/04/21 13:39 Urine WBC (Auto) 17.0 /HPF (0.0-6.0) H 06/04/21 13:39 Urine RBC (Auto) > 182.0 /HPF (0.0-6.0) 06/04/21 13:39 U Epithel Cells (Auto) 7.0 /HPF (0-13.0) 06/04/21 13:39 Urine Bacteria (Auto) 1+ /HPF (Negative) 05/23/21 Unknown Amorphous Crystals 3+ 06/04/21 13:39 Urine Mucus Few /HPF 06/04/21 13:39 Ur Yeast w Hyphae Few /HPF 06/04/21 13:39 Urine Yeast (Budding) 3+ /HPF 06/04/21 13:39 Urine Eosinophils 2+ (None Seen) 05/26/21 12:37 Urine Osmolality 612 Mosm/kg 05/26/21 Unknown Urine Creatinine 222.7 mg/dL (0.1-20.0) H 06/06/21 13:30 Protein/Creatinin Ratio 1.01 05/26/21 12:37 Urine Sodium 18 mmol/L 06/06/21 13:30 Urine Potassium 45.15 mmol/L 05/26/21 Unknown Urine Urea Nitrogen 989 05/26/21 Unknown Urine Total Protein 80 mg/dL (5-11.8) H 05/26/21 12:37 Nasal Screen MRSA (PCR) Positive (Negative) 05/30/21 12:00 Salicylates < 0.3 mg/dL (2.8-20.0) L 05/23/21 15:09 Urine Opiates Screen Negative 05/23/21 Unknown Urine Methadone Screen Negative 05/23/21 Unknown Acetaminophen 5.0 ug/mL (10.0-30.0) L 05/23/21 15:09 Ur Barbiturates Screen Negative 05/23/21 Unknown Ur Phencyclidine Scrn Negative 05/23/21 Unknown Ur Amphetamines Screen Negative 05/23/21 Unknown U Benzodiazepines Scrn Negative 05/23/21 Unknown Urine Cocaine Screen Negative 05/23/21 Unknown U Marijuana (THC) Screen Negative 05/23/21 Unknown Drugs of Abuse Note Disclamer 05/23/21 Unknown Plasma/Serum Alcohol < 0.01 % (0-0.07) 05/23/21 15:09 Coronavirus (PCR) Negative (Negative) 05/23/21 Unknown Blood Type O POSITIVE 05/23/21 15:01 Antibody Screen Negative 05/23/21 15:01 Garcia/IV: Voiding Method Indwelling Catheter Active Medications - Current Medications Current Medications: Generic Name Dose Route Start Last Admin Trade Name Freq PRN Reason Stop Dose Admin Acetaminophen 650 mg 05/23/21 20:42 06/06/21 22:42 Acetaminophen 325 Mg Tab PO 650 mg Q4H PRN Administration Pain MILD(1-3)/Fever >100.5/CASTORENA Albuterol 2.5 mg 05/23/21 21:11 Albuterol 2.5 Mg/3 Ml Nebu IH Q4HRT PRN Shortness Of Breath Albuterol/Ipratropium 1 ampul 05/29/21 08:00 06/09/21 09:12 Ipratropium/Albuterol Sulfate 3 Ml Ampul.Neb IH 1 ampul TIDRT ROSEMARIE Administration Lipase/Protease/Amylase 1 each 05/24/21 10:14 Lipase 10,500/Protease 25,000/Amylase 43,750 (Units) Dr Higgins FEEDTUBE PRN PRN For Clogged Feeding Tube Apixaban 2.5 mg 05/29/21 13:00 06/09/21 10:21 Apixaban 2.5 Mg Tab PO 2.5 mg Q12HR ROSEMARIE Administration Protocol Dextrose 50 ml 06/08/21 10:33 Dextrose 50% In Water (25gm) 50 Ml Syringe IV Q30MIN PRN Hypoglycemia Protocol Famotidine 10 mg 06/06/21 22:00 06/09/21 10:22 Famotidine 20 Mg Tab FEEDTUBE 10 mg BID ROSEMARIE Administration Hydrophilic Ointment 1 applic 05/23/21 12:34 Lip Therapy Vaseline TP Q2HR PRN Dry Lips Fentanyl Citrate 2,000 mcg in 100 mls @ 8.528 mls/hr 05/23/21 13:00 06/08/21 20:00 Fentanyl Drip Premix IV 0.6 mcg/kg/hr TITR ROSEMARIE 5.117 mls/hr Titration Protocol 1 MCG/KG/HR Cefepime HCl 2 gm in 100 mls @ 200 mls/hr 06/07/21 04:00 06/09/21 04:55 Cefepime/Ns 2 Gm/100 Ml IV 200 mls/hr Q24H ROSEMARIE Administration Protocol Sodium Chloride 500 mls @ 1 mls/hr 06/06/21 13:40 06/06/21 14:18 Nacl 0.9% 500 Ml IV 1 mls/hr DIRECT PRN Administration ARTERIAL LINE FLUSH Vasopressin 20 unit/ Sodium 101 mls @ 9.09 mls/hr 06/06/21 15:00 06/09/21 08:14 Chloride IV 0.03 units/min TITR ROSEMARIE 9.09 mls/hr Administration Protocol 0.03 UNITS/MIN Phenylephrine HCl 100 mg/ 100 mls @ 3 mls/hr 06/06/21 19:00 06/09/21 08:15 Sodium Chloride IV 110 mcg/min TITR ROSEMARIE 6.6 mls/hr Administration Protocol 50 MCG/MIN Sodium Bicarbonate 150 meq/ 1,150 mls @ 100 mls/hr 06/07/21 08:00 06/09/21 08:16 Dextrose IV 100 mls/hr DIRECT ROSEMARIE Administration NORepinephrine/NS 8 MG-250 ML 8 mg in 250 mls @ 3.75 mls/hr 06/07/21 09:00 06/09/21 10:23 Norepinephrine/Ns 8 Mg-250 Ml (Double Conc) IV 20 mcg/min TITRATE ROSEMARIE 37.5 mls/hr Administration Protocol 2 MCG/MIN Linezolid 600 mg in 300 mls @ 300 mls/hr 06/07/21 14:00 06/09/21 02:55 Zyvox 600mg/300ml IV 300 mls/hr Q12H ROSEMARIE Administration Protocol Propofol 1,000 mg in 100 mls @ 3.018 mls/hr 06/07/21 15:00 06/08/21 20:00 Diprivan 10 Mg/Ml IV 5 mcg/kg/min TITR ROSEMARIE 3.018 mls/hr Titration Protocol 5 MCG/KG/MIN Insulin Human Regular 0 units 06/08/21 12:00 06/09/21 08:07 Insulin Regular, Human 100 Units/1 Ml SUB-Q Not Given Q6H COUNTS INCLUDE 234 BEDS AT THE [facility] Protocol Multi-Ingred Cream/Lotion/Oil/Oint 1 applic 05/23/21 12:34 05/30/21 22:14 Mineral Oil/Petrolatum, White Ophth Oint 3.5 Gm OU 1 applic Q4HR PRN Administration Dry Eye(s) Ondansetron HCl 4 mg 05/23/21 20:42 Ondansetron 4 Mg/2 Ml Inj IV Q8H PRN Nausea And Vomiting Quetiapine Fumarate 100 mg 06/03/21 22:00 06/09/21 10:21 Quetiapine 100 Mg Tab PO 100 mg BID ROSEMARIE Administration Senna/Docusate Sodium 1 tab 05/23/21 22:00 06/09/21 10:21 Sennosides/Docusate Sodium 8.6/50 Mg Tab FEEDTUBE 1 tab BID ROSEMARIE Administration Simple Syrup 15 ml 05/24/21 10:14 Simple Syrup 15 Ml FEEDTUBE PRN PRN Hypoglycemia Simple Syrup 30 ml 05/24/21 10:14 Simple Syrup 15 Ml FEEDTUBE PRN PRN Hypoglycemia Sodium Bicarbonate 325 mg 05/24/21 10:14 Sodium Bicarbonate 325 Mg Tab FEEDTUBE PRN PRN For Clogged Feeding Tube Sodium Chloride 10 ml 05/23/21 22:00 06/09/21 10:22 Sodium Chloride 0.9% 10 Ml Flush Syringe IV 10 ml BID ROSEMARIE Administration Sodium Chloride 10 ml 05/23/21 20:42 Sodium Chloride 0.9% 10 Ml Flush Syringe IV PRN PRN LINE FLUSH Nutrition/Malnutrition Assess - Dietary Evaluation Nutrition/Malnutrition Findings: Nutrition Notes Start: 05/24/21 09:53 Freq: Status: Active Protocol: Document 06/02/21 16:14 GB (Rec: 06/02/21 16:23 GB [id number]) Nutrition Notes Initial or Follow up Reassessment Current Diagnosis Acute Kidney Injury, Hypertension,Respiratory Failure Other Pertinent Diagnosis SIRS, encephalopathy, pneu, transaminitis Current Diet NPO, Tube Feeding Nepro @ 45m/ hr Labs/Tests 06/02: BUN 61, Creatinine 1.7, glucose 119 Pertinent Medications Fentanyl Citrate, Norepenephrin/NS 8 Mg 250, Propofol 20.466 ml/hr (540kcal ) Height 5 ft 8 in Weight 100.6 kg [place] Body Weight (kg) 70.00 BMI 33.7 Weight change and time frame Weights recorded to nursing flow sheet - that does not tie to I/O weight results documentation. Weight taken on bed 06/02 100. 6kg, bed changed out on 05/29 r /t not working. Unsure if current weight or pervious weight is accurate. Weight Status Obese Subjective/Other Information MD notes 06/02: Continue TF@ goal as tolerated, persistent lower lobe predominant airspace disease, slightly improved. Per discussion with RN: Bed was changed out on 05/29 due to not working. Weight taken on current bed 100.6kg 06/02. Unsure if bed was zero'd or if weight from previous bed was accurate. Recommend reweigh for weight confirmation. Pt does not appear to have lost significant weight. Also discussed goal rate of TF. Goal is 45m/hr and rate was recorded at 55ml/hr. TF rate now at 45ml/hr. Intubation/Sedation: continues Last BM: 05/30 Percent of energy/protein needs met: TF at goal meets 75% or greater of minimal estimated energy needs Burn Absent Trauma Absent GI Symptoms Other Difficulty In Swallowing Food Allergy No Current % PO Other Minimum of two criteria No #1 Nutrition Diagnosis Swallowing difficulty Comments: 05/25: intubation/sedation continues. TF started 05/28: intubation/sedation continues. TF Nepro @ goal 45ml/hr 06/02: intubation/sedation continues. TF Nepro @ 45m/hr Etiology ARF As Evidenced by Signs and Symptoms Intubated/sedated Diagnosis Progress(for reassessment Continues documentation) Is patient on ventilator? Yes Is Patient Ambulatory and/or Out of Bed No REE-([facility]-confined to bed) 0323.516 Kcal/Kg value to use for calculation 20 Approximate Energy Requirements Using 2012 kcal/Kg Calculation Used for Recommendations Kcal/kg Additional Notes Protein: 1-1.2 g/kg @ 100k-120g Fluid: 1 ml/kcal or per MD Nutrition Intervention Change Diet Order: Continue NPO, Tube feeding Nutrition Support: Nepro 1.8 at 45 ml/hr Flush 175 ml q4h or per MD Total free water: TF@goal + flush = 1835ml Kcal 1,950 Protein (gm) 88 Carbohydrates (gm) 174 Fat (gm) 104 Fluid (mL) 788 Fiber (gm) 14 % RDI: 98%kcal / 88%pro Add Supplement/Snack (indicate name/kcal n/a /protein ) Goal #1 Meet at least 75% or greater of EEN via TF 05/25: met, continues 05/28: met, continues 06/02: met, continues Goal #2 TF (Nepro) at goal rate (45ml/ hr) by f/u 05/25: TF started 05/28: TF at goal. met, continues 06/02: met, continues Anticipated Discharge Needs: Unable to determine at this time Follow-Up By: 06/09/21 Additional Comments f/u: TF tolerance, weight, vent status
--- NOTE | 2021-06-09 12:48 | Progress Note ---
Assessment and Plan Cultures: Blood culture 05/23/2021 1 bottle coag negative staph Urine culture 05/23/2021 no growth Blood culture 06/02/2021 no growth so far Urine culture 06/04/2021 no growth so far 06/04/2021 tracheal aspirate culture: MRSA, Acinetobacter A/P: 41-year-old man past medical history obesity presented to hospital in respiratory failure: #Septic shock: Likely secondary to dense right lower lobe pneumonia, cultures with MRSA and Acinetobacter - on abx. Urinalysis without convincing evidence of infection. #Acute hypoxic respiratory failure: COVID-19 negative. Currently on the vent. #Shock liver #FERMIN: renally dose medications. #Coag negative Staph bacteremia: likely contaminant. Recs: Continue renally dosed cefepime Continue IV linezolid Poor prognosis, goals of care discussion Jonathan Brasher MD, FACP [facility] ([facility]) O: [phone] F: [phone] Subjective Date of service: 06/09/21 Principal diagnosis: Acute hypoxemic and hypercapnic resp failure; PUI COVID-19; Pneumonia; FERMNI Interval history: Remains critically ill on the vent. On multiple pressors. Objective - Exam Narrative Exam: Physical Exam: Constitutional: sedated, intubated, on the vent. Morbidly obese. Head, Ears, Nose: Normocephalic, atraumatic. External ears, nose normal Eyes: Conjunctivae/corneas clear. No icterus. No ptosis. Neck: intubated Oral: intubated Cardiovascular: S1, S2 + Respiratory: AE fair bilaterally and equal GI: Soft, bowel sounds absent Musculoskeletal: No pedal edema, no cyanosis. Skin: No rash or abscess Hem/Lymphatic: No palpable cervical or supraclavicular nodes. No lymphangitis Psych: no agitation Neurological: sedated, intubated, on the vent, exam limited - Constitutional Vitals: Vital Signs Temp Pulse Resp BP Pulse Ox 98.1 F 110 H 30 H 127/59 95 06/09/21 12:00 06/09/21 12:30 06/09/21 12:30 06/09/21 12:30 06/09/21 12:30 Temperature -Last 24 Hours Temperature 98.1 F Temperature 98.7 F Temperature 98.8 F Temperature 99.2 F Temperature 99.0 F Temperature 98.8 F - Labs CBC & Chem 7: 06/08/21 04:21 06/09/21 04:00 Labs: Abnormal lab results 06/08/21 06/08/21 06/08/21 Range/Units 16:59 17:39 21:00 ABG pH 7.282 L (7.350-7.450) pH Units ABG pO2 91.3 H (80.0-90.0) mm Hg ABG Base Excess -5.2 L (-2.0-3.0) mmol/L ABG Hemoglobin 9.3 L (14.0-18.0) gm/dl Carbon Dioxide (22-30) mmol/L BUN (9-20) mg/dL Creatinine (0.8-1.3) mg/dL Glucose (75-100) mg/dL POC Glucose 118 H 121 H (70-105) mg/dL Calcium (8.4-10.2) mg/dL Phosphorus (2.5-4.5) mg/dL Total Bilirubin (0.1-1.2) mg/dL AST (5-40) units/L ALT (7-56) units/L Albumin (3.9-5) g/dL Triglycerides (2-149) mg/dL 06/09/21 06/09/21 06/09/21 Range/Units 04:00 04:45 05:57 ABG pH (7.350-7.450) pH Units ABG pO2 (80.0-90.0) mm Hg ABG Base Excess (-2.0-3.0) mmol/L ABG Hemoglobin (14.0-18.0) gm/dl Carbon Dioxide 19 L (22-30) mmol/L BUN 84 H (9-20) mg/dL Creatinine 3.7 H (0.8-1.3) mg/dL Glucose 124 H (75-100) mg/dL POC Glucose 121 H (70-105) mg/dL Calcium 7.8 L (8.4-10.2) mg/dL Phosphorus 5.90 H (2.5-4.5) mg/dL Total Bilirubin 2.30 H (0.1-1.2) mg/dL AST 3183 H (5-40) units/L ALT 4140 H (7-56) units/L Albumin 2.1 L (3.9-5) g/dL Triglycerides 164 H (2-149) mg/dL 06/09/21 Range/Units 11:25 ABG pH (7.350-7.450) pH Units ABG pO2 (80.0-90.0) mm Hg ABG Base Excess (-2.0-3.0) mmol/L ABG Hemoglobin (14.0-18.0) gm/dl Carbon Dioxide (22-30) mmol/L BUN (9-20) mg/dL Creatinine (0.8-1.3) mg/dL Glucose (75-100) mg/dL POC Glucose 113 H (70-105) mg/dL Calcium (8.4-10.2) mg/dL Phosphorus (2.5-4.5) mg/dL Total Bilirubin (0.1-1.2) mg/dL AST (5-40) units/L ALT (7-56) units/L Albumin (3.9-5) g/dL Triglycerides (2-149) mg/dL
--- NOTE | 2021-06-09 13:04 | Progress Note ---
Assessment and Plan Acute respiratory failure intubated on the vent an echo shows mild to moderate dilated right heart chambers, mild to moderate TR, with at least moderate pulmonary HTN. RVSP 53 mmHG. Normal LVEF 55%. Septic shock Renal failure Morbidly obese Supportive cardiac management. Subjective Date of service: 06/09/21 Principal diagnosis: Acute hypoxemic and hypercapnic resp failure; PUI COVID-19; Pneumonia; FERMIN Interval history: Pt remains sedated, on mechanical ventilation and on multiple pressors for support. Objective Vital Signs Temp Pulse Pulse Pulse Resp Resp BP 06/09/21 12:30 110 H 30 H 127/59 06/09/21 12:15 109 H 30 H 132/57 06/09/21 12:00 98.1 F 109 H 30 H 128/51 06/09/21 11:45 110 H 30 H 125/57 06/09/21 11:34 110 H 75/40 06/09/21 11:30 113 H 30 H 130/51 06/09/21 11:15 112 H 21 133/59 06/09/21 11:00 112 H 19 129/58 06/09/21 10:45 115 H 22 136/56 06/09/21 10:30 115 H 32 H 116/49 06/09/21 10:16 100 H 30 H 171/80 06/09/21 10:00 83 30 H 117/50 06/09/21 09:45 104 H 29 H 123/61 06/09/21 09:30 105 H 30 H 111/60 06/09/21 09:16 105 H 30 H 111/60 06/09/21 09:12 108 H 30 H 06/09/21 09:11 106 H 94/48 06/09/21 09:00 105 H 30 H 97/61 06/09/21 08:45 105 H 30 H 110/59 06/09/21 08:30 104 H 30 H 108/63 06/09/21 08:15 107 H 30 H 120/54 06/09/21 08:09 111 H 30 H 06/09/21 08:00 98.7 F 111 H 30 H 06/09/21 07:45 107 H 30 H 118/55 06/09/21 07:30 107 H 30 H 116/50 06/09/21 07:15 108 H 30 H 128/59 06/09/21 07:00 108 H 29 H 128/54 06/09/21 06:45 109 H 30 H 126/56 06/09/21 06:30 109 H 30 H 127/54 06/09/21 06:15 110 H 30 H 129/57 06/09/21 06:00 110 H 30 H 126/59 06/09/21 05:45 108 H 30 H 138/55 06/09/21 05:30 110 H 30 H 130/53 06/09/21 05:15 110 H 30 H 125/44 06/09/21 05:00 109 H 30 H 124/46 06/09/21 04:45 110 H 30 H 119/40 06/09/21 04:30 110 H 30 H 143/62 06/09/21 04:15 120 H 31 H 128/62 06/09/21 04:11 109 H 80/65 06/09/21 04:00 98.8 F 109 H 112 H 30 H 108/44 06/09/21 03:45 109 H 18 136/60 06/09/21 03:30 108 H 14 134/51 06/09/21 03:15 112 H 21 127/58 06/09/21 03:00 107 H 22 124/55 06/09/21 02:45 107 H 30 H 118/50 06/09/21 02:30 108 H 27 H 119/50 06/09/21 02:15 108 H 29 H 119/50 06/09/21 02:00 114 H 26 H 110/53 06/09/21 01:45 109 H 11 L 121/50 06/09/21 01:30 108 H 14 117/49 06/09/21 01:15 109 H 15 120/48 06/09/21 01:00 110 H 16 117/47 06/09/21 00:45 110 H 28 H 114/52 06/09/21 00:30 110 H 27 H 117/52 06/09/21 00:15 110 H 30 H 115/46 06/09/21 00:00 99.2 F 112 H 112 H 28 H 116/48 06/08/21 23:52 111 H 80/67 06/08/21 23:45 110 H 21 109/43 06/08/21 23:30 111 H 21 118/45 06/08/21 23:15 113 H 29 H 108/47 11/15/21 23:06 115 H 29 H 133/59 06/08/21 23:00 121 H 22 133/59 06/08/21 22:45 112 H 30 H 112/45 06/08/21 22:30 112 H 30 H 113/44 06/08/21 22:15 117 H 35 H 123/64 06/08/21 22:00 112 H 30 H 101/41 06/08/21 21:50 06/08/21 21:45 113 H 29 H 111/40 06/08/21 21:30 116 H 25 H 107/43 06/08/21 21:15 112 H 30 H 111/48 06/08/21 21:00 113 H 30 H 118/46 06/08/21 20:46 121 H 22 118/50 06/08/21 20:30 114 H 29 H 96/36 06/08/21 20:16 113 H 27 H 101/42 06/08/21 20:00 99.0 F 120 H 112 H 29 H 101/42 06/08/21 19:46 113 H 30 H 97/37 06/08/21 19:30 112 H 30 H 97/37 06/08/21 19:29 112 H 30 H 06/08/21 19:25 113 H 85/58 06/08/21 19:16 113 H 30 H 117/61 06/08/21 19:00 124 H 33 H 117/61 06/08/21 18:46 114 H 30 H 97/46 06/08/21 18:30 122 H 30 H 106/51 06/08/21 18:16 115 H 29 H 97/46 06/08/21 18:00 114 H 30 H 72/37 06/08/21 17:46 113 H 30 H 110/44 06/08/21 17:30 115 H 31 H 110/44 06/08/21 17:16 113/55 06/08/21 17:00 117 H 30 H 113/55 06/08/21 16:46 118 H 30 H 99/49 06/08/21 16:30 118 H 30 H 105/54 06/08/21 16:16 116 H 30 H 108/46 06/08/21 16:00 98.8 F 116 H 112 H 9 L 108/46 06/08/21 15:46 108/46 11/15/21 15:30 82 34 H 108/46 06/08/21 15:16 114 H 30 H 108/46 06/08/21 15:00 123 H 30 H 130/66 06/08/21 14:46 112 H 30 H 108/52 06/08/21 14:30 114 H 30 H 107/56 06/08/21 14:23 111 H 30 H 06/08/21 14:16 113 H 30 H 100/48 06/08/21 14:00 111 H 30 H 108/52 06/08/21 13:46 111 H 30 H 100/48 06/08/21 13:30 111 H 30 H 100/48 06/08/21 13:16 116 H 30 H 105/49 Pulse Ox 06/09/21 12:30 95 06/09/21 12:15 95 06/09/21 12:00 93 06/09/21 11:45 94 06/09/21 11:34 96 06/09/21 11:30 94 06/09/21 11:15 92 06/09/21 11:00 91 06/09/21 10:45 91 06/09/21 10:30 93 06/09/21 10:16 97 06/09/21 10:00 91 06/09/21 09:45 93 06/09/21 09:30 91 06/09/21 09:16 94 06/09/21 09:12 06/09/21 09:11 91 06/09/21 09:00 92 06/09/21 08:45 93 06/09/21 08:30 98 06/09/21 08:15 96 06/09/21 08:09 98 06/09/21 08:00 92 06/09/21 07:45 92 06/09/21 07:30 90 06/09/21 07:15 91 06/09/21 07:00 90 06/09/21 06:45 89 06/09/21 06:30 92 06/09/21 06:15 93 06/09/21 06:00 92 06/09/21 05:45 100 06/09/21 05:30 87 06/09/21 05:15 88 06/09/21 05:00 89 06/09/21 04:45 94 06/09/21 04:30 97 06/09/21 04:15 95 06/09/21 04:11 92 06/09/21 04:00 88 06/09/21 03:45 95 06/09/21 03:30 96 06/09/21 03:15 100 06/09/21 03:00 98 06/09/21 02:45 94 06/09/21 02:30 93 06/09/21 02:15 93 06/09/21 02:00 96 06/09/21 01:45 94 06/09/21 01:30 93 06/09/21 01:15 93 06/09/21 01:00 93 06/09/21 00:45 93 06/09/21 00:30 93 06/09/21 00:15 92 06/09/21 00:00 91 06/08/21 23:52 93 06/08/21 23:45 93 06/08/21 23:30 91 06/08/21 23:15 91 06/08/21 23:06 90 06/08/21 23:00 98 06/08/21 22:45 91 06/08/21 22:30 92 06/08/21 22:15 96 06/08/21 22:00 93 06/08/21 21:50 93 06/08/21 21:45 93 06/08/21 21:30 92 06/08/21 21:15 92 06/08/21 21:00 90 06/08/21 20:46 92 06/08/21 20:30 93 06/08/21 20:16 96 06/08/21 20:00 95 06/08/21 19:46 89 06/08/21 19:30 94 06/08/21 19:29 06/08/21 19:25 93 06/08/21 19:16 94 06/08/21 19:00 95 06/08/21 18:46 96 06/08/21 18:30 90 06/08/21 18:16 97 06/08/21 18:00 100 06/08/21 17:46 100 06/08/21 17:30 97 06/08/21 17:16 96 06/08/21 17:00 91 06/08/21 16:46 93 06/08/21 16:30 93 06/08/21 16:16 97 06/08/21 16:00 96 06/08/21 15:46 100 06/08/21 15:30 98 06/08/21 15:16 91 06/08/21 15:00 91 06/08/21 14:46 93 06/08/21 14:30 94 06/08/21 14:23 06/08/21 14:16 93 06/08/21 14:00 93 06/08/21 13:46 93 06/08/21 13:30 91 06/08/21 13:16 91 - Physical Examination General: Other (on mechanical ventilator) Cardiac: Positive: Tachycardia - Labs and Meds Cardiac Enzymes 06/09/21 Range/Units 04:00 AST 3183 H (5-40) units/L Lipids 06/09/21 Range/Units 04:45 Triglycerides 164 H (2-149) mg/dL Comprehensive Metabolic Panel 06/09/21 Range/Units 04:00 Sodium 138 (137-145) mmol/L Potassium 4.9 (3.6-5.0) mmol/L Chloride 101.3 (98-107) mmol/L Carbon Dioxide 19 L (22-30) mmol/L BUN 84 H (9-20) mg/dL Creatinine 3.7 H (0.8-1.3) mg/dL Glucose 124 H (75-100) mg/dL Calcium 7.8 L (8.4-10.2) mg/dL AST 3183 H (5-40) units/L ALT 4140 H (7-56) units/L Alkaline Phosphatase 113 (35-129) units/L Total Protein 6.4 (6.3-8.2) g/dL Albumin 2.1 L (3.9-5) g/dL - Allied health notes Allied health notes reviewed: nursing
[2021-06-09] MEDS: fentaNYL DRIP Premix 2,000 MCG/100 ML BAG IV SCH ×2 (13:30→22:58)
--- NOTE | 2021-06-09 14:02 | Progress Note ---
Assessment and Plan Acute possibly on chronic hypoxemic and hypercapnic respiratory failure Pneumonia, community-acquired Acute toxic metabolic encephalopathy Person under investigation for COVID-19 Morbid obesity Obstructive sleep apnea History of hypertension Acute kidney injury Hyperkalemia Elevated serum transaminases Possible shock liver Hyperammonemia Non-ST elevation myocardial infarction - continue compensatory hyperventilation fo now - s/p Vascath placement now - US chest without enough fluid for thoracentesis - repeat ABG at 9pm tonight - transaminases trending down - continue Zyvox for MRSA pneumonia - continue care as below otherwise; - wean vasopressors for target MAP > 65 mmHg - continue Eliquis - continue Revatio re: pulm HTN - nephrology input appreciated (azotemia improving) - continue Daily SAT and SBT assessment as tolerated - continue to wean supplemental oxygen for target O2 sat's > 90% acutely - VAP bundle addressed - continue lung protective strategies - continue bronchodilators with pulmonary hygiene per RT - wean per pulmonary driven protocols otherwise - avoid nephrotoxins, renally dose all medications - continue accuchecks with glycemic control per SSI (While critically ill target blood glucose of 140-180 mg/dL; avoid hypoglycemia) - sedation prn for target RASS 0 to -1 - continue to avoid benzodiazepine's, reduce the possibility of delirium - de-escalate antiinfective's per ID recommendations - prn analgesia per CPOT score - Maintenance of sleep-wake cycle, avoid delirium - continue enteral nutritional support at goal rate as tolerated - G.I. & VTE prophylaxis - PT/OT/ROM exercises - continue mobility protocols for pressure ulcer prophylaxis - Monitor hemodynamics closely - continue other care per attending / other consultants - discharge planning ongoing concurrently COVID SPECIFIC INTERVENTIONS - COVID-19 test result pending .... Re-evaluate in am & prn CONDITION: CRITICAL PROGNOSIS: GUARDED CODE STATUS: FULL CODE The high probability of a clinically significant, sudden or life-threatening deterioration of the [respiratory, cardiovascular, renal & neurologic] system(s) required my full and direct attention, intervention and personal management. The aggregate critical care time was [37] minutes without overlap. Time includes spent on; [x] Data Review and interpretation [x] Patient assessment and monitoring of vital signs [x] Documentation [x] Medication orders and management Subjective Date of service: 06/09/21 Principal diagnosis: Acute hypoxemic and hypercapnic resp failure; PUI COVID-19; Pneumonia; FERMIN Interval history: Patient is seen today for: Acute hypoxemic and hypercapnic respiratory failure; PUI NCOVID-19; Pneumonia; CAP; FERMIN; REVA Seen and examined at bedside; 24hour events reviewed; nursing and respiratory care staff consulted; no adverse overnight events reported to me; remains on MVS; family has now agreed to dialysis; for vascath placement today; mild improvement in oxygenation; no N/V/F/C Objective Vital Signs - 12hr 06/09/21 06/09/21 06/09/21 02:00 02:15 02:30 Temperature Pulse Rate 114 H 108 H 108 H Pulse Rate [ Anterior Bilateral Throughout] Pulse Rate [ From Monitor] Respiratory 26 H 29 H 27 H Rate Respiratory Rate [Anterior Bilateral Throughout] Blood Pressure 110/53 119/50 119/50 O2 Sat by Pulse 96 93 93 Oximetry 06/09/21 06/09/21 06/09/21 02:45 03:00 03:15 Temperature Pulse Rate 107 H 107 H 112 H Pulse Rate [ Anterior Bilateral Throughout] Pulse Rate [ From Monitor] Respiratory 30 H 22 21 Rate Respiratory Rate [Anterior Bilateral Throughout] Blood Pressure 118/50 124/55 127/58 O2 Sat by Pulse 94 98 100 Oximetry 06/09/21 06/09/21 06/09/21 03:30 03:45 04:00 Temperature 98.8 F Pulse Rate 108 H 109 H 109 H Pulse Rate [ Anterior Bilateral Throughout] Pulse Rate [ 112 H From Monitor] Respiratory 14 18 30 H Rate Respiratory Rate [Anterior Bilateral Throughout] Blood Pressure 134/51 136/60 108/44 O2 Sat by Pulse 96 95 88 Oximetry 06/09/21 06/09/21 06/09/21 04:11 04:15 04:30 Temperature Pulse Rate 109 H 120 H 110 H Pulse Rate [ Anterior Bilateral Throughout] Pulse Rate [ From Monitor] Respiratory 31 H 30 H Rate Respiratory Rate [Anterior Bilateral Throughout] Blood Pressure 80/65 128/62 143/62 O2 Sat by Pulse 92 95 97 Oximetry 06/09/21 06/09/21 06/09/21 04:45 05:00 05:15 Temperature Pulse Rate 110 H 109 H 110 H Pulse Rate [ Anterior Bilateral Throughout] Pulse Rate [ From Monitor] Respiratory 30 H 30 H 30 H Rate Respiratory Rate [Anterior Bilateral Throughout] Blood Pressure 119/40 124/46 125/44 O2 Sat by Pulse 94 89 88 Oximetry 06/09/21 06/09/21 06/09/21 05:30 05:45 06:00 Temperature Pulse Rate 110 H 108 H 110 H Pulse Rate [ Anterior Bilateral Throughout] Pulse Rate [ From Monitor] Respiratory 30 H 30 H 30 H Rate Respiratory Rate [Anterior Bilateral Throughout] Blood Pressure 130/53 138/55 126/59 O2 Sat by Pulse 87 100 92 Oximetry 06/09/21 06/09/21 06/09/21 06:15 06:30 06:45 Temperature Pulse Rate 110 H 109 H 109 H Pulse Rate [ Anterior Bilateral Throughout] Pulse Rate [ From Monitor] Respiratory 30 H 30 H 30 H Rate Respiratory Rate [Anterior Bilateral Throughout] Blood Pressure 129/57 127/54 126/56 O2 Sat by Pulse 93 92 89 Oximetry 06/09/21 06/09/21 06/09/21 07:00 07:15 07:30 Temperature Pulse Rate 108 H 108 H 107 H Pulse Rate [ Anterior Bilateral Throughout] Pulse Rate [ From Monitor] Respiratory 29 H 30 H 30 H Rate Respiratory Rate [Anterior Bilateral Throughout] Blood Pressure 128/54 128/59 116/50 O2 Sat by Pulse 90 91 90 Oximetry 06/09/21 06/09/21 06/09/21 07:45 08:00 08:09 Temperature 98.7 F Pulse Rate 107 H 111 H 111 H Pulse Rate [ Anterior Bilateral Throughout] Pulse Rate [ From Monitor] Respiratory 30 H 30 H 30 H Rate Respiratory Rate [Anterior Bilateral Throughout] Blood Pressure 118/55 O2 Sat by Pulse 92 92 98 Oximetry 06/09/21 06/09/21 06/09/21 08:15 08:30 08:45 Temperature Pulse Rate 107 H 104 H 105 H Pulse Rate [ Anterior Bilateral Throughout] Pulse Rate [ From Monitor] Respiratory 30 H 30 H 30 H Rate Respiratory Rate [Anterior Bilateral Throughout] Blood Pressure 120/54 108/63 110/59 O2 Sat by Pulse 96 98 93 Oximetry 06/09/21 06/09/21 06/09/21 09:00 09:11 09:12 Temperature Pulse Rate 105 H 106 H Pulse Rate [ 108 H Anterior Bilateral Throughout] Pulse Rate [ From Monitor] Respiratory 30 H Rate Respiratory 30 H Rate [Anterior Bilateral Throughout] Blood Pressure 97/61 94/48 O2 Sat by Pulse 92 91 Oximetry 06/09/21 06/09/21 06/09/21 09:16 09:30 09:45 Temperature Pulse Rate 105 H 105 H 104 H Pulse Rate [ Anterior Bilateral Throughout] Pulse Rate [ From Monitor] Respiratory 30 H 30 H 29 H Rate Respiratory Rate [Anterior Bilateral Throughout] Blood Pressure 111/60 111/60 123/61 O2 Sat by Pulse 94 91 93 Oximetry 06/09/21 06/09/21 06/09/21 10:00 10:16 10:30 Temperature Pulse Rate 83 100 H 115 H Pulse Rate [ Anterior Bilateral Throughout] Pulse Rate [ From Monitor] Respiratory 30 H 30 H 32 H Rate Respiratory Rate [Anterior Bilateral Throughout] Blood Pressure 117/50 171/80 116/49 O2 Sat by Pulse 91 97 93 Oximetry 06/09/21 06/09/21 06/09/21 10:45 11:00 11:15 Temperature Pulse Rate 115 H 112 H 112 H Pulse Rate [ Anterior Bilateral Throughout] Pulse Rate [ From Monitor] Respiratory 22 19 21 Rate Respiratory Rate [Anterior Bilateral Throughout] Blood Pressure 136/56 129/58 133/59 O2 Sat by Pulse 91 91 92 Oximetry 06/09/21 06/09/21 06/09/21 11:30 11:34 11:45 Temperature Pulse Rate 113 H 110 H 110 H Pulse Rate [ Anterior Bilateral Throughout] Pulse Rate [ From Monitor] Respiratory 30 H 30 H Rate Respiratory Rate [Anterior Bilateral Throughout] Blood Pressure 130/51 75/40 125/57 O2 Sat by Pulse 94 96 94 Oximetry 06/09/21 06/09/21 06/09/21 12:00 12:15 12:30 Temperature 98.1 F Pulse Rate 109 H 109 H 110 H Pulse Rate [ Anterior Bilateral Throughout] Pulse Rate [ From Monitor] Respiratory 30 H 30 H 30 H Rate Respiratory Rate [Anterior Bilateral Throughout] Blood Pressure 128/51 132/57 127/59 O2 Sat by Pulse 93 95 95 Oximetry 06/09/21 06/09/21 06/09/21 12:45 13:00 13:15 Temperature Pulse Rate 110 H 106 H 107 H Pulse Rate [ Anterior Bilateral Throughout] Pulse Rate [ From Monitor] Respiratory 30 H 26 H 6 L Rate Respiratory Rate [Anterior Bilateral Throughout] Blood Pressure 137/58 138/48 115/51 O2 Sat by Pulse 96 100 98 Oximetry 06/09/21 13:30 Temperature Pulse Rate 116 H Pulse Rate [ Anterior Bilateral Throughout] Pulse Rate [ From Monitor] Respiratory 13 Rate Respiratory Rate [Anterior Bilateral Throughout] Blood Pressure 111/54 O2 Sat by Pulse 96 Oximetry Constitutional: appears uncomfortable, other (middle aged morbidly obese male with mildly increased respiratory effort at rest on MVS) Eyes: non-icteric ENT: oropharynx moist, other (ETT 24 cm FRANCIS) Neck: supple, no lymphadenopathy, no JVD Effort: mildly labored Ascultation: Bilateral: diminished breath sounds, rhonchi Percussion: Bilateral: not dull Cardiovascular: regular rate and rhythm Gastrointestinal: normoactive bowel sounds, soft, non-tender, non-distended Integumentary: rash (stasis dermatitis) Extremities: no cyanosis, pulses normal, no ischemia or petechiae, edema (trace) Neurologic: non-focal exam (grossly), pupils equal and round, CN II-XII normal, other (sedated) Psychiatric: other (sedated) CBC and BMP: 06/10/21 08:25 06/10/21 08:25 ABG, PT/INR, D-dimer: ABG ABG pH 7.291 pH Units (7.350-7.450) L 06/08/21 Unknown POC ABG pCO2 43.4 mmHg (32.0-48.0) 06/07/21 21:26 ABG pCO2 45.0 mm Hg 06/08/21 Unknown POC ABG pO2 72.3 mmHg (83-108) L 06/07/21 21:26 ABG pO2 78.8 mm Hg (80.0-90.0) L 06/08/21 Unknown POC ABG HCO3 19.9 06/07/21 21:26 ABG O2 Saturation 94.8 % (95.0-99.0) L 06/08/21 Unknown PT/INR, D-dimer PT 15.3 Sec. (12.2-14.9) H 05/29/21 13:40 INR 1.09 (0.87-1.13) 05/29/21 13:40 D-Dimer 4444.85 ng/mlDDU (0-234) H 05/23/21 15:09 Abnormal lab findings: Abnormal Labs 05/23/21 05/23/21 05/23/21 15:00 15:09 15:09 WBC RBC Hgb Hct MCV 95 H MCHC 30 L RDW 20.1 H Plt Count Lymph % (Auto) 5.9 L [place] % (Auto) Lymph # (Auto) 0.6 L [place] # (Auto) Seg Neutrophils % 87.5 H Seg Neuts % (Manual) Lymphocytes % (Manual) Seg Neutrophils # 8.2 H Seg Neutrophils # Man Lymphocytes # (Manual) PT 18.1 H INR 1.36 H APTT 23.1 L D-Dimer ABG pH 7.215 L POC ABG pCO2 POC ABG pO2 ABG pO2 ABG HCO3 28.4 H ABG O2 Saturation ABG Base Excess ABG Hemoglobin 13.5 L ABG Oxyhemoglobin ABG Sodium ABG Potassium ABG Chloride ABG Glucose Oxyhemoglobin 92.6 L Carboxyhemoglobin Sodium Potassium Chloride Carbon Dioxide BUN Creatinine Glucose POC Glucose Calcium Phosphorus Magnesium Total Bilirubin AST ALT Ammonia Total Creatine Kinase Troponin T C-Reactive Protein NT-Pro-B Natriuret Pep Albumin Triglycerides HDL Cholesterol Lipase Arterial Blood Glucose Urine WBC (Auto) Urine Creatinine Urine Total Protein Salicylates Acetaminophen 05/23/21 05/23/21 05/23/21 15:09 15:09 15:09 WBC RBC Hgb Hct MCV MCHC RDW Plt Count Lymph % (Auto) [place] % (Auto) Lymph # (Auto) [place] # (Auto) Seg Neutrophils % Seg Neuts % (Manual) Lymphocytes % (Manual) Seg Neutrophils # Seg Neutrophils # Man Lymphocytes # (Manual) PT INR APTT D-Dimer ABG pH POC ABG pCO2 POC ABG pO2 ABG pO2 ABG HCO3 ABG O2 Saturation ABG Base Excess ABG Hemoglobin ABG Oxyhemoglobin ABG Sodium ABG Potassium ABG Chloride ABG Glucose Oxyhemoglobin Carboxyhemoglobin Sodium Potassium 5.2 H Chloride Carbon Dioxide BUN 40 H Creatinine 3.2 H Glucose 133 H POC Glucose Calcium Phosphorus Magnesium Total Bilirubin AST 1094 H ALT 1089 H Ammonia 75.0 H Total Creatine Kinase Troponin T 0.038 H C-Reactive Protein NT-Pro-B Natriuret Pep Albumin 3.0 L Triglycerides HDL Cholesterol 29 L Lipase Arterial Blood Glucose Urine WBC (Auto) Urine Creatinine Urine Total Protein Salicylates < 0.3 L Acetaminophen 05/23/21 05/23/21 05/23/21 15:09 15:09 15:09 WBC RBC Hgb Hct MCV MCHC RDW Plt Count Lymph % (Auto) [place] % (Auto) Lymph # (Auto) [place] # (Auto) Seg Neutrophils % Seg Neuts % (Manual) Lymphocytes % (Manual) Seg Neutrophils # Seg Neutrophils # Man Lymphocytes # (Manual) PT INR APTT D-Dimer 4444.85 H ABG pH POC ABG pCO2 POC ABG pO2 ABG pO2 ABG HCO3 ABG O2 Saturation ABG Base Excess ABG Hemoglobin ABG Oxyhemoglobin ABG Sodium ABG Potassium ABG Chloride ABG Glucose Oxyhemoglobin Carboxyhemoglobin Sodium Potassium Chloride Carbon Dioxide BUN Creatinine Glucose POC Glucose Calcium Phosphorus Magnesium Total Bilirubin AST ALT Ammonia Total Creatine Kinase 48 L Troponin T C-Reactive Protein NT-Pro-B Natriuret Pep 46473 H Albumin Triglycerides HDL Cholesterol Lipase Arterial Blood Glucose Urine WBC (Auto) Urine Creatinine Urine Total Protein Salicylates Acetaminophen 5.0 L 05/23/21 05/23/21 05/23/21 19:10 20:48 Unknown WBC RBC Hgb Hct MCV MCHC RDW Plt Count Lymph % (Auto) [place] % (Auto) Lymph # (Auto) [place] # (Auto) Seg Neutrophils % Seg Neuts % (Manual) Lymphocytes % (Manual) Seg Neutrophils # Seg Neutrophils # Man Lymphocytes # (Manual) PT INR APTT D-Dimer ABG pH 7.332 L POC ABG pCO2 POC ABG pO2 ABG pO2 74.0 L ABG HCO3 ABG O2 Saturation 94.4 L ABG Base Excess ABG Hemoglobin 12.5 L ABG Oxyhemoglobin ABG Sodium ABG Potassium ABG Chloride ABG Glucose Oxyhemoglobin 92.3 L Carboxyhemoglobin Sodium Potassium Chloride Carbon Dioxide BUN Creatinine Glucose POC Glucose Calcium Phosphorus Magnesium Total Bilirubin AST ALT Ammonia Total Creatine Kinase Troponin T C-Reactive Protein 10.00 H NT-Pro-B Natriuret Pep Albumin Triglycerides HDL Cholesterol Lipase Arterial Blood Glucose Urine WBC (Auto) 34.0 H Urine Creatinine Urine Total Protein Salicylates Acetaminophen 05/24/21 05/24/21 05/24/21 04:55 04:55 09:15 WBC RBC Hgb Hct MCV 95 H MCHC 31 L RDW 19.4 H Plt Count Lymph % (Auto) [place] % (Auto) Lymph # (Auto) [place] # (Auto) Seg Neutrophils % Seg Neuts % (Manual) 97.0 H Lymphocytes % (Manual) 3.0 L Seg Neutrophils # Seg Neutrophils # Man 8.4 H Lymphocytes # (Manual) 0.3 L PT INR APTT D-Dimer ABG pH POC ABG pCO2 POC ABG pO2 ABG pO2 90.6 H ABG HCO3 ABG O2 Saturation ABG Base Excess -3.7 L ABG Hemoglobin 13.5 L ABG Oxyhemoglobin ABG Sodium ABG Potassium ABG Chloride ABG Glucose Oxyhemoglobin Carboxyhemoglobin Sodium Potassium 5.5 H Chloride Carbon Dioxide 20 L BUN 39 H Creatinine 2.2 H Glucose 155 H POC Glucose Calcium 8.3 L Phosphorus Magnesium Total Bilirubin AST 571 H ALT 951 H Ammonia Total Creatine Kinase Troponin T C-Reactive Protein NT-Pro-B Natriuret Pep Albumin 3.2 L Triglycerides HDL Cholesterol Lipase Arterial Blood Glucose Urine WBC (Auto) Urine Creatinine Urine Total Protein Salicylates Acetaminophen 05/25/21 05/25/21 05/25/21 04:20 14:37 14:37 WBC RBC Hgb Hct MCV 96 H MCHC 30 L RDW 20.7 H Plt Count Lymph % (Auto) [place] % (Auto) Lymph # (Auto) [place] # (Auto) Seg Neutrophils % Seg Neuts % (Manual) Lymphocytes % (Manual) Seg Neutrophils # Seg Neutrophils # Man Lymphocytes # (Manual) PT INR APTT D-Dimer ABG pH 7.222 L POC ABG pCO2 57.8 H POC ABG pO2 67.3 L ABG pO2 ABG HCO3 ABG O2 Saturation ABG Base Excess ABG Hemoglobin ABG Oxyhemoglobin 89.1 L ABG Sodium ABG Potassium 5.1 H ABG Chloride ABG Glucose 182 H Oxyhemoglobin Carboxyhemoglobin Sodium Potassium 5.3 H Chloride Carbon Dioxide BUN 47 H Creatinine 2.0 H Glucose 154 H POC Glucose Calcium Phosphorus Magnesium Total Bilirubin AST 93 H ALT 590 H Ammonia Total Creatine Kinase Troponin T C-Reactive Protein NT-Pro-B Natriuret Pep Albumin 3.6 L Triglycerides HDL Cholesterol Lipase Arterial Blood Glucose 182 H Urine WBC (Auto) Urine Creatinine Urine Total Protein Salicylates Acetaminophen 05/25/21 05/25/21 05/26/21 21:50 23:30 05:31 WBC RBC Hgb Hct MCV MCHC RDW Plt Count Lymph % (Auto) [place] % (Auto) Lymph # (Auto) [place] # (Auto) Seg Neutrophils % Seg Neuts % (Manual) Lymphocytes % (Manual) Seg Neutrophils # Seg Neutrophils # Man Lymphocytes # (Manual) PT INR APTT D-Dimer ABG pH 7.328 L POC ABG pCO2 POC ABG pO2 ABG pO2 63.3 L ABG HCO3 ABG O2 Saturation 92.1 L ABG Base Excess -2.4 L ABG Hemoglobin 11.3 L ABG Oxyhemoglobin ABG Sodium ABG Potassium ABG Chloride ABG Glucose Oxyhemoglobin 90.3 L Carboxyhemoglobin Sodium Potassium Chloride Carbon Dioxide BUN Creatinine Glucose POC Glucose 131 H 123 H Calcium Phosphorus Magnesium Total Bilirubin AST ALT Ammonia Total Creatine Kinase Troponin T C-Reactive Protein NT-Pro-B Natriuret Pep Albumin Triglycerides HDL Cholesterol Lipase Arterial Blood Glucose Urine WBC (Auto) Urine Creatinine Urine Total Protein Salicylates Acetaminophen 05/26/21 05/26/21 05/26/21 09:02 10:57 12:37 WBC RBC Hgb Hct MCV MCHC RDW Plt Count Lymph % (Auto) [place] % (Auto) Lymph # (Auto) [place] # (Auto) Seg Neutrophils % Seg Neuts % (Manual) Lymphocytes % (Manual) Seg Neutrophils # Seg Neutrophils # Man Lymphocytes # (Manual) PT INR APTT D-Dimer ABG pH 7.346 L POC ABG pCO2 POC ABG pO2 ABG pO2 60.5 L ABG HCO3 ABG O2 Saturation 90.7 L ABG Base Excess ABG Hemoglobin 13.1 L ABG Oxyhemoglobin ABG Sodium ABG Potassium ABG Chloride ABG Glucose Oxyhemoglobin 88.9 L Carboxyhemoglobin Sodium Potassium Chloride Carbon Dioxide BUN Creatinine Glucose POC Glucose 127 H Calcium Phosphorus Magnesium Total Bilirubin AST ALT Ammonia Total Creatine Kinase Troponin T C-Reactive Protein NT-Pro-B Natriuret Pep Albumin Triglycerides HDL Cholesterol Lipase Arterial Blood Glucose Urine WBC (Auto) Urine Creatinine 79.3 H Urine Total Protein 80 H Salicylates Acetaminophen 05/26/21 05/26/21 05/26/21 17:30 21:00 Unknown WBC 4.2 L RBC Hgb 11.7 L Hct MCV MCHC 31 L RDW 20.3 H Plt Count 132 L Lymph % (Auto) [place] % (Auto) Lymph # (Auto) [place] # (Auto) Seg Neutrophils % Seg Neuts % (Manual) Lymphocytes % (Manual) Seg Neutrophils # Seg Neutrophils # Man Lymphocytes # (Manual) PT INR APTT D-Dimer ABG pH POC ABG pCO2 POC ABG pO2 56.7 L ABG pO2 ABG HCO3 ABG O2 Saturation ABG Base Excess ABG Hemoglobin ABG Oxyhemoglobin 88.8 L ABG Sodium ABG Potassium 4.7 H ABG Chloride ABG Glucose 152 H Oxyhemoglobin Carboxyhemoglobin Sodium Potassium Chloride Carbon Dioxide BUN Creatinine Glucose POC Glucose 141 H Calcium Phosphorus Magnesium Total Bilirubin AST ALT Ammonia Total Creatine Kinase Troponin T C-Reactive Protein NT-Pro-B Natriuret Pep Albumin Triglycerides HDL Cholesterol Lipase Arterial Blood Glucose 152 H Urine WBC (Auto) Urine Creatinine Urine Total Protein Salicylates Acetaminophen 05/26/21 05/26/21 05/27/21 Unknown Unknown 08:00 WBC 4.2 L RBC Hgb Hct MCV MCHC RDW 21.2 H Plt Count 126 L Lymph % (Auto) [place] % (Auto) Lymph # (Auto) [place] # (Auto) Seg Neutrophils % Seg Neuts % (Manual) Lymphocytes % (Manual) Seg Neutrophils # Seg Neutrophils # Man Lymphocytes # (Manual) PT INR APTT D-Dimer ABG pH POC ABG pCO2 POC ABG pO2 ABG pO2 ABG HCO3 ABG O2 Saturation ABG Base Excess ABG Hemoglobin ABG Oxyhemoglobin ABG Sodium ABG Potassium ABG Chloride ABG Glucose Oxyhemoglobin Carboxyhemoglobin Sodium Potassium 5.2 H Chloride Carbon Dioxide BUN 47 H Creatinine 2.0 H Glucose 136 H POC Glucose Calcium Phosphorus Magnesium Total Bilirubin AST 64 H ALT 448 H Ammonia Total Creatine Kinase Troponin T C-Reactive Protein NT-Pro-B Natriuret Pep Albumin 3.4 L Triglycerides HDL Cholesterol Lipase Arterial Blood Glucose Urine WBC (Auto) Urine Creatinine 128.6 H Urine Total Protein Salicylates Acetaminophen 05/27/21 05/27/21 05/27/21 08:00 10:15 11:48 WBC RBC Hgb Hct MCV MCHC RDW Plt Count Lymph % (Auto) [place] % (Auto) Lymph # (Auto) [place] # (Auto) Seg Neutrophils % Seg Neuts % (Manual) Lymphocytes % (Manual) Seg Neutrophils # Seg Neutrophils # Man Lymphocytes # (Manual) PT INR APTT D-Dimer ABG pH 7.300 L POC ABG pCO2 POC ABG pO2 ABG pO2 42.1 L ABG HCO3 ABG O2 Saturation 72.8 L ABG Base Excess ABG Hemoglobin 12.7 L ABG Oxyhemoglobin ABG Sodium ABG Potassium ABG Chloride ABG Glucose Oxyhemoglobin 71.4 L Carboxyhemoglobin Sodium Potassium Chloride Carbon Dioxide BUN 52 H Creatinine 1.8 H Glucose 171 H POC Glucose 139 H Calcium 8.3 L Phosphorus Magnesium Total Bilirubin AST ALT Ammonia Total Creatine Kinase Troponin T C-Reactive Protein NT-Pro-B Natriuret Pep Albumin Triglycerides HDL Cholesterol Lipase Arterial Blood Glucose Urine WBC (Auto) Urine Creatinine Urine Total Protein Salicylates Acetaminophen 05/27/21 05/28/21 05/28/21 17:13 05:30 11:37 WBC RBC Hgb Hct MCV MCHC RDW Plt Count Lymph % (Auto) [place] % (Auto) Lymph # (Auto) [place] # (Auto) Seg Neutrophils % Seg Neuts % (Manual) Lymphocytes % (Manual) Seg Neutrophils # Seg Neutrophils # Man Lymphocytes # (Manual) PT INR APTT D-Dimer ABG pH POC ABG pCO2 POC ABG pO2 ABG pO2 ABG HCO3 ABG O2 Saturation ABG Base Excess ABG Hemoglobin ABG Oxyhemoglobin ABG Sodium ABG Potassium ABG Chloride ABG Glucose Oxyhemoglobin Carboxyhemoglobin Sodium Potassium Chloride Carbon Dioxide BUN 53 H Creatinine 1.6 H Glucose 118 H POC Glucose 145 H 115 H Calcium 8.0 L Phosphorus Magnesium 2.40 H Total Bilirubin AST ALT Ammonia Total Creatine Kinase Troponin T C-Reactive Protein NT-Pro-B Natriuret Pep Albumin Triglycerides HDL Cholesterol Lipase Arterial Blood Glucose Urine WBC (Auto) Urine Creatinine Urine Total Protein Salicylates Acetaminophen 05/28/21 05/28/21 05/29/21 13:32 Unknown 09:43 WBC RBC Hgb 11.7 L Hct MCV MCHC 31 L RDW 21.3 H Plt Count 121 L Lymph % (Auto) [place] % (Auto) Lymph # (Auto) [place] # (Auto) Seg Neutrophils % Seg Neuts % (Manual) Lymphocytes % (Manual) Seg Neutrophils # Seg Neutrophils # Man Lymphocytes # (Manual) PT INR APTT D-Dimer ABG pH 7.339 L POC ABG pCO2 POC ABG pO2 ABG pO2 53.7 L 60.9 L ABG HCO3 ABG O2 Saturation 86.5 L 90.7 L ABG Base Excess ABG Hemoglobin 12.3 L 12.0 L ABG Oxyhemoglobin ABG Sodium ABG Potassium ABG Chloride ABG Glucose Oxyhemoglobin 84.6 L 88.9 L Carboxyhemoglobin Sodium Potassium Chloride Carbon Dioxide BUN Creatinine Glucose POC Glucose Calcium Phosphorus Magnesium Total Bilirubin AST ALT Ammonia Total Creatine Kinase Troponin T C-Reactive Protein NT-Pro-B Natriuret Pep Albumin Triglycerides HDL Cholesterol Lipase Arterial Blood Glucose Urine WBC (Auto) Urine Creatinine Urine Total Protein Salicylates Acetaminophen 05/29/21 05/29/21 05/29/21 13:40 13:40 13:40 WBC RBC Hgb Hct MCV MCHC RDW 20.9 H Plt Count 103 L Lymph % (Auto) [place] % (Auto) Lymph # (Auto) [place] # (Auto) Seg Neutrophils % Seg Neuts % (Manual) Lymphocytes % (Manual) Seg Neutrophils # Seg Neutrophils # Man Lymphocytes # (Manual) PT 15.3 H INR APTT D-Dimer ABG pH POC ABG pCO2 POC ABG pO2 ABG pO2 ABG HCO3 ABG O2 Saturation ABG Base Excess ABG Hemoglobin ABG Oxyhemoglobin ABG Sodium ABG Potassium ABG Chloride ABG Glucose Oxyhemoglobin Carboxyhemoglobin Sodium Potassium Chloride Carbon Dioxide BUN Creatinine 1.7 H Glucose POC Glucose Calcium Phosphorus Magnesium Total Bilirubin AST ALT Ammonia Total Creatine Kinase Troponin T C-Reactive Protein NT-Pro-B Natriuret Pep Albumin Triglycerides HDL Cholesterol Lipase Arterial Blood Glucose Urine WBC (Auto) Urine Creatinine Urine Total Protein Salicylates Acetaminophen 05/30/21 05/30/21 05/30/21 04:42 04:42 07:47 WBC RBC Hgb 11.7 L Hct MCV 95 H MCHC RDW 20.8 H Plt Count 106 L Lymph % (Auto) [place] % (Auto) Lymph # (Auto) [place] # (Auto) Seg Neutrophils % Seg Neuts % (Manual) Lymphocytes % (Manual) Seg Neutrophils # Seg Neutrophils # Man Lymphocytes # (Manual) PT INR APTT D-Dimer ABG pH POC ABG pCO2 POC ABG pO2 ABG pO2 ABG HCO3 ABG O2 Saturation ABG Base Excess ABG Hemoglobin ABG Oxyhemoglobin ABG Sodium ABG Potassium ABG Chloride ABG Glucose Oxyhemoglobin Carboxyhemoglobin Sodium 135 L Potassium Chloride Carbon Dioxide BUN 63 H 63 H Creatinine 1.6 H 1.6 H Glucose POC Glucose Calcium 8.2 L Phosphorus Magnesium Total Bilirubin AST ALT Ammonia Total Creatine Kinase Troponin T C-Reactive Protein NT-Pro-B Natriuret Pep Albumin Triglycerides HDL Cholesterol Lipase Arterial Blood Glucose Urine WBC (Auto) Urine Creatinine Urine Total Protein Salicylates Acetaminophen 05/30/21 05/31/21 05/31/21 09:22 05:16 05:16 WBC RBC Hgb 11.1 L Hct MCV MCHC 31 L RDW 20.8 H Plt Count 116 L Lymph % (Auto) [place] % (Auto) Lymph # (Auto) [place] # (Auto) Seg Neutrophils % Seg Neuts % (Manual) Lymphocytes % (Manual) Seg Neutrophils # Seg Neutrophils # Man Lymphocytes # (Manual) PT INR APTT D-Dimer ABG pH 7.323 L POC ABG pCO2 POC ABG pO2 ABG pO2 107.0 H ABG HCO3 ABG O2 Saturation ABG Base Excess ABG Hemoglobin 12.4 L ABG Oxyhemoglobin ABG Sodium ABG Potassium ABG Chloride ABG Glucose Oxyhemoglobin Carboxyhemoglobin Sodium Potassium Chloride Carbon Dioxide BUN 62 H Creatinine 1.9 H Glucose 103 H POC Glucose Calcium Phosphorus Magnesium Total Bilirubin AST ALT Ammonia Total Creatine Kinase Troponin T C-Reactive Protein NT-Pro-B Natriuret Pep Albumin Triglycerides HDL Cholesterol Lipase Arterial Blood Glucose Urine WBC (Auto) Urine Creatinine Urine Total Protein Salicylates Acetaminophen 05/31/21 05/31/21 05/31/21 05:17 16:49 Unknown WBC RBC Hgb Hct MCV MCHC RDW Plt Count Lymph % (Auto) [place] % (Auto) Lymph # (Auto) [place] # (Auto) Seg Neutrophils % Seg Neuts % (Manual) Lymphocytes % (Manual) Seg Neutrophils # Seg Neutrophils # Man Lymphocytes # (Manual) PT INR APTT D-Dimer ABG pH POC ABG pCO2 48.4 H POC ABG pO2 63.0 L ABG pO2 ABG HCO3 ABG O2 Saturation ABG Base Excess ABG Hemoglobin 11.9 L ABG Oxyhemoglobin 91.4 L ABG Sodium ABG Potassium 4.6 H ABG Chloride ABG Glucose 110 H Oxyhemoglobin Carboxyhemoglobin Sodium Potassium Chloride Carbon Dioxide BUN Creatinine Glucose POC Glucose 109 H 107 H Calcium Phosphorus Magnesium Total Bilirubin AST ALT Ammonia Total Creatine Kinase Troponin T C-Reactive Protein NT-Pro-B Natriuret Pep Albumin Triglycerides HDL Cholesterol Lipase Arterial Blood Glucose 110 H Urine WBC (Auto) Urine Creatinine Urine Total Protein Salicylates Acetaminophen 06/01/21 06/01/21 06/01/21 03:06 07:00 07:00 WBC RBC Hgb 11.2 L Hct MCV 96 H MCHC 31 L RDW 20.6 H Plt Count Lymph % (Auto) [place] % (Auto) Lymph # (Auto) [place] # (Auto) Seg Neutrophils % Seg Neuts % (Manual) Lymphocytes % (Manual) Seg Neutrophils # Seg Neutrophils # Man Lymphocytes # (Manual) PT INR APTT D-Dimer ABG pH POC ABG pCO2 POC ABG pO2 55.0 L ABG pO2 ABG HCO3 ABG O2 Saturation ABG Base Excess ABG Hemoglobin 10.9 L ABG Oxyhemoglobin 87.5 L ABG Sodium 127.4 L ABG Potassium 4.6 H ABG Chloride 108.0 H ABG Glucose 108 H Oxyhemoglobin Carboxyhemoglobin Sodium Potassium Chloride Carbon Dioxide BUN 59 H Creatinine 1.6 H Glucose 104 H POC Glucose Calcium Phosphorus Magnesium Total Bilirubin AST ALT Ammonia Total Creatine Kinase Troponin T C-Reactive Protein NT-Pro-B Natriuret Pep Albumin Triglycerides HDL Cholesterol Lipase Arterial Blood Glucose 108 H Urine WBC (Auto) Urine Creatinine Urine Total Protein Salicylates Acetaminophen 06/01/21 06/01/21 06/02/21 17:09 23:42 04:23 WBC RBC 3.48 L Hgb 10.1 L Hct 33.1 L MCV 95 H MCHC 31 L RDW 19.9 H Plt Count Lymph % (Auto) [place] % (Auto) Lymph # (Auto) [place] # (Auto) Seg Neutrophils % Seg Neuts % (Manual) Lymphocytes % (Manual) Seg Neutrophils # Seg Neutrophils # Man Lymphocytes # (Manual) PT INR APTT D-Dimer ABG pH POC ABG pCO2 POC ABG pO2 ABG pO2 ABG HCO3 ABG O2 Saturation ABG Base Excess ABG Hemoglobin ABG Oxyhemoglobin ABG Sodium ABG Potassium ABG Chloride ABG Glucose Oxyhemoglobin Carboxyhemoglobin Sodium Potassium Chloride Carbon Dioxide BUN Creatinine Glucose POC Glucose 106 H 109 H Calcium Phosphorus Magnesium Total Bilirubin AST ALT Ammonia Total Creatine Kinase Troponin T C-Reactive Protein NT-Pro-B Natriuret Pep Albumin Triglycerides HDL Cholesterol Lipase Arterial Blood Glucose Urine WBC (Auto) Urine Creatinine Urine Total Protein Salicylates Acetaminophen 06/02/21 06/02/21 06/02/21 04:23 05:38 05:40 WBC RBC Hgb Hct MCV MCHC RDW Plt Count Lymph % (Auto) [place] % (Auto) Lymph # (Auto) [place] # (Auto) Seg Neutrophils % Seg Neuts % (Manual) Lymphocytes % (Manual) Seg Neutrophils # Seg Neutrophils # Man Lymphocytes # (Manual) PT INR APTT D-Dimer ABG pH POC ABG pCO2 POC ABG pO2 ABG pO2 ABG HCO3 ABG O2 Saturation ABG Base Excess ABG Hemoglobin ABG Oxyhemoglobin ABG Sodium ABG Potassium ABG Chloride ABG Glucose Oxyhemoglobin Carboxyhemoglobin Sodium Potassium Chloride Carbon Dioxide BUN 61 H Creatinine 1.7 H Glucose 119 H POC Glucose 49 L 107 H Calcium Phosphorus Magnesium Total Bilirubin AST ALT Ammonia Total Creatine Kinase Troponin T C-Reactive Protein NT-Pro-B Natriuret Pep Albumin Triglycerides HDL Cholesterol Lipase Arterial Blood Glucose Urine WBC (Auto) Urine Creatinine Urine Total Protein Salicylates Acetaminophen 06/02/21 06/02/21 06/03/21 10:01 11:26 04:10 WBC RBC Hgb Hct MCV MCHC RDW Plt Count Lymph % (Auto) [place] % (Auto) Lymph # (Auto) [place] # (Auto) Seg Neutrophils % Seg Neuts % (Manual) Lymphocytes % (Manual) Seg Neutrophils # Seg Neutrophils # Man Lymphocytes # (Manual) PT INR APTT D-Dimer ABG pH 7.315 L POC ABG pCO2 POC ABG pO2 62.1 L ABG pO2 ABG HCO3 ABG O2 Saturation ABG Base Excess ABG Hemoglobin 10.8 L ABG Oxyhemoglobin 91.0 L ABG Sodium 133.5 L ABG Potassium 5.0 H ABG Chloride 109.0 H ABG Glucose 124 H Oxyhemoglobin Carboxyhemoglobin Sodium Potassium Chloride Carbon Dioxide BUN Creatinine Glucose POC Glucose 117 H Calcium Phosphorus Magnesium Total Bilirubin AST ALT Ammonia Total Creatine Kinase Troponin T C-Reactive Protein NT-Pro-B Natriuret Pep Albumin Triglycerides 830 H HDL Cholesterol Lipase Arterial Blood Glucose 124 H Urine WBC (Auto) Urine Creatinine Urine Total Protein Salicylates Acetaminophen 06/03/21 06/03/21 06/03/21 04:10 04:10 05:36 WBC RBC 3.25 L Hgb 9.9 L Hct 31.8 L MCV 98 H MCHC 31 L RDW 19.9 H Plt Count Lymph % (Auto) 6.2 L [place] % (Auto) 13.1 H Lymph # (Auto) 0.5 L [place] # (Auto) 1.1 H Seg Neutrophils % Seg Neuts % (Manual) Lymphocytes % (Manual) Seg Neutrophils # Seg Neutrophils # Man Lymphocytes # (Manual) PT INR APTT D-Dimer ABG pH POC ABG pCO2 POC ABG pO2 ABG pO2 ABG HCO3 ABG O2 Saturation ABG Base Excess ABG Hemoglobin ABG Oxyhemoglobin ABG Sodium ABG Potassium ABG Chloride ABG Glucose Oxyhemoglobin Carboxyhemoglobin Sodium 136 L Potassium Chloride Carbon Dioxide 20 L BUN 57 H Creatinine 1.7 H Glucose 108 H POC Glucose 114 H Calcium 8.2 L Phosphorus Magnesium Total Bilirubin AST ALT Ammonia Total Creatine Kinase Troponin T C-Reactive Protein NT-Pro-B Natriuret Pep Albumin Triglycerides HDL Cholesterol Lipase Arterial Blood Glucose Urine WBC (Auto) Urine Creatinine Urine Total Protein Salicylates Acetaminophen 06/03/21 06/03/21 06/03/21 06:55 13:06 23:30 WBC RBC Hgb Hct MCV MCHC RDW Plt Count Lymph % (Auto) [place] % (Auto) Lymph # (Auto) [place] # (Auto) Seg Neutrophils % Seg Neuts % (Manual) Lymphocytes % (Manual) Seg Neutrophils # Seg Neutrophils # Man Lymphocytes # (Manual) PT INR APTT D-Dimer ABG pH 7.298 L POC ABG pCO2 POC ABG pO2 67.4 L ABG pO2 ABG HCO3 ABG O2 Saturation ABG Base Excess ABG Hemoglobin 11.7 L ABG Oxyhemoglobin 91.2 L ABG Sodium 134.3 L ABG Potassium 4.7 H ABG Chloride 108.0 H ABG Glucose 110 H Oxyhemoglobin Carboxyhemoglobin Sodium Potassium Chloride Carbon Dioxide BUN Creatinine Glucose POC Glucose 106 H 106 H Calcium Phosphorus Magnesium Total Bilirubin AST ALT Ammonia Total Creatine Kinase Troponin T C-Reactive Protein NT-Pro-B Natriuret Pep Albumin Triglycerides HDL Cholesterol Lipase Arterial Blood Glucose 110 H Urine WBC (Auto) Urine Creatinine Urine Total Protein Salicylates Acetaminophen 06/04/21 06/04/21 06/04/21 05:00 05:15 05:15 WBC RBC 3.27 L Hgb 9.7 L Hct 31.6 L MCV 97 H MCHC 31 L RDW 19.3 H Plt Count Lymph % (Auto) [place] % (Auto) Lymph # (Auto) [place] # (Auto) Seg Neutrophils % Seg Neuts % (Manual) Lymphocytes % (Manual) Seg Neutrophils # Seg Neutrophils # Man Lymphocytes # (Manual) PT INR APTT D-Dimer ABG pH 7.293 L POC ABG pCO2 POC ABG pO2 ABG pO2 69.1 L ABG HCO3 ABG O2 Saturation 92.3 L ABG Base Excess -4.0 L ABG Hemoglobin 8.9 L ABG Oxyhemoglobin ABG Sodium ABG Potassium ABG Chloride ABG Glucose Oxyhemoglobin 90.3 L Carboxyhemoglobin Sodium Potassium Chloride Carbon Dioxide 21 L BUN 60 H Creatinine 1.7 H Glucose 106 H POC Glucose Calcium Phosphorus Magnesium Total Bilirubin AST ALT Ammonia Total Creatine Kinase Troponin T C-Reactive Protein NT-Pro-B Natriuret Pep Albumin 2.7 L Triglycerides HDL Cholesterol Lipase Arterial Blood Glucose Urine WBC (Auto) Urine Creatinine Urine Total Protein Salicylates Acetaminophen 06/04/21 06/04/21 06/04/21 05:37 13:39 13:54 WBC RBC 3.07 L Hgb 8.9 L Hct 29.5 L MCV 96 H MCHC 30 L RDW 19.4 H Plt Count Lymph % (Auto) [place] % (Auto) Lymph # (Auto) [place] # (Auto) Seg Neutrophils % Seg Neuts % (Manual) Lymphocytes % (Manual) Seg Neutrophils # Seg Neutrophils # Man Lymphocytes # (Manual) PT INR APTT D-Dimer ABG pH POC ABG pCO2 POC ABG pO2 ABG pO2 ABG HCO3 ABG O2 Saturation ABG Base Excess ABG Hemoglobin ABG Oxyhemoglobin ABG Sodium ABG Potassium ABG Chloride ABG Glucose Oxyhemoglobin Carboxyhemoglobin Sodium Potassium Chloride Carbon Dioxide BUN Creatinine Glucose POC Glucose 115 H Calcium Phosphorus Magnesium Total Bilirubin AST ALT Ammonia Total Creatine Kinase Troponin T C-Reactive Protein NT-Pro-B Natriuret Pep Albumin Triglycerides HDL Cholesterol Lipase Arterial Blood Glucose Urine WBC (Auto) 17.0 H Urine Creatinine Urine Total Protein Salicylates Acetaminophen 06/04/21 06/04/21 06/05/21 13:56 23:17 04:30 WBC RBC 3.07 L Hgb 9.0 L Hct 29.6 L MCV 97 H MCHC 30 L RDW 19.1 H Plt Count Lymph % (Auto) [place] % (Auto) Lymph # (Auto) [place] # (Auto) Seg Neutrophils % Seg Neuts % (Manual) Lymphocytes % (Manual) Seg Neutrophils # Seg Neutrophils # Man Lymphocytes # (Manual) PT INR APTT D-Dimer ABG pH POC ABG pCO2 POC ABG pO2 ABG pO2 ABG HCO3 ABG O2 Saturation ABG Base Excess ABG Hemoglobin ABG Oxyhemoglobin ABG Sodium ABG Potassium ABG Chloride ABG Glucose Oxyhemoglobin Carboxyhemoglobin Sodium Potassium Chloride 108.8 H Carbon Dioxide 21 L BUN 58 H Creatinine 1.8 H Glucose 105 H POC Glucose 108 H Calcium Phosphorus Magnesium Total Bilirubin AST ALT Ammonia Total Creatine Kinase Troponin T C-Reactive Protein NT-Pro-B Natriuret Pep Albumin Triglycerides HDL Cholesterol Lipase Arterial Blood Glucose Urine WBC (Auto) Urine Creatinine Urine Total Protein Salicylates Acetaminophen 06/05/21 06/05/21 06/05/21 04:30 05:41 09:07 WBC RBC Hgb Hct MCV MCHC RDW Plt Count Lymph % (Auto) [place] % (Auto) Lymph # (Auto) [place] # (Auto) Seg Neutrophils % Seg Neuts % (Manual) Lymphocytes % (Manual) Seg Neutrophils # Seg Neutrophils # Man Lymphocytes # (Manual) PT INR APTT D-Dimer ABG pH 7.287 L POC ABG pCO2 POC ABG pO2 ABG pO2 79.5 L ABG HCO3 ABG O2 Saturation ABG Base Excess -4.2 L ABG Hemoglobin 8.6 L ABG Oxyhemoglobin ABG Sodium ABG Potassium ABG Chloride ABG Glucose Oxyhemoglobin 94.9 L Carboxyhemoglobin Sodium Potassium Chloride 108.5 H Carbon Dioxide 21 L BUN 60 H Creatinine 1.7 H Glucose 110 H POC Glucose 111 H Calcium Phosphorus Magnesium Total Bilirubin AST ALT Ammonia Total Creatine Kinase Troponin T C-Reactive Protein NT-Pro-B Natriuret Pep Albumin Triglycerides HDL Cholesterol Lipase Arterial Blood Glucose Urine WBC (Auto) Urine Creatinine Urine Total Protein Salicylates Acetaminophen 06/05/21 06/05/21 06/05/21 11:39 15:57 23:26 WBC RBC Hgb Hct MCV MCHC RDW Plt Count Lymph % (Auto) [place] % (Auto) Lymph # (Auto) [place] # (Auto) Seg Neutrophils % Seg Neuts % (Manual) Lymphocytes % (Manual) Seg Neutrophils # Seg Neutrophils # Man Lymphocytes # (Manual) PT INR APTT D-Dimer ABG pH POC ABG pCO2 POC ABG pO2 ABG pO2 ABG HCO3 ABG O2 Saturation ABG Base Excess ABG Hemoglobin ABG Oxyhemoglobin ABG Sodium ABG Potassium ABG Chloride ABG Glucose Oxyhemoglobin Carboxyhemoglobin Sodium Potassium Chloride Carbon Dioxide BUN Creatinine Glucose POC Glucose 111 H 109 H 127 H Calcium Phosphorus Magnesium Total Bilirubin AST ALT Ammonia Total Creatine Kinase Troponin T C-Reactive Protein NT-Pro-B Natriuret Pep Albumin Triglycerides HDL Cholesterol Lipase Arterial Blood Glucose Urine WBC (Auto) Urine Creatinine Urine Total Protein Salicylates Acetaminophen 06/06/21 06/06/21 06/06/21 03:19 04:18 11:35 WBC RBC Hgb Hct MCV MCHC RDW Plt Count Lymph % (Auto) [place] % (Auto) Lymph # (Auto) [place] # (Auto) Seg Neutrophils % Seg Neuts % (Manual) Lymphocytes % (Manual) Seg Neutrophils # Seg Neutrophils # Man Lymphocytes # (Manual) PT INR APTT D-Dimer ABG pH 7.262 L POC ABG pCO2 POC ABG pO2 76.6 L ABG pO2 ABG HCO3 ABG O2 Saturation ABG Base Excess ABG Hemoglobin 10.1 L ABG Oxyhemoglobin 93.9 L ABG Sodium ABG Potassium 5.1 H ABG Chloride 111.0 H ABG Glucose 122 H Oxyhemoglobin Carboxyhemoglobin 0.4 L Sodium Potassium Chloride Carbon Dioxide BUN Creatinine Glucose POC Glucose 108 H 139 H Calcium Phosphorus Magnesium Total Bilirubin AST ALT Ammonia Total Creatine Kinase Troponin T C-Reactive Protein NT-Pro-B Natriuret Pep Albumin Triglycerides HDL Cholesterol Lipase Arterial Blood Glucose 122 H Urine WBC (Auto) Urine Creatinine Urine Total Protein Salicylates Acetaminophen 06/06/21 06/06/21 06/06/21 13:30 17:27 Unknown WBC RBC 3.18 L Hgb 9.5 L Hct 30.8 L MCV 97 H MCHC 31 L RDW 18.9 H Plt Count Lymph % (Auto) [place] % (Auto) Lymph # (Auto) [place] # (Auto) Seg Neutrophils % Seg Neuts % (Manual) Lymphocytes % (Manual) Seg Neutrophils # Seg Neutrophils # Man Lymphocytes # (Manual) PT INR APTT D-Dimer ABG pH POC ABG pCO2 POC ABG pO2 ABG pO2 ABG HCO3 ABG O2 Saturation ABG Base Excess ABG Hemoglobin ABG Oxyhemoglobin ABG Sodium ABG Potassium ABG Chloride ABG Glucose Oxyhemoglobin Carboxyhemoglobin Sodium Potassium Chloride Carbon Dioxide BUN Creatinine Glucose POC Glucose 127 H Calcium Phosphorus Magnesium Total Bilirubin AST ALT Ammonia Total Creatine Kinase Troponin T C-Reactive Protein NT-Pro-B Natriuret Pep Albumin Triglycerides HDL Cholesterol Lipase Arterial Blood Glucose Urine WBC (Auto) Urine Creatinine 222.7 H Urine Total Protein Salicylates Acetaminophen 06/06/21 06/07/21 06/07/21 Unknown 04:33 07:02 WBC 12.4 H RBC 3.23 L Hgb 9.3 L Hct 31.1 L MCV 97 H MCHC 30 L RDW 18.6 H Plt Count Lymph % (Auto) [place] % (Auto) Lymph # (Auto) [place] # (Auto) Seg Neutrophils % Seg Neuts % (Manual) Lymphocytes % (Manual) Seg Neutrophils # Seg Neutrophils # Man Lymphocytes # (Manual) PT INR APTT D-Dimer ABG pH 7.154 L* POC ABG pCO2 POC ABG pO2 ABG pO2 97.5 H ABG HCO3 18.0 L ABG O2 Saturation ABG Base Excess -10.8 L ABG Hemoglobin 13.0 L ABG Oxyhemoglobin ABG Sodium ABG Potassium ABG Chloride ABG Glucose Oxyhemoglobin 94.3 L Carboxyhemoglobin Sodium Potassium 5.3 H Chloride Carbon Dioxide 17 L BUN 72 H Creatinine 2.5 H Glucose 140 H POC Glucose Calcium Phosphorus Magnesium Total Bilirubin AST ALT Ammonia Total Creatine Kinase Troponin T C-Reactive Protein NT-Pro-B Natriuret Pep Albumin Triglycerides HDL Cholesterol Lipase Arterial Blood Glucose Urine WBC (Auto) Urine Creatinine Urine Total Protein Salicylates Acetaminophen 06/07/21 06/07/21 06/07/21 07:02 09:48 12:20 WBC RBC Hgb Hct MCV MCHC RDW Plt Count Lymph % (Auto) [place] % (Auto) Lymph # (Auto) [place] # (Auto) Seg Neutrophils % Seg Neuts % (Manual) Lymphocytes % (Manual) Seg Neutrophils # Seg Neutrophils # Man Lymphocytes # (Manual) PT INR APTT D-Dimer ABG pH 7.128 L POC ABG pCO2 POC ABG pO2 73.8 L ABG pO2 ABG HCO3 ABG O2 Saturation ABG Base Excess ABG Hemoglobin 11.1 L ABG Oxyhemoglobin 91.1 L ABG Sodium ABG Potassium 5.8 H ABG Chloride 110.0 H ABG Glucose 109 H Oxyhemoglobin Carboxyhemoglobin 0.3 L Sodium Potassium 6.6 H* D 6.1 H* Chloride Carbon Dioxide 18 L 15 L BUN 84 H 85 H Creatinine 3.0 H 3.2 H Glucose 104 H 165 H POC Glucose Calcium Phosphorus Magnesium Total Bilirubin AST ALT Ammonia Total Creatine Kinase Troponin T C-Reactive Protein NT-Pro-B Natriuret Pep Albumin Triglycerides HDL Cholesterol Lipase Arterial Blood Glucose 109 H Urine WBC (Auto) Urine Creatinine Urine Total Protein Salicylates Acetaminophen 06/07/21 06/07/21 06/07/21 18:04 21:26 23:18 WBC RBC Hgb Hct MCV MCHC RDW Plt Count Lymph % (Auto) [place] % (Auto) Lymph # (Auto) [place] # (Auto) Seg Neutrophils % Seg Neuts % (Manual) Lymphocytes % (Manual) Seg Neutrophils # Seg Neutrophils # Man Lymphocytes # (Manual) PT INR APTT D-Dimer ABG pH 7.279 L POC ABG pCO2 POC ABG pO2 72.3 L ABG pO2 ABG HCO3 ABG O2 Saturation ABG Base Excess ABG Hemoglobin 11.1 L ABG Oxyhemoglobin 92.4 L ABG Sodium ABG Potassium 5.3 H ABG Chloride 109.0 H ABG Glucose 165 H Oxyhemoglobin Carboxyhemoglobin 0.2 L Sodium Potassium 5.8 H Chloride Carbon Dioxide 16 L BUN 84 H Creatinine 3.2 H Glucose 186 H POC Glucose 133 H Calcium Phosphorus Magnesium Total Bilirubin AST ALT Ammonia Total Creatine Kinase Troponin T C-Reactive Protein NT-Pro-B Natriuret Pep Albumin Triglycerides HDL Cholesterol Lipase Arterial Blood Glucose 165 H Urine WBC (Auto) Urine Creatinine Urine Total Protein Salicylates Acetaminophen 06/08/21 06/08/21 06/08/21 04:20 04:21 04:21 WBC 15.6 H RBC 3.20 L Hgb 9.4 L Hct 30.4 L MCV 95 H MCHC 31 L RDW 18.6 H Plt Count Lymph % (Auto) [place] % (Auto) Lymph # (Auto) [place] # (Auto) Seg Neutrophils % Seg Neuts % (Manual) Lymphocytes % (Manual) Seg Neutrophils # Seg Neutrophils # Man Lymphocytes # (Manual) PT INR APTT D-Dimer ABG pH POC ABG pCO2 POC ABG pO2 ABG pO2 ABG HCO3 ABG O2 Saturation ABG Base Excess ABG Hemoglobin ABG Oxyhemoglobin ABG Sodium ABG Potassium ABG Chloride ABG Glucose Oxyhemoglobin Carboxyhemoglobin Sodium Potassium Chloride 107.3 H Carbon Dioxide 19 L BUN 83 H Creatinine 3.5 H Glucose 139 H POC Glucose Calcium Phosphorus Magnesium Total Bilirubin 1.30 H AST 9433 H ALT 5071 H Ammonia Total Creatine Kinase Troponin T C-Reactive Protein NT-Pro-B Natriuret Pep Albumin 2.3 L Triglycerides HDL Cholesterol Lipase 86 H Arterial Blood Glucose Urine WBC (Auto) Urine Creatinine Urine Total Protein Salicylates Acetaminophen 06/08/21 06/08/21 06/08/21 05:19 11:14 12:19 WBC RBC Hgb Hct MCV MCHC RDW Plt Count Lymph % (Auto) [place] % (Auto) Lymph # (Auto) [place] # (Auto) Seg Neutrophils % Seg Neuts % (Manual) Lymphocytes % (Manual) Seg Neutrophils # Seg Neutrophils # Man Lymphocytes # (Manual) PT INR APTT D-Dimer ABG pH POC ABG pCO2 POC ABG pO2 ABG pO2 ABG HCO3 ABG O2 Saturation ABG Base Excess ABG Hemoglobin ABG Oxyhemoglobin ABG Sodium ABG Potassium ABG Chloride ABG Glucose Oxyhemoglobin Carboxyhemoglobin Sodium Potassium Chloride Carbon Dioxide BUN Creatinine Glucose POC Glucose 142 H 128 H 120 H Calcium Phosphorus Magnesium Total Bilirubin AST ALT Ammonia Total Creatine Kinase Troponin T C-Reactive Protein NT-Pro-B Natriuret Pep Albumin Triglycerides HDL Cholesterol Lipase Arterial Blood Glucose Urine WBC (Auto) Urine Creatinine Urine Total Protein Salicylates Acetaminophen 06/08/21 06/08/21 06/08/21 16:59 17:39 21:00 WBC RBC Hgb Hct MCV MCHC RDW Plt Count Lymph % (Auto) [place] % (Auto) Lymph # (Auto) [place] # (Auto) Seg Neutrophils % Seg Neuts % (Manual) Lymphocytes % (Manual) Seg Neutrophils # Seg Neutrophils # Man Lymphocytes # (Manual) PT INR APTT D-Dimer ABG pH 7.282 L POC ABG pCO2 POC ABG pO2 ABG pO2 91.3 H ABG HCO3 ABG O2 Saturation ABG Base Excess -5.2 L ABG Hemoglobin 9.3 L ABG Oxyhemoglobin ABG Sodium ABG Potassium ABG Chloride ABG Glucose Oxyhemoglobin Carboxyhemoglobin Sodium Potassium Chloride Carbon Dioxide BUN Creatinine Glucose POC Glucose 118 H 121 H Calcium Phosphorus Magnesium Total Bilirubin AST ALT Ammonia Total Creatine Kinase Troponin T C-Reactive Protein NT-Pro-B Natriuret Pep Albumin Triglycerides HDL Cholesterol Lipase Arterial Blood Glucose Urine WBC (Auto) Urine Creatinine Urine Total Protein Salicylates Acetaminophen 06/08/21 06/09/21 06/09/21 Unknown 04:00 04:45 WBC RBC Hgb Hct MCV MCHC RDW Plt Count Lymph % (Auto) [place] % (Auto) Lymph # (Auto) [place] # (Auto) Seg Neutrophils % Seg Neuts % (Manual) Lymphocytes % (Manual) Seg Neutrophils # Seg Neutrophils # Man Lymphocytes # (Manual) PT INR APTT D-Dimer ABG pH 7.291 L POC ABG pCO2 POC ABG pO2 ABG pO2 78.8 L ABG HCO3 ABG O2 Saturation 94.8 L ABG Base Excess -5.1 L ABG Hemoglobin 9.9 L ABG Oxyhemoglobin ABG Sodium ABG Potassium ABG Chloride ABG Glucose Oxyhemoglobin 93.1 L Carboxyhemoglobin Sodium Potassium Chloride Carbon Dioxide 19 L BUN 84 H Creatinine 3.7 H Glucose 124 H POC Glucose Calcium 7.8 L Phosphorus 5.90 H Magnesium Total Bilirubin 2.30 H AST 3183 H ALT 4140 H Ammonia Total Creatine Kinase Troponin T C-Reactive Protein NT-Pro-B Natriuret Pep Albumin 2.1 L Triglycerides 164 H HDL Cholesterol Lipase Arterial Blood Glucose Urine WBC (Auto) Urine Creatinine Urine Total Protein Salicylates Acetaminophen 06/09/21 06/09/21 05:57 11:25 WBC RBC Hgb Hct MCV MCHC RDW Plt Count Lymph % (Auto) [place] % (Auto) Lymph # (Auto) [place] # (Auto) Seg Neutrophils % Seg Neuts % (Manual) Lymphocytes % (Manual) Seg Neutrophils # Seg Neutrophils # Man Lymphocytes # (Manual) PT INR APTT D-Dimer ABG pH POC ABG pCO2 POC ABG pO2 ABG pO2 ABG HCO3 ABG O2 Saturation ABG Base Excess ABG Hemoglobin ABG Oxyhemoglobin ABG Sodium ABG Potassium ABG Chloride ABG Glucose Oxyhemoglobin Carboxyhemoglobin Sodium Potassium Chloride Carbon Dioxide BUN Creatinine Glucose POC Glucose 121 H 113 H Calcium Phosphorus Magnesium Total Bilirubin AST ALT Ammonia Total Creatine Kinase Troponin T C-Reactive Protein NT-Pro-B Natriuret Pep Albumin Triglycerides HDL Cholesterol Lipase Arterial Blood Glucose Urine WBC (Auto) Urine Creatinine Urine Total Protein Salicylates Acetaminophen Allied health notes reviewed: nursing
--- NOTE | 2021-06-09 14:50 | XRay Report ---
CHEST 1 VIEW 06/09/2021 2:25 PM INDICATION / CLINICAL INFORMATION: RIJ trialysis placement. COMPARISON: 06/06/2021 FINDINGS: SUPPORT DEVICES: Interval placement of a right IJ central venous catheter with tip at the cavoatrial junction. Unchanged enteric tube placement. Unchanged positioning of left PICC line HEART / MEDIASTINUM: Stable. LUNGS / PLEURA: Redemonstrated patchy airspace opacities. No pneumothorax. ADDITIONAL FINDINGS: No significant additional findings. IMPRESSION: 1. Interval placement of right IJ central venous catheter with tip at the cavoatrial junction. 2. Otherwise no significant change. Signer Name: Xavier Greer DO Signed: 06/09/2021 2:46 PM Workstation Name: [id number]
[2021-06-09 16:01] LABS: Hepatitis C Virus Antibody Non-Reactive (NonReactive)
[2021-06-09 16:04] LABS: Hepatitis B Surface Antigen Nonreactive (Negative)
--- NOTE | 2021-06-09 17:27 | Procedure Note ---
Date of procedure: 06/09/21 Pre-op diagnosis: Acute hypoxic respiratory failure, acute renal failure Post-op diagnosis: same Procedure: Telephone consent obtained from mother this morning, witnessed by RN. See chart Trialysis catheter was placed in right internal jugular. Sterile technique was utilized. Area prepped with chlorhexidine/ full body drape utilized. Ultrasound guidance was used to find and access the vessel. Line was placed without difficulty. Line was sutured, biopatch placed and tegaderm dressing applied. Chest x-ray to confirm placement. Pt tolerated procedure well. VS remained stable throughout procedure. (time spent placing line not included in daily critical care time) CCT 60 min Anesthesia: local Surgeon: LEFTY STUBBS Job Forwarder: CHASE BASS Estimated blood loss: minimal Condition: critical Disposition: ICU
[2021-06-10] MEDS: NORepinephrine/NS 8 MG-250 ML 8 MG/250 ML INFUS..BTL IV SCH ×3 (00:56→15:46)
[2021-06-10] MEDS: INSULIN REGULAR, HUMAN 100 UNITS/1 ML SUB-Q SCH ×3 (01:10→13:34)
[2021-06-10] MEDS: LINEZOLID 600 MG/300 ML BAG IV SCH ×2 (02:15→14:05)
[2021-06-10] MEDS: CEFEPIME/NS 2 GM/100 ML 2 GM/100 ML BAG IV SCH (04:41)
[2021-06-10] MEDS: PHENYLEPHRINE 100 MG in SODIUM CHLORIDE 0.9% 90 ML IV SCH ×2 (06:34→15:58)
[2021-06-10] MEDS: VASOPRESSIN 20 UNIT in SODIUM CHLORIDE 0.9% 100 ML IV SCH ×2 (06:34→15:59)
[2021-06-10 08:49] LABS: Mean Corpuscular HGB Conc 29 % (32-34); Mean Corpuscular Volume 94 fl (84-94); Platelet Count 158 K/mm3 (140-440); Red Blood Count 3.17 M/mm3 (3.65-5.03); Red Cell Distribution Width 18.4 % (13.2-15.2)
--- NOTE | 2021-06-10 08:55 | Progress Note ---
Assessment and Plan Acute respiratory failure intubated on the vent an echo shows mild to moderate dilated right heart chambers, mild to moderate TR, with at least moderate pulmonary HTN. RVSP 53 mmHG. Normal LVEF 55%. Septic shock Renal failure Morbidly obese Supportive cardiac management. Subjective Date of service: 06/10/21 Principal diagnosis: Acute hypoxemic and hypercapnic resp failure; PUI COVID-19; Pneumonia; FERMIN Interval history: Pt remains on mechanical ventilation and on multiple pressors for support. Objective Vital Signs Temp Pulse Pulse Resp Resp BP Pulse Ox 06/10/21 08:00 122 H 10 L 137/65 97 06/10/21 07:45 87 18 138/60 100 06/10/21 07:30 119 H 26 H 142/60 98 06/10/21 07:15 118 H 23 141/57 98 06/10/21 07:00 120 H 25 H 135/61 94 06/10/21 06:45 114 H 24 131/55 95 06/10/21 06:30 113 H 26 H 125/55 91 06/10/21 06:15 114 H 22 127/53 91 06/10/21 06:00 115 H 26 H 127/54 91 06/10/21 05:45 113 H 30 H 124/53 91 06/10/21 05:30 113 H 29 H 125/58 92 06/10/21 05:26 113 H 130/59 92 06/10/21 05:15 113 H 30 H 130/59 91 06/10/21 05:00 115 H 31 H 125/58 91 06/10/21 04:45 115 H 30 H 121/52 90 06/10/21 04:30 115 H 29 H 124/55 91 06/10/21 04:15 115 H 29 H 129/55 91 06/10/21 04:00 99.2 F 121 H 30 H 124/55 92 06/10/21 03:45 115 H 30 H 129/57 92 06/10/21 03:30 115 H 30 H 124/49 90 06/10/21 03:15 114 H 22 124/60 91 06/10/21 03:00 114 H 26 H 124/58 93 06/10/21 02:45 114 H 26 H 132/53 94 06/10/21 02:30 113 H 22 119/55 94 06/10/21 02:15 113 H 20 125/51 93 06/10/21 02:00 113 H 31 H 124/53 93 06/10/21 01:45 113 H 19 122/52 93 06/10/21 01:30 113 H 16 123/54 92 06/10/21 01:15 114 H 23 123/55 94 06/10/21 01:00 112 H 30 H 128/59 94 06/10/21 00:45 114 H 29 H 112/42 94 06/10/21 00:40 97.5 F L 113 H 18 122/54 06/10/21 00:30 113 H 30 H 122/54 95 06/10/21 00:15 112 H 30 H 114/50 96 06/10/21 00:00 99.1 F 112 H 30 H 112/48 95 06/09/21 23:45 113 H 28 H 118/49 99 06/09/21 23:43 112 H 118/49 98 06/09/21 23:41 113 H 26 H 114/48 100 06/09/21 23:30 113 H 25 H 114/48 100 06/09/21 23:15 114 H 25 H 115/47 100 06/09/21 23:00 114 H 25 H 113/48 100 06/09/21 22:45 116 H 30 H 113/42 100 06/09/21 22:30 114 H 29 H 118/45 98 06/09/21 22:15 118 H 29 H 117/50 99 06/09/21 22:00 113 H 30 H 121/54 97 06/09/21 21:45 114 H 29 H 130/53 100 06/09/21 21:30 112 H 30 H 133/60 97 06/09/21 21:15 98.1 F 116 H 30 H 121/55 95 06/09/21 21:00 115 H 30 H 125/55 96 06/09/21 20:45 116 H 28 H 109/41 95 06/09/21 20:30 115 H 29 H 120/47 95 06/09/21 20:15 114 H 28 H 123/52 93 06/09/21 20:00 98.6 F 112 H 29 H 125/53 95 06/09/21 19:45 113 H 29 H 123/52 95 06/09/21 19:30 117 H 18 106/46 95 06/09/21 19:27 115 H 116 H 30 H 93 06/09/21 19:15 115 H 29 H 117/48 93 06/09/21 19:00 116 H 26 H 114/45 93 06/09/21 18:45 116 H 30 H 123/51 93 06/09/21 18:30 117 H 29 H 118/54 94 06/09/21 18:15 117 H 29 H 127/51 92 06/09/21 18:00 116 H 31 H 129/52 92 06/09/21 17:45 116 H 31 H 119/63 92 06/09/21 17:30 117 H 30 H 131/57 90 06/09/21 17:15 117 H 30 H 117/44 92 06/09/21 17:00 117 H 29 H 144/60 91 06/09/21 16:45 117 H 29 H 144/60 91 06/09/21 16:30 118 H 30 H 142/62 91 06/09/21 16:15 117 H 30 H 134/60 91 06/09/21 16:00 98.1 F 116 H 31 H 129/62 91 06/09/21 15:45 114 H 30 H 126/58 91 06/09/21 15:30 111 H 30 H 128/60 95 06/09/21 15:15 114 H 29 H 130/58 95 06/09/21 15:13 117 H 104/83 95 06/09/21 15:00 117 H 30 H 113/59 99 06/09/21 14:45 121 H 13 114/55 99 06/09/21 14:30 118 H 28 H 109/47 99 06/09/21 14:15 114 H 30 H 109/47 100 06/09/21 14:00 114 H 114 H 31 H 30 H 120/62 100 06/09/21 13:45 109 H 30 H 133/56 100 06/09/21 13:30 116 H 13 111/54 96 06/09/21 13:15 107 H 6 L 115/51 98 06/09/21 13:00 106 H 26 H 138/48 100 06/09/21 12:45 110 H 30 H 137/58 96 06/09/21 12:30 110 H 30 H 127/59 95 06/09/21 12:15 109 H 30 H 132/57 95 06/09/21 12:00 98.1 F 109 H 30 H 128/51 93 06/09/21 11:45 110 H 30 H 125/57 94 06/09/21 11:34 110 H 75/40 96 06/09/21 11:30 113 H 30 H 130/51 94 06/09/21 11:15 112 H 21 133/59 92 06/09/21 11:00 112 H 19 129/58 91 06/09/21 10:45 115 H 22 136/56 91 06/09/21 10:30 115 H 32 H 116/49 93 06/09/21 10:16 100 H 30 H 171/80 97 06/09/21 10:00 83 30 H 117/50 91 06/09/21 09:45 104 H 29 H 123/61 93 06/09/21 09:30 105 H 30 H 111/60 91 06/09/21 09:16 105 H 30 H 111/60 94 06/09/21 09:12 108 H 30 H 06/09/21 09:11 106 H 94/48 91 06/09/21 09:00 105 H 30 H 97/61 92 Pulse Ox 06/10/21 08:00 06/10/21 07:45 06/10/21 07:30 06/10/21 07:15 06/10/21 07:00 06/10/21 06:45 06/10/21 06:30 06/10/21 06:15 06/10/21 06:00 06/10/21 05:45 06/10/21 05:30 06/10/21 05:26 06/10/21 05:15 06/10/21 05:00 06/10/21 04:45 06/10/21 04:30 06/10/21 04:15 06/10/21 04:00 06/10/21 03:45 06/10/21 03:30 06/10/21 03:15 06/10/21 03:00 06/10/21 02:45 06/10/21 02:30 06/10/21 02:15 06/10/21 02:00 06/10/21 01:45 06/10/21 01:30 06/10/21 01:15 06/10/21 01:00 06/10/21 00:45 06/10/21 00:40 99 06/10/21 00:30 06/10/21 00:15 06/10/21 00:00 06/09/21 23:45 06/09/21 23:43 06/09/21 23:41 06/09/21 23:30 06/09/21 23:15 06/09/21 23:00 06/09/21 22:45 06/09/21 22:30 06/09/21 22:15 06/09/21 22:00 06/09/21 21:45 06/09/21 21:30 06/09/21 21:15 99 06/09/21 21:00 06/09/21 20:45 06/09/21 20:30 06/09/21 20:15 06/09/21 20:00 06/09/21 19:45 06/09/21 19:30 06/09/21 19:27 06/09/21 19:15 06/09/21 19:00 06/09/21 18:45 06/09/21 18:30 06/09/21 18:15 06/09/21 18:00 06/09/21 17:45 06/09/21 17:30 06/09/21 17:15 06/09/21 17:00 06/09/21 16:45 06/09/21 16:30 06/09/21 16:15 06/09/21 16:00 06/09/21 15:45 06/09/21 15:30 06/09/21 15:15 06/09/21 15:13 06/09/21 15:00 06/09/21 14:45 06/09/21 14:30 06/09/21 14:15 06/09/21 14:00 06/09/21 13:45 06/09/21 13:30 06/09/21 13:15 06/09/21 13:00 06/09/21 12:45 06/09/21 12:30 06/09/21 12:15 06/09/21 12:00 06/09/21 11:45 06/09/21 11:34 06/09/21 11:30 06/09/21 11:15 06/09/21 11:00 06/09/21 10:45 06/09/21 10:30 06/09/21 10:16 06/09/21 10:00 06/09/21 09:45 06/09/21 09:30 06/09/21 09:16 06/09/21 09:12 06/09/21 09:11 06/09/21 09:00 - Physical Examination General: Other (on mechanical ventilator) Cardiac: Positive: Reg Rate and Rhythm - Allied health notes Allied health notes reviewed: nursing
[2021-06-10 09:00] LABS: Hemoglobin 8.7 gm/dl (11.8-15.2)
[2021-06-10] MEDS: IPRATROPIUM/ALBUTEROL SULFATE 3 ML AMPUL.NEB IH SCH ×2 (09:10→14:48)
[2021-06-10 09:12] LABS: Albumin 2.3 g/dL (3.9-5); Calcium 8.3 mg/dL (8.4-10.2)
[2021-06-10 09:17] LABS: Hematocrit 29.6 % (35.5-45.6)
[2021-06-10] MEDS: QUEtiapine 100 MG TAB PO SCH (09:25)
[2021-06-10] MEDS: FAMOTIDINE 20 MG TAB FEEDTUBE SCH (09:25)
[2021-06-10] MEDS: APIXABAN 2.5 MG TAB PO SCH (09:26)
[2021-06-10] MEDS: SENNOSIDES/DOCUSATE SODIUM 8.6/50 MG TAB FEEDTUBE SCH (09:26)
[2021-06-10] MEDS: fentaNYL DRIP Premix 2,000 MCG/100 ML BAG IV SCH (09:27)
[2021-06-10] MEDS ORDERED: fentaNYL 100 MCG/2 ML INJ ONE (10:56)
[2021-06-10] MEDS ORDERED: fentaNYL 100 MCG/2 ML INJ IV PRN (10:58)
--- NOTE | 2021-06-10 10:58 | Progress Note ---
Assessment and Plan Assessment: Acute Renal Failure likely on CKD Hypertension Acute Respiratory Failure Pneumonia, community-acquired Morbid obesity Obstructive sleep apnea Edema Plan: Renal labs reviewed. On hemodialysis daily for now. UF goal 2500 ml today noted Renally dose medications Obtain daily weights Monitor I/O's daily Avoid nephrotoxic agents Continue to monitor renal function closely Assess dialysis needs daily Plan of care reviewed by Dr. Santos Subjective Date of service: 06/10/21 Principal diagnosis: Acute hypoxemic and hypercapnic resp failure; PUI COVID-19; Pneumonia; FERMIN Interval history: Patient seen lying in bed, he remains intubated and sedated. Objective - Vital Signs Vital signs: Vital Signs - 12hr 06/09/21 06/09/21 06/09/21 23:00 23:15 23:30 Temperature Pulse Rate 114 H 114 H 113 H Pulse Rate [ Anterior Bilateral Throughout] Pulse Rate [ From Monitor] Respiratory 25 H 25 H 25 H Rate Respiratory Rate [Anterior Bilateral Throughout] Blood Pressure 113/48 115/47 114/48 O2 Sat by Pulse 100 100 100 Oximetry O2 Sat by Pulse Oximetry [ Anterior Bilateral Throughout] 06/09/21 06/09/21 06/09/21 23:41 23:43 23:45 Temperature Pulse Rate 113 H 112 H 113 H Pulse Rate [ Anterior Bilateral Throughout] Pulse Rate [ From Monitor] Respiratory 26 H 28 H Rate Respiratory Rate [Anterior Bilateral Throughout] Blood Pressure 114/48 118/49 118/49 O2 Sat by Pulse 100 98 99 Oximetry O2 Sat by Pulse Oximetry [ Anterior Bilateral Throughout] 06/10/21 06/10/21 06/10/21 00:00 00:15 00:30 Temperature 99.1 F Pulse Rate 112 H 112 H 113 H Pulse Rate [ Anterior Bilateral Throughout] Pulse Rate [ From Monitor] Respiratory 30 H 30 H 30 H Rate Respiratory Rate [Anterior Bilateral Throughout] Blood Pressure 112/48 114/50 122/54 O2 Sat by Pulse 95 96 95 Oximetry O2 Sat by Pulse Oximetry [ Anterior Bilateral Throughout] 06/10/21 06/10/21 06/10/21 00:40 00:45 01:00 Temperature 97.5 F L Pulse Rate 113 H 114 H 112 H Pulse Rate [ Anterior Bilateral Throughout] Pulse Rate [ From Monitor] Respiratory 18 29 H 30 H Rate Respiratory Rate [Anterior Bilateral Throughout] Blood Pressure 122/54 112/42 128/59 O2 Sat by Pulse 94 94 Oximetry O2 Sat by Pulse 99 Oximetry [ Anterior Bilateral Throughout] 06/10/21 06/10/21 06/10/21 01:15 01:30 01:45 Temperature Pulse Rate 114 H 113 H 113 H Pulse Rate [ Anterior Bilateral Throughout] Pulse Rate [ From Monitor] Respiratory 23 16 19 Rate Respiratory Rate [Anterior Bilateral Throughout] Blood Pressure 123/55 123/54 122/52 O2 Sat by Pulse 94 92 93 Oximetry O2 Sat by Pulse Oximetry [ Anterior Bilateral Throughout] 06/10/21 06/10/21 06/10/21 02:00 02:15 02:30 Temperature Pulse Rate 113 H 113 H 113 H Pulse Rate [ Anterior Bilateral Throughout] Pulse Rate [ From Monitor] Respiratory 31 H 20 22 Rate Respiratory Rate [Anterior Bilateral Throughout] Blood Pressure 124/53 125/51 119/55 O2 Sat by Pulse 93 93 94 Oximetry O2 Sat by Pulse Oximetry [ Anterior Bilateral Throughout] 06/10/21 06/10/21 06/10/21 02:45 03:00 03:15 Temperature Pulse Rate 114 H 114 H 114 H Pulse Rate [ Anterior Bilateral Throughout] Pulse Rate [ From Monitor] Respiratory 26 H 26 H 22 Rate Respiratory Rate [Anterior Bilateral Throughout] Blood Pressure 132/53 124/58 124/60 O2 Sat by Pulse 94 93 91 Oximetry O2 Sat by Pulse Oximetry [ Anterior Bilateral Throughout] 06/10/21 06/10/21 06/10/21 03:30 03:45 04:00 Temperature 99.2 F Pulse Rate 115 H 115 H 121 H Pulse Rate [ Anterior Bilateral Throughout] Pulse Rate [ From Monitor] Respiratory 30 H 30 H 30 H Rate Respiratory Rate [Anterior Bilateral Throughout] Blood Pressure 124/49 129/57 124/55 O2 Sat by Pulse 90 92 92 Oximetry O2 Sat by Pulse Oximetry [ Anterior Bilateral Throughout] 06/10/21 06/10/21 06/10/21 04:15 04:30 04:45 Temperature Pulse Rate 115 H 115 H 115 H Pulse Rate [ Anterior Bilateral Throughout] Pulse Rate [ From Monitor] Respiratory 29 H 29 H 30 H Rate Respiratory Rate [Anterior Bilateral Throughout] Blood Pressure 129/55 124/55 121/52 O2 Sat by Pulse 91 91 90 Oximetry O2 Sat by Pulse Oximetry [ Anterior Bilateral Throughout] 06/10/21 06/10/21 06/10/21 05:00 05:15 05:26 Temperature Pulse Rate 115 H 113 H 113 H Pulse Rate [ Anterior Bilateral Throughout] Pulse Rate [ From Monitor] Respiratory 31 H 30 H Rate Respiratory Rate [Anterior Bilateral Throughout] Blood Pressure 125/58 130/59 130/59 O2 Sat by Pulse 91 91 92 Oximetry O2 Sat by Pulse Oximetry [ Anterior Bilateral Throughout] 06/10/21 06/10/21 06/10/21 05:30 05:45 06:00 Temperature Pulse Rate 113 H 113 H 115 H Pulse Rate [ Anterior Bilateral Throughout] Pulse Rate [ From Monitor] Respiratory 29 H 30 H 26 H Rate Respiratory Rate [Anterior Bilateral Throughout] Blood Pressure 125/58 124/53 127/54 O2 Sat by Pulse 92 91 91 Oximetry O2 Sat by Pulse Oximetry [ Anterior Bilateral Throughout] 06/10/21 06/10/21 06/10/21 06:15 06:30 06:45 Temperature Pulse Rate 114 H 113 H 114 H Pulse Rate [ Anterior Bilateral Throughout] Pulse Rate [ From Monitor] Respiratory 22 26 H 24 Rate Respiratory Rate [Anterior Bilateral Throughout] Blood Pressure 127/53 125/55 131/55 O2 Sat by Pulse 91 91 95 Oximetry O2 Sat by Pulse Oximetry [ Anterior Bilateral Throughout] 06/10/21 06/10/21 06/10/21 07:00 07:15 07:30 Temperature Pulse Rate 120 H 118 H 119 H Pulse Rate [ Anterior Bilateral Throughout] Pulse Rate [ From Monitor] Respiratory 25 H 23 26 H Rate Respiratory Rate [Anterior Bilateral Throughout] Blood Pressure 135/61 141/57 142/60 O2 Sat by Pulse 94 98 98 Oximetry O2 Sat by Pulse Oximetry [ Anterior Bilateral Throughout] 06/10/21 06/10/21 06/10/21 07:45 08:00 08:15 Temperature 100.0 F H Pulse Rate 87 122 H 121 H Pulse Rate [ Anterior Bilateral Throughout] Pulse Rate [ 112 H From Monitor] Respiratory 18 31 H 28 H Rate Respiratory Rate [Anterior Bilateral Throughout] Blood Pressure 138/60 137/65 135/58 O2 Sat by Pulse 100 95 89 Oximetry O2 Sat by Pulse Oximetry [ Anterior Bilateral Throughout] 06/10/21 06/10/21 06/10/21 08:30 08:45 09:00 Temperature Pulse Rate 157 H 122 H 98 H Pulse Rate [ Anterior Bilateral Throughout] Pulse Rate [ From Monitor] Respiratory 29 H 20 16 Rate Respiratory Rate [Anterior Bilateral Throughout] Blood Pressure 125/61 128/56 133/41 O2 Sat by Pulse 63 L 89 Oximetry O2 Sat by Pulse Oximetry [ Anterior Bilateral Throughout] 06/10/21 06/10/21 06/10/21 09:11 09:12 09:15 Temperature Pulse Rate 123 H 139 H Pulse Rate [ 126 H Anterior Bilateral Throughout] Pulse Rate [ From Monitor] Respiratory 31 H Rate Respiratory 32 H Rate [Anterior Bilateral Throughout] Blood Pressure 131/42 131/42 O2 Sat by Pulse 96 98 Oximetry O2 Sat by Pulse Oximetry [ Anterior Bilateral Throughout] 06/10/21 06/10/21 06/10/21 09:30 09:45 10:00 Temperature Pulse Rate 129 H 129 H 144 H Pulse Rate [ Anterior Bilateral Throughout] Pulse Rate [ From Monitor] Respiratory 31 H 19 18 Rate Respiratory Rate [Anterior Bilateral Throughout] Blood Pressure 124/52 120/46 114/44 O2 Sat by Pulse 94 Oximetry O2 Sat by Pulse Oximetry [ Anterior Bilateral Throughout] 06/10/21 06/10/21 10:15 10:30 Temperature Pulse Rate 154 H Pulse Rate [ Anterior Bilateral Throughout] Pulse Rate [ From Monitor] Respiratory 25 H 19 Rate Respiratory Rate [Anterior Bilateral Throughout] Blood Pressure 116/41 117/47 O2 Sat by Pulse 88 Oximetry O2 Sat by Pulse Oximetry [ Anterior Bilateral Throughout] - General Appearance General appearance: obese, sedated on ventilator, intubated EENT: ATNC Neck: no JVD, supple Respiratory: Present: Decreased Breath Sounds Cardiology: S1S2 Gastrointestinal: normoactive bowel sounds Integumentary: warm and dry Neurologic: other (Sedated) Musculoskeletal: joint swelling - Lab 06/10/21 08:25 06/10/21 08:25 Most recent lab results ABG pH 7.292 (7.320-7.450) L 06/09/21 21:52 ABG pCO2 45.0 mm Hg 06/08/21 Unknown ABG pO2 78.8 mm Hg (80.0-90.0) L 06/08/21 Unknown ABG HCO3 21.2 mmol/L (20.0-26.0) 06/08/21 Unknown ABG O2 Saturation 92.2 (0-100) 06/09/21 21:52 Calcium 8.3 mg/dL (8.4-10.2) L 06/10/21 08:25 Phosphorus 5.90 mg/dL (2.5-4.5) H 06/09/21 04:00 Magnesium 2.30 mg/dL (1.7-2.3) 06/09/21 04:00 Urine Creatinine 222.7 mg/dL (0.1-20.0) H 06/06/21 13:30 Urine Sodium 18 mmol/L 06/06/21 13:30 Urine Total Protein 80 mg/dL (5-11.8) H 05/26/21 12:37 Medications & Allergies - Medications Allergies/Adverse Reactions: Allergies No Known Allergies Allergy (Unverified 05/25/21 12:48) Home Medications: Home Medications Medication Instructions Recorded Confirmed Last Taken Type Amoxicillin [Amoxicillin TAB] 875 mg PO BID #20 tablet 11/12/14 05/29/21 Unknown Rx Apixaban 2.5 mg PO BID 05/29/21 05/29/21 Unknown History Cholecalciferol (Vitamin D3) 3 mg PO 1XW 05/29/21 05/29/21 Unknown History Metoprolol 150 mg PO BID 05/29/21 05/29/21 Unknown History Torsemide 80 mg PO DAILY 05/29/21 05/29/21 Unknown History Active Medications: Generic Name Dose Route Start Last Admin Trade Name Freq PRN Reason Stop Dose Admin Acetaminophen 650 mg 05/23/21 20:42 06/06/21 22:42 Acetaminophen 325 Mg Tab PO 650 mg Q4H PRN Administration Pain MILD(1-3)/Fever >100.5/CASTORENA Albuterol 2.5 mg 05/23/21 21:11 Albuterol 2.5 Mg/3 Ml Nebu IH Q4HRT PRN Shortness Of Breath Albuterol/Ipratropium 1 ampul 05/29/21 08:00 06/10/21 09:10 Ipratropium/Albuterol Sulfate 3 Ml Ampul.Neb IH 1 ampul TIDRT ROSEMARIE Administration Lipase/Protease/Amylase 1 each 05/24/21 10:14 Lipase 10,500/Protease 25,000/Amylase 43,750 (Units) Dr Higgins FEEDTUBE PRN PRN For Clogged Feeding Tube Apixaban 2.5 mg 05/29/21 13:00 06/10/21 09:26 Apixaban 2.5 Mg Tab PO 2.5 mg Q12HR ROSEMARIE Administration Protocol Dextrose 50 ml 06/08/21 10:33 Dextrose 50% In Water (25gm) 50 Ml Syringe IV Q30MIN PRN Hypoglycemia Protocol Famotidine 10 mg 06/06/21 22:00 06/10/21 09:25 Famotidine 20 Mg Tab FEEDTUBE 10 mg BID ROSEMARIE Administration Hydrophilic Ointment 1 applic 05/23/21 12:34 Lip Therapy Vaseline TP Q2HR PRN Dry Lips Fentanyl Citrate 2,000 mcg in 100 mls @ 8.528 mls/hr 05/23/21 13:00 06/10/21 09:27 Fentanyl Drip Premix IV 1 mcg/kg/hr TITR ROSEMARIE 8.528 mls/hr Administration Protocol 1 MCG/KG/HR Cefepime HCl 2 gm in 100 mls @ 200 mls/hr 06/07/21 04:00 06/10/21 04:41 Cefepime/Ns 2 Gm/100 Ml IV 200 mls/hr Q24H ROSEMARIE Administration Protocol Sodium Chloride 500 mls @ 1 mls/hr 06/06/21 13:40 06/06/21 14:18 Nacl 0.9% 500 Ml IV 1 mls/hr DIRECT PRN Administration ARTERIAL LINE FLUSH Vasopressin 20 unit/ Sodium 101 mls @ 9.09 mls/hr 06/06/21 15:00 06/10/21 06:34 Chloride IV 0.03 units/min TITR ROSEMARIE 9.09 mls/hr Administration Protocol 0.03 UNITS/MIN Phenylephrine HCl 100 mg/ 100 mls @ 3 mls/hr 06/06/21 19:00 06/10/21 09:46 Sodium Chloride IV 120 mcg/min TITR ROSEMARIE 7.2 mls/hr Titration Protocol 50 MCG/MIN NORepinephrine/NS 8 MG-250 ML 8 mg in 250 mls @ 3.75 mls/hr 06/07/21 09:00 06/10/21 07:28 Norepinephrine/Ns 8 Mg-250 Ml (Double Conc) IV 16 mcg/min TITRATE ROSEMARIE 30 mls/hr Administration Protocol 2 MCG/MIN Linezolid 600 mg in 300 mls @ 300 mls/hr 06/07/21 14:00 06/10/21 02:15 Zyvox 600mg/300ml IV 300 mls/hr Q12H ROSEMARIE Administration Protocol Propofol 1,000 mg in 100 mls @ 3.018 mls/hr 06/07/21 15:00 06/08/21 20:00 Diprivan 10 Mg/Ml IV 5 mcg/kg/min TITR ROSEMARIE 3.018 mls/hr Titration Protocol 5 MCG/KG/MIN Insulin Human Regular 0 units 06/08/21 12:00 06/10/21 06:06 Insulin Regular, Human 100 Units/1 Ml SUB-Q Not Given Q6H ROSEMARIE Protocol Multi-Ingred Cream/Lotion/Oil/Oint 1 applic 05/23/21 12:34 05/30/21 22:14 Mineral Oil/Petrolatum, White Ophth Oint 3.5 Gm OU 1 applic Q4HR PRN Administration Dry Eye(s) Ondansetron HCl 4 mg 05/23/21 20:42 Ondansetron 4 Mg/2 Ml Inj IV Q8H PRN Nausea And Vomiting Quetiapine Fumarate 100 mg 06/03/21 22:00 06/10/21 09:25 Quetiapine 100 Mg Tab PO 100 mg BID ROSEMARIE Administration Senna/Docusate Sodium 1 tab 05/23/21 22:00 06/10/21 09:26 Sennosides/Docusate Sodium 8.6/50 Mg Tab FEEDTUBE 1 tab BID ROSEMARIE Administration Simple Syrup 15 ml 05/24/21 10:14 Simple Syrup 15 Ml FEEDTUBE PRN PRN Hypoglycemia Simple Syrup 30 ml 05/24/21 10:14 Simple Syrup 15 Ml FEEDTUBE PRN PRN Hypoglycemia Sodium Bicarbonate 325 mg 05/24/21 10:14 Sodium Bicarbonate 325 Mg Tab FEEDTUBE PRN PRN For Clogged Feeding Tube Sodium Chloride 10 ml 05/23/21 22:00 06/10/21 09:29 Sodium Chloride 0.9% 10 Ml Flush Syringe IV 10 ml BID ROSEMARIE Administration Sodium Chloride 10 ml 05/23/21 20:42 Sodium Chloride 0.9% 10 Ml Flush Syringe IV PRN PRN LINE FLUSH
[2021-06-10] MEDS ORDERED: fentaNYL DRIP Premix 2,000 MCG/100 ML BAG IV SCH (11:00)
--- NOTE | 2021-06-10 12:16 | Progress Note ---
Assessment and Plan Acute possibly on chronic hypoxemic and hypercapnic respiratory failure Pneumonia, community-acquired Acute toxic metabolic encephalopathy Person under investigation for COVID-19 Morbid obesity Obstructive sleep apnea History of hypertension Acute kidney injury Hyperkalemia Elevated serum transaminases Possible shock liver Hyperammonemia Non-ST elevation myocardial infarction - continue compensatory hyperventilation fo now - s/p Vascath placement now - US chest without enough fluid for thoracentesis - repeat ABG at 9pm tonight - transaminases trending down - continue Zyvox for MRSA pneumonia - continue care as below otherwise; - wean vasopressors for target MAP > 65 mmHg - continue Eliquis - continue Revatio re: pulm HTN - nephrology input appreciated (azotemia improving) - continue Daily SAT and SBT assessment as tolerated - continue to wean supplemental oxygen for target O2 sat's > 90% acutely - VAP bundle addressed - continue lung protective strategies - continue bronchodilators with pulmonary hygiene per RT - wean per pulmonary driven protocols otherwise - avoid nephrotoxins, renally dose all medications - continue accuchecks with glycemic control per SSI (While critically ill target blood glucose of 140-180 mg/dL; avoid hypoglycemia) - sedation prn for target RASS 0 to -1 - continue to avoid benzodiazepine's, reduce the possibility of delirium - de-escalate antiinfective's per ID recommendations - prn analgesia per CPOT score - Maintenance of sleep-wake cycle, avoid delirium - continue enteral nutritional support at goal rate as tolerated - G.I. & VTE prophylaxis - PT/OT/ROM exercises - continue mobility protocols for pressure ulcer prophylaxis - Monitor hemodynamics closely - continue other care per attending / other consultants - discharge planning ongoing concurrently COVID SPECIFIC INTERVENTIONS - COVID-19 test result pending .... Re-evaluate in am & prn CONDITION: CRITICAL PROGNOSIS: GUARDED CODE STATUS: FULL CODE The high probability of a clinically significant, sudden or life-threatening deterioration of the [respiratory, cardiovascular, renal & neurologic] system(s) required my full and direct attention, intervention and personal management. The aggregate critical care time was [37] minutes without overlap. Time includes spent on; [x] Data Review and interpretation [x] Patient assessment and monitoring of vital signs [x] Documentation [x] Medication orders and management Subjective Date of service: 06/10/21 Principal diagnosis: Acute hypoxemic and hypercapnic resp failure; PUI COVID-19; Pneumonia; FERMIN Interval history: Patient is seen today for: Acute hypoxemic and hypercapnic respiratory failure; PUI NCOVID-19; Pneumonia; CAP; FERMIN; REVA Seen and examined at bedside; 24hour events reviewed; nursing and respiratory care staff consulted; no adverse overnight events reported to me; remains on MVS; Objective Vital Signs - 12hr 06/10/21 06/10/21 06/10/21 00:30 00:40 00:45 Temperature 97.5 F L Pulse Rate 113 H 113 H 114 H Pulse Rate [ Anterior Bilateral Throughout] Pulse Rate [ From Monitor] Respiratory 30 H 18 29 H Rate Respiratory Rate [Anterior Bilateral Throughout] Blood Pressure 122/54 122/54 112/42 O2 Sat by Pulse 95 94 Oximetry O2 Sat by Pulse 99 Oximetry [ Anterior Bilateral Throughout] 06/10/21 06/10/21 06/10/21 01:00 01:15 01:30 Temperature Pulse Rate 112 H 114 H 113 H Pulse Rate [ Anterior Bilateral Throughout] Pulse Rate [ From Monitor] Respiratory 30 H 23 16 Rate Respiratory Rate [Anterior Bilateral Throughout] Blood Pressure 128/59 123/55 123/54 O2 Sat by Pulse 94 94 92 Oximetry O2 Sat by Pulse Oximetry [ Anterior Bilateral Throughout] 06/10/21 06/10/21 06/10/21 01:45 02:00 02:15 Temperature Pulse Rate 113 H 113 H 113 H Pulse Rate [ Anterior Bilateral Throughout] Pulse Rate [ From Monitor] Respiratory 19 31 H 20 Rate Respiratory Rate [Anterior Bilateral Throughout] Blood Pressure 122/52 124/53 125/51 O2 Sat by Pulse 93 93 93 Oximetry O2 Sat by Pulse Oximetry [ Anterior Bilateral Throughout] 06/10/21 06/10/21 06/10/21 02:30 02:45 03:00 Temperature Pulse Rate 113 H 114 H 114 H Pulse Rate [ Anterior Bilateral Throughout] Pulse Rate [ From Monitor] Respiratory 22 26 H 26 H Rate Respiratory Rate [Anterior Bilateral Throughout] Blood Pressure 119/55 132/53 124/58 O2 Sat by Pulse 94 94 93 Oximetry O2 Sat by Pulse Oximetry [ Anterior Bilateral Throughout] 06/10/21 06/10/21 06/10/21 03:15 03:30 03:45 Temperature Pulse Rate 114 H 115 H 115 H Pulse Rate [ Anterior Bilateral Throughout] Pulse Rate [ From Monitor] Respiratory 22 30 H 30 H Rate Respiratory Rate [Anterior Bilateral Throughout] Blood Pressure 124/60 124/49 129/57 O2 Sat by Pulse 91 90 92 Oximetry O2 Sat by Pulse Oximetry [ Anterior Bilateral Throughout] 06/10/21 06/10/21 06/10/21 04:00 04:15 04:30 Temperature 99.2 F Pulse Rate 121 H 115 H 115 H Pulse Rate [ Anterior Bilateral Throughout] Pulse Rate [ From Monitor] Respiratory 30 H 29 H 29 H Rate Respiratory Rate [Anterior Bilateral Throughout] Blood Pressure 124/55 129/55 124/55 O2 Sat by Pulse 92 91 91 Oximetry O2 Sat by Pulse Oximetry [ Anterior Bilateral Throughout] 06/10/21 06/10/21 06/10/21 04:45 05:00 05:15 Temperature Pulse Rate 115 H 115 H 113 H Pulse Rate [ Anterior Bilateral Throughout] Pulse Rate [ From Monitor] Respiratory 30 H 31 H 30 H Rate Respiratory Rate [Anterior Bilateral Throughout] Blood Pressure 121/52 125/58 130/59 O2 Sat by Pulse 90 91 91 Oximetry O2 Sat by Pulse Oximetry [ Anterior Bilateral Throughout] 06/10/21 06/10/21 06/10/21 05:26 05:30 05:45 Temperature Pulse Rate 113 H 113 H 113 H Pulse Rate [ Anterior Bilateral Throughout] Pulse Rate [ From Monitor] Respiratory 29 H 30 H Rate Respiratory Rate [Anterior Bilateral Throughout] Blood Pressure 130/59 125/58 124/53 O2 Sat by Pulse 92 92 91 Oximetry O2 Sat by Pulse Oximetry [ Anterior Bilateral Throughout] 06/10/21 06/10/21 06/10/21 06:00 06:15 06:30 Temperature Pulse Rate 115 H 114 H 113 H Pulse Rate [ Anterior Bilateral Throughout] Pulse Rate [ From Monitor] Respiratory 26 H 22 26 H Rate Respiratory Rate [Anterior Bilateral Throughout] Blood Pressure 127/54 127/53 125/55 O2 Sat by Pulse 91 91 91 Oximetry O2 Sat by Pulse Oximetry [ Anterior Bilateral Throughout] 06/10/21 06/10/21 06/10/21 06:45 07:00 07:15 Temperature Pulse Rate 114 H 120 H 118 H Pulse Rate [ Anterior Bilateral Throughout] Pulse Rate [ From Monitor] Respiratory 24 25 H 23 Rate Respiratory Rate [Anterior Bilateral Throughout] Blood Pressure 131/55 135/61 141/57 O2 Sat by Pulse 95 94 98 Oximetry O2 Sat by Pulse Oximetry [ Anterior Bilateral Throughout] 06/10/21 06/10/21 06/10/21 07:30 07:45 08:00 Temperature 100.0 F H Pulse Rate 119 H 87 122 H Pulse Rate [ Anterior Bilateral Throughout] Pulse Rate [ 112 H From Monitor] Respiratory 26 H 18 31 H Rate Respiratory Rate [Anterior Bilateral Throughout] Blood Pressure 142/60 138/60 137/65 O2 Sat by Pulse 98 100 95 Oximetry O2 Sat by Pulse Oximetry [ Anterior Bilateral Throughout] 06/10/21 06/10/21 06/10/21 08:15 08:30 08:45 Temperature Pulse Rate 121 H 157 H 122 H Pulse Rate [ Anterior Bilateral Throughout] Pulse Rate [ From Monitor] Respiratory 28 H 29 H 20 Rate Respiratory Rate [Anterior Bilateral Throughout] Blood Pressure 135/58 125/61 128/56 O2 Sat by Pulse 89 63 L Oximetry O2 Sat by Pulse Oximetry [ Anterior Bilateral Throughout] 06/10/21 06/10/21 06/10/21 09:00 09:11 09:12 Temperature Pulse Rate 98 H 123 H Pulse Rate [ 126 H Anterior Bilateral Throughout] Pulse Rate [ From Monitor] Respiratory 16 Rate Respiratory 32 H Rate [Anterior Bilateral Throughout] Blood Pressure 133/41 131/42 O2 Sat by Pulse 89 96 Oximetry O2 Sat by Pulse Oximetry [ Anterior Bilateral Throughout] 06/10/21 06/10/21 06/10/21 09:15 09:30 09:45 Temperature Pulse Rate 139 H 129 H 129 H Pulse Rate [ Anterior Bilateral Throughout] Pulse Rate [ From Monitor] Respiratory 31 H 31 H 19 Rate Respiratory Rate [Anterior Bilateral Throughout] Blood Pressure 131/42 124/52 120/46 O2 Sat by Pulse 98 94 Oximetry O2 Sat by Pulse Oximetry [ Anterior Bilateral Throughout] 06/10/21 06/10/21 06/10/21 10:00 10:15 10:30 Temperature Pulse Rate 144 H 154 H Pulse Rate [ Anterior Bilateral Throughout] Pulse Rate [ From Monitor] Respiratory 18 25 H 19 Rate Respiratory Rate [Anterior Bilateral Throughout] Blood Pressure 114/44 116/41 117/47 O2 Sat by Pulse 88 Oximetry O2 Sat by Pulse Oximetry [ Anterior Bilateral Throughout] 06/10/21 06/10/21 06/10/21 10:45 11:00 11:15 Temperature Pulse Rate 131 H 135 H 135 H Pulse Rate [ Anterior Bilateral Throughout] Pulse Rate [ From Monitor] Respiratory 25 H 25 H 21 Rate Respiratory Rate [Anterior Bilateral Throughout] Blood Pressure 114/45 109/49 111/48 O2 Sat by Pulse 87 Oximetry O2 Sat by Pulse Oximetry [ Anterior Bilateral Throughout] 06/10/21 06/10/21 06/10/21 11:30 11:45 12:00 Temperature Pulse Rate 131 H 132 H 128 H Pulse Rate [ Anterior Bilateral Throughout] Pulse Rate [ From Monitor] Respiratory 25 H 26 H 27 H Rate Respiratory Rate [Anterior Bilateral Throughout] Blood Pressure 111/43 110/44 98/39 O2 Sat by Pulse 92 Oximetry O2 Sat by Pulse Oximetry [ Anterior Bilateral Throughout] Constitutional: appears uncomfortable, other (middle aged morbidly obese male with mildly increased respiratory effort at rest on MVS) Eyes: non-icteric ENT: oropharynx moist, other (ETT 24 cm FRANCIS) Neck: supple, no lymphadenopathy, no JVD Effort: mildly labored Ascultation: Bilateral: diminished breath sounds, rales, rhonchi Percussion: Bilateral: not dull Cardiovascular: regular rate and rhythm Gastrointestinal: normoactive bowel sounds, soft, non-tender, non-distended Integumentary: rash (stasis dermatitis) Extremities: no cyanosis, pulses normal, no ischemia or petechiae, edema (trace) Neurologic: non-focal exam (grossly), pupils equal and round, CN II-XII normal, other (sedated) Psychiatric: other (sedated) CBC and BMP: 06/10/21 08:25 06/10/21 08:25 ABG, PT/INR, D-dimer: ABG ABG pH 7.292 (7.320-7.450) L 06/09/21 21:52 POC ABG pCO2 48.4 mmHg (32.0-48.0) H 06/09/21 21:52 ABG pCO2 45.0 mm Hg 06/08/21 Unknown POC ABG pO2 67.1 mmHg (83-108) L 06/09/21 21:52 ABG pO2 78.8 mm Hg (80.0-90.0) L 06/08/21 Unknown POC ABG HCO3 22.9 06/09/21 21:52 ABG O2 Saturation 92.2 (0-100) 06/09/21 21:52 PT/INR, D-dimer PT 15.3 Sec. (12.2-14.9) H 05/29/21 13:40 INR 1.09 (0.87-1.13) 05/29/21 13:40 D-Dimer 4444.85 ng/mlDDU (0-234) H 05/23/21 15:09 Abnormal lab findings: Abnormal Labs 05/23/21 05/23/21 05/23/21 15:00 15:09 15:09 WBC RBC Hgb Hct MCV 95 H MCH MCHC 30 L RDW 20.1 H Plt Count Lymph % (Auto) 5.9 L [place] % (Auto) Lymph # (Auto) 0.6 L [place] # (Auto) Seg Neutrophils % 87.5 H Seg Neuts % (Manual) Lymphocytes % (Manual) Seg Neutrophils # 8.2 H Seg Neutrophils # Man Lymphocytes # (Manual) PT 18.1 H INR 1.36 H APTT 23.1 L D-Dimer ABG pH 7.215 L POC ABG pCO2 POC ABG pO2 ABG pO2 ABG HCO3 28.4 H ABG O2 Saturation ABG Base Excess ABG Hemoglobin 13.5 L ABG Oxyhemoglobin ABG Sodium ABG Potassium ABG Chloride ABG Glucose Oxyhemoglobin 92.6 L Carboxyhemoglobin Sodium Potassium Chloride Carbon Dioxide BUN Creatinine Glucose POC Glucose Calcium Phosphorus Magnesium Total Bilirubin AST ALT Ammonia Total Creatine Kinase Troponin T C-Reactive Protein NT-Pro-B Natriuret Pep Albumin Triglycerides HDL Cholesterol Lipase Arterial Blood Glucose Urine WBC (Auto) Urine Creatinine Urine Total Protein Salicylates Acetaminophen 05/23/21 05/23/21 05/23/21 15:09 15:09 15:09 WBC RBC Hgb Hct MCV MCH MCHC RDW Plt Count Lymph % (Auto) [place] % (Auto) Lymph # (Auto) [place] # (Auto) Seg Neutrophils % Seg Neuts % (Manual) Lymphocytes % (Manual) Seg Neutrophils # Seg Neutrophils # Man Lymphocytes # (Manual) PT INR APTT D-Dimer ABG pH POC ABG pCO2 POC ABG pO2 ABG pO2 ABG HCO3 ABG O2 Saturation ABG Base Excess ABG Hemoglobin ABG Oxyhemoglobin ABG Sodium ABG Potassium ABG Chloride ABG Glucose Oxyhemoglobin Carboxyhemoglobin Sodium Potassium 5.2 H Chloride Carbon Dioxide BUN 40 H Creatinine 3.2 H Glucose 133 H POC Glucose Calcium Phosphorus Magnesium Total Bilirubin AST 1094 H ALT 1089 H Ammonia 75.0 H Total Creatine Kinase Troponin T 0.038 H C-Reactive Protein NT-Pro-B Natriuret Pep Albumin 3.0 L Triglycerides HDL Cholesterol 29 L Lipase Arterial Blood Glucose Urine WBC (Auto) Urine Creatinine Urine Total Protein Salicylates < 0.3 L Acetaminophen 05/23/21 05/23/21 05/23/21 15:09 15:09 15:09 WBC RBC Hgb Hct MCV MCH MCHC RDW Plt Count Lymph % (Auto) [place] % (Auto) Lymph # (Auto) [place] # (Auto) Seg Neutrophils % Seg Neuts % (Manual) Lymphocytes % (Manual) Seg Neutrophils # Seg Neutrophils # Man Lymphocytes # (Manual) PT INR APTT D-Dimer 4444.85 H ABG pH POC ABG pCO2 POC ABG pO2 ABG pO2 ABG HCO3 ABG O2 Saturation ABG Base Excess ABG Hemoglobin ABG Oxyhemoglobin ABG Sodium ABG Potassium ABG Chloride ABG Glucose Oxyhemoglobin Carboxyhemoglobin Sodium Potassium Chloride Carbon Dioxide BUN Creatinine Glucose POC Glucose Calcium Phosphorus Magnesium Total Bilirubin AST ALT Ammonia Total Creatine Kinase 48 L Troponin T C-Reactive Protein NT-Pro-B Natriuret Pep 24226 H Albumin Triglycerides HDL Cholesterol Lipase Arterial Blood Glucose Urine WBC (Auto) Urine Creatinine Urine Total Protein Salicylates Acetaminophen 5.0 L 05/23/21 05/23/21 05/23/21 19:10 20:48 Unknown WBC RBC Hgb Hct MCV MCH MCHC RDW Plt Count Lymph % (Auto) [place] % (Auto) Lymph # (Auto) [place] # (Auto) Seg Neutrophils % Seg Neuts % (Manual) Lymphocytes % (Manual) Seg Neutrophils # Seg Neutrophils # Man Lymphocytes # (Manual) PT INR APTT D-Dimer ABG pH 7.332 L POC ABG pCO2 POC ABG pO2 ABG pO2 74.0 L ABG HCO3 ABG O2 Saturation 94.4 L ABG Base Excess ABG Hemoglobin 12.5 L ABG Oxyhemoglobin ABG Sodium ABG Potassium ABG Chloride ABG Glucose Oxyhemoglobin 92.3 L Carboxyhemoglobin Sodium Potassium Chloride Carbon Dioxide BUN Creatinine Glucose POC Glucose Calcium Phosphorus Magnesium Total Bilirubin AST ALT Ammonia Total Creatine Kinase Troponin T C-Reactive Protein 10.00 H NT-Pro-B Natriuret Pep Albumin Triglycerides HDL Cholesterol Lipase Arterial Blood Glucose Urine WBC (Auto) 34.0 H Urine Creatinine Urine Total Protein Salicylates Acetaminophen 05/24/21 05/24/21 05/24/21 04:55 04:55 09:15 WBC RBC Hgb Hct MCV 95 H MCH MCHC 31 L RDW 19.4 H Plt Count Lymph % (Auto) [place] % (Auto) Lymph # (Auto) [place] # (Auto) Seg Neutrophils % Seg Neuts % (Manual) 97.0 H Lymphocytes % (Manual) 3.0 L Seg Neutrophils # Seg Neutrophils # Man 8.4 H Lymphocytes # (Manual) 0.3 L PT INR APTT D-Dimer ABG pH POC ABG pCO2 POC ABG pO2 ABG pO2 90.6 H ABG HCO3 ABG O2 Saturation ABG Base Excess -3.7 L ABG Hemoglobin 13.5 L ABG Oxyhemoglobin ABG Sodium ABG Potassium ABG Chloride ABG Glucose Oxyhemoglobin Carboxyhemoglobin Sodium Potassium 5.5 H Chloride Carbon Dioxide 20 L BUN 39 H Creatinine 2.2 H Glucose 155 H POC Glucose Calcium 8.3 L Phosphorus Magnesium Total Bilirubin AST 571 H ALT 951 H Ammonia Total Creatine Kinase Troponin T C-Reactive Protein NT-Pro-B Natriuret Pep Albumin 3.2 L Triglycerides HDL Cholesterol Lipase Arterial Blood Glucose Urine WBC (Auto) Urine Creatinine Urine Total Protein Salicylates Acetaminophen 05/25/21 05/25/21 05/25/21 04:20 14:37 14:37 WBC RBC Hgb Hct MCV 96 H MCH MCHC 30 L RDW 20.7 H Plt Count Lymph % (Auto) [place] % (Auto) Lymph # (Auto) [place] # (Auto) Seg Neutrophils % Seg Neuts % (Manual) Lymphocytes % (Manual) Seg Neutrophils # Seg Neutrophils # Man Lymphocytes # (Manual) PT INR APTT D-Dimer ABG pH 7.222 L POC ABG pCO2 57.8 H POC ABG pO2 67.3 L ABG pO2 ABG HCO3 ABG O2 Saturation ABG Base Excess ABG Hemoglobin ABG Oxyhemoglobin 89.1 L ABG Sodium ABG Potassium 5.1 H ABG Chloride ABG Glucose 182 H Oxyhemoglobin Carboxyhemoglobin Sodium Potassium 5.3 H Chloride Carbon Dioxide BUN 47 H Creatinine 2.0 H Glucose 154 H POC Glucose Calcium Phosphorus Magnesium Total Bilirubin AST 93 H ALT 590 H Ammonia Total Creatine Kinase Troponin T C-Reactive Protein NT-Pro-B Natriuret Pep Albumin 3.6 L Triglycerides HDL Cholesterol Lipase Arterial Blood Glucose 182 H Urine WBC (Auto) Urine Creatinine Urine Total Protein Salicylates Acetaminophen 05/25/21 05/25/21 05/26/21 21:50 23:30 05:31 WBC RBC Hgb Hct MCV MCH MCHC RDW Plt Count Lymph % (Auto) [place] % (Auto) Lymph # (Auto) [place] # (Auto) Seg Neutrophils % Seg Neuts % (Manual) Lymphocytes % (Manual) Seg Neutrophils # Seg Neutrophils # Man Lymphocytes # (Manual) PT INR APTT D-Dimer ABG pH 7.328 L POC ABG pCO2 POC ABG pO2 ABG pO2 63.3 L ABG HCO3 ABG O2 Saturation 92.1 L ABG Base Excess -2.4 L ABG Hemoglobin 11.3 L ABG Oxyhemoglobin ABG Sodium ABG Potassium ABG Chloride ABG Glucose Oxyhemoglobin 90.3 L Carboxyhemoglobin Sodium Potassium Chloride Carbon Dioxide BUN Creatinine Glucose POC Glucose 131 H 123 H Calcium Phosphorus Magnesium Total Bilirubin AST ALT Ammonia Total Creatine Kinase Troponin T C-Reactive Protein NT-Pro-B Natriuret Pep Albumin Triglycerides HDL Cholesterol Lipase Arterial Blood Glucose Urine WBC (Auto) Urine Creatinine Urine Total Protein Salicylates Acetaminophen 05/26/21 05/26/21 05/26/21 09:02 10:57 12:37 WBC RBC Hgb Hct MCV MCH MCHC RDW Plt Count Lymph % (Auto) [place] % (Auto) Lymph # (Auto) [place] # (Auto) Seg Neutrophils % Seg Neuts % (Manual) Lymphocytes % (Manual) Seg Neutrophils # Seg Neutrophils # Man Lymphocytes # (Manual) PT INR APTT D-Dimer ABG pH 7.346 L POC ABG pCO2 POC ABG pO2 ABG pO2 60.5 L ABG HCO3 ABG O2 Saturation 90.7 L ABG Base Excess ABG Hemoglobin 13.1 L ABG Oxyhemoglobin ABG Sodium ABG Potassium ABG Chloride ABG Glucose Oxyhemoglobin 88.9 L Carboxyhemoglobin Sodium Potassium Chloride Carbon Dioxide BUN Creatinine Glucose POC Glucose 127 H Calcium Phosphorus Magnesium Total Bilirubin AST ALT Ammonia Total Creatine Kinase Troponin T C-Reactive Protein NT-Pro-B Natriuret Pep Albumin Triglycerides HDL Cholesterol Lipase Arterial Blood Glucose Urine WBC (Auto) Urine Creatinine 79.3 H Urine Total Protein 80 H Salicylates Acetaminophen 05/26/21 05/26/21 05/26/21 17:30 21:00 Unknown WBC 4.2 L RBC Hgb 11.7 L Hct MCV MCH MCHC 31 L RDW 20.3 H Plt Count 132 L Lymph % (Auto) [place] % (Auto) Lymph # (Auto) [place] # (Auto) Seg Neutrophils % Seg Neuts % (Manual) Lymphocytes % (Manual) Seg Neutrophils # Seg Neutrophils # Man Lymphocytes # (Manual) PT INR APTT D-Dimer ABG pH POC ABG pCO2 POC ABG pO2 56.7 L ABG pO2 ABG HCO3 ABG O2 Saturation ABG Base Excess ABG Hemoglobin ABG Oxyhemoglobin 88.8 L ABG Sodium ABG Potassium 4.7 H ABG Chloride ABG Glucose 152 H Oxyhemoglobin Carboxyhemoglobin Sodium Potassium Chloride Carbon Dioxide BUN Creatinine Glucose POC Glucose 141 H Calcium Phosphorus Magnesium Total Bilirubin AST ALT Ammonia Total Creatine Kinase Troponin T C-Reactive Protein NT-Pro-B Natriuret Pep Albumin Triglycerides HDL Cholesterol Lipase Arterial Blood Glucose 152 H Urine WBC (Auto) Urine Creatinine Urine Total Protein Salicylates Acetaminophen 05/26/21 05/26/21 05/27/21 Unknown Unknown 08:00 WBC 4.2 L RBC Hgb Hct MCV MCH MCHC RDW 21.2 H Plt Count 126 L Lymph % (Auto) [place] % (Auto) Lymph # (Auto) [place] # (Auto) Seg Neutrophils % Seg Neuts % (Manual) Lymphocytes % (Manual) Seg Neutrophils # Seg Neutrophils # Man Lymphocytes # (Manual) PT INR APTT D-Dimer ABG pH POC ABG pCO2 POC ABG pO2 ABG pO2 ABG HCO3 ABG O2 Saturation ABG Base Excess ABG Hemoglobin ABG Oxyhemoglobin ABG Sodium ABG Potassium ABG Chloride ABG Glucose Oxyhemoglobin Carboxyhemoglobin Sodium Potassium 5.2 H Chloride Carbon Dioxide BUN 47 H Creatinine 2.0 H Glucose 136 H POC Glucose Calcium Phosphorus Magnesium Total Bilirubin AST 64 H ALT 448 H Ammonia Total Creatine Kinase Troponin T C-Reactive Protein NT-Pro-B Natriuret Pep Albumin 3.4 L Triglycerides HDL Cholesterol Lipase Arterial Blood Glucose Urine WBC (Auto) Urine Creatinine 128.6 H Urine Total Protein Salicylates Acetaminophen 05/27/21 05/27/21 05/27/21 08:00 10:15 11:48 WBC RBC Hgb Hct MCV MCH MCHC RDW Plt Count Lymph % (Auto) [place] % (Auto) Lymph # (Auto) [place] # (Auto) Seg Neutrophils % Seg Neuts % (Manual) Lymphocytes % (Manual) Seg Neutrophils # Seg Neutrophils # Man Lymphocytes # (Manual) PT INR APTT D-Dimer ABG pH 7.300 L POC ABG pCO2 POC ABG pO2 ABG pO2 42.1 L ABG HCO3 ABG O2 Saturation 72.8 L ABG Base Excess ABG Hemoglobin 12.7 L ABG Oxyhemoglobin ABG Sodium ABG Potassium ABG Chloride ABG Glucose Oxyhemoglobin 71.4 L Carboxyhemoglobin Sodium Potassium Chloride Carbon Dioxide BUN 52 H Creatinine 1.8 H Glucose 171 H POC Glucose 139 H Calcium 8.3 L Phosphorus Magnesium Total Bilirubin AST ALT Ammonia Total Creatine Kinase Troponin T C-Reactive Protein NT-Pro-B Natriuret Pep Albumin Triglycerides HDL Cholesterol Lipase Arterial Blood Glucose Urine WBC (Auto) Urine Creatinine Urine Total Protein Salicylates Acetaminophen 05/27/21 05/28/21 05/28/21 17:13 05:30 11:37 WBC RBC Hgb Hct MCV MCH MCHC RDW Plt Count Lymph % (Auto) [place] % (Auto) Lymph # (Auto) [place] # (Auto) Seg Neutrophils % Seg Neuts % (Manual) Lymphocytes % (Manual) Seg Neutrophils # Seg Neutrophils # Man Lymphocytes # (Manual) PT INR APTT D-Dimer ABG pH POC ABG pCO2 POC ABG pO2 ABG pO2 ABG HCO3 ABG O2 Saturation ABG Base Excess ABG Hemoglobin ABG Oxyhemoglobin ABG Sodium ABG Potassium ABG Chloride ABG Glucose Oxyhemoglobin Carboxyhemoglobin Sodium Potassium Chloride Carbon Dioxide BUN 53 H Creatinine 1.6 H Glucose 118 H POC Glucose 145 H 115 H Calcium 8.0 L Phosphorus Magnesium 2.40 H Total Bilirubin AST ALT Ammonia Total Creatine Kinase Troponin T C-Reactive Protein NT-Pro-B Natriuret Pep Albumin Triglycerides HDL Cholesterol Lipase Arterial Blood Glucose Urine WBC (Auto) Urine Creatinine Urine Total Protein Salicylates Acetaminophen 05/28/21 05/28/21 05/29/21 13:32 Unknown 09:43 WBC RBC Hgb 11.7 L Hct MCV MCH MCHC 31 L RDW 21.3 H Plt Count 121 L Lymph % (Auto) [place] % (Auto) Lymph # (Auto) [place] # (Auto) Seg Neutrophils % Seg Neuts % (Manual) Lymphocytes % (Manual) Seg Neutrophils # Seg Neutrophils # Man Lymphocytes # (Manual) PT INR APTT D-Dimer ABG pH 7.339 L POC ABG pCO2 POC ABG pO2 ABG pO2 53.7 L 60.9 L ABG HCO3 ABG O2 Saturation 86.5 L 90.7 L ABG Base Excess ABG Hemoglobin 12.3 L 12.0 L ABG Oxyhemoglobin ABG Sodium ABG Potassium ABG Chloride ABG Glucose Oxyhemoglobin 84.6 L 88.9 L Carboxyhemoglobin Sodium Potassium Chloride Carbon Dioxide BUN Creatinine Glucose POC Glucose Calcium Phosphorus Magnesium Total Bilirubin AST ALT Ammonia Total Creatine Kinase Troponin T C-Reactive Protein NT-Pro-B Natriuret Pep Albumin Triglycerides HDL Cholesterol Lipase Arterial Blood Glucose Urine WBC (Auto) Urine Creatinine Urine Total Protein Salicylates Acetaminophen 05/29/21 05/29/21 05/29/21 13:40 13:40 13:40 WBC RBC Hgb Hct MCV MCH MCHC RDW 20.9 H Plt Count 103 L Lymph % (Auto) [place] % (Auto) Lymph # (Auto) [place] # (Auto) Seg Neutrophils % Seg Neuts % (Manual) Lymphocytes % (Manual) Seg Neutrophils # Seg Neutrophils # Man Lymphocytes # (Manual) PT 15.3 H INR APTT D-Dimer ABG pH POC ABG pCO2 POC ABG pO2 ABG pO2 ABG HCO3 ABG O2 Saturation ABG Base Excess ABG Hemoglobin ABG Oxyhemoglobin ABG Sodium ABG Potassium ABG Chloride ABG Glucose Oxyhemoglobin Carboxyhemoglobin Sodium Potassium Chloride Carbon Dioxide BUN Creatinine 1.7 H Glucose POC Glucose Calcium Phosphorus Magnesium Total Bilirubin AST ALT Ammonia Total Creatine Kinase Troponin T C-Reactive Protein NT-Pro-B Natriuret Pep Albumin Triglycerides HDL Cholesterol Lipase Arterial Blood Glucose Urine WBC (Auto) Urine Creatinine Urine Total Protein Salicylates Acetaminophen 05/30/21 05/30/21 05/30/21 04:42 04:42 07:47 WBC RBC Hgb 11.7 L Hct MCV 95 H MCH MCHC RDW 20.8 H Plt Count 106 L Lymph % (Auto) [place] % (Auto) Lymph # (Auto) [place] # (Auto) Seg Neutrophils % Seg Neuts % (Manual) Lymphocytes % (Manual) Seg Neutrophils # Seg Neutrophils # Man Lymphocytes # (Manual) PT INR APTT D-Dimer ABG pH POC ABG pCO2 POC ABG pO2 ABG pO2 ABG HCO3 ABG O2 Saturation ABG Base Excess ABG Hemoglobin ABG Oxyhemoglobin ABG Sodium ABG Potassium ABG Chloride ABG Glucose Oxyhemoglobin Carboxyhemoglobin Sodium 135 L Potassium Chloride Carbon Dioxide BUN 63 H 63 H Creatinine 1.6 H 1.6 H Glucose POC Glucose Calcium 8.2 L Phosphorus Magnesium Total Bilirubin AST ALT Ammonia Total Creatine Kinase Troponin T C-Reactive Protein NT-Pro-B Natriuret Pep Albumin Triglycerides HDL Cholesterol Lipase Arterial Blood Glucose Urine WBC (Auto) Urine Creatinine Urine Total Protein Salicylates Acetaminophen 05/30/21 05/31/21 05/31/21 09:22 05:16 05:16 WBC RBC Hgb 11.1 L Hct MCV MCH MCHC 31 L RDW 20.8 H Plt Count 116 L Lymph % (Auto) [place] % (Auto) Lymph # (Auto) [place] # (Auto) Seg Neutrophils % Seg Neuts % (Manual) Lymphocytes % (Manual) Seg Neutrophils # Seg Neutrophils # Man Lymphocytes # (Manual) PT INR APTT D-Dimer ABG pH 7.323 L POC ABG pCO2 POC ABG pO2 ABG pO2 107.0 H ABG HCO3 ABG O2 Saturation ABG Base Excess ABG Hemoglobin 12.4 L ABG Oxyhemoglobin ABG Sodium ABG Potassium ABG Chloride ABG Glucose Oxyhemoglobin Carboxyhemoglobin Sodium Potassium Chloride Carbon Dioxide BUN 62 H Creatinine 1.9 H Glucose 103 H POC Glucose Calcium Phosphorus Magnesium Total Bilirubin AST ALT Ammonia Total Creatine Kinase Troponin T C-Reactive Protein NT-Pro-B Natriuret Pep Albumin Triglycerides HDL Cholesterol Lipase Arterial Blood Glucose Urine WBC (Auto) Urine Creatinine Urine Total Protein Salicylates Acetaminophen 05/31/21 05/31/21 05/31/21 05:17 16:49 Unknown WBC RBC Hgb Hct MCV MCH MCHC RDW Plt Count Lymph % (Auto) [place] % (Auto) Lymph # (Auto) [place] # (Auto) Seg Neutrophils % Seg Neuts % (Manual) Lymphocytes % (Manual) Seg Neutrophils # Seg Neutrophils # Man Lymphocytes # (Manual) PT INR APTT D-Dimer ABG pH POC ABG pCO2 48.4 H POC ABG pO2 63.0 L ABG pO2 ABG HCO3 ABG O2 Saturation ABG Base Excess ABG Hemoglobin 11.9 L ABG Oxyhemoglobin 91.4 L ABG Sodium ABG Potassium 4.6 H ABG Chloride ABG Glucose 110 H Oxyhemoglobin Carboxyhemoglobin Sodium Potassium Chloride Carbon Dioxide BUN Creatinine Glucose POC Glucose 109 H 107 H Calcium Phosphorus Magnesium Total Bilirubin AST ALT Ammonia Total Creatine Kinase Troponin T C-Reactive Protein NT-Pro-B Natriuret Pep Albumin Triglycerides HDL Cholesterol Lipase Arterial Blood Glucose 110 H Urine WBC (Auto) Urine Creatinine Urine Total Protein Salicylates Acetaminophen 06/01/21 06/01/21 06/01/21 03:06 07:00 07:00 WBC RBC Hgb 11.2 L Hct MCV 96 H MCH MCHC 31 L RDW 20.6 H Plt Count Lymph % (Auto) [place] % (Auto) Lymph # (Auto) [place] # (Auto) Seg Neutrophils % Seg Neuts % (Manual) Lymphocytes % (Manual) Seg Neutrophils # Seg Neutrophils # Man Lymphocytes # (Manual) PT INR APTT D-Dimer ABG pH POC ABG pCO2 POC ABG pO2 55.0 L ABG pO2 ABG HCO3 ABG O2 Saturation ABG Base Excess ABG Hemoglobin 10.9 L ABG Oxyhemoglobin 87.5 L ABG Sodium 127.4 L ABG Potassium 4.6 H ABG Chloride 108.0 H ABG Glucose 108 H Oxyhemoglobin Carboxyhemoglobin Sodium Potassium Chloride Carbon Dioxide BUN 59 H Creatinine 1.6 H Glucose 104 H POC Glucose Calcium Phosphorus Magnesium Total Bilirubin AST ALT Ammonia Total Creatine Kinase Troponin T C-Reactive Protein NT-Pro-B Natriuret Pep Albumin Triglycerides HDL Cholesterol Lipase Arterial Blood Glucose 108 H Urine WBC (Auto) Urine Creatinine Urine Total Protein Salicylates Acetaminophen 06/01/21 06/01/21 06/02/21 17:09 23:42 04:23 WBC RBC 3.48 L Hgb 10.1 L Hct 33.1 L MCV 95 H MCH MCHC 31 L RDW 19.9 H Plt Count Lymph % (Auto) [place] % (Auto) Lymph # (Auto) [place] # (Auto) Seg Neutrophils % Seg Neuts % (Manual) Lymphocytes % (Manual) Seg Neutrophils # Seg Neutrophils # Man Lymphocytes # (Manual) PT INR APTT D-Dimer ABG pH POC ABG pCO2 POC ABG pO2 ABG pO2 ABG HCO3 ABG O2 Saturation ABG Base Excess ABG Hemoglobin ABG Oxyhemoglobin ABG Sodium ABG Potassium ABG Chloride ABG Glucose Oxyhemoglobin Carboxyhemoglobin Sodium Potassium Chloride Carbon Dioxide BUN Creatinine Glucose POC Glucose 106 H 109 H Calcium Phosphorus Magnesium Total Bilirubin AST ALT Ammonia Total Creatine Kinase Troponin T C-Reactive Protein NT-Pro-B Natriuret Pep Albumin Triglycerides HDL Cholesterol Lipase Arterial Blood Glucose Urine WBC (Auto) Urine Creatinine Urine Total Protein Salicylates Acetaminophen 1106/02/21 06/02/21 04:23 05:38 05:40 WBC RBC Hgb Hct MCV MCH MCHC RDW Plt Count Lymph % (Auto) [place] % (Auto) Lymph # (Auto) [place] # (Auto) Seg Neutrophils % Seg Neuts % (Manual) Lymphocytes % (Manual) Seg Neutrophils # Seg Neutrophils # Man Lymphocytes # (Manual) PT INR APTT D-Dimer ABG pH POC ABG pCO2 POC ABG pO2 ABG pO2 ABG HCO3 ABG O2 Saturation ABG Base Excess ABG Hemoglobin ABG Oxyhemoglobin ABG Sodium ABG Potassium ABG Chloride ABG Glucose Oxyhemoglobin Carboxyhemoglobin Sodium Potassium Chloride Carbon Dioxide BUN 61 H Creatinine 1.7 H Glucose 119 H POC Glucose 49 L 107 H Calcium Phosphorus Magnesium Total Bilirubin AST ALT Ammonia Total Creatine Kinase Troponin T C-Reactive Protein NT-Pro-B Natriuret Pep Albumin Triglycerides HDL Cholesterol Lipase Arterial Blood Glucose Urine WBC (Auto) Urine Creatinine Urine Total Protein Salicylates Acetaminophen 06/02/21 06/02/21 06/03/21 10:01 11:26 04:10 WBC RBC Hgb Hct MCV MCH MCHC RDW Plt Count Lymph % (Auto) [place] % (Auto) Lymph # (Auto) [place] # (Auto) Seg Neutrophils % Seg Neuts % (Manual) Lymphocytes % (Manual) Seg Neutrophils # Seg Neutrophils # Man Lymphocytes # (Manual) PT INR APTT D-Dimer ABG pH 7.315 L POC ABG pCO2 POC ABG pO2 62.1 L ABG pO2 ABG HCO3 ABG O2 Saturation ABG Base Excess ABG Hemoglobin 10.8 L ABG Oxyhemoglobin 91.0 L ABG Sodium 133.5 L ABG Potassium 5.0 H ABG Chloride 109.0 H ABG Glucose 124 H Oxyhemoglobin Carboxyhemoglobin Sodium Potassium Chloride Carbon Dioxide BUN Creatinine Glucose POC Glucose 117 H Calcium Phosphorus Magnesium Total Bilirubin AST ALT Ammonia Total Creatine Kinase Troponin T C-Reactive Protein NT-Pro-B Natriuret Pep Albumin Triglycerides 830 H HDL Cholesterol Lipase Arterial Blood Glucose 124 H Urine WBC (Auto) Urine Creatinine Urine Total Protein Salicylates Acetaminophen 06/03/21 06/03/21 06/03/21 04:10 04:10 05:36 WBC RBC 3.25 L Hgb 9.9 L Hct 31.8 L MCV 98 H MCH MCHC 31 L RDW 19.9 H Plt Count Lymph % (Auto) 6.2 L [place] % (Auto) 13.1 H Lymph # (Auto) 0.5 L [place] # (Auto) 1.1 H Seg Neutrophils % Seg Neuts % (Manual) Lymphocytes % (Manual) Seg Neutrophils # Seg Neutrophils # Man Lymphocytes # (Manual) PT INR APTT D-Dimer ABG pH POC ABG pCO2 POC ABG pO2 ABG pO2 ABG HCO3 ABG O2 Saturation ABG Base Excess ABG Hemoglobin ABG Oxyhemoglobin ABG Sodium ABG Potassium ABG Chloride ABG Glucose Oxyhemoglobin Carboxyhemoglobin Sodium 136 L Potassium Chloride Carbon Dioxide 20 L BUN 57 H Creatinine 1.7 H Glucose 108 H POC Glucose 114 H Calcium 8.2 L Phosphorus Magnesium Total Bilirubin AST ALT Ammonia Total Creatine Kinase Troponin T C-Reactive Protein NT-Pro-B Natriuret Pep Albumin Triglycerides HDL Cholesterol Lipase Arterial Blood Glucose Urine WBC (Auto) Urine Creatinine Urine Total Protein Salicylates Acetaminophen 06/03/21 06/03/21 06/03/21 06:55 13:06 23:30 WBC RBC Hgb Hct MCV MCH MCHC RDW Plt Count Lymph % (Auto) [place] % (Auto) Lymph # (Auto) [place] # (Auto) Seg Neutrophils % Seg Neuts % (Manual) Lymphocytes % (Manual) Seg Neutrophils # Seg Neutrophils # Man Lymphocytes # (Manual) PT INR APTT D-Dimer ABG pH 7.298 L POC ABG pCO2 POC ABG pO2 67.4 L ABG pO2 ABG HCO3 ABG O2 Saturation ABG Base Excess ABG Hemoglobin 11.7 L ABG Oxyhemoglobin 91.2 L ABG Sodium 134.3 L ABG Potassium 4.7 H ABG Chloride 108.0 H ABG Glucose 110 H Oxyhemoglobin Carboxyhemoglobin Sodium Potassium Chloride Carbon Dioxide BUN Creatinine Glucose POC Glucose 106 H 106 H Calcium Phosphorus Magnesium Total Bilirubin AST ALT Ammonia Total Creatine Kinase Troponin T C-Reactive Protein NT-Pro-B Natriuret Pep Albumin Triglycerides HDL Cholesterol Lipase Arterial Blood Glucose 110 H Urine WBC (Auto) Urine Creatinine Urine Total Protein Salicylates Acetaminophen 06/04/21 06/04/21 06/04/21 05:00 05:15 05:15 WBC RBC 3.27 L Hgb 9.7 L Hct 31.6 L MCV 97 H MCH MCHC 31 L RDW 19.3 H Plt Count Lymph % (Auto) [place] % (Auto) Lymph # (Auto) [place] # (Auto) Seg Neutrophils % Seg Neuts % (Manual) Lymphocytes % (Manual) Seg Neutrophils # Seg Neutrophils # Man Lymphocytes # (Manual) PT INR APTT D-Dimer ABG pH 7.293 L POC ABG pCO2 POC ABG pO2 ABG pO2 69.1 L ABG HCO3 ABG O2 Saturation 92.3 L ABG Base Excess -4.0 L ABG Hemoglobin 8.9 L ABG Oxyhemoglobin ABG Sodium ABG Potassium ABG Chloride ABG Glucose Oxyhemoglobin 90.3 L Carboxyhemoglobin Sodium Potassium Chloride Carbon Dioxide 21 L BUN 60 H Creatinine 1.7 H Glucose 106 H POC Glucose Calcium Phosphorus Magnesium Total Bilirubin AST ALT Ammonia Total Creatine Kinase Troponin T C-Reactive Protein NT-Pro-B Natriuret Pep Albumin 2.7 L Triglycerides HDL Cholesterol Lipase Arterial Blood Glucose Urine WBC (Auto) Urine Creatinine Urine Total Protein Salicylates Acetaminophen 06/04/21 06/04/21 06/04/21 05:37 13:39 13:54 WBC RBC 3.07 L Hgb 8.9 L Hct 29.5 L MCV 96 H MCH MCHC 30 L RDW 19.4 H Plt Count Lymph % (Auto) [place] % (Auto) Lymph # (Auto) [place] # (Auto) Seg Neutrophils % Seg Neuts % (Manual) Lymphocytes % (Manual) Seg Neutrophils # Seg Neutrophils # Man Lymphocytes # (Manual) PT INR APTT D-Dimer ABG pH POC ABG pCO2 POC ABG pO2 ABG pO2 ABG HCO3 ABG O2 Saturation ABG Base Excess ABG Hemoglobin ABG Oxyhemoglobin ABG Sodium ABG Potassium ABG Chloride ABG Glucose Oxyhemoglobin Carboxyhemoglobin Sodium Potassium Chloride Carbon Dioxide BUN Creatinine Glucose POC Glucose 115 H Calcium Phosphorus Magnesium Total Bilirubin AST ALT Ammonia Total Creatine Kinase Troponin T C-Reactive Protein NT-Pro-B Natriuret Pep Albumin Triglycerides HDL Cholesterol Lipase Arterial Blood Glucose Urine WBC (Auto) 17.0 H Urine Creatinine Urine Total Protein Salicylates Acetaminophen 06/04/21 06/04/21 06/05/21 13:56 23:17 04:30 WBC RBC 3.07 L Hgb 9.0 L Hct 29.6 L MCV 97 H MCH MCHC 30 L RDW 19.1 H Plt Count Lymph % (Auto) [place] % (Auto) Lymph # (Auto) [place] # (Auto) Seg Neutrophils % Seg Neuts % (Manual) Lymphocytes % (Manual) Seg Neutrophils # Seg Neutrophils # Man Lymphocytes # (Manual) PT INR APTT D-Dimer ABG pH POC ABG pCO2 POC ABG pO2 ABG pO2 ABG HCO3 ABG O2 Saturation ABG Base Excess ABG Hemoglobin ABG Oxyhemoglobin ABG Sodium ABG Potassium ABG Chloride ABG Glucose Oxyhemoglobin Carboxyhemoglobin Sodium Potassium Chloride 108.8 H Carbon Dioxide 21 L BUN 58 H Creatinine 1.8 H Glucose 105 H POC Glucose 108 H Calcium Phosphorus Magnesium Total Bilirubin AST ALT Ammonia Total Creatine Kinase Troponin T C-Reactive Protein NT-Pro-B Natriuret Pep Albumin Triglycerides HDL Cholesterol Lipase Arterial Blood Glucose Urine WBC (Auto) Urine Creatinine Urine Total Protein Salicylates Acetaminophen 06/05/21 06/05/21 06/05/21 04:30 05:41 09:07 WBC RBC Hgb Hct MCV MCH MCHC RDW Plt Count Lymph % (Auto) [place] % (Auto) Lymph # (Auto) [place] # (Auto) Seg Neutrophils % Seg Neuts % (Manual) Lymphocytes % (Manual) Seg Neutrophils # Seg Neutrophils # Man Lymphocytes # (Manual) PT INR APTT D-Dimer ABG pH 7.287 L POC ABG pCO2 POC ABG pO2 ABG pO2 79.5 L ABG HCO3 ABG O2 Saturation ABG Base Excess -4.2 L ABG Hemoglobin 8.6 L ABG Oxyhemoglobin ABG Sodium ABG Potassium ABG Chloride ABG Glucose Oxyhemoglobin 94.9 L Carboxyhemoglobin Sodium Potassium Chloride 108.5 H Carbon Dioxide 21 L BUN 60 H Creatinine 1.7 H Glucose 110 H POC Glucose 111 H Calcium Phosphorus Magnesium Total Bilirubin AST ALT Ammonia Total Creatine Kinase Troponin T C-Reactive Protein NT-Pro-B Natriuret Pep Albumin Triglycerides HDL Cholesterol Lipase Arterial Blood Glucose Urine WBC (Auto) Urine Creatinine Urine Total Protein Salicylates Acetaminophen 06/05/21 06/05/21 06/05/21 11:39 15:57 23:26 WBC RBC Hgb Hct MCV MCH MCHC RDW Plt Count Lymph % (Auto) [place] % (Auto) Lymph # (Auto) [place] # (Auto) Seg Neutrophils % Seg Neuts % (Manual) Lymphocytes % (Manual) Seg Neutrophils # Seg Neutrophils # Man Lymphocytes # (Manual) PT INR APTT D-Dimer ABG pH POC ABG pCO2 POC ABG pO2 ABG pO2 ABG HCO3 ABG O2 Saturation ABG Base Excess ABG Hemoglobin ABG Oxyhemoglobin ABG Sodium ABG Potassium ABG Chloride ABG Glucose Oxyhemoglobin Carboxyhemoglobin Sodium Potassium Chloride Carbon Dioxide BUN Creatinine Glucose POC Glucose 111 H 109 H 127 H Calcium Phosphorus Magnesium Total Bilirubin AST ALT Ammonia Total Creatine Kinase Troponin T C-Reactive Protein NT-Pro-B Natriuret Pep Albumin Triglycerides HDL Cholesterol Lipase Arterial Blood Glucose Urine WBC (Auto) Urine Creatinine Urine Total Protein Salicylates Acetaminophen 06/06/21 06/06/21 06/06/21 03:19 04:18 11:35 WBC RBC Hgb Hct MCV MCH MCHC RDW Plt Count Lymph % (Auto) [place] % (Auto) Lymph # (Auto) [place] # (Auto) Seg Neutrophils % Seg Neuts % (Manual) Lymphocytes % (Manual) Seg Neutrophils # Seg Neutrophils # Man Lymphocytes # (Manual) PT INR APTT D-Dimer ABG pH 7.262 L POC ABG pCO2 POC ABG pO2 76.6 L ABG pO2 ABG HCO3 ABG O2 Saturation ABG Base Excess ABG Hemoglobin 10.1 L ABG Oxyhemoglobin 93.9 L ABG Sodium ABG Potassium 5.1 H ABG Chloride 111.0 H ABG Glucose 122 H Oxyhemoglobin Carboxyhemoglobin 0.4 L Sodium Potassium Chloride Carbon Dioxide BUN Creatinine Glucose POC Glucose 108 H 139 H Calcium Phosphorus Magnesium Total Bilirubin AST ALT Ammonia Total Creatine Kinase Troponin T C-Reactive Protein NT-Pro-B Natriuret Pep Albumin Triglycerides HDL Cholesterol Lipase Arterial Blood Glucose 122 H Urine WBC (Auto) Urine Creatinine Urine Total Protein Salicylates Acetaminophen 06/06/21 06/06/21 06/06/21 13:30 17:27 Unknown WBC RBC 3.18 L Hgb 9.5 L Hct 30.8 L MCV 97 H MCH MCHC 31 L RDW 18.9 H Plt Count Lymph % (Auto) [place] % (Auto) Lymph # (Auto) [place] # (Auto) Seg Neutrophils % Seg Neuts % (Manual) Lymphocytes % (Manual) Seg Neutrophils # Seg Neutrophils # Man Lymphocytes # (Manual) PT INR APTT D-Dimer ABG pH POC ABG pCO2 POC ABG pO2 ABG pO2 ABG HCO3 ABG O2 Saturation ABG Base Excess ABG Hemoglobin ABG Oxyhemoglobin ABG Sodium ABG Potassium ABG Chloride ABG Glucose Oxyhemoglobin Carboxyhemoglobin Sodium Potassium Chloride Carbon Dioxide BUN Creatinine Glucose POC Glucose 127 H Calcium Phosphorus Magnesium Total Bilirubin AST ALT Ammonia Total Creatine Kinase Troponin T C-Reactive Protein NT-Pro-B Natriuret Pep Albumin Triglycerides HDL Cholesterol Lipase Arterial Blood Glucose Urine WBC (Auto) Urine Creatinine 222.7 H Urine Total Protein Salicylates Acetaminophen 06/06/21 06/07/21 06/07/21 Unknown 04:33 07:02 WBC 12.4 H RBC 3.23 L Hgb 9.3 L Hct 31.1 L MCV 97 H MCH MCHC 30 L RDW 18.6 H Plt Count Lymph % (Auto) [place] % (Auto) Lymph # (Auto) [place] # (Auto) Seg Neutrophils % Seg Neuts % (Manual) Lymphocytes % (Manual) Seg Neutrophils # Seg Neutrophils # Man Lymphocytes # (Manual) PT INR APTT D-Dimer ABG pH 7.154 L* POC ABG pCO2 POC ABG pO2 ABG pO2 97.5 H ABG HCO3 18.0 L ABG O2 Saturation ABG Base Excess -10.8 L ABG Hemoglobin 13.0 L ABG Oxyhemoglobin ABG Sodium ABG Potassium ABG Chloride ABG Glucose Oxyhemoglobin 94.3 L Carboxyhemoglobin Sodium Potassium 5.3 H Chloride Carbon Dioxide 17 L BUN 72 H Creatinine 2.5 H Glucose 140 H POC Glucose Calcium Phosphorus Magnesium Total Bilirubin AST ALT Ammonia Total Creatine Kinase Troponin T C-Reactive Protein NT-Pro-B Natriuret Pep Albumin Triglycerides HDL Cholesterol Lipase Arterial Blood Glucose Urine WBC (Auto) Urine Creatinine Urine Total Protein Salicylates Acetaminophen 06/07/21 06/07/21 06/07/21 07:02 09:48 12:20 WBC RBC Hgb Hct MCV MCH MCHC RDW Plt Count Lymph % (Auto) [place] % (Auto) Lymph # (Auto) [place] # (Auto) Seg Neutrophils % Seg Neuts % (Manual) Lymphocytes % (Manual) Seg Neutrophils # Seg Neutrophils # Man Lymphocytes # (Manual) PT INR APTT D-Dimer ABG pH 7.128 L POC ABG pCO2 POC ABG pO2 73.8 L ABG pO2 ABG HCO3 ABG O2 Saturation ABG Base Excess ABG Hemoglobin 11.1 L ABG Oxyhemoglobin 91.1 L ABG Sodium ABG Potassium 5.8 H ABG Chloride 110.0 H ABG Glucose 109 H Oxyhemoglobin Carboxyhemoglobin 0.3 L Sodium Potassium 6.6 H* D 6.1 H* Chloride Carbon Dioxide 18 L 15 L BUN 84 H 85 H Creatinine 3.0 H 3.2 H Glucose 104 H 165 H POC Glucose Calcium Phosphorus Magnesium Total Bilirubin AST ALT Ammonia Total Creatine Kinase Troponin T C-Reactive Protein NT-Pro-B Natriuret Pep Albumin Triglycerides HDL Cholesterol Lipase Arterial Blood Glucose 109 H Urine WBC (Auto) Urine Creatinine Urine Total Protein Salicylates Acetaminophen 06/07/21 06/07/21 06/07/21 18:04 21:26 23:18 WBC RBC Hgb Hct MCV MCH MCHC RDW Plt Count Lymph % (Auto) [place] % (Auto) Lymph # (Auto) [place] # (Auto) Seg Neutrophils % Seg Neuts % (Manual) Lymphocytes % (Manual) Seg Neutrophils # Seg Neutrophils # Man Lymphocytes # (Manual) PT INR APTT D-Dimer ABG pH 7.279 L POC ABG pCO2 POC ABG pO2 72.3 L ABG pO2 ABG HCO3 ABG O2 Saturation ABG Base Excess ABG Hemoglobin 11.1 L ABG Oxyhemoglobin 92.4 L ABG Sodium ABG Potassium 5.3 H ABG Chloride 109.0 H ABG Glucose 165 H Oxyhemoglobin Carboxyhemoglobin 0.2 L Sodium Potassium 5.8 H Chloride Carbon Dioxide 16 L BUN 84 H Creatinine 3.2 H Glucose 186 H POC Glucose 133 H Calcium Phosphorus Magnesium Total Bilirubin AST ALT Ammonia Total Creatine Kinase Troponin T C-Reactive Protein NT-Pro-B Natriuret Pep Albumin Triglycerides HDL Cholesterol Lipase Arterial Blood Glucose 165 H Urine WBC (Auto) Urine Creatinine Urine Total Protein Salicylates Acetaminophen 06/08/21 06/08/21 06/08/21 04:20 04:21 04:21 WBC 15.6 H RBC 3.20 L Hgb 9.4 L Hct 30.4 L MCV 95 H MCH MCHC 31 L RDW 18.6 H Plt Count Lymph % (Auto) [place] % (Auto) Lymph # (Auto) [place] # (Auto) Seg Neutrophils % Seg Neuts % (Manual) Lymphocytes % (Manual) Seg Neutrophils # Seg Neutrophils # Man Lymphocytes # (Manual) PT INR APTT D-Dimer ABG pH POC ABG pCO2 POC ABG pO2 ABG pO2 ABG HCO3 ABG O2 Saturation ABG Base Excess ABG Hemoglobin ABG Oxyhemoglobin ABG Sodium ABG Potassium ABG Chloride ABG Glucose Oxyhemoglobin Carboxyhemoglobin Sodium Potassium Chloride 107.3 H Carbon Dioxide 19 L BUN 83 H Creatinine 3.5 H Glucose 139 H POC Glucose Calcium Phosphorus Magnesium Total Bilirubin 1.30 H AST 9433 H ALT 5071 H Ammonia Total Creatine Kinase Troponin T C-Reactive Protein NT-Pro-B Natriuret Pep Albumin 2.3 L Triglycerides HDL Cholesterol Lipase 86 H Arterial Blood Glucose Urine WBC (Auto) Urine Creatinine Urine Total Protein Salicylates Acetaminophen 06/08/21 06/08/21 06/08/21 05:19 11:14 12:19 WBC RBC Hgb Hct MCV MCH MCHC RDW Plt Count Lymph % (Auto) [place] % (Auto) Lymph # (Auto) [place] # (Auto) Seg Neutrophils % Seg Neuts % (Manual) Lymphocytes % (Manual) Seg Neutrophils # Seg Neutrophils # Man Lymphocytes # (Manual) PT INR APTT D-Dimer ABG pH POC ABG pCO2 POC ABG pO2 ABG pO2 ABG HCO3 ABG O2 Saturation ABG Base Excess ABG Hemoglobin ABG Oxyhemoglobin ABG Sodium ABG Potassium ABG Chloride ABG Glucose Oxyhemoglobin Carboxyhemoglobin Sodium Potassium Chloride Carbon Dioxide BUN Creatinine Glucose POC Glucose 142 H 128 H 120 H Calcium Phosphorus Magnesium Total Bilirubin AST ALT Ammonia Total Creatine Kinase Troponin T C-Reactive Protein NT-Pro-B Natriuret Pep Albumin Triglycerides HDL Cholesterol Lipase Arterial Blood Glucose Urine WBC (Auto) Urine Creatinine Urine Total Protein Salicylates Acetaminophen 06/08/21 06/08/21 06/08/21 16:59 17:39 21:00 WBC RBC Hgb Hct MCV MCH MCHC RDW Plt Count Lymph % (Auto) [place] % (Auto) Lymph # (Auto) [place] # (Auto) Seg Neutrophils % Seg Neuts % (Manual) Lymphocytes % (Manual) Seg Neutrophils # Seg Neutrophils # Man Lymphocytes # (Manual) PT INR APTT D-Dimer ABG pH 7.282 L POC ABG pCO2 POC ABG pO2 ABG pO2 91.3 H ABG HCO3 ABG O2 Saturation ABG Base Excess -5.2 L ABG Hemoglobin 9.3 L ABG Oxyhemoglobin ABG Sodium ABG Potassium ABG Chloride ABG Glucose Oxyhemoglobin Carboxyhemoglobin Sodium Potassium Chloride Carbon Dioxide BUN Creatinine Glucose POC Glucose 118 H 121 H Calcium Phosphorus Magnesium Total Bilirubin AST ALT Ammonia Total Creatine Kinase Troponin T C-Reactive Protein NT-Pro-B Natriuret Pep Albumin Triglycerides HDL Cholesterol Lipase Arterial Blood Glucose Urine WBC (Auto) Urine Creatinine Urine Total Protein Salicylates Acetaminophen 06/08/21 06/09/21 06/09/21 Unknown 04:00 04:45 WBC RBC Hgb Hct MCV MCH MCHC RDW Plt Count Lymph % (Auto) [place] % (Auto) Lymph # (Auto) [place] # (Auto) Seg Neutrophils % Seg Neuts % (Manual) Lymphocytes % (Manual) Seg Neutrophils # Seg Neutrophils # Man Lymphocytes # (Manual) PT INR APTT D-Dimer ABG pH 7.291 L POC ABG pCO2 POC ABG pO2 ABG pO2 78.8 L ABG HCO3 ABG O2 Saturation 94.8 L ABG Base Excess -5.1 L ABG Hemoglobin 9.9 L ABG Oxyhemoglobin ABG Sodium ABG Potassium ABG Chloride ABG Glucose Oxyhemoglobin 93.1 L Carboxyhemoglobin Sodium Potassium Chloride Carbon Dioxide 19 L BUN 84 H Creatinine 3.7 H Glucose 124 H POC Glucose Calcium 7.8 L Phosphorus 5.90 H Magnesium Total Bilirubin 2.30 H AST 3183 H ALT 4140 H Ammonia Total Creatine Kinase Troponin T C-Reactive Protein NT-Pro-B Natriuret Pep Albumin 2.1 L Triglycerides 164 H HDL Cholesterol Lipase Arterial Blood Glucose Urine WBC (Auto) Urine Creatinine Urine Total Protein Salicylates Acetaminophen 06/09/21 06/09/21 06/09/21 05:57 11:25 16:37 WBC RBC Hgb Hct MCV MCH MCHC RDW Plt Count Lymph % (Auto) [place] % (Auto) Lymph # (Auto) [place] # (Auto) Seg Neutrophils % Seg Neuts % (Manual) Lymphocytes % (Manual) Seg Neutrophils # Seg Neutrophils # Man Lymphocytes # (Manual) PT INR APTT D-Dimer ABG pH POC ABG pCO2 POC ABG pO2 ABG pO2 ABG HCO3 ABG O2 Saturation ABG Base Excess ABG Hemoglobin ABG Oxyhemoglobin ABG Sodium ABG Potassium ABG Chloride ABG Glucose Oxyhemoglobin Carboxyhemoglobin Sodium Potassium Chloride Carbon Dioxide BUN Creatinine Glucose POC Glucose 121 H 113 H 122 H Calcium Phosphorus Magnesium Total Bilirubin AST ALT Ammonia Total Creatine Kinase Troponin T C-Reactive Protein NT-Pro-B Natriuret Pep Albumin Triglycerides HDL Cholesterol Lipase Arterial Blood Glucose Urine WBC (Auto) Urine Creatinine Urine Total Protein Salicylates Acetaminophen 06/09/21 06/10/21 06/10/21 21:52 06:05 08:25 WBC 13.9 H RBC 3.17 L Hgb 8.7 L Hct 29.6 L MCV MCH 27 L MCHC 29 L RDW 18.4 H Plt Count Lymph % (Auto) [place] % (Auto) Lymph # (Auto) [place] # (Auto) Seg Neutrophils % Seg Neuts % (Manual) Lymphocytes % (Manual) Seg Neutrophils # Seg Neutrophils # Man Lymphocytes # (Manual) PT INR APTT D-Dimer ABG pH 7.292 L POC ABG pCO2 48.4 H POC ABG pO2 67.1 L ABG pO2 ABG HCO3 ABG O2 Saturation ABG Base Excess ABG Hemoglobin 9.9 L ABG Oxyhemoglobin 91.7 L ABG Sodium 133.5 L ABG Potassium 4.8 H ABG Chloride ABG Glucose 110 H Oxyhemoglobin Carboxyhemoglobin 0.2 L Sodium Potassium Chloride Carbon Dioxide BUN Creatinine Glucose POC Glucose 110 H Calcium Phosphorus Magnesium Total Bilirubin AST ALT Ammonia Total Creatine Kinase Troponin T C-Reactive Protein NT-Pro-B Natriuret Pep Albumin Triglycerides HDL Cholesterol Lipase Arterial Blood Glucose 110 H Urine WBC (Auto) Urine Creatinine Urine Total Protein Salicylates Acetaminophen 06/10/21 08:25 WBC RBC Hgb Hct MCV MCH MCHC RDW Plt Count Lymph % (Auto) [place] % (Auto) Lymph # (Auto) [place] # (Auto) Seg Neutrophils % Seg Neuts % (Manual) Lymphocytes % (Manual) Seg Neutrophils # Seg Neutrophils # Man Lymphocytes # (Manual) PT INR APTT D-Dimer ABG pH POC ABG pCO2 POC ABG pO2 ABG pO2 ABG HCO3 ABG O2 Saturation ABG Base Excess ABG Hemoglobin ABG Oxyhemoglobin ABG Sodium ABG Potassium ABG Chloride ABG Glucose Oxyhemoglobin Carboxyhemoglobin Sodium Potassium Chloride Carbon Dioxide BUN 58 H Creatinine 3.1 H Glucose POC Glucose Calcium 8.3 L Phosphorus Magnesium Total Bilirubin 3.40 H AST 898 H ALT 3037 H Ammonia Total Creatine Kinase Troponin T C-Reactive Protein NT-Pro-B Natriuret Pep Albumin 2.3 L Triglycerides HDL Cholesterol Lipase Arterial Blood Glucose Urine WBC (Auto) Urine Creatinine Urine Total Protein Salicylates Acetaminophen Allied health notes reviewed: nursing
--- NOTE | 2021-06-10 12:53 | Progress Note ---
Assessment and Plan Cultures: Blood culture 05/23/2021 1 bottle coag negative staph Urine culture 05/23/2021 no growth Blood culture 06/02/2021 no growth so far Urine culture 06/04/2021 no growth so far 06/04/2021 tracheal aspirate culture: MRSA, Acinetobacter A/P: 41-year-old man past medical history obesity presented to hospital in respiratory failure: #Septic shock: Likely secondary to dense right lower lobe pneumonia, cultures with MRSA and Acinetobacter - on abx. Urinalysis without convincing evidence of infection. #Acute hypoxic respiratory failure: COVID-19 negative. Currently on the vent. #Shock liver #FERMIN: renally dose medications. Nephrology following #Coag negative Staph bacteremia: likely contaminant. Recs: Continue renally dosed cefepime Continue IV linezolid, monitor platelets Poor prognosis, goals of care discussion Jonathan Brasher MD, FACP [facility] ([facility]) O: [phone] F: [phone] Subjective Date of service: 06/10/21 Principal diagnosis: Acute hypoxemic and hypercapnic resp failure; PUI COVID-19; Pneumonia; FERMIN Interval history: Remains critically ill on the vent. On multiple pressors. Afebrile. Objective - Exam Narrative Exam: Physical Exam: Constitutional: sedated, intubated, on the vent. Morbidly obese. Head, Ears, Nose: Normocephalic, atraumatic. External ears, nose normal Eyes: Conjunctivae/corneas clear. No icterus. No ptosis. Neck: intubated Oral: intubated Cardiovascular: S1, S2 + Respiratory: AE fair bilaterally and equal GI: Soft, bowel sounds absent Musculoskeletal: No pedal edema, no cyanosis. Skin: No rash or abscess Hem/Lymphatic: No palpable cervical or supraclavicular nodes. No lymphangitis Psych: no agitation Neurological: sedated, intubated, on the vent, exam limited - Constitutional Vitals: Vital Signs Temp Pulse Resp BP Pulse Ox 100.0 F H 128 H 27 H 98/39 92 06/10/21 08:00 06/10/21 12:00 06/10/21 12:00 06/10/21 12:00 06/10/21 11:30 Temperature -Last 24 Hours Temperature 100.0 F Temperature 99.2 F Temperature 97.5 F Temperature 99.1 F Temperature 98.1 F Temperature 98.6 F Temperature 98.1 F - Labs CBC & Chem 7: 06/10/21 08:25 06/10/21 08:25 Labs: Abnormal lab results 06/09/21 06/09/21 06/10/21 Range/Units 16:37 21:52 06:05 WBC (4.5-11.0) K/mm3 RBC (3.65-5.03) M/mm3 Hgb (11.8-15.2) gm/dl Hct (35.5-45.6) % MCH (28-32) pg MCHC (32-34) % RDW (13.2-15.2) % ABG pH 7.292 L (7.320-7.450) POC ABG pCO2 48.4 H (32.0-48.0) mmHg POC ABG pO2 67.1 L (83-108) mmHg ABG Hemoglobin 9.9 L (12.0-17.5) ABG Oxyhemoglobin 91.7 L (94-98) ABG Sodium 133.5 L (136.0-145.0) mmol/L ABG Potassium 4.8 H (3.40-4.50) mmol/L ABG Glucose 110 H (65-95) mg/dL Carboxyhemoglobin 0.2 L (0.5-1.5) BUN (9-20) mg/dL Creatinine (0.8-1.3) mg/dL POC Glucose 122 H 110 H (70-105) mg/dL Calcium (8.4-10.2) mg/dL Total Bilirubin (0.1-1.2) mg/dL AST (5-40) units/L ALT (7-56) units/L Albumin (3.9-5) g/dL Arterial Blood Glucose 110 H (65-95) mg/dL 06/10/21 06/10/21 Range/Units 08:25 08:25 WBC 13.9 H (4.5-11.0) K/mm3 RBC 3.17 L (3.65-5.03) M/mm3 Hgb 8.7 L (11.8-15.2) gm/dl Hct 29.6 L (35.5-45.6) % MCH 27 L (28-32) pg MCHC 29 L (32-34) % RDW 18.4 H (13.2-15.2) % ABG pH (7.320-7.450) POC ABG pCO2 (32.0-48.0) mmHg POC ABG pO2 (83-108) mmHg ABG Hemoglobin (12.0-17.5) ABG Oxyhemoglobin (94-98) ABG Sodium (136.0-145.0) mmol/L ABG Potassium (3.40-4.50) mmol/L ABG Glucose (65-95) mg/dL Carboxyhemoglobin (0.5-1.5) BUN 58 H (9-20) mg/dL Creatinine 3.1 H (0.8-1.3) mg/dL POC Glucose (70-105) mg/dL Calcium 8.3 L (8.4-10.2) mg/dL Total Bilirubin 3.40 H (0.1-1.2) mg/dL AST 898 H (5-40) units/L ALT 3037 H (7-56) units/L Albumin 2.3 L (3.9-5) g/dL Arterial Blood Glucose (65-95) mg/dL
--- NOTE | 2021-06-10 14:09 | Progress Note ---
Assessment and Plan Assessment and plan: This is a 41-year-old male with acute hypoxic respiratory failure, elevated D- dimer, acute kidney injury, hyperkalemia and transaminitis Neuro: Acute metabolic encephalopathy -CT head and C-spine negative for acute process -TSH WNL -Patient is sedated with propofol and fentanyl -Goal RASS 0 to -1 -Seroquel -Avoid delirium -Reorientation as needed -Maintain sleep-wake cycle Cardio: Hypotension, possible CHF, h/o HTN -Cardiology consulted, appreciate recommendations -vasopressor support with Levophed, vasopressin, and phenylepi -Goal MAP>65 -echocardiogram showed mild to moderate dilated right heart chambers, LVEF 55% -Cardiology recommends conservative cardiac management -ProBNP 65086 -Blood pressure monitoring via ibrahima -Trend CVP q shift -Chest US completed-> see chart for results Respiratory: Acute possibly on chronic hypoxemic and hypercapnic respiratory failure, ARDS, h/o sleep apnea -CCM/pulmonary consulted, appreciate recommendations -Patient intubated on 05/23 for airway protection in the ED -Intubated with 7.50 ETT at 24 the lips -AM ABG noted -A.m. vent settings: Assist control tidal volume 500, rate 30, peep 15, 85% FiO2 -See RT notes for titration -decrease in FiO2 -ABG 2100 -VAP bundle GI: Transaminitis, morbid obesity -NTR consult for tube feedings -Tube feedings Nepro at 45 mL's per hour -Free water flush 100 mL/4hr -24-hour +3438 -HD removed 2L -Trend LFTs -LFTS are decreasing -Amylase 101, lipase 86 -Abd US shows hepatomegaly with diffuse heterogenous apperence; prior cholecystectomy : Acute renal failure secondary to vasomotor nephropathy -Nephrology consulted, appreciate recommendations -Garcia catheter for strict intake and output -Avoid nephrotoxic medications -Renally dose medications -Renal calculated at 0.41% indicating prerenal -Patient admitted with volume overload (proBNP 57220) -s/p IVF -Trend BMP -vascath placed and HD initiated 06/09 -HD per nephrology ID: CAP, MRSA is tracheal aspirate -CT C-spine showed right upper lobe pneumonia -Antibiotic therapy with cefepime and azithromycin -Currently on Cefepime (06/07) and Linezolid started 06/05 -05/31 tracheal aspirate with MRSA, A. baumnnii/haemolyticus -ID consulted, appreciate recommendations -Monitor fever and WBC curve Endo: NAD -Accu-Cheks every 6 while on tube feedings -SSI as needed -Avoid hypoglycemia -Target blood glucose while critically ill less than 180 Heme: Elevated D-dimer, h/o PE/DVT -VQ scan unable to be performed due to patient being intubated -CTA head unable to be performed due to renal function and size -restarted on home eliquis -SCDs to bilateral lower extremity while in bed -Echocardiogram shows no right heart strain -Trend CBC -Transfuse for hemoglobin less than 7 -Bilateral lower extremity Doppler ultrasound negative for DVT The high probability of a clinically significant, sudden or life threatening deterioration of the [renal/pulm] system(s) required my full and direct attention, intervention and personal management. The aggregate critical care time was [60] minutes. This time is in addition to time spent performing reported procedures but includes the following: [x] Data Review and interpretation [x] Patient assessment and monitoring of vital signs [x] Documentation [x] Medication orders and management Disposition Plan: icu Total Time Spent with Patient (Minutes): 60 History Interval history: This is a 41-year-old male who has HTN, REVA and morbid obesity who presents to the emergency department on 05/23 via EMS for severe respiratory distress. Upon EMS arrival patient was found to be altered and sedated from bed to floor and reports noncompliant with CPAP/BiPAP. Patient received bag valve mask ventilation via nasal trumpet with EMS on route. Work-up in the emergency department included a CXR which showed [place] [address], elevated troponin at 0.038, elevated D-dimer, acute kidney injury, hyperkalemia and transaminitis. Patient was intubated in the emergency d epartment for for airway protection as he was reported to be obtunded and without a gag reflex. Patient did receive Narcan in the field by EMS however there was no reported affect. Hospital course to date: 05/24/2021: Patient intubated and sedated. VQ scan ordered secondary to elevated D-dimer. Cardiology consulted secondary to elevated troponin and elevated BNP. Echocardiogram ordered and pending. 05/25/2021: Patient still intubated. Responsive to commands. Hypotensive, norepinephrine increased to 15mcg. Unable to get V/Q scan due to body habitus. 05/26: Overnight patient experienced desaturation to the 80s and FiO2 was increased. This morning on ABG patient exhibited hypoxemia and FiO2 was unchanged. [facility] later increased PEEP and decrease FiO2. Nephrology was consulted due to no recovery in renal function noted. Urine lites were ordered. Hyperkalemia treated medically. 05/27: Patient remains sedated on fentanyl and propofol, [facility] will taper Solu- Medrol and repeat ABG in 1899. Patient received 40 mg of Lasix x1. Slight improvement to renal function noted 05/28: [facility] has started revatio for pulmonary hypertension, we will repeat Lasix today as patient had improvement in renal function. No acute events reported overnight. 05/29: 0 ABG with improved hypoxia, good UOP noted from lasix. Repeat labs for am. no acute events reported overnight 05/30: FWF decreased. Garcia catheter replaced due to sediment. Family updated today at bedside. 05/31: noted to have persistent tachycardia, given fent bolus without improvement. EKG showed ST, passive leg raise by RN showed decrease in tachycardia therefore given LR. Noted increase in Cr today. MIVF for 2 liters started by [facility]. 06/01/21- Remains intubated, sedation was increased this am due to agitation, Levo was initiated due to hypotension. Patient remains on IVF, D/C once current bag is completed. D/w [facility] plan to gently wean vent setting for SPO2 goal above 92%. 06/02/21- Patient remains on the vent, on max support this am. Per RN patient desated this am after he was turned, SPO2 was sustaining in the low 80s. Patient is also spiking temp, TMAX 101 this am, WBC wnl. Orders placed for stat CXR, blood cultureX2, and procal. Will hold off on AbX for now. Will continue to trend CBC, am labs ordered 06/03/21- Patient remains on the vent and sedated. High triglyceride level this am, propofol stopped and seroquel added BID. No fever overnight, wbcs remains stable, pending B.cult result. Continue to trend CBC 06/04/21- Patient remains on the vent, no longer on sedation. Easily arousable, follow commands at time. Persistent fever, wbcs remains stable, B.cultX2 pending, procal normal, ID consulted. 06/05/21- Patient remains on the vent on fentanyl gtt RASS -1. Back up to 100% Fio2 due to low SPO2 overnight, this am ABG noted, plan to wean FIO2 for a SPO2 goal abover 90%. Febrile overnight, continue current IV Abx per ID. 06/06/21- Patient remains on the vent on fentanyl gtt RASS 0 to -1. Back on pressors overnight due to hypotension, febrile TMAX 101.1, patient is on IV ABx and ID is on the case. Worsening in kidney function with hyperkalemia is also noted, X1 dose of kayaxalate given. Will continue to monitor renal function and electrolytes. Mom and sister at the bedside, were update on patient's conditions, all questions and concerns were voiced at this time. 06/07/21- Patient remains on the vent. In critical condition this am, on three pressors with severe metabolic acidosis, MAP remains in the 50s. Will placed Artline for hemodynamic monitoring. Worsen kidney function with hyperkalemia. Hyperkalemia was treated per protocol, d/w nephro plan for possible HD today. Will repeat BMP in 4hours. Sputum culture is positive for MRSA, due to kidney function VAnco was switched to Zyvox. will continue to monitor renal function and electrolytes. 06/08: Awaiting family decision regarding hemodialysis, renal function continues to worsen with decreased urine output, patient will continue cefepime and linezolid, chest ultrasound ordered with repeat ABG at 9 PM. 06/09: Family is agreeable to place vascath and for HD. Nephro aware. Remains on levo/vaso/colten for BP support. 06/10: Patient remains aphasic with support and sedated with fentanyl, patient is tachycardic and did not respond to IV push fentanyl. Repeat ABG in the p.m. RT decrease FiO2. Patient received hemodialysis today. Hospitalist Physical - Constitutional Vitals: Temp Pulse Resp BP Pulse Ox 100.0 F H 137 H 28 H 78/45 92 06/10/21 08:00 06/10/21 13:30 06/10/21 13:30 06/10/21 13:30 06/10/21 13:15 General appearance: Present: no acute distress, obese, other (Intubated and sedated) - EENT Eyes: Present: PERRL, EOM intact ENT: dentition normal - Neck Neck: Present: normal ROM - Respiratory Respiratory effort: normal Respiratory: bilateral: diminished - Cardiovascular Rhythm: regular Heart Sounds: Present: S1 & S2. Absent: systolic murmur, diastolic murmur - Extremities Extremities: no ischemia, pulses intact, pulses symmetrical Extremity abnormal: edema Peripheral Pulses: within normal limits - Abdominal General gastrointestinal: soft, non-tender, non-distended, normal bowel sounds - Integumentary Integumentary: Present: warm, dry - Psychiatric Psychiatric: other (sedated) - Neurologic Neurologic: CNII-XII intact, no focal deficits, moves all extremities - Allied Health Allied health notes reviewed: nursing, RT, social work HEART Score - HEART Score Troponin: Troponin T 0.038 ng/mL (0.00-0.029) H 05/23/21 15:09 Results - Labs CBC & Chem 7: 06/10/21 08:25 06/10/21 08:25 Labs: Laboratory Last Values WBC 13.9 K/mm3 (4.5-11.0) H 06/10/21 08:25 RBC 3.17 M/mm3 (3.65-5.03) L 06/10/21 08:25 Hgb 8.7 gm/dl (11.8-15.2) L 06/10/21 08:25 Hct 29.6 % (35.5-45.6) L 06/10/21 08:25 MCV 94 fl (84-94) 06/10/21 08:25 MCH 27 pg (28-32) L 06/10/21 08:25 MCHC 29 % (32-34) L 06/10/21 08:25 RDW 18.4 % (13.2-15.2) H 06/10/21 08:25 Plt Count 158 K/mm3 (140-440) 06/10/21 08:25 Lymph % (Auto) 6.2 % (13.4-35.0) L 06/03/21 04:10 [place] % (Auto) 13.1 % (0.0-7.3) H 06/03/21 04:10 Eos % (Auto) 3.2 % (0.0-4.3) 06/03/21 04:10 Baso % (Auto) 0.4 % (0.0-1.8) 06/03/21 04:10 Lymph # (Auto) 0.5 K/mm3 (1.2-5.4) L 06/03/21 04:10 [place]aves # (Auto) 1.1 K/mm3 (0.0-0.8) H 06/03/21 04:10 Eos # (Auto) 0.3 K/mm3 (0.0-0.4) 06/03/21 04:10 Baso # (Auto) 0.0 K/mm3 (0.0-0.1) 06/03/21 04:10 Add Manual Diff Complete 05/24/21 04:55 Total Counted 100 05/24/21 04:55 Seg Neutrophils % Galley Stripper 06/03/21 04:10 Seg Neuts % (Manual) 97.0 % (40.0-70.0) H 05/24/21 04:55 Lymphocytes % (Manual) 3.0 % (13.4-35.0) L 05/24/21 04:55 Nucleated RBC % Not Reportable 05/24/21 04:55 Seg Neutrophils # 6.2 K/mm3 (1.8-7.7) 06/03/21 04:10 Seg Neutrophils # Man 8.4 K/mm3 (1.8-7.7) H 05/24/21 04:55 Band Neutrophils # 0.0 K/mm3 05/24/21 04:55 Lymphocytes # (Manual) 0.3 K/mm3 (1.2-5.4) L 05/24/21 04:55 Abs React Lymphs (Man) 0.0 K/mm3 05/24/21 04:55 Monocytes # (Manual) 0.0 K/mm3 (0.0-0.8) 05/24/21 04:55 Eosinophils # (Manual) 0.0 K/mm3 (0.0-0.4) 05/24/21 04:55 Basophils # (Manual) 0.0 K/mm3 (0.0-0.1) 05/24/21 04:55 Metamyelocytes # 0.0 K/mm3 05/24/21 04:55 Myelocytes # 0.0 K/mm3 05/24/21 04:55 Promyelocytes # 0.0 K/mm3 05/24/21 04:55 Blast Cells # 0.0 K/mm3 05/24/21 04:55 WBC Morphology Not Reportable 05/24/21 04:55 Hypersegmented Neuts Not Reportable 05/24/21 04:55 Hyposegmented Neuts Not Reportable 05/24/21 04:55 Hypogranular Neuts Not Reportable 05/24/21 04:55 Smudge Cells Not Reportable 05/24/21 04:55 Toxic Granulation Not Reportable 05/24/21 04:55 Toxic Vacuolation Not Reportable 05/24/21 04:55 Dohle Bodies Not Reportable 05/24/21 04:55 Pelger-Huet Anomaly Not Reportable 05/24/21 04:55 Cynthia Rods Not Reportable 05/24/21 04:55 Platelet Estimate Consistent w auto 05/24/21 04:55 Clumped Platelets Not Reportable 05/24/21 04:55 Plt Clumps, EDTA Not Reportable 05/24/21 04:55 Large Platelets Not Reportable 05/24/21 04:55 Giant Platelets Not Reportable 05/24/21 04:55 Platelet Satelliting Not Reportable 05/24/21 04:55 Plt Morphology Comment Not Reportable 05/24/21 04:55 RBC Morphology Not Reportable 05/24/21 04:55 Dimorphic RBCs Not Reportable 05/24/21 04:55 Polychromasia Not Reportable 05/24/21 04:55 Hypochromasia Not Reportable 05/24/21 04:55 Poikilocytosis Not Reportable 05/24/21 04:55 Anisocytosis 1+ 05/24/21 04:55 Microcytosis Not Reportable 05/24/21 04:55 Macrocytosis Not Reportable 05/24/21 04:55 Spherocytes Not Reportable 05/24/21 04:55 Pappenheimer Bodies Not Reportable 05/24/21 04:55 Sickle Cells Not Reportable 05/24/21 04:55 Target Cells Not Reportable 05/24/21 04:55 Tear Drop Cells Not Reportable 05/24/21 04:55 Ovalocytes Not Reportable 05/24/21 04:55 Helmet Cells Not Reportable 05/24/21 04:55 [place] Bodies Not Reportable 05/24/21 04:55 [place] Rings Not Reportable 05/24/21 04:55 [place] Cells Not Reportable 05/24/21 04:55 Bite Cells Not Reportable 05/24/21 04:55 Crenated Cell Not Reportable 05/24/21 04:55 Elliptocytes Not Reportable 05/24/21 04:55 Acanthocytes (Spur) Not Reportable 05/24/21 04:55 Rouleaux Not Reportable 05/24/21 04:55 Hemoglobin C Crystals Not Reportable 05/24/21 04:55 Schistocytes Not Reportable 05/24/21 04:55 Malaria parasites Not Reportable 05/24/21 04:55 Uli Bodies Not Reportable 05/24/21 04:55 Hem Pathologist Commnt No 05/24/21 04:55 PT 15.3 Sec. (12.2-14.9) H 05/29/21 13:40 INR 1.09 (0.87-1.13) 05/29/21 13:40 APTT 25.7 Sec. (24.2-36.6) 05/29/21 13:40 D-Dimer 4444.85 ng/mlDDU (0-234) H 05/23/21 15:09 ABG pH 7.292 (7.320-7.450) L 06/09/21 21:52 POC ABG pCO2 48.4 mmHg (32.0-48.0) H 06/09/21 21:52 ABG pCO2 45.0 mm Hg 06/08/21 Unknown POC ABG pO2 67.1 mmHg (83-108) L 06/09/21 21:52 ABG pO2 78.8 mm Hg (80.0-90.0) L 06/08/21 Unknown POC ABG HCO3 22.9 06/09/21 21:52 ABG HCO3 21.2 mmol/L (20.0-26.0) 06/08/21 Unknown ABG O2 Saturation 92.2 (0-100) 06/09/21 21:52 ABG O2 Content 13.0 (0.0-44) 06/08/21 Unknown POC ABG Base Excess -3.7 06/09/21 21:52 ABG Base Excess -5.1 mmol/L (-2.0-3.0) L 06/08/21 Unknown ABG Hemoglobin 9.9 (12.0-17.5) L 06/09/21 21:52 ABG Oxyhemoglobin 91.7 (94-98) L 06/09/21 21:52 ABG Carboxyhemoglobin 1.3 % (0.0-5.0) 06/08/21 Unknown ABG Methemoglobin 0.3 (0.0-1.5) 06/09/21 21:52 ABG Sodium 133.5 mmol/L (136.0-145.0) L 06/09/21 21:52 ABG Potassium 4.8 mmol/L (3.40-4.50) H 06/09/21 21:52 ABG Chloride 105.0 mmol/L (98-107) 06/09/21 21:52 ABG Glucose 110 mg/dL (65-95) H 06/09/21 21:52 Oxyhemoglobin 93.1 % (95.0-99.0) L 06/08/21 Unknown Carboxyhemoglobin 0.2 (0.5-1.5) L 06/09/21 21:52 FiO2 95 % 06/08/21 Unknown FiO2 % 85.0 06/09/21 21:52 Sodium 138 mmol/L (137-145) 06/10/21 08:25 Potassium 4.7 mmol/L (3.6-5.0) 06/10/21 08:25 Chloride 99.1 mmol/L (98-107) 06/10/21 08:25 Carbon Dioxide 22 mmol/L (22-30) 06/10/21 08:25 Anion Gap 22 mmol/L 06/10/21 08:25 BUN 58 mg/dL (9-20) H 06/10/21 08:25 Creatinine 3.1 mg/dL (0.8-1.3) H 06/10/21 08:25 Estimated GFR 27 ml/min 06/10/21 08:25 BUN/Creatinine Ratio 19 % 06/10/21 08:25 Glucose 97 mg/dL (75-100) 06/10/21 08:25 POC Glucose 112 mg/dL (70-105) H 06/10/21 13:31 Lactic Acid 1.50 mmol/L (0.7-2.0) 05/23/21 15:09 Calcium 8.3 mg/dL (8.4-10.2) L 06/10/21 08:25 Phosphorus 5.90 mg/dL (2.5-4.5) H 06/09/21 04:00 Magnesium 2.30 mg/dL (1.7-2.3) 06/09/21 04:00 Total Bilirubin 3.40 mg/dL (0.1-1.2) H 06/10/21 08:25 AST 898 units/L (5-40) H 06/10/21 08:25 ALT 3037 units/L (7-56) H 06/10/21 08:25 Alkaline Phosphatase 123 units/L (35-129) 06/10/21 08:25 Ammonia 30.0 umol/L (25-60) 05/24/21 04:55 Total Creatine Kinase 48 units/L (55-170) L 05/23/21 15:09 Troponin T 0.038 ng/mL (0.00-0.029) H 05/23/21 15:09 C-Reactive Protein 10.00 mg/dL (0.00-1.30) H 05/23/21 19:10 NT-Pro-B Natriuret Pep 77540 pg/mL (0-450) H 05/23/21 15:09 Total Protein 6.8 g/dL (6.3-8.2) 06/10/21 08:25 Albumin 2.3 g/dL (3.9-5) L 06/10/21 08:25 Albumin/Globulin Ratio 0.5 % 06/10/21 08:25 Triglycerides 164 mg/dL (2-149) H 06/09/21 04:45 Cholesterol 106 mg/dL (50-199) 05/23/21 15:09 LDL Cholesterol Direct 58 mg/dL (50-130) 05/23/21 15:09 HDL Cholesterol 29 mg/dL (40-59) L 05/23/21 15:09 Cholesterol/HDL Ratio 3.65 % 05/23/21 15:09 Amylase 101 units/L (27-131) 06/08/21 04:20 Lipase 86 units/L (13-60) H 06/08/21 04:20 Procalcitonin 0.82 ng/mL (<0.15) 06/02/21 13:53 TSH 2.380 mlU/mL (0.270-4.200) 05/23/21 15:09 Arterial Blood Glucose 110 mg/dL (65-95) H 06/09/21 21:52 Arterial Blood Ionized Calcium 5.3 mg/dL (4.6-5.3) 06/07/21 09:48 Urine Color Yellow (Yellow) 06/04/21 13:39 Urine Turbidity Turbid (Clear) 06/04/21 13:39 Urine pH 5.0 (5.0-7.0) 06/04/21 13:39 Ur Specific [place] 1.015 (1.003-1.030) 06/04/21 13:39 Urine Protein 100 mg/dl mg/dL (Negative) 06/04/21 13:39 Urine Glucose (UA) Neg mg/dL (Negative) 06/04/21 13:39 Urine Ketones Neg mg/dL (Negative) 06/04/21 13:39 Urine Blood Mod (Negative) 06/04/21 13:39 Urine Nitrite Neg (Negative) 06/04/21 13:39 Urine Bilirubin Neg (Negative) 06/04/21 13:39 Urine Urobilinogen 2.0 mg/dL (<2.0) 06/04/21 13:39 Ur Leukocyte Esterase Neg (Negative) 06/04/21 13:39 Urine WBC (Auto) 17.0 /HPF (0.0-6.0) H 06/04/21 13:39 Urine RBC (Auto) > 182.0 /HPF (0.0-6.0) 06/04/21 13:39 U Epithel Cells (Auto) 7.0 /HPF (0-13.0) 06/04/21 13:39 Urine Bacteria (Auto) 1+ /HPF (Negative) 05/23/21 Unknown Amorphous Crystals 3+ 06/04/21 13:39 Urine Mucus Few /HPF 06/04/21 13:39 Ur Yeast w Hyphae Few /HPF 06/04/21 13:39 Urine Yeast (Budding) 3+ /HPF 06/04/21 13:39 Urine Eosinophils 2+ (None Seen) 05/26/21 12:37 Urine Osmolality 612 Mosm/kg 05/26/21 Unknown Urine Creatinine 222.7 mg/dL (0.1-20.0) H 06/06/21 13:30 Protein/Creatinin Ratio 1.01 05/26/21 12:37 Urine Sodium 18 mmol/L 06/06/21 13:30 Urine Potassium 45.15 mmol/L 05/26/21 Unknown Urine Urea Nitrogen 989 05/26/21 Unknown Urine Total Protein 80 mg/dL (5-11.8) H 05/26/21 12:37 Nasal Screen MRSA (PCR) Positive (Negative) 05/30/21 12:00 Salicylates < 0.3 mg/dL (2.8-20.0) L 05/23/21 15:09 Urine Opiates Screen Negative 05/23/21 Unknown Urine Methadone Screen Negative 05/23/21 Unknown Acetaminophen 5.0 ug/mL (10.0-30.0) L 05/23/21 15:09 Ur Barbiturates Screen Negative 05/23/21 Unknown Ur Phencyclidine Scrn Negative 05/23/21 Unknown Ur Amphetamines Screen Negative 05/23/21 Unknown U Benzodiazepines Scrn Negative 05/23/21 Unknown Urine Cocaine Screen Negative 05/23/21 Unknown U Marijuana (THC) Screen Negative 05/23/21 Unknown Drugs of Abuse Note Disclamer 05/23/21 Unknown Plasma/Serum Alcohol < 0.01 % (0-0.07) 05/23/21 15:09 Coronavirus (PCR) Negative (Negative) 05/23/21 Unknown Hepatitis A IgM Ab Non-reactive (NonReactive) 06/09/21 14:51 Hep Bs Antigen Nonreactive (Negative) 06/09/21 14:51 Hep B Core IgM Ab Non-reactive (NonReactive) 06/09/21 14:51 Hepatitis C Antibody Non-reactive (NonReactive) 06/09/21 14:51 Blood Type O POSITIVE 05/23/21 15:01 Antibody Screen Negative 05/23/21 15:01 Garcia/IV: Voiding Method Indwelling Catheter Active Medications - Current Medications Current Medications: Generic Name Dose Route Start Last Admin Trade Name Freq PRN Reason Stop Dose Admin Acetaminophen 650 mg 05/23/21 20:42 06/06/21 22:42 Acetaminophen 325 Mg Tab PO 650 mg Q4H PRN Administration Pain MILD(1-3)/Fever >100.5/CASTORENA Albuterol 2.5 mg 05/23/21 21:11 Albuterol 2.5 Mg/3 Ml Nebu IH Q4HRT PRN Shortness Of Breath Albuterol/Ipratropium 1 ampul 05/29/21 08:00 06/10/21 09:10 Ipratropium/Albuterol Sulfate 3 Ml Ampul.Neb IH 1 ampul TIDRT RSOEMARIE Administration Lipase/Protease/Amylase 1 each 05/24/21 10:14 Lipase 10,500/Protease 25,000/Amylase 43,750 (Units) Dr Higgins FEEDTUBE PRN PRN For Clogged Feeding Tube Apixaban 2.5 mg 05/29/21 13:00 06/10/21 09:26 Apixaban 2.5 Mg Tab PO 2.5 mg Q12HR ROSEMARIE Administration Protocol Dextrose 50 ml 06/08/21 10:33 Dextrose 50% In Water (25gm) 50 Ml Syringe IV Q30MIN PRN Hypoglycemia Protocol Famotidine 10 mg 06/06/21 22:00 06/10/21 09:25 Famotidine 20 Mg Tab FEEDTUBE 10 mg BID ROSEMARIE Administration Fentanyl 50 mcg 06/10/21 10:58 Fentanyl 100 Mcg/2 Ml Inj IV Q10MIN PRN ANALGESIA Hydrophilic Ointment 1 applic 05/23/21 12:34 Lip Therapy Vaseline TP Q2HR PRN Dry Lips Cefepime HCl 2 gm in 100 mls @ 200 mls/hr 06/07/21 04:00 06/10/21 04:41 Cefepime/Ns 2 Gm/100 Ml IV 200 mls/hr Q24H ROSEMARIE Administration Protocol Sodium Chloride 500 mls @ 1 mls/hr 06/06/21 13:40 06/06/21 14:18 Nacl 0.9% 500 Ml IV 1 mls/hr DIRECT PRN Administration ARTERIAL LINE FLUSH Vasopressin 20 unit/ Sodium 101 mls @ 9.09 mls/hr 06/06/21 15:00 06/10/21 06:34 Chloride IV 0.03 units/min TITR ROSEMARIE 9.09 mls/hr Administration Protocol 0.03 UNITS/MIN Phenylephrine HCl 100 mg/ 100 mls @ 3 mls/hr 06/06/21 19:00 06/10/21 13:57 Sodium Chloride IV 180 mcg/min TITR ROSEMARIE 10.8 mls/hr Titration Protocol 50 MCG/MIN NORepinephrine/NS 8 MG-250 ML 8 mg in 250 mls @ 3.75 mls/hr 06/07/21 09:00 06/10/21 13:54 Norepinephrine/Ns 8 Mg-250 Ml (Double Conc) IV 18 mcg/min TITRATE ROSEMARIE 33.75 mls/hr Titration Protocol 2 MCG/MIN Linezolid 600 mg in 300 mls @ 300 mls/hr 06/07/21 14:00 06/10/21 02:15 Zyvox 600mg/300ml IV 300 mls/hr Q12H ROSEMARIE Administration Protocol Propofol 1,000 mg in 100 mls @ 3.018 mls/hr 06/07/21 15:00 06/08/21 20:00 Diprivan 10 Mg/Ml IV 5 mcg/kg/min TITR ROSEMARIE 3.018 mls/hr Titration Protocol 5 MCG/KG/MIN Fentanyl Citrate 2,000 mcg in 100 mls @ 9.05 mls/hr 06/10/21 11:00 Fentanyl Drip Premix IV TITR ROSEMARIE Protocol 1 MCG/KG/HR Insulin Human Regular 0 units 06/08/21 12:00 06/10/21 13:34 Insulin Regular, Human 100 Units/1 Ml SUB-Q Not Given Q6H ROSEMARIE Protocol Multi-Ingred Cream/Lotion/Oil/Oint 1 applic 05/23/21 12:34 05/30/21 22:14 Mineral Oil/Petrolatum, White Ophth Oint 3.5 Gm OU 1 applic Q4HR PRN Administration Dry Eye(s) Ondansetron HCl 4 mg 05/23/21 20:42 Ondansetron 4 Mg/2 Ml Inj IV Q8H PRN Nausea And Vomiting Quetiapine Fumarate 100 mg 06/03/21 22:00 06/10/21 09:25 Quetiapine 100 Mg Tab PO 100 mg BID ROSEMARIE Administration Senna/Docusate Sodium 1 tab 05/23/21 22:00 06/10/21 09:26 Sennosides/Docusate Sodium 8.6/50 Mg Tab FEEDTUBE 1 tab BID ROSEMARIE Administration Simple Syrup 15 ml 05/24/21 10:14 Simple Syrup 15 Ml FEEDTUBE PRN PRN Hypoglycemia Simple Syrup 30 ml 05/24/21 10:14 Simple Syrup 15 Ml FEEDTUBE PRN PRN Hypoglycemia Sodium Bicarbonate 325 mg 05/24/21 10:14 Sodium Bicarbonate 325 Mg Tab FEEDTUBE PRN PRN For Clogged Feeding Tube Sodium Chloride 10 ml 05/23/21 22:00 06/10/21 09:29 Sodium Chloride 0.9% 10 Ml Flush Syringe IV 10 ml BID ROSEMARIE Administration Sodium Chloride 10 ml 05/23/21 20:42 Sodium Chloride 0.9% 10 Ml Flush Syringe IV PRN PRN LINE FLUSH Nutrition/Malnutrition Assess - Dietary Evaluation Nutrition/Malnutrition Findings: Nutrition Notes Start: 05/24/21 09:53 Freq: Status: Active Protocol: Document 06/09/21 14:19 RYANJASSI (Rec: 06/09/21 14:37 ALICIA [id number]) Nutrition Notes Initial or Follow up Reassessment Current Diagnosis Hypertension,Respiratory Failure Other Pertinent Diagnosis Acute metabolic encephalopathy , ARF, Hypotension, RUL pneu Current Diet TF - Nepro at 45ml/hr Labs/Tests BUN 84 Cr 3.7 Triglycerides 164 Phos 5.9 Pertinent Medications Levophed gtt, Phenylephrine gtt, Vasopressin gtt, Propofol at 3.018ml/hr (provides 80 kcal), Na bicarb in D5 at 100ml/hr (provides 408 kcal) Height 5 ft 8 in Weight 181 kg [place] Body Weight (kg) 70.00 BMI 60.6 Weight Status Morbidly Obese Subjective/Other Information Pt remains on vent support. Renal function worsening; family consented to placement of VasCath and starting HD. Spoke with pt's RN via phone ( 12:55); TF been off since sec to increased gastric residuals and hypotension (pt on three pressors). Burn Absent Trauma Absent GI Symptoms Other Minimum of two criteria No #1 Nutrition Diagnosis Swallowing difficulty Etiology mech ventilation As Evidenced by Signs and Symptoms pt NPO Diagnosis Progress(for reassessment Continues documentation) Is patient on ventilator? Yes Is Patient Ambulatory and/or Out of Bed No REE-([facility]-confined to bed) 0897.356 Kcal/Kg value to use for calculation 11 Approximate Energy Requirements Using 1991 kcal/Kg Calculation Used for Recommendations Kcal/kg Additional Notes Pro needs >1.2g/kg adjBW: > 126g/day Fluid needs per MD Nutrition Intervention Nutrition Support: Resume TF when medically feasible Follow-Up By: 06/12/21 Additional Comments F/U: Vent status, HD/renal function, pressor support, TF re-start, wt
[2021-06-10] MEDS ORDERED: ADENOSINE 6 MG/2 ML INJ ONE (17:11)
[2021-06-10] MEDS ORDERED: SODIUM CHLORIDE 0.9% 1000 ML 1,000 ML ONE (17:15)
[2021-06-10] MEDS ORDERED: ALBUMIN HUMAN 25% (25 GM/100 ML) INJ IV ONE (17:32)
[2021-06-10] MEDS ORDERED: METOPROLOL TARTRATE 5 MG/5 ML INJ IV PRN (17:38)
--- NOTE | 2021-06-10 17:51 | Event Note ---
Date: 06/10/21 Proximally 5:00 patient was noted to have heart rate of 180s, vasovagaled and heart rate decreased into the 120-130s did not sustain. Blood pressure noted to be in the 50s/60s Levophed and epinephrine were increased. Twelve-lead EKG run which showed SVT Dr. Chiu and Dr. Ramsey contacted. Dr Ramsey ordered 500 mL bolus and maintenance IV fluid for 500 mL @75 an hour which were ordered. Bedside monitor showed what appeared to be A. fib and another twelve-lead ECG was read which showed SVT. Dr. Alcantar contacted and ECG transferred to him. New orders received for Lovenox 90 mg twice daily, discontinue Eliquis 2.5 mg twice daily, diltiazem 30 mg every 6 hours scheduled and Lopressor 2.5 mg for sustained heart rate greater than 150 every 6 hours as needed. Orders entered. Dr. Baker also aware of current events and ordered an albumin bolus. CCT 45 mins CCT not included in daily CCT
[2021-06-10] MEDS ORDERED: SODIUM CHLORIDE 0.9% 1000 ML 500 ML IV SCH (18:00)
[2021-06-10] MEDS ORDERED: dilTIAZem 30 MG TAB PO SCH (18:00)
[2021-06-10] MEDS ORDERED: SODIUM CHLORIDE 0.9% 1000 ML 500 ML IV ONE (18:00)
[2021-06-10] MEDS ORDERED: SODIUM BICARB 8.4% 50 MEQ/50 ML SYRINGE IV ONE (18:23)
[2021-06-10] MEDS ORDERED: EPINEPHrine 1 MG/10 ML SYRINGE ONE (18:23)
--- NOTE | 2021-06-10 18:44 | Death Summary ---
Summary - Providers Date of service: 06/10/21 Consults: 05/23/21 12:34 Consult to Dietitian/Nutrition [CONS] Routine Physician Instructions: Reason For Exam: Reason for Consult: Write/Manage Tube Feeding Consult to Physician [CONS] Stat Comment: Consulting Provider: CHASE BASS Physician Instructions: Reason For Exam: acute resp failure 05/24/21 06:33 Consult to Physician [CONS] Routine Comment: Consulting Provider: ERIK GUARDADO Physician Instructions: Reason For Exam: CHF 05/24/21 06:36 Consult to Wound/ET Nurse [CONS] Routine Reason For Exam: wound eval 05/24/21 15:23 PICC Line Placement [Consult to PICC Line RN] [CONS] Urgent Reason For Exam: sepsis Type Line:: PICC 05/26/21 09:20 Consult to Physician [CONS] Routine Comment: spoke todr. luke/ deyanira Consulting Provider: JAZZMINE LUKE Physician Instructions: Reason For Exam: lam 06/04/21 11:51 Consult to Physician [CONS] Routine Comment: spoke to Denise/Rashmi Consulting Provider: DEVONTE SIDDIQUI Physician Instructions: Reason For Exam: Persistent Fever Attending: TATO BAKER MD - summary Date of admission: 05/23/21 17:43 Date of : 06/10/21 Reason for admission: Acute toxic metabolic encephalopathy, acute on possibly chronic hypoxemic a Significant findings: This is a 41-year-old male who has HTN, REVA and morbid obesity who presents to the emergency department on 05/23 via EMS for severe respiratory distress. Upon EMS arrival patient was found to be altered and sedated from bed to floor and reports noncompliant with CPAP/BiPAP. Patient received bag valve mask ventilation via nasal trumpet with EMS on route. Work-up in the emergency department included a CXR which showed [place] [address], elevated troponin at 0.038, elevated D-dimer, acute kidney injury, hyperkalemia and transaminitis. Patient was intubated in the emergency department for for airway protection as he was reported to be obtunded and without a gag reflex. Patient did receive Narcan in the field by EMS however there was no reported affect. VQ scan was ordered and CTA chest secondary to elevated D-dimer however was unable to be obtained. Patient was hypotensive and on Levophed for blood pressure support however was eventually able to be weaned off. Patient was intubated and remained amatory support throughout his stay. Patient was diuresed initially and then eventually developed acute kidney injury and required dialysis. Patient was eventually placed on Levophed, vasopressin and phenyl epinephrine for blood pressure support. Patient was on antibiotic therapy and eventually was switched to cefepime and linezolid due to MRSA. After 2 days family eventually agreed to proceed with hemodialysis. Patient was started on hemodialysis on 06/09. Today the patient was tachycardic and cardiology was made aware who ordered Cardizem and Lopressor as needed. Patient received normal saline bolus with albumin for hypotension. Unfortunately patient developed cardiac arrest. Unfortunately ROSC was not able to be achieved and time of was called by Dr. Chiu at bedside. Family to be informed by Dr. Chiu. Dr. Baker and Dr. Ramsey informed. Acute metabolic encephalopathy Hypotension possible CHF h/o HTN Acute possibly on chronic hypoxemic and hypercapnic respiratory failure ARDS, h/o sleep apnea Transaminitis Possible shock liver morbid obesity Acute renal failure secondary to vasomotor nephropathy requiring MRSA CAP Elevated D-dimer h/o PE/DVT
--- NOTE | 2021-06-10 18:55 | Event Note ---
Date: 06/10/211822 patient noted to be in cardiac arrest and PEA on monitor. ACLS was initiated. Patient received 4 mg of epinephrine and 2 ampoules of bicarbonate. Patient was maxed on norepinephrine, phenyl epinephrine and vasopressin. Patient was bagged throughout the cardiac arrest by respiratory therapist. Multiple nurses at bedside. Dr. Chiu at bedside throughout the code. Eventually ROSC was not obtained and the patient . Time of called by Dr. Chiu. Family to be called by Dr. Chiu. CCT: 30 min 1
--- NOTE | 2021-06-10 19:16 | Event Note ---
Date: 06/10/21 CODE RENETTA was called at 1823 hrs. ACLS protocol initiated. Patient could not be revived. Time of expiration [address] physician [address]. Hill--- myself Certifying physician is going to be Dr. Berhane Baker
[2021-06-10 19:36] VITALS: BP 117/79
[2021-06-10] MEDS ORDERED: QUEtiapine 100 MG TAB PO SCH (22:00)
[2021-06-10] MEDS ORDERED: ENOXAPARIN 80 MG/0.8 ML INJ SUB-Q SCH (22:00)
--- NOTE | 2021-06-11 10:44 | Electrocardiograph Report ---
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
--- NOTE | 2021-06-12 09:01 | Electrocardiograph Report ---
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
== END 2021-06-10 18:39 | DRG 207 ==
LOC: ED 12:15 → CC1 17:43
PROVIDERS: ADMIT Internal Medicine; ATTEND Internal Medicine
PROC: 4A033R1 Measurement of Arterial Saturation, Peripheral, Percutaneous Approach (ICD-10-PCS; 2021-05-23)
PROC: 05HQ33Z Insertion of Infusion Device into Left External Jugular Vein, Percutaneous Approach (ICD-10-PCS; 2021-05-25)
PROC: 5A1955Z Respiratory Ventilation, Greater than 96 Consecutive Hours (ICD-10-PCS; principal; 2021-05-29)
PROC: 0BH17EZ Insertion of Endotracheal Airway into Trachea, Via Natural or Artificial Opening (ICD-10-PCS; 2021-05-29)
PROC: 03H Upper Arteries, Insertion (ICD-10-PCS; 2021-06-07)
PROC: 5A1D70Z Performance of Urinary Filtration, Intermittent, Less than 6 Hours Per Day (ICD-10-PCS; 2021-06-09)
PROC: 05HM33Z Insertion of Infusion Device into Right Internal Jugular Vein, Percutaneous Approach (ICD-10-PCS; 2021-06-09)
PROC: B543ZZA Ultrasonography of Right Jugular Veins, Guidance (ICD-10-PCS; 2021-06-09)
PROC: 5A1D70Z Performance of Urinary Filtration, Intermittent, Less than 6 Hours Per Day (ICD-10-PCS; 2021-06-10)
DX: J18.9 Pneumonia, unspecified organism (principal); J96.01 Acute respiratory failure with hypoxia; N17.0 Acute kidney failure with tubular necrosis; G92.8 Other toxic encephalopathy; I21.4 Non-ST elevation (NSTEMI) myocardial infarction; J80 Acute respiratory distress syndrome; R65.10 Systemic inflammatory response syndrome (SIRS) of non-infectious origin without acute organ dysfunction; Z68.43 Body mass index [BMI] 50.0-59.9, adult; E72.20 Disorder of urea cycle metabolism, unspecified; E66.01 Morbid (severe) obesity due to excess calories; Z20.822 Contact with and (suspected) exposure to COVID-19; E87.5 Hyperkalemia; I95.9 Hypotension, unspecified; I50.9 Heart failure, unspecified; I11.0 Hypertensive heart disease with heart failure; Z86.718 Personal history of other venous thrombosis and embolism; Z86.711 Personal history of pulmonary embolism
CPT/HCPCS: 36415; 36600; 70450; 71045; 72125; 76604; 76705; 80048; 80053; 80061; 80074; 80307; 80320; 81001; 82140; 82150; 82550; 82565; 82570; 82803; 82805; 82962; 83690; 83735; 83880; 83935; 84100; 84133; 84145; 84156; 84300; 84443; 84478; 84484; 84520; 85007; 85025; 85027; 85379; 85610; 85730; 86140; 86850; 86900; 86901; 87040; 87070; 87076; 87086; 87186; 87205; 87641; 89050; 90715; 93005; 93306; 93970; 94002; 94003; 94640; G0378; J2354; J3490; Q0162; Q9967; G0480; J0153; J0171; J0456; J0610; J0692; J0696; J1644; J1815; J1940; J2020; J2370; J2704; J2920; J2930; J3010; J3370; J7030; J7040; J7050; J7070; J7120; P9047; U0003